=== PATIENT | female | born 1940 | race Caucasian/White ===

== ENCOUNTER 2016-09-21 08:16 | Inpatient (IN) | payer OTHER ==
[~2016-09-21] VITALS: Ht 170.2 cm; Wt 136.1 kg
[2016-09-21] VITALS (17 sets, daily range): BP systolic 88–136; BP diastolic 36–99
[2016-09-21] MEDS ORDERED: LORazepam Inj 2mg/ml 1ml ONE (08:21)
[2016-09-21] MEDS ORDERED: LORazepam Inj 2mg/ml 1ml IV ONE (08:30)
[2016-09-21 08:34] LABS: BASOPHILS % (AUTO) 0.4 % (0.0-2.0); EOSINOPHILS % (AUTO) 2.2 % (0.0-3.0); LYMPHOCYTES % (AUTO) 9.8 % (20.0-45.0); MEAN CORPUSCULAR HGB CONC 32.3 G/DL (32.0-36.0); MEAN CORPUSCULAR VOLUME 102 FL (80-99); MEAN PLATELET VOLUME 8.1 FL (6.5-10.1); MONOCYTES % (AUTO) 6.9 % (1.0-10.0); NEUTROPHILS % (AUTO) 80.6 % (45.0-75.0); PLATELET COUNT 316 K/UL (150-450); RED BLOOD COUNT 2.81 M/UL (4.20-5.40); WHITE BLOOD COUNT 8.6 K/UL (4.8-10.8)
[2016-09-21] MEDS ORDERED: Midazolam 2mg/2ml Inj ONE (08:37)
[2016-09-21] MEDS ORDERED: levETIRAcetam 500mg vial IV ONE (08:37)
[2016-09-21] MEDS ORDERED: Tubing IV Cassette IV ONE (08:48)
[2016-09-21] MEDS ORDERED: Tubing IV Secondary IV ONE (08:48)
[2016-09-21 08:53] LABS: INR 1.1 (0.9-1.1); PROTHROMBIN TIME 10.7 SEC (9.30-11.50)
[2016-09-21 08:55] LABS: APPEARANCE,URINE CLEAR; KETONES,URINE NEGATIVE (NEGATIVE); LEUKOCYTE ESTERASE ,URINE 1+ (NEGATIVE); NITRITE,URINE NEGATIVE (NEGATIVE); PH,URINE 7 (4.5-8.0); PROTEIN,URINE NEGATIVE (NEGATIVE); UROBILINOGEN,URINE NORMAL MG/DL (0.0-1.0)
[2016-09-21 08:58] LABS: ALANINE AMINOTRANSFERASE 22 U/L (3-33); ALBUMIN/GLOBULIN RATIO 0.7 (1.0-2.7); ANION GAP 8 (5-15); ASPARTATE AMINO TRANSFERASE 44 U/L (5-40); CALCIUM 9.8 mg/dL (8.6-10.2); CHLORIDE 91 mEQ/L (98-107); CREATININE 0.3 mg/dL (0.5-0.9); HEMOLYSIS 0; LIPASE 16 U/L (< 60); MAGNESIUM 1.7 mg/dL (1.7-2.5); PHOSPHORUS 3.3 mg/dL (2.5-4.8); POTASSIUM 2.8 mEQ/L (3.4-4.9); SODIUM 140 mEQ/L (135-145); TOTAL PROTEIN 7.2 g/dL (6.6-8.7); TROPONIN I < 0.30 ng/mL (<=0.30)
[2016-09-21 09:00] LABS: CARBON DIOXIDE 41 mEQ/L (20-30)
[2016-09-21] MEDS ORDERED: levETIRAcetam 1,000 MG in D5W 100 ML IVPB ONE (09:00)
[2016-09-21 09:01] LABS: BACTERIA,URINE OCCASIONAL /HPF; RBC,URINE 0-2 /HPF (0 - 2); SQUAMOUS EPITHELIAL CELL,UR OCCASIONAL /LPF (NONE/OCC)
[2016-09-21 09:09] LABS: CKMB < 1.5 ng/mL (< 3.8)
--- NOTE | 2016-09-21 09:55 | Diagnostic Imaging Report ---
Indication: Seizure Technique: Contiguous 5 mm thick transaxial imaging of the head obtained in a Siemens Sensation [address] scanner. Soft tissue and bone windows generated. Total Dose length Product (DLP): [address] Dose Index Volume (CTDIvol): 70.38 mGy Comparison: none Findings: There is mild prominence of the ventricles, basal cisterns, and cerebral sulci consistent with atrophy. Mild, nonspecific, white matter hypoattenuation is noted throughout the brain consistent with chronic small vessel disease. There is no midline shift, edema, acute hemorrhage, mass effect, or abnormal extra-axial fluid collections. There is unusual calvarial thinning along the parietal aspect of the cranial vault bilaterally. The diploic space is absent in these 2 areas, which show coverage of the brain by thin layer of cortical bone. The etiology of this finding is unknown but may be on the basis of previous remote surgery. Impression: No acute intracranial bleed, mass effect or edema. Mild atrophy of the brain. Nonspecific white matter hypoattenuation probably due to chronic small vessel disease. The CT scanner at [facility] is accredited by the [employer] and the scans are performed using protocols designed to limit radiation exposure to as low as reasonably achievable to attain images of sufficient resolution adequate for diagnostic evaluation.
--- NOTE | 2016-09-21 10:08 | Emergency Room Report ---
History of Present Illness General Chief Complaint: Seizure Source: Medical Record Present Illness HPI Patient was brought into the emergency room by paramedics from nursing facility patient was reported to have a seizure activity Reportedly the patient was given Ativan which did improve his symptoms However in route the patient was seizing paramedics were unable to obtain IV access And patient was brought in with active seizure No reports of vomiting or diarrhea Patient herself is not verbal Is on a ventilator Patient has a tracheostomy in place History of present illness is limited Unknown regarding fever or rash Allergies: Coded Allergies: No Known Allergies (Unverified , 09/21/16) Patient History Limited by: medical condition Past Medical History: see triage record Pertinent Family History: unable to obtain Reviewed Nursing Documentation: PMH: Agreed, PSxH: Agreed Nursing Documentation-PMH Past Medical History: No History, Except For Hx Cardiac Problems: Yes - STEMI anemia functional quadriplegia Hx COPD: Yes - trach Hx Cancer: Yes - breast cancer Hx Gastrointestinal Problems: Yes - G tube Hx Seizures: Yes - epilepsy Review of Systems All Other Systems: limited - Other than the ones mentioned in the history of present illness all others are reviewed however they do stay limited due to the patient's mental status Physical Exam Vital Signs Date Time Temp Pulse Resp B/P Pulse Ox O2 Delivery O2 Flow Rate FiO2 09/21/16 08:16 104 28 168/69 100 Mechanical Ventilator 09/21/16 08:16 40 09/21/16 08:30 99.0 Sp02 EP Interpretation: reviewed, normal General Appearance: severe distress - Patient has facial twitching and questionably active seizure, Head: normocephalic, atraumatic Eyes: bilateral eye PERRL - Sluggishly reactive ENT: normal pharynx, no angioedema Neck: supple, thyroid normal Respiratory: no retraction, no accessory muscle use, crackles - Diffusely in both lower lobes Cardiovascular #1: regular rate, rhythm, other - Dependent edema Gastrointestinal: soft, no mass, other - Patient has a drain tube on the right side, from a what appears to be likely cholecystectomy Musculoskeletal: other - Patient is unresponsive does not move extremities, there is no withdrawal from physical stimuli Neurologic: other - Significantly decreased GCS, patient does not follow commands, there is no obvious response to stimuli verbally or physically Skin: no rash, warm/dry Lymphatic: no adenopathy Procedures Critical Care Time Critical Care Time 40 minutes for multiple re\re evaluations vertical presentation Not including any procedural time Medical Decision Making Diagnostic Impression: Primary Impression: Status epilepticus Additional Impression: Hypokalemia ER Course Patient's presentation is concerning for status epilepticus patient is on a ventilator and therefore aggressive benzo intervention is made Patient also started on a keppra drip Patient's potassium level is significantly low Potentially causing some of the muscle skeletal pathology Patient has also observed to become controlled with medications However one sustained his blood pressure cuff or initiated with the patient stimulated again begins having the facial twitching CT head did not show any acute disease patient admitted for further inpatient care Labs Test 09/21/16 08:20 09/21/16 08:35 White Blood Count 8.6 K/UL (4.8-10.8) Red Blood Count 2.81 M/UL (4.20-5.40) Hemoglobin 9.3 G/DL (12.0-16.0) Hematocrit 28.7 % (37.0-47.0) Mean Corpuscular Volume 102 FL (80-99) Mean Corpuscular Hemoglobin 33.0 PG (27.0-31.0) Mean Corpuscular Hemoglobin Concent 32.3 G/DL (32.0-36.0) Red Cell Distribution Width 17.0 % (11.6-14.8) Platelet Count 316 K/UL (150-450) Mean Platelet Volume 8.1 FL (6.5-10.1) Neutrophils (%) (Auto) 80.6 % (45.0-75.0) Lymphocytes (%) (Auto) 9.8 % (20.0-45.0) Monocytes (%) (Auto) 6.9 % (1.0-10.0) Eosinophils (%) (Auto) 2.2 % (0.0-3.0) Basophils (%) (Auto) 0.4 % (0.0-2.0) Prothrombin Time 10.7 SEC (9.30-11.50) Prothromb Time International Ratio 1.1 (0.9-1.1) Activated Partial Thromboplast Time 30 SEC (23-33) Sodium Level 140 mEQ/L (135-145) Potassium Level 2.8 mEQ/L (3.4-4.9) Chloride Level 91 mEQ/L (98-107) Carbon Dioxide Level 41 mEQ/L (20-30) Anion Gap 8 (5-15) Blood Urea Nitrogen 9 mg/dL (7-23) Creatinine 0.3 mg/dL (0.5-0.9) Estimat Glomerular Filtration Rate mL/min (>60) Glucose Level 114 mg/dL (74-106) Lactic Acid Level 1.50 mmol/L (0.66-2.22) Calcium Level 9.8 mg/dL (8.6-10.2) Phosphorus Level 3.3 mg/dL (2.5-4.8) Magnesium Level 1.7 mg/dL (1.7-2.5) Total Bilirubin 0.3 mg/dL (0.0-1.2) Aspartate Amino Transf (AST/SGOT) 44 U/L (5-40) Alanine Aminotransferase (ALT/SGPT) 22 U/L (3-33) Alkaline Phosphatase 177 U/L (35-104) Total Creatine Kinase 89 U/L (26-140) Creatine Kinase MB < 1.5 ng/mL (< 3.8) Creatine Kinase MB Relative Index Troponin I < 0.30 ng/mL (<=0.30) Pro-B-Type Natriuretic Peptide 323 pg/mL (0-450) Total Protein 7.2 g/dL (6.6-8.7) Albumin 3.1 g/dL (3.5-5.2) Globulin 4.1 g/dL Albumin/Globulin Ratio 0.7 (1.0-2.7) Lipase 16 U/L (< 60) Urine Color Pale yellow Urine Appearance Clear Urine pH 7 (4.5-8.0) Urine Specific [place] 1.005 (1.005-1.035) Urine Protein Negative (NEGATIVE) Urine Glucose (UA) Negative (NEGATIVE) Urine Ketones Negative (NEGATIVE) Urine Occult Blood Negative (NEGATIVE) Urine Nitrite Negative (NEGATIVE) Urine Bilirubin Negative (NEGATIVE) Urine Urobilinogen Normal MG/DL (0.0-1.0) Urine Leukocyte Esterase 1+ (NEGATIVE) Urine RBC 0-2 /HPF (0 - 2) Urine WBC 2-4 /HPF (0 - 2) Urine Squamous Epithelial Cells Occasional /LPF Urine Bacteria Occasional /HPF (NONE) Rhythm Strip Diag. Results EP Interpretation: yes Rate: 77 Rhythm: NSR, no PVC's, no ectopy Chest X-Ray Diagnostic Results EP Interpretation: Yes Findings: no consolidation, no effusion, no pneumothorax, other - cardiomegaly Number of Views: 1 CT/MRI/US Diagnostic Results CT/MRI/US Diagnostic Results : Impression CT head no acute disease Last Vital Signs Date Time Temp Pulse Resp B/P Pulse Ox O2 Delivery O2 Flow Rate FiO2 09/21/16 09:50 107 45 Mechanical Ventilator 40 09/21/16 09:20 90/38 100 09/21/16 08:30 99.0 Status: improved Disposition: ADMITTED INPATIENT Condition: Critical Referrals: ANGELA DAVILA (PCP) LAURA GEORGES D.O. Sep 21, 2016 10:08
[2016-09-21] MEDS ORDERED: FEMARA2.5 MG ORAL (10:17)
[2016-09-21] MEDS ORDERED: NORCO 5-325 TA1 EAC1 GT (10:17)
[2016-09-21] MEDS ORDERED: NITROSTAT0.4 M2 SL (10:17)
[2016-09-21] MEDS ORDERED: VITAMIN D400 INTLU GT (10:17)
[2016-09-21] MEDS ORDERED: FUROSEMIDE20 M1 GT (10:17)
[2016-09-21] MEDS ORDERED: TYLENOL650 MG/20. GT (10:17)
[2016-09-21] MEDS ORDERED: LEVOTHYROXINE25 MCG GT (10:17)
[2016-09-21] MEDS ORDERED: BISACODYL10 M1 RC (10:17)
[2016-09-21] MEDS ORDERED: DUONEB 0.5-3(2.53 ML HHN (10:17)
[2016-09-21] MEDS ORDERED: LEVETIRACETAM500 MG GT (10:26)
[2016-09-21] MEDS ORDERED: DILANTIN50 MG GT (10:26)
[2016-09-21] MEDS ORDERED: IRON325 M2 GT (10:28)
[2016-09-21] MEDS ORDERED: Norco 5mg/325mg tab GT PRN (11:00)
[2016-09-21] MEDS ORDERED: Morphine Sulfate 2mg/ml Inj IVP PRN (11:00)
[2016-09-21] MEDS ORDERED: Miralax 17gm pkt ORAL PRN (11:00)
[2016-09-21] MEDS ORDERED: Zolpidem 5mg tab ORAL PRN (11:00)
[2016-09-21] MEDS ORDERED: Mylanta II UD 30ml ORAL PRN (11:00)
--- NOTE | 2016-09-21 11:37 | Neurology Progress Note ---
Objective Physical Exam Last Vital Signs Date Time Temp Pulse Resp B/P Pulse Ox O2 Delivery O2 Flow Rate FiO2 09/21/16 10:55 99.0 91 15 109/45 100 Mechanical Ventilator 40 Laboratory Tests Test 09/21/16 08:20 09/21/16 08:35 White Blood Count 8.6 K/UL (4.8-10.8) Red Blood Count 2.81 M/UL (4.20-5.40) L Hemoglobin 9.3 G/DL (12.0-16.0) L Hematocrit 28.7 % (37.0-47.0) L Mean Corpuscular Volume 102 FL (80-99) H Mean Corpuscular Hemoglobin 33.0 PG (27.0-31.0) H Mean Corpuscular Hemoglobin Concent 32.3 G/DL (32.0-36.0) Red Cell Distribution Width 17.0 % (11.6-14.8) H Platelet Count 316 K/UL (150-450) Mean Platelet Volume 8.1 FL (6.5-10.1) Neutrophils (%) (Auto) 80.6 % (45.0-75.0) H Lymphocytes (%) (Auto) 9.8 % (20.0-45.0) L Monocytes (%) (Auto) 6.9 % (1.0-10.0) Eosinophils (%) (Auto) 2.2 % (0.0-3.0) Basophils (%) (Auto) 0.4 % (0.0-2.0) Prothrombin Time 10.7 SEC (9.30-11.50) Prothromb Time International Ratio 1.1 (0.9-1.1) Activated Partial Thromboplast Time 30 SEC (23-33) Sodium Level 140 mEQ/L (135-145) Potassium Level 2.8 mEQ/L (3.4-4.9) L Chloride Level 91 mEQ/L (98-107) L Carbon Dioxide Level 41 mEQ/L (20-30) *H Anion Gap 8 (5-15) Blood Urea Nitrogen 9 mg/dL (7-23) Creatinine 0.3 mg/dL (0.5-0.9) L Estimat Glomerular Filtration Rate mL/min (>60) Glucose Level 114 mg/dL (74-106) H Lactic Acid Level 1.50 mmol/L (0.66-2.22) Calcium Level 9.8 mg/dL (8.6-10.2) Phosphorus Level 3.3 mg/dL (2.5-4.8) Magnesium Level 1.7 mg/dL (1.7-2.5) Total Bilirubin 0.3 mg/dL (0.0-1.2) Aspartate Amino Transf (AST/SGOT) 44 U/L (5-40) H Alanine Aminotransferase (ALT/SGPT) 22 U/L (3-33) Alkaline Phosphatase 177 U/L (35-104) H Total Creatine Kinase 89 U/L (26-140) Creatine Kinase MB < 1.5 ng/mL (< 3.8) Creatine Kinase MB Relative Index Troponin I < 0.30 ng/mL (<=0.30) Pro-B-Type Natriuretic Peptide 323 pg/mL (0-450) Total Protein 7.2 g/dL (6.6-8.7) Albumin 3.1 g/dL (3.5-5.2) L Globulin 4.1 g/dL Albumin/Globulin Ratio 0.7 (1.0-2.7) L Lipase 16 U/L (< 60) Phenytoin (Dilantin) Level Pending Urine Color Pale yellow Urine Appearance Clear Urine pH 7 (4.5-8.0) Urine Specific [place] 1.005 (1.005-1.035) Urine Protein Negative (NEGATIVE) Urine Glucose (UA) Negative (NEGATIVE) Urine Ketones Negative (NEGATIVE) Urine Occult Blood Negative (NEGATIVE) Urine Nitrite Negative (NEGATIVE) Urine Bilirubin Negative (NEGATIVE) Urine Urobilinogen Normal MG/DL (0.0-1.0) Urine Leukocyte Esterase 1+ (NEGATIVE) H Urine RBC 0-2 /HPF (0 - 2) Urine WBC 2-4 /HPF (0 - 2) Urine Squamous Epithelial Cells Occasional /LPF Urine Bacteria Occasional /HPF (NONE) Impression/Recommendations Problems: (1) Status epilepticus Recommendations #[id number] keppra 2000mg bid IV dilantin 32346pf slow drip now then 200mg bid maintanence ativan 2mg q1hr prn EEG MARIO CARMONA Sep 21, 2016 11:37
[2016-09-21] MEDS: LORazepam Inj 2mg/ml 1ml IV PRN ×3 (12:16→22:16)
[2016-09-21] MEDS ORDERED: levETIRAcetam 1,000 MG in D5W 110 ML IV ONE (13:00)
[2016-09-21] MEDS: KCl 10% 40mEq/30ml liquid GT SCH ×2 (13:00→17:29)
[2016-09-21] MEDS ORDERED: Lidocaine 1% Plain 30 ml INJ ONE (14:08)
[2016-09-21] MEDS ORDERED: Sodium Bicarbonate 8.4% 50ml Inj IV ONE (14:08)
[2016-09-21] MEDS ORDERED: Heparin 2000 units/Ns 1000ml INJ ONE (14:08)
--- NOTE | 2016-09-21 15:40 | History and Physical ---
History of Present Illness General Date patient seen: Sep 21, 2016 Reason for Hospitalization: Seizure Present Illness HPI 76 year olf female with vegetative state, chronic trach, seizures, retirement resident was brought into the emergency room by paramedics for reported seizure activity Reportedly the patient was given Ativan which did improve his symptoms However in route the patient was seizing paramedics were unable to obtain IV access And patient was brought in with active seizure to ER. Pt was diagnosed to have status epilepticus and admitted to ICU. the entire history is taken from the chart. Pt no able to give any history. Allergies: Coded Allergies: PEANUT (Verified Allergy, Unknown, 09/22/16) Medication History Scheduled Furosemide* (Lasix*), 20 MG GT DAILY, (Reported) Ipratropium/Albuterol Sulfate (DuoNeb 0.5-3(2.5)mg/3ml), 3 ML HHN EVERY 8 HOURS, (Reported) Letrozole (Femara), 2.5 MG ORAL DAILY, (Reported) Levetiracetam* (Levetiracetam*), 1,500 MG GT TWICE A DAY, (Reported) Levothyroxine Sodium* (Levothyroxine Sodium*), 25 MCG GT DAILY, (Reported) Phenytoin (Dilantin), 150 MG GT BID, (Reported) Vitamin D (Vitamin D3), 2,000 UNITS GT DAILY, (Reported) Scheduled PRN Acetaminophen (Acetaminophen), 650 MG GT Q6H PRN for Prn Headache/Temp > 101, ( Reported) Hydrocodone Bit/Acetaminophen 5-325* (Narka 5-325 Tablet*), 1 TAB GT Q4H PRN for For Pain, (Reported) Miscellaneous Medications Bisacodyl (Bisacodyl), 10 MG RC, (Reported) Ferrous Sulfate (Iron), 325 MG GT, (Reported) Nitroglycerin (Nitrostat), 0.4 MG SL, (Reported) Patient History Limited by: medical condition History Provided By: Medical Record Healthcare decision maker kassie aguilar Resuscitation status Full Code Advanced Directive on File No Past Medical/Surgical History Past Medical/Surgical History: (1) Vegetative state (2) Chronic respiratory failure (3) Feeding by G-tube (4) Cholecystostomy care Review of Systems All Other Systems: negative except mentioned in HPI Physical Exam General Appearance: WD/WN Lines, tubes and drains: peripheral HEENT: normocephalic, atraumatic Neck: non-tender, normal alignment Respiratory/Chest: chest wall non-tender, lungs clear Cardiovascular/Chest: normal peripheral pulses, normal rate Abdomen: normal bowel sounds, non tender Genitourinary/Rectal: normal genital exam, normal rectal exam Extremities: normal range of motion, normal inspection Neurologic: calciminer II-XII grossly normal Last 24 Hour Vital Signs Date Time Temp Pulse Resp B/P Pulse Ox O2 Delivery O2 Flow Rate FiO2 09/21/16 15:00 87 16 102/52 100 Mechanical Ventilator 40 09/21/16 14:00 81 15 92/44 100 Mechanical Ventilator 40 09/21/16 13:00 85 15 90/45 100 Mechanical Ventilator 40 09/21/16 12:59 40 09/21/16 12:56 40 09/21/16 12:49 95 09/21/16 12:00 98.8 88 15 88/44 100 Mechanical Ventilator 40 09/21/16 11:00 91 15 89/42 100 Mechanical Ventilator 40 09/21/16 10:55 99.0 91 15 109/45 100 Mechanical Ventilator 40 09/21/16 10:00 91 15 109/45 100 Mechanical Ventilator 40 09/21/16 09:50 107 45 Mechanical Ventilator 40 09/21/16 09:46 107 27 Mechanical Ventilator 40 09/21/16 09:20 82 27 40 09/21/16 09:20 81 16 90/38 100 Mechanical Ventilator 40 09/21/16 09:20 40 09/21/16 09:00 9 16 95/36 96 Mechanical Ventilator 40 09/21/16 08:30 99.0 99 16 91/38 95 Mechanical Ventilator 40 09/21/16 08:16 104 28 Mechanical Ventilator 40 09/21/16 08:16 40 09/21/16 08:16 104 28 168/69 100 Mechanical Ventilator 09/21/16 08:10 107 27 40 Laboratory Tests Test 09/21/16 08:20 09/21/16 08:35 White Blood Count 8.6 K/UL (4.8-10.8) Red Blood Count 2.81 M/UL (4.20-5.40) L Hemoglobin 9.3 G/DL (12.0-16.0) L Hematocrit 28.7 % (37.0-47.0) L Mean Corpuscular Volume 102 FL (80-99) H Mean Corpuscular Hemoglobin 33.0 PG (27.0-31.0) H Mean Corpuscular Hemoglobin Concent 32.3 G/DL (32.0-36.0) Red Cell Distribution Width 17.0 % (11.6-14.8) H Platelet Count 316 K/UL (150-450) Mean Platelet Volume 8.1 FL (6.5-10.1) Neutrophils (%) (Auto) 80.6 % (45.0-75.0) H Lymphocytes (%) (Auto) 9.8 % (20.0-45.0) L Monocytes (%) (Auto) 6.9 % (1.0-10.0) Eosinophils (%) (Auto) 2.2 % (0.0-3.0) Basophils (%) (Auto) 0.4 % (0.0-2.0) Prothrombin Time 10.7 SEC (9.30-11.50) Prothromb Time International Ratio 1.1 (0.9-1.1) Activated Partial Thromboplast Time 30 SEC (23-33) Sodium Level 140 mEQ/L (135-145) Potassium Level 2.8 mEQ/L (3.4-4.9) L Chloride Level 91 mEQ/L (98-107) L Carbon Dioxide Level 41 mEQ/L (20-30) *H Anion Gap 8 (5-15) Blood Urea Nitrogen 9 mg/dL (7-23) Creatinine 0.3 mg/dL (0.5-0.9) L Estimat Glomerular Filtration Rate mL/min (>60) Glucose Level 114 mg/dL (74-106) H Lactic Acid Level 1.50 mmol/L (0.66-2.22) Calcium Level 9.8 mg/dL (8.6-10.2) Phosphorus Level 3.3 mg/dL (2.5-4.8) Magnesium Level 1.7 mg/dL (1.7-2.5) Total Bilirubin 0.3 mg/dL (0.0-1.2) Aspartate Amino Transf (AST/SGOT) 44 U/L (5-40) H Alanine Aminotransferase (ALT/SGPT) 22 U/L (3-33) Alkaline Phosphatase 177 U/L (35-104) H Total Creatine Kinase 89 U/L (26-140) Creatine Kinase MB < 1.5 ng/mL (< 3.8) Creatine Kinase MB Relative Index Troponin I < 0.30 ng/mL (<=0.30) Pro-B-Type Natriuretic Peptide 323 pg/mL (0-450) Total Protein 7.2 g/dL (6.6-8.7) Albumin 3.1 g/dL (3.5-5.2) L Globulin 4.1 g/dL Albumin/Globulin Ratio 0.7 (1.0-2.7) L Lipase 16 U/L (< 60) Phenytoin (Dilantin) Level 4.7 ug/mL (10-20) L Urine Color Pale yellow Urine Appearance Clear Urine pH 7 (4.5-8.0) Urine Specific [place] 1.005 (1.005-1.035) Urine Protein Negative (NEGATIVE) Urine Glucose (UA) Negative (NEGATIVE) Urine Ketones Negative (NEGATIVE) Urine Occult Blood Negative (NEGATIVE) Urine Nitrite Negative (NEGATIVE) Urine Bilirubin Negative (NEGATIVE) Urine Urobilinogen Normal MG/DL (0.0-1.0) Urine Leukocyte Esterase 1+ (NEGATIVE) H Urine RBC 0-2 /HPF (0 - 2) Urine WBC 2-4 /HPF (0 - 2) Urine Squamous Epithelial Cells Occasional /LPF Urine Bacteria Occasional /HPF (NONE) Height (Feet): 5 Height (Inches): 7.00 Weight (Pounds): 300 Medications Current Medications Medications (Trade) Dose Ordered Sig/Boubacar Route PRN Reason Start Time Stop Time Status Last Admin Dose Admin Acetaminophen (Tylenol) 650 mg Q4H PRN ORAL fever 09/21/16 11:00 10/21/16 10:59 Acetaminophen/ Hydrocodone Bitart ([place]ark[place] 5/325) 1 tab Q4H PRN GT Moderate Pain (Pain Scale 4-6) 09/21/16 11:00 09/28/16 10:59 Al Hydroxide/Mg Hydroxide (Mylanta II) 30 ml Q6H PRN ORAL dyspepsia 09/21/16 11:00 10/21/16 10:59 Dextrose (Dextrose 50%) STAT PRN IV Hypoglycemia 09/21/16 11:00 10/21/16 10:59 Heparin Sodium (Porcine) (Heparin 5000 units/ml) 5,000 units EVERY 12 HOURS SUBQ 09/21/16 21:00 10/21/16 20:59 Levetiracetam (Keppra) 2,000 mg TWICE A DAY GT 09/21/16 18:00 10/24/16 17:59 Levothyroxine Sodium (Synthroid) 25 mcg DAILY GT 09/22/16 09:00 10/22/16 08:59 Lorazepam (Ativan 2mg/ml 1ml) 2 mg EVERY HOUR PRN IV seizures 09/21/16 11:00 09/28/16 10:59 09/21/16 12:16 Morphine Sulfate (Morphine Sulfate) 1 mg EVERY 4 HOURS PRN IVP Severe Pain (Pain Scale 7-10) 09/21/16 11:00 09/28/16 10:59 Ondansetron HCl (Zofran) 4 mg Q6H PRN IVP Nausea & Vomiting 09/21/16 11:00 10/21/16 10:59 Phenytoin (Dilantin) 150 mg BID GT 09/21/16 18:00 10/21/16 17:59 Polyethylene Glycol (Miralax) 17 gm HSPRN PRN ORAL Constipation 09/21/16 11:00 10/21/16 10:59 Potassium Chloride (KCl 10% 40mEq Oral solution) 40 meq Q4H GT 09/21/16 13:00 09/21/16 17:01 09/21/16 13:00 Zolpidem Tartrate (Ambien) 5 mg HSPRN PRN ORAL Insomnia 09/21/16 11:00 10/21/16 10:59 Assessment/Plan Problem List: (1) Status epilepticus ICD Codes: G40.901 - Epilepsy, unspecified, not intractable, with status epilepticus SNOMED: 407680419 (2) Aspiration pneumonia ICD Codes: J69.0 - Pneumonitis due to inhalation of food and vomit SNOMED: 816710371 (3) Chronic respiratory failure ICD Codes: J96.10 - Chronic respiratory failure, unspecified whether with hypoxia or hypercapnia SNOMED: 67915711 (4) Feeding by G-tube ICD Codes: Z93.1 - Gastrostomy status SNOMED: 794420974, 394571150 (5) Cholecystostomy care ICD Codes: Z43.4 - Encounter for attention to other artificial openings of digestive tract SNOMED: 877830816 (6) Vegetative state ICD Codes: R40.3 - Persistent vegetative state SNOMED: 64458074, 073012442 Respiratory: monitor respiratory rate, adjust FIO2 Cardiac: continue to monitor HR/BP Renal: check electrolytes Infectious Disease: check cultures Gastrointestinal: continue feedings/current rate Endocrine: monitor blood sugar, start insulin drip Neurologic: PRN Ativan, PRN Morphine, other - Dr Charlton to see the patient Prophylaxis: Protonix, Heparin Disposition: keep in ICU 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: occupational hygienist Discussed with: nurses, consultants, case mgr ANGELA DAVILA Sep 21, 2016 15:40
--- NOTE | 2016-09-21 16:12 | Diagnostic Imaging Report ---
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 The left upper extremity was prepped with alcohol. All elements of maximal sterile barrier technique were followed including usage of a cap, mask, sterile gown, sterile gloves, hand hygiene and a large sterile sheet. Sonographic evaluation of the upper extremity was performed demonstrating a patent and compressible basilic vein. Access was obtained under real-time ultrasound guidance and digital image was saved and archived. An .018 wire was introduced. Needle exchanged for a 5 [place] peel-away sheath. Measurements were obtained. A 5 [place] dual-lumen Power PICC line catheter was cut to 40 cm and introduced over the wire. Peel-away sheath and wire were removed.Catheter was secured to the skin using 2-0 Prolene suture. Both ports aspirate and flush easily. Post procedure chest x-ray demonstrates good position of the PICC line catheter within the SVC. Impression: Successful placement of an upper extremity PICC line catheter
[2016-09-21] MEDS: levETIRAcetam 500mg/5ml Liquid GT SCH (17:29)
[2016-09-21] MEDS: Phenytoin Susp 100mg/4ml GT SCH (17:30)
[2016-09-21] MEDS ORDERED: levETIRAcetam 500mg/5ml Liquid GT SCH (18:00)
--- NOTE | 2016-09-21 19:58 | Consultation ---
DATE OF CONSULTATION: 09/21/2016 REFERRING PHYSICIAN: Savi Rodriguez M.D. HISTORY OF PRESENT ILLNESS: This 76 years old female is seen in neurological consultation to evaluate the ongoing status epilepticus. The patient has seizure disorder and was found to have generalized seizure activities while at the nursing facility. Reportedly, she was given Ativan and felt temporary improvement, but with continuous seizures, she was brought to the emergency room. En route, she was still seizing due to inability to obtain IV access. At the emergency room, the patient was found to be in active seizures, representing status epilepticus. Her vital signs included blood pressure 158/69, heart rate of 104, but pulse oximetry was 100% and temperature 99.4. The patient was started on 1000 mg of Keppra drip. A stat CT of the brain was obtained, revealed mild diffuse atrophy. No acute pathology. Laboratory work included a CBC study with hemoglobin 9.3, hematocrit 28.7, elevated MCV and MCH. Coagulation panel was normal. Urinalysis was unremarkable. Chemistry panel with carbon dioxide of 41 and potassium 2.8. Lactic acid 1.50 and albumin 3.1. Normal troponins and CPK. According to available records, the patient was hospitalized at an outside facility in August of 2016, where she was treated after developing acute on chronic respiratory failure with hypoxia and hypercapnia. She had acute anoxic encephalopathy with "functional quadriplegia." She had a tracheostomy in place and PEG in place. The patient had signs of septic shock due to pneumonia and pyelonephritis. She was on replacement therapy for hypothyroidism. Her EEG revealed "epileptiform discharges, but no seizures." PAST MEDICAL HISTORY: History of cholecystectomy, hypothyroidism, morbid obesity with a BMI of 45-49, history of COPD, and history of seizure disorder. MEDICATIONS: Treatment prior to admission included furosemide, [place] as needed, albuterol, Femara, Keppra 1500 mg b.i.d., levothyroxine, phenytoin 150 mg b.i.d., and vitamin D. The patient has a history of a breast CA and maintained on Femara. REVIEW OF SYSTEMS: Unable to obtain due the patient's status. FAMILY HISTORY: Unavailable. SOCIAL HISTORY: She is a resident of nursing facility. PHYSICAL EXAMINATION: GENERAL: A well-developed, but morbidly obese lady with tracheostomy, on respirator. VITAL SIGNS: Blood pressure 138/80 and temperature 99.1. HEENT: Head is normocephalic. There is no evidence of trauma. Eyes, ears, and throat are clear. MUSCULOSKELETAL: There are no deformities noted. Peripheral pulses 1+ and symmetric. Mental status - the patient is unresponsive. She has continuous rhythmic jaw jerking. Motor examination - flaccid in all limbs. Deep tendon reflexes unobtainable. Plantar response is mute. Sensory exam - no response to pin stimulation. IMPRESSION: 1. Status epilepticus. 2. Chronic seizure disorder, exacerbation. 3. Post anoxic encephalopathy. 4. Chronic obstructive pulmonary disease, currently with respiratory failure. 5. History of breast cancer. 6. Hypothyroidism. 7. Morbid obesity. RECOMMENDATIONS: 1. Stat Ativan 2 mg push. 2. Extra Keppra 1000 mg IV. 3. Restart on Dilantin 1000 mg loading dose, recheck her baseline Dilantin level, recheck the level in a.m. 4. Continue with ICU monitoring and treatment. Thank you for allowing me to see this interesting patient in neurological consultation. Aryan Charlton M.D. DR: DELLA JOB#: [id number] CC:
[2016-09-21] MEDS: Heparin 5000 units/ml inj SUBQ SCH (20:31)
[2016-09-21] MEDS ORDERED: D5W IV ONE (23:00)
[2016-09-21] MEDS ORDERED: VALPROATE SODIUM IV ONE (23:00)
[2016-09-22] VITALS (17 sets, daily range): BP systolic 92–137; BP diastolic 40–80
[2016-09-22] MEDS: LORazepam Inj 2mg/ml 1ml IV PRN ×4 (00:06→07:51)
[2016-09-22 05:36] LABS: MEAN CORPUSCULAR HGB CONC 32.1 G/DL (32.0-36.0); MEAN CORPUSCULAR VOLUME 106 FL (80-99); MEAN PLATELET VOLUME 7.9 FL (6.5-10.1); PLATELET COUNT 272 K/UL (150-450); RED BLOOD COUNT 2.28 M/UL (4.20-5.40); RED CELL DISTRIBUTION WIDTH 17.5 % (11.6-14.8); WHITE BLOOD COUNT 15.4 K/UL (4.8-10.8)
[2016-09-22 06:11] LABS: ALANINE AMINOTRANSFERASE 21 U/L (3-33); ALBUMIN/GLOBULIN RATIO 0.6 (1.0-2.7); ANION GAP 11 (5-15); ASPARTATE AMINO TRANSFERASE 50 U/L (5-40); CALCIUM 8.8 mg/dL (8.6-10.2); CARBON DIOXIDE 35 mEQ/L (20-30); CHLORIDE 95 mEQ/L (98-107); CREATININE 0.3 mg/dL (0.5-0.9); HEMOLYSIS 0; MAGNESIUM 1.6 mg/dL (1.7-2.5); PHOSPHORUS 2.1 mg/dL (2.5-4.8); SODIUM 141 mEQ/L (135-145)
[2016-09-22] MEDS ORDERED: Levothyroxine 25mcg tab GT SCH ×2 (06:30→09:00)
[2016-09-22] MEDS: Phenytoin Susp 100mg/4ml GT SCH ×2 (08:30→20:21)
[2016-09-22] MEDS: Heparin 5000 units/ml inj SUBQ SCH ×2 (08:32→20:28)
[2016-09-22] MEDS ORDERED: VALPROATE SODIUM IV SCH (09:00)
[2016-09-22] MEDS ORDERED: D5W IV SCH (09:00)
[2016-09-22 09:31] LABS: MEAN CORPUSCULAR HEMOGLOBIN 33.3 PG (27.0-31.0); MEAN CORPUSCULAR HGB CONC 32.3 G/DL (32.0-36.0); MEAN CORPUSCULAR VOLUME 103 FL (80-99); MEAN PLATELET VOLUME 8.6 FL (6.5-10.1); PLATELET COUNT 284 K/UL (150-450); RED BLOOD COUNT 2.28 M/UL (4.20-5.40); RED CELL DISTRIBUTION WIDTH 17.5 % (11.6-14.8)
[2016-09-22 09:34] LABS: ABG PCO2 50.3 mmHg (35.0-45.0)
[2016-09-22 09:35] LABS: ABG ALLEN TEST POSITIVE; ABG BASE EXCESS 13.1
[2016-09-22 09:42] LABS: ANISOCYTOSIS 1+; BAND NEUTROPHILS % (MANUAL) 11 % (0-8); BASOPHILS % (MANUAL) 0 % (0-2); EOSINOPHILS % (MANUAL) 0 % (0-3); HYPOCHROMASIA 1+; LYMPHOCYTES % (MANUAL) 5 % (20-45); MACROCYTES 1+; NEUTROPHILS % (MANUAL) 78 % (45-75); PLATELET ESTIMATE ADEQUATE; PLATELET MORPHOLOGY NORMAL; TOTAL CELLS COUNTED 100
[2016-09-22 09:43] LABS: ANION GAP 9 (5-15); CALCIUM 8.9 mg/dL (8.6-10.2); CARBON DIOXIDE 37 mEQ/L (20-30); CHLORIDE 93 mEQ/L (98-107); CREATININE 0.3 mg/dL (0.5-0.9); HEMOLYSIS 0; POTASSIUM 2.9 mEQ/L (3.4-4.9); SODIUM 139 mEQ/L (135-145)
[2016-09-22 09:46] LABS: POLYCHROMASIA OCCASIONAL
[2016-09-22 10:17] LABS: ANISOCYTOSIS 1+; BAND NEUTROPHILS % (MANUAL) 12 % (0-8); BASOPHILS % (MANUAL) 0 % (0-2); EOSINOPHILS % (MANUAL) 1 % (0-3); HYPOCHROMASIA 1+; LYMPHOCYTES % (MANUAL) 8 % (20-45); MACROCYTES 1+; NEUTROPHILS % (MANUAL) 70 % (45-75); PLATELET ESTIMATE ADEQUATE; PLATELET MORPHOLOGY NORMAL; POLYCHROMASIA OCCASIONAL; TOTAL CELLS COUNTED 100
[2016-09-22] MEDS: levETIRAcetam 500mg/5ml Liquid GT SCH ×2 (10:19→20:32)
[2016-09-22] MEDS ORDERED: Amikacin Rx to dose MISC PRN ×2 (11:30→16:00)
--- NOTE | 2016-09-22 11:31 | Pulmonolgy Critical Care Note ---
Critical Care - Asmt/Plan Problems: (1) Aspiration pneumonia (2) Status epilepticus (3) Seizure (4) Hypophosphatemia (5) Chronic respiratory failure (6) Hypokalemia (7) Cholecystostomy care (8) Feeding by G-tube (9) Vegetative state Respiratory: monitor respiratory rate, adjust FIO2, CXR Cardiac: continue to monitor HR/BP Renal: F/U I&O, keep IV fluid, check electrolytes Infectious Disease: check cultures, continue antibiotics Gastrointestinal: continue feedings/current rate Endocrine: monitor blood sugar, check TSH Neurologic: PRN Ativan, PRN Morphine Affect: PRN ativan Prophylaxis: Protonix Disposition: transfer to [facility] 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 Discussed with: nurses, consultants, 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 - Objective Last 24 Hour Vital Signs Date Time Temp Pulse Resp B/P Pulse Ox O2 Delivery O2 Flow Rate FiO2 09/22/16 10:00 109 19 121/55 98 Mechanical Ventilator 40 09/22/16 09:29 110 18 40 09/22/16 09:00 100.8 112 21 97/45 98 Mechanical Ventilator 40 09/22/16 08:52 101.6 09/22/16 08:00 40 09/22/16 08:00 101.6 114 18 120/49 97 Mechanical Ventilator 40 09/22/16 08:00 112 09/22/16 07:25 111 21 40 09/22/16 07:00 113 20 92/40 100 Mechanical Ventilator 40 09/22/16 06:00 115 20 92/45 100 Mechanical Ventilator 40 09/22/16 05:01 118 19 40 09/22/16 05:00 115 20 106/52 100 Mechanical Ventilator 40 09/22/16 04:00 114 09/22/16 04:00 40 09/22/16 04:00 101.1 115 20 96/44 100 Mechanical Ventilator 40 09/22/16 03:05 117 24 40 09/22/16 03:00 117 20 115/46 100 Mechanical Ventilator 40 09/22/16 02:00 117 20 118/49 100 Mechanical Ventilator 40 09/22/16 01:00 123 20 102/41 100 Mechanical Ventilator 40 09/22/16 00:39 124 25 40 09/22/16 00:00 40 09/22/16 00:00 122 09/22/16 00:00 101.7 125 20 109/45 100 Mechanical Ventilator 40 09/21/16 23:03 124 20 123/58 100 Mechanical Ventilator 40 09/21/16 22:51 126 28 40 09/21/16 22:00 122 20 124/91 100 Mechanical Ventilator 40 09/21/16 21:06 111 24 40 09/21/16 21:00 110 19 129/57 100 Mechanical Ventilator 40 09/21/16 20:00 99.0 100 19 117/99 100 Mechanical Ventilator 40 09/21/16 20:00 96 09/21/16 19:06 97 20 40 09/21/16 19:00 92 20 100/48 100 Mechanical Ventilator 40 09/21/16 18:00 97 20 136/49 100 Mechanical Ventilator 40 09/21/16 17:05 94 22 40 09/21/16 17:00 90 20 108/39 100 Mechanical Ventilator 40 09/21/16 16:04 81 14 40 09/21/16 16:00 86 09/21/16 16:00 40 09/21/16 16:00 97.8 81 14 96/41 100 Mechanical Ventilator 40 09/21/16 15:00 87 16 102/52 100 Mechanical Ventilator 40 09/21/16 14:00 81 15 92/44 100 Mechanical Ventilator 40 09/21/16 13:00 85 15 90/45 100 Mechanical Ventilator 40 09/21/16 12:59 40 09/21/16 12:56 40 09/21/16 12:49 95 09/21/16 12:00 98.8 88 15 88/44 100 Mechanical Ventilator 40 Status: awake Condition: critical HEENT: normocephalic Neck: full ROM Lungs: clear, chest wall tender Heart: HR/BP stable, HR/BP unstable Abdomen: soft, non-tender Critical Care - Subjective ROS Limited/Unobtainable: No ICU Day: 2 Condition: critical FI02: 40 Vent Support Breath Rate: 12 Vent Support Mode: AC Vent Tidal Volume: 500 Sputum Amount: Scant PEEP: 5.0 PIP: 23 Fluids: vital 1f 1.2 I&O: Intake and Output 09/21/16 09/22/16 19:00 07:00 Intake Total 1530 ml 1070 ml Output Total 1220 ml 700 ml Balance 310 ml 370 ml Intake Oral 0 ml Free Water 60 ml 320 ml IV Total 1220 ml Other 250 ml 750 ml Output Urine Total 1210 ml 685 ml Gastric Drainage Total 15 ml Drainage Total 10 ml # Bowel Movements 2 CXR: RLL infitlrate Labs: Laboratory Tests Test 09/22/16 05:00 09/22/16 08:45 09/22/16 09:20 White Blood Count 15.4 K/UL (4.8-10.8) #H 15.0 K/UL (4.8-10.8) H Red Blood Count 2.28 M/UL (4.20-5.40) L 2.28 M/UL (4.20-5.40) L Hemoglobin 7.7 G/DL (12.0-16.0) L 7.6 G/DL (12.0-16.0) L Hematocrit 24.1 % (37.0-47.0) L 23.5 % (37.0-47.0) L Mean Corpuscular Volume 106 FL (80-99) H 103 FL (80-99) H Mean Corpuscular Hemoglobin 34.0 PG (27.0-31.0) H 33.3 PG (27.0-31.0) H Mean Corpuscular Hemoglobin Concent 32.1 G/DL (32.0-36.0) 32.3 G/DL (32.0-36.0) Red Cell Distribution Width 17.5 % (11.6-14.8) H 17.5 % (11.6-14.8) H Platelet Count 272 K/UL (150-450) 284 K/UL (150-450) Mean Platelet Volume 7.9 FL (6.5-10.1) 8.6 FL (6.5-10.1) Neutrophils (%) (Auto) % (45.0-75.0) % (45.0-75.0) Lymphocytes (%) (Auto) % (20.0-45.0) % (20.0-45.0) Monocytes (%) (Auto) % (1.0-10.0) % (1.0-10.0) Eosinophils (%) (Auto) % (0.0-3.0) % (0.0-3.0) Basophils (%) (Auto) % (0.0-2.0) % (0.0-2.0) Differential Total Cells Counted 100 100 Neutrophils % (Manual) 78 % (45-75) H 70 % (45-75) Lymphocytes % (Manual) 5 % (20-45) L 8 % (20-45) L Monocytes % (Manual) 6 % (1-10) 9 % (1-10) Eosinophils % (Manual) 0 % (0-3) 1 % (0-3) Basophils % (Manual) 0 % (0-2) 0 % (0-2) Band Neutrophils 11 % (0-8) H 12 % (0-8) H Platelet Estimate Adequate Adequate Platelet Morphology Normal Normal Polychromasia Occasional Occasional Hypochromasia 1+ 1+ Anisocytosis 1+ 1+ Macrocytosis 1+ 1+ Sodium Level 141 mEQ/L (135-145) 139 mEQ/L (135-145) Potassium Level 3.0 mEQ/L (3.4-4.9) L 2.9 mEQ/L (3.4-4.9) L Chloride Level 95 mEQ/L (98-107) L 93 mEQ/L (98-107) L Carbon Dioxide Level 35 mEQ/L (20-30) H 37 mEQ/L (20-30) H Anion Gap 11 (5-15) 9 (5-15) Blood Urea Nitrogen 9 mg/dL (7-23) 10 mg/dL (7-23) Creatinine 0.3 mg/dL (0.5-0.9) L 0.3 mg/dL (0.5-0.9) L Estimat Glomerular Filtration Rate mL/min (>60) mL/min (>60) Glucose Level 112 mg/dL (74-106) H 124 mg/dL (74-106) H Calcium Level 8.8 mg/dL (8.6-10.2) 8.9 mg/dL (8.6-10.2) Phosphorus Level 2.1 mg/dL (2.5-4.8) L Magnesium Level 1.6 mg/dL (1.7-2.5) L Total Bilirubin 0.3 mg/dL (0.0-1.2) Aspartate Amino Transf (AST/SGOT) 50 U/L (5-40) H Alanine Aminotransferase (ALT/SGPT) 21 U/L (3-33) Alkaline Phosphatase 165 U/L (35-104) H Total Protein 6.0 g/dL (6.6-8.7) L Albumin 2.4 g/dL (3.5-5.2) L Globulin 3.6 g/dL Albumin/Globulin Ratio 0.6 (1.0-2.7) L Phenytoin (Dilantin) Level 3.9 ug/mL (10-20) L Valproic Acid (Depakene) Level 34 ug/mL (50-100) L Arterial Blood pH 7.490 (7.350-7.450) Arterial Blood Partial Pressure CO2 50.3 mmHg (35.0-45.0) H Arterial Blood Partial Pressure O2 82.5 mmHg (75.0-100.0) Arterial Blood HCO3 37.8 mmol/L (22.0-26.0) H Arterial Blood Oxygen Saturation 95.6 % (92.0-98.0) Arterial Blood Base Excess 13.1 Best Test Positive ANGELA DAVILA Sep 22, 2016 11:31
--- NOTE | 2016-09-22 12:05 | Diagnostic Imaging Report ---
Indication: Dyspnea Comparison: 09/21/2016 A single view chest radiograph was obtained. Findings: Cardiomegaly is stable. Tracheostomy and PICC line are present. The PICC line tip is in the SVC. Mild congestion again noted. Impression: PICC line in good position. CHF
[2016-09-22] MEDS ORDERED: Vancomycin 1250mg/D5W 275ml IVPB SCH ×2 (13:00)
[2016-09-22] MEDS ORDERED: Piperacillin/Tazobactam 3.375 GM in NS 110 ML IVPB SCH (13:00)
[2016-09-22] MEDS ORDERED: Potassium Phosphate 30 MM in Sodium Chloride 550 ML IV ONE (14:00)
[2016-09-22] MEDS ORDERED: LORazepam Inj 2mg/ml 1ml IV PRN (16:00)
[2016-09-22] MEDS ORDERED: Zolpidem 5mg tab ORAL PRN (16:00)
[2016-09-22] MEDS ORDERED: Morphine Sulfate 2mg/ml Inj IVP PRN (16:00)
[2016-09-22] MEDS ORDERED: Norco 5mg/325mg tab GT PRN (16:00)
[2016-09-22] MEDS ORDERED: Mylanta II UD 30ml ORAL PRN (16:00)
[2016-09-22] MEDS ORDERED: Miralax 17gm pkt ORAL PRN (16:00)
--- NOTE | 2016-09-22 17:25 | Consultation ---
Consult Note Consult Note ID CONSULT: Milton# [id number] Assessment/Plan ASSESSMENT: 76 y/o female with: // Possible aspiration PNA / pneumonitis - SCx pending - CXR: Mild congestion // Leukocytosis - improved, afebrile ( seizure contributing ) // Fever - improved ( seizure contributing ) // Breakthrough seizure - CT Head: No acute intracranial bleed, mass effect or edema. Mild atrophy of the brain. Nonspecific white matter hypoattenuation probably due to chronic small vessel disease. // Chronic anoxic encephalopathy // Chronic VDRF SP trach, PEG // h/o breast CA // Morbid obesity // No ABX allergies // Full Code PLAN: - continue empiric IV vancomycin, zosyn, amikacin d# 2 / 7 - f/u cultures, adjust ABX accordingly - monitor CBC, temperatures - monitor BMP - monitor CXR - vent support, trach care, aspiration precautions - seizure precautions Thanks! Will follow TREE BARRIENTOS Sep 22, 2016 17:25
[2016-09-22] MEDS ORDERED: AMIKACIN IV SCH ×4 (18:00)
[2016-09-22] MEDS ORDERED: NS IV SCH ×4 (18:00)
[2016-09-22] MEDS ORDERED: Phenytoin Susp 100mg/4ml GT SCH (21:00)
[2016-09-22] MEDS ORDERED: Valproate Sodium INJ 1,000 MG in D5W 55 ML IV SCH (21:00)
[2016-09-22] MEDS: VALPROATE SODIUM IV SCH (21:16)
[2016-09-22] MEDS: NS IV SCH (21:16)
[2016-09-22] MEDS: Piperacillin/Tazobactam 3.375 GM in NS 110 ML IVPB SCH (22:00)
--- NOTE | 2016-09-22 22:18 | Consultation ---
DATE OF CONSULTATION: 09/22/2016 INFECTIOUS DISEASE CONSULTATION CONSULTING PHYSICIAN: Rachid Yee M.D. REQUESTING PHYSICIAN: Savi Rodriguez M.D. REASON FOR CONSULTATION: Aspiration pneumonia. HISTORY OF PRESENT ILLNESS: This is a 76-year-old female, residential resident, with a history of seizure disorder, admitted on 09/21/2016 with breakthrough seizure. She is maintained on three antiepileptics and Neurology is following. CT of the head shows no acute findings. She has evidence of fevers and leukocytosis. Urinalysis is benign. Cultures are pending. Chest x-ray shows mild congestion. She has been started on empiric vancomycin, Zosyn, and amikacin for possible pneumonia. ID now consulted to assist in management. PAST MEDICAL HISTORY: 1. Hypothyroidism. 2. Seizure disorder. 3. Morbid obesity. 4. Chronic obstructive pulmonary disease. 5. Breast cancer. 6. Chronic ventilator-dependent respiratory failure. 7. Chronic anoxic encephalopathy. PAST SURGICAL HISTORY: 1. Tracheostomy. 2. PEG tube placement. 3. Cholecystectomy. MEDICATIONS: 1. Vancomycin. 2. Zosyn. 3. Amikacin. 4. Synthroid. 5. Heparin. 6. Keppra. 7. Valproic acid. 8. Dilantin. ALLERGIES: Peanuts. SOCIAL HISTORY: The patient is a resident of a residential. Otherwise, unknown. FAMILY HISTORY: Noncontributory. REVIEW OF SYSTEMS: Unable to obtain. PHYSICAL EXAMINATION: VITAL SIGNS: Maximum temperature 101.7 degrees, blood pressure 137/67, heart rate in the 80s, respiratory rate 20, and saturating 99% on 40% FiO2. GENERAL: No apparent distress. Nontoxic appearing. Nonresponsive. HEENT: Tracheostomy tube in place. CARDIOVASCULAR: Regular rate and rhythm. No murmurs. PULMONARY: Coarse breath sounds bilaterally. ABDOMEN: Bowel sounds present. Soft, nondistended, nontender. PEG tube in place. EXTREMITIES: Edema. LABORATORY DATA: White blood cell count 15, decreased from 15.4, hemoglobin 7.6, and platelets 284,000. Sodium 139, potassium 2.9, chloride 93, bicarb 37, BUN 10, and creatinine 0.3. Lactic acid 1.5. AST 50, ALT 21, and alkaline phosphatase 165. Total bilirubin 0.3. Albumin 2.4. Troponin negative x1. MICROBIOLOGY: 1. On 09/21/2016, blood culture pending. 2. On 09/21/2016, urine culture pending. 3. On 09/21/2016, wound culture pending. IMAGIN. On 09/22/2016, chest x-ray with mild congestive heart failure. 2. On 09/21/2016, CT of the head, no acute findings. Mild atrophy. ASSESSMENT: 1. Possible aspiration pneumonia/pneumonitis. Sputum culture is pending. Chest x-ray shows mild congestion. 2. Leukocytosis, improved and afebrile. Seizures contributing. 3. Fever, improved. Seizure is contributing. 4. Breakthrough seizures. CT of the head shows no acute findings. 5. Chronic anoxic encephalopathy. 6. Chronic ventilator-dependent respiratory failure, status post tracheostomy and percutaneous endoscopic gastrostomy. 7. History of breast cancer. 8. Morbid obesity. 9. No antibiotic allergies. 10. Full Code. PLAN: 1. Continue empiric IV vancomycin and Zosyn and amikacin day #2 of 7. 2. Follow up cultures and adjust antibiotics accordingly. 3. Monitor CBC and temperatures. 4. Monitor BMP. 5. Monitor chest x-ray. 6. Ventilator support, tracheostomy care, and aspiration precautions. 7. Seizure precautions. Thank you. We will follow. Rachid Yee M.D. DR: KELL JOB#: [id number] CC: Bailey Gonzalez M.D. Arash Alborzi, M.D
--- NOTE | 2016-09-22 23:38 | Electroencephalogram ---
DATE OF PROCEDURE: 09/21/2016 ELECTROENCEPHALOGRAPHY REPORT REQUESTING PHYSICIAN: Savi Rodriguez M.D. HISTORY: This is a 76-year-old female, status post full arrest, presenting with status epilepticus with intermittent right facial twitching. The patient now started on Keppra, Dilantin, Depakote, Ativan, and [place]. During the recording, the patient described as semi-comatose, on ventilator and tracheostomy. TECHNIQUE: EEG was done using 18 electrodes placed scalp to scalp, scalp to ear montages according to 10/20 International System. Throughout the recording, background activity consists of a severely suppressed background frequencies of 3 to 4 cycles per second with intermittent once in 1 to 2 seconds sharp high-voltage, polyspike transients of higher amplitude in the left hemisphere with intermittent appearance of generalization. There was no upset. The patient continued to have right facial twitching. There were no further asymmetry from [id number]. No spike upset. But, continuous spike and sharp wave paroxysmal activities x1 per second runs. IMPRESSION: Markedly abnormal EEG in the presence of depressed cortical activity with a paroxysmal lateralizing or epileptiform discharges emanating from left hemisphere. COMMENT: Above abnormality indicate the ongoing epileptiform activity emanating from left hemisphere suggestive of underlying structural lesion, there is a cerebral global dysfunction with significant cortical suppression as well corresponding to history of anoxic encephalopathy. . Aryan Charlton M.D. DR: TESSIE JOB#: [id number] CC:
[2016-09-23] VITALS (7 sets, daily range): BP systolic 91–116; BP diastolic 43–54
[2016-09-23 05:40] LABS: MEAN CORPUSCULAR HEMOGLOBIN 32.6 PG (27.0-31.0); MEAN CORPUSCULAR HGB CONC 32.2 G/DL (32.0-36.0); MEAN CORPUSCULAR VOLUME 101 FL (80-99); MEAN PLATELET VOLUME 8.7 FL (6.5-10.1); PLATELET COUNT 259 K/UL (150-450); RED BLOOD COUNT 2.38 M/UL (4.20-5.40); RED CELL DISTRIBUTION WIDTH 17.7 % (11.6-14.8); WHITE BLOOD COUNT 10.1 K/UL (4.8-10.8)
[2016-09-23] MEDS: Piperacillin/Tazobactam 3.375 GM in NS 110 ML IVPB SCH ×3 (06:00→21:56)
[2016-09-23 06:06] LABS: ALANINE AMINOTRANSFERASE 27 U/L (3-33); ALBUMIN/GLOBULIN RATIO 0.6 (1.0-2.7); ANION GAP 9 (5-15); ASPARTATE AMINO TRANSFERASE 73 U/L (5-40); CALCIUM 8.4 mg/dL (8.6-10.2); CARBON DIOXIDE 34 mEQ/L (20-30); CHLORIDE 95 mEQ/L (98-107); CREATININE 0.2 mg/dL (0.5-0.9); HEMOLYSIS 0; MAGNESIUM 2.8 mg/dL (1.7-2.5); PHOSPHORUS 2.8 mg/dL (2.5-4.8); POTASSIUM 3.7 mEQ/L (3.4-4.9); SODIUM 138 mEQ/L (135-145); TOTAL PROTEIN 5.7 g/dL (6.6-8.7)
[2016-09-23] MEDS: Levothyroxine 25mcg tab GT SCH (06:34)
[2016-09-23 07:07] LABS: THYROID STIMULATING HORMONE 11.82 uIU/mL (0.300-4.500)
[2016-09-23 08:37] LABS: ABG PCO2 47.4 mmHg (35.0-45.0)
[2016-09-23 08:38] LABS: ABG ALLEN TEST POSITIVE; ABG BASE EXCESS 11.6
[2016-09-23] MEDS: VALPROATE SODIUM IV SCH ×2 (09:00→21:01)
[2016-09-23] MEDS: levETIRAcetam 500mg/5ml Liquid GT SCH ×2 (09:00→21:01)
[2016-09-23] MEDS: Phenytoin Susp 100mg/4ml GT SCH ×2 (09:00→21:00)
[2016-09-23] MEDS: NS IV SCH ×2 (09:00→21:01)
[2016-09-23] MEDS: Heparin 5000 units/ml inj SUBQ SCH ×2 (09:00→21:03)
[2016-09-23] MEDS: Neutraphos-K pkt ORAL SCH ×3 (09:00→17:49)
[2016-09-23 10:29] LABS: ANISOCYTOSIS 1+; BAND NEUTROPHILS % (MANUAL) 2 % (0-8); BASOPHILS % (MANUAL) 0 % (0-2); EOSINOPHILS % (MANUAL) 2 % (0-3); HYPOCHROMASIA 1+; LYMPHOCYTES % (MANUAL) 13 % (20-45); MACROCYTES 1+; NEUTROPHILS % (MANUAL) 81 % (45-75); PLATELET ESTIMATE ADEQUATE; PLATELET MORPHOLOGY NORMAL; POLYCHROMASIA OCCASIONAL; TOTAL CELLS COUNTED 100
[2016-09-23] MEDS ORDERED: VANCOMYCIN1 GM/2502 IVPB (11:36)
--- NOTE | 2016-09-23 11:47 | Pulmonology Progress Note ---
Assessment/Plan Problems: (1) Status epilepticus (2) Aspiration pneumonia (3) Chronic respiratory failure (4) Feeding by G-tube (5) Cholecystostomy care (6) Vegetative state Respiratory: monitor respiratory rate, adjust FIO2 Cardiac: continue to monitor HR/BP Renal: F/U I&O, keep IV fluid Infectious Disease: check cultures Gastrointestinal: continue feedings/current rate Endocrine: monitor blood sugar, check TSH, continue sliding scale insulin Hematologic: monitor H/H, transfuse if hgb<8.5 Neurologic: PRN Ativan, PRN Morphine, keep patient comfortable Affect: PRN ativan Prophylaxis: Protonix 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: cardio, 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 with: case worker Subjective ROS Limited/Unobtainable: Yes Allergies: Coded Allergies: PEANUT (Verified Allergy, Unknown, 09/22/16) Objective Last 24 Hour Vital Signs Date Time Temp Pulse Resp B/P Pulse Ox O2 Delivery O2 Flow Rate FiO2 09/23/16 11:06 92 15 28 09/23/16 09:29 96 13 28 09/23/16 08:00 98.2 94 18 105/51 85 Mechanical Ventilator 40 09/23/16 07:15 95 19 40 09/23/16 04:35 94 15 40 09/23/16 04:15 40 09/23/16 04:00 93 09/23/16 04:00 98.1 94 30 107/54 96 Mechanical Ventilator 40 09/23/16 03:06 97 20 40 09/23/16 01:01 114 18 40 09/23/16 00:00 98.4 116 30 116/54 96 Mechanical Ventilator 40 09/23/16 00:00 40 09/23/16 00:00 106 09/23/16 00:00 98.1 94 30 107/54 96 Mechanical Ventilator 40 09/22/16 22:41 112 25 40 09/22/16 21:08 113 23 40 09/22/16 20:32 99.1 120 30 114/80 98 Mechanical Ventilator 40 09/22/16 20:00 40 09/22/16 20:00 99 09/22/16 18:48 100 30 40 09/22/16 16:41 95 26 40 09/22/16 16:00 98.2 52 24 137/67 99 Mechanical Ventilator 35.0 09/22/16 16:00 110 09/22/16 16:00 40 09/22/16 15:22 84 22 40 09/22/16 14:11 100.7 09/22/16 14:00 89 17 97/45 97 Mechanical Ventilator 40 09/22/16 13:28 102 17 40 09/22/16 13:00 100.7 103 18 96/44 98 Mechanical Ventilator 40 09/22/16 12:00 109 09/22/16 12:00 40 09/22/16 12:00 100.8 103 18 106/50 98 Mechanical Ventilator 40 Intake and Output 09/22/16 09/23/16 19:00 07:00 Intake Total 2004.8 ml 1734.999 ml Output Total 450 ml 495 ml Balance 1554.8 ml 1239.999 ml Free Water 50 ml 60 ml IV Total 1024.8 ml 924.999 ml Tube Feeding 250 ml Blood Product 300 ml Other 380 ml 750 ml Output Urine Total 450 ml 490 ml Gastric Drainage Total 5 ml General Appearance: WD/WN HEENT: atraumatic, anicteric Respiratory/Chest: chest wall non-tender, normal breath sounds Cardiovascular: normal peripheral pulses, normal rate Abdomen: normal bowel sounds, no organomegaly Microbiology Date/Time Source Procedure Growth Status 09/21/16 08:20 Blood Blood Culture - Preliminary NO GROWTH AFTER 24 HOURS Resulted 09/21/16 08:10 Blood Blood Culture - Preliminary NO GROWTH AFTER 24 HOURS Resulted 09/21/16 11:40 Nasal Nares MRSA Culture - Final Staphylococcus Aureus - Mrsa Complete 09/22/16 10:00 Urine,Clean Catch Urine Culture - Preliminary Gram Negative Bacillus 1 Resulted 09/21/16 11:40 Rectum VRE Culture - Final Enterococcus Faecalis - Vre Complete Laboratory Tests 09/23/16 05:00: White Blood Count 10.1, Red Blood Count 2.38L, Hemoglobin 7.8L, Hematocrit 24.1L , Mean Corpuscular Volume 101H, Mean Corpuscular Hemoglobin 32.6H, Mean Corpuscular Hemoglobin Concent 32.2, Red Cell Distribution Width 17.7H, Platelet Count 259, Mean Platelet Volume 8.7, Neutrophils (%) (Auto) , Lymphocytes (%) (Auto) , Monocytes (%) (Auto) , Eosinophils (%) (Auto) , Basophils (%) (Auto) , Differential Total Cells Counted 100, Neutrophils % ( Manual) 81H, Lymphocytes % (Manual) 13L, Monocytes % (Manual) 2, Eosinophils % ( Manual) 2, Basophils % (Manual) 0, Band Neutrophils 2, Platelet Estimate Adequate, Platelet Morphology Normal, Polychromasia Occasional, Hypochromasia 1+ , Anisocytosis 1+, Macrocytosis 1+, Sodium Level 138, Potassium Level 3.7, Chloride Level 95L, Carbon Dioxide Level 34H, Anion Gap 9, Blood Urea Nitrogen 6L, Creatinine 0.2L, Estimat Glomerular Filtration Rate , Glucose Level 118H, Calcium Level 8.4L, Phosphorus Level 2.8, Magnesium Level 2.8H, Total Bilirubin 0.4, Aspartate Amino Transf (AST/SGOT) 73H, Alanine Aminotransferase (ALT/SGPT) 27, Alkaline Phosphatase 186H, Total Protein 5.7L, Albumin 2.2L, Globulin 3.5, Albumin/Globulin Ratio 0.6L, Thyroid Stimulating Hormone (TSH) 11.820H, Random Amikacin Level 9.5, Phenytoin (Dilantin) Level 2.8L 09/23/16 08:20: Arterial Blood pH 7.490H, Arterial Blood Partial Pressure CO2 47.4H, Arterial Blood Partial Pressure O2 136.2H, Arterial Blood HCO3 36.1H, Arterial Blood Oxygen Saturation 98.0, Arterial Blood Base Excess 11.6, Best Test Positive Current Medications Medications (Trade) Dose Ordered Sig/Boubacar Route PRN Reason Start Time Stop Time Status Last Admin Dose Admin Acetaminophen (Tylenol) 650 mg Q4H PRN ORAL fever 09/22/16 16:00 10/22/16 15:59 Acetaminophen/ Hydrocodone Bitart (Noxapater 5/325) 1 tab Q4H PRN GT Moderate Pain (Pain Scale 4-6) 09/22/16 16:00 09/29/16 15:59 Al Hydroxide/Mg Hydroxide (Mylanta II) 30 ml Q6H PRN ORAL dyspepsia 09/22/16 16:00 10/22/16 15:59 Amikacin Protocol (Amikacin pharmacy to dose) 1 ea DAILY PRN MISC Per rx protocol 09/22/16 16:00 10/22/16 15:59 Amikacin Sulfate 1400 mg/Sodium Chloride 115.6 ml @ 115.6 mls/ hr Q24H IV 09/22/16 18:00 09/29/16 17:59 09/22/16 18:40 Dextrose (Dextrose 50%) STAT PRN IV Hypoglycemia 09/22/16 16:00 10/22/16 15:59 Heparin Sodium (Porcine) (Heparin 5000 units/ml) 5,000 units EVERY 12 HOURS SUBQ 09/22/16 21:00 10/22/16 20:59 09/23/16 09:00 Levetiracetam (Keppra) 2,000 mg Q12HR GT 09/22/16 21:00 10/22/16 20:59 09/23/16 09:00 Levothyroxine Sodium 25 mcg 25 mcg ACBREAKFAST GT 09/23/16 06:30 10/23/16 06:29 09/23/16 06:34 Lorazepam (Ativan 2mg/ml 1ml) 2 mg Q1H PRN IV seizures 09/22/16 16:00 09/29/16 15:59 Morphine Sulfate (Morphine Sulfate) 1 mg Q4H PRN IVP Severe Pain (Pain Scale 7-10) 09/22/16 16:00 09/29/16 15:59 Ondansetron HCl (Zofran) 4 mg Q6H PRN IVP Nausea & Vomiting 09/22/16 16:00 10/22/16 15:59 09/23/16 09:56 Phenytoin (Dilantin) 200 mg Q12HR GT 09/22/16 21:00 10/22/16 20:59 09/23/16 09:00 Piperacillin Sod/ Tazobactam Sod 3.375 gm/Sodium Chloride 110 ml @ 27.5 mls/hr Q8HR IVPB 09/22/16 22:00 09/29/16 21:59 09/23/16 06:00 Polyethylene Glycol (Miralax) 17 gm HSPRN PRN ORAL Constipation 09/22/16 16:00 10/22/16 15:59 Potassium Phos/ Sodium Phos (Neutraphos-K Pkt) 1 pkt THREE TIMES A DAY ORAL 09/23/16 09:00 09/23/16 18:01 09/23/16 09:00 Valproate Sodium/ Sodium Chloride (Depacon Inj/ Sodium Chloride) 125 ml @ 58.035 mls/ hr Q12HR IV 09/22/16 21:00 10/22/16 20:59 09/23/16 09:00 Vancomycin HCl (Vanco rx to dose) 1 ea DAILY PRN MISC Per rx protocol 09/22/16 16:00 10/22/16 15:59 Vancomycin HCl/ Dextrose (Vancomycin/D5W) 275 ml @ 183.333 mls/hr Q12HR@0000,1200 IVPB 09/23/16 00:00 09/29/16 00:00 09/23/16 00:00 Zolpidem Tartrate (Ambien) 5 mg HSPRN PRN ORAL Insomnia 09/22/16 16:00 10/22/16 15:59 ANGELA DAVILA Sep 23, 2016 11:47
--- NOTE | 2016-09-23 11:55 | Diagnostic Imaging Report ---
Indications: DYSPNEA Technique: Portable AP chest Findings: Comparison: None Cardiomegaly, pulmonary vascular redistribution, bilateral interstitial infiltrates unchanged. Left costophrenic angle currently obscured by overlying soft tissues. Lines and tubes remain in place. IMPRESSION: No significant change from one day prior, with limitation as described
[2016-09-23] MEDS: Vancomycin 1.25 GM in D5W 275 ML IVPB SCH ×3 (12:00)
--- NOTE | 2016-09-23 12:07 | Neurology Progress Note ---
Interim History Interim History ROS Limited/Unobtainable: Yes Complaints: mute Events: no sz noted Objective Physical Exam Last Vital Signs Date Time Temp Pulse Resp B/P Pulse Ox O2 Delivery O2 Flow Rate FiO2 09/23/16 11:06 92 15 28 09/23/16 08:00 98.2 105/51 85 Mechanical Ventilator 09/22/16 16:00 35.0 Laboratory Tests Test 09/23/16 05:00 09/23/16 08:20 White Blood Count 10.1 K/UL (4.8-10.8) Red Blood Count 2.38 M/UL (4.20-5.40) L Hemoglobin 7.8 G/DL (12.0-16.0) L Hematocrit 24.1 % (37.0-47.0) L Mean Corpuscular Volume 101 FL (80-99) H Mean Corpuscular Hemoglobin 32.6 PG (27.0-31.0) H Mean Corpuscular Hemoglobin Concent 32.2 G/DL (32.0-36.0) Red Cell Distribution Width 17.7 % (11.6-14.8) H Platelet Count 259 K/UL (150-450) Mean Platelet Volume 8.7 FL (6.5-10.1) Neutrophils (%) (Auto) % (45.0-75.0) Lymphocytes (%) (Auto) % (20.0-45.0) Monocytes (%) (Auto) % (1.0-10.0) Eosinophils (%) (Auto) % (0.0-3.0) Basophils (%) (Auto) % (0.0-2.0) Differential Total Cells Counted 100 Neutrophils % (Manual) 81 % (45-75) H Lymphocytes % (Manual) 13 % (20-45) L Monocytes % (Manual) 2 % (1-10) Eosinophils % (Manual) 2 % (0-3) Basophils % (Manual) 0 % (0-2) Band Neutrophils 2 % (0-8) Platelet Estimate Adequate Platelet Morphology Normal Polychromasia Occasional Hypochromasia 1+ Anisocytosis 1+ Macrocytosis 1+ Sodium Level 138 mEQ/L (135-145) Potassium Level 3.7 mEQ/L (3.4-4.9) Chloride Level 95 mEQ/L (98-107) L Carbon Dioxide Level 34 mEQ/L (20-30) H Anion Gap 9 (5-15) Blood Urea Nitrogen 6 mg/dL (7-23) L Creatinine 0.2 mg/dL (0.5-0.9) L Estimat Glomerular Filtration Rate mL/min (>60) Glucose Level 118 mg/dL (74-106) H Calcium Level 8.4 mg/dL (8.6-10.2) L Phosphorus Level 2.8 mg/dL (2.5-4.8) Magnesium Level 2.8 mg/dL (1.7-2.5) H Total Bilirubin 0.4 mg/dL (0.0-1.2) Aspartate Amino Transf (AST/SGOT) 73 U/L (5-40) H Alanine Aminotransferase (ALT/SGPT) 27 U/L (3-33) Alkaline Phosphatase 186 U/L (35-104) H Total Protein 5.7 g/dL (6.6-8.7) L Albumin 2.2 g/dL (3.5-5.2) L Globulin 3.5 g/dL Albumin/Globulin Ratio 0.6 (1.0-2.7) L Thyroid Stimulating Hormone (TSH) 11.820 uIU/mL (0.300-4.500) Random Amikacin Level 9.5 ug/mL Phenytoin (Dilantin) Level 2.8 ug/mL (10-20) L Arterial Blood pH 7.490 (7.350-7.450) Arterial Blood Partial Pressure CO2 47.4 mmHg (35.0-45.0) H Arterial Blood Partial Pressure O2 136.2 mmHg (75.0-100.0) H Arterial Blood HCO3 36.1 mmol/L (22.0-26.0) H Arterial Blood Oxygen Saturation 98.0 % (92.0-98.0) Arterial Blood Base Excess 11.6 Best Test Positive General: well developed, other - obese Head: normocophalic, atraumatic Neck: other - rigid Neurologic Exam Mental Status: other - coma jacinto Speech: other Language: other Cranial Nerve II: no papilledema Cranial Nerves III, IV, : pupils, other - 3mm rla Cranial Nerve VII: normal facial expressions Cranial Nerve VIII: no nystagmus Cranial Nerve IX: gag response Cranial Nerve XI: trapezii function normal Cranial Nerve XII: tongue midline, no tongue atrophy/fasciculations Motor System: other - flaccid Sensory: other Coordination: other Deep Tendon Reflexes: 0 ankle (L), 0 ankle (R), 0 bicep (L), 0 bicep (R), 0 brachioradialis (L), 0 brachioradialis (R), 0 knee (L), 0 knee (R), 0 tricep (L) , 0 tricep (R) Reflexes: mute plantar (L), mute plantar (R) Impression/Recommendations Problems: (1) Status epilepticus (2) Anoxic brain damage syndrome Status: stable Recommendations #[id number] keppra 2000mg bid IV dilantin [id number] slow drip now then 200mg bid maintanence ativan 2mg q1hr prn EEGdone con tpresent rx MARIO CARMONA Sep 23, 2016 12:07
[2016-09-23 12:11] LABS: OTHERS PARTHOLOGIST COMMENT
[2016-09-23] MEDS: Pantoprazole Inj IVP SCH (13:13)
--- NOTE | 2016-09-23 14:58 | Infectious Diseases Prog Note ---
Assessment/Plan Assessment/Plan ASSESSMENT: 76 y/o female with: // Possible aspiration PNA / pneumonitis - SCx pending - CXR 09/23: Mild congestion, unchanged // GNR UTI vs colonization - C&S pending // Leukocytosis - resolved, afebrile ( seizure contributing ) // Fever - improved ( seizure contributing ) // Breakthrough seizure - CT Head: No acute intracranial bleed, mass effect or edema. Mild atrophy of the brain. Nonspecific white matter hypoattenuation probably due to chronic small vessel disease. // Chronic anoxic encephalopathy // Chronic VDRF SP trach, PEG // h/o breast CA // Morbid obesity // No ABX allergies // Full Code PLAN: - continue empiric IV vancomycin, zosyn d# 3 / 7. DC amikacin d# 3 - f/u cultures, adjust ABX accordingly - monitor CBC, temperatures - monitor BMP - monitor CXR - vent support, trach care, aspiration precautions - seizure precautions Subjective Allergies: Coded Allergies: PEANUT (Verified Allergy, Unknown, 09/22/16) Subjective fevers improved. no distress Objective Vital Signs Last 24 Hour Vital Signs Date Time Temp Pulse Resp B/P Pulse Ox O2 Delivery O2 Flow Rate FiO2 09/23/16 13:57 92 15 91/45 91 Mechanical Ventilator 28 09/23/16 13:08 91 22 28 09/23/16 12:00 90 09/23/16 12:00 40 09/23/16 12:00 97.9 84 15 94/49 71 Mechanical Ventilator 28 09/23/16 11:06 92 15 28 09/23/16 09:29 96 13 28 09/23/16 08:00 98.2 94 18 105/51 85 Mechanical Ventilator 40 09/23/16 07:15 95 19 40 09/23/16 04:35 94 15 40 09/23/16 04:15 40 09/23/16 04:00 93 09/23/16 04:00 98.1 94 30 107/54 96 Mechanical Ventilator 40 09/23/16 03:06 97 20 40 09/23/16 01:01 114 18 40 09/23/16 00:00 98.4 116 30 116/54 96 Mechanical Ventilator 40 09/23/16 00:00 40 09/23/16 00:00 106 09/23/16 00:00 98.1 94 30 107/54 96 Mechanical Ventilator 40 09/22/16 22:41 112 25 40 09/22/16 21:08 113 23 40 09/22/16 20:32 99.1 120 30 114/80 98 Mechanical Ventilator 40 09/22/16 20:00 40 09/22/16 20:00 99 09/22/16 18:48 100 30 40 09/22/16 16:41 95 26 40 09/22/16 16:00 98.2 52 24 137/67 99 Mechanical Ventilator 35.0 09/22/16 16:00 110 09/22/16 16:00 40 09/22/16 15:22 84 22 40 Height (Feet): 5 Height (Inches): 7.00 Weight (Pounds): 300 General Appearance: no acute distress Respiratory/Chest: no respiratory distress Cardiovascular: normal rate, regular rhythm Abdomen: normal bowel sounds, soft, non tender, non distended Microbiology Date/Time Source Procedure Growth Status 09/21/16 08:20 Blood Blood Culture - Preliminary NO GROWTH AFTER 24 HOURS Resulted 09/21/16 08:10 Blood Blood Culture - Preliminary NO GROWTH AFTER 24 HOURS Resulted 09/21/16 11:40 Nasal Nares MRSA Culture - Final Staphylococcus Aureus - Mrsa Complete 09/22/16 10:00 Urine,Clean Catch Urine Culture - Preliminary Gram Negative Bacillus 1 Resulted 09/21/16 11:40 Rectum VRE Culture - Final Enterococcus Faecalis - Vre Complete Laboratory Tests Test 09/23/16 05:00 09/23/16 08:20 White Blood Count 10.1 K/UL (4.8-10.8) Red Blood Count 2.38 M/UL (4.20-5.40) L Hemoglobin 7.8 G/DL (12.0-16.0) L Hematocrit 24.1 % (37.0-47.0) L Mean Corpuscular Volume 101 FL (80-99) H Mean Corpuscular Hemoglobin 32.6 PG (27.0-31.0) H Mean Corpuscular Hemoglobin Concent 32.2 G/DL (32.0-36.0) Red Cell Distribution Width 17.7 % (11.6-14.8) H Platelet Count 259 K/UL (150-450) Mean Platelet Volume 8.7 FL (6.5-10.1) Neutrophils (%) (Auto) % (45.0-75.0) Lymphocytes (%) (Auto) % (20.0-45.0) Monocytes (%) (Auto) % (1.0-10.0) Eosinophils (%) (Auto) % (0.0-3.0) Basophils (%) (Auto) % (0.0-2.0) Differential Total Cells Counted 100 Neutrophils % (Manual) 81 % (45-75) H Lymphocytes % (Manual) 13 % (20-45) L Monocytes % (Manual) 2 % (1-10) Eosinophils % (Manual) 2 % (0-3) Basophils % (Manual) 0 % (0-2) Band Neutrophils 2 % (0-8) Platelet Estimate Adequate Platelet Morphology Normal Polychromasia Occasional Hypochromasia 1+ Anisocytosis 1+ Macrocytosis 1+ Sodium Level 138 mEQ/L (135-145) Potassium Level 3.7 mEQ/L (3.4-4.9) Chloride Level 95 mEQ/L (98-107) L Carbon Dioxide Level 34 mEQ/L (20-30) H Anion Gap 9 (5-15) Blood Urea Nitrogen 6 mg/dL (7-23) L Creatinine 0.2 mg/dL (0.5-0.9) L Estimat Glomerular Filtration Rate mL/min (>60) Glucose Level 118 mg/dL (74-106) H Calcium Level 8.4 mg/dL (8.6-10.2) L Phosphorus Level 2.8 mg/dL (2.5-4.8) Magnesium Level 2.8 mg/dL (1.7-2.5) H Total Bilirubin 0.4 mg/dL (0.0-1.2) Aspartate Amino Transf (AST/SGOT) 73 U/L (5-40) H Alanine Aminotransferase (ALT/SGPT) 27 U/L (3-33) Alkaline Phosphatase 186 U/L (35-104) H Total Protein 5.7 g/dL (6.6-8.7) L Albumin 2.2 g/dL (3.5-5.2) L Globulin 3.5 g/dL Albumin/Globulin Ratio 0.6 (1.0-2.7) L Thyroid Stimulating Hormone (TSH) 11.820 uIU/mL (0.300-4.500) Random Amikacin Level 9.5 ug/mL Phenytoin (Dilantin) Level 2.8 ug/mL (10-20) L Arterial Blood pH 7.490 (7.350-7.450) Arterial Blood Partial Pressure CO2 47.4 mmHg (35.0-45.0) H Arterial Blood Partial Pressure O2 136.2 mmHg (75.0-100.0) H Arterial Blood HCO3 36.1 mmol/L (22.0-26.0) H Arterial Blood Oxygen Saturation 98.0 % (92.0-98.0) Arterial Blood Base Excess 11.6 Best Test Positive Current Medications Medications (Trade) Dose Ordered Sig/Boubacar Route PRN Reason Start Time Stop Time Status Last Admin Dose Admin Acetaminophen (Tylenol) 650 mg Q4H PRN ORAL fever 09/22/16 16:00 10/22/16 15:59 Acetaminophen/ Hydrocodone Bitart ([place] 5/325) 1 tab Q4H PRN GT Moderate Pain (Pain Scale 4-6) 09/22/16 16:00 09/29/16 15:59 Al Hydroxide/Mg Hydroxide (Mylanta II) 30 ml Q6H PRN ORAL dyspepsia 09/22/16 16:00 10/22/16 15:59 Amikacin Protocol (Amikacin pharmacy to dose) 1 ea DAILY PRN MISC Per rx protocol 09/22/16 16:00 10/22/16 15:59 Amikacin Sulfate 1400 mg/Sodium Chloride 115.6 ml @ 115.6 mls/ hr Q24H IV 09/22/16 18:00 09/29/16 17:59 09/22/16 18:40 Dextrose (Dextrose 50%) STAT PRN IV Hypoglycemia 09/22/16 16:00 10/22/16 15:59 Heparin Sodium (Porcine) (Heparin 5000 units/ml) 5,000 units EVERY 12 HOURS SUBQ 09/22/16 21:00 10/22/16 20:59 09/23/16 09:00 Levetiracetam (Keppra) 2,000 mg Q12HR GT 09/22/16 21:00 10/22/16 20:59 09/23/16 09:00 Levothyroxine Sodium 25 mcg 25 mcg ACBREAKFAST GT 09/23/16 06:30 10/23/16 06:29 1/20/17 06:34 Lorazepam (Ativan 2mg/ml 1ml) 2 mg Q1H PRN IV seizures 09/22/16 16:00 09/29/16 15:59 Morphine Sulfate (Morphine Sulfate) 1 mg Q4H PRN IVP Severe Pain (Pain Scale 7-10) 09/22/16 16:00 09/29/16 15:59 Ondansetron HCl (Zofran) 4 mg Q6H PRN IVP Nausea & Vomiting 09/22/16 16:00 10/22/16 15:59 09/23/16 09:56 Pantoprazole (Protonix) 40 mg DAILY IVP 09/23/16 14:00 10/23/16 13:59 09/23/16 13:13 Phenytoin (Dilantin) 200 mg Q12HR GT 09/22/16 21:00 10/22/16 20:59 09/23/16 09:00 Piperacillin Sod/ Tazobactam Sod 3.375 gm/Sodium Chloride 110 ml @ 27.5 mls/hr Q8HR IVPB 09/22/16 22:00 09/29/16 21:59 09/23/16 13:13 Polyethylene Glycol (Miralax) 17 gm HSPRN PRN ORAL Constipation 09/22/16 16:00 10/22/16 15:59 Potassium Phos/ Sodium Phos (Neutraphos-K Pkt) 1 pkt THREE TIMES A DAY ORAL 09/23/16 09:00 09/23/16 18:01 09/23/16 12:30 Valproate Sodium/ Sodium Chloride (Depacon Inj/ Sodium Chloride) 125 ml @ 58.035 mls/ hr Q12HR IV 09/22/16 21:00 10/22/16 20:59 09/23/16 09:00 Vancomycin HCl (Vanco rx to dose) 1 ea DAILY PRN MISC Per rx protocol 09/22/16 16:00 10/22/16 15:59 Vancomycin HCl/ Dextrose (Vancomycin/D5W) 275 ml @ 183.333 mls/hr Q12HR@0000,1200 IVPB 09/23/16 00:00 09/29/16 00:00 09/23/16 12:00 Zolpidem Tartrate (Ambien) 5 mg HSPRN PRN ORAL Insomnia 09/22/16 16:00 10/22/16 15:59 TREE BARRIENTOS Sep 23, 2016 14:58
[2016-09-23] MEDS ORDERED: Potassium Phosphate 30 MM in Sodium Chloride 550 ML IV ONE (16:00)
--- NOTE | 2016-09-23 19:56 | Cardiology Progress Note ---
Assessment/Plan Assessment/Plan [id number] abn tele strip ? artifact chronic resp failure copd hs of breast cnacre seizure do watch on tele no med for rhytm at this time ekg Objective Last 24 Hour Vital Signs Date Time Temp Pulse Resp B/P Pulse Ox O2 Delivery O2 Flow Rate FiO2 09/23/16 17:19 103 18 28 09/23/16 16:00 97.7 99 19 99/43 100 Mechanical Ventilator 28 09/23/16 16:00 101 09/23/16 16:00 28 09/23/16 15:08 93 21 28 09/23/16 13:57 92 15 91/45 91 Mechanical Ventilator 28 09/23/16 13:08 91 22 28 09/23/16 12:00 90 09/23/16 12:00 40 09/23/16 12:00 97.9 84 15 94/49 71 Mechanical Ventilator 28 09/23/16 11:06 92 15 28 09/23/16 09:29 96 13 28 09/23/16 08:00 98.2 94 18 105/51 85 Mechanical Ventilator 40 09/23/16 07:15 95 19 40 09/23/16 04:35 94 15 40 09/23/16 04:15 40 09/23/16 04:00 93 09/23/16 04:00 98.1 94 30 107/54 96 Mechanical Ventilator 40 09/23/16 03:06 97 20 40 09/23/16 01:01 114 18 40 09/23/16 00:00 98.4 116 30 116/54 96 Mechanical Ventilator 40 09/23/16 00:00 40 09/23/16 00:00 106 09/23/16 00:00 98.1 94 30 107/54 96 Mechanical Ventilator 40 09/22/16 22:41 112 25 40 09/22/16 21:08 113 23 40 09/22/16 20:32 99.1 120 30 114/80 98 Mechanical Ventilator 40 09/22/16 20:00 40 09/22/16 20:00 99 Intake and Output 09/22/16 09/23/16 19:00 07:00 Intake Total 2004.8 ml 1734.999 ml Output Total 450 ml 495 ml Balance 1554.8 ml 1239.999 ml Free Water 50 ml 60 ml IV Total 1024.8 ml 924.999 ml Tube Feeding 250 ml Blood Product 300 ml Other 380 ml 750 ml Output Urine Total 450 ml 490 ml Gastric Drainage Total 5 ml Laboratory Tests Test 09/23/16 05:00 09/23/16 08:20 White Blood Count 10.1 K/UL (4.8-10.8) Red Blood Count 2.38 M/UL (4.20-5.40) L Hemoglobin 7.8 G/DL (12.0-16.0) L Hematocrit 24.1 % (37.0-47.0) L Mean Corpuscular Volume 101 FL (80-99) H Mean Corpuscular Hemoglobin 32.6 PG (27.0-31.0) H Mean Corpuscular Hemoglobin Concent 32.2 G/DL (32.0-36.0) Red Cell Distribution Width 17.7 % (11.6-14.8) H Platelet Count 259 K/UL (150-450) Mean Platelet Volume 8.7 FL (6.5-10.1) Neutrophils (%) (Auto) % (45.0-75.0) Lymphocytes (%) (Auto) % (20.0-45.0) Monocytes (%) (Auto) % (1.0-10.0) Eosinophils (%) (Auto) % (0.0-3.0) Basophils (%) (Auto) % (0.0-2.0) Differential Total Cells Counted 100 Neutrophils % (Manual) 81 % (45-75) H Lymphocytes % (Manual) 13 % (20-45) L Monocytes % (Manual) 2 % (1-10) Eosinophils % (Manual) 2 % (0-3) Basophils % (Manual) 0 % (0-2) Band Neutrophils 2 % (0-8) Platelet Estimate Adequate Platelet Morphology Normal Polychromasia Occasional Hypochromasia 1+ Anisocytosis 1+ Macrocytosis 1+ Sodium Level 138 mEQ/L (135-145) Potassium Level 3.7 mEQ/L (3.4-4.9) Chloride Level 95 mEQ/L (98-107) L Carbon Dioxide Level 34 mEQ/L (20-30) H Anion Gap 9 (5-15) Blood Urea Nitrogen 6 mg/dL (7-23) L Creatinine 0.2 mg/dL (0.5-0.9) L Estimat Glomerular Filtration Rate mL/min (>60) Glucose Level 118 mg/dL (74-106) H Calcium Level 8.4 mg/dL (8.6-10.2) L Phosphorus Level 2.8 mg/dL (2.5-4.8) Magnesium Level 2.8 mg/dL (1.7-2.5) H Total Bilirubin 0.4 mg/dL (0.0-1.2) Aspartate Amino Transf (AST/SGOT) 73 U/L (5-40) H Alanine Aminotransferase (ALT/SGPT) 27 U/L (3-33) Alkaline Phosphatase 186 U/L (35-104) H Total Protein 5.7 g/dL (6.6-8.7) L Albumin 2.2 g/dL (3.5-5.2) L Globulin 3.5 g/dL Albumin/Globulin Ratio 0.6 (1.0-2.7) L Thyroid Stimulating Hormone (TSH) 11.820 uIU/mL (0.300-4.500) Random Amikacin Level 9.5 ug/mL Phenytoin (Dilantin) Level 2.8 ug/mL (10-20) L Arterial Blood pH 7.490 (7.350-7.450) Arterial Blood Partial Pressure CO2 47.4 mmHg (35.0-45.0) H Arterial Blood Partial Pressure O2 136.2 mmHg (75.0-100.0) H Arterial Blood HCO3 36.1 mmol/L (22.0-26.0) H Arterial Blood Oxygen Saturation 98.0 % (92.0-98.0) Arterial Blood Base Excess 11.6 Best Test Positive Microbiology Date/Time Source Procedure Growth Status 09/21/16 08:20 Blood Blood Culture - Preliminary NO GROWTH AFTER 24 HOURS Resulted 09/21/16 08:10 Blood Blood Culture - Preliminary NO GROWTH AFTER 24 HOURS Resulted 09/21/16 11:40 Nasal Nares MRSA Culture - Final Staphylococcus Aureus - Mrsa Complete 09/22/16 10:00 Urine,Clean Catch Urine Culture - Preliminary Gram Negative Bacillus 1 Resulted 09/21/16 11:40 Rectum VRE Culture - Final Enterococcus Faecalis - Vre Complete MARCELL KING Sep 23, 2016 19:56
--- NOTE | 2016-09-23 20:47 | Consultation ---
Consult Note Consult Note Cardiac EP Full consult #[id number] DEJON MCKEON Sep 23, 2016 20:46
[2016-09-24 00:04] VITALS: BP 105/51
--- NOTE | 2016-09-24 02:37 | Consultation ---
DATE OF CONSULTATION: CARDIAC ELECTROPHYSIOLOGY CONSULTATION CONSULTING PHYSICIAN: Faith Mcfadden M.D. REASON FOR CONSULTATION: Atrial flutter. History Of Present Illness: History is obtained from the chart and treating providers as the patient is unable to give any history. The patient is a 76-year-old woman with a history of previous cerebrovascular accidents, chronic respiratory failure, status post tracheostomy, and history of encephalopathy/vegetative state. She was transferred from the convalescent home by paramedics with seizures. She received Ativan in the emergency room and has been admitted for further treatment. She was also started on Keppra. On telemetry today between about 3 p.m. and 5:30 p.m., she was noted to develop a rapid heart rate of about 100 to 110 beats per minute and regular with a sawtooth pattern consistent with atrial flutter. Her rhythm has subsequently reverted back to normal sinus rhythm. Cardiac electrophysiology evaluation was requested. Per the nurse, there was no seizure activity during this episode and no hemodynamic compromise. PAST MEDICAL HISTORY: As noted above. MEDICATIONS: Protonix 40 mg intravenously daily, Synthroid 25 mcg daily, vancomycin 1.25 g intravenous q.12 hours, Zosyn 3.375 g intravenous q.8 hours, subcutaneous heparin 5000 units q.12 hours, Keppra 2000 mg q.12 hours per G-tube, sodium valproate 1500 mg intravenous q.12 hours, Dilantin 200 mg q.12 hours per G-tube, Tylenol as needed, Mylanta as needed, Ativan as needed, and morphine as needed. ALLERGIES: No known drug allergies. REVIEW OF SYSTEMS: Not obtainable from the patient or chart. PHYSICAL EXAMINATION: VITAL SIGNS: Blood pressure is 95/45, pulse 97 and regular, respirations 19, afebrile. GENERAL: Obese, unresponsive female, on the ventilator. HEENT: Pupils equal, round, and reactive to light. Sclerae anicteric. Oral mucosa moist. NECK: Tracheostomy site clean. LUNGS: Clear to auscultation anteriorly. HEART: Regular S1 and S2 with no murmur or S3. ABDOMEN: There is a right upper quadrant biliary drain and left upper quadrant G-tube. Normoactive bowel sounds. EXTREMITIES: No cyanosis, clubbing, or edema. NEUROLOGIC: The patient is unresponsive to voice. She has no spontaneous movements of the upper or lower extremities. SKIN: No rashes or lesions. Laboratory and diagnostic Data: Hemoglobin 7.8, white blood count 10,100, and platelets 259,000. Potassium 3.7, BUN 6, and creatinine 0.2. TSH 11.8. INR 1.1. EKG from today at 2025 hours shows sinus rhythm at a rate of 96 beats per minute. Voltage criteria for left ventricular hypertrophy. Q-waves in leads III and aVF as well as tall R-waves in V1 consistent with the old inferoposterior infarct. No ST-segment changes. Telemetry from today at 0524 hours shows what appears to be atrial flutter with 3:1 conduction ventricular rate of 100 beats per minute. Chest x-ray from today shows pulmonary vascular congestion, bilateral interstitial infiltrates. ASSESSMENT AND RECOMMENDATIONS: The patient is an unfortunate 76-year-old woman with a history of previous cerebrovascular accidents, persistent vegetative state, respiratory failure, on chronic ventilator, who was admitted with seizures. In this setting, she was noted to have an episode of atrial flutter with 3:1 conduction, which appears to have lasted about two to three hours. The tracing is consistent in both monitored leads and I believe this is a true arrhythmia rather than artifacts. Given her persistent vegetative state, however, I would not favor aggressive treatment. There would be no advantage to anticoagulation at this time. I would continue telemetry monitoring and would treat with beta-blockers or calcium channel blockers for ventricular rate control should hemodynamically significant atrial flutter recur. Faith Mcfadden M.D. DR: MORENO JOB#: [id number] CC: Savi Rodriguez M.D.; Fax#: [phone]
[2016-09-24 04:00] VITALS: BP 115/51
--- NOTE | 2016-09-24 04:27 | Consultation ---
DATE OF CONSULTATION: 09/23/2016 CARDIAC CONSULTATION REFERRING PHYSICIAN: Savi Rodriguez M.D. REASON FOR REFERRAL: Atrial flutter. HISTORY OF PRESENT ILLNESS: This is an elderly female, who is a mechanical ventilator dependent, who presents to the hospital because of seizure disorder. The patient was noted to have converted to atrial flutter. consultation request . The patient again is unable to provide any meaningful history whatsoever. PAST MEDICAL HISTORY: The patient's past medical history is positive for history of chronic respiratory failure on chronic vent with hypoxic hypercapnia, COPD, morbid obesity, hypothyroidism, functional quadriplegia, history of anoxic encephalopathy seizures, cholecystostomy, tracheostomy, seizure disorder, septic shock. The patient reportedly did not have any allergies to medications. Past medical history includes a history of anemia, hyperlipidemia, nicotine dependency, history of ST-segment elevation myocardial infarction, history of diverticulosis without perforation, history of malignant neoplasm of the breast. MEDICATIONS: Her medications include sulfate, Florastor, Synthroid 50 mcg, Dilantin, aspirin 81 mg, Lovenox, Pepcid, Lasix, multivitamins, and Colace. SOCIAL HISTORY: She lives in a convalescent facility. REVIEW OF SYSTEMS: Unable to obtain. PHYSICAL EXAMINATION: GENERAL: Shows to be morbidly obese female who is on a mechanical ventilator, not communicative, not responsive, not follow any commands. NECK: Supple. There is a tracheostomy in place. LUNGS: No rhonchi noted bilaterally. CARDIAC: Regular rate and rhythm. No heaves, thrills, gallops, or rubs. ABDOMEN: Soft and obese. Positive bowel sounds. Nontender. EXTREMITIES: There is no clubbing, cyanosis, or edema. NEUROLOGICAL: Nonresponsive and noncommunicative. LABORATORY DATA: Her laboratory values, basically telemetry data shows sinus rhythm. There is one strip that shows possibility of atrial flutter, although that is not completely clear, as this may be related to just purely artifact from motion. The weight is not much different than the baseline and the RR intervals appeared to be regular, maybe some P-wave activity that can be discerned on some of this telemetry strip. Other laboratories are white count 10.1, hemoglobin 7.8, and platelet count of 259,000. PH of 7.49, pCO2 47, pO2 136, and bicarbonate of 36. Sodium is 138, potassium 3.7, chloride 95, bicarbonate 34, BUN of 6, creatinine 0.2, glucose of 116, calcium is 8.4, calcium phosphate of 186, and albumin of 2.2. TSH of 11.8. Coags INR 1.1 and a PTT of 30. Urinalysis is fairly unremarkable. A chest x-ray was performed today shows no significant change from prior, cardiomegaly, pulmonary vascular distribution, bilateral interstitial infiltrates unchanged. There are no other laboratories. Her vital signs, the blood pressure is 91/45 to 99/43, temperature of 97.7 degrees, and pulse rate of 84 to 100. ASSESSMENT: 1. Altered mentation. 2. Seizures. 3. Chronic respiratory failure. 4. Abnormal EKG, likely artifact. 5. Chronic respiratory failure. 6. History of breast cancer. 7. History of cholecystitis, status post cholecystostomy tube placement previously. 8. Morbid obesity. 9. Hypothyroidism. PLAN: Dr. Rodriguez's patient was seen in cardiac consultation. I am not convinced that this actually was atrial flutter. I suspect there has been a artifact. We will follow the patient along with on tele. I will not specifically treat this at this time. An echocardiogram may be ordered if needed in the future. The patient has been followed by Neurology as well as Infectious Disease, and is being treated with intravenous antibiotics and need to be followed. Mathew Minor M.D. DR: RICHA JOB#: [id number] CC:
[2016-09-24] MEDS: Piperacillin/Tazobactam 3.375 GM in NS 110 ML IVPB SCH ×3 (05:28→22:04)
[2016-09-24] MEDS: Levothyroxine 25mcg tab GT SCH (05:28)
[2016-09-24 08:00] VITALS: BP 114/43
[2016-09-24] MEDS: Phenytoin Susp 100mg/4ml GT SCH ×2 (08:40→21:27)
[2016-09-24] MEDS: NS IV SCH ×2 (08:42→21:26)
[2016-09-24] MEDS: Pantoprazole Inj IVP SCH (08:42)
[2016-09-24] MEDS: VALPROATE SODIUM IV SCH ×2 (08:42→21:26)
[2016-09-24] MEDS: levETIRAcetam 500mg/5ml Liquid GT SCH ×2 (08:43→21:30)
[2016-09-24] MEDS: Heparin 5000 units/ml inj SUBQ SCH ×2 (08:49→21:33)
[2016-09-24] MEDS: Vancomycin 1.25 GM in D5W 275 ML IVPB SCH ×3 (11:19)
[2016-09-24 12:00] VITALS: BP 118/55
[2016-09-24] MEDS ORDERED: NS 275ml ONE ×2 (14:40→16:00)
[2016-09-24] MEDS ORDERED: Tubing Blood Filter IV ONE (14:40)
[2016-09-24] MEDS ORDERED: Tubing IV Secondary IV ONE ×2 (14:40→16:00)
--- NOTE | 2016-09-24 15:32 | Cardiac Electrophysiology PN ---
Assessment/Plan Status: stable, unchanged Status Narrative No further AFL noted on telemetry. She has SR w/ short sinus pauses (< 2 sec) Elevated TSH noted - ? hypothyroid vs euthyroid sick Assessment/Plan Check free T4 - r/o hypothyroidism May need additional synthroid Continue telemetry monitoring. hold antiarrhythmic agents unless hemodyn significant atrial tachyarrhythmias. Management of seizures per Dr. Charlton. Subjective ROS Limited/Unobtainable: Yes Subjective intubated/ unresponsive Objective Last 24 Hour Vital Signs Date Time Temp Pulse Resp B/P Pulse Ox O2 Delivery O2 Flow Rate FiO2 09/24/16 15:13 77 24 35 09/24/16 13:12 77 09/24/16 12:59 75 20 35 09/24/16 12:05 35 09/24/16 12:00 97.7 85 24 118/55 97 Mechanical Ventilator 35 09/24/16 11:08 82 16 35 09/24/16 09:22 83 20 35 09/24/16 08:00 35 09/24/16 08:00 81 09/24/16 08:00 97.9 85 20 114/43 98 Mechanical Ventilator 35 09/24/16 07:20 79 17 35 09/24/16 05:10 84 25 35 09/24/16 04:00 84 09/24/16 04:00 99.5 99 19 115/51 94 Mechanical Ventilator 35 09/24/16 04:00 35 09/24/16 03:07 92 27 35 09/24/16 01:03 90 29 28 09/24/16 00:04 98.6 94 19 105/51 94 Mechanical Ventilator 28 09/24/16 00:00 28 09/23/16 23:34 93 09/23/16 23:30 92 18 28 09/23/16 20:43 91 18 28 09/23/16 20:00 97 09/23/16 20:00 28 09/23/16 20:00 97.7 97 19 99/45 91 Mechanical Ventilator 28 09/23/16 19:15 94 18 28 09/23/16 17:19 103 18 28 09/23/16 16:00 97.7 99 19 99/43 100 Mechanical Ventilator 28 09/23/16 16:00 101 09/23/16 16:00 28 General Appearance: obese, on vent Neck: non-tender, other - trach site clean Rhythm: NSR Cardiovascular: normal rate, regular rhythm, no gallop/murmur Respiratory/Chest: other - scattered rhonchi bilat Abdomen: non tender, soft, other - g tube, biliary drains Extremities: trace edema Intake and Output 09/23/16 09/24/16 19:00 07:00 Intake Total 1201.330 ml 968.535 ml Output Total 190 ml 750 ml Balance 1011.330 ml 218.535 ml Free Water 100 ml 50 ml IV Total 601.330 ml 418.535 ml Tube Feeding 0 ml 0 ml Other 500 ml 500 ml Output Urine Total 190 ml 750 ml Gastric Drainage Total 0 ml # Bowel Movements 1 1 Laboratory Tests Test 09/23/16 23:00 09/24/16 04:00 Vancomycin Level Trough 15.1 ug/mL (5.0-12.0) H Phosphorus Level 2.8 mg/dL (2.5-4.8) Pro-B-Type Natriuretic Peptide 883 pg/mL (0-450) H Microbiology Date/Time Source Procedure Growth Status 09/22/16 08:45 Blood Blood Culture - Preliminary NO GROWTH AFTER 48 HOURS Resulted 09/22/16 07:55 Blood Blood Culture - Preliminary Gram Positive Cocci Resulted 09/23/16 10:00 Indwelling Cath Urine Culture - Preliminary NO GROWTH Resulted 09/22/16 10:00 Urine,Clean Catch Urine Culture - Final Escherichia Coli Complete DEJON MCKEON Sep 24, 2016 15:31
--- NOTE | 2016-09-24 15:51 | Infectious Diseases Prog Note ---
Assessment/Plan Assessment/Plan ASSESSMENT: 76 y/o female with: // Possible aspiration PNA / pneumonitis - SCx pending - CXR 09/23: Mild congestion, unchanged // GNR UTI vs colonization -UCX :GNR // Leukocytosis - resolved, afebrile ( seizure contributing ) // Fever - improved ( seizure contributing ) // Bcx :GPC + // Alk Ph ro Biliary Dis // Breakthrough seizure - CT Head: No acute intracranial bleed, mass effect or edema. Mild atrophy of the brain. Nonspecific white matter hypoattenuation probably due to chronic small vessel disease. // Chronic anoxic encephalopathy // Chronic VDRF SP trach, PEG // h/o breast CA // Morbid obesity // No ABX allergies // Full Code PLAN: - continue empiric IV vancomycin, zosyn d# 4 / 7. ( 09/23 SP amikacin d# 3 ) - f/u cultures, - monitor CBC, temperatures - monitor BMP - monitor CXR - vent support, trach care, aspiration precautions - seizure precautions - US of liver Subjective Constitutional: Denies: anorexia, chills, drenching sweats, fatigue, fever, no symptoms, other Allergies: Coded Allergies: PEANUT (Verified Allergy, Unknown, 09/22/16) Objective Vital Signs Last 24 Hour Vital Signs Date Time Temp Pulse Resp B/P Pulse Ox O2 Delivery O2 Flow Rate FiO2 09/24/16 15:13 77 24 35 09/24/16 13:12 77 09/24/16 12:59 75 20 35 09/24/16 12:05 35 09/24/16 12:00 97.7 85 24 118/55 97 Mechanical Ventilator 35 09/24/16 11:08 82 16 35 09/24/16 09:22 83 20 35 09/24/16 08:00 35 09/24/16 08:00 81 09/24/16 08:00 97.9 85 20 114/43 98 Mechanical Ventilator 35 09/24/16 07:20 79 17 35 09/24/16 05:10 84 25 35 09/24/16 04:00 84 09/24/16 04:00 99.5 99 19 115/51 94 Mechanical Ventilator 35 09/24/16 04:00 35 09/24/16 03:07 92 27 35 09/24/16 01:03 90 29 28 09/24/16 00:04 98.6 94 19 105/51 94 Mechanical Ventilator 28 09/24/16 00:00 28 09/23/16 23:34 93 09/23/16 23:30 92 18 28 09/23/16 20:43 91 18 28 09/23/16 20:00 97 09/23/16 20:00 28 09/23/16 20:00 97.7 97 19 99/45 91 Mechanical Ventilator 28 09/23/16 19:15 94 18 28 09/23/16 17:19 103 18 28 09/23/16 16:00 97.7 99 19 99/43 100 Mechanical Ventilator 28 09/23/16 16:00 101 09/23/16 16:00 28 Height (Feet): 5 Height (Inches): 7.00 Weight (Pounds): 300 HEENT: atraumatic Respiratory/Chest: lungs clear Cardiovascular: normal rate, regularly irregular Abdomen: no organomegaly Microbiology Date/Time Source Procedure Growth Status 09/22/16 08:45 Blood Blood Culture - Preliminary NO GROWTH AFTER 48 HOURS Resulted 09/22/16 07:55 Blood Blood Culture - Preliminary Gram Positive Cocci Resulted 09/23/16 10:00 Indwelling Cath Urine Culture - Preliminary NO GROWTH Resulted 09/22/16 10:00 Urine,Clean Catch Urine Culture - Final Escherichia Coli Complete Laboratory Tests Test 09/23/16 23:00 09/24/16 04:00 Vancomycin Level Trough 15.1 ug/mL (5.0-12.0) H Phosphorus Level 2.8 mg/dL (2.5-4.8) Pro-B-Type Natriuretic Peptide 883 pg/mL (0-450) H Current Medications Medications (Trade) Dose Ordered Sig/Boubacar Route PRN Reason Start Time Stop Time Status Last Admin Dose Admin Acetaminophen (Tylenol) 650 mg Q4H PRN ORAL fever 09/22/16 16:00 10/22/16 15:59 Acetaminophen/ Hydrocodone Bitart ([place] 5/325) 1 tab Q4H PRN GT Moderate Pain (Pain Scale 4-6) 09/22/16 16:00 09/29/16 15:59 Al Hydroxide/Mg Hydroxide (Mylanta II) 30 ml Q6H PRN ORAL dyspepsia 09/22/16 16:00 10/22/16 15:59 Dextrose (Dextrose 50%) STAT PRN IV Hypoglycemia 09/22/16 16:00 10/22/16 15:59 Heparin Sodium (Porcine) (Heparin 5000 units/ml) 5,000 units EVERY 12 HOURS SUBQ 09/22/16 21:00 10/22/16 20:59 09/24/16 08:49 Levetiracetam (Keppra) 2,000 mg Q12HR GT 09/22/16 21:00 10/22/16 20:59 09/24/16 08:43 Levothyroxine Sodium 25 mcg 25 mcg ACBREAKFAST GT 09/23/16 06:30 10/23/16 06:29 09/24/16 05:28 Lorazepam (Ativan 2mg/ml 1ml) 2 mg Q1H PRN IV seizures 09/22/16 16:00 09/29/16 15:59 Morphine Sulfate (Morphine Sulfate) 1 mg Q4H PRN IVP Severe Pain (Pain Scale 7-10) 09/22/16 16:00 09/29/16 15:59 Ondansetron HCl (Zofran) 4 mg Q6H PRN IVP Nausea & Vomiting 09/22/16 16:00 10/22/16 15:59 09/23/16 09:56 Pantoprazole (Protonix) 40 mg DAILY IVP 09/23/16 14:00 10/23/16 13:59 09/24/16 08:42 Phenytoin (Dilantin) 200 mg Q12HR GT 09/22/16 21:00 10/22/16 20:59 09/24/16 08:40 Piperacillin Sod/ Tazobactam Sod 3.375 gm/Sodium Chloride 110 ml @ 27.5 mls/hr Q8HR IVPB 09/22/16 22:00 09/29/16 21:59 09/24/16 14:08 Polyethylene Glycol (Miralax) 17 gm HSPRN PRN ORAL Constipation 09/22/16 16:00 10/22/16 15:59 Valproate Sodium/ Sodium Chloride (Depacon Inj/ Sodium Chloride) 125 ml @ 58.035 mls/ hr Q12HR IV 09/22/16 21:00 10/22/16 20:59 09/24/16 08:42 Vancomycin HCl (Vanco rx to dose) 1 ea DAILY PRN MISC Per rx protocol 09/22/16 16:00 10/22/16 15:59 Vancomycin HCl/ Dextrose (Vancomycin/D5W) 275 ml @ 183.333 mls/hr Q12HR@0000,1200 IVPB 09/23/16 00:00 09/29/16 00:00 09/24/16 11:19 Zolpidem Tartrate (Ambien) 5 mg HSPRN PRN ORAL Insomnia 09/22/16 16:00 10/22/16 15:59 HUNG GARCIA M.D. Sep 24, 2016 15:51
[2016-09-24 16:00] VITALS: BP 127/51
--- NOTE | 2016-09-24 16:24 | Pulmonology Progress Note ---
Assessment/Plan Assessment/Plan ASSESSMENT status epilepticus chronic seizure disease exacerbation chronic anoxic encephalopathy possible aspiration PNA VDRF/trach COPD Hx of breast Ca hypothyroidism morbid obesity anemia e/lyte imbalances ( Low P, low Mg) PLAN OF CARE DIANA vent trach care pulmonary toilet ABG stable on current settings, keep as is and titrate as needed last CXR with Cardiomegaly, pulmonary vascular redistribution, bilateral interstitial infiltrates unchanged. fup with CXR on Monday abx, ID follows urine + E coli, blood cx 09/07 GPC strict aspiration precaution, GT feeding, monitor tolerance neuro follows CT head negative for acute pathology management of seizure as per neuro: Dilantin and Keppra fup with EEG results cardio follows ECHO with preserved EF 55-60% and RVSP fo 14, mild LVH no recurrence of Afib, no need for antiarrhythmic meds for now as per cardio DVT prophylaxis bowel regimen case discussed and evaluated by supervising physician Subjective Allergies: Coded Allergies: PEANUT (Verified Allergy, Unknown, 09/22/16) Subjective leukocytosis resolved no signs of respiratory distress on current settings no seizure today converted to SR, no further A fib Objective Last 24 Hour Vital Signs Date Time Temp Pulse Resp B/P Pulse Ox O2 Delivery O2 Flow Rate FiO2 09/24/16 15:13 77 24 35 09/24/16 13:12 77 09/24/16 12:59 75 20 35 09/24/16 12:05 35 09/24/16 12:00 97.7 85 24 118/55 97 Mechanical Ventilator 35 09/24/16 11:08 82 16 35 09/24/16 09:22 83 20 35 09/24/16 08:00 35 09/24/16 08:00 81 09/24/16 08:00 97.9 85 20 114/43 98 Mechanical Ventilator 35 09/24/16 07:20 79 17 35 09/24/16 05:10 84 25 35 09/24/16 04:00 84 09/24/16 04:00 99.5 99 19 115/51 94 Mechanical Ventilator 35 09/24/16 04:00 35 09/24/16 03:07 92 27 35 09/24/16 01:03 90 29 28 09/24/16 00:04 98.6 94 19 105/51 94 Mechanical Ventilator 28 09/24/16 00:00 28 09/23/16 23:34 93 09/23/16 23:30 92 18 28 09/23/16 20:43 91 18 28 09/23/16 20:00 97 09/23/16 20:00 28 09/23/16 20:00 97.7 97 19 99/45 91 Mechanical Ventilator 28 09/23/16 19:15 94 18 28 09/23/16 17:19 103 18 28 Intake and Output 09/23/16 09/24/16 19:00 07:00 Intake Total 1201.330 ml 968.535 ml Output Total 190 ml 750 ml Balance 1011.330 ml 218.535 ml Free Water 100 ml 50 ml IV Total 601.330 ml 418.535 ml Tube Feeding 0 ml 0 ml Other 500 ml 500 ml Output Urine Total 190 ml 750 ml Gastric Drainage Total 0 ml # Bowel Movements 1 1 General Appearance: no acute distress, other - morbidly obese, bedridden, vent dependent AA female Vent AC 500-12-35% HEENT: normocephalic, atraumatic, status post trach - Shiley#8, secretions moderate, yellow, thick Respiratory/Chest: lungs clear - distant , no respiratory distress Cardiovascular: normal rate - SR , regular rhythm Abdomen: normal bowel sounds, soft, non tender - obese Extremities: other - trace edema BLE Neurologic/Psychiatric: abnormal gait - bedridden , other - awake, not responsive to verbal commands, spastic Musculoskeletal: atrophy - BLE Microbiology Date/Time Source Procedure Growth Status 09/22/16 08:45 Blood Blood Culture - Preliminary NO GROWTH AFTER 48 HOURS Resulted 09/22/16 07:55 Blood Blood Culture - Preliminary Gram Positive Cocci Resulted 09/23/16 10:00 Indwelling Cath Urine Culture - Preliminary NO GROWTH Resulted 09/22/16 10:00 Urine,Clean Catch Urine Culture - Final Escherichia Coli Complete Laboratory Tests 09/23/16 23:00: Vancomycin Level Trough 15.1H 09/24/16 04:00: Phosphorus Level 2.8, Pro-B-Type Natriuretic Peptide 883H Current Medications Medications (Trade) Dose Ordered Sig/Boubacar Route PRN Reason Start Time Stop Time Status Last Admin Dose Admin Acetaminophen (Tylenol) 650 mg Q4H PRN ORAL fever 09/22/16 16:00 10/22/16 15:59 Acetaminophen/ Hydrocodone Bitart ([place] 5/325) 1 tab Q4H PRN GT Moderate Pain (Pain Scale 4-6) 09/22/16 16:00 09/29/16 15:59 Al Hydroxide/Mg Hydroxide (Mylanta II) 30 ml Q6H PRN ORAL dyspepsia 09/22/16 16:00 10/22/16 15:59 Dextrose (Dextrose 50%) STAT PRN IV Hypoglycemia 09/22/16 16:00 10/22/16 15:59 Heparin Sodium (Porcine) (Heparin 5000 units/ml) 5,000 units EVERY 12 HOURS SUBQ 09/22/16 21:00 10/22/16 20:59 09/24/16 08:49 Levetiracetam (Keppra) 2,000 mg Q12HR GT 09/22/16 21:00 10/22/16 20:59 09/24/16 08:43 Levothyroxine Sodium 25 mcg 25 mcg ACBREAKFAST GT 09/23/16 06:30 10/23/16 06:29 09/24/16 05:28 Lorazepam (Ativan 2mg/ml 1ml) 2 mg Q1H PRN IV seizures 09/22/16 16:00 09/29/16 15:59 Morphine Sulfate (Morphine Sulfate) 1 mg Q4H PRN IVP Severe Pain (Pain Scale 7-10) 09/22/16 16:00 09/29/16 15:59 Ondansetron HCl (Zofran) 4 mg Q6H PRN IVP Nausea & Vomiting 09/22/16 16:00 10/22/16 15:59 09/23/16 09:56 Pantoprazole (Protonix) 40 mg DAILY IVP 09/23/16 14:00 10/23/16 13:59 09/24/16 08:42 Phenytoin (Dilantin) 200 mg Q12HR GT 09/22/16 21:00 10/22/16 20:59 09/24/16 08:40 Piperacillin Sod/ Tazobactam Sod 3.375 gm/Sodium Chloride 110 ml @ 27.5 mls/hr Q8HR IVPB 09/22/16 22:00 09/29/16 21:59 09/24/16 14:08 Polyethylene Glycol (Miralax) 17 gm HSPRN PRN ORAL Constipation 09/22/16 16:00 10/22/16 15:59 Valproate Sodium/ Sodium Chloride (Depacon Inj/ Sodium Chloride) 125 ml @ 58.035 mls/ hr Q12HR IV 09/22/16 21:00 10/22/16 20:59 09/24/16 08:42 Vancomycin HCl (Vanco rx to dose) 1 ea DAILY PRN MISC Per rx protocol 09/22/16 16:00 10/22/16 15:59 Vancomycin HCl/ Dextrose (Vancomycin/D5W) 275 ml @ 183.333 mls/hr Q12HR@0000,1200 IVPB 09/23/16 00:00 09/29/16 00:00 09/24/16 11:19 Zolpidem Tartrate (Ambien) 5 mg HSPRN PRN ORAL Insomnia 09/22/16 16:00 10/22/16 15:59 Dennis (Eli)Libby NP Sep 24, 2016 16:24
--- NOTE | 2016-09-24 16:55 | Cardiology Progress Note ---
Assessment/Plan Assessment/Plan patient had episdoe of atrial flutter eysterday and converted to sinus rhythm her potassium yesterday was better, will follow K level Subjective Subjective follow for a trial flutter Objective Last 24 Hour Vital Signs Date Time Temp Pulse Resp B/P Pulse Ox O2 Delivery O2 Flow Rate FiO2 09/24/16 15:13 77 24 35 09/24/16 13:12 77 09/24/16 12:59 75 20 35 09/24/16 12:05 35 09/24/16 12:00 97.7 85 24 118/55 97 Mechanical Ventilator 35 09/24/16 11:08 82 16 35 09/24/16 09:22 83 20 35 09/24/16 08:00 35 09/24/16 08:00 81 09/24/16 08:00 97.9 85 20 114/43 98 Mechanical Ventilator 35 09/24/16 07:20 79 17 35 09/24/16 05:10 84 25 35 09/24/16 04:00 84 09/24/16 04:00 99.5 99 19 115/51 94 Mechanical Ventilator 35 09/24/16 04:00 35 09/24/16 03:07 92 27 35 09/24/16 01:03 90 29 28 09/24/16 00:04 98.6 94 19 105/51 94 Mechanical Ventilator 28 09/24/16 00:00 28 09/23/16 23:34 93 09/23/16 23:30 92 18 28 09/23/16 20:43 91 18 28 09/23/16 20:00 97 09/23/16 20:00 28 09/23/16 20:00 97.7 97 19 99/45 91 Mechanical Ventilator 28 09/23/16 19:15 94 18 28 09/23/16 17:19 103 18 28 General Appearance: on vent, other - comatose EENT: other Neck: other - no JVD Rhythm: NSR Cardiovascular: normal rate Respiratory/Chest: rhonchi - bilaterally Abdomen: distended Intake and Output 09/23/16 09/24/16 19:00 07:00 Intake Total 1201.330 ml 968.535 ml Output Total 190 ml 750 ml Balance 1011.330 ml 218.535 ml Free Water 100 ml 50 ml IV Total 601.330 ml 418.535 ml Tube Feeding 0 ml 0 ml Other 500 ml 500 ml Output Urine Total 190 ml 750 ml Gastric Drainage Total 0 ml # Bowel Movements 1 1 Laboratory Tests Test 09/23/16 23:00 09/24/16 04:00 Vancomycin Level Trough 15.1 ug/mL (5.0-12.0) H Phosphorus Level 2.8 mg/dL (2.5-4.8) Pro-B-Type Natriuretic Peptide 883 pg/mL (0-450) H Microbiology Date/Time Source Procedure Growth Status 09/22/16 08:45 Blood Blood Culture - Preliminary NO GROWTH AFTER 48 HOURS Resulted 09/22/16 07:55 Blood Blood Culture - Preliminary Gram Positive Cocci Resulted 09/23/16 10:00 Indwelling Cath Urine Culture - Preliminary NO GROWTH Resulted 09/22/16 10:00 Urine,Clean Catch Urine Culture - Final Escherichia Coli Complete DONTE BUTCHER Sep 24, 2016 16:55
[2016-09-24 17:29] LABS: ANION GAP 14 (5-15); CALCIUM 8.6 mg/dL (8.6-10.2); CARBON DIOXIDE 31 mEQ/L (20-30); CHLORIDE 92 mEQ/L (98-107); CREATININE 0.4 mg/dL (0.5-0.9); HEMOLYSIS 0; SODIUM 137 mEQ/L (135-145)
[2016-09-24 20:00] VITALS: BP 99/48
[2016-09-25] VITALS: BP 120/55
[2016-09-25] MEDS: Vancomycin 1.25 GM in D5W 275 ML IVPB SCH ×2 (00:03→12:08)
[2016-09-25 04:00] VITALS: BP 118/55
[2016-09-25] MEDS: Levothyroxine 25mcg tab GT SCH (06:00)
[2016-09-25] MEDS: Piperacillin/Tazobactam 3.375 GM in NS 110 ML IVPB SCH ×3 (06:00→22:02)
[2016-09-25 06:29] LABS: BASOPHILS % (AUTO) 0.7 % (0.0-2.0); EOSINOPHILS % (AUTO) 4.3 % (0.0-3.0); LYMPHOCYTES % (AUTO) 12.2 % (20.0-45.0); MEAN CORPUSCULAR HEMOGLOBIN 32.2 PG (27.0-31.0); MEAN CORPUSCULAR HGB CONC 30.9 G/DL (32.0-36.0); MEAN CORPUSCULAR VOLUME 104 FL (80-99); MEAN PLATELET VOLUME 7.9 FL (6.5-10.1); NEUTROPHILS % (AUTO) 74.8 % (45.0-75.0); PLATELET COUNT 280 K/UL (150-450); RED BLOOD COUNT 2.49 M/UL (4.20-5.40); RED CELL DISTRIBUTION WIDTH 17.4 % (11.6-14.8); WHITE BLOOD COUNT 7.1 K/UL (4.8-10.8)
[2016-09-25 06:47] LABS: CALCIUM 8.7 mg/dL (8.6-10.2); CARBON DIOXIDE 34 mEQ/L (20-30); CHLORIDE 94 mEQ/L (98-107); CREATININE 0.3 mg/dL (0.5-0.9); HEMOLYSIS 0; SODIUM 140 mEQ/L (135-145)
[2016-09-25 06:53] LABS: ANION GAP 12 (5-15)
[2016-09-25 07:16] LABS: POTASSIUM 2.6 mEQ/L (3.4-4.9)
[2016-09-25 08:00] VITALS: BP 160/73
[2016-09-25] MEDS: Phenytoin Susp 100mg/4ml GT SCH ×2 (08:50→22:02)
[2016-09-25] MEDS: Pantoprazole Inj IVP SCH (08:51)
[2016-09-25] MEDS: levETIRAcetam 500mg/5ml Liquid GT SCH ×2 (08:51→22:04)
[2016-09-25] MEDS ORDERED: KCl 10% 40mEq/30ml liquid NG SCH (09:00)
[2016-09-25] MEDS: VALPROATE SODIUM IV SCH ×2 (09:01→22:02)
[2016-09-25] MEDS: NS IV SCH ×2 (09:01→22:02)
[2016-09-25] MEDS: Heparin 5000 units/ml inj SUBQ SCH ×2 (09:07→22:06)
[2016-09-25] MEDS ORDERED: DuoNeb 0.5-3(2.5)mg/3ml neb HHN PRN (10:00)
--- NOTE | 2016-09-25 10:01 | Pulmonology Progress Note ---
Assessment/Plan Assessment/Plan ASSESSMENT status epilepticus chronic seizure disease exacerbation chronic anoxic encephalopathy possible aspiration PNA VDRF/trach COPD Hx of breast Ca hypothyroidism morbid obesity anemia e/lyte imbalances ( Low P, low Mg, low K ) PLAN OF CARE DIANA vent trach care pulmonary toilet ABG stable on current settings, keep as is and titrate as needed last CXR with Cardiomegaly, pulmonary vascular redistribution, bilateral interstitial infiltrates unchanged. fup with CXR on Monday on exam sounded wet with bilateral diffused crackles, will give lasix 60 mg x1 with potassium ( total KCL-80 carmenza) abx, ID follows urine + E coli, blood cx 1/2 SCON, repeated urine cx negative strict aspiration precaution, GT feeding, monitor tolerance neuro follows CT head negative for acute pathology management of seizure as per neuro: Malina fup with EEG results cardio follows ECHO with preserved EF 55-60% and RVSP fo 14, mild LVH no recurrence of Afib, no need for antiarrhythmic meds for now as per cardio DVT prophylaxis bowel regimen case discussed and evaluated by supervising physician Subjective Allergies: Coded Allergies: PEANUT (Verified Allergy, Unknown, 09/22/16) Subjective leukocytosis resolved no signs of respiratory distress on current settings no visible seizure activity converted to SR, no further A fib K-2.6 today HH remains at baseline, slightly up -8.0/26 Objective Last 24 Hour Vital Signs Date Time Temp Pulse Resp B/P Pulse Ox O2 Delivery O2 Flow Rate FiO2 09/25/16 09:04 78 12 35 09/25/16 06:57 85 16 35 09/25/16 05:10 88 16 35 09/25/16 04:00 35 09/25/16 04:00 98.4 89 17 118/55 100 Mechanical Ventilator 35 09/25/16 03:52 79 09/25/16 03:18 85 16 35 09/25/16 01:13 89 19 35 09/25/16 00:00 98.2 89 19 120/55 100 Mechanical Ventilator 35 09/25/16 00:00 35 09/24/16 23:43 86 09/24/16 22:50 91 20 35 09/24/16 20:45 80 18 35 09/24/16 20:00 98.2 88 20 99/48 99 Mechanical Ventilator 35 09/24/16 20:00 35 09/24/16 20:00 88 09/24/16 19:22 75 12 35 09/24/16 17:09 80 25 35 09/24/16 16:00 35 09/24/16 16:00 83 09/24/16 16:00 97.7 83 16 127/51 94 Mechanical Ventilator 35 09/24/16 15:13 77 24 35 09/24/16 13:12 77 09/24/16 12:59 75 20 35 09/24/16 12:05 35 09/24/16 12:00 97.7 85 24 118/55 97 Mechanical Ventilator 35 09/24/16 11:08 82 16 35 Intake and Output 09/24/16 09/25/16 19:00 07:00 Intake Total 1567.5 ml 1487.500 ml Output Total 960 ml 1265 ml Balance 607.5 ml 222.500 ml Free Water 250 ml 200 ml IV Total 537.5 ml 537.500 ml Other 780 ml 750 ml Output Urine Total 960 ml 1260 ml Drainage Total 5 ml # Bowel Movements 2 2 Objective General Appearance: no acute distress, other - morbidly obese, bedridden, vent dependent AA female Vent AC 500-12-35% HEENT: normocephalic, atraumatic, status post trach - Shiley#8, secretions moderate, yellow, thick Respiratory/Chest: lungs with scattered crackles bilaterally, Cardiovascular: normal rate - SR , regular rhythm Abdomen: normal bowel sounds, soft, non tender - obese Extremities: trace edema BLE Neurologic/Psychiatric: bedridden , eyes open, but not responsive to verbal commands, spastic Musculoskeletal: atrophy - BLE Microbiology Date/Time Source Procedure Growth Status 09/23/16 10:00 Indwelling Cath Urine Culture - Preliminary NO GROWTH Resulted 09/22/16 10:00 Urine,Clean Catch Urine Culture - Final Escherichia Coli Complete Laboratory Tests 09/25/16 04:30: White Blood Count 7.1, Red Blood Count 2.49L, Hemoglobin 8.0L, Hematocrit 26.0L , Mean Corpuscular Volume 104H, Mean Corpuscular Hemoglobin 32.2H, Mean Corpuscular Hemoglobin Concent 30.9L, Red Cell Distribution Width 17.4H, Platelet Count 280, Mean Platelet Volume 7.9, Neutrophils (%) (Auto) 74.8, Lymphocytes (%) (Auto) 12.2L, Monocytes (%) (Auto) 8.0, Eosinophils (%) (Auto) 4.3H, Basophils (%) (Auto) 0.7, Sodium Level 140, Potassium Level 2.6*L, Chloride Level 94L, Carbon Dioxide Level 34H, Anion Gap 12, Blood Urea Nitrogen 4L, Creatinine 0.3L, Estimat Glomerular Filtration Rate , Glucose Level 87, Calcium Level 8.7, Free Thyroxine 0.63L Current Medications Medications (Trade) Dose Ordered Sig/Boubacar Route PRN Reason Start Time Stop Time Status Last Admin Dose Admin Acetaminophen (Tylenol) 650 mg Q4H PRN ORAL fever 09/22/16 16:00 10/22/16 15:59 Acetaminophen/ Hydrocodone Bitart ([place] 5/325) 1 tab Q4H PRN GT Moderate Pain (Pain Scale 4-6) 09/22/16 16:00 09/29/16 15:59 Al Hydroxide/Mg Hydroxide (Mylanta II) 30 ml Q6H PRN ORAL dyspepsia 09/22/16 16:00 10/22/16 15:59 Dextrose (Dextrose 50%) STAT PRN IV Hypoglycemia 09/22/16 16:00 10/22/16 15:59 Heparin Sodium (Porcine) (Heparin 5000 units/ml) 5,000 units EVERY 12 HOURS SUBQ 09/22/16 21:00 10/22/16 20:59 09/25/16 09:07 Levetiracetam (Keppra) 2,000 mg Q12HR GT 09/22/16 21:00 10/22/16 20:59 09/25/16 08:51 Levothyroxine Sodium 25 mcg 25 mcg ACBREAKFAST GT 09/23/16 06:30 10/23/16 06:29 09/25/16 06:00 Lorazepam (Ativan 2mg/ml 1ml) 2 mg Q1H PRN IV seizures 09/22/16 16:00 09/29/16 15:59 09/25/16 08:50 Morphine Sulfate (Morphine Sulfate) 1 mg Q4H PRN IVP Severe Pain (Pain Scale 7-10) 09/22/16 16:00 09/29/16 15:59 Ondansetron HCl (Zofran) 4 mg Q6H PRN IVP Nausea & Vomiting 09/22/16 16:00 10/22/16 15:59 09/25/16 08:52 Pantoprazole (Protonix) 40 mg DAILY IVP 09/23/16 14:00 10/23/16 13:59 09/25/16 08:51 Phenytoin (Dilantin) 200 mg Q12HR GT 09/22/16 21:00 10/22/16 20:59 09/25/16 08:50 Piperacillin Sod/ Tazobactam Sod 3.375 gm/Sodium Chloride 110 ml @ 27.5 mls/hr Q8HR IVPB 09/22/16 22:00 09/29/16 21:59 09/25/16 06:00 Polyethylene Glycol (Miralax) 17 gm HSPRN PRN ORAL Constipation 09/22/16 16:00 10/22/16 15:59 Potassium Chloride (KCl 10% 40mEq Oral solution) 40 meq DAILY NG 09/25/16 09:00 10/25/16 08:59 09/25/16 09:01 Valproate Sodium/ Sodium Chloride (Depacon Inj/ Sodium Chloride) 125 ml @ 58.035 mls/ hr Q12HR IV 09/22/16 21:00 10/22/16 20:59 09/25/16 09:01 Vancomycin HCl (Vanco rx to dose) 1 ea DAILY PRN MISC Per rx protocol 09/22/16 16:00 10/22/16 15:59 Vancomycin HCl/ Dextrose (Vancomycin/D5W) 275 ml @ 183.333 mls/hr Q12HR@0000,1200 IVPB 09/23/16 00:00 09/29/16 00:00 09/25/16 00:03 Zolpidem Tartrate (Ambien) 5 mg HSPRN PRN ORAL Insomnia 09/22/16 16:00 10/22/16 15:59 Dennis (Eli)Libby NP Sep 25, 2016 10:01
[2016-09-25] MEDS ORDERED: KCl 10% 40mEq/30ml liquid NG ONE (10:45)
[2016-09-25 12:00] VITALS: BP 115/51
[2016-09-25] MEDS ORDERED: NS 275ml ONE (12:42)
[2016-09-25] MEDS ORDERED: Tubing IV Secondary IV ONE (12:42)
[2016-09-25 16:00] VITALS: BP 81/34
[2016-09-25 16:25] LABS: ANION GAP 7 (5-15); CALCIUM 8.5 mg/dL (8.6-10.2); CARBON DIOXIDE 38 mEQ/L (20-30); CHLORIDE 96 mEQ/L (98-107); CREATININE 0.4 mg/dL (0.5-0.9); HEMOLYSIS 13; POTASSIUM 3.1 mEQ/L (3.4-4.9); SODIUM 141 mEQ/L (135-145)
--- NOTE | 2016-09-25 16:28 | Cardiology Progress Note ---
Assessment/Plan Status: stable, unchanged Status Narrative No further AFL noted on telemetry. Maintaining sinus rhythm. Elevated TSH and low free t4 noted, c/w hypothyroidism Assessment/Plan Continue telemetry monitoring. hold antiarrhythmic agents unless hemodyn significant atrial tachyarrhythmias. consider increasing synthroid, in view of TFT results. Subjective ROS Limited/Unobtainable: No Subjective intubated/ unresponsive Objective Last 24 Hour Vital Signs Date Time Temp Pulse Resp B/P Pulse Ox O2 Delivery O2 Flow Rate FiO2 09/25/16 15:11 85 12 35 09/25/16 13:02 87 12 35 09/25/16 12:00 97.0 85 15 115/51 100 Mechanical Ventilator 35 09/25/16 12:00 35 09/25/16 12:00 80 09/25/16 10:54 74 12 35 09/25/16 09:04 78 12 35 09/25/16 08:00 76 09/25/16 08:00 35 09/25/16 08:00 98.1 91 27 160/73 99 Mechanical Ventilator 35 09/25/16 06:57 85 16 35 09/25/16 05:10 88 16 35 09/25/16 04:00 35 09/25/16 04:00 98.4 89 17 118/55 100 Mechanical Ventilator 35 09/25/16 03:52 79 09/25/16 03:18 85 16 35 09/25/16 01:13 89 19 35 09/25/16 00:00 98.2 89 19 120/55 100 Mechanical Ventilator 35 09/25/16 00:00 35 09/24/16 23:43 86 09/24/16 22:50 91 20 35 09/24/16 20:45 80 18 35 09/24/16 20:00 98.2 88 20 99/48 99 Mechanical Ventilator 35 09/24/16 20:00 35 09/24/16 20:00 88 09/24/16 19:22 75 12 35 09/24/16 17:09 80 25 35 General Appearance: obese, on vent Neck: supple, other - trach Rhythm: NSR Cardiovascular: normal rate, regular rhythm, no gallop/murmur Respiratory/Chest: other - occ rhonchi Abdomen: soft, other - g tube, biliary drain Extremities: trace edema - trace periph ue, le edema bilat Intake and Output 09/24/16 09/25/16 19:00 07:00 Intake Total 1567.5 ml 1487.500 ml Output Total 960 ml 1265 ml Balance 607.5 ml 222.500 ml Free Water 250 ml 200 ml IV Total 537.5 ml 537.500 ml Other 780 ml 750 ml Output Urine Total 960 ml 1260 ml Drainage Total 5 ml # Bowel Movements 2 2 Laboratory Tests Test 09/25/16 04:30 09/25/16 15:45 White Blood Count 7.1 K/UL (4.8-10.8) Red Blood Count 2.49 M/UL (4.20-5.40) L Hemoglobin 8.0 G/DL (12.0-16.0) L Hematocrit 26.0 % (37.0-47.0) L Mean Corpuscular Volume 104 FL (80-99) H Mean Corpuscular Hemoglobin 32.2 PG (27.0-31.0) H Mean Corpuscular Hemoglobin Concent 30.9 G/DL (32.0-36.0) L Red Cell Distribution Width 17.4 % (11.6-14.8) H Platelet Count 280 K/UL (150-450) Mean Platelet Volume 7.9 FL (6.5-10.1) Neutrophils (%) (Auto) 74.8 % (45.0-75.0) Lymphocytes (%) (Auto) 12.2 % (20.0-45.0) L Monocytes (%) (Auto) 8.0 % (1.0-10.0) Eosinophils (%) (Auto) 4.3 % (0.0-3.0) H Basophils (%) (Auto) 0.7 % (0.0-2.0) Sodium Level 140 mEQ/L (135-145) Pending Potassium Level 2.6 mEQ/L (3.4-4.9) *L Pending Chloride Level 94 mEQ/L (98-107) L Pending Carbon Dioxide Level 34 mEQ/L (20-30) H Pending Anion Gap 12 (5-15) Blood Urea Nitrogen 4 mg/dL (7-23) L Pending Creatinine 0.3 mg/dL (0.5-0.9) L Pending Estimat Glomerular Filtration Rate mL/min (>60) Pending Glucose Level 87 mg/dL (74-106) Pending Calcium Level 8.7 mg/dL (8.6-10.2) Pending Free Thyroxine 0.63 ng/dL (0.86-1.85) L Microbiology Date/Time Source Procedure Growth Status 09/23/16 10:00 Indwelling Cath Urine Culture - Preliminary Mixed Gram Positive Organism Resulted DEJON MCEKON Sep 25, 2016 16:28
[2016-09-25 20:00] VITALS: BP 101/46
[2016-09-26] VITALS: BP 117/56
[2016-09-26] MEDS: Vancomycin 1.25 GM in D5W 275 ML IVPB SCH (02:15)
[2016-09-26 04:00] VITALS: BP 122/54
[2016-09-26] MEDS: Levothyroxine 25mcg tab GT SCH (05:30)
[2016-09-26] MEDS: Piperacillin/Tazobactam 3.375 GM in NS 110 ML IVPB SCH ×2 (05:30→14:00)
[2016-09-26 06:15] LABS: BASOPHILS % (AUTO) 0.8 % (0.0-2.0); EOSINOPHILS % (AUTO) 7.1 % (0.0-3.0); LYMPHOCYTES % (AUTO) 15.3 % (20.0-45.0); MEAN CORPUSCULAR HEMOGLOBIN 32.7 PG (27.0-31.0); MEAN CORPUSCULAR HGB CONC 31.5 G/DL (32.0-36.0); MEAN CORPUSCULAR VOLUME 104 FL (80-99); MEAN PLATELET VOLUME 7.6 FL (6.5-10.1); MONOCYTES % (AUTO) 10.1 % (1.0-10.0); NEUTROPHILS % (AUTO) 66.7 % (45.0-75.0); PLATELET COUNT 281 K/UL (150-450); RED BLOOD COUNT 2.46 M/UL (4.20-5.40); WHITE BLOOD COUNT 5.4 K/UL (4.8-10.8)
[2016-09-26 06:43] LABS: ANION GAP 12 (5-15); CARBON DIOXIDE 33 mEQ/L (20-30); CHLORIDE 97 mEQ/L (98-107); CREATININE 0.3 mg/dL (0.5-0.9); HEMOLYSIS 0; POTASSIUM 3.6 mEQ/L (3.4-4.9); SODIUM 142 mEQ/L (135-145)
[2016-09-26 08:00] VITALS: BP 125/57
[2016-09-26] MEDS: levETIRAcetam 500mg/5ml Liquid GT SCH ×2 (09:24→20:35)
[2016-09-26] MEDS: VALPROATE SODIUM IV SCH ×2 (09:24→20:34)
[2016-09-26] MEDS: Heparin 5000 units/ml inj SUBQ SCH ×2 (09:24→20:37)
[2016-09-26] MEDS: NS IV SCH ×2 (09:24→20:34)
[2016-09-26] MEDS: Pantoprazole Inj IVP SCH (09:24)
[2016-09-26] MEDS: Phenytoin Susp 100mg/4ml GT SCH ×2 (09:25→20:35)
--- NOTE | 2016-09-26 10:29 | Infectious Diseases Prog Note ---
Assessment/Plan Assessment/Plan ASSESSMENT: 76 y/o female with: // Possible aspiration PNA / pneumonitis - SCx pending - CXR 09/23: Mild congestion, unchanged // GNR UTI vs colonization -UCX :Ecoli // Leukocytosis - SP // Fever -SP // Bcx : CoNS contaminant // Alk Ph ro Biliary Dis // Breakthrough seizure - CT Head: No acute intracranial bleed, mass effect or edema. Mild atrophy of the brain. Nonspecific white matter hypoattenuation probably due to chronic small vessel disease. // Chronic anoxic encephalopathy // Chronic VDRF SP trach, PEG // h/o breast CA // Morbid obesity // No ABX allergies // Full Code PLAN: - continue IV zosyn d# 6 / 7. , DC IV Vanco d # 6 ( 09/23 SP amikacin d# 3 ) - f/u cultures, - monitor CBC, temperatures - monitor BMP - monitor CXR - vent support, trach care, aspiration precautions - seizure precautions - US of liver Subjective Constitutional: Denies: anorexia, chills, drenching sweats, fatigue, fever, no symptoms, other Allergies: Coded Allergies: PEANUT (Verified Allergy, Unknown, 09/22/16) Objective Vital Signs Last 24 Hour Vital Signs Date Time Temp Pulse Resp B/P Pulse Ox O2 Delivery O2 Flow Rate FiO2 09/26/16 09:20 80 23 Mechanical Ventilator 35 09/26/16 09:20 80 18 35 09/26/16 08:00 80 09/26/16 08:00 97.9 80 16 125/57 100 Mechanical Ventilator 35 09/26/16 08:00 35 09/26/16 07:23 82 14 35 09/26/16 05:19 86 19 35 09/26/16 04:00 98.1 83 17 122/54 100 Mechanical Ventilator 35 09/26/16 04:00 35 09/26/16 03:58 84 09/26/16 03:07 88 16 35 09/26/16 01:05 87 17 35 09/26/16 00:00 97.9 87 17 117/56 93 Mechanical Ventilator 35 09/26/16 00:00 35 09/25/16 23:59 89 09/25/16 23:28 86 20 35 09/25/16 21:25 79 18 35 09/25/16 20:00 85 09/25/16 20:00 35 09/25/16 20:00 97.7 85 17 101/46 93 Mechanical Ventilator 35 09/25/16 19:03 85 19 35 09/25/16 17:03 81 15 35 09/25/16 16:00 35 09/25/16 16:00 92 09/25/16 16:00 96.4 85 18 81/34 99 Mechanical Ventilator 35 09/25/16 15:11 85 12 35 09/25/16 13:02 87 12 35 09/25/16 12:00 97.0 85 15 115/51 100 Mechanical Ventilator 35 09/25/16 12:00 35 09/25/16 12:00 80 09/25/16 10:54 74 12 35 Height (Feet): 5 Height (Inches): 7.00 Weight (Pounds): 300 HEENT: atraumatic Respiratory/Chest: lungs clear Cardiovascular: normal rate Abdomen: soft, non tender, no organomegaly Microbiology Date/Time Source Procedure Growth Status 09/25/16 04:40 Sputum Gram Stain Pending Resulted 09/25/16 04:40 Sputum Sputum Culture - Preliminary NO GROWTH Resulted Laboratory Tests Test 09/25/16 15:45 09/26/16 05:20 Sodium Level 141 mEQ/L (135-145) 142 mEQ/L (135-145) Potassium Level 3.1 mEQ/L (3.4-4.9) L 3.6 mEQ/L (3.4-4.9) Chloride Level 96 mEQ/L (98-107) L 97 mEQ/L (98-107) L Carbon Dioxide Level 38 mEQ/L (20-30) H 33 mEQ/L (20-30) H Anion Gap 7 (5-15) 12 (5-15) Blood Urea Nitrogen 4 mg/dL (7-23) L 4 mg/dL (7-23) L Creatinine 0.4 mg/dL (0.5-0.9) L 0.3 mg/dL (0.5-0.9) L Estimat Glomerular Filtration Rate mL/min (>60) mL/min (>60) Glucose Level 115 mg/dL (74-106) H 84 mg/dL (74-106) Calcium Level 8.5 mg/dL (8.6-10.2) L 9.0 mg/dL (8.6-10.2) White Blood Count 5.4 K/UL (4.8-10.8) Red Blood Count 2.46 M/UL (4.20-5.40) L Hemoglobin 8.1 G/DL (12.0-16.0) L Hematocrit 25.5 % (37.0-47.0) L Mean Corpuscular Volume 104 FL (80-99) H Mean Corpuscular Hemoglobin 32.7 PG (27.0-31.0) H Mean Corpuscular Hemoglobin Concent 31.5 G/DL (32.0-36.0) L Red Cell Distribution Width 17.0 % (11.6-14.8) H Platelet Count 281 K/UL (150-450) Mean Platelet Volume 7.6 FL (6.5-10.1) Neutrophils (%) (Auto) 66.7 % (45.0-75.0) Lymphocytes (%) (Auto) 15.3 % (20.0-45.0) L Monocytes (%) (Auto) 10.1 % (1.0-10.0) H Eosinophils (%) (Auto) 7.1 % (0.0-3.0) H Basophils (%) (Auto) 0.8 % (0.0-2.0) Vitamin B12 Level 534 pg/mL (211-946) Current Medications Medications (Trade) Dose Ordered Sig/Boubacar Route PRN Reason Start Time Stop Time Status Last Admin Dose Admin Acetaminophen (Tylenol) 650 mg Q4H PRN ORAL fever 09/22/16 16:00 10/22/16 15:59 Acetaminophen/ Hydrocodone Bitart ([place] 5/325) 1 tab Q4H PRN GT Moderate Pain (Pain Scale 4-6) 09/22/16 16:00 09/29/16 15:59 Al Hydroxide/Mg Hydroxide (Mylanta II) 30 ml Q6H PRN ORAL dyspepsia 09/22/16 16:00 10/22/16 15:59 Albuterol/ Ipratropium (DuoNeb 0.5-3(2.5)mg/3ml) 3 ml Q4H PRN HHN Shortness of Breath 09/25/16 10:00 09/30/16 09:59 Dextrose (Dextrose 50%) STAT PRN IV Hypoglycemia 09/22/16 16:00 10/22/16 15:59 Heparin Sodium (Porcine) (Heparin 5000 units/ml) 5,000 units EVERY 12 HOURS SUBQ 09/22/16 21:00 10/22/16 20:59 09/26/16 09:24 Levetiracetam (Keppra) 2,000 mg Q12HR GT 09/22/16 21:00 10/22/16 20:59 09/26/16 09:24 Levothyroxine Sodium 25 mcg 25 mcg ACBREAKFAST GT 09/23/16 06:30 10/23/16 06:29 09/26/16 05:30 Lorazepam (Ativan 2mg/ml 1ml) 2 mg Q1H PRN IV seizures 09/22/16 16:00 09/29/16 15:59 09/25/16 08:50 Morphine Sulfate (Morphine Sulfate) 1 mg Q4H PRN IVP Severe Pain (Pain Scale 7-10) 09/22/16 16:00 09/29/16 15:59 Ondansetron HCl (Zofran) 4 mg Q6H PRN IVP Nausea & Vomiting 09/22/16 16:00 10/22/16 15:59 09/25/16 08:52 Pantoprazole (Protonix) 40 mg DAILY IVP 09/23/16 14:00 10/23/16 13:59 09/26/16 09:24 Phenytoin (Dilantin) 200 mg Q12HR GT 09/22/16 21:00 10/22/16 20:59 09/26/16 09:25 Piperacillin Sod/ Tazobactam Sod 3.375 gm/Sodium Chloride 110 ml @ 27.5 mls/hr Q8HR IVPB 09/22/16 22:00 09/29/16 21:59 09/26/16 05:30 Polyethylene Glycol (Miralax) 17 gm HSPRN PRN ORAL Constipation 09/22/16 16:00 10/22/16 15:59 Valproate Sodium/ Sodium Chloride (Depacon Inj/ Sodium Chloride) 125 ml @ 58.035 mls/ hr Q12HR IV 09/22/16 21:00 10/22/16 20:59 09/26/16 09:24 Vancomycin HCl (Vanco rx to dose) 1 ea DAILY PRN MISC Per rx protocol 09/22/16 16:00 10/22/16 15:59 Vancomycin HCl/ Dextrose (Vancomycin/D5W) 275 ml @ 183.333 mls/hr Q12HR@0000,1200 IVPB 09/23/16 00:00 09/29/16 00:00 09/26/16 02:15 Zolpidem Tartrate (Ambien) 5 mg HSPRN PRN ORAL Insomnia 09/22/16 16:00 10/22/16 15:59 HUNG GARCIA M.D. Sep 26, 2016 10:29
--- NOTE | 2016-09-26 11:04 | Diagnostic Imaging Report ---
Indication: Dyspnea Comparison: 09/23/16 A single view chest radiograph was obtained. Findings: Heart is enlarged. There is a tracheostomy present. Vascularity is somewhat prominent. Bones are osteopenic. PICC line is present in good position. Impression: No significant change. Mild CHF may be present
[2016-09-26 12:00] VITALS: BP 128/58
--- NOTE | 2016-09-26 12:54 | Pulmonology Progress Note ---
Assessment/Plan Problems: (1) Status epilepticus (2) Aspiration pneumonia (3) Chronic respiratory failure (4) Feeding by G-tube (5) Cholecystostomy care (6) Vegetative state Assessment/Plan afebrile improving no seizures tolerating feeding dc to halfway consider comfort care Subjective ROS Limited/Unobtainable: Yes Allergies: Coded Allergies: PEANUT (Verified Allergy, Unknown, 09/22/16) Objective Last 24 Hour Vital Signs Date Time Temp Pulse Resp B/P Pulse Ox O2 Delivery O2 Flow Rate FiO2 09/26/16 11:24 77 15 35 09/26/16 09:20 80 23 Mechanical Ventilator 35 09/26/16 09:20 80 18 35 09/26/16 08:00 80 09/26/16 08:00 97.9 80 16 125/57 100 Mechanical Ventilator 35 09/26/16 08:00 35 09/26/16 07:23 82 14 35 09/26/16 05:19 86 19 35 09/26/16 04:00 98.1 83 17 122/54 100 Mechanical Ventilator 35 09/26/16 04:00 35 09/26/16 03:58 84 09/26/16 03:07 88 16 35 09/26/16 01:05 87 17 35 09/26/16 00:00 97.9 87 17 117/56 93 Mechanical Ventilator 35 09/26/16 00:00 35 09/25/16 23:59 89 09/25/16 23:28 86 20 35 09/25/16 21:25 79 18 35 09/25/16 20:00 85 09/25/16 20:00 35 09/25/16 20:00 97.7 85 17 101/46 93 Mechanical Ventilator 35 09/25/16 19:03 85 19 35 09/25/16 17:03 81 15 35 09/25/16 16:00 35 09/25/16 16:00 92 09/25/16 16:00 96.4 85 18 81/34 99 Mechanical Ventilator 35 09/25/16 15:11 85 12 35 09/25/16 13:02 87 12 35 Intake and Output 09/25/16 09/26/16 19:00 07:00 Intake Total 1582.500 ml 1637.500 ml Output Total 2970 ml 605 ml Balance -1387.500 ml 1032.500 ml Free Water 240 ml 200 ml IV Total 592.500 ml 687.500 ml Other 750 ml 750 ml Output Urine Total 2970 ml 605 ml # Bowel Movements 2 1 General Appearance: WD/WN HEENT: normocephalic, atraumatic Respiratory/Chest: chest wall non-tender, normal breath sounds Cardiovascular: normal peripheral pulses, normal rate Abdomen: soft, non tender, no organomegaly Genitourinary: normal external genitalia Extremities: no cyanosis Skin: no rash Lymphatic: no neck adenopathy Microbiology Date/Time Source Procedure Growth Status 09/25/16 04:40 Sputum Gram Stain - Final Resulted 09/25/16 04:40 Sputum Sputum Culture - Preliminary NO GROWTH Resulted Laboratory Tests 09/25/16 15:45: Sodium Level 141, Potassium Level 3.1L, Chloride Level 96L, Carbon Dioxide Level 38H, Anion Gap 7, Blood Urea Nitrogen 4L, Creatinine 0.4L, Estimat Glomerular Filtration Rate , Glucose Level 115H, Calcium Level 8.5L 09/26/16 05:20: Sodium Level 142, Potassium Level 3.6, Chloride Level 97L, Carbon Dioxide Level 33H, Anion Gap 12, Blood Urea Nitrogen 4L, Creatinine 0.3L, Estimat Glomerular Filtration Rate , Glucose Level 84, Calcium Level 9.0, White Blood Count 5.4, Red Blood Count 2.46L, Hemoglobin 8.1L, Hematocrit 25.5L, Mean Corpuscular Volume 104H, Mean Corpuscular Hemoglobin 32.7H, Mean Corpuscular Hemoglobin Concent 31.5L, Red Cell Distribution Width 17.0H, Platelet Count 281, Mean Platelet Volume 7.6, Neutrophils (%) (Auto) 66.7, Lymphocytes (%) (Auto) 15.3L, Monocytes (%) (Auto) 10.1H, Eosinophils (%) (Auto) 7.1H, Basophils (%) (Auto) 0.8, Vitamin B12 Level 534 Current Medications Medications (Trade) Dose Ordered Sig/Boubacar Route PRN Reason Start Time Stop Time Status Last Admin Dose Admin Acetaminophen (Tylenol) 650 mg Q4H PRN ORAL fever 09/22/16 16:00 10/22/16 15:59 Acetaminophen/ Hydrocodone Bitart ([place] 5/325) 1 tab Q4H PRN GT Moderate Pain (Pain Scale 4-6) 09/22/16 16:00 09/29/16 15:59 Al Hydroxide/Mg Hydroxide (Mylanta II) 30 ml Q6H PRN ORAL dyspepsia 09/22/16 16:00 10/22/16 15:59 Albuterol/ Ipratropium (DuoNeb 0.5-3(2.5)mg/3ml) 3 ml Q4H PRN HHN Shortness of Breath 09/25/16 10:00 09/30/16 09:59 Dextrose (Dextrose 50%) STAT PRN IV Hypoglycemia 09/22/16 16:00 10/22/16 15:59 Heparin Sodium (Porcine) (Heparin 5000 units/ml) 5,000 units EVERY 12 HOURS SUBQ 09/22/16 21:00 10/22/16 20:59 09/26/16 09:24 Levetiracetam (Keppra) 2,000 mg Q12HR GT 09/22/16 21:00 10/22/16 20:59 09/26/16 09:24 Levothyroxine Sodium 25 mcg 25 mcg ACBREAKFAST GT 09/23/16 06:30 10/23/16 06:29 09/26/16 05:30 Lorazepam (Ativan 2mg/ml 1ml) 2 mg Q1H PRN IV seizures 09/22/16 16:00 09/29/16 15:59 09/25/16 08:50 Morphine Sulfate (Morphine Sulfate) 1 mg Q4H PRN IVP Severe Pain (Pain Scale 7-10) 09/22/16 16:00 09/29/16 15:59 Ondansetron HCl (Zofran) 4 mg Q6H PRN IVP Nausea & Vomiting 09/22/16 16:00 10/22/16 15:59 09/25/16 08:52 Pantoprazole (Protonix) 40 mg DAILY IVP 09/23/16 14:00 10/23/16 13:59 09/26/16 09:24 Phenytoin (Dilantin) 200 mg Q12HR GT 09/22/16 21:00 10/22/16 20:59 09/26/16 09:25 Piperacillin Sod/ Tazobactam Sod/ Sodium Chloride (Zosyn/Sodium Chloride) 110 ml @ 27.5 mls/hr Q8HR IVPB 09/22/16 22:00 09/29/16 21:59 09/26/16 05:30 Polyethylene Glycol (Miralax) 17 gm HSPRN PRN ORAL Constipation 09/22/16 16:00 10/22/16 15:59 Valproate Sodium/ Sodium Chloride (Depacon Inj/ Sodium Chloride) 125 ml @ 58.035 mls/ hr Q12HR IV 09/22/16 21:00 10/22/16 20:59 09/26/16 09:24 Zolpidem Tartrate (Ambien) 5 mg HSPRN PRN ORAL Insomnia 09/22/16 16:00 10/22/16 15:59 ANGELA DAVILA Sep 26, 2016 12:54
[2016-09-26 16:00] VITALS: BP 122/56
--- NOTE | 2016-09-26 19:08 | Cardiology Report ---
APPROVED REPORT EKG Measurement Heart [id number] Normal sinus rhythm Minimal voltage criteria for LVH, may be normal variant Possible Lateral infarct, age undetermined Inferior infarct, age undetermined Prolonged QT Abnormal ECG
--- NOTE | 2016-09-26 19:17 | Cardiology Progress Note ---
Assessment/Plan Assessment/Plan afib chronic resp failure copd hs of breast cnacre seizure do hjypokalemai anemia tele reviwed afib noted a few day ago no recurrence sicne will observer while on tele k is better but still low abn tsh may represent sick euthyroid hgb is stablel cxr noted is on abx Subjective ROS Limited/Unobtainable: Yes Objective Last 24 Hour Vital Signs Date Time Temp Pulse Resp B/P Pulse Ox O2 Delivery O2 Flow Rate FiO2 09/26/16 17:12 79 17 35 09/26/16 16:00 84 09/26/16 16:00 97.3 80 16 122/56 97 Mechanical Ventilator 35 09/26/16 16:00 35 09/26/16 15:00 78 17 35 09/26/16 13:17 83 16 35 09/26/16 12:00 35 09/26/16 12:00 97.9 76 17 128/58 100 Mechanical Ventilator 35 09/26/16 12:00 86 09/26/16 11:24 77 15 35 09/26/16 09:20 80 23 Mechanical Ventilator 35 09/26/16 09:20 80 18 35 09/26/16 08:00 80 09/26/16 08:00 97.9 80 16 125/57 100 Mechanical Ventilator 35 09/26/16 08:00 35 09/26/16 07:23 82 14 35 09/26/16 05:19 86 19 35 09/26/16 04:00 98.1 83 17 122/54 100 Mechanical Ventilator 35 09/26/16 04:00 35 09/26/16 03:58 84 09/26/16 03:07 88 16 35 09/26/16 01:05 87 17 35 09/26/16 00:00 97.9 87 17 117/56 93 Mechanical Ventilator 35 09/26/16 00:00 35 09/25/16 23:59 89 09/25/16 23:28 86 20 35 09/25/16 21:25 79 18 35 09/25/16 20:00 85 09/25/16 20:00 35 09/25/16 20:00 97.7 85 17 101/46 93 Mechanical Ventilator 35 General Appearance: on vent, patient on isolation, isolation precautions Cardiovascular: normal rate, regular rhythm Respiratory/Chest: lungs clear, normal breath sounds Abdomen: normal bowel sounds, non tender, soft Extremities: no swelling Intake and Output 09/25/16 09/26/16 19:00 07:00 Intake Total 1582.500 ml 1637.500 ml Output Total 2970 ml 605 ml Balance -1387.500 ml 1032.500 ml Free Water 240 ml 200 ml IV Total 592.500 ml 687.500 ml Other 750 ml 750 ml Output Urine Total 2970 ml 605 ml # Bowel Movements 2 1 Laboratory Tests Test 09/26/16 05:20 White Blood Count 5.4 K/UL (4.8-10.8) Red Blood Count 2.46 M/UL (4.20-5.40) L Hemoglobin 8.1 G/DL (12.0-16.0) L Hematocrit 25.5 % (37.0-47.0) L Mean Corpuscular Volume 104 FL (80-99) H Mean Corpuscular Hemoglobin 32.7 PG (27.0-31.0) H Mean Corpuscular Hemoglobin Concent 31.5 G/DL (32.0-36.0) L Red Cell Distribution Width 17.0 % (11.6-14.8) H Platelet Count 281 K/UL (150-450) Mean Platelet Volume 7.6 FL (6.5-10.1) Neutrophils (%) (Auto) 66.7 % (45.0-75.0) Lymphocytes (%) (Auto) 15.3 % (20.0-45.0) L Monocytes (%) (Auto) 10.1 % (1.0-10.0) H Eosinophils (%) (Auto) 7.1 % (0.0-3.0) H Basophils (%) (Auto) 0.8 % (0.0-2.0) Sodium Level 142 mEQ/L (135-145) Potassium Level 3.6 mEQ/L (3.4-4.9) Chloride Level 97 mEQ/L (98-107) L Carbon Dioxide Level 33 mEQ/L (20-30) H Anion Gap 12 (5-15) Blood Urea Nitrogen 4 mg/dL (7-23) L Creatinine 0.3 mg/dL (0.5-0.9) L Estimat Glomerular Filtration Rate mL/min (>60) Glucose Level 84 mg/dL (74-106) Calcium Level 9.0 mg/dL (8.6-10.2) Vitamin B12 Level 534 pg/mL (211-946) Microbiology Date/Time Source Procedure Growth Status 09/25/16 04:40 Sputum Gram Stain - Final Resulted 09/25/16 04:40 Sputum Sputum Culture - Preliminary NO GROWTH Resulted MARCELL KING Sep 26, 2016 19:17
[2016-09-26 20:00] VITALS: BP 124/46
[2016-09-26] MEDS ORDERED: Tubing IV Secondary IV ONE (21:09)
[2016-09-26] MEDS ORDERED: NS 275ml ONE (21:09)
[2016-09-28] MEDS ORDERED: ZOSYN 3.373.375 GM/1 IVPB (09:07)
--- NOTE | 2016-09-28 09:14 | Discharge Summary ---
Discharge Summary Hospital Course Date of Admission Sep 21, 2016 at 09:41 Date of Discharge Sep 26, 2016 at 21:10 Admitting Diagnosis recurrant seicures HPI Kate Donovan is a 76 year old female who was admitted on Sep 21, 2016 at 09: 41 for Re-Current Seizures Hospital Course dc summary #[id number] Discharge Medications New Medications: Ybawyvqjokdj-Ottp-Obbuwlls,Iso (Zosyn 3.375 Gm Pre Mix-Bag) 3.375 Gm/50 Ml Froz.piggy 3.375 GM IVPB EVERY 8 HOURS, #3 BAG Continued Medications: Acetaminophen (Acetaminophen) 650 Mg/20.3 Ml Solution 650 MG GT Q6H PRN for Prn Headache/Temp > 101, ML 0 Refills Ferrous Sulfate (Iron) 325 Mg Capsule.er 325 MG GT, CAP Hydrocodone Bit/Acetaminophen 5-325* ([place] 5-325 Tablet*) 1 Each Tablet 1 TAB GT Q4H PRN for For Pain, TAB Ipratropium/Albuterol Sulfate (DuoNeb 0.5-3(2.5)mg/3ml) 3 Ml Ampul.neb 3 ML HHN EVERY 8 HOURS, EA Letrozole (Femara) 2.5 Mg Tablet 2.5 MG ORAL DAILY, #10 TAB 0 Refills Levetiracetam* (Levetiracetam*) 500 Mg Tablet 1500 MG GT TWICE A DAY, #60 TAB 0 Refills Levothyroxine Sodium* (Levothyroxine Sodium*) 25 Mcg Tablet 25 MCG GT DAILY, TAB Take in the morning on an empty stomach, at least 30 minutes before food. Nitroglycerin (Nitrostat) 0.4 Mg Tab.subl 0.4 MG SL, TAB Phenytoin (Dilantin) 50 Mg Tab.chew 150 MG GT BID, #90 TAB 0 Refills Vitamin D (Vitamin D3) 400 Unit Tablet 2000 UNITS GT DAILY, TAB Discharge Condition Upon Discharge: stable Discharge Disposition Patient was discharged to SNF/Subacute Facility(03) Discharge Diagnoses: Dennis (Eli)Libby NP Sep 28, 2016 09:14
--- NOTE | 2016-09-29 02:07 | Discharge Summary 2 SIG ---
DATE OF ADMISSION: 09/21/2016 DATE OF DISCHARGE: 09/26/2016 REASON FOR ADMISSION: 76 years old female, chronically ventilator-dependent with chronic seizure disorder, [facility] with reported seizure activity. The patient was given Ativan at the [facility] facility, which improved her symptoms; however, en route, the patient had another seizure activity. Paramedics were unable to obtain intravenous access during the transfer. The patient was brought with active seizure. The patient was afebrile ,with and ventilator dependent respiratory failure and tracheostomy and unable to provide any information. In the emergency department, the patient started on Keppra drip. Potassium level was low and repleted. CT head done urgently in the emergency room, but did not reveal any acute intracranial pathology. disease. The patient was admitted for further inpatient care. ADMITTING DIAGNOSES: 1. Status epileptic. 2. Chronic respiratory failure. Tracheostomy status 3. Hypokalemia. HOSPITAL STAY: The patient admitted to [facility]. Neurology consult, ID, and Cardiology were requested. As mentioned above, CT of the head was negative. EEG was grossly abnormal, markedly abnormal EEG in the presence of depressed cortical activity with paroxysmal lateralizing or epileptiform discharges emanating from the left hemisphere. Acute abnormality indicated the ongoing epileptiform activity emanating from the left hemisphere. There was a cerebral global dysfunction with significant cortical suppression as well , corresponding to history of anoxic encephalopathy. The patient's anticonvulsant regimen updated by neurologist. No further seizure activity. Initial chest x-ray revealed cardiomegaly and mild congestion. The patient on the next day after admission presented with leukocytosis of 15.4. The patient started on empiric antibiotics for possible aspiration pneumonia. Sputum culture with Pseudomonas and Gram-negative bacilli. Infectious Disease followed. Urine culture revealed E coli. Blood culture, Staph coag-negative 09/07 likely contaminant as per Infectious Disease. The patient status post amikacin, status post vancomycin treatment, one additional day of Zosyn while in the [facility] facility. Infectious Disease closely followed and cleared for discharge. Follow up chest x-ray revealed mild congestive heart failure. Lasix x1 given with improvement in cardiopulmonary status. Ventilator and tracheostomy care provided. ABG was stable on current settings, keep settings as is and titrate as needed. Potassium was replaced and was stable. The patient with episode of atrial fibrillation on telemetry and then spontaneously converted , no further recurrence and no need for antiarrhythmic medication as per Cardiology - since converted to normal sinus rhythm without recumbency. DVT prophylaxis provided. Bowel regimen instituted. Strict aspiration precautions were maintained. The patient was able to tolerate G-tube feeding. The patient noted to be anemic and received one unit of packed red blood cells. Hemoglobin and hematocrit upon discharge stable, at the baseline. Prior to discharge, the patient also noted to have elevated TSH with low free T3. The patient started on low-dose levothyroxine. Recommend to check thyroid panel in one month. The patient was stable for transfer to the [facility] facility. DISCHARGE DIAGNOSES: 1. Status epilepticus. 2. Chronic seizure disorder with exacerbation. 3. Chronic respiratory failure with ventilator-dependent respiratory failure and tracheostomy status. 4. Aspiration pneumonia. 5. Urinary tract infection. 6. Chronic obstructive pulmonary disease. 7. Paroxysmal atrial fibrillation. 8. Hypokalemia. 9. Anemia, status post one unit packed red blood cells. 10. Chronic anoxic encephalopathy. 11. Morbid obesity. 12. Vegetative state. 13. History of breast cancer. 14, Hypothyroidism, newly diagnosed. DISCHARGE MEDICATIONS : see medications reconciliation list DISCHARGE INSTRUCTIONS: The patient was discharged to the [facility] facility with one additional day of IV antibiotics. Closely monitor. Consider comfort care due to the multiple underlying medical issues and persistent vegetative state with chronic anoxic encephalopathy. Savi Rodriguez M.D. Libby FabianBeth David HospitalMaile N.PCarlo DR: [place] JOB#: [id number] CC: ROMINA
--- NOTE | 2016-10-26 14:21 | Diagnostic Imaging Report ---
Indication: Chest Pain Comparison: None A single view chest radiograph was obtained. Findings: Interstitial vascular prominence noted with the cardiomegaly. Bones are osteopenic. Tracheostomy noted. Impression: Congestive heart failure
== END 2016-09-26 21:10 | DRG 100 ==
LOC: EDBD 08:16 → EDBEDREQ 08:41 → EMR 08:59 → EDBEDREQ 09:38 → ICU 09:41 → EDBEDREQ 10:38 → 2W 09-22 14:44
PROC: 02HV33Z Insertion of Infusion Device into Superior Vena Cava, Percutaneous Approach (ICD-10-PCS; principal; 2016-09-21)
PROC: 5A1955Z Respiratory Ventilation, Greater than 96 Consecutive Hours (ICD-10-PCS; principal; 2016-09-21)
PROC: 30233N1 Transfusion of Nonautologous Red Blood Cells into Peripheral Vein, Percutaneous Approach (ICD-10-PCS; 2016-09-22)
DX: G40.901 Epilepsy, unspecified, not intractable, with status epilepticus (principal); J69.0 Pneumonitis due to inhalation of food and vomit; R40.3 Persistent vegetative state; G93.1 Anoxic brain damage, not elsewhere classified; Z99.11 Dependence on respirator [ventilator] status; J44.1 Chronic obstructive pulmonary disease with (acute) exacerbation; J96.10 Chronic respiratory failure, unspecified whether with hypoxia or hypercapnia; Z43.1 Encounter for attention to gastrostomy; N39.0 Urinary tract infection, site not specified; Z68.42 Body mass index [BMI] 45.0-49.9, adult; E87.6 Hypokalemia; D64.9 Anemia, unspecified; E66.01 Morbid (severe) obesity due to excess calories; Z85.3 Personal history of malignant neoplasm of breast; E03.9 Hypothyroidism, unspecified; E83.39 Other disorders of phosphorus metabolism; Z43.4 Encounter for attention to other artificial openings of digestive tract; I48.0 Paroxysmal atrial fibrillation
CPT/HCPCS: 36415; 36569; 36600; 70450; 71010; 76937; 80048; 80053; 80150; 80164; 80185; 80202; 81003; 82550; 82553; 82607; 82803; 83605; 83690; 83735; 83880; 84100; 84439; 84443; 84484; 85007; 85025; 85610; 85730; 86850; 86900; 86901; 86920; 87040; 87070; 87081; 87086; 87181; 87205; 93005; 94002; 94003; 94664; 95819; J2250; J2405

== ENCOUNTER 2016-10-09 15:15 | Inpatient (IN) | payer OTHER ==
[2016-10-09] VITALS (15 sets, daily range): BP systolic 99–127; BP diastolic 44–58
[~2016-10-09] VITALS: Ht 162.6 cm; Wt 117.9 kg
[~2016-10-09 15:15] MED LIST: BISACODYL10 M1 RC; DILANTIN50 MG GT; DUONEB 0.5-3(2.53 ML HHN; FEMARA2.5 MG ORAL; FUROSEMIDE20 M1 GT; IRON325 M2 GT; LEVETIRACETAM500 MG GT; LEVOTHYROXINE25 MCG GT; NITROSTAT0.4 M2 SL; NORCO 5-325 TA1 EAC1 GT; TYLENOL650 MG/20. GT; VANCOMYCIN1 GM/2502 IVPB; VITAMIN D400 INTLU GT; ZOSYN 3.373.375 GM/1 IVPB
[2016-10-09 16:03] LABS: MEAN CORPUSCULAR HEMOGLOBIN 31.1 PG (27.0-31.0); MEAN CORPUSCULAR HGB CONC 31.9 G/DL (32.0-36.0); MEAN CORPUSCULAR VOLUME 97 FL (80-99); PLATELET COUNT 319 K/UL (150-450); RED BLOOD COUNT 3.12 M/UL (4.20-5.40); RED CELL DISTRIBUTION WIDTH 15.8 % (11.6-14.8)
[2016-10-09 16:07] LABS: APPEARANCE,URINE CLOUDY; KETONES,URINE NEGATIVE (NEGATIVE); LEUKOCYTE ESTERASE ,URINE 4+ (NEGATIVE); NITRITE,URINE NEGATIVE (NEGATIVE); PROTEIN,URINE 2+ (NEGATIVE); UROBILINOGEN,URINE NORMAL MG/DL (0.0-1.0)
[2016-10-09 16:11] LABS: BACTERIA,URINE MODERATE /HPF; SQUAMOUS EPITHELIAL CELL,UR MANY /LPF (NONE/OCC); WBC,URINE TNTC /HPF (0 - 2)
[2016-10-09 16:12] LABS: ABG PCO2 38.9 mmHg (35.0-45.0)
[2016-10-09 16:13] LABS: ABG ALLEN TEST POSITIVE; ABG BASE EXCESS 6.4
[2016-10-09 16:24] LABS: TROPONIN I < 0.30 ng/mL (<=0.30)
[2016-10-09 16:30] LABS: ALANINE AMINOTRANSFERASE 52 U/L (3-33); ALBUMIN/GLOBULIN RATIO 0.7 (1.0-2.7); ANION GAP 14 (5-15); ASPARTATE AMINO TRANSFERASE 82 U/L (5-40); CALCIUM 9.4 mg/dL (8.6-10.2); CARBON DIOXIDE 31 mEQ/L (20-30); CHLORIDE 88 mEQ/L (98-107); CREATININE 0.4 mg/dL (0.5-0.9); HEMOLYSIS 0; POTASSIUM 3.3 mEQ/L (3.4-4.9); SODIUM 133 mEQ/L (135-145); TOTAL PROTEIN 6.9 g/dL (6.6-8.7)
[2016-10-09] MEDS ORDERED: Ampicillin/Sulbactam Sod 3 GM in NS 110 ML IVPB SCH (16:30)
--- NOTE | 2016-10-09 16:38 | Emergency Room Report ---
History of Present Illness General Chief Complaint: General Complaint Source: Patient, Medical Record, EMS Present Illness HPI The patient is a 76-year-old female sent in by ambulance after increased have tachycardia from her snf. Patient is a ventilator dependent. The patient had prior history of CVA and had been noticed to be increasing tachycardic by nursing staff. Patient had recently been on IV antibiotics. Patient was noted to have a G-tube dependence as well as tracheostomy. She was noted to have a left PICC line Allergies: Coded Allergies: PEANUT (Verified Allergy, Unknown, 09/22/16) Patient History Past Medical History: see triage record Now: No Reviewed Nursing Documentation: PMH: Agreed, PSxH: Agreed Nursing Documentation-PMH Past Medical History: No History, Except For Hx Cardiac Problems: Yes - Chronic resp. failure, Vent dependant, hypothyroidism Hx COPD: Yes Hx Cancer: Yes - breast cancer Hx Gastrointestinal Problems: Yes - G tube Hx Neurological Problems: Yes Hx Cerebrovascular Accident: Yes Hx Seizures: Yes Hx Peripheral Neuropathy: Yes Hx Concentration Difficulty: Yes Hx Speech Problem: Yes Hx Dysphasia: Yes Review of Systems All Other Systems: negative except mentioned in HPI Physical Exam Vital Signs Date Time Temp Pulse Resp B/P Pulse Ox O2 Delivery O2 Flow Rate FiO2 10/09/16 15:11 100.0 140 16 170/100 100 Mechanical Ventilator 10/09/16 15:36 100 Sp02 EP Interpretation: reviewed, normal General Appearance: severe distress, obese, Chronically Ill Head: atraumatic Neck: normal inspection, supple, no bony tend, tracheotomy Respiratory: normal inspection, no retraction, no wheezing Cardiovascular #1: tachycardia, edema Gastrointestinal: normal inspection, normal bowel sounds, soft, no guarding, no hernia, other - gtube Genitourinary: normal inspection Musculoskeletal: normal inspection, back normal, normal range of motion Neurologic: motor weakness, other - poor alertness, Psychiatric: normal inspection, judgement/insight normal, mood/affect normal Skin: other - rash to lower abdomen under pannus Procedures Critical Care Time Critical Care Time Patient had a critical medical condition which untreated could potentially result in life or limb threatening injury. Total critical care time excluding procedures approximately 45 minutes. Medical Decision Making Diagnostic Impression: Primary Impression: Chronic respiratory failure Additional Impressions: Urinary tract infection Severe sepsis Seizure disorder Decubitus skin ulcer QT prolongation ER Course Patient presented for tachycardia. The differential diagnosis included was not limited to arrhythmia, thyroid storm, sepsis, anemia, myocardial infarction, alcohol withdrawal, stimulant abuse, caffeine overdose among others. Because of complexity of patient's case laboratory testing and imaging studies were ordered. The patient noted have the history consistent with possible sepsis. Patient was given IV fluids as well as IV antibiotics. Patient was noted to have elevated white blood count. The patient was empirically started on antibiotics. Urinalysis showed evidence of urinary infection.Patient was noted to have increased lactic acid level. The consistent with severe sepsis.Patient was started on mechanical ventilation. Arterial blood gas showed adequate CO2 and oxygenation. Dr. Rodriguez was contacted for inpatient management due to complexity of medical condition. Labs Test 10/09/16 15:40 10/09/16 16:09 White Blood Count 16.0 K/UL (4.8-10.8) Red Blood Count 3.12 M/UL (4.20-5.40) Hemoglobin 9.7 G/DL (12.0-16.0) Hematocrit 30.4 % (37.0-47.0) Mean Corpuscular Volume 97 FL (80-99) Mean Corpuscular Hemoglobin 31.1 PG (27.0-31.0) Mean Corpuscular Hemoglobin Concent 31.9 G/DL (32.0-36.0) Red Cell Distribution Width 15.8 % (11.6-14.8) Platelet Count 319 K/UL (150-450) Mean Platelet Volume 8.0 FL (6.5-10.1) Neutrophils (%) (Auto) % (45.0-75.0) Lymphocytes (%) (Auto) % (20.0-45.0) Monocytes (%) (Auto) % (1.0-10.0) Eosinophils (%) (Auto) % (0.0-3.0) Basophils (%) (Auto) % (0.0-2.0) Urine Color Yellow Urine Appearance Cloudy Urine pH 7.0 (4.5-8.0) Urine Specific [place] 1.010 (1.005-1.035) Urine Protein 2+ (NEGATIVE) Urine Glucose (UA) Negative (NEGATIVE) Urine Ketones Negative (NEGATIVE) Urine Occult Blood 3+ (NEGATIVE) Urine Nitrite Negative (NEGATIVE) Urine Bilirubin Negative (NEGATIVE) Urine Urobilinogen Normal MG/DL (0.0-1.0) Urine Leukocyte Esterase 4+ (NEGATIVE) Urine RBC 10-15 /HPF (0 - 2) Urine WBC Tntc /HPF (0 - 2) Urine Squamous Epithelial Cells Many /LPF (NONE/OCC) Urine Bacteria Moderate /HPF (NONE) Arterial Blood pH 7.500 (7.350-7.450) Arterial Blood Partial Pressure CO2 38.9 mmHg (35.0-45.0) Arterial Blood Partial Pressure O2 174.3 mmHg (75.0-100.0) Arterial Blood HCO3 29.9 mmol/L (22.0-26.0) Arterial Blood Oxygen Saturation 99.2 % (92.0-98.0) Arterial Blood Base Excess 6.4 Best Test Positive EKG Diagnostic Results Rate: tachycardiac - 132 Rhythm: NSR ST Segments: no acute changes Chest X-Ray Diagnostic Results EP Interpretation: Yes Findings: no consolidation, no effusion, no pneumothorax, no acute cardiopulmonary disease Number of Views: 1 Last Vital Signs Date Time Temp Pulse Resp B/P Pulse Ox O2 Delivery O2 Flow Rate FiO2 10/09/16 16:04 99.9 126 35 106/58 97 Mechanical Ventilator 100 Status: unchanged Disposition: ADMITTED INPATIENT Condition: Critical Kenton Toribio Oct 09, 2016 16:38
[2016-10-09 16:41] LABS: CKMB < 1.5 ng/mL (< 3.8); REFLEX LACTIC ACID YES OR NO YES
[2016-10-09] MEDS ORDERED: Unasyn 3gm Inj ONE (16:58)
[2016-10-09 17:19] LABS: LYMPHOCYTES % (MANUAL) 2 % (20-45); NEUTROPHILS % (MANUAL) 98 % (45-75); TOTAL CELLS COUNTED 100
[2016-10-09 17:20] LABS: BAND NEUTROPHILS % (MANUAL) 0 % (0-8); BASOPHILS % (MANUAL) 0 % (0-2); EOSINOPHILS % (MANUAL) 0 % (0-3); PLATELET MORPHOLOGY NORMAL
[2016-10-09 17:21] LABS: ANISOCYTOSIS 1+; MICROCYTES 1+; PLATELET ESTIMATE ADEQUATE
[2016-10-09] MEDS ORDERED: COLACE100 MG GT (17:49)
[2016-10-09] MEDS ORDERED: metroNIDAZOLE 500mg 100 ML IVPB ONE (18:15)
[2016-10-09] MEDS ORDERED: Levophed 4mg/4mL Inj IV ONE (18:17)
[2016-10-09] MEDS ORDERED: Morphine Sulfate 4mg/ml Inj IVP PRN (19:00)
[2016-10-09] MEDS ORDERED: DuoNeb 0.5-3(2.5)mg/3ml neb HHN PRN (19:00)
[2016-10-09] MEDS ORDERED: Miralax 17gm pkt ORAL PRN (19:00)
[2016-10-09] MEDS ORDERED: LORazepam Inj 2mg/ml 1ml IV PRN (19:00)
[2016-10-09] MEDS ORDERED: [UNRECOGNIZED DRUG - OTHER] IVPB ONE (19:30)
[2016-10-09] MEDS ORDERED: VANCOMYCIN 1500 MG IVPB ONE (19:30)
[2016-10-09] MEDS: Norepinephrine 4mg in D5W 250ml IV SCH (21:44)
[2016-10-09] MEDS: Heparin 5000 units/ml inj SUBQ SCH (21:54)
[2016-10-09] MEDS: Vancomycin 1250mg/D5W 275ml IVPB SCH ×2 (21:55)
[2016-10-09] MEDS: Piperacillin/Tazobactam 3.375 GM in NS 110 ML IVPB SCH (21:55)
[2016-10-09] MEDS ORDERED: KCl 10% 40mEq/30ml liquid GT ONE (23:30)
[2016-10-10] VITALS (22 sets, daily range): BP systolic 88–140; BP diastolic 43–70
[2016-10-10] MEDS: Piperacillin/Tazobactam 3.375 GM in NS 110 ML IVPB SCH ×3 (06:19→21:06)
[2016-10-10 06:58] LABS: ANION GAP 12 (5-15); CARBON DIOXIDE 31 mEQ/L (20-30); CHLORIDE 94 mEQ/L (98-107); CREATININE 0.3 mg/dL (0.5-0.9); HEMOLYSIS 10; PHOSPHORUS 3.2 mg/dL (2.5-4.8); POTASSIUM 3.6 mEQ/L (3.4-4.9); SODIUM 137 mEQ/L (135-145)
[2016-10-10 07:05] LABS: MEAN CORPUSCULAR HEMOGLOBIN 31.8 PG (27.0-31.0); MEAN CORPUSCULAR HGB CONC 32.7 G/DL (32.0-36.0); MEAN CORPUSCULAR VOLUME 97 FL (80-99); MEAN PLATELET VOLUME 8.4 FL (6.5-10.1); PLATELET COUNT 250 K/UL (150-450); RED BLOOD COUNT 2.67 M/UL (4.20-5.40); RED CELL DISTRIBUTION WIDTH 16.1 % (11.6-14.8); WHITE BLOOD COUNT 12.4 K/UL (4.8-10.8)
[2016-10-10 08:25] LABS: BAND NEUTROPHILS % (MANUAL) 2 % (0-8); BASOPHILS % (MANUAL) 0 % (0-2); EOSINOPHILS % (MANUAL) 1 % (0-3); LYMPHOCYTES % (MANUAL) 5 % (20-45); NEUTROPHILS % (MANUAL) 87 % (45-75); PLATELET ESTIMATE ADEQUATE; PLATELET MORPHOLOGY NORMAL; TOTAL CELLS COUNTED 100
[2016-10-10 08:26] LABS: ANISOCYTOSIS 1+; MACROCYTES 1+
[2016-10-10] MEDS: Levothyroxine 25mcg tab GT SCH (08:59)
[2016-10-10] MEDS: Phenytoin Susp 100mg/4ml GT SCH ×2 (08:59→17:58)
[2016-10-10] MEDS: Vancomycin 1250mg/D5W 275ml IVPB SCH ×4 (08:59→21:04)
[2016-10-10] MEDS: levETIRAcetam 500mg/5ml Liquid GT SCH ×2 (09:00→21:04)
[2016-10-10] MEDS ORDERED: Acetaminophen 650mg/20.3ml GT PRN (09:00)
[2016-10-10] MEDS: Heparin 5000 units/ml inj SUBQ SCH ×2 (09:11→21:05)
--- NOTE | 2016-10-10 10:31 | History and Physical ---
History of Present Illness General Date patient seen: Oct 10, 2016 Reason for Hospitalization: General Complaint Present Illness HPI 76-year-old female with hx of Chronic Vent/trach/Peg fdc resident sent in by ambulance with CC of tachycardia from her fdc. She was tachycardic and borderline hypotensive in ER and admitte to ICU for furhter care.She can't give any history and all information is obtained from the patients chart. Allergies: Coded Allergies: PEANUT (Verified Allergy, Unknown, 09/22/16) Medication History Scheduled Docusate Sodium* (Colace*), 100 MG GT TWICE A DAY, (Reported) Furosemide* (Lasix*), 20 MG GT DAILY, (Reported) Ipratropium/Albuterol Sulfate (DuoNeb 0.5-3(2.5)mg/3ml), 3 ML HHN EVERY 8 HOURS, (Reported) Letrozole (Femara), 2.5 MG ORAL DAILY, (Reported) Levetiracetam* (Levetiracetam*), 1,500 MG GT TWICE A DAY, (Reported) Levothyroxine Sodium* (Levothyroxine Sodium*), 25 MCG GT DAILY, (Reported) Phenytoin (Dilantin), 150 MG GT BID, (Reported) Dkamsoopuhhc-Bjcr-Qpjptxzh,Iso (Zosyn 3.375 Gm Pre Mix-Bag), 3.375 GM IVPB EVERY 8 HOURS Vitamin D (Vitamin D3), 2,000 UNITS GT DAILY, (Reported) Scheduled PRN Acetaminophen (Acetaminophen), 650 MG GT Q6H PRN for Prn Headache/Temp > 101, ( Reported) Hydrocodone Bit/Acetaminophen 5-325* ([place] 5-325 Tablet*), 1 TAB GT Q4H PRN for For Pain, (Reported) Miscellaneous Medications Bisacodyl (Bisacodyl), 10 MG RC, (Reported) Ferrous Sulfate (Iron), 325 MG GT, (Reported) Nitroglycerin (Nitrostat), 0.4 MG SL, (Reported) Patient History Healthcare decision maker N Resuscitation status Advanced Directive on File Past Medical/Surgical History Past Medical/Surgical History: (1) Vegetative state (2) Feeding by G-tube (3) Seizure (4) anoxic Review of Systems All Other Systems: negative except mentioned in HPI Physical Exam General Appearance: WD/WN Lines, tubes and drains: peripheral HEENT: normocephalic, atraumatic Respiratory/Chest: chest wall non-tender, lungs clear Cardiovascular/Chest: normal peripheral pulses, normal rate Abdomen: normal bowel sounds, non tender Genitourinary/Rectal: normal genital exam, normal rectal exam Extremities: normal range of motion 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 grossly normal, no motor/sensory deficits Last 24 Hour Vital Signs Date Time Temp Pulse Resp B/P Pulse Ox O2 Delivery O2 Flow Rate FiO2 10/10/16 09:29 94 14 40 10/10/16 09:23 40 10/10/16 08:00 97 10/10/16 07:26 99 22 40 10/10/16 07:00 95 21 97/49 100 Mechanical Ventilator 30 99 10/10/16 06:00 96 21 88/45 100 Mechanical Ventilator 30 99 10/10/16 05:18 97 18 50 10/10/16 05:00 98 21 102/47 100 Mechanical Ventilator 30 99 10/10/16 04:00 99 10/10/16 04:00 40 10/10/16 04:00 98.0 99 21 109/45 100 Mechanical Ventilator 30 99 10/10/16 03:18 99 26 50 10/10/16 03:00 101 21 109/45 100 Mechanical Ventilator 30 99 10/10/16 02:00 100 21 109/52 100 Mechanical Ventilator 30 99 10/10/16 01:26 102 25 50 10/10/16 01:00 99 21 109/52 100 Mechanical Ventilator 50 99 10/10/16 00:00 40 10/10/16 00:00 99 10/10/16 00:00 98.6 99 21 107/61 100 Mechanical Ventilator 50 99 10/09/16 23:23 98 27 50 10/09/16 23:00 121/55 10/09/16 23:00 98 24 121/55 100 Mechanical Ventilator 50 99 10/09/16 22:45 99 25 111/49 100 Mechanical Ventilator 50 99 10/09/16 22:30 102 24 105/50 100 Mechanical Ventilator 50 99 10/09/16 22:15 102 23 106/53 98 Mechanical Ventilator 50 10/09/16 22:00 102 25 99/44 98 Mechanical Ventilator 50 10/09/16 21:55 110/48 10/09/16 21:45 103 25 110/48 98 Mechanical Ventilator 50 10/09/16 21:44 125/57 10/09/16 21:30 98 23 104/50 98 Mechanical Ventilator 50 99 10/09/16 21:15 99 24 125/57 100 Mechanical Ventilator 50 99 10/09/16 21:00 101 25 115/54 98 Mechanical Ventilator 50 102 10/09/16 20:45 98 25 127/56 98 Mechanical Ventilator 50 98 10/09/16 20:33 97 27 50 10/09/16 20:30 98 25 122/56 98 Mechanical Ventilator 50 102 10/09/16 20:15 101 30 119/53 98 Mechanical Ventilator 50 102 10/09/16 20:02 99.8 102 28 108/49 97 Mechanical Ventilator 50 10/09/16 20:00 98.6 102 29 119/53 98 Mechanical Ventilator 50 102 10/09/16 20:00 50 10/09/16 20:00 98.4 10/09/16 20:00 100 10/09/16 19:36 93 28 50 10/09/16 19:33 152/45 10/09/16 19:02 99.8 102 30 108/49 97 Mechanical Ventilator 50 10/09/16 18:32 106/35 10/09/16 17:34 110 29 50 10/09/16 16:04 99.9 126 35 106/58 97 Mechanical Ventilator 100 10/09/16 15:36 138 38 100 10/09/16 15:36 138 38 Mechanical Ventilator 100 10/09/16 15:35 100 10/09/16 15:11 100.0 140 16 170/100 100 Mechanical Ventilator Intake and Output 10/09/16 10/10/16 19:00 07:00 Intake Total 1210 ml 485.833 ml Output Total 60 ml 1226 ml Balance 1150 ml -740.167 ml Intake Free Water 50 ml IV Total 1210 ml 225.833 ml Tube Feeding 210 ml Output Urine Total 60 ml 1205 ml Stool Total 1 ml Other 20 ml # Voids 1 # Bowel Movements 7 Laboratory Tests Test 10/09/16 15:40 10/09/16 16:09 10/09/16 17:30 10/09/16 17:40 White Blood Count 16.0 K/UL (4.8-10.8) H Red Blood Count 3.12 M/UL (4.20-5.40) L Hemoglobin 9.7 G/DL (12.0-16.0) L Hematocrit 30.4 % (37.0-47.0) L Mean Corpuscular Volume 97 FL (80-99) Mean Corpuscular Hemoglobin 31.1 PG (27.0-31.0) H Mean Corpuscular Hemoglobin Concent 31.9 G/DL (32.0-36.0) L Red Cell Distribution Width 15.8 % (11.6-14.8) H Platelet Count 319 K/UL (150-450) Mean Platelet Volume 8.0 FL (6.5-10.1) Neutrophils (%) (Auto) % (45.0-75.0) Lymphocytes (%) (Auto) % (20.0-45.0) Monocytes (%) (Auto) % (1.0-10.0) Eosinophils (%) (Auto) % (0.0-3.0) Basophils (%) (Auto) % (0.0-2.0) Differential Total Cells Counted 100 Neutrophils % (Manual) 98 % (45-75) H Lymphocytes % (Manual) 2 % (20-45) L Monocytes % (Manual) 0 % (1-10) L Eosinophils % (Manual) 0 % (0-3) Basophils % (Manual) 0 % (0-2) Band Neutrophils 0 % (0-8) Platelet Estimate Adequate Platelet Morphology Normal Anisocytosis 1+ Microcytosis 1+ Urine Color Yellow Urine Appearance Cloudy Urine pH 7.0 (4.5-8.0) Urine Specific [place] 1.010 (1.005-1.035) Urine Protein 2+ (NEGATIVE) H Urine Glucose (UA) Negative (NEGATIVE) Urine Ketones Negative (NEGATIVE) Urine Occult Blood 3+ (NEGATIVE) H Urine Nitrite Negative (NEGATIVE) Urine Bilirubin Negative (NEGATIVE) Urine Urobilinogen Normal MG/DL (0.0-1.0) Urine Leukocyte Esterase 4+ (NEGATIVE) H Urine RBC 10-15 /HPF (0 - 2) H Urine WBC Tntc /HPF (0 - 2) H Urine Squamous Epithelial Cells Many /LPF (NONE/OCC) H Urine Bacteria Moderate /HPF (NONE) H Sodium Level 133 mEQ/L (135-145) L Potassium Level 3.3 mEQ/L (3.4-4.9) L Chloride Level 88 mEQ/L (98-107) L Carbon Dioxide Level 31 mEQ/L (20-30) H Anion Gap 14 (5-15) Blood Urea Nitrogen 9 mg/dL (7-23) Creatinine 0.4 mg/dL (0.5-0.9) L Estimat Glomerular Filtration Rate mL/min (>60) Glucose Level 120 mg/dL (74-106) H Lactic Acid Level 2.40 mmol/L (0.66-2.22) H 2.30 mmol/L (0.66-2.22) H Calcium Level 9.4 mg/dL (8.6-10.2) Total Bilirubin 0.5 mg/dL (0.0-1.2) Aspartate Amino Transf (AST/SGOT) 82 U/L (5-40) H Alanine Aminotransferase (ALT/SGPT) 52 U/L (3-33) H Alkaline Phosphatase 405 U/L (35-104) H Total Creatine Kinase 13 U/L (26-140) L Creatine Kinase MB < 1.5 ng/mL (< 3.8) Creatine Kinase MB Relative Index Troponin I < 0.30 ng/mL (<=0.30) Pro-B-Type Natriuretic Peptide 472 pg/mL (0-450) H Total Protein 6.9 g/dL (6.6-8.7) Albumin 3.0 g/dL (3.5-5.2) L Globulin 3.9 g/dL Albumin/Globulin Ratio 0.7 (1.0-2.7) L Arterial Blood pH 7.500 (7.350-7.450) Arterial Blood Partial Pressure CO2 38.9 mmHg (35.0-45.0) Arterial Blood Partial Pressure O2 174.3 mmHg (75.0-100.0) H Arterial Blood HCO3 29.9 mmol/L (22.0-26.0) H Arterial Blood Oxygen Saturation 99.2 % (92.0-98.0) H Arterial Blood Base Excess 6.4 Best Test Positive Phenytoin (Dilantin) Level 3.9 ug/mL (10-20) L Test 10/09/16 22:30 10/10/16 05:20 Lactic Acid Level 1.10 mmol/L (0.66-2.22) White Blood Count 12.4 K/UL (4.8-10.8) H Red Blood Count 2.67 M/UL (4.20-5.40) L Hemoglobin 8.5 G/DL (12.0-16.0) L Hematocrit 26.0 % (37.0-47.0) L Mean Corpuscular Volume 97 FL (80-99) Mean Corpuscular Hemoglobin 31.8 PG (27.0-31.0) H Mean Corpuscular Hemoglobin Concent 32.7 G/DL (32.0-36.0) Red Cell Distribution Width 16.1 % (11.6-14.8) H Platelet Count 250 K/UL (150-450) Mean Platelet Volume 8.4 FL (6.5-10.1) Neutrophils (%) (Auto) % (45.0-75.0) Lymphocytes (%) (Auto) % (20.0-45.0) Monocytes (%) (Auto) % (1.0-10.0) Eosinophils (%) (Auto) % (0.0-3.0) Basophils (%) (Auto) % (0.0-2.0) Differential Total Cells Counted 100 Neutrophils % (Manual) 87 % (45-75) H Lymphocytes % (Manual) 5 % (20-45) L Monocytes % (Manual) 5 % (1-10) Eosinophils % (Manual) 1 % (0-3) Basophils % (Manual) 0 % (0-2) Band Neutrophils 2 % (0-8) Platelet Estimate Adequate Platelet Morphology Normal Anisocytosis 1+ Macrocytosis 1+ Sodium Level 137 mEQ/L (135-145) Potassium Level 3.6 mEQ/L (3.4-4.9) Chloride Level 94 mEQ/L (98-107) L Carbon Dioxide Level 31 mEQ/L (20-30) H Anion Gap 12 (5-15) Blood Urea Nitrogen 6 mg/dL (7-23) L Creatinine 0.3 mg/dL (0.5-0.9) L Estimat Glomerular Filtration Rate mL/min (>60) Glucose Level 105 mg/dL (74-106) Calcium Level 9.0 mg/dL (8.6-10.2) Phosphorus Level 3.2 mg/dL (2.5-4.8) Albumin 2.6 g/dL (3.5-5.2) L Microbiology Date/Time Source Procedure Growth Status 10/09/16 15:40 Blood Blood Culture - Preliminary Resulted 10/09/16 15:25 Blood Blood Culture - Preliminary Resulted 10/10/16 00:40 Sputum Gram Stain - Final Resulted 10/10/16 00:40 Sputum Sputum Culture Pending Resulted 10/10/16 00:00 Stool Clostridium difficile Toxin Assay - Final Complete 10/09/16 15:40 Urine,Clean Catch Urine Culture - Preliminary Resulted Height (Feet): 5 Height (Inches): 4.00 Weight (Pounds): 260 Medications Current Medications Medications (Trade) Dose Ordered Sig/Boubacar Route PRN Reason Start Time Stop Time Status Last Admin Dose Admin Acetaminophen (Tylenol) 650 mg Q4H PRN GT T>100.5 10/10/16 09:00 11/09/16 08:59 Albuterol/ Ipratropium (DuoNeb 0.5-3(2.5)mg/3ml) 3 ml Q4H PRN HHN Shortness of Breath 10/09/16 19:00 10/14/16 18:59 Dextrose STAT PRN IV Hypoglycemia 10/09/16 19:00 11/08/16 18:59 Heparin Sodium (Porcine) (Heparin 5000 units/ml) 5,000 units EVERY 12 HOURS SUBQ 10/09/16 21:00 11/08/16 20:59 10/10/16 09:11 Levetiracetam (Keppra) 1,500 mg Q12HR GT 10/10/16 09:00 11/09/16 08:59 10/10/16 09:00 Levothyroxine Sodium (Synthroid) 25 mcg DAILY GT 10/10/16 09:00 11/09/16 08:59 10/10/16 08:59 Lorazepam (Ativan 2mg/ml 1ml) 2 mg Q2H PRN IV For Anxiety 10/09/16 19:00 10/16/16 18:59 Morphine Sulfate (Morphine Sulfate) 4 mg Q4H PRN IVP Severe Pain (Pain Scale 7-10) 10/09/16 19:00 10/16/16 18:59 Norepinephrine Bitartrate/ Dextrose (Levophed/D5W) 250 ml @ 0 mls/hr Q24H IV 10/09/16 21:00 11/08/16 20:59 10/09/16 21:44 Ondansetron HCl (Zofran) 4 mg Q6H PRN IVP Nausea & Vomiting 10/09/16 19:00 11/08/16 18:59 Phenytoin (Dilantin) 150 mg BID GT 10/10/16 09:00 11/09/16 08:59 10/10/16 08:59 Piperacillin Sod/ Tazobactam Sod/ Sodium Chloride (Zosyn/Sodium Chloride) 110 ml @ 27.5 mls/hr Q8HR IVPB 10/09/16 22:00 10/16/16 21:59 10/10/16 06:19 Polyethylene Glycol (Miralax) 17 gm DAILYPRN PRN ORAL Constipation 10/09/16 19:00 11/08/16 18:59 Vancomycin HCl 1.25 gm/Dextrose 275 ml @ 183.333 mls/hr Q12HR IVPB 10/09/16 21:00 10/14/16 20:59 10/10/16 08:59 Vancomycin HCl 1 ea 1 ea DAILY PRN MISC . 10/09/16 19:15 11/08/16 19:14 Assessment/Plan Problem List: (1) Septic shock ICD Codes: A41.9 - Sepsis, unspecified organism; R65.21 - Severe sepsis with septic shock SNOMED: 24742679 (2) Bacteremia ICD Codes: R78.81 - Bacteremia SNOMED: 4450069 (3) Aspiration pneumonia ICD Codes: J69.0 - Pneumonitis due to inhalation of food and vomit SNOMED: 792880777 (4) Chronic respiratory failure ICD Codes: J96.10 - Chronic respiratory failure, unspecified whether with hypoxia or hypercapnia SNOMED: 07799805 (5) Feeding by G-tube ICD Codes: Z93.1 - Gastrostomy status SNOMED: 187073467, 444679441 (6) Vegetative state ICD Codes: R40.3 - Persistent vegetative state SNOMED: 51624129, 528971693 Respiratory: monitor respiratory rate, adjust FIO2, CXR Cardiac: continue to monitor HR/BP, stress echo Renal: F/U I&O, keep IV fluid Infectious Disease: check cultures, continue antibiotics Gastrointestinal: continue feedings/current rate Endocrine: monitor blood sugar, continue sliding scale insulin Hematologic: monitor H/H, transfuse if hgb<8.5 Neurologic: PRN Ativan, PRN Morphine, keep patient comfortable Affect: PRN ativan 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: cardio Discussed with: nurses, porter sample case ANGELA DAVILA Oct 10, 2016 10:31
[2016-10-10] MEDS: Pantoprazole Inj IVP SCH (12:16)
[2016-10-10] MEDS ORDERED: Heparin 2000 units/Ns 1000ml INJ ONE (13:30)
[2016-10-10] MEDS ORDERED: Sodium Bicarbonate 8.4% 50ml Inj IV ONE (13:30)
[2016-10-10] MEDS ORDERED: Lidocaine 1% Plain 30 ml INJ ONE (13:30)
--- NOTE | 2016-10-10 14:34 | Consultation ---
Consult Note Consult Note ID CONSULT: Milton# [id number] Assessment/Plan ASSESSMENT: 76 y/o female with: // GNR bacteremia 12/06 ?urinary vs biliary source - C&S pending // Probable UTI - UCx pending, recent qR-E.coli // Elevated LFTs r/o hepatobiliary disease // Recent possible aspiration PNA / pneumonitis - SCx A.lwoffi, PSA SP Rx r/o recurrence/persistence - CXR 10/09: pending // Negative C.difficile // Sepsis // Leukocytosis - improved // Fever - improved // SP PICC 10/10 ( placed while bacteremic ) // Chronic anoxic encephalopathy // Chronic VDRF SP trach, PEG // Seizure disorder // h/o breast CA // Morbid obesity // MRSA, VRE colonized // No ABX allergies // Full Code PLAN: - continue empiric IV vancomycin, zosyn d# ( 09/27 SP IV zosyn d# 6 / 7 ) ( 09/26 SP IV Vanco d # 6 ) ( 09/23 SP amikacin d# 3 ) - check abdo US, hepatitis panel - repeat BCx in AM to document clearance - f/u cultures, adjust ABX accordingly - monitor CBC, temperatures - monitor BMP - monitor CXR - vent support, trach care, aspiration precautions - seizure precautions Thanks! Will follow TREE BARRIENTOS Oct 10, 2016 14:34
--- NOTE | 2016-10-10 17:16 | Diagnostic Imaging Report ---
Indications: Needs long-term IV access Technique: Procedure performed at bedside. Ultrasound confirms patent compressible right cephalic vein. Total sterile technique, including sterile probe cover and sterile gel, sterile gloves, hand hygiene, hat, mask,, sterile gown, large sterile drape, and preparation with 2% chlorhexidine utilized. Local anesthesia with 1% lidocaine. Under real-time ultrasound guidance, puncture cephalic vein using 21-gauge needle, passage 0.018 guidewire, exchange for 5 Serbian peel-away sheath. 5 Serbian Bard dual-lumen power PICC cut to 40 cm. It was inserted through the peel-away sheath. Peel-away sheath and guidewire removed. Inspection of the right internal jugular vein on sonography indicated that the catheter had probably into the internal jugular vein. Multiple attempts were made at manipulating guidewire and catheter in the of sending it down the superior vena cava. However, these were unsuccessful, so the catheter was cut short, 25 cm, reinserted through the peel-away sheath. Catheter fixed to the skin. Both catheter ports aspirated and flushed. Patient tolerated procedure well, without immediate complication. Followup chest x-ray obtained, documents catheter tip position at the level of the subclavian axillary vein junction Also noted on the post procedure chest radiographs are surgical clips in the right axilla, indicating prior right axillary node dissection, history of which was apparently not the available prior to PICC placement. Contraindication to PICC placement on this side of the node dissection was discussed with Dr. Rodriguez, and it was decided that the line placement is significantly urgent that it should remain in place.. Impression: Bedside placement of right PICC under sonographic guidance, as described above. Due to short length, suitable only for use as a midline
--- NOTE | 2016-10-10 17:48 | Consultation ---
DATE OF CONSULTATION: 10/10/2016 INFECTIOUS DISEASES CONSULTATION REQUESTING PHYSICIAN: Savi Rodriguez M.D. REASON FOR CONSULTATION: Sepsis. HISTORY OF PRESENT ILLNESS: This is a 76-year-old female, detention resident with chronic encephalopathy and chronic ventilator-dependent respiratory failure admitted on 10/09/2016 with tachycardia. She met sepsis criteria. Blood cultures are growing gram-negative rods. Urinalysis suggests probable urinary tract infection, also evidence of elevated liver function tests. C. difficile toxin is negative. Imaging studies are pending. She has been started on empiric vancomycin and Zosyn. An ID now consulted to assist in management. PAST MEDICAL HISTORY: 1. Seizure disorder. 2. Hypothyroidism. 3. History of recurrent UTIs. 4. Chronic anoxic encephalopathy. 5. Chronic ventilator-dependent respiratory failure. 6. History of breast cancer. 7. Morbid obesity. PAST SURGICAL HISTORY: 1. Tracheostomy. 2. PEG tube placement. MEDICATIONS: 1. Vancomycin day #1. 2. Zosyn day #1. 3. Subcutaneous heparin. 4. Dilantin. 5. Keppra. 6. Synthroid. 7. Protonix. ALLERGIES: Peanuts. FAMILY HISTORY: Unknown. SOCIAL HISTORY: The patient is a resident of detention. No active tobacco, alcohol, or illicit drug abuse. REVIEW OF SYSTEMS: Unable to obtain. PHYSICAL EXAMINATION: VITAL SIGNS: Maximum temperature of 100 degrees, blood pressure 110/49, heart rate 90s, respiratory rate 20, saturating 100% on 40% FiO2. GENERAL: The patient is nonverbal on the ventilator. HEENT: Tracheostomy tube in place. CARDIOVASCULAR: Regular rate and rhythm. No murmurs. PULMONARY: Coarse breath sounds bilaterally. ABDOMEN: Bowel sounds present. Soft, nondistended, nontender. PEG tube in place. EXTREMITIES: Edema. LABORATORY DATA: White blood cell count 12.4 decreased from 16 with left shift, hemoglobin 8.5, platelets 250,000. Sodium 137, potassium 3.6, chloride 94, bicarbonate 31, BUN 6, creatinine 0.3. Troponin negative x1. AST 82, ALT 52, alkaline phosphatase 405. Total bilirubin 0.5. Albumin 3. MICROBIOLOGY: 1. 10/10/2016, C. difficile toxin negative. 2. 10/09/2016, urine culture pending. 3. 10/09/2016, blood culture gram-negative rods in 4/4 sets. IMAGIN. 10/09/2016, chest x-ray pending. 2. 10/09/2016, Doppler ultrasound pending. ASSESSMENT: 1. Gram-negative marla bacteremia in of 4/4 sets, question urinary versus biliary source. Culture and sensitivity is pending. 2. Probable urinary tract infection. Urine culture is pending. Recent history of growth of quinolone resistant E. coli. 3. Elevated liver function tests, rule out hepatobiliary disease. 4. Recent possible aspiration pneumonia and pneumonitis with sputum culture growing Acinetobacter lwoffii and Pseudomonas aeruginosa status post treatment, rule out recurrence. Chest x-ray is pending. 5. Sepsis. 6. Leukocytosis, improved. 7. Fever, improved. 8. Chronic anoxic encephalopathy. 9. Chronic ventilator-dependent respiratory failure, status post tracheostomy and percutaneous endoscopic gastrostomy. 10. Seizure disorder. 11. History of breast cancer. 12. Morbid obesity. 13. Methicillin-resistant Staphylococcus aureus and vancomycin-resistant Enterococcus colonized. 14. No antibiotic allergies. 15. Full Code. PLAN: 1. Continue empiric IV vancomycin and Zosyn day #1. 2. Check abdominal ultrasound and hepatitis panel. 3. Repeat blood cultures in the morning to document clearance. 4. Follow up cultures and adjust antibiotics accordingly. 5. Monitor CBC and temperatures. 6. Monitor BMP. 7. Monitor chest x-ray. 8. Ventilator support. 9. Tracheostomy care and aspiration precautions. 10. Seizure precautions. Thank you. We will follow. Rachid Yee M.D. DR: Hailee JOB#: [id number] CC: Savi Rodriguez M.D.; Fax#: [phone] Smith, M.D. Delmer Madera M.D; Fax#: [phone]
[2016-10-10] MEDS: Norepinephrine 4mg in D5W 250ml IV SCH (21:00)
[2016-10-10] MEDS ORDERED: Vancomycin 1 GM in D5W 275 ML IV SCH (23:00)
[2016-10-11] VITALS (18 sets, daily range): BP systolic 93–133; BP diastolic 48–71
[2016-10-11] MEDS: Piperacillin/Tazobactam 3.375 GM in NS 110 ML IVPB SCH ×3 (05:58→22:11)
[2016-10-11 05:59] LABS: BASOPHILS % (AUTO) 0.7 % (0.0-2.0); EOSINOPHILS % (AUTO) 3.2 % (0.0-3.0); LYMPHOCYTES % (AUTO) 9.4 % (20.0-45.0); MEAN CORPUSCULAR HEMOGLOBIN 31.3 PG (27.0-31.0); MEAN CORPUSCULAR HGB CONC 31.9 G/DL (32.0-36.0); MEAN CORPUSCULAR VOLUME 98 FL (80-99); MEAN PLATELET VOLUME 8.6 FL (6.5-10.1); MONOCYTES % (AUTO) 7.8 % (1.0-10.0); NEUTROPHILS % (AUTO) 78.9 % (45.0-75.0); PLATELET COUNT 272 K/UL (150-450); RED BLOOD COUNT 2.72 M/UL (4.20-5.40); RED CELL DISTRIBUTION WIDTH 16.1 % (11.6-14.8); WHITE BLOOD COUNT 7.8 K/UL (4.8-10.8)
[2016-10-11 06:25] LABS: ALANINE AMINOTRANSFERASE 40 U/L (3-33); ALBUMIN/GLOBULIN RATIO 0.6 (1.0-2.7); ANION GAP 12 (5-15); ASPARTATE AMINO TRANSFERASE 51 U/L (5-40); CALCIUM 9.3 mg/dL (8.6-10.2); CARBON DIOXIDE 31 mEQ/L (20-30); CHLORIDE 93 mEQ/L (98-107); CREATININE 0.3 mg/dL (0.5-0.9); HEMOLYSIS 0; MAGNESIUM 1.8 mg/dL (1.7-2.5); PHOSPHORUS 3.3 mg/dL (2.5-4.8); SODIUM 136 mEQ/L (135-145); TOTAL PROTEIN 6.3 g/dL (6.6-8.7)
[2016-10-11 06:27] LABS: POTASSIUM 2.7 mEQ/L (3.4-4.9)
--- NOTE | 2016-10-11 09:10 | Diagnostic Imaging Report ---
Indication: SOB Technique: One view of the chest Comparison: 09/26/2016 Findings: There is a tracheostomy. There is a left arm PICC. Mild prominence to the pulmonary vascularity appears similar to the prior study. There may be a small left pleural effusion, not definitely evident previously. Impression: Questionable mild interstitial congestion. Suspect small left pleural effusion
[2016-10-11] MEDS: Vancomycin 1250mg/D5W 275ml IVPB SCH ×2 (09:26)
[2016-10-11] MEDS: levETIRAcetam 500mg/5ml Liquid GT SCH ×2 (09:27→20:53)
[2016-10-11] MEDS: Pantoprazole Inj IVP SCH (09:27)
[2016-10-11] MEDS: Levothyroxine 25mcg tab GT SCH (09:28)
[2016-10-11] MEDS: Phenytoin Susp 100mg/4ml GT SCH ×2 (09:28→20:53)
[2016-10-11] MEDS: Heparin 5000 units/ml inj SUBQ SCH ×2 (09:29→20:56)
--- NOTE | 2016-10-11 09:30 | Pulmonolgy Critical Care Note ---
Critical Care - Asmt/Plan Problems: (1) Septic shock (2) Bacteremia due to Gram-negative bacteria (3) Anoxic brain damage syndrome (4) Vegetative state (5) Feeding by G-tube Respiratory: monitor respiratory rate, adjust FIO2 Cardiac: continue pressors Renal: F/U I&O, keep IV fluid, check electrolytes Gastrointestinal: continue feedings/current rate Endocrine: monitor blood sugar, check TSH Hematologic: monitor H/H Neurologic: PRN Ativan, keep patient comfortable Prophylaxis: Protonix, Heparin Disposition: keep in ICU 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: credit collection specialist, cardio, 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, consultants, case coordinatorassistant program manager - Objective Last 24 Hour Vital Signs Date Time Temp Pulse Resp B/P Pulse Ox O2 Delivery O2 Flow Rate FiO2 10/11/16 09:00 91 19 40 10/11/16 07:04 91 13 40 10/11/16 07:00 93 16 123/55 96 Mechanical Ventilator 40 10/11/16 06:00 96 17 114/55 96 Mechanical Ventilator 40 10/11/16 05:11 99 20 40 10/11/16 05:00 97 22 119/59 96 Mechanical Ventilator 40 10/11/16 04:00 40 10/11/16 04:00 98.0 97 19 124/53 96 Mechanical Ventilator 40 10/11/16 04:00 97 10/11/16 03:13 95 19 40 10/11/16 03:00 96 20 117/51 96 Mechanical Ventilator 40 10/11/16 02:00 96 20 110/55 96 Mechanical Ventilator 40 10/11/16 01:09 92 16 40 10/11/16 01:00 95 20 117/48 96 Mechanical Ventilator 40 10/11/16 00:00 92 10/11/16 00:00 98.1 92 17 112/53 95 Mechanical Ventilator 40 10/11/16 00:00 40 10/10/16 23:11 91 19 40 10/10/16 23:00 93 18 140/70 96 Mechanical Ventilator 40 10/10/16 22:00 93 18 140/70 96 Mechanical Ventilator 40 10/10/16 21:21 91 22 40 10/10/16 21:00 92 18 123/54 96 Mechanical Ventilator 40 10/10/16 21:00 123/54 10/10/16 20:06 96 10/10/16 20:06 40 10/10/16 20:03 98.0 91 18 119/50 96 Mechanical Ventilator 40 10/10/16 19:11 93 16 40 10/10/16 19:00 97 18 121/50 96 Mechanical Ventilator 40 10/10/16 18:14 94 18 117/66 96 Mechanical Ventilator 40.0 10/10/16 17:10 94 20 40 10/10/16 17:00 95 18 112/52 96 Mechanical Ventilator 40.0 10/10/16 16:18 92 10/10/16 16:00 40 10/10/16 16:00 97.7 94 18 117/46 96 Mechanical Ventilator 40.0 10/10/16 15:07 97 14 40 10/10/16 13:09 91 20 110/49 97 Mechanical Ventilator 40 10/10/16 12:43 89 23 40 10/10/16 12:40 92 10/10/16 12:16 40 10/10/16 12:03 97.7 92 22 113/43 99 Mechanical Ventilator 40 10/10/16 11:09 94 24 40 10/10/16 11:03 93 17 112/51 97 Mechanical Ventilator 40 10/10/16 10:00 97 18 108/51 95 Mechanical Ventilator 40 10/10/16 09:29 94 14 40 Status: obtunded Condition: critical HEENT: atraumatic Neck: full ROM Lungs: clear Heart: HR/BP stable Abdomen: soft, non-tender Extremities: no C/C/E, edema Decubiti: location Micro: Microbiology Date/Time Source Procedure Growth Status 10/09/16 15:40 Blood Blood Culture - Preliminary Gram Negative Bacillus 1 Resulted 10/09/16 15:25 Blood Blood Culture - Preliminary Gram Negative Bacillus 1 Resulted 10/10/16 00:40 Sputum Gram Stain - Final Resulted 10/10/16 00:40 Sputum Sputum Culture Pending Resulted 10/10/16 00:00 Stool Clostridium difficile Toxin Assay - Final Complete 10/09/16 15:40 Urine,Clean Catch Urine Culture - Preliminary Gram Negative Bacillus 1 Resulted Critical Care - Subjective ROS Limited/Unobtainable: No ICU Day: 3 Intubation Day: 3 Condition: critical FI02: 40 Vent Support Breath Rate: 12 Vent Support Mode: AC Vent Tidal Volume: 500 Sputum Amount: Moderate PEEP: 5.0 PIP: 23 I&O: Intake and Output 10/10/16 10/11/16 19:00 07:00 Intake Total 610.0 ml 420.83 ml Output Total 945 ml 590 ml Balance -335.0 ml -169.17 ml Intake Free Water 100 ml IV Total 330.0 ml 320.83 ml Tube Feeding 150 ml 100 ml Other 30 ml Output Urine Total 925 ml 590 ml Other 20 ml 0 ml # Bowel Movements 4 CXR: no changes Labs: Laboratory Tests Test 10/11/16 05:00 White Blood Count 7.8 K/UL (4.8-10.8) Red Blood Count 2.72 M/UL (4.20-5.40) L Hemoglobin 8.5 G/DL (12.0-16.0) L Hematocrit 26.7 % (37.0-47.0) L Mean Corpuscular Volume 98 FL (80-99) Mean Corpuscular Hemoglobin 31.3 PG (27.0-31.0) H Mean Corpuscular Hemoglobin Concent 31.9 G/DL (32.0-36.0) L Red Cell Distribution Width 16.1 % (11.6-14.8) H Platelet Count 272 K/UL (150-450) Mean Platelet Volume 8.6 FL (6.5-10.1) Neutrophils (%) (Auto) 78.9 % (45.0-75.0) H Lymphocytes (%) (Auto) 9.4 % (20.0-45.0) L Monocytes (%) (Auto) 7.8 % (1.0-10.0) Eosinophils (%) (Auto) 3.2 % (0.0-3.0) H Basophils (%) (Auto) 0.7 % (0.0-2.0) Sodium Level 136 mEQ/L (135-145) Potassium Level 2.7 mEQ/L (3.4-4.9) *L Chloride Level 93 mEQ/L (98-107) L Carbon Dioxide Level 31 mEQ/L (20-30) H Anion Gap 12 (5-15) Blood Urea Nitrogen 5 mg/dL (7-23) L Creatinine 0.3 mg/dL (0.5-0.9) L Estimat Glomerular Filtration Rate mL/min (>60) Glucose Level 98 mg/dL (74-106) Calcium Level 9.3 mg/dL (8.6-10.2) Phosphorus Level 3.3 mg/dL (2.5-4.8) Magnesium Level 1.8 mg/dL (1.7-2.5) Total Bilirubin 0.3 mg/dL (0.0-1.2) Aspartate Amino Transf (AST/SGOT) 51 U/L (5-40) H Alanine Aminotransferase (ALT/SGPT) 40 U/L (3-33) H Alkaline Phosphatase 358 U/L (35-104) H Total Protein 6.3 g/dL (6.6-8.7) L Albumin 2.4 g/dL (3.5-5.2) L Globulin 3.9 g/dL Albumin/Globulin Ratio 0.6 (1.0-2.7) L Hepatitis A IgM Antibody Pending Hepatitis B Surface Antigen Pending Hepatitis B Core IgM Antibody Pending Hepatitis C Antibody Pending ANGELA DAVILA Oct 11, 2016 09:30
--- NOTE | 2016-10-11 12:32 | Diagnostic Imaging Report ---
Indication: DYSPNEA Technique: One view of the chest Comparison: 10/09/2016 Findings: Body habitus limits evaluation. The heart is borderline enlarged. Tracheostomy, bilateral PICCs again demonstrated. Lungs and pleural spaces are clear Impression: Findings as noted. No definite acute process
[2016-10-11] MEDS ORDERED: NS 275ml ONE (14:55)
[2016-10-11] MEDS ORDERED: Tubing IV Secondary IV ONE (14:55)
--- NOTE | 2016-10-11 15:32 | Infectious Diseases Prog Note ---
Assessment/Plan Assessment/Plan ASSESSMENT: 76 y/o female with: // GNR bacteremia 12/06 ?urinary vs biliary source - C&S, repeat BCx pending // GNR UTI - C&S pending, recent qR-E.coli // Elevated LFTs r/o hepatobiliary disease - hepatitis panel, US pending // Recent possible aspiration PNA / pneumonitis - SCx A.lwoffi, PSA SP Rx, no evidence of recurrence - CXR 10/10: Lungs and pleural spaces are clear // Negative C.difficile // Sepsis SP // Leukocytosis - resolved // Fever - resolved // SP PICC 10/10 ( placed while bacteremic ) // Chronic anoxic encephalopathy // Chronic VDRF SP trach, PEG // Seizure disorder // h/o breast CA // Morbid obesity // MRSA, VRE colonized // No ABX allergies // Full Code PLAN: - continue empiric IV vancomycin, zosyn d# 2 / , may limit vanco soon if no GPR identified ( 09/27 SP IV zosyn d# 6 / 7 ) ( 09/26 SP IV Vanco d # 6 ) ( 09/23 SP amikacin d# 3 ) - f/u abdo US, hepatitis panel - f/u cultures, adjust ABX accordingly - monitor CBC, temperatures - monitor BMP - monitor CXR - vent support, trach care, aspiration precautions - seizure precautions Subjective Allergies: Coded Allergies: PEANUT (Verified Allergy, Unknown, 09/22/16) Subjective fevers, leukocytosis resolved Objective Vital Signs Last 24 Hour Vital Signs Date Time Temp Pulse Resp B/P Pulse Ox O2 Delivery O2 Flow Rate FiO2 10/11/16 15:01 89 20 103/62 97 Mechanical Ventilator 40 10/11/16 14:00 89 20 115/49 93 Mechanical Ventilator 40 10/11/16 13:00 85 22 116/51 96 Mechanical Ventilator 40 10/11/16 12:56 88 14 40 10/11/16 12:00 81 10/11/16 12:00 97.7 88 21 133/71 95 Mechanical Ventilator 40 10/11/16 12:00 40 10/11/16 11:14 93 18 40 10/11/16 11:00 87 25 93/49 96 Mechanical Ventilator 40 10/11/16 10:00 91 25 112/48 96 Mechanical Ventilator 40 10/11/16 09:00 91 22 123/55 96 Mechanical Ventilator 40 10/11/16 09:00 91 19 40 10/11/16 08:00 40 10/11/16 08:00 92 10/11/16 08:00 98.7 92 16 128/55 98 Mechanical Ventilator 40 10/11/16 07:04 91 13 40 10/11/16 07:00 93 16 123/55 96 Mechanical Ventilator 40 10/11/16 06:00 96 17 114/55 96 Mechanical Ventilator 40 10/11/16 05:11 99 20 40 10/11/16 05:00 97 22 119/59 96 Mechanical Ventilator 40 10/11/16 04:00 40 10/11/16 04:00 98.0 97 19 124/53 96 Mechanical Ventilator 40 10/11/16 04:00 97 10/11/16 03:13 95 19 40 10/11/16 03:00 96 20 117/51 96 Mechanical Ventilator 40 10/11/16 02:00 96 20 110/55 96 Mechanical Ventilator 40 10/11/16 01:09 92 16 40 10/11/16 01:00 95 20 117/48 96 Mechanical Ventilator 40 10/11/16 00:00 92 10/11/16 00:00 98.1 92 17 112/53 95 Mechanical Ventilator 40 10/11/16 00:00 40 10/10/16 23:11 91 19 40 10/10/16 23:00 93 18 140/70 96 Mechanical Ventilator 40 10/10/16 22:00 93 18 140/70 96 Mechanical Ventilator 40 10/10/16 21:21 91 22 40 10/10/16 21:00 92 18 123/54 96 Mechanical Ventilator 40 10/10/16 21:00 123/54 10/10/16 20:06 96 10/10/16 20:06 40 10/10/16 20:03 98.0 91 18 119/50 96 Mechanical Ventilator 40 10/10/16 19:11 93 16 40 10/10/16 19:00 97 18 121/50 96 Mechanical Ventilator 40 10/10/16 18:14 94 18 117/66 96 Mechanical Ventilator 40.0 10/10/16 17:10 94 20 40 10/10/16 17:00 95 18 112/52 96 Mechanical Ventilator 40.0 10/10/16 16:18 92 10/10/16 16:00 40 10/10/16 16:00 97.7 94 18 117/46 96 Mechanical Ventilator 40.0 Height (Feet): 5 Height (Inches): 4.00 Weight (Pounds): 260 General Appearance: no acute distress HEENT: status post trach Respiratory/Chest: decreased breath sounds Cardiovascular: normal rate, regular rhythm Abdomen: normal bowel sounds, soft, non tender, non distended Microbiology Date/Time Source Procedure Growth Status 10/09/16 15:40 Blood Blood Culture - Preliminary Gram Negative Bacillus 1 Resulted 10/09/16 15:25 Blood Blood Culture - Preliminary Gram Negative Bacillus 1 Resulted 10/10/16 00:40 Sputum Gram Stain - Final Resulted 10/10/16 00:40 Sputum Sputum Culture Pending Resulted 10/10/16 00:00 Stool Clostridium difficile Toxin Assay - Final Complete 10/09/16 15:40 Urine,Clean Catch Urine Culture - Preliminary Gram Negative Bacillus 1 Resulted Laboratory Tests Test 10/11/16 05:00 10/11/16 09:00 White Blood Count 7.8 K/UL (4.8-10.8) Red Blood Count 2.72 M/UL (4.20-5.40) L Hemoglobin 8.5 G/DL (12.0-16.0) L Hematocrit 26.7 % (37.0-47.0) L Mean Corpuscular Volume 98 FL (80-99) Mean Corpuscular Hemoglobin 31.3 PG (27.0-31.0) H Mean Corpuscular Hemoglobin Concent 31.9 G/DL (32.0-36.0) L Red Cell Distribution Width 16.1 % (11.6-14.8) H Platelet Count 272 K/UL (150-450) Mean Platelet Volume 8.6 FL (6.5-10.1) Neutrophils (%) (Auto) 78.9 % (45.0-75.0) H Lymphocytes (%) (Auto) 9.4 % (20.0-45.0) L Monocytes (%) (Auto) 7.8 % (1.0-10.0) Eosinophils (%) (Auto) 3.2 % (0.0-3.0) H Basophils (%) (Auto) 0.7 % (0.0-2.0) Sodium Level 136 mEQ/L (135-145) Potassium Level 2.7 mEQ/L (3.4-4.9) *L Chloride Level 93 mEQ/L (98-107) L Carbon Dioxide Level 31 mEQ/L (20-30) H Anion Gap 12 (5-15) Blood Urea Nitrogen 5 mg/dL (7-23) L Creatinine 0.3 mg/dL (0.5-0.9) L Estimat Glomerular Filtration Rate mL/min (>60) Glucose Level 98 mg/dL (74-106) Calcium Level 9.3 mg/dL (8.6-10.2) Phosphorus Level 3.3 mg/dL (2.5-4.8) Magnesium Level 1.8 mg/dL (1.7-2.5) Total Bilirubin 0.3 mg/dL (0.0-1.2) Aspartate Amino Transf (AST/SGOT) 51 U/L (5-40) H Alanine Aminotransferase (ALT/SGPT) 40 U/L (3-33) H Alkaline Phosphatase 358 U/L (35-104) H Total Protein 6.3 g/dL (6.6-8.7) L Albumin 2.4 g/dL (3.5-5.2) L Globulin 3.9 g/dL Albumin/Globulin Ratio 0.6 (1.0-2.7) L Hepatitis A IgM Antibody Pending Hepatitis B Surface Antigen Pending Hepatitis B Core IgM Antibody Pending Hepatitis C Antibody Pending Vancomycin Level Trough 16.7 ug/mL (5.0-12.0) H Current Medications Medications (Trade) Dose Ordered Sig/Boubacar Route PRN Reason Start Time Stop Time Status Last Admin Dose Admin Acetaminophen (Tylenol) 650 mg Q4H PRN GT T>100.5 10/10/16 09:00 11/09/16 08:59 Albuterol/ Ipratropium (DuoNeb 0.5-3(2.5)mg/3ml) 3 ml Q4H PRN HHN Shortness of Breath 10/09/16 19:00 10/14/16 18:59 Dextrose STAT PRN IV Hypoglycemia 10/09/16 19:00 11/08/16 18:59 Heparin Sodium (Porcine) (Heparin 5000 units/ml) 5,000 units EVERY 12 HOURS SUBQ 10/09/16 21:00 11/08/16 20:59 10/11/16 09:29 Levetiracetam (Keppra) 1,500 mg Q12HR GT 10/10/16 09:00 11/09/16 08:59 10/11/16 09:27 Levothyroxine Sodium (Synthroid) 25 mcg DAILY GT 10/10/16 09:00 11/09/16 08:59 10/11/16 09:28 Lorazepam (Ativan 2mg/ml 1ml) 2 mg Q2H PRN IV For Anxiety 10/09/16 19:00 10/16/16 18:59 Morphine Sulfate (Morphine Sulfate) 4 mg Q4H PRN IVP Severe Pain (Pain Scale 7-10) 10/09/16 19:00 10/16/16 18:59 Norepinephrine Bitartrate/ Dextrose (Levophed/D5W) 250 ml @ 0 mls/hr Q24H IV 10/09/16 21:00 11/08/16 20:59 10/09/16 21:44 Ondansetron HCl (Zofran) 4 mg Q6H PRN IVP Nausea & Vomiting 10/09/16 19:00 11/08/16 18:59 Pantoprazole 40 mg 40 mg DAILY IVP 10/10/16 12:00 11/09/16 11:59 10/11/16 09:27 Phenytoin (Dilantin) 150 mg BID GT 10/10/16 09:00 11/09/16 08:59 10/11/16 09:28 Piperacillin Sod/ Tazobactam Sod/ Sodium Chloride (Zosyn/Sodium Chloride) 110 ml @ 27.5 mls/hr Q8HR IVPB 10/09/16 22:00 10/16/16 21:59 10/11/16 13:03 Polyethylene Glycol (Miralax) 17 gm DAILYPRN PRN ORAL Constipation 10/09/16 19:00 11/08/16 18:59 Potassium Chloride (KCl 20mEq/100ml Premix) 100 ml @ 50 mls/hr Q2H IVPB 10/11/16 08:00 10/11/16 23:59 10/11/16 13:03 Vancomycin HCl 1.25 gm/Dextrose 275 ml @ 183.333 mls/hr Q12HR IVPB 10/09/16 21:00 10/14/16 20:59 10/11/16 09:26 Vancomycin HCl 1 ea 1 ea DAILY PRN MISC . 10/09/16 19:15 11/08/16 19:14 TREE BARRIENTOS Oct 11, 2016 15:32
[2016-10-11] MEDS ORDERED: LORazepam Inj 2mg/ml 1ml IV PRN (17:00)
[2016-10-11] MEDS ORDERED: Morphine Sulfate 4mg/ml Inj IVP PRN (17:00)
[2016-10-11] MEDS ORDERED: Acetaminophen 650mg/20.3ml GT PRN (17:00)
[2016-10-11] MEDS ORDERED: DuoNeb 0.5-3(2.5)mg/3ml neb HHN PRN (17:00)
[2016-10-11] MEDS ORDERED: Miralax 17gm pkt ORAL PRN (19:00)
--- NOTE | 2016-10-11 20:23 | Cardiology Report ---
APPROVED REPORT EKG Measurement Heart [id number] Sinus tachycardia Possible Inferior infarct, age undetermined Cannot rule out Anterior infarct, age undetermined Abnormal ECG
[2016-10-11] MEDS: Vancomycin 1.25 GM in D5W 275 ML IVPB SCH (20:52)
[2016-10-12] VITALS: BP 120/65
[2016-10-12 04:00] VITALS: BP 108/60
[2016-10-12] MEDS: Piperacillin/Tazobactam 3.375 GM in NS 110 ML IVPB SCH (05:37)
[2016-10-12 05:42] LABS: BASOPHILS % (AUTO) 0.9 % (0.0-2.0); EOSINOPHILS % (AUTO) 3.7 % (0.0-3.0); LYMPHOCYTES % (AUTO) 11.5 % (20.0-45.0); MEAN CORPUSCULAR HEMOGLOBIN 30.8 PG (27.0-31.0); MEAN CORPUSCULAR HGB CONC 30.8 G/DL (32.0-36.0); MEAN CORPUSCULAR VOLUME 100 FL (80-99); MEAN PLATELET VOLUME 7.7 FL (6.5-10.1); MONOCYTES % (AUTO) 7.1 % (1.0-10.0); NEUTROPHILS % (AUTO) 76.8 % (45.0-75.0); PLATELET COUNT 252 K/UL (150-450); RED BLOOD COUNT 2.81 M/UL (4.20-5.40); RED CELL DISTRIBUTION WIDTH 15.8 % (11.6-14.8); WHITE BLOOD COUNT 6.4 K/UL (4.8-10.8)
[2016-10-12 06:17] LABS: ALANINE AMINOTRANSFERASE 33 U/L (3-33); ALBUMIN/GLOBULIN RATIO 0.5 (1.0-2.7); ANION GAP 13 (5-15); ASPARTATE AMINO TRANSFERASE 38 U/L (5-40); CALCIUM 9.7 mg/dL (8.6-10.2); CARBON DIOXIDE 29 mEQ/L (20-30); CHLORIDE 99 mEQ/L (98-107); CREATININE 0.4 mg/dL (0.5-0.9); HEMOLYSIS 0; MAGNESIUM 1.8 mg/dL (1.7-2.5); PHOSPHORUS 3.3 mg/dL (2.5-4.8); POTASSIUM 3.2 mEQ/L (3.4-4.9); SODIUM 141 mEQ/L (135-145); TOTAL PROTEIN 6.7 g/dL (6.6-8.7)
[2016-10-12] MEDS: Levothyroxine 25mcg tab GT SCH (06:48)
[2016-10-12 08:00] VITALS: BP 116/69
[2016-10-12] MEDS: Heparin 5000 units/ml inj SUBQ SCH ×2 (08:48→20:35)
[2016-10-12] MEDS: Vancomycin 1.25 GM in D5W 275 ML IVPB SCH (08:49)
[2016-10-12] MEDS: Pantoprazole Inj IVP SCH (08:49)
[2016-10-12] MEDS: Phenytoin Susp 100mg/4ml GT SCH ×2 (08:50→20:34)
[2016-10-12] MEDS: levETIRAcetam 500mg/5ml Liquid GT SCH ×2 (08:51→20:35)
[2016-10-12 09:05] LABS: ABG PCO2 45.1 mmHg (35.0-45.0)
[2016-10-12 09:06] LABS: ABG ALLEN TEST POSITIVE; ABG BASE EXCESS 3.4
--- NOTE | 2016-10-12 11:40 | Diagnostic Imaging Report ---
Indications: DYSPNEA Technique: Portable AP chest Findings: Comparison: 10/11/2016 Heart size, pulmonary vasculature remain within normal limits. Visualized portions of lungs and pleura remain grossly clear. Left PICC has been removed. Right short PICC remains in place.. Tracheostomy tube remains in place. IMPRESSION: Removal of left PICC No other change from 2 days prior
--- NOTE | 2016-10-12 11:54 | Pulmonology Progress Note ---
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, 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, 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, consultants, case 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 machine adjuster Subjective ROS Limited/Unobtainable: No Constitutional: Reports: no symptoms HEENT: Repors: no symptoms Respiratory: Reports: no symptoms Allergies: Coded Allergies: PEANUT (Verified Allergy, Unknown, 09/22/16) Objective Last 24 Hour Vital Signs Date Time Temp Pulse Resp B/P Pulse Ox O2 Delivery O2 Flow Rate FiO2 10/12/16 11:24 82 10/12/16 11:24 40 10/12/16 10:32 88 18 40 10/12/16 08:51 89 18 40 10/12/16 08:00 97.0 88 24 116/69 98 Mechanical Ventilator 40 10/12/16 08:00 40 10/12/16 08:00 88 10/12/16 06:41 87 18 40 10/12/16 05:00 88 20 40 10/12/16 04:00 91 10/12/16 04:00 40 10/12/16 04:00 97.7 87 20 108/60 96 Mechanical Ventilator 40 10/12/16 03:00 86 19 40 10/12/16 01:26 89 21 40 10/12/16 00:00 98.1 81 16 120/65 96 Mechanical Ventilator 40 10/12/16 00:00 83 10/12/16 00:00 40 10/11/16 23:18 89 18 40 10/11/16 21:28 92 20 40 10/11/16 20:00 40 10/11/16 20:00 82 10/11/16 20:00 97.5 83 22 128/54 99 Mechanical Ventilator 40 10/11/16 19:00 92 19 40 10/11/16 17:15 87 18 40 10/11/16 16:00 40 10/11/16 16:00 87 10/11/16 16:00 98.8 91 18 112/61 97 Mechanical Ventilator 40 10/11/16 15:32 92 23 40 10/11/16 15:01 89 20 103/62 97 Mechanical Ventilator 40 10/11/16 14:00 89 20 115/49 93 Mechanical Ventilator 40 10/11/16 13:00 85 22 116/51 96 Mechanical Ventilator 40 10/11/16 12:56 88 14 40 10/11/16 12:00 81 10/11/16 12:00 97.7 88 21 133/71 95 Mechanical Ventilator 40 10/11/16 12:00 40 Intake and Output 10/11/16 10/12/16 19:00 07:00 Intake Total 425.000 ml 596.666 ml Output Total 505 ml 860 ml Balance -80.000 ml -263.334 ml IV Total 425.000 ml 476.666 ml Tube Feeding 120 ml Output Urine Total 505 ml 850 ml Other 0 ml 10 ml # Bowel Movements 1 General Appearance: WD/WN HEENT: normocephalic, atraumatic Respiratory/Chest: chest wall non-tender, lungs clear Cardiovascular: normal peripheral pulses, normal rate Abdomen: normal bowel sounds, soft, non tender Extremities: no cyanosis, no clubbing Neurologic/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: 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 II-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9 10/12/16 03:55: Potassium Level 3.2L, White Blood Count 6.4, Red Blood Count 2.81L, Hemoglobin 8.7L, Hematocrit 28.1L, Mean Corpuscular Volume 100H, Mean Corpuscular Hemoglobin 30.8, Mean Corpuscular Hemoglobin Concent 30.8L, Red Cell Distribution Width 15.8H, Platelet Count 252, Mean Platelet Volume 7.7, Neutrophils (%) (Auto) 76.8H, Lymphocytes (%) (Auto) 11.5L, Monocytes (%) (Auto ) 7.1, Eosinophils (%) (Auto) 3.7H, Basophils (%) (Auto) 0.9, Sodium Level 141, Chloride Level 99, Carbon Dioxide Level 29, Anion Gap 13, Blood Urea Nitrogen 5L , Creatinine 0.4L, Estimat Glomerular Filtration Rate , Glucose Level 101, Calcium Level 9.7, Phosphorus Level 3.3, Magnesium Level 1.8, Total Bilirubin 0.3, Aspartate Amino Transf (AST/SGOT) 38, Alanine Aminotransferase (ALT/SGPT) 33, Alkaline Phosphatase 326H, Total Protein 6.7, Albumin 2.5L, Globulin 4.2, Albumin/Globulin Ratio 0.5L 10/12/16 08:51: Arterial Blood pH 7.417, Arterial Blood Partial Pressure CO2 45.1H, Arterial Blood Partial Pressure O2 94.3, Arterial Blood HCO3 28.4H, Arterial Blood Oxygen Saturation 96.5, Arterial Blood Base Excess 3.4, Best Test Positive Current Medications Medications (Trade) Dose Ordered Sig/Boubacar Route PRN Reason Start Time Stop Time Status Last Admin Dose Admin Acetaminophen (Tylenol) 650 mg Q4H PRN GT T>100.5 10/11/16 17:00 11/10/16 16:59 Albuterol/ Ipratropium (DuoNeb 0.5-3(2.5)mg/3ml) 3 ml Q4H PRN HHN Shortness of Breath 10/11/16 17:00 10/16/16 16:59 Dextrose (Dextrose 50%) STAT PRN IV Hypoglycemia 10/11/16 17:00 11/10/16 16:59 Heparin Sodium (Porcine) (Heparin 5000 units/ml) 5,000 units EVERY 12 HOURS SUBQ 10/11/16 21:00 11/10/16 20:59 10/12/16 08:48 Levetiracetam (Keppra) 1,500 mg Q12HR GT 10/11/16 21:00 11/10/16 20:59 10/12/16 08:51 Levothyroxine Sodium (Synthroid) 25 mcg ACBREAKFAST GT 10/12/16 06:30 11/11/16 06:29 10/12/16 06:48 Lorazepam (Ativan 2mg/ml 1ml) 2 mg Q2H PRN IV For Anxiety 10/11/16 17:00 10/18/16 16:59 Morphine Sulfate (Morphine Sulfate) 4 mg Q4H PRN IVP Severe Pain (Pain Scale 7-10) 10/11/16 17:00 10/18/16 16:59 Ondansetron HCl (Zofran) 4 mg Q6H PRN IVP Nausea & Vomiting 10/11/16 17:00 11/10/16 16:59 Pantoprazole (Protonix) 40 mg DAILY IVP 10/12/16 09:00 11/11/16 08:59 10/12/16 08:49 Phenytoin (Dilantin) 150 mg Q12HR GT 10/11/16 21:00 11/10/16 20:59 10/12/16 08:50 Piperacillin Sod/ Tazobactam Sod 3.375 gm/Sodium Chloride 110 ml @ 27.5 mls/hr Q8HR IVPB 10/11/16 22:00 10/16/16 21:59 10/12/16 05:37 Polyethylene Glycol (Miralax) 17 gm DAILYPRN PRN ORAL Constipation 10/11/16 19:00 11/10/16 18:59 Vancomycin HCl (Vanco rx to dose) 1 ea DAILY PRN MISC . 10/11/16 17:00 11/10/16 16:59 Vancomycin HCl/ Dextrose (Vancomycin/D5W) 275 ml @ 183.333 mls/hr Q12HR IVPB 10/11/16 21:00 10/16/16 20:59 10/12/16 08:49 ANGELA DAVILA Oct 12, 2016 11:54
[2016-10-12 12:00] VITALS: BP 119/58
--- NOTE | 2016-10-12 15:11 | Wound Care Consultation ---
Wound Assessment Wound Assessment : Wound Present on Admission: Yes New Wound: No Status Change of Wound: No Wound Location Body Site Modif: mid Wound Location Body Site: sacral Wound Type: pressure ulcer Jose Raul Test: Does not Jose Raul Pressure Ulcer Stage: III Wound Thickness: Full Thickness Wound Length: 2.0 Wound Width: 1.0 Wound Depth: 0.3 Percent of Wound Hazel/Red: 100 Wound Drainage Description: Serosanguineous Wound Drainage Amount: Scant Wound Drainage Odor: None/Absent Tissue Surrounding Wound: extensive full thickneass scar tissue Wound General Appearance: Reddened Wound Comment #1 Sacral stage III with extensive full thickness scar tissue Recommendation -Local wound care with Triad cream and dry drg -Keep clean and dry -Turn and reposition -Optimize nutrition -Offload both heels -Low air loss overlay mattress -Assess and f/u accordingly for any changes ELPIDIO LIMA RN Oct 12, 2016 15:11
[2016-10-12] MEDS: Colistin 150mg vial IVP SCH (15:52)
[2016-10-12 16:00] VITALS: BP 117/58
--- NOTE | 2016-10-12 16:14 | Diagnostic Imaging Report ---
APPROVED REPORT CPT Code: 60139 Present Symptoms Shortness of breath Comments: Technically difficult study due to obesity BILATERAL: Imaging reveals a patent deep venous system bilaterally. There is no evidence of thrombus within the femoral, popliteal or tibial segments. The greater saphenous veins are also within normal limits. Doppler indicates normal spontaneous flow within these segments.
[2016-10-12] MEDS: Ertapenem 1gm ivpb (q24h) IV SCH ×2 (17:00)
--- NOTE | 2016-10-12 17:55 | Infectious Diseases Prog Note ---
Assessment/Plan Assessment/Plan ASSESSMENT: 76 y/o female with: // MDR-K.pneumoniae bacteremia 12/06 ?urinary vs biliary source vs CLABSI - final sensi, repeat BCx pending - old left PICC removed, tip not sent for culture // qR-PSA UTI, recent qR-E.coli // Elevated LFTs r/o hepatobiliary disease - hepatitis panel negative, US pending // Recent possible aspiration PNA / pneumonitis - SCx A.lwoffi, PSA SP Rx, no evidence of recurrence. SCx 1+ GNR=colonizer - CXR 10/12: Lungs and pleural spaces are clear // Negative C.difficile // Sepsis SP // Leukocytosis - resolved // Fever - resolved // New right PICC 10/10 ( placed while bacteremic ) // Chronic anoxic encephalopathy // Chronic VDRF SP trach, PEG // Seizure disorder // h/o breast CA // Morbid obesity // MRSA, VRE colonized // No ABX allergies // Full Code PLAN: - change empiric IV zosyn d# 3 to invanz + colistin d# 1 pending cultures. DC IV vanco d# 3 ( 09/27 SP IV zosyn d# 6 / 7 ) ( 09/26 SP IV Vanco d # 6 ) ( 09/23 SP amikacin d# 3 ) - f/u cultures - f/u abdo US - monitor CBC, temperatures - monitor BMP - monitor CXR - vent support, trach care, aspiration precautions - seizure precautions Subjective Allergies: Coded Allergies: PEANUT (Verified Allergy, Unknown, 09/22/16) Subjective fevers, leukocytosis resolved cultures noted Objective Vital Signs Last 24 Hour Vital Signs Date Time Temp Pulse Resp B/P Pulse Ox O2 Delivery O2 Flow Rate FiO2 10/12/16 16:35 105 21 40 10/12/16 16:00 96.9 94 20 117/58 96 Mechanical Ventilator 40 10/12/16 16:00 40 10/12/16 15:09 95 10/12/16 14:30 91 21 40 10/12/16 12:43 89 18 40 10/12/16 12:00 97.9 88 20 119/58 98 Mechanical Ventilator 40 10/12/16 11:24 82 10/12/16 11:24 40 10/12/16 10:32 88 18 40 10/12/16 08:51 89 18 40 10/12/16 08:00 97.0 88 24 116/69 98 Mechanical Ventilator 40 10/12/16 08:00 40 10/12/16 08:00 88 10/12/16 06:41 87 18 40 10/12/16 05:00 88 20 40 10/12/16 04:00 91 10/12/16 04:00 40 10/12/16 04:00 97.7 87 20 108/60 96 Mechanical Ventilator 40 10/12/16 03:00 86 19 40 10/12/16 01:26 89 21 40 10/12/16 00:00 98.1 81 16 120/65 96 Mechanical Ventilator 40 10/12/16 00:00 83 10/12/16 00:00 40 10/11/16 23:18 89 18 40 10/11/16 21:28 92 20 40 10/11/16 20:00 40 10/11/16 20:00 82 10/11/16 20:00 97.5 83 22 128/54 99 Mechanical Ventilator 40 10/11/16 19:00 92 19 40 Height (Feet): 5 Height (Inches): 4.00 Weight (Pounds): 260 Microbiology Date/Time Source Procedure Growth Status 10/10/16 00:40 Sputum Gram Stain - Final Resulted 10/10/16 00:40 Sputum Culture - Preliminary Gram Negative Bacillus 1 Resulted 10/10/16 00:00 Stool Clostridium difficile Toxin Assay - Final Complete Laboratory Tests Test 10/11/16 18:00 10/12/16 03:55 10/12/16 08:51 Potassium Level 3.9 mEQ/L (3.4-4.9) 3.2 mEQ/L (3.4-4.9) L White Blood Count 6.4 K/UL (4.8-10.8) Red Blood Count 2.81 M/UL (4.20-5.40) L Hemoglobin 8.7 G/DL (12.0-16.0) L Hematocrit 28.1 % (37.0-47.0) L Mean Corpuscular Volume 100 FL (80-99) H Mean Corpuscular Hemoglobin 30.8 PG (27.0-31.0) Mean Corpuscular Hemoglobin Concent 30.8 G/DL (32.0-36.0) L Red Cell Distribution Width 15.8 % (11.6-14.8) H Platelet Count 252 K/UL (150-450) Mean Platelet Volume 7.7 FL (6.5-10.1) Neutrophils (%) (Auto) 76.8 % (45.0-75.0) H Lymphocytes (%) (Auto) 11.5 % (20.0-45.0) L Monocytes (%) (Auto) 7.1 % (1.0-10.0) Eosinophils (%) (Auto) 3.7 % (0.0-3.0) H Basophils (%) (Auto) 0.9 % (0.0-2.0) Sodium Level 141 mEQ/L (135-145) Chloride Level 99 mEQ/L (98-107) Carbon Dioxide Level 29 mEQ/L (20-30) Anion Gap 13 (5-15) Blood Urea Nitrogen 5 mg/dL (7-23) L Creatinine 0.4 mg/dL (0.5-0.9) L Estimat Glomerular Filtration Rate mL/min (>60) Glucose Level 101 mg/dL (74-106) Calcium Level 9.7 mg/dL (8.6-10.2) Phosphorus Level 3.3 mg/dL (2.5-4.8) Magnesium Level 1.8 mg/dL (1.7-2.5) Total Bilirubin 0.3 mg/dL (0.0-1.2) Aspartate Amino Transf (AST/SGOT) 38 U/L (5-40) Alanine Aminotransferase (ALT/SGPT) 33 U/L (3-33) Alkaline Phosphatase 326 U/L (35-104) H Total Protein 6.7 g/dL (6.6-8.7) Albumin 2.5 g/dL (3.5-5.2) L Globulin 4.2 g/dL Albumin/Globulin Ratio 0.5 (1.0-2.7) L Arterial Blood pH 7.417 (7.350-7.450) Arterial Blood Partial Pressure CO2 45.1 mmHg (35.0-45.0) H Arterial Blood Partial Pressure O2 94.3 mmHg (75.0-100.0) Arterial Blood HCO3 28.4 mmol/L (22.0-26.0) H Arterial Blood Oxygen Saturation 96.5 % (92.0-98.0) Arterial Blood Base Excess 3.4 Best Test Positive Current Medications Medications (Trade) Dose Ordered Sig/Boubacar Route PRN Reason Start Time Stop Time Status Last Admin Dose Admin Acetaminophen (Tylenol) 650 mg Q4H PRN GT T>100.5 10/11/16 17:00 11/10/16 16:59 Albuterol/ Ipratropium (DuoNeb 0.5-3(2.5)mg/3ml) 3 ml Q4H PRN HHN Shortness of Breath 10/11/16 17:00 10/16/16 16:59 Colistimethate Sodium (Colistin) 150 mg EVERY 12 HOURS IVP 10/12/16 15:00 10/19/16 14:59 10/12/16 15:52 Dextrose (Dextrose 50%) STAT PRN IV Hypoglycemia 10/11/16 17:00 11/10/16 16:59 Ertapenem/Sodium Chloride (INVanz/Sodium Chloride) 55 ml @ 110 mls/hr Q24H IV 10/12/16 16:00 10/17/16 15:59 10/12/16 17:00 Heparin Sodium (Porcine) (Heparin 5000 units/ml) 5,000 units EVERY 12 HOURS SUBQ 10/11/16 21:00 11/10/16 20:59 10/12/16 08:48 Levetiracetam (Keppra) 1,500 mg Q12HR GT 10/11/16 21:00 11/10/16 20:59 10/12/16 08:51 Levothyroxine Sodium (Synthroid) 25 mcg ACBREAKFAST GT 10/12/16 06:30 11/11/16 06:29 10/12/16 06:48 Lorazepam (Ativan 2mg/ml 1ml) 2 mg Q2H PRN IV For Anxiety 10/11/16 17:00 10/18/16 16:59 Morphine Sulfate (Morphine Sulfate) 4 mg Q4H PRN IVP Severe Pain (Pain Scale 7-10) 10/11/16 17:00 10/18/16 16:59 Ondansetron HCl (Zofran) 4 mg Q6H PRN IVP Nausea & Vomiting 10/11/16 17:00 11/10/16 16:59 Pantoprazole (Protonix) 40 mg DAILY IVP 10/12/16 09:00 11/11/16 08:59 10/12/16 08:49 Phenytoin (Dilantin) 150 mg Q12HR GT 10/11/16 21:00 11/10/16 20:59 10/12/16 08:50 Polyethylene Glycol (Miralax) 17 gm DAILYPRN PRN ORAL Constipation 10/11/16 19:00 11/10/16 18:59 Vancomycin HCl 1 ea 1 ea DAILY PRN MISC . 10/11/16 17:00 11/10/16 16:59 Vancomycin HCl/ Dextrose (Vancomycin/D5W) 275 ml @ 183.333 mls/hr Q12HR IVPB 10/11/16 21:00 10/16/16 20:59 10/12/16 08:49 TREE BARRIENTOS Oct 12, 2016 17:55
[2016-10-12] MEDS ORDERED: KCl 10% 40mEq/30ml liquid GT ONE (18:15)
[2016-10-12 20:32] VITALS: BP 125/67
[2016-10-13 00:43] VITALS: BP 118/54
[2016-10-13 04:00] VITALS: BP 128/56
[2016-10-13 04:46] LABS: ANION GAP 12 (5-15); CALCIUM 9.4 mg/dL (8.6-10.2); CARBON DIOXIDE 30 mEQ/L (20-30); CHLORIDE 99 mEQ/L (98-107); CREATININE 0.4 mg/dL (0.5-0.9); HEMOLYSIS 0; POTASSIUM 3.1 mEQ/L (3.4-4.9); SODIUM 141 mEQ/L (135-145)
[2016-10-13] MEDS: Levothyroxine 25mcg tab GT SCH (06:15)
[2016-10-13 08:00] VITALS: BP 108/54
[2016-10-13] MEDS ORDERED: KCl 10% 40mEq/30ml liquid GT ONE (08:00)
[2016-10-13] MEDS: Colistin 150mg vial IVP SCH (08:56)
[2016-10-13] MEDS: Pantoprazole Inj IVP SCH (08:56)
[2016-10-13] MEDS: Phenytoin Susp 100mg/4ml GT SCH ×2 (08:56→21:39)
[2016-10-13] MEDS: levETIRAcetam 500mg/5ml Liquid GT SCH ×2 (08:57→21:39)
[2016-10-13] MEDS: Heparin 5000 units/ml inj SUBQ SCH ×2 (08:59→21:41)
[2016-10-13 12:00] VITALS: BP 117/47
--- NOTE | 2016-10-13 13:28 | Pulmonology Progress Note ---
Assessment/Plan Problems: (1) Septic shock (2) Bacteremia (3) Aspiration pneumonia (4) Chronic respiratory failure (5) Feeding by G-tube (6) Vegetative state Respiratory: monitor respiratory rate, adjust FIO2, CXR Cardiac: continue pressors, stop pressors, continue to monitor HR/BP Renal: F/U I&O, keep IV fluid Infectious Disease: check cultures, continue antibiotics Gastrointestinal: hold feedings Endocrine: check TSH, continue sliding scale insulin Hematologic: monitor H/H, transfuse if hgb<8.5 Neurologic: PRN Ativan, PRN Morphine, keep patient comfortable Affect: PRN ativan Prophylaxis: Protonix, Heparin Time Spent (Minutes): 40 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, 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, consultants, case advocate Subjective ROS Limited/Unobtainable: Yes Allergies: Coded Allergies: PEANUT (Verified Allergy, Unknown, 09/22/16) Objective Last 24 Hour Vital Signs Date Time Temp Pulse Resp B/P Pulse Ox O2 Delivery O2 Flow Rate FiO2 10/13/16 12:00 85 10/13/16 10:50 92 22 40 10/13/16 09:45 89 22 40 10/13/16 08:00 91 10/13/16 08:00 40 10/13/16 08:00 98.2 91 20 108/54 97 Mechanical Ventilator 40 10/13/16 06:45 89 24 40 10/13/16 05:18 83 18 40 10/13/16 04:00 97.9 91 19 128/56 100 Mechanical Ventilator 40 10/13/16 04:00 40 10/13/16 03:47 93 10/13/16 03:20 92 21 40 10/13/16 01:14 89 18 40 10/13/16 00:43 98.1 92 20 118/54 99 Mechanical Ventilator 10/13/16 00:00 40 10/12/16 23:53 93 10/12/16 23:15 85 18 40 10/12/16 21:00 98 21 40 10/12/16 20:32 97.8 92 20 125/67 97 Mechanical Ventilator 40 10/12/16 20:00 40 10/12/16 19:11 93 10/12/16 19:00 93 23 40 10/12/16 16:35 105 21 40 10/12/16 16:00 96.9 94 20 117/58 96 Mechanical Ventilator 40 10/12/16 16:00 40 10/12/16 15:09 95 10/12/16 14:30 91 21 40 Intake and Output 10/12/16 10/13/16 19:00 07:00 Intake Total 780 ml 610 ml Output Total 400 ml 510 ml Balance 380 ml 100 ml Intake Free Water 100 ml 100 ml IV Total 330 ml Tube Feeding 350 ml 480 ml Other 30 ml Output Urine Total 350 ml 500 ml Other 50 ml 10 ml General Appearance: WD/WN HEENT: normocephalic, atraumatic Respiratory/Chest: chest wall non-tender, lungs clear Cardiovascular: normal peripheral pulses, normal rate Abdomen: normal bowel sounds, no organomegaly Extremities: no cyanosis, no clubbing Skin: no lesions Microbiology Date/Time Source Procedure Growth Status 10/11/16 04:10 Blood Blood Culture - Preliminary NO GROWTH AFTER 48 HOURS Resulted 10/11/16 04:00 Blood Blood Culture - Preliminary NO GROWTH AFTER 48 HOURS Resulted Laboratory Tests 10/13/16 04:00: Sodium Level 141, Potassium Level 3.1L, Chloride Level 99, Carbon Dioxide Level 30, Anion Gap 12, Blood Urea Nitrogen 6L, Creatinine 0.4L, Estimat Glomerular Filtration Rate , Glucose Level 119H, Calcium Level 9.4 Current Medications Medications (Trade) Dose Ordered Sig/Boubacar Route PRN Reason Start Time Stop Time Status Last Admin Dose Admin Acetaminophen (Tylenol) 650 mg Q4H PRN GT T>100.5 10/11/16 17:00 11/10/16 16:59 Albuterol/ Ipratropium (DuoNeb 0.5-3(2.5)mg/3ml) 3 ml Q4H PRN HHN Shortness of Breath 10/11/16 17:00 10/16/16 16:59 Colistimethate Sodium (Colistin) 150 mg EVERY 12 HOURS IVP 10/12/16 15:00 10/19/16 14:59 10/13/16 08:56 Dextrose (Dextrose 50%) STAT PRN IV Hypoglycemia 10/11/16 17:00 11/10/16 16:59 Ertapenem/Sodium Chloride (INVanz/Sodium Chloride) 55 ml @ 110 mls/hr Q24H IV 10/12/16 16:00 10/17/16 15:59 10/12/16 17:00 Heparin Sodium (Porcine) (Heparin 5000 units/ml) 5,000 units EVERY 12 HOURS SUBQ 10/11/16 21:00 11/10/16 20:59 10/13/16 08:59 Levetiracetam (Keppra) 1,500 mg Q12HR GT 10/11/16 21:00 11/10/16 20:59 10/13/16 08:57 Levothyroxine Sodium (Synthroid) 25 mcg ACBREAKFAST GT 10/12/16 06:30 11/11/16 06:29 10/13/16 06:15 Lorazepam (Ativan 2mg/ml 1ml) 2 mg Q2H PRN IV For Anxiety 10/11/16 17:00 10/18/16 16:59 Morphine Sulfate (Morphine Sulfate) 4 mg Q4H PRN IVP Severe Pain (Pain Scale 7-10) 10/11/16 17:00 10/18/16 16:59 Ondansetron HCl (Zofran) 4 mg Q6H PRN IVP Nausea & Vomiting 10/11/16 17:00 11/10/16 16:59 Pantoprazole (Protonix) 40 mg DAILY IVP 10/12/16 09:00 11/11/16 08:59 10/13/16 08:56 Phenytoin (Dilantin) 150 mg Q12HR GT 10/11/16 21:00 11/10/16 20:59 10/13/16 08:56 Polyethylene Glycol 17 gm 17 gm DAILYPRN PRN ORAL Constipation 10/11/16 19:00 11/10/16 18:59 ANGELA DAVILA Oct 13, 2016 13:28
[2016-10-13] MEDS ORDERED: NS 275ml ONE (15:30)
[2016-10-13] MEDS ORDERED: Tubing IV Secondary IV ONE (15:30)
[2016-10-13 16:00] VITALS: BP 103/57
--- NOTE | 2016-10-13 16:09 | Infectious Diseases Prog Note ---
Assessment/Plan Assessment/Plan ASSESSMENT: 76 y/o female with: // KPC-K.pneumoniae bacteremia 12/06 ?urinary vs biliary source vs CLABSI - repeat BCx NGTD - old left PICC removed, tip not sent for culture // qR-PSA UTI, recent qR-E.coli // Elevated LFTs r/o hepatobiliary disease - hepatitis panel negative, US pending // Recent possible aspiration PNA / pneumonitis - SCx A.lwoffi, PSA SP Rx, no evidence of recurrence. SCx 1+ P.mirabilis, GNR - CXR 10/12: Lungs and pleural spaces are clear // Negative C.difficile // Sepsis SP // Leukocytosis - resolved // Fever - resolved // New right PICC 10/10 ( placed while bacteremic ) // Chronic anoxic encephalopathy // Chronic VDRF SP trach, PEG // Seizure disorder // h/o breast CA // Morbid obesity // MRSA, VRE colonized // No ABX allergies // Full Code PLAN: - continue invanz ( suicide substrate ), add meropenem, tygacil d# 1 d# . DC colistin (R) ( 10/12 SP IV vanco, zosyn d# 3 ) ( 09/27 SP IV zosyn d# 6 / 7 ) ( 09/26 SP IV Vanco d # 6 ) ( 09/23 SP amikacin d# 3 ) - f/u cultures - f/u abdo US - monitor CBC, temperatures - monitor BMP - monitor CXR - vent support, trach care, aspiration precautions - seizure precautions Subjective Allergies: Coded Allergies: PEANUT (Verified Allergy, Unknown, 09/22/16) Subjective fevers, leukocytosis resolved cultures noted Objective Vital Signs Last 24 Hour Vital Signs Date Time Temp Pulse Resp B/P Pulse Ox O2 Delivery O2 Flow Rate FiO2 10/13/16 14:40 85 20 40 10/13/16 13:10 93 20 40 10/13/16 12:00 40 10/13/16 12:00 85 10/13/16 12:00 98.2 92 21 117/47 100 Mechanical Ventilator 40 10/13/16 10:50 92 22 40 10/13/16 09:45 89 22 40 10/13/16 08:00 91 10/13/16 08:00 40 10/13/16 08:00 98.2 91 20 108/54 97 Mechanical Ventilator 40 10/13/16 06:45 89 24 40 10/13/16 05:18 83 18 40 10/13/16 04:00 97.9 91 19 128/56 100 Mechanical Ventilator 40 10/13/16 04:00 40 10/13/16 03:47 93 10/13/16 03:20 92 21 40 10/13/16 01:14 89 18 40 10/13/16 00:43 98.1 92 20 118/54 99 Mechanical Ventilator 10/13/16 00:00 40 10/12/16 23:53 93 10/12/16 23:15 85 18 40 10/12/16 21:00 98 21 40 10/12/16 20:32 97.8 92 20 125/67 97 Mechanical Ventilator 40 10/12/16 20:00 40 10/12/16 19:11 93 10/12/16 19:00 93 23 40 10/12/16 16:35 105 21 40 10/12/16 16:00 96.9 94 20 117/58 96 Mechanical Ventilator 40 10/12/16 16:00 40 Height (Feet): 5 Height (Inches): 4.00 Weight (Pounds): 260 General Appearance: no acute distress Respiratory/Chest: no respiratory distress Cardiovascular: normal rate, regular rhythm Abdomen: normal bowel sounds, soft, non tender, non distended Microbiology Date/Time Source Procedure Growth Status 10/11/16 04:10 Blood Blood Culture - Preliminary NO GROWTH AFTER 48 HOURS Resulted 10/11/16 04:00 Blood Blood Culture - Preliminary NO GROWTH AFTER 48 HOURS Resulted Laboratory Tests Test 10/13/16 04:00 Sodium Level 141 mEQ/L (135-145) Potassium Level 3.1 mEQ/L (3.4-4.9) L Chloride Level 99 mEQ/L (98-107) Carbon Dioxide Level 30 mEQ/L (20-30) Anion Gap 12 (5-15) Blood Urea Nitrogen 6 mg/dL (7-23) L Creatinine 0.4 mg/dL (0.5-0.9) L Estimat Glomerular Filtration Rate mL/min (>60) Glucose Level 119 mg/dL (74-106) H Calcium Level 9.4 mg/dL (8.6-10.2) Current Medications Medications (Trade) Dose Ordered Sig/Boubacar Route PRN Reason Start Time Stop Time Status Last Admin Dose Admin Acetaminophen (Tylenol) 650 mg Q4H PRN GT T>100.5 10/11/16 17:00 11/10/16 16:59 Albuterol/ Ipratropium (DuoNeb 0.5-3(2.5)mg/3ml) 3 ml Q4H PRN HHN Shortness of Breath 10/11/16 17:00 10/16/16 16:59 Colistimethate Sodium (Colistin) 150 mg EVERY 12 HOURS IVP 10/12/16 15:00 10/19/16 14:59 10/13/16 08:56 Dextrose (Dextrose 50%) STAT PRN IV Hypoglycemia 10/11/16 17:00 11/10/16 16:59 Ertapenem/Sodium Chloride (INVanz/Sodium Chloride) 55 ml @ 110 mls/hr Q24H IV 10/12/16 16:00 10/17/16 15:59 10/12/16 17:00 Heparin Sodium (Porcine) (Heparin 5000 units/ml) 5,000 units EVERY 12 HOURS SUBQ 10/11/16 21:00 11/10/16 20:59 10/13/16 08:59 Levetiracetam (Keppra) 1,500 mg Q12HR GT 10/11/16 21:00 11/10/16 20:59 10/13/16 08:57 Levothyroxine Sodium (Synthroid) 25 mcg ACBREAKFAST GT 10/12/16 06:30 11/11/16 06:29 10/13/16 06:15 Lorazepam (Ativan 2mg/ml 1ml) 2 mg Q2H PRN IV For Anxiety 10/11/16 17:00 10/18/16 16:59 Morphine Sulfate (Morphine Sulfate) 4 mg Q4H PRN IVP Severe Pain (Pain Scale 7-10) 10/11/16 17:00 10/18/16 16:59 Ondansetron HCl (Zofran) 4 mg Q6H PRN IVP Nausea & Vomiting 10/11/16 17:00 11/10/16 16:59 Pantoprazole (Protonix) 40 mg DAILY IVP 10/12/16 09:00 11/11/16 08:59 10/13/16 08:56 Phenytoin (Dilantin) 150 mg Q12HR GT 10/11/16 21:00 11/10/16 20:59 10/13/16 08:56 Polyethylene Glycol 17 gm 17 gm DAILYPRN PRN ORAL Constipation 10/11/16 19:00 11/10/16 18:59 TREE BARRIENTOS Oct 13, 2016 16:09
[2016-10-13] MEDS: Ertapenem 1gm ivpb (q24h) IV SCH ×2 (16:55)
[2016-10-13] MEDS ORDERED: Tigecycline 100 MG in D5W 110 ML IVPB ONE (18:00)
[2016-10-13 20:00] VITALS: BP 109/50
[2016-10-13] MEDS: Meropenem 1gm/NS 110ml IVPB SCH ×2 (21:40)
[2016-10-13] MEDS ORDERED: Meropenem 500 MG in NS 55 ML IVPB SCH (22:00)
[2016-10-14] VITALS: BP 109/53
[2016-10-14 04:00] VITALS: BP 123/66
[2016-10-14] MEDS ORDERED: Tigecycline 50 MG in D5W 110 ML IVPB SCH (06:00)
[2016-10-14] MEDS: Levothyroxine 25mcg tab GT SCH (06:19)
[2016-10-14 06:48] LABS: ANION GAP 20 (5-15); CALCIUM 9.6 mg/dL (8.6-10.2); CARBON DIOXIDE 25 mEQ/L (20-30); CHLORIDE 98 mEQ/L (98-107); CREATININE 0.4 mg/dL (0.5-0.9); HEMOLYSIS 3; POTASSIUM 3.3 mEQ/L (3.4-4.9); SODIUM 143 mEQ/L (135-145)
[2016-10-14 08:00] VITALS: BP 103/62
[2016-10-14] MEDS ORDERED: KCl 10% 40mEq/30ml liquid GT ONE (08:00)
[2016-10-14] MEDS: Meropenem 1gm/NS 110ml IVPB SCH ×2 (09:47)
[2016-10-14] MEDS: Phenytoin Susp 100mg/4ml GT SCH (09:48)
[2016-10-14] MEDS: levETIRAcetam 500mg/5ml Liquid GT SCH (09:48)
[2016-10-14] MEDS: Pantoprazole Inj IVP SCH (09:49)
[2016-10-14] MEDS: Heparin 5000 units/ml inj SUBQ SCH (09:50)
[2016-10-14 12:00] VITALS: BP 100/54
[2016-10-14] MEDS ORDERED: INVANZ1 G1 IM (12:50)
[2016-10-14] MEDS ORDERED: TYGACIL50 MG IVPB (12:50)
--- NOTE | 2016-10-14 12:58 | Pulmonology Progress Note ---
Assessment/Plan Problems: (1) Septic shock (2) Bacteremia (3) Aspiration pneumonia (4) Chronic respiratory failure (5) Feeding by G-tube (6) Vegetative state Assessment/Plan abx as per ID multi resistant organism, very difficult to treat. tolerating feeding. ok to go to Subacute with IV antibiotics. Subjective ROS Limited/Unobtainable: No Constitutional: Reports: no symptoms HEENT: Repors: no symptoms Cardiovascular: Reports: no symptoms Allergies: Coded Allergies: PEANUT (Verified Allergy, Unknown, 09/22/16) Objective Last 24 Hour Vital Signs Date Time Temp Pulse Resp B/P Pulse Ox O2 Delivery O2 Flow Rate FiO2 10/14/16 12:00 105 10/14/16 11:53 40 10/14/16 08:56 101 18 40 10/14/16 08:00 100 10/14/16 08:00 97.9 100 19 103/62 96 Mechanical Ventilator 40 10/14/16 08:00 40 10/14/16 06:56 96 18 40 10/14/16 05:23 98 18 40 10/14/16 04:00 98.1 95 23 123/66 100 Mechanical Ventilator 40 10/14/16 04:00 40 10/14/16 04:00 96 10/14/16 03:21 95 23 40 10/14/16 01:31 90 18 40 10/14/16 00:00 98.4 89 18 109/53 100 Mechanical Ventilator 40 10/14/16 00:00 40 10/13/16 23:32 89 10/13/16 23:19 89 18 40 10/13/16 21:17 86 18 40 10/13/16 20:00 40 10/13/16 20:00 99.0 97 15 109/50 100 Mechanical Ventilator 40 10/13/16 19:26 95 10/13/16 19:22 102 18 40 10/13/16 16:40 101 20 40 10/13/16 16:20 100 10/13/16 16:00 98.1 103 20 103/57 100 Mechanical Ventilator 40 10/13/16 16:00 40 10/13/16 14:40 85 20 40 10/13/16 13:10 93 20 40 Intake and Output 10/13/16 10/14/16 19:00 07:00 Intake Total 575 ml 1020 ml Output Total 450 ml 1250 ml Balance 125 ml -230 ml Intake Free Water 100 ml 100 ml IV Total 55 ml 440 ml Tube Feeding 420 ml 420 ml Other 60 ml Output Urine Total 450 ml 1250 ml # Bowel Movements 1 General Appearance: WD/WN HEENT: normocephalic, anicteric Respiratory/Chest: chest wall non-tender, lungs clear Cardiovascular: normal peripheral pulses, normal rate Abdomen: normal bowel sounds, soft, non tender Genitourinary: normal external genitalia Extremities: no cyanosis Skin: no rash 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, abnormal gait Lymphatic: no neck adenopathy, no groin adenopathy Laboratory Tests 10/14/16 05:15: Sodium Level 143, Potassium Level 3.3L, Chloride Level 98, Carbon Dioxide Level 25, Anion Gap 20H, Blood Urea Nitrogen 7, Creatinine 0.4L, Estimat Glomerular Filtration Rate , Glucose Level 81, Calcium Level 9.6 Current Medications Medications (Trade) Dose Ordered Sig/Boubacar Route PRN Reason Start Time Stop Time Status Last Admin Dose Admin Acetaminophen (Tylenol) 650 mg Q4H PRN GT T>100.5 10/11/16 17:00 11/10/16 16:59 Albuterol/ Ipratropium (DuoNeb 0.5-3(2.5)mg/3ml) 3 ml Q4H PRN HHN Shortness of Breath 10/11/16 17:00 10/16/16 16:59 Dextrose (Dextrose 50%) STAT PRN IV Hypoglycemia 10/11/16 17:00 11/10/16 16:59 Ertapenem 1 gm/ Sodium Chloride 55 ml @ 110 mls/hr Q24H IV 10/12/16 16:00 10/14/16 18:00 10/13/16 16:55 Ertapenem/Sodium Chloride (INVanz/Sodium Chloride) 110 ml @ 220 mls/hr Q24H IV 10/15/16 16:00 10/20/16 15:59 Heparin Sodium (Porcine) (Heparin 5000 units/ml) 5,000 units EVERY 12 HOURS SUBQ 10/11/16 21:00 11/10/16 20:59 10/14/16 09:50 Levetiracetam (Keppra) 1,500 mg Q12HR GT 10/11/16 21:00 11/10/16 20:59 10/14/16 09:48 Levothyroxine Sodium (Synthroid) 25 mcg ACBREAKFAST GT 10/12/16 06:30 11/11/16 06:29 10/14/16 06:19 Lorazepam (Ativan 2mg/ml 1ml) 2 mg Q2H PRN IV For Anxiety 10/11/16 17:00 10/18/16 16:59 Meropenem 1 gm/ Sodium Chloride 110 ml @ 220 mls/hr Q12HR IVPB 10/13/16 21:00 10/18/16 20:59 10/14/16 09:47 Morphine Sulfate (Morphine Sulfate) 4 mg Q4H PRN IVP Severe Pain (Pain Scale 7-10) 10/11/16 17:00 10/18/16 16:59 Ondansetron HCl (Zofran) 4 mg Q6H PRN IVP Nausea & Vomiting 10/11/16 17:00 11/10/16 16:59 Pantoprazole (Protonix) 40 mg DAILY IVP 10/12/16 09:00 11/11/16 08:59 10/14/16 09:49 Phenytoin (Dilantin) 150 mg Q12HR GT 10/11/16 21:00 11/10/16 20:59 10/14/16 09:48 Polyethylene Glycol 17 gm 17 gm DAILYPRN PRN ORAL Constipation 10/11/16 19:00 11/10/16 18:59 Tigecycline 50 mg/ Dextrose 110 ml @ 220 mls/hr Q12HR@0600,1800 IVPB 10/14/16 06:00 10/21/16 05:59 10/14/16 05:39 ANGELA DAVILA Oct 14, 2016 12:58
[2016-10-14] MEDS ORDERED: MEROPENEM1 GM IV (13:02)
[2016-10-14] MEDS ORDERED: Tubing IV Secondary IV ONE (13:19)
[2016-10-14] MEDS ORDERED: NS 275ml ONE (13:19)
--- NOTE | 2016-10-14 14:13 | Infectious Diseases Prog Note ---
Assessment/Plan Assessment/Plan ASSESSMENT: 76 y/o female with: // KPC-K.pneumoniae bacteremia 12/06 ?urinary vs biliary source vs CLABSI - repeat BCx NGTD - old left PICC removed, tip not sent for culture // qR-PSA UTI, recent qR-E.coli // Elevated LFTs r/o hepatobiliary disease - hepatitis panel negative, US pending // Recent possible aspiration PNA / pneumonitis - SCx A.lwoffi, PSA SP Rx, no evidence of recurrence. SCx 1+ P.mirabilis, PSA=colonizers - CXR 10/12: Lungs and pleural spaces are clear // Negative C.difficile // Sepsis SP // Leukocytosis - resolved // Fever - resolved // New right PICC 10/10 ( placed while bacteremic ) // Chronic anoxic encephalopathy // Chronic VDRF SP trach, PEG // Seizure disorder // h/o breast CA // Morbid obesity // MRSA, VRE colonized // No ABX allergies // Full Code PLAN: - continue invanz ( suicide substrate ), meropenem, tygacil d# 2 / . ( 10/13 SP colistin d# 2 ) ( 10/12 SP IV vanco, zosyn d# 3 ) ( 09/27 SP IV zosyn d# 6 / 7 ) ( 09/26 SP IV Vanco d # 6 ) ( 09/23 SP amikacin d# 3 ) - f/u cultures - f/u abdo US - monitor CBC, temperatures - monitor BMP - monitor CXR - vent support, trach care, aspiration precautions - seizure precautions d/w Dr. Rodriguez Subjective Allergies: Coded Allergies: PEANUT (Verified Allergy, Unknown, 09/22/16) Subjective nonverbal fevers, leukocytosis resolved repeat BCx NGTD possible DC Objective Vital Signs Last 24 Hour Vital Signs Date Time Temp Pulse Resp B/P Pulse Ox O2 Delivery O2 Flow Rate FiO2 10/14/16 12:00 99.5 105 19 100/54 96 Mechanical Ventilator 40 10/14/16 12:00 105 10/14/16 11:53 40 10/14/16 10:32 101 16 40 10/14/16 08:56 101 18 40 10/14/16 08:00 100 10/14/16 08:00 97.9 100 19 103/62 96 Mechanical Ventilator 40 10/14/16 08:00 40 10/14/16 06:56 96 18 40 10/14/16 05:23 98 18 40 10/14/16 04:00 98.1 95 23 123/66 100 Mechanical Ventilator 40 10/14/16 04:00 40 10/14/16 04:00 96 10/14/16 03:21 95 23 40 10/14/16 01:31 90 18 40 10/14/16 00:00 98.4 89 18 109/53 100 Mechanical Ventilator 40 10/14/16 00:00 40 10/13/16 23:32 89 10/13/16 23:19 89 18 40 10/13/16 21:17 86 18 40 10/13/16 20:00 40 10/13/16 20:00 99.0 97 15 109/50 100 Mechanical Ventilator 40 10/13/16 19:26 95 10/13/16 19:22 102 18 40 10/13/16 16:40 101 20 40 10/13/16 16:20 100 10/13/16 16:00 98.1 103 20 103/57 100 Mechanical Ventilator 40 10/13/16 16:00 40 10/13/16 14:40 85 20 40 Height (Feet): 5 Height (Inches): 4.00 Weight (Pounds): 260 General Appearance: no acute distress Respiratory/Chest: decreased breath sounds Cardiovascular: normal rate, regular rhythm Abdomen: normal bowel sounds, soft, non tender, non distended Laboratory Tests Test 10/14/16 05:15 Sodium Level 143 mEQ/L (135-145) Potassium Level 3.3 mEQ/L (3.4-4.9) L Chloride Level 98 mEQ/L (98-107) Carbon Dioxide Level 25 mEQ/L (20-30) Anion Gap 20 (5-15) H Blood Urea Nitrogen 7 mg/dL (7-23) Creatinine 0.4 mg/dL (0.5-0.9) L Estimat Glomerular Filtration Rate mL/min (>60) Glucose Level 81 mg/dL (74-106) Calcium Level 9.6 mg/dL (8.6-10.2) Current Medications Medications (Trade) Dose Ordered Sig/Boubacar Route PRN Reason Start Time Stop Time Status Last Admin Dose Admin Acetaminophen (Tylenol) 650 mg Q4H PRN GT T>100.5 10/11/16 17:00 11/10/16 16:59 Albuterol/ Ipratropium (DuoNeb 0.5-3(2.5)mg/3ml) 3 ml Q4H PRN HHN Shortness of Breath 10/11/16 17:00 10/16/16 16:59 Dextrose (Dextrose 50%) STAT PRN IV Hypoglycemia 10/11/16 17:00 11/10/16 16:59 Ertapenem 1 gm/ Sodium Chloride 55 ml @ 110 mls/hr Q24H IV 10/12/16 16:00 10/14/16 18:00 10/13/16 16:55 Ertapenem/Sodium Chloride (INVanz/Sodium Chloride) 110 ml @ 220 mls/hr Q24H IV 10/15/16 16:00 10/20/16 15:59 Heparin Sodium (Porcine) (Heparin 5000 units/ml) 5,000 units EVERY 12 HOURS SUBQ 10/11/16 21:00 11/10/16 20:59 10/14/16 09:50 Levetiracetam (Keppra) 1,500 mg Q12HR GT 10/11/16 21:00 11/10/16 20:59 10/14/16 09:48 Levothyroxine Sodium (Synthroid) 25 mcg ACBREAKFAST GT 10/12/16 06:30 11/11/16 06:29 10/14/16 06:19 Lorazepam (Ativan 2mg/ml 1ml) 2 mg Q2H PRN IV For Anxiety 10/11/16 17:00 10/18/16 16:59 Meropenem 1 gm/ Sodium Chloride 110 ml @ 220 mls/hr Q12HR IVPB 10/13/16 21:00 10/18/16 20:59 10/14/16 09:47 Morphine Sulfate (Morphine Sulfate) 4 mg Q4H PRN IVP Severe Pain (Pain Scale 7-10) 10/11/16 17:00 10/18/16 16:59 Ondansetron HCl (Zofran) 4 mg Q6H PRN IVP Nausea & Vomiting 10/11/16 17:00 11/10/16 16:59 Pantoprazole (Protonix) 40 mg DAILY IVP 10/12/16 09:00 11/11/16 08:59 10/14/16 09:49 Phenytoin (Dilantin) 150 mg Q12HR GT 10/11/16 21:00 11/10/16 20:59 10/14/16 09:48 Polyethylene Glycol 17 gm 17 gm DAILYPRN PRN ORAL Constipation 10/11/16 19:00 11/10/16 18:59 Tigecycline 50 mg/ Dextrose 110 ml @ 220 mls/hr Q12HR@0600,1800 IVPB 10/14/16 06:00 10/21/16 05:59 10/14/16 05:39 TREE BARRIENTOS Oct 14, 2016 14:13
[2016-10-15] MEDS ORDERED: Ertapenem 1 GM in NS 110 ML IV SCH (16:00)
--- NOTE | 2016-10-17 09:55 | Discharge Summary ---
Discharge Summary Hospital Course Date of Admission Oct 09, 2016 at 19:18 Date of Discharge Oct 14, 2016 at 13:20 Admitting Diagnosis severe sepsis, vent dependent HPI Kate Donovan is a 76 year old female who was admitted on Oct 09, 2016 at 19: 18 for Severe Sepsis Hospital Course dc summary dictated # [id number] Discharge Medications New Medications: Ertapenem (Invanz) 1 Gm Vial 1 GM IM DAILY for 14 Days, VIAL Meropenem (Meropenem) 1 Gm Vial 1 GM IV EVERY 2 HOURS for 14 Days, VIAL Tigecycline (Tygacil) 50 Mg Vial 50 MG IVPB EVERY 12 HOURS for 14 Days, VIAL Continued Medications: Acetaminophen (Acetaminophen) 650 Mg/20.3 Ml Solution 650 MG GT Q6H PRN for Prn Headache/Temp > 101, ML 0 Refills Docusate Sodium* (Colace*) 100 Mg Capsule 100 MG GT TWICE A DAY, CAP Ferrous Sulfate (Iron) 325 Mg Capsule.er 325 MG GT, CAP Hydrocodone Bit/Acetaminophen 5-325* ([place] 5-325 Tablet*) 1 Each Tablet 1 TAB GT Q4H PRN for For Pain, TAB Letrozole (Femara) 2.5 Mg Tablet 2.5 MG ORAL DAILY, #10 TAB 0 Refills Levetiracetam* (Levetiracetam*) 500 Mg Tablet 1500 MG GT TWICE A DAY, #60 TAB 0 Refills Levothyroxine Sodium* (Levothyroxine Sodium*) 25 Mcg Tablet 25 MCG GT DAILY, TAB Take in the morning on an empty stomach, at least 30 minutes before food. Nitroglycerin (Nitrostat) 0.4 Mg Tab.subl 0.4 MG SL, TAB Phenytoin (Dilantin) 50 Mg Tab.chew 150 MG GT BID, #90 TAB 0 Refills Vitamin D (Vitamin D3) 400 Unit Tablet 2000 UNITS GT DAILY, TAB Discharge Condition Upon Discharge: improving Discharge Disposition Patient was discharged to SNF/Subacute Facility(03) Discharge Diagnoses: Discharge Instructions Discharge Instructions Special Instructions I have been assigned to complete a D/C Summary on this account. I was not involved in the patient management Libby Collins NP ([place]) Oct 17, 2016 09:55
--- NOTE | 2016-10-18 03:39 | Discharge Summary 2 SIG ---
DATE OF ADMISSION: 10/09/2016 DATE OF DISCHARGE: 10/14/2016 REASON FOR ADMISSION: 76-year-old female with a history of ventilator-dependent respiratory failure, tracheostomy; dysphagia, G-tube; and seizure disorder was sent by ambulance from residential facility with a chief [facility]. In emergency department, she was tachycardic and hypotensive , laboratory work revealed leukocytosis and elevated lactic acid. EKG revealed sinus tachycardia with heart rate of 132. No ischemic changes. Chest x-ray revealed no acute cardiopulmonary disease. WBC is 16 and hemoglobin and hematocrit at baseline 9.7 and 30.4. Urinalysis with evidence of possible urinary tract infection. ABG was stable on current settings. Septic workup initiated, Fluid resuscitation started . The patient admitted to ICU for further management. ADMITTING DIAGNOSES: 1. Sepsis. 2. Hypertension. 3. Ventilator-dependent respiratory failure, tracheostomy. 4. Dysphagia, G-tube. 5. Urinary tract infection. 6. Decubitus ulcer. 7. Seizure disorder. HOSPITAL COURSE: The patient initially admitted to ICU. The patient initially required pressors. The patient was on Levophed, which she gradually tapered off and discontinued. Septic workup initiated. The patient started on empiric antibiotics. ID consulted. Blood culture revealed Klebsiella pneumoniae, carbapenem-resistant. Urine culture grew Pseudomonas aeruginosa. Sputum culture grew Proteus and Pseudomonas aeruginosa. Stool for C. difficile was negative. Repeated blood culture were negative. Per ID, the bacteremia of unknown source: urinary versus biliary versus CLABSI; however, repeated blood culture on 10/11/2016 were negative. Leukocytosis resolved. Afebrile. Wound care nurse seen the patient for the sacral decubitus stage III, present on admission. Recommended local wound care. Wound care continued as per wound care nurse recommendation. Potassium replaced few times while in the hospital and stable prior to discharge. Magnesium level within normal limits prior to discharge. Seizure precautions maintained. No seizure activity while in the hospital. Dilantin continued. Strict aspiration precautions maintained. The patient was able to tolerate G-tube feeding. Ventilator and tracheostomy care provided. ABG stable on current settings, keep settings as is and titrate as needed. Noted elevated LFT, which resolved likely secondary to shocked liver. Hepatitis panel was negative. Venous duplex of bilateral lower extremities was negative. Hemoglobin and hematocrit stable, at baseline, no trend down. Anemia workup done on previous admission, anemia likely due to chronic disease. No need for transfusion. The patient was stable for discharge to residential facility on IV antibiotic as recommended by ID. DISCHARGE DIAGNOSES: 1. Septic shock, resolved. 2. Sepsis with bacteremia (Klebsiella pneumoniae, carbapenem-resistant). 3. Urinary tract infection (Pseudomonas aeruginosa). 4. Aspiration pneumonia. 5. Ventilator-dependent respiratory failure/tracheostomy. 6. Dysphagia, G-tube. 7. Hypokalemia. 8. Seizure disorder. 9. Chronic anoxic encephalopathy. 10.Elevated LFT, resolved. 11. Chronic sacral decubitus stage III, present on admission. 12. History of breast cancer. 13. Morbid obesity. 14. Anemia of chronic disease. DISCHARGE MEDICATIONS: See medication reconciliation list. DISCHARGE INSTRUCTIONS: The patient discharged to residential facility. IV antibiotic as outlined in medication reconciliation list. Follow up with the primary medical doctor and counter tender at the facility. Savi Rodriguez M.D. I have been assigned to dictate discharge summary on this account and I was not involved in the patient's management. Libby Marreropatty N.PCarlo DR: ENOC JOB#: [id number] CC: ROMINA
--- NOTE | 2016-10-30 10:11 | Diagnostic Imaging Report ---
Indication:Abdominal pain Technique: Grayscale and duplex Doppler imaging of the abdomen performed. Comparison: None Findings: Liver is enlarged measuring 23 cm. The spleen is borderline enlarged measuring close to 13 cm. There is a left renal cyst measuring 3 cm. There is no hydronephrosis. Pancreas is unremarkable. Main portal vein is patent by Doppler examination. There is no ascites. Gallstones are present. The gallbladder appears contracted. Aorta is normal in caliber. Wall calcification noted within the aorta. Impression: Hepatomegaly. Borderline splenomegaly. Atherosclerotic vascular disease Gallstones
== END 2016-10-14 13:20 | DRG 870 ==
LOC: EDBD 15:15 → EMR 15:41 → EDBEDREQ 18:47 → ICU 19:18 → 2W 10-11 16:06
PROC: 5A1955Z Respiratory Ventilation, Greater than 96 Consecutive Hours (ICD-10-PCS; principal; 2016-10-09)
PROC: 05HM33Z Insertion of Infusion Device into Right Internal Jugular Vein, Percutaneous Approach (ICD-10-PCS; 2016-10-10)
DX: A41.59 Other Gram-negative sepsis (principal); J69.0 Pneumonitis due to inhalation of food and vomit; K72.00 Acute and subacute hepatic failure without coma; R65.21 Severe sepsis with septic shock; R40.3 Persistent vegetative state; G93.1 Anoxic brain damage, not elsewhere classified; J96.10 Chronic respiratory failure, unspecified whether with hypoxia or hypercapnia; L89.153 Pressure ulcer of sacral region, stage 3; Z99.11 Dependence on respirator [ventilator] status; Z43.1 Encounter for attention to gastrostomy; N39.0 Urinary tract infection, site not specified; Z68.41 Body mass index [BMI] 40.0-44.9, adult; G40.909 Epilepsy, unspecified, not intractable, without status epilepticus; Z85.3 Personal history of malignant neoplasm of breast; E66.01 Morbid (severe) obesity due to excess calories; Z43.0 Encounter for attention to tracheostomy; I10 Essential (primary) hypertension; Z16.39 Resistance to other specified antimicrobial drug; B96.5 Pseudomonas (aeruginosa) (mallei) (pseudomallei) as the cause of diseases classified elsewhere; E87.6 Hypokalemia; D63.8 Anemia in other chronic diseases classified elsewhere
CPT/HCPCS: 36415; 36569; 36600; 71010; 76700; 76937; 80048; 80053; 80069; 80185; 80202; 81003; 82550; 82553; 82803; 83605; 83735; 83880; 84100; 84132; 84484; 85007; 85025; 86705; 86709; 86803; 87040; 87070; 87086; 87181; 87205; 87340; 87493; 93005; 93970; 94002; 94003; 94664

== ENCOUNTER 2016-12-04 16:10 | Inpatient (IN) | payer OTHER ==
[~2016-12-04] VITALS: Ht 162.6 cm; Wt 112.0 kg
[~2016-12-04 16:10] MED LIST changes: +COLACE100 MG GT; +INVANZ1 G1 IM; +MEROPENEM1 GM IV; +TYGACIL50 MG IVPB
[2016-12-04] MEDS ORDERED: Ampicillin/Sulbactam Sod 3 GM in NS 110 ML IV SCH (16:15)
[2016-12-04] MEDS ORDERED: metroNIDAZOLE 500mg 100 ML IV SCH (16:15)
[2016-12-04 16:20] VITALS: BP 134/60
[2016-12-04] MEDS ORDERED: Unasyn 3gm Inj ONE ×2 (17:01→23:00)
[2016-12-04 17:19] LABS: MEAN CORPUSCULAR HEMOGLOBIN 29.7 PG (27.0-31.0); MEAN CORPUSCULAR VOLUME 93 FL (80-99); MEAN PLATELET VOLUME 9.5 FL (6.5-10.1); PLATELET COUNT 237 K/UL (150-450); RED BLOOD COUNT 3.65 M/UL (4.20-5.40); RED CELL DISTRIBUTION WIDTH 17.9 % (11.6-14.8)
[2016-12-04 17:25] LABS: ALANINE AMINOTRANSFERASE 72 U/L (3-33); ALBUMIN/GLOBULIN RATIO 0.7 (1.0-2.7); ANION GAP 15 (5-15); ASPARTATE AMINO TRANSFERASE 106 U/L (5-40); CALCIUM 10.1 mg/dL (8.6-10.2); CARBON DIOXIDE 29 mEQ/L (20-30); CHLORIDE 91 mEQ/L (98-107); CREATININE 0.5 mg/dL (0.5-0.9); HEMOLYSIS 0; POTASSIUM 4.5 mEQ/L (3.4-4.9); SODIUM 135 mEQ/L (135-145); TOTAL PROTEIN 8.2 g/dL (6.6-8.7)
[2016-12-04 17:26] LABS: TROPONIN I < 0.30 ng/mL (<=0.30)
[2016-12-04 17:30] LABS: WHITE BLOOD COUNT 25.5 K/UL (4.8-10.8)
[2016-12-04 18:04] LABS: CKMB < 1.5 ng/mL (< 3.8)
[2016-12-04 18:11] VITALS: BP 124/61
[2016-12-04 18:17] LABS: APPEARANCE,URINE SLIGHTLY CLOUDY; KETONES,URINE NEGATIVE (NEGATIVE); LEUKOCYTE ESTERASE ,URINE 2+ (NEGATIVE); NITRITE,URINE NEGATIVE (NEGATIVE); PH,URINE 7 (4.5-8.0); PROTEIN,URINE 2+ (NEGATIVE); UROBILINOGEN,URINE NORMAL MG/DL (0.0-1.0)
[2016-12-04 18:32] LABS: BACTERIA,URINE MODERATE /HPF; ICTOTEST NEG; RBC,URINE 0 /HPF (0 - 2); SQUAMOUS EPITHELIAL CELL,UR MANY /LPF (NONE/OCC)
[2016-12-04 18:37] LABS: ANISOCYTOSIS 2+; BAND NEUTROPHILS % (MANUAL) 2 % (0-8); LYMPHOCYTES % (MANUAL) 7 % (20-45); NEUTROPHILS % (MANUAL) 89 % (45-75); TOTAL CELLS COUNTED 100
[2016-12-04 18:38] LABS: BASOPHILS % (MANUAL) 0 % (0-2); EOSINOPHILS % (MANUAL) 0 % (0-3); PLATELET ESTIMATE ADEQUATE; PLATELET MORPHOLOGY NORMAL
[2016-12-04 19:42] VITALS: BP 123/56
[2016-12-04] MEDS ORDERED: DIPROLENE OI1 APPLIC TOPIC (20:22)
[2016-12-04] MEDS ORDERED: CALCIPOTRIENE60 G1 TP (20:22)
[2016-12-04] MEDS ORDERED: MAG-OXIDE400 M1 GT (20:28)
[2016-12-04] MEDS ORDERED: ATIVAN1 MG GT (20:28)
[2016-12-04] MEDS ORDERED: MOM30 ML ORAL (20:28)
[2016-12-04] MEDS ORDERED: Acetaminophen 650 MG SUPP RECTAL ONE (20:45)
[2016-12-04] MEDS ORDERED: DuoNeb 0.5-3(2.5)mg/3ml neb HHN PRN (21:00)
[2016-12-04] MEDS ORDERED: Morphine Sulfate 4mg/ml Inj IVP PRN (21:00)
[2016-12-04] MEDS ORDERED: Miralax 17gm pkt ORAL PRN (21:00)
[2016-12-04] MEDS ORDERED: LORazepam Inj 2mg/ml 1ml IV PRN (21:00)
[2016-12-04] MEDS ORDERED: Cefepime 2gm ONE (21:09)
[2016-12-04] MEDS: Heparin 5000 units/ml inj SUBQ SCH (21:17)
[2016-12-04] MEDS: Cefepime HCl 2 GM in D5W 110 ML IV SCH (21:18)
[2016-12-04 21:45] VITALS: BP 103/58
--- NOTE | 2016-12-04 22:47 | Emergency Room Report ---
History of Present Illness General Chief Complaint: Fever Source: Patient, Medical Record, EMS Present Illness HPI Patient is a 76-year-old female brought in by ambulance after increased fever and had difficulty breathing. Patient had gradual onset of symptoms. Patient was noted to be taken vent dependent. Patient noted have fever up to 102. Patient had been noted to have prior history of epilepsy she is noted to have no change in level consciousness. The patient had some prior history of a diverticulosis. She also had a history of acute cholecystitis.History is limited by patient's mental status history is primarily from old record. Allergies: Coded Allergies: PEANUT (Verified Allergy, Unknown, 09/22/16) Patient History Now: No Reviewed Nursing Documentation: PMH: Agreed, PSxH: Agreed Nursing Documentation-PMH Past Medical History: No History, Except For Hx Cardiac Problems: Yes - chronic resp. failure, hypothroidism, anemia, cerebral infarction Hx Hypertension: Yes Hx COPD: Yes Hx Cancer: Yes - breast cancer Hx Gastrointestinal Problems: Yes - g tube Hx Neurological Problems: Yes Hx Cerebrovascular Accident: Yes Hx Seizures: Yes Hx Peripheral Neuropathy: Yes Hx Concentration Difficulty: Yes Hx Speech Problem: Yes Hx Dysphasia: Yes Review of Systems All Other Systems: limited - by mental status Physical Exam Vital Signs Date Time Temp Pulse Resp B/P Pulse Ox O2 Delivery O2 Flow Rate FiO2 12/04/16 16:00 69 24 Mechanical Ventilator 100 12/04/16 16:10 101.5 134/60 94 General Appearance: moderate distress, obese Eyes: bilateral eye PERRL ENT: dry mucus membranes, other Neck: limited range of motion, other, tracheotomy Respiratory: rales, rhonchi Cardiovascular #1: normal peripheral pulses, regular rate, rhythm, edema Gastrointestinal: soft, other - right flank drain Genitourinary: normal inspection Musculoskeletal: back normal, swelling, other - contractures Neurologic: motor strength/tone normal, other - poor alertness Skin: normal inspection Procedures Critical Care Time Critical Care Time Patient had a critical medical condition which untreated could potentially result in life or limb threatening injury. Total critical care time excluding procedures approximately 45 minutes. Medical Decision Making Diagnostic Impression: Primary Impression: Anoxic brain damage syndrome Additional Impressions: Seizure disorder Severe sepsis UTI (urinary tract infection) ER Course Patient presented for fever. A biliary sepsis, urosepsis, pneumonia, chart fever, pulmonary embolism, septic shock among others.Because of complexity of patient's case laboratory testing and imaging studies were ordered. Have patient started on mechanical ventilator. Patient was given IV fluids as well as IV antibiotics. Patient did have some evidence of urinary tract infection. The patient was given Tylenol for fever. Dr. pickens was contacted for inpatient management. Labs Test 12/04/16 16:45 12/04/16 18:05 White Blood Count 25.5 K/UL (4.8-10.8) Red Blood Count 3.65 M/UL (4.20-5.40) Hemoglobin 10.8 G/DL (12.0-16.0) Hematocrit 33.9 % (37.0-47.0) Mean Corpuscular Volume 93 FL (80-99) Mean Corpuscular Hemoglobin 29.7 PG (27.0-31.0) Mean Corpuscular Hemoglobin Concent 32.0 G/DL (32.0-36.0) Red Cell Distribution Width 17.9 % (11.6-14.8) Platelet Count 237 K/UL (150-450) Mean Platelet Volume 9.5 FL (6.5-10.1) Neutrophils (%) (Auto) % (45.0-75.0) Lymphocytes (%) (Auto) % (20.0-45.0) Monocytes (%) (Auto) % (1.0-10.0) Eosinophils (%) (Auto) % (0.0-3.0) Basophils (%) (Auto) % (0.0-2.0) Differential Total Cells Counted 100 Neutrophils % (Manual) 89 % (45-75) Lymphocytes % (Manual) 7 % (20-45) Monocytes % (Manual) 2 % (1-10) Eosinophils % (Manual) 0 % (0-3) Basophils % (Manual) 0 % (0-2) Band Neutrophils 2 % (0-8) Platelet Estimate Adequate Platelet Morphology Normal Anisocytosis 2+ Sodium Level 135 mEQ/L (135-145) Potassium Level 4.5 mEQ/L (3.4-4.9) Chloride Level 91 mEQ/L (98-107) Carbon Dioxide Level 29 mEQ/L (20-30) Anion Gap 15 (5-15) Blood Urea Nitrogen 11 mg/dL (7-23) Creatinine 0.5 mg/dL (0.5-0.9) Estimat Glomerular Filtration Rate mL/min (>60) Glucose Level 130 mg/dL (74-106) Lactic Acid Level 1.80 mmol/L (0.66-2.22) Calcium Level 10.1 mg/dL (8.6-10.2) Total Bilirubin 0.9 mg/dL (0.0-1.2) Aspartate Amino Transf (AST/SGOT) 106 U/L (5-40) Alanine Aminotransferase (ALT/SGPT) 72 U/L (3-33) Alkaline Phosphatase 331 U/L (35-104) Total Creatine Kinase 27 U/L (26-140) Creatine Kinase MB < 1.5 ng/mL (< 3.8) Creatine Kinase MB Relative Index Troponin I < 0.30 ng/mL (<=0.30) Total Protein 8.2 g/dL (6.6-8.7) Albumin 3.6 g/dL (3.5-5.2) Globulin 4.6 g/dL Albumin/Globulin Ratio 0.7 (1.0-2.7) Urine Color [place] Urine Appearance Slightly cloudy Urine pH 7 (4.5-8.0) Urine Specific [place] 1.010 (1.005-1.035) Urine Protein 2+ (NEGATIVE) Urine Glucose (UA) Negative (NEGATIVE) Urine Ketones Negative (NEGATIVE) Urine Occult Blood Negative (NEGATIVE) Urine Nitrite Negative (NEGATIVE) Urine Bilirubin Negative (NEGATIVE) Urine Ictotest Neg Urine Urobilinogen Normal MG/DL (0.0-1.0) Urine Leukocyte Esterase 2+ (NEGATIVE) Urine RBC 0 /HPF (0 - 2) Urine WBC 10-15 /HPF (0 - 2) Urine Squamous Epithelial Cells Many /LPF (NONE/OCC) Urine Bacteria Moderate /HPF (NONE) EKG Diagnostic Results Rate: tachycardiac Rhythm: NSR ST Segments: other - right bundle branch block Rhythm Strip Diag. Results EP Interpretation: yes Rhythm: NSR, no PVC's, no ectopy Last Vital Signs Date Time Temp Pulse Resp B/P Pulse Ox O2 Delivery O2 Flow Rate FiO2 12/04/16 21:45 100.0 102 20 103/58 100 Mechanical Ventilator 70 Kenton Toribio Dec 04, 2016 22:47
[2016-12-04] MEDS ORDERED: Vancomycin 1.5 GM/D5W 325 ML IVPB ONE ×2 (23:00)
[2016-12-04] MEDS ORDERED: Vancomycin 1 GM in D5W 275 ML IV SCH (23:00)
[2016-12-04] MEDS ORDERED: Vancomycin 1gm inj IVPB ONE (23:34)
[2016-12-05] VITALS (24 sets, daily range): BP systolic 85–118; BP diastolic 36–83
[2016-12-05 03:49] LABS: MEAN CORPUSCULAR HEMOGLOBIN 29.2 PG (27.0-31.0); MEAN CORPUSCULAR HGB CONC 31.1 G/DL (32.0-36.0); MEAN CORPUSCULAR VOLUME 94 FL (80-99); MEAN PLATELET VOLUME 12.1 FL (6.5-10.1); PLATELET COUNT 120 K/UL (150-450); RED CELL DISTRIBUTION WIDTH 17.8 % (11.6-14.8); WHITE BLOOD COUNT 18.3 K/UL (4.8-10.8)
[2016-12-05 04:18] LABS: ANION GAP 13 (5-15); CALCIUM 9.7 mg/dL (8.6-10.2); CARBON DIOXIDE 28 mEQ/L (20-30); CHLORIDE 94 mEQ/L (98-107); CREATININE 0.4 mg/dL (0.5-0.9); HEMOLYSIS 42; POTASSIUM 4.1 mEQ/L (3.4-4.9); SODIUM 135 mEQ/L (135-145)
[2016-12-05] MEDS: Levothyroxine 25mcg tab GT SCH (08:41)
[2016-12-05] MEDS: Phenytoin 50mg tab GT SCH ×2 (08:41→17:43)
[2016-12-05] MEDS: Cefepime HCl 2 GM in D5W 110 ML IV SCH ×2 (08:42→21:21)
[2016-12-05] MEDS: Heparin 5000 units/ml inj SUBQ SCH ×2 (08:54→21:37)
--- NOTE | 2016-12-05 10:03 | History and Physical ---
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 Patient had gradual onset of symptoms. The patient had some prior history of a diverticulosis. She was diagnosed to have severe sepsis and admitted for further work up. Allergies: Coded Allergies: PEANUT (Verified Allergy, Unknown, 09/22/16) Medication History Scheduled Docusate Sodium* (Colace*), 100 MG GT TWICE A DAY, (Reported) Ertapenem (Invanz), 1 GM IM DAILY Furosemide* (Lasix*), 20 MG GT DAILY, (Reported) Ipratropium/Albuterol Sulfate (DuoNeb 0.5-3(2.5)mg/3ml), 3 ML HHN EVERY 8 HOURS, (Reported) Letrozole (Femara), 2.5 MG ORAL DAILY, (Reported) Levetiracetam* (Levetiracetam*), 1,500 MG GT TWICE A DAY, (Reported) Levothyroxine Sodium* (Levothyroxine Sodium*), 25 MCG GT DAILY, (Reported) Lorazepam* (Ativan*), 2 MG GT EVERY 4 HOURS, (Reported) Magnesium Hydroxide (Milk of Magnesia), 30 ML ORAL DAILY, (Reported) Meropenem (Meropenem), 1 GM IV EVERY 2 HOURS Phenytoin (Dilantin), 150 MG GT BID, (Reported) Dnedprcjvjvh-Eguq-Ikvgemid,Iso (Zosyn 3.375 Gm Pre Mix-Bag), 3.375 GM IVPB EVERY 8 HOURS Tigecycline (Tygacil), 50 MG IVPB EVERY 12 HOURS Vitamin D (Vitamin D3), 2,000 UNITS GT DAILY, (Reported) Scheduled PRN Acetaminophen (Acetaminophen), 650 MG GT Q6H PRN for Prn Headache/Temp > 101, ( Reported) Hydrocodone Bit/Acetaminophen 5-325* ([place] 5-325 Tablet*), 1 TAB GT Q4H PRN for For Pain, (Reported) Miscellaneous Medications Bisacodyl (Bisacodyl), 10 MG RC, (Reported) Ferrous Sulfate (Iron), 325 MG GT, (Reported) Magnesium Oxide (Mag-Oxide), 300 MG GT, (Reported) Nitroglycerin (Nitrostat), 0.4 MG SL, (Reported) Patient History Healthcare decision maker Resuscitation status Full Code Advanced Directive on File No Past Medical/Surgical History Past Medical/Surgical History: (1) Feeding by G-tube (2) Septic shock (3) Seizure (4) Chronic respiratory failure (5) Anoxic brain damage syndrome Review of Systems All Other Systems: negative except mentioned in HPI Physical Exam General Appearance: moderate distress Lines, tubes and drains: gtube HEENT: normocephalic, atraumatic Neck: non-tender, normal alignment Respiratory/Chest: chest wall non-tender, lungs clear Cardiovascular/Chest: normal peripheral pulses, normal rate Abdomen: normal bowel sounds, non tender Genitourinary/Rectal: normal genital exam, normal rectal exam Extremities: normal range of motion, non-tender, normal inspection Skin Exam: normal pigmentation Neurologic: no motor/sensory deficits Lymphatic: anterior cervical Last 24 Hour Vital Signs Date Time Temp Pulse Resp B/P Pulse Ox O2 Delivery O2 Flow Rate FiO2 12/05/16 09:00 96 23 87/41 100 Mechanical Ventilator 50 12/05/16 08:50 95 25 50 12/05/16 08:00 98.0 98 26 100/41 100 Mechanical Ventilator 50 12/05/16 08:00 50 12/05/16 07:29 97 22 50 12/05/16 07:00 95 20 86/38 100 Mechanical Ventilator 50 12/05/16 06:00 96 21 85/42 97 Mechanical Ventilator 50 12/05/16 05:00 96 20 99/48 97 Mechanical Ventilator 50 12/05/16 04:49 95 20 50 12/05/16 04:00 96 12/05/16 04:00 98.7 93 20 106/49 97 Mechanical Ventilator 50 12/05/16 03:00 94 20 97/49 97 Mechanical Ventilator 70 12/05/16 02:42 91 19 50 12/05/16 02:00 91 20 94/47 97 Mechanical Ventilator 70 12/05/16 01:04 93 20 96/48 97 Mechanical Ventilator 70 12/05/16 00:56 94 21 50 12/05/16 00:30 50 12/05/16 00:30 98.0 90 16 106/54 97 Mechanical Ventilator 70 12/05/16 00:30 90 12/04/16 23:36 100.0 102 22 103/58 100 Mechanical Ventilator 70 12/04/16 23:20 102 22 70 12/04/16 23:19 102 22 Mechanical Ventilator 100 12/04/16 21:45 100.0 102 20 103/58 100 Mechanical Ventilator 70 12/04/16 21:21 100.0 12/04/16 20:32 105 20 70 12/04/16 20:32 105 21 Mechanical Ventilator 100 12/04/16 19:42 101.5 108 20 123/56 100 Mechanical Ventilator 100 12/04/16 18:55 109 20 Mechanical Ventilator 100 12/04/16 18:52 110 21 70 12/04/16 18:23 69 24 100 12/04/16 18:11 102.0 114 19 124/61 100 Mechanical Ventilator 12/04/16 16:20 102.0 113 16 134/60 94 Mechanical Ventilator 12/04/16 16:15 100 12/04/16 16:10 101.5 114 16 134/60 94 Mechanical Ventilator 12/04/16 16:00 69 24 Mechanical Ventilator 100 Intake and Output 12/04/16 12/05/16 19:00 07:00 Intake Total 210 ml 635 ml Output Total 120 ml 620 ml Balance 90 ml 15 ml Intake Oral 0 ml IV Total 210 ml 635 ml Output Urine Total 120 ml 620 ml Other 0 ml Laboratory Tests Test 12/04/16 16:45 12/04/16 18:05 12/05/16 03:20 White Blood Count 25.5 K/UL (4.8-10.8) *H 18.3 K/UL (4.8-10.8) H Red Blood Count 3.65 M/UL (4.20-5.40) L 3.30 M/UL (4.20-5.40) L Hemoglobin 10.8 G/DL (12.0-16.0) L 9.6 G/DL (12.0-16.0) L Hematocrit 33.9 % (37.0-47.0) L 31.0 % (37.0-47.0) L Mean Corpuscular Volume 93 FL (80-99) 94 FL (80-99) Mean Corpuscular Hemoglobin 29.7 PG (27.0-31.0) 29.2 PG (27.0-31.0) Mean Corpuscular Hemoglobin Concent 32.0 G/DL (32.0-36.0) 31.1 G/DL (32.0-36.0) L Red Cell Distribution Width 17.9 % (11.6-14.8) H 17.8 % (11.6-14.8) H Platelet Count 237 K/UL (150-450) 120 K/UL (150-450) L Mean Platelet Volume 9.5 FL (6.5-10.1) 12.1 FL (6.5-10.1) H Neutrophils (%) (Auto) % (45.0-75.0) % (45.0-75.0) Lymphocytes (%) (Auto) % (20.0-45.0) % (20.0-45.0) Monocytes (%) (Auto) % (1.0-10.0) % (1.0-10.0) Eosinophils (%) (Auto) % (0.0-3.0) % (0.0-3.0) Basophils (%) (Auto) % (0.0-2.0) % (0.0-2.0) Differential Total Cells Counted 100 Neutrophils % (Manual) 89 % (45-75) H Lymphocytes % (Manual) 7 % (20-45) L Monocytes % (Manual) 2 % (1-10) Eosinophils % (Manual) 0 % (0-3) Basophils % (Manual) 0 % (0-2) Band Neutrophils 2 % (0-8) Platelet Estimate Adequate Platelet Morphology Normal Anisocytosis 2+ Sodium Level 135 mEQ/L (135-145) 135 mEQ/L (135-145) Potassium Level 4.5 mEQ/L (3.4-4.9) 4.1 mEQ/L (3.4-4.9) Chloride Level 91 mEQ/L (98-107) L 94 mEQ/L (98-107) L Carbon Dioxide Level 29 mEQ/L (20-30) 28 mEQ/L (20-30) Anion Gap 15 (5-15) 13 (5-15) Blood Urea Nitrogen 11 mg/dL (7-23) 9 mg/dL (7-23) Creatinine 0.5 mg/dL (0.5-0.9) 0.4 mg/dL (0.5-0.9) L Estimat Glomerular Filtration Rate mL/min (>60) mL/min (>60) Glucose Level 130 mg/dL (74-106) H 105 mg/dL (74-106) Lactic Acid Level 1.80 mmol/L (0.66-2.22) Calcium Level 10.1 mg/dL (8.6-10.2) 9.7 mg/dL (8.6-10.2) Total Bilirubin 0.9 mg/dL (0.0-1.2) Aspartate Amino Transf (AST/SGOT) 106 U/L (5-40) H Alanine Aminotransferase (ALT/SGPT) 72 U/L (3-33) H Alkaline Phosphatase 331 U/L (35-104) H Total Creatine Kinase 27 U/L (26-140) Creatine Kinase MB < 1.5 ng/mL (< 3.8) Creatine Kinase MB Relative Index Troponin I < 0.30 ng/mL (<=0.30) Total Protein 8.2 g/dL (6.6-8.7) Albumin 3.6 g/dL (3.5-5.2) 2.6 g/dL (3.5-5.2) L Globulin 4.6 g/dL Albumin/Globulin Ratio 0.7 (1.0-2.7) L Urine Color [place] Urine Appearance Slightly cloudy Urine pH 7 (4.5-8.0) Urine Specific [place] 1.010 (1.005-1.035) Urine Protein 2+ (NEGATIVE) H Urine Glucose (UA) Negative (NEGATIVE) Urine Ketones Negative (NEGATIVE) Urine Occult Blood Negative (NEGATIVE) Urine Nitrite Negative (NEGATIVE) Urine Bilirubin Negative (NEGATIVE) Urine Ictotest Neg Urine Urobilinogen Normal MG/DL (0.0-1.0) Urine Leukocyte Esterase 2+ (NEGATIVE) H Urine RBC 0 /HPF (0 - 2) Urine WBC 10-15 /HPF (0 - 2) H Urine Squamous Epithelial Cells Many /LPF (NONE/OCC) H Urine Bacteria Moderate /HPF (NONE) H Phosphorus Level 3.0 mg/dL (2.5-4.8) Microbiology Date/Time Source Procedure Growth Status 12/04/16 16:45 Nasal Nares Influenza Types A,B Antigen (KIM) - Final Complete 12/04/16 18:05 Urine,Clean Catch Urine Culture - Preliminary Resulted Height (Feet): 5 Height (Inches): 4.00 Weight (Pounds): 247 Medications Current Medications Medications (Trade) Dose Ordered Sig/Boubacar Route PRN Reason Start Time Stop Time Status Last Admin Dose Admin Acetaminophen (Tylenol) 650 mg Q4H PRN ORAL FEVER 12/04/16 21:00 01/03/17 20:59 Albuterol/ Ipratropium 3 ml 3 ml EVERY 4 HOURS PRN HHN Shortness of Breath 12/04/16 21:00 12/09/16 20:59 Cefepime HCl/ Dextrose (Maxipime/D5W) 110 ml @ 220 mls/hr EVERY 12 HOURS IV 12/04/16 21:00 12/11/16 20:59 12/05/16 08:42 Dextrose (Dextrose 50%) STAT PRN IV Hypoglycemia 12/04/16 21:00 01/03/17 20:59 Heparin Sodium (Porcine) (Heparin 5000 units/ml) 5,000 units EVERY 12 HOURS SUBQ 12/04/16 21:00 01/03/17 20:59 12/05/16 08:54 Levetiracetam (Keppra) 1,500 mg TWICE A DAY GT 12/05/16 09:00 01/04/17 08:59 12/05/16 08:42 Levothyroxine Sodium (Synthroid) 25 mcg DAILY GT 12/05/16 09:00 01/04/17 08:59 12/05/16 08:41 Lorazepam (Ativan 2mg/ml 1ml) 2 mg EVERY 2 HOURS PRN IV For Anxiety 12/04/16 21:00 12/11/16 20:59 Morphine Sulfate (Morphine Sulfate) 4 mg EVERY 4 HOURS PRN IVP Severe Pain (Pain Scale 7-10) 12/04/16 21:00 12/11/16 20:59 Ondansetron HCl (Zofran) 4 mg Q6H PRN IVP Nausea & Vomiting 12/04/16 21:00 01/03/17 20:59 Phenytoin 150 mg 150 mg BID GT 12/05/16 09:00 01/04/17 08:59 12/05/16 08:41 Polyethylene Glycol (Miralax) 17 gm DAILYPRN PRN ORAL Constipation 12/04/16 21:00 01/03/17 20:59 Sodium Chloride (0.45% NS 1000ml) 1,000 ml @ 75 mls/hr [id number] IV 12/04/16 22:50 01/03/17 22:49 12/04/16 23:55 Vancomycin HCl 1 ea 1 ea DAILY PRN MISC Per rx protocol 12/04/16 23:00 01/03/17 22:59 Vancomycin HCl/ Dextrose (Vancomycin/D5W) 275 ml @ 183.708 mls/hr Q24H IVPB 12/05/16 23:00 12/10/16 22:59 Assessment/Plan Problem List: (1) Septic shock ICD Codes: A41.9 - Sepsis, unspecified organism; R65.21 - Severe sepsis with septic shock SNOMED: 73506062 (2) Chronic respiratory failure ICD Codes: J96.10 - Chronic respiratory failure, unspecified whether with hypoxia or hypercapnia SNOMED: 15933141 (3) Anoxic brain damage syndrome ICD Codes: G93.1 - Anoxic brain damage, not elsewhere classified SNOMED: 068948793 (4) Feeding by G-tube ICD Codes: Z93.1 - Gastrostomy status SNOMED: 200165836, 768606703 (5) Seizure ICD Codes: R56.9 - Unspecified convulsions SNOMED: 01476691 Assessment/Plan patel culture broad spectrum antibiotics titrate vent setting check sputum resume feeding dvt prophylaxis ANGELA DAVILA Dec 05, 2016 10:03
--- NOTE | 2016-12-05 12:22 | Diagnostic Imaging Report ---
Indication: SOB Technique: One view of the chest Comparison: 10/12/2016 Findings: Body habitus limits evaluation. There is a tracheostomy. There is interim development of a right basilar infiltrate. Right axillary surgical clips are again demonstrated. Right arm PICC is no longer evident Impression: Right basilar infiltrate, likely pneumonia Other findings as noted
--- NOTE | 2016-12-05 12:32 | Consultation ---
Consult Note Assessment/Plan [id number] A: 76 y/o female with: // Sepsis // Fever // Hx of KPC-K.pneumoniae bacteremia // Hx of qR-PSA UTI, recent qR-E.coli // Elevated LFTs r/o hepatobiliary disease - hepatitis panel negative Oct 2016, US pending // RRo PNA / pneumonitis Cxray :P // Chronic anoxic encephalopathy // Chronic VDRF SP trach, PEG // Seizure disorder // h/o breast CA // Morbid obesity PLAN: - continue i IV Vanco and Cefepime d# 1 ( 10/13 SP colistin d# 2 ) ( 10/12 SP IV vanco, zosyn d# 3 ) ( 09/27 SP IV zosyn d# 6 / 7 ) ( 09/26 SP IV Vanco d # 6 ) ( 09/23 SP amikacin d# 3 ) - f/u cultures ( Bl,Ur , Sp) - f/u Abdo US - monitor CBC, temperatures - monitor BMP - monitor CXR - vent support, trach care, aspiration precautions - seizure precautions Thank you HUNG GARCIA M.D. Dec 05, 2016 12:32
--- NOTE | 2016-12-05 14:39 | Wound Care Consultation ---
Wound Assessment Wound Assessment #1: Wound Number: #1 Wound Present on Admission: Yes New Wound: No Status Change of Wound: No Wound Location Body Site Modif: left, upper Wound Location Body Site: abdomen Wound Type: scab - SCATTERED Wound Thickness: Partial Thickness Percent of Wound Black/Brown: 100 - DRY SCABS Wound Drainage Amount: None Wound Drainage Odor: None/Absent Tissue Surrounding Wound: Intact Wound General Appearance: Reddened, Open to air, Clean/Dry Wound Assessment #2: Wound Number: #2 Wound Present on Admission: Yes New Wound: No Status Change of Wound: No Wound Location Body Site Modif: left, lower, anterior Wound Location Body Site: leg Wound Type: scab Jose Raul Test: Does not Jose Raul Wound Thickness: Partial Thickness Wound Length: 2.0 Wound Width: 1.0 Wound Depth: UTD Percent of Wound [place]/Red: 100 - SCAB Wound Drainage Amount: None Wound Drainage Odor: None/Absent Tissue Surrounding Wound: Erythemic Wound General Appearance: Reddened, Open to air, Clean/Dry Wound Assessment #3: Wound Number: #3 Wound Present on Admission: Yes New Wound: No Status Change of Wound: No Wound Location Body Site Modif: left, upper, medial Wound Location Body Site: thigh Wound Type: other - OPEN WOUND ETIOLOGY UNKNOWN Jose Raul Test: Does not Jose Raul Wound Thickness: Full Thickness Wound Length: 5.0 Wound Width: 1.0 Wound Depth: UTD Percent of Wound [place]/Red: 20 Percent of Wound Bed Yellow/Wh: 80 Wound Drainage Description: Serosanguineous Wound Drainage Amount: Scant Wound Drainage Odor: None/Absent Tissue Surrounding Wound: Erythemic Wound General Appearance: Reddened, Necrotic Wound Assessment #4: Wound Number: #4 Wound Present on Admission: Yes New Wound: No Status Change of Wound: No Wound Location Body Site Modif: right Wound Location Body Site: sacral Wound Type: pressure ulcer Jose Raul Test: Does not Jose Raul Pressure Ulcer Stage: IV/unstageable Wound Thickness: Full Thickness Wound Length: 6.0 Wound Width: 3.0 Wound Depth: UTD Percent of Wound [place]/Red: 70 Percent of Wound Bed Yellow/Wh: 30 - SCATTERED YELLOW/WHITE Wound Drainage Description: Serosanguineous Wound Drainage Amount: Moderate Wound Drainage Odor: None/Absent Tissue Surrounding Wound: Macerated Wound General Appearance: Reddened, Necrotic Wound Assessment #5: Wound Number: #5 Wound Present on Admission: Yes New Wound: No Status Change of Wound: No Wound Location Body Site Modif: right, mid Wound Location Body Site: buttocks Wound Type: scar - FULL THICKNESS SCAR TISSUE Jose Raul Test: Does not Jose Raul Wound Thickness: Full Thickness Wound Length: 2.0 Wound Width: 2.0 Wound Depth: UTD Percent of Wound [place]/Red: 100 Wound Drainage Amount: None Wound Drainage Odor: None/Absent Tissue Surrounding Wound: Intact Wound General Appearance: Reddened Wound Assessment #6: Wound Number: #6 Wound Present on Admission: Yes New Wound: No Status Change of Wound: No Wound Location Body Site Modif: right, mid Wound Location Body Site: ear Wound Type: other - HYPERPIGMENTATION Jose Raul Test: Does not Jose Raul Wound Length: 1.0 Wound Width: 1.0 Percent of Wound Black/Brown: 100 - DARK BROWN COLOR Wound Drainage Amount: None Wound Drainage Odor: None/Absent Tissue Surrounding Wound: Intact Wound General Appearance: Open to air, Clean/Dry Wound Assessment #7: Wound Number: #7 Wound Present on Admission: Yes New Wound: No Status Change of Wound: No Wound Location Body Site Modif: left Wound Location Body Site: ear Wound Type: pressure ulcer Jose Raul Test: Does not Jose Raul Pressure Ulcer Stage: deep tissue injury - SUSPECTED Percent of Wound [place]/Red: 100 - SCATTERED Wound Drainage Amount: None Wound Drainage Odor: None/Absent Tissue Surrounding Wound: Intact Wound General Appearance: Reddened, Open to air, Clean/Dry Wound Assessment #8: Wound Number: #8 Wound Present on Admission: Yes New Wound: No Status Change of Wound: No Wound Location Body Site Modif: right Wound Location Body Site: breast Wound Type: rash - INTERTRIGO Jose Raul Test: Does not Jose Raul Percent of Wound [place]/Red: 100 Wound Drainage Amount: None Wound Drainage Odor: None/Absent Tissue Surrounding Wound: Erythemic Wound General Appearance: Reddened, Open to air Wound Assessment #9: Wound Number: #9 Wound Present on Admission: Yes New Wound: No Status Change of Wound: No Wound Location Body Site Modif: mid Wound Location Body Site: sacral Wound Type: scar Jose Raul Test: Does not Jose Raul Wound Thickness: Full Thickness - SCAR TISSUE Wound Length: 2.0 Wound Width: 1.0 Wound Depth: UTD Percent of Wound [place]/Red: 100 Wound Drainage Amount: None Wound Drainage Odor: None/Absent Tissue Surrounding Wound: Intact Wound General Appearance: Open to air, Clean/Dry Wound Assessment #10: Wound Number: #10 Wound Present on Admission: Yes New Wound: No Status Change of Wound: No Wound Location Body Site Modif: left, right, upper, posterior Wound Location Body Site: leg Wound Type: scar - SCATTERED FULL THICKNESS SCAR TISSUE Jose Raul Test: Does not Jose Raul Wound Thickness: Full Thickness Percent of Wound [place]/Red: 100 Wound Drainage Amount: None Wound Drainage Odor: None/Absent Wound General Appearance: Asymptomatic, Open to air Wound Comment #1 left upper abdomen scabs. #2 left upper medial thigh open wound etiology unknown. #3 right sacral pressure ulcer unstageable. #4 left anterior muñoz dry scabs. #5 right mid ear hyperpigmentation. #6 right breast intertrigo rash. #7 right mid buttock full thickness scar tissue. #8 mid sacral full thickness scar tissue. #9 left ear pressure ulcer I redness. #10 right and left posterior upper legs scattered full thickness scar tissue. Recommendation -Local wound care as ordered. -Apply SPR mattress low air loss overlay for wound and skin management. -Turn and reposition. -Offload affected sites. -Avoid shear and friction. -Optimize nutrition. -Heel protectors, offload heels. -Assess and notify MD for any changes of condition. RUEL LEE Dec 05, 2016 14:39
[2016-12-05] MEDS ORDERED: Tubing IV Secondary IV ONE (16:16)
[2016-12-05] MEDS ORDERED: 1/2 NS 1000ml IV ONE (16:16)
[2016-12-05] MEDS: Nystatin Powder 100,000 units/gm 15gm TOPIC SCH (17:46)
[2016-12-05] MEDS: Vitamin A&D Oint 2oz Tube TOPIC SCH (21:21)
--- NOTE | 2016-12-05 21:48 | Consultation ---
DATE OF CONSULTATION: INFECTIOUS DISEASE CONSULTATION: REFERRING PHYSICIAN: Savi Rodriguez M.D. REASON FOR CONSULTATION: Evaluation of patient for sepsis, fever, and antibiotic management. HISTORY OF PRESENT ILLNESS: The patient is a 76-year-old female with multiple medical problems as listed below who came to the hospital due to fever. Currently, the patient is in the ICU. The patient has been on started on IV antibiotics. Fever, overall has improved. Infectious Disease consultation has been requested for further evaluation of the patient's antibiotic management. PAST MEDICAL HISTORY: Significant for, 1. KPC, pneumonia, and bacteremia in the past. 2. Abnormal liver function tests. 3. History of aspiration pneumonia to recent sepsis. 4. Anoxic encephalopathy. 5. Ventilator-dependent respiratory failure. 6. PEG and trach placement. 7. Seizure. 8. History of breast cancer. 9. Morbid obesity. MEDICATIONS: Vancomycin and cefepime. ALLERGIES: Peanuts. FAMILY HISTORY: Noncontributory. REVIEW OF SYSTEMS: Unobtainable. PHYSICAL EXAMINATION: VITAL SIGNS: Temperature 98 degrees, blood pressure 100/41, pulse 86, respiratory rate 18, and T-max 102. LABORATORY AND DIAGNOSTIC DATA: White blood cells 18, hemoglobin 9.6, and platelet 120,000. UA, 10 to 15 white blood cells. BUN 9 and creatinine 0.4. AST 106, ALT 72, and alkaline phosphatase 333. Serology is negative as of October. Chest x-ray pending. Ultrasound of the abdomen, back, and pelvis shows cardiomegaly and gallstones. ASSESSMENT: The patient is a 76-year-old female with multiple medical problems who has multiple episodes of infection recently including Klebsiella pneumoniae carbapenem, bacteremia, as well as pseudomonas urinary tract infection. At this time, the patient would benefit from broad-spectrum antibiotics. We will get further information from the cultures. Also, the patient has abnormal liver function test in view of history of gallstones rule out biliary disease. PLAN: 1. We will continue the patient on cefepime and vancomycin. 2. Monitor CBC and monitor BMP. 3. Monitor liver function tests. 4. Ultrasound of the liver . 5. Monitor cultures (blood, urine and sputum). 6. Monitor chest x-ray. 7. Based on the patient's clinical course and labs, we will do further recommendation. Thank you, Dr. Rodriguez, for allowing me to participate in the care of this patient. I will follow the patient with you during this hospitalization Delmer Madera M.D. DR: Ambreen JOB#: [id number] CC:
[2016-12-05] MEDS: Vancomycin 1250mg in D5W 275ml IVPB SCH (22:50)
[2016-12-06] VITALS (26 sets, daily range): BP systolic 93–140; BP diastolic 40–85
--- NOTE | 2016-12-06 | Cardiology Report ---
APPROVED REPORT EKG Measurement Heart [id number] Sinus tachycardia Right bundle branch block Abnormal ECG
[2016-12-06] MEDS: Heparin 5000 units/ml inj SUBQ SCH ×2 (09:30→21:19)
[2016-12-06] MEDS: Phenytoin 50mg tab GT SCH ×2 (09:40→18:24)
[2016-12-06] MEDS: Pantoprazole Inj IVP SCH (09:40)
[2016-12-06] MEDS: Levothyroxine 25mcg tab GT SCH (09:40)
[2016-12-06] MEDS: Nystatin Powder 100,000 units/gm 15gm TOPIC SCH ×3 (09:41→18:25)
[2016-12-06] MEDS: Vitamin A&D Oint 2oz Tube TOPIC SCH ×2 (09:41→21:18)
[2016-12-06] MEDS: Cefepime HCl 2 GM in D5W 110 ML IV SCH ×2 (10:02→21:18)
--- NOTE | 2016-12-06 10:31 | Pulmonolgy Critical Care Note ---
Critical Care - Asmt/Plan Problems: (1) Anoxic brain damage syndrome (2) Severe sepsis (3) Chronic respiratory failure (4) Feeding by G-tube (5) Cholecystostomy care Respiratory: monitor respiratory rate, adjust FIO2, CXR Cardiac: continue pressors, continue to monitor HR/BP Renal: F/U I&O, keep IV fluid Infectious Disease: check cultures, continue antibiotics Gastrointestinal: hold feedings Endocrine: check TSH, check HgA1C, continue sliding scale insulin Hematologic: monitor H/H, transfuse if hgb<8.5 Neurologic: PRN Ativan, keep patient comfortable Affect: PRN ativan Time Spent (Minutes): 40 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: senior private client advisor, cardio Discussed with: nurses, consultants, counter caserelectrical project manager - Objective Last 24 Hour Vital Signs Date Time Temp Pulse Resp B/P Pulse Ox O2 Delivery O2 Flow Rate FiO2 12/06/16 09:11 85 26 50 12/06/16 07:47 90 26 50 12/06/16 07:00 86 20 95/56 99 Mechanical Ventilator 50 12/06/16 06:00 86 20 112/49 99 Mechanical Ventilator 50 12/06/16 05:01 88 16 50 12/06/16 05:00 89 20 112/49 99 Mechanical Ventilator 50 12/06/16 04:00 50 12/06/16 04:00 84 12/06/16 04:00 98.5 89 20 112/49 99 Mechanical Ventilator 50 12/06/16 03:00 110 20 102/40 94 Mechanical Ventilator 50 12/06/16 02:52 87 18 50 12/06/16 02:30 110 20 93/56 94 Mechanical Ventilator 50 12/06/16 02:00 88 20 97/47 94 Mechanical Ventilator 50 12/06/16 01:30 88 20 100/50 94 Mechanical Ventilator 50 12/06/16 01:05 89 22 50 12/06/16 01:00 98.6 88 20 97/47 94 Mechanical Ventilator 50 12/06/16 00:00 84 12/06/16 00:00 84 20 122/46 94 Mechanical Ventilator 50 12/06/16 00:00 50 12/05/16 23:04 86 19 50 12/05/16 23:00 87 20 114/51 99 Mechanical Ventilator 50 12/05/16 22:00 92 20 98/83 99 Mechanical Ventilator 50 12/05/16 21:00 90 19 106/53 100 Mechanical Ventilator 50 12/05/16 20:39 87 21 50 12/05/16 20:00 98.7 89 21 114/48 99 Mechanical Ventilator 50 12/05/16 20:00 87 12/05/16 20:00 50 12/05/16 19:00 91 19 95/45 100 Mechanical Ventilator 50 12/05/16 18:09 94 17 50 12/05/16 18:00 89 17 105/50 100 Mechanical Ventilator 50 12/05/16 18:00 87 20 105/56 100 Mechanical Ventilator 50 12/05/16 17:00 85 20 118/77 100 Mechanical Ventilator 50 12/05/16 17:00 87 24 50 12/05/16 16:00 98.2 89 21 111/59 99 Mechanical Ventilator 50 12/05/16 16:00 50 12/05/16 16:00 89 12/05/16 15:10 93 26 50 12/05/16 15:00 90 20 96/52 98 Mechanical Ventilator 50 12/05/16 14:00 89 22 98/51 100 Mechanical Ventilator 50 12/05/16 13:19 90 20 50 12/05/16 13:00 90 22 85/57 97 Mechanical Ventilator 50 12/05/16 12:00 50 12/05/16 12:00 95 12/05/16 12:00 98.0 92 23 95/41 99 Mechanical Ventilator 50 12/05/16 11:00 87 20 102/45 100 Mechanical Ventilator 50 12/05/16 11:00 89 25 50 Status: awake Condition: critical, grave HEENT: atraumatic Neck: full ROM Lungs: chest wall tender Heart: HR/BP stable Abdomen: soft, non-tender, active bowel sounds Extremities: no C/C/E Decubiti: location Micro: Microbiology Date/Time Source Procedure Growth Status 12/04/16 16:30 Blood Blood Culture - Preliminary NO GROWTH AFTER 24 HOURS Resulted 12/04/16 16:30 Blood Blood Culture - Preliminary NO GROWTH AFTER 24 HOURS Resulted 12/04/16 16:45 Nasal Nares Influenza Types A,B Antigen (KIM) - Final Complete 12/04/16 18:05 Urine,Clean Catch Urine Culture - Preliminary Streptococcus Species Resulted 12/05/16 03:00 Sacral Right Gram Stain Pending Resulted 12/05/16 03:00 Sacral Right Wound Culture - Preliminary Resulted Critical Care - Subjective ROS Limited/Unobtainable: No ICU Day: 3 Condition: critical FI02: 50 Vent Support Breath Rate: 12 Vent Support Mode: AC Vent Tidal Volume: 500 Sputum Amount: Moderate PEEP: 5.0 PIP: 29 Tube Feeding Amount: 40 I&O: Intake and Output 12/05/16 12/06/16 19:00 07:00 Intake Total 1110 ml 1380 ml Output Total 815 ml 980 ml Balance 295 ml 400 ml Free Water 100 ml 100 ml IV Total 900 ml 1000 ml Tube Feeding 280 ml Other 110 ml Output Urine Total 815 ml 980 ml # Bowel Movements 3 4 ANGELA DAVILA Dec 06, 2016 10:31
--- NOTE | 2016-12-06 11:34 | Infectious Diseases Prog Note ---
Assessment/Plan Assessment/Plan A: 76 y/o female with: // Sepsis // Fever , SP // Pna C-xray : Right basilar infiltrate, likely pneumonia // Probable UTI Ucx: Strep // Hx of KPC-K.pneumoniae bacteremia // Hx of qR-PSA UTI, recent qR-E.coli // Elevated LFTs r/o hepatobiliary disease - hepatitis panel negative Oct 2016, US pending // Chronic anoxic encephalopathy // Chronic VDRF SP trach, PEG // Seizure disorder // h/o breast CA // Morbid obesity PLAN: - continue i IV Vanco and Cefepime d# 2 ( 10/13 SP colistin d# 2 ) ( 10/12 SP IV vanco, zosyn d# 3 ) ( 09/27 SP IV zosyn d# 6 / 7 ) ( 09/26 SP IV Vanco d # 6 ) ( 09/23 SP amikacin d# 3 ) - f/u cultures ( Bl,Ur , Sp) - f/u Abdo US - monitor CBC, temperatures - monitor BMP - monitor CXR - vent support, trach care, aspiration precautions - seizure precautions Subjective Allergies: Coded Allergies: PEANUT (Verified Allergy, Unknown, 09/22/16) Subjective on vent Objective Vital Signs Last 24 Hour Vital Signs Date Time Temp Pulse Resp B/P Pulse Ox O2 Delivery O2 Flow Rate FiO2 12/06/16 11:00 85 22 101/73 99 Mechanical Ventilator 50 12/06/16 10:38 85 55 50 12/06/16 10:00 85 22 112/55 100 Mechanical Ventilator 50 12/06/16 09:11 85 26 50 12/06/16 09:00 86 20 113/45 99 Mechanical Ventilator 50 12/06/16 08:00 83 12/06/16 08:00 50 12/06/16 08:00 97.9 89 24 115/59 99 Mechanical Ventilator 50 12/06/16 07:47 90 26 50 12/06/16 07:00 86 20 95/56 99 Mechanical Ventilator 50 12/06/16 06:00 86 20 112/49 99 Mechanical Ventilator 50 12/06/16 05:01 88 16 50 12/06/16 05:00 89 20 112/49 99 Mechanical Ventilator 50 12/06/16 04:00 50 12/06/16 04:00 84 12/06/16 04:00 98.5 89 20 112/49 99 Mechanical Ventilator 50 12/06/16 03:00 110 20 102/40 94 Mechanical Ventilator 50 12/06/16 02:52 87 18 50 12/06/16 02:30 110 20 93/56 94 Mechanical Ventilator 50 12/06/16 02:00 88 20 97/47 94 Mechanical Ventilator 50 12/06/16 01:30 88 20 100/50 94 Mechanical Ventilator 50 12/06/16 01:05 89 22 50 12/06/16 01:00 98.6 88 20 97/47 94 Mechanical Ventilator 50 12/06/16 00:00 84 12/06/16 00:00 84 20 122/46 94 Mechanical Ventilator 50 12/06/16 00:00 50 12/05/16 23:04 86 19 50 12/05/16 23:00 87 20 114/51 99 Mechanical Ventilator 50 12/05/16 22:00 92 20 98/83 99 Mechanical Ventilator 50 12/05/ 21:00 90 19 106/53 100 Mechanical Ventilator 50 12/05/16 20:39 87 21 50 12/05/16 20:00 98.7 89 21 114/48 99 Mechanical Ventilator 50 12/05/16 20:00 87 12/05/ 20:00 50 12/05/ 19:00 91 19 95/45 100 Mechanical Ventilator 50 12/05/16 18:09 94 17 50 12/05/17 18:00 89 17 105/50 100 Mechanical Ventilator 50 12/05/17 18:00 87 20 105/56 100 Mechanical Ventilator 50 12/05/17 17:00 85 20 118/77 100 Mechanical Ventilator 50 17 17:00 87 24 50 12/05/16 16:00 98.2 89 21 111/59 99 Mechanical Ventilator 50 17 16:00 50 3/17 16:00 89 12/05/17 15:10 93 26 50 3/17 15:00 90 20 96/52 98 Mechanical Ventilator 50 17 14:00 89 22 98/51 100 Mechanical Ventilator 50 3/17 13:19 90 20 50 4/3/17 13:00 90 22 85/57 97 Mechanical Ventilator 50 4/17 12:00 50 12/05/17 12:00 95 12/05/17 12:00 98.0 92 23 95/41 99 Mechanical Ventilator 50 Height (Feet): 5 Height (Inches): 4.00 Weight (Pounds): 247 HEENT: mucous membranes moist Respiratory/Chest: normal breath sounds Cardiovascular: regular rhythm Abdomen: soft, non tender Microbiology Date/Time Source Procedure Growth Status 12/04/16 16:30 Blood Blood Culture - Preliminary NO GROWTH AFTER 24 HOURS Resulted 12/04/16 16:30 Blood Blood Culture - Preliminary NO GROWTH AFTER 24 HOURS Resulted 12/04/16 18:40 Nasal Nares MRSA Culture - Final Staphylococcus Aureus - Mrsa Complete 12/04/16 16:45 Nasal Nares Influenza Types A,B Antigen (KIM) - Final Complete 12/04/16 18:05 Urine,Clean Catch Urine Culture - Preliminary Streptococcus Species Resulted 12/05/16 03:00 Sacral Right Gram Stain Pending Resulted 12/05/16 03:00 Sacral Right Wound Culture - Preliminary Resulted Current Medications Medications (Trade) Dose Ordered Sig/Boubacar Route PRN Reason Start Time Stop Time Status Last Admin Dose Admin Acetaminophen (Tylenol) 650 mg Q4H PRN ORAL FEVER 12/04/16 21:00 01/03/17 20:59 Albuterol/ Ipratropium 3 ml 3 ml EVERY 4 HOURS PRN HHN Shortness of Breath 12/04/16 21:00 12/09/16 20:59 Cefepime HCl/ Dextrose (Maxipime/D5W) 110 ml @ 220 mls/hr EVERY 12 HOURS IV 12/04/16 21:00 12/11/16 20:59 12/06/16 10:02 Dextrose (Dextrose 50%) STAT PRN IV Hypoglycemia 12/04/16 21:00 01/03/17 20:59 Heparin Sodium (Porcine) (Heparin 5000 units/ml) 5,000 units EVERY 12 HOURS SUBQ 12/04/16 21:00 01/03/17 20:59 12/05/16 21:37 Levetiracetam (Keppra) 1,500 mg TWICE A DAY GT 12/05/16 09:00 01/04/17 08:59 12/06/16 09:40 Levothyroxine Sodium (Synthroid) 25 mcg DAILY GT 12/05/16 09:00 01/04/17 08:59 12/06/16 09:40 Lorazepam (Ativan 2mg/ml 1ml) 2 mg EVERY 2 HOURS PRN IV For Anxiety 12/04/16 21:00 12/11/16 20:59 Morphine Sulfate (Morphine Sulfate) 4 mg EVERY 4 HOURS PRN IVP Severe Pain (Pain Scale 7-10) 12/04/16 21:00 12/11/16 20:59 Nystatin (Nystop Powder) 1 applic THREE TIMES A DAY TOPIC 12/05/16 18:00 01/04/17 17:59 12/06/16 09:41 Ondansetron HCl (Zofran) 4 mg Q6H PRN IVP Nausea & Vomiting 12/04/16 21:00 01/03/17 20:59 Pantoprazole (Protonix) 40 mg DAILY IVP 12/06/16 09:00 01/05/17 08:59 12/06/16 09:40 Phenytoin 150 mg 150 mg BID GT 12/05/16 09:00 01/04/17 08:59 12/06/16 09:40 Polyethylene Glycol (Miralax) 17 gm DAILYPRN PRN ORAL Constipation 12/04/16 21:00 01/03/17 20:59 Sodium Chloride (0.45% NS 1000ml) 1,000 ml @ 75 mls/hr [id number] IV 12/04/16 22:50 01/03/17 22:49 12/06/16 01:49 Vancomycin HCl 1 ea 1 ea DAILY PRN MISC Per rx protocol 12/04/16 23:00 01/03/17 22:59 Vancomycin HCl/ Dextrose (Vancomycin/D5W) 275 ml @ 183.708 mls/hr Q24H IVPB 12/05/16 23:00 12/10/16 22:59 12/05/16 22:50 Vitamin A/Vitamin D (A & D Oint) 1 applic EVERY 12 HOURS TOPIC 12/05/16 21:00 01/04/17 20:59 12/06/16 09:41 HUNG GARCIA M.D. Dec 06, 2016 11:34
--- NOTE | 2016-12-06 11:36 | Diagnostic Imaging Report ---
Indication: Abdominal pain, abnormal liver function tests Technique: Goss-scale and duplex images of the upper abdomen were obtained Comparison: None Findings: . Gallbladder demonstrates gallstones. No wall thickening or pericholecystic fluid. It is nondistended. Sonographic Sky's sign is negative. Common bile duct measures 4 mm in diameter. No intrahepatic biliary ductal dilatation. Liver demonstrates normal echogenicity, no focal abnormality. It is enlarged. Calcifications are seen within the right hepatic lobe. Portal vein and hepatic veins are patent.. Pancreas is unremarkable. Spleen is unremarkable. Left kidney measures 12.9 cm in length. Right kidney measures 14.2 cm length. Both kidneys demonstrate normal echogenicity. There is no hydronephrosis. Left kidney demonstrates a 2.8 cm lower pole cyst. . Abdominal aorta is partially obscured by bowel gas, visualized portions are non-aneurysmal. Impression: Cholelithiasis. Negative for dilated ducts Mild hepatomegaly Incidental finding of right lobe liver presumed granulomatous calcifications Incidental finding left lower pole renal cyst Note inability to visualized portions of the abdominal aorta
[2016-12-06] MEDS: Vancomycin 1250mg in D5W 275ml IVPB SCH (22:49)
[2016-12-07] VITALS (24 sets, daily range): BP systolic 103–134; BP diastolic 43–102
[2016-12-07 06:43] LABS: ALANINE AMINOTRANSFERASE 40 U/L (3-33); ALBUMIN/GLOBULIN RATIO 0.5 (1.0-2.7); ANION GAP 16 (5-15); ASPARTATE AMINO TRANSFERASE 43 U/L (5-40); CALCIUM 9.9 mg/dL (8.6-10.2); CARBON DIOXIDE 25 mEQ/L (20-30); CHLORIDE 96 mEQ/L (98-107); CREATININE 0.3 mg/dL (0.5-0.9); HEMOLYSIS 11; MAGNESIUM 1.8 mg/dL (1.7-2.5); PHOSPHORUS 2.8 mg/dL (2.5-4.8); POTASSIUM 3.7 mEQ/L (3.4-4.9); SODIUM 137 mEQ/L (135-145); TOTAL PROTEIN 7.5 g/dL (6.6-8.7)
[2016-12-07 08:29] LABS: BASOPHILS % (AUTO) 0.9 % (0.0-2.0); EOSINOPHILS % (AUTO) 8.2 % (0.0-3.0); LYMPHOCYTES % (AUTO) 8.7 % (20.0-45.0); MEAN CORPUSCULAR HEMOGLOBIN 28.5 PG (27.0-31.0); MEAN CORPUSCULAR HGB CONC 30.3 G/DL (32.0-36.0); MEAN CORPUSCULAR VOLUME 94 FL (80-99); MEAN PLATELET VOLUME 10.2 FL (6.5-10.1); MONOCYTES % (AUTO) 8.9 % (1.0-10.0); NEUTROPHILS % (AUTO) 73.3 % (45.0-75.0); PLATELET COUNT 219 K/UL (150-450); RED BLOOD COUNT 3.42 M/UL (4.20-5.40); RED CELL DISTRIBUTION WIDTH 17.2 % (11.6-14.8); WHITE BLOOD COUNT 6.8 K/UL (4.8-10.8)
[2016-12-07] MEDS: Nystatin Powder 100,000 units/gm 15gm TOPIC SCH ×3 (08:37→17:38)
[2016-12-07] MEDS: Vitamin A&D Oint 2oz Tube TOPIC SCH ×2 (08:37→20:30)
[2016-12-07] MEDS: Levothyroxine 25mcg tab GT SCH (08:38)
[2016-12-07] MEDS: Cefepime HCl 2 GM in D5W 110 ML IV SCH ×2 (08:38→20:30)
[2016-12-07] MEDS: Pantoprazole Inj IVP SCH (08:38)
[2016-12-07] MEDS: Phenytoin 50mg tab GT SCH ×2 (08:38→17:38)
[2016-12-07] MEDS: Heparin 5000 units/ml inj SUBQ SCH ×2 (08:51→20:31)
--- NOTE | 2016-12-07 09:58 | Pulmonology Progress Note ---
Assessment/Plan Problems: (1) Septic shock (2) Chronic respiratory failure (3) Anoxic brain damage syndrome (4) Feeding by G-tube (5) Seizure Respiratory: monitor respiratory rate, adjust FIO2 Cardiac: continue to monitor HR/BP Renal: F/U I&O, keep IV fluid Infectious Disease: check cultures, continue antibiotics Gastrointestinal: continue feedings/current rate, hold feedings Endocrine: monitor blood sugar, check TSH, continue sliding scale insulin Hematologic: monitor H/H, transfuse if hgb<8.5 Neurologic: PRN Ativan, PRN Morphine, keep patient comfortable Prophylaxis: Protonix 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: 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, consultants, registered nurse hh case manager Subjective ROS Limited/Unobtainable: No Constitutional: Reports: no symptoms HEENT: Repors: no symptoms Allergies: Coded Allergies: PEANUT (Verified Allergy, Unknown, 09/22/16) Objective Last 24 Hour Vital Signs Date Time Temp Pulse Resp B/P Pulse Ox O2 Delivery O2 Flow Rate FiO2 12/07/16 09:20 88 23 40 12/07/16 09:00 88 27 117/54 100 Mechanical Ventilator 50 12/07/16 08:00 88 12/07/16 08:00 98.8 89 23 116/55 100 Mechanical Ventilator 50 12/07/16 08:00 50 12/07/16 07:15 88 30 50 12/07/16 07:00 89 24 129/102 100 Mechanical Ventilator 50 12/07/16 06:00 84 25 118/56 100 Mechanical Ventilator 50 12/07/16 05:10 81 36 50 12/07/16 05:00 87 24 113/87 100 Mechanical Ventilator 50 12/07/16 04:11 90 12/07/16 04:10 50 12/07/16 04:00 98.0 91 25 110/47 100 Mechanical Ventilator 50 12/07/16 03:20 94 28 50 12/07/16 03:00 92 23 103/50 100 Mechanical Ventilator 50 12/07/16 02:00 90 26 127/56 100 Mechanical Ventilator 50 12/07/16 01:09 90 31 50 12/07/16 01:05 88 25 112/53 100 Mechanical Ventilator 50 12/07/16 00:00 50 12/07/16 00:00 85 12/07/16 00:00 97.3 85 20 110/43 100 Mechanical Ventilator 50 12/06/16 23:28 90 31 50 4/4/17 23:00 88 24 126/58 100 Mechanical Ventilator 50 12/06/16 22:00 85 25 140/82 100 Mechanical Ventilator 50 12/06/16 21:00 84 25 130/55 100 Mechanical Ventilator 50 12/06/16 20:31 85 30 50 12/06/16 20:00 50 12/06/16 20:00 99.0 83 24 112/57 100 Mechanical Ventilator 50 12/06/16 20:00 83 12/06/16 19:07 86 31 50 12/06/16 19:00 84 21 120/85 100 Mechanical Ventilator 50 12/06/16 18:00 84 25 103/69 100 Mechanical Ventilator 50 12/06/16 17:00 87 25 112/55 100 Mechanical Ventilator 50 12/06/16 16:40 85 24 50 12/06/16 16:00 87 12/06/16 16:00 50 12/06/16 16:00 99.2 88 21 113/52 100 Mechanical Ventilator 50 12/06/16 15:00 83 21 104/51 100 Mechanical Ventilator 50 12/06/16 14:40 86 23 50 12/06/16 14:00 88 23 106/65 100 Mechanical Ventilator 50 12/06/16 13:00 87 24 124/61 100 Mechanical Ventilator 50 12/06/16 12:31 85 19 50 12/06/16 12:00 50 12/06/16 12:00 97.4 86 23 114/63 100 Mechanical Ventilator 50 12/06/16 12:00 85 12/06/16 11:00 85 22 101/73 99 Mechanical Ventilator 50 12/06/16 10:38 85 25 50 12/06/16 10:00 85 22 112/55 100 Mechanical Ventilator 50 Intake and Output 12/06/16 12/07/16 19:00 07:00 Intake Total 1265 ml 2020 ml Output Total 670 ml 736 ml Balance 595 ml 1284 ml Free Water 100 ml 190 ml IV Total 895 ml 1100 ml Tube Feeding 220 ml 730 ml Other 50 ml Output Urine Total 670 ml 735 ml Stool Total 1 ml # Bowel Movements 1 General Appearance: WD/WN HEENT: normocephalic, status post trach Respiratory/Chest: chest wall non-tender Breasts: no masses Cardiovascular: normal peripheral pulses Abdomen: normal bowel sounds, soft, non tender, no scars Extremities: no cyanosis Skin: no lesions Microbiology Date/Time Source Procedure Growth Status 12/04/16 16:30 Blood Blood Culture - Preliminary NO GROWTH AFTER 48 HOURS Resulted 12/04/16 16:30 Blood Blood Culture - Preliminary NO GROWTH AFTER 48 HOURS Resulted 12/04/16 18:40 Nasal Nares MRSA Culture - Final Staphylococcus Aureus - Mrsa Complete 12/04/16 16:45 Nasal Nares Influenza Types A,B Antigen (KIM) - Final Complete 12/04/16 18:05 Urine,Clean Catch Urine Culture - Preliminary Enterococcus Faecalis - Vre Gram Negative Bacillus 1 Resulted 12/05/16 03:00 Sacral Right Gram Stain Pending Resulted 12/05/16 03:00 Sacral Right Wound Culture - Preliminary Resulted 12/04/16 18:40 Rectum VRE Culture - Final Enterococcus Faecalis - Vre Complete Laboratory Tests 12/07/16 05:35: Sodium Level 137, Potassium Level 3.7, Chloride Level 96L, Carbon Dioxide Level 25, Anion Gap 16H, Blood Urea Nitrogen 9, Creatinine 0.3L, Estimat Glomerular Filtration Rate , Glucose Level 102, Calcium Level 9.9, Phosphorus Level 2.8, Magnesium Level 1.8, Total Bilirubin 0.3, Aspartate Amino Transf (AST/SGOT) 43H , Alanine Aminotransferase (ALT/SGPT) 40H, Alkaline Phosphatase 272H, Total Protein 7.5, Albumin 2.7L, Globulin 4.8, Albumin/Globulin Ratio 0.5L 12/07/16 07:50: White Blood Count 6.8, Red Blood Count 3.42L, Hemoglobin 9.7L, Hematocrit 32.1L , Mean Corpuscular Volume 94, Mean Corpuscular Hemoglobin 28.5, Mean Corpuscular Hemoglobin Concent 30.3L, Red Cell Distribution Width 17.2H, Platelet Count 219, Mean Platelet Volume 10.2H, Neutrophils (%) (Auto) 73.3, Lymphocytes (%) (Auto) 8.7L, Monocytes (%) (Auto) 8.9, Eosinophils (%) (Auto) 8.2H, Basophils (%) (Auto) 0.9 Current Medications Medications (Trade) Dose Ordered Sig/Boubacar Route PRN Reason Start Time Stop Time Status Last Admin Dose Admin Acetaminophen (Tylenol) 650 mg Q4H PRN ORAL FEVER 12/04/16 21:00 01/03/17 20:59 Albuterol/ Ipratropium 3 ml 3 ml EVERY 4 HOURS PRN HHN Shortness of Breath 12/04/16 21:00 12/09/16 20:59 Cefepime HCl/ Dextrose (Maxipime/D5W) 110 ml @ 220 mls/hr EVERY 12 HOURS IV 12/04/16 21:00 12/11/16 20:59 12/07/16 08:38 Dextrose (Dextrose 50%) STAT PRN IV Hypoglycemia 12/04/16 21:00 01/03/17 20:59 Heparin Sodium (Porcine) (Heparin 5000 units/ml) 5,000 units EVERY 12 HOURS SUBQ 12/04/16 21:00 01/03/17 20:59 12/07/16 08:51 Levetiracetam (Keppra) 1,500 mg TWICE A DAY GT 12/05/16 09:00 01/04/17 08:59 12/07/16 08:38 Levothyroxine Sodium (Synthroid) 25 mcg DAILY GT 12/05/16 09:00 01/04/17 08:59 12/07/16 08:38 Lorazepam (Ativan 2mg/ml 1ml) 2 mg EVERY 2 HOURS PRN IV For Anxiety 12/04/16 21:00 12/11/16 20:59 Morphine Sulfate (Morphine Sulfate) 4 mg EVERY 4 HOURS PRN IVP Severe Pain (Pain Scale 7-10) 12/04/16 21:00 12/11/16 20:59 Nystatin (Nystop Powder) 1 applic THREE TIMES A DAY TOPIC 12/05/16 18:00 01/04/17 17:59 12/07/16 08:37 Ondansetron HCl (Zofran) 4 mg Q6H PRN IVP Nausea & Vomiting 12/04/16 21:00 01/03/17 20:59 Pantoprazole (Protonix) 40 mg DAILY IVP 12/06/16 09:00 01/05/17 08:59 12/07/16 08:38 Phenytoin 150 mg 150 mg BID GT 12/05/16 09:00 01/04/17 08:59 12/07/16 08:38 Polyethylene Glycol (Miralax) 17 gm DAILYPRN PRN ORAL Constipation 12/04/16 21:00 01/03/17 20:59 Sodium Chloride (0.45% NS 1000ml) 1,000 ml @ 75 mls/hr [id number] IV 12/04/16 22:50 01/03/17 22:49 12/07/16 06:11 Vancomycin HCl 1 ea 1 ea DAILY PRN MISC Per rx protocol 12/04/16 23:00 01/03/17 22:59 Vancomycin HCl/ Dextrose (Vancomycin/D5W) 275 ml @ 183.708 mls/hr Q24H IVPB 12/05/16 23:00 12/10/16 22:59 12/06/16 22:49 Vitamin A/Vitamin D (A & D Oint) 1 applic EVERY 12 HOURS TOPIC 12/05/16 21:00 01/04/17 20:59 12/07/16 08:37 ANGELA DAVILA Dec 07, 2016 09:58
--- NOTE | 2016-12-07 10:25 | Diagnostic Imaging Report ---
APPROVED REPORT CPT Code: 18041 Present Symptoms Shortness of breath BILATERAL: Imaging reveals a patent deep venous system bilaterally. There is no evidence of thrombus within the femoral, popliteal or tibial segments. The greater saphenous veins are also within normal limits. Doppler indicates normal spontaneous flow within these segments.
--- NOTE | 2016-12-07 12:02 | Diagnostic Imaging Report ---
Indication: DYSPNEA Technique: One view of the chest Comparison: 12/04/2016 Findings: Body habitus limits evaluation. There is decreased, largely resolved, consolidation of the right lung base. Equivocal mild interstitial prominence appears similar to the prior study. Impression: Improved right basilar infiltrate, over 3 days
[2016-12-07 12:18] LABS: ABG BASE EXCESS 4.6; ABG PCO2 46.4 mmHg (35.0-45.0)
[2016-12-07 12:19] LABS: ABG ALLEN TEST POSITIVE
[2016-12-07] MEDS ORDERED: NS 275ml ONE (17:54)
[2016-12-07] MEDS ORDERED: Tubing IV Secondary IV ONE (17:54)
[2016-12-07] MEDS ORDERED: 1/2 NS 1000ml IV ONE (17:54)
--- NOTE | 2016-12-07 20:06 | Infectious Diseases Prog Note ---
Assessment/Plan Assessment/Plan A: 76 y/o female with: // Sepsis // Fever , SP // Pna C-xray : Right basilar infiltrate, likely pneumonia // Probable UTI Ucx: Strep // Hx of KPC-K.pneumoniae bacteremia // UTI, VRE and GNR // Elevated LFTs r/o hepatobiliary disease - hepatitis panel negative Oct 2016, - f/u [facility]do US : Cholelithiasis. Negative for dilated ducts // Chronic anoxic encephalopathy // Chronic VDRF SP trach, PEG // Seizure disorder // h/o breast CA // Morbid obesity PLAN: - continue Cefepime d# 3 and change i IV Vanco to Zyvox d# 1 ( 10/13 SP colistin d# 2 ) ( 10/12 SP IV vanco, zosyn d# 3 ) ( 09/27 SP IV zosyn d# 6 / 7 ) ( 09/26 SP IV Vanco d # 6 ) ( 09/23 SP amikacin d# 3 ) - f/u cultures ( Bl,Ur , Sp) - monitor CBC, temperatures - monitor BMP - monitor CXR - vent support, trach care, aspiration precautions - seizure precautions Subjective Constitutional: Denies: anorexia, chills, drenching sweats, fatigue, fever, no symptoms, other Allergies: Coded Allergies: PEANUT (Verified Allergy, Unknown, 09/22/16) Subjective on vent Objective Vital Signs Last 24 Hour Vital Signs Date Time Temp Pulse Resp B/P Pulse Ox O2 Delivery O2 Flow Rate FiO2 12/07/16 19:14 84 30 40 12/07/16 19:00 93 27 123/57 100 Mechanical Ventilator 40 12/07/16 18:00 85 23 113/59 99 Mechanical Ventilator 40 12/07/16 17:00 89 23 112/62 99 Mechanical Ventilator 40 12/07/16 16:43 91 32 30 12/07/16 16:00 90 12/07/16 16:00 40 12/07/16 16:00 98.7 92 23 126/61 100 Mechanical Ventilator 40 12/07/16 15:06 90 26 30 12/07/16 15:00 93 23 123/61 99 Mechanical Ventilator 40 12/07/16 14:00 94 24 134/66 99 Mechanical Ventilator 40 12/07/16 13:12 87 25 30 12/07/16 13:00 91 25 131/63 98 Mechanical Ventilator 40 12/07/16 12:00 30 12/07/16 12:00 94 12/07/16 12:00 98.6 92 23 108/55 100 Mechanical Ventilator 30 12/07/16 11:21 94 25 30 12/07/16 11:00 91 24 132/66 100 Mechanical Ventilator 40 12/07/16 10:00 87 23 124/57 100 Mechanical Ventilator 40 12/07/16 09:20 88 23 40 12/07/16 09:00 88 27 117/54 100 Mechanical Ventilator 50 12/07/16 08:00 88 12/07/16 08:00 98.8 89 23 116/55 100 Mechanical Ventilator 50 12/07/16 08:00 50 12/07/16 07:15 88 30 50 12/07/16 07:00 89 24 129/102 100 Mechanical Ventilator 50 12/07/16 06:00 84 25 118/56 100 Mechanical Ventilator 50 12/07/16 05:10 81 36 50 12/07/16 05:00 87 24 113/87 100 Mechanical Ventilator 50 12/07/16 04:11 90 12/07/16 04:10 50 12/07/16 04:00 98.0 91 25 110/47 100 Mechanical Ventilator 50 12/07/16 03:20 94 28 50 12/07/16 03:00 92 23 103/50 100 Mechanical Ventilator 50 12/07/16 02:00 90 26 127/56 100 Mechanical Ventilator 50 12/07/16 01:09 90 31 50 12/07/16 01:05 88 25 112/53 100 Mechanical Ventilator 50 12/07/16 00:00 50 12/07/16 00:00 85 12/07/16 00:00 97.3 85 20 110/43 100 Mechanical Ventilator 50 12/06/16 23:28 90 31 50 12/06/16 23:00 88 24 126/58 100 Mechanical Ventilator 50 12/06/16 22:00 85 25 140/82 100 Mechanical Ventilator 50 12/06/16 21:00 84 25 130/55 100 Mechanical Ventilator 50 12/06/16 20:31 85 30 50 Height (Feet): 5 Height (Inches): 4.00 Weight (Pounds): 247 HEENT: anicteric Respiratory/Chest: no respiratory distress Cardiovascular: regularly irregular Abdomen: no mass Microbiology Date/Time Source Procedure Growth Status 12/05/16 03:00 Sacral Right Gram Stain - Preliminary Resulted 12/05/16 03:00 Wound Culture - Preliminary Gram Negative Bacillus 1 Gram Negative Bacillus 2 Staphylococcus Aureus Resulted Laboratory Tests Test 12/07/16 05:35 12/07/16 07:50 12/07/16 12:10 Sodium Level 137 mEQ/L (135-145) Potassium Level 3.7 mEQ/L (3.4-4.9) Chloride Level 96 mEQ/L (98-107) L Carbon Dioxide Level 25 mEQ/L (20-30) Anion Gap 16 (5-15) H Blood Urea Nitrogen 9 mg/dL (7-23) Creatinine 0.3 mg/dL (0.5-0.9) L Estimat Glomerular Filtration Rate mL/min (>60) Glucose Level 102 mg/dL (74-106) Calcium Level 9.9 mg/dL (8.6-10.2) Phosphorus Level 2.8 mg/dL (2.5-4.8) Magnesium Level 1.8 mg/dL (1.7-2.5) Total Bilirubin 0.3 mg/dL (0.0-1.2) Aspartate Amino Transf (AST/SGOT) 43 U/L (5-40) H Alanine Aminotransferase (ALT/SGPT) 40 U/L (3-33) H Alkaline Phosphatase 272 U/L (35-104) H Total Protein 7.5 g/dL (6.6-8.7) Albumin 2.7 g/dL (3.5-5.2) L Globulin 4.8 g/dL Albumin/Globulin Ratio 0.5 (1.0-2.7) L White Blood Count 6.8 K/UL (4.8-10.8) Red Blood Count 3.42 M/UL (4.20-5.40) L Hemoglobin 9.7 G/DL (12.0-16.0) L Hematocrit 32.1 % (37.0-47.0) L Mean Corpuscular Volume 94 FL (80-99) Mean Corpuscular Hemoglobin 28.5 PG (27.0-31.0) Mean Corpuscular Hemoglobin Concent 30.3 G/DL (32.0-36.0) L Red Cell Distribution Width 17.2 % (11.6-14.8) H Platelet Count 219 K/UL (150-450) Mean Platelet Volume 10.2 FL (6.5-10.1) H Neutrophils (%) (Auto) 73.3 % (45.0-75.0) Lymphocytes (%) (Auto) 8.7 % (20.0-45.0) L Monocytes (%) (Auto) 8.9 % (1.0-10.0) Eosinophils (%) (Auto) 8.2 % (0.0-3.0) H Basophils (%) (Auto) 0.9 % (0.0-2.0) Arterial Blood pH 7.423 (7.350-7.450) Arterial Blood Partial Pressure CO2 46.4 mmHg (35.0-45.0) H Arterial Blood Partial Pressure O2 55.3 mmHg (75.0-100.0) L Arterial Blood HCO3 29.6 mmol/L (22.0-26.0) H Arterial Blood Oxygen Saturation 86.3 % (92.0-98.0) L Arterial Blood Base Excess 4.6 Best Test Positive Current Medications Medications (Trade) Dose Ordered Sig/Boubacar Route PRN Reason Start Time Stop Time Status Last Admin Dose Admin Acetaminophen (Tylenol) 650 mg Q4H PRN ORAL FEVER 12/04/16 21:00 01/03/17 20:59 Albuterol/ Ipratropium 3 ml 3 ml EVERY 4 HOURS PRN HHN Shortness of Breath 12/04/16 21:00 12/09/16 20:59 Cefepime HCl/ Dextrose (Maxipime/D5W) 110 ml @ 220 mls/hr EVERY 12 HOURS IV 12/04/16 21:00 12/11/16 20:59 12/07/16 08:38 Dextrose (Dextrose 50%) STAT PRN IV Hypoglycemia 12/04/16 21:00 01/03/17 20:59 Heparin Sodium (Porcine) (Heparin 5000 units/ml) 5,000 units EVERY 12 HOURS SUBQ 12/04/16 21:00 01/03/17 20:59 12/07/16 08:51 Levetiracetam (Keppra) 1,500 mg TWICE A DAY GT 12/05/16 09:00 01/04/17 08:59 12/07/16 17:38 Levothyroxine Sodium (Synthroid) 25 mcg DAILY GT 12/05/16 09:00 01/04/17 08:59 12/07/16 08:38 Lorazepam (Ativan 2mg/ml 1ml) 2 mg EVERY 2 HOURS PRN IV For Anxiety 12/04/16 21:00 12/11/16 20:59 Morphine Sulfate (Morphine Sulfate) 4 mg EVERY 4 HOURS PRN IVP Severe Pain (Pain Scale 7-10) 12/04/16 21:00 12/11/16 20:59 Nystatin (Nystop Powder) 1 applic THREE TIMES A DAY TOPIC 12/05/16 18:00 01/04/17 17:59 12/07/16 17:38 Ondansetron HCl (Zofran) 4 mg Q6H PRN IVP Nausea & Vomiting 12/04/16 21:00 01/03/17 20:59 Pantoprazole (Protonix) 40 mg DAILY IVP 12/06/16 09:00 01/05/17 08:59 12/07/16 08:38 Phenytoin 150 mg 150 mg BID GT 12/05/16 09:00 01/04/17 08:59 12/07/16 17:38 Polyethylene Glycol (Miralax) 17 gm DAILYPRN PRN ORAL Constipation 12/04/16 21:00 01/03/17 20:59 Sodium Chloride (0.45% NS 1000ml) 1,000 ml @ 75 mls/hr [id number] IV 12/04/16 22:50 01/03/17 22:49 12/07/16 17:38 Vancomycin HCl 1 ea 1 ea DAILY PRN MISC Per rx protocol 12/04/16 23:00 01/03/17 22:59 Vancomycin HCl/ Dextrose (Vancomycin/D5W) 275 ml @ 183.708 mls/hr Q24H IVPB 12/05/16 23:00 12/10/16 22:59 12/06/16 22:49 Vitamin A/Vitamin D (A & D Oint) 1 applic EVERY 12 HOURS TOPIC 12/05/16 21:00 01/04/17 20:59 12/07/16 08:37 HUNG GARCIA M.D. Dec 07, 2016 20:06
[2016-12-08] VITALS (15 sets, daily range): BP systolic 106–154; BP diastolic 49–80
[2016-12-08 05:12] LABS: BASOPHILS % (AUTO) 0.9 % (0.0-2.0); EOSINOPHILS % (AUTO) 11.3 % (0.0-3.0); LYMPHOCYTES % (AUTO) 12.7 % (20.0-45.0); MEAN CORPUSCULAR HEMOGLOBIN 28.7 PG (27.0-31.0); MEAN CORPUSCULAR HGB CONC 30.6 G/DL (32.0-36.0); MEAN CORPUSCULAR VOLUME 94 FL (80-99); MEAN PLATELET VOLUME 9.5 FL (6.5-10.1); MONOCYTES % (AUTO) 11.1 % (1.0-10.0); NEUTROPHILS % (AUTO) 64.1 % (45.0-75.0); PLATELET COUNT 212 K/UL (150-450); RED BLOOD COUNT 3.13 M/UL (4.20-5.40); RED CELL DISTRIBUTION WIDTH 17.4 % (11.6-14.8); WHITE BLOOD COUNT 5.2 K/UL (4.8-10.8)
[2016-12-08 05:25] LABS: ALANINE AMINOTRANSFERASE 34 U/L (3-33); ALBUMIN/GLOBULIN RATIO 0.7 (1.0-2.7); ANION GAP 11 (5-15); ASPARTATE AMINO TRANSFERASE 36 U/L (5-40); CALCIUM 9.9 mg/dL (8.6-10.2); CARBON DIOXIDE 31 mEQ/L (20-30); CHLORIDE 100 mEQ/L (98-107); CREATININE 0.4 mg/dL (0.5-0.9); HEMOLYSIS 0; MAGNESIUM 1.6 mg/dL (1.7-2.5); PHOSPHORUS 2.8 mg/dL (2.5-4.8); POTASSIUM 3.6 mEQ/L (3.4-4.9); SODIUM 142 mEQ/L (135-145); TOTAL PROTEIN 7.2 g/dL (6.6-8.7)
[2016-12-08] MEDS: Pantoprazole Inj IVP SCH (08:50)
[2016-12-08] MEDS: Cefepime HCl 2 GM in D5W 110 ML IV SCH (08:50)
[2016-12-08] MEDS: Vitamin A&D Oint 2oz Tube TOPIC SCH ×2 (08:51→21:22)
[2016-12-08] MEDS: Levothyroxine 25mcg tab GT SCH (08:51)
[2016-12-08] MEDS: Phenytoin 50mg tab GT SCH ×2 (08:51→18:11)
[2016-12-08] MEDS: Heparin 5000 units/ml inj SUBQ SCH ×2 (08:59→21:22)
[2016-12-08] MEDS: Nystatin Powder 100,000 units/gm 15gm TOPIC SCH ×4 (09:00→18:12)
--- NOTE | 2016-12-08 10:42 | Pulmonolgy Critical Care Note ---
Critical Care - Asmt/Plan Problems: (1) Anoxic brain damage syndrome (2) Severe sepsis (3) Chronic respiratory failure (4) Feeding by G-tube (5) Cholecystostomy care Respiratory: monitor respiratory rate, adjust FIO2, CXR Cardiac: continue to monitor HR/BP Renal: F/U I&O, keep IV fluid Infectious Disease: check cultures Gastrointestinal: continue feedings/current rate, hold feedings Endocrine: monitor blood sugar, check TSH, continue sliding scale insulin Hematologic: transfuse if hgb<8.5 Neurologic: keep patient comfortable Affect: PRN ativan 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: telephone maintainer, cardio, 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, consultants, case coordinatorcorporate quality manager - Objective Last 24 Hour Vital Signs Date Time Temp Pulse Resp B/P Pulse Ox O2 Delivery O2 Flow Rate FiO2 12/08/16 10:00 91 20 115/54 100 Mechanical Ventilator 40 12/08/16 09:27 90 27 40 12/08/16 09:00 91 20 124/54 100 Mechanical Ventilator 40 12/08/16 08:00 40 12/08/16 08:00 98.9 92 24 126/63 100 Mechanical Ventilator 40 12/08/16 07:30 93 29 40 12/08/16 07:00 89 20 126/63 100 Mechanical Ventilator 40 12/08/16 06:00 87 25 154/67 100 Mechanical Ventilator 40 12/08/16 05:23 88 23 40 12/08/16 05:00 98.9 85 23 122/59 100 Mechanical Ventilator 40 12/08/16 04:00 86 21 130/52 100 Mechanical Ventilator 40 12/08/16 04:00 40 12/08/16 04:00 86 12/08/16 03:02 89 24 40 12/08/16 03:00 90 25 124/61 99 Mechanical Ventilator 40 12/08/16 02:00 89 24 120/49 99 Mechanical Ventilator 40 12/08/16 01:00 83 28 106/50 99 Mechanical Ventilator 40 12/08/16 00:49 86 27 40 12/08/16 00:00 84 12/08/16 00:00 40 12/08/16 00:00 99.0 84 24 119/57 100 Mechanical Ventilator 40 12/07/16 23:00 86 27 113/53 100 Mechanical Ventilator 40 12/07/16 22:47 87 36 40 12/07/16 22:00 92 27 120/68 100 Mechanical Ventilator 40 12/07/16 21:13 95 25 40 12/07/16 21:00 93 27 119/52 100 Mechanical Ventilator 40 12/07/16 20:00 98.0 89 23 124/52 100 Mechanical Ventilator 40 12/07/16 20:00 40 12/07/16 20:00 87 12/07/16 19:14 84 30 40 12/07/16 19:00 93 27 123/57 100 Mechanical Ventilator 40 12/07/16 18:00 85 23 113/59 99 Mechanical Ventilator 40 12/07/16 17:00 89 23 112/62 99 Mechanical Ventilator 40 12/07/16 16:43 91 32 30 12/07/16 16:00 90 12/07/16 16:00 40 12/07/16 16:00 98.7 92 23 126/61 100 Mechanical Ventilator 40 12/07/16 15:06 90 26 30 12/07/16 15:00 93 23 123/61 99 Mechanical Ventilator 40 12/07/16 14:00 94 24 134/66 99 Mechanical Ventilator 40 12/07/16 13:12 87 25 30 12/07/16 13:00 91 25 131/63 98 Mechanical Ventilator 40 12/07/16 12:00 30 12/07/16 12:00 94 12/07/16 12:00 98.6 92 23 108/55 100 Mechanical Ventilator 30 12/07/16 11:21 94 25 30 12/07/16 11:00 91 24 132/66 100 Mechanical Ventilator 40 HEENT: atraumatic Neck: full ROM Heart: HR/BP stable, HR/BP unstable Abdomen: soft, non-tender, feeding tube Decubiti: location Critical Care - Subjective ROS Limited/Unobtainable: Yes ICU Day: 4 Condition: critical EKG Rhythm: Sinus Rhythm FI02: 40 Vent Support Breath Rate: 12 Vent Support Mode: AC Vent Tidal Volume: 500 Sputum Amount: Moderate PEEP: 5.0 PIP: 35 Tube Feeding Amount: 70 I&O: Intake and Output 12/07/16 12/08/16 18:59 06:59 Intake Total 1575 ml 1965 ml Output Total 925 ml 880 ml Balance 650 ml 1085 ml Free Water 100 ml 100 ml IV Total 935 ml 1235 ml Tube Feeding 420 ml 630 ml Other 120 ml Output Urine Total 925 ml 880 ml CXR: no change Labs: Laboratory Tests Test 12/07/16 12:10 12/08/16 05:00 Arterial Blood pH 7.423 (7.350-7.450) Arterial Blood Partial Pressure CO2 46.4 mmHg (35.0-45.0) H Arterial Blood Partial Pressure O2 55.3 mmHg (75.0-100.0) L Arterial Blood HCO3 29.6 mmol/L (22.0-26.0) H Arterial Blood Oxygen Saturation 86.3 % (92.0-98.0) L Arterial Blood Base Excess 4.6 Best Test Positive White Blood Count 5.2 K/UL (4.8-10.8) Red Blood Count 3.13 M/UL (4.20-5.40) L Hemoglobin 9.0 G/DL (12.0-16.0) L Hematocrit 29.3 % (37.0-47.0) L Mean Corpuscular Volume 94 FL (80-99) Mean Corpuscular Hemoglobin 28.7 PG (27.0-31.0) Mean Corpuscular Hemoglobin Concent 30.6 G/DL (32.0-36.0) L Red Cell Distribution Width 17.4 % (11.6-14.8) H Platelet Count 212 K/UL (150-450) Mean Platelet Volume 9.5 FL (6.5-10.1) Neutrophils (%) (Auto) 64.1 % (45.0-75.0) Lymphocytes (%) (Auto) 12.7 % (20.0-45.0) L Monocytes (%) (Auto) 11.1 % (1.0-10.0) H Eosinophils (%) (Auto) 11.3 % (0.0-3.0) H Basophils (%) (Auto) 0.9 % (0.0-2.0) Sodium Level 142 mEQ/L (135-145) Potassium Level 3.6 mEQ/L (3.4-4.9) Chloride Level 100 mEQ/L (98-107) Carbon Dioxide Level 31 mEQ/L (20-30) H Anion Gap 11 (5-15) Blood Urea Nitrogen 9 mg/dL (7-23) Creatinine 0.4 mg/dL (0.5-0.9) L Estimat Glomerular Filtration Rate mL/min (>60) Glucose Level 121 mg/dL (74-106) H Calcium Level 9.9 mg/dL (8.6-10.2) Phosphorus Level 2.8 mg/dL (2.5-4.8) Magnesium Level 1.6 mg/dL (1.7-2.5) L Total Bilirubin 0.2 mg/dL (0.0-1.2) Aspartate Amino Transf (AST/SGOT) 36 U/L (5-40) Alanine Aminotransferase (ALT/SGPT) 34 U/L (3-33) H Alkaline Phosphatase 257 U/L (35-104) H Total Protein 7.2 g/dL (6.6-8.7) Albumin 3.0 g/dL (3.5-5.2) L Globulin 4.2 g/dL Albumin/Globulin Ratio 0.7 (1.0-2.7) L ANGELA DAVILA Dec 08, 2016 10:42
[2016-12-08] MEDS ORDERED: INVANZ1 G1 IM (10:50)
[2016-12-08] MEDS ORDERED: AMOXICILLI125 MG/5 M ORAL (10:50)
--- NOTE | 2016-12-08 10:56 | Infectious Diseases Prog Note ---
Assessment/Plan Assessment/Plan A: 76 y/o female with: // Sepsis , SP // Fever , SP // Pna C-xray : Right basilar infiltrate, likely pneumonia // Probable UTI Ucx: VRE and Citrobacter // Hx of KPC-K.pneumoniae bacteremia // Elevated LFTs r/o hepatobiliary disease - hepatitis panel negative Oct 2016, - f/u [facility]do US : Cholelithiasis. Negative for dilated ducts // Chronic anoxic encephalopathy // Chronic VDRF SP trach, PEG // Seizure disorder // h/o breast CA // Morbid obesity PLAN: - continue Cefepime d# 4 , and change i IV Vanco to Zyvox d# 2 , upon DC will change AB Rx to Invanz and Amoxi x 1 wk ( DW PCP ) ( 10/13 SP colistin d# 2 ) ( 10/12 SP IV vanco, zosyn d# 3 ) ( 09/27 SP IV zosyn d# 6 / 7 ) ( 09/26 SP IV Vanco d # 6 ) ( 09/23 SP amikacin d# 3 ) - f/u cultures ( Bl,) - monitor CBC, temperatures - monitor BMP - monitor CXR - vent support, trach care, aspiration precautions - seizure precautions Subjective Constitutional: Denies: anorexia, chills, drenching sweats, fatigue, fever, no symptoms, other Allergies: Coded Allergies: PEANUT (Verified Allergy, Unknown, 09/22/16) Subjective on vent Objective Vital Signs Last 24 Hour Vital Signs Date Time Temp Pulse Resp B/P Pulse Ox O2 Delivery O2 Flow Rate FiO2 12/08/16 10:00 91 20 115/54 100 Mechanical Ventilator 40 12/08/16 09:27 90 27 40 12/08/16 09:00 91 20 124/54 100 Mechanical Ventilator 40 12/08/16 08:00 40 12/08/16 08:00 98.9 92 24 126/63 100 Mechanical Ventilator 40 12/08/16 08:00 93 12/08/16 07:30 93 29 40 12/08/16 07:00 89 20 126/63 100 Mechanical Ventilator 40 12/08/16 06:00 87 25 154/67 100 Mechanical Ventilator 40 12/08/16 05:23 88 23 40 12/08/16 05:00 98.9 85 23 122/59 100 Mechanical Ventilator 40 12/08/16 04:00 86 21 130/52 100 Mechanical Ventilator 40 12/08/16 04:00 40 12/08/16 04:00 86 12/08/16 03:02 89 24 40 12/08/16 03:00 90 25 124/61 99 Mechanical Ventilator 40 12/08/16 02:00 89 24 120/49 99 Mechanical Ventilator 40 12/08/16 01:00 83 28 106/50 99 Mechanical Ventilator 40 12/08/16 00:49 86 27 40 12/08/16 00:00 84 12/08/16 00:00 40 12/08/16 00:00 99.0 84 24 119/57 100 Mechanical Ventilator 40 12/07/16 23:00 86 27 113/53 100 Mechanical Ventilator 40 12/07/16 22:47 87 36 40 12/07/16 22:00 92 27 120/68 100 Mechanical Ventilator 40 12/07/16 21:13 95 25 40 12/07/16 21:00 93 27 119/52 100 Mechanical Ventilator 40 12/07/16 20:00 98.0 89 23 124/52 100 Mechanical Ventilator 40 12/07/16 20:00 40 12/07/16 20:00 87 12/07/16 19:14 84 30 40 12/07/16 19:00 93 27 123/57 100 Mechanical Ventilator 40 12/07/16 18:00 85 23 113/59 99 Mechanical Ventilator 40 12/07/16 17:00 89 23 112/62 99 Mechanical Ventilator 40 17 16:43 91 32 30 17 16:00 90 12/07/16 16:00 40 12/07/16 16:00 98.7 92 23 126/61 100 Mechanical Ventilator 40 12/07/17 15:06 90 26 30 12/07/17 15:00 93 23 123/61 99 Mechanical Ventilator 40 12/07/17 14:00 94 24 134/66 99 Mechanical Ventilator 40 12/07/17 13:12 87 25 30 12/07/17 13:00 91 25 131/63 98 Mechanical Ventilator 40 12/07/17 12:00 30 12/07/17 12:00 94 12/07/16 12:00 98.6 92 23 108/55 100 Mechanical Ventilator 30 12/07/ 11:21 94 25 30 12/07/17 11:00 91 24 132/66 100 Mechanical Ventilator 40 Height (Feet): 5 Height (Inches): 4.00 Weight (Pounds): 247 HEENT: atraumatic Respiratory/Chest: normal breath sounds Cardiovascular: regularly irregular Abdomen: no organomegaly Skin: no rash Laboratory Tests Test 12/07/16 12:10 12/08/16 05:00 Arterial Blood pH 7.423 (7.350-7.450) Arterial Blood Partial Pressure CO2 46.4 mmHg (35.0-45.0) H Arterial Blood Partial Pressure O2 55.3 mmHg (75.0-100.0) L Arterial Blood HCO3 29.6 mmol/L (22.0-26.0) H Arterial Blood Oxygen Saturation 86.3 % (92.0-98.0) L Arterial Blood Base Excess 4.6 Best Test Positive White Blood Count 5.2 K/UL (4.8-10.8) Red Blood Count 3.13 M/UL (4.20-5.40) L Hemoglobin 9.0 G/DL (12.0-16.0) L Hematocrit 29.3 % (37.0-47.0) L Mean Corpuscular Volume 94 FL (80-99) Mean Corpuscular Hemoglobin 28.7 PG (27.0-31.0) Mean Corpuscular Hemoglobin Concent 30.6 G/DL (32.0-36.0) L Red Cell Distribution Width 17.4 % (11.6-14.8) H Platelet Count 212 K/UL (150-450) Mean Platelet Volume 9.5 FL (6.5-10.1) Neutrophils (%) (Auto) 64.1 % (45.0-75.0) Lymphocytes (%) (Auto) 12.7 % (20.0-45.0) L Monocytes (%) (Auto) 11.1 % (1.0-10.0) H Eosinophils (%) (Auto) 11.3 % (0.0-3.0) H Basophils (%) (Auto) 0.9 % (0.0-2.0) Sodium Level 142 mEQ/L (135-145) Potassium Level 3.6 mEQ/L (3.4-4.9) Chloride Level 100 mEQ/L (98-107) Carbon Dioxide Level 31 mEQ/L (20-30) H Anion Gap 11 (5-15) Blood Urea Nitrogen 9 mg/dL (7-23) Creatinine 0.4 mg/dL (0.5-0.9) L Estimat Glomerular Filtration Rate mL/min (>60) Glucose Level 121 mg/dL (74-106) H Calcium Level 9.9 mg/dL (8.6-10.2) Phosphorus Level 2.8 mg/dL (2.5-4.8) Magnesium Level 1.6 mg/dL (1.7-2.5) L Total Bilirubin 0.2 mg/dL (0.0-1.2) Aspartate Amino Transf (AST/SGOT) 36 U/L (5-40) Alanine Aminotransferase (ALT/SGPT) 34 U/L (3-33) H Alkaline Phosphatase 257 U/L (35-104) H Total Protein 7.2 g/dL (6.6-8.7) Albumin 3.0 g/dL (3.5-5.2) L Globulin 4.2 g/dL Albumin/Globulin Ratio 0.7 (1.0-2.7) L Current Medications Medications (Trade) Dose Ordered Sig/Boubacar Route PRN Reason Start Time Stop Time Status Last Admin Dose Admin Acetaminophen (Tylenol) 650 mg Q4H PRN ORAL FEVER 12/04/16 21:00 01/03/17 20:59 Albuterol/ Ipratropium (DuoNeb 0.5-3(2.5)mg/3ml) 3 ml EVERY 4 HOURS PRN HHN Shortness of Breath 12/04/16 21:00 12/09/16 20:59 Cefepime HCl/ Sodium Chloride (Maxipime/Sodium Chloride) 110 ml @ 220 mls/hr EVERY 12 HOURS IVPB 12/08/16 21:00 12/11/16 20:59 Dextrose (Dextrose 50%) STAT PRN IV Hypoglycemia 12/04/16 21:00 01/03/17 20:59 Heparin Sodium (Porcine) (Heparin 5000 units/ml) 5,000 units EVERY 12 HOURS SUBQ 12/04/16 21:00 01/03/17 20:59 12/08/16 08:59 Levetiracetam 1500 mg 1,500 mg TWICE A DAY GT 12/08/16 18:00 01/07/17 17:59 Levothyroxine Sodium (Synthroid) 25 mcg DAILY GT 12/05/16 09:00 01/04/17 08:59 12/08/16 08:51 Linezolid (Zyvox) 300 ml @ 300 mls/hr Q12HR IVPB 12/07/16 21:00 12/14/16 20:59 12/08/16 08:50 Lorazepam (Ativan 2mg/ml 1ml) 2 mg EVERY 2 HOURS PRN IV For Anxiety 12/04/16 21:00 12/11/16 20:59 Morphine Sulfate (Morphine Sulfate) 4 mg EVERY 4 HOURS PRN IVP Severe Pain (Pain Scale 7-10) 12/04/16 21:00 12/11/16 20:59 Nystatin 1 applic 1 applic THREE TIMES A DAY TOPIC 12/05/16 18:00 01/04/17 17:59 12/08/16 09:00 Ondansetron HCl (Zofran) 4 mg Q6H PRN IVP Nausea & Vomiting 12/04/16 21:00 01/03/17 20:59 Pantoprazole (Protonix) 40 mg DAILY IVP 12/06/16 09:00 01/05/17 08:59 12/08/16 08:50 Phenytoin 150 mg 150 mg BID GT 12/05/16 09:00 01/04/17 08:59 12/08/16 08:51 Polyethylene Glycol (Miralax) 17 gm DAILYPRN PRN ORAL Constipation 12/04/16 21:00 01/03/17 20:59 Sodium Chloride (0.45% NS 1000ml) 1,000 ml @ 75 mls/hr [id number] IV 12/04/16 22:50 01/03/17 22:49 12/08/16 06:39 Vitamin A/Vitamin D (A & D Oint) 1 applic EVERY 12 HOURS TOPIC 12/05/16 21:00 01/04/17 20:59 12/08/16 08:51 HUNG GARCIA M.D. Dec 08, 2016 10:56
[2016-12-08] MEDS ORDERED: DuoNeb 0.5-3(2.5)mg/3ml neb HHN PRN (13:00)
[2016-12-08] MEDS ORDERED: Morphine Sulfate 4mg/ml Inj IVP PRN (13:00)
[2016-12-08] MEDS ORDERED: LORazepam Inj 2mg/ml 1ml IV PRN (14:00)
[2016-12-08] MEDS ORDERED: Tubing IV Secondary IV ONE (16:39)
[2016-12-08] MEDS ORDERED: Sterile Water Irrig 1000ml IRRIG ONE (16:39)
[2016-12-08] MEDS ORDERED: 1/2 NS 1000ml IV ONE (16:39)
[2016-12-08] MEDS ORDERED: levETIRAcetam 500mg/5ml Liquid GT SCH (18:00)
[2016-12-08] MEDS: levETIRAcetam 500mg/5ml Liquid GT SCH (18:12)
[2016-12-08] MEDS ORDERED: Miralax 17gm pkt ORAL PRN (21:00)
[2016-12-08] MEDS ORDERED: Cefepime HCl 1 GM in NS 110 ML IVPB SCH (21:00)
[2016-12-08] MEDS: Cefepime HCl 1 GM in NS 110 ML IVPB SCH (21:21)
[2016-12-09 00:36] VITALS: BP 109/53
[2016-12-09 04:43] VITALS: BP 108/57
[2016-12-09 07:52] VITALS: BP 121/59
[2016-12-09] MEDS ORDERED: Pantoprazole Inj IVP SCH (09:00)
[2016-12-09] MEDS ORDERED: Levothyroxine 25mcg tab GT SCH (09:00)
[2016-12-09] MEDS: Heparin 5000 units/ml inj SUBQ SCH (09:57)
[2016-12-09] MEDS: levETIRAcetam 500mg/5ml Liquid GT SCH (10:03)
[2016-12-09] MEDS: Cefepime HCl 1 GM in NS 110 ML IVPB SCH (10:05)
[2016-12-09] MEDS: Phenytoin 50mg tab GT SCH (10:05)
[2016-12-09] MEDS: Nystatin Powder 100,000 units/gm 15gm TOPIC SCH (10:06)
[2016-12-09] MEDS: Vitamin A&D Oint 2oz Tube TOPIC SCH (10:07)
--- NOTE | 2016-12-09 11:45 | Pulmonology Progress Note ---
Assessment/Plan Problems: (1) Septic shock (2) Chronic respiratory failure (3) Anoxic brain damage syndrome (4) Feeding by G-tube (5) Seizure Respiratory: monitor respiratory rate, adjust FIO2 Cardiac: continue to monitor HR/BP Renal: F/U I&O, keep IV fluid, check electrolytes Infectious Disease: continue antibiotics Gastrointestinal: continue feedings/current rate Endocrine: monitor blood sugar, check HgA1C Neurologic: PRN Ativan Prophylaxis: Protonix 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: cardio, ID Discussed with: nurses, consultants, rifle case repairer Subjective ROS Limited/Unobtainable: Yes Allergies: Coded Allergies: PEANUT (Verified Allergy, Unknown, 09/22/16) Objective Last 24 Hour Vital Signs Date Time Temp Pulse Resp B/P Pulse Ox O2 Delivery O2 Flow Rate FiO2 12/09/16 09:21 91 19 40 12/09/16 08:00 88 12/09/16 07:55 40 12/09/16 07:52 97.3 88 23 121/59 98 Mechanical Ventilator 40 12/09/16 07:42 87 22 40 12/09/16 05:26 88 19 40 12/09/16 04:43 98.2 88 24 108/57 100 Mechanical Ventilator 40 12/09/16 04:02 89 12/09/16 04:00 40 12/09/16 03:28 86 21 40 12/09/16 01:02 89 21 40 12/09/16 00:36 98.1 94 24 109/53 98 Mechanical Ventilator 40 12/09/16 00:00 40 12/08/16 23:46 93 12/08/16 23:20 82 27 40 12/08/16 21:10 88 30 40 12/08/16 20:00 88 12/08/16 20:00 98.3 88 18 106/59 98 Mechanical Ventilator 40 12/08/16 20:00 40 12/08/16 19:29 89 29 40 12/08/16 17:08 93 15 40 12/08/16 16:00 40 12/08/16 16:00 98.2 90 24 136/65 98 Mechanical Ventilator 40 12/08/16 16:00 87 12/08/16 15:12 89 25 40 12/08/16 13:26 90 30 40 12/08/16 12:00 90 12/08/16 12:00 40 12/08/16 12:00 98.9 98 20 129/64 100 Mechanical Ventilator 40 12/08/16 12:00 98 Intake and Output 12/08/16 12/09/16 19:00 07:00 Intake Total 2055 ml 1420 ml Output Total 370 ml 1200 ml Balance 1685 ml 220 ml Free Water 200 ml 50 ml IV Total 1085 ml 1160 ml Tube Feeding 770 ml 210 ml Output Urine Total 370 ml 1200 ml Stool Total 0 ml Other 0 ml # Bowel Movements 1 General Appearance: WD/WN HEENT: normocephalic, atraumatic Respiratory/Chest: chest wall non-tender, lungs clear Cardiovascular: normal peripheral pulses, normal rate Abdomen: normal bowel sounds, soft, non tender Extremities: no cyanosis, no clubbing Current Medications Medications (Trade) Dose Ordered Sig/Boubacar Route PRN Reason Start Time Stop Time Status Last Admin Dose Admin Acetaminophen (Tylenol) 650 mg Q4H PRN ORAL FEVER 12/08/16 13:00 01/07/17 12:59 Albuterol/ Ipratropium (DuoNeb 0.5-3(2.5)mg/3ml) 3 ml EVERY 4 HOURS PRN HHN Shortness of Breath 12/08/16 13:00 12/13/16 12:59 Cefepime HCl 1 gm/ Sodium Chloride 110 ml @ 220 mls/hr EVERY 12 HOURS IVPB 12/08/16 21:00 12/15/16 20:59 12/09/16 10:05 Dextrose (Dextrose 50%) STAT PRN IV Hypoglycemia 12/08/16 21:00 01/07/17 20:59 Heparin Sodium (Porcine) (Heparin 5000 units/ml) 5,000 units EVERY 12 HOURS SUBQ 12/08/16 21:00 01/07/17 20:59 12/09/16 09:57 Levetiracetam (Keppra) 1,500 mg TWICE A DAY GT 12/08/16 18:00 01/07/17 17:59 12/09/16 10:03 Levothyroxine Sodium (Synthroid) 25 mcg DAILY GT 12/09/16 09:00 01/08/17 08:59 12/09/16 10:06 Linezolid (Zyvox) 300 ml @ 300 mls/hr Q12HR IVPB 12/08/16 21:00 12/15/16 20:59 12/09/16 10:04 Lorazepam (Ativan 2mg/ml 1ml) 2 mg EVERY 2 HOURS PRN IV For Anxiety 12/08/16 14:00 12/15/16 13:59 Morphine Sulfate (Morphine Sulfate) 4 mg EVERY 4 HOURS PRN IVP Severe Pain (Pain Scale 7-10) 12/08/16 13:00 12/15/16 12:59 Nystatin (Nystop Powder) 1 applic THREE TIMES A DAY TOPIC 12/08/16 13:00 01/07/17 12:59 12/09/16 10:06 Ondansetron HCl (Zofran) 4 mg Q6H PRN IVP Nausea & Vomiting 12/08/16 15:00 01/07/17 14:59 Pantoprazole (Protonix) 40 mg DAILY IVP 12/09/16 09:00 01/08/17 08:59 12/09/16 09:55 Phenytoin (Dilantin) 150 mg BID GT 12/08/16 18:00 01/07/17 17:59 12/09/16 10:05 Polyethylene Glycol (Miralax) 17 gm DAILYPRN PRN ORAL Constipation 12/08/16 21:00 01/07/17 20:59 Sodium Chloride 1,000 ml @ 75 mls/hr [id number] IV 12/08/16 12:30 01/07/17 12:29 12/08/16 21:23 Vitamin A/Vitamin D (A & D Oint) 1 applic EVERY 12 HOURS TOPIC 12/08/16 21:00 01/07/17 20:59 12/09/16 10:07 ANGELA DAVILA Dec 09, 2016 11:45
[2016-12-09 11:57] VITALS: BP 134/68
[2016-12-09] MEDS ORDERED: Tubing IV Secondary IV ONE (12:39)
[2016-12-09] MEDS ORDERED: 1/2 NS 1000ml IV ONE (12:39)
--- NOTE | 2016-12-12 13:20 | Discharge Summary ---
Discharge Summary Hospital Course Date of Admission Dec 04, 2016 at 18:13 Date of Discharge Dec 09, 2016 at 12:40 Admitting Diagnosis severe sepsis, right LL pneumonia HPI Kate Donovan is a 76 year old female who was admitted on Dec 04, 2016 at 18: 13 for Severe Sepsis,Right Ll Pneumonia Hospital Course dc summary # [id number] Discharge Medications New Medications: Amoxicillin (Amoxicillin) 125 Mg/5 Ml Susp.recon 125 MG ORAL EVERY 8 HOURS for 7 Days, ML Ertapenem (Invanz) 1 Gm Vial 1 GM IM DAILY for 7 Days, VIAL Continued Medications: Docusate Sodium* (Colace*) 100 Mg Capsule 100 MG GT TWICE A DAY, CAP Hydrocodone Bit/Acetaminophen 5-325* ([place] 5-325 Tablet*) 1 Each Tablet 1 TAB GT Q4H PRN for For Pain, TAB Ipratropium/Albuterol Sulfate (DuoNeb 0.5-3(2.5)mg/3ml) 3 Ml Ampul.neb 3 ML HHN EVERY 8 HOURS, EA Levetiracetam* (Levetiracetam*) 500 Mg Tablet 1500 MG GT TWICE A DAY, #60 TAB 0 Refills Levothyroxine Sodium* (Levothyroxine Sodium*) 25 Mcg Tablet 25 MCG GT DAILY, TAB Take in the morning on an empty stomach, at least 30 minutes before food. Phenytoin (Dilantin) 50 Mg Tab.chew 150 MG GT BID, #90 TAB 0 Refills Discharge Condition Upon Discharge: stable Discharge Disposition Patient was discharged to subacute assisted facility Discharge Diagnoses: Discharge Instructions Discharge Instructions Special Instructions I have been assigned to complete a D/C Summary on this account. I was not involved in the patient management Libby Collins NP ([facility]te[facility]) Dec 12, 2016 13:20
--- NOTE | 2016-12-13 01:58 | Discharge Summary 2 SIG ---
DATE OF ADMISSION: 12/04/2016 DATE OF DISCHARGE: 12/09/2016 REASON FOR ADMISSION : 76-year-old female with multiple chronic comorbidities including ventilator-dependent respiratory failure, tracheostomy, dysphagia, anoxic encephalopathy, and seizure disorder, presented to the emergency room by the paramedics with fever and difficulty breathing. The patient had a fever of 102.0 degrees. The patient was tachypneic and tachycardiac with respiratory rate of 24 and heart rate of 114. Laboratory workup revealed leukocytosis with white blood cell count of 25.5. The patient was with mild anemia: hemoglobin -10.9 and hematocrit -33.9. Chest x-ray revealed right base infiltrate, likely pneumonia. Urinalysis was positive for UTI. The patient was admitted for further management. ADMITTING DIAGNOSES: 1. Sepsis. 2. Urinary tract infection. 3. Pneumonia. 4. Ventilator-dependent respiratory failure. 5. Tracheostomy. 6. Chronic anoxic encephalopathy. HOSPITAL STAY: The patient was admitted to [facility]. The patient was started on IV fluids as well as empiric antibiotic. ID followed. ABG revealed evidence of hypoxemia on current settings. FiO2 was increased to 40%. Pulmonary toilet, ventilator care, and tracheostomy care provided as needed. Blood culture were negative. Urine culture revealed VRE and Citrobacter. Influenza screen was negative. Sputum culture was not collected. Per Infectious Disease doctor, continue IV antibiotic, while in the hospital, and change for one more week, Invanz and amoxicillin, when discharged. Chest x-ray on 12/07/2016 revealed improvement in right basal infiltrate over three days. Wound culture revealed E. coli, ESBL, MRSA, Providencia, and Acinetobacter , likely colonization. No gross evidence of infection. Wound care nurse had seen the patient. Local wound care was provided as per wound care nurse recommendations. Strict aspiration precautions were maintained. The patient was able to tolerate tube feeding. Seizure precaution were maintained. No seizure activity while in the hospital. Noted elevated LFT. Subsequently, abdominal ultrasound was done, which revealed cholelithiasis, but no dilated ducts ,positive for mild hepatomegaly. Venous Duplex of bilateral lower extremities was negative. Continue Keppra and Dilantin. Bowel regimen instituted. DVT and GI prophylaxis provided. On the next day, after admission, the patient was noted to have a low blood pressure at 85/42. The patient was on the IV fluids, rate was increased. No need for pressors. Blood pressure improved with the volume repletion. Hypotension was likely secondary to dehydration and volume depletion. Blood pressure improved with volume repletion. Leukocytosis resolved. Hemoglobin and hematocrit with small trend down. No evidence of overt bleeding. The patient was stable for discharge. DISCHARGE DIAGNOSES: 1. Sepsis. 2. Septic shock. 3. Urinary tract infection/Vancomycin-resistant enterococcus, Citrobacter. 4. Pneumonia/Healthcare-associated versus aspiration. 5. Acute hypoxemic on chronic respiratory failure. 6. Ventilator-dependent respiratory failure with tracheostomy status. 7. Chronic anoxic encephalopathy. 8. Dysphagia/gastrostomy tube. 9. Sacral decubitus, un-stageable, present on admission. 10. Elevated liver function tests. 11. Cholelithiasis. 12. Seizure disorder. DISCHARGE MEDICATIONS: See medication reconciliation list. Continue antibiotics for one week as recommended by ID. DISCHARGE INSTRUCTIONS: [facility] Follow up with medical doctor and bog cutter at the facility. Savi Rodriguez M.D. I have been assigned to dictate discharge summary on this account and I was not involved in the patient's management. Libby Collins (Vanchtein) N.P. DR: Promise JOB#: [id number] CC: ROMINA
== END 2016-12-09 12:40 | DRG 870 ==
LOC: EDBD 16:10 → EMR 18:10 → ICU 18:13 → EDBEDREQSVC 21:17 → EDBEDREQ 22:32 → 2W 12-08 12:20
PROC: 5A1955Z Respiratory Ventilation, Greater than 96 Consecutive Hours (ICD-10-PCS; principal; 2016-12-04)
DX: A41.9 Sepsis, unspecified organism (principal); J18.9 Pneumonia, unspecified organism; R65.21 Severe sepsis with septic shock; Z99.11 Dependence on respirator [ventilator] status; G93.1 Anoxic brain damage, not elsewhere classified; G93.40 Encephalopathy, unspecified; J96.10 Chronic respiratory failure, unspecified whether with hypoxia or hypercapnia; G40.909 Epilepsy, unspecified, not intractable, without status epilepticus; N39.0 Urinary tract infection, site not specified; Z68.41 Body mass index [BMI] 40.0-44.9, adult; Z93.0 Tracheostomy status; Z93.1 Gastrostomy status; E66.01 Morbid (severe) obesity due to excess calories; B96.5 Pseudomonas (aeruginosa) (mallei) (pseudomallei) as the cause of diseases classified elsewhere; Z85.3 Personal history of malignant neoplasm of breast
CPT/HCPCS: 36415; 36600; 71010; 76700; 80053; 80069; 80299; 81003; 82550; 82553; 82803; 83605; 83735; 84100; 84484; 85007; 85025; 86710; 87040; 87070; 87081; 87086; 87181; 87205; 93005; 93970; 94002; 94003; 94664

== ENCOUNTER 2017-02-02 09:04 | Inpatient (IN) | payer OTHER, MEDICAID ==
[~2017-02-02] VITALS: Ht 165.1 cm; Wt 117.9 kg
[~2017-02-02 09:04] MED LIST changes: +AMOXICILLI125 MG/5 M ORAL; +ATIVAN1 MG GT; +CALCIPOTRIENE60 G1 TP; +DIPROLENE OI1 APPLIC TOPIC; +MAG-OXIDE400 M1 GT; +MOM30 ML ORAL
[2017-02-02] MEDS ORDERED: DILANTIN100 MG GT (09:20)
[2017-02-02] MEDS ORDERED: FERROUS SULFAT325 MG GT (09:24)
[2017-02-02] MEDS ORDERED: BISACODYL5 MG RECTAL (09:24)
[2017-02-02] MEDS ORDERED: LETROZOLE2.5 MG GT (09:24)
[2017-02-02] MEDS ORDERED: FLEET ENEMA133 ML RECTAL (09:24)
[2017-02-02] MEDS ORDERED: LEVETIRACE500 MG/51 GT (09:27)
[2017-02-02] MEDS ORDERED: MILK OF MA400 MG/51 GT (09:27)
[2017-02-02 09:32] LABS: MEAN CORPUSCULAR HEMOGLOBIN 29.3 PG (27.0-31.0); MEAN CORPUSCULAR HGB CONC 31.3 G/DL (32.0-36.0); MEAN CORPUSCULAR VOLUME 94 FL (80-99); MEAN PLATELET VOLUME 9.7 FL (6.5-10.1); PLATELET COUNT 255 K/UL (150-450); RED CELL DISTRIBUTION WIDTH 18.2 % (11.6-14.8)
[2017-02-02 09:42] VITALS: BP 100/49
[2017-02-02] MEDS ORDERED: NORCO 5-325 TA1 EACH GT ×3 (09:43→09:44)
[2017-02-02] MEDS ORDERED: PROMOD946 ML GT (09:44)
[2017-02-02] MEDS ORDERED: Piperacillin/Tazobactam 3.375 GM in NS 110 ML IVPB ONE (09:45)
[2017-02-02] MEDS ORDERED: UTI-STAT L3875 MG/31 GT (09:46)
[2017-02-02] MEDS ORDERED: ZINC SULFATE220 M1 GT (09:46)
[2017-02-02] MEDS ORDERED: VITAMIN C500 MG/11 GT (09:46)
[2017-02-02] MEDS ORDERED: VITAMIN D400 INTLU GT (09:46)
[2017-02-02 09:49] LABS: APPEARANCE,URINE CLEAR; KETONES,URINE NEGATIVE (NEGATIVE); LEUKOCYTE ESTERASE ,URINE 3+ (NEGATIVE); NITRITE,URINE NEGATIVE (NEGATIVE); PH,URINE 5 (4.5-8.0); PROTEIN,URINE 2+ (NEGATIVE); UROBILINOGEN,URINE NORMAL MG/DL (0.0-1.0)
[2017-02-02] MEDS ORDERED: Zosyn 3.375gm inj ONE (09:54)
--- NOTE | 2017-02-02 09:58 | Diagnostic Imaging Report ---
Indication: SOB Technique: One view of the chest Comparison: December 07, 2016 Findings: Tracheostomy remains. There is mild interstitial congestion and again demonstrated, similar in extent to the prior exam. The heart size is borderline enlarged. The pleural spaces are clear. Impression: Borderline cardiomegaly Mild interstitial congestion, similar in extent to prior study of December 2016
[2017-02-02 09:59] LABS: BACTERIA,URINE FEW /HPF; SQUAMOUS EPITHELIAL CELL,UR FEW /LPF (NONE/OCC); WBC,URINE 20-30 /HPF (0 - 2)
[2017-02-02 10:00] LABS: ALANINE AMINOTRANSFERASE 45 U/L (3-33); ALBUMIN/GLOBULIN RATIO 0.7 (1.0-2.7); ANION GAP 16 (5-15); ASPARTATE AMINO TRANSFERASE 85 U/L (5-40); CARBON DIOXIDE 29 mEQ/L (20-30); CHLORIDE 88 mEQ/L (98-107); CREATININE 0.6 mg/dL (0.5-0.9); HEMOLYSIS 51; LIPASE 10 U/L (< 60); POTASSIUM 4.7 mEQ/L (3.4-4.9); SODIUM 133 mEQ/L (135-145); TOTAL PROTEIN 8.5 g/dL (6.6-8.7)
[2017-02-02 10:08] LABS: TROPONIN I < 0.30 ng/mL (<=0.30)
[2017-02-02 10:18] LABS: CKMB < 1.5 ng/mL (< 3.8)
[2017-02-02 10:19] LABS: ANISOCYTOSIS 1+; BAND NEUTROPHILS % (MANUAL) 4 % (0-8); BASOPHILS % (MANUAL) 0 % (0-2); EOSINOPHILS % (MANUAL) 1 % (0-3); HYPOCHROMASIA 1+; LYMPHOCYTES % (MANUAL) 6 % (20-45); NEUTROPHILS % (MANUAL) 85 % (45-75); PLATELET ESTIMATE ADEQUATE; PLATELET MORPHOLOGY NORMAL; TOTAL CELLS COUNTED 100
--- NOTE | 2017-02-02 10:24 | Emergency Room Report ---
History of Present Illness General Chief Complaint: Dyspnea/Respdistress Source: Patient, Medical Record, EMS Present Illness HPI Patient presents by paramedics for complaints of shortness of breath Paramedics report the patient was found to be short of breath at the nursing facility Patient was given Ativan at that facility as well and brought to the emergency room Upon arrival the patient appears to be in acute distress Short of breath Patient is on tracheostomy with vent dependence Patient herself is nonverbal Unknown regarding fever Patient is chronically debilitated with feeding tube difficult neurological exam Allergies: Coded Allergies: PEANUT (Verified Allergy, Unknown, 09/22/16) Patient History Limited by: medical condition Past Medical History: see triage record Pertinent Family History: unable to obtain Reviewed Nursing Documentation: PMH: Agreed, PSxH: Agreed Nursing Documentation-PMH Past Medical History: No History, Except For Hx Cardiac Problems: Yes Hx Hypertension: Yes Hx COPD: Yes Hx Cancer: Yes Hx Gastrointestinal Problems: Yes - with peg Hx Neurological Problems: Yes Hx Cerebrovascular Accident: Yes Hx Seizures: Yes Hx Paralysis: Yes Hx Peripheral Neuropathy: Yes Hx Memory Loss: Yes Hx Concentration Difficulty: Yes Hx Speech Problem: Yes Hx Aphasia: Yes Hx Dysphasia: Yes Hx Weakness: Yes Review of Systems All Other Systems: limited - Other than the ones mentioned in the history of present illness all others are reviewed however they do stay limited due to the patient's mental status Physical Exam Vital Signs Date Time Temp Pulse Resp B/P Pulse Ox O2 Delivery O2 Flow Rate FiO2 02/02/17 09:00 134 30 160/102 Mechanical Ventilator 02/02/17 09:16 80 02/02/17 09:42 101.2 99 Sp02 EP Interpretation: reviewed, normal General Appearance: moderate distress - Upon arrival patient coughing appears to be having respiratory pathology Head: normocephalic, atraumatic Eyes: bilateral eye PERRL ENT: normal pharynx, no angioedema Neck: supple, thyroid normal, other - Tracheostomy in place no crepitus Respiratory: crackles - Diffusely in both upper and lower lobes, mild retractions initially Cardiovascular #1: tachycardia Gastrointestinal: soft, no mass Musculoskeletal: other - Patient chronically debilitated difficult exam at this time, patient does not appear to be moving towards physical stimuli Neurologic: other - Decreased GCS, patient is not moving towards physical stimuli not verbal Skin: no rash Lymphatic: no adenopathy Procedures Critical Care Time Critical Care Time 40 minutes for initial critical presentation Concern for respiratory failure Multiple re\re evaluations Not including any procedural time Medical Decision Making Diagnostic Impression: Primary Impression: CHF (congestive heart failure) Additional Impression: Acute and chronic respiratory failure ER Course Patient is a fairly complex patient with multiple differential to consideration including but not limited to cardiac cardiopulmonary and vascular emergencies Patient's imaging reveals evidence of congestion Urine sample is also positive for infection Patient was given antibiotics for the infection Patient does not meet severe sepsis criteria Lactic acid is normal Patient was also provided diuretic for the clinical finding and CHF And requires admission for further care Labs Test 02/02/17 09:15 02/02/17 09:30 White Blood Count 16.0 K/UL (4.8-10.8) Red Blood Count 4.00 M/UL (4.20-5.40) Hemoglobin 11.7 G/DL (12.0-16.0) Hematocrit 37.5 % (37.0-47.0) Mean Corpuscular Volume 94 FL (80-99) Mean Corpuscular Hemoglobin 29.3 PG (27.0-31.0) Mean Corpuscular Hemoglobin Concent 31.3 G/DL (32.0-36.0) Red Cell Distribution Width 18.2 % (11.6-14.8) Platelet Count 255 K/UL (150-450) Mean Platelet Volume 9.7 FL (6.5-10.1) Neutrophils (%) (Auto) % (45.0-75.0) Lymphocytes (%) (Auto) % (20.0-45.0) Monocytes (%) (Auto) % (1.0-10.0) Eosinophils (%) (Auto) % (0.0-3.0) Basophils (%) (Auto) % (0.0-2.0) Differential Total Cells Counted 100 Neutrophils % (Manual) 85 % (45-75) Lymphocytes % (Manual) 6 % (20-45) Monocytes % (Manual) 4 % (1-10) Eosinophils % (Manual) 1 % (0-3) Basophils % (Manual) 0 % (0-2) Band Neutrophils 4 % (0-8) Platelet Estimate Adequate Platelet Morphology Normal Hypochromasia 1+ Anisocytosis 1+ Prothrombin Time 10.0 SEC (9.30-11.50) Prothromb Time International Ratio 1.0 (0.9-1.1) Activated Partial Thromboplast Time 28 SEC (23-33) Sodium Level 133 mEQ/L (135-145) Potassium Level 4.7 mEQ/L (3.4-4.9) Chloride Level 88 mEQ/L (98-107) Carbon Dioxide Level 29 mEQ/L (20-30) Anion Gap 16 (5-15) Blood Urea Nitrogen 19 mg/dL (7-23) Creatinine 0.6 mg/dL (0.5-0.9) Estimat Glomerular Filtration Rate mL/min (>60) Glucose Level 142 mg/dL (74-106) Lactic Acid Level 1.80 mmol/L (0.66-2.22) Calcium Level 10.0 mg/dL (8.6-10.2) Total Bilirubin 0.4 mg/dL (0.0-1.2) Aspartate Amino Transf (AST/SGOT) 85 U/L (5-40) Alanine Aminotransferase (ALT/SGPT) 45 U/L (3-33) Alkaline Phosphatase 390 U/L (35-104) Total Creatine Kinase 32 U/L (26-140) Creatine Kinase MB < 1.5 ng/mL (< 3.8) Creatine Kinase MB Relative Index 4.6 Troponin I < 0.30 ng/mL (<=0.30) Pro-B-Type Natriuretic Peptide 273 pg/mL (0-450) Total Protein 8.5 g/dL (6.6-8.7) Albumin 3.5 g/dL (3.5-5.2) Globulin 5.0 g/dL Albumin/Globulin Ratio 0.7 (1.0-2.7) Lipase 10 U/L (< 60) Urine Color Yellow Urine Appearance Clear Urine pH 5 (4.5-8.0) Urine Specific [place] 1.020 (1.005-1.035) Urine Protein 2+ (NEGATIVE) Urine Glucose (UA) Negative (NEGATIVE) Urine Ketones Negative (NEGATIVE) Urine Occult Blood 2+ (NEGATIVE) Urine Nitrite Negative (NEGATIVE) Urine Bilirubin Negative (NEGATIVE) Urine Urobilinogen Normal MG/DL (0.0-1.0) Urine Leukocyte Esterase 3+ (NEGATIVE) Urine RBC 5-10 /HPF (0 - 2) Urine WBC 20-30 /HPF (0 - 2) Urine Squamous Epithelial Cells Few /LPF (NONE/OCC) Urine Bacteria Few /HPF (NONE) EKG Diagnostic Results Rate: tachycardiac Rhythm: other ST Segments: other - Nonspecific ST and T-wave changes Rhythm Strip Diag. Results EP Interpretation: yes Rate: 125 Rhythm: no PVC's, no ectopy, other - sinus tach Chest X-Ray Diagnostic Results EP Interpretation: Yes Findings: no pneumothorax, other - Borderline cardiomegaly, pulmonary congestion Number of Views: 1 Last Vital Signs Date Time Temp Pulse Resp B/P Pulse Ox O2 Delivery O2 Flow Rate FiO2 02/02/17 09:42 101.2 124 36 100/49 99 Mechanical Ventilator 80 Status: improved Disposition: ADMITTED INPATIENT Condition: Serious Referrals: ANGELA DAVILA (PCP) LAURA GEORGES D.O. Feb 02, 2017 10:24
[2017-02-02 10:37] VITALS: BP 97/56
[2017-02-02] MEDS ORDERED: Acetaminophen 650mg/20.3ml NG ONE (10:45)
--- NOTE | 2017-02-02 10:50 | Consultation ---
Consult Note Assessment/Plan ID Dic # [id number] A: 76 y/o female with: // Leukocytosis // Sepsis // Fever // Pna : prbale C-xray : RBl basilar infiltrate, likely pneumonia // Probable UTI Hx of Ucx: VRE and Citrobacter // Hx of KPC-K.pneumoniae bacteremia // Elevated LFTs r/o hepatobiliary disease - hepatitis panel negative Oct 2016, - f/u [facility] US : Cholelithiasis. Negative for dilated ducts // Chronic anoxic encephalopathy // Chronic VDRF SP trach, PEG // Seizure disorder // h/o breast CA // Morbid obesity PLAN: - continue Cefepime and Zyvox d# 1 ( 10/13 SP colistin d# 2 ) ( 10/12 SP IV vanco, zosyn d# 3 ) ( 09/27 SP IV zosyn d# 6 / 7 ) ( 09/26 SP IV Vanco d # 6 ) ( 09/23 SP amikacin d# 3 ) - f/u cultures ( Bl,Sp, Ur ) - monitor CBC, temperatures - monitor BMP - monitor CXR - vent support, trach care, aspiration precautions - seizure precautions HUNG GARCIA M.D. Feb 02, 2017 10:50
--- NOTE | 2017-02-02 11:25 | History and Physical ---
History of Present Illness General Date patient seen: Feb 02, 2017 Reason for Hospitalization: Dyspnea/Respdistress Present Illness HPI 76 year old female with hx of chronic trach/peg/vent/ bed bound intermediate resident presented by paramedics for complaints of shortness of breath Paramedics report the patient was found to be short of breath at the nursing facility Upon arrival to ER the patient appears to be in acute distress. she had a fever of 101 and admitted to [facility] for further evaluation. Allergies: Coded Allergies: PEANUT (Verified Allergy, Unknown, 09/22/16) Medication History Scheduled Amoxicillin (Amoxicillin), 125 MG ORAL EVERY 8 HOURS Bisacodyl* (Dulcolax*), 10 MG RECTAL PRN, (Reported) Cran/Vitc/Mannose/Inulin/Brom (Uti-Stat Liquid), 30 ML GT TWICE A DAY, (Reported ) Docusate Sodium* (Colace*), 100 MG GT TWICE A DAY, (Reported) Ertapenem (Invanz), 1 GM IM DAILY Ferrous Sulfate* (Ferrous Sulfate*), 7.5 ML GT DAILY, (Reported) Furosemide* (Lasix*), 20 MG GT DAILY, (Reported) Hydrocodone Bit/Acetaminophen 5-325* ([place] 5-325*), 1 TAB GT DAILY, (Reported) Ipratropium/Albuterol Sulfate (DuoNeb 0.5-3(2.5)mg/3ml), 3 ML HHN EVERY 8 HOURS, (Reported) Letrozole (Femara), 2.5 MG ORAL DAILY, (Reported) Letrozole (Letrozole), 2.5 MG GT DAILY, (Reported) Levetiracetam (Levetiracetam), 15 ML GT BID, (Reported) Levetiracetam* (Levetiracetam*), 1,500 MG GT TWICE A DAY, (Reported) Levothyroxine Sodium* (Levothyroxine Sodium*), 25 MCG GT DAILY, (Reported) Lorazepam* (Ativan*), 2 MG GT EVERY 4 HOURS, (Reported) Magnesium Hydroxide (Milk of Magnesia), 30 ML ORAL DAILY, (Reported) Magnesium Hydroxide* (Milk Of Magnesia*), 30 ML GT PRN, (Reported) Meropenem (Meropenem), 1 GM IV EVERY 2 HOURS Na Phos,M-B/Na Phos,Di-Ba* (Fleet Enema*), 133 ML RECTAL DAILY, (Reported) Phenytoin (Dilantin), 150 MG GT BID, (Reported) Phenytoin Sodium Extended* (Dilantin*), 300 MG GT BID, (Reported) Mvbynwvbxykl-Vmsp-Eknlpcke,Iso (Zosyn 3.375 Gm Pre Mix-Bag), 3.375 GM IVPB EVERY 8 HOURS Protein Supplement (Promod), 30 ML GT THREE TIMES A DAY, (Reported) Tigecycline (Tygacil), 50 MG IVPB EVERY 12 HOURS Vit C/Ascorbate Ca/Ascorb Sod (Vitamin C 500 Mg/15 Ml Liquid), 5 ML GT DAILY, ( Reported) Vitamin D (Vitamin D3), 2,000 UNITS GT DAILY, (Reported) Vitamin D (Vitamin D3), 2,000 UNITS GT DAILY, (Reported) Zinc Sulfate (Zinc Sulfate*), 220 MG GT DAILY, (Reported) Scheduled PRN Acetaminophen (Acetaminophen), 650 MG GT Q6H PRN for Prn Headache/Temp > 101, ( Reported) Hydrocodone Bit/Acetaminophen 5-325* ([place] 5-325 Tablet*), 1 TAB GT Q4H PRN for For Pain, (Reported) Hydrocodone Bit/Acetaminophen 5-325* ([place] 5-325*), 1 TAB GT BEDTIME PRN for For Pain, (Reported) Hydrocodone Bit/Acetaminophen 5-325* ([place] 5-325*), 1 TAB GT Q4H PRN for For Pain, (Reported) Miscellaneous Medications Bisacodyl (Bisacodyl), 10 MG RC, (Reported) Ferrous Sulfate (Iron), 325 MG GT, (Reported) Magnesium Oxide (Mag-Oxide), 300 MG GT, (Reported) Nitroglycerin (Nitrostat), 0.4 MG SL, (Reported) Patient History Healthcare decision maker Resuscitation status Advanced Directive on File Past Medical/Surgical History Past Medical/Surgical History: (1) Feeding by G-tube (2) Chronic respiratory failure (3) Vegetative state Review of Systems All Other Systems: negative except mentioned in HPI Physical Exam General Appearance: WD/WN, no apparent distress Lines, tubes and drains: peripheral HEENT: normocephalic, atraumatic Neck: non-tender, normal alignment Respiratory/Chest: chest wall non-tender, lungs clear Breasts: no masses Cardiovascular/Chest: normal peripheral pulses, normal rate Abdomen: normal bowel sounds Genitourinary/Rectal: normal genital exam, normal rectal exam Extremities: normal range of motion, non-tender Skin Exam: normal pigmentation 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 grossly normal Last 24 Hour Vital Signs Date Time Temp Pulse Resp B/P Pulse Ox O2 Delivery O2 Flow Rate FiO2 02/02/17 11:03 101.3 114 26 97/56 99 Mechanical Ventilator 80 02/02/17 10:51 115 26 80 02/02/17 10:37 101.3 114 28 97/56 99 Mechanical Ventilator 80 02/02/17 09:42 101.2 124 36 100/49 99 Mechanical Ventilator 80 02/02/17 09:42 124 33 Mechanical Ventilator 99 02/02/17 09:16 132 36 80 02/02/17 09:00 134 30 160/102 Mechanical Ventilator Laboratory Tests Test 02/02/17 09:15 02/02/17 09:30 White Blood Count 16.0 K/UL (4.8-10.8) H Red Blood Count 4.00 M/UL (4.20-5.40) L Hemoglobin 11.7 G/DL (12.0-16.0) L Hematocrit 37.5 % (37.0-47.0) Mean Corpuscular Volume 94 FL (80-99) Mean Corpuscular Hemoglobin 29.3 PG (27.0-31.0) Mean Corpuscular Hemoglobin Concent 31.3 G/DL (32.0-36.0) L Red Cell Distribution Width 18.2 % (11.6-14.8) H Platelet Count 255 K/UL (150-450) Mean Platelet Volume 9.7 FL (6.5-10.1) Neutrophils (%) (Auto) % (45.0-75.0) Lymphocytes (%) (Auto) % (20.0-45.0) Monocytes (%) (Auto) % (1.0-10.0) Eosinophils (%) (Auto) % (0.0-3.0) Basophils (%) (Auto) % (0.0-2.0) Differential Total Cells Counted 100 Neutrophils % (Manual) 85 % (45-75) H Lymphocytes % (Manual) 6 % (20-45) L Monocytes % (Manual) 4 % (1-10) Eosinophils % (Manual) 1 % (0-3) Basophils % (Manual) 0 % (0-2) Band Neutrophils 4 % (0-8) Platelet Estimate Adequate Platelet Morphology Normal Hypochromasia 1+ Anisocytosis 1+ Prothrombin Time 10.0 SEC (9.30-11.50) Prothromb Time International Ratio 1.0 (0.9-1.1) Activated Partial Thromboplast Time 28 SEC (23-33) Sodium Level 133 mEQ/L (135-145) L Potassium Level 4.7 mEQ/L (3.4-4.9) Chloride Level 88 mEQ/L (98-107) L Carbon Dioxide Level 29 mEQ/L (20-30) Anion Gap 16 (5-15) H Blood Urea Nitrogen 19 mg/dL (7-23) Creatinine 0.6 mg/dL (0.5-0.9) Estimat Glomerular Filtration Rate mL/min (>60) Glucose Level 142 mg/dL (74-106) H Lactic Acid Level 1.80 mmol/L (0.66-2.22) Calcium Level 10.0 mg/dL (8.6-10.2) Total Bilirubin 0.4 mg/dL (0.0-1.2) Aspartate Amino Transf (AST/SGOT) 85 U/L (5-40) H Alanine Aminotransferase (ALT/SGPT) 45 U/L (3-33) H Alkaline Phosphatase 390 U/L (35-104) H Total Creatine Kinase 32 U/L (26-140) Creatine Kinase MB < 1.5 ng/mL (< 3.8) Creatine Kinase MB Relative Index 4.6 Troponin I < 0.30 ng/mL (<=0.30) Pro-B-Type Natriuretic Peptide 273 pg/mL (0-450) Total Protein 8.5 g/dL (6.6-8.7) Albumin 3.5 g/dL (3.5-5.2) Globulin 5.0 g/dL Albumin/Globulin Ratio 0.7 (1.0-2.7) L Lipase 10 U/L (< 60) Urine Color Yellow Urine Appearance Clear Urine pH 5 (4.5-8.0) Urine Specific [place] 1.020 (1.005-1.035) Urine Protein 2+ (NEGATIVE) H Urine Glucose (UA) Negative (NEGATIVE) Urine Ketones Negative (NEGATIVE) Urine Occult Blood 2+ (NEGATIVE) H Urine Nitrite Negative (NEGATIVE) Urine Bilirubin Negative (NEGATIVE) Urine Urobilinogen Normal MG/DL (0.0-1.0) Urine Leukocyte Esterase 3+ (NEGATIVE) H Urine RBC 5-10 /HPF (0 - 2) H Urine WBC 20-30 /HPF (0 - 2) H Urine Squamous Epithelial Cells Few /LPF (NONE/OCC) Urine Bacteria Few /HPF (NONE) Height (Feet): 5 Height (Inches): 5.00 Weight (Pounds): 260 Medications Current Medications Medications (Trade) Dose Ordered Sig/Boubacar Route PRN Reason Start Time Stop Time Status Last Admin Dose Admin Acetaminophen (Tylenol) 650 mg Q4H PRN ORAL FEVER>100.5 02/02/17 11:30 03/04/17 11:29 Albuterol/ Ipratropium (DuoNeb 0.5-3(2.5)mg/3ml) 3 ml Q4H PRN HHN Shortness of Breath 02/02/17 11:30 02/07/17 11:29 Cefepime HCl/ Dextrose (Maxipime/D5W) 110 ml @ 220 mls/hr EVERY 12 HOURS IVPB 02/02/17 14:00 02/09/17 13:59 Dextrose STAT PRN IV Hypoglycemia 02/02/17 11:30 03/04/17 11:29 Heparin Sodium (Porcine) (Heparin 5000 units/ml) 5,000 units EVERY 12 HOURS SUBQ 02/02/17 21:00 03/04/17 20:59 Linezolid 300 ml @ 300 mls/hr Q12HR IVPB 02/02/17 13:00 02/09/17 12:59 Lorazepam (Ativan 2mg/ml 1ml) 2 mg Q2H PRN IV For Anxiety 02/02/17 11:30 02/09/17 11:29 Morphine Sulfate (Morphine Sulfate) 4 mg Q4H PRN IVP Severe Pain (Pain Scale 7-10) 02/02/17 11:30 02/09/17 11:29 Ondansetron HCl (Zofran) 4 mg Q6H PRN IVP Nausea & Vomiting 02/02/17 11:30 03/04/17 11:29 Pantoprazole 40 mg 40 mg DAILY IV 02/03/17 09:00 03/05/17 08:59 Piperacillin Sod/ Tazobactam Sod/ Sodium Chloride (Zosyn/Sodium Chloride) 110 ml @ 27.5 mls/hr Q8HR IVPB 02/02/17 14:00 02/09/17 13:59 Polyethylene Glycol (Miralax) 17 gm DAILYPRN PRN ORAL Constipation 02/02/17 11:30 03/04/17 11:29 Assessment/Plan Problem List: (1) Acute and chronic respiratory failure ICD Codes: J96.20 - Acute and chronic respiratory failure, unspecified whether with hypoxia or hypercapnia SNOMED: 97534771, 00571609 (2) Septic shock ICD Codes: A41.9 - Sepsis, unspecified organism; R65.21 - Severe sepsis with septic shock SNOMED: 84355646 (3) Anoxic brain damage syndrome ICD Codes: G93.1 - Anoxic brain damage, not elsewhere classified SNOMED: 891177107 (4) Feeding by G-tube ICD Codes: Z93.1 - Gastrostomy status SNOMED: 034580938, 323619955 (5) Vegetative state ICD Codes: R40.3 - Persistent vegetative state SNOMED: 94357438, 908932728 Assessment/Plan IV abx respiratory treatment check sputum and blood cultures dvt prophylaxis symptomatic treatment ANGELA DAVILA Feb 02, 2017 11:25
[2017-02-02] MEDS ORDERED: DuoNeb 0.5-3(2.5)mg/3ml neb HHN PRN (11:30)
[2017-02-02] MEDS ORDERED: LORazepam Inj 2mg/ml 1ml IV PRN (11:30)
[2017-02-02] MEDS ORDERED: Morphine Sulfate 4mg/ml Inj IVP PRN (11:30)
[2017-02-02] MEDS ORDERED: Miralax 17gm pkt ORAL PRN (11:30)
[2017-02-02 12:00] VITALS: BP 93/50
[2017-02-02] MEDS ORDERED: Cefepime HCl 2 GM in D5W 110 ML IVPB SCH (13:00)
[2017-02-02] MEDS ORDERED: Piperacillin/Tazobactam 3.375 GM in NS 110 ML IVPB SCH (14:00)
[2017-02-02 16:16] VITALS: BP 110/63
--- NOTE | 2017-02-02 17:15 | Consultation ---
DATE OF CONSULTATION: 02/02/2017 INFECTIOUS DISEASES CONSULTATION CONSULTING PHYSICIAN: Delmer Madera M.D. REFERRING PHYSICIAN: Savi Rodriguez M.D. REASON FOR CONSULTATION: Evaluation of the patient for sepsis and antibiotics management. HISTORY OF PRESENT ILLNESS: The patient is a 76-year-old female who is well known to our service from prior admission was brought to the hospital by paramedics due to the shortness of breath. The patient was found to have leukocytosis, possible sepsis and the patient will be admitted to [facility]. Infectious Disease consultation has been requested for further evaluation of the patient antibiotic management. PAST MEDICAL HISTORY: 1. History of recent pneumonia. 2. History of UTI due to VRE and Citrobacter. 3. History of anoxic encephalopathy. 4. Status post trach and PEG placement. 5. Ventilator-dependent respiratory failure. 6. Seizure disorder. 7. History of breast cancer. 8. History of obesity. ALLERGIES: No known drug allergies. SOCIAL HISTORY: The patient lives in a half-way. FAMILY HISTORY: Not available. REVIEW OF SYSTEMS: Unobtainable. PHYSICAL EXAMINATION: VITAL SIGNS: Temperature 101.3 degrees, pulse 100, respiratory rate 28, and blood pressure 97/56. HEENT: Mild pale conjunctivae. No icterus. NECK: No lymphadenopathy. CHEST: Coarse breathing sounds. HEART: S1 and S2. ABDOMEN: Soft and obese. PEG tube in place. EXTREMITIES: No cyanosis. NEUROLOGIC: Nonverbal. LABORATORY AND DIAGNOSTIC DATA: WBC 16, hemoglobin 11, and platelets 255,000. UA show white blood cells 20, BUN 19, and creatinine 0.6. ASSESSMENT: The patient is a 76-year-old female with multiple medical problems who has been admitted to the medical center with sepsis, leukocytosis, pyuria, possible underlying pneumonia with consolidation. Chest x-ray showed bilateral infiltrates. The patient would benefit from broad-spectrum antibiotics in view of having with multiple drug-resistant organisms, information from cultures done. PLAN: 1. We will start the patient on cefepime and Zyvox. 2. Monitor CBC and BMP. 3. Monitor cultures (blood, sputum and urine). 4. Monitor chest x-ray. 5. Continue the patient on vent support as per Pulmonary. 6. Based on the patient's labs, we will do further recommendation. Thank you, Dr. Rodriguez, for allowing me to participate in the care of this patient. I will follow the patient with you during this hospitalization. Delmer Madera M.D. DR: Anabel JOB#: [id number] CC:
[2017-02-02] MEDS ORDERED: Heparin 5000 units/ml inj SUBQ SCH (21:00)
[2017-02-03] MEDS ORDERED: Pantoprazole Inj IV SCH (09:00)
--- NOTE | 2017-02-03 11:33 | Discharge Summary ---
Discharge Summary Hospital Course Date of Admission Feb 02, 2017 at 10:05 Date of Discharge Feb 02, 2017 at 16:45 Admitting Diagnosis RESPIRATORY DISTRESS HPI Kate Donovan is a 76 year old female who was admitted on Feb 02, 2017 at 10: 05 for Respiratory distress Hospital Course [id number] Discharge Discharge Disposition Patient was discharged to Acute Care Facility(02) Discharge Diagnoses: Jeana Larios NP Feb 03, 2017 11:33
[2017-02-03] MEDS ORDERED: Vancomycin 1 GM in D5W 275 ML IV SCH (23:00)
--- NOTE | 2017-02-04 00:30 | Discharge Summary 2 SIG ---
DATE OF ADMISSION: 02/02/2017 DATE OF DISCHARGE: 02/02/2017 MEDICAL ADMINISTRATOR: Delmer Madera M.D BRIEF HOSPITAL COURSE: The patient is a 76-year-old female with chronic trach and vent, bed-bound, [facility] resident, presented to ED, brought in by paramedics for complaints of shortness of breath. On evaluation at ED, the patient was noted to have fever of 101.2. Chest x-ray showed pulmonary congestion. Laboratories showed leukocytosis. The urine was also positive for infection. She was admitted for further care and was seen by Infectious Disease specialist. The patient was given cefepime and Zyvox. She came in with pressure ulcers and wound care was rendered. She was eventually transferred to contracted facility. FINAL DIAGNOSES: 1. Severe sepsis with septic shock. 2. Acute on chronic respiratory failure. 3. Anoxic brain damage syndrome. 4. Feeding by gastrostomy tube. 5. Vegetative state/functional quadriplegia. 6. Pressure ulcers, present on admission. Savi Rodriguez M.D. I have been assigned to dictate discharge summary on this account and I was not involved in the patient's management. Jeana Larios N.P. DR: LAILA JOB#: [id number] CC:
--- NOTE | 2017-02-05 01:11 | Cardiology Report ---
APPROVED REPORT EKG Measurement Heart [id number] Sinus tachycardia Right bundle branch block Possible Inferior infarct, age undetermined Abnormal ECG
== END 2017-02-02 16:45 | disposition short-term general hospital (02) | DRG 871 ==
LOC: EDBD 09:04 → EMR 09:25 → EDBEDREQ 09:39 → 2W 10:05 → EDBEDREQSVC 10:18 → EDBEDREQ 10:27
PROC: 5A1935Z Respiratory Ventilation, Less than 24 Consecutive Hours (ICD-10-PCS; principal; 2017-02-02)
DX: A41.9 Sepsis, unspecified organism (principal); J96.20 Acute and chronic respiratory failure, unspecified whether with hypoxia or hypercapnia; R65.21 Severe sepsis with septic shock; Z99.11 Dependence on respirator [ventilator] status; Z93.0 Tracheostomy status; G93.1 Anoxic brain damage, not elsewhere classified; J18.9 Pneumonia, unspecified organism; N39.0 Urinary tract infection, site not specified; Z68.41 Body mass index [BMI] 40.0-44.9, adult; Z93.1 Gastrostomy status; Z74.01 Bed confinement status; D72.829 Elevated white blood cell count, unspecified; L89.90 Pressure ulcer of unspecified site, unspecified stage; Z85.3 Personal history of malignant neoplasm of breast; E66.01 Morbid (severe) obesity due to excess calories; G40.909 Epilepsy, unspecified, not intractable, without status epilepticus
CPT/HCPCS: 36415; 71010; 80053; 81003; 82550; 82553; 82962; 83605; 83690; 83880; 84484; 85007; 85025; 85610; 85730; 87040; 87086; 87181; 93005; 94002

== ENCOUNTER 2017-04-02 15:20 | Inpatient (IN) | payer OTHER, MEDICAID ==
[~2017-04-02] VITALS: Ht 167.6 cm; Wt 113.4 kg
[~2017-04-02 15:20] MED LIST changes: +BISACODYL5 MG RECTAL; +DILANTIN100 MG GT; +FERROUS SULFAT325 MG GT; +FLEET ENEMA133 ML RECTAL; +LETROZOLE2.5 MG GT; +LEVETIRACE500 MG/51 GT; +MILK OF MA400 MG/51 GT; +NORCO 5-325 TA1 EACH GT; +PROMOD946 ML GT; +UTI-STAT L3875 MG/31 GT; +VITAMIN C500 MG/11 GT; +ZINC SULFATE220 M1 GT
[2017-04-02] MEDS ORDERED: NS 1000ml 3,400 ML IVLG ONE (15:30)
[2017-04-02 15:44] VITALS: BP 90/36
[2017-04-02 15:48] LABS: MEAN CORPUSCULAR HEMOGLOBIN 34.6 PG (27.0-31.0); MEAN CORPUSCULAR HGB CONC 34.4 G/DL (32.0-36.0); MEAN CORPUSCULAR VOLUME 100 FL (80-99); MEAN PLATELET VOLUME 7.9 FL (6.5-10.1); PLATELET COUNT 249 K/UL (150-450); RED BLOOD COUNT 3.14 M/UL (4.20-5.40); RED CELL DISTRIBUTION WIDTH 18.7 % (11.6-14.8)
[2017-04-02 16:00] LABS: BASOPHILS % (AUTO) 0.7 % (0.0-2.0); LYMPHOCYTES % (AUTO) 5.3 % (20.0-45.0); MONOCYTES % (AUTO) 6.5 % (1.0-10.0); NEUTROPHILS % (AUTO) 87.5 % (45.0-75.0)
[2017-04-02 16:08] LABS: APPEARANCE,URINE VERY CLOUDY; KETONES,URINE NEGATIVE (NEGATIVE); LEUKOCYTE ESTERASE ,URINE 3+ (NEGATIVE); NITRITE,URINE NEGATIVE (NEGATIVE); PH,URINE 5 (4.5-8.0); PROTEIN,URINE 2+ (NEGATIVE); UROBILINOGEN,URINE 1 MG/DL (0.0-1.0)
[2017-04-02 16:09] LABS: TROPONIN I < 0.30 ng/mL (<=0.30)
[2017-04-02 16:14] LABS: REFLEX LACTIC ACID YES OR NO YES
[2017-04-02 16:24] LABS: ALANINE AMINOTRANSFERASE 22 U/L (3-33); ALBUMIN/GLOBULIN RATIO 0.6 (1.0-2.7); ANION GAP 18 (5-15); ASPARTATE AMINO TRANSFERASE 48 U/L (5-40); CALCIUM 9.5 mg/dL (8.6-10.2); CARBON DIOXIDE 23 mEQ/L (20-30); CHLORIDE 92 mEQ/L (98-107); CREATININE 1.3 mg/dL (0.5-0.9); HEMOLYSIS 8; POTASSIUM 3.2 mEQ/L (3.4-4.9); SODIUM 133 mEQ/L (135-145); TOTAL PROTEIN 7.6 g/dL (6.6-8.7)
[2017-04-02 16:25] LABS: ICTOTEST POSITIVE
[2017-04-02 16:27] LABS: BACTERIA,URINE MANY /HPF; SQUAMOUS EPITHELIAL CELL,UR MANY /LPF (NONE/OCC); WBC,URINE TNTC /HPF (0 - 2)
[2017-04-02 16:29] VITALS: BP 100/41
[2017-04-02] MEDS ORDERED: LORazepam Inj 2mg/ml 1ml IV PRN (16:30)
[2017-04-02] MEDS ORDERED: DuoNeb 0.5-3(2.5)mg/3ml neb HHN PRN (16:30)
[2017-04-02] MEDS ORDERED: Morphine Sulfate 4mg/ml Inj IVP PRN (16:30)
[2017-04-02] MEDS ORDERED: Miralax 17gm pkt ORAL PRN (16:30)
[2017-04-02 16:35] LABS: CKMB < 1.5 ng/mL (< 3.8)
[2017-04-02] MEDS ORDERED: Cefepime 2gm ONE (16:38)
[2017-04-02] MEDS ORDERED: Azithromycin 500mg Inj IV ONE (16:38)
[2017-04-02] MEDS ORDERED: Cefepime HCl 2 GM in D5W 110 ML IVPB ONE (16:45)
[2017-04-02] MEDS ORDERED: Azithromycin 500 MG in NS 275 ML IV ONE (16:45)
[2017-04-02] MEDS ORDERED: LORazepam 1mg tab GT PRN (17:00)
[2017-04-02 17:30] VITALS: BP 100/37
[2017-04-02] MEDS ORDERED: ATIVAN1 MG GT (17:30)
[2017-04-02] MEDS ORDERED: LOVENOX10 M4 SUBQ (17:30)
[2017-04-02] MEDS ORDERED: FLEET ENEMA133 ML RECTAL (17:30)
[2017-04-02] MEDS ORDERED: DUONEB 0.5-3(2.53 ML HHN (17:30)
[2017-04-02] MEDS ORDERED: PROMOD946 ML GT (17:30)
[2017-04-02] MEDS ORDERED: DILANTIN100 MG GT (17:30)
[2017-04-02] MEDS ORDERED: MULTIVITAMINS1 EAC8 GT (17:30)
[2017-04-02] MEDS ORDERED: FAMOTIDINE20 MG GT (17:30)
[2017-04-02] MEDS ORDERED: ASPIR 8181 MG GT (17:30)
[2017-04-02] MEDS ORDERED: SYNTHROID25 MCG GT (17:30)
[2017-04-02] MEDS ORDERED: Phenytoin 50mg tab GT SCH (18:00)
--- NOTE | 2017-04-02 19:45 | Emergency Room Report ---
History of Present Illness General Chief Complaint: General Complaint Source: Medical Record Present Illness HPI 76-year-old female presents to ED for evaluation. Per EMS patient noted to be hypotensive at intermediate today. Patient is on trach/ventilator, has G-tube. She is nonverbal at baseline. Patient showing no signs of distress. No reported fevers or chills. No difficulty breathing on ventilator. No other aggravating or relieving factors. Other associated symptom Allergies: Coded Allergies: PEANUT (Verified Allergy, Unknown, 09/22/16) Uncoded Allergies: PEANUTS (Allergy, Unknown, 04/02/17) Patient History Past Medical History: HTN, CVA/TIA Past Surgical History: other - gtube, trach Pertinent Family History: none Social History: Denies: alcohol use, drug use, smoking Now: No Immunizations: UTD Reviewed Nursing Documentation: PMH: Agreed, PSxH: Agreed Nursing Documentation-PMH Hx Hypertension: Yes Hx COPD: Yes Hx Diabetes: Yes - Hypothyroid Hx Cancer: Yes - Breast (unspecified) Hx Gastrointestinal Problems: Yes - G-tube Hx Neurological Problems: Yes Hx Cerebrovascular Accident: Yes Hx Seizures: Yes Hx Paralysis: Yes Hx Peripheral Neuropathy: Yes Hx Memory Loss: Yes Hx Concentration Difficulty: Yes Hx Speech Problem: Yes Hx Aphasia: Yes Hx Dysphasia: Yes Hx Weakness: Yes Review of Systems All Other Systems: negative except mentioned in HPI Physical Exam Vital Signs Date Time Temp Pulse Resp B/P Pulse Ox O2 Delivery O2 Flow Rate FiO2 04/02/17 15:00 80 29 50 04/02/17 15:07 79/23 99 Ambu-Bag 15.0 04/02/17 15:44 99.0 Sp02 EP Interpretation: reviewed, normal General Appearance: lethargic, obese Head: normocephalic Eyes: bilateral eye PERRL, bilateral eye normal inspection ENT: normal ENT inspection Neck: normal inspection Respiratory: chest non-tender, crackles, speaking full sentences Cardiovascular #1: regular rate, rhythm, no edema Gastrointestinal: normal bowel sounds, non tender, soft, non-distended, no guarding, no rebound Rectal: deferred Genitourinary: no CVA tenderness Musculoskeletal: normal inspection Neurologic: other - nonverbal Psychiatric: other - nonverbal Skin: normal inspection Lymphatic: normal inspection Procedures Critical Care Time Critical Care Time i. I feel this is a highly complex case requiring extensive working including EKG/Rhythm strip, Xray/CT/US, Blood/urine lab work, repeat exams while in ED, and administration of strong opiates/narcotics for pain control, admission to hospital or close patient follow up. Total time: 30 min bedside evaluation and treatment excludes procedures (EKG). Reason for critical care: Hypotensive Possible complications: hypotension, hypertension, KS, shock, arrhythmias, metabolic acidosis, end organ damage, respiratory failure. Interventions: Labs, IV fluids, EKG, chest x-ray. Antibiotics. Course: Patient brought in for hypotension. Labs show significant leukocytosis , lactic greater than 4, UA grossly positive for UTI. Chest x-ray shows significant effusion/consolidation bilaterally. Given IV fluids and antibiotics. Blood pressure improving with IV fluids Consultations: nursing staff, EMS, family Performed by: Dr Mckenzie Tolerated well condition = critical j. because of unstable vital signs this patient had a condition that could potentially threaten life or limb. I feel this is a critical patient who required my full attention while patient was considered critical. Total Critical Care Time excluding procedures was greater than 35 minutes Medical Decision Making Diagnostic Impression: Primary Impression: Severe sepsis Additional Impressions: Pneumonia Qualified Codes: J18.9 - Pneumonia, unspecified organism UTI (urinary tract infection) Qualified Codes: N39.0 - Urinary tract infection, site not specified Hypotension Qualified Codes: I95.9 - Hypotension, unspecified ER Course Hospital Course 76-year-old female presents to ED for hypotension at intermediate Differential diagnoses include: Pneumonia, UTI, sepsis, dehydration, KS/ unstable angina Clinical course Patient placed on stretcher. On cardiac cath lab manager with stable vitals are ED course. After initial history and physical, I ordered labs, IV fluids, EKG, chest x-ray, blood cultures, UA. Labs - electrolytes ok, noted leukocytosis, troponins negative, lactic acid > 4 , UA grossly positive for UTI EKG - RBBB, no ischemic changes interpreted by me CXR -significant effusion/consolidation bilateral lungs, cardiomegaly Abx given. Given 30 mL per KG fluid bolus with improvement in blood pressure Case discussed with Dr Rodriguez and they agreed to admit patient to their service for further care and support I feel this is a highly complex case requiring extensive working including EKG/ Rhythm strip, Xray/CT/US, Blood/urine lab work, repeat exams while in ED, and administration of strong opiates/narcotics for pain control, admission to hospital or close patient follow up. Diagnosis - severe sepsis, pneumonia, UTI, hypotension Patient admitted to [facility] in critical condition Labs Test 04/02/17 15:30 04/02/17 16:30 White Blood Count 21.0 K/UL (4.8-10.8) Red Blood Count 3.14 M/UL (4.20-5.40) Hemoglobin 10.9 G/DL (12.0-16.0) Hematocrit 31.6 % (37.0-47.0) Mean Corpuscular Volume 100 FL (80-99) Mean Corpuscular Hemoglobin 34.6 PG (27.0-31.0) Mean Corpuscular Hemoglobin Concent 34.4 G/DL (32.0-36.0) Red Cell Distribution Width 18.7 % (11.6-14.8) Platelet Count 249 K/UL (150-450) Mean Platelet Volume 7.9 FL (6.5-10.1) Neutrophils (%) (Auto) 87.5 % (45.0-75.0) Lymphocytes (%) (Auto) 5.3 % (20.0-45.0) Monocytes (%) (Auto) 6.5 % (1.0-10.0) Eosinophils (%) (Auto) 0.0 % (0.0-3.0) Basophils (%) (Auto) 0.7 % (0.0-2.0) Urine Color Yellow Urine Appearance Very cloudy Urine pH 5 (4.5-8.0) Urine Specific [place] 1.015 (1.005-1.035) Urine Protein 2+ (NEGATIVE) Urine Glucose (UA) Negative (NEGATIVE) Urine Ketones Negative (NEGATIVE) Urine Occult Blood 2+ (NEGATIVE) Urine Nitrite Negative (NEGATIVE) Urine Bilirubin 1+ (NEGATIVE) Urine Ictotest Positive Urine Urobilinogen 1 MG/DL (0.0-1.0) Urine Leukocyte Esterase 3+ (NEGATIVE) Urine RBC 2-4 /HPF (0 - 2) Urine WBC Tntc /HPF (0 - 2) Urine Squamous Epithelial Cells Many /LPF (NONE/OCC) Urine Bacteria Many /HPF (NONE) Sodium Level 133 mEQ/L (135-145) Potassium Level 3.2 mEQ/L (3.4-4.9) Chloride Level 92 mEQ/L (98-107) Carbon Dioxide Level 23 mEQ/L (20-30) Anion Gap 18 (5-15) Blood Urea Nitrogen 20 mg/dL (7-23) Creatinine 1.3 mg/dL (0.5-0.9) Estimat Glomerular Filtration Rate mL/min (>60) Glucose Level 185 mg/dL (74-106) Lactic Acid Level 4.30 mmol/L (0.66-2.22) 3.30 mmol/L (0.66-2.22) Calcium Level 9.5 mg/dL (8.6-10.2) Total Bilirubin 0.8 mg/dL (0.0-1.2) Aspartate Amino Transf (AST/SGOT) 48 U/L (5-40) Alanine Aminotransferase (ALT/SGPT) 22 U/L (3-33) Alkaline Phosphatase 326 U/L (35-104) Total Creatine Kinase 19 U/L (26-140) Creatine Kinase MB < 1.5 ng/mL (< 3.8) Creatine Kinase MB Relative Index 7.8 Troponin I < 0.30 ng/mL (<=0.30) Pro-B-Type Natriuretic Peptide 1942 pg/mL (0-450) Total Protein 7.6 g/dL (6.6-8.7) Albumin 3.0 g/dL (3.5-5.2) Globulin 4.6 g/dL Albumin/Globulin Ratio 0.6 (1.0-2.7) EKG Diagnostic Results Rate: normal Rhythm: NSR ST Segments: other - RBBB ASA given to the pt in ED: No Rhythm Strip Diag. Results EP Interpretation: yes Rhythm: NSR, no PVC's, no ectopy Chest X-Ray Diagnostic Results Chest X-Ray Diagnostic Results : Chest X-Ray Ordered: Yes # of Views/Limited/Complete: 1 View Indication: Shortness of Breath EP Interpretation: Yes Interpretation: no pneumothorax, no acute cardiopulmonary disease, other - signficiant cardiomegaly. bilatral effusion/infiltrate Impression: Other - pneumonia Interpreting ER Provider: Electronically signed by Mina Mckenzie MD Last Vital Signs Date Time Temp Pulse Resp B/P Pulse Ox O2 Delivery O2 Flow Rate FiO2 04/02/17 18:50 65 15 50 04/02/17 18:09 99.0 100/37 97 Mechanical Ventilator 15.0 Status: improved Disposition: ADMITTED INPATIENT Condition: Critical Referrals: ANGELA RODRIGUEZ (PCP) MINA MCKENZIE M.D. Apr 02, 2017 19:45
[2017-04-02 20:00] VITALS: BP 91/35
[2017-04-02] MEDS: Vancomycin 1.5 GM/D5W 250ML IVPB SCH (20:12)
[2017-04-02] MEDS: Heparin 5000 units/ml inj SUBQ SCH (20:13)
--- NOTE | 2017-04-02 21:06 | History and Physical ---
History of Present Illness General Date patient seen: Apr 02, 2017 Reason for Hospitalization: General Complaint Present Illness HPI 76-year-old female with anoxic encephalopathy, trach/peg/ vent/ presents to ED for evaluation of hypotension at [facility] today. She is nonverbal at baseline. Patient showing no signs of distress. No reported fevers or chills. No difficulty breathing on ventilator. No other aggravating or relieving factors. Other associated symptom. Pt was found to have severe leukocytosis and pulmonary edema and possibly pneumonia. Allergies: Coded Allergies: PEANUT (Verified Allergy, Unknown, 09/22/16) Uncoded Allergies: PEANUTS (Allergy, Unknown, 04/02/17) Medication History Scheduled Aspirin* (Aspir 81*), 325 MG GT DAILY, (Reported) Bisacodyl* (Dulcolax*), 10 MG RECTAL PRN, (Reported) Cran/Vitc/Mannose/Inulin/Brom (Uti-Stat Liquid), 30 ML GT TWICE A DAY, (Reported ) Enoxaparin* (Lovenox*), 40 MG SUBQ DAILY, (Reported) Famotidine (Famotidine), 20 MG GT TWICE A DAY, (Reported) Ferrous Sulfate* (Ferrous Sulfate*), 7.5 ML GT DAILY, (Reported) Levetiracetam* (Levetiracetam*), 1,500 MG GT TWICE A DAY, (Reported) Levothyroxine Sodium* (Levothyroxine Sodium*), 25 MCG GT DAILY, (Reported) Levothyroxine Sodium* (Synthroid*), 25 MCG GT DAILY, (Reported) Lorazepam* (Ativan*), 2 MG GT EVERY 4 HOURS, (Reported) Magnesium Hydroxide (Milk of Magnesia), 30 ML ORAL DAILY, (Reported) Magnesium Hydroxide* (Milk Of Magnesia*), 30 ML GT PRN, (Reported) Multivitamin With Minerals (Multivitamins With Minerals*), 15 ML GT DAILY, ( Reported) Phenytoin Sodium Extended* (Dilantin*), 300 MG GT TID, (Reported) Protein Supplement (Promod), 30 ML GT DAILY, (Reported) Vit C/Ascorbate Ca/Ascorb Sod (Vitamin C 500 Mg/15 Ml Liquid), 5 ML GT DAILY, ( Reported) Zinc Sulfate (Zinc Sulfate*), 220 MG GT DAILY, (Reported) Scheduled PRN Acetaminophen (Acetaminophen), 650 MG GT Q6H PRN for Prn Headache/Temp > 101, ( Reported) Ipratropium/Albuterol Sulfate (DuoNeb 0.5-3(2.5)mg/3ml), 3 ML HHN Q6HR PRN for Shortness of Breath, (Reported) Lorazepam* (Ativan*), 1 MG GT Q8HR PRN for Agitation, (Reported) Na Phos,M-B/Na Phos,Di-Ba* (Fleet Enema*), 133 ML RECTAL DAILY PRN for Constipation, (Reported) Miscellaneous Medications Bisacodyl (Bisacodyl), 10 MG RC, (Reported) Discontinued Medications Amoxicillin (Amoxicillin), 125 MG ORAL EVERY 8 HOURS Discontinued Reason: Therapy completed Ertapenem (Invanz), 1 GM IM DAILY Discontinued Reason: Therapy completed Hydrocodone Bit/Acetaminophen 5-325* ([place] 5-325 Tablet*), 1 TAB GT Q4H PRN for For Pain, (Reported) Discontinued Reason: Therapy completed Hydrocodone Bit/Acetaminophen 5-325* ([place] 5-325*), 1 TAB GT BEDTIME PRN for For Pain, (Reported) Discontinued Reason: MD discontinued med Hydrocodone Bit/Acetaminophen 5-325* ([place] 5-325*), 1 TAB GT Q4H PRN for For Pain, (Reported) Discontinued Reason: MD discontinued med Hydrocodone Bit/Acetaminophen 5-325* ([place] 5-325*), 1 TAB GT DAILY, (Reported) Discontinued Reason: Therapy completed Ipratropium/Albuterol Sulfate (DuoNeb 0.5-3(2.5)mg/3ml), 3 ML HHN EVERY 8 HOURS, (Reported) Discontinued Reason: MD discontinued med Letrozole (Femara), 2.5 MG ORAL DAILY, (Reported) Discontinued Reason: MD discontinued med Letrozole (Letrozole), 2.5 MG GT DAILY, (Reported) Discontinued Reason: MD discontinued med Magnesium Oxide (Mag-Oxide), 300 MG GT, (Reported) Discontinued Reason: Therapy completed Meropenem (Meropenem), 1 GM IV EVERY 2 HOURS Discontinued Reason: Therapy completed Na Phos,M-B/Na Phos,Di-Ba* (Fleet Enema*), 133 ML RECTAL DAILY, (Reported) Discontinued Reason: Therapy completed Nitroglycerin (Nitrostat), 0.4 MG SL, (Reported) Discontinued Reason: Therapy completed Vitamin D (Vitamin D3), 2,000 UNITS GT DAILY, (Reported) Discontinued Reason: Medication dose changed Vitamin D (Vitamin D3), 2,000 UNITS GT DAILY, (Reported) Discontinued Reason: Medication dose changed Patient History Healthcare decision maker Resuscitation status Full Code Advanced Directive on File No Past Medical/Surgical History Past Medical/Surgical History: (1) Seizure (2) Chronic respiratory failure (3) Vegetative state (4) Feeding by G-tube (5) Anoxic brain damage syndrome Review of Systems All Other Systems: negative except mentioned in HPI Physical Exam General Appearance: WD/WN Lines, tubes and drains: peripheral, trach, gtube HEENT: normocephalic, anicteric Neck: non-tender, normal alignment Respiratory/Chest: chest wall non-tender, lungs clear Breasts: no masses Cardiovascular/Chest: normal rate, no gallop/murmur Abdomen: normal bowel sounds Genitourinary/Rectal: normal genital exam Extremities: non-tender Last 24 Hour Vital Signs Date Time Temp Pulse Resp B/P Pulse Ox O2 Delivery O2 Flow Rate FiO2 04/02/17 18:50 65 15 50 04/02/17 18:09 99.0 74 23 100/37 97 Mechanical Ventilator 15.0 50 04/02/17 17:30 74 23 100/37 97 Mechanical Ventilator 50 04/02/17 17:10 50 04/02/17 16:58 68 24 50 04/02/17 16:58 50 04/02/17 16:29 70 20 100/41 96 Mechanical Ventilator 50 04/02/17 15:49 50 04/02/17 15:44 99.0 73 24 90/36 95 Mechanical Ventilator 50 04/02/17 15:07 80 16 79/23 99 Ambu-Bag 15.0 04/02/17 15:00 80 29 50 Laboratory Tests Test 04/02/17 15:30 04/02/17 16:30 White Blood Count 21.0 K/UL (4.8-10.8) H Red Blood Count 3.14 M/UL (4.20-5.40) L Hemoglobin 10.9 G/DL (12.0-16.0) L Hematocrit 31.6 % (37.0-47.0) L Mean Corpuscular Volume 100 FL (80-99) H Mean Corpuscular Hemoglobin 34.6 PG (27.0-31.0) H Mean Corpuscular Hemoglobin Concent 34.4 G/DL (32.0-36.0) Red Cell Distribution Width 18.7 % (11.6-14.8) H Platelet Count 249 K/UL (150-450) Mean Platelet Volume 7.9 FL (6.5-10.1) Neutrophils (%) (Auto) 87.5 % (45.0-75.0) H Lymphocytes (%) (Auto) 5.3 % (20.0-45.0) L Monocytes (%) (Auto) 6.5 % (1.0-10.0) Eosinophils (%) (Auto) 0.0 % (0.0-3.0) Basophils (%) (Auto) 0.7 % (0.0-2.0) Urine Color Yellow Urine Appearance Very cloudy Urine pH 5 (4.5-8.0) Urine Specific [place] 1.015 (1.005-1.035) Urine Protein 2+ (NEGATIVE) H Urine Glucose (UA) Negative (NEGATIVE) Urine Ketones Negative (NEGATIVE) Urine Occult Blood 2+ (NEGATIVE) H Urine Nitrite Negative (NEGATIVE) Urine Bilirubin 1+ (NEGATIVE) H Urine Ictotest Positive Urine Urobilinogen 1 MG/DL (0.0-1.0) H Urine Leukocyte Esterase 3+ (NEGATIVE) H Urine RBC 2-4 /HPF (0 - 2) H Urine WBC Tntc /HPF (0 - 2) H Urine Squamous Epithelial Cells Many /LPF (NONE/OCC) H Urine Bacteria Many /HPF (NONE) H Sodium Level 133 mEQ/L (135-145) L Potassium Level 3.2 mEQ/L (3.4-4.9) L Chloride Level 92 mEQ/L (98-107) L Carbon Dioxide Level 23 mEQ/L (20-30) Anion Gap 18 (5-15) H Blood Urea Nitrogen 20 mg/dL (7-23) Creatinine 1.3 mg/dL (0.5-0.9) H Estimat Glomerular Filtration Rate mL/min (>60) Glucose Level 185 mg/dL (74-106) H Lactic Acid Level 4.30 mmol/L (0.66-2.22) H 3.30 mmol/L (0.66-2.22) H Calcium Level 9.5 mg/dL (8.6-10.2) Total Bilirubin 0.8 mg/dL (0.0-1.2) Aspartate Amino Transf (AST/SGOT) 48 U/L (5-40) H Alanine Aminotransferase (ALT/SGPT) 22 U/L (3-33) Alkaline Phosphatase 326 U/L (35-104) H Total Creatine Kinase 19 U/L (26-140) L Creatine Kinase MB < 1.5 ng/mL (< 3.8) Creatine Kinase MB Relative Index 7.8 Troponin I < 0.30 ng/mL (<=0.30) Pro-B-Type Natriuretic Peptide 1942 pg/mL (0-450) H Total Protein 7.6 g/dL (6.6-8.7) Albumin 3.0 g/dL (3.5-5.2) L Globulin 4.6 g/dL Albumin/Globulin Ratio 0.6 (1.0-2.7) L Height (Feet): 5 Height (Inches): 6.00 Weight (Pounds): 250 Medications Current Medications Medications (Trade) Dose Ordered Sig/Boubacar Route PRN Reason Start Time Stop Time Status Last Admin Dose Admin Acetaminophen (Tylenol) 650 mg Q4H PRN ORAL FEVER 04/02/17 16:30 05/02/17 16:29 Albuterol/ Ipratropium (DuoNeb 0.5-3(2.5)mg/3ml) 3 ml Q4H PRN HHN Shortness of Breath 04/02/17 16:30 04/07/17 16:29 Dextrose STAT PRN IV Hypoglycemia 04/02/17 16:30 05/02/17 16:29 Heparin Sodium (Porcine) (Heparin 5000 units/ml) 5,000 units EVERY 12 HOURS SUBQ 04/02/17 21:00 05/02/17 20:59 04/02/17 20:13 Levetiracetam (Keppra) 1,500 mg TWICE A DAY GT 04/02/17 18:00 05/02/17 17:59 04/02/17 18:57 Levothyroxine Sodium (Synthroid) 25 mcg DAILY GT 04/03/17 09:00 05/03/17 08:59 Lorazepam (Ativan 2mg/ml 1ml) 2 mg Q2H PRN IV For Anxiety 04/02/17 16:30 04/09/17 16:29 Lorazepam (Ativan) 2 mg Q4H PRN GT AGITATION 04/02/17 17:00 04/09/17 16:59 Morphine Sulfate (Morphine Sulfate) 4 mg Q4H PRN IVP Severe Pain (Pain Scale 7-10) 04/02/17 16:30 04/09/17 16:29 Ondansetron HCl (Zofran) 4 mg Q6H PRN IVP Nausea & Vomiting 04/02/17 16:30 05/02/17 16:29 Pantoprazole 40 mg 40 mg DAILY IV 04/03/17 09:00 05/03/17 08:59 Phenytoin (Dilantin) 150 mg BID GT 04/02/17 21:00 05/02/17 20:59 Piperacillin Sod/ Tazobactam Sod/ Sodium Chloride (Zosyn/Sodium Chloride) 110 ml @ 27.5 mls/hr Q8HR IVPB 04/02/17 22:00 04/09/17 21:59 Polyethylene Glycol (Miralax) 17 gm DAILYPRN PRN ORAL Constipation 04/02/17 16:30 05/02/17 16:29 Vancomycin HCl/ Dextrose (Vancomycin 1.5gm/D5W 250ml) 250 ml @ 125 mls/hr Q24H IVPB 04/02/17 20:00 04/07/17 19:59 04/02/17 20:12 Assessment/Plan Problem List: (1) Acute and chronic respiratory failure ICD Codes: J96.20 - Acute and chronic respiratory failure, unspecified whether with hypoxia or hypercapnia SNOMED: 56167234, 37985564 (2) Vegetative state ICD Codes: R40.3 - Persistent vegetative state SNOMED: 40200008, [id number] (3) Severe sepsis ICD Codes: A41.9 - Sepsis, unspecified organism; R65.20 - Severe sepsis without septic shock SNOMED: 69086483 (4) Anoxic brain damage syndrome ICD Codes: G93.1 - Anoxic brain damage, not elsewhere classified SNOMED: 083718300 Respiratory: monitor respiratory rate, adjust FIO2 Cardiac: continue to monitor HR/BP Renal: F/U I&O, keep IV fluid Infectious Disease: check cultures, continue antibiotics Gastrointestinal: continue feedings/current rate, hold feedings Endocrine: check TSH, check HgA1C Hematologic: monitor H/H Neurologic: PRN Ativan, PRN Morphine Affect: PRN ativan Prophylaxis: Protonix 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
[2017-04-02 22:00] VITALS: BP 95/42
[2017-04-02] MEDS: Piperacillin/Tazobactam 3.375 GM in NS 110 ML IVPB SCH (22:23)
[2017-04-03] VITALS: BP 113/49
[2017-04-03 04:00] VITALS: BP 114/44
[2017-04-03 04:45] LABS: MEAN CORPUSCULAR HEMOGLOBIN 33.5 PG (27.0-31.0); MEAN CORPUSCULAR HGB CONC 32.7 G/DL (32.0-36.0); MEAN CORPUSCULAR VOLUME 103 FL (80-99); PLATELET COUNT 258 K/UL (150-450); RED BLOOD COUNT 2.73 M/UL (4.20-5.40); RED CELL DISTRIBUTION WIDTH 18.7 % (11.6-14.8); WHITE BLOOD COUNT 19.8 K/UL (4.8-10.8)
[2017-04-03 05:18] LABS: ANION GAP 12 (5-15); CALCIUM 8.5 mg/dL (8.6-10.2); CARBON DIOXIDE 23 mEQ/L (20-30); CHLORIDE 102 mEQ/L (98-107); CREATININE 0.8 mg/dL (0.5-0.9); HEMOLYSIS 0; PHOSPHORUS 3.1 mg/dL (2.5-4.8); POTASSIUM 3.7 mEQ/L (3.4-4.9); SODIUM 137 mEQ/L (135-145)
[2017-04-03] MEDS: Piperacillin/Tazobactam 3.375 GM in NS 110 ML IVPB SCH ×3 (05:35→21:57)
[2017-04-03 05:57] LABS: BAND NEUTROPHILS % (MANUAL) 43 % (0-8); LYMPHOCYTES % (MANUAL) 6 % (20-45); NEUTROPHILS % (MANUAL) 47 % (45-75); TOTAL CELLS COUNTED 100
[2017-04-03 05:58] LABS: BASOPHILS % (MANUAL) 0 % (0-2); EOSINOPHILS % (MANUAL) 0 % (0-3); PLATELET ESTIMATE ADEQUATE; PLATELET MORPHOLOGY NORMAL
[2017-04-03 05:59] LABS: ANISOCYTOSIS 1+; HYPOCHROMASIA 1+; MACROCYTES 1+; POLYCHROMASIA 1+
[2017-04-03 08:00] VITALS: BP 106/50
--- NOTE | 2017-04-03 09:18 | Consultation ---
Consult Note Consult Note ID CONSULT: Milton# [id number] Assessment/Plan ASSESSMENT: 76 y/o female with: // Recurrent GNR UTI - UCx pending - h/o qR-PSA, E.coli // h/o KPC-K.pneumoniae bacteremia 12/06 ?urinary vs biliary source vs CLABSI - repeat BCx cleared 10/11 SP Rx r/o recurrence. Surveillance BCx pending - old left PICC removed, tip not sent for culture // h/o possible aspiration PNA / pneumonitis r/o recurrence - CXR 04/02: pending - h/o A.lwoffi, PSA, P.mirabilis // Severe sepsis - improved lactic acidosis // Leukocytosis - improved, afebrile // Hypotension - improved // Chronic anoxic encephalopathy // Acute on chronic VDRF SP trach, PEG - inc FiO2 // Seizure disorder // h/o breast CA // Morbid obesity // MRSA, VRE colonized // No ABX allergies // Full Code PLAN: - continue empiric IV vancomycin, zosyn d# 2. May DC IV vancomycin soon if no GP orgs identified - f/u cultures - monitor CBC, temperatures - monitor BMP - monitor CXR - vent support, trach care, aspiration precautions - seizure precautions Thanks! Will follow TREE BARRIENTOS Apr 03, 2017 09:18
[2017-04-03] MEDS: Pantoprazole Inj IV SCH (10:00)
[2017-04-03] MEDS: Levothyroxine 25mcg tab GT SCH (10:00)
[2017-04-03] MEDS: Heparin 5000 units/ml inj SUBQ SCH ×2 (10:02→21:41)
[2017-04-03] MEDS: Phenytoin Susp 100mg/4ml GT SCH ×2 (10:12→19:41)
--- NOTE | 2017-04-03 10:15 | Consultation ---
DATE OF CONSULTATION: 04/03/2017 INFECTIOUS DISEASE CONSULTATION REQUESTING PHYSICIAN: Savi Rodriguez M.D. REASON FOR CONSULTATION: Severe sepsis and UTI. HISTORY OF PRESENT ILLNESS: This is a 76-year-old female, correction resident with history of chronic encephalopathy and chronic ventilator-dependent respiratory failure. Admitted on 04/02/2017 with hypotension. She meets severe sepsis criteria. Lactic acidosis and leukocytosis are improving. Urinalysis suggests probable urinary tract infection. Urine culture is already growing greater than 100,000 colony-forming units of gram-negative rods. Imaging studies are pending. She has been started on empiric IV vancomycin and Zosyn and ID now consulted to assist in management. PAST MEDICAL HISTORY: 1. Hypothyroidism. 2. Seizure disorder. 3. Chronic ventilator-dependent respiratory failure. 4. Chronic anoxic encephalopathy. 5. History of recurrent urinary tract infection. 6. History of breast cancer. 7. Morbid obesity. PAST SURGICAL HISTORY: 1. Tracheostomy. 2. PEG tube placement. MEDICATIONS: 1. Vancomycin. 2. Zosyn. 3. Keppra. 4. . 5. Subcutaneous heparin. 6. Protonix. 7. Synthroid. ALLERGIES: Peanuts. FAMILY HISTORY: Unknown. SOCIAL HISTORY: The patient is a resident of a correction. No active tobacco, alcohol, or illicit drug abuse. REVIEW OF SYSTEMS: Unable to obtain. PHYSICAL EXAMINATION: GENERAL: In no acute distress on the ventilator. VITAL SIGNS: Maximum temperature 99 degrees, blood pressure 114/44, heart rate in the 60s, respiratory rate 27, and saturating 96% on 50% FiO2. HEENT: Tracheostomy tube in place. CARDIOVASCULAR: Regular rate and rhythm. No murmurs. PULMONARY: Coarse breath sounds bilaterally. ABDOMEN: Bowel sounds present. Soft, nondistended, and nontender. PEG tube in place. EXTREMITIES: No edema. SKIN: No rash. LABORATORY DATA: White blood cell count 19.9 decreased from 21 with left shift, hemoglobin 9.2, decreased from 10.9 hemoglobin, and platelets 258,000. Sodium 137, potassium 3.7, chloride 102, bicarbonate 23, BUN 23, and creatinine 0.8. Lactic acid is 4.3, decreased to 3.3. Troponin negative x1. BNP is 1942. Urinalysis is positive MICROBIOLOGY: 1. On 04/02/2017, urine culture greater than 100,000 units of gram-negative rods. 2. On 04/02/2017, blood culture is pending. 3. On 04/02/2017, sputum culture is pending. IMAGIN. On 04/02/2017, bilateral lower extremity Doppler ultrasound is pending. 2. On 04/02/2017, chest x-ray is pending. ASSESSMENT: 1. Recurrent gram-negative marla urinary tract infection. Urine culture is pending. She has a history of growth of quinolone resistant Pseudomonas aeruginosa and E. coli. 2. 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 Blood cultures cleared on 10/11/2016, the patient is status post treatment rule out recurrence. Surveillance blood culture is pending. 3. History of possible aspiration pneumonia and pneumonitis, rule out recurrence. Chest x-ray is pending. She has a history of growth of Acinetobacter lwoffii and Pseudomonas aeruginosa and Proteus mirabilis. 4. Severe sepsis with improving lactic acidosis. 5. Leukocytosis, improved, afebrile. 6. Hypotension, improved. 7. Chronic anoxic encephalopathy. 8. Acute on chronic ventilator-dependent respiratory failure, status post tracheostomy and percutaneous endoscopic gastrostomy. We will increase FiO2 requirements. 9. Seizure disorder. 10. History of breast cancer. 11. Morbid obesity. 12. Methicillin-resistant Staphylococcus aureus and vancomycin-resistant Enterococcus colonized. 13. No antibiotic allergies. 14. Full Code. PLAN: 1. Continue empiric IV vancomycin and Zosyn day #2. May discontinue intravenous vancomycin soon if no gram-positive organisms are identified. 2. Follow up cultures. 3. Monitor CBC and temperatures. 4. Monitor BMP. 5. Monitor chest x-ray. 6. Ventilator support, tracheostomy care, and aspiration precautions. 7. Seizure precautions. Thank you. We will follow. Rachid Yee M.D. DR: MARY ANN JOB#: [id number] CC: Savi Rodriguez M.D.; Fax#: [phone] Smith, M.D. Delmer Madera M.D; Fax#: [phone]
--- NOTE | 2017-04-03 10:34 | Diagnostic Imaging Report ---
Indication: Shortness of breath Technique: One view of the chest Comparison: 02/02/2017 Findings: There is increased interstitial edema as well as bilateral lower lung airspace consolidation. There may be small bilateral pleural effusions. The heart is borderline enlarged. Tracheostomy is again demonstrated. Impression: Bilateral pulmonary edema, worse than on 02/02/2017 Possible small bilateral pleural effusions
--- NOTE | 2017-04-03 11:05 | Pulmonology Progress Note ---
Assessment/Plan Problems: (1) Acute and chronic respiratory failure (2) Vegetative state (3) Severe sepsis (4) Anoxic brain damage syndrome Respiratory: monitor respiratory rate, adjust FIO2, CXR Cardiac: continue to monitor HR/BP Renal: F/U I&O, keep IV fluid, check electrolytes Infectious Disease: check cultures Gastrointestinal: continue feedings/current rate Endocrine: monitor blood sugar, check TSH Hematologic: monitor H/H Neurologic: PRN Ativan Affect: PRN ativan Prophylaxis: Protonix 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: cardio Discussed with: nurses, consultants, assistant case manager Subjective ROS Limited/Unobtainable: No Constitutional: Reports: no symptoms HEENT: Repors: no symptoms Respiratory: Reports: no symptoms Allergies: Coded Allergies: PEANUT (Verified Allergy, Unknown, 09/22/16) Uncoded Allergies: PEANUTS (Allergy, Unknown, 04/02/17) Objective Last 24 Hour Vital Signs Date Time Temp Pulse Resp B/P Pulse Ox O2 Delivery O2 Flow Rate FiO2 04/03/17 08:43 64 27 50 04/03/17 08:00 97.7 67 21 106/50 67 Mechanical Ventilator 35 04/03/17 08:00 66 04/03/17 08:00 35 04/03/17 06:43 67 27 50 04/03/17 05:14 65 25 50 04/03/17 04:00 97.0 75 23 114/44 96 Mechanical Ventilator 35 04/03/17 04:00 35 04/03/17 04:00 68 04/03/17 03:25 68 25 50 04/03/17 00:57 70 25 50 04/03/17 00:00 97.0 73 22 113/49 96 Mechanical Ventilator 35 04/03/17 00:00 72 04/02/17 22:44 68 27 50 04/02/17 22:00 35 04/02/17 22:00 67 21 95/42 95 Mechanical Ventilator 35 04/02/17 21:05 66 16 50 04/02/17 20:00 97.0 64 21 91/35 95 Mechanical Ventilator 50 04/02/17 20:00 50 04/02/17 20:00 64 04/02/17 18:50 65 15 50 04/02/17 18:09 99.0 74 23 100/37 97 Mechanical Ventilator 15.0 50 04/02/17 17:30 74 23 100/37 97 Mechanical Ventilator 50 04/02/17 17:10 50 04/02/17 16:58 68 24 50 04/02/17 16:58 50 04/02/17 16:29 70 20 100/41 96 Mechanical Ventilator 50 04/02/17 15:49 50 04/02/17 15:44 99.0 73 24 90/36 95 Mechanical Ventilator 50 04/02/17 15:07 80 16 79/23 99 Ambu-Bag 15.0 04/02/17 15:00 80 29 50 Intake and Output 04/02/17 04/03/17 19:00 07:00 Intake Total 3815 ml 1747.5 ml Output Total 50 ml 250 ml Balance 3765 ml 1497.5 ml Intake IV Total 3785 ml 1387.5 ml Tube Feeding 30 ml 360 ml Output Urine Total 50 ml 250 ml # Bowel Movements 1 General Appearance: WD/WN HEENT: atraumatic Respiratory/Chest: chest wall non-tender, normal breath sounds Cardiovascular: normal peripheral pulses, normal rate Abdomen: normal bowel sounds, soft, non tender Genitourinary: normal external genitalia Extremities: no clubbing Skin: no rash Neurologic/Psychiatric: transportation analyst II-XII grossly normal, no motor/sensory deficits Lymphatic: no neck adenopathy Microbiology Date/Time Source Procedure Growth Status 04/03/17 04:00 Sputum Gram Stain - Final Resulted 04/03/17 04:00 Sputum Sputum Culture Pending Resulted 04/02/17 15:30 Urine,Clean Catch Urine Culture - Preliminary Gram Negative Bacillus 1 Resulted Laboratory Tests 04/02/17 15:30: White Blood Count 21.0H, Red Blood Count 3.14L, Hemoglobin 10.9L, Hematocrit 31.6L, Mean Corpuscular Volume 100H, Mean Corpuscular Hemoglobin 34.6H, Mean Corpuscular Hemoglobin Concent 34.4, Red Cell Distribution Width 18.7H, Platelet Count 249, Mean Platelet Volume 7.9, Neutrophils (%) (Auto) 87.5H, Lymphocytes (%) (Auto) 5.3L, Monocytes (%) (Auto) 6.5, Eosinophils (%) (Auto) 0.0, Basophils (%) (Auto) 0.7, Urine Color Yellow, Urine Appearance Very cloudy , Urine pH 5, Urine Specific Castella 1.015, Urine Protein 2+H, Urine Glucose (UA ) Negative, Urine Ketones Negative, Urine Occult Blood 2+H, Urine Nitrite Negative, Urine Bilirubin 1+H, Urine Ictotest Positive, Urine Urobilinogen 1H, Urine Leukocyte Esterase 3+H, Urine RBC 2-4H, Urine WBC TntcH, Urine Squamous Epithelial Cells ManyH, Urine Bacteria ManyH, Sodium Level 133L, Potassium Level 3.2L, Chloride Level 92L, Carbon Dioxide Level 23, Anion Gap 18H, Blood Urea Nitrogen 20, Creatinine 1.3H, Estimat Glomerular Filtration Rate , Glucose Level 185H, Lactic Acid Level 4.30H, Calcium Level 9.5, Total Bilirubin 0.8, Aspartate Amino Transf (AST/SGOT) 48H, Alanine Aminotransferase (ALT/SGPT) 22, Alkaline Phosphatase 326H, Total Creatine Kinase 19L, Creatine Kinase MB < 1.5, Creatine Kinase MB Relative Index 7.8, Troponin I < 0.30, Pro-B-Type Natriuretic Peptide 1942H, Total Protein 7.6, Albumin 3.0L, Globulin 4.6, Albumin/Globulin Ratio 0.6L 04/02/17 16:30: Lactic Acid Level 3.30H 04/03/17 03:30: White Blood Count 19.8H, Red Blood Count 2.73L, Hemoglobin 9.2L, Hematocrit 28.0L, Mean Corpuscular Volume 103H, Mean Corpuscular Hemoglobin 33.5H, Mean Corpuscular Hemoglobin Concent 32.7, Red Cell Distribution Width 18.7H, Platelet Count 258, Mean Platelet Volume 8.0, Neutrophils (%) (Auto) , Lymphocytes (%) (Auto) , Monocytes (%) (Auto) , Eosinophils (%) (Auto) , Basophils (%) (Auto) , Sodium Level 137, Potassium Level 3.7, Chloride Level 102 , Carbon Dioxide Level 23, Anion Gap 12, Blood Urea Nitrogen 23, Creatinine 0.8 , Estimat Glomerular Filtration Rate , Glucose Level 131H, Calcium Level 8.5L, Albumin 2.9L, Differential Total Cells Counted 100, Neutrophils % (Manual) 47, Lymphocytes % (Manual) 6L, Monocytes % (Manual) 4, Eosinophils % (Manual) 0, Basophils % (Manual) 0, Band Neutrophils 43H, Platelet Estimate Adequate, Platelet Morphology Normal, Polychromasia 1+, Hypochromasia 1+, Anisocytosis 1+ , Macrocytosis 1+, Phosphorus Level 3.1 Current Medications Medications (Trade) Dose Ordered Sig/Boubacar Route PRN Reason Start Time Stop Time Status Last Admin Dose Admin Acetaminophen (Tylenol) 650 mg Q4H PRN ORAL FEVER 04/02/17 16:30 05/02/17 16:29 Albuterol/ Ipratropium (DuoNeb 0.5-3(2.5)mg/3ml) 3 ml Q4H PRN HHN Shortness of Breath 04/02/17 16:30 04/07/17 16:29 Dextrose STAT PRN IV Hypoglycemia 04/02/17 16:30 05/02/17 16:29 Heparin Sodium (Porcine) (Heparin 5000 units/ml) 5,000 units EVERY 12 HOURS SUBQ 04/02/17 21:00 05/02/17 20:59 04/03/17 10:02 Levetiracetam (Keppra) 1,500 mg TWICE A DAY GT 04/02/17 18:00 05/02/17 17:59 04/03/17 10:00 Levothyroxine Sodium (Synthroid) 25 mcg DAILY GT 04/03/17 09:00 05/03/17 08:59 04/03/17 10:00 Lorazepam (Ativan 2mg/ml 1ml) 2 mg Q2H PRN IV For Anxiety 04/02/17 16:30 04/09/17 16:29 Lorazepam (Ativan) 2 mg Q4H PRN GT AGITATION 04/02/17 17:00 04/09/17 16:59 Morphine Sulfate (Morphine Sulfate) 4 mg Q4H PRN IVP Severe Pain (Pain Scale 7-10) 04/02/17 16:30 04/09/17 16:29 Ondansetron HCl (Zofran) 4 mg Q6H PRN IVP Nausea & Vomiting 04/02/17 16:30 05/02/17 16:29 Pantoprazole 40 mg 40 mg DAILY IV 04/03/17 09:00 05/03/17 08:59 04/03/17 10:00 Phenytoin (Dilantin) 150 mg BID GT 04/02/17 21:00 05/02/17 20:59 04/03/17 10:12 Piperacillin Sod/ Tazobactam Sod/ Sodium Chloride (Zosyn/Sodium Chloride) 110 ml @ 27.5 mls/hr Q8HR IVPB 04/02/17 22:00 04/09/17 21:59 04/03/17 05:35 Polyethylene Glycol (Miralax) 17 gm DAILYPRN PRN ORAL Constipation 04/02/17 16:30 05/02/17 16:29 Vancomycin HCl/ Dextrose (Vancomycin 1.5gm/D5W 250ml) 250 ml @ 125 mls/hr Q24H IVPB 04/02/17 20:00 04/07/17 19:59 04/02/17 20:12 ANGELA DAVILA Apr 03, 2017 11:05
[2017-04-03] MEDS ORDERED: Tubing IV Secondary IV ONE (14:15)
[2017-04-03 16:00] VITALS: BP 113/52
--- NOTE | 2017-04-03 18:11 | Cardiology Report ---
APPROVED REPORT EKG Measurement Heart [id number] Normal sinus rhythm Right bundle branch block Abnormal ECG
[2017-04-03 20:40] VITALS: BP 106/67
[2017-04-03] MEDS: Vancomycin 1.5 GM/D5W 250ML IVPB SCH (21:18)
[2017-04-03] MEDS ORDERED: Vancomycin 1 GM in D5W 275 ML IV SCH (23:00)
[2017-04-04] VITALS: BP 133/59
[2017-04-04 04:00] VITALS: BP 124/58
[2017-04-04] MEDS: Piperacillin/Tazobactam 3.375 GM in NS 110 ML IVPB SCH ×2 (05:54→15:16)
[2017-04-04 08:00] VITALS: BP 107/49
[2017-04-04] MEDS: Pantoprazole Inj IV SCH (10:29)
[2017-04-04] MEDS: Levothyroxine 25mcg tab GT SCH (10:30)
[2017-04-04] MEDS: Phenytoin Susp 100mg/4ml GT SCH ×2 (10:30→17:38)
[2017-04-04] MEDS: Heparin 5000 units/ml inj SUBQ SCH ×2 (10:32→21:12)
--- NOTE | 2017-04-04 11:19 | Pulmonology Progress Note ---
Assessment/Plan Problems: (1) Acute and chronic respiratory failure (2) Vegetative state (3) Severe sepsis (4) Anoxic brain damage syndrome Respiratory: monitor respiratory rate, adjust FIO2 Cardiac: continue to monitor HR/BP Renal: F/U I&O, keep IV fluid Infectious Disease: check cultures Gastrointestinal: continue feedings/current rate, hold feedings Endocrine: monitor blood sugar, check TSH, continue sliding scale insulin Hematologic: monitor H/H, transfuse if hgb<8.5 Neurologic: PRN Ativan, keep patient comfortable Affect: PRN ativan Prophylaxis: Protonix Disposition: keep in ICU 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: field sales executive Subjective ROS Limited/Unobtainable: No Constitutional: Reports: no symptoms HEENT: Repors: no symptoms Respiratory: Reports: no symptoms Allergies: Coded Allergies: PEANUT (Verified Allergy, Unknown, 09/22/16) Uncoded Allergies: PEANUTS (Allergy, Unknown, 04/02/17) Objective Last 24 Hour Vital Signs Date Time Temp Pulse Resp B/P Pulse Ox O2 Delivery O2 Flow Rate FiO2 04/04/17 10:30 80 24 50 04/04/17 09:23 76 25 50 04/04/17 08:00 50 04/04/17 08:00 98.7 70 20 107/49 99 Mechanical Ventilator 50 04/04/17 08:00 72 04/04/17 06:42 70 24 50 04/04/17 05:40 62 26 50 04/04/17 04:00 50 04/04/17 04:00 66 04/04/17 04:00 97.7 97 25 124/58 99 Mechanical Ventilator 50 04/04/17 03:36 60 25 50 04/04/17 01:51 70 29 50 04/04/17 00:00 62 04/04/17 00:00 98.3 97 28 133/59 95 Mechanical Ventilator 50 04/04/17 00:00 50 04/03/17 22:37 71 22 50 04/03/17 20:41 74 35 50 04/03/17 20:40 97.5 69 24 106/67 96 Mechanical Ventilator 50 04/03/17 20:00 50 04/03/17 20:00 72 04/03/17 19:49 75 26 50 04/03/17 17:12 70 24 50 04/03/17 16:00 72 04/03/17 16:00 35 04/03/17 16:00 97.7 97 22 113/52 97 Mechanical Ventilator 35 04/03/17 15:27 71 27 50 04/03/17 12:32 68 29 50 04/03/17 12:00 35 04/03/17 12:00 68 Intake and Output 04/03/17 04/04/17 19:00 07:00 Intake Total 650.0 ml 800.0 ml Output Total 550 ml 750 ml Balance 100.0 ml 50.0 ml Intake Free Water 150 ml 50 ml IV Total 110.0 ml 390.0 ml Tube Feeding 390 ml 360 ml Output Urine Total 550 ml 750 ml # Bowel Movements 1 3 General Appearance: WD/WN HEENT: normocephalic, atraumatic Respiratory/Chest: chest wall non-tender, lungs clear Breasts: no masses Abdomen: normal bowel sounds, no organomegaly Skin: no rash Neurologic/Psychiatric: global analytics head II-XII grossly normal, no motor/sensory deficits Lymphatic: no neck adenopathy Microbiology Date/Time Source Procedure Growth Status 04/02/17 15:30 Blood Blood Culture - Preliminary NO GROWTH AFTER 24 HOURS Resulted 04/02/17 15:30 Blood Blood Culture - Preliminary NO GROWTH AFTER 24 HOURS Resulted 04/03/17 04:00 Sputum Gram Stain - Final Resulted 04/03/17 04:00 Sputum Sputum Culture Pending Resulted 04/02/17 15:30 Urine,Clean Catch Urine Culture - Final Escherichia Coli - Esbl Complete Current Medications Medications (Trade) Dose Ordered Sig/Boubacar Route PRN Reason Start Time Stop Time Status Last Admin Dose Admin Acetaminophen (Tylenol) 650 mg Q4H PRN ORAL FEVER 04/02/17 16:30 05/02/17 16:29 Albuterol/ Ipratropium (DuoNeb 0.5-3(2.5)mg/3ml) 3 ml Q4H PRN HHN Shortness of Breath 04/02/17 16:30 04/07/17 16:29 Dextrose STAT PRN IV Hypoglycemia 04/02/17 16:30 05/02/17 16:29 Heparin Sodium (Porcine) (Heparin 5000 units/ml) 5,000 units EVERY 12 HOURS SUBQ 04/02/17 21:00 05/02/17 20:59 04/04/17 10:32 Levetiracetam (Keppra) 1,500 mg TWICE A DAY GT 04/02/17 18:00 05/02/17 17:59 04/04/17 10:30 Levothyroxine Sodium (Synthroid) 25 mcg DAILY GT 04/03/17 09:00 05/03/17 08:59 04/04/17 10:30 Lorazepam (Ativan 2mg/ml 1ml) 2 mg Q2H PRN IV For Anxiety 04/02/17 16:30 04/09/17 16:29 Lorazepam (Ativan) 2 mg Q4H PRN GT AGITATION 04/02/17 17:00 04/09/17 16:59 Morphine Sulfate (Morphine Sulfate) 4 mg Q4H PRN IVP Severe Pain (Pain Scale 7-10) 04/02/17 16:30 04/09/17 16:29 Ondansetron HCl (Zofran) 4 mg Q6H PRN IVP Nausea & Vomiting 04/02/17 16:30 05/02/17 16:29 Pantoprazole 40 mg 40 mg DAILY IV 04/03/17 09:00 05/03/17 08:59 04/04/17 10:29 Phenytoin (Dilantin) 150 mg BID GT 04/02/17 21:00 05/02/17 20:59 04/04/17 10:30 Piperacillin Sod/ Tazobactam Sod/ Sodium Chloride (Zosyn/Sodium Chloride) 110 ml @ 27.5 mls/hr Q8HR IVPB 04/02/17 22:00 04/09/17 21:59 04/04/17 05:54 Polyethylene Glycol (Miralax) 17 gm DAILYPRN PRN ORAL Constipation 04/02/17 16:30 05/02/17 16:29 Vancomycin HCl (Vanco rx to dose) 1 ea DAILY PRN MISC PER RX PROTOCOL 04/03/17 14:00 05/03/17 13:59 Vancomycin HCl/ Dextrose (Vancomycin 1.5gm/D5W 250ml) 250 ml @ 125 mls/hr Q24H IVPB 04/02/17 20:00 04/07/17 19:59 04/03/17 21:18 ANGELA DAVILA Apr 04, 2017 11:19
[2017-04-04 12:00] VITALS: BP 112/61
[2017-04-04] MEDS ORDERED: NS 275ml ONE (15:47)
[2017-04-04] MEDS ORDERED: Tubing IV Secondary IV ONE (15:47)
[2017-04-04 16:38] VITALS: BP 114/53
--- NOTE | 2017-04-04 17:10 | Infectious Diseases Prog Note ---
Assessment/Plan Assessment/Plan ASSESSMENT: 76 y/o female with: // Recurrent ESBL(+) E.coli UTI - h/o qR-PSA, E.coli // h/o KPC-K.pneumoniae bacteremia 12/06 ?urinary vs biliary source vs CLABSI - repeat BCx cleared 10/11 SP Rx r/o recurrence. Surveillance BCx NGTD - old left PICC removed, tip not sent for culture // h/o possible aspiration PNA / pneumonitis - no evidence of recurrence - CXR 04/02: Bilateral pulmonary edema, possible small bilateral pleural effusions - h/o A.lwoffi, PSA, P.mirabilis // Severe sepsis - improved lactic acidosis // Leukocytosis - improved, afebrile. No repeat CBC // Hypotension - improved // Chronic anoxic encephalopathy // Acute on chronic VDRF SP trach, PEG - inc FiO2 // Seizure disorder // h/o breast CA // Morbid obesity // MRSA, VRE colonized // No ABX allergies // Full Code PLAN: - change empiric IV vancomycin, zosyn d# 3 to meropenem d# / -10 based on cultures ( less seizurogenic ) - f/u cultures - monitor CBC, temperatures - monitor BMP - monitor CXR - vent support, trach care, aspiration precautions - seizure precautions Subjective Allergies: Coded Allergies: PEANUT (Verified Allergy, Unknown, 09/22/16) Uncoded Allergies: PEANUTS (Allergy, Unknown, 04/02/17) Subjective remains afebrile UCx ESBL Objective Vital Signs Last 24 Hour Vital Signs Date Time Temp Pulse Resp B/P Pulse Ox O2 Delivery O2 Flow Rate FiO2 04/04/17 16:38 97.0 84 20 114/53 98 Venturi Mask 04/04/17 16:00 50 04/04/17 16:00 83 04/04/17 15:35 73 24 50 04/04/17 13:30 75 22 50 04/04/17 12:00 50 04/04/17 12:00 70 04/04/17 12:00 97.9 70 21 112/61 99 Mechanical Ventilator 50 04/04/17 10:30 80 24 50 04/04/17 09:23 76 25 50 04/04/17 08:00 50 04/04/17 08:00 98.7 70 20 107/49 99 Mechanical Ventilator 50 04/04/17 08:00 72 04/04/17 06:42 70 24 50 04/04/17 05:40 62 26 50 04/04/17 04:00 50 04/04/17 04:00 66 04/04/17 04:00 97.7 97 25 124/58 99 Mechanical Ventilator 50 04/04/17 03:36 60 25 50 04/04/17 01:51 70 29 50 04/04/17 00:00 62 04/04/17 00:00 98.3 97 28 133/59 95 Mechanical Ventilator 50 04/04/17 00:00 50 04/03/17 22:37 71 22 50 04/03/17 20:41 74 35 50 04/03/17 20:40 97.5 69 24 106/67 96 Mechanical Ventilator 50 04/03/17 20:00 50 04/03/17 20:00 72 04/03/17 19:49 75 26 50 04/03/17 17:12 70 24 50 Height (Feet): 5 Height (Inches): 6.00 Weight (Pounds): 250 General Appearance: no acute distress HEENT: status post trach Respiratory/Chest: decreased breath sounds Cardiovascular: normal rate, regular rhythm Abdomen: normal bowel sounds, soft, non tender, non distended Microbiology Date/Time Source Procedure Growth Status 04/02/17 15:30 Blood Blood Culture - Preliminary NO GROWTH AFTER 24 HOURS Resulted 04/02/17 15:30 Blood Blood Culture - Preliminary NO GROWTH AFTER 24 HOURS Resulted 04/03/17 04:00 Sputum Gram Stain - Final Resulted 04/03/17 04:00 Sputum Sputum Culture Pending Resulted 04/02/17 15:30 Urine,Clean Catch Urine Culture - Final Escherichia Coli - Esbl Complete Current Medications Medications (Trade) Dose Ordered Sig/Boubacar Route PRN Reason Start Time Stop Time Status Last Admin Dose Admin Acetaminophen (Tylenol) 650 mg Q4H PRN ORAL FEVER 04/02/17 16:30 05/02/17 16:29 Albuterol/ Ipratropium (DuoNeb 0.5-3(2.5)mg/3ml) 3 ml Q4H PRN HHN Shortness of Breath 04/02/17 16:30 04/07/17 16:29 Dextrose STAT PRN IV Hypoglycemia 04/02/17 16:30 05/02/17 16:29 Heparin Sodium (Porcine) (Heparin 5000 units/ml) 5,000 units EVERY 12 HOURS SUBQ 04/02/17 21:00 05/02/17 20:59 04/04/17 10:32 Levetiracetam (Keppra) 1,500 mg TWICE A DAY GT 04/02/17 18:00 05/02/17 17:59 04/04/17 10:30 Levothyroxine Sodium (Synthroid) 25 mcg DAILY GT 04/03/17 09:00 05/03/17 08:59 04/04/17 10:30 Lorazepam (Ativan 2mg/ml 1ml) 2 mg Q2H PRN IV For Anxiety 04/02/17 16:30 04/09/17 16:29 Lorazepam (Ativan) 2 mg Q4H PRN GT AGITATION 04/02/17 17:00 04/09/17 16:59 Morphine Sulfate (Morphine Sulfate) 4 mg Q4H PRN IVP Severe Pain (Pain Scale 7-10) 04/02/17 16:30 04/09/17 16:29 Ondansetron HCl (Zofran) 4 mg Q6H PRN IVP Nausea & Vomiting 04/02/17 16:30 05/02/17 16:29 Pantoprazole 40 mg 40 mg DAILY IV 04/03/17 09:00 05/03/17 08:59 04/04/17 10:29 Phenytoin (Dilantin) 150 mg BID GT 04/02/17 21:00 05/02/17 20:59 04/04/17 10:30 Piperacillin Sod/ Tazobactam Sod/ Sodium Chloride (Zosyn/Sodium Chloride) 110 ml @ 27.5 mls/hr Q8HR IVPB 04/02/17 22:00 04/09/17 21:59 04/04/17 15:16 Polyethylene Glycol (Miralax) 17 gm DAILYPRN PRN ORAL Constipation 04/02/17 16:30 05/02/17 16:29 Vancomycin HCl (Vanco rx to dose) 1 ea DAILY PRN MISC PER RX PROTOCOL 04/03/17 14:00 05/03/17 13:59 Vancomycin HCl/ Dextrose (Vancomycin 1.5gm/D5W 250ml) 250 ml @ 125 mls/hr Q24H IVPB 04/02/17 20:00 8/4/17 19:59 04/03/17 21:18 TREE BARRIENTOS Apr 04, 2017 17:10
[2017-04-04] MEDS: Meropenem 1 GM in NS 110 ML IVPB SCH (18:46)
[2017-04-04 20:22] VITALS: BP 129/72
[2017-04-05] VITALS: BP 129/63
[2017-04-05] MEDS: Meropenem 1 GM in NS 110 ML IVPB SCH ×3 (02:16→17:37)
[2017-04-05 04:00] VITALS: BP 115/70
[2017-04-05 05:32] LABS: BASOPHILS % (AUTO) 0.5 % (0.0-2.0); EOSINOPHILS % (AUTO) 5.7 % (0.0-3.0); LYMPHOCYTES % (AUTO) 9.3 % (20.0-45.0); MEAN CORPUSCULAR HEMOGLOBIN 30.4 PG (27.0-31.0); MEAN CORPUSCULAR HGB CONC 29.7 G/DL (32.0-36.0); MEAN CORPUSCULAR VOLUME 103 FL (80-99); MEAN PLATELET VOLUME 8.3 FL (6.5-10.1); MONOCYTES % (AUTO) 7.2 % (1.0-10.0); NEUTROPHILS % (AUTO) 77.3 % (45.0-75.0); PLATELET COUNT 241 K/UL (150-450); RED BLOOD COUNT 2.85 M/UL (4.20-5.40); RED CELL DISTRIBUTION WIDTH 17.8 % (11.6-14.8); WHITE BLOOD COUNT 8.4 K/UL (4.8-10.8)
[2017-04-05 06:24] LABS: ALANINE AMINOTRANSFERASE 12 U/L (3-33); ALBUMIN/GLOBULIN RATIO 0.6 (1.0-2.7); ANION GAP 12 (5-15); ASPARTATE AMINO TRANSFERASE 18 U/L (5-40); CALCIUM 9.2 mg/dL (8.6-10.2); CARBON DIOXIDE 27 mEQ/L (20-30); CHLORIDE 105 mEQ/L (98-107); CREATININE 0.3 mg/dL (0.5-0.9); HEMOLYSIS 0; MAGNESIUM 1.6 mg/dL (1.7-2.5); PHOSPHORUS 2.3 mg/dL (2.5-4.8); POTASSIUM 3.2 mEQ/L (3.4-4.9); SODIUM 144 mEQ/L (135-145); TOTAL PROTEIN 6.9 g/dL (6.6-8.7)
[2017-04-05 08:00] VITALS: BP 129/58
[2017-04-05] MEDS: Phenytoin Susp 100mg/4ml GT SCH ×2 (10:01→17:38)
[2017-04-05] MEDS: Levothyroxine 25mcg tab GT SCH (10:01)
[2017-04-05] MEDS: Pantoprazole Inj IV SCH (10:02)
[2017-04-05] MEDS: Heparin 5000 units/ml inj SUBQ SCH ×2 (10:02→21:01)
--- NOTE | 2017-04-05 11:38 | Infectious Diseases Prog Note ---
Assessment/Plan Assessment/Plan ASSESSMENT: 76 y/o female with: // Recurrent ESBL(+) E.coli UTI - h/o qR-PSA, E.coli // h/o KPC-K.pneumoniae bacteremia 12/06 ?urinary vs biliary source vs CLABSI - repeat BCx cleared 10/11 SP Rx r/o recurrence. Surveillance BCx NGTD - old left PICC removed, tip not sent for culture // h/o possible aspiration PNA / pneumonitis - no evidence of recurrence, SCx GNR=colonizer - CXR 04/02: Bilateral pulmonary edema, possible small bilateral pleural effusions - h/o A.lwoffi, PSA, P.mirabilis // Severe sepsis SP - improved lactic acidosis // Leukocytosis - resolved // Hypotension SP // Chronic anoxic encephalopathy // Acute on chronic VDRF SP trach, PEG - inc FiO2 // Seizure disorder // h/o breast CA // Morbid obesity // MRSA, VRE colonized // No ABX allergies // Full Code PLAN: - continue meropenem d# ( 04/04 SP IV vancomycin, zosyn d# 3 ) - f/u cultures - monitor CBC, temperatures - monitor BMP - monitor CXR - vent support, trach care, aspiration precautions - seizure precautions Subjective Allergies: Coded Allergies: PEANUT (Verified Allergy, Unknown, 09/22/16) Uncoded Allergies: PEANUTS (Allergy, Unknown, 04/02/17) Subjective nonverbal remains afebrile, resolved leukocytosis Objective Vital Signs Last 24 Hour Vital Signs Date Time Temp Pulse Resp B/P Pulse Ox O2 Delivery O2 Flow Rate FiO2 04/05/17 11:27 89 28 50 04/05/17 08:57 83 23 50 04/05/17 08:00 99.1 81 26 129/58 96 Mechanical Ventilator 50 04/05/17 08:00 83 04/05/17 08:00 50 04/05/17 07:30 78 24 50 04/05/17 05:27 84 25 50 04/05/17 04:00 50 04/05/17 04:00 82 04/05/17 04:00 97.5 81 18 115/70 96 Mechanical Ventilator 04/05/17 03:07 82 24 50 04/05/17 01:28 74 24 50 04/05/17 00:00 98.1 84 27 129/63 98 Mechanical Ventilator 50 04/05/17 00:00 50 04/05/17 00:00 82 04/04/17 23:11 81 26 50 04/04/17 21:29 83 25 50 04/04/17 20:22 98.1 73 18 129/72 97 Mechanical Ventilator 50 04/04/17 20:00 83 04/04/17 20:00 50 04/04/17 19:21 81 26 50 04/04/17 16:58 81 24 50 04/04/17 16:38 97.0 84 20 114/53 98 Venturi Mask 04/04/17 16:00 50 04/04/17 16:00 83 04/04/17 15:35 73 24 50 04/04/17 13:30 75 22 50 04/04/17 12:00 50 04/04/17 12:00 70 04/04/17 12:00 97.9 70 21 112/61 99 Mechanical Ventilator 50 Height (Feet): 5 Height (Inches): 6.00 Weight (Pounds): 250 Microbiology Date/Time Source Procedure Growth Status 04/02/17 15:30 Blood Blood Culture - Preliminary NO GROWTH AFTER 48 HOURS Resulted 04/02/17 15:30 Blood Blood Culture - Preliminary NO GROWTH AFTER 48 HOURS Resulted 04/03/17 04:00 Sputum Gram Stain - Final Resulted 04/03/17 04:00 Sputum Culture - Preliminary Gram Negative Bacillus 1 Resulted 04/02/17 15:30 Urine,Clean Catch Urine Culture - Final Escherichia Coli - Esbl Complete Laboratory Tests Test 04/05/17 03:15 White Blood Count 8.4 K/UL (4.8-10.8) Red Blood Count 2.85 M/UL (4.20-5.40) L Hemoglobin 8.7 G/DL (12.0-16.0) L Hematocrit 29.2 % (37.0-47.0) L Mean Corpuscular Volume 103 FL (80-99) H Mean Corpuscular Hemoglobin 30.4 PG (27.0-31.0) Mean Corpuscular Hemoglobin Concent 29.7 G/DL (32.0-36.0) L Red Cell Distribution Width 17.8 % (11.6-14.8) H Platelet Count 241 K/UL (150-450) Mean Platelet Volume 8.3 FL (6.5-10.1) Neutrophils (%) (Auto) 77.3 % (45.0-75.0) H Lymphocytes (%) (Auto) 9.3 % (20.0-45.0) L Monocytes (%) (Auto) 7.2 % (1.0-10.0) Eosinophils (%) (Auto) 5.7 % (0.0-3.0) H Basophils (%) (Auto) 0.5 % (0.0-2.0) Sodium Level 144 mEQ/L (135-145) Potassium Level 3.2 mEQ/L (3.4-4.9) L Chloride Level 105 mEQ/L (98-107) Carbon Dioxide Level 27 mEQ/L (20-30) Anion Gap 12 (5-15) Blood Urea Nitrogen 7 mg/dL (7-23) Creatinine 0.3 mg/dL (0.5-0.9) L Estimat Glomerular Filtration Rate mL/min (>60) Glucose Level 94 mg/dL (74-106) Calcium Level 9.2 mg/dL (8.6-10.2) Phosphorus Level 2.3 mg/dL (2.5-4.8) L Magnesium Level 1.6 mg/dL (1.7-2.5) L Total Bilirubin 0.4 mg/dL (0.0-1.2) Aspartate Amino Transf (AST/SGOT) 18 U/L (5-40) Alanine Aminotransferase (ALT/SGPT) 12 U/L (3-33) Alkaline Phosphatase 353 U/L (35-104) H Total Protein 6.9 g/dL (6.6-8.7) Albumin 2.6 g/dL (3.5-5.2) L Globulin 4.3 g/dL Albumin/Globulin Ratio 0.6 (1.0-2.7) L Current Medications Medications (Trade) Dose Ordered Sig/Boubacar Route PRN Reason Start Time Stop Time Status Last Admin Dose Admin Acetaminophen (Tylenol) 650 mg Q4H PRN ORAL FEVER 04/02/17 16:30 05/02/17 16:29 Albuterol/ Ipratropium (DuoNeb 0.5-3(2.5)mg/3ml) 3 ml Q4H PRN HHN Shortness of Breath 04/02/17 16:30 04/07/17 16:29 Dextrose (Dextrose 50%) STAT PRN IV Hypoglycemia 04/02/17 16:30 05/02/17 16:29 Heparin Sodium (Porcine) (Heparin 5000 units/ml) 5,000 units EVERY 12 HOURS SUBQ 04/02/17 21:00 05/02/17 20:59 04/05/17 10:02 Levetiracetam (Keppra) 1,500 mg TWICE A DAY GT 04/02/17 18:00 05/02/17 17:59 04/05/17 10:01 Levothyroxine Sodium (Synthroid) 25 mcg DAILY GT 04/03/17 09:00 05/03/17 08:59 04/05/17 10:01 Lorazepam (Ativan 2mg/ml 1ml) 2 mg Q2H PRN IV For Anxiety 04/02/17 16:30 04/09/17 16:29 Lorazepam (Ativan) 2 mg Q4H PRN GT AGITATION 04/02/17 17:00 04/09/17 16:59 Meropenem/Sodium Chloride (Merrem/Sodium Chloride) 110 ml @ 220 mls/hr Q8H IVPB 04/04/17 18:00 04/09/17 17:59 04/05/17 10:09 Morphine Sulfate (Morphine Sulfate) 4 mg Q4H PRN IVP Severe Pain (Pain Scale 7-10) 04/02/17 16:30 04/09/17 16:29 Ondansetron HCl (Zofran) 4 mg Q6H PRN IVP Nausea & Vomiting 04/02/17 16:30 05/02/17 16:29 Pantoprazole (Protonix) 40 mg DAILY IV 04/03/17 09:00 05/03/17 08:59 04/05/17 10:02 Phenytoin 150 mg 150 mg BID GT 04/02/17 21:00 05/02/17 20:59 04/05/17 10:01 Polyethylene Glycol (Miralax) 17 gm DAILYPRN PRN ORAL Constipation 04/02/17 16:30 05/02/17 16:29 TREE BARRIENTOS Apr 05, 2017 11:38
[2017-04-05 12:00] VITALS: BP 123/57
[2017-04-05 12:51] LABS: OTHERS PATHOLOGIST COMMENT
[2017-04-05] MEDS ORDERED: KCl 10% 40mEq/30ml liquid GT ONE (13:30)
[2017-04-05] MEDS ORDERED: Miralax 17gm pkt GT PRN (15:48)
[2017-04-05 16:00] VITALS: BP 119/61
--- NOTE | 2017-04-05 19:26 | Diagnostic Imaging Report ---
APPROVED REPORT CPT Code: 39890 Present Symptoms Lower Extremity Pain: Bilateral BILATERAL: Imaging reveals a patent deep venous system bilaterally. There is no evidence of thrombus within the femoral, popliteal or tibial segments. The greater saphenous veins are also within normal limits. Doppler indicates normal spontaneous flow within these segments.
--- NOTE | 2017-04-05 19:53 | Pulmonology Progress Note ---
Assessment/Plan Problems: (1) Acute and chronic respiratory failure (2) Vegetative state (3) Severe sepsis (4) Anoxic brain damage syndrome Respiratory: monitor respiratory rate, adjust FIO2 Cardiac: continue to monitor HR/BP Renal: F/U I&O, keep IV fluid, check electrolytes Infectious Disease: check cultures, continue antibiotics Gastrointestinal: continue feedings/current rate Endocrine: monitor blood sugar, check HgA1C, continue sliding scale insulin Hematologic: monitor H/H, transfuse if hgb<8.5 Neurologic: PRN Ativan, PRN Morphine, keep patient comfortable Prophylaxis: Protonix, Heparin 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: rn examiner, cardio, 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, consultants, case picker Subjective ROS Limited/Unobtainable: Yes Constitutional: Reports: no symptoms HEENT: Repors: no symptoms Respiratory: Reports: no symptoms Allergies: Coded Allergies: PEANUT (Verified Allergy, Unknown, 09/22/16) Uncoded Allergies: PEANUTS (Allergy, Unknown, 04/02/17) Objective Last 24 Hour Vital Signs Date Time Temp Pulse Resp B/P Pulse Ox O2 Delivery O2 Flow Rate FiO2 04/05/17 19:15 78 26 50 04/05/17 17:15 80 26 50 04/05/17 16:00 98.1 77 25 119/61 97 Mechanical Ventilator 50 04/05/17 16:00 50 04/05/17 16:00 76 04/05/17 15:11 73 26 50 04/05/17 13:21 83 32 50 04/05/17 12:00 99.2 81 28 123/57 98 Mechanical Ventilator 50 04/05/17 12:00 50 04/05/17 11:43 81 04/05/17 11:27 89 28 50 04/05/17 08:57 83 23 50 04/05/17 08:00 99.1 81 26 129/58 96 Mechanical Ventilator 50 04/05/17 08:00 83 04/05/17 08:00 50 04/05/17 07:30 78 24 50 04/05/17 05:27 84 25 50 04/05/17 04:00 50 04/05/17 04:00 82 04/05/17 04:00 97.5 81 18 115/70 96 Mechanical Ventilator 04/05/17 03:07 82 24 50 04/05/17 01:28 74 24 50 04/05/17 00:00 98.1 84 27 129/63 98 Mechanical Ventilator 50 04/05/17 00:00 50 04/05/17 00:00 82 04/04/17 23:11 81 26 50 04/04/17 21:29 83 25 50 04/04/17 20:22 98.1 73 18 129/72 97 Mechanical Ventilator 50 04/04/17 20:00 83 04/04/17 20:00 50 Intake and Output 04/04/17 04/05/17 19:00 07:00 Intake Total 300 ml 470 ml Output Total 1000 ml 700 ml Balance -700 ml -230 ml IV Total 110 ml Tube Feeding 300 ml 360 ml Output Urine Total 1000 ml 700 ml # Bowel Movements 1 1 HEENT: mucous membranes moist Respiratory/Chest: chest wall non-tender, lungs clear, normal breath sounds Breasts: no masses Cardiovascular: normal peripheral pulses Abdomen: normal bowel sounds, non distended, no scars Extremities: no cyanosis Microbiology Date/Time Source Procedure Growth Status 04/03/17 04:00 Sputum Gram Stain - Final Resulted 04/03/17 04:00 Sputum Culture - Preliminary Gram Negative Bacillus 1 Resulted Laboratory Tests 04/05/17 03:15: White Blood Count 8.4, Red Blood Count 2.85L, Hemoglobin 8.7L, Hematocrit 29.2L , Mean Corpuscular Volume 103H, Mean Corpuscular Hemoglobin 30.4, Mean Corpuscular Hemoglobin Concent 29.7L, Red Cell Distribution Width 17.8H, Platelet Count 241, Mean Platelet Volume 8.3, Neutrophils (%) (Auto) 77.3H, Lymphocytes (%) (Auto) 9.3L, Monocytes (%) (Auto) 7.2, Eosinophils (%) (Auto) 5.7H, Basophils (%) (Auto) 0.5, Sodium Level 144, Potassium Level 3.2L, Chloride Level 105, Carbon Dioxide Level 27, Anion Gap 12, Blood Urea Nitrogen 7 , Creatinine 0.3L, Estimat Glomerular Filtration Rate , Glucose Level 94, Calcium Level 9.2, Phosphorus Level 2.3L, Magnesium Level 1.6L, Total Bilirubin 0.4, Aspartate Amino Transf (AST/SGOT) 18, Alanine Aminotransferase (ALT/SGPT) 12, Alkaline Phosphatase 353H, Total Protein 6.9, Albumin 2.6L, Globulin 4.3, Albumin/Globulin Ratio 0.6L Current Medications Medications (Trade) Dose Ordered Sig/Boubacar Route PRN Reason Start Time Stop Time Status Last Admin Dose Admin Acetaminophen (Tylenol) 650 mg Q4H PRN ORAL FEVER 04/02/17 16:30 05/02/17 16:29 Albuterol/ Ipratropium (DuoNeb 0.5-3(2.5)mg/3ml) 3 ml Q4H PRN HHN Shortness of Breath 04/02/17 16:30 04/07/17 16:29 Dextrose (Dextrose 50%) STAT PRN IV Hypoglycemia 04/02/17 16:30 05/02/17 16:29 Heparin Sodium (Porcine) (Heparin 5000 units/ml) 5,000 units EVERY 12 HOURS SUBQ 04/02/17 21:00 05/02/17 20:59 04/05/17 10:02 Levetiracetam (Keppra) 1,500 mg Q12HR GT 04/05/17 21:00 05/05/17 20:59 Levothyroxine Sodium (Synthroid) 25 mcg DAILY GT 04/03/17 09:00 05/03/17 08:59 04/05/17 10:01 Lorazepam (Ativan 2mg/ml 1ml) 2 mg Q2H PRN IV For Anxiety 04/02/17 16:30 04/09/17 16:29 Lorazepam (Ativan) 2 mg Q4H PRN GT AGITATION 04/02/17 17:00 04/09/17 16:59 Meropenem/Sodium Chloride (Merrem/Sodium Chloride) 110 ml @ 220 mls/hr Q8H IVPB 04/04/17 18:00 04/09/17 17:59 04/05/17 17:37 Morphine Sulfate (Morphine Sulfate) 4 mg Q4H PRN IVP Severe Pain (Pain Scale 7-10) 04/02/17 16:30 04/09/17 16:29 Ondansetron HCl (Zofran) 4 mg Q6H PRN IVP Nausea & Vomiting 04/02/17 16:30 05/02/17 16:29 Pantoprazole (Protonix) 40 mg DAILY IV 04/03/17 09:00 05/03/17 08:59 04/05/17 10:02 Phenytoin 150 mg 150 mg BID GT 04/02/17 21:00 05/02/17 20:59 04/05/17 17:38 Polyethylene Glycol (Miralax) 17 gm DAILYPRN PRN GT Constipation 04/05/17 15:48 05/02/17 16:29 ANGELA DAVILA Apr 05, 2017 19:53
[2017-04-05 20:00] VITALS: BP 127/62
[2017-04-05] MEDS: levETIRAcetam 500mg/5ml Liquid GT SCH (21:00)
[2017-04-06] VITALS: BP 118/63
[2017-04-06] MEDS: Meropenem 1 GM in NS 110 ML IVPB SCH ×3 (02:07→17:19)
[2017-04-06 04:28] VITALS: BP 116/55
[2017-04-06] MEDS: Phenytoin Susp 100mg/4ml GT SCH ×2 (08:11→17:19)
[2017-04-06] MEDS: levETIRAcetam 500mg/5ml Liquid GT SCH ×2 (08:11→22:13)
[2017-04-06] MEDS: Levothyroxine 25mcg tab GT SCH (08:11)
[2017-04-06] MEDS: Pantoprazole Inj IV SCH (08:12)
[2017-04-06] MEDS: Heparin 5000 units/ml inj SUBQ SCH ×2 (08:13→22:15)
[2017-04-06 08:19] VITALS: BP 130/54
--- NOTE | 2017-04-06 11:57 | Pulmonology Progress Note ---
Assessment/Plan Problems: (1) Acute and chronic respiratory failure (2) Vegetative state (3) Severe sepsis (4) Anoxic brain damage syndrome Respiratory: monitor respiratory rate, adjust FIO2 Cardiac: continue to monitor HR/BP Renal: F/U I&O, keep IV fluid Infectious Disease: check cultures, continue antibiotics Gastrointestinal: hold feedings Endocrine: monitor blood sugar Neurologic: PRN Ativan Affect: PRN ativan Discussed with: nurses, consultants, case monitor Subjective ROS Limited/Unobtainable: No Constitutional: Reports: no symptoms HEENT: Repors: no symptoms Respiratory: Reports: no symptoms Allergies: Coded Allergies: PEANUT (Verified Allergy, Unknown, 09/22/16) Uncoded Allergies: PEANUTS (Allergy, Unknown, 04/02/17) Objective Last 24 Hour Vital Signs Date Time Temp Pulse Resp B/P Pulse Ox O2 Delivery O2 Flow Rate FiO2 04/06/17 11:12 80 25 50 04/06/17 09:23 81 25 50 04/06/17 09:08 50 04/06/17 08:19 97.3 83 26 130/54 97 Mechanical Ventilator 50 04/06/17 08:00 79 04/06/17 07:15 82 28 50 04/06/17 05:13 78 28 50 04/06/17 04:28 97.7 86 25 116/55 97 Mechanical Ventilator 50 04/06/17 04:00 50 04/06/17 04:00 80 04/06/17 03:08 80 24 50 04/06/17 00:58 77 27 50 04/06/17 00:00 97.5 74 25 118/63 98 Mechanical Ventilator 50 04/06/17 00:00 50 04/05/17 23:52 76 04/05/17 22:40 79 24 50 04/05/17 21:10 77 24 50 04/05/17 20:00 97.2 72 23 127/62 97 Mechanical Ventilator 50 04/05/17 20:00 50 04/05/17 19:37 76 04/05/17 19:15 78 26 50 04/05/17 17:15 80 26 50 04/05/17 16:00 98.1 77 25 119/61 97 Mechanical Ventilator 50 04/05/17 16:00 50 04/05/17 16:00 76 04/05/17 15:11 73 26 50 04/05/17 13:21 83 32 50 8/2/17 12:00 99.2 81 28 123/57 98 Mechanical Ventilator 50 04/05/17 12:00 50 Intake and Output 04/05/17 04/06/17 19:00 07:00 Intake Total 410 ml 590 ml Output Total 700 ml 400 ml Balance -290 ml 190 ml Intake Free Water 150 ml IV Total 110 ml 110 ml Tube Feeding 120 ml 330 ml Other 180 ml Output Urine Total 700 ml 400 ml # Bowel Movements 1 General Appearance: WD/WN HEENT: normocephalic, atraumatic Respiratory/Chest: chest wall non-tender, normal breath sounds Cardiovascular: normal rate Abdomen: normal bowel sounds, soft, non tender Genitourinary: normal external genitalia Extremities: no cyanosis, no clubbing Skin: no rash, no lesions Current Medications Medications (Trade) Dose Ordered Sig/Boubacar Route PRN Reason Start Time Stop Time Status Last Admin Dose Admin Acetaminophen (Tylenol) 650 mg Q4H PRN ORAL FEVER 04/02/17 16:30 05/02/17 16:29 Albuterol/ Ipratropium (DuoNeb 0.5-3(2.5)mg/3ml) 3 ml Q4H PRN HHN Shortness of Breath 04/02/17 16:30 04/07/17 16:29 Dextrose (Dextrose 50%) STAT PRN IV Hypoglycemia 04/02/17 16:30 05/02/17 16:29 Heparin Sodium (Porcine) (Heparin 5000 units/ml) 5,000 units EVERY 12 HOURS SUBQ 04/02/17 21:00 05/02/17 20:59 04/06/17 08:13 Levetiracetam (Keppra) 1,500 mg Q12HR GT 04/05/17 21:00 05/05/17 20:59 04/06/17 08:11 Levothyroxine Sodium (Synthroid) 25 mcg DAILY GT 04/03/17 09:00 05/03/17 08:59 04/06/17 08:11 Lorazepam (Ativan 2mg/ml 1ml) 2 mg Q2H PRN IV For Anxiety 04/02/17 16:30 04/09/17 16:29 Lorazepam (Ativan) 2 mg Q4H PRN GT AGITATION 04/02/17 17:00 04/09/17 16:59 Meropenem/Sodium Chloride (Merrem/Sodium Chloride) 110 ml @ 220 mls/hr Q8H IVPB 04/04/17 18:00 04/09/17 17:59 04/06/17 10:16 Morphine Sulfate (Morphine Sulfate) 4 mg Q4H PRN IVP Severe Pain (Pain Scale 7-10) 04/02/17 16:30 04/09/17 16:29 Ondansetron HCl (Zofran) 4 mg Q6H PRN IVP Nausea & Vomiting 04/02/17 16:30 05/02/17 16:29 Pantoprazole (Protonix) 40 mg DAILY IV 04/03/17 09:00 05/03/17 08:59 04/06/17 08:12 Phenytoin 150 mg 150 mg BID GT 04/02/17 21:00 05/02/17 20:59 04/06/17 08:11 Polyethylene Glycol (Miralax) 17 gm DAILYPRN PRN GT Constipation 04/05/17 15:48 05/02/17 16:29 ANGELA DAVILA Apr 06, 2017 11:57
[2017-04-06 12:33] VITALS: BP 122/57
[2017-04-06 16:00] VITALS: BP 124/63
[2017-04-06 20:00] VITALS: BP 111/59
--- NOTE | 2017-04-06 20:59 | Infectious Diseases Prog Note ---
Assessment/Plan Assessment/Plan ASSESSMENT: 76 y/o female with: // Recurrent ESBL(+) E.coli UTI - h/o qR-PSA, E.coli // h/o KPC-K.pneumoniae bacteremia 12/06 ?urinary vs biliary source vs CLABSI - repeat BCx cleared 10/11 SP Rx r/o recurrence. Surveillance BCx NGTD - old left PICC removed, tip not sent for culture // h/o possible aspiration PNA / pneumonitis - no evidence of recurrence, SCx Psa=colonizer - CXR 04/02: Bilateral pulmonary edema, possible small bilateral pleural effusions - h/o A.lwoffi, PSA, P.mirabilis // Severe sepsis SP - improved lactic acidosis // Leukocytosis - resolved // Hypotension SP // Chronic anoxic encephalopathy // Acute on chronic VDRF SP trach, PEG - inc FiO2 // Seizure disorder // h/o breast CA // Morbid obesity // MRSA, VRE colonized // No ABX allergies // Full Code PLAN: - continue meropenem d# 3 / ( 04/04 SP IV vancomycin, zosyn d# 3 ) - f/u cultures - monitor CBC, temperatures - monitor BMP - monitor CXR - vent support, trach care, aspiration precautions - seizure precautions Subjective Constitutional: Reports: no symptoms Allergies: Coded Allergies: PEANUT (Verified Allergy, Unknown, 09/22/16) Uncoded Allergies: PEANUTS (Allergy, Unknown, 04/02/17) Objective Vital Signs Last 24 Hour Vital Signs Date Time Temp Pulse Resp B/P Pulse Ox O2 Delivery O2 Flow Rate FiO2 04/06/17 20:00 77 04/06/17 20:00 98.8 76 24 111/59 95 Mechanical Ventilator 50 04/06/17 20:00 50 04/06/17 19:25 77 16 50 04/06/17 17:13 88 20 50 04/06/17 16:00 50 04/06/17 16:00 98.1 83 24 124/63 95 Mechanical Ventilator 50 04/06/17 16:00 89 04/06/17 15:19 85 26 50 04/06/17 13:00 86 27 50 04/06/17 12:33 97.0 82 25 122/57 95 Mechanical Ventilator 50 04/06/17 12:00 81 04/06/17 12:00 50 04/06/17 11:12 80 25 50 04/06/17 09:23 81 25 50 04/06/17 09:08 50 04/06/17 08:19 97.3 83 26 130/54 97 Mechanical Ventilator 50 04/06/17 08:00 79 04/06/17 07:15 82 28 50 04/06/17 05:13 78 28 50 04/06/17 04:28 97.7 86 25 116/55 97 Mechanical Ventilator 50 04/06/17 04:00 50 04/06/17 04:00 80 04/06/17 03:08 80 24 50 04/06/17 00:58 77 27 50 04/06/17 00:00 97.5 74 25 118/63 98 Mechanical Ventilator 50 04/06/17 00:00 50 04/05/17 23:52 76 04/05/17 22:40 79 24 50 04/05/17 21:10 77 24 50 Height (Feet): 5 Height (Inches): 6.00 Weight (Pounds): 250 Objective General Appearance: WD/WN HEENT: normocephalic, atraumatic Respiratory/Chest: chest wall non-tender, normal breath sounds Cardiovascular: normal rate Abdomen: normal bowel sounds, soft, non tender Genitourinary: normal external genitalia Extremities: no cyanosis, no clubbing Skin: no rash, no lesions Current Medications Medications (Trade) Dose Ordered Sig/Boubacar Route PRN Reason Start Time Stop Time Status Last Admin Dose Admin Acetaminophen (Tylenol) 650 mg Q4H PRN ORAL FEVER 04/02/17 16:30 05/02/17 16:29 Albuterol/ Ipratropium (DuoNeb 0.5-3(2.5)mg/3ml) 3 ml Q4H PRN HHN Shortness of Breath 04/02/17 16:30 04/07/17 16:29 Dextrose (Dextrose 50%) STAT PRN IV Hypoglycemia 04/02/17 16:30 05/02/17 16:29 Heparin Sodium (Porcine) (Heparin 5000 units/ml) 5,000 units EVERY 12 HOURS SUBQ 04/02/17 21:00 05/02/17 20:59 04/06/17 08:13 Levetiracetam (Keppra) 1,500 mg Q12HR GT 04/05/17 21:00 05/05/17 20:59 04/06/17 08:11 Levothyroxine Sodium (Synthroid) 25 mcg ACBREAKFAST GT 04/07/17 06:30 05/07/17 06:29 Lorazepam (Ativan 2mg/ml 1ml) 2 mg Q2H PRN IV For Anxiety 04/02/17 16:30 04/09/17 16:29 Lorazepam (Ativan) 2 mg Q4H PRN GT AGITATION 04/02/17 17:00 04/09/17 16:59 Meropenem/Sodium Chloride (Merrem/Sodium Chloride) 110 ml @ 220 mls/hr Q8H IVPB 04/04/17 18:00 04/09/17 17:59 04/06/17 17:19 Morphine Sulfate (Morphine Sulfate) 4 mg Q4H PRN IVP Severe Pain (Pain Scale 7-10) 04/02/17 16:30 04/09/17 16:29 Ondansetron HCl (Zofran) 4 mg Q6H PRN IVP Nausea & Vomiting 04/02/17 16:30 05/02/17 16:29 Pantoprazole (Protonix) 40 mg DAILY IV 04/03/17 09:00 05/03/17 08:59 04/06/17 08:12 Phenytoin 150 mg 150 mg BID GT 04/02/17 21:00 05/02/17 20:59 04/06/17 17:19 Polyethylene Glycol (Miralax) 17 gm DAILYPRN PRN GT Constipation 04/05/17 15:48 05/02/17 16:29 Kimani Vázquez M.D. Apr 06, 2017 20:58
[2017-04-07] VITALS: BP 132/79
[2017-04-07] MEDS: Meropenem 1 GM in NS 110 ML IVPB SCH ×3 (01:55→17:12)
[2017-04-07 04:00] VITALS: BP 128/72
[2017-04-07 05:26] LABS: BASOPHILS % (AUTO) 0.8 % (0.0-2.0); EOSINOPHILS % (AUTO) 7.6 % (0.0-3.0); LYMPHOCYTES % (AUTO) 18.7 % (20.0-45.0); MEAN CORPUSCULAR HEMOGLOBIN 31.1 PG (27.0-31.0); MEAN CORPUSCULAR HGB CONC 30.6 G/DL (32.0-36.0); MEAN CORPUSCULAR VOLUME 101 FL (80-99); MEAN PLATELET VOLUME 7.9 FL (6.5-10.1); MONOCYTES % (AUTO) 10.8 % (1.0-10.0); NEUTROPHILS % (AUTO) 62.2 % (45.0-75.0); PLATELET COUNT 241 K/UL (150-450); RED BLOOD COUNT 2.84 M/UL (4.20-5.40); RED CELL DISTRIBUTION WIDTH 17.3 % (11.6-14.8); WHITE BLOOD COUNT 5.5 K/UL (4.8-10.8)
[2017-04-07 06:03] LABS: ALANINE AMINOTRANSFERASE 12 U/L (3-33); ALBUMIN/GLOBULIN RATIO 0.6 (1.0-2.7); ANION GAP 8 (5-15); ASPARTATE AMINO TRANSFERASE 19 U/L (5-40); CALCIUM 9.2 mg/dL (8.6-10.2); CARBON DIOXIDE 32 mEQ/L (20-30); CHLORIDE 105 mEQ/L (98-107); CREATININE 0.3 mg/dL (0.5-0.9); HEMOLYSIS 2; POTASSIUM 3.2 mEQ/L (3.4-4.9); SODIUM 145 mEQ/L (135-145); TOTAL PROTEIN 6.6 g/dL (6.6-8.7)
[2017-04-07] MEDS: Levothyroxine 25mcg tab GT SCH (06:19)
[2017-04-07] MEDS: Pantoprazole Inj IV SCH (08:49)
[2017-04-07] MEDS: Heparin 5000 units/ml inj SUBQ SCH ×2 (08:49→22:10)
[2017-04-07] MEDS: Phenytoin Susp 100mg/4ml GT SCH ×2 (08:50→17:11)
[2017-04-07] MEDS: levETIRAcetam 500mg/5ml Liquid GT SCH ×2 (08:50→22:11)
[2017-04-07 08:51] VITALS: BP 125/68
[2017-04-07] MEDS ORDERED: KCl 10% 40mEq/30ml liquid NG ONE (09:00)
--- NOTE | 2017-04-07 11:23 | Diagnostic Imaging Report ---
Indication: DYSPNEA Technique: One view of the chest Comparison: 04/02/2017 Findings: Bilateral interstitial and alveolar congestion persists, but appears somewhat improved. Previously reported bilateral pleural effusions appear improved. The heart remains borderline enlarged. Tracheostomy remains Impression: Improved but persistent bilateral interstitial and alveolar edema, over 5 days
[2017-04-07 12:03] VITALS: BP 113/56
--- NOTE | 2017-04-07 12:46 | Pulmonology Progress Note ---
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, consultants, counseling case manager Subjective ROS Limited/Unobtainable: No Constitutional: Reports: no symptoms HEENT: Repors: no symptoms Respiratory: Reports: no symptoms Cardiovascular: Reports: no symptoms Allergies: Coded Allergies: PEANUT (Verified Allergy, Unknown, 09/22/16) Uncoded Allergies: PEANUTS (Allergy, Unknown, 04/02/17) Objective Last 24 Hour Vital Signs Date Time Temp Pulse Resp B/P Pulse Ox O2 Delivery O2 Flow Rate FiO2 04/07/17 12:03 98.8 82 19 113/56 96 Mechanical Ventilator 50 04/07/17 12:00 50 04/07/17 11:03 77 24 50 04/07/17 09:28 80 20 50 04/07/17 08:51 98.1 76 19 125/68 97 Mechanical Ventilator 50 04/07/17 08:00 50 04/07/17 08:00 78 04/07/17 07:30 79 21 50 04/07/17 05:16 77 19 50 04/07/17 04:00 50 04/07/17 04:00 98.4 80 24 128/72 97 Mechanical Ventilator 50 04/07/17 04:00 81 04/07/17 02:35 81 20 50 04/07/17 01:10 82 18 50 04/07/17 00:00 50 04/07/17 00:00 77 04/07/17 00:00 97.9 80 24 132/79 99 Mechanical Ventilator 50 04/06/17 23:19 73 18 50 04/06/17 21:06 77 14 50 04/06/17 20:00 77 04/06/17 20:00 98.8 76 24 111/59 95 Mechanical Ventilator 50 04/06/17 20:00 50 04/06/17 19:25 77 16 50 04/06/17 17:13 88 20 50 04/06/17 16:00 50 04/06/17 16:00 98.1 83 24 124/63 95 Mechanical Ventilator 50 04/06/17 16:00 89 04/06/17 15:19 85 26 50 04/06/17 13:00 86 27 50 Intake and Output 04/06/17 04/07/17 19:00 07:00 Intake Total 640 ml 550 ml Output Total 450 ml 300 ml Balance 190 ml 250 ml IV Total 220 ml 220 ml Tube Feeding 360 ml 330 ml Other 60 ml Output Urine Total 450 ml 300 ml # Voids 2 # Bowel Movements 1 4 General Appearance: WD/WN HEENT: normocephalic Respiratory/Chest: chest wall non-tender, lungs clear Cardiovascular: normal peripheral pulses, normal rate Abdomen: normal bowel sounds, soft, non tender Skin: no rash, no ulcers Neurologic/Psychiatric: abnormal gait, responsive Lymphatic: no groin adenopathy Laboratory Tests 04/07/17 03:40: White Blood Count 5.5, Red Blood Count 2.84L, Hemoglobin 8.8L, Hematocrit 28.8L , Mean Corpuscular Volume 101H, Mean Corpuscular Hemoglobin 31.1H, Mean Corpuscular Hemoglobin Concent 30.6L, Red Cell Distribution Width 17.3H, Platelet Count 241, Mean Platelet Volume 7.9, Neutrophils (%) (Auto) 62.2, Lymphocytes (%) (Auto) 18.7L, Monocytes (%) (Auto) 10.8H, Eosinophils (%) (Auto ) 7.6H, Basophils (%) (Auto) 0.8, Sodium Level 145, Potassium Level 3.2L, Chloride Level 105, Carbon Dioxide Level 32H, Anion Gap 8, Blood Urea Nitrogen 6L, Creatinine 0.3L, Estimat Glomerular Filtration Rate , Glucose Level 86, Calcium Level 9.2, Total Bilirubin 0.3, Aspartate Amino Transf (AST/SGOT) 19, Alanine Aminotransferase (ALT/SGPT) 12, Alkaline Phosphatase 286H, Pro-B-Type Natriuretic Peptide 482H, Total Protein 6.6, Albumin 2.5L, Globulin 4.1, Albumin /Globulin Ratio 0.6L Current Medications Medications (Trade) Dose Ordered Sig/Boubacar Route PRN Reason Start Time Stop Time Status Last Admin Dose Admin Acetaminophen (Tylenol) 650 mg Q4H PRN ORAL FEVER 04/02/17 16:30 05/02/17 16:29 Albuterol/ Ipratropium (DuoNeb 0.5-3(2.5)mg/3ml) 3 ml Q4H PRN HHN Shortness of Breath 04/02/17 16:30 04/07/17 16:29 Dextrose (Dextrose 50%) STAT PRN IV Hypoglycemia 04/02/17 16:30 05/02/17 16:29 Heparin Sodium (Porcine) (Heparin 5000 units/ml) 5,000 units EVERY 12 HOURS SUBQ 04/02/17 21:00 05/02/17 20:59 04/07/17 08:49 Levetiracetam (Keppra) 1,500 mg Q12HR GT 04/05/17 21:00 05/05/17 20:59 04/07/17 08:50 Levothyroxine Sodium (Synthroid) 25 mcg ACBREAKFAST GT 04/07/17 06:30 05/07/17 06:29 04/07/17 06:19 Lorazepam (Ativan 2mg/ml 1ml) 2 mg Q2H PRN IV For Anxiety 04/02/17 16:30 04/09/17 16:29 Lorazepam (Ativan) 2 mg Q4H PRN GT AGITATION 04/02/17 17:00 04/09/17 16:59 Meropenem/Sodium Chloride (Merrem/Sodium Chloride) 110 ml @ 220 mls/hr Q8H IVPB 04/04/17 18:00 04/09/17 17:59 04/07/17 10:26 Morphine Sulfate (Morphine Sulfate) 4 mg Q4H PRN IVP Severe Pain (Pain Scale 7-10) 04/02/17 16:30 04/09/17 16:29 Ondansetron HCl (Zofran) 4 mg Q6H PRN IVP Nausea & Vomiting 04/02/17 16:30 05/02/17 16:29 Pantoprazole (Protonix) 40 mg DAILY IV 04/03/17 09:00 05/03/17 08:59 04/07/17 08:49 Phenytoin 150 mg 150 mg BID GT 04/02/17 21:00 8/29/17 20:59 04/07/17 08:50 Polyethylene Glycol (Miralax) 17 gm DAILYPRN PRN GT Constipation 04/05/17 15:48 05/02/17 16:29 ANGELA DAVILA Apr 07, 2017 12:46
--- NOTE | 2017-04-07 14:45 | Infectious Diseases Prog Note ---
Assessment/Plan Assessment/Plan ASSESSMENT: 76 y/o female with: // Recurrent ESBL(+) E.coli UTI - h/o qR-PSA, E.coli // h/o KPC-K.pneumoniae bacteremia 12/06 ?urinary vs biliary source vs CLABSI - repeat BCx cleared 10/11 SP Rx w/o recurrence. blood cx from 04/03 are negative. - old left PICC removed, tip not sent for culture // h/o possible aspiration PNA / pneumonitis - no evidence of recurrence, improving pulm status w/ decreased interstitial edema on repeat CXR 04/07/17, SCx Psa=colonizer - CXR 04/02: Bilateral pulmonary edema, possible small bilateral pleural effusions - h/o A.lwoffi, PSA, P.mirabilis // Severe sepsis SP - improved lactic acidosis // Leukocytosis - resolved // Hypotension SP // Chronic anoxic encephalopathy // Acute on chronic VDRF SP trach, PEG - inc FiO2 // Seizure disorder // h/o breast CA // Morbid obesity // MRSA, VRE colonized // No ABX allergies // Full Code PLAN: - continue meropenem d# for ESBL UTI ( 04/04 SP IV vancomycin, zosyn d# 3 ) - f/u cultures - monitor CBC, temperatures - monitor BMP - monitor CXR - vent support, trach care, aspiration precautions - seizure precautions Subjective ROS Limited/Unobtainable: Yes Allergies: Coded Allergies: PEANUT (Verified Allergy, Unknown, 09/22/16) Uncoded Allergies: PEANUTS (Allergy, Unknown, 04/02/17) Subjective afebrile o/n. Objective Vital Signs Last 24 Hour Vital Signs Date Time Temp Pulse Resp B/P Pulse Ox O2 Delivery O2 Flow Rate FiO2 04/07/17 12:03 98.8 82 19 113/56 96 Mechanical Ventilator 50 04/07/17 12:00 50 04/07/17 11:03 77 24 50 04/07/17 09:28 80 20 50 04/07/17 08:51 98.1 76 19 125/68 97 Mechanical Ventilator 50 04/07/17 08:00 50 04/07/17 08:00 78 04/07/17 07:30 79 21 50 04/07/17 05:16 77 19 50 04/07/17 04:00 50 04/07/17 04:00 98.4 80 24 128/72 97 Mechanical Ventilator 50 04/07/17 04:00 81 04/07/17 02:35 81 20 50 04/07/17 01:10 82 18 50 04/07/17 00:00 50 04/07/17 00:00 77 04/07/17 00:00 97.9 80 24 132/79 99 Mechanical Ventilator 50 04/06/17 23:19 73 18 50 04/06/17 21:06 77 14 50 04/06/17 20:00 77 04/06/17 20:00 98.8 76 24 111/59 95 Mechanical Ventilator 50 04/06/17 20:00 50 04/06/17 19:25 77 16 50 04/06/17 17:13 88 20 50 04/06/17 16:00 50 04/06/17 16:00 98.1 83 24 124/63 95 Mechanical Ventilator 50 04/06/17 16:00 89 04/06/17 15:19 85 26 50 Height (Feet): 5 Height (Inches): 6.00 Weight (Pounds): 250 Objective General Appearance: WD/WN HEENT: normocephalic, atraumatic, trach in place, no purulence in aspiration or around trach, on vent support Respiratory/Chest: chest wall non-tender, coarse breath sounds Cardiovascular: normal rate Abdomen: normal bowel sounds, soft, non tender, peg in place Genitourinary: normal external genitalia, no gould Extremities: no cyanosis, no clubbing, trace ble edema, PIV c/d/i Skin: no rash, no lesions Rads Patient : BEVSTEFAN Referring Physician: ANEGLA DAVILA ID Number: [id number] Service Date: 04/07/17 : 1940 Report Date: 04/07/17 Gender: F Accession No.: [id number] Location: 2W Procedure: XRAY Chest 1v Indication: DYSPNEA Technique: One view of the chest Comparison: 04/02/2017 Findings: Bilateral interstitial and alveolar congestion persists, but appears somewhat improved. Previously reported bilateral pleural effusions appear improved. The heart remains borderline enlarged. Tracheostomy remains Impression: Improved but persistent bilateral interstitial and alveolar edema, over 5 days Dictated By: JULIA ARDON M.D. Electronically Signed By: JULIA ARDON M.D. Signed Date/Time 04/07/17 1687 CC: KAYASAMANMARIOLAURA no new cx results Laboratory Tests Test 04/07/17 03:40 White Blood Count 5.5 K/UL (4.8-10.8) Red Blood Count 2.84 M/UL (4.20-5.40) L Hemoglobin 8.8 G/DL (12.0-16.0) L Hematocrit 28.8 % (37.0-47.0) L Mean Corpuscular Volume 101 FL (80-99) H Mean Corpuscular Hemoglobin 31.1 PG (27.0-31.0) H Mean Corpuscular Hemoglobin Concent 30.6 G/DL (32.0-36.0) L Red Cell Distribution Width 17.3 % (11.6-14.8) H Platelet Count 241 K/UL (150-450) Mean Platelet Volume 7.9 FL (6.5-10.1) Neutrophils (%) (Auto) 62.2 % (45.0-75.0) Lymphocytes (%) (Auto) 18.7 % (20.0-45.0) L Monocytes (%) (Auto) 10.8 % (1.0-10.0) H Eosinophils (%) (Auto) 7.6 % (0.0-3.0) H Basophils (%) (Auto) 0.8 % (0.0-2.0) Sodium Level 145 mEQ/L (135-145) Potassium Level 3.2 mEQ/L (3.4-4.9) L Chloride Level 105 mEQ/L (98-107) Carbon Dioxide Level 32 mEQ/L (20-30) H Anion Gap 8 (5-15) Blood Urea Nitrogen 6 mg/dL (7-23) L Creatinine 0.3 mg/dL (0.5-0.9) L Estimat Glomerular Filtration Rate mL/min (>60) Glucose Level 86 mg/dL (74-106) Calcium Level 9.2 mg/dL (8.6-10.2) Total Bilirubin 0.3 mg/dL (0.0-1.2) Aspartate Amino Transf (AST/SGOT) 19 U/L (5-40) Alanine Aminotransferase (ALT/SGPT) 12 U/L (3-33) Alkaline Phosphatase 286 U/L (35-104) H Pro-B-Type Natriuretic Peptide 482 pg/mL (0-450) H Total Protein 6.6 g/dL (6.6-8.7) Albumin 2.5 g/dL (3.5-5.2) L Globulin 4.1 g/dL Albumin/Globulin Ratio 0.6 (1.0-2.7) L Current Medications Medications (Trade) Dose Ordered Sig/Boubacar Route PRN Reason Start Time Stop Time Status Last Admin Dose Admin Acetaminophen (Tylenol) 650 mg Q4H PRN ORAL FEVER 04/02/17 16:30 05/02/17 16:29 Albuterol/ Ipratropium (DuoNeb 0.5-3(2.5)mg/3ml) 3 ml Q4H PRN HHN Shortness of Breath 04/02/17 16:30 04/07/17 16:29 Dextrose (Dextrose 50%) STAT PRN IV Hypoglycemia 04/02/17 16:30 05/02/17 16:29 Heparin Sodium (Porcine) (Heparin 5000 units/ml) 5,000 units EVERY 12 HOURS SUBQ 04/02/17 21:00 05/02/17 20:59 04/07/17 08:49 Levetiracetam (Keppra) 1,500 mg Q12HR GT 04/05/17 21:00 05/05/17 20:59 04/07/17 08:50 Levothyroxine Sodium (Synthroid) 25 mcg ACBREAKFAST GT 04/07/17 06:30 05/07/17 06:29 04/07/17 06:19 Lorazepam (Ativan 2mg/ml 1ml) 2 mg Q2H PRN IV For Anxiety 04/02/17 16:30 04/09/17 16:29 Lorazepam (Ativan) 2 mg Q4H PRN GT AGITATION 04/02/17 17:00 04/09/17 16:59 Meropenem/Sodium Chloride (Merrem/Sodium Chloride) 110 ml @ 220 mls/hr Q8H IVPB 04/04/17 18:00 04/09/17 17:59 04/07/17 10:26 Morphine Sulfate (Morphine Sulfate) 4 mg Q4H PRN IVP Severe Pain (Pain Scale 7-10) 04/02/17 16:30 04/09/17 16:29 Ondansetron HCl (Zofran) 4 mg Q6H PRN IVP Nausea & Vomiting 04/02/17 16:30 05/02/17 16:29 Pantoprazole (Protonix) 40 mg DAILY IV 04/03/17 09:00 05/03/17 08:59 04/07/17 08:49 Phenytoin 150 mg 150 mg BID GT 04/02/17 21:00 05/02/17 20:59 04/07/17 08:50 Polyethylene Glycol (Miralax) 17 gm DAILYPRN PRN GT Constipation 04/05/17 15:48 05/02/17 16:29 Kimani Vázquez M.D. Apr 07, 2017 14:45
[2017-04-07 15:22] VITALS: BP 125/56
[2017-04-07 19:12] VITALS: BP 114/51
[2017-04-08 00:55] VITALS: BP 139/69
[2017-04-08] MEDS: Meropenem 1 GM in NS 110 ML IVPB SCH ×3 (02:01→17:56)
[2017-04-08 04:00] VITALS: BP 118/54
[2017-04-08] MEDS: Levothyroxine 25mcg tab GT SCH (06:11)
[2017-04-08 07:43] VITALS: BP 112/43
[2017-04-08] MEDS: levETIRAcetam 500mg/5ml Liquid GT SCH ×2 (08:26→20:33)
[2017-04-08] MEDS: Pantoprazole Inj IV SCH (08:27)
[2017-04-08] MEDS: Phenytoin Susp 100mg/4ml GT SCH ×2 (08:27→17:55)
[2017-04-08] MEDS: Heparin 5000 units/ml inj SUBQ SCH ×2 (08:36→20:35)
--- NOTE | 2017-04-08 09:51 | Pulmonology Progress Note ---
Assessment/Plan Assessment/Plan ASSESSMENT sepsis acute on chronic respiratory failure VDRF/trach chronic anoxic encephalopathy recurrent ESBL E coli UTI hypotension -resolved seizure disorder morbid obesity dysphagia, G tube anemia hypokalemia PLAN OF CARE DIANA vent support pulmonary toilet baseline ABG and titarte settings as needed fup with CXR abx ID follows urine c + E coli ESBL, sputum cx colonized ( as per ID0 , blood cx preliminary negative strict aspiration precautions, GT feeding, monitor tolerance seizure precautions, continue Keppra and Dilantin monitor HH transfuse prn with goal to keep Hgb above 7 monitor lytes, replace as needed DVT GI prophylaxis bowel regimen case discussed and evaluated by supervising physician Subjective Allergies: Coded Allergies: PEANUT (Verified Allergy, Unknown, 09/22/16) Uncoded Allergies: PEANUTS (Allergy, Unknown, 04/02/17) Subjective leucocytosis resolved, afebrile no sigsn of respiratory distress on current settings Objective Last 24 Hour Vital Signs Date Time Temp Pulse Resp B/P Pulse Ox O2 Delivery O2 Flow Rate FiO2 04/08/17 09:00 89 17 50 04/08/17 08:04 50 04/08/17 08:00 83 04/08/17 07:43 97.9 80 14 112/43 95 Mechanical Ventilator 50 04/08/17 07:00 80 14 50 04/08/17 04:57 79 14 50 04/08/17 04:00 50 04/08/17 04:00 98.7 73 18 118/54 95 Mechanical Ventilator 50 04/08/17 04:00 82 04/08/17 03:18 78 14 50 04/08/17 01:12 83 14 50 04/08/17 00:55 98.4 82 18 139/69 97 Mechanical Ventilator 50 04/08/17 00:00 50 04/08/17 00:00 84 04/07/17 22:57 80 22 50 04/07/17 20:36 77 22 50 04/07/17 20:00 83 04/07/17 19:13 50 04/07/17 19:12 98.2 82 18 114/51 97 Mechanical Ventilator 50 04/07/17 18:32 83 22 50 04/07/17 17:09 77 22 50 04/07/17 16:08 50 04/07/17 16:00 50 04/07/17 16:00 82 04/07/17 15:22 98.5 81 17 125/56 97 Mechanical Ventilator 50 04/07/17 14:58 78 19 50 04/07/17 12:43 80 21 50 04/07/17 12:03 98.8 82 19 113/56 96 Mechanical Ventilator 50 04/07/17 12:00 50 04/07/17 11:51 79 04/07/17 11:03 77 24 50 Intake and Output 04/07/17 04/08/17 19:00 07:00 Intake Total 495 ml 365 ml Balance 495 ml 365 ml Intake Free Water 50 ml 100 ml IV Total 110 ml 220 ml Tube Feeding 285 ml 45 ml Other 50 ml # Voids 1 1 # Bowel Movements 4 4 General Appearance: no acute distress, other - morbidly obese, bedridden, AA female vent dependent vent AC 600-12-50 HEENT: normocephalic, atraumatic, status post trach - Shiley #8, secretions small, white, thick , other Respiratory/Chest: lungs clear - with moderate air entry , no respiratory distress Cardiovascular: normal peripheral pulses, normal rate - SR on tele Abdomen: normal bowel sounds, soft, non tender - obese , other - G tube Genitourinary: other - Newman Extremities: other - spastic LE Neurologic/Psychiatric: abnormal gait - bedridden , other - bedridden, Musculoskeletal: atrophy - BLE Current Medications Medications (Trade) Dose Ordered Sig/Boubacar Route PRN Reason Start Time Stop Time Status Last Admin Dose Admin Acetaminophen (Tylenol) 650 mg Q4H PRN ORAL FEVER 04/02/17 16:30 05/02/17 16:29 Dextrose (Dextrose 50%) STAT PRN IV Hypoglycemia 04/02/17 16:30 05/02/17 16:29 Heparin Sodium (Porcine) (Heparin 5000 units/ml) 5,000 units EVERY 12 HOURS SUBQ 04/02/17 21:00 05/02/17 20:59 04/08/17 08:36 Levetiracetam (Keppra) 1,500 mg Q12HR GT 04/05/17 21:00 05/05/17 20:59 04/08/17 08:26 Levothyroxine Sodium (Synthroid) 25 mcg ACBREAKFAST GT 04/07/17 06:30 05/07/17 06:29 04/08/17 06:11 Lorazepam (Ativan 2mg/ml 1ml) 2 mg Q2H PRN IV For Anxiety 04/02/17 16:30 04/09/17 16:29 Lorazepam (Ativan) 2 mg Q4H PRN GT AGITATION 04/02/17 17:00 04/09/17 16:59 Meropenem/Sodium Chloride (Merrem/Sodium Chloride) 110 ml @ 220 mls/hr Q8H IVPB 04/04/17 18:00 04/10/17 23:59 04/08/17 08:52 Morphine Sulfate (Morphine Sulfate) 4 mg Q4H PRN IVP Severe Pain (Pain Scale 7-10) 04/02/17 16:30 04/09/17 16:29 Ondansetron HCl (Zofran) 4 mg Q6H PRN IVP Nausea & Vomiting 04/02/17 16:30 05/02/17 16:29 Pantoprazole (Protonix) 40 mg DAILY IV 04/03/17 09:00 05/03/17 08:59 04/08/17 08:27 Phenytoin 150 mg 150 mg BID GT 04/02/17 21:00 05/02/17 20:59 04/08/17 08:27 Polyethylene Glycol (Miralax) 17 gm DAILYPRN PRN GT Constipation 04/05/17 15:48 05/02/17 16:29 Dennis MarreroLibby brambila NP Apr 08, 2017 09:51
[2017-04-08 11:59] VITALS: BP 115/46
--- NOTE | 2017-04-08 14:20 | Infectious Diseases Prog Note ---
Assessment/Plan Assessment/Plan ASSESSMENT: 76 y/o female with: // Recurrent ESBL(+) E.coli UTI - h/o qR-PSA, E.coli // h/o KPC-K.pneumoniae bacteremia 12/06 ?urinary vs biliary source vs CLABSI - repeat BCx cleared 10/11 SP Rx w/o recurrence. blood cx from 04/03 are negative. 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, PEG - inc FiO2 // Seizure disorder // h/o breast CA // Morbid obesity // MRSA, VRE colonized // No ABX allergies // Full Code PLAN: - continue meropenem d# 5 / 7 for ESBL UTI ( 04/04 SP IV vancomycin, zosyn d# 3 ) - f/u cultures - monitor CBC, temperatures - monitor BMP - monitor CXR - vent support, trach care, aspiration precautions - seizure precautions Subjective Constitutional: Reports: no symptoms HEENT: Reports: no symptoms Respiratory: Reports: no symptoms Cardiovascular: Reports: no symptoms Allergies: Coded Allergies: PEANUT (Verified Allergy, Unknown, 09/22/16) Uncoded Allergies: PEANUTS (Allergy, Unknown, 04/02/17) Subjective afebrile o/n. Objective Vital Signs Last 24 Hour Vital Signs Date Time Temp Pulse Resp B/P Pulse Ox O2 Delivery O2 Flow Rate FiO2 04/08/17 13:00 84 14 40 04/08/17 12:01 50 04/08/17 12:00 85 04/08/17 11:59 97.9 80 14 115/46 98 Mechanical Ventilator 50 04/08/17 11:00 82 17 50 04/08/17 09:00 89 17 50 04/08/17 08:04 50 04/08/17 08:00 83 04/08/17 07:43 97.9 80 14 112/43 95 Mechanical Ventilator 50 04/08/17 07:00 80 14 50 04/08/17 04:57 79 14 50 04/08/17 04:00 50 04/08/17 04:00 98.7 73 18 118/54 95 Mechanical Ventilator 50 04/08/17 04:00 82 04/08/17 03:18 78 14 50 04/08/17 01:12 83 14 50 04/08/17 00:55 98.4 82 18 139/69 97 Mechanical Ventilator 50 04/08/17 00:00 50 04/08/17 00:00 84 04/07/17 22:57 80 22 50 04/07/17 20:36 77 22 50 04/07/17 20:00 83 04/07/17 19:13 50 04/07/17 19:12 98.2 82 18 114/51 97 Mechanical Ventilator 50 04/07/17 18:32 83 22 50 04/07/17 17:09 77 22 50 04/07/17 16:08 50 04/07/17 16:00 50 04/07/17 16:00 82 04/07/17 15:22 98.5 81 17 125/56 97 Mechanical Ventilator 50 04/07/17 14:58 78 19 50 Height (Feet): 5 Height (Inches): 6.00 Weight (Pounds): 250 Objective General Appearance: WD/WN HEENT: normocephalic, atraumatic, trach in place, no purulence in aspiration or around trach, on vent support Respiratory/Chest: chest wall non-tender, coarse breath sounds Cardiovascular: normal rate Abdomen: normal bowel sounds, soft, non tender, peg in place Genitourinary: normal external genitalia, no gould Extremities: no cyanosis, no clubbing, trace ble edema, PIV c/d/i Skin: no rash, no lesions Rads Patient : STEFAN PABLO Referring Physician: ANGELA DAVILA ID Number: [id number] Service Date: 04/07/17 : 1940 Report Date: 04/07/17 Gender: F Accession No.: [id number] Location: 2W Procedure: XRAY Chest 1v Indication: DYSPNEA Technique: One view of the chest Comparison: 04/02/2017 Findings: Bilateral interstitial and alveolar congestion persists, but appears somewhat improved. Previously reported bilateral pleural effusions appear improved. The heart remains borderline enlarged. Tracheostomy remains Impression: Improved but persistent bilateral interstitial and alveolar edema, over 5 days Dictated By: JULIA ARDON M.D. Electronically Signed By: JULIA ARDON M.D. Signed Date/Time 04/07/17 1060 CC: ANGELA DAVILA Current Medications Medications (Trade) Dose Ordered Sig/Boubacar Route PRN Reason Start Time Stop Time Status Last Admin Dose Admin Acetaminophen (Tylenol) 650 mg Q4H PRN ORAL FEVER 04/02/17 16:30 05/02/17 16:29 Dextrose (Dextrose 50%) STAT PRN IV Hypoglycemia 04/02/17 16:30 05/02/17 16:29 Heparin Sodium (Porcine) (Heparin 5000 units/ml) 5,000 units EVERY 12 HOURS SUBQ 04/02/17 21:00 05/02/17 20:59 04/08/17 08:36 Levetiracetam (Keppra) 1,500 mg Q12HR GT 04/05/17 21:00 05/05/17 20:59 04/08/17 08:26 Levothyroxine Sodium (Synthroid) 25 mcg ACBREAKFAST GT 04/07/17 06:30 05/07/17 06:29 04/08/17 06:11 Lorazepam (Ativan 2mg/ml 1ml) 2 mg Q2H PRN IV For Anxiety 04/02/17 16:30 04/09/17 16:29 Lorazepam (Ativan) 2 mg Q4H PRN GT AGITATION 04/02/17 17:00 04/09/17 16:59 Meropenem/Sodium Chloride (Merrem/Sodium Chloride) 110 ml @ 220 mls/hr Q8H IVPB 04/04/17 18:00 04/10/17 23:59 04/08/17 08:52 Morphine Sulfate (Morphine Sulfate) 4 mg Q4H PRN IVP Severe Pain (Pain Scale 7-10) 04/02/17 16:30 04/09/17 16:29 Ondansetron HCl (Zofran) 4 mg Q6H PRN IVP Nausea & Vomiting 04/02/17 16:30 05/02/17 16:29 Pantoprazole (Protonix) 40 mg DAILY IV 04/03/17 09:00 05/03/17 08:59 04/08/17 08:27 Phenytoin 150 mg 150 mg BID GT 04/02/17 21:00 05/02/17 20:59 04/08/17 08:27 Polyethylene Glycol (Miralax) 17 gm DAILYPRN PRN GT Constipation 04/05/17 15:48 05/02/17 16:29 Kimani Vázquez M.D. Apr 08, 2017 14:20
[2017-04-08] MEDS ORDERED: DuoNeb 0.5-3(2.5)mg/3ml neb HHN PRN (15:15)
[2017-04-08] MEDS ORDERED: LORazepam Inj 2mg/ml 1ml IV PRN (16:30)
[2017-04-08] MEDS ORDERED: Morphine Sulfate 4mg/ml Inj IVP PRN (16:30)
[2017-04-08 16:34] VITALS: BP 101/43
[2017-04-08] MEDS ORDERED: LORazepam 1mg tab GT PRN (17:00)
[2017-04-08 20:00] VITALS: BP 101/48
[2017-04-08] MEDS ORDERED: Tubing IV Secondary IV ONE ×2 (21:03→21:08)
[2017-04-08] MEDS ORDERED: NS 275ml ONE ×2 (21:03→21:08)
[2017-04-09] VITALS: BP 106/51
[2017-04-09] MEDS: Meropenem 1 GM in NS 110 ML IVPB SCH ×2 (02:11→10:22)
[2017-04-09 04:00] VITALS: BP 112/58
[2017-04-09] MEDS: Levothyroxine 25mcg tab GT SCH (05:43)
[2017-04-09 05:47] LABS: BASOPHILS % (AUTO) 0.8 % (0.0-2.0); LYMPHOCYTES % (AUTO) 20.4 % (20.0-45.0); MEAN CORPUSCULAR HEMOGLOBIN 31.1 PG (27.0-31.0); MEAN CORPUSCULAR HGB CONC 30.9 G/DL (32.0-36.0); MEAN CORPUSCULAR VOLUME 101 FL (80-99); MEAN PLATELET VOLUME 9.3 FL (6.5-10.1); MONOCYTES % (AUTO) 6.5 % (1.0-10.0); NEUTROPHILS % (AUTO) 64.3 % (45.0-75.0); PLATELET COUNT 174 K/UL (150-450); RED BLOOD COUNT 3.13 M/UL (4.20-5.40); WHITE BLOOD COUNT 5.8 K/UL (4.8-10.8)
[2017-04-09 06:17] LABS: ANION GAP 12 (5-15); CALCIUM 9.5 mg/dL (8.6-10.2); CARBON DIOXIDE 30 mEQ/L (20-30); CHLORIDE 102 mEQ/L (98-107); CREATININE 0.3 mg/dL (0.5-0.9); HEMOLYSIS 47; MAGNESIUM 1.5 mg/dL (1.7-2.5); POTASSIUM 4.7 mEQ/L (3.4-4.9); SODIUM 144 mEQ/L (135-145)
[2017-04-09] MEDS ORDERED: MEROPENEM-1 GM/50 ML IV (07:58)
[2017-04-09] MEDS ORDERED: Phenytoin Susp 100mg/4ml GT SCH (08:00)
--- NOTE | 2017-04-09 08:01 | Pulmonology Progress Note ---
Assessment/Plan Assessment/Plan ASSESSMENT sepsis acute on chronic respiratory failure VDRF/trach chronic anoxic encephalopathy recurrent ESBL E coli UTI hypotension -resolved seizure disorder morbid obesity dysphagia, G tube anemia e/lyte imbalance: hypokalemia , hypo Mg PLAN OF CARE [facility] vent support pulmonary toilet baseline ABG and titarte settings as needed fup with CXR abx ID follows urine c + E coli ESBL, sputum cx colonized ( as per ID0 , blood cx preliminary negative strict aspiration precautions, GT feeding, monitor tolerance seizure precautions, continue Keppra and Dilantin monitor HH transfuse prn with goal to keep Hgb above 7 monitor lytes, replace as needed DVT GI prophylaxis bowel regimen replace Mg today dc today on 2 more days of meropenem as per ID recommendations discussed with window caser over the phone , will authorize abx at [facility] case discussed and evaluated by supervising physician Subjective Allergies: Coded Allergies: PEANUT (Verified Allergy, Unknown, 09/22/16) Uncoded Allergies: PEANUTS (Allergy, Unknown, 04/02/17) Subjective leucocytosis resolved, afebrile no signs of respiratory distress on current settings Mg-1.5 Objective Last 24 Hour Vital Signs Date Time Temp Pulse Resp B/P Pulse Ox O2 Delivery O2 Flow Rate FiO2 04/09/17 06:46 84 12 40 04/09/17 05:25 81 12 40 04/09/17 04:00 40 04/09/17 04:00 97.9 81 15 112/58 94 Mechanical Ventilator 40 04/09/17 03:47 80 04/09/17 02:39 76 12 40 04/09/17 01:23 81 13 40 04/09/17 00:00 40 04/09/17 00:00 98.0 82 15 106/51 98 Mechanical Ventilator 40 04/08/17 23:37 80 04/08/17 23:27 84 13 40 04/08/17 21:18 79 13 40 04/08/17 20:55 83 04/08/17 20:00 40 04/08/17 20:00 97.7 88 14 101/48 96 Mechanical Ventilator 40 04/08/17 19:34 87 13 40 04/08/17 17:33 87 13 40 04/08/17 16:37 40 04/08/17 16:34 98.2 81 14 101/43 96 Mechanical Ventilator 40 04/08/17 16:00 81 04/08/17 15:00 85 15 40 04/08/17 13:00 84 14 40 04/08/17 12:01 50 04/08/17 12:00 85 04/08/17 11:59 97.9 80 14 115/46 98 Mechanical Ventilator 50 04/08/17 11:00 82 17 50 04/08/17 09:00 89 17 50 04/08/17 08:04 50 04/08/17 08:00 83 Intake and Output 04/08/17 04/09/17 19:00 07:00 Intake Total 800 ml 815 ml Output Total 500 ml Balance 800 ml 315 ml Intake Free Water 100 ml IV Total 210 ml 220 ml Tube Feeding 490 ml 595 ml Output Urine Total 500 ml # Voids 3 2 # Bowel Movements 5 1 Objective General Appearance: no acute distress, other - morbidly obese, bedridden, AA female vent dependent vent AC 600-12-50 HEENT: normocephalic, atraumatic, status post trach - Shiley #8, secretions small, white, thick , other Respiratory/Chest: lungs clear - with moderate air entry , no respiratory distress Cardiovascular: normal peripheral pulses, normal rate - SR on tele Abdomen: normal bowel sounds, soft, non tender - obese , - G tube Genitourinary: other - Newman Extremities: other - spastic LE Neurologic/Psychiatric: abnormal gait - bedridden , other - bedridden, Musculoskeletal: atrophy - BLE Laboratory Tests 04/09/17 04:11: White Blood Count 5.8, Red Blood Count 3.13L, Hemoglobin 9.8L, Hematocrit 31.6L , Mean Corpuscular Volume 101H, Mean Corpuscular Hemoglobin 31.1H, Mean Corpuscular Hemoglobin Concent 30.9L, Red Cell Distribution Width 18.0H, Platelet Count 174, Mean Platelet Volume 9.3, Neutrophils (%) (Auto) 64.3, Lymphocytes (%) (Auto) 20.4, Monocytes (%) (Auto) 6.5, Eosinophils (%) (Auto) 8.0H, Basophils (%) (Auto) 0.8, Sodium Level 144, Potassium Level 4.7, Chloride Level 102, Carbon Dioxide Level 30, Anion Gap 12, Blood Urea Nitrogen 10, Creatinine 0.3L, Estimat Glomerular Filtration Rate , Glucose Level 96, Calcium Level 9.5, Magnesium Level 1.5L Current Medications Medications (Trade) Dose Ordered Sig/Boubacar Route PRN Reason Start Time Stop Time Status Last Admin Dose Admin Acetaminophen (Tylenol) 650 mg Q4H PRN ORAL FEVER 04/02/17 16:30 05/02/17 16:29 Albuterol/ Ipratropium (DuoNeb 0.5-3(2.5)mg/3ml) 3 ml Q4H PRN HHN Shortness of Breath 04/08/17 15:15 04/13/17 15:14 Dextrose (Dextrose 50%) STAT PRN IV Hypoglycemia 04/02/17 16:30 05/02/17 16:29 Heparin Sodium (Porcine) (Heparin 5000 units/ml) 5,000 units EVERY 12 HOURS SUBQ 04/02/17 21:00 05/02/17 20:59 04/08/17 20:35 Levetiracetam (Keppra) 1,500 mg Q12HR GT 04/05/17 21:00 05/05/17 20:59 04/08/17 20:33 Levothyroxine Sodium (Synthroid) 25 mcg ACBREAKFAST GT 04/07/17 06:30 05/07/17 06:29 04/09/17 05:43 Lorazepam (Ativan 2mg/ml 1ml) 2 mg Q2H PRN IV For Anxiety 04/08/17 16:30 04/15/17 16:29 Lorazepam (Ativan) 2 mg Q4H PRN GT AGITATION 04/08/17 17:00 04/15/17 16:59 Meropenem/Sodium Chloride (Merrem/Sodium Chloride) 110 ml @ 220 mls/hr Q8H IVPB 04/04/17 18:00 04/10/17 23:59 04/09/17 02:11 Morphine Sulfate (Morphine Sulfate) 4 mg Q4H PRN IVP Severe Pain (Pain Scale 7-10) 04/08/17 16:30 04/15/17 16:29 Ondansetron HCl (Zofran) 4 mg Q6H PRN IVP Nausea & Vomiting 04/02/17 16:30 05/02/17 16:29 Pantoprazole 40 mg 40 mg DAILY IV 04/03/17 09:00 05/03/17 08:59 04/08/17 08:27 Phenytoin (Dilantin) 150 mg Q12HR@0600,1800 GT 04/09/17 08:00 05/09/17 07:59 Polyethylene Glycol (Miralax) 17 gm DAILYPRN PRN GT Constipation 04/05/17 15:48 05/02/17 16:29 Dennis ([facility])Libby NP Apr 09, 2017 08:00
[2017-04-09 08:03] LABS: ABG BASE EXCESS 11.9; ABG PCO2 55.8 mmHg (35.0-45.0)
[2017-04-09 08:04] LABS: ABG ALLEN TEST POSITIVE
[2017-04-09 08:19] VITALS: BP 101/48
[2017-04-09] MEDS: Pantoprazole Inj IV SCH (08:52)
[2017-04-09] MEDS: levETIRAcetam 500mg/5ml Liquid GT SCH (08:52)
[2017-04-09] MEDS: Heparin 5000 units/ml inj SUBQ SCH (08:54)
[2017-04-09 12:00] VITALS: BP 103/46
--- NOTE | 2017-04-09 14:34 | Infectious Diseases Prog Note ---
Assessment/Plan Assessment/Plan ASSESSMENT: 76 y/o female with: // Recurrent ESBL(+) E.coli UTI - h/o qR-PSA, E.coli // h/o KPC-K.pneumoniae bacteremia 12/06 ?urinary vs biliary source vs CLABSI - repeat BCx cleared 10/11 SP Rx w/o recurrence. blood cx from 04/03 are negative. 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, PEG - inc FiO2 // Seizure disorder // h/o breast CA // Morbid obesity // MRSA, VRE colonized // No ABX allergies // Full Code PLAN: - continue meropenem d# 6 / 7 for ESBL UTI ( 04/04 SP IV vancomycin, zosyn d# 3 ) - monitor CBC, temperatures - monitor BMP - monitor CXR - vent support, trach care, aspiration precautions - seizure precautions Subjective ROS Limited/Unobtainable: Yes Allergies: Coded Allergies: PEANUT (Verified Allergy, Unknown, 09/22/16) Uncoded Allergies: PEANUTS (Allergy, Unknown, 04/02/17) Subjective afebrile o/n. Objective Vital Signs Last 24 Hour Vital Signs Date Time Temp Pulse Resp B/P Pulse Ox O2 Delivery O2 Flow Rate FiO2 04/09/17 12:53 80 16 40 04/09/17 12:00 97.7 75 20 103/46 93 Mechanical Ventilator 40 04/09/17 12:00 76 04/09/17 12:00 50.0 40 04/09/17 10:30 84 19 40 04/09/17 09:39 40 04/09/17 08:32 84 12 50 04/09/17 08:19 98.1 83 22 101/48 92 Mechanical Ventilator 50 04/09/17 08:07 50 04/09/17 08:00 50.0 40 04/09/17 08:00 85 04/09/17 06:46 84 12 40 04/09/17 05:25 81 12 40 04/09/17 04:00 40 04/09/17 04:00 97.9 81 15 112/58 94 Mechanical Ventilator 40 04/09/17 03:47 80 04/09/17 02:39 76 12 40 04/09/17 01:23 81 13 40 04/09/17 00:00 40 04/09/17 00:00 98.0 82 15 106/51 98 Mechanical Ventilator 40 04/08/17 23:37 80 04/08/17 23:27 84 13 40 04/08/17 21:18 79 13 40 04/08/17 20:55 83 04/08/17 20:00 40 04/08/17 20:00 97.7 88 14 101/48 96 Mechanical Ventilator 40 04/08/17 19:34 87 13 40 04/08/17 17:33 87 13 40 04/08/17 16:37 40 04/08/17 16:34 98.2 81 14 101/43 96 Mechanical Ventilator 40 04/08/17 16:00 81 04/08/17 15:00 85 15 40 Height (Feet): 5 Height (Inches): 6.00 Weight (Pounds): 250 Objective General Appearance: WD/WN HEENT: normocephalic, atraumatic, trach in place, no purulence in aspiration or around trach, on vent support Respiratory/Chest: chest wall non-tender, coarse breath sounds Cardiovascular: normal rate Abdomen: normal bowel sounds, soft, non tender, peg in place Genitourinary: normal external genitalia, no gould Extremities: no cyanosis, no clubbing, trace ble edema, PIV c/d/i Skin: no rash, no lesions Rads Patient : STEFAN PABLO Priscila Referring Physician: ANGELA DAVILA ID Number: [id number] Service Date: 04/07/17 : 1940 Report Date: 04/07/17 Gender: F Accession No.: [id number] Location: 2W Procedure: XRAY Chest 1v Indication: DYSPNEA Technique: One view of the chest Comparison: 04/02/2017 Findings: Bilateral interstitial and alveolar congestion persists, but appears somewhat improved. Previously reported bilateral pleural effusions appear improved. The heart remains borderline enlarged. Tracheostomy remains Impression: Improved but persistent bilateral interstitial and alveolar edema, over 5 days Dictated By: JULIA ARDON M.D. Electronically Signed By: JULIA ARDON M.D. Signed Date/Time 04/07/17 [id number] CC: ANGELA DAVILA Laboratory Tests Test 04/09/17 04:11 04/09/17 07:55 White Blood Count 5.8 K/UL (4.8-10.8) Red Blood Count 3.13 M/UL (4.20-5.40) L Hemoglobin 9.8 G/DL (12.0-16.0) L Hematocrit 31.6 % (37.0-47.0) L Mean Corpuscular Volume 101 FL (80-99) H Mean Corpuscular Hemoglobin 31.1 PG (27.0-31.0) H Mean Corpuscular Hemoglobin Concent 30.9 G/DL (32.0-36.0) L Red Cell Distribution Width 18.0 % (11.6-14.8) H Platelet Count 174 K/UL (150-450) Mean Platelet Volume 9.3 FL (6.5-10.1) Neutrophils (%) (Auto) 64.3 % (45.0-75.0) Lymphocytes (%) (Auto) 20.4 % (20.0-45.0) Monocytes (%) (Auto) 6.5 % (1.0-10.0) Eosinophils (%) (Auto) 8.0 % (0.0-3.0) H Basophils (%) (Auto) 0.8 % (0.0-2.0) Sodium Level 144 mEQ/L (135-145) Potassium Level 4.7 mEQ/L (3.4-4.9) Chloride Level 102 mEQ/L (98-107) Carbon Dioxide Level 30 mEQ/L (20-30) Anion Gap 12 (5-15) Blood Urea Nitrogen 10 mg/dL (7-23) Creatinine 0.3 mg/dL (0.5-0.9) L Estimat Glomerular Filtration Rate mL/min (>60) Glucose Level 96 mg/dL (74-106) Calcium Level 9.5 mg/dL (8.6-10.2) Magnesium Level 1.5 mg/dL (1.7-2.5) L Arterial Blood pH 7.447 (7.350-7.450) Arterial Blood Partial Pressure CO2 55.8 mmHg (35.0-45.0) *H Arterial Blood Partial Pressure O2 68.0 mmHg (75.0-100.0) L Arterial Blood HCO3 37.7 mmol/L (22.0-26.0) H Arterial Blood Oxygen Saturation 92.9 % (92.0-98.0) Arterial Blood Base Excess 11.9 Best Test Positive Current Medications Medications (Trade) Dose Ordered Sig/Boubacar Route PRN Reason Start Time Stop Time Status Last Admin Dose Admin Acetaminophen (Tylenol) 650 mg Q4H PRN ORAL FEVER 04/02/17 16:30 05/02/17 16:29 Albuterol/ Ipratropium (DuoNeb 0.5-3(2.5)mg/3ml) 3 ml Q4H PRN HHN Shortness of Breath 04/08/17 15:15 04/13/17 15:14 Dextrose (Dextrose 50%) STAT PRN IV Hypoglycemia 04/02/17 16:30 05/02/17 16:29 Heparin Sodium (Porcine) (Heparin 5000 units/ml) 5,000 units EVERY 12 HOURS SUBQ 04/02/17 21:00 05/02/17 20:59 04/09/17 08:54 Levetiracetam (Keppra) 1,500 mg Q12HR GT 04/05/17 21:00 05/05/17 20:59 04/09/17 08:52 Levothyroxine Sodium (Synthroid) 25 mcg ACBREAKFAST GT 04/07/17 06:30 05/07/17 06:29 04/09/17 05:43 Lorazepam (Ativan 2mg/ml 1ml) 2 mg Q2H PRN IV For Anxiety 04/08/17 16:30 04/15/17 16:29 Lorazepam (Ativan) 2 mg Q4H PRN GT AGITATION 04/08/17 17:00 04/15/17 16:59 Meropenem/Sodium Chloride (Merrem/Sodium Chloride) 110 ml @ 220 mls/hr Q8H IVPB 04/04/17 18:00 04/10/17 23:59 04/09/17 10:22 Morphine Sulfate (Morphine Sulfate) 4 mg Q4H PRN IVP Severe Pain (Pain Scale 7-10) 04/08/17 16:30 04/15/17 16:29 Ondansetron HCl (Zofran) 4 mg Q6H PRN IVP Nausea & Vomiting 04/02/17 16:30 05/02/17 16:29 Pantoprazole 40 mg 40 mg DAILY IV 04/03/17 09:00 05/03/17 08:59 04/09/17 08:52 Phenytoin (Dilantin) 150 mg Q12HR@0600,1800 GT 04/09/17 08:00 05/09/17 07:59 04/09/17 08:50 Polyethylene Glycol (Miralax) 17 gm DAILYPRN PRN GT Constipation 04/05/17 15:48 05/02/17 16:29 Kimani Vázquez M.D. Apr 09, 2017 14:34
[2017-04-09 16:00] VITALS: BP 103/48
[2017-04-09] MEDS ORDERED: NS 275ml ONE (16:14)
[2017-04-09] MEDS ORDERED: Tubing IV Secondary IV ONE (16:14)
--- NOTE | 2017-04-10 08:37 | Discharge Summary ---
Discharge Summary Hospital Course Date of Admission Apr 02, 2017 at 17:52 Date of Discharge Apr 09, 2017 at 16:15 Admitting Diagnosis hypotension HPI Kate Donovan is a 76 year old female who was admitted on Apr 02, 2017 at 17 :52 for Hypotension Hospital Course dc summary #[id number] Discharge Medications New Medications: Meropenem-0.9% Sodium Chloride (Meropenem-0.9% NaCl 1 Gram/50) 1 Gm/50 Ml Piggyback 1 GM IV Q8HR, #5 BAG 5 more doses Continued Medications: Acetaminophen (Acetaminophen) 650 Mg/20.3 Ml Solution 650 MG GT Q6H PRN for Prn Headache/Temp > 101, ML 0 Refills Aspirin* (Aspir 81*) 81 Mg Tablet.dr 325 MG GT DAILY, TAB Bisacodyl* (Dulcolax*) 5 Mg Tablet.dr 10 MG RECTAL PRN, #10 TAB 0 Refills Cran/Vitc/Mannose/Inulin/Brom (Uti-Stat Liquid) 3,875 Mg/30 Ml Liquid 30 ML GT TWICE A DAY, ML Enoxaparin* (Lovenox*) 40 Mg/0.4 Ml Inj 40 MG SUBQ DAILY Famotidine (Famotidine) 20 Mg Tablet 20 MG GT TWICE A DAY, #60 TAB 0 Refills Ferrous Sulfate* (Ferrous Sulfate*) 325 Mg Tablet 7.5 ML GT DAILY, #30 TAB 0 Refills Ipratropium/Albuterol Sulfate (DuoNeb 0.5-3(2.5)mg/3ml) 3 Ml Ampul.neb 3 ML HHN Q6HR PRN for Shortness of Breath, EA Levetiracetam* (Levetiracetam*) 500 Mg Tablet 1500 MG GT TWICE A DAY, #60 TAB 0 Refills Levothyroxine Sodium* (Synthroid*) 25 Mcg Tablet 25 MCG GT DAILY, TAB Take in the morning on an empty stomach, at least 30 minutes before food. Lorazepam* (Ativan*) 1 Mg Tablet 1 MG GT EVERY 6 HOURS PRN for Agitation, TAB Magnesium Hydroxide (Milk of Magnesia) 400 Mg/5 Ml Oral.susp 30 ML ORAL DAILY, ML Multivitamin With Minerals (Multivitamins With Minerals*) 1 Each Tablet 15 ML GT DAILY, TAB Na Phos,M-B/Na Phos,Di-Ba* (Fleet Enema*) 133 Ml Enema 133 ML RECTAL DAILY PRN for Constipation, ML 0 Refills Protein Supplement (Promod) 946 Ml Liquid 30 ML GT DAILY, ML Vit C/Ascorbate Ca/Ascorb Sod (Vitamin C 500 Mg/15 Ml Liquid) 500 Mg/15 Ml Liquid 5 ML GT DAILY, ML Zinc Sulfate (Zinc Sulfate*) 220 Mg Capsule 220 MG GT DAILY, CAP 0 Refills Discharge Condition Upon Discharge: stable Discharge Disposition Patient was discharged to SNF/Subacute Facility(03) Discharge Diagnoses: Dennis ([facility])Libby NP Apr 10, 2017 08:37
--- NOTE | 2017-04-11 01:00 | Discharge Summary 2 SIG ---
DATE OF ADMISSION: 04/02/2017 DATE OF DISCHARGE: 04/09/2017 REASON FOR ADMISSION: 76-year-old chronically ill female, resident of a subacute senior care facility, was sent for evaluation due to the hypotension. The patient with a past medical history significant for ventilator-dependent respiratory failure, tracheostomy, chronic anoxic encephalopathy, vegetative state, seizure disorder, anemia, dysphagia, and G-tube. She was found in the emergency room to have urinary tract infection with severe leukocytosis, elevated lactic acid, and low blood pressure. The patient was admitted for further management. ADMITTING DIAGNOSES: 1. Severe sepsis. 2. Acute on chronic respiratory failure. 3. Recurrent urinary tract infection. 4. Chronic anoxic encephalopathy. HOSPITAL COURSE: The patient was admitted to [facility]. Ventilator support provided. Pulmonary toilet provided. Baseline ABG obtained and settings titrated as needed. The patient was started on empiric antibiotic. Infectious Disease specialist followed. Urine culture grew E. coli ESBL. Sputum culture was colonized as per Infectious Disease specialist. Blood culture were negative. The patient was on strict aspiration precaution. G-tube feeding started, tolerated feeding. Seizure precautions were maintained. No seizure activity while in the hospital. Keppra and Dilantin were continued. Hemoglobin and hematocrit were monitored closely with goal to transfuse if hemoglobin above 7. No need for transfusion. Electrolytes such as potassium and magnesium were replaced. DVT and GI prophylaxis provided. Bowel regimen instituted. The patient was on intravenous meropenem. Per Infectious Disease specialist, the patient needs two more days of meropenem in the senior care facility to complete the course. The patient was stable for discharge. Leukocytosis resolved. Hemoglobin and hematocrit stable, at baseline. DISCHARGE DIAGNOSES: 1. Acute on chronic respiratory failure. 2. Severe sepsis. 3. Ventilator-dependent respiratory failure. 4. Tracheostomy status. 5. Chronic anoxic encephalopathy. 6. Recurrent extended-spectrum beta-lactamases Escherichia coli urinary tract infection. 7. Hypotension, resolved. 8. Seizure disorder. 9. Morbid obesity. 10. Dysphagia, gastrostomy tube. 11. Anemia. 12. Electrolyte imbalance: hypokalemia and hypomagnesemia. DISCHARGE MEDICATIONS: See medication reconciliation list. The patient was discharged on two more days of IV meropenem. DISCHARGE INSTRUCTIONS: The patient to follow up with medical doctor and paper handler at the senior care facility. Savi Rodriguez M.D. Libby Collins N.P. ([facility]) DR: Zulema JOB#: [id number] CC: ROMINA
== END 2017-04-09 16:15 | DRG 870 ==
LOC: EDBD 15:20 → EMR 16:51 → EDBEDREQ 17:37 → 2W 17:52
PROC: 5A1955Z Respiratory Ventilation, Greater than 96 Consecutive Hours (ICD-10-PCS; principal; 2017-04-02)
DX: A41.9 Sepsis, unspecified organism (principal); J96.20 Acute and chronic respiratory failure, unspecified whether with hypoxia or hypercapnia; G93.1 Anoxic brain damage, not elsewhere classified; Z99.11 Dependence on respirator [ventilator] status; R40.3 Persistent vegetative state; Z43.0 Encounter for attention to tracheostomy; N39.0 Urinary tract infection, site not specified; Z43.1 Encounter for attention to gastrostomy; Z68.41 Body mass index [BMI] 40.0-44.9, adult; R65.20 Severe sepsis without septic shock; B96.20 Unspecified Escherichia coli [E. coli] as the cause of diseases classified elsewhere; Z16.12 Extended spectrum beta lactamase (ESBL) resistance; E87.6 Hypokalemia; E83.42 Hypomagnesemia; Z85.3 Personal history of malignant neoplasm of breast; G40.909 Epilepsy, unspecified, not intractable, without status epilepticus; E66.01 Morbid (severe) obesity due to excess calories; R13.10 Dysphagia, unspecified; D64.9 Anemia, unspecified
CPT/HCPCS: 36415; 36600; 71010; 80048; 80053; 80069; 80299; 81003; 82550; 82553; 82803; 82962; 83605; 83735; 83880; 84100; 84484; 85007; 85025; 87040; 87070; 87086; 87181; 87205; 93005; 93970; 94002; 94003

== ENCOUNTER 2017-04-21 13:56 | Inpatient (IN) | payer OTHER, MEDICAID ==
[~2017-04-21] VITALS: Ht 167.6 cm; Wt 108.9 kg
[~2017-04-21 13:56] MED LIST changes: +ASPIR 8181 MG GT; +FAMOTIDINE20 MG GT; +LOVENOX10 M4 SUBQ; +MEROPENEM-1 GM/50 ML IV; +MULTIVITAMINS1 EAC8 GT; +SYNTHROID25 MCG GT
[2017-04-21] MEDS ORDERED: Cefepime HCl 1 GM in NS 55 ML IV SCH (14:00)
[2017-04-21] MEDS ORDERED: metroNIDAZOLE 500mg 100 ML IV SCH (14:00)
[2017-04-21] MEDS ORDERED: Ampicillin/Sulbactam Sod 3 GM in NS 110 ML IV SCH (14:00)
--- NOTE | 2017-04-21 14:09 | Emergency Room Report ---
History of Present Illness General Chief Complaint: Fever Source: EMS, PMD Present Illness HPI Patient is a 76-year-old female sent in from [facility] for increased fever. Patient had been noted to have a prior history of anoxic brain injury. The patient is vent dependent. The patient had several episodes of nonbilious vomiting while at facility. Patient had temperature of 103. The patient had been nonverbal. She prior history of decubitus ulcers as well as multiple drug- resistant infections Allergies: Coded Allergies: PEANUT (Verified Allergy, Unknown, 09/22/16) Patient History Past Medical History: see triage record Reviewed Nursing Documentation: PMH: Agreed, PSxH: Agreed Nursing Documentation-PMH Hx Hypertension: Yes Hx COPD: Yes Hx Diabetes: Yes - Hypothyroid Hx Cancer: Yes - Breast (unspecified) Hx Gastrointestinal Problems: Yes - G-tube Hx Neurological Problems: Yes Hx Cerebrovascular Accident: Yes Hx Seizures: Yes Hx Paralysis: Yes Hx Peripheral Neuropathy: Yes Hx Memory Loss: Yes Hx Concentration Difficulty: Yes Hx Speech Problem: Yes Hx Aphasia: Yes Hx Dysphasia: Yes Hx Weakness: Yes Review of Systems All Other Systems: limited - by mental status Physical Exam Vital Signs Date Time Temp Pulse Resp B/P Pulse Ox O2 Delivery O2 Flow Rate FiO2 04/21/17 13:52 99.3 101 20 126/51 93 Mechanical Ventilator Sp02 EP Interpretation: reviewed, normal General Appearance: moderate distress, obese, Chronically Ill Head: atraumatic ENT: normal voice, dry mucus membranes Neck: supple, no bony tend, limited range of motion Respiratory: normal inspection, no respiratory distress, no retraction, other - coarse breath sounds Cardiovascular #1: regular rate, rhythm, no edema Gastrointestinal: no guarding, no hernia Genitourinary: no CVA tenderness Musculoskeletal: back normal, decreased range of motion, other - decubitus ulcer Neurologic: responsive, motor weakness, other - eyes open intermittently Psychiatric: normal inspection, judgement/insight normal, mood/affect normal Skin: other - decubitis Medical Decision Making Diagnostic Impression: Primary Impression: Fever Additional Impressions: Chronic respiratory failure Anoxic brain damage syndrome ER Course Patient presented for fever. Differential diagnosis included wasn't limited to pneumonia, urinary tract infection, drug fever, allergic reaction, sepsis, cholecystitis, among others.Because of complexity of patient's case laboratory testing and imaging studies were ordered.patient was noted to have a seizure disorder. Dilantin level was ordered.The patient was noted to have elevated white blood count. She is also noted to have Dilantin level of 8. Patient started on IV antibiotics. A chest x-ray one view interpreted by radiology showed no acute changes from prior chest x-ray with bilateral interstitial lung disease Dr. Rodriguez was contacted for inpatient management due to complexity of medical condition. Labs Test 04/21/17 13:59 Arterial Blood pH 7.448 (7.350-7.450) Arterial Blood Partial Pressure CO2 39.9 mmHg (35.0-45.0) Arterial Blood Partial Pressure O2 75.2 mmHg (75.0-100.0) Arterial Blood HCO3 27.0 mmol/L (22.0-26.0) Arterial Blood Oxygen Saturation 94.2 % (92.0-98.0) Arterial Blood Base Excess 2.8 Best Test Positive EKG Diagnostic Results Rate: tachycardiac Rhythm: NSR, other - right bundle branch block ST Segments: no acute changes ASA given to the pt in ED: No Rhythm Strip Diag. Results EP Interpretation: yes Rhythm: NSR - 101, no PVC's, no ectopy Chest X-Ray Diagnostic Results Chest X-Ray Diagnostic Results : Chest X-Ray Ordered: Yes # of Views/Limited/Complete: 1 View Indication: Other - fever EP Interpretation: No Interpretation: no effusion, no pneumothorax, other - diffuse interstitial disease, normal cardiac size Last Vital Signs Date Time Temp Pulse Resp B/P Pulse Ox O2 Delivery O2 Flow Rate FiO2 04/21/17 13:52 99.3 101 20 126/51 93 Mechanical Ventilator Status: unchanged Disposition: ADMITTED INPATIENT Condition: Serious CatarinoKenton Apr 21, 2017 14:09
[2017-04-21 14:15] VITALS: BP 126/51
--- NOTE | 2017-04-21 14:48 | Diagnostic Imaging Report ---
Indication: SOB Technique: One view of the chest Comparison: A4 2017 Findings: There is a tracheostomy in place. Again demonstrated is diffuse bilateral interstitial disease and central bronchial wall thickening, appearing unchanged. Pleural spaces are grossly clear. No significant interim change Impression: Bilateral diffuse interstitial disease. Similarity to previous exam suggests this may at least in part be chronic. Correlate with clinical findings
[2017-04-21] MEDS ORDERED: Unasyn 3gm Inj ONE (14:55)
[2017-04-21] MEDS ORDERED: Cefepime 1gm vial ONE (14:56)
[2017-04-21] MEDS ORDERED: DuoNeb 0.5-3(2.5)mg/3ml neb HHN PRN (15:00)
[2017-04-21] MEDS ORDERED: Miralax 17gm pkt ORAL PRN (15:00)
[2017-04-21] MEDS ORDERED: LORazepam Inj 2mg/ml 1ml IV PRN (15:00)
[2017-04-21] MEDS ORDERED: Morphine Sulfate 4mg/ml Inj IVP PRN (15:00)
[2017-04-21] MEDS ORDERED: HEPARIN SO5000 UNIT2 SUBQ (15:06)
[2017-04-21] MEDS ORDERED: DILANTIN100 MG GT (15:06)
[2017-04-21 15:10] LABS: ABG ALLEN TEST POSITIVE; ABG BASE EXCESS 2.8; ABG PCO2 39.9 mmHg (35.0-45.0)
[2017-04-21 15:27] LABS: TROPONIN I < 0.30 ng/mL (<=0.30)
[2017-04-21 15:29] LABS: MEAN CORPUSCULAR HEMOGLOBIN 30.2 PG (27.0-31.0); MEAN CORPUSCULAR HGB CONC 30.5 G/DL (32.0-36.0); MEAN CORPUSCULAR VOLUME 99 FL (80-99); MEAN PLATELET VOLUME 9.1 FL (6.5-10.1); PLATELET COUNT 333 K/UL (150-450); RED BLOOD COUNT 3.48 M/UL (4.20-5.40); RED CELL DISTRIBUTION WIDTH 17.7 % (11.6-14.8); WHITE BLOOD COUNT 16.1 K/UL (4.8-10.8)
[2017-04-21 15:31] LABS: ALANINE AMINOTRANSFERASE 20 U/L (3-33); ALBUMIN/GLOBULIN RATIO 0.9 (1.0-2.7); ANION GAP 13 (5-15); ASPARTATE AMINO TRANSFERASE 38 U/L (5-40); CALCIUM 9.7 mg/dL (8.6-10.2); CARBON DIOXIDE 27 mEQ/L (20-30); CHLORIDE 92 mEQ/L (98-107); CREATININE 0.6 mg/dL (0.5-0.9); HEMOLYSIS 2; POTASSIUM 3.2 mEQ/L (3.4-4.9); SODIUM 132 mEQ/L (135-145); TOTAL PROTEIN 7.5 g/dL (6.6-8.7)
[2017-04-21 15:32] LABS: REFLEX LACTIC ACID YES OR NO YES
[2017-04-21 15:42] LABS: CKMB < 1.5 ng/mL (< 3.8)
[2017-04-21 16:41] LABS: BAND NEUTROPHILS % (MANUAL) 27 % (0-8); LYMPHOCYTES % (MANUAL) 3 % (20-45); NEUTROPHILS % (MANUAL) 63 % (45-75); TOTAL CELLS COUNTED 100
[2017-04-21 16:42] LABS: ANISOCYTOSIS 1+
[2017-04-21 16:43] LABS: BASOPHILS % (MANUAL) 0 % (0-2); EOSINOPHILS % (MANUAL) 0 % (0-3); HYPOCHROMASIA 1+; MACROCYTES 1+; PLATELET ESTIMATE ADEQUATE; POLYCHROMASIA 1+
[2017-04-21 16:44] LABS: PLATELET MORPHOLOGY NORMAL
[2017-04-21 17:51] VITALS: BP 117/51
[2017-04-21 17:59] LABS: APPEARANCE,URINE SLIGHTLY CLOUDY; KETONES,URINE 1+ (NEGATIVE); LEUKOCYTE ESTERASE ,URINE 2+ (NEGATIVE); NITRITE,URINE POSITIVE (NEGATIVE); PH,URINE 5 (4.5-8.0); PROTEIN,URINE 1+ (NEGATIVE); UROBILINOGEN,URINE 1 MG/DL (0.0-1.0)
[2017-04-21 18:18] LABS: BACTERIA,URINE MANY /HPF; SQUAMOUS EPITHELIAL CELL,UR OCCASIONAL /LPF (NONE/OCC)
[2017-04-21 18:24] LABS: ICTOTEST POSITIVE
--- NOTE | 2017-04-21 18:33 | History and Physical ---
History of Present Illness General Date patient seen: Apr 21, 2017 Reason for Hospitalization: Fever Present Illness HPI 76-year-old female sent in from halfway for increased fever. Patient had been noted to have a prior history of anoxic brain injury. The patient is vent dependent. The patient had several episodes of nonbilious vomiting while at facility. Patient had temperature of 103. The patient had been nonverbal. She prior history of decubitus ulcers as well as multiple drug-resistant infections Allergies: Coded Allergies: PEANUT (Verified Allergy, Unknown, 09/22/16) Medication History Scheduled Aspirin* (Aspir 81*), 325 MG GT DAILY, (Reported) Bisacodyl* (Dulcolax*), 10 MG RECTAL PRN, (Reported) Cran/Vitc/Mannose/Inulin/Brom (Uti-Stat Liquid), 30 ML GT TWICE A DAY, (Reported ) Enoxaparin* (Lovenox*), 40 MG SUBQ DAILY, (Reported) Famotidine (Famotidine), 20 MG GT TWICE A DAY, (Reported) Ferrous Sulfate* (Ferrous Sulfate*), 7.5 ML GT DAILY, (Reported) Heparin Sod (Porcine) (Heparin Sodium*), 5,000 UNITS SUBQ EVERY 12 HOURS, ( Reported) Levetiracetam* (Levetiracetam*), 1,500 MG GT TWICE A DAY, (Reported) Levothyroxine Sodium* (Synthroid*), 25 MCG GT DAILY, (Reported) Magnesium Hydroxide (Milk of Magnesia), 30 ML ORAL DAILY, (Reported) Magnesium Hydroxide* (Milk Of Magnesia*), 30 ML GT PRN, (Reported) Meropenem-0.9% Sodium Chloride (Meropenem-0.9% NaCl 1 Gram/50), 1 GM IV Q8HR Multivitamin With Minerals (Multivitamins With Minerals*), 15 ML GT DAILY, ( Reported) Phenytoin Sodium Extended* (Dilantin*), 300 MG GT TID, (Reported) Phenytoin Sodium Extended* (Dilantin*), 300 MG GT BID, (Reported) Protein Supplement (Promod), 30 ML GT DAILY, (Reported) Vit C/Ascorbate Ca/Ascorb Sod (Vitamin C 500 Mg/15 Ml Liquid), 5 ML GT DAILY, ( Reported) Zinc Sulfate (Zinc Sulfate*), 220 MG GT DAILY, (Reported) Scheduled PRN Acetaminophen (Acetaminophen), 650 MG GT Q6H PRN for Prn Headache/Temp > 101, ( Reported) Ipratropium/Albuterol Sulfate (DuoNeb 0.5-3(2.5)mg/3ml), 3 ML HHN Q6HR PRN for Shortness of Breath, (Reported) Lorazepam* (Ativan*), 1 MG GT EVERY 6 HOURS PRN for Agitation, (Reported) Na Phos,M-B/Na Phos,Di-Ba* (Fleet Enema*), 133 ML RECTAL DAILY PRN for Constipation, (Reported) Patient History Healthcare decision maker Resuscitation status Advanced Directive on File Past Medical/Surgical History Past Medical/Surgical History: (1) Anoxic brain damage syndrome (2) Feeding by G-tube (3) Vegetative state Review of Systems All Other Systems: negative except mentioned in HPI Physical Exam General Appearance: WD/WN, no apparent distress Lines, tubes and drains: peripheral HEENT: normocephalic, atraumatic Neck: non-tender, normal alignment Respiratory/Chest: chest wall non-tender, lungs clear Cardiovascular/Chest: normal peripheral pulses Abdomen: normal bowel sounds, non tender Genitourinary/Rectal: normal genital exam, normal rectal exam Extremities: normal range of motion Last 24 Hour Vital Signs Date Time Temp Pulse Resp B/P Pulse Ox O2 Delivery O2 Flow Rate FiO2 04/21/17 17:53 99.3 88 13 117/51 99 Mechanical Ventilator 40 04/21/17 17:51 100.7 88 13 117/51 99 Mechanical Ventilator 04/21/17 17:03 93 15 40 04/21/17 15:28 95 15 40 04/21/17 14:15 99.3 20 126/51 93 Mechanical Ventilator 04/21/17 13:52 99.3 101 20 126/51 93 Mechanical Ventilator 04/21/17 13:51 101 18 40 04/21/17 13:51 101 18 Mechanical Ventilator 40 Laboratory Tests Test 04/21/17 13:59 04/21/17 14:50 04/21/17 17:11 04/21/17 17:18 Arterial Blood pH 7.448 (7.350-7.450) Arterial Blood Partial Pressure CO2 39.9 mmHg (35.0-45.0) Arterial Blood Partial Pressure O2 75.2 mmHg (75.0-100.0) Arterial Blood HCO3 27.0 mmol/L (22.0-26.0) H Arterial Blood Oxygen Saturation 94.2 % (92.0-98.0) Arterial Blood Base Excess 2.8 Best Test Positive White Blood Count 16.1 K/UL (4.8-10.8) H Red Blood Count 3.48 M/UL (4.20-5.40) L Hemoglobin 10.5 G/DL (12.0-16.0) L Hematocrit 34.3 % (37.0-47.0) L Mean Corpuscular Volume 99 FL (80-99) Mean Corpuscular Hemoglobin 30.2 PG (27.0-31.0) Mean Corpuscular Hemoglobin Concent 30.5 G/DL (32.0-36.0) L Red Cell Distribution Width 17.7 % (11.6-14.8) H Platelet Count 333 K/UL (150-450) Mean Platelet Volume 9.1 FL (6.5-10.1) Neutrophils (%) (Auto) % (45.0-75.0) Lymphocytes (%) (Auto) % (20.0-45.0) Monocytes (%) (Auto) % (1.0-10.0) Eosinophils (%) (Auto) % (0.0-3.0) Basophils (%) (Auto) % (0.0-2.0) Differential Total Cells Counted 100 Neutrophils % (Manual) 63 % (45-75) Lymphocytes % (Manual) 3 % (20-45) L Monocytes % (Manual) 7 % (1-10) Eosinophils % (Manual) 0 % (0-3) Basophils % (Manual) 0 % (0-2) Band Neutrophils 27 % (0-8) H Platelet Estimate Adequate Platelet Morphology Normal Polychromasia 1+ Hypochromasia 1+ Anisocytosis 1+ Macrocytosis 1+ Sodium Level 132 mEQ/L (135-145) L Potassium Level 3.2 mEQ/L (3.4-4.9) L Chloride Level 92 mEQ/L (98-107) L Carbon Dioxide Level 27 mEQ/L (20-30) Anion Gap 13 (5-15) Blood Urea Nitrogen 14 mg/dL (7-23) Creatinine 0.6 mg/dL (0.5-0.9) Estimat Glomerular Filtration Rate mL/min (>60) Glucose Level 134 mg/dL (74-106) H Lactic Acid Level 2.20 mmol/L (0.66-2.22) 1.30 mmol/L (0.66-2.22) Calcium Level 9.7 mg/dL (8.6-10.2) Total Bilirubin 0.9 mg/dL (0.0-1.2) Aspartate Amino Transf (AST/SGOT) 38 U/L (5-40) Alanine Aminotransferase (ALT/SGPT) 20 U/L (3-33) Alkaline Phosphatase 446 U/L (35-104) H Total Creatine Kinase 24 U/L (26-140) L Creatine Kinase MB < 1.5 ng/mL (< 3.8) Creatine Kinase MB Relative Index Troponin I < 0.30 ng/mL (<=0.30) Pro-B-Type Natriuretic Peptide 521 pg/mL (0-450) H Total Protein 7.5 g/dL (6.6-8.7) Albumin 3.7 g/dL (3.5-5.2) Globulin 3.8 g/dL Albumin/Globulin Ratio 0.9 (1.0-2.7) L Phenytoin (Dilantin) Level 8.5 ug/mL (10-20) L Urine Color Yellow Urine Appearance Slightly cloudy Urine pH 5 (4.5-8.0) Urine Specific [place] 1.015 (1.005-1.035) Urine Protein 1+ (NEGATIVE) H Urine Glucose (UA) Negative (NEGATIVE) Urine Ketones 1+ (NEGATIVE) H Urine Occult Blood 1+ (NEGATIVE) H Urine Nitrite Positive (NEGATIVE) H Urine Bilirubin 1+ (NEGATIVE) H Urine Ictotest Positive Urine Urobilinogen 1 MG/DL (0.0-1.0) H Urine Leukocyte Esterase 2+ (NEGATIVE) H Urine RBC 2-4 /HPF (0 - 2) H Urine WBC 5-10 /HPF (0 - 2) H Urine Squamous Epithelial Cells Occasional /LPF Urine Bacteria Many /HPF (NONE) H Height (Feet): 5 Height (Inches): 6.00 Weight (Pounds): 215 Medications Current Medications Medications (Trade) Dose Ordered Sig/Boubacar Route PRN Reason Start Time Stop Time Status Last Admin Dose Admin Acetaminophen (Tylenol) 650 mg Q4H PRN ORAL FEVER 04/21/17 15:00 05/21/17 14:59 Albuterol/ Ipratropium 3 ml 3 ml Q4H PRN HHN Shortness of Breath 04/21/17 15:00 04/26/17 14:59 Aspirin (ASA) 325 mg DAILY GT 04/22/17 09:00 05/22/17 08:59 Dextrose STAT PRN IV Hypoglycemia 04/21/17 15:00 05/21/17 14:59 Enoxaparin Sodium (Lovenox) 40 mg DAILY SUBQ 04/22/17 09:00 05/22/17 08:59 Heparin Sodium (Porcine) (Heparin 5000 units/ml) 5,000 units EVERY 12 HOURS SUBQ 04/21/17 21:00 05/21/17 20:59 UNV Levetiracetam (Keppra) 1,500 mg Q12HR GT 04/21/17 21:00 05/21/17 20:59 Lorazepam (Ativan 2mg/ml 1ml) 2 mg Q2H PRN IV For Anxiety 04/21/17 15:00 04/28/17 14:59 Morphine Sulfate (Morphine Sulfate) 4 mg Q4H PRN IVP Severe Pain (Pain Scale 7-10) 04/21/17 15:00 04/28/17 14:59 Ondansetron HCl (Zofran) 4 mg Q6H PRN IVP Nausea & Vomiting 04/21/17 15:00 05/21/17 14:59 Phenytoin (Dilantin) 300 mg TID GT 04/21/17 18:00 05/21/17 17:59 Piperacillin Sod/ Tazobactam Sod/ Sodium Chloride (Zosyn/Sodium Chloride) 110 ml @ 27.5 mls/hr EVERY 6 HOURS IVPB 04/21/17 18:00 04/28/17 17:59 UNV Polyethylene Glycol (Miralax) 17 gm DAILYPRN PRN ORAL Constipation 04/21/17 15:00 05/21/17 14:59 Vancomycin HCl/ Dextrose (Vancomycin/D5W) 275 ml @ 183.3 mls/ hr Q24H IV 04/22/17 23:00 04/27/17 22:59 UNV Assessment/Plan Problem List: (1) Feeding by G-tube ICD Codes: Z93.1 - Gastrostomy status SNOMED: 055108592, 377979578 (2) Vegetative state ICD Codes: R40.3 - Persistent vegetative state SNOMED: 32144884, 454987991 (3) Anoxic brain damage syndrome ICD Codes: G93.1 - Anoxic brain damage, not elsewhere classified SNOMED: 772458910 (4) Fever ICD Codes: R50.9 - Fever, unspecified SNOMED: 491169374 (5) Acute and chronic respiratory failure ICD Codes: J96.20 - Acute and chronic respiratory failure, unspecified whether with hypoxia or hypercapnia SNOMED: 39478571, 71671612 Respiratory: monitor respiratory rate, adjust FIO2, CXR Cardiac: continue to monitor HR/BP Renal: F/U I&O, keep IV fluid Infectious Disease: check cultures Gastrointestinal: continue feedings/current rate Endocrine: monitor blood sugar, check HgA1C 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
[2017-04-21 20:00] VITALS: BP 133/57
[2017-04-21] MEDS: Phenytoin Susp 100mg/4ml GT SCH (20:26)
[2017-04-21] MEDS: Vancomycin 1500mg IVPB SCH (20:52)
[2017-04-21] MEDS ORDERED: Heparin 5000 units/ml inj SUBQ SCH (21:00)
[2017-04-21] MEDS: Piperacillin/Tazobactam 3.375 GM in NS 110 ML IVPB SCH (22:40)
[2017-04-21] MEDS: levETIRAcetam 500mg/5ml Liquid GT SCH (22:41)
[2017-04-22] VITALS: BP 94/44
[2017-04-22 04:00] VITALS: BP 114/60
[2017-04-22] MEDS: Piperacillin/Tazobactam 3.375 GM in NS 110 ML IVPB SCH ×3 (06:27→21:42)
[2017-04-22 07:04] LABS: ANION GAP 8 (5-15); CALCIUM 9.2 mg/dL (8.6-10.2); CARBON DIOXIDE 28 mEQ/L (20-30); CHLORIDE 102 mEQ/L (98-107); CREATININE 0.4 mg/dL (0.5-0.9); HEMOLYSIS 0; POTASSIUM 2.8 mEQ/L (3.4-4.9); SODIUM 138 mEQ/L (135-145)
[2017-04-22 08:00] VITALS: BP 96/49
--- NOTE | 2017-04-22 08:26 | Pulmonology Progress Note ---
Assessment/Plan Assessment/Plan ASSESSMENT sepsis ( tachy, fever, leukocytosis) UTI hx of recurrent ESBL UTI ( last one recent) acute and chronic respiratory failure VDRF/trach anoxic encephalopathy anemia e/lyte imbalance : hypo Na, hypo K, dysphagia, G tube vomiting seizure disorder morbid obesity PLAN OF CARE DIANA vent/trach care, titrate Fio2, TV, AC prn pulmonary toilet ABG stable on current settings keep as is and titrate as needed abx fup with cx ID consult seizure precautions, continue Keppra and Dilantin ( Dilantin level slightyl low but considering low albumin, ok) strict aspiration precautions, GT feeding, monitor tolerance a/emetic prn vomiting noted in SNF, no vomiting while in the hospital, tolerates GT feeding Venous Duplex BLE, SCD if negative s/p 1 L NS, Na ok, replace K, check in am wound nurse eval monitor HH, transfuse prn to keep Hgb above 7 GI prophylaxis case discussed and evaluated by supervising physician Subjective Allergies: Coded Allergies: PEANUT (Verified Allergy, Unknown, 09/22/16) Subjective leukocytosis resolved, afebrile no signs of respiratory distress on current settings Objective Last 24 Hour Vital Signs Date Time Temp Pulse Resp B/P Pulse Ox O2 Delivery O2 Flow Rate FiO2 04/22/17 08:00 40 04/22/17 08:00 97.3 75 15 96/49 96 Mechanical Ventilator 40 04/22/17 06:58 65 13 40 04/22/17 05:10 74 18 40 04/22/17 04:00 97.2 78 15 114/60 98 Mechanical Ventilator 35 04/22/17 04:00 40 04/22/17 03:57 58 04/22/17 03:46 68 04/22/17 03:01 75 13 40 04/22/17 00:37 81 27 35 04/22/17 00:00 40 04/22/17 00:00 86 04/22/17 00:00 97.9 90 24 94/44 98 Mechanical Ventilator 35 04/21/17 23:05 87 18 40 04/21/17 21:08 83 17 40 04/21/17 20:00 40 04/21/17 20:00 97.3 88 18 133/57 98 Mechanical Ventilator 40 04/21/17 19:20 87 04/21/17 18:50 94 16 40 04/21/17 17:53 99.3 88 13 117/51 99 Mechanical Ventilator 40 04/21/17 17:51 100.7 88 13 117/51 99 Mechanical Ventilator 04/21/17 17:03 93 15 40 04/21/17 15:28 95 15 40 04/21/17 14:15 99.3 20 126/51 93 Mechanical Ventilator 04/21/17 13:52 99.3 101 20 126/51 93 Mechanical Ventilator 04/21/17 13:51 101 18 40 04/21/17 13:51 101 18 Mechanical Ventilator 40 Intake and Output 04/21/17 04/22/17 19:00 07:00 Intake Total 2250 ml 715.0 ml Balance 2250 ml 715.0 ml Intake Free Water 100 ml IV Total 360.0 ml Tube Feeding 255 ml Other 2250 ml # Bowel Movements 1 General Appearance: no acute distress, other - obese bedridden lethargic AA female in NAD ; vent dependent Vent AC 600-12-40% HEENT: status post trach - Portex#8, secretions small, white, thin Respiratory/Chest: lungs clear Cardiovascular: normal rate - SB in 50th Abdomen: normal bowel sounds, soft, non tender - obese, other - G tube Extremities: other - +1 edema BLE Neurologic/Psychiatric: abnormal gait - bedridden , other - lethargic, w/draws to tactile stimuli, spastic LE Musculoskeletal: atrophy - BLE# Laboratory Tests 04/21/17 13:59: Arterial Blood pH 7.448, Arterial Blood Partial Pressure CO2 39.9, Arterial Blood Partial Pressure O2 75.2, Arterial Blood HCO3 27.0H, Arterial Blood Oxygen Saturation 94.2, Arterial Blood Base Excess 2.8, Best Test Positive 04/21/17 14:50: White Blood Count 16.1H, Red Blood Count 3.48L, Hemoglobin 10.5L, Hematocrit 34.3L, Mean Corpuscular Volume 99, Mean Corpuscular Hemoglobin 30.2, Mean Corpuscular Hemoglobin Concent 30.5L, Red Cell Distribution Width 17.7H, Platelet Count 333, Mean Platelet Volume 9.1, Neutrophils (%) (Auto) , Lymphocytes (%) (Auto) , Monocytes (%) (Auto) , Eosinophils (%) (Auto) , Basophils (%) (Auto) , Differential Total Cells Counted 100, Neutrophils % ( Manual) 63, Lymphocytes % (Manual) 3L, Monocytes % (Manual) 7, Eosinophils % ( Manual) 0, Basophils % (Manual) 0, Band Neutrophils 27H, Platelet Estimate Adequate, Platelet Morphology Normal, Polychromasia 1+, Hypochromasia 1+, Anisocytosis 1+, Macrocytosis 1+, Sodium Level 132L, Potassium Level 3.2L, Chloride Level 92L, Carbon Dioxide Level 27, Anion Gap 13, Blood Urea Nitrogen 14, Creatinine 0.6, Estimat Glomerular Filtration Rate , Glucose Level 134H, Lactic Acid Level 2.20, Calcium Level 9.7, Total Bilirubin 0.9, Aspartate Amino Transf (AST/SGOT) 38, Alanine Aminotransferase (ALT/SGPT) 20, Alkaline Phosphatase 446H, Total Creatine Kinase 24L, Creatine Kinase MB < 1.5, Creatine Kinase MB Relative Index , Troponin I < 0.30, Pro-B-Type Natriuretic Peptide 521H, Total Protein 7.5, Albumin 3.7, Globulin 3.8, Albumin/Globulin Ratio 0.9L , Phenytoin (Dilantin) Level 8.5L 04/21/17 17:11: Urine Color Yellow, Urine Appearance Slightly cloudy, Urine pH 5, Urine Specific [place] 1.015, Urine Protein 1+H, Urine Glucose (UA) Negative, Urine Ketones 1+H, Urine Occult Blood 1+H, Urine Nitrite PositiveH, Urine Bilirubin 1+ H, Urine Ictotest Positive, Urine Urobilinogen 1H, Urine Leukocyte Esterase 2+H , Urine RBC 2-4H, Urine WBC 5-10H, Urine Squamous Epithelial Cells Occasional, Urine Bacteria ManyH 04/21/17 17:18: Lactic Acid Level 1.30 04/22/17 05:57: White Blood Count [Pending], Red Blood Count [Pending], Hemoglobin [Pending], Hematocrit [Pending], Mean Corpuscular Volume [Pending], Mean Corpuscular Hemoglobin [Pending], Mean Corpuscular Hemoglobin Concent [Pending], Red Cell Distribution Width [Pending], Platelet Count [Pending], Mean Platelet Volume [ Pending], Neutrophils (%) (Auto) [Pending], Lymphocytes (%) (Auto) [Pending], Monocytes (%) (Auto) [Pending], Eosinophils (%) (Auto) [Pending], Basophils (%) (Auto) [Pending], Sodium Level 138, Potassium Level 2.8L, Chloride Level 102, Carbon Dioxide Level 28, Anion Gap 8, Blood Urea Nitrogen 10, Creatinine 0.4L, Estimat Glomerular Filtration Rate , Glucose Level 113H, Calcium Level 9.2, Phosphorus Level 3.0, Magnesium Level 1.9, Albumin 3.1L Current Medications Medications (Trade) Dose Ordered Sig/Boubacar Route PRN Reason Start Time Stop Time Status Last Admin Dose Admin Acetaminophen (Tylenol) 650 mg Q4H PRN ORAL FEVER 04/21/17 15:00 05/21/17 14:59 Albuterol/ Ipratropium (DuoNeb 0.5-3(2.5)mg/3ml) 3 ml Q4H PRN HHN Shortness of Breath 04/21/17 15:00 04/26/17 14:59 Aspirin (ASA) 325 mg DAILY GT 04/22/17 09:00 05/22/17 08:59 Dextrose STAT PRN IV Hypoglycemia 04/21/17 15:00 05/21/17 14:59 Enoxaparin Sodium (Lovenox) 40 mg DAILY SUBQ 04/22/17 09:00 05/22/17 08:59 Levetiracetam (Keppra) 1,500 mg Q12HR GT 04/21/17 21:00 05/21/17 20:59 04/21/17 22:41 Lorazepam (Ativan 2mg/ml 1ml) 2 mg Q2H PRN IV For Anxiety 04/21/17 15:00 04/28/17 14:59 Morphine Sulfate (Morphine Sulfate) 4 mg Q4H PRN IVP Severe Pain (Pain Scale 7-10) 04/21/17 15:00 04/28/17 14:59 Ondansetron HCl (Zofran) 4 mg Q6H PRN IVP Nausea & Vomiting 04/21/17 15:00 05/21/17 14:59 Phenytoin (Dilantin) 300 mg TID GT 04/21/17 18:00 05/21/17 17:59 04/21/17 20:26 Piperacillin Sod/ Tazobactam Sod 3.375 gm/Sodium Chloride 110 ml @ 27.5 mls/hr Q8HR IVPB 04/21/17 22:00 04/28/17 21:59 04/22/17 06:27 Polyethylene Glycol (Miralax) 17 gm DAILYPRN PRN ORAL Constipation 04/21/17 15:00 05/21/17 14:59 Vancomycin HCl (Vanco rx to dose) 1 ea DAILY PRN MISC PRN RX PROTOCOL 04/21/17 19:30 05/21/17 19:29 Vancomycin HCl/ Dextrose (Vancomycin 1.5gm/D5W 250ml) 250 ml @ 125 mls/hr Q24H IVPB 04/21/17 20:00 04/26/17 19:59 04/21/17 20:52 Dennis (Eli)Libby NP Apr 22, 2017 08:26
[2017-04-22 08:46] LABS: BASOPHILS % (AUTO) 0.4 % (0.0-2.0); EOSINOPHILS % (AUTO) 2.8 % (0.0-3.0); LYMPHOCYTES % (AUTO) 9.3 % (20.0-45.0); MEAN CORPUSCULAR HEMOGLOBIN 31.9 PG (27.0-31.0); MEAN CORPUSCULAR VOLUME 100 FL (80-99); MEAN PLATELET VOLUME 9.1 FL (6.5-10.1); NEUTROPHILS % (AUTO) 79.5 % (45.0-75.0); PLATELET COUNT 258 K/UL (150-450); RED BLOOD COUNT 2.84 M/UL (4.20-5.40); RED CELL DISTRIBUTION WIDTH 18.1 % (11.6-14.8); WHITE BLOOD COUNT 10.4 K/UL (4.8-10.8)
[2017-04-22] MEDS: Phenytoin Susp 100mg/4ml GT SCH ×3 (08:59→17:05)
[2017-04-22] MEDS: levETIRAcetam 500mg/5ml Liquid GT SCH ×2 (08:59→21:10)
[2017-04-22] MEDS: Enoxaparin 40mg Inj SUBQ SCH (09:00)
[2017-04-22] MEDS ORDERED: KCl 10% 40mEq/30ml liquid NG ONE (09:15)
[2017-04-22 12:44] VITALS: BP 133/71
--- NOTE | 2017-04-22 14:39 | Infectious Diseases Prog Note ---
Infectious Disease Consult Infectious Disease Consult Infectious Disease Consult INFECTIOUS DISEASE CONSULTATION DATE OF CONSULTATION: 22Apr2017 CONSULTING PHYSICIAN: Kimani Vázquez M.D., MTM&H, CTropMed Covering for Dr. Madera REFERRING PHYSICIAN: Savi Rodriguez M.D. REASON FOR CONSULTATION: Severe sepsis and UTI, r/o ventilator associated pneumonia HISTORY OF PRESENT ILLNESS: 76-year-old AAF, jail resident with history of chronic encephalopathy secondary to anoxic brain injury and chronic ventilator-dependent respiratory failure sent in from jail for fever to 103F and several episodes of non bilious emesis. In the ER, had Tmax of 100.7F, leukocytosis of 16, contraction alkalosis on labs with hypokalemia secondary to emesis, intermittent hypotension meeting sepsis criteria, urinalysis suggests probable urinary tract infection, and urine culture is already growing greater than 100,000 colony-forming units of gram-negative rods. PCXR does not suggest pneumonia. patient is non berbal. h /o multi-drug resistant infections. prior h/o decubitus ulcers. She was started on empiric IV vancomycin and zosyn after cultures were obtained. PAST MEDICAL HISTORY: 1. Hypothyroidism. 2. Seizure disorder. 3. Chronic ventilator-dependent respiratory failure. 4. Chronic anoxic encephalopathy. 5. History of recurrent urinary tract infection. 6. History of breast cancer. 7. Morbid obesity. 8. ESBL E coli UTI s/p 7D meropenem completed on [id number] 9. Cholelithiasis PAST SURGICAL HISTORY: 1. Tracheostomy. 2. PEG tube placement. MEDICATIONS: IV vancomycin (04/21/17-- IV zosyn 3.375gm IV q8hr extended infusion (04/21/17-- Scheduled Aspirin* (Aspir 81*), 325 MG GT DAILY, (Reported) Bisacodyl* (Dulcolax*), 10 MG RECTAL PRN, (Reported) Cran/Vitc/Mannose/Inulin/Brom (Uti-Stat Liquid), 30 ML GT TWICE A DAY, (Reported ) Enoxaparin* (Lovenox*), 40 MG SUBQ DAILY, (Reported) Famotidine (Famotidine), 20 MG GT TWICE A DAY, (Reported) Ferrous Sulfate* (Ferrous Sulfate*), 7.5 ML GT DAILY, (Reported) Heparin Sod (Porcine) (Heparin Sodium*), 5,000 UNITS SUBQ EVERY 12 HOURS, ( Reported) Levetiracetam* (Levetiracetam*), 1,500 MG GT TWICE A DAY, (Reported) Levothyroxine Sodium* (Synthroid*), 25 MCG GT DAILY, (Reported) Magnesium Hydroxide (Milk of Magnesia), 30 ML ORAL DAILY, (Reported) Magnesium Hydroxide* (Milk Of Magnesia*), 30 ML GT PRN, (Reported) Meropenem-0.9% Sodium Chloride (Meropenem-0.9% NaCl 1 Gram/50), 1 GM IV Q8HR Multivitamin With Minerals (Multivitamins With Minerals*), 15 ML GT DAILY, ( Reported) Phenytoin Sodium Extended* (Dilantin*), 300 MG GT TID, (Reported) Phenytoin Sodium Extended* (Dilantin*), 300 MG GT BID, (Reported) Protein Supplement (Promod), 30 ML GT DAILY, (Reported) Vit C/Ascorbate Ca/Ascorb Sod (Vitamin C 500 Mg/15 Ml Liquid), 5 ML GT DAILY, ( Reported) Zinc Sulfate (Zinc Sulfate*), 220 MG GT DAILY, (Reported) Scheduled PRN Acetaminophen (Acetaminophen), 650 MG GT Q6H PRN for Prn Headache/Temp > 101, ( Reported) Ipratropium/Albuterol Sulfate (DuoNeb 0.5-3(2.5)mg/3ml), 3 ML HHN Q6HR PRN for Shortness of Breath, (Reported) Lorazepam* (Ativan*), 1 MG GT EVERY 6 HOURS PRN for Agitation, (Reported) Na Phos,M-B/Na Phos,Di-Ba* (Fleet Enema*), 133 ML RECTAL DAILY PRN for Constipation, (Reported) ALLERGIES: Peanuts. FAMILY HISTORY: Unknown. SOCIAL HISTORY: The patient is a resident of a jail. No active tobacco, alcohol, or illicit drug abuse. REVIEW OF SYSTEMS: Unable to obtain. PHYSICAL EXAMINATION: GENERAL: In no acute distress on the ventilator. VITAL SIGNS: Maximum temperature 100.7F degrees, blood pressure 133/71, heart rate in the 70s to 102, respiratory rate 21, and saturating 96% on 40% FiO2. HEENT: Tracheostomy tube in place. thick but clear secretions around the trach CARDIOVASCULAR: Regular rate and rhythm. No murmurs. PULMONARY: Coarse breath sounds bilaterally. ABDOMEN: Bowel sounds present. obese, Soft, nondistended, and nontender, no hepatosplenomegaly. PEG tube in place, without surrounding erythema EXTREMITIES: trace BLE edema. PIV in place x2 c/d/i. no central lines SKIN: No rash, no petechiae. : no gould in place rectal: copious liquid stool in the bed back: (reviewed wound care images): Stage I sacral decubitus ulcer. no discharge, no drainage, no cellulitis. LABORATORY DATA: White blood cell count 10.4 decreased from 16.1 with left shift, hemoglobin 9.0 decreased from 10.5, and platelets 258,000. Sodium 138 increased from 132, potassium 2.7, chloride 102, bicarbonate 28, BUN 10, glucose 113, and creatinine 0.4, Mg 1.9, alb 3.1. Lactic acid is 1.3 decreased from 2.2. Troponin negative x1. BNP is 521 is less than at prior admission of 1941. T bili 0.9, ast 38, alt 20, alk phos 446, CK 24. Urinalysis is positive MICROBIOLOGY: 04/21/17 Urine culture, pending, growing >100 cfu GNR Blood culture, pending sputum culture, pending IMAGING: Patient : STEFAN PABLO Referring Physician: Kenton Toribio ID Number: [id number] Service Date: 04/21/17 : 1940 Report Date: 04/21/17 Gender: F Accession No.: [id number] Location: [facility] Procedure: XRAY Chest 1v Indication: SOB Technique: One view of the chest Comparison: A4 2017 Findings: There is a tracheostomy in place. Again demonstrated is diffuse bilateral interstitial disease and central bronchial wall thickening, appearing unchanged. Pleural spaces are grossly clear. No significant interim change Impression: Bilateral diffuse interstitial disease. Similarity to previous exam suggests this may at least in part be chronic. Correlate with clinical findings ASSESSMENT: 76 y/o trach/peg/VDRF admitted 04/21/17 for fevers, appears to have gram negative UTI (non catheter associated), r/o cholecystitis, r/o C diff s/p recent antibiotic course: --Recurrent gram-negative marla urinary tract infection. h/o Recurrent ESBL(+) E.coli UTI - h/o qR-PSA, E.coli - (s/p 04/10/17 IV meropenem D#7) Urine culture is pending. She has a history of growth of quinolone resistant Pseudomonas aeruginosa and E. coli. --h/o KPC-K.pneumoniae bacteremia 12/06 ?urinary vs biliary source vs PICC CLABSI - repeat BCx cleared 10/11 SP Rx w/o recurrence. blood cx from 04/03/17 are negative. 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 Blood cultures cleared on 10/11/2016, the patient is status post treatment rule out recurrence. Surveillance blood culture is pending drawn 04/21/17. --History of possible aspiration pneumonia and pneumonitis, rule out recurrence , PCXR shows some chronic interstitial pattern but no new infiltrate or effusion. She has a history of growth of Acinetobacter lwoffii and Pseudomonas aeruginosa and Proteus mirabilis. --Sepsis without lactic acidosis. --Leukocytosis, improved, afebrile. --Emesis, elevated alkaline phosphatase, and h/o cholelithiasis (seen on Spring 2016 RUQ u/s). r/o acute biliary source of fevers, although labs do not suggest ascending cholangitis must r/o cholecystitis. --Hypotension, resolved. --Chronic anoxic encephalopathy. --Acute on chronic ventilator-dependent respiratory failure, status post tracheostomy and percutaneous endoscopic gastrostomy. We will increase FiO2 requirements. --Seizure disorder. --History of breast cancer. --Morbid obesity. 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 --hypokalemia s/p emesis --No antibiotic allergies. --Full Code. PLAN: - Continue empiric IV vancomycin and Zosyn day #1. May discontinue intravenous vancomycin soon if no gram-positive organisms are identified. - Follow up cultures. - stool C diff now, although I understand she's been on miralax, she has copious loose stools with recent broad spectrum antibiotics. - RUQ u/s to r/o cholecystitis. - Monitor CBC and temperatures. - Monitor BMP. - Monitor chest x-ray. - Ventilator support, tracheostomy care, and aspiration precautions. - Seizure precautions. Thank you for this consultation. Will continue to follow. Covering for Dr. Madera, please call me with questions, Kimani Vázquez M.D. Apr 22, 2017 14:39
[2017-04-22 16:00] VITALS: BP 113/54
[2017-04-22] MEDS: Vancomycin 1500mg IVPB SCH (19:30)
[2017-04-22 19:34] VITALS: BP 126/59
[2017-04-22] MEDS ORDERED: Vancomycin 1 GM in D5W 275 ML IV SCH (23:00)
[2017-04-23] VITALS: BP 94/50
[2017-04-23 04:00] VITALS: BP 108/54
[2017-04-23 06:07] LABS: BASOPHILS % (AUTO) 0.8 % (0.0-2.0); EOSINOPHILS % (AUTO) 6.5 % (0.0-3.0); LYMPHOCYTES % (AUTO) 11.8 % (20.0-45.0); MEAN CORPUSCULAR HEMOGLOBIN 30.7 PG (27.0-31.0); MEAN CORPUSCULAR HGB CONC 30.7 G/DL (32.0-36.0); MEAN CORPUSCULAR VOLUME 100 FL (80-99); MEAN PLATELET VOLUME 9.2 FL (6.5-10.1); MONOCYTES % (AUTO) 11.8 % (1.0-10.0); NEUTROPHILS % (AUTO) 69.1 % (45.0-75.0); PLATELET COUNT 264 K/UL (150-450); RED BLOOD COUNT 3.14 M/UL (4.20-5.40); RED CELL DISTRIBUTION WIDTH 17.7 % (11.6-14.8)
[2017-04-23 06:17] LABS: ANION GAP 12 (5-15); CALCIUM 9.7 mg/dL (8.6-10.2); CARBON DIOXIDE 25 mEQ/L (20-30); CHLORIDE 101 mEQ/L (98-107); CREATININE 0.4 mg/dL (0.5-0.9); HEMOLYSIS 32; POTASSIUM 3.7 mEQ/L (3.4-4.9); SODIUM 138 mEQ/L (135-145)
[2017-04-23 06:21] LABS: WHITE BLOOD COUNT 6.2 K/UL (4.8-10.8)
[2017-04-23] MEDS: Piperacillin/Tazobactam 3.375 GM in NS 110 ML IVPB SCH ×2 (06:31→14:16)
[2017-04-23 08:00] VITALS: BP 103/55
[2017-04-23] MEDS: Phenytoin Susp 100mg/4ml GT SCH ×3 (08:17→17:33)
[2017-04-23] MEDS: levETIRAcetam 500mg/5ml Liquid GT SCH ×2 (08:17→21:39)
[2017-04-23] MEDS: Enoxaparin 40mg Inj SUBQ SCH (08:18)
--- NOTE | 2017-04-23 10:40 | Pulmonology Progress Note ---
Assessment/Plan Assessment/Plan ASSESSMENT sepsis ( tachy, fever, leukocytosis) UTI hx of recurrent ESBL UTI ( last one recent) acute and chronic respiratory failure VDRF/trach anoxic encephalopathy anemia e/lyte imbalance : hypo Na, hypo K, dysphagia, G tube vomiting seizure disorder morbid obesity PLAN OF CARE DIANA vent/trach care, titrate Fio2, TV, AC prn pulmonary toilet ABG stable on current settings keep as is and titrate as needed abx urine cx + GNB, blood cx preliminary negative fup with final cx ID follows seizure precautions, continue Keppra and Dilantin ( Dilantin level slightyl low but considering low albumin, ok) strict aspiration precautions, GT feeding, monitor tolerance a/emetic prn vomiting noted in SNF, no vomiting while in the hospital, tolerates GT feeding Venous Duplex BLE, SCD if negative s/p 1 L NS in ED lytes stable after replacement wound nurse eval monitor HH, transfuse prn to keep Hgb above 7 GI prophylaxis case discussed and evaluated by supervising physician Subjective Allergies: Coded Allergies: PEANUT (Verified Allergy, Unknown, 09/22/16) Subjective leukocytosis resolved, afebrile no signs of respiratory distress on current settings Objective Last 24 Hour Vital Signs Date Time Temp Pulse Resp B/P Pulse Ox O2 Delivery O2 Flow Rate FiO2 04/23/17 08:37 67 15 40 04/23/17 08:00 97.7 72 17 103/55 97 Mechanical Ventilator 40 04/23/17 08:00 57 04/23/17 08:00 40 04/23/17 06:50 76 20 40 04/23/17 05:03 74 17 40 04/23/17 04:00 40 04/23/17 04:00 97.3 72 16 108/54 96 Mechanical Ventilator 40 04/23/17 03:34 72 04/23/17 03:21 79 16 40 04/23/17 01:22 70 15 40 04/23/17 00:00 40 04/23/17 00:00 97.2 72 15 94/50 97 Mechanical Ventilator 40 04/22/17 23:44 69 04/22/17 23:25 71 15 40 04/22/17 21:16 72 19 40 04/22/17 20:00 40 04/22/17 19:59 83 04/22/17 19:34 97.2 71 16 126/59 97 Mechanical Ventilator 40 04/22/17 19:06 69 16 40 04/22/17 16:59 66 04/22/17 16:43 71 17 40 04/22/17 16:00 40 04/22/17 16:00 96.8 72 18 113/54 97 Mechanical Ventilator 40 04/22/17 15:03 72 15 40 04/22/17 12:48 75 16 40 04/22/17 12:44 97.7 102 18 133/71 96 Mechanical Ventilator 40 04/22/17 12:30 64 04/22/17 12:00 40 04/22/17 10:59 77 17 40 Intake and Output 04/22/17 04/23/17 19:00 07:00 Intake Total 720.0 ml 800.0 ml Balance 720.0 ml 800.0 ml IV Total 510.0 ml 110.0 ml Tube Feeding 120 ml 440 ml Other 90 ml 250 ml # Voids 2 1 # Bowel Movements 2 2 Objective General Appearance: no acute distress, obese bedridden lethargic AA female in NAD ; vent dependent Vent AC 600-12-40% HEENT: status post trach - Portex#8, secretions small, white, thin Respiratory/Chest: lungs clear Cardiovascular: normal rate - SB in 50th Abdomen: normal bowel sounds, soft, non tender - obese, other - G tube Extremities: +1 edema BLE Neurologic/Psychiatric: abnormal gait - bedridden , other - lethargic, w/draws to tactile stimuli, spastic LE Musculoskeletal: atrophy - BLE Microbiology Date/Time Source Procedure Growth Status 04/21/17 14:50 Blood Blood Culture - Preliminary NO GROWTH AFTER 24 HOURS Resulted 04/21/17 14:14 Blood Blood Culture - Preliminary NO GROWTH AFTER 24 HOURS Resulted 04/21/17 17:11 Urine,Clean Catch Urine Culture - Preliminary Gram Negative Waldo Resulted Laboratory Tests 04/23/17 04:15: White Blood Count 6.2, Red Blood Count 3.14L, Hemoglobin 9.6L, Hematocrit 31.4L , Mean Corpuscular Volume 100H, Mean Corpuscular Hemoglobin 30.7, Mean Corpuscular Hemoglobin Concent 30.7L, Red Cell Distribution Width 17.7H, Platelet Count 264, Mean Platelet Volume 9.2, Neutrophils (%) (Auto) 69.1, Lymphocytes (%) (Auto) 11.8L, Monocytes (%) (Auto) 11.8H, Eosinophils (%) (Auto ) 6.5H, Basophils (%) (Auto) 0.8, Sodium Level 138, Potassium Level 3.7, Chloride Level 101, Carbon Dioxide Level 25, Anion Gap 12, Blood Urea Nitrogen 9 , Creatinine 0.4L, Estimat Glomerular Filtration Rate , Glucose Level 105, Calcium Level 9.7 Current Medications Medications (Trade) Dose Ordered Sig/Boubacar Route PRN Reason Start Time Stop Time Status Last Admin Dose Admin Acetaminophen (Tylenol) 650 mg Q4H PRN ORAL FEVER 04/21/17 15:00 05/21/17 14:59 Albuterol/ Ipratropium (DuoNeb 0.5-3(2.5)mg/3ml) 3 ml Q4H PRN HHN Shortness of Breath 04/21/17 15:00 04/26/17 14:59 Aspirin (ASA) 325 mg DAILY GT 04/22/17 09:00 05/22/17 08:59 04/23/17 08:17 Dextrose STAT PRN IV Hypoglycemia 04/21/17 15:00 05/21/17 14:59 Enoxaparin Sodium (Lovenox) 40 mg DAILY SUBQ 04/22/17 09:00 05/22/17 08:59 04/23/17 08:18 Levetiracetam (Keppra) 1,500 mg Q12HR GT 04/21/17 21:00 05/21/17 20:59 04/23/17 08:17 Lorazepam (Ativan 2mg/ml 1ml) 2 mg Q2H PRN IV For Anxiety 04/21/17 15:00 04/28/17 14:59 Morphine Sulfate (Morphine Sulfate) 4 mg Q4H PRN IVP Severe Pain (Pain Scale 7-10) 04/21/17 15:00 04/28/17 14:59 Ondansetron HCl (Zofran) 4 mg Q6H PRN IVP Nausea & Vomiting 04/21/17 15:00 05/21/17 14:59 Phenytoin (Dilantin) 300 mg TID GT 04/21/17 18:00 05/21/17 17:59 04/23/17 08:17 Piperacillin Sod/ Tazobactam Sod 3.375 gm/Sodium Chloride 110 ml @ 27.5 mls/hr Q8HR IVPB 04/21/17 22:00 04/28/17 21:59 04/23/17 06:31 Polyethylene Glycol (Miralax) 17 gm DAILYPRN PRN ORAL Constipation 04/21/17 15:00 05/21/17 14:59 Ranitidine HCl (Zantac) 150 mg BEDTIME ORAL 04/22/17 21:00 05/22/17 20:59 04/22/17 21:10 Vancomycin HCl (Vanco rx to dose) 1 ea DAILY PRN MISC PRN RX PROTOCOL 04/21/17 19:30 05/21/17 19:29 Vancomycin HCl/ Dextrose (Vancomycin 1.5gm/D5W 250ml) 250 ml @ 125 mls/hr Q24H IVPB 04/21/17 20:00 04/26/17 19:59 04/22/17 19:30 Dennis (Eli)Libby NP Apr 23, 2017 10:40
[2017-04-23 12:01] VITALS: BP 95/57
--- NOTE | 2017-04-23 14:47 | Infectious Diseases Prog Note ---
Assessment/Plan Assessment/Plan ASSESSMENT: 76 y/o trach/peg/VDRF admitted 04/21/17 for fevers, ruled out for C diff, and although perhaps her transient fever and leukocytosis were secondary to t a resp mucus plug that cleared, we'll also r/o cholecystitis and treat this MDR Klebsiella UTI (non catheter associated) : --MDR Klebsiella UTI, complicated. sensitive to tigecycline. D#2 IV vanc/zosyn h/o Recurrent ESBL(+) E.coli UTI - h/o qR-PSA, E.coli - (s/p 04/10/17 IV meropenem D#7) She has a history of growth of quinolone resistant Pseudomonas aeruginosa and E. coli. --h/o KPC-K.pneumoniae bacteremia 12/06 ?urinary vs biliary source vs PICC CLABSI - repeat BCx cleared 10/11 SP Rx w/o recurrence. blood cx from 04/03/17 are negative. 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 Blood cultures cleared on 10/11/2016, the patient is status post treatment rule out recurrence. Surveillance blood culture is pending drawn 04/21/17. --History of possible aspiration pneumonia and pneumonitis, rule out recurrence , PCXR shows some chronic interstitial pattern but no new infiltrate or effusion. She has a history of growth of Acinetobacter lwoffii and Pseudomonas aeruginosa and Proteus mirabilis. --Sepsis without lactic acidosis. --Leukocytosis, improved, afebrile. --Emesis, elevated alkaline phosphatase, and h/o cholelithiasis (seen on Spring 2016 RUQ u/s). r/o acute biliary source of fevers, although labs do not suggest ascending cholangitis must r/o cholecystitis. --Hypotension, resolved. --Chronic anoxic encephalopathy. --Acute on chronic ventilator-dependent respiratory failure, status post tracheostomy and percutaneous endoscopic gastrostomy. We will increase FiO2 requirements. --Seizure disorder. --History of breast cancer. --Morbid obesity. 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 --hypokalemia s/p emesis --No antibiotic allergies. --Full Code. PLAN: - No gram positives identified, with blood cx from 04/21 ngtd. D/c vanomcyin now. - Only infection identified in complicated UTI, and although her leukocytosis has resolved on zosyn, her urine now is confirmed growing a MDR Klebsiella that is sensitive only to colistin and tigecycline. -->D/C zosyn. Start tigecycline 50mg IV q12hr D#0 of 10. forego the loading dose given her clinical stability and resolution of leukocytosis. - Follow up blood cx. - f/u RUQ u/s to r/o cholecystitis as less likely cause of leukocytosis. - Monitor CBC and temperatures. - Monitor BMP. - Monitor chest x-ray. - Ventilator support, tracheostomy care, and aspiration precautions. - Seizure precautions. Subjective ROS Limited/Unobtainable: Yes Allergies: Coded Allergies: PEANUT (Verified Allergy, Unknown, 09/22/16) Objective Vital Signs Last 24 Hour Vital Signs Date Time Temp Pulse Resp B/P Pulse Ox O2 Delivery O2 Flow Rate FiO2 04/23/17 12:57 71 20 40 04/23/17 12:01 97.8 65 17 95/57 97 Mechanical Ventilator 40 04/23/17 12:00 40 04/23/17 12:00 46 04/23/17 10:55 69 18 40 04/23/17 08:37 67 15 40 04/23/17 08:00 97.7 72 17 103/55 97 Mechanical Ventilator 40 04/23/17 08:00 57 04/23/17 08:00 40 04/23/17 06:50 76 20 40 04/23/17 05:03 74 17 40 04/23/17 04:00 40 04/23/17 04:00 97.3 72 16 108/54 96 Mechanical Ventilator 40 04/23/17 03:34 72 04/23/17 03:21 79 16 40 04/23/17 01:22 70 15 40 04/23/17 00:00 40 04/23/17 00:00 97.2 72 15 94/50 97 Mechanical Ventilator 40 04/22/17 23:44 69 04/22/17 23:25 71 15 40 04/22/17 21:16 72 19 40 04/22/17 20:00 40 04/22/17 19:59 83 04/22/17 19:34 97.2 71 16 126/59 97 Mechanical Ventilator 40 04/22/17 19:06 69 16 40 04/22/17 16:59 66 04/22/17 16:43 71 17 40 04/22/17 16:00 40 04/22/17 16:00 96.8 72 18 113/54 97 Mechanical Ventilator 40 04/22/17 15:03 72 15 40 Height (Feet): 5 Height (Inches): 6.00 Weight (Pounds): 239 Objective HEENT: Tracheostomy tube in place. thick but clear secretions around the trach CARDIOVASCULAR: Regular rate and rhythm. No murmurs. PULMONARY: Coarse breath sounds bilaterally. ABDOMEN: Bowel sounds present. obese, Soft, nondistended, and nontender, no hepatosplenomegaly. PEG tube in place, without surrounding erythema EXTREMITIES: trace BLE edema. PIV in place x2 c/d/i. no central lines SKIN: No rash, no petechiae. : no gould in place rectal: copious liquid stool in the bed back: (reviewed wound care images): Stage I sacral decubitus ulcer. no discharge, no drainage, no cellulitis. Microbiology Date/Time Source Procedure Growth Status 04/21/17 14:50 Blood Blood Culture - Preliminary NO GROWTH AFTER 24 HOURS Resulted 04/21/17 14:14 Blood Blood Culture - Preliminary NO GROWTH AFTER 24 HOURS Resulted 04/23/17 03:30 Stool Clostridium difficile Toxin Assay - Final Complete 04/21/17 17:11 Urine,Clean Catch Urine Culture - Preliminary Klebsiella Pneumoniae - Mdr Resulted Laboratory Tests Test 04/23/17 04:15 White Blood Count 6.2 K/UL (4.8-10.8) Red Blood Count 3.14 M/UL (4.20-5.40) L Hemoglobin 9.6 G/DL (12.0-16.0) L Hematocrit 31.4 % (37.0-47.0) L Mean Corpuscular Volume 100 FL (80-99) H Mean Corpuscular Hemoglobin 30.7 PG (27.0-31.0) Mean Corpuscular Hemoglobin Concent 30.7 G/DL (32.0-36.0) L Red Cell Distribution Width 17.7 % (11.6-14.8) H Platelet Count 264 K/UL (150-450) Mean Platelet Volume 9.2 FL (6.5-10.1) Neutrophils (%) (Auto) 69.1 % (45.0-75.0) Lymphocytes (%) (Auto) 11.8 % (20.0-45.0) L Monocytes (%) (Auto) 11.8 % (1.0-10.0) H Eosinophils (%) (Auto) 6.5 % (0.0-3.0) H Basophils (%) (Auto) 0.8 % (0.0-2.0) Sodium Level 138 mEQ/L (135-145) Potassium Level 3.7 mEQ/L (3.4-4.9) Chloride Level 101 mEQ/L (98-107) Carbon Dioxide Level 25 mEQ/L (20-30) Anion Gap 12 (5-15) Blood Urea Nitrogen 9 mg/dL (7-23) Creatinine 0.4 mg/dL (0.5-0.9) L Estimat Glomerular Filtration Rate mL/min (>60) Glucose Level 105 mg/dL (74-106) Calcium Level 9.7 mg/dL (8.6-10.2) Current Medications Medications (Trade) Dose Ordered Sig/Boubacar Route PRN Reason Start Time Stop Time Status Last Admin Dose Admin Acetaminophen (Tylenol) 650 mg Q4H PRN ORAL FEVER 04/21/17 15:00 05/21/17 14:59 Albuterol/ Ipratropium (DuoNeb 0.5-3(2.5)mg/3ml) 3 ml Q4H PRN HHN Shortness of Breath 04/21/17 15:00 04/26/17 14:59 Aspirin (ASA) 325 mg DAILY GT 04/22/17 09:00 05/22/17 08:59 04/23/17 08:17 Dextrose STAT PRN IV Hypoglycemia 04/21/17 15:00 05/21/17 14:59 Enoxaparin Sodium (Lovenox) 40 mg DAILY SUBQ 04/22/17 09:00 05/22/17 08:59 04/23/17 08:18 Levetiracetam (Keppra) 1,500 mg Q12HR GT 04/21/17 21:00 05/21/17 20:59 04/23/17 08:17 Lorazepam (Ativan 2mg/ml 1ml) 2 mg Q2H PRN IV For Anxiety 04/21/17 15:00 04/28/17 14:59 Morphine Sulfate (Morphine Sulfate) 4 mg Q4H PRN IVP Severe Pain (Pain Scale 7-10) 04/21/17 15:00 04/28/17 14:59 Ondansetron HCl (Zofran) 4 mg Q6H PRN IVP Nausea & Vomiting 04/21/17 15:00 05/21/17 14:59 Phenytoin (Dilantin) 300 mg TID GT 04/21/17 18:00 05/21/17 17:59 04/23/17 14:16 Piperacillin Sod/ Tazobactam Sod 3.375 gm/Sodium Chloride 110 ml @ 27.5 mls/hr Q8HR IVPB 04/21/17 22:00 04/28/17 21:59 04/23/17 14:16 Polyethylene Glycol (Miralax) 17 gm DAILYPRN PRN ORAL Constipation 04/21/17 15:00 05/21/17 14:59 Ranitidine HCl (Zantac) 150 mg BEDTIME ORAL 04/22/17 21:00 05/22/17 20:59 04/22/17 21:10 Vancomycin HCl (Vanco rx to dose) 1 ea DAILY PRN MISC PRN RX PROTOCOL 04/21/17 19:30 05/21/17 19:29 Vancomycin HCl/ Dextrose (Vancomycin 1.5gm/D5W 250ml) 250 ml @ 125 mls/hr Q24H IVPB 04/21/17 20:00 04/26/17 19:59 04/22/17 19:30 Kimani Vázquez M.D. Apr 23, 2017 14:47
[2017-04-23] MEDS ORDERED: NS 550ML IV ONE (15:11)
[2017-04-23] MEDS ORDERED: Tubing IV Secondary IV ONE ×2 (15:11→15:45)
[2017-04-23] MEDS: Tigecycline 50 MG in D5W 110 ML IVPB SCH (15:39)
[2017-04-23 16:00] VITALS: BP 119/59
--- NOTE | 2017-04-23 17:12 | Cardiology Report ---
APPROVED REPORT EKG Measurement Heart [id number] Sinus tachycardia Right bundle branch block Abnormal ECG
--- NOTE | 2017-04-23 17:48 | Diagnostic Imaging Report ---
APPROVED REPORT CPT Code: 16833 Present Symptoms Lower Extremity Edema: Bilateral Shortness of breath Comments: Hx CHF. Prior venous duplex 04/02/2017. Technically difficult study due to vessel depth (bilateral proximal to distal thigh). BILATERAL: Imaging reveals a patent deep venous system bilaterally. There is no evidence of thrombus within the femoral, popliteal or tibial segments. The greater saphenous veins are also within normal limits. Doppler indicates normal spontaneous flow within these segments.
[2017-04-23 20:00] VITALS: BP 123/59
[2017-04-24] VITALS: BP 112/60
[2017-04-24 04:00] VITALS: BP 105/56
[2017-04-24] MEDS: Tigecycline 50 MG in D5W 110 ML IVPB SCH ×2 (04:20→16:12)
[2017-04-24 05:38] LABS: EOSINOPHILS % (AUTO) 5.5 % (0.0-3.0); LYMPHOCYTES % (AUTO) 15.4 % (20.0-45.0); MEAN CORPUSCULAR HEMOGLOBIN 32.4 PG (27.0-31.0); MEAN CORPUSCULAR HGB CONC 32.2 G/DL (32.0-36.0); MEAN CORPUSCULAR VOLUME 101 FL (80-99); MEAN PLATELET VOLUME 8.5 FL (6.5-10.1); MONOCYTES % (AUTO) 9.5 % (1.0-10.0); NEUTROPHILS % (AUTO) 68.6 % (45.0-75.0); PLATELET COUNT 227 K/UL (150-450); RED BLOOD COUNT 2.83 M/UL (4.20-5.40); RED CELL DISTRIBUTION WIDTH 17.6 % (11.6-14.8)
[2017-04-24 06:11] LABS: ANION GAP 13 (5-15); CALCIUM 9.7 mg/dL (8.6-10.2); CARBON DIOXIDE 23 mEQ/L (20-30); CHLORIDE 103 mEQ/L (98-107); CREATININE 0.4 mg/dL (0.5-0.9); HEMOLYSIS 22; POTASSIUM 3.5 mEQ/L (3.4-4.9); SODIUM 139 mEQ/L (135-145)
[2017-04-24 08:02] VITALS: BP 121/65
[2017-04-24] MEDS: Phenytoin Susp 100mg/4ml GT SCH ×3 (08:36→18:21)
[2017-04-24] MEDS: levETIRAcetam 500mg/5ml Liquid GT SCH (08:36)
[2017-04-24] MEDS: Enoxaparin 40mg Inj SUBQ SCH (08:42)
--- NOTE | 2017-04-24 08:58 | Infectious Diseases Prog Note ---
Assessment/Plan Assessment/Plan A: Sepsis Complicated UTI VDRF MRSA & VRE colonization Morbid obesity Encephalopathy P: Continue Tygacil day # 2 Subjective ROS Limited/Unobtainable: Yes Allergies: Coded Allergies: PEANUT (Verified Allergy, Unknown, 09/22/16) Objective Vital Signs Last 24 Hour Vital Signs Date Time Temp Pulse Resp B/P Pulse Ox O2 Delivery O2 Flow Rate FiO2 04/24/17 08:46 72 15 40 04/24/17 08:02 97.8 71 17 121/65 99 Mechanical Ventilator 40 04/24/17 07:03 70 15 40 04/24/17 05:10 67 14 40 04/24/17 04:00 98.5 75 21 105/56 96 Mechanical Ventilator 40 04/24/17 04:00 66 04/24/17 04:00 40 04/24/17 02:52 81 15 40 04/24/17 01:22 72 20 40 04/24/17 00:00 40 04/24/17 00:00 97.8 79 21 112/60 98 Mechanical Ventilator 40 04/23/17 22:41 69 12 40 04/23/17 21:08 71 15 40 04/23/17 20:58 60 04/23/17 20:00 40 04/23/17 20:00 97.3 72 22 123/59 98 Mechanical Ventilator 40 04/23/17 19:55 77 04/23/17 18:44 67 16 40 04/23/17 16:46 53 17 40 04/23/17 16:00 54 04/23/17 16:00 40 04/23/17 16:00 97.3 72 20 119/59 98 Mechanical Ventilator 40 04/23/17 15:12 50 16 40 04/23/17 12:57 71 20 40 04/23/17 12:01 97.8 65 17 95/57 97 Mechanical Ventilator 40 04/23/17 12:00 40 04/23/17 12:00 46 04/23/17 10:55 69 18 40 Height (Feet): 5 Height (Inches): 6.00 Weight (Pounds): 240 General Appearance: no acute distress HEENT: status post trach Respiratory/Chest: lungs clear, other - on ventilator Cardiovascular: normal rate Abdomen: soft, non tender, other - GT feeding Extremities: no edema Neurologic/Psychiatric: unresponsiveness Microbiology Date/Time Source Procedure Growth Status 04/21/17 14:50 Blood Blood Culture - Preliminary NO GROWTH AFTER 48 HOURS Resulted 04/21/17 14:14 Blood Blood Culture - Preliminary NO GROWTH AFTER 48 HOURS Resulted 04/23/17 03:30 Stool Clostridium difficile Toxin Assay - Final Complete 04/21/17 17:11 Urine,Clean Catch Urine Culture - Preliminary K.pneumoniae Carbapenem Resist Resulted Laboratory Tests Test 04/24/17 03:35 White Blood Count 6.0 K/UL (4.8-10.8) Red Blood Count 2.83 M/UL (4.20-5.40) L Hemoglobin 9.2 G/DL (12.0-16.0) L Hematocrit 28.5 % (37.0-47.0) L Mean Corpuscular Volume 101 FL (80-99) H Mean Corpuscular Hemoglobin 32.4 PG (27.0-31.0) H Mean Corpuscular Hemoglobin Concent 32.2 G/DL (32.0-36.0) Red Cell Distribution Width 17.6 % (11.6-14.8) H Platelet Count 227 K/UL (150-450) Mean Platelet Volume 8.5 FL (6.5-10.1) Neutrophils (%) (Auto) 68.6 % (45.0-75.0) Lymphocytes (%) (Auto) 15.4 % (20.0-45.0) L Monocytes (%) (Auto) 9.5 % (1.0-10.0) Eosinophils (%) (Auto) 5.5 % (0.0-3.0) H Basophils (%) (Auto) 1.0 % (0.0-2.0) Sodium Level 139 mEQ/L (135-145) Potassium Level 3.5 mEQ/L (3.4-4.9) Chloride Level 103 mEQ/L (98-107) Carbon Dioxide Level 23 mEQ/L (20-30) Anion Gap 13 (5-15) Blood Urea Nitrogen 13 mg/dL (7-23) Creatinine 0.4 mg/dL (0.5-0.9) L Estimat Glomerular Filtration Rate mL/min (>60) Glucose Level 107 mg/dL (74-106) H Calcium Level 9.7 mg/dL (8.6-10.2) Current Medications Medications (Trade) Dose Ordered Sig/Boubacar Route PRN Reason Start Time Stop Time Status Last Admin Dose Admin Acetaminophen (Tylenol) 650 mg Q4H PRN ORAL FEVER 04/21/17 15:00 05/21/17 14:59 Albuterol/ Ipratropium (DuoNeb 0.5-3(2.5)mg/3ml) 3 ml Q4H PRN HHN Shortness of Breath 04/21/17 15:00 04/26/17 14:59 Aspirin (ASA) 325 mg DAILY GT 04/22/17 09:00 05/22/17 08:59 04/24/17 08:35 Dextrose (Dextrose 50%) STAT PRN IV Hypoglycemia 04/21/17 15:00 05/21/17 14:59 Enoxaparin Sodium (Lovenox) 40 mg DAILY SUBQ 04/22/17 09:00 05/22/17 08:59 04/24/17 08:42 Levetiracetam (Keppra) 1,500 mg Q12HR GT 04/21/17 21:00 05/21/17 20:59 04/24/17 08:36 Lorazepam (Ativan 2mg/ml 1ml) 2 mg Q2H PRN IV For Anxiety 04/21/17 15:00 04/28/17 14:59 Morphine Sulfate (Morphine Sulfate) 4 mg Q4H PRN IVP Severe Pain (Pain Scale 7-10) 04/21/17 15:00 04/28/17 14:59 Ondansetron HCl (Zofran) 4 mg Q6H PRN IVP Nausea & Vomiting 04/21/17 15:00 05/21/17 14:59 Phenytoin (Dilantin) 300 mg TID GT 04/21/17 18:00 05/21/17 17:59 04/24/17 08:36 Polyethylene Glycol (Miralax) 17 gm DAILYPRN PRN ORAL Constipation 04/21/17 15:00 05/21/17 14:59 Ranitidine HCl 150 mg 150 mg BEDTIME ORAL 04/22/17 21:00 05/22/17 20:59 04/23/17 21:39 Tigecycline/ Dextrose (Tygacil/D5W) 110 ml @ 220 mls/hr Q12H IVPB 04/23/17 16:00 8/27/17 15:59 04/24/17 04:20 MICH THOMPSON Apr 24, 2017 08:58
[2017-04-24] MEDS ORDERED: Tubing IV Secondary IV ONE (10:16)
[2017-04-24] MEDS ORDERED: NS 275ml ONE (10:16)
--- NOTE | 2017-04-24 10:59 | Diagnostic Imaging Report ---
Indication:Abdominal pain Technique: Grayscale and duplex Doppler imaging of the abdomen performed. Comparison: None Findings: The liver is enlarged measuring 23 cm. The demonstrated part of the pancreas, gallbladder, aorta and IVC, both kidneys, spleen appear unremarkable. CBD is 5 mm. There is no biliary ductal dilatation identified. Doppler evaluation of the main portal vein shows patency. There is no ascites. No hydronephrosis seen. Impression: Hepatomegaly
[2017-04-24 11:57] VITALS: BP 108/54
--- NOTE | 2017-04-24 12:20 | Diagnostic Imaging Report ---
Indication: Dyspnea Comparison: 04/21/17 A single view chest radiograph was obtained. Findings: Interstitial opacities demonstrated bilaterally. Heart is enlarged. Tracheostomy lucency which may be a balloon projected over the upper chest. Bones are osteopenic. Impression: No significant change compared to last study. Suspected interstitial edema/CHF
[2017-04-24] MEDS ORDERED: TIGECYCLINE50 MG IV (13:01)
--- NOTE | 2017-04-24 13:03 | Pulmonology Progress Note ---
Assessment/Plan Problems: (1) Feeding by G-tube (2) Vegetative state (3) Anoxic brain damage syndrome (4) Fever (5) Acute and chronic respiratory failure Respiratory: monitor respiratory rate, adjust FIO2 Cardiac: continue to monitor HR/BP Renal: F/U I&O, keep IV fluid Infectious Disease: check cultures Gastrointestinal: continue feedings/current rate Endocrine: monitor blood sugar, continue sliding scale insulin Hematologic: transfuse if hgb<8.5 Neurologic: PRN Ativan, keep patient comfortable Affect: PRN ativan Disposition: keep in ICU 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: cardio Discussed with: nurses, consultants, case management assistant Subjective ROS Limited/Unobtainable: No Constitutional: Reports: no symptoms HEENT: Repors: no symptoms Cardiovascular: Reports: no symptoms Gastrointestinal/Abdominal: Reports: no symptoms Allergies: Coded Allergies: PEANUT (Verified Allergy, Unknown, 09/22/16) Objective Last 24 Hour Vital Signs Date Time Temp Pulse Resp B/P Pulse Ox O2 Delivery O2 Flow Rate FiO2 04/24/17 12:37 69 15 40 04/24/17 11:57 96.8 68 20 108/54 99 Mechanical Ventilator 40 04/24/17 10:48 72 20 40 04/24/17 08:46 72 15 40 04/24/17 08:02 97.8 71 17 121/65 99 Mechanical Ventilator 40 04/24/17 08:00 40 04/24/17 08:00 54 04/24/17 07:03 70 15 40 04/24/17 05:10 67 14 40 04/24/17 04:00 98.5 75 21 105/56 96 Mechanical Ventilator 40 04/24/17 04:00 66 04/24/17 04:00 40 04/24/17 02:52 81 15 40 04/24/17 01:22 72 20 40 04/24/17 00:00 40 04/24/17 00:00 97.8 79 21 112/60 98 Mechanical Ventilator 40 04/23/17 22:41 69 12 40 04/23/17 21:08 71 15 40 04/23/17 20:58 60 04/23/17 20:00 40 04/23/17 20:00 97.3 72 22 123/59 98 Mechanical Ventilator 40 04/23/17 19:55 77 04/23/17 18:44 67 16 40 8/20/17 16:46 53 17 40 04/23/17 16:00 54 04/23/17 16:00 40 04/23/17 16:00 97.3 72 20 119/59 98 Mechanical Ventilator 40 04/23/17 15:12 50 16 40 Intake and Output 04/23/17 04/24/17 19:00 07:00 Intake Total 325.0 ml 970 ml Balance 325.0 ml 970 ml Intake Free Water 200 ml IV Total 235.0 ml 110 ml Tube Feeding 660 ml Other 90 ml # Voids 3 2 # Bowel Movements 1 General Appearance: WD/WN HEENT: normocephalic, atraumatic Respiratory/Chest: chest wall non-tender, normal breath sounds Breasts: no masses Cardiovascular: normal rate, no JVD Abdomen: soft, non tender Genitourinary: normal external genitalia Extremities: no clubbing Skin: no lesions Microbiology Date/Time Source Procedure Growth Status 04/21/17 14:50 Blood Blood Culture - Preliminary NO GROWTH AFTER 48 HOURS Resulted 04/21/17 14:14 Blood Blood Culture - Preliminary NO GROWTH AFTER 48 HOURS Resulted 04/23/17 03:30 Stool Clostridium difficile Toxin Assay - Final Complete 04/21/17 17:11 Urine,Clean Catch Urine Culture - Preliminary K.pneumoniae Carbapenem Resist Resulted Laboratory Tests 04/24/17 03:35: White Blood Count 6.0, Red Blood Count 2.83L, Hemoglobin 9.2L, Hematocrit 28.5L , Mean Corpuscular Volume 101H, Mean Corpuscular Hemoglobin 32.4H, Mean Corpuscular Hemoglobin Concent 32.2, Red Cell Distribution Width 17.6H, Platelet Count 227, Mean Platelet Volume 8.5, Neutrophils (%) (Auto) 68.6, Lymphocytes (%) (Auto) 15.4L, Monocytes (%) (Auto) 9.5, Eosinophils (%) (Auto) 5.5H, Basophils (%) (Auto) 1.0, Sodium Level 139, Potassium Level 3.5, Chloride Level 103, Carbon Dioxide Level 23, Anion Gap 13, Blood Urea Nitrogen 13, Creatinine 0.4L, Estimat Glomerular Filtration Rate , Glucose Level 107H, Calcium Level 9.7 Current Medications Medications (Trade) Dose Ordered Sig/Boubacar Route PRN Reason Start Time Stop Time Status Last Admin Dose Admin Acetaminophen (Tylenol) 650 mg Q4H PRN ORAL FEVER 04/21/17 15:00 05/21/17 14:59 Albuterol/ Ipratropium (DuoNeb 0.5-3(2.5)mg/3ml) 3 ml Q4H PRN HHN Shortness of Breath 04/21/17 15:00 04/26/17 14:59 Aspirin (ASA) 325 mg DAILY GT 04/22/17 09:00 05/22/17 08:59 04/24/17 08:35 Dextrose (Dextrose 50%) STAT PRN IV Hypoglycemia 04/21/17 15:00 05/21/17 14:59 Enoxaparin Sodium (Lovenox) 40 mg DAILY SUBQ 04/22/17 09:00 05/22/17 08:59 04/24/17 08:42 Levetiracetam (Keppra) 1,500 mg Q12HR GT 04/21/17 21:00 05/21/17 20:59 04/24/17 08:36 Lorazepam (Ativan 2mg/ml 1ml) 2 mg Q2H PRN IV For Anxiety 04/21/17 15:00 04/28/17 14:59 Morphine Sulfate (Morphine Sulfate) 4 mg Q4H PRN IVP Severe Pain (Pain Scale 7-10) 04/21/17 15:00 04/28/17 14:59 Ondansetron HCl (Zofran) 4 mg Q6H PRN IVP Nausea & Vomiting 04/21/17 15:00 05/21/17 14:59 Phenytoin (Dilantin) 300 mg TID GT 04/21/17 18:00 05/21/17 17:59 04/24/17 08:36 Polyethylene Glycol (Miralax) 17 gm DAILYPRN PRN ORAL Constipation 04/21/17 15:00 05/21/17 14:59 Ranitidine HCl 150 mg 150 mg BEDTIME ORAL 04/22/17 21:00 05/22/17 20:59 04/23/17 21:39 Tigecycline/ Dextrose (Tygacil/D5W) 110 ml @ 220 mls/hr Q12H IVPB 04/23/17 16:00 04/30/17 15:59 04/24/17 04:20 ANGELA DAVILA Apr 24, 2017 13:03
[2017-04-24 13:17] LABS: OTHERS PATHOLOGIST COMMENT
[2017-04-24 16:00] VITALS: BP 145/84
--- NOTE | 2017-04-26 08:19 | Discharge Summary ---
Discharge Summary Hospital Course Date of Admission Apr 21, 2017 at 16:00 Date of Discharge Apr 24, 2017 at 19:29 Admitting Diagnosis fever, sepsis HPI Kate Donovan is a 76 year old female who was admitted on Apr 21, 2017 at 16 :00 for Fever, Sepsis Hospital Course dc summary #[id number] Discharge Medications New Medications: Tigecycline (Tigecycline) 50 Mg Vial 50 MG IV EVERY 12 HOURS for 8 Days, VIAL Continued Medications: Aspirin* (Aspir 81*) 81 Mg Tablet.dr 325 MG GT DAILY, TAB Enoxaparin* (Lovenox*) 40 Mg/0.4 Ml Inj 40 MG SUBQ DAILY Ipratropium/Albuterol Sulfate (DuoNeb 0.5-3(2.5)mg/3ml) 3 Ml Ampul.neb 3 ML HHN Q6HR PRN for Shortness of Breath, EA Levetiracetam* (Levetiracetam*) 500 Mg Tablet 1500 MG GT TWICE A DAY, #60 TAB 0 Refills Levothyroxine Sodium* (Synthroid*) 25 Mcg Tablet 25 MCG GT DAILY, TAB Take in the morning on an empty stomach, at least 30 minutes before food. Lorazepam* (Ativan*) 1 Mg Tablet 1 MG GT EVERY 6 HOURS PRN for Agitation, TAB Phenytoin Sodium Extended* (Dilantin*) 100 Mg Capsule 300 MG GT TID, #90 CAP Discharge Condition Upon Discharge: stable Discharge Disposition Patient was discharged to SNF/Subacute Facility(03) Discharge Diagnoses: Dennis (Vanchtein),Libby FENG Apr 26, 2017 08:19
--- NOTE | 2017-04-26 09:01 | Discharge Summary 2 SIG ---
DATE OF ADMISSION: 04/21/2017 DATE OF DISCHARGE: 04/24/2017 REASON FOR ADMISSION: This is a 76-year-old female with past medical history of ventilator-dependent respiratory failure, dysphagia, G-tube, recurrent urinary tract infection, pneumonia, sepsis, anoxic encephalopathy, and seizure disorder, was sent to emergency room from [facility], where she resolved for evaluation of fever. The patient had several episodes of vomiting while in the facility. Fever was 103 degrees. In the emergency department, workup revealed WBC 16.1 and potassium was 3.2. ABGs on current ventilator setting were stable. Chest x-ray revealed bilateral diffuse interstitial disease, partially chronic compared to the previous x-ray. Hemoglobin 10.5 and hematocrit 34.3. The patient admitted for further management. ADMITTING DIAGNOSES: 1. Possible sepsis. 2. Urinary tract infection. 3. 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 4. Recently acute on chronic respiratory failure with ventilator- dependent respiratory failure and tracheostomy. 5. Anoxic encephalopathy. 6. Anemia. 7. Electrolyte imbalance; hypokalemia. 8. Dysphagia, gastrostomy tube. 9. Vomiting. 10. Seizure disorder. 11. Morbid obesity. Of note, in the emergency department, the patient was tachycardic. Leukocytosis 16.1 and fever 100.7 degrees. Lactic acid was 2.2. HOSPITAL STAY: The patient admitted to [facility]. Ventilator support and tracheostomy care provided. ABG was stable on current setting. Settings were kept as is and titrated as needed. The patient started on empiric antibiotics. ID consulted. Urine culture grew Klebsiella pneumoniae, carbapenem resistant. Blood cultures were negative. Stool for C. difficile was negative. Sputum culture revealed gram-negative bacilli. Antibiotics optimized based on culture. MDR Klebsiella was sensitive to tigecycline, on which the patient was discharged for additional eight days. Seizure precaution maintained. No seizure activity, while in the hospital. Keppra and Dilantin continued. Dilantin level was slightly low, but considering low, albumin was stable. Strict aspiration precaution maintained. Started slowly G-tube feeding and increased to goal. Able to tolerate. No emesis. Venous Duplex bilateral lower extremity was negative. SCD provided. The patient received one liter of normal saline in the emergency department. Electrolytes were stable after replacement. Hemoglobin and hematocrit was closely monitored. No need for transfusion. Goal to keep hemoglobin above 7. GI prophylaxis provided. Leukocytosis resolved. Electrolytes stable. ID cleared for discharge on eight days of tigecycline. DISCHARGE DIAGNOSES: 1. Possible sepsis. 2. Complicated multidrug-resistant Klebsiella urinary tract infection. 3. 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 4. Acute on chronic respiratory failure. 5. Ventilator-dependent respiratory failure/tracheostomy. 6. Anoxic encephalopathy. 7. Anemia. 8. Electrolyte imbalance (hyponatremia and hypokalemia). 9. Dysphagia, gastrostomy tube. 10. Seizure disorder. 11. Morbid obesity. DISCHARGE MEDICATIONS: See medication reconciliation list. DISCHARGE INSTRUCTIONS: The patient discharged to alf facility. FOLLOWUP: Follow up with medical doctor and aircraft pneudraulic systems mechanic at the facility. Savi Rodriguez M.D. I have been assigned to dictate discharge summary on this account and I was not involved in the patient's management. Libby jimenezpatty N.PCarlo BASS: Promise JOB#: [id number] CC:
== END 2017-04-24 19:29 | DRG 871 ==
LOC: EDBD 13:56 → EMR 15:10 → EDBEDREQ 15:30 → 2W 16:00 → EDBEDREQ 18:25 → 2W 19:00
PROC: 5A1945Z Respiratory Ventilation, 24-96 Consecutive Hours (ICD-10-PCS; principal; 2017-04-21)
DX: A41.9 Sepsis, unspecified organism (principal); J96.20 Acute and chronic respiratory failure, unspecified whether with hypoxia or hypercapnia; G93.1 Anoxic brain damage, not elsewhere classified; R40.3 Persistent vegetative state; Z43.0 Encounter for attention to tracheostomy; N39.0 Urinary tract infection, site not specified; Z43.1 Encounter for attention to gastrostomy; E87.1 Hypo-osmolality and hyponatremia; Z68.41 Body mass index [BMI] 40.0-44.9, adult; B96.1 Klebsiella pneumoniae [K. pneumoniae] as the cause of diseases classified elsewhere; Z16.24 Resistance to multiple antibiotics; D64.9 Anemia, unspecified; G40.909 Epilepsy, unspecified, not intractable, without status epilepticus; E66.01 Morbid (severe) obesity due to excess calories; E87.6 Hypokalemia; R13.10 Dysphagia, unspecified; Z85.3 Personal history of malignant neoplasm of breast; R11.10 Vomiting, unspecified
CPT/HCPCS: 36415; 36600; 71010; 76700; 80048; 80053; 80069; 80185; 80202; 81003; 82550; 82553; 82803; 83605; 83735; 83880; 84484; 85007; 85025; 86850; 86900; 86901; 87040; 87070; 87086; 87181; 87205; 87324; 93005; 93970; 94002; 94003; 94664

== ENCOUNTER 2017-10-21 12:33 | Inpatient (IN) | payer OTHER, MEDICAID ==
[~2017-10-21] VITALS: Ht 160 cm; Wt 81.6 kg
[~2017-10-21 12:33] MED LIST changes: +HEPARIN SO5000 UNIT2 SUBQ; +TIGECYCLINE50 MG IV
[2017-10-21 13:00] VITALS: BP 113/61
[2017-10-21 13:42] LABS: APPEARANCE,URINE SLIGHTLY CLOUDY; BILIRUBIN, URINE NEGATIVE (NEGATIVE); GLUCOSE, URINE (UA) NEGATIVE (NEGATIVE); KETONES,URINE 1+ (NEGATIVE); LEUKOCYTE ESTERASE ,URINE 3+ (NEGATIVE); NITRITE,URINE POSITIVE (NEGATIVE); PH,URINE 7 (4.5-8.0); PROTEIN,URINE 2+ (NEGATIVE); UROBILINOGEN,URINE NORMAL MG/DL (0.0-1.0)
[2017-10-21 13:53] LABS: COLOR,URINE YELLOW
[2017-10-21 14:00] VITALS: BP 138/73
[2017-10-21] MEDS ORDERED: ALBUTEROL SULF8.5 GM INH (14:36)
[2017-10-21] MEDS ORDERED: DILANTIN50 MG ORAL (14:36)
[2017-10-21] MEDS ORDERED: FLEET ENEMA133 ML RECTAL (14:38)
[2017-10-21] MEDS ORDERED: UTI-STAT L3875 MG/31 GT (14:39)
[2017-10-21] MEDS ORDERED: cefTRIAXone 1 GM in NS 55 ML IVPB ONE (14:45)
[2017-10-21 14:46] LABS: BASOPHILS % (AUTO) 0.7 % (0.0-2.0); EOSINOPHILS % (AUTO) 2.3 % (0.0-3.0); HEMATOCRIT 37.6 % (37.0-47.0); HEMOGLOBIN 12.6 G/DL (12.0-16.0); LYMPHOCYTES % (AUTO) 11.1 % (20.0-45.0); MEAN CORPUSCULAR VOLUME 96 FL (80-99); MONOCYTES % (AUTO) 6.3 % (1.0-10.0); NEUTROPHILS % (AUTO) 79.6 % (45.0-75.0); PLATELET COUNT 196 K/UL (150-450); RED BLOOD COUNT 3.93 M/UL (4.20-5.40); RED CELL DISTRIBUTION WIDTH 16.1 % (11.6-14.8); WHITE BLOOD COUNT 11.6 K/UL (4.8-10.8)
[2017-10-21 15:00] VITALS: BP 95/45
[2017-10-21 15:11] LABS: ANION GAP 10 mmol/L (5-15); BLOOD UREA NITROGEN 13 mg/dL (7-18); CALCIUM 9.3 MG/DL (8.5-10.1); CARBON DIOXIDE 28 MMOL/L (21-32); CHLORIDE 99 MMOL/L (98-107); CREATININE 0.4 MG/DL (0.55-1.30); POTASSIUM 3.2 MMOL/L (3.5-5.1); SODIUM 137 MMOL/L (136-145)
[2017-10-21 15:24] LABS: ALANINE AMINOTRANSFERASE 31 U/L (12-78); ALBUMIN 2.8 G/DL (3.4-5.0); ALBUMIN/GLOBULIN RATIO 0.6 (1.0-2.7); ALKALINE PHOSPHATASE 369 U/L (46-116); ASPARTATE AMINO TRANSFERASE 33 U/L (15-37); BILIRUBIN,TOTAL 0.5 MG/DL (0.2-1.0); CKMB < 0.5 NG/ML (0.0-3.6); CREATINE KINASE 34 U/L (26-308)
--- NOTE | 2017-10-21 15:24 | Emergency Room Report ---
History of Present Illness General Chief Complaint: Fever Source: Medical Record Present Illness HPI 77-year-old female presents ED for evaluation. Patient noted to have fever a group home last night. Afebrile here. Patient is on ventilator with trach. Has G-tube. Upon arrival patient showing no signs of distress. No fevers or chills. No cough. No chest pain. No other aggravating relieving factors. No other associated symptoms Allergies: Coded Allergies: PEANUT (Verified Allergy, Unknown, 09/22/16) Patient History Past Medical History: COPD, CVA/TIA, other - Gtube Past Surgical History: other - trach/gtube Pertinent Family History: none Social History: Denies: smoking, alcohol use, drug use Now: No Immunizations: UTD Reviewed Nursing Documentation: PMH: Agreed, PSxH: Agreed Nursing Documentation-PMH Past Medical History: No History, Except For Hx Hypertension: Yes Hx COPD: Yes Hx Diabetes: Yes - Hypothyroid Hx Cancer: Yes - Breast (unspecified) Hx Gastrointestinal Problems: Yes - G-tube Hx Neurological Problems: Yes Hx Cerebrovascular Accident: Yes Hx Seizures: Yes Hx Paralysis: Yes Hx Peripheral Neuropathy: Yes Hx Memory Loss: Yes Hx Concentration Difficulty: Yes Hx Speech Problem: Yes Hx Aphasia: Yes Hx Dysphasia: Yes Hx Weakness: Yes Review of Systems All Other Systems: negative except mentioned in HPI Physical Exam Vital Signs Date Time Temp Pulse Resp B/P (MAP) Pulse Ox O2 Delivery O2 Flow Rate FiO2 10/21/17 12:28 97.5 70 16 110/50 95 Mechanical Ventilator 40 97.5 Sp02 EP Interpretation: reviewed, normal General Appearance: no apparent distress, alert, GCS 15, non-toxic, obese Head: normocephalic Eyes: bilateral eye normal inspection, bilateral eye PERRL ENT: normal ENT inspection Neck: normal inspection Respiratory: crackles Cardiovascular #1: regular rate, rhythm, no edema Gastrointestinal: normal bowel sounds, non tender, soft, non-distended, no guarding, no rebound Rectal: deferred Genitourinary: no CVA tenderness Musculoskeletal: normal inspection Neurologic: alert, oriented x3, responsive, speech normal Psychiatric: normal inspection Skin: normal inspection Lymphatic: normal inspection Medical Decision Making Diagnostic Impression: Primary Impression: Chronic respiratory failure Qualified Codes: J96.10 - Chronic respiratory failure, unspecified whether with hypoxia or hypercapnia Additional Impressions: CHF (congestive heart failure) Qualified Codes: I50.9 - Heart failure, unspecified UTI (urinary tract infection) Qualified Codes: N39.0 - Urinary tract infection, site not specified Fever Qualified Codes: R50.9 - Fever, unspecified ER Course Hospital Course 77-year-old female presents ED with fever x1 day. Trach/vent patient Differential diagnoses include: Pneumonia, UTI, sepsis, dehydration, [place]/ unstable angina Clinical course Patient placed on stretcher. On alumni relations officer with stable vitals are ED course. After initial history and physical, I ordered labs, IV fluids, EKG, chest x-ray, blood cultures, UA. Labs - electrolytes ok, no leukocytosis, troponins negative, UA grossly positive for UTI, lactate ok EKG - NSR, no acute ischemic changes inteprreted by me CXR - interstitial congestion, cardiomegaly, CHF Abx given. Case discussed with Dr Brewer (covering for Dr Rodriguez) and they agreed to admit patient to their service for further care and support I feel this is a highly complex case requiring extensive working including EKG/ Rhythm strip, Xray/CT/US, Blood/urine lab work, repeat exams while in ED, and administration of strong opiates/narcotics for pain control, admission to hospital or close patient follow up. Diagnosis - chronic respiratory failure, CHF, UTI, fever Patient admitted to [facility] in serious condition Labs Test 10/21/17 13:10 2 14:33 Urine Color Yellow Urine Appearance Slightly cloudy Urine pH 7 (4.5-8.0) Urine Specific [place] 1.010 (1.005-1.035) Urine Protein 2+ (NEGATIVE) Urine Glucose (UA) Negative (NEGATIVE) Urine Ketones 1+ (NEGATIVE) Urine Occult Blood 2+ (NEGATIVE) Urine Nitrite Positive (NEGATIVE) Urine Bilirubin Negative (NEGATIVE) Urine Urobilinogen Normal MG/DL (0.0-1.0) Urine Leukocyte Esterase 3+ (NEGATIVE) Urine RBC 2-4 /HPF (0 - 2) Urine WBC 40-60 /HPF (0 - 2) Urine Squamous Epithelial Cells Few /LPF (NONE/OCC) Urine Bacteria Moderate /HPF (NONE) White Blood Count 11.6 K/UL (4.8-10.8) Red Blood Count 3.93 M/UL (4.20-5.40) Hemoglobin 12.6 G/DL (12.0-16.0) Hematocrit 37.6 % (37.0-47.0) Mean Corpuscular Volume 96 FL (80-99) Mean Corpuscular Hemoglobin 32.0 PG (27.0-31.0) Mean Corpuscular Hemoglobin Concent 33.4 G/DL (32.0-36.0) Red Cell Distribution Width 16.1 % (11.6-14.8) Platelet Count 196 K/UL (150-450) Mean Platelet Volume 10.2 FL (6.5-10.1) Neutrophils (%) (Auto) 79.6 % (45.0-75.0) Lymphocytes (%) (Auto) 11.1 % (20.0-45.0) Monocytes (%) (Auto) 6.3 % (1.0-10.0) Eosinophils (%) (Auto) 2.3 % (0.0-3.0) Basophils (%) (Auto) 0.7 % (0.0-2.0) Sodium Level 137 MMOL/L (136-145) Potassium Level 3.2 MMOL/L (3.5-5.1) Chloride Level 99 MMOL/L (98-107) Carbon Dioxide Level 28 MMOL/L (21-32) Anion Gap 10 mmol/L (5-15) Blood Urea Nitrogen 13 mg/dL (7-18) Creatinine 0.4 MG/DL (0.55-1.30) Estimat Glomerular Filtration Rate mL/min (>60) Glucose Level 110 MG/DL (74-106) Lactic Acid Level 0.80 mmol/L (0.66-2.22) Calcium Level 9.3 MG/DL (8.5-10.1) Total Bilirubin 0.5 MG/DL (0.2-1.0) Aspartate Amino Transf (AST/SGOT) 33 U/L (15-37) Alanine Aminotransferase (ALT/SGPT) 31 U/L (12-78) Alkaline Phosphatase 369 U/L (46-116) Total Creatine Kinase 34 U/L (26-308) Creatine Kinase MB < 0.5 NG/ML (0.0-3.6) Creatine Kinase MB Relative Index 1.4 Troponin I 0.000 ng/mL (0.000-0.056) Pro-B-Type Natriuretic Peptide 158 pg/mL (0-125) Total Protein 7.8 G/DL (6.4-8.2) Albumin 2.8 G/DL (3.4-5.0) Globulin 5.0 g/dL Albumin/Globulin Ratio 0.6 (1.0-2.7) EKG Diagnostic Results Rate: normal Rhythm: NSR ST Segments: no acute changes ASA given to the pt in ED: No Rhythm Strip Diag. Results EP Interpretation: yes Rhythm: NSR, no PVC's, no ectopy Chest X-Ray Diagnostic Results Chest X-Ray Diagnostic Results : Chest X-Ray Ordered: Yes # of Views/Limited/Complete: 1 View Indication: Shortness of Breath EP Interpretation: Yes Interpretation: no pneumothorax, other - patchy bilateral congestion Impression: Other - CHF Last Vital Signs Date Time Temp Pulse Resp B/P (MAP) Pulse Ox O2 Delivery O2 Flow Rate FiO2 10/21/17 13:00 97.9 84 20 113/61 100 Mechanical Ventilator 40 97.9 Status: improved Disposition: ADMITTED INPATIENT Condition: Serious Referrals: ANGELA RODRIGUEZ (PCP) NEFTALI ENG M.D. Oct 21, 2017 15:24
[2017-10-21 16:00] VITALS: BP 100/56
[2017-10-21] MEDS ORDERED: Albuterol/Ipratropium 3ml neb HHN PRN (16:00)
[2017-10-21] MEDS ORDERED: Acetaminophen 650mg/20.3ml GT PRN ×2 (16:00)
--- NOTE | 2017-10-21 16:04 | History and Physical ---
History of Present Illness General Date patient seen: Oct 21, 2017 Time patient seen: 16:20 Reason for Hospitalization: Sepsis Present Illness HPI 77y/o female with pmh of chronic respiratory failure s/p tracheostomy w/ ventilator dependence, dysphagia s/p PEG, CVA, HTN, hypothyroidism, anoxic encephalopathy, seizure d/o who presents with fever. Pt found to have fever to 101.5 at SNF. No reports of n/v/d/c, chest pain, SOB, abd pain. Pt is incontinent of urine and stool. Pt is able to respond by voicing some words and shaking head yes/no. In ER, pt with leukocytosis to 11.5K. U/A w/ concern for UTI. She was given IVFs , ceftriaxone and levaquin. Allergies: Coded Allergies: PEANUT (Verified Allergy, Unknown, 09/22/16) Medication History Scheduled Aspirin* (Aspir 81*), 325 MG GT DAILY, (Reported) Bisacodyl* (Dulcolax*), 10 MG RECTAL PRN, (Reported) Cran/Vitc/Mannose/Inulin/Brom (Uti-Stat Liquid), 30 ML GT TWICE A DAY, (Reported ) Cran/Vitc/Mannose/Inulin/Brom (Uti-Stat Liquid), 3,875 MG GT DAILY, (Reported) Enoxaparin* (Lovenox*), 40 MG SUBQ DAILY, (Reported) Famotidine (Famotidine), 20 MG GT TWICE A DAY, (Reported) Ferrous Sulfate* (Ferrous Sulfate*), 7.5 ML GT DAILY, (Reported) Heparin Sod (Porcine) (Heparin Sodium*), 5,000 UNITS SUBQ EVERY 12 HOURS, ( Reported) Levetiracetam* (Levetiracetam*), 1,500 MG GT DAILY, (Reported) Levothyroxine Sodium* (Synthroid*), 25 MCG GT DAILY, (Reported) Meropenem-0.9% Sodium Chloride (Meropenem-0.9% NaCl 1 Gram/50), 1 GM IV Q8HR Multivitamin With Minerals (Multivitamins With Minerals*), 15 ML GT DAILY, ( Reported) Phenytoin (Dilantin), 200 MG ORAL THREE TIMES A DAY, (Reported) Tigecycline (Tigecycline), 50 MG IV EVERY 12 HOURS Scheduled PRN Acetaminophen (Acetaminophen), 650 MG GT Q6H PRN for Prn Headache/Temp > 101, ( Reported) Albuterol Sulfate* (Albuterol Sulfate Mdi*), 2 PUFF INH Q2HR PRN for Shortness of Breath, (Reported) Ipratropium/Albuterol Sulfate (DuoNeb 0.5-3(2.5)mg/3ml), 3 ML HHN Q6HR PRN for Shortness of Breath, (Reported) Lorazepam* (Ativan*), 1 MG GT EVERY 6 HOURS PRN for Agitation, (Reported) Magnesium Hydroxide (Milk of Magnesia), 30 ML ORAL DAILY PRN for Constipation, ( Reported) Na Phos,M-B/Na Phos,Di-Ba* (Fleet Enema*), 133 ML RECTAL DAILY PRN for Constipation, (Reported) Patient History History Provided By: Patient, Family Member, Medical Record, EMS Healthcare decision maker Resuscitation status Advanced Directive on File Past Medical/Surgical History Past Medical/Surgical History: (1) Chronic respiratory failure (2) Status post tracheostomy (3) Ventilator dependence (4) H/O: CVA (cerebrovascular accident) (5) Dysphagia s/p PEG (6) Anoxic encephalopathy (7) Hypothyroidism (8) Seizure disorder (9) HTN (hypertension) Social History Social History: (1) lives in [facility] Review of Systems Constitutional: Reports: fever, malaise, weakness Eye: Reports: no symptoms ENT: Reports: no symptoms Respiratory: Reports: no symptoms Cardiovascular: Reports: no symptoms Gastrointestinal: Reports: no symptoms Genitourinary: Reports: no symptoms Musculoskeletal: Reports: no symptoms Skin: Reports: no symptoms Psychiatric: Reports: no symptoms Neurological: Reports: no symptoms Endocrine: Reports: no symptoms Hematologic/Lymphatic: Reports: no symptoms Physical Exam Physical Exam Narrative General: alert, cooperative, no distress, appears stated age Head: normocephalic, without obvious abnormality, atraumatic Eyes: conjunctivae/corneas clear. PERRL, EOM's intact Throat: lips, mucosa, and tongue normal. MMM Neck: supple, symmetrical, trachea midline, and no JVD, +trach c/d/i Lungs: clear to auscultation bilaterally Heart: regular rate and rhythm, S1, S2 normal, no murmur, click, rub or gallop Abdomen: soft, non-tender, non-distended, bowel sounds normal; +PEG c/d/i Extremities: extremities normal, atraumatic, no cyanosis or edema Pulses: 2+ and symmetric Skin: skin color, texture, turgor normal Last 24 Hour Vital Signs Date Time Temp Pulse Resp B/P (MAP) Pulse Ox O2 Delivery O2 Flow Rate FiO2 10/21/17 15:21 81 20 40 10/21/17 15:00 86 17 95/45 100 Mechanical Ventilator 40 10/21/17 14:00 110 17 138/73 98 Mechanical Ventilator 40 10/21/17 13:00 97.9 84 20 113/61 100 Mechanical Ventilator 40 97.9 10/21/17 12:35 40 10/21/17 12:30 82 17 40 10/21/17 12:28 97.5 70 16 110/50 95 Mechanical Ventilator 40 97.5 Laboratory Tests Test 10/21/17 13:10 10/21/17 14:33 Urine Color Yellow Urine Appearance Slightly cloudy Urine pH 7 (4.5-8.0) Urine Specific [place] 1.010 (1.005-1.035) Urine Protein 2+ (NEGATIVE) H Urine Glucose (UA) Negative (NEGATIVE) Urine Ketones 1+ (NEGATIVE) H Urine Occult Blood 2+ (NEGATIVE) H Urine Nitrite Positive (NEGATIVE) H Urine Bilirubin Negative (NEGATIVE) Urine Urobilinogen Normal MG/DL (0.0-1.0) Urine Leukocyte Esterase 3+ (NEGATIVE) H Urine RBC 2-4 /HPF (0 - 2) H Urine WBC 40-60 /HPF (0 - 2) H Urine Squamous Epithelial Cells Few /LPF (NONE/OCC) Urine Bacteria Moderate /HPF (NONE) H White Blood Count 11.6 K/UL (4.8-10.8) H Red Blood Count 3.93 M/UL (4.20-5.40) L Hemoglobin 12.6 G/DL (12.0-16.0) Hematocrit 37.6 % (37.0-47.0) Mean Corpuscular Volume 96 FL (80-99) Mean Corpuscular Hemoglobin 32.0 PG (27.0-31.0) H Mean Corpuscular Hemoglobin Concent 33.4 G/DL (32.0-36.0) Red Cell Distribution Width 16.1 % (11.6-14.8) H Platelet Count 196 K/UL (150-450) Mean Platelet Volume 10.2 FL (6.5-10.1) H Neutrophils (%) (Auto) 79.6 % (45.0-75.0) H Lymphocytes (%) (Auto) 11.1 % (20.0-45.0) L Monocytes (%) (Auto) 6.3 % (1.0-10.0) Eosinophils (%) (Auto) 2.3 % (0.0-3.0) Basophils (%) (Auto) 0.7 % (0.0-2.0) Sodium Level 137 MMOL/L (136-145) Potassium Level 3.2 MMOL/L (3.5-5.1) L Chloride Level 99 MMOL/L (98-107) Carbon Dioxide Level 28 MMOL/L (21-32) Anion Gap 10 mmol/L (5-15) Blood Urea Nitrogen 13 mg/dL (7-18) Creatinine 0.4 MG/DL (0.55-1.30) L Estimat Glomerular Filtration Rate mL/min (>60) Glucose Level 110 MG/DL (74-106) H Lactic Acid Level 0.80 mmol/L (0.66-2.22) Calcium Level 9.3 MG/DL (8.5-10.1) Total Bilirubin 0.5 MG/DL (0.2-1.0) Aspartate Amino Transf (AST/SGOT) 33 U/L (15-37) Alanine Aminotransferase (ALT/SGPT) 31 U/L (12-78) Alkaline Phosphatase 369 U/L (46-116) H Total Creatine Kinase 34 U/L (26-308) Creatine Kinase MB < 0.5 NG/ML (0.0-3.6) Creatine Kinase MB Relative Index 1.4 Troponin I 0.000 ng/mL (0.000-0.056) Pro-B-Type Natriuretic Peptide 158 pg/mL (0-125) H Total Protein 7.8 G/DL (6.4-8.2) Albumin 2.8 G/DL (3.4-5.0) L Globulin 5.0 g/dL Albumin/Globulin Ratio 0.6 (1.0-2.7) L Height (Feet): 5 Height (Inches): 3.00 Weight (Pounds): 180 Medications Current Medications Medications (Trade) Dose Ordered Sig/Boubacar Route PRN Reason Start Time Stop Time Status Last Admin Dose Admin Acetaminophen (Tylenol) 650 mg Q4H PRN GT pain, fever 10/21/17 16:00 11/20/17 15:59 UNV Acetaminophen (Tylenol) 650 mg Q6H PRN GT Prn Headache/Temp > 101 10/21/17 16:00 11/20/17 15:59 UNV Albuterol/ Ipratropium (Albuterol/ Ipratropium) 3 ml Q4H PRN HHN Shortness of Breath 10/21/17 16:00 10/26/17 15:59 Aspirin (Ecotrin) 325 mg DAILY ORAL 10/22/17 09:00 11/21/17 08:59 UNV Dextrose (Dextrose 50%) STAT PRN IV Hypoglycemia 10/21/17 16:00 11/20/17 15:59 Docusate Sodium (Colace) 100 mg EVERY 12 HOURS ORAL 10/21/17 21:00 11/20/17 20:59 Famotidine (Pepcid) 20 mg TWICE A DAY GT 10/21/17 18:00 11/20/17 17:59 UNV Heparin Sodium (Porcine) (Heparin 5000 units/ml) 5,000 units EVERY 12 HOURS SUBQ 10/21/17 21:00 11/20/17 20:59 Levetiracetam (Keppra) 1,500 mg DAILY GT 10/22/17 09:00 11/21/17 08:59 UNV Levofloxacin 150 ml @ 100 mls/hr NOW ONCE IVPB 10/21/17 15:30 10/21/17 16:59 10/21/17 15:58 Levothyroxine Sodium (Synthroid) 25 mcg DAILY GT 10/22/17 09:00 11/21/17 08:59 UNV Ondansetron HCl (Zofran) 4 mg Q6H PRN IVP Nausea & Vomiting 10/21/17 16:00 11/20/17 15:59 Phenytoin (Dilantin) 200 mg THREE TIMES A DAY GT 10/21/17 18:00 11/20/17 17:59 UNV Assessment/Plan Problem List: (1) Sepsis ICD Codes: A41.9 - Sepsis, unspecified organism SNOMED: 44470577 (2) UTI (urinary tract infection) ICD Codes: N39.0 - Urinary tract infection, site not specified SNOMED: 25036461 Qualifiers: Qualified Codes: N39.0 - Urinary tract infection, site not specified (3) Chronic respiratory failure ICD Codes: J96.10 - Chronic respiratory failure, unspecified whether with hypoxia or hypercapnia SNOMED: 03604050 Qualifiers: Qualified Codes: J96.10 - Chronic respiratory failure, unspecified whether with hypoxia or hypercapnia (4) Functional paraplegia (5) Status post tracheostomy ICD Codes: Z93.0 - Tracheostomy status SNOMED: 07749327, 553238811 (6) Ventilator dependence ICD Codes: Z99.11 - Dependence on respirator [ventilator] status SNOMED: 309093481 (7) H/O: CVA (cerebrovascular accident) ICD Codes: Z86.73 - Personal history of transient ischemic attack (TIA), and cerebral infarction without residual deficits SNOMED: 594135191 (8) Dysphagia s/p PEG (9) Anoxic encephalopathy ICD Codes: G93.1 - Anoxic brain damage, not elsewhere classified SNOMED: 629467237 (10) Hypothyroidism ICD Codes: E03.9 - Hypothyroidism, unspecified SNOMED: 46583838 (11) Seizure disorder ICD Codes: G40.909 - Epilepsy, unspecified, not intractable, without status epilepticus SNOMED: 814089334 (12) HTN (hypertension) ICD Codes: I10 - Essential (primary) hypertension SNOMED: 24774423 Status: stable Assessment/Plan Admit to [facility] as pt is vent dependent ID consulted Empiric cefepime for now (10/21-) F/u cultures Trend CBC Newman placed in ED on 10/21/17, cont for now to drain urine given UTI Pulm consulted Cont on vent and wean as tolerated Cont SNF meds Pain control, bowel regimen Supportive care DVT ppx w/ SCDs, HSQ PPI FULL CODE D/w pt/family, RN, SW/CM, pulm and ID regarding mgmt and dispo Lee Roy M.D. Oct 21, 2017 16:04
[2017-10-21 20:00] VITALS: BP 155/83
[2017-10-21] MEDS: Docusate 100mg/10ml Liq GT SCH (20:30)
[2017-10-21] MEDS: Heparin 5000 units/ml inj SUBQ SCH (20:32)
[2017-10-21] MEDS ORDERED: Docusate 100mg cap ORAL SCH (21:00)
[2017-10-21] MEDS: NS w/KCl 20mEq 1,000 ML IV SCH (21:19)
[2017-10-21] MEDS: Phenytoin 50mg tab GT SCH (21:33)
[2017-10-22] VITALS: BP 121/60
[2017-10-22 04:00] VITALS: BP 150/83
[2017-10-22 05:02] LABS: BASOPHILS % (AUTO) 0.9 % (0.0-2.0); EOSINOPHILS % (AUTO) 2.3 % (0.0-3.0); HEMOGLOBIN 11.5 G/DL (12.0-16.0); LYMPHOCYTES % (AUTO) 14.2 % (20.0-45.0); MEAN CORPUSCULAR VOLUME 97 FL (80-99); MONOCYTES % (AUTO) 7.1 % (1.0-10.0); NEUTROPHILS % (AUTO) 75.4 % (45.0-75.0); PLATELET COUNT 188 K/UL (150-450); RED CELL DISTRIBUTION WIDTH 16.6 % (11.6-14.8); WHITE BLOOD COUNT 7.5 K/UL (4.8-10.8)
[2017-10-22 05:24] LABS: ANION GAP 5 mmol/L (5-15); BLOOD UREA NITROGEN 11 mg/dL (7-18); CALCIUM 9.3 MG/DL (8.5-10.1); CARBON DIOXIDE 30 MMOL/L (21-32); CHLORIDE 101 MMOL/L (98-107); CHOLESTEROL 179 MG/DL (< 200); CREATININE 0.5 MG/DL (0.55-1.30); HDL CHOLESTEROL 67 MG/DL (40-60); POTASSIUM 3.9 MMOL/L (3.5-5.1); SODIUM 136 MMOL/L (136-145); TRIGLYCERIDES 97 MG/DL (30-150)
[2017-10-22] MEDS: Phenytoin 50mg tab GT SCH ×3 (07:03→22:41)
[2017-10-22 08:00] VITALS: BP 123/56
[2017-10-22] MEDS ORDERED: Aspirin EC 325mg tab ORAL SCH (09:00)
[2017-10-22] MEDS ORDERED: Levothyroxine 25mcg tab GT SCH (09:00)
[2017-10-22] MEDS ORDERED: Cefepime HCl 1 GM in D5W 55 ML IVPB SCH (09:00)
[2017-10-22] MEDS: Docusate 100mg/10ml Liq GT SCH ×2 (09:27→17:43)
[2017-10-22] MEDS: levETIRAcetam 500mg/5ml Liquid GT SCH ×2 (09:28→17:44)
[2017-10-22] MEDS: Heparin 5000 units/ml inj SUBQ SCH ×2 (09:29→20:33)
[2017-10-22] MEDS: Cefepime HCl 1 GM in NS 55 ML IVPB SCH ×2 (09:30→20:31)
[2017-10-22] MEDS: NS w/KCl 20mEq 1,000 ML IV SCH ×2 (09:54→11:52)
--- NOTE | 2017-10-22 10:34 | Consultation ---
History of Present Illness General Date patient seen: Oct 22, 2017 Time patient seen: 09:00 Chief Complaint: Fever Referring physician: dr Brewer Reason for Consultation: vent and resp status managemet Present Illness HPI 77y/old female with PMH of VDRF/tarch, CVA, COPD, HTN, dysphagia, G tube, anoxic encephalopathy, seizure disorder, hypothyroidism presented to ED for evaluation for fever from the group home facility . Upon arrival afebrile + leucocytosis, lactic acid WNL UA with gross evidence of UTI CXR with evidence of interstitial congestion pro BNP stable ECG with SR, troponin negative K-3.2, otehrwise stable lytes stable renal parameters, HH patient was admitted for further management Allergies: Coded Allergies: PEANUT (Verified Allergy, Unknown, 09/22/16) Medication History Scheduled Aspirin* (Aspir 81*), 325 MG GT DAILY, (Reported) Bisacodyl* (Dulcolax*), 10 MG RECTAL PRN, (Reported) Cran/Vitc/Mannose/Inulin/Brom (Uti-Stat Liquid), 30 ML GT TWICE A DAY, (Reported ) Cran/Vitc/Mannose/Inulin/Brom (Uti-Stat Liquid), 3,875 MG GT DAILY, (Reported) Enoxaparin* (Lovenox*), 40 MG SUBQ DAILY, (Reported) Famotidine (Famotidine), 20 MG GT TWICE A DAY, (Reported) Ferrous Sulfate* (Ferrous Sulfate*), 7.5 ML GT DAILY, (Reported) Heparin Sod (Porcine) (Heparin Sodium*), 5,000 UNITS SUBQ EVERY 12 HOURS, ( Reported) Levetiracetam* (Levetiracetam*), 1,500 MG GT DAILY, (Reported) Levothyroxine Sodium* (Synthroid*), 25 MCG GT DAILY, (Reported) Meropenem-0.9% Sodium Chloride (Meropenem-0.9% NaCl 1 Gram/50), 1 GM IV Q8HR Multivitamin With Minerals (Multivitamins With Minerals*), 15 ML GT DAILY, ( Reported) Phenytoin (Dilantin), 200 MG ORAL THREE TIMES A DAY, (Reported) Tigecycline (Tigecycline), 50 MG IV EVERY 12 HOURS Scheduled PRN Acetaminophen (Acetaminophen), 650 MG GT Q6H PRN for Prn Headache/Temp > 101, ( Reported) Albuterol Sulfate* (Albuterol Sulfate Mdi*), 2 PUFF INH Q2HR PRN for Shortness of Breath, (Reported) Ipratropium/Albuterol Sulfate (DuoNeb 0.5-3(2.5)mg/3ml), 3 ML HHN Q6HR PRN for Shortness of Breath, (Reported) Lorazepam* (Ativan*), 1 MG GT EVERY 6 HOURS PRN for Agitation, (Reported) Magnesium Hydroxide (Milk of Magnesia), 30 ML ORAL DAILY PRN for Constipation, ( Reported) Na Phos,M-B/Na Phos,Di-Ba* (Fleet Enema*), 133 ML RECTAL DAILY PRN for Constipation, (Reported) Patient History Healthcare decision maker Dash Sanchez Resuscitation status Full Code Advanced Directive on File Past Medical/Surgical History Past Medical/Surgical History: (1) Feeding by G-tube (2) Vegetative state (3) Seizure (4) Anoxic brain damage syndrome (5) CHF (congestive heart failure) (6) Chronic respiratory failure (7) Acute and chronic respiratory failure Review of Systems ROS Narrative unable to obtain due to ALOC Physical Exam General Appearance: no apparent distress, other - obese, bedridden, lethargic AA female on vent AC 600-12-40% peep5 Lines, tubes and drains: peripheral HEENT: normocephalic, anicteric Neck: trach - Portex#8, secretions small yellow, thin Respiratory/Chest: lungs clear, no respiratory distress Cardiovascular/Chest: normal rate, regular rhythm - SR on tele Abdomen: normal bowel sounds, non tender, soft - obese, feeding tube - G tube Skin Exam: warm/dry Neurologic: abnormal gait - bedridden , other - not responsive, spastic LE Musculoskeletal: atrophy - BLE Last 24 Hour Vital Signs Date Time Temp Pulse Resp B/P (MAP) Pulse Ox O2 Delivery O2 Flow Rate FiO2 10/22/17 08:49 76 15 40 10/22/17 07:47 95 10/22/17 06:43 81 23 40 10/22/17 04:56 82 20 40 10/22/17 04:00 98.4 99 20 150/83 100 Mechanical Ventilator 40 10/22/17 04:00 82 10/22/17 04:00 40 10/22/17 03:07 84 20 40 10/22/17 02:08 84 20 40 10/22/17 00:18 84 20 40 10/22/17 00:00 85 10/22/17 00:00 97.9 85 20 121/60 100 Mechanical Ventilator 40 10/22/17 00:00 40 10/21/17 21:31 84 20 40 10/21/17 20:38 84 20 40 10/21/17 20:00 98.4 99 20 155/83 99 Mechanical Ventilator 40 10/21/17 20:00 40 10/21/17 20:00 89 10/21/17 17:26 84 20 40 10/21/17 16:10 86 18 100/56 98 Mechanical Ventilator 40 10/21/17 16:00 86 18 100/56 100 Mechanical Ventilator 40 10/21/17 15:21 81 20 40 10/21/17 15:00 86 17 95/45 100 Mechanical Ventilator 40 10/21/17 14:00 110 17 138/73 98 Mechanical Ventilator 40 10/21/17 13:00 97.9 84 20 113/61 100 Mechanical Ventilator 40 97.9 10/21/17 12:35 40 10/21/17 12:30 82 17 40 10/21/17 12:28 97.5 70 16 110/50 95 Mechanical Ventilator 40 97.5 Intake and Output 10/21/17 10/22/17 19:00 07:00 Intake Total 1055 ml 886.25 ml Output Total 100 ml 500 ml Balance 955 ml 386.25 ml Intake IV Total 1055 ml 726.25 ml Tube Feeding 160 ml Output Urine Total 100 ml 500 ml Laboratory Tests Test 10/21/17 13:10 10/21/17 14:33 10/22/17 04:00 10/22/17 04:15 Urine Color Yellow Urine Appearance Slightly cloudy Urine pH 7 (4.5-8.0) Urine Specific [place] 1.010 (1.005-1.035) Urine Protein 2+ (NEGATIVE) H Urine Glucose (UA) Negative (NEGATIVE) Urine Ketones 1+ (NEGATIVE) H Urine Occult Blood 2+ (NEGATIVE) H Urine Nitrite Positive (NEGATIVE) H Urine Bilirubin Negative (NEGATIVE) Urine Urobilinogen Normal MG/DL (0.0-1.0) Urine Leukocyte Esterase 3+ (NEGATIVE) H Urine RBC 2-4 /HPF (0 - 2) H Urine WBC 40-60 /HPF (0 - 2) H Urine Squamous Epithelial Cells Few /LPF (NONE/OCC) Urine Bacteria Moderate /HPF (NONE) H White Blood Count 11.6 K/UL (4.8-10.8) H 7.5 K/UL (4.8-10.8) Red Blood Count 3.93 M/UL (4.20-5.40) L 3.50 M/UL (4.20-5.40) L Hemoglobin 12.6 G/DL (12.0-16.0) 11.5 G/DL (12.0-16.0) L Hematocrit 37.6 % (37.0-47.0) 34.0 % (37.0-47.0) L Mean Corpuscular Volume 96 FL (80-99) 97 FL (80-99) Mean Corpuscular Hemoglobin 32.0 PG (27.0-31.0) H 32.8 PG (27.0-31.0) H Mean Corpuscular Hemoglobin Concent 33.4 G/DL (32.0-36.0) 33.7 G/DL (32.0-36.0) Red Cell Distribution Width 16.1 % (11.6-14.8) H 16.6 % (11.6-14.8) H Platelet Count 196 K/UL (150-450) 188 K/UL (150-450) Mean Platelet Volume 10.2 FL (6.5-10.1) H 9.7 FL (6.5-10.1) Neutrophils (%) (Auto) 79.6 % (45.0-75.0) H 75.4 % (45.0-75.0) H Lymphocytes (%) (Auto) 11.1 % (20.0-45.0) L 14.2 % (20.0-45.0) L Monocytes (%) (Auto) 6.3 % (1.0-10.0) 7.1 % (1.0-10.0) Eosinophils (%) (Auto) 2.3 % (0.0-3.0) 2.3 % (0.0-3.0) Basophils (%) (Auto) 0.7 % (0.0-2.0) 0.9 % (0.0-2.0) Sodium Level 137 MMOL/L (136-145) 136 MMOL/L (136-145) Potassium Level 3.2 MMOL/L (3.5-5.1) L 3.9 MMOL/L (3.5-5.1) Chloride Level 99 MMOL/L (98-107) 101 MMOL/L (98-107) Carbon Dioxide Level 28 MMOL/L (21-32) 30 MMOL/L (21-32) Anion Gap 10 mmol/L (5-15) 5 mmol/L (5-15) Blood Urea Nitrogen 13 mg/dL (7-18) 11 mg/dL (7-18) Creatinine 0.4 MG/DL (0.55-1.30) L 0.5 MG/DL (0.55-1.30) L Estimat Glomerular Filtration Rate mL/min (>60) mL/min (>60) Glucose Level 110 MG/DL (74-106) H 100 MG/DL (74-106) Lactic Acid Level 0.80 mmol/L (0.66-2.22) Calcium Level 9.3 MG/DL (8.5-10.1) 9.3 MG/DL (8.5-10.1) Total Bilirubin 0.5 MG/DL (0.2-1.0) Aspartate Amino Transf (AST/SGOT) 33 U/L (15-37) Alanine Aminotransferase (ALT/SGPT) 31 U/L (12-78) Alkaline Phosphatase 369 U/L (46-116) H Total Creatine Kinase 34 U/L (26-308) Creatine Kinase MB < 0.5 NG/ML (0.0-3.6) Creatine Kinase MB Relative Index 1.4 Troponin I 0.000 ng/mL (0.000-0.056) Pro-B-Type Natriuretic Peptide 158 pg/mL (0-125) H Total Protein 7.8 G/DL (6.4-8.2) Albumin 2.8 G/DL (3.4-5.0) L Globulin 5.0 g/dL Albumin/Globulin Ratio 0.6 (1.0-2.7) L Arterial Blood pH 7.480 (7.350-7.450) Arterial Blood Partial Pressure CO2 35.9 mmHg (35.0-45.0) Arterial Blood Partial Pressure O2 116.5 mmHg (75.0-100.0) H Arterial Blood HCO3 26.7 mmol/L (22.0-26.0) H Arterial Blood Oxygen Saturation 98.2 % (92.0-98.0) H Arterial Blood Base Excess 3.4 Best Test Positive Magnesium Level 1.8 MG/DL (1.8-2.4) Triglycerides Level 97 MG/DL (30-150) Cholesterol Level 179 MG/DL (< 200) LDL Cholesterol 98 mg/dL (<100) HDL Cholesterol 67 MG/DL (40-60) H Cholesterol/HDL Ratio 2.7 (3.3-4.4) L Thyroid Stimulating Hormone (TSH) 7.416 uiU/mL (0.358-3.740) Microbiology Date/Time Source Procedure Growth Status 10/21/17 15:30 Stool Stool Culture - Preliminary NORMAL FECAL J CARLOS. Resulted 10/21/17 15:30 Stool Clostridium difficile Toxin Assay - Final Resulted Height (Feet): 5 Height (Inches): 3.00 Weight (Pounds): 180 Medications Current Medications Medications (Trade) Dose Ordered Sig/Boubacar Route PRN Reason Start Time Stop Time Status Last Admin Dose Admin Acetaminophen (Tylenol) 650 mg Q4H PRN GT pain, fever 10/21/17 16:00 11/20/17 15:59 Acetaminophen (Tylenol) 650 mg Q6H PRN GT Prn Headache/Temp > 101 10/21/17 16:00 11/20/17 15:59 Albuterol/ Ipratropium (Albuterol/ Ipratropium) 3 ml Q4H PRN HHN Shortness of Breath 10/21/17 16:00 10/26/17 15:59 Aspirin (ASA) 325 mg DAILY GT 10/22/17 09:00 11/21/17 08:59 10/22/17 09:28 Cefepime HCl 1 gm/ Sodium Chloride 55 ml @ 110 mls/hr EVERY 12 HOURS IVPB 10/22/17 09:00 10/29/17 23:59 10/22/17 09:30 Dextrose (Dextrose 50%) STAT PRN IV Hypoglycemia 10/21/17 16:00 11/20/17 15:59 Docusate Sodium (Colace) 100 mg TWICE A DAY GT 10/21/17 21:00 11/20/17 20:59 10/22/17 09:27 Famotidine (Pepcid) 20 mg TWICE A DAY GT 10/21/17 18:00 11/20/17 17:59 10/22/17 09:28 Heparin Sodium (Porcine) (Heparin 5000 units/ml) 5,000 units EVERY 12 HOURS SUBQ 10/21/17 21:00 11/20/17 20:59 10/22/17 09:29 Levetiracetam (Keppra) 1,500 mg BID GT 10/22/17 09:00 11/21/17 08:59 10/22/17 09:28 Levothyroxine Sodium (Synthroid) 25 mcg DAILY GT 10/22/17 09:00 11/21/17 08:59 10/22/17 09:28 Ondansetron HCl (Zofran) 4 mg Q6H PRN IVP Nausea & Vomiting 10/21/17 16:00 11/20/17 15:59 Phenytoin (Dilantin) 200 mg Q8HR GT 10/21/17 22:00 11/20/17 21:59 10/22/17 07:03 Sodium Chloride 1,000 ml @ 75 mls/hr [id number] IV 10/21/17 20:30 11/20/17 20:29 10/22/17 09:54 Assessment/Plan Assessment/Plan ASSESSMENT UTI VDRF/trach status COPD dysphagia, G tube Hx of CVA seizure disorder anoxic encephalopathy HTN Hypokalemia functional quadriplegia hx of breast ca obesity hypothyroidism obesity PLAN OF CARE [facility] vent/trach care, baseline ABG ordered and done, stable on current settings, keep as is and titrate Fio2, TV, AC prn pulmonary toilet Fup with CXR today aspiration precautions, GT feeding, monitor tolerance, site care decrease IVF rate; initial CXR with evidence of interstitial congestion abx, fup with urine cx, stool C dif and stool cx negative, DVT GI prophylaxis K replaced, stable afterwards, stable mg monitor lytes, correct as needed, avoid nephrotoxic seizure precautions, continue Keppra and Dilantin , monitor Dilantin level- per PMD Pain management Bowel regimen skin care check TSH- elevated, increase dose of levothyroxine, check TSH in 4 wks on ASA,check lipid panel stable BP management, Clonidine prn case discussed and evaluated by supervising physician Dennis (Eli),Libby FENG Oct 22, 2017 10:34
--- NOTE | 2017-10-22 11:38 | Diagnostic Imaging Report ---
Indication: Dyspnea Comparison: 04/24/2017 A single view chest radiograph was obtained. Findings: Pulmonary vascularity is slightly improved. There is some interstitial opacification present. Heart is mildly enlarged. Tracheostomy again noted. IMPRESSION: Improved interstitial edema. There may be a background of the chronic interstitial disease.
[2017-10-22 12:00] VITALS: BP 110/55
[2017-10-22 16:00] VITALS: BP 115/63
[2017-10-22 20:00] VITALS: BP 128/61
--- NOTE | 2017-10-22 20:37 | General Progress Note ---
Assessment/Plan Problem List: (1) Sepsis ICD Codes: A41.9 - Sepsis, unspecified organism SNOMED: 28016404 (2) UTI (urinary tract infection) ICD Codes: N39.0 - Urinary tract infection, site not specified SNOMED: 12982587 Qualifiers: Qualified Codes: N39.0 - Urinary tract infection, site not specified (3) Chronic respiratory failure ICD Codes: J96.10 - Chronic respiratory failure, unspecified whether with hypoxia or hypercapnia SNOMED: 70664246 Qualifiers: Qualified Codes: J96.10 - Chronic respiratory failure, unspecified whether with hypoxia or hypercapnia (4) Functional paraplegia (5) Status post tracheostomy ICD Codes: Z93.0 - Tracheostomy status SNOMED: 93186284, 072811195 (6) Ventilator dependence ICD Codes: Z99.11 - Dependence on respirator [ventilator] status SNOMED: 973947089 (7) H/O: CVA (cerebrovascular accident) ICD Codes: Z86.73 - Personal history of transient ischemic attack (TIA), and cerebral infarction without residual deficits SNOMED: 321962078 (8) Dysphagia s/p PEG (9) Anoxic encephalopathy ICD Codes: G93.1 - Anoxic brain damage, not elsewhere classified SNOMED: 274429888 (10) Hypothyroidism ICD Codes: E03.9 - Hypothyroidism, unspecified SNOMED: 98117358 (11) Seizure disorder ICD Codes: G40.909 - Epilepsy, unspecified, not intractable, without status epilepticus SNOMED: 999065039 (12) HTN (hypertension) ICD Codes: I10 - Essential (primary) hypertension SNOMED: 45703765 Status: stable Assessment/Plan ID consulted Empiric cefepime for now (10/21-) F/u cultures Trend CBC Newman placed in ED on 10/21/17, cont for now to drain urine given UTI Pulm consulted Cont on vent and wean as tolerated Cont SNF meds Pain control, bowel regimen Supportive care DVT ppx w/ SCDs, HSQ PPI Per CM, insurance requesting to transfer to contracted facility Dispo likely transfer to contracted facility vs d/c back to SNF in 1-2 days pending cultures results FULL CODE D/w pt/family, RN, SW/CM, pulm and ID regarding mgmt and dispo Subjective Date patient seen: Oct 22, 2017 Time patient seen: 12:00 ROS Limited/Unobtainable: Yes Constitutional: Reports: fever, malaise, weakness Cardiovascular: Reports: no symptoms Respiratory: Reports: no symptoms Gastrointestinal/Abdominal: Reports: no symptoms Genitourinary: Reports: no symptoms Neurologic/Psychiatric: Reports: no symptoms Endocrine: Reports: no symptoms Hematologic/Lymphatic: Reports: no symptoms Allergies: Coded Allergies: PEANUT (Verified Allergy, Unknown, 09/22/16) All Systems: reviewed and negative except above Subjective No acute o/n events Afebrile, VSS Urine cx showing >100K GNR so far Cont on cefepime Pt awake, alert. Denies pain, n/v, SOB Objective Last 24 Hour Vital Signs Date Time Temp Pulse Resp B/P (MAP) Pulse Ox O2 Delivery O2 Flow Rate FiO2 10/22/17 20:00 40 10/22/17 20:00 97.3 90 16 128/61 99 Mechanical Ventilator 40 10/22/17 19:45 82 19 40 10/22/17 17:03 86 14 40 10/22/17 16:00 98.7 90 16 115/63 96 Mechanical Ventilator 40 10/22/17 16:00 89 10/22/17 16:00 40 10/22/17 14:35 82 19 40 10/22/17 12:39 75 15 40 10/22/17 12:00 40 10/22/17 12:00 99.3 82 17 110/55 98 Mechanical Ventilator 40 10/22/17 11:54 81 10/22/17 10:37 75 18 40 10/22/17 08:49 76 15 40 10/22/17 08:00 40 10/22/17 08:00 98.7 86 14 123/56 98 Mechanical Ventilator 40 10/22/17 07:47 95 10/22/17 06:43 81 23 40 10/22/17 04:56 82 20 40 10/22/17 04:00 98.4 99 20 150/83 100 Mechanical Ventilator 40 10/22/17 04:00 82 10/22/17 04:00 40 10/22/17 03:07 84 20 40 10/22/17 02:08 84 20 40 10/22/17 00:18 84 20 40 10/22/17 00:00 85 10/22/17 00:00 97.9 85 20 121/60 100 Mechanical Ventilator 40 10/22/17 00:00 40 10/21/17 21:31 84 20 40 10/21/17 20:38 84 20 40 Intake and Output 10/21/17 10/22/17 19:00 07:00 Intake Total 1055 ml 886.25 ml Output Total 100 ml 500 ml Balance 955 ml 386.25 ml IV Total 1055 ml 726.25 ml Tube Feeding 160 ml Output Urine Total 100 ml 500 ml Laboratory Tests 10/22/17 04:00: Arterial Blood pH 7.480H, Arterial Blood Partial Pressure CO2 35.9, Arterial Blood Partial Pressure O2 116.5H, Arterial Blood HCO3 26.7H, Arterial Blood Oxygen Saturation 98.2H, Arterial Blood Base Excess 3.4, Best Test Positive 10/22/17 04:15: White Blood Count 7.5, Red Blood Count 3.50L, Hemoglobin 11.5L, Hematocrit 34.0L , Mean Corpuscular Volume 97, Mean Corpuscular Hemoglobin 32.8H, Mean Corpuscular Hemoglobin Concent 33.7, Red Cell Distribution Width 16.6H, Platelet Count 188, Mean Platelet Volume 9.7, Neutrophils (%) (Auto) 75.4H, Lymphocytes (%) (Auto) 14.2L, Monocytes (%) (Auto) 7.1, Eosinophils (%) (Auto) 2.3, Basophils (%) (Auto) 0.9, Sodium Level 136, Potassium Level 3.9, Chloride Level 101, Carbon Dioxide Level 30, Anion Gap 5, Blood Urea Nitrogen 11, Creatinine 0.5L, Estimat Glomerular Filtration Rate , Glucose Level 100, Calcium Level 9.3, Magnesium Level 1.8, Triglycerides Level 97, Cholesterol Level 179, LDL Cholesterol 98, HDL Cholesterol 67H, Cholesterol/HDL Ratio 2.7L, Thyroid Stimulating Hormone (TSH) 7.416H Height (Feet): 5 Height (Inches): 3.00 Weight (Pounds): 180 Objective General: alert, cooperative, no distress, appears stated age Head: normocephalic, without obvious abnormality, atraumatic Eyes: conjunctivae/corneas clear. PERRL, EOM's intact Throat: lips, mucosa, and tongue normal. MMM Neck: supple, symmetrical, trachea midline, and no JVD, +trach c/d/i Lungs: clear to auscultation bilaterally Heart: regular rate and rhythm, S1, S2 normal, no murmur, click, rub or gallop Abdomen: soft, non-tender, non-distended, bowel sounds normal; +PEG c/d/i Extremities: extremities normal, atraumatic, no cyanosis or edema Pulses: 2+ and symmetric Skin: skin color, texture, turgor normal Lee Roy M.D. Oct 22, 2017 20:37
[2017-10-23] VITALS: BP 109/60
[2017-10-23 04:00] VITALS: BP 101/55
[2017-10-23] MEDS: Phenytoin 50mg tab GT SCH (06:06)
[2017-10-23] MEDS: NS w/KCl 20mEq 1,000 ML IV SCH (06:55)
[2017-10-23 08:00] VITALS: BP 106/49
[2017-10-23] MEDS: Docusate 100mg/10ml Liq GT SCH ×2 (09:00→17:37)
[2017-10-23] MEDS: levETIRAcetam 500mg/5ml Liquid GT SCH ×2 (09:28→17:37)
[2017-10-23] MEDS: Cefepime HCl 1 GM in NS 55 ML IVPB SCH ×2 (09:29→20:53)
[2017-10-23] MEDS: Heparin 5000 units/ml inj SUBQ SCH ×2 (09:39→20:57)
--- NOTE | 2017-10-23 10:39 | Pulmonology Progress Note ---
Assessment/Plan Assessment/Plan ASSESSMENT UTI with Proteus VDRF/trach status COPD dysphagia, G tube Hx of CVA seizure disorder anoxic encephalopathy HTN Hypokalemia functional quadriplegia hx of breast ca obesity hypothyroidism obesity PLAN OF CARE DIANA vent/trach care, baseline ABG stable on current settings, keep as is and titrate Fio2, TV, AC prn pulmonary toilet Fup with CXR aspiration precautions, GT feeding, monitor tolerance, site care decrease IVF rate; initial CXR with evidence of interstitial congestion abx, urine cx + Proteus, stool C dif and stool cx negative, DVT GI prophylaxis K replaced, stable afterwards, stable Mg monitor lytes, correct as needed, avoid nephrotoxic seizure precautions, continue Keppra and Dilantin , monitor Dilantin level- per PMD Pain management Bowel regimen skin care elevated TSH- ; dose of levothyroxine increased, check TSH in 4 wks on ASA, lipid panel stable BP management, Clonidine prn case discussed and evaluated by supervising physician Subjective Allergies: Coded Allergies: PEANUT (Verified Allergy, Unknown, 09/22/16) Subjective leukocytosis resolved, afebrile no signs of resp distress on current vent settings Objective Last 24 Hour Vital Signs Date Time Temp Pulse Resp B/P (MAP) Pulse Ox O2 Delivery O2 Flow Rate FiO2 10/23/17 09:14 79 22 40 10/23/17 08:00 74 10/23/17 08:00 40 10/23/17 08:00 98.4 71 16 106/49 99 Mechanical Ventilator 40 10/23/17 07:24 68 21 40 10/23/17 05:04 73 17 40 10/23/17 04:00 40 10/23/17 04:00 97.0 74 16 101/55 98 Mechanical Ventilator 40 10/23/17 04:00 83 10/23/17 03:27 79 20 40 10/23/17 00:50 79 17 40 10/23/17 00:00 40 10/23/17 00:00 82 10/23/17 00:00 97.0 85 16 109/60 99 Mechanical Ventilator 40 10/22/17 23:39 78 17 40 10/22/17 21:30 83 20 40 10/22/17 20:00 40 10/22/17 20:00 78 10/22/17 20:00 97.3 90 16 128/61 99 Mechanical Ventilator 40 10/22/17 19:45 82 19 40 10/22/17 17:03 86 14 40 10/22/17 16:00 98.7 90 16 115/63 96 Mechanical Ventilator 40 10/22/17 16:00 89 10/22/17 16:00 40 18 14:35 82 19 40 10/22/17 12:39 75 15 40 10/22/17 12:00 40 10/22/17 12:00 99.3 82 17 110/55 98 Mechanical Ventilator 40 10/22/17 11:54 81 10/22/17 10:37 75 18 40 Intake and Output 10/22/17 10/23/17 19:00 07:00 Intake Total 1145 ml 845 ml Output Total 501 ml 600 ml Balance 644 ml 245 ml Intake Free Water 300 ml IV Total 275 ml 605 ml Tube Feeding 330 ml 240 ml Other 240 ml Output Urine Total 500 ml 600 ml Stool Total 1 ml # Bowel Movements 1 Objective General Appearance: no apparent distress, obese, bedridden, awake, not responsive to verbal stimuli AA female on vent AC 600-12-40% peep 5 Lines, tubes and drains: peripheral HEENT: normocephalic, anicteric Neck: trach - Portex#8, secretions small yellow, thin Respiratory/Chest: lungs clear, no respiratory distress Cardiovascular/Chest: normal rate, regular rhythm - SR on tele Abdomen: normal bowel sounds, non tender, soft - obese, feeding tube - G tube Skin Exam: warm/dry Neurologic: abnormal gait - bedridden , other - not responsive, spastic LE Musculoskeletal: atrophy - BLE Microbiology Date/Time Source Procedure Growth Status 10/21/17 14:30 Blood Blood Culture - Preliminary NO GROWTH AFTER 24 HOURS Resulted 10/21/17 14:15 Blood Blood Culture - Preliminary NO GROWTH AFTER 24 HOURS Resulted 10/21/17 15:30 Stool Stool Culture - Preliminary NORMAL FECAL J CARLOS. Resulted 10/21/17 15:30 Stool Clostridium difficile Toxin Assay - Final Resulted 10/21/17 13:10 Urine,Clean Catch Urine Culture - Final Proteus Mirabilis Complete Current Medications Medications (Trade) Dose Ordered Sig/Boubacar Route PRN Reason Start Time Stop Time Status Last Admin Dose Admin Acetaminophen (Tylenol) 650 mg Q4H PRN GT pain, fever 10/21/17 16:00 11/20/17 15:59 Acetaminophen (Tylenol) 650 mg Q6H PRN GT Prn Headache/Temp > 101 10/21/17 16:00 11/20/17 15:59 Albuterol/ Ipratropium (Albuterol/ Ipratropium) 3 ml Q4H PRN HHN Shortness of Breath 10/21/17 16:00 10/26/17 15:59 Aspirin (ASA) 325 mg DAILY GT 10/22/17 09:00 11/21/17 08:59 10/23/17 09:28 Cefepime HCl 1 gm/ Sodium Chloride 55 ml @ 110 mls/hr EVERY 12 HOURS IVPB 10/22/17 09:00 10/29/17 23:59 10/23/17 09:29 Clonidine HCl (Catapres Tab) 0.1 mg EVERY 6 HOURS PRN ORAL sbp above 160 10/22/17 10:30 11/21/17 10:29 Dextrose (Dextrose 50%) STAT PRN IV Hypoglycemia 10/21/17 16:00 11/20/17 15:59 Docusate Sodium (Colace) 100 mg TWICE A DAY GT 10/21/17 21:00 11/20/17 20:59 10/22/17 17:43 Famotidine (Pepcid) 20 mg TWICE A DAY GT 10/21/17 18:00 11/20/17 17:59 10/23/17 09:27 Heparin Sodium (Porcine) (Heparin 5000 units/ml) 5,000 units EVERY 12 HOURS SUBQ 10/21/17 21:00 11/20/17 20:59 10/23/17 09:39 Levetiracetam (Keppra) 1,500 mg BID GT 10/22/17 09:00 11/21/17 08:59 10/23/17 09:28 Levothyroxine Sodium (Synthroid) 50 mcg DAILY@0630 GT 10/23/17 06:30 11/22/17 06:29 10/23/17 06:09 Ondansetron HCl (Zofran) 4 mg Q6H PRN IVP Nausea & Vomiting 10/21/17 16:00 11/20/17 15:59 Phenytoin (Dilantin) 200 mg Q8HR GT 10/21/17 22:00 11/20/17 21:59 10/23/17 06:06 Sodium Chloride 1,000 ml @ 50 mls/hr Q20H IV 10/22/17 10:35 11/21/17 10:34 10/23/17 06:55 [facility] Oct 23, 2017 10:38
[2017-10-23 12:00] VITALS: BP 100/49
--- NOTE | 2017-10-23 12:40 | Consultation ---
Consult Note Consult Note ID DIC # [id number] Assessment/Plan ASSESSMENT: 76 y/o trach/peg/VDRF admitted 04/21/17 for fevers, ruled out for C diff, and although perhaps her transient fever and leukocytosis were secondary to t a resp mucus plug that cleared, we'll also r/o cholecystitis and treat this MDR Klebsiella UTI (non catheter associated) : --MDR Klebsiella UTI, complicated. sensitive to tigecycline. D#2 IV vanc/zosyn h/o Recurrent ESBL(+) E.coli UTI - h/o qR-PSA, E.coli - (s/p 04/10/17 IV meropenem D#7) She has a history of growth of quinolone resistant Pseudomonas aeruginosa and E. coli. --h/o KPC-K.pneumoniae bacteremia 12/06 ?urinary vs biliary source vs PICC CLABSI - repeat BCx cleared 10/11 SP Rx w/o recurrence. blood cx from 04/03/17 are negative. 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 Blood cultures cleared on 10/11/2016, the patient is status post treatment rule out recurrence. Surveillance blood culture is pending drawn 04/21/17. --History of possible aspiration pneumonia and pneumonitis, rule out recurrence , PCXR shows some chronic interstitial pattern but no new infiltrate or effusion. She has a history of growth of Acinetobacter lwoffii and Pseudomonas aeruginosa and Proteus mirabilis. --Sepsis without lactic acidosis. --Leukocytosis, improved, afebrile. --Emesis, elevated alkaline phosphatase, and h/o cholelithiasis (seen on Spring 2016 RUQ u/s). r/o acute biliary source of fevers, although labs do not suggest ascending cholangitis must r/o cholecystitis. --Hypotension, resolved. --Chronic anoxic encephalopathy. --Acute on chronic ventilator-dependent respiratory failure, status post tracheostomy and percutaneous endoscopic gastrostomy. We will increase FiO2 requirements. --Seizure disorder. --History of breast cancer. --Morbid obesity. 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 --hypokalemia s/p emesis --No antibiotic allergies. --Full Code. PLAN: - No gram positives identified, with blood cx from 04/21 ngtd. D/c vanomcyin now. - Only infection identified in complicated UTI, and although her leukocytosis has resolved on zosyn, her urine now is confirmed growing a MDR Klebsiella that is sensitive only to colistin and tigecycline. -->D/C zosyn. Start tigecycline 50mg IV q12hr D#0 of 10. forego the loading dose given her clinical stability and resolution of leukocytosis. - Follow up blood cx. - f/u RUQ u/s to r/o cholecystitis as less likely cause of leukocytosis. - Monitor CBC and temperatures. - Monitor BMP. - Monitor chest x-ray. - Ventilator support, tracheostomy care, and aspiration precautions. - Seizure precautions. HUNG GARCIA M.D. Oct 23, 2017 12:40
[2017-10-23] MEDS: Phenytoin Susp 100mg/4ml GT SCH ×2 (14:55→20:54)
[2017-10-23 16:00] VITALS: BP 114/57
--- NOTE | 2017-10-23 16:45 | Consultation ---
DATE OF CONSULTATION: 10/23/2017 INFECTIOUS DISEASE CONSULTATION CONSULTING PHYSICIAN: Delmer Madera M.D. REFERRING PHYSICIAN: Savi Rodriguez M.D. REASON FOR CONSULTATION: Evaluation of the patient for sepsis and fever and antibiotic management. HISTORY OF PRESENT ILLNESS: The patient is a 77-year-old female with multiple medical problems, who was sent from alf to this medical center for fever. The patient was admitted with the impression of sepsis, UTI, and possible pneumonia. An Infectious Disease consultation has been requested for further evaluation of the patient and antibiotic management. PAST MEDICAL HISTORY: 1. History of multiple drug-resistant Klebsiella UTI. 2. History of anoxic encephalopathy. 3. Status post vent and PEG placement. 4. Respiratory failure. 5. Seizure disorder. 6. Breast cancer. 7. Morbid obesity. 8. CHF. 9. Hypertension. 10. Renal stone. 11. Diabetes. 12. Anemia. MEDICATIONS: IV cefepime. ALLERGIES: Peanuts. FAMILY HISTORY: Unavailable. REVIEW OF SYSTEMS: Unobtainable. The patient lives in a alf. PHYSICAL EXAMINATION: VITAL SIGNS: Temperature 98.3, pulse 56, respiratory rate 18, and blood pressure 100/49. HEENT: No pale conjunctivae. No icterus. NECK: No lymphadenopathy. Trach in place. CHEST: Coarse breathing sounds. HEART: S1, S2. ABDOMEN: Obese. PEG tube in place. EXTREMITIES: No cellulitis. NEUROLOGIC: Nonverbal. LABORATORY DATA: White blood cells 7, hemoglobin 11, and platelets 188,000. UA shows 40 to 60 white blood cells and 2 to 4 red blood cells. BUN 11 and creatinine 0.5. AST 33, ALT 31, and alkaline phosphatase 69. Stool culture pending. Negative for C. diff. Chest x-ray, interstitial edema improving. ASSESSMENT: The patient is a 77-year-old female with, 1. Status post leukocytosis. 2. Fever prior to admission. 3. Pyuria/urinary tract infection. Urine culture is growing Proteus mirabilis. 4. ? diarrhea, Clostridium difficile negative, stool culture pending. 5. Doubt pneumonia. PLAN: 1. We will continue the patient on cefepime day #2. 2. Monitor CBC. 3. Monitor BMP. 4. Monitor cultures (stool, blood, urine). 5. Monitor chest x-ray. 6. Continue vent support. 7. Based on the patient's clinical course and labs, we will do further recommendations. Thank you, Dr. Rodriguez, for allowing me to participate in the care of this patient. I will follow the patient with you during this hospitalization. Delmer Madera M.D. DR: DANIEL JOB#: [id number] CC:
[2017-10-23 20:00] VITALS: BP 105/42
--- NOTE | 2017-10-23 20:03 | Cardiology Progress Note ---
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 avoid neg chrontoropic agent full note to follow no need for pacing [id number] Objective Last 24 Hour Vital Signs Date Time Temp Pulse Resp B/P (MAP) Pulse Ox O2 Delivery O2 Flow Rate FiO2 10/23/17 18:39 65 14 40 10/23/17 18:37 65 14 40 10/23/17 17:29 65 14 40 10/23/17 16:00 97.8 68 17 114/57 99 Mechanical Ventilator 40 10/23/17 15:38 58 10/23/17 15:38 40 10/23/17 15:23 72 22 40 10/23/17 13:23 70 22 40 10/23/17 12:00 98.3 71 17 100/49 99 Mechanical Ventilator 40 10/23/17 12:00 68 10/23/17 12:00 40 10/23/17 11:17 71 24 40 10/23/17 09:14 79 22 40 10/23/17 08:00 74 10/23/17 08:00 40 10/23/17 08:00 98.4 71 16 106/49 99 Mechanical Ventilator 40 10/23/17 07:24 68 21 40 10/23/17 05:04 73 17 40 10/23/17 04:00 40 10/23/17 04:00 97.0 74 16 101/55 98 Mechanical Ventilator 40 10/23/17 04:00 83 10/23/17 03:27 79 20 40 10/23/17 00:50 79 17 40 10/23/17 00:00 40 10/23/17 00:00 82 10/23/17 00:00 97.0 85 16 109/60 99 Mechanical Ventilator 40 10/22/17 23:39 78 17 40 10/22/17 21:30 83 20 40 Intake and Output 10/22/17 10/23/17 19:00 07:00 Intake Total 1145 ml 845 ml Output Total 501 ml 600 ml Balance 644 ml 245 ml Intake Free Water 300 ml IV Total 275 ml 605 ml Tube Feeding 330 ml 240 ml Other 240 ml Output Urine Total 500 ml 600 ml Stool Total 1 ml # Bowel Movements 1 Microbiology Date/Time Source Procedure Growth Status 10/21/17 14:30 Blood Blood Culture - Preliminary NO GROWTH AFTER 24 HOURS Resulted 10/21/17 14:15 Blood Blood Culture - Preliminary NO GROWTH AFTER 24 HOURS Resulted 10/21/17 15:30 Stool Stool Culture - Preliminary Gram Negative Bacillus 1 Resulted 10/21/17 15:30 Stool Clostridium difficile Toxin Assay - Final Resulted 10/21/17 13:10 Urine,Clean Catch Urine Culture - Final Proteus Mirabilis Complete MARCELL KING Oct 23, 2017 20:03
[2017-10-23] MEDS ORDERED: Phenytoin Susp 100mg/4ml GT SCH (22:00)
--- NOTE | 2017-10-23 22:49 | General Progress Note ---
Assessment/Plan Problem List: (1) Sepsis ICD Codes: A41.9 - Sepsis, unspecified organism SNOMED: 39665767 (2) UTI (urinary tract infection) ICD Codes: N39.0 - Urinary tract infection, site not specified SNOMED: 71127299 Qualifiers: Qualified Codes: N39.0 - Urinary tract infection, site not specified (3) Chronic respiratory failure ICD Codes: J96.10 - Chronic respiratory failure, unspecified whether with hypoxia or hypercapnia SNOMED: 87034812 Qualifiers: Qualified Codes: J96.10 - Chronic respiratory failure, unspecified whether with hypoxia or hypercapnia (4) Functional paraplegia (5) Status post tracheostomy ICD Codes: Z93.0 - Tracheostomy status SNOMED: 04689793, 027119580 (6) Ventilator dependence ICD Codes: Z99.11 - Dependence on respirator [ventilator] status SNOMED: 418676329 (7) H/O: CVA (cerebrovascular accident) ICD Codes: Z86.73 - Personal history of transient ischemic attack (TIA), and cerebral infarction without residual deficits SNOMED: 021724634 (8) Dysphagia s/p PEG (9) Anoxic encephalopathy ICD Codes: G93.1 - Anoxic brain damage, not elsewhere classified SNOMED: 068194963 (10) Hypothyroidism ICD Codes: E03.9 - Hypothyroidism, unspecified SNOMED: 53357716 (11) Seizure disorder ICD Codes: G40.909 - Epilepsy, unspecified, not intractable, without status epilepticus SNOMED: 351470684 (12) HTN (hypertension) ICD Codes: I10 - Essential (primary) hypertension SNOMED: 00324068 (13) Paroxysmal supraventricular tachycardia ICD Codes: I47.1 - Supraventricular tachycardia SNOMED: 22881481 (14) Bradycardia ICD Codes: R00.1 - Bradycardia, unspecified SNOMED: 61795718 (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, 2nd degree ICD Codes: I44.1 - Atrioventricular block, second degree SNOMED: 179570573 Status: stable Assessment/Plan ID consulted Empiric cefepime for now (10/21-) F/u cultures--urine cx shows >100K Proteus mirabilis, blood cultures NGTD Trend CBC Newman placed in ED on 10/21/17, cont for now to drain urine given UTI Pulm consulted Cont on vent and wean as tolerated Cardiology consulted given bradycardia and 2nd degree AV block type 1 Cont SNF meds Pain control, bowel regimen Supportive care DVT ppx w/ SCDs, HSQ PPI Per CM, insurance requesting to transfer to contracted facility DC pending ID rec's on abx Dispo likely transfer to contracted facility vs d/c back to SNF in 1-2 days pending cultures results FULL CODE D/w pt/family, RN, SW/CM, pulm and ID regarding mgmt and dispo Subjective Date patient seen: Oct 23, 2017 Time patient seen: 12:00 ROS Limited/Unobtainable: Yes Allergies: Coded Allergies: PEANUT (Verified Allergy, Unknown, 09/22/16) Subjective No acute o/n events Afebrile, VSS Urine cx showing >100K Proteus mirabilis Cont on cefepime per ID Tele shows episodes of intermittent bradycardia and 2nd degree AV block type 1 Pt awake, alert. Denies pain, n/v, SOB Objective Last 24 Hour Vital Signs Date Time Temp Pulse Resp B/P (MAP) Pulse Ox O2 Delivery O2 Flow Rate FiO2 10/23/17 21:11 65 14 40 10/23/17 18:39 65 14 40 10/23/17 18:37 65 14 40 10/23/17 17:29 65 14 40 10/23/17 16:00 97.8 68 17 114/57 99 Mechanical Ventilator 40 10/23/17 15:38 58 10/23/17 15:38 40 10/23/17 15:23 72 22 40 10/23/17 13:23 70 22 40 10/23/17 12:00 98.3 71 17 100/49 99 Mechanical Ventilator 40 10/23/17 12:00 68 10/23/17 12:00 40 10/23/17 11:17 71 24 40 10/23/17 09:14 79 22 40 10/23/17 08:00 74 10/23/17 08:00 40 10/23/17 08:00 98.4 71 16 106/49 99 Mechanical Ventilator 40 10/23/17 07:24 68 21 40 10/23/17 05:04 73 17 40 10/23/17 04:00 40 10/23/17 04:00 97.0 74 16 101/55 98 Mechanical Ventilator 40 10/23/17 04:00 83 10/23/17 03:27 79 20 40 10/23/17 00:50 79 17 40 10/23/17 00:00 40 10/23/17 00:00 82 10/23/17 00:00 97.0 85 16 109/60 99 Mechanical Ventilator 40 10/22/17 23:39 78 17 40 Intake and Output 10/22/17 10/23/17 19:00 07:00 Intake Total 1145 ml 845 ml Output Total 501 ml 600 ml Balance 644 ml 245 ml Intake Free Water 300 ml IV Total 275 ml 605 ml Tube Feeding 330 ml 240 ml Other 240 ml Output Urine Total 500 ml 600 ml Stool Total 1 ml # Bowel Movements 1 Height (Feet): 5 Height (Inches): 3.00 Weight (Pounds): 180 Objective General: alert, cooperative, no distress, appears stated age Head: normocephalic, without obvious abnormality, atraumatic Eyes: conjunctivae/corneas clear. PERRL, EOM's intact Throat: lips, mucosa, and tongue normal. MMM Neck: supple, symmetrical, trachea midline, and no JVD, +trach c/d/i Lungs: clear to auscultation bilaterally Heart: regular rate and rhythm, S1, S2 normal, no murmur, click, rub or gallop Abdomen: soft, non-tender, non-distended, bowel sounds normal; +PEG c/d/i Extremities: extremities normal, atraumatic, no cyanosis or edema Pulses: 2+ and symmetric Skin: skin color, texture, turgor normal Lee Roy M.D. Oct 23, 2017 22:49
[2017-10-24] VITALS: BP 119/55
[2017-10-24] MEDS: NS w/KCl 20mEq 1,000 ML IV SCH (03:07)
[2017-10-24 04:00] VITALS: BP 108/58
[2017-10-24] MEDS: Phenytoin Susp 100mg/4ml GT SCH ×2 (05:45→14:00)
[2017-10-24 08:00] VITALS: BP 112/54
[2017-10-24] MEDS: Heparin 5000 units/ml inj SUBQ SCH (08:03)
[2017-10-24] MEDS: Docusate 100mg/10ml Liq GT SCH ×2 (08:04→18:00)
[2017-10-24] MEDS: levETIRAcetam 500mg/5ml Liquid GT SCH ×2 (08:04→18:00)
[2017-10-24] MEDS: Cefepime HCl 1 GM in NS 55 ML IVPB SCH (08:06)
--- NOTE | 2017-10-24 09:44 | Diagnostic Imaging Report ---
Indication: Shortness of breath Technique: One view of the chest Comparison: 10/21/2017 Findings: Tracheostomy is again demonstrated. Bilateral predominantly basilar interstitial disease persists. There is associated central bronchial wall thickening. No new infiltrates. Heart size is upper limits of normal. Findings are unchanged Impression: Unchanged, over 3 days, findings as above. Stable bilateral primarily basilar interstitial disease may reflect acute edema, chronic interstitial fibrotic change, or combination of both
--- NOTE | 2017-10-24 10:30 | Infectious Diseases Prog Note ---
Assessment/Plan Assessment/Plan ASSESSMENT: The patient is a 77-year-old female with, leukocytosis., SP Fever . OFFICE RECEPTIONIST UTI UCx : Proteus Mirabilis. Pyuria ? diarrhea Clostridium difficile negative, stool culture pending. Doubt pneumonia Xray : Stable bilateral primarily basilar interstitial disease may reflect acute edema, chronic interstitial fibrotic History of multiple drug-resistant Klebsiella UTI Diarrhea Stool culture pending. C. diff. Neg History of anoxic encephalopathy. Status post vent and PEG placement. Respiratory failure. Seizure disorder. Breast cancer. Morbid obesity. CHF. Hypertension. Renal stone. Diabetes. Anemia. PLAN: continue the patient on cefepime day #3/ 7 Monitor CBC. Monitor BMP. Monitor cultures (stool, blood, urine). Monitor chest x-ray. Continue vent support. Subjective Allergies: Coded Allergies: PEANUT (Verified Allergy, Unknown, 09/22/16) Objective Vital Signs Last 24 Hour Vital Signs Date Time Temp Pulse Resp B/P (MAP) Pulse Ox O2 Delivery O2 Flow Rate FiO2 10/24/17 09:12 60 14 40 10/24/17 07:44 51 10/24/17 07:29 74 20 40 10/24/17 05:31 50 19 40 10/24/17 04:00 50 19 108/58 100 Mechanical Ventilator 40 10/24/17 04:00 40 10/24/17 04:00 48 10/24/17 03:42 72 14 40 10/24/17 02:17 65 14 40 10/24/17 00:00 40 10/24/17 00:00 47 19 119/55 Mechanical Ventilator 40 10/24/17 00:00 51 10/23/17 23:34 65 14 40 10/23/17 21:11 65 14 40 10/23/17 20:00 97.9 44 19 105/42 100 Mechanical Ventilator 40 10/23/17 20:00 40 10/23/17 20:00 46 10/23/17 18:39 65 14 40 10/23/17 18:37 65 14 40 10/23/17 17:29 65 14 40 10/23/17 16:00 97.8 68 17 114/57 99 Mechanical Ventilator 40 10/23/17 15:38 58 10/23/17 15:38 40 10/23/17 15:23 72 22 40 10/23/17 13:23 70 22 40 10/23/17 12:00 98.3 71 17 100/49 99 Mechanical Ventilator 40 10/23/17 12:00 68 10/23/17 12:00 40 10/23/17 11:17 71 24 40 Height (Feet): 5 Height (Inches): 3.00 Weight (Pounds): 180 Microbiology Date/Time Source Procedure Growth Status 10/21/17 14:30 Blood Blood Culture - Preliminary NO GROWTH AFTER 48 HOURS Resulted 10/21/17 14:15 Blood Blood Culture - Preliminary NO GROWTH AFTER 48 HOURS Resulted 10/21/17 22:00 Nasal Nares Left MRSA Culture - Final NO METHICILLIN RESISTANT STAPH AUREUS... Complete 10/21/17 15:30 Stool Stool Culture - Preliminary NO SALMONELLA,SHIGELLA,OR CAMPYLOBACT... Resulted 10/21/17 15:30 Stool Clostridium difficile Toxin Assay - Final Resulted 10/21/17 13:10 Urine,Clean Catch Urine Culture - Final Proteus Mirabilis Complete 10/21/17 22:00 Rectum VRE Culture - Final Enterococcus Faecalis - Vre Complete Current Medications Medications (Trade) Dose Ordered Sig/Boubacar Route PRN Reason Start Time Stop Time Status Last Admin Dose Admin Acetaminophen (Tylenol) 650 mg Q4H PRN GT pain, fever 10/21/17 16:00 11/20/17 15:59 Acetaminophen (Tylenol) 650 mg Q6H PRN GT Prn Headache/Temp > 101 10/21/17 16:00 11/20/17 15:59 Albuterol/ Ipratropium (Albuterol/ Ipratropium) 3 ml Q4H PRN HHN Shortness of Breath 10/21/17 16:00 10/26/17 15:59 Aspirin (ASA) 325 mg DAILY GT 10/22/17 09:00 11/21/17 08:59 10/24/17 08:04 Cefepime HCl 1 gm/ Sodium Chloride 55 ml @ 110 mls/hr EVERY 12 HOURS IVPB 10/22/17 09:00 10/29/17 23:59 10/24/17 08:06 Clonidine HCl (Catapres Tab) 0.1 mg EVERY 6 HOURS PRN ORAL sbp above 160 10/22/17 10:30 11/21/17 10:29 Dextrose (Dextrose 50%) STAT PRN IV Hypoglycemia 10/21/17 16:00 11/20/17 15:59 Docusate Sodium (Colace) 100 mg TWICE A DAY GT 10/21/17 21:00 11/20/17 20:59 10/24/17 08:04 Famotidine (Pepcid) 20 mg TWICE A DAY GT 10/21/17 18:00 11/20/17 17:59 10/24/17 08:04 Heparin Sodium (Porcine) (Heparin 5000 units/ml) 5,000 units EVERY 12 HOURS SUBQ 10/21/17 21:00 11/20/17 20:59 10/24/17 08:03 Levetiracetam (Keppra) 1,500 mg BID GT 10/22/17 09:00 11/21/17 08:59 10/24/17 08:04 Levothyroxine Sodium (Synthroid) 50 mcg DAILY@0630 GT 10/23/17 06:30 11/22/17 06:29 10/24/17 05:49 Ondansetron HCl (Zofran) 4 mg Q6H PRN IVP Nausea & Vomiting 10/21/17 16:00 11/20/17 15:59 Phenytoin (Dilantin) 200 mg Q8HR GT 10/23/17 15:00 11/22/17 14:59 10/24/17 05:45 Sodium Chloride 1,000 ml @ 50 mls/hr Q20H IV 10/22/17 10:35 11/21/17 10:34 10/24/17 03:07 HUNG GARCIA M.D. Oct 24, 2017 10:30
[2017-10-24 12:00] VITALS: BP 115/59
--- NOTE | 2017-10-24 12:19 | Cardiology Progress Note ---
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 asymptomatic without prolong puses htn obesity persistent veg state anoxic brain injury no sig pauses avoid neg chronotropic agent: no bb , dig no cardizem , verpamil or clonidine no need or candidate for advanced cardiac therapy at this time ok to dc back to snf form cardiac view o point Subjective ROS Limited/Unobtainable: Yes Objective Last 24 Hour Vital Signs Date Time Temp Pulse Resp B/P (MAP) Pulse Ox O2 Delivery O2 Flow Rate FiO2 10/24/17 10:52 54 16 40 10/24/17 09:12 60 14 40 10/24/17 08:00 40 10/24/17 08:00 98.1 62 16 112/54 100 Mechanical Ventilator 40 10/24/17 07:44 51 10/24/17 07:29 74 20 40 10/24/17 05:31 50 19 40 10/24/17 04:00 50 19 108/58 100 Mechanical Ventilator 40 10/24/17 04:00 40 10/24/17 04:00 48 10/24/17 03:42 72 14 40 10/24/17 02:17 65 14 40 10/24/17 00:00 40 10/24/17 00:00 47 19 119/55 Mechanical Ventilator 40 10/24/17 00:00 51 10/23/17 23:34 65 14 40 10/23/17 21:11 65 14 40 10/23/17 20:00 97.9 44 19 105/42 100 Mechanical Ventilator 40 10/23/17 20:00 40 10/23/17 20:00 46 10/23/17 18:39 65 14 40 10/23/17 18:37 65 14 40 10/23/17 17:29 65 14 40 10/23/17 16:00 97.8 68 17 114/57 99 Mechanical Ventilator 40 10/23/17 15:38 58 10/23/17 15:38 40 10/23/17 15:23 72 22 40 10/23/17 13:23 70 22 40 General Appearance: obese, on vent, patient on isolation, other - not [id number] or responsive Cardiovascular: normal rate Respiratory/Chest: rhonchi - bilaterally Abdomen: normal bowel sounds, non tender, soft Extremities: no swelling Intake and Output 10/23/17 10/24/17 18:59 06:59 Intake Total 975 ml 280 ml Output Total 450 ml 800 ml Balance 525 ml -520 ml Intake Free Water 100 ml 100 ml IV Total 755 ml Tube Feeding 120 ml 180 ml Output Urine Total 450 ml 800 ml # Bowel Movements 4 Microbiology Date/Time Source Procedure Growth Status 10/21/17 14:30 Blood Blood Culture - Preliminary NO GROWTH AFTER 48 HOURS Resulted 10/21/17 14:15 Blood Blood Culture - Preliminary NO GROWTH AFTER 48 HOURS Resulted 10/21/17 22:00 Nasal Nares Left MRSA Culture - Final NO METHICILLIN RESISTANT STAPH AUREUS... Complete 10/21/17 15:30 Stool Stool Culture - Preliminary NO SALMONELLA,SHIGELLA,OR CAMPYLOBACT... Resulted 10/21/17 15:30 Stool Clostridium difficile Toxin Assay - Final Resulted 10/21/17 13:10 Urine,Clean Catch Urine Culture - Final Proteus Mirabilis Complete 10/21/17 22:00 Rectum VRE Culture - Final Enterococcus Faecalis - Vre Complete MARCELL KING Oct 24, 2017 12:18
[2017-10-24] MEDS ORDERED: CEFTRIAXON1 GM/50 ML IV (13:14)
--- NOTE | 2017-10-24 13:47 | Pulmonology Progress Note ---
Assessment/Plan Assessment/Plan ASSESSMENT UTI with Proteus VDRF/trach status COPD dysphagia, G tube Hx of CVA seizure disorder anoxic encephalopathy HTN Hypokalemia functional quadriplegia hx of breast ca obesity hypothyroidism with elevated TSH obesity PLAN OF CARE DIANA vent/trach care, baseline ABG stable on current settings, keep as is and titrate Fio2, TV, AC prn pulmonary toilet CXR 10/24- reflects stable bilateral primarily basilar interstitial disease may reflect acute edema, chronic interstitial fibrotic change, or combination of both-likely chronic , stable resp status, pro BNP stable aspiration precautions, GT feeding, monitor tolerance, site care decrease IVF rate; initial CXR with evidence of interstitial congestion abx, urine cx + Proteus, stool C dif and stool cx negative, DVT GI prophylaxis K replaced, stable afterwards, stable Mg monitor lytes, correct as needed, avoid nephrotoxic seizure precautions, continue Keppra and Dilantin , monitor Dilantin level- per PMD Pain management Bowel regimen skin care elevated TSH- ; dose of levothyroxine increased, check TSH in 4 wks on ASA, lipid panel stable BP management, Clonidine prn case discussed and evaluated by supervising physician Subjective Allergies: Coded Allergies: PEANUT (Verified Allergy, Unknown, 09/22/16) Subjective leukocytosis resolved, afebrile no signs of resp distress on current vent settings Objective Last 24 Hour Vital Signs Date Time Temp Pulse Resp B/P (MAP) Pulse Ox O2 Delivery O2 Flow Rate FiO2 10/24/17 13:28 52 16 40 10/24/17 11:36 45 10/24/17 10:52 54 16 40 10/24/17 09:12 60 14 40 10/24/17 08:00 40 10/24/17 08:00 98.1 62 16 112/54 100 Mechanical Ventilator 40 10/24/17 07:44 51 10/24/17 07:29 74 20 40 10/24/17 05:31 50 19 40 10/24/17 04:00 50 19 108/58 100 Mechanical Ventilator 40 10/24/17 04:00 40 10/24/17 04:00 48 10/24/17 03:42 72 14 40 10/24/17 02:17 65 14 40 10/24/17 00:00 40 10/24/17 00:00 47 19 119/55 Mechanical Ventilator 40 10/24/17 00:00 51 10/23/17 23:34 65 14 40 10/23/17 21:11 65 14 40 10/23/17 20:00 97.9 44 19 105/42 100 Mechanical Ventilator 40 10/23/17 20:00 40 10/23/17 20:00 46 10/23/17 18:39 65 14 40 10/23/17 18:37 65 14 40 10/23/17 17:29 65 14 40 10/23/17 16:00 97.8 68 17 114/57 99 Mechanical Ventilator 40 10/23/17 15:38 58 10/23/17 15:38 40 10/23/17 15:23 72 22 40 Intake and Output 10/23/17 10/24/17 19:00 07:00 Intake Total 975 ml 280 ml Output Total 450 ml 800 ml Balance 525 ml -520 ml Intake Free Water 100 ml 100 ml IV Total 755 ml Tube Feeding 120 ml 180 ml Output Urine Total 450 ml 800 ml # Bowel Movements 4 Objective General Appearance: no apparent distress, obese, bedridden, awake, not responsive to verbal stimuli AA female on vent AC 600-12-40% peep 5 Lines, tubes and drains: peripheral HEENT: normocephalic, anicteric Neck: trach - Portex#8, secretions small yellow, thin Respiratory/Chest: lungs clear, no respiratory distress Cardiovascular/Chest: normal rate, regular rhythm - SR on tele Abdomen: normal bowel sounds, non tender, soft - obese, feeding tube - G tube Skin Exam: warm/dry Neurologic: abnormal gait - bedridden , other - not responsive, spastic LE Musculoskeletal: atrophy - BLE Microbiology Date/Time Source Procedure Growth Status 10/21/17 14:30 Blood Blood Culture - Preliminary NO GROWTH AFTER 48 HOURS Resulted 10/21/17 14:15 Blood Blood Culture - Preliminary NO GROWTH AFTER 48 HOURS Resulted 10/21/17 22:00 Nasal Nares Left MRSA Culture - Final NO METHICILLIN RESISTANT STAPH AUREUS... Complete 10/21/17 15:30 Stool Stool Culture - Preliminary NO SALMONELLA,SHIGELLA,OR CAMPYLOBACT... Resulted 10/21/17 15:30 Stool Clostridium difficile Toxin Assay - Final Resulted 10/21/17 22:00 Rectum VRE Culture - Final Enterococcus Faecalis - Vre Complete Current Medications Medications (Trade) Dose Ordered Sig/Boubacar Route PRN Reason Start Time Stop Time Status Last Admin Dose Admin Acetaminophen (Tylenol) 650 mg Q4H PRN GT pain, fever 10/21/17 16:00 11/20/17 15:59 Acetaminophen (Tylenol) 650 mg Q6H PRN GT Prn Headache/Temp > 101 10/21/17 16:00 11/20/17 15:59 Albuterol/ Ipratropium (Albuterol/ Ipratropium) 3 ml Q4H PRN HHN Shortness of Breath 10/21/17 16:00 10/26/17 15:59 Aspirin (ASA) 325 mg DAILY GT 10/22/17 09:00 11/21/17 08:59 10/24/17 08:04 Cefepime HCl 1 gm/ Sodium Chloride 55 ml @ 110 mls/hr EVERY 12 HOURS IVPB 10/22/17 09:00 10/29/17 23:59 10/24/17 08:06 Dextrose (Dextrose 50%) STAT PRN IV Hypoglycemia 10/21/17 16:00 11/20/17 15:59 Docusate Sodium (Colace) 100 mg TWICE A DAY GT 10/21/17 21:00 11/20/17 20:59 10/24/17 08:04 Famotidine (Pepcid) 20 mg TWICE A DAY GT 10/21/17 18:00 11/20/17 17:59 10/24/17 08:04 Heparin Sodium (Porcine) (Heparin 5000 units/ml) 5,000 units EVERY 12 HOURS SUBQ 10/21/17 21:00 11/20/17 20:59 10/24/17 08:03 Levetiracetam (Keppra) 1,500 mg BID GT 10/22/17 09:00 11/21/17 08:59 10/24/17 08:04 Levothyroxine Sodium (Synthroid) 50 mcg DAILY@0630 GT 10/23/17 06:30 11/22/17 06:29 10/24/17 05:49 Ondansetron HCl (Zofran) 4 mg Q6H PRN IVP Nausea & Vomiting 10/21/17 16:00 11/20/17 15:59 Phenytoin (Dilantin) 200 mg Q8HR GT 10/23/17 15:00 11/22/17 14:59 10/24/17 05:45 Sodium Chloride 1,000 ml @ 50 mls/hr Q20H IV 10/22/17 10:35 11/21/17 10:34 10/24/17 03:07 Dennis ([facility])Libby NP Oct 24, 2017 13:47
--- NOTE | 2017-10-24 15:28 | Cardiology Report ---
APPROVED REPORT EKG Measurement Heart [id number] Sinus rhythm with 1st degree AV block Right bundle branch block Abnormal ECG
[2017-10-24 16:00] VITALS: BP 121/66
[2017-10-24] MEDS ORDERED: Tubing IV Secondary IV ONE (16:03)
--- NOTE | 2017-10-24 20:00 | Consultation ---
DATE OF CONSULTATION: 10/23/2017 CARDIOLOGY CONSULTATION REFERRING PHYSICIAN: Lee Roy M.D. REASON FOR EVALUATION: Bradycardia. HISTORY OF PRESENT ILLNESS: This is an unfortunate elderly female, who is not really able to provide any meaningful history whatsoever. The patient has been admitted to the hospital because of various reasons and was noted to have some bradycardia that is why this consultation requested. The patient is nonverbal, noncommunicative, not really responsive, but she is awake in a persistent vegetative state on a ventilator and therefore is not able to provide history. Information from the old chart indicates the patient has anoxic brain damage with persistent vegetative state, ventilator, and NG tube dependence, history of sepsis, urinary tract infection and chronic ventilator therapy, anemia, electrolyte imbalance, seizure disorder, morbid obesity, systemic hypertension, decubitus ulcers, history of breast cancer reportedly remotely, quadriplegia, anemia, hyperlipidemia, previous nicotine dependence, history of myocardial infarction, and previously diverticulosis without perforation. Also, hypothyroidism on prior occasion. ALLERGIES: She is not allergic to any medications. She is allergic to peanuts. SOCIAL HISTORY: She is a resident of convalescent facility. Does not smoke or drink. She is fed through a G-tube. REVIEW OF SYSTEMS: Unable to obtain. PHYSICAL EXAMINATION: GENERAL: Shows to be morbidly obese elderly female on a ventilator, not communicative or responsive. Eyes are open, but does not track, and does not respond to any stimulation. VITAL SIGNS: Blood pressure 114/57, heart rate 68, temperature 97.8 degrees and saturation 99%. LUNGS: Anteriorly some rhonchi. CARDIAC: Regular rhythm. No heaves or thrills. ABDOMEN: Abdomen is obese. Positive bowel sounds. G-tube present. EXTREMITIES: There is no edema. NEUROLOGICAL: She is awake, alert. LABORATORY AND DIAGNOSTIC DATA: White count 7.5, hemoglobin 11.5, and a platelet count of 188. The pH is 7.45, pCO2 35, pO2 of 160, and bicarbonate at 28. Sodium 136, potassium 3.9, chloride 101, bicarbonate 30, BUN of 11, creatinine 0.5 and glucose of 100. Magnesium of 1.8. Total cholesterol 179, HDL of 67, and LDL of 98. TSH of 7.416. Her urinalysis showed 4 to 6 wbc's and 2 to 4 rbc's. A chest x-ray performed on 10/21/2017 shows improved interstitial edema. Background of interstitial disease. The telemetry data shows episodes of Mobitz I second-degree AV block. The patient does have at baseline right bundle-branch conduction defect with first-degree AV block and sinus rhythm with no significant pauses noted on this EKG despite episodes of AV block, Mobitz I. ASSESSMENT AND PLAN: 1. Mobitz I second-degree atrioventricular block, intermittent in nature without prolonged pauses. 2. Chronic respiratory failure, on ventilator. 3. Persistent vegetative state. 4. Morbid obesity. 5. Hypertension. 6. Urinary tract infection. 7. Probable sepsis. 8. Anoxic brain injury history. This patient was seen in cardiac consultation. The patient is really unfortunate significant disease, significant morbidity with anoxic injury and had persistent vegetative state. The patient's bradycardia is not symptomatic nor is there any significant pauses. The patient is a very poor candidate for any advanced cardiac therapy at this time and does not require any further therapy at this time. The plan would be to avoid negative chronotropic agents in the future such as beta-blockers or clonidine and calcium channel blockers. She has Cardizem in the future, not so as not to contribute to any further blocks. The patient's medications were reviewed, although the patient has had on a p.r.n. basis orders, but clonidine she has not received any. I will discontinue that off of her medications at this time. Mathew Minor M.D. DR: RYANNE JOB#: [id number] CC:
--- NOTE | 2017-10-25 16:23 | Discharge Summary ---
Discharge Summary Hospital Course Date of Admission Oct 21, 2017 at 14:26 Date of Discharge Oct 24, 2017 at 20:20 Admitting Diagnosis sepsis, UTI Reason for Hospitalization: sepsis, UTI HPI 77y/o female with pmh of chronic respiratory failure s/p tracheostomy w/ ventilator dependence, dysphagia s/p PEG, CVA, HTN, hypothyroidism, anoxic encephalopathy, seizure d/o who presents with fever. Pt found to have fever to 101.5 at SNF. No reports of n/v/d/c, chest pain, SOB, abd pain. Pt is incontinent of urine and stool. Pt is able to respond by voicing some words and shaking head yes/no. In ER, pt with leukocytosis to 11.5K. U/A w/ concern for UTI. She was given IVFs , ceftriaxone and levaquin. Consultations Cardiology, Pulmonology, Infectious disease Hospital Course Pt was admitted and placed on cefepime for sepsis 2/2 UTI. Urine culture showed Proteus which was sensitive for ceftraixone. Pt was transitioned to course of ceftriaxone for 4 more days on d/c per ID. Pt also notedd to have bradycardia and Mobitz I second-degree atrioventricular block, intermittent in nature without prolonged pauses. Pt was seen by cardiology recommending avoiding AV renetta blockers but pt is not a candidate for advanced therapy at this time. Discharge physical exam: GENERAL: Shows to be morbidly obese elderly female on a ventilator, not communicative or responsive. Eyes are open, but does not track, and does not respond to any stimulation. VITAL SIGNS: Blood pressure 114/57, heart rate 68, temperature 97.8 degrees and saturation 99%. LUNGS: Anteriorly some rhonchi. CARDIAC: Regular rhythm. No heaves or thrills. ABDOMEN: Abdomen is obese. Positive bowel sounds. G-tube present. EXTREMITIES: There is no edema. NEUROLOGICAL: She is awake, alert. Discharge diagnoses: (1) Sepsis ICD Codes: A41.9 - Sepsis, unspecified organism SNOMED: 75018575 (2) UTI (urinary tract infection) ICD Codes: N39.0 - Urinary tract infection, site not specified SNOMED: 29525320 Qualifiers: Qualified Codes: N39.0 - Urinary tract infection, site not specified (3) Chronic respiratory failure ICD Codes: J96.10 - Chronic respiratory failure, unspecified whether with hypoxia or hypercapnia SNOMED: 82310983 Qualifiers: Qualified Codes: J96.10 - Chronic respiratory failure, unspecified whether with hypoxia or hypercapnia (4) Functional paraplegia (5) Status post tracheostomy ICD Codes: Z93.0 - Tracheostomy status SNOMED: 21245916, 047269593 (6) Ventilator dependence ICD Codes: Z99.11 - Dependence on respirator [ventilator] status SNOMED: 253031893 (7) H/O: CVA (cerebrovascular accident) ICD Codes: Z86.73 - Personal history of transient ischemic attack (TIA), and cerebral infarction without residual deficits SNOMED: 882314226 (8) Dysphagia s/p PEG (9) Anoxic encephalopathy ICD Codes: G93.1 - Anoxic brain damage, not elsewhere classified SNOMED: 214540805 (10) Hypothyroidism ICD Codes: E03.9 - Hypothyroidism, unspecified SNOMED: 08253676 (11) Seizure disorder ICD Codes: G40.909 - Epilepsy, unspecified, not intractable, without status epilepticus SNOMED: 183559038 (12) HTN (hypertension) ICD Codes: I10 - Essential (primary) hypertension SNOMED: 51380552 (13) Paroxysmal supraventricular tachycardia ICD Codes: I47.1 - Supraventricular tachycardia SNOMED: 90658540 (14) Bradycardia ICD Codes: R00.1 - Bradycardia, unspecified SNOMED: 21789306 (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, 2nd degree, Mobitz I ICD Codes: I44.1 - Atrioventricular block, second degree Discharge Medications New Medications: Ceftriaxone Na/Dextrose,Iso (Ceftriaxone 1 Gm Piggyback) 1 Gm/50 Ml Froz.piggy 1 GM IV Q24H for 4 Days, BAG Continued Medications: Acetaminophen (Acetaminophen) 650 Mg/20.3 Ml Solution 650 MG GT Q6H PRN for Prn Headache/Temp > 101, ML 0 Refills Albuterol Sulfate* (Albuterol Sulfate Mdi*) 8.5 Gm Hfa.aer.ad 2 PUFF INH Q2HR PRN for Shortness of Breath, #1 INH 0 Refills Aspirin* (Aspir 81*) 81 Mg Tablet. 325 MG GT DAILY, TAB Bisacodyl* (Dulcolax*) 5 Mg Tablet. 10 MG RECTAL PRN, #10 TAB 0 Refills Cran/Vitc/Mannose/Inulin/Brom (Uti-Stat Liquid) 3,875 Mg/30 Ml Liquid 30 ML GT TWICE A DAY, ML Cran/Vitc/Mannose/Inulin/Brom (Uti-Stat Liquid) 3,875 Mg/30 Ml Liquid 3875 MG GT DAILY, ML Enoxaparin* (Lovenox*) 40 Mg/0.4 Ml Inj 40 MG SUBQ DAILY Famotidine (Famotidine) 20 Mg Tablet 20 MG GT TWICE A DAY, #60 TAB 0 Refills Ferrous Sulfate* (Ferrous Sulfate*) 325 Mg Tablet 7.5 ML GT DAILY, #30 TAB 0 Refills Heparin Sod (Porcine) (Heparin Sodium*) 5 000/1 Ml Vial 5000 UNITS SUBQ EVERY 12 HOURS, VIAL Ipratropium/Albuterol Sulfate (DuoNeb 0.5-3(2.5)mg/3ml) 3 Ml Ampul.neb 3 ML HHN Q6HR PRN for Shortness of Breath, EA Levetiracetam* (Levetiracetam*) 500 Mg Tablet 1500 MG GT DAILY, #60 TAB 0 Refills Levothyroxine Sodium* (Synthroid*) 25 Mcg Tablet 25 MCG GT DAILY, TAB Take in the morning on an empty stomach, at least 30 minutes before food. Lorazepam* (Ativan*) 1 Mg Tablet 1 MG GT EVERY 6 HOURS PRN for Agitation, TAB Magnesium Hydroxide (Milk of Magnesia) 400 Mg/5 Ml Oral.susp 30 ML ORAL DAILY PRN for Constipation, ML Meropenem-0.9% Sodium Chloride (Meropenem-0.9% NaCl 1 Gram/50) 1 Gm/50 Ml Piggyback 1 GM IV Q8HR, #5 BAG 5 more doses Multivitamin With Minerals (Multivitamins With Minerals*) 1 Each Tablet 15 ML GT DAILY, TAB Na Phos,M-B/Na Phos,Di-Ba* (Fleet Enema*) 133 Ml Enema 133 ML RECTAL DAILY PRN for Constipation, ML 0 Refills Phenytoin (Dilantin) 50 Mg Tab.chew 200 MG ORAL THREE TIMES A DAY, #90 TAB 0 Refills Discontinued Medications: Tigecycline (Tigecycline) 50 Mg Vial 50 MG IV EVERY 12 HOURS for 8 Days, VIAL Discharge Condition Upon Discharge: stable Discharge Disposition Patient was discharged to SNF/Subacute Facility(03) Discharge Diagnoses: Wijegunaratne,Kanishka M.D. Oct 25, 2017 16:22
== END 2017-10-24 20:20 | DRG 871 ==
LOC: EDBD 12:33 → EMR 13:38 → 2W 14:26 → EDBEDREQ 15:05
PROC: 5A1945Z Respiratory Ventilation, 24-96 Consecutive Hours (ICD-10-PCS; principal; 2017-10-21)
DX: A41.9 Sepsis, unspecified organism (principal); J96.20 Acute and chronic respiratory failure, unspecified whether with hypoxia or hypercapnia; G93.1 Anoxic brain damage, not elsewhere classified; Z99.11 Dependence on respirator [ventilator] status; R40.3 Persistent vegetative state; R53.2 Functional quadriplegia; Z43.0 Encounter for attention to tracheostomy; N39.0 Urinary tract infection, site not specified; Z43.1 Encounter for attention to gastrostomy; Z68.41 Body mass index [BMI] 40.0-44.9, adult; J44.9 Chronic obstructive pulmonary disease, unspecified; E87.6 Hypokalemia; G40.909 Epilepsy, unspecified, not intractable, without status epilepticus; R11.10 Vomiting, unspecified; Z85.3 Personal history of malignant neoplasm of breast; E03.9 Hypothyroidism, unspecified; B96.4 Proteus (mirabilis) (morganii) as the cause of diseases classified elsewhere; I44.1 Atrioventricular block, second degree; R13.10 Dysphagia, unspecified; Z86.73 Personal history of transient ischemic attack (TIA), and cerebral infarction without residual deficits; B96.1 Klebsiella pneumoniae [K. pneumoniae] as the cause of diseases classified elsewhere; Z16.24 Resistance to multiple antibiotics; I10 Essential (primary) hypertension; I25.2 Old myocardial infarction; E66.01 Morbid (severe) obesity due to excess calories
CPT/HCPCS: 36415; 36600; 71045; 80048; 80053; 80061; 81003; 82550; 82553; 82803; 82962; 83605; 83735; 83880; 84443; 84484; 85025; 87040; 87045; 87081; 87086; 87181; 87324; 93005; 94002; 94003; 99285; J8499

== ENCOUNTER 2017-11-08 12:41 | Inpatient (IN) | payer OTHER, MEDICAID ==
[~2017-11-08] VITALS: Ht 162.6 cm; Wt 120.3 kg
[~2017-11-08 12:41] MED LIST changes: +ALBUTEROL SULF8.5 GM INH; +CEFTRIAXON1 GM/50 ML IV; +DILANTIN50 MG ORAL
[2017-11-08 13:20] LABS: HEMATOCRIT 34.1 % (37.0-47.0); HEMOGLOBIN 11.6 G/DL (12.0-16.0); MEAN CORPUSCULAR VOLUME 96 FL (80-99); PLATELET COUNT 216 K/UL (150-450); RED BLOOD COUNT 3.56 M/UL (4.20-5.40); RED CELL DISTRIBUTION WIDTH 15.8 % (11.6-14.8); WHITE BLOOD COUNT 18.8 K/UL (4.8-10.8)
[2017-11-08 13:50] LABS: ALANINE AMINOTRANSFERASE 33 U/L (12-78); ALBUMIN 2.6 G/DL (3.4-5.0); ALBUMIN/GLOBULIN RATIO 0.4 (1.0-2.7); ALKALINE PHOSPHATASE 424 U/L (46-116); ANION GAP 5 mmol/L (5-15); ASPARTATE AMINO TRANSFERASE 46 U/L (15-37); BILIRUBIN,TOTAL 0.6 MG/DL (0.2-1.0); BLOOD UREA NITROGEN 10 mg/dL (7-18); CALCIUM 9.9 MG/DL (8.5-10.1); CARBON DIOXIDE 34 MMOL/L (21-32); CHLORIDE 97 MMOL/L (98-107); CKMB < 0.5 NG/ML (0.0-3.6); CREATINE KINASE 31 U/L (26-308); CREATININE 0.7 MG/DL (0.55-1.30); SODIUM 136 MMOL/L (136-145)
[2017-11-08 13:55] LABS: POTASSIUM 2.7 MMOL/L (3.5-5.1)
--- NOTE | 2017-11-08 14:09 | Diagnostic Imaging Report ---
Indication: Dyspnea Comparison: 10/24/2017 A single view chest radiograph was obtained. Findings: Interstitial opacities with pulmonary vascularity noted. Heart is enlarged. Tracheostomy is present. Bones are osteopenic. Surgical clips demonstrated in the right axilla. IMPRESSION: CHF
[2017-11-08] MEDS ORDERED: NS w/KCl 20mEq 1,000 ML IV SCH (14:15)
[2017-11-08 14:30] VITALS: BP 124/67
[2017-11-08] MEDS ORDERED: FLEET ENEMA133 ML RECTAL (14:52)
[2017-11-08] MEDS ORDERED: DOCUSATE SODIU100 MG GT (14:52)
[2017-11-08] MEDS ORDERED: ZOFRAN8 MG GT (14:52)
[2017-11-08] MEDS ORDERED: DULCOLAX10 MG RC (14:52)
[2017-11-08] MEDS ORDERED: LEVOTHYROXINE50 MCG GT (14:52)
[2017-11-08] MEDS ORDERED: MILK OF MA400 MG/51 GT (14:52)
[2017-11-08] MEDS ORDERED: DILANTIN100 MG GT (14:52)
[2017-11-08] MEDS ORDERED: Morphine Sulfate 4mg/ml Inj IVP PRN (15:30)
[2017-11-08] MEDS ORDERED: Miralax 17gm pkt ORAL PRN (15:30)
[2017-11-08] MEDS ORDERED: Albuterol/Ipratropium 3ml neb HHN PRN (15:30)
[2017-11-08] MEDS ORDERED: LORazepam Inj 2mg/ml 1ml IV PRN (15:30)
[2017-11-08] MEDS ORDERED: LEVETIRACE100 MG/1 M GT ×2 (15:36→15:40)
[2017-11-08] MEDS ORDERED: [UNRECOGNIZED DRUG - OTHER] IVPB ONE (15:45)
[2017-11-08] MEDS ORDERED: VANCOMYCIN 1500 MG IVPB ONE (15:45)
--- NOTE | 2017-11-08 16:35 | Emergency Room Report ---
History of Present Illness General Chief Complaint: Fever Source: Patient, Medical Record Present Illness HPI 77-year-old female presents ED for evaluation. Patient brought from [facility] facility with fever from [facility]. Patient is on ventilator with trach. Upon arrival patient showing no signs of distress. Unable to provide any additional history at this time. No other aggravating or relieving factors. No other associated symptoms Allergies: Coded Allergies: PEANUT (Verified Allergy, Unknown, 09/22/16) Patient History Past Medical History: none, HTN, COPD, CVA/TIA, seizures Past Surgical History: none Pertinent Family History: none Social History: Denies: smoking, alcohol use, drug use Now: No Reviewed Nursing Documentation: PMH: Agreed, PSxH: Agreed Nursing Documentation-PMH Past Medical History: No History, Except For Hx Cardiac Problems: Yes Hx Hypertension: Yes Hx COPD: Yes Hx Diabetes: Yes - Hypothyroid Hx Cancer: No Hx Gastrointestinal Problems: Yes Hx Neurological Problems: Yes Hx Cerebrovascular Accident: Yes Hx Seizures: Yes Hx Paralysis: Yes Hx Peripheral Neuropathy: Yes Hx Memory Loss: Yes Hx Concentration Difficulty: Yes Hx Speech Problem: Yes Hx Aphasia: Yes Hx Dysphasia: Yes Hx Weakness: Yes Review of Systems All Other Systems: limited Physical Exam Vital Signs Date Time Temp Pulse Resp B/P (MAP) Pulse Ox O2 Delivery O2 Flow Rate FiO2 11/08/17 12:45 99.9 104 18 90/61 98 Mechanical Ventilator 15.0 99.9 11/08/17 13:07 40 Sp02 EP Interpretation: reviewed, normal General Appearance: no apparent distress, alert, GCS 15, non-toxic Head: normocephalic, atraumatic Eyes: bilateral eye normal inspection, bilateral eye PERRL ENT: hearing grossly normal, normal pharynx, no angioedema, normal voice Neck: full range of motion, supple/symm/no masses, tracheotomy Respiratory: chest non-tender, lungs clear, normal breath sounds, speaking full sentences Cardiovascular #1: regular rate, rhythm, no edema Cardiovascular #2: 2+ carotid (R), 2+ carotid (L), 2+ radial (R), 2+ radial (L) , 2+ dorsalis pedis (R), 2+ dorsalis pedis (L) Gastrointestinal: normal bowel sounds, non tender, soft, non-distended, no guarding, no rebound Rectal: deferred Genitourinary: normal inspection, no CVA tenderness Musculoskeletal: back normal, gait/station normal, normal range of motion, non- tender Neurologic: alert, oriented x3, responsive, motor strength/tone normal, sensory intact, speech normal Psychiatric: judgement/insight normal, memory normal, mood/affect normal, no suicidal/homicidal ideation Reflexes: 3+ bicep (R), 3+ bicep (L), 3+ tricep (R), 3+ tricep (L), 3+ knee (R) , 3+ knee (L) Skin: normal color, no rash, warm/dry, well hydrated Lymphatic: no adenopathy Medical Decision Making Diagnostic Impression: Primary Impression: Pneumonia Qualified Codes: J18.1 - Lobar pneumonia, unspecified organism Additional Impressions: Chronic respiratory failure Qualified Codes: J96.10 - Chronic respiratory failure, unspecified whether with hypoxia or hypercapnia Ventilator dependence Hypokalemia ER Course Hospital Course 77-year-old female presents ED with fever from [facility]. Trach/ventilator patient Differential diagnoses include: Pneumonia, CHF exacerbation, pneumothorax, fluid overload Clinical course Patient placed on stretcher. On provider education specialist with hypoxia on room air and tachycardia. After initial history and physical, I ordered labs, IV fluids, EKG , chest x-ray, blood cultures, UA. Labs -leukocytosis noted, hemoglobin/hematocrit stable, K 2.7, lactate okay troponins negative CXR - R lower lobe infiltrate Antibiotics given. K repleted Case discussed with Dr. Rodriguez and he agreed to the patient to his service for further care and support I feel this is a highly complex case requiring extensive working including EKG/ Rhythm strip, Xray/CT/US, Blood/urine lab work, repeat exams while in ED, and administration of strong opiates/narcotics for pain control, admission to hospital or close patient follow up. Diagnosis - pneumonia, chronic respiratory failure, ventilator dependence, hypokalemia Patient admitted to [facility] in serious condition Labs Test 11/08/17 13:05 White Blood Count 18.8 K/UL (4.8-10.8) Red Blood Count 3.56 M/UL (4.20-5.40) Hemoglobin 11.6 G/DL (12.0-16.0) Hematocrit 34.1 % (37.0-47.0) Mean Corpuscular Volume 96 FL (80-99) Mean Corpuscular Hemoglobin 32.5 PG (27.0-31.0) Mean Corpuscular Hemoglobin Concent 34.0 G/DL (32.0-36.0) Red Cell Distribution Width 15.8 % (11.6-14.8) Platelet Count 216 K/UL (150-450) Mean Platelet Volume 10.5 FL (6.5-10.1) Neutrophils (%) (Auto) % (45.0-75.0) Lymphocytes (%) (Auto) % (20.0-45.0) Monocytes (%) (Auto) % (1.0-10.0) Eosinophils (%) (Auto) % (0.0-3.0) Basophils (%) (Auto) % (0.0-2.0) Differential Total Cells Counted 100 Neutrophils % (Manual) 86 % (45-75) Lymphocytes % (Manual) 8 % (20-45) Monocytes % (Manual) 3 % (1-10) Eosinophils % (Manual) 0 % (0-3) Basophils % (Manual) 0 % (0-2) Band Neutrophils 3 % (0-8) Platelet Estimate Adequate Platelet Morphology Normal Red Blood Cell Morphology Normal Sodium Level 136 MMOL/L (136-145) Potassium Level 2.7 MMOL/L (3.5-5.1) Chloride Level 97 MMOL/L (98-107) Carbon Dioxide Level 34 MMOL/L (21-32) Anion Gap 5 mmol/L (5-15) Blood Urea Nitrogen 10 mg/dL (7-18) Creatinine 0.7 MG/DL (0.55-1.30) Estimat Glomerular Filtration Rate mL/min (>60) Glucose Level 131 MG/DL (74-106) Lactic Acid Level 1.40 mmol/L (0.66-2.22) Calcium Level 9.9 MG/DL (8.5-10.1) Total Bilirubin 0.6 MG/DL (0.2-1.0) Aspartate Amino Transf (AST/SGOT) 46 U/L (15-37) Alanine Aminotransferase (ALT/SGPT) 33 U/L (12-78) Alkaline Phosphatase 424 U/L (46-116) Total Creatine Kinase 31 U/L (26-308) Creatine Kinase MB < 0.5 NG/ML (0.0-3.6) Creatine Kinase MB Relative Index 1.6 Troponin I 0.017 ng/mL (0.000-0.056) Pro-B-Type Natriuretic Peptide 453 pg/mL (0-125) Total Protein 8.5 G/DL (6.4-8.2) Albumin 2.6 G/DL (3.4-5.0) Globulin 5.9 g/dL Albumin/Globulin Ratio 0.4 (1.0-2.7) EKG Diagnostic Results Rate: normal Rhythm: NSR ST Segments: no acute changes ASA given to the pt in ED: No Rhythm Strip Diag. Results EP Interpretation: yes Rhythm: NSR, no PVC's, no ectopy Chest X-Ray Diagnostic Results Chest X-Ray Diagnostic Results : Chest X-Ray Ordered: Yes # of Views/Limited/Complete: 1 View Indication: Shortness of Breath EP Interpretation: Yes Interpretation: no pneumothorax, other - RLL infiltrate Impression: Other - pneumonia Electronically Signed by: Electronically signed by Mina Mckenzie MD Last Vital Signs Date Time Temp Pulse Resp B/P (MAP) Pulse Ox O2 Delivery O2 Flow Rate FiO2 11/08/17 14:53 101 18 40 11/08/17 14:30 99.9 124/67 94 Mechanical Ventilator 15.0 99.9 Status: improved Disposition: ADMITTED INPATIENT Condition: Serious Referrals: ANGELA RODRIGUEZ (PCP) MINA MCKENZIE M.D. Nov 08, 2017 16:35
[2017-11-08 16:44] LABS: APPEARANCE,URINE CLEAR; BILIRUBIN, URINE NEGATIVE (NEGATIVE); GLUCOSE, URINE (UA) NEGATIVE (NEGATIVE); KETONES,URINE NEGATIVE (NEGATIVE); LEUKOCYTE ESTERASE ,URINE 1+ (NEGATIVE); NITRITE,URINE NEGATIVE (NEGATIVE); PH,URINE 5 (4.5-8.0); PROTEIN,URINE 2+ (NEGATIVE); UROBILINOGEN,URINE 1 MG/DL (0.0-1.0)
[2017-11-08 16:46] VITALS: BP 110/59
[2017-11-08 16:48] LABS: COLOR,URINE YELLOW
[2017-11-08 18:54] VITALS: BP 110/61
[2017-11-08 20:59] VITALS: BP 108/52
[2017-11-08] MEDS: Heparin 5000 units/ml inj SUBQ SCH (21:51)
[2017-11-08 22:30] VITALS: BP 120/59
[2017-11-08] MEDS: levETIRAcetam 500mg/5ml Liquid GT SCH (23:02)
[2017-11-09] VITALS: BP 114/65
[2017-11-09] MEDS: Phenytoin Susp 100mg/4ml GT SCH ×4 (01:02→21:32)
[2017-11-09] MEDS: NS w/KCl 20mEq 1,000 ML IV SCH ×3 (01:53→22:00)
[2017-11-09 04:00] VITALS: BP 122/72
[2017-11-09] MEDS ORDERED: Vancomycin 750mg/NS 250ml IVPB SCH (06:00)
[2017-11-09 06:18] LABS: BASOPHILS % (AUTO) 0.8 % (0.0-2.0); EOSINOPHILS % (AUTO) 2.6 % (0.0-3.0); HEMATOCRIT 28.1 % (37.0-47.0); HEMOGLOBIN 9.7 G/DL (12.0-16.0); LYMPHOCYTES % (AUTO) 14.5 % (20.0-45.0); MEAN CORPUSCULAR VOLUME 97 FL (80-99); MONOCYTES % (AUTO) 5.8 % (1.0-10.0); NEUTROPHILS % (AUTO) 76.3 % (45.0-75.0); PLATELET COUNT 165 K/UL (150-450); RED CELL DISTRIBUTION WIDTH 15.9 % (11.6-14.8); WHITE BLOOD COUNT 8.8 K/UL (4.8-10.8)
[2017-11-09 06:52] LABS: ALBUMIN 2.2 G/DL (3.4-5.0); ANION GAP 4 mmol/L (5-15); BLOOD UREA NITROGEN 7 mg/dL (7-18); CALCIUM 9.2 MG/DL (8.5-10.1); CARBON DIOXIDE 31 MMOL/L (21-32); CHLORIDE 102 MMOL/L (98-107); CREATININE 0.5 MG/DL (0.55-1.30); PHOSPHORUS 2.4 MG/DL (2.5-4.9); POTASSIUM 3.4 MMOL/L (3.5-5.1); SODIUM 137 MMOL/L (136-145)
[2017-11-09 08:00] VITALS: BP 102/63
[2017-11-09] MEDS: Pantoprazole Inj IV SCH (08:47)
[2017-11-09] MEDS: levETIRAcetam 500mg/5ml Liquid GT SCH ×2 (08:48→21:32)
[2017-11-09] MEDS: Heparin 5000 units/ml inj SUBQ SCH ×2 (08:49→21:35)
--- NOTE | 2017-11-09 11:48 | History and Physical ---
History of Present Illness General Date patient seen: Nov 09, 2017 Reason for Hospitalization: Fever Present Illness HPI 77-year-old female with pmhx of chronic respiratory failure, s/p trach/peg, half-way resident presented to ED for evaluation of fever Patient is on ventilator. Upon arrival patient showing no signs of distress. Unable to provide any additional history at this time. No other aggravating or relieving factors. Pts cxr showed RML and RLL infiltrate and she is admitted to [facility] for nosocomial pneumonia. Allergies: Coded Allergies: PEANUT (Verified Allergy, Unknown, 09/22/16) Medication History Scheduled Aspirin* (Aspir 81*), 325 MG GT DAILY, (Reported) Bisacodyl (Dulcolax), 10 MG RC PRN, (Reported) Bisacodyl* (Dulcolax*), 10 MG RECTAL PRN, (Reported) Ceftriaxone Na/Dextrose,Iso (Ceftriaxone 1 Gm Piggyback), 1 GM IV Q24H Cran/Vitc/Mannose/Inulin/Brom (Uti-Stat Liquid), 30 ML GT TWICE A DAY, (Reported ) Cran/Vitc/Mannose/Inulin/Brom (Uti-Stat Liquid), 3,875 MG GT DAILY, (Reported) Docusate Sodium* (Docusate Sodium*), 100 MG GT DAILY, (Reported) Enoxaparin* (Lovenox*), 40 MG SUBQ DAILY, (Reported) Famotidine (Famotidine), 20 MG GT TWICE A DAY, (Reported) Ferrous Sulfate* (Ferrous Sulfate*), 7.5 ML GT DAILY, (Reported) Heparin Sod (Porcine) (Heparin Sodium*), 5,000 UNITS SUBQ EVERY 12 HOURS, ( Reported) Levothyroxine Sodium* (Synthroid*), 25 MCG GT DAILY, (Reported) Levothyroxine Sodium* (Levothyroxine Sodium*), 50 MCG GT DAILY, (Reported) Magnesium Hydroxide* (Milk Of Magnesia*), 30 ML GT DAILY, (Reported) Meropenem-0.9% Sodium Chloride (Meropenem-0.9% NaCl 1 Gram/50), 1 GM IV Q8HR Multivitamin With Minerals (Multivitamins With Minerals*), 15 ML GT DAILY, ( Reported) Na Phos,M-B/Na Phos,Di-Ba* (Fleet Enema*), 133 ML RECTAL PRN, (Reported) Phenytoin (Dilantin), 200 MG ORAL THREE TIMES A DAY, (Reported) Phenytoin Sodium Extended* (Dilantin*), 200 MG GT EVERY 8 HOURS, (Reported) Scheduled PRN Acetaminophen (Acetaminophen), 650 MG GT Q6H PRN for Prn Headache/Temp > 101, ( Reported) Albuterol Sulfate* (Albuterol Sulfate Mdi*), 2 PUFF INH Q2HR PRN for Shortness of Breath, (Reported) Ipratropium/Albuterol Sulfate (DuoNeb 0.5-3(2.5)mg/3ml), 3 ML HHN Q6HR PRN for Shortness of Breath, (Reported) Lorazepam* (Ativan*), 1 MG GT EVERY 6 HOURS PRN for Agitation, (Reported) Magnesium Hydroxide (Milk of Magnesia), 30 ML ORAL DAILY PRN for Constipation, ( Reported) Na Phos,M-B/Na Phos,Di-Ba* (Fleet Enema*), 133 ML RECTAL DAILY PRN for Constipation, (Reported) Ondansetron Hcl* (Zofran*), 4 MG GT Q6H PRN for Nausea & Vomiting, (Reported) Miscellaneous Medications Levetiracetam* (Levetiracetam*), 1,500 MG GT, (Reported) Discontinued Medications Levetiracetam* (Levetiracetam*), 1,500 MG GT DAILY, (Reported) Discontinued Reason: Prescription changed Levetiracetam* (Levetiracetam*), 500 MG GT Q12HR, (Reported) Discontinued Reason: Medication dose changed Patient History Healthcare decision maker Resuscitation status Full Code Advanced Directive on File No Past Medical/Surgical History Past Medical/Surgical History: (1) Functional paraplegia (2) H/O: CVA (cerebrovascular accident) (3) Ventilator dependence (4) Anoxic encephalopathy Family History Family History: Patient reports no known family medical history. Review of Systems All Other Systems: negative except mentioned in HPI Physical Exam General Appearance: WD/WN, no apparent distress Lines, tubes and drains: peripheral, central line HEENT: normocephalic, atraumatic Neck: non-tender, normal alignment Respiratory/Chest: chest wall non-tender, rhonchi - left, rhonchi - right Breasts: no masses Cardiovascular/Chest: normal peripheral pulses, normal rate, regular rhythm Abdomen: normal bowel sounds, non tender Genitourinary/Rectal: normal genital exam, normal rectal exam Last 24 Hour Vital Signs Date Time Temp Pulse Resp B/P (MAP) Pulse Ox O2 Delivery O2 Flow Rate FiO2 11/09/17 10:34 85 16 40 11/09/17 09:08 87 13 40 11/09/17 08:00 99.3 89 15 102/63 97 Mechanical Ventilator 40 99.3 11/09/17 08:00 89 11/09/17 08:00 40 11/09/17 06:54 86 13 40 11/09/17 05:06 86 14 40 11/09/17 04:00 98.0 84 18 122/72 96 Mechanical Ventilator 40 98.0 11/09/17 03:54 83 11/09/17 03:12 88 13 40 11/09/17 01:16 40 11/09/17 01:13 89 16 40 11/09/17 00:00 98.0 94 20 114/65 98 Mechanical Ventilator 40 98.0 11/08/17 23:20 99.4 91 16 120/59 92 Mechanical Ventilator 15.0 40 99.4 11/08/17 22:46 96 16 40 11/08/17 22:30 91 17 120/59 92 Mechanical Ventilator 40 11/08/17 21:10 91 18 40 11/08/17 20:59 99.4 91 19 108/52 92 Mechanical Ventilator 40 99.4 11/08/17 20:00 87 16 40 11/08/17 18:54 98.8 96 25 110/61 93 Mechanical Ventilator 98.8 11/08/17 17:51 101 18 40 11/08/17 16:46 102 19 110/59 94 Mechanical Ventilator 40 11/08/17 14:53 101 18 40 11/08/17 14:30 99.9 104 17 124/67 94 Mechanical Ventilator 15.0 40 99.9 11/08/17 13:07 105 15 40 11/08/17 12:45 99.9 104 18 90/61 98 Mechanical Ventilator 15.0 99.9 Intake and Output 11/08/17 11/09/17 19:00 07:00 Intake Total 2150 ml 936.144 ml Output Total 800 ml Balance 1350 ml 936.144 ml Intake Free Water 80 ml IV Total 2150 ml 706.144 ml Tube Feeding 150 ml Output Urine Total 800 ml # Voids 2 # Bowel Movements 1 Laboratory Tests Test 11/08/17 13:05 11/08/17 16:14 11/09/17 05:10 White Blood Count 18.8 K/UL (4.8-10.8) H 8.8 K/UL (4.8-10.8) # Red Blood Count 3.56 M/UL (4.20-5.40) L 2.90 M/UL (4.20-5.40) L Hemoglobin 11.6 G/DL (12.0-16.0) L 9.7 G/DL (12.0-16.0) L Hematocrit 34.1 % (37.0-47.0) L 28.1 % (37.0-47.0) L Mean Corpuscular Volume 96 FL (80-99) 97 FL (80-99) Mean Corpuscular Hemoglobin 32.5 PG (27.0-31.0) H 33.6 PG (27.0-31.0) H Mean Corpuscular Hemoglobin Concent 34.0 G/DL (32.0-36.0) 34.6 G/DL (32.0-36.0) Red Cell Distribution Width 15.8 % (11.6-14.8) H 15.9 % (11.6-14.8) H Platelet Count 216 K/UL (150-450) 165 K/UL (150-450) Mean Platelet Volume 10.5 FL (6.5-10.1) H 11.6 FL (6.5-10.1) H Neutrophils (%) (Auto) % (45.0-75.0) 76.3 % (45.0-75.0) H Lymphocytes (%) (Auto) % (20.0-45.0) 14.5 % (20.0-45.0) L Monocytes (%) (Auto) % (1.0-10.0) 5.8 % (1.0-10.0) Eosinophils (%) (Auto) % (0.0-3.0) 2.6 % (0.0-3.0) Basophils (%) (Auto) % (0.0-2.0) 0.8 % (0.0-2.0) Differential Total Cells Counted 100 Neutrophils % (Manual) 86 % (45-75) H Lymphocytes % (Manual) 8 % (20-45) L Monocytes % (Manual) 3 % (1-10) Eosinophils % (Manual) 0 % (0-3) Basophils % (Manual) 0 % (0-2) Band Neutrophils 3 % (0-8) Platelet Estimate Adequate Platelet Morphology Normal Red Blood Cell Morphology Normal Sodium Level 136 MMOL/L (136-145) 137 MMOL/L (136-145) Potassium Level 2.7 MMOL/L (3.5-5.1) *L 3.4 MMOL/L (3.5-5.1) L Chloride Level 97 MMOL/L (98-107) L 102 MMOL/L (98-107) Carbon Dioxide Level 34 MMOL/L (21-32) H 31 MMOL/L (21-32) Anion Gap 5 mmol/L (5-15) 4 mmol/L (5-15) L Blood Urea Nitrogen 10 mg/dL (7-18) 7 mg/dL (7-18) Creatinine 0.7 MG/DL (0.55-1.30) 0.5 MG/DL (0.55-1.30) L Estimat Glomerular Filtration Rate mL/min (>60) mL/min (>60) Glucose Level 131 MG/DL (74-106) H 90 MG/DL (74-106) Lactic Acid Level 1.40 mmol/L (0.66-2.22) Calcium Level 9.9 MG/DL (8.5-10.1) 9.2 MG/DL (8.5-10.1) Total Bilirubin 0.6 MG/DL (0.2-1.0) Aspartate Amino Transf (AST/SGOT) 46 U/L (15-37) H Alanine Aminotransferase (ALT/SGPT) 33 U/L (12-78) Alkaline Phosphatase 424 U/L (46-116) H Total Creatine Kinase 31 U/L (26-308) Creatine Kinase MB < 0.5 NG/ML (0.0-3.6) Creatine Kinase MB Relative Index 1.6 Troponin I 0.017 ng/mL (0.000-0.056) Pro-B-Type Natriuretic Peptide 453 pg/mL (0-125) H Total Protein 8.5 G/DL (6.4-8.2) H Albumin 2.6 G/DL (3.4-5.0) L 2.2 G/DL (3.4-5.0) L Globulin 5.9 g/dL Albumin/Globulin Ratio 0.4 (1.0-2.7) L Urine Color Yellow Urine Appearance Clear Urine pH 5 (4.5-8.0) Urine Specific [place] 1.010 (1.005-1.035) Urine Protein 2+ (NEGATIVE) H Urine Glucose (UA) Negative (NEGATIVE) Urine Ketones Negative (NEGATIVE) Urine Occult Blood Negative (NEGATIVE) Urine Nitrite Negative (NEGATIVE) Urine Bilirubin Negative (NEGATIVE) Urine Urobilinogen 1 MG/DL (0.0-1.0) H Urine Leukocyte Esterase 1+ (NEGATIVE) H Urine RBC 2-4 /HPF (0 - 2) H Urine WBC 5-10 /HPF (0 - 2) H Urine Squamous Epithelial Cells Few /LPF (NONE/OCC) Urine Bacteria Moderate /HPF (NONE) H Phosphorus Level 2.4 MG/DL (2.5-4.9) L Microbiology Date/Time Source Procedure Growth Status 11/08/17 16:14 Urine,Clean Catch Urine Culture - Preliminary Resulted Height (Feet): 5 Height (Inches): 4.00 Weight (Pounds): 236 Medications Current Medications Medications (Trade) Dose Ordered Sig/Boubacar Route PRN Reason Start Time Stop Time Status Last Admin Dose Admin Acetaminophen (Tylenol) 650 mg Q4H PRN ORAL T>100.5 11/08/17 15:30 12/08/17 15:29 Albuterol/ Ipratropium (Albuterol/ Ipratropium) 3 ml Q4H PRN HHN Shortness of Breath 11/08/17 15:30 11/13/17 15:29 Dextrose (Dextrose 50%) STAT PRN IV Hypoglycemia 11/08/17 15:30 12/08/17 15:29 Heparin Sodium (Porcine) (Heparin 5000 units/ml) 5,000 units EVERY 12 HOURS SUBQ 11/08/17 21:00 12/08/17 20:59 11/09/17 08:49 Levetiracetam (Keppra) 1,500 mg Q12HR GT 11/08/17 21:00 12/08/17 20:59 11/09/17 08:48 Levothyroxine Sodium (Synthroid) 50 mcg DAILY@0600 GT 11/10/17 06:00 12/10/17 05:59 Lorazepam (Ativan 2mg/ml 1ml) 2 mg Q2H PRN IV For Anxiety 11/08/17 15:30 11/15/17 15:29 Morphine Sulfate (Morphine Sulfate) 4 mg Q4H PRN IVP Severe Pain (Pain Scale 7-10) 11/08/17 15:30 11/15/17 15:29 Ondansetron HCl (Zofran) 4 mg Q6H PRN IVP Nausea & Vomiting 11/08/17 15:30 12/08/17 15:29 Pantoprazole (Protonix) 40 mg DAILY IV 11/09/17 09:00 12/09/17 08:59 11/09/17 08:47 Phenytoin (Dilantin) 200 mg Q8HR GT 11/08/17 22:00 12/08/17 21:59 11/09/17 05:49 Polyethylene Glycol (Miralax) 17 gm DAILYPRN PRN ORAL Constipation 11/08/17 15:30 12/08/17 15:29 Potassium Phosphate 20 mm/ Sodium Chloride 281.6667 ml @ 46.944 m... Q6H IV 11/09/17 12:00 11/09/17 23:59 Sodium Chloride 1,000 ml @ 100 mls/hr Q10H IV 11/09/17 02:00 12/09/17 01:59 11/09/17 01:53 Vancomycin HCl (Vanco rx to dose) 1 ea DAILY PRN MISC . 11/08/17 15:45 12/08/17 15:44 Vancomycin/Sodium Chloride 250 ml @ 166.667 mls/hr Q12H IVPB 11/09/17 06:00 11/14/17 05:59 11/09/17 05:50 Assessment/Plan Problem List: (1) Acute and chronic respiratory failure ICD Codes: J96.20 - Acute and chronic respiratory failure, unspecified whether with hypoxia or hypercapnia SNOMED: 33994770, 03332178 (2) Sepsis ICD Codes: A41.9 - Sepsis, unspecified organism SNOMED: 30077481 (3) Seizure disorder ICD Codes: G40.909 - Epilepsy, unspecified, not intractable, without status epilepticus SNOMED: 468278185 (4) Vegetative state ICD Codes: R40.3 - Persistent vegetative state SNOMED: 40646078, 147845202 (5) Functional paraplegia (6) H/O: CVA (cerebrovascular accident) ICD Codes: Z86.73 - Personal history of transient ischemic attack (TIA), and cerebral infarction without residual deficits SNOMED: 824664133 (7) HTN (hypertension) ICD Codes: I10 - Essential (primary) hypertension SNOMED: 46271596 Respiratory: monitor respiratory rate, adjust FIO2 Cardiac: continue to monitor HR/BP Renal: F/U I&O, keep IV fluid, check electrolytes Infectious Disease: check cultures, continue antibiotics Gastrointestinal: continue feedings/current rate Endocrine: monitor blood sugar Hematologic: transfuse if hgb<8.5 Neurologic: PRN Ativan, PRN Morphine, keep patient comfortable Prophylaxis: Protonix, Heparin 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
[2017-11-09] MEDS: Potassium Phosphate 20 MM in NS 275 ML IV SCH ×2 (11:49→17:57)
[2017-11-09 12:00] VITALS: BP 123/68
[2017-11-09 16:00] VITALS: BP 91/52
[2017-11-09] MEDS: Zoysn 3.37gm in NS 100ML IVPB SCH (17:57)
[2017-11-09 20:00] VITALS: BP 117/56
[2017-11-09] MEDS ORDERED: Vancomycin 1gm/D5W 275ml IVPB SCH ×2 (20:00)
--- NOTE | 2017-11-09 20:16 | Consultation ---
Consult Note Assessment/Plan [id number] HUNG GARCIA M.D. Nov 09, 2017 20:16
[2017-11-09] MEDS: Vancomycin 1gm/D5W 275ml IVPB SCH ×2 (21:34)
[2017-11-09] MEDS ORDERED: Vancomycin 1 GM in D5W 275 ML IV SCH (23:00)
[2017-11-10] VITALS: BP 111/63
[2017-11-10] MEDS: Zoysn 3.37gm in NS 100ML IVPB SCH ×3 (00:57→17:30)
[2017-11-10 04:00] VITALS: BP 116/60
[2017-11-10] MEDS: NS w/KCl 20mEq 1,000 ML IV SCH ×2 (05:00→17:30)
[2017-11-10] MEDS: Phenytoin Susp 100mg/4ml GT SCH ×3 (05:11→21:53)
[2017-11-10 05:54] LABS: BASOPHILS % (AUTO) 0.9 % (0.0-2.0); EOSINOPHILS % (AUTO) 5.7 % (0.0-3.0); HEMATOCRIT 26.1 % (37.0-47.0); HEMOGLOBIN 8.7 G/DL (12.0-16.0); LYMPHOCYTES % (AUTO) 15.3 % (20.0-45.0); MEAN CORPUSCULAR VOLUME 98 FL (80-99); MONOCYTES % (AUTO) 8.8 % (1.0-10.0); NEUTROPHILS % (AUTO) 69.3 % (45.0-75.0); PLATELET COUNT 191 K/UL (150-450); RED BLOOD COUNT 2.65 M/UL (4.20-5.40); RED CELL DISTRIBUTION WIDTH 15.8 % (11.6-14.8)
[2017-11-10 06:11] LABS: ALANINE AMINOTRANSFERASE 24 U/L (12-78); ALBUMIN 2.1 G/DL (3.4-5.0); ALBUMIN/GLOBULIN RATIO 0.4 (1.0-2.7); ALKALINE PHOSPHATASE 260 U/L (46-116); ANION GAP 6 mmol/L (5-15); ASPARTATE AMINO TRANSFERASE 28 U/L (15-37); BILIRUBIN,TOTAL 0.3 MG/DL (0.2-1.0); BLOOD UREA NITROGEN 6 mg/dL (7-18); CALCIUM 8.9 MG/DL (8.5-10.1); CARBON DIOXIDE 29 MMOL/L (21-32); CHLORIDE 105 MMOL/L (98-107); CREATININE 0.4 MG/DL (0.55-1.30); POTASSIUM 3.5 MMOL/L (3.5-5.1); SODIUM 140 MMOL/L (136-145)
--- NOTE | 2017-11-10 06:15 | Consultation ---
DATE OF CONSULTATION: INFECTIOUS DISEASES CONSULTATION CONSULTING PHYSICIAN: Delmer Madera M.D. REQUESTING PHYSICIAN: Savi Rodriguez M.D. REASON FOR CONSULTATION: Evaluation of the patient for fever, sepsis, and antibiotic management. HISTORY OF PRESENT ILLNESS: The patient is a 77-year-old female with multiple medical problems, who was well known to our service from prior admission, came to the hospital due to fever and general weakness. The patient was admitted with impression of sepsis. An Infectious Disease consultation was requested for further evaluation of the patient and antibiotic management. The patient is not able to provide information. PAST MEDICAL HISTORY: 1. Significant for recent urinary tract infection. 2. History of multiple drug-resistant Klebsiella urinary tract infection. 3. History of anoxic encephalopathy. 4. Status post vent and PEG placement. 5. Seizure disorder. 6. Breast cancer. 7. Morbid obesity. 8. CHF. 9. Hypertension. 10. . 11. Diabetes. 12. Anemia. MEDICATIONS: Vancomycin and Zosyn. ALLERGIES: Peanuts. FAMILY HISTORY: Noncontributory. REVIEW OF SYSTEMS: Unobtainable. SOCIAL HISTORY: The patient lives in a prison. PHYSICAL EXAMINATION: VITAL SIGNS: Temperature 98, blood pressure 170/56, pulse 91, respiratory rate 18, and T-max 99.9. HEENT: Mild pale conjunctivae. No icterus. CHEST: Coarse breathing sounds. HEART: S1 and S2. ABDOMEN: Soft. Obese. PEG tube in place. EXTREMITIES: No cyanosis. NEUROLOGIC: Awake and nonverbal. LABORATORY AND DIAGNOSTIC DATA: White blood cells today is 8.8, hemoglobin 9.7, and platelets 165. UA, 5 to 10 white blood cells. BUN 7 and creatinine 0.5. AST 26 and alkaline phosphatase 424. ASSESSMENT: The patient is a 77-year-old female with, 1. Fever. 2. Leukocytosis, has improved. 3. Rule out urinary tract infection. 4. Transaminitis and elevated alkaline phosphatase, rule out biliary disease. 5. Chest x-ray showed CHF. 6. Rule out bacteremia. PLAN: 1. We will continue the patient on IV vancomycin and Zosyn. 2. Monitor CBC and BMP. 3. Monitor cultures (blood, urine, and sputum). 4. Stool for C. diff. 5. Monitor chest x-ray. 6. Ultrasound of the abdomen, evaluation of biliary tract. 7. Based on the patient's clinical course and laboratories, we will do further recommendations. 8. The patient's hepatitis panel back in 2017 was unremarkable. Thank you, Dr. Rodriguez, for allowing me to participate in the care of this patient. I will follow the patient with you during this admission. Delmer Madera M.D. DR: DAYO JOB#: [id number] CC:
[2017-11-10 08:00] VITALS: BP 117/65
[2017-11-10] MEDS: Pantoprazole Inj IV SCH (08:57)
[2017-11-10] MEDS: levETIRAcetam 500mg/5ml Liquid GT SCH ×2 (08:57→21:08)
[2017-11-10] MEDS: Heparin 5000 units/ml inj SUBQ SCH ×2 (09:00→21:10)
--- NOTE | 2017-11-10 10:27 | Diagnostic Imaging Report ---
APPROVED REPORT CPT Code: 14132 Present Symptoms Comments: R/O DVT BILATERAL: Imaging reveals a patent deep venous system bilaterally. There is no evidence of thrombus within the femoral, popliteal or tibial segments. The greater saphenous veins are also within normal limits. Doppler indicates normal spontaneous flow within these segments.
--- NOTE | 2017-11-10 11:07 | Diagnostic Imaging Report ---
Indication: Reason For Exam: DYSPNEA Technique: One view of the chest Comparison: 11/08/2017 Findings: Better inspiration currently. Right basilar infiltrate persists, probably unchanged allowing for differences in degree of inspiration. There is some atelectasis at the left lung base and in the left perihilar region, decreased from the previous exam. Pleural spaces are clear. Interstitial congestion appears slightly improved Tracheostomy is again demonstrated. The heart remains borderline enlarged Impression: Persistent right basilar infiltrate, over 2 days Better aeration, with decreased left basilar atelectasis Slightly improved interstitial congestion
--- NOTE | 2017-11-10 11:12 | Pulmonology Progress Note ---
Assessment/Plan Problems: (1) Acute and chronic respiratory failure (2) Sepsis (3) Seizure disorder (4) Vegetative state (5) Functional paraplegia (6) H/O: CVA (cerebrovascular accident) (7) HTN (hypertension) Respiratory: monitor respiratory rate, adjust FIO2, CXR Cardiac: continue to monitor HR/BP Renal: F/U I&O, keep IV fluid Infectious Disease: check cultures Gastrointestinal: continue feedings/current rate, hold feedings Endocrine: monitor blood sugar, check TSH, continue sliding scale insulin Hematologic: transfuse if hgb<8.5 Neurologic: PRN Ativan, PRN Morphine, keep patient comfortable Affect: PRN ativan Prophylaxis: Protonix Time Spent (Minutes): 30 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, 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 Discussed with: nurses, consultants, case finisher Subjective ROS Limited/Unobtainable: No Constitutional: Reports: no symptoms Respiratory: Reports: no symptoms Allergies: Coded Allergies: PEANUT (Verified Allergy, Unknown, 09/22/16) Objective Last 24 Hour Vital Signs Date Time Temp Pulse Resp B/P (MAP) Pulse Ox O2 Delivery O2 Flow Rate FiO2 11/10/17 10:32 86 14 40 11/10/17 08:38 92 21 40 11/10/17 07:00 84 25 40 11/10/17 05:13 88 21 40 11/10/17 04:00 82 11/10/17 04:00 40 11/10/17 04:00 98.5 89 18 116/60 100 Mechanical Ventilator 40 98.5 11/10/17 02:55 84 18 40 11/10/17 01:15 92 18 40 11/10/17 00:00 98.6 88 17 111/63 98 Mechanical Ventilator 40 98.6 11/10/17 00:00 40 11/10/17 00:00 83 11/09/17 22:46 88 15 40 11/09/17 20:52 90 18 40 11/09/17 20:00 40 11/09/17 20:00 98.9 91 18 117/56 98 Mechanical Ventilator 40 98.9 11/09/17 20:00 88 11/09/17 19:22 86 20 40 11/09/17 16:41 90 14 40 11/09/17 16:00 97.9 87 20 91/52 100 Mechanical Ventilator 40 97.9 11/09/17 16:00 90 11/09/17 16:00 40 11/09/17 15:01 83 12 40 11/09/17 12:46 85 16 40 11/09/17 12:00 98.1 83 19 123/68 92 Mechanical Ventilator 40 98.1 11/09/17 12:00 89 11/09/17 12:00 40 Intake and Output 11/09/17 11/10/17 19:00 07:00 Intake Total 1727.041 ml 1589.8807 ml Output Total 400 ml 250 ml Balance 1327.041 ml 1339.8807 ml Intake Free Water 30 ml 30 ml IV Total 1277.041 ml 1299.8807 ml Tube Feeding 360 ml 210 ml Other 60 ml 50 ml Output Urine Total 400 ml 250 ml # Voids 1 # Bowel Movements 5 2 General Appearance: WD/WN HEENT: normocephalic, atraumatic Respiratory/Chest: chest wall non-tender, lungs clear Breasts: no masses Cardiovascular: normal peripheral pulses Abdomen: normal bowel sounds, soft, non tender, no scars Extremities: no cyanosis Skin: no rash, no lesions Microbiology Date/Time Source Procedure Growth Status 11/08/17 13:05 Blood Blood Culture - Preliminary Staphylococcus Species Resulted 11/08/17 13:05 Blood Blood Culture - Preliminary Resulted 11/08/17 17:50 Nasal Nares MRSA Culture - Final NO METHICILLIN RESISTANT STAPH AUREUS... Complete 11/09/17 21:45 Stool Clostridium difficile Toxin Assay - Final Complete 11/08/17 16:14 Urine,Clean Catch Urine Culture - Preliminary Streptococcus Species Resulted 11/08/17 17:55 Rectum VRE Culture - Final Enterococcus Faecium - Vre Complete Laboratory Tests 11/09/17 17:45: Vancomycin Level Trough 5.8 11/10/17 04:05: White Blood Count 6.0, Red Blood Count 2.65L, Hemoglobin 8.7L, Hematocrit 26.1L , Mean Corpuscular Volume 98, Mean Corpuscular Hemoglobin 32.7H, Mean Corpuscular Hemoglobin Concent 33.3, Red Cell Distribution Width 15.8H, Platelet Count 191, Mean Platelet Volume 9.9, Neutrophils (%) (Auto) 69.3, Lymphocytes (%) (Auto) 15.3L, Monocytes (%) (Auto) 8.8, Eosinophils (%) (Auto) 5.7H, Basophils (%) (Auto) 0.9, Sodium Level 140, Potassium Level 3.5, Chloride Level 105, Carbon Dioxide Level 29, Anion Gap 6, Blood Urea Nitrogen 6L, Creatinine 0.4L, Estimat Glomerular Filtration Rate , Glucose Level 94, Calcium Level 8.9, Total Bilirubin 0.3, Aspartate Amino Transf (AST/SGOT) 28, Alanine Aminotransferase (ALT/SGPT) 24, Alkaline Phosphatase 260H, Pro-B-Type Natriuretic Peptide 233H, Total Protein 7.0, Albumin 2.1L, Globulin 4.9, Albumin /Globulin Ratio 0.4L Current Medications Medications (Trade) Dose Ordered Sig/Boubacar Route PRN Reason Start Time Stop Time Status Last Admin Dose Admin Acetaminophen (Tylenol) 650 mg Q4H PRN ORAL T>100.5 11/08/17 15:30 12/08/17 15:29 Albuterol/ Ipratropium (Albuterol/ Ipratropium) 3 ml Q4H PRN HHN Shortness of Breath 11/08/17 15:30 11/13/17 15:29 Dextrose (Dextrose 50%) STAT PRN IV Hypoglycemia 11/08/17 15:30 12/08/17 15:29 Heparin Sodium (Porcine) (Heparin 5000 units/ml) 5,000 units EVERY 12 HOURS SUBQ 11/08/17 21:00 12/08/17 20:59 11/10/17 09:00 Levetiracetam (Keppra) 1,500 mg Q12HR GT 11/08/17 21:00 12/08/17 20:59 11/10/17 08:57 Levothyroxine Sodium (Synthroid) 50 mcg DAILY@0600 GT 11/10/17 06:00 12/10/17 05:59 11/10/17 05:07 Lorazepam (Ativan 2mg/ml 1ml) 2 mg Q2H PRN IV For Anxiety 11/08/17 15:30 11/15/17 15:29 Morphine Sulfate (Morphine Sulfate) 4 mg Q4H PRN IVP Severe Pain (Pain Scale 7-10) 11/08/17 15:30 11/15/17 15:29 Ondansetron HCl (Zofran) 4 mg Q6H PRN IVP Nausea & Vomiting 11/08/17 15:30 12/08/17 15:29 Pantoprazole (Protonix) 40 mg DAILY IV 11/09/17 09:00 12/09/17 08:59 11/10/17 08:57 Phenytoin (Dilantin) 200 mg Q8HR GT 11/08/17 22:00 12/08/17 21:59 11/10/17 05:11 Piperacillin Sod/ Tazobactam Sod 3.375 gm/Sodium Chloride 110 ml @ 27.5 mls/hr Q8HR@0000,1000,1800 IVPB 11/09/17 18:00 11/16/17 17:59 11/10/17 09:03 Polyethylene Glycol (Miralax) 17 gm DAILYPRN PRN ORAL Constipation 11/08/17 15:30 12/08/17 15:29 Sodium Chloride 1,000 ml @ 100 mls/hr Q10H IV 11/09/17 02:00 12/09/17 01:59 11/10/17 05:00 Vancomycin HCl (Vanco rx to dose) 1 ea DAILY PRN MISC . 11/08/17 15:45 12/08/17 15:44 Vancomycin HCl 1 gm/Dextrose 275 ml @ 183.708 mls/hr Q12H IVPB 11/09/17 21:30 11/14/17 23:59 11/09/17 21:34 ANGELA DAVILA Nov 10, 2017 11:12
[2017-11-10] MEDS: Vancomycin 1gm/D5W 275ml IVPB SCH ×4 (11:46→21:11)
[2017-11-10 12:00] VITALS: BP 108/58
[2017-11-10 16:00] VITALS: BP 106/50
--- NOTE | 2017-11-10 17:59 | Infectious Diseases Prog Note ---
Assessment/Plan Assessment/Plan ASSESSMENT: The patient is a 77-year-old female with, bacteremia : GPC Ucx : GPC Fever. Leukocytosis, has improved. Rule out urinary tract infection. Transaminitis and elevated alkaline phosphatase, hepatitis panel : neg (2017 ) Ro biliary disease. ? Pneum CXray : Persistent right basilar infiltrate, over 2 days Rule out bacteremia. History of multiple drug-resistant Klebsiella UTI History of anoxic encephalopathy. sp trach vent and PEG placement Seizure disorder Breast cancer Morbid obesity CHF HTN Diabetes Anemia PLAN: continue the patient on IV vancomycin and Zosyn d# 2 Monitor CBC and BMP Monitor cultures (blood, urine, and sputum). Stool for C. diff. Monitor chest x-ray. Ultrasound of the abdomen, evaluation of biliary tract Subjective Constitutional: Denies: no symptoms, fever, chills, fatigue, anorexia, drenching sweats, other Allergies: Coded Allergies: PEANUT (Verified Allergy, Unknown, 09/22/16) Objective Vital Signs Last 24 Hour Vital Signs Date Time Temp Pulse Resp B/P (MAP) Pulse Ox O2 Delivery O2 Flow Rate FiO2 11/10/17 16:33 86 16 40 11/10/17 16:00 40 11/10/17 16:00 98.4 82 18 106/50 98 Mechanical Ventilator 40 98.4 11/10/17 14:48 87 17 40 11/10/17 12:57 89 15 40 11/10/17 12:00 98.1 87 14 108/58 98 Mechanical Ventilator 40 98.1 11/10/17 12:00 85 11/10/17 12:00 40 11/10/17 10:32 86 14 40 11/10/17 08:38 92 21 40 11/10/17 08:00 98.1 85 18 117/65 100 Mechanical Ventilator 40 98.1 11/10/17 08:00 40 11/10/17 08:00 84 11/10/17 07:00 84 25 40 11/10/17 05:13 88 21 40 11/10/17 04:00 82 11/10/17 04:00 40 11/10/17 04:00 98.5 89 18 116/60 100 Mechanical Ventilator 40 98.5 11/10/17 02:55 84 18 40 11/10/17 01:15 92 18 40 11/10/17 00:00 98.6 88 17 111/63 98 Mechanical Ventilator 40 98.6 3/9/18 00:00 40 11/10/17 00:00 83 11/09/17 22:46 88 15 40 11/09/17 20:52 90 18 40 11/09/17 20:00 40 11/09/17 20:00 98.9 91 18 117/56 98 Mechanical Ventilator 40 98.9 11/09/17 20:00 88 11/09/17 19:22 86 20 40 Height (Feet): 5 Height (Inches): 4.00 Weight (Pounds): 236 HEENT: anicteric Respiratory/Chest: no respiratory distress Cardiovascular: regular rhythm Abdomen: soft, non tender Microbiology Date/Time Source Procedure Growth Status 11/08/17 13:05 Blood Blood Culture - Preliminary Staphylococcus Species Resulted 11/08/17 13:05 Blood Blood Culture - Preliminary Resulted 11/09/17 04:30 Sputum Gram Stain - Final Resulted 11/09/17 04:30 Sputum Sputum Culture Pending Resulted 11/08/17 17:50 Nasal Nares MRSA Culture - Final NO METHICILLIN RESISTANT STAPH AUREUS... Complete 11/09/17 21:45 Stool Clostridium difficile Toxin Assay - Final Complete 11/08/17 16:14 Urine,Clean Catch Urine Culture - Preliminary Streptococcus Species Resulted 11/08/17 17:55 Rectum VRE Culture - Final Enterococcus Faecium - Vre Complete Laboratory Tests Test 11/10/17 04:05 White Blood Count 6.0 K/UL (4.8-10.8) Red Blood Count 2.65 M/UL (4.20-5.40) L Hemoglobin 8.7 G/DL (12.0-16.0) L Hematocrit 26.1 % (37.0-47.0) L Mean Corpuscular Volume 98 FL (80-99) Mean Corpuscular Hemoglobin 32.7 PG (27.0-31.0) H Mean Corpuscular Hemoglobin Concent 33.3 G/DL (32.0-36.0) Red Cell Distribution Width 15.8 % (11.6-14.8) H Platelet Count 191 K/UL (150-450) Mean Platelet Volume 9.9 FL (6.5-10.1) Neutrophils (%) (Auto) 69.3 % (45.0-75.0) Lymphocytes (%) (Auto) 15.3 % (20.0-45.0) L Monocytes (%) (Auto) 8.8 % (1.0-10.0) Eosinophils (%) (Auto) 5.7 % (0.0-3.0) H Basophils (%) (Auto) 0.9 % (0.0-2.0) Sodium Level 140 MMOL/L (136-145) Potassium Level 3.5 MMOL/L (3.5-5.1) Chloride Level 105 MMOL/L (98-107) Carbon Dioxide Level 29 MMOL/L (21-32) Anion Gap 6 mmol/L (5-15) Blood Urea Nitrogen 6 mg/dL (7-18) L Creatinine 0.4 MG/DL (0.55-1.30) L Estimat Glomerular Filtration Rate mL/min (>60) Glucose Level 94 MG/DL (74-106) Calcium Level 8.9 MG/DL (8.5-10.1) Total Bilirubin 0.3 MG/DL (0.2-1.0) Aspartate Amino Transf (AST/SGOT) 28 U/L (15-37) Alanine Aminotransferase (ALT/SGPT) 24 U/L (12-78) Alkaline Phosphatase 260 U/L (46-116) H Pro-B-Type Natriuretic Peptide 233 pg/mL (0-125) H Total Protein 7.0 G/DL (6.4-8.2) Albumin 2.1 G/DL (3.4-5.0) L Globulin 4.9 g/dL Albumin/Globulin Ratio 0.4 (1.0-2.7) L Current Medications Medications (Trade) Dose Ordered Sig/Boubacar Route PRN Reason Start Time Stop Time Status Last Admin Dose Admin Acetaminophen (Tylenol) 650 mg Q4H PRN ORAL T>100.5 11/08/17 15:30 12/08/17 15:29 Albuterol/ Ipratropium (Albuterol/ Ipratropium) 3 ml Q4H PRN HHN Shortness of Breath 11/08/17 15:30 11/13/17 15:29 Dextrose (Dextrose 50%) STAT PRN IV Hypoglycemia 11/08/17 15:30 12/08/17 15:29 Heparin Sodium (Porcine) (Heparin 5000 units/ml) 5,000 units EVERY 12 HOURS SUBQ 11/08/17 21:00 4/6/18 20:59 11/10/17 09:00 Levetiracetam (Keppra) 1,500 mg Q12HR GT 11/08/17 21:00 12/08/17 20:59 11/10/17 08:57 Levothyroxine Sodium (Synthroid) 50 mcg DAILY@0600 GT 11/10/17 06:00 12/10/17 05:59 11/10/17 05:07 Lorazepam (Ativan 2mg/ml 1ml) 2 mg Q2H PRN IV For Anxiety 11/08/17 15:30 11/15/17 15:29 Morphine Sulfate (Morphine Sulfate) 4 mg Q4H PRN IVP Severe Pain (Pain Scale 7-10) 11/08/17 15:30 11/15/17 15:29 Ondansetron HCl (Zofran) 4 mg Q6H PRN IVP Nausea & Vomiting 11/08/17 15:30 12/08/17 15:29 Pantoprazole (Protonix) 40 mg DAILY IV 11/09/17 09:00 12/09/17 08:59 11/10/17 08:57 Phenytoin (Dilantin) 200 mg Q8HR GT 11/08/17 22:00 12/08/17 21:59 11/10/17 14:04 Piperacillin Sod/ Tazobactam Sod 3.375 gm/Sodium Chloride 110 ml @ 27.5 mls/hr Q8HR@0000,1000,1800 IVPB 11/09/17 18:00 11/16/17 17:59 11/10/17 17:30 Polyethylene Glycol (Miralax) 17 gm DAILYPRN PRN ORAL Constipation 11/08/17 15:30 12/08/17 15:29 Sodium Chloride 1,000 ml @ 100 mls/hr Q10H IV 11/09/17 02:00 12/09/17 01:59 11/10/17 05:00 Vancomycin HCl (Vanco rx to dose) 1 ea DAILY PRN MISC . 11/08/17 15:45 12/08/17 15:44 Vancomycin HCl 1 gm/Dextrose 275 ml @ 183.708 mls/hr Q12H IVPB 11/09/17 21:30 11/14/17 23:59 11/10/17 11:46 HUNG GARCIA M.D. Nov 10, 2017 17:59
[2017-11-10 20:00] VITALS: BP 123/60
[2017-11-11] VITALS: BP 120/60
[2017-11-11] MEDS: Zoysn 3.37gm in NS 100ML IVPB SCH ×4 (00:13→23:48)
[2017-11-11] MEDS: NS w/KCl 20mEq 1,000 ML IV SCH ×3 (03:18→23:49)
[2017-11-11 04:00] VITALS: BP 110/55
[2017-11-11 05:11] LABS: EOSINOPHILS % (AUTO) 7.6 % (0.0-3.0); HEMATOCRIT 27.4 % (37.0-47.0); HEMOGLOBIN 9.1 G/DL (12.0-16.0); LYMPHOCYTES % (AUTO) 22.8 % (20.0-45.0); MEAN CORPUSCULAR VOLUME 98 FL (80-99); MONOCYTES % (AUTO) 10.9 % (1.0-10.0); NEUTROPHILS % (AUTO) 57.7 % (45.0-75.0); PLATELET COUNT 190 K/UL (150-450); RED BLOOD COUNT 2.81 M/UL (4.20-5.40); RED CELL DISTRIBUTION WIDTH 15.6 % (11.6-14.8); WHITE BLOOD COUNT 5.2 K/UL (4.8-10.8)
[2017-11-11 05:56] LABS: ALANINE AMINOTRANSFERASE 27 U/L (12-78); ALBUMIN/GLOBULIN RATIO 0.4 (1.0-2.7); ALKALINE PHOSPHATASE 247 U/L (46-116); ANION GAP 4 mmol/L (5-15); ASPARTATE AMINO TRANSFERASE 33 U/L (15-37); BILIRUBIN,TOTAL 0.2 MG/DL (0.2-1.0); BLOOD UREA NITROGEN 4 mg/dL (7-18); CARBON DIOXIDE 30 MMOL/L (21-32); CHLORIDE 106 MMOL/L (98-107); CREATININE 0.5 MG/DL (0.55-1.30); POTASSIUM 2.9 MMOL/L (3.5-5.1); SODIUM 140 MMOL/L (136-145)
[2017-11-11] MEDS: Phenytoin Susp 100mg/4ml GT SCH ×3 (05:57→21:33)
[2017-11-11 08:00] VITALS: BP 108/55
[2017-11-11] MEDS: levETIRAcetam 500mg/5ml Liquid GT SCH ×2 (08:23→21:26)
[2017-11-11] MEDS: Pantoprazole Inj IV SCH (08:23)
--- NOTE | 2017-11-11 08:25 | Pulmonolgy Critical Care Note ---
Critical Care - Asmt/Plan Problems: (1) Acute and chronic respiratory failure (2) Sepsis (3) Vegetative state (4) Functional paraplegia (5) Status post tracheostomy (6) H/O: CVA (cerebrovascular accident) (7) Anoxic brain damage syndrome Respiratory: monitor respiratory rate, adjust FIO2, CXR Cardiac: continue to monitor HR/BP Renal: F/U I&O, keep IV fluid Infectious Disease: check cultures Gastrointestinal: continue feedings/current rate Endocrine: monitor blood sugar, continue sliding scale insulin Hematologic: monitor H/H, transfuse if hgb<8.5 Neurologic: keep patient comfortable Time Spent (Minutes): 40 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: cardio Discussed with: nurses, consultants, 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 - Objective Last 24 Hour Vital Signs Date Time Temp Pulse Resp B/P (MAP) Pulse Ox O2 Delivery O2 Flow Rate FiO2 11/11/17 07:02 78 15 40 11/11/17 04:58 73 15 40 11/11/17 04:00 97.9 78 20 110/55 99 Mechanical Ventilator 40 97.9 11/11/17 04:00 79 11/11/17 04:00 40 11/11/17 03:13 75 13 40 11/11/17 01:30 86 23 40 11/11/17 00:00 69 11/11/17 00:00 40 11/11/17 00:00 98.2 82 20 120/60 100 Mechanical Ventilator 40 98.2 11/10/17 22:44 81 18 40 11/10/17 20:37 80 15 40 11/10/17 20:00 84 11/10/17 20:00 40 11/10/17 20:00 98.2 88 20 123/60 98 Mechanical Ventilator 40 98.2 11/10/17 19:13 83 20 40 11/10/17 16:33 86 16 40 11/10/17 16:00 40 11/10/17 16:00 85 11/10/17 16:00 98.4 82 18 106/50 98 Mechanical Ventilator 40 98.4 11/10/17 14:48 87 17 40 11/10/17 12:57 89 15 40 11/10/17 12:00 98.1 87 14 108/58 98 Mechanical Ventilator 40 98.1 11/10/17 12:00 85 11/10/17 12:00 40 11/10/17 10:32 86 14 40 11/10/17 08:38 92 21 40 Status: sedated Condition: critical HEENT: atraumatic Lungs: clear Heart: HR/BP unstable, regular Abdomen: feeding tube Extremities: edema Decubiti: location Micro: Microbiology Date/Time Source Procedure Growth Status 11/08/17 13:05 Blood Blood Culture - Final Staphylococcus Haemolyticus Complete 11/08/17 13:05 Blood Blood Culture - Final Staphylococcus Sp Coag Neg Complete 11/09/17 04:30 Sputum Gram Stain - Final Resulted 11/09/17 04:30 Sputum Culture - Preliminary Gram Negative Bacillus 1 Resulted 11/08/17 17:50 Nasal Nares MRSA Culture - Final NO METHICILLIN RESISTANT STAPH AUREUS... Complete 11/09/17 21:45 Stool Clostridium difficile Toxin Assay - Final Complete 11/08/17 16:14 Urine,Clean Catch Urine Culture - Final Enterococcus Faecium - Vre Complete 11/08/17 17:55 Rectum VRE Culture - Final Enterococcus Faecium - Vre Complete Critical Care - Subjective ROS Limited/Unobtainable: Yes FI02: 40 Vent Support Breath Rate: 12 Vent Support Mode: AC Vent Tidal Volume: 600 Sputum Amount: Moderate PEEP: 5.0 PIP: 27 I&O: Intake and Output 11/10/17 11/11/17 19:00 07:00 Intake Total 520 ml 1905.0 ml Output Total 500 ml Balance 520 ml 1405.0 ml IV Total 100 ml 1665.0 ml Tube Feeding 240 ml 240 ml Other 180 ml Output Urine Total 500 ml # Bowel Movements 1 2 CXR: bibasilar infiltrate Labs: Laboratory Tests Test 11/11/17 03:45 White Blood Count 5.2 K/UL (4.8-10.8) Red Blood Count 2.81 M/UL (4.20-5.40) L Hemoglobin 9.1 G/DL (12.0-16.0) L Hematocrit 27.4 % (37.0-47.0) L Mean Corpuscular Volume 98 FL (80-99) Mean Corpuscular Hemoglobin 32.4 PG (27.0-31.0) H Mean Corpuscular Hemoglobin Concent 33.3 G/DL (32.0-36.0) Red Cell Distribution Width 15.6 % (11.6-14.8) H Platelet Count 190 K/UL (150-450) Mean Platelet Volume 9.5 FL (6.5-10.1) Neutrophils (%) (Auto) 57.7 % (45.0-75.0) Lymphocytes (%) (Auto) 22.8 % (20.0-45.0) Monocytes (%) (Auto) 10.9 % (1.0-10.0) H Eosinophils (%) (Auto) 7.6 % (0.0-3.0) H Basophils (%) (Auto) 1.0 % (0.0-2.0) Sodium Level 140 MMOL/L (136-145) Potassium Level 2.9 MMOL/L (3.5-5.1) L Chloride Level 106 MMOL/L (98-107) Carbon Dioxide Level 30 MMOL/L (21-32) Anion Gap 4 mmol/L (5-15) L Blood Urea Nitrogen 4 mg/dL (7-18) L Creatinine 0.5 MG/DL (0.55-1.30) L Estimat Glomerular Filtration Rate mL/min (>60) Glucose Level 96 MG/DL (74-106) Calcium Level 9.0 MG/DL (8.5-10.1) Total Bilirubin 0.2 MG/DL (0.2-1.0) Aspartate Amino Transf (AST/SGOT) 33 U/L (15-37) Alanine Aminotransferase (ALT/SGPT) 27 U/L (12-78) Alkaline Phosphatase 247 U/L (46-116) H Pro-B-Type Natriuretic Peptide 324 pg/mL (0-125) H Total Protein 6.7 G/DL (6.4-8.2) Albumin 2.0 G/DL (3.4-5.0) L Globulin 4.7 g/dL Albumin/Globulin Ratio 0.4 (1.0-2.7) L ANGELA DAVILA Nov 11, 2017 08:25
[2017-11-11] MEDS: Heparin 5000 units/ml inj SUBQ SCH ×2 (08:36→21:28)
[2017-11-11] MEDS: Vancomycin 1gm/D5W 275ml IVPB SCH ×2 (10:27)
--- NOTE | 2017-11-11 10:29 | Diagnostic Imaging Report ---
Indication: Shortness of breath Technique: XRAY Chest 1v Comparison: 11/10/2017 Findings: Tracheostomy is again present. Cardiomediastinal silhouette is stable. Bilateral interstitial opacities are again noted. Osseous structures are stable. Impression: No significant change from 11/10/2017.
[2017-11-11 12:00] VITALS: BP 118/59
[2017-11-11 16:00] VITALS: BP 114/60
[2017-11-11] MEDS ORDERED: Tubing IV Secondary IV ONE (16:23)
[2017-11-11] MEDS ORDERED: NS 275ml ONE (16:23)
--- NOTE | 2017-11-11 16:42 | Infectious Diseases Prog Note ---
Assessment/Plan Assessment/Plan ASSESSMENT: The patient is a 77-year-old female with, bacteremia : Cons ? contaminant Ucx : VRE 100K Fever, SP Leukocytosis,SP Rule out urinary tract infection. Transaminitis and elevated alkaline phosphatase, hepatitis panel : neg (2017 ) Ro biliary disease. Pneum Scx : GNR CXray : Persistent right basilar infiltrate, over 2 days History of multiple drug-resistant Klebsiella UTI History of anoxic encephalopathy. sp trach vent and PEG placement Seizure disorder Breast cancer Morbid obesity CHF HTN Diabetes Anemia PLAN: continue the patient on IV Zosyn d# 3/ 7 , add Zyvox d# 1 / 5 and DC vancomycin d# 3 Monitor CBC and BMP Monitor cultures (blood, sputum). repeat BlCx Stool for C. diff. Monitor chest x-ray. Ultrasound of the abdomen, Subjective Allergies: Coded Allergies: PEANUT (Verified Allergy, Unknown, 09/22/16) Subjective afebrile Objective Vital Signs Last 24 Hour Vital Signs Date Time Temp Pulse Resp B/P (MAP) Pulse Ox O2 Delivery O2 Flow Rate FiO2 11/11/17 16:00 40 11/11/17 16:00 78 11/11/17 15:17 96 22 40 11/11/17 13:09 81 21 40 11/11/17 12:00 97.9 76 16 118/59 96 Mechanical Ventilator 40 97.9 11/11/17 12:00 76 11/11/17 12:00 40 11/11/17 11:30 85 23 40 11/11/17 09:05 86 25 40 11/11/17 08:00 40 11/11/17 08:00 64 11/11/17 08:00 98.0 76 20 108/55 99 Mechanical Ventilator 40 98.0 11/11/17 07:02 78 15 40 11/11/17 04:58 73 15 40 11/11/17 04:00 97.9 78 20 110/55 99 Mechanical Ventilator 40 97.9 11/11/17 04:00 79 11/11/17 04:00 40 11/11/17 03:13 75 13 40 11/11/17 01:30 86 23 40 11/11/17 00:00 69 11/11/17 00:00 40 11/11/17 00:00 98.2 82 20 120/60 100 Mechanical Ventilator 40 98.2 11/10/17 22:44 81 18 40 11/10/17 20:37 80 15 40 11/10/17 20:00 84 11/10/17 20:00 40 11/10/17 20:00 98.2 88 20 123/60 98 Mechanical Ventilator 40 98.2 11/10/17 19:13 83 20 40 Height (Feet): 5 Height (Inches): 4.00 Weight (Pounds): 253 HEENT: anicteric Respiratory/Chest: normal breath sounds Cardiovascular: regular rhythm Abdomen: soft, non tender Microbiology Date/Time Source Procedure Growth Status 11/09/17 04:30 Sputum Gram Stain - Final Resulted 11/09/17 04:30 Sputum Culture - Preliminary Gram Negative Bacillus 1 Resulted 11/08/17 17:50 Nasal Nares MRSA Culture - Final NO METHICILLIN RESISTANT STAPH AUREUS... Complete 11/09/17 21:45 Stool Clostridium difficile Toxin Assay - Final Complete 11/08/17 17:55 Rectum VRE Culture - Final Enterococcus Faecium - Vre Complete Laboratory Tests Test 11/11/17 03:45 11/11/17 08:45 White Blood Count 5.2 K/UL (4.8-10.8) Red Blood Count 2.81 M/UL (4.20-5.40) L Hemoglobin 9.1 G/DL (12.0-16.0) L Hematocrit 27.4 % (37.0-47.0) L Mean Corpuscular Volume 98 FL (80-99) Mean Corpuscular Hemoglobin 32.4 PG (27.0-31.0) H Mean Corpuscular Hemoglobin Concent 33.3 G/DL (32.0-36.0) Red Cell Distribution Width 15.6 % (11.6-14.8) H Platelet Count 190 K/UL (150-450) Mean Platelet Volume 9.5 FL (6.5-10.1) Neutrophils (%) (Auto) 57.7 % (45.0-75.0) Lymphocytes (%) (Auto) 22.8 % (20.0-45.0) Monocytes (%) (Auto) 10.9 % (1.0-10.0) H Eosinophils (%) (Auto) 7.6 % (0.0-3.0) H Basophils (%) (Auto) 1.0 % (0.0-2.0) Sodium Level 140 MMOL/L (136-145) Potassium Level 2.9 MMOL/L (3.5-5.1) L Chloride Level 106 MMOL/L (98-107) Carbon Dioxide Level 30 MMOL/L (21-32) Anion Gap 4 mmol/L (5-15) L Blood Urea Nitrogen 4 mg/dL (7-18) L Creatinine 0.5 MG/DL (0.55-1.30) L Estimat Glomerular Filtration Rate mL/min (>60) Glucose Level 96 MG/DL (74-106) Calcium Level 9.0 MG/DL (8.5-10.1) Magnesium Level 2.0 MG/DL (1.8-2.4) Total Bilirubin 0.2 MG/DL (0.2-1.0) Aspartate Amino Transf (AST/SGOT) 33 U/L (15-37) Alanine Aminotransferase (ALT/SGPT) 27 U/L (12-78) Alkaline Phosphatase 247 U/L (46-116) H Pro-B-Type Natriuretic Peptide 324 pg/mL (0-125) H Total Protein 6.7 G/DL (6.4-8.2) Albumin 2.0 G/DL (3.4-5.0) L Globulin 4.7 g/dL Albumin/Globulin Ratio 0.4 (1.0-2.7) L Vancomycin Level Trough 13.4 ug/mL (5.0-12.0) H Current Medications Medications (Trade) Dose Ordered Sig/Boubacar Route PRN Reason Start Time Stop Time Status Last Admin Dose Admin Acetaminophen (Tylenol) 650 mg Q4H PRN ORAL T>100.5 11/08/17 15:30 12/08/17 15:29 Albuterol/ Ipratropium (Albuterol/ Ipratropium) 3 ml Q4H PRN HHN Shortness of Breath 11/08/17 15:30 11/13/17 15:29 Dextrose (Dextrose 50%) STAT PRN IV Hypoglycemia 11/08/17 15:30 12/08/17 15:29 Heparin Sodium (Porcine) (Heparin 5000 units/ml) 5,000 units EVERY 12 HOURS SUBQ 11/08/17 21:00 12/08/17 20:59 11/11/17 08:36 Levetiracetam (Keppra) 1,500 mg Q12HR GT 11/08/17 21:00 12/08/17 20:59 11/11/17 08:23 Levothyroxine Sodium (Synthroid) 50 mcg DAILY@0600 GT 11/10/17 06:00 12/10/17 05:59 11/11/17 05:57 Lorazepam (Ativan 2mg/ml 1ml) 2 mg Q2H PRN IV For Anxiety 11/08/17 15:30 11/15/17 15:29 Morphine Sulfate (Morphine Sulfate) 4 mg Q4H PRN IVP Severe Pain (Pain Scale 7-10) 11/08/17 15:30 11/15/17 15:29 Ondansetron HCl (Zofran) 4 mg Q6H PRN IVP Nausea & Vomiting 11/08/17 15:30 12/08/17 15:29 Pantoprazole (Protonix) 40 mg DAILY IV 11/09/17 09:00 12/09/17 08:59 11/11/17 08:23 Phenytoin (Dilantin) 200 mg Q8HR GT 11/08/17 22:00 12/08/17 21:59 11/11/17 14:51 Piperacillin Sod/ Tazobactam Sod 3.375 gm/Sodium Chloride 110 ml @ 27.5 mls/hr Q8HR@0000,1000,1800 IVPB 11/09/17 18:00 11/16/17 17:59 11/11/17 10:43 Polyethylene Glycol (Miralax) 17 gm DAILYPRN PRN ORAL Constipation 11/08/17 15:30 12/08/17 15:29 Sodium Chloride 1,000 ml @ 100 mls/hr Q10H IV 11/09/17 02:00 12/09/17 01:59 11/11/17 14:52 Vancomycin HCl (Vanco rx to dose) 1 ea DAILY PRN MISC . 11/08/17 15:45 12/08/17 15:44 Vancomycin HCl 1 gm/Dextrose 275 ml @ 183.708 mls/hr Q12H IVPB 11/09/17 21:30 11/14/17 23:59 11/11/17 10:27 HUNG GARCIA M.D. Nov 11, 2017 16:42
--- NOTE | 2017-11-11 19:49 | Wound Care Consultation ---
Wound Assessment Wound Assessment : Wound Number: 1 Wound Present on Admission: Yes New Wound: No Status Change of Wound: No Wound Location Body Site Modif: left Wound Location Body Site: arm Wound Type: blister Jose Raul Test: Does not Jose Raul Wound Length: 1.0 Wound Width: 1.0 Wound Drainage Amount: None Wound Drainage Odor: None/Absent Tissue Surrounding Wound: Intact Wound Comment #1 Intact blisters on left arm #2 Sacral full thickness scar tissue #3 Scar tissue on Left and right ischial tuberosity extending to left and right posterior thigh Recommendation -Local wound care per protocol -Keep clean and dry -Offload both heels -Turn and reposition -Optimize nutrition -Low air loss mattress -Heel protector on both heels -Assess and f/u accordingly for any changes ELPIDIO LIMA RN Nov 11, 2017 19:49
[2017-11-11 20:00] VITALS: BP 117/56
[2017-11-12] VITALS: BP 111/61
[2017-11-12 04:00] VITALS: BP 103/73
[2017-11-12 05:20] LABS: EOSINOPHILS % (AUTO) 7.9 % (0.0-3.0); HEMATOCRIT 27.5 % (37.0-47.0); HEMOGLOBIN 9.1 G/DL (12.0-16.0); MEAN CORPUSCULAR VOLUME 99 FL (80-99); MONOCYTES % (AUTO) 9.9 % (1.0-10.0); NEUTROPHILS % (AUTO) 60.2 % (45.0-75.0); PLATELET COUNT 193 K/UL (150-450); RED BLOOD COUNT 2.78 M/UL (4.20-5.40); RED CELL DISTRIBUTION WIDTH 15.9 % (11.6-14.8); WHITE BLOOD COUNT 4.7 K/UL (4.8-10.8)
[2017-11-12] MEDS: Phenytoin Susp 100mg/4ml GT SCH ×3 (05:39→21:54)
[2017-11-12 06:15] LABS: ALANINE AMINOTRANSFERASE 31 U/L (12-78); ALBUMIN 2.1 G/DL (3.4-5.0); ALBUMIN/GLOBULIN RATIO 0.5 (1.0-2.7); ALKALINE PHOSPHATASE 254 U/L (46-116); ANION GAP 6 mmol/L (5-15); ASPARTATE AMINO TRANSFERASE 39 U/L (15-37); BILIRUBIN,TOTAL 0.3 MG/DL (0.2-1.0); BLOOD UREA NITROGEN 4 mg/dL (7-18); CARBON DIOXIDE 28 MMOL/L (21-32); CHLORIDE 108 MMOL/L (98-107); CREATININE 0.6 MG/DL (0.55-1.30); PHOSPHORUS 3.2 MG/DL (2.5-4.9); POTASSIUM 3.4 MMOL/L (3.5-5.1); SODIUM 142 MMOL/L (136-145)
[2017-11-12 08:00] VITALS: BP 118/84
[2017-11-12] MEDS: levETIRAcetam 500mg/5ml Liquid GT SCH ×2 (09:24→21:54)
[2017-11-12] MEDS: Pantoprazole Inj IV SCH (09:24)
[2017-11-12] MEDS: Heparin 5000 units/ml inj SUBQ SCH ×2 (09:26→21:57)
[2017-11-12] MEDS: NS w/KCl 20mEq 1,000 ML IV SCH ×2 (09:33→21:54)
--- NOTE | 2017-11-12 10:32 | Pulmonology Progress Note ---
Assessment/Plan Problems: (1) Acute and chronic respiratory failure (2) Sepsis (3) Seizure disorder (4) Vegetative state (5) Functional paraplegia (6) H/O: CVA (cerebrovascular accident) (7) HTN (hypertension) Respiratory: adjust FIO2 Cardiac: continue pressors Renal: keep IV fluid, check electrolytes Infectious Disease: check cultures, continue antibiotics Gastrointestinal: hold feedings Endocrine: monitor blood sugar, check TSH, continue sliding scale insulin Hematologic: transfuse if hgb<8.5 Neurologic: PRN Ativan, PRN Morphine, keep patient comfortable Affect: PRN ativan Subjective ROS Limited/Unobtainable: No Constitutional: Reports: no symptoms HEENT: Repors: no symptoms Allergies: Coded Allergies: PEANUT (Verified Allergy, Unknown, 09/22/16) Objective Last 24 Hour Vital Signs Date Time Temp Pulse Resp B/P (MAP) Pulse Ox O2 Delivery O2 Flow Rate FiO2 11/12/17 08:43 63 14 40 11/12/17 08:00 97.7 68 14 118/84 99 Mechanical Ventilator 40 97.7 11/12/17 08:00 40 11/12/17 06:42 66 15 40 11/12/17 05:13 70 23 40 11/12/17 04:00 98.1 71 20 103/73 97 Mechanical Ventilator 40 98.1 11/12/17 04:00 77 11/12/17 04:00 40 11/12/17 03:35 72 14 40 11/12/17 00:02 72 14 40 11/12/17 00:00 83 11/12/17 00:00 40 11/12/17 00:00 98.1 73 20 111/61 95 Mechanical Ventilator 40 98.1 11/11/17 21:10 74 14 40 11/11/17 20:00 40 11/11/17 20:00 97.9 78 20 117/56 97 Mechanical Ventilator 40 97.9 11/11/17 19:44 77 11/11/17 18:57 74 14 40 11/11/17 17:24 76 16 40 11/11/17 16:00 98.4 78 16 114/60 96 Mechanical Ventilator 40 98.4 11/11/17 16:00 40 11/11/17 16:00 78 11/11/17 15:17 96 22 40 11/11/17 13:09 81 21 40 11/11/17 12:00 97.9 76 16 118/59 96 Mechanical Ventilator 40 97.9 11/11/17 12:00 76 11/11/17 12:00 40 11/11/17 11:30 85 23 40 Intake and Output 11/11/17 11/12/17 19:00 07:00 Intake Total 1901.0 ml 2025.0 ml Output Total 400 ml 280 ml Balance 1501.0 ml 1745.0 ml IV Total 1631.0 ml 1565.0 ml Tube Feeding 270 ml 300 ml Other 160 ml Output Urine Total 400 ml 280 ml # Bowel Movements 2 General Appearance: WD/WN HEENT: normocephalic, anicteric, status post trach Respiratory/Chest: chest wall non-tender, normal breath sounds Breasts: no masses Cardiovascular: regular rhythm Abdomen: normal bowel sounds, no organomegaly, no scars Genitourinary: normal external genitalia Skin: no lesions Microbiology Date/Time Source Procedure Growth Status 11/09/17 21:45 Stool Clostridium difficile Toxin Assay - Final Complete Laboratory Tests 11/12/17 03:35: White Blood Count 4.7L, Red Blood Count 2.78L, Hemoglobin 9.1L, Hematocrit 27.5L , Mean Corpuscular Volume 99, Mean Corpuscular Hemoglobin 32.9H, Mean Corpuscular Hemoglobin Concent 33.3, Red Cell Distribution Width 15.9H, Platelet Count 193, Mean Platelet Volume 9.1, Neutrophils (%) (Auto) 60.2, Lymphocytes (%) (Auto) 21.0, Monocytes (%) (Auto) 9.9, Eosinophils (%) (Auto) 7.9H, Basophils (%) (Auto) 1.0, Sodium Level 142, Potassium Level 3.4L, Chloride Level 108H, Carbon Dioxide Level 28, Anion Gap 6, Blood Urea Nitrogen 4L, Creatinine 0.6, Estimat Glomerular Filtration Rate , Glucose Level 91, Calcium Level 9.0, Phosphorus Level 3.2, Magnesium Level 1.9, Total Bilirubin 0.3, Aspartate Amino Transf (AST/SGOT) 39H, Alanine Aminotransferase (ALT/SGPT) 31, Alkaline Phosphatase 254H, Total Protein 6.7, Albumin 2.1L, Globulin 4.6, Albumin/Globulin Ratio 0.5L Current Medications Medications (Trade) Dose Ordered Sig/Boubacar Route PRN Reason Start Time Stop Time Status Last Admin Dose Admin Acetaminophen (Tylenol) 650 mg Q4H PRN ORAL T>100.5 11/08/17 15:30 12/08/17 15:29 Albuterol/ Ipratropium (Albuterol/ Ipratropium) 3 ml Q4H PRN HHN Shortness of Breath 11/08/17 15:30 11/13/17 15:29 Dextrose (Dextrose 50%) STAT PRN IV Hypoglycemia 11/08/17 15:30 12/08/17 15:29 Heparin Sodium (Porcine) (Heparin 5000 units/ml) 5,000 units EVERY 12 HOURS SUBQ 11/08/17 21:00 12/08/17 20:59 11/12/17 09:26 Levetiracetam (Keppra) 1,500 mg Q12HR GT 11/08/17 21:00 12/08/17 20:59 11/12/17 09:24 Levothyroxine Sodium (Synthroid) 50 mcg DAILY@0600 GT 11/10/17 06:00 12/10/17 05:59 11/12/17 05:38 Linezolid 300 ml @ 300 mls/hr Q12HR@0600,1800 IVPB 11/11/17 18:00 11/18/17 17:59 11/12/17 05:38 Lorazepam (Ativan 2mg/ml 1ml) 2 mg Q2H PRN IV For Anxiety 11/08/17 15:30 11/15/17 15:29 Morphine Sulfate (Morphine Sulfate) 4 mg Q4H PRN IVP Severe Pain (Pain Scale 7-10) 11/08/17 15:30 11/15/17 15:29 Ondansetron HCl (Zofran) 4 mg Q6H PRN IVP Nausea & Vomiting 11/08/17 15:30 12/08/17 15:29 Pantoprazole (Protonix) 40 mg DAILY IV 11/09/17 09:00 12/09/17 08:59 11/12/17 09:24 Phenytoin (Dilantin) 200 mg Q8HR GT 11/08/17 22:00 12/08/17 21:59 11/12/17 05:39 Piperacillin Sod/ Tazobactam Sod 3.375 gm/Sodium Chloride 110 ml @ 27.5 mls/hr Q8HR@0000,1000,1800 IVPB 11/09/17 18:00 11/16/17 17:59 11/11/17 23:48 Polyethylene Glycol (Miralax) 17 gm DAILYPRN PRN ORAL Constipation 11/08/17 15:30 12/08/17 15:29 Sodium Chloride 1,000 ml @ 100 mls/hr Q10H IV 11/09/17 02:00 12/09/17 01:59 11/12/17 09:33 ANGELA DAVILA Nov 12, 2017 10:32
[2017-11-12] MEDS: Zoysn 3.37gm in NS 100ML IVPB SCH ×2 (10:54→17:39)
[2017-11-12 12:00] VITALS: BP 105/54
--- NOTE | 2017-11-12 15:39 | Consultation ---
Consult Note Consult Note Cardiology for Dr. Minor Full consult dictated #[id number] DEJON MCKEON Nov 12, 2017 15:39
[2017-11-12 16:00] VITALS: BP 102/57
--- NOTE | 2017-11-12 16:23 | Cardiology Report ---
APPROVED REPORT EKG Measurement Heart [id number] Sinus tachycardia Right bundle branch block Abnormal ECG
[2017-11-12 20:00] VITALS: BP 125/73
--- NOTE | 2017-11-12 23:00 | Consultation ---
DATE OF CONSULTATION: 11/12/2017 CARDIOLOGY CONSULTATION This is a cardiology consult for Dr. Minor's coverage. CONSULTING PHYSICIAN: Faith Vargas M.D. REASON FOR CONSULTATION: Bradycardia. HISTORY OF PRESENT ILLNESS: History was obtained from the chart and treating providers as the patient is on a ventilator, unable to give any history. 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 She was transferred from the nursing facility with fever. In the emergency room, temperature was 100, pulse 104, sinus tachycardia, and blood pressure 90/61. Chest x-ray showed right lower lobe infiltrate. White blood count was 18,800. She was diagnosed with pneumonia and admitted for further treatment. On telemetry, over the past day, she has been noted to have episodes of bradycardia and second-degree AV block. Cardiology evaluation was requested. PAST MEDICAL HISTORY: As noted above, history of respiratory failure, chronic ventilator dependence, COPD, hypertension, gastrostomy tube placement, and previous CVAs. MEDICATIONS: Include Linezolid 600 mg IV q.12 h., Zosyn 3.375 g IV q.8 h., vancomycin 1 g q.12 h. (discontinued on 11/11/2017), subcutaneous heparin 5000 units q.12 h., Keppra 1500 mg q.12 h., Synthroid 50 mcg per G-tube, Ativan 2 mg IV q.2 h. p.r.n., morphine 4 mg IV q.4 h. p.r.n., Zofran 4 mg IV q.6 h. p.r.n., Protonix 40 mg IV daily, Dilantin 200 mg per G-tube q.8 hours, MiraLAX 17 g daily p.r.n., and potassium 40 mEq per G-tube given x1 today. ALLERGIES: No known drug allergies. SOCIAL HISTORY: Not obtainable from the patient or chart. REVIEW OF SYSTEMS: Not obtainable from the patient or chart. PHYSICAL EXAMINATION: VITAL SIGNS: Blood pressure is 105/54, pulse 61 and regular, respirations 16, and afebrile. GENERAL: An alert and morbidly obese woman on the ventilator, in no respiratory distress. HEENT: Pupils equal, round, and reactive to light. Bilateral arcus senilis. Oral mucosa moist. Tracheostomy site clean. LUNGS: Bilateral coarse rhonchi diffusely. HEART: Regular S1, S2 (difficult to hear heart sounds over rhonchi). ABDOMEN: Obese, soft, and nondistended. Normoactive bowel sounds. G-tube in place. EXTREMITIES: No peripheral edema. NEUROLOGIC: Unable to test due to patient's condition. SKIN: No rashes or lesions. LABORATORY AND DIAGNOSTIC DATA: Hemoglobin 9.1, white blood count 4700, and platelets 193,000. Sodium 142, potassium 3.4, chloride 108, bicarbonate 28, BUN 4, and creatinine 0.6. Urinalysis from 11/08/2017, 1+ leukocyte esterase, 5 to 10 white blood cells, and moderate bacteria. Cultures, sputum positive Pseudomonas aeruginosa, urine positive Enterococcus faecium, VRE. Blood culture, Staphylococcus haemolyticus and coagulase-negative Staphylococcus (one culture each). EKG on admission showed sinus tachycardia, rate of 100 beats per minute, axis degrees, right bundle branch block. Telemetry strips now show sinus rhythm with one-to-one conduction rates in the 60s to 80s, but also episodes of Mobitz 1 second-degree AV block with 3:2 conduction or at times 2:1 conduction and short pauses less than two seconds. Chest x-ray shows tracheostomy and bilateral interstitial opacities. ASSESSMENT AND RECOMMENDATIONS: The patient is a 77-year-old woman with multiple chronic medical problems as outlined above, who was admitted with pneumonia and urinary tract infection. The blood cultures are felt possibly to be contaminant. In this setting, she has developed episodes of second-degree Mobitz 1 atrioventricular block, which appears to be asymptomatic, not associated with any change in blood pressure or other hemodynamic compromise. I would recommend evaluation for myocardial ischemia and assessment of left ventricular function. We will check troponin levels, serial EKGs, and obtain an echocardiogram. She does not appear to be on any medications, which would cause bradycardia. I would recommend avoiding all negative chronotropic and dromotropic agents as she likely has intrinsic atrioventricular renetta and possibly infranodal conduction disease. She does not have an indication for a permanent or temporary pacing at this time. Faith Mcfadden M.D. DR: Manjinder JOB#: [id number] CC:
[2017-11-12] MEDS ORDERED: Zosyn 3.375gm inj ONE (23:56)
[2017-11-13] VITALS: BP 119/56
[2017-11-13] MEDS: Zoysn 3.37gm in NS 100ML IVPB SCH ×4 (00:05→23:32)
[2017-11-13 04:00] VITALS: BP 118/53
[2017-11-13] MEDS: Phenytoin Susp 100mg/4ml GT SCH ×3 (05:58→21:03)
[2017-11-13] MEDS: NS w/KCl 20mEq 1,000 ML IV SCH ×2 (05:59→16:00)
[2017-11-13 06:09] LABS: BASOPHILS % (AUTO) 1.1 % (0.0-2.0); EOSINOPHILS % (AUTO) 8.1 % (0.0-3.0); HEMATOCRIT 29.3 % (37.0-47.0); HEMOGLOBIN 9.7 G/DL (12.0-16.0); LYMPHOCYTES % (AUTO) 20.2 % (20.0-45.0); MEAN CORPUSCULAR VOLUME 98 FL (80-99); MONOCYTES % (AUTO) 9.6 % (1.0-10.0); NEUTROPHILS % (AUTO) 61.1 % (45.0-75.0); PLATELET COUNT 215 K/UL (150-450); RED BLOOD COUNT 2.98 M/UL (4.20-5.40); RED CELL DISTRIBUTION WIDTH 15.6 % (11.6-14.8); WHITE BLOOD COUNT 5.6 K/UL (4.8-10.8)
[2017-11-13 06:53] LABS: ALANINE AMINOTRANSFERASE 34 U/L (12-78); ALBUMIN 2.2 G/DL (3.4-5.0); ALBUMIN/GLOBULIN RATIO 0.4 (1.0-2.7); ALKALINE PHOSPHATASE 264 U/L (46-116); ANION GAP 6 mmol/L (5-15); ASPARTATE AMINO TRANSFERASE 36 U/L (15-37); BILIRUBIN,TOTAL 0.2 MG/DL (0.2-1.0); BLOOD UREA NITROGEN 3 mg/dL (7-18); CALCIUM 9.2 MG/DL (8.5-10.1); CARBON DIOXIDE 26 MMOL/L (21-32); CHLORIDE 108 MMOL/L (98-107); CREATININE 0.6 MG/DL (0.55-1.30); POTASSIUM 3.9 MMOL/L (3.5-5.1); SODIUM 140 MMOL/L (136-145)
[2017-11-13 08:00] VITALS: BP 103/51
[2017-11-13] MEDS: levETIRAcetam 500mg/5ml Liquid GT SCH ×2 (08:12→21:00)
[2017-11-13] MEDS: Pantoprazole Inj IV SCH (08:13)
[2017-11-13] MEDS: Heparin 5000 units/ml inj SUBQ SCH ×2 (08:16→21:02)
--- NOTE | 2017-11-13 11:52 | Diagnostic Imaging Report ---
Indication: Reason For Exam: DYSPNEA Technique: One view of the chest Comparison: 11/11/2017 Findings: Tracheostomy again demonstrated. The heart is borderline enlarged. Generalized interstitial prominence persists, unchanged. Impression: Unchanged, over one day, findings as above.
[2017-11-13 12:00] VITALS: BP 141/61
--- NOTE | 2017-11-13 12:09 | Infectious Diseases Prog Note ---
Assessment/Plan Assessment/Plan ASSESSMENT: The patient is a 77-year-old female with, bacteremia : Cons ? contaminant -3 Bcx 2/ CoNS repeat bcx 11/12 p Ucx : VRE 100K Fever, SP Leukocytosis,SP -cdiff neg Transaminitis and elevated alkaline phosphatase, hepatitis panel : neg (2017 ) Ro biliary disease. Abd US p Pneum Scx : PsA (S zosyn), GNR #2 CXray : Persistent right basilar infiltrate, over 2 days History of multiple drug-resistant Klebsiella UTI History of anoxic encephalopathy. sp trach vent and PEG placement Seizure disorder Breast cancer Morbid obesity CHF HTN Diabetes Anemia PLAN: continue the patient on IV Zosyn d# / , and Zyvox d# 3 / 5 -11/11 SP IV Vancomcyin #3 Monitor CBC and BMP Monitor cultures (blood, sputum). repeat BlCx Monitor chest x-ray. f/u Ultrasound of the abdomen, Subjective Allergies: Coded Allergies: PEANUT (Verified Allergy, Unknown, 09/22/16) Subjective afebrile no leukocytosis awaiting repeat Bcx Objective Vital Signs Last 24 Hour Vital Signs Date Time Temp Pulse Resp B/P (MAP) Pulse Ox O2 Delivery O2 Flow Rate FiO2 11/13/17 10:38 65 19 40 11/13/17 08:34 66 15 40 11/13/17 08:00 99.3 70 16 103/51 100 Mechanical Ventilator 40 99.3 11/13/17 08:00 40 11/13/17 07:57 60 11/13/17 07:22 67 17 40 11/13/17 05:23 69 21 40 11/13/17 04:08 68 11/13/17 04:00 98.5 72 24 118/53 100 Mechanical Ventilator 40 98.5 11/13/17 04:00 40 11/13/17 01:27 71 21 40 11/13/17 00:07 71 11/13/17 00:00 40 11/13/17 00:00 99.0 68 21 119/56 100 Mechanical Ventilator 40 99.0 11/12/17 23:40 64 14 40 11/12/17 20:40 64 14 40 11/12/17 20:00 97.9 73 20 125/73 100 Mechanical Ventilator 40 97.9 11/12/17 20:00 40 11/12/17 19:43 68 11/12/17 19:10 66 14 40 11/12/17 19:07 64 14 40 11/12/17 16:41 64 14 40 11/12/17 16:00 40 11/12/17 16:00 98.1 62 18 102/57 100 Mechanical Ventilator 40 98.1 11/12/17 15:36 66 11/12/17 14:32 61 12 40 11/12/17 12:46 71 21 40 Height (Feet): 5 Height (Inches): 4.00 Weight (Pounds): 256 Objective General Appearance: WD/WN HEENT: normocephalic, anicteric, status post trach Respiratory/Chest: chest wall non-tender, normal breath sounds Breasts: no masses Cardiovascular: regular rhythm Abdomen: normal bowel sounds, no organomegaly, no scars Genitourinary: normal external genitalia Skin: no lesions Laboratory Tests Test 11/12/17 17:27 11/13/17 04:20 Troponin I 0.011 ng/mL (0.000-0.056) White Blood Count 5.6 K/UL (4.8-10.8) Red Blood Count 2.98 M/UL (4.20-5.40) L Hemoglobin 9.7 G/DL (12.0-16.0) L Hematocrit 29.3 % (37.0-47.0) L Mean Corpuscular Volume 98 FL (80-99) Mean Corpuscular Hemoglobin 32.5 PG (27.0-31.0) H Mean Corpuscular Hemoglobin Concent 33.0 G/DL (32.0-36.0) Red Cell Distribution Width 15.6 % (11.6-14.8) H Platelet Count 215 K/UL (150-450) Mean Platelet Volume 9.0 FL (6.5-10.1) Neutrophils (%) (Auto) 61.1 % (45.0-75.0) Lymphocytes (%) (Auto) 20.2 % (20.0-45.0) Monocytes (%) (Auto) 9.6 % (1.0-10.0) Eosinophils (%) (Auto) 8.1 % (0.0-3.0) H Basophils (%) (Auto) 1.1 % (0.0-2.0) Sodium Level 140 MMOL/L (136-145) Potassium Level 3.9 MMOL/L (3.5-5.1) Chloride Level 108 MMOL/L (98-107) H Carbon Dioxide Level 26 MMOL/L (21-32) Anion Gap 6 mmol/L (5-15) Blood Urea Nitrogen 3 mg/dL (7-18) L Creatinine 0.6 MG/DL (0.55-1.30) Estimat Glomerular Filtration Rate mL/min (>60) Glucose Level 89 MG/DL (74-106) Calcium Level 9.2 MG/DL (8.5-10.1) Total Bilirubin 0.2 MG/DL (0.2-1.0) Aspartate Amino Transf (AST/SGOT) 36 U/L (15-37) Alanine Aminotransferase (ALT/SGPT) 34 U/L (12-78) Alkaline Phosphatase 264 U/L (46-116) H Pro-B-Type Natriuretic Peptide 583 pg/mL (0-125) H Total Protein 7.1 G/DL (6.4-8.2) Albumin 2.2 G/DL (3.4-5.0) L Globulin 4.9 g/dL Albumin/Globulin Ratio 0.4 (1.0-2.7) L Current Medications Medications (Trade) Dose Ordered Sig/Boubacar Route PRN Reason Start Time Stop Time Status Last Admin Dose Admin Acetaminophen (Tylenol) 650 mg Q4H PRN ORAL T>100.5 11/08/17 15:30 12/08/17 15:29 Albuterol/ Ipratropium (Albuterol/ Ipratropium) 3 ml Q4H PRN HHN Shortness of Breath 11/08/17 15:30 11/13/17 15:29 Dextrose (Dextrose 50%) STAT PRN IV Hypoglycemia 11/08/17 15:30 12/08/17 15:29 Heparin Sodium (Porcine) (Heparin 5000 units/ml) 5,000 units EVERY 12 HOURS SUBQ 11/08/17 21:00 12/08/17 20:59 11/13/17 08:16 Levetiracetam (Keppra) 1,500 mg Q12HR GT 11/08/17 21:00 12/08/17 20:59 11/13/17 08:12 Levothyroxine Sodium (Synthroid) 50 mcg DAILY@0600 GT 11/10/17 06:00 12/10/17 05:59 11/13/17 05:58 Linezolid 300 ml @ 300 mls/hr Q12HR@0600,1800 IVPB 11/11/17 18:00 11/18/17 17:59 11/13/17 05:59 Lorazepam (Ativan 2mg/ml 1ml) 2 mg Q2H PRN IV For Anxiety 11/08/17 15:30 11/15/17 15:29 Morphine Sulfate (Morphine Sulfate) 4 mg Q4H PRN IVP Severe Pain (Pain Scale 7-10) 11/08/17 15:30 11/15/17 15:29 Ondansetron HCl (Zofran) 4 mg Q6H PRN IVP Nausea & Vomiting 11/08/17 15:30 12/08/17 15:29 Pantoprazole (Protonix) 40 mg DAILY IV 11/09/17 09:00 12/09/17 08:59 11/13/17 08:13 Phenytoin (Dilantin) 200 mg Q8HR GT 11/08/17 22:00 12/08/17 21:59 11/13/17 05:58 Piperacillin Sod/ Tazobactam Sod 3.375 gm/Sodium Chloride 110 ml @ 27.5 mls/hr Q8HR@0000,1000,1800 IVPB 11/09/17 18:00 11/16/17 17:59 11/13/17 09:07 Polyethylene Glycol (Miralax) 17 gm DAILYPRN PRN ORAL Constipation 11/08/17 15:30 12/08/17 15:29 Sodium Chloride 1,000 ml @ 100 mls/hr Q10H IV 11/09/17 02:00 12/09/17 01:59 11/13/17 05:59 Sadia Medeiros M.D. Nov 13, 2017 12:09
--- NOTE | 2017-11-13 12:17 | Pulmonology Progress Note ---
Assessment/Plan Problems: (1) Acute and chronic respiratory failure (2) Sepsis (3) Seizure disorder (4) Vegetative state (5) Functional paraplegia (6) H/O: CVA (cerebrovascular accident) (7) HTN (hypertension) Respiratory: monitor respiratory rate, adjust FIO2, CXR Cardiac: continue to monitor HR/BP Renal: F/U I&O, check electrolytes Infectious Disease: check cultures Gastrointestinal: continue feedings/current rate Endocrine: monitor blood sugar, continue sliding scale insulin Hematologic: monitor H/H, transfuse if hgb<8.5 Neurologic: PRN Ativan, keep patient comfortable Prophylaxis: Protonix Disposition: keep in ICU 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 Discussed with: nurses, caser Subjective ROS Limited/Unobtainable: No Allergies: Coded Allergies: PEANUT (Verified Allergy, Unknown, 09/22/16) Objective Last 24 Hour Vital Signs Date Time Temp Pulse Resp B/P (MAP) Pulse Ox O2 Delivery O2 Flow Rate FiO2 11/13/17 10:38 65 19 40 11/13/17 08:34 66 15 40 11/13/17 08:00 99.3 70 16 103/51 100 Mechanical Ventilator 40 99.3 11/13/17 08:00 40 11/13/17 07:57 60 11/13/17 07:22 67 17 40 11/13/17 05:23 69 21 40 11/13/17 04:08 68 11/13/17 04:00 98.5 72 24 118/53 100 Mechanical Ventilator 40 98.5 11/13/17 04:00 40 11/13/17 01:27 71 21 40 11/13/17 00:07 71 11/13/17 00:00 40 11/13/17 00:00 99.0 68 21 119/56 100 Mechanical Ventilator 40 99.0 11/12/17 23:40 64 14 40 11/12/17 20:40 64 14 40 11/12/17 20:00 97.9 73 20 125/73 100 Mechanical Ventilator 40 97.9 11/12/17 20:00 40 11/12/17 19:43 68 11/12/17 19:10 66 14 40 11/12/17 19:07 64 14 40 11/12/17 16:41 64 14 40 11/12/17 16:00 40 11/12/17 16:00 98.1 62 18 102/57 100 Mechanical Ventilator 40 98.1 11/12/17 15:36 66 11/12/17 14:32 61 12 40 11/12/17 12:46 71 21 40 Intake and Output 11/12/17 11/13/17 19:00 07:00 Intake Total 1732.5 ml 1157.5 ml Output Total 500 ml 500 ml Balance 1232.5 ml 657.5 ml Intake Free Water 50 ml IV Total 1582.5 ml 837.5 ml Tube Feeding 150 ml 270 ml Output Urine Total 500 ml 500 ml # Bowel Movements 1 Objective General Appearance: WD/WN HEENT: normocephalic, atraumatic, anicteric Respiratory/Chest: chest wall non-tender, lungs clear Cardiovascular: normal peripheral pulses, normal rate, regular rhythm Abdomen: normal bowel sounds, soft, non tender Genitourinary: normal external genitalia Extremities: no cyanosis Skin: no rash Laboratory Tests 11/12/17 17:27: Troponin I 0.011 11/13/17 04:20: White Blood Count 5.6, Red Blood Count 2.98L, Hemoglobin 9.7L, Hematocrit 29.3L , Mean Corpuscular Volume 98, Mean Corpuscular Hemoglobin 32.5H, Mean Corpuscular Hemoglobin Concent 33.0, Red Cell Distribution Width 15.6H, Platelet Count 215, Mean Platelet Volume 9.0, Neutrophils (%) (Auto) 61.1, Lymphocytes (%) (Auto) 20.2, Monocytes (%) (Auto) 9.6, Eosinophils (%) (Auto) 8.1H, Basophils (%) (Auto) 1.1, Sodium Level 140, Potassium Level 3.9, Chloride Level 108H, Carbon Dioxide Level 26, Anion Gap 6, Blood Urea Nitrogen 3L, Creatinine 0.6, Estimat Glomerular Filtration Rate , Glucose Level 89, Calcium Level 9.2, Total Bilirubin 0.2, Aspartate Amino Transf (AST/SGOT) 36, Alanine Aminotransferase (ALT/SGPT) 34, Alkaline Phosphatase 264H, Pro-B-Type Natriuretic Peptide 583H, Total Protein 7.1, Albumin 2.2L, Globulin 4.9, Albumin /Globulin Ratio 0.4L Current Medications Medications (Trade) Dose Ordered Sig/Boubacar Route PRN Reason Start Time Stop Time Status Last Admin Dose Admin Acetaminophen (Tylenol) 650 mg Q4H PRN ORAL T>100.5 11/08/17 15:30 12/08/17 15:29 Albuterol/ Ipratropium (Albuterol/ Ipratropium) 3 ml Q4H PRN HHN Shortness of Breath 11/08/17 15:30 11/13/17 15:29 Dextrose (Dextrose 50%) STAT PRN IV Hypoglycemia 11/08/17 15:30 12/08/17 15:29 Heparin Sodium (Porcine) (Heparin 5000 units/ml) 5,000 units EVERY 12 HOURS SUBQ 11/08/17 21:00 12/08/17 20:59 11/13/17 08:16 Levetiracetam (Keppra) 1,500 mg Q12HR GT 11/08/17 21:00 12/08/17 20:59 11/13/17 08:12 Levothyroxine Sodium (Synthroid) 50 mcg DAILY@0600 GT 11/10/17 06:00 12/10/17 05:59 11/13/17 05:58 Linezolid 300 ml @ 300 mls/hr Q12HR@0600,1800 IVPB 11/11/17 18:00 11/18/17 17:59 11/13/17 05:59 Lorazepam (Ativan 2mg/ml 1ml) 2 mg Q2H PRN IV For Anxiety 11/08/17 15:30 11/15/17 15:29 Morphine Sulfate (Morphine Sulfate) 4 mg Q4H PRN IVP Severe Pain (Pain Scale 7-10) 11/08/17 15:30 11/15/17 15:29 Ondansetron HCl (Zofran) 4 mg Q6H PRN IVP Nausea & Vomiting 11/08/17 15:30 12/08/17 15:29 Pantoprazole (Protonix) 40 mg DAILY IV 11/09/17 09:00 12/09/17 08:59 11/13/17 08:13 Phenytoin (Dilantin) 200 mg Q8HR GT 11/08/17 22:00 12/08/17 21:59 11/13/17 05:58 Piperacillin Sod/ Tazobactam Sod 3.375 gm/Sodium Chloride 110 ml @ 27.5 mls/hr Q8HR@0000,1000,1800 IVPB 11/09/17 18:00 11/16/17 17:59 11/13/17 09:07 Polyethylene Glycol (Miralax) 17 gm DAILYPRN PRN ORAL Constipation 11/08/17 15:30 12/08/17 15:29 Sodium Chloride 1,000 ml @ 100 mls/hr Q10H IV 11/09/17 02:00 12/09/17 01:59 11/13/17 05:59 ANGELA DAVILA Nov 13, 2017 12:17
--- NOTE | 2017-11-13 15:30 | Diagnostic Imaging Report ---
Indication: Abnormal liver function tests Technique: Grayscale and duplex images of the right upper quadrant Comparison: 04/23/2017 Findings: Per technologist, exam was somewhat technically difficult due to patient body habitus. Nonaneurysmal abdominal aorta. Unremarkable pancreas. Liver demonstrates normal echogenicity, no focal abnormality. Patent portal and hepatic veins. Common bile duct measures 3 mm in diameter. The gallbladder is nondistended, no gross gallstones or wall thickening or pericholecystic fluid. Right kidney measures 11.2 cm in length. No right hydronephrosis or focal abnormality. Impression: Negative limited right upper quadrant ultrasound. No evidence of gallstones or dilated ducts
[2017-11-13 15:55] VITALS: BP 115/52
--- NOTE | 2017-11-13 17:24 | Cardiology Progress Note ---
Assessment/Plan Assessment/Plan 1. Mobitz I second-degree atrioventricular block, intermittent in nature without prolonged pauses. 2. Chronic respiratory failure, on ventilator. 3. Persistent vegetative state. 4. Morbid obesity. 5. Hypertension. 6. Urinary tract infection. 7. bacteremia possible contamination ? 8. Anoxic brain injury history. c diff neg labs noted bp i fine afebrile cxr noted tele noted avoid neg chronotropic agents (med list reviewed none found) Subjective ROS Limited/Unobtainable: Yes Subjective not verbal on the vent Objective Last 24 Hour Vital Signs Date Time Temp Pulse Resp B/P (MAP) Pulse Ox O2 Delivery O2 Flow Rate FiO2 11/13/17 16:38 60 19 40 11/13/17 15:56 40 11/13/17 15:55 98.1 61 20 115/52 100 Mechanical Ventilator 40 98.1 11/13/17 15:17 63 11/13/17 14:45 65 16 40 11/13/17 12:39 60 15 40 11/13/17 12:09 64 11/13/17 12:00 98.2 74 20 141/61 100 Mechanical Ventilator 40 98.2 11/13/17 12:00 40 11/13/17 10:38 65 19 40 11/13/17 08:34 66 15 40 11/13/17 08:00 99.3 70 16 103/51 100 Mechanical Ventilator 40 99.3 11/13/17 08:00 40 11/13/17 07:57 60 11/13/17 07:22 67 17 40 11/13/17 05:23 69 21 40 11/13/17 04:08 68 11/13/17 04:00 98.5 72 24 118/53 100 Mechanical Ventilator 40 98.5 11/13/17 04:00 40 11/13/17 01:27 71 21 40 11/13/17 00:07 71 11/13/17 00:00 40 11/13/17 00:00 99.0 68 21 119/56 100 Mechanical Ventilator 40 99.0 11/12/17 23:40 64 14 40 11/12/17 20:40 64 14 40 11/12/17 20:00 97.9 73 20 125/73 100 Mechanical Ventilator 40 97.9 11/12/17 20:00 40 11/12/17 19:43 68 11/12/17 19:10 66 14 40 11/12/17 19:07 64 14 40 General Appearance: on vent, patient on isolation Cardiovascular: normal rate Respiratory/Chest: rhonchi - bilaterally Abdomen: normal bowel sounds, non tender, soft Extremities: no swelling Intake and Output 11/12/17 11/13/17 19:00 07:00 Intake Total 1732.5 ml 1157.5 ml Output Total 500 ml 500 ml Balance 1232.5 ml 657.5 ml Intake Free Water 50 ml IV Total 1582.5 ml 837.5 ml Tube Feeding 150 ml 270 ml Output Urine Total 500 ml 500 ml # Bowel Movements 1 Laboratory Tests Test 11/12/17 17:27 11/13/17 04:20 Troponin I 0.011 ng/mL (0.000-0.056) White Blood Count 5.6 K/UL (4.8-10.8) Red Blood Count 2.98 M/UL (4.20-5.40) L Hemoglobin 9.7 G/DL (12.0-16.0) L Hematocrit 29.3 % (37.0-47.0) L Mean Corpuscular Volume 98 FL (80-99) Mean Corpuscular Hemoglobin 32.5 PG (27.0-31.0) H Mean Corpuscular Hemoglobin Concent 33.0 G/DL (32.0-36.0) Red Cell Distribution Width 15.6 % (11.6-14.8) H Platelet Count 215 K/UL (150-450) Mean Platelet Volume 9.0 FL (6.5-10.1) Neutrophils (%) (Auto) 61.1 % (45.0-75.0) Lymphocytes (%) (Auto) 20.2 % (20.0-45.0) Monocytes (%) (Auto) 9.6 % (1.0-10.0) Eosinophils (%) (Auto) 8.1 % (0.0-3.0) H Basophils (%) (Auto) 1.1 % (0.0-2.0) Sodium Level 140 MMOL/L (136-145) Potassium Level 3.9 MMOL/L (3.5-5.1) Chloride Level 108 MMOL/L (98-107) H Carbon Dioxide Level 26 MMOL/L (21-32) Anion Gap 6 mmol/L (5-15) Blood Urea Nitrogen 3 mg/dL (7-18) L Creatinine 0.6 MG/DL (0.55-1.30) Estimat Glomerular Filtration Rate mL/min (>60) Glucose Level 89 MG/DL (74-106) Calcium Level 9.2 MG/DL (8.5-10.1) Total Bilirubin 0.2 MG/DL (0.2-1.0) Aspartate Amino Transf (AST/SGOT) 36 U/L (15-37) Alanine Aminotransferase (ALT/SGPT) 34 U/L (12-78) Alkaline Phosphatase 264 U/L (46-116) H Pro-B-Type Natriuretic Peptide 583 pg/mL (0-125) H Total Protein 7.1 G/DL (6.4-8.2) Albumin 2.2 G/DL (3.4-5.0) L Globulin 4.9 g/dL Albumin/Globulin Ratio 0.4 (1.0-2.7) L MARCELL KING Nov 13, 2017 17:24
[2017-11-13 20:00] VITALS: BP 134/57
[2017-11-14] VITALS: BP 123/59
[2017-11-14] MEDS: NS w/KCl 20mEq 1,000 ML IV SCH ×3 (02:29→22:04)
[2017-11-14 04:00] VITALS: BP 107/66
[2017-11-14 04:39] LABS: EOSINOPHILS % (AUTO) 9.5 % (0.0-3.0); HEMATOCRIT 28.1 % (37.0-47.0); HEMOGLOBIN 9.2 G/DL (12.0-16.0); LYMPHOCYTES % (AUTO) 20.8 % (20.0-45.0); MEAN CORPUSCULAR VOLUME 98 FL (80-99); NEUTROPHILS % (AUTO) 58.7 % (45.0-75.0); PLATELET COUNT 212 K/UL (150-450); RED BLOOD COUNT 2.85 M/UL (4.20-5.40); RED CELL DISTRIBUTION WIDTH 15.7 % (11.6-14.8); WHITE BLOOD COUNT 5.1 K/UL (4.8-10.8)
[2017-11-14 05:00] LABS: ALANINE AMINOTRANSFERASE 26 U/L (12-78); ALBUMIN/GLOBULIN RATIO 0.5 (1.0-2.7); ALKALINE PHOSPHATASE 233 U/L (46-116); ANION GAP 5 mmol/L (5-15); ASPARTATE AMINO TRANSFERASE 28 U/L (15-37); BILIRUBIN,TOTAL 0.2 MG/DL (0.2-1.0); BLOOD UREA NITROGEN 2 mg/dL (7-18); CALCIUM 8.6 MG/DL (8.5-10.1); CARBON DIOXIDE 28 MMOL/L (21-32); CHLORIDE 109 MMOL/L (98-107); CREATININE 0.5 MG/DL (0.55-1.30); PHOSPHORUS 3.1 MG/DL (2.5-4.9); POTASSIUM 3.2 MMOL/L (3.5-5.1); SODIUM 142 MMOL/L (136-145)
[2017-11-14] MEDS: Phenytoin Susp 100mg/4ml GT SCH ×3 (05:56→22:04)
[2017-11-14 08:00] VITALS: BP 99/55
[2017-11-14] MEDS: levETIRAcetam 500mg/5ml Liquid GT SCH ×2 (09:01→20:50)
[2017-11-14] MEDS: Heparin 5000 units/ml inj SUBQ SCH ×2 (09:03→20:52)
[2017-11-14] MEDS: Zoysn 3.37gm in NS 100ML IVPB SCH ×2 (09:34→18:34)
--- NOTE | 2017-11-14 10:50 | Pulmonology Progress Note ---
Assessment/Plan Problems: (1) Acute and chronic respiratory failure (2) Sepsis (3) Seizure disorder (4) Vegetative state (5) Functional paraplegia (6) H/O: CVA (cerebrovascular accident) (7) HTN (hypertension) Respiratory: monitor respiratory rate, adjust FIO2 Cardiac: continue pressors, continue to monitor HR/BP Renal: F/U I&O Infectious Disease: check cultures, continue antibiotics Gastrointestinal: continue feedings/current rate, abdominal imaging Endocrine: monitor blood sugar, check TSH Hematologic: monitor H/H, transfuse if hgb<8.5 Neurologic: keep patient comfortable Affect: PRN ativan Prophylaxis: Protonix 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, 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, 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, 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 Subjective ROS Limited/Unobtainable: No Constitutional: Reports: no symptoms HEENT: Repors: no symptoms Allergies: Coded Allergies: PEANUT (Verified Allergy, Unknown, 09/22/16) Objective Last 24 Hour Vital Signs Date Time Temp Pulse Resp B/P (MAP) Pulse Ox O2 Delivery O2 Flow Rate FiO2 11/14/17 08:58 68 20 40 11/14/17 08:00 51 11/14/17 08:00 40 11/14/17 08:00 98.4 63 17 99/55 100 Mechanical Ventilator 40 98.4 11/14/17 07:50 51 11/14/17 07:01 63 14 40 11/14/17 05:13 60 15 40 11/14/17 04:00 60 11/14/17 04:00 98.3 58 20 107/66 100 Mechanical Ventilator 40 98.3 11/14/17 04:00 40 11/14/17 02:41 60 14 40 11/14/17 01:17 67 20 40 11/14/17 00:00 53 11/14/17 00:00 97.5 65 20 123/59 100 Mechanical Ventilator 40 97.5 11/14/17 00:00 40 11/13/17 23:28 60 14 40 11/13/17 20:40 63 13 40 11/13/17 20:00 40 11/13/17 20:00 97.9 66 14 134/57 100 Mechanical Ventilator 40 97.9 11/13/17 20:00 44 11/13/17 18:58 64 14 40 11/13/17 16:38 60 19 40 11/13/17 15:56 40 11/13/17 15:55 98.1 61 20 115/52 100 Mechanical Ventilator 40 98.1 11/13/17 15:17 63 11/13/17 14:45 65 16 40 11/13/17 12:39 60 15 40 11/13/17 12:09 64 11/13/17 12:00 98.2 74 20 141/61 100 Mechanical Ventilator 40 98.2 11/13/17 12:00 40 Intake and Output 11/13/17 11/14/17 19:00 07:00 Intake Total 1780.00 ml 1710.0 ml Output Total 1400 ml 600 ml Balance 380.00 ml 1110.0 ml IV Total 1510.00 ml 1470.0 ml Tube Feeding 210 ml 240 ml Other 60 ml Output Urine Total 1400 ml 600 ml # Bowel Movements 2 2 Objective General Appearance: WD/WN HEENT: normocephalic, atraumatic, anicteric Respiratory/Chest: chest wall non-tender, lungs clear Cardiovascular: normal peripheral pulses, normal rate, regular rhythm Abdomen: normal bowel sounds, soft, non tender Genitourinary: normal external genitalia Extremities: no cyanosis Skin: no rash Microbiology Date/Time Source Procedure Growth Status 11/12/17 03:35 Blood Blood Culture - Preliminary NO GROWTH AFTER 48 HOURS Resulted 11/12/17 03:30 Blood Blood Culture - Preliminary NO GROWTH AFTER 48 HOURS Resulted Laboratory Tests 11/14/17 03:45: White Blood Count 5.1, Red Blood Count 2.85L, Hemoglobin 9.2L, Hematocrit 28.1L , Mean Corpuscular Volume 98, Mean Corpuscular Hemoglobin 32.4H, Mean Corpuscular Hemoglobin Concent 32.9, Red Cell Distribution Width 15.7H, Platelet Count 212, Mean Platelet Volume 8.7, Neutrophils (%) (Auto) 58.7, Lymphocytes (%) (Auto) 20.8, Monocytes (%) (Auto) 10.0, Eosinophils (%) (Auto) 9.5H, Basophils (%) (Auto) 1.0, Sodium Level 142, Potassium Level 3.2L, Chloride Level 109H, Carbon Dioxide Level 28, Anion Gap 5, Blood Urea Nitrogen 2L, Creatinine 0.5L, Estimat Glomerular Filtration Rate , Glucose Level 94, Calcium Level 8.6, Phosphorus Level 3.1, Magnesium Level 1.6L, Total Bilirubin 0.2, Aspartate Amino Transf (AST/SGOT) 28, Alanine Aminotransferase (ALT/SGPT) 26, Alkaline Phosphatase 233H, Total Protein 6.4, Albumin 2.0L, Globulin 4.4, Albumin/Globulin Ratio 0.5L Current Medications Medications (Trade) Dose Ordered Sig/Boubacar Route PRN Reason Start Time Stop Time Status Last Admin Dose Admin Acetaminophen (Tylenol) 650 mg Q4H PRN ORAL T>100.5 11/08/17 15:30 12/08/17 15:29 Dextrose (Dextrose 50%) STAT PRN IV Hypoglycemia 11/08/17 15:30 12/08/17 15:29 Heparin Sodium (Porcine) (Heparin 5000 units/ml) 5,000 units EVERY 12 HOURS SUBQ 11/08/17 21:00 12/08/17 20:59 11/14/17 09:03 Levetiracetam (Keppra) 1,500 mg Q12HR GT 11/08/17 21:00 12/08/17 20:59 11/14/17 09:01 Levothyroxine Sodium (Synthroid) 50 mcg DAILY@0600 GT 11/10/17 06:00 12/10/17 05:59 11/14/17 05:56 Linezolid 300 ml @ 300 mls/hr Q12HR@0600,1800 IVPB 11/11/17 18:00 11/18/17 17:59 11/14/17 05:55 Lorazepam (Ativan 2mg/ml 1ml) 2 mg Q2H PRN IV For Anxiety 11/08/17 15:30 11/15/17 15:29 Morphine Sulfate (Morphine Sulfate) 4 mg Q4H PRN IVP Severe Pain (Pain Scale 7-10) 11/08/17 15:30 11/15/17 15:29 Ondansetron HCl (Zofran) 4 mg Q6H PRN IVP Nausea & Vomiting 11/08/17 15:30 12/08/17 15:29 Phenytoin (Dilantin) 200 mg Q8HR GT 11/08/17 22:00 12/08/17 21:59 11/14/17 05:56 Piperacillin Sod/ Tazobactam Sod 3.375 gm/Sodium Chloride 110 ml @ 27.5 mls/hr Q8HR@0000,1000,1800 IVPB 11/09/17 18:00 11/16/17 17:59 11/14/17 09:34 Polyethylene Glycol (Miralax) 17 gm DAILYPRN PRN ORAL Constipation 11/08/17 15:30 12/08/17 15:29 Sodium Chloride 1,000 ml @ 100 mls/hr Q10H IV 11/09/17 02:00 12/09/17 01:59 11/14/17 02:29 Savi Rodriguez MD Nov 14, 2017 10:50
--- NOTE | 2017-11-14 11:48 | Cardiology Progress Note ---
Assessment/Plan Assessment/Plan 1. Mobitz I second-degree atrioventricular block, intermittent in nature without prolonged pauses. 2. Chronic respiratory failure, on ventilator. 3. Persistent vegetative state. 4. Morbid obesity. 5. Hypertension. 6. Urinary tract infection. 7. bacteremia possible contamination ? 8. Anoxic brain injury history. c diff neg labs noted bp i fine afebrile cxr noted tele noted still no sig pauses avoid neg chronotropic agents (med list reviewed none found) mg adn k supplement Subjective ROS Limited/Unobtainable: Yes Subjective not verbal on the vent Objective Last 24 Hour Vital Signs Date Time Temp Pulse Resp B/P (MAP) Pulse Ox O2 Delivery O2 Flow Rate FiO2 11/14/17 11:16 63 14 40 11/14/17 08:58 68 20 40 11/14/17 08:00 51 11/14/17 08:00 40 11/14/17 08:00 98.4 63 17 99/55 100 Mechanical Ventilator 40 98.4 11/14/17 07:50 51 11/14/17 07:01 63 14 40 11/14/17 05:13 60 15 40 11/14/17 04:00 60 11/14/17 04:00 98.3 58 20 107/66 100 Mechanical Ventilator 40 98.3 11/14/17 04:00 40 11/14/17 02:41 60 14 40 11/14/17 01:17 67 20 40 11/14/17 00:00 53 11/14/17 00:00 97.5 65 20 123/59 100 Mechanical Ventilator 40 97.5 11/14/17 00:00 40 11/13/17 23:28 60 14 40 11/13/17 20:40 63 13 40 11/13/17 20:00 40 11/13/17 20:00 97.9 66 14 134/57 100 Mechanical Ventilator 40 97.9 11/13/17 20:00 44 11/13/17 18:58 64 14 40 11/13/17 16:38 60 19 40 11/13/17 15:56 40 11/13/17 15:55 98.1 61 20 115/52 100 Mechanical Ventilator 40 98.1 11/13/17 15:17 63 11/13/17 14:45 65 16 40 11/13/17 12:39 60 15 40 11/13/17 12:09 64 11/13/17 12:00 98.2 74 20 141/61 100 Mechanical Ventilator 40 98.2 11/13/17 12:00 40 General Appearance: other - awake Cardiovascular: normal rate Respiratory/Chest: rhonchi - bilaterally Abdomen: non tender, soft Extremities: no swelling Intake and Output 11/13/17 11/14/17 19:00 07:00 Intake Total 1780.00 ml 1710.0 ml Output Total 1400 ml 600 ml Balance 380.00 ml 1110.0 ml IV Total 1510.00 ml 1470.0 ml Tube Feeding 210 ml 240 ml Other 60 ml Output Urine Total 1400 ml 600 ml # Bowel Movements 2 2 Laboratory Tests Test 11/14/17 03:45 White Blood Count 5.1 K/UL (4.8-10.8) Red Blood Count 2.85 M/UL (4.20-5.40) L Hemoglobin 9.2 G/DL (12.0-16.0) L Hematocrit 28.1 % (37.0-47.0) L Mean Corpuscular Volume 98 FL (80-99) Mean Corpuscular Hemoglobin 32.4 PG (27.0-31.0) H Mean Corpuscular Hemoglobin Concent 32.9 G/DL (32.0-36.0) Red Cell Distribution Width 15.7 % (11.6-14.8) H Platelet Count 212 K/UL (150-450) Mean Platelet Volume 8.7 FL (6.5-10.1) Neutrophils (%) (Auto) 58.7 % (45.0-75.0) Lymphocytes (%) (Auto) 20.8 % (20.0-45.0) Monocytes (%) (Auto) 10.0 % (1.0-10.0) Eosinophils (%) (Auto) 9.5 % (0.0-3.0) H Basophils (%) (Auto) 1.0 % (0.0-2.0) Sodium Level 142 MMOL/L (136-145) Potassium Level 3.2 MMOL/L (3.5-5.1) L Chloride Level 109 MMOL/L (98-107) H Carbon Dioxide Level 28 MMOL/L (21-32) Anion Gap 5 mmol/L (5-15) Blood Urea Nitrogen 2 mg/dL (7-18) L Creatinine 0.5 MG/DL (0.55-1.30) L Estimat Glomerular Filtration Rate mL/min (>60) Glucose Level 94 MG/DL (74-106) Calcium Level 8.6 MG/DL (8.5-10.1) Phosphorus Level 3.1 MG/DL (2.5-4.9) Magnesium Level 1.6 MG/DL (1.8-2.4) L Total Bilirubin 0.2 MG/DL (0.2-1.0) Aspartate Amino Transf (AST/SGOT) 28 U/L (15-37) Alanine Aminotransferase (ALT/SGPT) 26 U/L (12-78) Alkaline Phosphatase 233 U/L (46-116) H Total Protein 6.4 G/DL (6.4-8.2) Albumin 2.0 G/DL (3.4-5.0) L Globulin 4.4 g/dL Albumin/Globulin Ratio 0.5 (1.0-2.7) L Microbiology Date/Time Source Procedure Growth Status 11/12/17 03:35 Blood Blood Culture - Preliminary NO GROWTH AFTER 48 HOURS Resulted 11/12/17 03:30 Blood Blood Culture - Preliminary NO GROWTH AFTER 48 HOURS Resulted MARCELL KING Nov 14, 2017 11:48
[2017-11-14 12:00] VITALS: BP 116/55
[2017-11-14 16:00] VITALS: BP 115/64
[2017-11-14 20:00] VITALS: BP 107/52
[2017-11-15] VITALS: BP 125/56
[2017-11-15] MEDS: Zoysn 3.37gm in NS 100ML IVPB SCH ×3 (00:16→17:21)
[2017-11-15 04:00] VITALS: BP 124/57
[2017-11-15 04:20] LABS: BASOPHILS % (AUTO) 1.1 % (0.0-2.0); HEMATOCRIT 31.4 % (37.0-47.0); HEMOGLOBIN 10.3 G/DL (12.0-16.0); LYMPHOCYTES % (AUTO) 25.4 % (20.0-45.0); MEAN CORPUSCULAR VOLUME 99 FL (80-99); MONOCYTES % (AUTO) 8.3 % (1.0-10.0); NEUTROPHILS % (AUTO) 57.2 % (45.0-75.0); PLATELET COUNT 218 K/UL (150-450); RED BLOOD COUNT 3.16 M/UL (4.20-5.40); RED CELL DISTRIBUTION WIDTH 15.4 % (11.6-14.8)
[2017-11-15 04:35] LABS: ALANINE AMINOTRANSFERASE 25 U/L (12-78); ALBUMIN 2.1 G/DL (3.4-5.0); ALBUMIN/GLOBULIN RATIO 0.4 (1.0-2.7); ALKALINE PHOSPHATASE 250 U/L (46-116); ANION GAP 6 mmol/L (5-15); ASPARTATE AMINO TRANSFERASE 25 U/L (15-37); BILIRUBIN,TOTAL 0.2 MG/DL (0.2-1.0); BLOOD UREA NITROGEN 2 mg/dL (7-18); CALCIUM 8.9 MG/DL (8.5-10.1); CARBON DIOXIDE 27 MMOL/L (21-32); CHLORIDE 108 MMOL/L (98-107); CREATININE 0.5 MG/DL (0.55-1.30); PHOSPHORUS 3.1 MG/DL (2.5-4.9); POTASSIUM 3.9 MMOL/L (3.5-5.1); SODIUM 141 MMOL/L (136-145)
[2017-11-15] MEDS: Phenytoin Susp 100mg/4ml GT SCH ×2 (05:24→14:39)
[2017-11-15 08:00] VITALS: BP 102/56
[2017-11-15] MEDS: NS w/KCl 20mEq 1,000 ML IV SCH ×2 (08:42→17:22)
[2017-11-15] MEDS: levETIRAcetam 500mg/5ml Liquid GT SCH (08:42)
[2017-11-15] MEDS: Heparin 5000 units/ml inj SUBQ SCH (08:45)
--- NOTE | 2017-11-15 11:03 | Pulmonology Progress Note ---
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 Subjective ROS Limited/Unobtainable: No Constitutional: Reports: no symptoms HEENT: Repors: no symptoms Respiratory: Reports: no symptoms Allergies: Coded Allergies: PEANUT (Verified Allergy, Unknown, 09/22/16) Objective Last 24 Hour Vital Signs Date Time Temp Pulse Resp B/P (MAP) Pulse Ox O2 Delivery O2 Flow Rate FiO2 11/15/17 10:45 70 18 30 11/15/17 08:48 61 18 35 11/15/17 08:00 65 11/15/17 08:00 40 11/15/17 08:00 98.3 67 14 102/56 100 Mechanical Ventilator 40 98.3 11/15/17 07:26 72 18 40 11/15/17 04:58 71 15 40 11/15/17 04:00 40 11/15/17 04:00 59 11/15/17 04:00 96.6 68 15 124/57 100 Mechanical Ventilator 40 96.6 11/15/17 02:53 69 17 40 11/15/17 00:41 62 14 40 11/15/17 00:00 73 11/15/17 00:00 97.7 71 15 125/56 98 Mechanical Ventilator 40 97.7 11/14/17 22:38 75 15 40 11/14/17 20:34 64 14 40 11/14/17 20:00 40 11/14/17 20:00 97.7 71 16 107/52 100 Mechanical Ventilator 40 97.7 11/14/17 20:00 48 11/14/17 19:12 50 14 40 11/14/17 16:52 66 11/14/17 16:42 75 13 40 11/14/17 16:00 98.1 70 17 115/64 100 Mechanical Ventilator 40 98.1 11/14/17 16:00 40 11/14/17 14:52 60 14 40 11/14/17 13:21 70 23 40 11/14/17 12:00 98.2 66 16 116/55 100 Mechanical Ventilator 40 98.2 11/14/17 12:00 40 11/14/17 11:50 53 11/14/17 11:16 63 14 40 Intake and Output 11/14/17 11/15/17 19:00 07:00 Intake Total 1880.0 ml 1713.3 ml Output Total 700 ml 1200 ml Balance 1180.0 ml 513.3 ml Intake Free Water 60 ml 60 ml IV Total 1610.0 ml 1503.3 ml Tube Feeding 210 ml 150 ml Output Urine Total 700 ml 1200 ml # Bowel Movements 4 1 Objective General Appearance: WD/WN HEENT: normocephalic, atraumatic, anicteric Respiratory/Chest: chest wall non-tender, lungs clear Cardiovascular: normal peripheral pulses, normal rate, regular rhythm Abdomen: normal bowel sounds, soft, non tender Genitourinary: normal external genitalia Extremities: no cyanosis Skin: no rash Laboratory Tests 11/15/17 03:50: White Blood Count 6.0, Red Blood Count 3.16L, Hemoglobin 10.3L, Hematocrit 31.4L , Mean Corpuscular Volume 99, Mean Corpuscular Hemoglobin 32.7H, Mean Corpuscular Hemoglobin Concent 32.9, Red Cell Distribution Width 15.4H, Platelet Count 218, Mean Platelet Volume 8.7, Neutrophils (%) (Auto) 57.2, Lymphocytes (%) (Auto) 25.4, Monocytes (%) (Auto) 8.3, Eosinophils (%) (Auto) 8.0H, Basophils (%) (Auto) 1.1, Sodium Level 141, Potassium Level 3.9, Chloride Level 108H, Carbon Dioxide Level 27, Anion Gap 6, Blood Urea Nitrogen 2L, Creatinine 0.5L, Estimat Glomerular Filtration Rate , Glucose Level 94, Calcium Level 8.9, Phosphorus Level 3.1, Magnesium Level 1.8, Total Bilirubin 0.2, Aspartate Amino Transf (AST/SGOT) 25, Alanine Aminotransferase (ALT/SGPT) 25, Alkaline Phosphatase 250H, Total Protein 6.9, Albumin 2.1L, Globulin 4.8, Albumin/Globulin Ratio 0.4L Current Medications Medications (Trade) Dose Ordered Sig/Bouabcar Route PRN Reason Start Time Stop Time Status Last Admin Dose Admin Acetaminophen (Tylenol) 650 mg Q4H PRN ORAL T>100.5 11/08/17 15:30 12/08/17 15:29 Dextrose (Dextrose 50%) STAT PRN IV Hypoglycemia 11/08/17 15:30 12/08/17 15:29 Heparin Sodium (Porcine) (Heparin 5000 units/ml) 5,000 units EVERY 12 HOURS SUBQ 11/08/17 21:00 12/08/17 20:59 11/15/17 08:45 Levetiracetam (Keppra) 1,500 mg Q12HR GT 11/08/17 21:00 12/08/17 20:59 11/15/17 08:42 Levothyroxine Sodium (Synthroid) 50 mcg DAILY@0600 GT 11/10/17 06:00 12/10/17 05:59 11/15/17 05:24 Linezolid 300 ml @ 300 mls/hr Q12HR@0600,1800 IVPB 11/11/17 18:00 11/18/17 17:59 11/15/17 05:25 Lorazepam (Ativan 2mg/ml 1ml) 2 mg Q2H PRN IV For Anxiety 11/08/17 15:30 11/15/17 15:29 Morphine Sulfate (Morphine Sulfate) 4 mg Q4H PRN IVP Severe Pain (Pain Scale 7-10) 11/08/17 15:30 11/15/17 15:29 Ondansetron HCl (Zofran) 4 mg Q6H PRN IVP Nausea & Vomiting 11/08/17 15:30 12/08/17 15:29 Phenytoin (Dilantin) 200 mg Q8HR GT 11/08/17 22:00 12/08/17 21:59 11/15/17 05:24 Piperacillin Sod/ Tazobactam Sod 3.375 gm/Sodium Chloride 110 ml @ 27.5 mls/hr Q8HR@0000,1000,1800 IVPB 11/09/17 18:00 11/16/17 17:59 11/15/17 10:29 Polyethylene Glycol (Miralax) 17 gm DAILYPRN PRN ORAL Constipation 11/08/17 15:30 12/08/17 15:29 Sodium Chloride 1,000 ml @ 100 mls/hr Q10H IV 11/09/17 02:00 12/09/17 01:59 11/15/17 08:42 Savi Rodriguez MD Nov 15, 2017 11:03
[2017-11-15 12:00] VITALS: BP 104/53
--- NOTE | 2017-11-15 12:06 | Infectious Diseases Prog Note ---
Assessment/Plan Assessment/Plan ASSESSMENT: The patient is a 77-year-old female with, Pneum Scx : PsA (S zosyn; R cipro), P. mirabilis (S. Zosyn, Ceftriaxone; R cipro ), Group G strep CXray : Persistent right basilar infiltrate, over 2 days Ucx : VRE 100K Fever, SP Leukocytosis,SP -cdiff neg bacteremia : Cons -likely contaminant -11/08 Bcx 10/08 CoNS repeat bcx 11/12 NTD Transaminitis and elevated alkaline phosphatase, hepatitis panel : neg (2016 ) Abd uS: Negative limited right upper quadrant ultrasound. No evidence of gallstones or dilated ducts History of multiple drug-resistant Klebsiella UTI History of anoxic encephalopathy. sp trach vent and PEG placement Seizure disorder Breast cancer Morbid obesity CHF HTN Diabetes Anemia PLAN: continue the patient on IV Zosyn d# 7/ 7 for PNA , and Zyvox d# 5 / 5 for VRE UTI -11/11 SP IV Vancomcyin #3 Monitor CBC and BMP f/u repeat BlCx Monitor chest x-ray. Subjective Allergies: Coded Allergies: PEANUT (Verified Allergy, Unknown, 09/22/16) Subjective afebrile no leukocytosis awaiting repeat Bcx Objective Vital Signs Last 24 Hour Vital Signs Date Time Temp Pulse Resp B/P (MAP) Pulse Ox O2 Delivery O2 Flow Rate FiO2 11/15/17 10:45 70 18 30 11/15/17 08:48 61 18 35 11/15/17 08:00 65 11/15/17 08:00 40 11/15/17 08:00 98.3 67 14 102/56 100 Mechanical Ventilator 40 98.3 11/15/17 07:26 72 18 40 11/15/17 04:58 71 15 40 11/15/17 04:00 40 11/15/17 04:00 59 11/15/17 04:00 96.6 68 15 124/57 100 Mechanical Ventilator 40 96.6 11/15/17 02:53 69 17 40 11/15/17 00:41 62 14 40 11/15/17 00:00 73 11/15/17 00:00 97.7 71 15 125/56 98 Mechanical Ventilator 40 97.7 11/14/17 22:38 75 15 40 11/14/17 20:34 64 14 40 3/13/18 20:00 40 11/14/17 20:00 97.7 71 16 107/52 100 Mechanical Ventilator 40 97.7 11/14/17 20:00 48 11/14/17 19:12 50 14 40 11/14/17 16:52 66 11/14/17 16:42 75 13 40 11/14/17 16:00 98.1 70 17 115/64 100 Mechanical Ventilator 40 98.1 11/14/17 16:00 40 11/14/17 14:52 60 14 40 11/14/17 13:21 70 23 40 Height (Feet): 5 Height (Inches): 4.00 Weight (Pounds): 265 Objective General Appearance: WD/WN HEENT: normocephalic, anicteric, status post trach Respiratory/Chest: chest wall non-tender, normal breath sounds Breasts: no masses Cardiovascular: regular rhythm Abdomen: normal bowel sounds, no organomegaly, no scars Genitourinary: normal external genitalia Skin: no lesions Laboratory Tests Test 11/15/17 03:50 White Blood Count 6.0 K/UL (4.8-10.8) Red Blood Count 3.16 M/UL (4.20-5.40) L Hemoglobin 10.3 G/DL (12.0-16.0) L Hematocrit 31.4 % (37.0-47.0) L Mean Corpuscular Volume 99 FL (80-99) Mean Corpuscular Hemoglobin 32.7 PG (27.0-31.0) H Mean Corpuscular Hemoglobin Concent 32.9 G/DL (32.0-36.0) Red Cell Distribution Width 15.4 % (11.6-14.8) H Platelet Count 218 K/UL (150-450) Mean Platelet Volume 8.7 FL (6.5-10.1) Neutrophils (%) (Auto) 57.2 % (45.0-75.0) Lymphocytes (%) (Auto) 25.4 % (20.0-45.0) Monocytes (%) (Auto) 8.3 % (1.0-10.0) Eosinophils (%) (Auto) 8.0 % (0.0-3.0) H Basophils (%) (Auto) 1.1 % (0.0-2.0) Sodium Level 141 MMOL/L (136-145) Potassium Level 3.9 MMOL/L (3.5-5.1) Chloride Level 108 MMOL/L (98-107) H Carbon Dioxide Level 27 MMOL/L (21-32) Anion Gap 6 mmol/L (5-15) Blood Urea Nitrogen 2 mg/dL (7-18) L Creatinine 0.5 MG/DL (0.55-1.30) L Estimat Glomerular Filtration Rate mL/min (>60) Glucose Level 94 MG/DL (74-106) Calcium Level 8.9 MG/DL (8.5-10.1) Phosphorus Level 3.1 MG/DL (2.5-4.9) Magnesium Level 1.8 MG/DL (1.8-2.4) Total Bilirubin 0.2 MG/DL (0.2-1.0) Aspartate Amino Transf (AST/SGOT) 25 U/L (15-37) Alanine Aminotransferase (ALT/SGPT) 25 U/L (12-78) Alkaline Phosphatase 250 U/L (46-116) H Total Protein 6.9 G/DL (6.4-8.2) Albumin 2.1 G/DL (3.4-5.0) L Globulin 4.8 g/dL Albumin/Globulin Ratio 0.4 (1.0-2.7) L Current Medications Medications (Trade) Dose Ordered Sig/Boubacar Route PRN Reason Start Time Stop Time Status Last Admin Dose Admin Acetaminophen (Tylenol) 650 mg Q4H PRN ORAL T>100.5 11/08/17 15:30 12/08/17 15:29 Dextrose (Dextrose 50%) STAT PRN IV Hypoglycemia 11/08/17 15:30 12/08/17 15:29 Heparin Sodium (Porcine) (Heparin 5000 units/ml) 5,000 units EVERY 12 HOURS SUBQ 11/08/17 21:00 12/08/17 20:59 11/15/17 08:45 Levetiracetam (Keppra) 1,500 mg Q12HR GT 11/08/17 21:00 12/08/17 20:59 11/15/17 08:42 Levothyroxine Sodium (Synthroid) 50 mcg DAILY@0600 GT 11/10/17 06:00 12/10/17 05:59 11/15/17 05:24 Linezolid 300 ml @ 300 mls/hr Q12HR@0600,1800 IVPB 11/11/17 18:00 11/18/17 17:59 11/15/17 05:25 Lorazepam (Ativan 2mg/ml 1ml) 2 mg Q2H PRN IV For Anxiety 11/08/17 15:30 11/15/17 15:29 Morphine Sulfate (Morphine Sulfate) 4 mg Q4H PRN IVP Severe Pain (Pain Scale 7-10) 11/08/17 15:30 11/15/17 15:29 Ondansetron HCl (Zofran) 4 mg Q6H PRN IVP Nausea & Vomiting 11/08/17 15:30 12/08/17 15:29 Phenytoin (Dilantin) 200 mg Q8HR GT 11/08/17 22:00 12/08/17 21:59 11/15/17 05:24 Piperacillin Sod/ Tazobactam Sod 3.375 gm/Sodium Chloride 110 ml @ 27.5 mls/hr Q8HR@0000,1000,1800 IVPB 11/09/17 18:00 11/16/17 17:59 11/15/17 10:29 Polyethylene Glycol (Miralax) 17 gm DAILYPRN PRN ORAL Constipation 11/08/17 15:30 12/08/17 15:29 Sodium Chloride 1,000 ml @ 100 mls/hr Q10H IV 11/09/17 02:00 12/09/17 01:59 11/15/17 08:42 Sadia Medeiros M.D. Nov 15, 2017 12:06
--- NOTE | 2017-11-15 15:08 | Cardiology Report ---
APPROVED REPORT EKG Measurement Heart [id number] Sinus rhythm with Mobitz I second degree AV block. Right bundle branch block Cannot rule out Inferior infarct, age undetermined Abnormal ECG
[2017-11-15 16:00] VITALS: BP 103/52
[2017-11-15 20:00] VITALS: BP 136/67
--- NOTE | 2017-11-15 20:09 | Cardiology Progress Note ---
Assessment/Plan Assessment/Plan 1. Mobitz I second-degree atrioventricular block, intermittent in nature without prolonged pauses. 2. Chronic respiratory failure, on ventilator. 3. Persistent vegetative state. 4. Morbid obesity. 5. Hypertension. 6. Urinary tract infection. 7. bacteremia possible contamination ? 8. Anoxic brain injury history. tele noted still no sig pauses avoid neg chronotropic agents (med list reviewed none found) to snf no indication for any pacing Subjective ROS Limited/Unobtainable: Yes Subjective not verbal on the vent Objective Last 24 Hour Vital Signs Date Time Temp Pulse Resp B/P (MAP) Pulse Ox O2 Delivery O2 Flow Rate FiO2 11/15/17 19:03 71 12 30 11/15/17 17:30 65 14 30 11/15/17 16:00 40 11/15/17 16:00 98.0 67 18 103/52 98 Mechanical Ventilator 40 98.0 11/15/17 16:00 96 11/15/17 15:20 73 21 30 11/15/17 13:29 74 18 30 11/15/17 12:00 40 11/15/17 12:00 98.3 79 24 104/53 99 Mechanical Ventilator 40 98.3 11/15/17 12:00 86 11/15/17 10:45 70 18 30 11/15/17 08:48 61 18 35 11/15/17 08:00 65 11/15/17 08:00 40 11/15/17 08:00 98.3 67 14 102/56 100 Mechanical Ventilator 40 98.3 11/15/17 07:26 72 18 40 11/15/17 04:58 71 15 40 11/15/17 04:00 40 11/15/17 04:00 59 11/15/17 04:00 96.6 68 15 124/57 100 Mechanical Ventilator 40 96.6 11/15/17 02:53 69 17 40 11/15/17 00:41 62 14 40 11/15/17 00:00 73 11/15/17 00:00 97.7 71 15 125/56 98 Mechanical Ventilator 40 97.7 11/14/17 22:38 75 15 40 11/14/17 20:34 64 14 40 General Appearance: no apparent distress, on vent, patient on isolation Intake and Output 11/14/17 11/15/17 19:00 07:00 Intake Total 1880.0 ml 1713.3 ml Output Total 700 ml 1200 ml Balance 1180.0 ml 513.3 ml Intake Free Water 60 ml 60 ml IV Total 1610.0 ml 1503.3 ml Tube Feeding 210 ml 150 ml Output Urine Total 700 ml 1200 ml # Bowel Movements 4 1 Laboratory Tests Test 11/15/17 03:50 White Blood Count 6.0 K/UL (4.8-10.8) Red Blood Count 3.16 M/UL (4.20-5.40) L Hemoglobin 10.3 G/DL (12.0-16.0) L Hematocrit 31.4 % (37.0-47.0) L Mean Corpuscular Volume 99 FL (80-99) Mean Corpuscular Hemoglobin 32.7 PG (27.0-31.0) H Mean Corpuscular Hemoglobin Concent 32.9 G/DL (32.0-36.0) Red Cell Distribution Width 15.4 % (11.6-14.8) H Platelet Count 218 K/UL (150-450) Mean Platelet Volume 8.7 FL (6.5-10.1) Neutrophils (%) (Auto) 57.2 % (45.0-75.0) Lymphocytes (%) (Auto) 25.4 % (20.0-45.0) Monocytes (%) (Auto) 8.3 % (1.0-10.0) Eosinophils (%) (Auto) 8.0 % (0.0-3.0) H Basophils (%) (Auto) 1.1 % (0.0-2.0) Sodium Level 141 MMOL/L (136-145) Potassium Level 3.9 MMOL/L (3.5-5.1) Chloride Level 108 MMOL/L (98-107) H Carbon Dioxide Level 27 MMOL/L (21-32) Anion Gap 6 mmol/L (5-15) Blood Urea Nitrogen 2 mg/dL (7-18) L Creatinine 0.5 MG/DL (0.55-1.30) L Estimat Glomerular Filtration Rate mL/min (>60) Glucose Level 94 MG/DL (74-106) Calcium Level 8.9 MG/DL (8.5-10.1) Phosphorus Level 3.1 MG/DL (2.5-4.9) Magnesium Level 1.8 MG/DL (1.8-2.4) Total Bilirubin 0.2 MG/DL (0.2-1.0) Aspartate Amino Transf (AST/SGOT) 25 U/L (15-37) Alanine Aminotransferase (ALT/SGPT) 25 U/L (12-78) Alkaline Phosphatase 250 U/L (46-116) H Total Protein 6.9 G/DL (6.4-8.2) Albumin 2.1 G/DL (3.4-5.0) L Globulin 4.8 g/dL Albumin/Globulin Ratio 0.4 (1.0-2.7) L MARCELL KING Nov 15, 2017 20:09
[2017-11-15] MEDS ORDERED: Sterile Water Irrig 1000ml IRRIG ONE (20:14)
[2017-11-15] MEDS ORDERED: NS 275ml ONE (20:14)
--- NOTE | 2017-11-16 21:28 | Cardiology Report ---
APPROVED REPORT EXAM: Two-dimensional and M-mode echocardiogram with Doppler and color Doppler. INDICATION 2nd degree heart block M-Mode DIMENSIONS IVSd1.3 (0.7-1.1cm)Left Atrium (MM)3.6 (1.6-4.0cm) LVDd4.7 (3.5-5.6cm)Aortic Root2.9 (2.0-3.7cm) PWd1.2 (0.7-1.1cm)Aortic Cusp Exc.1.7 (1.5-2.0cm) IVSs1.7 cm LVDs3.3 (2.5-4.0cm) PWs1.4 cm Technically difficult study due to poor acoustinal windows and pts breathing . Normal left ventricular chamber size, systolic function and wall motion to extent visualized. Left ventricular ejection fraction estimated to be 55 %. Mild left ventricular hypertrophy by 2-D. No evidence of pericardial effusion. Evidence of Pleural effusion . All other cardiac chamber sizes are within normal limits. Focal aortic valve sclerosis with adequate cusp excursion. Heavy Thickened mitral valve leaflets with normal excursion. Heavy Mitral annulus and aortic root calcification. Pulmonic valve not well visualized. Normal tricuspid valve structure. Subcostal views not obtained due to GI-tube . A color flow and spectral Doppler study was performed and revealed: No aortic regurgitation. Mild mitral regurgitation. Normal left ventricular diastolic function . Mild tricuspid regurgitation. Tricuspid systolic velocities suggests peak right ventricular systolic pressure of 23 mmHg No Pulmonic regurgitation present.
--- NOTE | 2017-11-17 12:43 | Discharge Summary ---
Discharge Summary Hospital Course Date of Admission Nov 08, 2017 at 14:28 Date of Discharge Nov 15, 2017 at 20:15 Admitting Diagnosis fever,sepsis HPI Kate Donovan is a 77 year old female who was admitted on Nov 08, 2017 at 14: 28 for Fever, Sepsis Hospital Course [id number] Discharge Discharge Disposition Patient was discharged to SNF/Subacute Facility(03) Discharge Diagnoses: Jeana Larios NP Nov 17, 2017 12:43
--- NOTE | 2017-11-18 01:00 | Discharge Summary 2 SIG ---
DATE OF ADMISSION: 11/08/2017 DATE OF DISCHARGE: 11/15/2017 CONSULTANTS: 1. Delmer Madera M.D. 2. Mathew Minor M.D. BRIEF HOSPITAL COURSE: The patient is a 77-year-old female with history of chronic respiratory failure status post trach and PEG, [facility] resident presented to ED for evaluation of fever. She has past medical history significant for hypertension, COPD, CVA/TIA, seizure, history of hypothyroidism, hypertension. On evaluation at ED, blood work showed leukocytosis, WBC was 18.8. Potassium was 2.7. Lactic acid was 1.4 and troponin was normal. She was given potassium supplement. Chest x-ray done showed right lower lobe infiltrate. She was then admitted to [facility] for evaluation of pneumonia and hypokalemia. She was followed by Infectious Disease specialist. The patient was initially started on IV vancomycin and Zosyn pending culture results. She came in with blisters on the left arm with sacral full-thickness scar and scar tissue on the left and right ischial tuberosity. She was given local wound care with frequent offloading and repositioning. Initial blood culture showed growth of gram-positive cocci. Urine culture with enterococcus. A repeat blood culture was not done. Sputum culture with Streptococcus Proteus and Pseudomonas. Stool C. difficile was negative. Vancomycin was then discontinued and was placed on Zyvox together with Zosyn. Repeat blood culture did not isolate any growth. She also had an episode of bradycardia. On telemetry, was noted to have episodes of bradycardia with second-degree AV block. Cardiology was then consulted. The patient had episodes of second-degree Mobitz 1 AV block, which appeared to be asymptomatic and not associated with any change in blood pressure or any hemodynamic compromise. She was not on any medications that would cause bradycardia. There was no indication for permanent pacemaker. She had an echocardiogram done that showed ejection fraction of 55% with normal left ventricular size, function, and wall motion. No pericardial effusion. PA pressure of 23. She had an elevated alkaline phosphatase and AST. Abdominal ultrasound done was negative with no evidence of gallstones or dilated ducts. There was no further significant pauses noted on telemetry. The patient was eventually cleared for discharge back to SNF. FINAL DIAGNOSES: 1. Acute on chronic respiratory failure. 2. Pneumonia. 3. Bacteremia. 4. Sepsis. 5. Seizure disorder. 6. Vegetative state. 7. Functional quadriplegia. 8. Old cerebrovascular accident. 9. Hypertension. 10. Elevated liver transaminases. 11. Anoxic encephalopathy. 12. Status post tracheostomy, ventilator, and gastrostomy. 13. Seizure disorder. 14. Morbid obesity. 15. Breast carcinoma. 16. Anemia. 17. Chronic diastolic congestive heart failure. 18. Mobitz 1 second-degree atrioventricular block. 19. Blister on left arm, present on admission. DISPOSITION: The patient was discharged to [facility]. DISCHARGE MEDICATIONS: Refer to medication list. Savi Rodriguez M.D. I have been assigned to dictate discharge summary on this account and I was not involved in the patient's management. Jeana Larios N.P. DR: Joey JOB#: [id number] CC: ROMINA
== END 2017-11-15 20:15 | DRG 870 ==
LOC: EDBD 12:41 → EDBEDREQ 12:59 → EMR 13:10 → EDBEDREQ 13:26 → 2W 14:28 → EDBEDREQ 14:43 → 2W 23:09
PROC: 5A1955Z Respiratory Ventilation, Greater than 96 Consecutive Hours (ICD-10-PCS; principal; 2017-11-08)
DX: A41.9 Sepsis, unspecified organism (principal); J96.21 Acute and chronic respiratory failure with hypoxia; J18.9 Pneumonia, unspecified organism; G93.1 Anoxic brain damage, not elsewhere classified; R40.3 Persistent vegetative state; Z99.11 Dependence on respirator [ventilator] status; J44.0 Chronic obstructive pulmonary disease with (acute) lower respiratory infection; I11.0 Hypertensive heart disease with heart failure; I50.32 Chronic diastolic (congestive) heart failure; R53.2 Functional quadriplegia; Z68.42 Body mass index [BMI] 45.0-49.9, adult; N39.0 Urinary tract infection, site not specified; Z93.0 Tracheostomy status; G40.909 Epilepsy, unspecified, not intractable, without status epilepticus; E66.01 Morbid (severe) obesity due to excess calories; E11.9 Type 2 diabetes mellitus without complications; D64.9 Anemia, unspecified; I44.1 Atrioventricular block, second degree; E87.6 Hypokalemia; Z93.1 Gastrostomy status; Z79.82 Long term (current) use of aspirin; Z79.01 Long term (current) use of anticoagulants
CPT/HCPCS: 36415; 71045; 76705; 80053; 80069; 80202; 81003; 82550; 82553; 83605; 83735; 83880; 84100; 84484; 85007; 85025; 87040; 87070; 87081; 87086; 87181; 87205; 87324; 93005; 93306; 93970; 94002; 94003; 99285; J8499

== ENCOUNTER 2018-03-02 20:25 | Emergency (ER) | payer OTHER, MEDICAID ==
[~2018-03-02] VITALS: Ht 157.5 cm; Wt 136.1 kg
[~2018-03-02 20:25] MED LIST changes: +DOCUSATE SODIU100 MG GT; +DULCOLAX10 MG RC; +LEVETIRACE100 MG/1 M GT; +LEVOTHYROXINE50 MCG GT; +ZOFRAN8 MG GT
[2018-03-02] MEDS ORDERED: Gastrograffin 30ml ORAL ONE (20:45)
--- NOTE | 2018-03-02 20:48 | Emergency Room Report ---
History of Present Illness General Chief Complaint: Malfunctioning Gastric Tube Source: Medical Record Present Illness HPI 77-year-old female nonverbal, trach PEG tube dependent, sent from [facility] For swelling just above G-tube insertion site, and concern for pain with use of G-tube. No further history was given and patient is nonverbal. Allergies: Coded Allergies: PEANUT (Verified Allergy, Unknown, 09/22/16) Patient History Limited by: medical condition Past Medical History: see triage record Now: No Reviewed Nursing Documentation: PMH: Agreed; PSxH: Agreed Nursing Documentation-PMH Hx Cardiac Problems: Yes Hx Hypertension: Yes Hx Pacemaker: No Hx Asthma: No Hx COPD: Yes Hx Diabetes: Yes - Hypothyroid Hx Cancer: No Hx Gastrointestinal Problems: No Hx Neurological Problems: Yes Hx Cerebrovascular Accident: Yes Hx Transient Ischemic Attacks: No Hx Dementia: Yes Hx Alzheimer's Disease: No Hx Parkinson's Disease: No Hx Meningitis: No Hx Seizures: Yes Hx Epilepsy: No Hx Multiple Sclerosis: No Hx Cerebral Palsy: No Hx Amyotrophic Lat Sclerosis: No Hx Guillian-Dairy Syndrome: No Hx Paralysis: Yes - CVA Hx Peripheral Neuropathy: No Hx Spinal Cord Injury: No Hx Head Trauma: No Hx Traumatic Brain Injury: No Hx Memory Loss: Yes Hx Concentration Difficulty: Yes Hx Speech Problem: Yes Hx Tremors: No Hx Vertigo: No Hx Dizziness: No Hx Syncope: No Hx Headaches: No Hx Aphasia: No Hx Dysphasia: No Hx Weakness: Yes Hx Fatigue: No Hx Neurologic Surgery: No Hx Brain Shunt: No Review of Systems All Other Systems: limited Physical Exam Vital Signs Date Time Temp Pulse Resp B/P (MAP) Pulse Ox O2 Delivery O2 Flow Rate FiO2 03/02/18 20:31 98.2 99 27 125/71 91 Trach Collar 98.2 Sp02 EP Interpretation: reviewed, normal General Appearance: no apparent distress, alert, non-toxic Head: normocephalic Eyes: bilateral eye normal inspection, bilateral eye PERRL ENT: normal ENT inspection, normal pharynx, no angioedema, moist mucus membranes Neck: normal inspection, supple, supple/symm/no masses, tracheotomy Respiratory: chest non-tender, lungs clear, normal breath sounds, chest symmetrical, palpation of chest normal Cardiovascular #1: normal peripheral pulses, regular rate, rhythm Cardiovascular #2: 2+ radial (R), 2+ radial (L) Gastrointestinal: normal inspection, non tender, soft, no mass, no guarding, no rebound, distended, other - LUQ PEG site c/d/i, no erythema, no breakdown, but 2cm area of protrusion at superior margin of PEG entrance site, possible subcutaneous air Rectal: deferred Genitourinary: normal inspection, no CVA tenderness Musculoskeletal: back normal, gait/station normal, normal range of motion, non- tender, no calf tenderness Neurologic: alert Skin: normal color, no rash, warm/dry, normal turgor Lymphatic: no adenopathy Medical Decision Making Diagnostic Impression: Primary Impression: Abdominal pain ER Course Patient has a difficult evaluation given she is nonverbal, secondary to anoxic encephalopathy, she was trach, PEG dependent. Labs do reveal elevated alkaline phosphatase, x-ray of abdomen reveals no issues with G-tube being dislodged. Patient is pending results of CT scan, may need ultrasound if CT is equivocal. Patient will be signed out to oncoming physician pending CT results and further evaluation. She remains stable at this time. EKG Diagnostic Results EKG Time: 21:04 EP Interpretation: no st-t changes, no TWI's Rate: normal Rhythm: NSR ST Segments: no acute changes Rhythm Strip Diag. Results Rhythm Strip Time: 20:47 EP Interpretation: yes Rate: 120 Rhythm: NSR, no PVC's, no ectopy Other X-Ray Diagnostic Results Other X-Ray Diagnostic Results : X-Ray ordered: KUB # of Views/Limited Vs Complete: 1 View Indication: Other EP Interpretation: Yes Interpretation: nonspecific bowel gas - distended large bowel loops , no sbo , other - normal gastrograffin seen in stomach Impression: No acute disease Electronically Signed by: Noa Kee MD CT/MRI/US Diagnostic Results CT/MRI/US Diagnostic Results : Imaging Test Ordered: ct abd/pelvis without contrast Last Vital Signs Date Time Temp Pulse Resp B/P (MAP) Pulse Ox O2 Delivery O2 Flow Rate FiO2 03/02/18 20:31 98.2 99 27 125/71 91 Trach Collar 98.2 NOA KEE M.D Mar 02, 2018 20:48
[2018-03-02 21:20] LABS: BASOPHILS % (AUTO) 1.1 % (0.0-2.0); EOSINOPHILS % (AUTO) 4.2 % (0.0-3.0); HEMOGLOBIN 12.9 G/DL (12.0-16.0); LYMPHOCYTES % (AUTO) 16.2 % (20.0-45.0); MEAN CORPUSCULAR VOLUME 93 FL (80-99); NEUTROPHILS % (AUTO) 71.6 % (45.0-75.0); PLATELET COUNT 288 K/UL (150-450); RED CELL DISTRIBUTION WIDTH 15.4 % (11.6-14.8); WHITE BLOOD COUNT 9.1 K/UL (4.8-10.8)
[2018-03-02 21:33] LABS: ANION GAP 5 mmol/L (5-15); BLOOD UREA NITROGEN 11 mg/dL (7-18); CALCIUM 9.8 MG/DL (8.5-10.1); CARBON DIOXIDE 28 MMOL/L (21-32); CHLORIDE 99 MMOL/L (98-107); CREATININE 0.6 MG/DL (0.55-1.30); POTASSIUM 3.9 MMOL/L (3.5-5.1); SODIUM 132 MMOL/L (136-145)
[2018-03-02 21:38] LABS: ALANINE AMINOTRANSFERASE 52 U/L (12-78); ALBUMIN 2.7 G/DL (3.4-5.0); ALBUMIN/GLOBULIN RATIO 0.4 (1.0-2.7); ALKALINE PHOSPHATASE 353 U/L (46-116); ASPARTATE AMINO TRANSFERASE 67 U/L (15-37); BILIRUBIN,TOTAL 0.4 MG/DL (0.2-1.0)
--- NOTE | 2018-03-02 22:01 | Diagnostic Imaging Report ---
EXAM: CT Abdomen and Pelvis Without Intravenous Contrast CLINICAL HISTORY: PAIN TECHNIQUE: Axial computed tomography images of the abdomen and pelvis without intravenous contrast. CTDI is 19.9 mGy and DLP is 1000 mGy-cm. One or more of the following dose reduction techniques were used: automated exposure control, adjustment of the mA and/or kV according to patient size, use of iterative reconstruction technique. COMPARISON: No relevant prior studies available. FINDINGS: Lung bases: Scattered bibasilar pulmonary nodular foci and dependent atelectasis. ABDOMEN: Liver: Unremarkable. Gallbladder and bile ducts: Extremely contracted gallbladder. This can be a normal finding. No calcified stones. No ductal dilation. Pancreas: Unremarkable. No ductal dilation. Spleen: Unremarkable. No splenomegaly. Adrenals: Unremarkable. No mass. Kidneys and ureters: Benign bilateral renal cysts measuring up to 3.5 cm. A was unremarkable kidneys. No obstructing stones. No hydronephrosis. Stomach and bowel: Unremarkable. No obstruction. No mucosal thickening. PELVIS: Appendix: Colonic enlargement of the sigmoid colon with central positioning of the cecum. Prominent stool burden and portions of the colon. Prominent liquid stool contents in the rectum. Appendix not definitively seen, no secondary signs of acute appendicitis. Bladder: Unremarkable. No stones. Reproductive: Unremarkable as visualized. ABDOMEN and PELVIS: Intraperitoneal space: Unremarkable. No free air. No significant fluid collection. Bones/joints: Osteopenia with multilevel age-related degenerative findings. No acute fracture. No dislocation. Soft tissues: Unremarkable. Vasculature: Unremarkable. No abdominal aortic aneurysm. Lymph nodes: Unremarkable. No enlarged lymph nodes. Tubes, lines and devices: Percutaneous gastrostomy tube, this tube is retracted likely by at least 3.3 cm and is malpositioned. IMPRESSION: 1. Lung base findings which could represent bilateral pneumonia in the proper clinical setting. Recommend follow-up CT chest in 2-3 months to document resolution. 2. Percutaneous gastrostomy tube, this tube is retracted likely by at least 3.3 cm and is malpositioned. 3. Colonic findings which may represent infectious or inflammatory colitis. 4. Otherwise unremarkable study without acute abnormality.
--- NOTE | 2018-03-02 22:22 | Diagnostic Imaging Report ---
EXAM: XR Abdomen, 2 Views CLINICAL HISTORY: TUBE PLCMT TECHNIQUE: Frontal view of the abdomen/pelvis with upright view of the abdomen. COMPARISON: No relevant prior studies available. FINDINGS: Intraperitoneal space: No free air. Gastrointestinal tract: Dilated loops of gas-filled bowel seen throughout the upper abdomen. Bones/joints: Unremarkable. Tubes, lines and devices: Percutaneous G-tube with demonstration of enteric contrast which partially fills the stomach. No evidence of leak. IMPRESSION: 1. Percutaneous G-tube with demonstration of enteric contrast which partially fills the stomach. No evidence of leak. 2. Dilated loops of gas-filled bowel seen throughout the upper abdomen. Obstruction is not excluded.
[2018-03-02 22:28] LABS: APPEARANCE,URINE CLEAR; BILIRUBIN, URINE NEGATIVE (NEGATIVE); GLUCOSE, URINE (UA) NEGATIVE (NEGATIVE); KETONES,URINE NEGATIVE (NEGATIVE); LEUKOCYTE ESTERASE ,URINE 1+ (NEGATIVE); NITRITE,URINE POSITIVE (NEGATIVE); PH,URINE 6.5 (4.5-8.0); PROTEIN,URINE NEGATIVE (NEGATIVE); UROBILINOGEN,URINE NORMAL MG/DL (0.0-1.0)
[2018-03-02 22:29] LABS: COLOR,URINE YELLOW
[2018-03-02 22:36] VITALS: BP 119/65
[2018-03-02] MEDS ORDERED: cefTRIAXone 1 GM in NS 55 ML IVPB ONE (22:45)
[2018-03-02] MEDS ORDERED: ZINC SULFATE220 M1 GT (23:05)
--- NOTE | 2018-03-02 23:33 | Diagnostic Imaging Report ---
EXAM: XR Abdomen, 2 Views CLINICAL HISTORY: TUBE PLCMT TECHNIQUE: Frontal view of the abdomen/pelvis with upright view of the abdomen. COMPARISON: ABX dated 03/02/18 at 2146 FINDINGS: Intraperitoneal space: No free air. Gastrointestinal tract: Chronic gas-filled loops of bowel seen within the upper abdomen. No dilation. Bones/joints: Unremarkable. Tubes, lines and devices: Percutaneous G-tube with administration of enteric contrast within the stomach. No evidence of leak. IMPRESSION: Percutaneous G-tube with administration of enteric contrast within the stomach. No evidence of leak.
[2018-03-02] MEDS ORDERED: NITROFURANTOIN100 M2 GT (23:46)
[2018-03-03 00:06] VITALS: BP 122/55
[2018-03-03 00:22] VITALS: BP 122/55
== END 2018-03-03 00:22 ==
LOC: EDBD 20:25 → EMR 21:02
DX: R10.9 Unspecified abdominal pain (principal); Z93.1 Gastrostomy status; G93.1 Anoxic brain damage, not elsewhere classified; Z93.0 Tracheostomy status; R79.89 Other specified abnormal findings of blood chemistry; I10 Essential (primary) hypertension; J44.9 Chronic obstructive pulmonary disease, unspecified; E03.9 Hypothyroidism, unspecified; I69.369 Other paralytic syndrome following cerebral infarction affecting unspecified side
CPT/HCPCS: 36415; 74018; 74176; 80053; 81003; 83690; 85025; 87086; 87181; 94002; 94664; 96365; 99284; J0696; Q9963

== ENCOUNTER 2018-03-13 17:21 | Inpatient (IN) | payer MEDICARE, MEDICAID ==
[~2018-03-13] VITALS: Ht 167.6 cm; Wt 99.8 kg
[~2018-03-13 17:21] MED LIST changes: +NITROFURANTOIN100 M2 GT
--- NOTE | 2018-03-13 17:36 | Emergency Room Report ---
History of Present Illness General Chief Complaint: Fever Source: Patient, Medical Record Present Illness HPI 77-year-old female history of anoxic brain injury chronic respiratory failure trach, PEG, burning for the detention saying the patient had low blood pressure. Patient is nonverbal unable to give any kind of history. EMS states when he arrived patient had a blood pressure of systolic 122/70. No other history is able to be obtained Allergies: Coded Allergies: PEANUT (Verified Allergy, Unknown, 09/22/16) Patient History Past Medical History: see triage record Past Surgical History: unable to obtain Pertinent Family History: unable to obtain Reviewed Nursing Documentation: PMH: Agreed; PSxH: Agreed Nursing Documentation-PMH Past Medical History: No History, Except For Hx Cardiac Problems: Yes - Heart Failure, Hypothyroidism, Anemia, Hpotension, Hyperlipidemia Hx Hypertension: Yes - STEMI Hx Pacemaker: No Hx Asthma: No Hx COPD: Yes - Chronic Resp. Failure, Trach. Dependent, PNA, Sepsis Hx Diabetes: Yes - Type 1 Hx Cancer: Yes - Breast Hx Gastrointestinal Problems: Yes - Dysphagia, G-tube, UTI, Acute Cholecystitis , Diverticulosis Hx Neurological Problems: Yes - Paraplegia Hx Cerebrovascular Accident: Yes - Encephalpathy Hx Transient Ischemic Attacks: No Hx Dementia: Yes Hx Alzheimer's Disease: No Hx Parkinson's Disease: No Hx Meningitis: No Hx Seizures: Yes Hx Epilepsy: No Hx Multiple Sclerosis: No Hx Cerebral Palsy: No Hx Amyotrophic Lat Sclerosis: No Hx Guillian-Paris Syndrome: No Hx Paralysis: Yes - CVA Hx Peripheral Neuropathy: No Hx Spinal Cord Injury: No Hx Head Trauma: No Hx Traumatic Brain Injury: No Hx Memory Loss: Yes Hx Concentration Difficulty: Yes Hx Speech Problem: Yes Hx Tremors: No Hx Vertigo: No Hx Dizziness: No Hx Syncope: No Hx Headaches: No Hx Aphasia: No Hx Dysphasia: No Hx Weakness: Yes Hx Fatigue: No Hx Neurologic Surgery: No Hx Brain Shunt: No Review of Systems All Other Systems: limited - nonverbal Physical Exam Vital Signs Date Time Temp Pulse Resp B/P (MAP) Pulse Ox O2 Delivery O2 Flow Rate FiO2 03/13/18 17:20 98.6 106 20 122/62 97 Mechanical Ventilator 98.6 Sp02 EP Interpretation: abnormal General Appearance: other - nonverbal, Chronically Ill Head: normocephalic, atraumatic Eyes: bilateral eye normal inspection, bilateral eye PERRL, bilateral eye EOMI ENT: other - +trach Neck: normal inspection, supple Respiratory: other - trached, mech b/s b/l Cardiovascular #1: normal inspection, regular rate, rhythm, normal capillary refill Cardiovascular #2: 2+ radial (R), 2+ radial (L) Gastrointestinal: other - peg tube in place. no griamce to deep palpation, ND, mandeep bs Musculoskeletal: normal inspection, back normal, normal range of motion, non- tender Neurologic: other - nonverbal, not responsive Psychiatric: other Skin: normal inspection, normal color, no rash, warm/dry, well hydrated, normal turgor Procedures Critical Care Time Critical Care Time 40-45 minutes of CC time 77-year-old female PEG tube trach, coming with hypertension, found to be septic PLAN: IV access, labs, lactate, troponin, Blood/Urine Cx, Abx, IVF Anticipate admission to ICU CC time also includes review of labs, review of EMR, discussion with family and paperwork from SNF, d/w hospitalist CC could include dosing of pressors, additional Abx CC time does not include procedures Central Line Central Line : Consent: Emergent Central Line Lumen: triple Maximal Sterile Barrier Tech: yes cap, yes mask, yes sterile gown, yes sterile gloves, yes large sterile sheet, yes hand hygiene, yes chlorhexidine prep Central Line Postion: femoral (L) Anesthesia: Lidocaine cc's of anesthesia: 6 Complications: none Central Line Post Position: sutured, good blood return Attempts: One Patient Tolerated: Well Complications: None Medical Decision Making Diagnostic Impression: Primary Impression: Septic shock Additional Impressions: UTI (urinary tract infection) Tracheostomy dependent ER Course 77-year-old female, bedbound nonverbal, trach, PEG, sent in for low BP from the detention. Reportedly by EMS her BP was normal DDX: Hypotension rule out dehydration hypovolemia sepsis Plan: Obtain labs, ua, EKG, CXR ER course: Patient is a hypotensive despite liter fluids, center line place a left femoral region without any current medications, started on norepinephrine Broad-spectrum antibiotics given Source likely 2/2 UTI Sepsis Re-examination Time: 733pm VS: Temp 100 HR 94 BP 100/78 RR 15 CVS: RRR Respiratory: mech b/s Peripheral pulses: 2+ radial Capillary refill: <2 seconds Skin exam: warm, dry, no rash, not mottled Disposition: Patient is to be admitted to ICU D/W hospitalist Dr Rodriguez Please note that this Emergency Department Report was dictated using [employer] application architect technology software, occasionally this can lead to erroneous entry secondary to interpretation by the dictation equipment. EKG Diagnostic Results EP Interpretation: Yes Rate: normal Rhythm: NSR ST Segments: T-wave inversionsV2, right bundle branch block ASA given to patient: No Rhythm Strip EP Interpretation: Yes Rate: 108 Rhythm: NSR, no PVCs, no ectopy Chest X-ray CXR: Ordered: Yes 1 view Indication: Altered mental status EP interpretation: Yes Interpretation: Cardiomegaly and bilateral pulmonary vascular congestion versus infiltrate Impression: Cardiomegaly and bilateral pulmonary vascular congestion versus infiltrate Electronically signed by Lm Hsieh MD Laboratory Tests Test 03/13/18 17:50 03/13/18 17:55 03/13/18 19:23 White Blood Count 24.3 K/UL (4.8-10.8) *H Red Blood Count 3.95 M/UL (4.20-5.40) L Hemoglobin 12.4 G/DL (12.0-16.0) Hematocrit 37.4 % (37.0-47.0) Mean Corpuscular Volume 95 FL (80-99) Mean Corpuscular Hemoglobin 31.4 PG (27.0-31.0) H Mean Corpuscular Hemoglobin Concent 33.2 G/DL (32.0-36.0) Red Cell Distribution Width 15.7 % (11.6-14.8) H Platelet Count 184 K/UL (150-450) Mean Platelet Volume 9.7 FL (6.5-10.1) Neutrophils (%) (Auto) % (45.0-75.0) Lymphocytes (%) (Auto) % (20.0-45.0) Monocytes (%) (Auto) % (1.0-10.0) Eosinophils (%) (Auto) % (0.0-3.0) Basophils (%) (Auto) % (0.0-2.0) Neutrophils % (Manual) Pending Lymphocytes % (Manual) Pending Platelet Estimate Pending Platelet Morphology Pending Prothrombin Time 11.1 SEC (9.30-11.50) Prothrombin Time INR 1.1 (0.9-1.1) PTT 27 SEC (23-33) Sodium Level 132 MMOL/L (136-145) L Potassium Level 3.3 MMOL/L (3.5-5.1) L Chloride Level 95 MMOL/L (98-107) L Carbon Dioxide Level 29 MMOL/L (21-32) Anion Gap 8 mmol/L (5-15) Blood Urea Nitrogen 18 mg/dL (7-18) Creatinine 1.0 MG/DL (0.55-1.30) Estimate Glomerular Filtration Rate mL/min (>60) Glucose Level 169 MG/DL (74-106) H Lactic Acid Level 2.40 mmol/L (0.4-2.0) H Calcium Level 9.5 MG/DL (8.5-10.1) Total Bilirubin 1.9 MG/DL (0.2-1.0) H Direct Bilirubin 1.6 MG/DL (0.0-0.3) H Aspartate Amino Transferase (AST) 67 U/L (15-37) H Alanine Aminotransferase (ALT) 48 U/L (12-78) Alkaline Phosphatase 241 U/L (46-116) H Total Creatine Kinase 28 U/L (26-308) Troponin I 0.000 ng/mL (0.000-0.056) Pro-B-Type Natriuretic Peptide 994 pg/mL (0-125) H Total Protein 8.6 G/DL (6.4-8.2) H Albumin 2.6 G/DL (3.4-5.0) L Globulin 6.0 g/dL Albumin/Globulin Ratio 0.4 (1.0-2.7) L Arterial Blood pH 7.443 (7.350-7.450) Arterial Blood Partial Pressure CO2 44.7 mmHg (35.0-45.0) Arterial Blood Partial Pressure O2 64.7 mmHg (75.0-100.0) L Arterial Blood HCO3 29.9 mmol/L (22.0-26.0) H Arterial Blood Oxygen Saturation 92.7 % (92.0-98.0) Arterial Blood Base Excess 5.1 Best Test Positive Urine Color Brown Urine Appearance Clear Urine pH 5 (4.5-8.0) Urine Specific [place] 1.015 (1.005-1.035) Urine Protein 2+ (NEGATIVE) H Urine Glucose (UA) Negative (NEGATIVE) Urine Ketones Negative (NEGATIVE) Urine Occult Blood 1+ (NEGATIVE) H Urine Nitrite Negative (NEGATIVE) Urine Bilirubin 1+ (NEGATIVE) H Urine Ictotest Positive Urine Urobilinogen 4 MG/DL (0.0-1.0) H Urine Leukocyte Esterase 1+ (NEGATIVE) H Urine RBC 2-4 /HPF (0 - 2) H Urine WBC 5-10 /HPF (0 - 2) H Urine Squamous Epithelial Cells Moderate /LPF (NONE/OCC) H Urine Amorphous Sediment Few /LPF (NONE) H Urine Bacteria Moderate /HPF (NONE) H Last Vital Signs Date Time Temp Pulse Resp B/P (MAP) Pulse Ox O2 Delivery O2 Flow Rate FiO2 03/13/18 17:20 98.6 106 20 122/62 97 Mechanical Ventilator 98.6 Disposition: ADMITTED INPATIENT Condition: Critical Lm Hsieh M.D. Mar 13, 2018 17:36
[2018-03-13] MEDS ORDERED: ATIVAN1 MG ORAL (17:54)
[2018-03-13] MEDS ORDERED: COLACE100 MG ORAL (17:54)
[2018-03-13] MEDS ORDERED: DILANTIN100 MG ORAL (17:54)
[2018-03-13] MEDS ORDERED: FLEET ENEMA133 ML RECTAL (17:58)
--- NOTE | 2018-03-13 18:09 | Diagnostic Imaging Report ---
. Indication: Altered mental status Technique: XRAY Chest 1v Comparison: 11/13/2017 Findings: Heart size and mediastinal contours are stable. Tracheostomy tube again noted. There is interstitial prominence with development of patchy bilateral airspace opacities, right greater than left. There is no pneumothorax. Osseous structures are stable. Impression: Interstitial opacification/edema and patchy bilateral airspace opacities, right greater than left. Although findings may be related to fluid overload/CHF with a probable baseline of chronic interstitial disease, superimposed pneumonia is not excluded. Clinical correlation/follow-up recommended.
[2018-03-13] MEDS ORDERED: Lidocaine 1% MPF 10mg/ml 5ml ONE (18:12)
[2018-03-13] MEDS ORDERED: Lidocaine 1% MPF 10mg/ml 5ml INJ ONE (18:15)
[2018-03-13 18:24] LABS: HEMATOCRIT 37.4 % (37.0-47.0); HEMOGLOBIN 12.4 G/DL (12.0-16.0); MEAN CORPUSCULAR VOLUME 95 FL (80-99); PLATELET COUNT 184 K/UL (150-450); RED BLOOD COUNT 3.95 M/UL (4.20-5.40); RED CELL DISTRIBUTION WIDTH 15.7 % (11.6-14.8)
[2018-03-13 18:42] LABS: ANION GAP 8 mmol/L (5-15); BLOOD UREA NITROGEN 18 mg/dL (7-18); CALCIUM 9.5 MG/DL (8.5-10.1); CARBON DIOXIDE 29 MMOL/L (21-32); CHLORIDE 95 MMOL/L (98-107); POTASSIUM 3.3 MMOL/L (3.5-5.1); SODIUM 132 MMOL/L (136-145)
[2018-03-13 18:44] LABS: WHITE BLOOD COUNT 24.3 K/UL (4.8-10.8)
[2018-03-13 18:45] LABS: INR 1.1 (0.9-1.1)
[2018-03-13] MEDS ORDERED: Piperacillin/Tazobactam 3.375 GM in NS 110 ML IVPB ONE (18:45)
[2018-03-13] MEDS ORDERED: Vancomycin 1.5gm/D5W 250ml 250 ML IVPB ONE (18:45)
[2018-03-13 18:57] LABS: ALANINE AMINOTRANSFERASE 48 U/L (12-78); ALBUMIN 2.6 G/DL (3.4-5.0); ALBUMIN/GLOBULIN RATIO 0.4 (1.0-2.7); ALKALINE PHOSPHATASE 241 U/L (46-116); ASPARTATE AMINO TRANSFERASE 67 U/L (15-37); BILIRUBIN,TOTAL 1.9 MG/DL (0.2-1.0); CREATINE KINASE 28 U/L (26-308)
[2018-03-13 19:03] LABS: BILIRUBIN,DIRECT 1.6 MG/DL (0.0-0.3)
[2018-03-13 19:26] VITALS: BP 86/37
[2018-03-13 19:30] VITALS: BP 87/39
[2018-03-13 20:00] LABS: APPEARANCE,URINE CLEAR; BILIRUBIN, URINE 1+ (NEGATIVE); COLOR,URINE BROWN; GLUCOSE, URINE (UA) NEGATIVE (NEGATIVE); KETONES,URINE NEGATIVE (NEGATIVE); LEUKOCYTE ESTERASE ,URINE 1+ (NEGATIVE); NITRITE,URINE NEGATIVE (NEGATIVE); PH,URINE 5 (4.5-8.0); PROTEIN,URINE 2+ (NEGATIVE); UROBILINOGEN,URINE 4 MG/DL (0.0-1.0)
[2018-03-13 20:30] VITALS: BP 90/49
[2018-03-13] MEDS ORDERED: Miralax 17gm pkt ORAL PRN (21:00)
[2018-03-13] MEDS ORDERED: Morphine Sulfate 4mg/ml Inj (IV USE ONLY) IVP PRN (21:00)
[2018-03-13] MEDS ORDERED: Albuterol/Ipratropium 3ml neb HHN PRN (21:00)
[2018-03-13] MEDS: Heparin 5000 units/ml inj SUBQ SCH (21:00)
[2018-03-13] MEDS ORDERED: LORazepam Inj 2mg/ml 1ml IV PRN (21:00)
[2018-03-13 21:30] VITALS: BP_SYST 87; BP_SYST 98; BP_DIAS 39; BP_DIAS 47
[2018-03-13 22:00] VITALS: BP 96/34
[2018-03-13 23:00] VITALS: BP 81/31
[2018-03-14] VITALS (27 sets, daily range): BP systolic 86–125; BP diastolic 33–61
[2018-03-14 06:57] LABS: HEMATOCRIT 36.1 % (37.0-47.0); HEMOGLOBIN 11.6 G/DL (12.0-16.0); MEAN CORPUSCULAR VOLUME 96 FL (80-99); PLATELET COUNT 234 K/UL (150-450); RED BLOOD COUNT 3.76 M/UL (4.20-5.40); RED CELL DISTRIBUTION WIDTH 16.2 % (11.6-14.8)
[2018-03-14 07:01] LABS: WHITE BLOOD COUNT 29.9 K/UL (4.8-10.8)
[2018-03-14 07:35] LABS: ALBUMIN 2.2 G/DL (3.4-5.0); ANION GAP 9 mmol/L (5-15); BLOOD UREA NITROGEN 12 mg/dL (7-18); CALCIUM 8.6 MG/DL (8.5-10.1); CARBON DIOXIDE 26 MMOL/L (21-32); CHLORIDE 100 MMOL/L (98-107); CREATININE 0.7 MG/DL (0.55-1.30); PHOSPHORUS 2.3 MG/DL (2.5-4.9); SODIUM 135 MMOL/L (136-145)
[2018-03-14 07:37] LABS: POTASSIUM 2.7 MMOL/L (3.5-5.1)
[2018-03-14] MEDS: Vancomycin 1gm/D5W 275ml IVPB SCH ×4 (08:48→21:00)
[2018-03-14] MEDS: Phenytoin 50mg tab ORAL SCH ×3 (08:48→18:00)
[2018-03-14] MEDS: Pantoprazole Inj IV SCH (08:52)
[2018-03-14] MEDS: levETIRAcetam 500mg/5ml Liquid GT SCH (08:52)
[2018-03-14] MEDS: Heparin 5000 units/ml inj SUBQ SCH ×2 (08:52→21:00)
--- NOTE | 2018-03-14 10:59 | Diagnostic Imaging Report ---
APPROVED REPORT CPT Code: 11848 Present Symptoms Lower Extremity Pain: Bilateral BILATERAL: Imaging reveals a patent deep venous system bilaterally. There is no evidence of thrombus within the femoral, popliteal or tibial segments. The greater saphenous veins are also within normal limits. Doppler indicates normal spontaneous flow within these segments.
[2018-03-14] MEDS ORDERED: Zosyn 3.375gm q8h **Extended infusion IVPB SCH ×2 (11:00)
--- NOTE | 2018-03-14 11:11 | History and Physical ---
History of Present Illness General Date patient seen: Mar 14, 2018 Reason for Hospitalization: Fever Present Illness HPI 77-year-old female history of anoxic brain injury chronic respiratory failure trach, PEG, brought in by the assisted for low blood pressure. Patient is nonverbal, unable to give any kind of history. EMS states when he arrived patient had a blood pressure of systolic 122/70. No other history is able to be obtained. Pt was febrile in ER and had severe leukocytosis. She is admitted to [facility] for further management. Allergies: Coded Allergies: PEANUT (Verified Allergy, Unknown, 09/22/16) Medication History Scheduled Bisacodyl (Dulcolax), 10 MG RC PRN, (Reported) Cran/Vitc/Mannose/Inulin/Brom (Uti-Stat Liquid), 30 ML GT TWICE A DAY, (Reported ) Docusate Sodium* (Docusate Sodium*), 100 MG GT DAILY, (Reported) Levothyroxine Sodium* (Levothyroxine Sodium*), 50 MCG GT DAILY, (Reported) Lorazepam* (Ativan*), 1 MG ORAL EVERY 4 HOURS, (Reported) Multivitamin With Minerals (Multivitamins With Minerals*), 15 ML GT DAILY, ( Reported) Na Phos,M-B/Na Phos,Di-Ba* (Fleet Enema*), 133 ML RECTAL PRN, (Reported) Nitrofurantoin Monohyd/M-Cryst* (Macrobid 100 Mg*), 100 MG GT EVERY 12 HOURS Phenytoin (Dilantin), 200 MG ORAL THREE TIMES A DAY, (Reported) Zinc Sulfate (Zinc Sulfate*), 220 MG GT DAILY, (Reported) Scheduled PRN Acetaminophen (Acetaminophen), 650 MG GT Q6H PRN for Prn Headache/Temp > 101, ( Reported) Magnesium Hydroxide (Milk of Magnesia), 30 ML ORAL DAILY PRN for Constipation, ( Reported) Ondansetron Hcl* (Zofran*), 4 MG GT Q6H PRN for Nausea & Vomiting, (Reported) Miscellaneous Medications Levetiracetam* (Levetiracetam*), 1,500 MG GT, (Reported) Patient History Healthcare decision maker kelsey aguilar Resuscitation status Full Code Advanced Directive on File No Past Medical/Surgical History Past Medical/Surgical History: (1) Feeding tube dysfunction (2) Tracheostomy dependent (3) Chronic respiratory failure (4) Ventilator dependence (5) HTN (hypertension) (6) Seizure disorder (7) Anoxic encephalopathy Family History Family History: Patient reports no known family medical history. Review of Systems All Other Systems: negative except mentioned in HPI Physical Exam General Appearance: WD/WN, no apparent distress Lines, tubes and drains: peripheral HEENT: normocephalic, atraumatic Neck: non-tender, normal alignment Respiratory/Chest: chest wall non-tender, lungs clear Breasts: no masses Cardiovascular/Chest: normal peripheral pulses Abdomen: normal bowel sounds, non tender Genitourinary/Rectal: normal genital exam Extremities: normal range of motion, non-tender Last 24 Hour Vital Signs Date Time Temp Pulse Resp B/P (MAP) Pulse Ox O2 Delivery O2 Flow Rate FiO2 03/14/18 10:51 82 28 50 03/14/18 10:00 79 18 97/43 (61) 97 03/14/18 09:30 77 18 103/46 (65) 97 03/14/18 09:17 58 23 50 03/14/18 09:00 75 22 115/50 (71) 97 03/14/18 08:30 70 20 112/35 (60) 97 03/14/18 08:00 50 03/14/18 08:00 75 03/14/18 08:00 Mechanical Ventilator 03/14/18 08:00 98.3 62 25 124/47 (72) 98 98.3 03/14/18 07:43 99 03/14/18 07:29 87 29 50 03/14/18 07:00 60 22 118/35 (62) 97 03/14/18 07:00 118/35 03/14/18 06:00 98.3 59 25 124/47 (72) 98 98.3 03/14/18 06:00 124/47 03/14/18 05:30 81 30 50 03/14/18 05:00 55 19 124/43 (70) 97 03/14/18 05:00 124/43 03/14/18 04:44 116/42 03/14/18 04:00 50 03/14/18 04:00 Mechanical Ventilator 03/14/18 04:00 98.8 51 16 116/42 (66) 97 98.8 03/14/18 03:30 50 17 50 03/14/18 03:00 58 17 125/42 (69) 97 03/14/18 02:46 99.4 03/14/18 02:00 53 14 117/43 (67) 97 03/14/18 02:00 117/43 03/14/18 01:44 99.6 03/14/18 01:30 53 18 50 03/14/18 01:30 99.6 62 18 100/33 (55) 100 99.6 03/14/18 01:00 53 15 90/37 (54) 98 03/14/18 01:00 90/36 03/14/18 00:26 62 03/14/18 00:00 Mechanical Ventilator 03/14/18 00:00 89/33 03/14/18 00:00 99.1 61 22 86/41 (56) 98 99.1 03/14/18 00:00 64 03/13/18 23:23 61 03/13/18 23:04 82 16 50 03/13/18 23:00 80 18 81/31 (48) 98 03/13/18 23:00 95/39 03/13/18 22:59 35 03/13/18 22:19 Mechanical Ventilator 03/13/18 22:00 86 17 96/34 (54) 98 03/13/18 22:00 81/31 03/13/18 21:30 89 03/13/18 21:30 98.8 89 18 98/47 99 Endotracheal Tube 50 03/13/18 21:30 98.7 90 21 87/39 (55) 99 98.7 03/13/18 21:30 95/34 03/13/18 21:30 90 20 50 03/13/18 21:30 98.8 89 18 98/47 99 Endotracheal Tube 50 98.8 03/13/18 20:30 85 17 90/49 95 Endotracheal Tube 15.0 50 03/13/18 20:25 85/44 03/13/18 20:00 91/43 03/13/18 19:55 79/38 03/13/18 19:50 82/39 03/13/18 19:30 94 16 87/39 95 Endotracheal Tube 03/13/18 19:30 85 18 50 03/13/18 19:26 100.0 97 26 86/37 99 100.0 03/13/18 17:20 99 25 Mechanical Ventilator 15.0 50 03/13/18 17:20 99 25 50 03/13/18 17:20 98.6 106 20 122/62 97 Mechanical Ventilator 98.6 Intake and Output 03/13/18 03/14/18 19:00 07:00 Intake Total 4047.1 ml Output Total 500 ml Balance 3547.1 ml Intake Free Water 100 ml IV Total 3767.1 ml Tube Feeding 180 ml Output Urine Total 500 ml # Voids 301 # Bowel Movements 1 Laboratory Tests Test 03/13/18 17:50 03/13/18 17:55 03/13/18 19:23 03/13/18 20:10 White Blood Count 24.3 K/UL (4.8-10.8) *H Red Blood Count 3.95 M/UL (4.20-5.40) L Hemoglobin 12.4 G/DL (12.0-16.0) Hematocrit 37.4 % (37.0-47.0) Mean Corpuscular Volume 95 FL (80-99) Mean Corpuscular Hemoglobin 31.4 PG (27.0-31.0) H Mean Corpuscular Hemoglobin Concent 33.2 G/DL (32.0-36.0) Red Cell Distribution Width 15.7 % (11.6-14.8) H Platelet Count 184 K/UL (150-450) Mean Platelet Volume 9.7 FL (6.5-10.1) Neutrophils (%) (Auto) % (45.0-75.0) Lymphocytes (%) (Auto) % (20.0-45.0) Monocytes (%) (Auto) % (1.0-10.0) Eosinophils (%) (Auto) % (0.0-3.0) Basophils (%) (Auto) % (0.0-2.0) Differential Total Cells Counted 100 Neutrophils % (Manual) 71 % (45-75) Lymphocytes % (Manual) 4 % (20-45) L Monocytes % (Manual) 6 % (1-10) Eosinophils % (Manual) 0 % (0-3) Basophils % (Manual) 0 % (0-2) Band Neutrophils 19 % (0-8) H Platelet Estimate Adequate Platelet Morphology Normal Red Blood Cell Morphology Normal Prothrombin Time 11.1 SEC (9.30-11.50) Prothromb Time International Ratio 1.1 (0.9-1.1) Activated Partial Thromboplast Time 27 SEC (23-33) Sodium Level 132 MMOL/L (136-145) L Potassium Level 3.3 MMOL/L (3.5-5.1) L Chloride Level 95 MMOL/L (98-107) L Carbon Dioxide Level 29 MMOL/L (21-32) Anion Gap 8 mmol/L (5-15) Blood Urea Nitrogen 18 mg/dL (7-18) Creatinine 1.0 MG/DL (0.55-1.30) Estimat Glomerular Filtration Rate mL/min (>60) Glucose Level 169 MG/DL (74-106) H Lactic Acid Level 2.40 mmol/L (0.4-2.0) H 1.80 mmol/L (0.66-2.22) Calcium Level 9.5 MG/DL (8.5-10.1) Total Bilirubin 1.9 MG/DL (0.2-1.0) H Direct Bilirubin 1.6 MG/DL (0.0-0.3) H Aspartate Amino Transf (AST/SGOT) 67 U/L (15-37) H Alanine Aminotransferase (ALT/SGPT) 48 U/L (12-78) Alkaline Phosphatase 241 U/L (46-116) H Total Creatine Kinase 28 U/L (26-308) Troponin I 0.000 ng/mL (0.000-0.056) Pro-B-Type Natriuretic Peptide 994 pg/mL (0-125) H Total Protein 8.6 G/DL (6.4-8.2) H Albumin 2.6 G/DL (3.4-5.0) L Globulin 6.0 g/dL Albumin/Globulin Ratio 0.4 (1.0-2.7) L Arterial Blood pH 7.443 (7.350-7.450) Arterial Blood Partial Pressure CO2 44.7 mmHg (35.0-45.0) Arterial Blood Partial Pressure O2 64.7 mmHg (75.0-100.0) L Arterial Blood HCO3 29.9 mmol/L (22.0-26.0) H Arterial Blood Oxygen Saturation 92.7 % (92.0-98.0) Arterial Blood Base Excess 5.1 Best Test Positive Urine Color Brown Urine Appearance Clear Urine pH 5 (4.5-8.0) Urine Specific [place] 1.015 (1.005-1.035) Urine Protein 2+ (NEGATIVE) H Urine Glucose (UA) Negative (NEGATIVE) Urine Ketones Negative (NEGATIVE) Urine Occult Blood 1+ (NEGATIVE) H Urine Nitrite Negative (NEGATIVE) Urine Bilirubin 1+ (NEGATIVE) H Urine Ictotest Positive Urine Urobilinogen 4 MG/DL (0.0-1.0) H Urine Leukocyte Esterase 1+ (NEGATIVE) H Urine RBC 2-4 /HPF (0 - 2) H Urine WBC 5-10 /HPF (0 - 2) H Urine Squamous Epithelial Cells Moderate /LPF (NONE/OCC) H Urine Amorphous Sediment Few /LPF (NONE) H Urine Bacteria Moderate /HPF (NONE) H Test 03/14/18 05:10 White Blood Count 29.9 K/UL (4.8-10.8) *H Red Blood Count 3.76 M/UL (4.20-5.40) L Hemoglobin 11.6 G/DL (12.0-16.0) L Hematocrit 36.1 % (37.0-47.0) L Mean Corpuscular Volume 96 FL (80-99) Mean Corpuscular Hemoglobin 30.9 PG (27.0-31.0) Mean Corpuscular Hemoglobin Concent 32.1 G/DL (32.0-36.0) Red Cell Distribution Width 16.2 % (11.6-14.8) H Platelet Count 234 K/UL (150-450) Mean Platelet Volume 9.4 FL (6.5-10.1) Neutrophils (%) (Auto) % (45.0-75.0) Lymphocytes (%) (Auto) % (20.0-45.0) Monocytes (%) (Auto) % (1.0-10.0) Eosinophils (%) (Auto) % (0.0-3.0) Basophils (%) (Auto) % (0.0-2.0) Differential Total Cells Counted 100 Neutrophils % (Manual) 73 % (45-75) Lymphocytes % (Manual) 7 % (20-45) L Monocytes % (Manual) 5 % (1-10) Eosinophils % (Manual) 0 % (0-3) Basophils % (Manual) 1 % (0-2) Band Neutrophils 14 % (0-8) H Platelet Estimate Adequate Platelet Morphology Normal Anisocytosis 1+ Sodium Level 135 MMOL/L (136-145) L Potassium Level 2.7 MMOL/L (3.5-5.1) *L Chloride Level 100 MMOL/L (98-107) Carbon Dioxide Level 26 MMOL/L (21-32) Anion Gap 9 mmol/L (5-15) Blood Urea Nitrogen 12 mg/dL (7-18) Creatinine 0.7 MG/DL (0.55-1.30) Estimat Glomerular Filtration Rate mL/min (>60) Glucose Level 155 MG/DL (74-106) H Calcium Level 8.6 MG/DL (8.5-10.1) Phosphorus Level 2.3 MG/DL (2.5-4.9) L Albumin 2.2 G/DL (3.4-5.0) L Height (Feet): 5 Height (Inches): 6.00 Weight (Pounds): 229 Medications Current Medications Medications (Trade) Dose Ordered Sig/Boubacar Route PRN Reason Start Time Stop Time Status Last Admin Dose Admin Acetaminophen (Tylenol) 650 mg Q4H PRN ORAL FEVER 03/13/18 21:00 04/12/18 20:59 03/14/18 01:44 Albuterol/ Ipratropium (Albuterol/ Ipratropium) 3 ml Q4H PRN HHN Shortness of Breath 03/13/18 21:00 03/18/18 20:59 Dextrose (Dextrose 50%) 25 ml STAT PRN IV Hypoglycemia 03/13/18 21:00 04/12/18 20:59 Dextrose (Dextrose 50%) 50 ml STAT PRN IV Hypoglycemia 03/13/18 21:00 04/12/18 20:59 Heparin Sodium (Porcine) (Heparin 5000 units/ml) 5,000 units EVERY 12 HOURS SUBQ 03/13/18 21:00 04/12/18 20:59 03/14/18 08:52 Levetiracetam (Keppra) 1,500 mg DAILY GT 03/14/18 09:00 04/13/18 08:59 03/14/18 08:52 Levothyroxine Sodium (Synthroid) 50 mcg DAILY@0630 GT 03/14/18 06:30 04/13/18 06:29 03/14/18 05:59 Lorazepam (Ativan 2mg/ml 1ml) 2 mg Q2H PRN IV For Anxiety 03/13/18 21:00 03/20/18 20:59 Morphine Sulfate (Morphine Sulfate) 4 mg Q4H PRN IVP Severe Pain (Pain Scale 7-10) 03/13/18 21:00 03/20/18 20:59 Norepinephrine Bitartrate 4 mg/ Dextrose 250 ml @ 7.5 mls/hr Q24H IV 03/13/18 22:30 04/12/18 22:29 03/14/18 04:44 Ondansetron HCl (Zofran) 4 mg Q6H PRN IVP Nausea & Vomiting 03/13/18 21:00 04/12/18 20:59 Pantoprazole (Protonix) 40 mg DAILY IV 03/14/18 09:00 04/13/18 08:59 03/14/18 08:52 Phenytoin (Dilantin) 200 mg THREE TIMES A DAY ORAL 03/14/18 09:00 04/13/18 08:59 03/14/18 08:48 Piperacillin Sod/ Tazobactam Sod 3.375 gm/Sodium Chloride 110 ml @ 27.5 mls/hr EVERY 8 HOURS IVPB 03/14/18 11:00 03/19/18 10:59 Polyethylene Glycol (Miralax) 17 gm DAILYPRN PRN ORAL Constipation 03/13/18 21:00 04/12/18 20:59 Vancomycin HCl (Vanco rx to dose) 1 ea DAILY PRN MISC per rx protocol 03/13/18 21:15 04/12/18 21:14 Vancomycin HCl 1 gm/Dextrose 275 ml @ 183.708 mls/hr Q12H IVPB 03/14/18 09:00 03/19/18 08:59 03/14/18 08:48 Assessment/Plan Problem List: (1) Septic shock ICD Codes: A41.9 - Sepsis, unspecified organism; R65.21 - Severe sepsis with septic shock SNOMED: 40694952 (2) Ventilator dependence ICD Codes: Z99.11 - Dependence on respirator [ventilator] status SNOMED: 746151994 (3) Anoxic encephalopathy ICD Codes: G93.1 - Anoxic brain damage, not elsewhere classified SNOMED: 301254280 (4) Seizure disorder ICD Codes: G40.909 - Epilepsy, unspecified, not intractable, without status epilepticus SNOMED: 663262727 (5) Functional paraplegia (6) Status post tracheostomy ICD Codes: Z93.0 - Tracheostomy status SNOMED: 51407566, [id number] Respiratory: monitor respiratory rate, adjust FIO2, CXR Cardiac: continue to monitor HR/BP Renal: F/U I&O Infectious Disease: check cultures Gastrointestinal: continue feedings/current rate Endocrine: monitor blood sugar Hematologic: monitor H/H, transfuse if hgb<8.5 Neurologic: PRN Ativan, keep patient comfortable Affect: PRN ativan Prophylaxis: Protonix 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: 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, consultants, case management associate Savi Rodriguez MD Mar 14, 2018 11:11
[2018-03-14] MEDS ORDERED: NS 275ml ONE (11:37)
--- NOTE | 2018-03-14 13:18 | Consultation ---
History of Present Illness General Date patient seen: Mar 14, 2018 Chief Complaint: Fever Present Illness HPI 77 y/o F with hx of anoxic brain injury, CAD/NSTEMI, CHF,UTI (MDR K.pna), HTN, DM2, hyothyroidism, morbid obesity, anemia, HLD, breast CA, chronic respiratory failure trach, PEG presents to ED on 03/13 with hypotension. When EMS arrived BP was 122/70. Shortly after admission patient again hypotensive and started on pressors and transferred to ICU. Low grade fever , Tm 100 Leukocytosis in the 20s and worsenign. ON IV Vanco and Zosyn Of note patient admitted here on early November 2017 with fever and weakness; found to be septic 2ry to PsA and Proteus PNA Also Admitted on 10/2017 with P. mirabilis UTI; treated with 7 days of Cefepime Allergies: Coded Allergies: PEANUT (Verified Allergy, Unknown, 09/22/16) Medication History Scheduled Bisacodyl (Dulcolax), 10 MG RC PRN, (Reported) Cran/Vitc/Mannose/Inulin/Brom (Uti-Stat Liquid), 30 ML GT TWICE A DAY, (Reported ) Docusate Sodium* (Docusate Sodium*), 100 MG GT DAILY, (Reported) Levothyroxine Sodium* (Levothyroxine Sodium*), 50 MCG GT DAILY, (Reported) Lorazepam* (Ativan*), 1 MG ORAL EVERY 4 HOURS, (Reported) Multivitamin With Minerals (Multivitamins With Minerals*), 15 ML GT DAILY, ( Reported) Na Phos,M-B/Na Phos,Di-Ba* (Fleet Enema*), 133 ML RECTAL PRN, (Reported) Nitrofurantoin Monohyd/M-Cryst* (Macrobid 100 Mg*), 100 MG GT EVERY 12 HOURS Phenytoin (Dilantin), 200 MG ORAL THREE TIMES A DAY, (Reported) Zinc Sulfate (Zinc Sulfate*), 220 MG GT DAILY, (Reported) Scheduled PRN Acetaminophen (Acetaminophen), 650 MG GT Q6H PRN for Prn Headache/Temp > 101, ( Reported) Magnesium Hydroxide (Milk of Magnesia), 30 ML ORAL DAILY PRN for Constipation, ( Reported) Ondansetron Hcl* (Zofran*), 4 MG GT Q6H PRN for Nausea & Vomiting, (Reported) Miscellaneous Medications Levetiracetam* (Levetiracetam*), 1,500 MG GT, (Reported) Patient History Healthcare decision maker kelsey fernando aguilar Resuscitation status Full Code Advanced Directive on File No Patient History Narrative Pmhx: as above Shx: reviewed Fhx: non contributory Review of Systems All Other Systems: negative except mentioned in HPI Physical Exam Physical Exam Narrative General Appearance: WD/WN, no apparent distress Lines, tubes and drains: peripheral HEENT: normocephalic, atraumatic Neck: non-tender, normal alignment Respiratory/Chest: chest wall non-tender, lungs clear Breasts: no masses Cardiovascular/Chest: normal peripheral pulses Abdomen: normal bowel sounds, non tender Extremities: normal range of motion, non-tender Last 24 Hour Vital Signs Date Time Temp Pulse Resp B/P (MAP) Pulse Ox O2 Delivery O2 Flow Rate FiO2 03/14/18 10:51 82 28 50 03/14/18 10:00 79 18 97/43 (61) 97 03/14/18 09:30 77 18 103/46 (65) 97 03/14/18 09:17 58 23 50 03/14/18 09:00 75 22 115/50 (71) 97 03/14/18 08:30 70 20 112/35 (60) 97 03/14/18 08:00 50 03/14/18 08:00 75 03/14/18 08:00 Mechanical Ventilator 03/14/18 08:00 98.3 62 25 124/47 (72) 98 98.3 03/14/18 07:43 99 03/14/18 07:29 87 29 50 03/14/18 07:00 60 22 118/35 (62) 97 03/14/18 07:00 118/35 03/14/18 06:00 98.3 59 25 124/47 (72) 98 98.3 03/14/18 06:00 124/47 03/14/18 05:30 81 30 50 03/14/18 05:00 55 19 124/43 (70) 97 03/14/18 05:00 124/43 03/14/18 04:44 116/42 03/14/18 04:00 50 03/14/18 04:00 Mechanical Ventilator 03/14/18 04:00 98.8 51 16 116/42 (66) 97 98.8 03/14/18 03:30 50 17 50 03/14/18 03:00 58 17 125/42 (69) 97 03/14/18 02:46 99.4 03/14/18 02:00 53 14 117/43 (67) 97 03/14/18 02:00 117/43 03/14/18 01:44 99.6 03/14/18 01:30 53 18 50 03/14/18 01:30 99.6 62 18 100/33 (55) 100 99.6 03/14/18 01:00 53 15 90/37 (54) 98 03/14/18 01:00 90/36 03/14/18 00:26 62 03/14/18 00:00 Mechanical Ventilator 03/14/18 00:00 89/33 03/14/18 00:00 99.1 61 22 86/41 (56) 98 99.1 03/14/18 00:00 64 03/13/18 23:23 61 03/13/18 23:04 82 16 50 03/13/18 23:00 80 18 81/31 (48) 98 03/13/18 23:00 95/39 03/13/18 22:59 35 03/13/18 22:19 Mechanical Ventilator 03/13/18 22:00 86 17 96/34 (54) 98 03/13/18 22:00 81/31 03/13/18 21:30 89 03/13/18 21:30 98.8 89 18 98/47 99 Endotracheal Tube 50 03/13/18 21:30 98.7 90 21 87/39 (55) 99 98.7 03/13/18 21:30 95/34 03/13/18 21:30 90 20 50 03/13/18 21:30 98.8 89 18 98/47 99 Endotracheal Tube 50 98.8 03/13/18 20:30 85 17 90/49 95 Endotracheal Tube 15.0 50 03/13/18 20:25 85/44 03/13/18 20:00 91/43 03/13/18 19:55 79/38 03/13/18 19:50 82/39 03/13/18 19:30 94 16 87/39 95 Endotracheal Tube 03/13/18 19:30 85 18 50 03/13/18 19:26 100.0 97 26 86/37 99 100.0 03/13/18 17:20 99 25 Mechanical Ventilator 15.0 50 03/13/18 17:20 99 25 50 03/13/18 17:20 98.6 106 20 122/62 97 Mechanical Ventilator 98.6 Intake and Output 03/13/18 03/14/18 19:00 07:00 Intake Total 4047.1 ml Output Total 500 ml Balance 3547.1 ml Intake Free Water 100 ml IV Total 3767.1 ml Tube Feeding 180 ml Output Urine Total 500 ml # Voids 301 # Bowel Movements 1 Laboratory Tests Test 03/13/18 17:50 03/13/18 17:55 03/13/18 19:23 03/13/18 20:10 White Blood Count 24.3 K/UL (4.8-10.8) *H Red Blood Count 3.95 M/UL (4.20-5.40) L Hemoglobin 12.4 G/DL (12.0-16.0) Hematocrit 37.4 % (37.0-47.0) Mean Corpuscular Volume 95 FL (80-99) Mean Corpuscular Hemoglobin 31.4 PG (27.0-31.0) H Mean Corpuscular Hemoglobin Concent 33.2 G/DL (32.0-36.0) Red Cell Distribution Width 15.7 % (11.6-14.8) H Platelet Count 184 K/UL (150-450) Mean Platelet Volume 9.7 FL (6.5-10.1) Neutrophils (%) (Auto) % (45.0-75.0) Lymphocytes (%) (Auto) % (20.0-45.0) Monocytes (%) (Auto) % (1.0-10.0) Eosinophils (%) (Auto) % (0.0-3.0) Basophils (%) (Auto) % (0.0-2.0) Differential Total Cells Counted 100 Neutrophils % (Manual) 71 % (45-75) Lymphocytes % (Manual) 4 % (20-45) L Monocytes % (Manual) 6 % (1-10) Eosinophils % (Manual) 0 % (0-3) Basophils % (Manual) 0 % (0-2) Band Neutrophils 19 % (0-8) H Platelet Estimate Adequate Platelet Morphology Normal Red Blood Cell Morphology Normal Prothrombin Time 11.1 SEC (9.30-11.50) Prothromb Time International Ratio 1.1 (0.9-1.1) Activated Partial Thromboplast Time 27 SEC (23-33) Sodium Level 132 MMOL/L (136-145) L Potassium Level 3.3 MMOL/L (3.5-5.1) L Chloride Level 95 MMOL/L (98-107) L Carbon Dioxide Level 29 MMOL/L (21-32) Anion Gap 8 mmol/L (5-15) Blood Urea Nitrogen 18 mg/dL (7-18) Creatinine 1.0 MG/DL (0.55-1.30) Estimat Glomerular Filtration Rate mL/min (>60) Glucose Level 169 MG/DL (74-106) H Lactic Acid Level 2.40 mmol/L (0.4-2.0) H 1.80 mmol/L (0.66-2.22) Calcium Level 9.5 MG/DL (8.5-10.1) Total Bilirubin 1.9 MG/DL (0.2-1.0) H Direct Bilirubin 1.6 MG/DL (0.0-0.3) H Aspartate Amino Transf (AST/SGOT) 67 U/L (15-37) H Alanine Aminotransferase (ALT/SGPT) 48 U/L (12-78) Alkaline Phosphatase 241 U/L (46-116) H Total Creatine Kinase 28 U/L (26-308) Troponin I 0.000 ng/mL (0.000-0.056) Pro-B-Type Natriuretic Peptide 994 pg/mL (0-125) H Total Protein 8.6 G/DL (6.4-8.2) H Albumin 2.6 G/DL (3.4-5.0) L Globulin 6.0 g/dL Albumin/Globulin Ratio 0.4 (1.0-2.7) L Arterial Blood pH 7.443 (7.350-7.450) Arterial Blood Partial Pressure CO2 44.7 mmHg (35.0-45.0) Arterial Blood Partial Pressure O2 64.7 mmHg (75.0-100.0) L Arterial Blood HCO3 29.9 mmol/L (22.0-26.0) H Arterial Blood Oxygen Saturation 92.7 % (92.0-98.0) Arterial Blood Base Excess 5.1 Best Test Positive Urine Color Brown Urine Appearance Clear Urine pH 5 (4.5-8.0) Urine Specific [place] 1.015 (1.005-1.035) Urine Protein 2+ (NEGATIVE) H Urine Glucose (UA) Negative (NEGATIVE) Urine Ketones Negative (NEGATIVE) Urine Occult Blood 1+ (NEGATIVE) H Urine Nitrite Negative (NEGATIVE) Urine Bilirubin 1+ (NEGATIVE) H Urine Ictotest Positive Urine Urobilinogen 4 MG/DL (0.0-1.0) H Urine Leukocyte Esterase 1+ (NEGATIVE) H Urine RBC 2-4 /HPF (0 - 2) H Urine WBC 5-10 /HPF (0 - 2) H Urine Squamous Epithelial Cells Moderate /LPF (NONE/OCC) H Urine Amorphous Sediment Few /LPF (NONE) H Urine Bacteria Moderate /HPF (NONE) H Test 03/14/18 05:10 White Blood Count 29.9 K/UL (4.8-10.8) *H Red Blood Count 3.76 M/UL (4.20-5.40) L Hemoglobin 11.6 G/DL (12.0-16.0) L Hematocrit 36.1 % (37.0-47.0) L Mean Corpuscular Volume 96 FL (80-99) Mean Corpuscular Hemoglobin 30.9 PG (27.0-31.0) Mean Corpuscular Hemoglobin Concent 32.1 G/DL (32.0-36.0) Red Cell Distribution Width 16.2 % (11.6-14.8) H Platelet Count 234 K/UL (150-450) Mean Platelet Volume 9.4 FL (6.5-10.1) Neutrophils (%) (Auto) % (45.0-75.0) Lymphocytes (%) (Auto) % (20.0-45.0) Monocytes (%) (Auto) % (1.0-10.0) Eosinophils (%) (Auto) % (0.0-3.0) Basophils (%) (Auto) % (0.0-2.0) Differential Total Cells Counted 100 Neutrophils % (Manual) 73 % (45-75) Lymphocytes % (Manual) 7 % (20-45) L Monocytes % (Manual) 5 % (1-10) Eosinophils % (Manual) 0 % (0-3) Basophils % (Manual) 1 % (0-2) Band Neutrophils 14 % (0-8) H Platelet Estimate Adequate Platelet Morphology Normal Anisocytosis 1+ Sodium Level 135 MMOL/L (136-145) L Potassium Level 2.7 MMOL/L (3.5-5.1) *L Chloride Level 100 MMOL/L (98-107) Carbon Dioxide Level 26 MMOL/L (21-32) Anion Gap 9 mmol/L (5-15) Blood Urea Nitrogen 12 mg/dL (7-18) Creatinine 0.7 MG/DL (0.55-1.30) Estimat Glomerular Filtration Rate mL/min (>60) Glucose Level 155 MG/DL (74-106) H Calcium Level 8.6 MG/DL (8.5-10.1) Phosphorus Level 2.3 MG/DL (2.5-4.9) L Albumin 2.2 G/DL (3.4-5.0) L Height (Feet): 5 Height (Inches): 6.00 Weight (Pounds): 229 Medications Current Medications Medications (Trade) Dose Ordered Sig/Boubacar Route PRN Reason Start Time Stop Time Status Last Admin Dose Admin Acetaminophen (Tylenol) 650 mg Q4H PRN ORAL FEVER 03/13/18 21:00 04/12/18 20:59 03/14/18 01:44 Albuterol/ Ipratropium (Albuterol/ Ipratropium) 3 ml Q4H PRN HHN Shortness of Breath 03/13/18 21:00 03/18/18 20:59 Dextrose (Dextrose 50%) 25 ml STAT PRN IV Hypoglycemia 03/13/18 21:00 04/12/18 20:59 Dextrose (Dextrose 50%) 50 ml STAT PRN IV Hypoglycemia 03/13/18 21:00 04/12/18 20:59 Heparin Sodium (Porcine) (Heparin 5000 units/ml) 5,000 units EVERY 12 HOURS SUBQ 03/13/18 21:00 04/12/18 20:59 03/14/18 08:52 Levetiracetam (Keppra) 1,500 mg DAILY GT 03/14/18 09:00 04/13/18 08:59 03/14/18 08:52 Levothyroxine Sodium (Synthroid) 50 mcg DAILY@0630 GT 03/14/18 06:30 04/13/18 06:29 03/14/18 05:59 Lorazepam (Ativan 2mg/ml 1ml) 2 mg Q2H PRN IV For Anxiety 03/13/18 21:00 03/20/18 20:59 Morphine Sulfate (Morphine Sulfate) 4 mg Q4H PRN IVP Severe Pain (Pain Scale 7-10) 03/13/18 21:00 03/20/18 20:59 Norepinephrine Bitartrate 4 mg/ Dextrose 250 ml @ 7.5 mls/hr Q24H IV 03/13/18 22:30 04/12/18 22:29 03/14/18 04:44 Ondansetron HCl (Zofran) 4 mg Q6H PRN IVP Nausea & Vomiting 03/13/18 21:00 04/12/18 20:59 Pantoprazole (Protonix) 40 mg DAILY IV 03/14/18 09:00 04/13/18 08:59 03/14/18 08:52 Phenytoin (Dilantin) 200 mg THREE TIMES A DAY ORAL 03/14/18 09:00 04/13/18 08:59 03/14/18 12:21 Piperacillin Sod/ Tazobactam Sod 3.375 gm/Sodium Chloride 110 ml @ 27.5 mls/hr EVERY 8 HOURS IVPB 03/14/18 11:00 03/19/18 10:59 03/14/18 12:21 Polyethylene Glycol (Miralax) 17 gm DAILYPRN PRN ORAL Constipation 03/13/18 21:00 04/12/18 20:59 Potassium Chloride (K-Dur) 40 meq ONCE ORAL 03/14/18 18:00 03/14/18 19:00 Vancomycin HCl (Vanco rx to dose) 1 ea DAILY PRN MISC per rx protocol 03/13/18 21:15 04/12/18 21:14 Vancomycin HCl 1 gm/Dextrose 275 ml @ 183.708 mls/hr Q12H IVPB 03/14/18 09:00 03/19/18 08:59 03/14/18 08:48 Assessment/Plan Assessment/Plan Abx: IV Vanco 03/13- Zosyn 03/13- Assessment: Septic Shock - ?2ry to PNA vs UTI- r/o bacteremia -CXR: Interstitial opacification/edema and patchy bilateral airspace opacities, right greater than left. Although findings may be related to fluid overload/CHF with a probable baseline of chronic interstitial disease, superimposed pneumonia is not excluded -u/a wbc 5-10, nit neg, leuk +1; ucx p -/ Bcx p FEver/leukocytosis Recent HCAP: PsA, P.mirabilis 11/2017, s/p RX -sp cx PsA (S zosyn; R cipro), P. mirabilis (S. Zosyn, Ceftriaxone; R cipro), Group G strep Hx of VRE UTI/bacteriuria Hx of CONS bacteremia (contaminant) History of multiple drug-resistant Klebsiella UTI History of anoxic encephalopathy. sp trach vent and PEG placement Seizure disorder Breast cancer Morbid obesity CHF HTN Diabetes Anemia Plan: -Continue empiric IV Vanco #2 and switch Zosyn #2 to Meropenem pending cultures -11/15 SP IV Zosyn #7, Zyvox #5 -11/11 SP IV Vancomcyin #3 -10/2017 SP Cefepime #7 -f/u cx -Monitor CBC/CMP, temperatures -Cdiff if diarrhea Thank you for this consultation. Will continue to follow along with you. Discussed with Sadia Sheppard M.D. Mar 14, 2018 13:18
[2018-03-14] MEDS: Meropenem 1 GM in NS 55 ML IVPB SCH ×2 (14:12→22:12)
--- NOTE | 2018-03-14 16:16 | Cardiology Report ---
APPROVED REPORT EKG Measurement Heart [id number] [place] P90 [id number] Jocelin Diane Nonspecific intraventricular block Lateral infarct, age undetermined Inferior infarct, age undetermined Abnormal ECG
--- NOTE | 2018-03-14 16:20 | Cardiology Report ---
APPROVED REPORT EKG Measurement Heart [id number] [place] [id number] Sinus tachycardia Right bundle branch block Possible Inferior infarct, age undetermined Abnormal ECG
[2018-03-14] MEDS: Dyna-Hex 2% Top Sol 2oz TOPIC SCH (20:00)
[2018-03-14] MEDS ORDERED: Vancomycin 1 GM in D5W 275 ML IV SCH (23:00)
[2018-03-15] VITALS (24 sets, daily range): BP systolic 84–123; BP diastolic 37–64
[2018-03-15 06:11] LABS: BASOPHILS % (AUTO) 0.7 % (0.0-2.0); EOSINOPHILS % (AUTO) 4.5 % (0.0-3.0); HEMATOCRIT 32.6 % (37.0-47.0); HEMOGLOBIN 10.5 G/DL (12.0-16.0); LYMPHOCYTES % (AUTO) 11.1 % (20.0-45.0); MEAN CORPUSCULAR VOLUME 96 FL (80-99); MONOCYTES % (AUTO) 7.1 % (1.0-10.0); NEUTROPHILS % (AUTO) 76.6 % (45.0-75.0); PLATELET COUNT 181 K/UL (150-450); RED BLOOD COUNT 3.38 M/UL (4.20-5.40); RED CELL DISTRIBUTION WIDTH 15.8 % (11.6-14.8); WHITE BLOOD COUNT 13.4 K/UL (4.8-10.8)
[2018-03-15] MEDS: Meropenem 1 GM in NS 55 ML IVPB SCH ×3 (06:26→21:34)
[2018-03-15 06:33] LABS: ALANINE AMINOTRANSFERASE 35 U/L (12-78); ALBUMIN 2.2 G/DL (3.4-5.0); ALBUMIN/GLOBULIN RATIO 0.4 (1.0-2.7); ALKALINE PHOSPHATASE 189 U/L (46-116); ANION GAP 6 mmol/L (5-15); ASPARTATE AMINO TRANSFERASE 51 U/L (15-37); BILIRUBIN,TOTAL 0.7 MG/DL (0.2-1.0); BLOOD UREA NITROGEN 6 mg/dL (7-18); CALCIUM 8.9 MG/DL (8.5-10.1); CARBON DIOXIDE 30 MMOL/L (21-32); CHLORIDE 101 MMOL/L (98-107); CREATININE 0.5 MG/DL (0.55-1.30); POTASSIUM 3.4 MMOL/L (3.5-5.1); SODIUM 137 MMOL/L (136-145)
[2018-03-15] MEDS: levETIRAcetam 500mg/5ml Liquid GT SCH (09:08)
[2018-03-15] MEDS: Pantoprazole Inj IV SCH (09:08)
[2018-03-15] MEDS: Phenytoin 50mg tab ORAL SCH ×2 (09:08→13:35)
[2018-03-15] MEDS: Heparin 5000 units/ml inj SUBQ SCH ×2 (09:09→20:37)
--- NOTE | 2018-03-15 09:57 | Pulmonolgy Critical Care Note ---
Critical Care - Asmt/Plan Problems: (1) Acute and chronic respiratory failure (2) Sepsis (3) Aspiration pneumonia (4) Anoxic encephalopathy (5) Seizure disorder (6) Functional paraplegia (7) Dysphagia s/p PEG Respiratory: monitor respiratory rate, adjust FIO2, CXR Cardiac: continue to monitor HR/BP Renal: F/U I&O, keep IV fluid, check electrolytes Infectious Disease: continue antibiotics Gastrointestinal: continue feedings/current rate Endocrine: monitor blood sugar, check TSH, check HgA1C Hematologic: monitor H/H Neurologic: PRN Morphine Prophylaxis: Protonix 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: cardio, 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, consultants, 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 - Objective Last 24 Hour Vital Signs Date Time Temp Pulse Resp B/P (MAP) Pulse Ox O2 Delivery O2 Flow Rate FiO2 03/15/18 09:11 86 27 40 03/15/18 09:00 83 27 97/43 (61) 97 03/15/18 08:00 40 03/15/18 08:00 82 03/15/18 08:00 98.7 90 24 104/45 (64) 95 98.7 03/15/18 08:00 Mechanical Ventilator 03/15/18 07:28 82 25 40 03/15/18 07:00 85 23 93/64 (74) 99 03/15/18 06:00 80 25 93/38 (56) 93 03/15/18 05:18 79 26 40 03/15/18 05:00 81 25 87/39 (55) 93 03/15/18 04:00 40 03/15/18 04:00 84 03/15/18 04:00 Mechanical Ventilator 03/15/18 04:00 98.4 85 25 119/49 (72) 96 98.4 03/15/18 03:00 85 27 97/38 (57) 98 03/15/18 02:41 86 20 40 03/15/18 02:00 84 27 102/43 (62) 99 03/15/18 01:10 73 22 40 03/15/18 01:00 81 25 123/51 (75) 97 03/15/18 00:00 Mechanical Ventilator 03/15/18 00:00 97.5 76 23 93/38 (56) 97 97.5 03/15/18 00:00 40 03/15/18 00:00 87 7/11/18 23:03 79 26 40 03/14/18 23:00 76 25 110/60 (77) 98 03/14/18 22:00 78 25 107/51 (69) 97 03/14/18 21:00 81 26 106/51 (69) 99 03/14/18 20:59 78 26 40 03/14/18 20:00 50 03/14/18 20:00 77 03/14/18 20:00 98.0 80 26 96/61 (73) 97 98.0 03/14/18 20:00 Mechanical Ventilator 03/14/18 19:00 71 22 90/35 (53) 97 03/14/18 18:59 80 27 50 03/14/18 18:00 75 19 102/43 (62) 98 03/14/18 17:00 79 18 115/40 (65) 97 03/14/18 16:38 79 28 50 03/14/18 16:00 Mechanical Ventilator 03/14/18 16:00 82 03/14/18 16:00 98.2 88 17 100/50 (67) 97 98.2 03/14/18 16:00 50 03/14/18 15:00 45 18 98/43 (61) 98 03/14/18 14:50 80 27 50 03/14/18 14:00 79 17 99/40 (59) 97 03/14/18 13:12 80 27 50 03/14/18 13:00 82 18 101/43 (62) 97 03/14/18 12:00 80 03/14/18 12:00 Mechanical Ventilator 03/14/18 12:00 50 03/14/18 12:00 98.6 79 18 97/43 (61) 98 98.6 03/14/18 11:00 80 16 93/40 (57) 97 03/14/18 10:51 82 28 50 03/14/18 10:00 79 18 97/43 (61) 97 Status: obtunded Condition: critical HEENT: atraumatic Lungs: chest wall tender Heart: HR/BP unstable Abdomen: non-tender, feeding tube Extremities: edema Decubiti: location Micro: Microbiology Date/Time Source Procedure Growth Status 03/13/18 17:50 Blood Blood Culture - Preliminary NO GROWTH AFTER 24 HOURS Resulted 03/13/18 17:35 Blood Blood Culture - Preliminary NO GROWTH AFTER 24 HOURS Resulted 03/14/18 06:00 Sputum Gram Stain Pending Resulted 03/14/18 06:00 Sputum Culture - Preliminary Gram Negative Bacillus 1 Resulted Critical Care - Subjective ROS Limited/Unobtainable: No Condition: critical EKG Rhythm: Sinus Rhythm FI02: 40 Vent Support Breath Rate: 8 Vent Support Mode: IMV/SIMV Vent Tidal Volume: 600 Sputum Amount: Moderate PEEP: 5.0 PIP: 26 Tube Feeding Amount: 30 I&O: Intake and Output 03/14/18 03/15/18 19:00 07:00 Intake Total 842.416 ml 465 ml Output Total 1015 ml 780 ml Balance -172.584 ml -315 ml Intake Free Water 50 ml IV Total 482.416 ml 55 ml Tube Feeding 360 ml 360 ml Output Urine Total 1015 ml 780 ml # Bowel Movements 1 2 CXR: RLL infiltrate Labs: Laboratory Tests Test 03/15/18 05:00 03/15/18 08:40 White Blood Count 13.4 K/UL (4.8-10.8) #H Red Blood Count 3.38 M/UL (4.20-5.40) L Hemoglobin 10.5 G/DL (12.0-16.0) L Hematocrit 32.6 % (37.0-47.0) L Mean Corpuscular Volume 96 FL (80-99) Mean Corpuscular Hemoglobin 31.2 PG (27.0-31.0) H Mean Corpuscular Hemoglobin Concent 32.3 G/DL (32.0-36.0) Red Cell Distribution Width 15.8 % (11.6-14.8) H Platelet Count 181 K/UL (150-450) Mean Platelet Volume 9.0 FL (6.5-10.1) Neutrophils (%) (Auto) 76.6 % (45.0-75.0) H Lymphocytes (%) (Auto) 11.1 % (20.0-45.0) L Monocytes (%) (Auto) 7.1 % (1.0-10.0) Eosinophils (%) (Auto) 4.5 % (0.0-3.0) H Basophils (%) (Auto) 0.7 % (0.0-2.0) Sodium Level 137 MMOL/L (136-145) Potassium Level 3.4 MMOL/L (3.5-5.1) L Chloride Level 101 MMOL/L (98-107) Carbon Dioxide Level 30 MMOL/L (21-32) Anion Gap 6 mmol/L (5-15) Blood Urea Nitrogen 6 mg/dL (7-18) L Creatinine 0.5 MG/DL (0.55-1.30) L Estimat Glomerular Filtration Rate mL/min (>60) Glucose Level 86 MG/DL (74-106) Calcium Level 8.9 MG/DL (8.5-10.1) Total Bilirubin 0.7 MG/DL (0.2-1.0) Aspartate Amino Transf (AST/SGOT) 51 U/L (15-37) H Alanine Aminotransferase (ALT/SGPT) 35 U/L (12-78) Alkaline Phosphatase 189 U/L (46-116) H Pro-B-Type Natriuretic Peptide 661 pg/mL (0-125) H Total Protein 7.6 G/DL (6.4-8.2) Albumin 2.2 G/DL (3.4-5.0) L Globulin 5.4 g/dL Albumin/Globulin Ratio 0.4 (1.0-2.7) L Vancomycin Level Trough 12.0 ug/mL (5.0-12.0) Savi Rodriguez MD Mar 15, 2018 09:57
[2018-03-15] MEDS: Vancomycin 1gm/D5W 275ml IVPB SCH ×4 (10:33→20:36)
--- NOTE | 2018-03-15 12:10 | Diagnostic Imaging Report ---
Indication: Dyspnea Comparison: 03/13/2018 A single view chest radiograph was obtained. Findings: There is enlargement of the cardiac silhouette with pulmonary vascular redistribution and prominence, hazy vessel margins and the suggestion of interstitial edema consistent with CHF. Superimpose the chronic disease of the interstitium not excluded such as fibrosis. No change seen. Tracheostomy noted. IMPRESSION: No significant change from 2 days earlier
--- NOTE | 2018-03-15 16:17 | Infectious Diseases Prog Note ---
Assessment/Plan Assessment/Plan Assessment: Septic Shock - ?2ry to PNA vs UTI- now Gram positive bacteremia (real vs contaminant; r/o MRSA) -CXR: Interstitial opacification/edema and patchy bilateral airspace opacities, right greater than left. Although findings may be related to fluid overload/CHF with a probable baseline of chronic interstitial disease, superimposed pneumonia is not excluded -u/a wbc 5-10, nit neg, leuk +1; ucx NTD -03/13 Bcx 3/ GPC clusters -sp cx GNR FEver/leukocytosis; improving Recent HCAP: PsA, P.mirabilis 11/2017, s/p RX -sp cx PsA (S zosyn; R cipro), P. mirabilis (S. Zosyn, Ceftriaxone; R cipro), Group G strep Hx of VRE UTI/bacteriuria Hx of CONS bacteremia (contaminant) History of multiple drug-resistant Klebsiella UTI History of anoxic encephalopathy. sp trach vent and PEG placement Seizure disorder Breast cancer Morbid obesity CHF HTN Diabetes Anemia Plan: -Continue empiric IV Vanco #3 pending ID and sensi GPC bcx -repeat 2 sets of Bcx -Continue empiric Meropenem #2 (abx d#3) pending sputum and urine cultures -03/14 SP Zosyn #2 -11/15 SP IV Zosyn #7, Zyvox #5 -11/11 SP IV Vancomcyin #3 -10/2017 SP Cefepime #7 -f/u cx -Monitor CBC/CMP, temperatures -Cdiff if diarrhea -2d Echo Thank you for this consultation. Will continue to follow along with you. Discussed with RN. Subjective Allergies: Coded Allergies: PEANUT (Verified Allergy, Unknown, 09/22/16) Subjective afebrile in >36hrs leukocytosis improving bacteremic with GPC clusters levo going down Objective Vital Signs Last 24 Hour Vital Signs Date Time Temp Pulse Resp B/P (MAP) Pulse Ox O2 Delivery O2 Flow Rate FiO2 03/15/18 15:00 76 27 85/37 (53) 95 03/15/18 14:00 78 24 103/40 (61) 95 03/15/18 13:00 81 28 92/42 (59) 94 03/15/18 12:42 79 26 40 03/15/18 12:00 84 03/15/18 12:00 40 03/15/18 12:00 Mechanical Ventilator 03/15/18 12:00 98.9 80 27 91/42 (58) 95 98.9 03/15/18 11:14 81 25 40 03/15/18 11:00 82 29 84/51 (62) 93 03/15/18 10:00 82 27 102/44 (63) 96 03/15/18 09:11 86 27 40 03/15/18 09:00 83 27 97/43 (61) 97 03/15/18 08:00 40 03/15/18 08:00 82 03/15/18 08:00 98.7 90 24 104/45 (64) 95 98.7 03/15/18 08:00 Mechanical Ventilator 03/15/18 07:28 82 25 40 03/15/18 07:00 85 23 93/64 (74) 99 03/15/18 06:00 80 25 93/38 (56) 93 03/15/18 05:18 79 26 40 03/15/18 05:00 81 25 87/39 (55) 93 03/15/18 04:00 40 03/15/18 04:00 84 03/15/18 04:00 Mechanical Ventilator 03/15/18 04:00 98.4 85 25 119/49 (72) 96 98.4 03/15/18 03:00 85 27 97/38 (57) 98 03/15/18 02:41 86 20 40 03/15/18 02:00 84 27 102/43 (62) 99 03/15/18 01:10 73 22 40 03/15/18 01:00 81 25 123/51 (75) 97 03/15/18 00:00 Mechanical Ventilator 03/15/18 00:00 97.5 76 23 93/38 (56) 97 97.5 03/15/18 00:00 40 03/15/18 00:00 87 03/14/18 23:03 79 26 40 03/14/18 23:00 76 25 110/60 (77) 98 03/14/18 22:00 78 25 107/51 (69) 97 03/14/18 21:00 81 26 106/51 (69) 99 03/14/18 20:59 78 26 40 03/14/18 20:00 50 03/14/18 20:00 77 03/14/18 20:00 98.0 80 26 96/61 (73) 97 98.0 03/14/18 20:00 Mechanical Ventilator 03/14/18 19:00 71 22 90/35 (53) 97 03/14/18 18:59 80 27 50 03/14/18 18:00 75 19 102/43 (62) 98 03/14/18 17:00 79 18 115/40 (65) 97 03/14/18 16:38 79 28 50 Height (Feet): 5 Height (Inches): 6.00 Weight (Pounds): 231 Objective General Appearance: WD/WN, no apparent distress Lines, tubes and drains: peripheral HEENT: normocephalic, atraumatic Neck: non-tender, normal alignment Respiratory/Chest: chest wall non-tender, lungs clear Breasts: no masses Cardiovascular/Chest: normal peripheral pulses Abdomen: normal bowel sounds, non tender Extremities: normal range of motion, non-tender Microbiology Date/Time Source Procedure Growth Status 03/13/18 17:50 Blood Blood Culture - Preliminary Resulted 03/13/18 17:35 Blood Blood Culture - Preliminary Resulted 03/14/18 06:00 Sputum Gram Stain - Final Resulted 03/14/18 06:00 Sputum Culture - Preliminary Gram Negative Bacillus 1 Resulted 03/13/18 19:23 Urine,Clean Catch Urine Culture - Preliminary NO GROWTH Resulted Laboratory Tests Test 03/15/18 05:00 03/15/18 08:40 White Blood Count 13.4 K/UL (4.8-10.8) #H Red Blood Count 3.38 M/UL (4.20-5.40) L Hemoglobin 10.5 G/DL (12.0-16.0) L Hematocrit 32.6 % (37.0-47.0) L Mean Corpuscular Volume 96 FL (80-99) Mean Corpuscular Hemoglobin 31.2 PG (27.0-31.0) H Mean Corpuscular Hemoglobin Concent 32.3 G/DL (32.0-36.0) Red Cell Distribution Width 15.8 % (11.6-14.8) H Platelet Count 181 K/UL (150-450) Mean Platelet Volume 9.0 FL (6.5-10.1) Neutrophils (%) (Auto) 76.6 % (45.0-75.0) H Lymphocytes (%) (Auto) 11.1 % (20.0-45.0) L Monocytes (%) (Auto) 7.1 % (1.0-10.0) Eosinophils (%) (Auto) 4.5 % (0.0-3.0) H Basophils (%) (Auto) 0.7 % (0.0-2.0) Sodium Level 137 MMOL/L (136-145) Potassium Level 3.4 MMOL/L (3.5-5.1) L Chloride Level 101 MMOL/L (98-107) Carbon Dioxide Level 30 MMOL/L (21-32) Anion Gap 6 mmol/L (5-15) Blood Urea Nitrogen 6 mg/dL (7-18) L Creatinine 0.5 MG/DL (0.55-1.30) L Estimat Glomerular Filtration Rate mL/min (>60) Glucose Level 86 MG/DL (74-106) Calcium Level 8.9 MG/DL (8.5-10.1) Total Bilirubin 0.7 MG/DL (0.2-1.0) Aspartate Amino Transf (AST/SGOT) 51 U/L (15-37) H Alanine Aminotransferase (ALT/SGPT) 35 U/L (12-78) Alkaline Phosphatase 189 U/L (46-116) H Pro-B-Type Natriuretic Peptide 661 pg/mL (0-125) H Total Protein 7.6 G/DL (6.4-8.2) Albumin 2.2 G/DL (3.4-5.0) L Globulin 5.4 g/dL Albumin/Globulin Ratio 0.4 (1.0-2.7) L Vancomycin Level Trough 12.0 ug/mL (5.0-12.0) Current Medications Medications (Trade) Dose Ordered Sig/Boubacar Route PRN Reason Start Time Stop Time Status Last Admin Dose Admin Acetaminophen (Tylenol) 650 mg Q4H PRN ORAL FEVER 03/13/18 21:00 04/12/18 20:59 03/14/18 01:44 Albuterol/ Ipratropium (Albuterol/ Ipratropium) 3 ml Q4H PRN HHN Shortness of Breath 03/13/18 21:00 03/18/18 20:59 Chlorhexidine Gluconate ([place]-Hex 2%) 1 applic DAILY@1999 TOPIC 03/14/18 20:00 04/13/18 19:59 03/14/18 20:00 Dextrose (Dextrose 50%) 25 ml STAT PRN IV Hypoglycemia 03/13/18 21:00 04/12/18 20:59 Dextrose (Dextrose 50%) 50 ml STAT PRN IV Hypoglycemia 03/13/18 21:00 04/12/18 20:59 Heparin Sodium (Porcine) (Heparin 5000 units/ml) 5,000 units EVERY 12 HOURS SUBQ 03/13/18 21:00 04/12/18 20:59 03/15/18 09:09 Levetiracetam (Keppra) 1,500 mg DAILY GT 03/14/18 09:00 04/13/18 08:59 03/15/18 09:08 Levothyroxine Sodium (Synthroid) 50 mcg DAILY@30 GT 03/14/18 06:30 04/13/18 06:29 03/15/18 06:26 Lorazepam (Ativan 2mg/ml 1ml) 2 mg Q2H PRN IV For Anxiety 03/13/18 21:00 03/20/18 20:59 Meropenem 1 gm/ Sodium Chloride 55 ml @ 110 mls/hr Q8HR IVPB 03/14/18 14:00 03/19/18 13:59 03/15/18 13:36 Morphine Sulfate (Morphine Sulfate) 4 mg Q4H PRN IVP Severe Pain (Pain Scale 7-10) 03/13/18 21:00 03/20/18 20:59 Norepinephrine Bitartrate 4 mg/ Dextrose 250 ml @ 7.5 mls/hr Q24H IV 03/13/18 22:30 04/12/18 22:29 03/14/18 04:44 Ondansetron HCl (Zofran) 4 mg Q6H PRN IVP Nausea & Vomiting 03/13/18 21:00 04/12/18 20:59 Pantoprazole (Protonix) 40 mg DAILY IV 03/14/18 09:00 04/13/18 08:59 03/15/18 09:08 Phenytoin (Dilantin) 200 mg Q8HR ORAL 03/15/18 22:00 04/14/18 21:59 Polyethylene Glycol (Miralax) 17 gm DAILYPRN PRN ORAL Constipation 03/13/18 21:00 04/12/18 20:59 Vancomycin HCl (Vanco rx to dose) 1 ea DAILY PRN MISC per rx protocol 03/13/18 21:15 04/12/18 21:14 Vancomycin HCl 1 gm/Dextrose 275 ml @ 183.708 mls/hr Q12H IVPB 03/14/18 09:00 03/19/18 08:59 03/15/18 10:33 Sadia Medeiros M.D. Mar 15, 2018 16:17
[2018-03-15] MEDS: Dyna-Hex 2% Top Sol 2oz TOPIC SCH (20:00)
[2018-03-15] MEDS: Phenytoin 100mg cap ORAL SCH (21:35)
[2018-03-16] VITALS (11 sets, daily range): BP systolic 81–108; BP diastolic 36–56
[2018-03-16] MEDS: Meropenem 1 GM in NS 55 ML IVPB SCH ×4 (05:56→22:41)
[2018-03-16] MEDS: Phenytoin 100mg cap ORAL SCH ×4 (05:57→22:40)
[2018-03-16 07:02] LABS: BASOPHILS % (AUTO) 0.9 % (0.0-2.0); EOSINOPHILS % (AUTO) 7.8 % (0.0-3.0); HEMATOCRIT 33.3 % (37.0-47.0); HEMOGLOBIN 10.7 G/DL (12.0-16.0); LYMPHOCYTES % (AUTO) 17.8 % (20.0-45.0); MEAN CORPUSCULAR VOLUME 96 FL (80-99); MONOCYTES % (AUTO) 9.8 % (1.0-10.0); NEUTROPHILS % (AUTO) 63.8 % (45.0-75.0); PLATELET COUNT 180 K/UL (150-450); RED BLOOD COUNT 3.47 M/UL (4.20-5.40); RED CELL DISTRIBUTION WIDTH 16.1 % (11.6-14.8); WHITE BLOOD COUNT 5.5 K/UL (4.8-10.8)
[2018-03-16] MEDS ORDERED: Meropenem 1 GM in NS 55 ML IVPB SCH (07:15)
[2018-03-16] MEDS ORDERED: Phenytoin 100mg cap ORAL SCH (07:15)
[2018-03-16 07:20] LABS: ALANINE AMINOTRANSFERASE 30 U/L (12-78); ALBUMIN/GLOBULIN RATIO 0.4 (1.0-2.7); ALKALINE PHOSPHATASE 183 U/L (46-116); ANION GAP 5 mmol/L (5-15); ASPARTATE AMINO TRANSFERASE 37 U/L (15-37); BILIRUBIN,TOTAL 0.5 MG/DL (0.2-1.0); BLOOD UREA NITROGEN 6 mg/dL (7-18); CARBON DIOXIDE 29 MMOL/L (21-32); CHLORIDE 104 MMOL/L (98-107); CREATININE 0.4 MG/DL (0.55-1.30); POTASSIUM 3.8 MMOL/L (3.5-5.1); SODIUM 138 MMOL/L (136-145)
--- NOTE | 2018-03-16 08:01 | Consultation ---
DATE OF CONSULTATION: 03/15/2018 HEMATOLOGY/ONCOLOGY CONSULTATION CONSULTING PHYSICIAN: Luke Hanna M.D. REQUESTING PHYSICIAN: Savi Rodriguez M.D. REASON FOR CONSULTATION: Evaluation of leukocytosis and anemia. IDENTIFYING DATA: Dear Dr. Rodriguez, Thank you for the courtesy of this consultation. The patient is a pleasant 77-year-old female with history of brain injury, CAD at this time and CHF, UTI, diabetes mellitus, hypothyroidism, morbid obesity, anemia, hyperlipidemia, history of breast cancer, chronic respiratory failure, on a vent and trach, PEG tube, who presents with a decreased blood pressure, presents to the EMS hypotensive, started on pressors, transferred to the ICU. Leukocytosis was noted. The patient was noted to have a leukocytosis up to 29,000, was here before, has had pneumonia in the past. In the past, also had Proteus mirabilis UTI and he was noted to have anemia. Hematology Service was consulted for further evaluation and treatment. PAST MEDICAL HISTORY: As noted above. PAST SURGICAL HISTORY: None. ALLERGIES: allergies besides drug allergies. MEDICATIONS: Reviewed. SOCIAL HISTORY: No alcohol, tobacco, or illicit drug use. REVIEW OF SYSTEMS: Difficult to obtain, the patient is status post trach. PHYSICAL EXAMINATION: VITAL SIGNS: Reviewed. GENERAL: No acute distress. LUNGS: Decreased breath sounds, status post trach. CARDIOVASCULAR: Regular rate. No S3 or S4. ABDOMEN: Soft, nontender, and nondistended. EXTREMITIES: A 1+ edema. LABORATORY AND DIAGNOSTIC DATA: WBC of 13,000, hemoglobin 10.5, hematocrit 33, and platelet count of 181,000. Imaging, chest x-ray reviewed, no changes from two days ago. A duplex lower extremity reviewed, negative. ASSESSMENT AND RECOMMENDATIONS: 1. Anemia due to underlying chronic disease. Continue to closely monitor. Consider anemia workup . 2. Leukocytosis, potentially secondary to aspiration pneumonia in the lower lobe quadrant. 3. Congestive heart failure. 4. Urinary tract infection secondary to pneumonia, on antibiotics. 5. Coronary artery disease. 6. Anoxic brain injury. 7. Respiratory failure, status post tracheostomy. I appreciate the consultation. Luke Hanna M.D. DR: DAVID JOB#: [id number] CC:
[2018-03-16] MEDS: levETIRAcetam 500mg/5ml Liquid GT SCH (08:04)
[2018-03-16] MEDS: Vancomycin 1 GM in D5W 275 ML IVPB SCH ×2 (08:34→20:58)
[2018-03-16] MEDS: Pantoprazole Inj IV SCH (08:34)
[2018-03-16] MEDS: Heparin 5000 units/ml inj SUBQ SCH ×2 (09:00→20:59)
[2018-03-16] MEDS ORDERED: LORazepam Inj 2mg/ml 1ml IV PRN (09:00)
[2018-03-16] MEDS ORDERED: Morphine Sulfate 4mg/ml Inj (IV USE ONLY) IVP PRN (09:00)
[2018-03-16] MEDS ORDERED: Albuterol/Ipratropium 3ml neb HHN PRN (09:00)
--- NOTE | 2018-03-16 09:57 | Pulmonolgy Critical Care Note ---
Critical Care - Asmt/Plan Problems: (1) Acute and chronic respiratory failure (2) Sepsis (3) Aspiration pneumonia (4) Anoxic encephalopathy (5) Seizure disorder (6) Functional paraplegia (7) Dysphagia s/p PEG Respiratory: monitor respiratory rate, adjust FIO2, CXR Cardiac: continue pressors, continue to monitor HR/BP Renal: F/U I&O Infectious Disease: check cultures Gastrointestinal: hold feedings Endocrine: monitor blood sugar Neurologic: PRN Morphine 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: cardio Discussed with: nurses, clinical case managertelemarketing manager - Objective Last 24 Hour Vital Signs Date Time Temp Pulse Resp B/P (MAP) Pulse Ox O2 Delivery O2 Flow Rate FiO2 03/16/18 08:00 40 03/16/18 08:00 98.1 75 14 94/49 (64) 95 98.1 03/16/18 08:00 Mechanical Ventilator 03/16/18 07:29 77 14 40 03/16/18 06:00 73 14 105/51 (69) 95 03/16/18 05:15 71 13 40 03/16/18 05:00 70 14 99/46 (63) 93 03/16/18 04:00 98.5 72 18 93/42 (59) 93 98.5 03/16/18 04:00 40 03/16/18 04:00 Mechanical Ventilator 03/16/18 04:00 72 03/16/18 03:20 71 12 40 03/16/18 03:00 75 24 88/40 (56) 93 03/16/18 02:09 77 13 40 03/16/18 02:00 78 26 81/36 (51) 94 03/16/18 01:00 80 29 108/41 (63) 94 03/16/18 00:54 103 28 40 03/16/18 00:00 Mechanical Ventilator 03/16/18 00:00 77 03/16/18 00:00 40 03/16/18 00:00 98.5 76 28 86/41 (56) 95 98.5 03/15/18 23:11 79 29 40 03/15/18 23:00 75 30 100/40 (60) 95 03/15/18 22:30 92/45 03/15/18 22:00 79 29 92/45 (61) 98 03/15/18 21:35 79 29 40 03/15/18 21:00 78 29 117/45 (69) 98 7/12/18 21:00 40 03/15/18 20:08 79 03/15/18 20:00 98.8 77 29 91/41 (58) 96 98.8 03/15/18 20:00 Mechanical Ventilator 03/15/18 19:09 80 30 40 03/15/18 19:00 77 29 91/47 (62) 95 03/15/18 18:00 88 22 90/56 (67) 98 03/15/18 17:10 78 29 40 03/15/18 17:00 77 28 89/41 (57) 95 03/15/18 16:00 Mechanical Ventilator 03/15/18 16:00 98.9 76 27 84/40 (55) 94 98.9 03/15/18 16:00 77 03/15/18 16:00 40 03/15/18 15:29 77 27 40 03/15/18 15:00 76 27 85/37 (53) 95 03/15/18 14:00 78 24 103/40 (61) 95 03/15/18 13:00 81 28 92/42 (59) 94 03/15/18 12:42 79 26 40 03/15/18 12:00 84 03/15/18 12:00 40 03/15/18 12:00 Mechanical Ventilator 03/15/18 12:00 98.9 80 27 91/42 (58) 95 98.9 03/15/18 11:14 81 25 40 03/15/18 11:00 82 29 84/51 (62) 93 03/15/18 10:00 82 27 102/44 (63) 96 Status: awake Condition: critical Neck: full ROM Lungs: chest wall tender Heart: HR/BP unstable Abdomen: soft, active bowel sounds, feeding tube Extremities: edema Decubiti: stage Micro: Microbiology Date/Time Source Procedure Growth Status 03/13/18 17:50 Blood Blood Culture - Preliminary Staphylococcus Species Resulted 03/13/18 17:35 Blood Blood Culture - Preliminary Staphylococcus Species Resulted 03/14/18 06:00 Sputum Gram Stain - Final Resulted 03/14/18 06:00 Sputum Culture - Preliminary Gram Negative Bacillus 1 Resulted 03/13/18 19:23 Urine,Clean Catch Urine Culture - Preliminary NO GROWTH AFTER 24 HOURS Resulted 03/13/18 19:27 Rectum - Final NO CARBAPENEM-RESISTANT ENTEROBACTERI... Complete Critical Care - Subjective ROS Limited/Unobtainable: No Condition: critical EKG Rhythm: Sinus Rhythm FI02: 40 Vent Support Breath Rate: 12 Vent Support Mode: AC Vent Tidal Volume: 600 Sputum Amount: Moderate PEEP: 5.0 PIP: 32 Tube Feeding Amount: 30 I&O: Intake and Output 03/15/18 03/16/18 19:00 07:00 Intake Total 971 ml 810 ml Output Total 645 ml 605 ml Balance 326 ml 205 ml Intake Free Water 150 ml IV Total 441 ml 330 ml Tube Feeding 360 ml 360 ml Other 20 ml 120 ml Output Urine Total 645 ml 605 ml # Bowel Movements 2 Labs: Laboratory Tests Test 03/16/18 06:02 White Blood Count 5.5 K/UL (4.8-10.8) # Red Blood Count 3.47 M/UL (4.20-5.40) L Hemoglobin 10.7 G/DL (12.0-16.0) L Hematocrit 33.3 % (37.0-47.0) L Mean Corpuscular Volume 96 FL (80-99) Mean Corpuscular Hemoglobin 30.8 PG (27.0-31.0) Mean Corpuscular Hemoglobin Concent 32.1 G/DL (32.0-36.0) Red Cell Distribution Width 16.1 % (11.6-14.8) H Platelet Count 180 K/UL (150-450) Mean Platelet Volume 9.6 FL (6.5-10.1) Neutrophils (%) (Auto) 63.8 % (45.0-75.0) Lymphocytes (%) (Auto) 17.8 % (20.0-45.0) L Monocytes (%) (Auto) 9.8 % (1.0-10.0) Eosinophils (%) (Auto) 7.8 % (0.0-3.0) H Basophils (%) (Auto) 0.9 % (0.0-2.0) Sodium Level 138 MMOL/L (136-145) Potassium Level 3.8 MMOL/L (3.5-5.1) Chloride Level 104 MMOL/L (98-107) Carbon Dioxide Level 29 MMOL/L (21-32) Anion Gap 5 mmol/L (5-15) Blood Urea Nitrogen 6 mg/dL (7-18) L Creatinine 0.4 MG/DL (0.55-1.30) L Estimat Glomerular Filtration Rate mL/min (>60) Glucose Level 97 MG/DL (74-106) Calcium Level 9.0 MG/DL (8.5-10.1) Total Bilirubin 0.5 MG/DL (0.2-1.0) Aspartate Amino Transf (AST/SGOT) 37 U/L (15-37) Alanine Aminotransferase (ALT/SGPT) 30 U/L (12-78) Alkaline Phosphatase 183 U/L (46-116) H Pro-B-Type Natriuretic Peptide 352 pg/mL (0-125) H Total Protein 7.0 G/DL (6.4-8.2) Albumin 2.0 G/DL (3.4-5.0) L Globulin 5.0 g/dL Albumin/Globulin Ratio 0.4 (1.0-2.7) L Savi Rodriguez MD Mar 16, 2018 09:57
--- NOTE | 2018-03-16 12:57 | General Progress Note ---
Assessment/Plan Status: stable Assessment/Plan 1. Anemia due to underlying chronic disease. --> Continue to closely monitor. --> Hgb at 10.7, consider anemia workup if there is an acute drop. 2. Leukocytosis, potentially secondary to aspiration pneumonia in the lower lobe quadrant. --> WBC improved. --> Pt is on abx 3. Congestive heart failure. 4. Urinary tract infection, secondary to pneumonia, on antibiotics. --> UA ++ 5. Coronary artery disease. 6. Anoxic brain injury. 7. Respiratory failure, status post tracheostomy. Subjective Date patient seen: Mar 16, 2018 ROS Limited/Unobtainable: Yes Allergies: Coded Allergies: PEANUT (Verified Allergy, Unknown, 09/22/16) All Systems: reviewed and negative except above Subjective Pt transferred from ICU to [facility]. No acute evetns. CXR shows no significant change. Objective Last 24 Hour Vital Signs Date Time Temp Pulse Resp B/P (MAP) Pulse Ox O2 Delivery O2 Flow Rate FiO2 03/16/18 11:02 71 13 40 03/16/18 08:54 74 15 40 03/16/18 08:00 40 03/16/18 08:00 98.1 75 14 94/49 (64) 95 98.1 03/16/18 08:00 Mechanical Ventilator 03/16/18 07:54 73 03/16/18 07:29 77 14 40 03/16/18 06:00 73 14 105/51 (69) 95 03/16/18 05:15 71 13 40 03/16/18 05:00 70 14 99/46 (63) 93 03/16/18 04:00 98.5 72 18 93/42 (59) 93 98.5 03/16/18 04:00 40 03/16/18 04:00 Mechanical Ventilator 03/16/18 04:00 72 03/16/18 03:20 71 12 40 03/16/18 03:00 75 24 88/40 (56) 93 03/16/18 02:09 77 13 40 03/16/18 02:00 78 26 81/36 (51) 94 03/16/18 01:00 80 29 108/41 (63) 94 03/16/18 00:54 103 28 40 03/16/18 00:00 Mechanical Ventilator 03/16/18 00:00 77 03/16/18 00:00 40 03/16/18 00:00 98.5 76 28 86/41 (56) 95 98.5 03/15/18 23:11 79 29 40 03/15/18 23:00 75 30 100/40 (60) 95 03/15/18 22:30 92/45 03/15/18 22:00 79 29 92/45 (61) 98 03/15/18 21:35 79 29 40 03/15/18 21:00 78 29 117/45 (69) 98 03/15/18 21:00 40 03/15/18 20:08 79 03/15/18 20:00 98.8 77 29 91/41 (58) 96 98.8 03/15/18 20:00 Mechanical Ventilator 03/15/18 19:09 80 30 40 03/15/18 19:00 77 29 91/47 (62) 95 03/15/18 18:00 88 22 90/56 (67) 98 03/15/18 17:10 78 29 40 03/15/18 17:00 77 28 89/41 (57) 95 03/15/18 16:00 Mechanical Ventilator 03/15/18 16:00 98.9 76 27 84/40 (55) 94 98.9 03/15/18 16:00 77 03/15/18 16:00 40 03/15/18 15:29 77 27 40 03/15/18 15:00 76 27 85/37 (53) 95 03/15/18 14:00 78 24 103/40 (61) 95 03/15/18 13:00 81 28 92/42 (59) 94 Intake and Output 03/15/18 03/16/18 19:00 07:00 Intake Total 971 ml 810 ml Output Total 645 ml 605 ml Balance 326 ml 205 ml Intake Free Water 150 ml IV Total 441 ml 330 ml Tube Feeding 360 ml 360 ml Other 20 ml 120 ml Output Urine Total 645 ml 605 ml # Bowel Movements 2 Laboratory Tests 03/16/18 06:02: White Blood Count 5.5#, Red Blood Count 3.47L, Hemoglobin 10.7L, Hematocrit 33.3L, Mean Corpuscular Volume 96, Mean Corpuscular Hemoglobin 30.8, Mean Corpuscular Hemoglobin Concent 32.1, Red Cell Distribution Width 16.1H, Platelet Count 180, Mean Platelet Volume 9.6, Neutrophils (%) (Auto) 63.8, Lymphocytes (%) (Auto) 17.8L, Monocytes (%) (Auto) 9.8, Eosinophils (%) (Auto) 7.8H, Basophils (%) (Auto) 0.9, Sodium Level 138, Potassium Level 3.8, Chloride Level 104, Carbon Dioxide Level 29, Anion Gap 5, Blood Urea Nitrogen 6L, Creatinine 0.4L, Estimat Glomerular Filtration Rate , Glucose Level 97, Calcium Level 9.0, Total Bilirubin 0.5, Aspartate Amino Transf (AST/SGOT) 37, Alanine Aminotransferase (ALT/SGPT) 30, Alkaline Phosphatase 183H, Pro-B-Type Natriuretic Peptide 352H, Total Protein 7.0, Albumin 2.0L, Globulin 5.0, Albumin /Globulin Ratio 0.4L Height (Feet): 5 Height (Inches): 6.00 Weight (Pounds): 266 General Appearance: no apparent distress EENT: PERRL/EOMI Neck: normal alignment Cardiovascular: normal peripheral pulses Respiratory/Chest: no respiratory distress Abdomen: normal bowel sounds Luke Hanna MD Mar 16, 2018 12:57
[2018-03-16] MEDS ORDERED: Lidocaine 1% Plain 30 ml INJ ONE (13:00)
[2018-03-16] MEDS ORDERED: Heparin 2000 units/Ns 1000ml INJ ONE (13:00)
[2018-03-16] MEDS ORDERED: Tubing IV Secondary IV ONE (14:27)
[2018-03-16] MEDS ORDERED: NS 275ml ONE (14:27)
--- NOTE | 2018-03-16 14:56 | Pre-Procedure Note/Attestation ---
Pre-Procedure Note/Attestation Complete Prior to Procedure Planned Procedure: right Procedure Narrative: PICC line placement Indications for Procedure Pre-Operative Diagnosis: need IV access Attestation Consent for procedure obtained by the medical staff. This was confirmed prior to the procedure. I attest that I re-evaluated the patient just prior to the surgery and that there has been no change in the patient's H&P, except as documented below: Roby Cunningham M.D. Mar 16, 2018 14:56
--- NOTE | 2018-03-16 15:36 | Diagnostic Imaging Report ---
Indications: Needs long-term IV access Technique: Procedure performed at bedside. Informed consent obtained by the primary team, confirmed prior to the procedure. Procedural timeout performed. Ultrasound confirms patent compressible right basilic vein. Total sterile technique, including sterile probe cover and sterile gel, sterile gloves, hand hygiene, hat, mask,, sterile gown, large sterile drape, and preparation with 2% chlorhexidine utilized. Local anesthesia with 1% lidocaine. Under real-time ultrasound guidance, puncture right basilic vein using 21-gauge needle, passage 0.018 guidewire, exchange for 5 Afghan peel-away sheath. 5 Afghan dual-lumen power PICC cut to 35 cm. It was inserted through the peel-away sheath. Peel-away sheath and guidewire removed. Catheter fixed to the skin. Both catheter ports aspirated and flushed. Patient tolerated procedure well, without immediate complication. Followup chest x-ray obtained, documents catheter tip position at the lower SVC/cavoatrial junction Additional incidental findings: Heart size and mediastinal contours are stable. No significant interval change in bilateral interstitial opacities compared to one day prior. No pneumothorax. Tracheostomy tube again noted. Surgical clips noted in the right axilla. Impression: Successful bedside placement of 5 Afghan, double-lumen PICC under sonographic guidance, as described above. PICC line cleared for immediate use.
--- NOTE | 2018-03-16 15:40 | Diagnostic Imaging Report ---
Indication: Dyspnea Technique: XRAY Chest 1v Comparison: 03/15/2018 Findings: Stable cardiomegaly. Bilateral interstitial opacities unchanged. Tracheostomy tube is stable. No acute osseous abnormality. IMPRESSION: No significant interval change in cardiomegaly, pulmonary vascular congestion/mild CHF compared to one day prior. Possible component of chronic interstitial disease can be considered.
--- NOTE | 2018-03-16 17:54 | Infectious Diseases Prog Note ---
Assessment/Plan Assessment/Plan Assessment: Septic Shock,SP - ?2ry to PNA vs UTI- now Gram positive bacteremia (real vs contaminant; r/o MRSA) -CXR: Interstitial opacification/edema and patchy bilateral airspace opacities, right greater than left. Although findings may be related to fluid overload/CHF with a probable baseline of chronic interstitial disease, superimposed pneumonia is not excluded -u/a wbc 5-10, nit neg, leuk +1; ucx NTD -03/13 Bcx 11/05 Staph sp; 03/05 Bcx p -sp cx GNR -2d echo: no vegetations FEver/leukocytosis; improving Recent HCAP: PsA, P.mirabilis 11/2017, s/p RX -sp cx PsA (S zosyn; R cipro), P. mirabilis (S. Zosyn, Ceftriaxone; R cipro), Group G strep Hx of VRE UTI/bacteriuria Hx of CONS bacteremia (contaminant) History of multiple drug-resistant Klebsiella UTI History of anoxic encephalopathy. sp trach vent and PEG placement Seizure disorder Breast cancer Morbid obesity CHF HTN Diabetes Anemia Plan: -Continue empiric IV Vanco #4 pending ID and sensi GPC bcx and repeat Bcx -repeat 2 sets of Bcx -Continue empiric Meropenem #3 (abx d#4) pending sputum and urine cultures -03/14 SP Zosyn #2 -11/15 SP IV Zosyn #7, Zyvox #5 -11/11 SP IV Vancomcyin #3 -10/2017 SP Cefepime #7 -f/u cx -Monitor CBC/CMP, temperatures -Cdiff if diarrhea Thank you for this consultation. Will continue to follow along with you. Discussed with RN. Subjective Allergies: Coded Allergies: PEANUT (Verified Allergy, Unknown, 09/22/16) Subjective afebrile in ~72 hrs leukocytosis resolved repeat Bcx p transferred out of ICU to [facility] Objective Vital Signs Last 24 Hour Vital Signs Date Time Temp Pulse Resp B/P (MAP) Pulse Ox O2 Delivery O2 Flow Rate FiO2 03/16/18 16:53 73 14 40 03/16/18 14:59 69 16 40 03/16/18 13:06 73 16 40 03/16/18 12:00 74 03/16/18 12:00 Mechanical Ventilator 03/16/18 12:00 40 03/16/18 11:02 71 13 40 03/16/18 08:54 74 15 40 03/16/18 08:00 40 03/16/18 08:00 98.1 75 14 94/49 (64) 95 98.1 03/16/18 08:00 Mechanical Ventilator 03/16/18 07:54 73 03/16/18 07:29 77 14 40 03/16/18 06:00 73 14 105/51 (69) 95 03/16/18 05:15 71 13 40 03/16/18 05:00 70 14 99/46 (63) 93 03/16/18 04:00 98.5 72 18 93/42 (59) 93 98.5 03/16/18 04:00 40 03/16/18 04:00 Mechanical Ventilator 03/16/18 04:00 72 03/16/18 03:20 71 12 40 03/16/18 03:00 75 24 88/40 (56) 93 03/16/18 02:09 77 13 40 03/16/18 02:00 78 26 81/36 (51) 94 03/16/18 01:00 80 29 108/41 (63) 94 03/16/18 00:54 103 28 40 03/16/18 00:00 Mechanical Ventilator 03/16/18 00:00 77 03/16/18 00:00 40 03/16/18 00:00 98.5 76 28 86/41 (56) 95 98.5 03/15/18 23:11 79 29 40 03/15/18 23:00 75 30 100/40 (60) 95 03/15/18 22:30 92/45 03/15/18 22:00 79 29 92/45 (61) 98 03/15/18 21:35 79 29 40 03/15/18 21:00 78 29 117/45 (69) 98 03/15/18 21:00 40 03/15/18 20:08 79 03/15/18 20:00 98.8 77 29 91/41 (58) 96 98.8 03/15/18 20:00 Mechanical Ventilator 03/15/18 19:09 80 30 40 03/15/18 19:00 77 29 91/47 (62) 95 03/15/18 18:00 88 22 90/56 (67) 98 Height (Feet): 5 Height (Inches): 6.00 Weight (Pounds): 266 Objective General Appearance: WD/WN, no apparent distress Lines, tubes and drains: peripheral HEENT: normocephalic, atraumatic Neck: non-tender, normal alignment Respiratory/Chest: chest wall non-tender, lungs clear Breasts: no masses Cardiovascular/Chest: normal peripheral pulses Abdomen: normal bowel sounds, non tender Extremities: normal range of motion, non-tender Microbiology Date/Time Source Procedure Growth Status 03/13/18 17:50 Blood Blood Culture - Preliminary Staphylococcus Species Resulted 03/14/18 06:00 Sputum Gram Stain - Final Resulted 03/14/18 06:00 Sputum Culture - Preliminary Gram Negative Bacillus 1 Resulted 03/13/18 17:50 Nasal Nares MRSA Culture - Final NO METHICILLIN RESISTANT STAPH AUREUS... Complete 03/13/18 19:23 Urine,Clean Catch Urine Culture - Preliminary NO GROWTH AFTER 24 HOURS Resulted 03/13/18 19:27 Rectum - Final NO CARBAPENEM-RESISTANT ENTEROBACTERI... Complete Laboratory Tests Test 03/16/18 06:02 White Blood Count 5.5 K/UL (4.8-10.8) # Red Blood Count 3.47 M/UL (4.20-5.40) L Hemoglobin 10.7 G/DL (12.0-16.0) L Hematocrit 33.3 % (37.0-47.0) L Mean Corpuscular Volume 96 FL (80-99) Mean Corpuscular Hemoglobin 30.8 PG (27.0-31.0) Mean Corpuscular Hemoglobin Concent 32.1 G/DL (32.0-36.0) Red Cell Distribution Width 16.1 % (11.6-14.8) H Platelet Count 180 K/UL (150-450) Mean Platelet Volume 9.6 FL (6.5-10.1) Neutrophils (%) (Auto) 63.8 % (45.0-75.0) Lymphocytes (%) (Auto) 17.8 % (20.0-45.0) L Monocytes (%) (Auto) 9.8 % (1.0-10.0) Eosinophils (%) (Auto) 7.8 % (0.0-3.0) H Basophils (%) (Auto) 0.9 % (0.0-2.0) Sodium Level 138 MMOL/L (136-145) Potassium Level 3.8 MMOL/L (3.5-5.1) Chloride Level 104 MMOL/L (98-107) Carbon Dioxide Level 29 MMOL/L (21-32) Anion Gap 5 mmol/L (5-15) Blood Urea Nitrogen 6 mg/dL (7-18) L Creatinine 0.4 MG/DL (0.55-1.30) L Estimat Glomerular Filtration Rate mL/min (>60) Glucose Level 97 MG/DL (74-106) Calcium Level 9.0 MG/DL (8.5-10.1) Total Bilirubin 0.5 MG/DL (0.2-1.0) Aspartate Amino Transf (AST/SGOT) 37 U/L (15-37) Alanine Aminotransferase (ALT/SGPT) 30 U/L (12-78) Alkaline Phosphatase 183 U/L (46-116) H Pro-B-Type Natriuretic Peptide 352 pg/mL (0-125) H Total Protein 7.0 G/DL (6.4-8.2) Albumin 2.0 G/DL (3.4-5.0) L Globulin 5.0 g/dL Albumin/Globulin Ratio 0.4 (1.0-2.7) L Current Medications Medications (Trade) Dose Ordered Sig/Boubacar Route PRN Reason Start Time Stop Time Status Last Admin Dose Admin Acetaminophen (Tylenol) 650 mg Q4H PRN ORAL FEVER 03/16/18 09:00 04/12/18 20:59 Albuterol/ Ipratropium (Albuterol/ Ipratropium) 3 ml Q4H PRN HHN Shortness of Breath 03/16/18 09:00 03/18/18 20:59 Chlorhexidine Gluconate ([place]-Hex 2%) 1 applic DAILY@1999 TOPIC 03/16/18 20:00 04/13/18 19:59 Chlorhexidine Gluconate ([place]-Hex 2%) 1 applic DAILY@1999 TOPIC 03/16/18 20:00 04/15/18 19:59 Dextrose (Dextrose 50%) 25 ml STAT PRN IV Hypoglycemia 03/16/18 21:00 04/12/18 20:59 Dextrose (Dextrose 50%) 50 ml STAT PRN IV Hypoglycemia 03/16/18 21:00 04/12/18 20:59 Heparin Sodium (Porcine) (Heparin 5000 units/ml) 5,000 units EVERY 12 HOURS SUBQ 03/16/18 09:00 04/12/18 20:59 03/16/18 09:00 Levetiracetam (Keppra) 1,500 mg DAILY GT 03/16/18 09:00 04/13/18 08:59 03/16/18 08:04 Levothyroxine Sodium (Synthroid) 50 mcg DAILY@0630 GT 03/17/18 06:30 04/13/18 06:29 Lorazepam (Ativan 2mg/ml 1ml) 2 mg Q2H PRN IV For Anxiety 03/16/18 09:00 03/20/18 20:59 Meropenem 1 gm/ Sodium Chloride 55 ml @ 110 mls/hr Q8HR IVPB 03/16/18 08:00 03/21/18 07:59 03/16/18 14:00 Midodrine (Pro-Amatine) 5 mg THREE TIMES A DAY ORAL 03/16/18 09:00 04/14/18 17:59 03/16/18 15:19 Morphine Sulfate (Morphine Sulfate) 4 mg Q4H PRN IVP Severe Pain (Pain Scale 7-10) 03/16/18 09:00 03/20/18 20:59 Ondansetron HCl (Zofran) 4 mg Q6H PRN IVP Nausea & Vomiting 03/16/18 09:00 04/12/18 20:59 Pantoprazole (Protonix) 40 mg DAILY IV 03/16/18 09:00 04/13/18 08:59 03/16/18 08:34 Phenytoin (Dilantin) 200 mg Q8HR ORAL 03/16/18 08:00 04/15/18 07:59 03/16/18 15:18 Polyethylene Glycol (Miralax) 17 gm DAILYPRN PRN ORAL Constipation 03/16/18 21:00 04/12/18 20:59 Vancomycin HCl (Vanco rx to dose) 1 ea DAILY PRN MISC per rx protocol 03/16/18 09:00 04/12/18 21:14 Vancomycin HCl 1 gm/Dextrose 275 ml @ 183.708 mls/hr Q12H IVPB 03/16/18 09:00 03/19/18 08:59 03/16/18 08:34 Sadia Medeiros M.D. Mar 16, 2018 17:54
[2018-03-16] MEDS: Dyna-Hex 2% Top Sol 2oz TOPIC SCH (20:00)
[2018-03-16] MEDS ORDERED: Dyna-Hex 2% Top Sol 2oz TOPIC SCH (20:00)
[2018-03-16] MEDS ORDERED: Miralax 17gm pkt ORAL PRN (21:00)
--- NOTE | 2018-03-16 21:46 | Consultation ---
DATE OF CONSULTATION: 03/16/2018 MEDICAL CONSULTATION CONSULTING PHYSICIAN: Juaquin Ramos D.O. CHIEF COMPLAINT: Fever and hypotension. BRIEF HISTORY: This is a 77-year-old female from [facility], who is chronically trach vent patient with respiratory failure, transferred to [place] for fever and hypotension. The patient was diagnosed with the above and admitted to [facility] for further care. Currently trach, vent, altered, and lethargic, in bed, nonverbal. PAST MEDICAL HISTORY: Respiratory failure, CVA, anoxic encephalopathy, seizure, congestive heart failure, and hypothyroid. PAST SURGICAL HISTORY: Trach. MEDICATIONS: Levothyroxine, norepinephrine, vancomycin, Tylenol, albuterol, heparin, , lorazepam, midodrine, Zofran, vancomycin, and meropenem. ALLERGIES: Peanuts. SOCIAL HISTORY: Unable to obtain secondary to the patient's condition. REVIEW OF SYSTEMS: Unavailable. PHYSICAL EXAMINATION: VITAL SIGNS: Temperature is 98, pulse 74, respirations 14, and blood pressure now 94/49. CARDIOVASCULAR: No murmurs. LUNGS: Poor air exchange. ABDOMEN: Bowel sounds distant. EXTREMITIES: No cyanosis, clubbing, or edema. NEUROLOGIC: The patient is flaccid in bed, not following directions. LABORATORY DATA: Labs at this time show initially white count was 24, now down to 5.5; H and H 10/33; and platelets 180,000. BMP shows BUN and creatinine are 6/0.4, otherwise, BMP is normal. INR is 1.1. Urine tox, vancomycin was 12. Urinalysis is leukocyte esterase 1+ and nitrite negative. ASSESSMENT: 1. Urinary tract infection. 2. Fever. 3. Sepsis. 4. Shock. 5. Respiratory failure. 6. Cerebrovascular accident. 7. Anoxic encephalopathy. 8. Seizure. 9. Congestive heart failure. 10. Hypothyroid. PLAN: 1. Vent per Pulmonary. 2. Antibiotics per Infectious Disease. 3. Resume home medications. 4. Seizure and blood pressure control. 5. Dietary followup. 6. CBC and BMP in the morning. Juaquin Ramos D.O. DR: JERE JOB#: [id number] CC:
[2018-03-17] VITALS: BP 106/52
[2018-03-17 04:00] VITALS: BP 105/62
[2018-03-17 05:11] LABS: BASOPHILS % (AUTO) 0.9 % (0.0-2.0); EOSINOPHILS % (AUTO) 7.7 % (0.0-3.0); HEMATOCRIT 32.5 % (37.0-47.0); HEMOGLOBIN 10.4 G/DL (12.0-16.0); LYMPHOCYTES % (AUTO) 24.3 % (20.0-45.0); MEAN CORPUSCULAR VOLUME 95 FL (80-99); MONOCYTES % (AUTO) 11.7 % (1.0-10.0); NEUTROPHILS % (AUTO) 55.4 % (45.0-75.0); PLATELET COUNT 191 K/UL (150-450); RED BLOOD COUNT 3.43 M/UL (4.20-5.40); RED CELL DISTRIBUTION WIDTH 15.7 % (11.6-14.8); WHITE BLOOD COUNT 5.6 K/UL (4.8-10.8)
[2018-03-17] MEDS: Meropenem 1 GM in NS 55 ML IVPB SCH ×3 (06:02→23:34)
[2018-03-17] MEDS: Phenytoin 100mg cap ORAL SCH ×3 (06:03→23:35)
[2018-03-17 06:39] LABS: ANION GAP 3 mmol/L (5-15); BLOOD UREA NITROGEN 5 mg/dL (7-18); CALCIUM 8.8 MG/DL (8.5-10.1); CARBON DIOXIDE 29 MMOL/L (21-32); CHLORIDE 104 MMOL/L (98-107); CREATININE 0.5 MG/DL (0.55-1.30); POTASSIUM 3.5 MMOL/L (3.5-5.1); SODIUM 136 MMOL/L (136-145)
[2018-03-17 08:00] VITALS: BP 105/51
[2018-03-17] MEDS: Vancomycin 1 GM in D5W 275 ML IVPB SCH ×2 (08:39→21:26)
[2018-03-17] MEDS: levETIRAcetam 500mg/5ml Liquid GT SCH (08:40)
[2018-03-17] MEDS: Pantoprazole Inj IV SCH (08:41)
[2018-03-17] MEDS: Heparin 5000 units/ml inj SUBQ SCH ×2 (08:44→21:32)
--- NOTE | 2018-03-17 09:04 | General Progress Note ---
Assessment/Plan Problem List: (1) UTI (urinary tract infection) ICD Codes: N39.0 - Urinary tract infection, site not specified SNOMED: 39440124 (2) Hypotension ICD Codes: I95.9 - Hypotension, unspecified SNOMED: 25900555 (3) Chronic respiratory failure ICD Codes: J96.10 - Chronic respiratory failure, unspecified whether with hypoxia or hypercapnia SNOMED: 42120309 (4) CHF (congestive heart failure) ICD Codes: I50.9 - Heart failure, unspecified SNOMED: 23502821 (5) Seizure ICD Codes: R56.9 - Unspecified convulsions SNOMED: 47355216 (6) Hypothyroidism ICD Codes: E03.9 - Hypothyroidism, unspecified SNOMED: 52952573 Status: unchanged Assessment/Plan vent abx cbc bmp am Subjective Constitutional: Reports: weakness Allergies: Coded Allergies: PEANUT (Verified Allergy, Unknown, 09/22/16) All Systems: reviewed and negative except above Subjective trach vent altered calm Objective Last 24 Hour Vital Signs Date Time Temp Pulse Resp B/P (MAP) Pulse Ox O2 Delivery O2 Flow Rate FiO2 03/17/18 07:11 75 13 40 03/17/18 05:01 69 15 40 03/17/18 04:00 73 03/17/18 04:00 96.8 73 19 105/62 (76) 99 96.8 03/17/18 04:00 40 03/17/18 04:00 Mechanical Ventilator 03/17/18 02:36 79 18 40 03/17/18 01:30 71 17 40 03/17/18 00:23 77 16 40 03/17/18 00:00 Mechanical Ventilator 03/17/18 00:00 75 03/17/18 00:00 40 03/17/18 00:00 98.1 73 19 106/52 (70) 99 98.1 03/16/18 22:34 68 17 40 03/16/18 21:09 64 19 40 03/16/18 20:00 63 03/16/18 20:00 Mechanical Ventilator 03/16/18 20:00 96.2 69 15 105/50 (68) 98 96.2 03/16/18 20:00 40 03/16/18 19:17 63 13 40 03/16/18 16:53 73 14 40 03/16/18 16:00 40 03/16/18 16:00 Mechanical Ventilator 03/16/18 16:00 97.9 70 14 96/45 (62) 95 97.9 03/16/18 16:00 70 03/16/18 14:59 69 16 40 03/16/18 13:06 73 16 40 03/16/18 12:00 98.5 70 14 98/56 (70) 95 98.5 03/16/18 12:00 74 03/16/18 12:00 Mechanical Ventilator 03/16/18 12:00 40 03/16/18 11:02 71 13 40 Intake and Output 03/16/18 03/17/18 19:00 07:00 Intake Total 825 ml 795.000 ml Output Total 50 ml 900 ml Balance 775 ml -105.000 ml Intake Free Water 100 ml IV Total 385 ml 495.000 ml Tube Feeding 330 ml 150 ml Other 110 ml 50 ml Output Urine Total 50 ml 900 ml # Voids 2 # Bowel Movements 2 Laboratory Tests 03/17/18 04:00: White Blood Count 5.6, Red Blood Count 3.43L, Hemoglobin 10.4L, Hematocrit 32.5L , Mean Corpuscular Volume 95, Mean Corpuscular Hemoglobin 30.4, Mean Corpuscular Hemoglobin Concent 32.0, Red Cell Distribution Width 15.7H, Platelet Count 191, Mean Platelet Volume 10.3H, Neutrophils (%) (Auto) 55.4, Lymphocytes (%) (Auto) 24.3, Monocytes (%) (Auto) 11.7H, Eosinophils (%) (Auto) 7.7H, Basophils (%) (Auto) 0.9, Sodium Level 136, Potassium Level 3.5, Chloride Level 104, Carbon Dioxide Level 29, Anion Gap 3L, Blood Urea Nitrogen 5L, Creatinine 0.5L, Estimat Glomerular Filtration Rate , Glucose Level 93, Calcium Level 8.8 Height (Feet): 5 Height (Inches): 6.00 Weight (Pounds): 237 General Appearance: lethargic EENT: normal ENT inspection Neck: normal alignment Cardiovascular: normal peripheral pulses, normal rate, regular rhythm Respiratory/Chest: chest wall non-tender, lungs clear, normal breath sounds Abdomen: normal bowel sounds, non tender, soft Extremities: normal inspection Edema: no edema noted Arm (L), no edema noted Arm (R), no edema noted Leg (L), no edema noted Leg (R), no edema noted Pedal (L), no edema noted Pedal (R), no edema noted Generalized Neurologic: motor weakness Skin: normal pigmentation, warm/dry Juaquin Ramos DO Mar 17, 2018 09:04
--- NOTE | 2018-03-17 10:27 | General Progress Note ---
Assessment/Plan Status: unchanged Assessment/Plan 1. Anemia due to underlying chronic disease. --> Continue to closely monitor. --> Hgb at 10.7, consider anemia workup if there is an acute drop. 2. Leukocytosis, potentially secondary to aspiration pneumonia in the lower lobe quadrant. --> WBC improved. --> Pt is on abx 3. Congestive heart failure. 4. Urinary tract infection, secondary to pneumonia, on antibiotics. --> UA ++ 5. Coronary artery disease. 6. Anoxic brain injury. 7. Respiratory failure, status post tracheostomy. Subjective Date patient seen: Mar 17, 2018 Hematologic/Lymphatic: Reports: anemia Allergies: Coded Allergies: PEANUT (Verified Allergy, Unknown, 09/22/16) All Systems: reviewed and negative except above Subjective No acute events. Pt remains on vent. Vitals are stable. Objective Last 24 Hour Vital Signs Date Time Temp Pulse Resp B/P (MAP) Pulse Ox O2 Delivery O2 Flow Rate FiO2 03/17/18 09:27 75 15 40 03/17/18 08:00 Mechanical Ventilator 03/17/18 07:11 75 13 40 03/17/18 05:01 69 15 40 03/17/18 04:00 73 03/17/18 04:00 96.8 73 19 105/62 (76) 99 96.8 03/17/18 04:00 40 03/17/18 04:00 Mechanical Ventilator 03/17/18 02:36 79 18 40 03/17/18 01:30 71 17 40 03/17/18 00:23 77 16 40 03/17/18 00:00 Mechanical Ventilator 03/17/18 00:00 75 03/17/18 00:00 40 03/17/18 00:00 98.1 73 19 106/52 (70) 99 98.1 03/16/18 22:34 68 17 40 03/16/18 21:09 64 19 40 03/16/18 20:00 63 03/16/18 20:00 Mechanical Ventilator 03/16/18 20:00 96.2 69 15 105/50 (68) 98 96.2 03/16/18 20:00 40 03/16/18 19:17 63 13 40 03/16/18 16:53 73 14 40 03/16/18 16:00 40 03/16/18 16:00 Mechanical Ventilator 03/16/18 16:00 97.9 70 14 96/45 (62) 95 97.9 03/16/18 16:00 70 03/16/18 14:59 69 16 40 03/16/18 13:06 73 16 40 03/16/18 12:00 98.5 70 14 98/56 (70) 95 98.5 03/16/18 12:00 74 03/16/18 12:00 Mechanical Ventilator 03/16/18 12:00 40 03/16/18 11:02 71 13 40 Intake and Output 03/16/18 03/17/18 19:00 07:00 Intake Total 825 ml 795.000 ml Output Total 50 ml 900 ml Balance 775 ml -105.000 ml Intake Free Water 100 ml IV Total 385 ml 495.000 ml Tube Feeding 330 ml 150 ml Other 110 ml 50 ml Output Urine Total 50 ml 900 ml # Voids 2 # Bowel Movements 2 Laboratory Tests 03/17/18 04:00: White Blood Count 5.6, Red Blood Count 3.43L, Hemoglobin 10.4L, Hematocrit 32.5L , Mean Corpuscular Volume 95, Mean Corpuscular Hemoglobin 30.4, Mean Corpuscular Hemoglobin Concent 32.0, Red Cell Distribution Width 15.7H, Platelet Count 191, Mean Platelet Volume 10.3H, Neutrophils (%) (Auto) 55.4, Lymphocytes (%) (Auto) 24.3, Monocytes (%) (Auto) 11.7H, Eosinophils (%) (Auto) 7.7H, Basophils (%) (Auto) 0.9, Sodium Level 136, Potassium Level 3.5, Chloride Level 104, Carbon Dioxide Level 29, Anion Gap 3L, Blood Urea Nitrogen 5L, Creatinine 0.5L, Estimat Glomerular Filtration Rate , Glucose Level 93, Calcium Level 8.8 Height (Feet): 5 Height (Inches): 6.00 Weight (Pounds): 237 General Appearance: no apparent distress EENT: PERRL/EOMI Neck: normal alignment Cardiovascular: normal peripheral pulses Respiratory/Chest: no respiratory distress Abdomen: non tender Luke Hanna MD Mar 17, 2018 10:27
[2018-03-17 12:00] VITALS: BP 101/50
--- NOTE | 2018-03-17 12:22 | Infectious Diseases Prog Note ---
Assessment/Plan Assessment/Plan Assessment: Blood cx CoNS (real vs contaminant) Septic Shock,SP - ?2ry to PNA vs UTI- -CXR: Interstitial opacification/edema and patchy bilateral airspace opacities, right greater than left. Although findings may be related to fluid overload/CHF with a probable baseline of chronic interstitial disease, superimposed pneumonia is not excluded -u/a wbc 5-10, nit neg, leuk +1; ucx NTD -03/13 Bcx 11/05 Staph sp; 03/05 Bcx p -sp cx GNR -2d echo: no vegetations Fever, S leukocytosis; improving Recent HCAP: PsA, P.mirabilis 11/2017, s/p RX -sp cx PsA (S zosyn; R cipro), P. mirabilis (S. Zosyn, Ceftriaxone; R cipro), Group G strep Hx of VRE UTI/bacteriuria Hx of CONS bacteremia (contaminant) History of multiple drug-resistant Klebsiella UTI History of anoxic encephalopathy. sp trach vent and PEG placement Seizure disorder Breast cancer Morbid obesity CHF HTN Diabetes Anemia Plan: -Continue empiric IV Vanco #5 / 7 pending repeat Bcx -Continue empiric Meropenem # 4 (abx d#5 ) pending sputum and urine cultures -03/14 SP Zosyn #2 -11/15 SP IV Zosyn #7, Zyvox #5 -11/11 SP IV Vancomcyin #3 -10/2017 SP Cefepime #7 -f/u cx -Monitor CBC/CMP, temperatures -Cdiff if diarrhea Subjective Allergies: Coded Allergies: PEANUT (Verified Allergy, Unknown, 09/22/16) Subjective afebrile Objective Vital Signs Last 24 Hour Vital Signs Date Time Temp Pulse Resp B/P (MAP) Pulse Ox O2 Delivery O2 Flow Rate FiO2 03/17/18 12:16 99.0 03/17/18 11:33 75 14 40 03/17/18 09:27 75 15 40 03/17/18 08:00 98.2 79 16 105/51 (69) 93 98.2 03/17/18 08:00 40 03/17/18 08:00 77 03/17/18 08:00 Mechanical Ventilator 03/17/18 07:11 75 13 40 03/17/18 05:01 69 15 40 03/17/18 04:00 73 03/17/18 04:00 96.8 73 19 105/62 (76) 99 96.8 03/17/18 04:00 40 03/17/18 04:00 Mechanical Ventilator 03/17/18 02:36 79 18 40 03/17/18 01:30 71 17 40 03/17/18 00:23 77 16 40 03/17/18 00:00 Mechanical Ventilator 03/17/18 00:00 75 03/17/18 00:00 40 03/17/18 00:00 98.1 73 19 106/52 (70) 99 98.1 03/16/18 22:34 68 17 40 03/16/18 21:09 64 19 40 03/16/18 20:00 63 03/16/18 20:00 Mechanical Ventilator 03/16/18 20:00 96.2 69 15 105/50 (68) 98 96.2 03/16/18 20:00 40 03/16/18 19:17 63 13 40 03/16/18 16:53 73 14 40 03/16/18 16:00 40 03/16/18 16:00 Mechanical Ventilator 03/16/18 16:00 97.9 70 14 96/45 (62) 95 97.9 03/16/18 16:00 70 03/16/18 14:59 69 16 40 03/16/18 13:06 73 16 40 Height (Feet): 5 Height (Inches): 6.00 Weight (Pounds): 237 HEENT: anicteric Respiratory/Chest: respiratory distress Cardiovascular: regularly irregular Microbiology Date/Time Source Procedure Growth Status 03/15/18 12:55 Blood Blood Culture - Preliminary NO GROWTH AFTER 24 HOURS Resulted 03/15/18 12:40 Blood Blood Culture - Preliminary NO GROWTH AFTER 24 HOURS Resulted Laboratory Tests Test 03/17/18 04:00 White Blood Count 5.6 K/UL (4.8-10.8) Red Blood Count 3.43 M/UL (4.20-5.40) L Hemoglobin 10.4 G/DL (12.0-16.0) L Hematocrit 32.5 % (37.0-47.0) L Mean Corpuscular Volume 95 FL (80-99) Mean Corpuscular Hemoglobin 30.4 PG (27.0-31.0) Mean Corpuscular Hemoglobin Concent 32.0 G/DL (32.0-36.0) Red Cell Distribution Width 15.7 % (11.6-14.8) H Platelet Count 191 K/UL (150-450) Mean Platelet Volume 10.3 FL (6.5-10.1) H Neutrophils (%) (Auto) 55.4 % (45.0-75.0) Lymphocytes (%) (Auto) 24.3 % (20.0-45.0) Monocytes (%) (Auto) 11.7 % (1.0-10.0) H Eosinophils (%) (Auto) 7.7 % (0.0-3.0) H Basophils (%) (Auto) 0.9 % (0.0-2.0) Sodium Level 136 MMOL/L (136-145) Potassium Level 3.5 MMOL/L (3.5-5.1) Chloride Level 104 MMOL/L (98-107) Carbon Dioxide Level 29 MMOL/L (21-32) Anion Gap 3 mmol/L (5-15) L Blood Urea Nitrogen 5 mg/dL (7-18) L Creatinine 0.5 MG/DL (0.55-1.30) L Estimat Glomerular Filtration Rate mL/min (>60) Glucose Level 93 MG/DL (74-106) Calcium Level 8.8 MG/DL (8.5-10.1) Current Medications Medications (Trade) Dose Ordered Sig/Boubacar Route PRN Reason Start Time Stop Time Status Last Admin Dose Admin Acetaminophen (Tylenol) 650 mg Q4H PRN ORAL FEVER 03/16/18 09:00 04/12/18 20:59 03/17/18 12:16 Albuterol/ Ipratropium (Albuterol/ Ipratropium) 3 ml Q4H PRN HHN Shortness of Breath 03/16/18 09:00 03/18/18 20:59 Chlorhexidine Gluconate ([place]-Hex 2%) 1 applic DAILY@1999 TOPIC 03/16/18 20:00 04/15/18 19:59 Dextrose (Dextrose 50%) 25 ml STAT PRN IV Hypoglycemia 03/16/18 21:00 04/12/18 20:59 Dextrose (Dextrose 50%) 50 ml STAT PRN IV Hypoglycemia 03/16/18 21:00 04/12/18 20:59 Heparin Sodium (Porcine) (Heparin 5000 units/ml) 5,000 units EVERY 12 HOURS SUBQ 03/16/18 09:00 04/12/18 20:59 03/17/18 08:44 Levetiracetam (Keppra) 1,500 mg DAILY GT 03/16/18 09:00 04/13/18 08:59 03/17/18 08:40 Levothyroxine Sodium (Synthroid) 50 mcg DAILY@0630 GT 03/17/18 06:30 04/13/18 06:29 03/17/18 06:03 Lorazepam (Ativan 2mg/ml 1ml) 2 mg Q2H PRN IV For Anxiety 03/16/18 09:00 03/20/18 20:59 Meropenem 1 gm/ Sodium Chloride 55 ml @ 110 mls/hr Q8HR IVPB 03/16/18 08:00 03/21/18 07:59 03/17/18 12:07 Midodrine (Pro-Amatine) 5 mg THREE TIMES A DAY ORAL 03/16/18 09:00 04/14/18 17:59 03/17/18 12:07 Morphine Sulfate (Morphine Sulfate) 4 mg Q4H PRN IVP Severe Pain (Pain Scale 7-10) 03/16/18 09:00 03/20/18 20:59 Ondansetron HCl (Zofran) 4 mg Q6H PRN IVP Nausea & Vomiting 03/16/18 09:00 04/12/18 20:59 Pantoprazole (Protonix) 40 mg DAILY IV 03/16/18 09:00 04/13/18 08:59 03/17/18 08:41 Phenytoin (Dilantin) 200 mg Q8HR ORAL 03/16/18 08:00 04/15/18 07:59 03/17/18 12:08 Polyethylene Glycol (Miralax) 17 gm DAILYPRN PRN ORAL Constipation 03/16/18 21:00 04/12/18 20:59 Vancomycin HCl (Vanco rx to dose) 1 ea DAILY PRN MISC per rx protocol 03/16/18 09:00 04/12/18 21:14 Vancomycin HCl 1 gm/Dextrose 275 ml @ 183.708 mls/hr Q12H IVPB 03/16/18 09:00 03/19/18 08:59 03/17/18 08:39 Delmer Madera MD Mar 17, 2018 12:22
[2018-03-17] MEDS ORDERED: Tubing IV Secondary IV ONE (15:13)
[2018-03-17] MEDS ORDERED: Sterile Water Irrig 1000ml IRRIG ONE (15:13)
[2018-03-17] MEDS ORDERED: NS 275ml ONE ×2 (15:13→15:51)
[2018-03-17 16:00] VITALS: BP 96/47
[2018-03-17 20:00] VITALS: BP 132/60
[2018-03-17] MEDS: Dyna-Hex 2% Top Sol 2oz TOPIC SCH (21:19)
[2018-03-18] VITALS: BP 120/60
[2018-03-18 04:00] VITALS: BP 112/68
[2018-03-18 06:00] LABS: BASOPHILS % (AUTO) 1.3 % (0.0-2.0); EOSINOPHILS % (AUTO) 9.1 % (0.0-3.0); HEMATOCRIT 32.8 % (37.0-47.0); HEMOGLOBIN 10.6 G/DL (12.0-16.0); LYMPHOCYTES % (AUTO) 23.4 % (20.0-45.0); MEAN CORPUSCULAR VOLUME 96 FL (80-99); MONOCYTES % (AUTO) 12.3 % (1.0-10.0); NEUTROPHILS % (AUTO) 53.9 % (45.0-75.0); PLATELET COUNT 185 K/UL (150-450); RED BLOOD COUNT 3.43 M/UL (4.20-5.40); RED CELL DISTRIBUTION WIDTH 15.3 % (11.6-14.8); WHITE BLOOD COUNT 5.3 K/UL (4.8-10.8)
[2018-03-18] MEDS: Meropenem 1 GM in NS 55 ML IVPB SCH ×3 (06:04→21:49)
[2018-03-18] MEDS: Phenytoin 100mg cap ORAL SCH ×3 (06:04→21:49)
[2018-03-18 06:45] LABS: ANION GAP 5 mmol/L (5-15); BLOOD UREA NITROGEN 5 mg/dL (7-18); CALCIUM 8.8 MG/DL (8.5-10.1); CARBON DIOXIDE 29 MMOL/L (21-32); CHLORIDE 102 MMOL/L (98-107); CREATININE 0.5 MG/DL (0.55-1.30); POTASSIUM 3.5 MMOL/L (3.5-5.1); SODIUM 136 MMOL/L (136-145)
[2018-03-18 08:00] VITALS: BP 120/70
--- NOTE | 2018-03-18 08:00 | General Progress Note ---
Assessment/Plan Problem List: (1) UTI (urinary tract infection) ICD Codes: N39.0 - Urinary tract infection, site not specified SNOMED: 24786309 (2) Hypotension ICD Codes: I95.9 - Hypotension, unspecified SNOMED: 42730621 (3) Chronic respiratory failure ICD Codes: J96.10 - Chronic respiratory failure, unspecified whether with hypoxia or hypercapnia SNOMED: 71458086 (4) CHF (congestive heart failure) ICD Codes: I50.9 - Heart failure, unspecified SNOMED: 84468930 (5) Seizure ICD Codes: R56.9 - Unspecified convulsions SNOMED: 57109304 (6) Hypothyroidism ICD Codes: E03.9 - Hypothyroidism, unspecified SNOMED: 86813974 Status: stable, progressing Assessment/Plan vent abx cbc bmp am Subjective Constitutional: Reports: weakness Allergies: Coded Allergies: PEANUT (Verified Allergy, Unknown, 09/22/16) All Systems: reviewed and negative except above Subjective trach vent altered calm Objective Last 24 Hour Vital Signs Date Time Temp Pulse Resp B/P (MAP) Pulse Ox O2 Delivery O2 Flow Rate FiO2 03/18/18 06:57 67 12 40 03/18/18 05:10 76 12 40 03/18/18 04:00 40 03/18/18 04:00 70 03/18/18 04:00 Mechanical Ventilator 03/18/18 04:00 97.4 75 16 112/68 (83) 98 97.4 03/18/18 03:15 71 13 40 03/18/18 01:18 94 18 40 03/18/18 00:00 98.1 82 22 120/60 (80) 96 98.1 03/18/18 00:00 40 03/18/18 00:00 Mechanical Ventilator 03/18/18 00:00 71 03/17/18 23:20 76 12 40 03/17/18 21:30 73 13 40 03/17/18 20:00 40 03/17/18 20:00 Mechanical Ventilator 03/17/18 20:00 97.9 76 24 132/60 (84) 100 97.9 03/17/18 20:00 67 03/17/18 19:20 66 13 40 03/17/18 16:50 68 12 40 03/17/18 16:00 Mechanical Ventilator 03/17/18 16:00 71 03/17/18 16:00 97.9 67 12 96/47 (63) 95 97.9 03/17/18 16:00 40 03/17/18 15:34 71 14 40 03/17/18 13:15 98.0 03/17/18 13:05 69 14 40 03/17/18 12:16 99.0 03/17/18 12:00 77 03/17/18 12:00 40 03/17/18 12:00 Mechanical Ventilator 03/17/18 12:00 99.0 78 20 101/50 (67) 92 99.0 78 03/17/18 11:33 75 14 40 03/17/18 09:27 75 15 40 03/17/18 08:00 98.2 79 16 105/51 (69) 93 98.2 03/17/18 08:00 40 03/17/18 08:00 77 03/17/18 08:00 Mechanical Ventilator Intake and Output 03/17/18 03/18/18 19:00 07:00 Intake Total 747.416 ml 595.000 ml Output Total 1050 ml Balance 747.416 ml -455.000 ml Intake Free Water 60 ml IV Total 477.416 ml 385.000 ml Tube Feeding 210 ml 210 ml Output Urine Total 1050 ml Laboratory Tests 03/18/18 03:00: White Blood Count 5.3, Red Blood Count 3.43L, Hemoglobin 10.6L, Hematocrit 32.8L , Mean Corpuscular Volume 96, Mean Corpuscular Hemoglobin 30.8, Mean Corpuscular Hemoglobin Concent 32.3, Red Cell Distribution Width 15.3H, Platelet Count 185, Mean Platelet Volume 9.0, Neutrophils (%) (Auto) 53.9, Lymphocytes (%) (Auto) 23.4, Monocytes (%) (Auto) 12.3H, Eosinophils (%) (Auto) 9.1H, Basophils (%) (Auto) 1.3, Sodium Level 136, Potassium Level 3.5, Chloride Level 102, Carbon Dioxide Level 29, Anion Gap 5, Blood Urea Nitrogen 5L, Creatinine 0.5L, Estimat Glomerular Filtration Rate , Glucose Level 84, Calcium Level 8.8 Height (Feet): 5 Height (Inches): 6.00 Weight (Pounds): 235 General Appearance: lethargic EENT: normal ENT inspection Neck: normal alignment Cardiovascular: normal peripheral pulses, normal rate, regular rhythm Respiratory/Chest: chest wall non-tender, lungs clear, normal breath sounds Abdomen: normal bowel sounds, non tender, soft Extremities: normal inspection Edema: no edema noted Arm (L), no edema noted Arm (R), no edema noted Leg (L), no edema noted Leg (R), no edema noted Pedal (L), no edema noted Pedal (R), no edema noted Generalized Neurologic: motor weakness Skin: normal pigmentation, warm/dry Juaquin Ramos DO Mar 18, 2018 08:00
[2018-03-18] MEDS: levETIRAcetam 500mg/5ml Liquid GT SCH (08:41)
[2018-03-18] MEDS: Pantoprazole Inj IV SCH (08:41)
[2018-03-18] MEDS: Heparin 5000 units/ml inj SUBQ SCH ×2 (08:43→20:52)
[2018-03-18] MEDS: Vancomycin 1250mg/D5W 250ml IVPB SCH ×2 (10:44→22:42)
[2018-03-18 12:00] VITALS: BP 108/53
--- NOTE | 2018-03-18 13:17 | Cardiology Report ---
APPROVED REPORT EXAM: Two-dimensional and M-mode echocardiogram with Doppler and color Doppler. INDICATION Vegetation M-Mode DIMENSIONS IVSd1.3 (0.7-1.1cm)Left Atrium (MM)3.3 (1.6-4.0cm) LVDd4.7 (3.5-5.6cm)Aortic Root2.4 (2.0-3.7cm) PWd0.9 (0.7-1.1cm)Aortic Cusp Exc.1.8 (1.5-2.0cm) LVDs3.1 (2.5-4.0cm) PWs1.4 cm Technically difficult study due to patient on ventilator. Study quality precludes accurate assessment of regional wall motion. Normal left ventricular chamber size, systolic function and wall motion. Left ventricular ejection fraction estimated to be 60 %. Mild left ventricular hypertrophy. Anterior Echo-free space, may be due to pericardial fat or effusion. All other cardiac chamber sizes are within normal limits. Focal aortic valve sclerosis with adequate cusp excursion. Mildly thickened mitral valve leaflets with normal excursion. Mild mitral annulus and aortic root calcification. Normal pulmonic valve structure. Normal tricuspid valve structure. Subcostal views not obtainable due to G-tube. A color flow and spectral Doppler study was performed and revealed: No aortic insufficiency. Trace mitral regurgitation. reduced left ventricular relaxation c/w impaired relaxation diastolic dysfunction. Mild tricuspid regurgitation. Tricuspid systolic velocities suggests peak right ventricular systolic pressure of 29 mmHg. Trace pulmonic regurgitation present.
[2018-03-18 16:00] VITALS: BP 110/58
[2018-03-18 20:00] VITALS: BP 116/56
[2018-03-18] MEDS: Dyna-Hex 2% Top Sol 2oz TOPIC SCH (20:13)
[2018-03-18] MEDS ORDERED: Colistin for inhalation INH SCH (22:00)
[2018-03-19] VITALS: BP 126/60
[2018-03-19 04:00] VITALS: BP 117/58
[2018-03-19 04:58] LABS: BASOPHILS % (AUTO) 1.3 % (0.0-2.0); EOSINOPHILS % (AUTO) 2.1 % (0.0-3.0); HEMATOCRIT 32.4 % (37.0-47.0); MEAN CORPUSCULAR VOLUME 94 FL (80-99); NEUTROPHILS % (AUTO) 64.5 % (45.0-75.0); PLATELET COUNT 205 K/UL (150-450); RED BLOOD COUNT 3.45 M/UL (4.20-5.40); RED CELL DISTRIBUTION WIDTH 15.3 % (11.6-14.8); WHITE BLOOD COUNT 7.5 K/UL (4.8-10.8)
[2018-03-19 05:10] LABS: ANION GAP 4 mmol/L (5-15); BLOOD UREA NITROGEN 5 mg/dL (7-18); CALCIUM 8.8 MG/DL (8.5-10.1); CARBON DIOXIDE 32 MMOL/L (21-32); CHLORIDE 102 MMOL/L (98-107); CREATININE 0.5 MG/DL (0.55-1.30); POTASSIUM 3.1 MMOL/L (3.5-5.1); SODIUM 137 MMOL/L (136-145)
[2018-03-19] MEDS: Meropenem 1 GM in NS 55 ML IVPB SCH (05:32)
[2018-03-19] MEDS: Phenytoin 100mg cap ORAL SCH ×2 (05:34→14:00)
[2018-03-19 08:00] VITALS: BP 123/55
[2018-03-19] MEDS: levETIRAcetam 500mg/5ml Liquid GT SCH (09:14)
[2018-03-19] MEDS: Pantoprazole Inj IV SCH (09:14)
[2018-03-19] MEDS: Heparin 5000 units/ml inj SUBQ SCH (09:16)
--- NOTE | 2018-03-19 10:28 | Pulmonolgy Critical Care Note ---
Critical Care - Asmt/Plan Problems: (1) Acute and chronic respiratory failure (2) Sepsis (3) Aspiration pneumonia (4) Anoxic encephalopathy (5) Seizure disorder (6) Functional paraplegia (7) Dysphagia s/p PEG Assessment/Plan: dc to halfway, once the ID decides about what abx and for how long. 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 Discussed with: nurses, consultants, case therapisttechnical account manager - Objective Last 24 Hour Vital Signs Date Time Temp Pulse Resp B/P (MAP) Pulse Ox O2 Delivery O2 Flow Rate FiO2 03/19/18 07:56 80 13 40 03/19/18 04:52 87 22 40 03/19/18 04:00 40 03/19/18 04:00 98.1 86 17 117/58 (77) 96 98.1 03/19/18 04:00 Mechanical Ventilator 03/19/18 03:59 86 03/19/18 03:10 90 20 40 03/19/18 01:30 104 20 40 03/19/18 00:00 40 03/19/18 00:00 98.6 88 15 126/60 (82) 96 98.6 03/19/18 00:00 Mechanical Ventilator 03/18/18 23:36 85 03/18/18 23:30 87 14 40 03/18/18 20:48 95 16 40 03/18/18 20:41 85 03/18/18 20:00 98.1 78 14 116/56 (76) 96 98.1 03/18/18 20:00 40 03/18/18 20:00 Mechanical Ventilator 03/18/18 19:30 105 26 40 03/18/18 17:54 79 16 Mechanical Ventilator 40 03/18/18 17:02 78 21 40 03/18/18 16:00 40 03/18/18 16:00 98.4 73 14 110/58 (75) 95 98.4 03/18/18 16:00 Mechanical Ventilator 03/18/18 15:52 70 13 40 03/18/18 15:49 71 03/18/18 12:40 67 12 40 03/18/18 12:00 40 03/18/18 12:00 98.2 72 17 108/53 (71) 97 98.2 03/18/18 12:00 Mechanical Ventilator 03/18/18 12:00 62 03/18/18 10:49 71 14 40 Status: obtunded Condition: critical HEENT: atraumatic Neck: full ROM Lungs: clear Heart: HR/BP stable Abdomen: soft, active bowel sounds Extremities: no C/C/E, edema Decubiti: location Critical Care - Subjective Condition: critical EKG Rhythm: Sinus Rhythm FI02: 40 Vent Support Breath Rate: 12 Vent Support Mode: AC Vent Tidal Volume: 600 Sputum Amount: Small PEEP: 5.0 PIP: 31 Tube Feeding Amount: 0 I&O: Intake and Output 03/18/18 03/19/18 19:00 07:00 Intake Total 500.000 ml 740 ml Output Total 800 ml 380 ml Balance -300.000 ml 360 ml IV Total 250.000 ml 360 ml Tube Feeding 210 ml 270 ml Other 40 ml 110 ml Output Urine Total 800 ml 380 ml # Bowel Movements 2 CXR: improving Labs: Laboratory Tests Test 03/19/18 04:00 White Blood Count 7.5 K/UL (4.8-10.8) Red Blood Count 3.45 M/UL (4.20-5.40) L Hemoglobin 11.0 G/DL (12.0-16.0) L Hematocrit 32.4 % (37.0-47.0) L Mean Corpuscular Volume 94 FL (80-99) Mean Corpuscular Hemoglobin 31.8 PG (27.0-31.0) H Mean Corpuscular Hemoglobin Concent 33.8 G/DL (32.0-36.0) Red Cell Distribution Width 15.3 % (11.6-14.8) H Platelet Count 205 K/UL (150-450) Mean Platelet Volume 8.9 FL (6.5-10.1) Neutrophils (%) (Auto) 64.5 % (45.0-75.0) Lymphocytes (%) (Auto) 19.0 % (20.0-45.0) L Monocytes (%) (Auto) 13.0 % (1.0-10.0) H Eosinophils (%) (Auto) 2.1 % (0.0-3.0) Basophils (%) (Auto) 1.3 % (0.0-2.0) Sodium Level 137 MMOL/L (136-145) Potassium Level 3.1 MMOL/L (3.5-5.1) L Chloride Level 102 MMOL/L (98-107) Carbon Dioxide Level 32 MMOL/L (21-32) Anion Gap 4 mmol/L (5-15) L Blood Urea Nitrogen 5 mg/dL (7-18) L Creatinine 0.5 MG/DL (0.55-1.30) L Estimat Glomerular Filtration Rate mL/min (>60) Glucose Level 125 MG/DL (74-106) H Calcium Level 8.8 MG/DL (8.5-10.1) Savi Rodriguez MD Mar 19, 2018 10:28
[2018-03-19] MEDS: Vancomycin 1250mg/D5W 250ml IVPB SCH (10:59)
--- NOTE | 2018-03-19 11:21 | General Progress Note ---
Assessment/Plan Problem List: (1) UTI (urinary tract infection) ICD Codes: N39.0 - Urinary tract infection, site not specified SNOMED: 68693480 (2) Hypotension ICD Codes: I95.9 - Hypotension, unspecified SNOMED: 54360053 (3) Chronic respiratory failure ICD Codes: J96.10 - Chronic respiratory failure, unspecified whether with hypoxia or hypercapnia SNOMED: 12765675 (4) CHF (congestive heart failure) ICD Codes: I50.9 - Heart failure, unspecified SNOMED: 29353253 (5) Seizure ICD Codes: R56.9 - Unspecified convulsions SNOMED: 39907032 (6) Hypothyroidism ICD Codes: E03.9 - Hypothyroidism, unspecified SNOMED: 24002872 Status: unchanged Assessment/Plan vent abx cbc bmp am Subjective Constitutional: Reports: weakness Allergies: Coded Allergies: PEANUT (Verified Allergy, Unknown, 09/22/16) All Systems: reviewed and negative except above Subjective trach vent altered calm Objective Last 24 Hour Vital Signs Date Time Temp Pulse Resp B/P (MAP) Pulse Ox O2 Delivery O2 Flow Rate FiO2 03/19/18 11:05 75 14 40 03/19/18 09:29 75 16 40 03/19/18 08:15 Mechanical Ventilator 03/19/18 07:56 80 13 40 03/19/18 04:52 87 22 40 03/19/18 04:00 40 03/19/18 04:00 98.1 86 17 117/58 (77) 96 98.1 03/19/18 04:00 Mechanical Ventilator 03/19/18 03:59 86 03/19/18 03:10 90 20 40 03/19/18 01:30 104 20 40 03/19/18 00:00 40 03/19/18 00:00 98.6 88 15 126/60 (82) 96 98.6 03/19/18 00:00 Mechanical Ventilator 03/18/18 23:36 85 03/18/18 23:30 87 14 40 03/18/18 20:48 95 16 40 03/18/18 20:41 85 03/18/18 20:00 98.1 78 14 116/56 (76) 96 98.1 03/18/18 20:00 40 03/18/18 20:00 Mechanical Ventilator 03/18/18 19:30 105 26 40 03/18/18 17:54 79 16 Mechanical Ventilator 40 03/18/18 17:02 78 21 40 03/18/18 16:00 40 03/18/18 16:00 98.4 73 14 110/58 (75) 95 98.4 03/18/18 16:00 Mechanical Ventilator 03/18/18 15:52 70 13 40 03/18/18 15:49 71 03/18/18 12:40 67 12 40 03/18/18 12:00 40 03/18/18 12:00 98.2 72 17 108/53 (71) 97 98.2 03/18/18 12:00 Mechanical Ventilator 03/18/18 12:00 62 Intake and Output 03/18/18 03/19/18 19:00 07:00 Intake Total 500.000 ml 740 ml Output Total 800 ml 380 ml Balance -300.000 ml 360 ml IV Total 250.000 ml 360 ml Tube Feeding 210 ml 270 ml Other 40 ml 110 ml Output Urine Total 800 ml 380 ml # Bowel Movements 2 Laboratory Tests 03/19/18 04:00: White Blood Count 7.5, Red Blood Count 3.45L, Hemoglobin 11.0L, Hematocrit 32.4L , Mean Corpuscular Volume 94, Mean Corpuscular Hemoglobin 31.8H, Mean Corpuscular Hemoglobin Concent 33.8, Red Cell Distribution Width 15.3H, Platelet Count 205, Mean Platelet Volume 8.9, Neutrophils (%) (Auto) 64.5, Lymphocytes (%) (Auto) 19.0L, Monocytes (%) (Auto) 13.0H, Eosinophils (%) (Auto ) 2.1, Basophils (%) (Auto) 1.3, Sodium Level 137, Potassium Level 3.1L, Chloride Level 102, Carbon Dioxide Level 32, Anion Gap 4L, Blood Urea Nitrogen 5L, Creatinine 0.5L, Estimat Glomerular Filtration Rate , Glucose Level 125H, Calcium Level 8.8 Height (Feet): 5 Height (Inches): 6.00 Weight (Pounds): 220 General Appearance: lethargic EENT: normal ENT inspection Neck: normal alignment Cardiovascular: normal peripheral pulses, normal rate, regular rhythm Respiratory/Chest: chest wall non-tender, lungs clear, normal breath sounds Abdomen: normal bowel sounds, non tender, soft Extremities: normal inspection Edema: no edema noted Arm (L), no edema noted Arm (R), no edema noted Leg (L), no edema noted Leg (R), no edema noted Pedal (L), no edema noted Pedal (R), no edema noted Generalized Neurologic: motor weakness Skin: normal pigmentation, warm/dry Juaquin Ramos DO Mar 19, 2018 11:21
--- NOTE | 2018-03-19 11:28 | General Progress Note ---
Assessment/Plan Status: stable Assessment/Plan 1. Anemia due to underlying chronic disease. --> Continue to closely monitor. --> Hgb at 10.7, consider anemia workup if there is an acute drop. 2. Leukocytosis, potentially secondary to aspiration pneumonia in the lower lobe quadrant. --> WBC improved. --> Pt is on abx 3. Congestive heart failure. 4. Urinary tract infection, secondary to pneumonia, on antibiotics. --> UA ++ 5. Coronary artery disease. 6. Anoxic brain injury. 7. Respiratory failure, status post tracheostomy. Subjective Date patient seen: Mar 18, 2018 ROS Limited/Unobtainable: Yes Hematologic/Lymphatic: Reports: anemia Allergies: Coded Allergies: PEANUT (Verified Allergy, Unknown, 09/22/16) All Systems: reviewed and negative except above Subjective No acute events. Pt remains on vent. Vitals are stable. No resp distress. Objective Last 24 Hour Vital Signs Date Time Temp Pulse Resp B/P (MAP) Pulse Ox O2 Delivery O2 Flow Rate FiO2 03/19/18 11:05 75 14 40 03/19/18 09:29 75 16 40 03/19/18 08:15 Mechanical Ventilator 03/19/18 08:00 40 03/19/18 08:00 98.8 77 18 123/55 (77) 99 98.8 03/19/18 07:56 80 13 40 03/19/18 07:47 79 03/19/18 04:52 87 22 40 03/19/18 04:00 40 03/19/18 04:00 98.1 86 17 117/58 (77) 96 98.1 03/19/18 04:00 Mechanical Ventilator 03/19/18 03:59 86 03/19/18 03:10 90 20 40 03/19/18 01:30 104 20 40 03/19/18 00:00 40 03/19/18 00:00 98.6 88 15 126/60 (82) 96 98.6 03/19/18 00:00 Mechanical Ventilator 03/18/18 23:36 85 03/18/18 23:30 87 14 40 03/18/18 20:48 95 16 40 03/18/18 20:41 85 03/18/18 20:00 98.1 78 14 116/56 (76) 96 98.1 03/18/18 20:00 40 03/18/18 20:00 Mechanical Ventilator 03/18/18 19:30 105 26 40 03/18/18 17:54 79 16 Mechanical Ventilator 40 03/18/18 17:02 78 21 40 03/18/18 16:00 40 03/18/18 16:00 98.4 73 14 110/58 (75) 95 98.4 03/18/18 16:00 Mechanical Ventilator 03/18/18 15:52 70 13 40 03/18/18 15:49 71 03/18/18 12:40 67 12 40 03/18/18 12:00 40 03/18/18 12:00 98.2 72 17 108/53 (71) 97 98.2 03/18/18 12:00 Mechanical Ventilator 03/18/18 12:00 62 Intake and Output 03/18/18 03/19/18 19:00 07:00 Intake Total 500.000 ml 740 ml Output Total 800 ml 380 ml Balance -300.000 ml 360 ml IV Total 250.000 ml 360 ml Tube Feeding 210 ml 270 ml Other 40 ml 110 ml Output Urine Total 800 ml 380 ml # Bowel Movements 2 Laboratory Tests 03/19/18 04:00: White Blood Count 7.5, Red Blood Count 3.45L, Hemoglobin 11.0L, Hematocrit 32.4L , Mean Corpuscular Volume 94, Mean Corpuscular Hemoglobin 31.8H, Mean Corpuscular Hemoglobin Concent 33.8, Red Cell Distribution Width 15.3H, Platelet Count 205, Mean Platelet Volume 8.9, Neutrophils (%) (Auto) 64.5, Lymphocytes (%) (Auto) 19.0L, Monocytes (%) (Auto) 13.0H, Eosinophils (%) (Auto ) 2.1, Basophils (%) (Auto) 1.3, Sodium Level 137, Potassium Level 3.1L, Chloride Level 102, Carbon Dioxide Level 32, Anion Gap 4L, Blood Urea Nitrogen 5L, Creatinine 0.5L, Estimat Glomerular Filtration Rate , Glucose Level 125H, Calcium Level 8.8 Height (Feet): 5 Height (Inches): 6.00 Weight (Pounds): 220 General Appearance: no apparent distress EENT: PERRL/EOMI Neck: normal alignment Cardiovascular: normal peripheral pulses Respiratory/Chest: no respiratory distress Abdomen: no organomegaly Luke Hanna MD Mar 19, 2018 11:28
--- NOTE | 2018-03-19 11:31 | General Progress Note ---
Assessment/Plan Status: stable Assessment/Plan 1. Anemia due to underlying chronic disease. --> Continue to closely monitor. --> Hgb at 10.7, consider anemia workup if there is an acute drop. 2. Leukocytosis, potentially secondary to aspiration pneumonia in the lower lobe quadrant. --> WBC improved. --> Pt is on abx 3. Congestive heart failure. 4. Urinary tract infection, secondary to pneumonia, on antibiotics. --> UA ++ 5. Coronary artery disease. 6. Anoxic brain injury. 7. Respiratory failure, status post tracheostomy. --> Remains on vent. Subjective Date patient seen: Mar 19, 2018 ROS Limited/Unobtainable: Yes Hematologic/Lymphatic: Reports: anemia Allergies: Coded Allergies: PEANUT (Verified Allergy, Unknown, 09/22/16) All Systems: reviewed and negative except above Subjective No acute events. Vitals are stable. No resp distress. Objective Last 24 Hour Vital Signs Date Time Temp Pulse Resp B/P (MAP) Pulse Ox O2 Delivery O2 Flow Rate FiO2 03/19/18 11:05 75 14 40 03/19/18 09:29 75 16 40 03/19/18 08:15 Mechanical Ventilator 03/19/18 08:00 40 03/19/18 08:00 98.8 77 18 123/55 (77) 99 98.8 03/19/18 07:56 80 13 40 03/19/18 07:47 79 03/19/18 04:52 87 22 40 03/19/18 04:00 40 03/19/18 04:00 98.1 86 17 117/58 (77) 96 98.1 03/19/18 04:00 Mechanical Ventilator 03/19/18 03:59 86 03/19/18 03:10 90 20 40 03/19/18 01:30 104 20 40 03/19/18 00:00 40 03/19/18 00:00 98.6 88 15 126/60 (82) 96 98.6 03/19/18 00:00 Mechanical Ventilator 03/18/18 23:36 85 03/18/18 23:30 87 14 40 03/18/18 20:48 95 16 40 03/18/18 20:41 85 03/18/18 20:00 98.1 78 14 116/56 (76) 96 98.1 03/18/18 20:00 40 03/18/18 20:00 Mechanical Ventilator 03/18/18 19:30 105 26 40 03/18/18 17:54 79 16 Mechanical Ventilator 40 03/18/18 17:02 78 21 40 03/18/18 16:00 40 03/18/18 16:00 98.4 73 14 110/58 (75) 95 98.4 03/18/18 16:00 Mechanical Ventilator 03/18/18 15:52 70 13 40 03/18/18 15:49 71 03/18/18 12:40 67 12 40 03/18/18 12:00 40 03/18/18 12:00 98.2 72 17 108/53 (71) 97 98.2 03/18/18 12:00 Mechanical Ventilator 03/18/18 12:00 62 Intake and Output 03/18/18 03/19/18 19:00 07:00 Intake Total 500.000 ml 740 ml Output Total 800 ml 380 ml Balance -300.000 ml 360 ml IV Total 250.000 ml 360 ml Tube Feeding 210 ml 270 ml Other 40 ml 110 ml Output Urine Total 800 ml 380 ml # Bowel Movements 2 Laboratory Tests 03/19/18 04:00: White Blood Count 7.5, Red Blood Count 3.45L, Hemoglobin 11.0L, Hematocrit 32.4L , Mean Corpuscular Volume 94, Mean Corpuscular Hemoglobin 31.8H, Mean Corpuscular Hemoglobin Concent 33.8, Red Cell Distribution Width 15.3H, Platelet Count 205, Mean Platelet Volume 8.9, Neutrophils (%) (Auto) 64.5, Lymphocytes (%) (Auto) 19.0L, Monocytes (%) (Auto) 13.0H, Eosinophils (%) (Auto ) 2.1, Basophils (%) (Auto) 1.3, Sodium Level 137, Potassium Level 3.1L, Chloride Level 102, Carbon Dioxide Level 32, Anion Gap 4L, Blood Urea Nitrogen 5L, Creatinine 0.5L, Estimat Glomerular Filtration Rate , Glucose Level 125H, Calcium Level 8.8 Height (Feet): 5 Height (Inches): 6.00 Weight (Pounds): 220 General Appearance: no apparent distress EENT: PERRL/EOMI Neck: normal alignment Cardiovascular: normal peripheral pulses Respiratory/Chest: no respiratory distress Abdomen: no organomegaly Luke Hanna MD Mar 19, 2018 11:31
--- NOTE | 2018-03-19 11:39 | Infectious Diseases Prog Note ---
Assessment/Plan Assessment/Plan Assessment: Septic Shock,SP - likely 2ry to PNA- improved with Meropenem -CXR: Interstitial opacification/edema and patchy bilateral airspace opacities, right greater than left. Although findings may be related to fluid overload/CHF with a probable baseline of chronic interstitial disease, superimposed pneumonia is not excluded -u/a wbc 5-10, nit neg, leuk +1; ucx Neg -03/13 Bcx 11/05 Staph epi; 03/15 Bcx NTD -sp cx MDR ABC (S Tigeycline, colistin and Polymixin B), PsA (R cipro/levo, otherise S) -2d echo: no vegetations Blood cx CoNS (likely contaminant) Fever, SP leukocytosis; SP Recent HCAP: PsA, P.mirabilis 11/2017, s/p RX -sp cx PsA (S zosyn; R cipro), P. mirabilis (S. Zosyn, Ceftriaxone; R cipro), Group G strep Hx of VRE UTI/bacteriuria Hx of CONS bacteremia (contaminant) History of multiple drug-resistant Klebsiella UTI History of anoxic encephalopathy. sp trach vent and PEG placement Seizure disorder Breast cancer Morbid obesity CHF HTN Diabetes Anemia Plan: -Continue empiric IV Vanco #7 / -Switch Meropenem # 6 (abx d#03/10 ) to Cefepime and continue INH Colistin #2 -if worsenign WBC, fever, CXR and/or O2 requiremetns will add TIgecycline to cover MDR ABC in sputum -03/14 SP Zosyn #2 -11/15 SP IV Zosyn #7, Zyvox #5 -11/11 SP IV Vancomcyin #3 -10/2017 SP Cefepime #7 -f/u cx -Monitor CBC/CMP, temperatures -Cdiff if diarrhea Subjective Allergies: Coded Allergies: PEANUT (Verified Allergy, Unknown, 09/22/16) Subjective afebrile in ~72 hrs leukocytosis resolved repeat Bcx p transferred out of ICU to [facility] Objective Vital Signs Last 24 Hour Vital Signs Date Time Temp Pulse Resp B/P (MAP) Pulse Ox O2 Delivery O2 Flow Rate FiO2 03/19/18 11:05 75 14 40 03/19/18 09:29 75 16 40 03/19/18 08:15 Mechanical Ventilator 7/16/18 08:00 40 03/19/18 08:00 98.8 77 18 123/55 (77) 99 98.8 03/19/18 07:56 80 13 40 03/19/18 07:47 79 03/19/18 04:52 87 22 40 03/19/18 04:00 40 03/19/18 04:00 98.1 86 17 117/58 (77) 96 98.1 03/19/18 04:00 Mechanical Ventilator 03/19/18 03:59 86 03/19/18 03:10 90 20 40 03/19/18 01:30 104 20 40 03/19/18 00:00 40 03/19/18 00:00 98.6 88 15 126/60 (82) 96 98.6 03/19/18 00:00 Mechanical Ventilator 03/18/18 23:36 85 03/18/18 23:30 87 14 40 03/18/18 20:48 95 16 40 03/18/18 20:41 85 03/18/18 20:00 98.1 78 14 116/56 (76) 96 98.1 03/18/18 20:00 40 03/18/18 20:00 Mechanical Ventilator 03/18/18 19:30 105 26 40 03/18/18 17:54 79 16 Mechanical Ventilator 40 03/18/18 17:02 78 21 40 03/18/18 16:00 40 03/18/18 16:00 98.4 73 14 110/58 (75) 95 98.4 03/18/18 16:00 Mechanical Ventilator 03/18/18 15:52 70 13 40 03/18/18 15:49 71 03/18/18 12:40 67 12 40 03/18/18 12:00 40 03/18/18 12:00 98.2 72 17 108/53 (71) 97 98.2 03/18/18 12:00 Mechanical Ventilator 03/18/18 12:00 62 Height (Feet): 5 Height (Inches): 6.00 Weight (Pounds): 220 Objective General Appearance: WD/WN, no apparent distress Lines, tubes and drains: peripheral HEENT: normocephalic, atraumatic Neck: non-tender, normal alignment Respiratory/Chest: chest wall non-tender, lungs clear Breasts: no masses Cardiovascular/Chest: normal peripheral pulses Abdomen: normal bowel sounds, non tender Extremities: normal range of motion, non-tender Laboratory Tests Test 03/19/18 04:00 White Blood Count 7.5 K/UL (4.8-10.8) Red Blood Count 3.45 M/UL (4.20-5.40) L Hemoglobin 11.0 G/DL (12.0-16.0) L Hematocrit 32.4 % (37.0-47.0) L Mean Corpuscular Volume 94 FL (80-99) Mean Corpuscular Hemoglobin 31.8 PG (27.0-31.0) H Mean Corpuscular Hemoglobin Concent 33.8 G/DL (32.0-36.0) Red Cell Distribution Width 15.3 % (11.6-14.8) H Platelet Count 205 K/UL (150-450) Mean Platelet Volume 8.9 FL (6.5-10.1) Neutrophils (%) (Auto) 64.5 % (45.0-75.0) Lymphocytes (%) (Auto) 19.0 % (20.0-45.0) L Monocytes (%) (Auto) 13.0 % (1.0-10.0) H Eosinophils (%) (Auto) 2.1 % (0.0-3.0) Basophils (%) (Auto) 1.3 % (0.0-2.0) Sodium Level 137 MMOL/L (136-145) Potassium Level 3.1 MMOL/L (3.5-5.1) L Chloride Level 102 MMOL/L (98-107) Carbon Dioxide Level 32 MMOL/L (21-32) Anion Gap 4 mmol/L (5-15) L Blood Urea Nitrogen 5 mg/dL (7-18) L Creatinine 0.5 MG/DL (0.55-1.30) L Estimat Glomerular Filtration Rate mL/min (>60) Glucose Level 125 MG/DL (74-106) H Calcium Level 8.8 MG/DL (8.5-10.1) Current Medications Medications (Trade) Dose Ordered Sig/Boubacar Route PRN Reason Start Time Stop Time Status Last Admin Dose Admin Acetaminophen (Tylenol) 650 mg Q4H PRN ORAL FEVER 03/16/18 09:00 04/12/18 20:59 03/17/18 12:16 Chlorhexidine Gluconate ([place]-Hex 2%) 1 applic DAILY@2000 TOPIC 03/16/18 20:00 04/15/18 19:59 03/18/18 20:13 Colistimethate Sodium (Colistin *inhalation use only*) 150 mg Q12HR@10,22 INH 03/18/18 22:00 03/25/18 21:59 Dextrose (Dextrose 50%) 25 ml STAT PRN IV Hypoglycemia 03/16/18 21:00 04/12/18 20:59 Dextrose (Dextrose 50%) 50 ml STAT PRN IV Hypoglycemia 03/16/18 21:00 04/12/18 20:59 Heparin Sodium (Porcine) (Heparin 5000 units/ml) 5,000 units EVERY 12 HOURS SUBQ 03/16/18 09:00 04/12/18 20:59 03/19/18 09:16 Levetiracetam (Keppra) 1,500 mg DAILY GT 03/16/18 09:00 04/13/18 08:59 03/19/18 09:14 Levothyroxine Sodium (Synthroid) 50 mcg DAILY@0630 GT 03/17/18 06:30 04/13/18 06:29 03/19/18 05:34 Lorazepam (Ativan 2mg/ml 1ml) 2 mg Q2H PRN IV For Anxiety 03/16/18 09:00 03/20/18 20:59 Meropenem 1 gm/ Sodium Chloride 55 ml @ 110 mls/hr Q8HR IVPB 03/16/18 08:00 03/21/18 07:59 03/19/18 05:32 Midodrine (Pro-Amatine) 5 mg THREE TIMES A DAY ORAL 03/16/18 09:00 04/14/18 17:59 03/19/18 09:14 Morphine Sulfate (Morphine Sulfate) 4 mg Q4H PRN IVP Severe Pain (Pain Scale 7-10) 03/16/18 09:00 03/20/18 20:59 Ondansetron HCl (Zofran) 4 mg Q6H PRN IVP Nausea & Vomiting 03/16/18 09:00 04/12/18 20:59 Pantoprazole (Protonix) 40 mg DAILY IV 03/16/18 09:00 04/13/18 08:59 03/19/18 09:14 Phenytoin (Dilantin) 200 mg Q8HR ORAL 03/16/18 08:00 04/15/18 07:59 03/19/18 05:34 Polyethylene Glycol (Miralax) 17 gm DAILYPRN PRN ORAL Constipation 03/16/18 21:00 04/12/18 20:59 Vancomycin HCl (Vanco rx to dose) 1 ea DAILY PRN MISC per rx protocol 03/16/18 09:00 04/12/18 21:14 Vancomycin HCl/ Dextrose 250 ml @ 166.667 mls/hr Q12H IVPB 03/18/18 11:00 03/23/18 10:59 03/19/18 10:59 Sadia Medeiros M.D. Mar 19, 2018 11:39
[2018-03-19 12:00] VITALS: BP 111/52
[2018-03-19 16:00] VITALS: BP 118/49
--- NOTE | 2018-03-19 16:16 | General Progress Note ---
Assessment/Plan Status: stable, progressing Assessment/Plan encephalopathy dementia -seroquel prn -provided ro/st Subjective Date patient seen: Mar 19, 2018 Neurologic/Psychiatric: Reports: anxiety, depressed Allergies: Coded Allergies: PEANUT (Verified Allergy, Unknown, 09/22/16) Objective Last 24 Hour Vital Signs Date Time Temp Pulse Resp B/P (MAP) Pulse Ox O2 Delivery O2 Flow Rate FiO2 03/19/18 15:08 71 14 40 03/19/18 13:04 75 19 40 03/19/18 12:15 Mechanical Ventilator 03/19/18 12:00 98.5 71 16 111/52 (71) 98 98.5 03/19/18 12:00 40 03/19/18 11:48 72 03/19/18 11:05 75 14 40 03/19/18 09:29 75 16 40 03/19/18 08:15 Mechanical Ventilator 03/19/18 08:00 40 03/19/18 08:00 98.8 77 18 123/55 (77) 99 98.8 03/19/18 07:56 80 13 40 03/19/18 07:47 79 03/19/18 04:52 87 22 40 03/19/18 04:00 40 03/19/18 04:00 98.1 86 17 117/58 (77) 96 98.1 03/19/18 04:00 Mechanical Ventilator 03/19/18 03:59 86 03/19/18 03:10 90 20 40 03/19/18 01:30 104 20 40 03/19/18 00:00 40 03/19/18 00:00 98.6 88 15 126/60 (82) 96 98.6 03/19/18 00:00 Mechanical Ventilator 03/18/18 23:36 85 03/18/18 23:30 87 14 40 03/18/18 20:48 95 16 40 03/18/18 20:41 85 03/18/18 20:00 98.1 78 14 116/56 (76) 96 98.1 03/18/18 20:00 40 03/18/18 20:00 Mechanical Ventilator 03/18/18 19:30 105 26 40 03/18/18 17:54 79 16 Mechanical Ventilator 40 03/18/18 17:02 78 21 40 Intake and Output 03/18/18 03/19/18 19:00 07:00 Intake Total 500.000 ml 740 ml Output Total 800 ml 380 ml Balance -300.000 ml 360 ml IV Total 250.000 ml 360 ml Tube Feeding 210 ml 270 ml Other 40 ml 110 ml Output Urine Total 800 ml 380 ml # Bowel Movements 2 Laboratory Tests 03/19/18 04:00: White Blood Count 7.5, Red Blood Count 3.45L, Hemoglobin 11.0L, Hematocrit 32.4L , Mean Corpuscular Volume 94, Mean Corpuscular Hemoglobin 31.8H, Mean Corpuscular Hemoglobin Concent 33.8, Red Cell Distribution Width 15.3H, Platelet Count 205, Mean Platelet Volume 8.9, Neutrophils (%) (Auto) 64.5, Lymphocytes (%) (Auto) 19.0L, Monocytes (%) (Auto) 13.0H, Eosinophils (%) (Auto ) 2.1, Basophils (%) (Auto) 1.3, Sodium Level 137, Potassium Level 3.1L, Chloride Level 102, Carbon Dioxide Level 32, Anion Gap 4L, Blood Urea Nitrogen 5L, Creatinine 0.5L, Estimat Glomerular Filtration Rate , Glucose Level 125H, Calcium Level 8.8 Height (Feet): 5 Height (Inches): 6.00 Weight (Pounds): 220 General Appearance: no apparent distress, alert, confused Viktoria Murphy MD Mar 19, 2018 16:16
--- NOTE | 2018-03-19 16:16 | Consultation ---
History of Present Illness General Date patient seen: Mar 18, 2018 Chief Complaint: Fever Present Illness HPI 77-year-old female history of anoxic brain injury chronic respiratory failure trach, PEG, brought in by the longterm for low blood pressure. the pt is non verbal waxing waning the pt is not verbal Allergies: Coded Allergies: PEANUT (Verified Allergy, Unknown, 09/22/16) Medication History Scheduled Bisacodyl (Dulcolax), 10 MG RC PRN, (Reported) Cran/Vitc/Mannose/Inulin/Brom (Uti-Stat Liquid), 30 ML GT TWICE A DAY, (Reported ) Docusate Sodium* (Docusate Sodium*), 100 MG GT DAILY, (Reported) Levothyroxine Sodium* (Levothyroxine Sodium*), 50 MCG GT DAILY, (Reported) Lorazepam* (Ativan*), 1 MG ORAL EVERY 4 HOURS, (Reported) Multivitamin With Minerals (Multivitamins With Minerals*), 15 ML GT DAILY, ( Reported) Na Phos,M-B/Na Phos,Di-Ba* (Fleet Enema*), 133 ML RECTAL PRN, (Reported) Nitrofurantoin Monohyd/M-Cryst* (Macrobid 100 Mg*), 100 MG GT EVERY 12 HOURS Phenytoin (Dilantin), 200 MG ORAL THREE TIMES A DAY, (Reported) Zinc Sulfate (Zinc Sulfate*), 220 MG GT DAILY, (Reported) Scheduled PRN Acetaminophen (Acetaminophen), 650 MG GT Q6H PRN for Prn Headache/Temp > 101, ( Reported) Magnesium Hydroxide (Milk of Magnesia), 30 ML ORAL DAILY PRN for Constipation, ( Reported) Ondansetron Hcl* (Zofran*), 4 MG GT Q6H PRN for Nausea & Vomiting, (Reported) Miscellaneous Medications Levetiracetam* (Levetiracetam*), 1,500 MG GT, (Reported) Patient History Limited by: medical condition History Provided By: Medical Record, PMD Healthcare decision maker kelsey aguilar Resuscitation status Full Code Advanced Directive on File No Past Medical/Surgical History Past Medical/Surgical History: (1) Paroxysmal supraventricular tachycardia (2) Bradycardia (3) AV block, 2nd degree (4) Hypotension (5) Tracheostomy dependent (6) UTI (urinary tract infection) (7) Feeding tube dysfunction (8) Hypophosphatemia (9) anoxic (10) Bacteremia (11) Aspiration pneumonia (12) Bacteremia due to Gram-negative bacteria (13) Cholecystostomy care (14) Septic shock (15) Chronic respiratory failure (16) CHF (congestive heart failure) (17) Respiratory distress (18) Seizure (19) Hypokalemia (20) Vegetative state (21) Acute and chronic respiratory failure (22) Anoxic brain damage syndrome (23) Feeding by G-tube (24) lives in SNF (25) Anoxic encephalopathy (26) Hypothyroidism (27) Seizure disorder (28) HTN (hypertension) (29) Ventilator dependence (30) H/O: CVA (cerebrovascular accident) (31) Dysphagia s/p PEG (32) Sepsis (33) Functional paraplegia Review of Systems Psychiatric: Reports: prior hx, anxiety, depressed feelings Physical Exam General Appearance: no apparent distress, alert, confused Last 24 Hour Vital Signs Date Time Temp Pulse Resp B/P (MAP) Pulse Ox O2 Delivery O2 Flow Rate FiO2 03/19/18 15:08 71 14 40 03/19/18 13:04 75 19 40 03/19/18 12:15 Mechanical Ventilator 03/19/18 12:00 98.5 71 16 111/52 (71) 98 98.5 03/19/18 12:00 40 03/19/18 11:48 72 03/19/18 11:05 75 14 40 03/19/18 09:29 75 16 40 03/19/18 08:15 Mechanical Ventilator 03/19/18 08:00 40 03/19/18 08:00 98.8 77 18 123/55 (77) 99 98.8 03/19/18 07:56 80 13 40 03/19/18 07:47 79 03/19/18 04:52 87 22 40 03/19/18 04:00 40 03/19/18 04:00 98.1 86 17 117/58 (77) 96 98.1 03/19/18 04:00 Mechanical Ventilator 03/19/18 03:59 86 03/19/18 03:10 90 20 40 03/19/18 01:30 104 20 40 03/19/18 00:00 40 03/19/18 00:00 98.6 88 15 126/60 (82) 96 98.6 03/19/18 00:00 Mechanical Ventilator 03/18/18 23:36 85 03/18/18 23:30 87 14 40 03/18/18 20:48 95 16 40 03/18/18 20:41 85 03/18/18 20:00 98.1 78 14 116/56 (76) 96 98.1 03/18/18 20:00 40 03/18/18 20:00 Mechanical Ventilator 03/18/18 19:30 105 26 40 03/18/18 17:54 79 16 Mechanical Ventilator 40 03/18/18 17:02 78 21 40 Intake and Output 03/18/18 03/19/18 19:00 07:00 Intake Total 500.000 ml 740 ml Output Total 800 ml 380 ml Balance -300.000 ml 360 ml IV Total 250.000 ml 360 ml Tube Feeding 210 ml 270 ml Other 40 ml 110 ml Output Urine Total 800 ml 380 ml # Bowel Movements 2 Laboratory Tests Test 03/19/18 04:00 White Blood Count 7.5 K/UL (4.8-10.8) Red Blood Count 3.45 M/UL (4.20-5.40) L Hemoglobin 11.0 G/DL (12.0-16.0) L Hematocrit 32.4 % (37.0-47.0) L Mean Corpuscular Volume 94 FL (80-99) Mean Corpuscular Hemoglobin 31.8 PG (27.0-31.0) H Mean Corpuscular Hemoglobin Concent 33.8 G/DL (32.0-36.0) Red Cell Distribution Width 15.3 % (11.6-14.8) H Platelet Count 205 K/UL (150-450) Mean Platelet Volume 8.9 FL (6.5-10.1) Neutrophils (%) (Auto) 64.5 % (45.0-75.0) Lymphocytes (%) (Auto) 19.0 % (20.0-45.0) L Monocytes (%) (Auto) 13.0 % (1.0-10.0) H Eosinophils (%) (Auto) 2.1 % (0.0-3.0) Basophils (%) (Auto) 1.3 % (0.0-2.0) Sodium Level 137 MMOL/L (136-145) Potassium Level 3.1 MMOL/L (3.5-5.1) L Chloride Level 102 MMOL/L (98-107) Carbon Dioxide Level 32 MMOL/L (21-32) Anion Gap 4 mmol/L (5-15) L Blood Urea Nitrogen 5 mg/dL (7-18) L Creatinine 0.5 MG/DL (0.55-1.30) L Estimat Glomerular Filtration Rate mL/min (>60) Glucose Level 125 MG/DL (74-106) H Calcium Level 8.8 MG/DL (8.5-10.1) Height (Feet): 5 Height (Inches): 6.00 Weight (Pounds): 220 Medications Current Medications Medications (Trade) Dose Ordered Sig/Boubacar Route PRN Reason Start Time Stop Time Status Last Admin Dose Admin Acetaminophen (Tylenol) 650 mg Q4H PRN ORAL FEVER 03/16/18 09:00 04/12/18 20:59 03/17/18 12:16 Cefepime HCl 1 gm/ Dextrose 55 ml @ 110 mls/hr ONCE IVPB 03/19/18 21:00 03/19/18 22:00 Cefepime HCl 1 gm/ Dextrose 55 ml @ 110 mls/hr Q24H IVPB 03/20/18 09:00 03/27/18 08:59 Chlorhexidine Gluconate ([place]-Hex 2%) 1 applic DAILY@1999 TOPIC 03/16/18 20:00 04/15/18 19:59 03/18/18 20:13 Colistimethate Sodium (Colistin *inhalation use only*) 150 mg Q12HR@ INH 03/18/18 22:00 03/25/18 21:59 03/19/18 15:40 Dextrose (Dextrose 50%) 25 ml STAT PRN IV Hypoglycemia 03/16/18 21:00 04/12/18 20:59 Dextrose (Dextrose 50%) 50 ml STAT PRN IV Hypoglycemia 03/16/18 21:00 04/12/18 20:59 Heparin Sodium (Porcine) (Heparin 5000 units/ml) 5,000 units EVERY 12 HOURS SUBQ 03/16/18 09:00 04/12/18 20:59 03/19/18 09:16 Levetiracetam (Keppra) 1,500 mg DAILY GT 03/16/18 09:00 04/13/18 08:59 03/19/18 09:14 Levothyroxine Sodium (Synthroid) 50 mcg DAILY@0630 GT 03/17/18 06:30 04/13/18 06:29 03/19/18 05:34 Lorazepam (Ativan 2mg/ml 1ml) 2 mg Q2H PRN IV For Anxiety 03/16/18 09:00 03/20/18 20:59 Midodrine (Pro-Amatine) 5 mg THREE TIMES A DAY ORAL 03/16/18 09:00 04/14/18 17:59 03/19/18 14:00 Morphine Sulfate (Morphine Sulfate) 4 mg Q4H PRN IVP Severe Pain (Pain Scale 7-10) 03/16/18 09:00 03/20/18 20:59 Ondansetron HCl (Zofran) 4 mg Q6H PRN IVP Nausea & Vomiting 03/16/18 09:00 04/12/18 20:59 Pantoprazole (Protonix) 40 mg DAILY IV 03/16/18 09:00 04/13/18 08:59 03/19/18 09:14 Phenytoin (Dilantin) 200 mg EVERY 12 HOURS GT 03/19/18 21:00 04/18/18 20:59 Polyethylene Glycol (Miralax) 17 gm DAILYPRN PRN ORAL Constipation 03/16/18 21:00 04/12/18 20:59 Vancomycin HCl (Vanco rx to dose) 1 ea DAILY PRN MISC per rx protocol 03/16/18 09:00 03/19/18 23:59 Vancomycin HCl/ Dextrose 250 ml @ 166.667 mls/hr Q12H IVPB 03/19/18 23:00 03/20/18 01:30 Assessment/Plan Assessment/Plan encephalopathy dementia -seroquel prn -provided khanh/Viktoria Jiang MD Mar 19, 2018 16:16
[2018-03-19 20:00] VITALS: BP 110/50
[2018-03-19] MEDS ORDERED: NS 275ml ONE (20:21)
[2018-03-19] MEDS ORDERED: Cefepime HCl 1 GM in D5W 55 ML IVPB SCH (21:00)
[2018-03-19] MEDS ORDERED: Phenytoin Susp 100mg/4ml NG SCH (21:00)
[2018-03-19] MEDS ORDERED: Phenytoin Susp 100mg/4ml GT SCH (21:00)
[2018-03-19] MEDS ORDERED: Phenytoin 100mg cap ORAL SCH (22:00)
[2018-03-19] MEDS ORDERED: Vancomycin 1250mg/D5W 250ml 250 ML IVPB SCH (23:00)
[2018-03-20] MEDS ORDERED: Cefepime HCl 1 GM in D5W 55 ML IVPB SCH (09:00)
--- NOTE | 2018-03-21 12:42 | Discharge Summary ---
Discharge Summary Discharge Summary _ DATE OF ADMISSION: 03/13/2018 DATE OF DISCHARGE: 03/19/2018 REASON FOR ADMISSION: 77 years old female with past medical history significant for chronic respiratory failure, ventilator dependent; dysphagia, G-tube, anoxic encephalopathy due to anoxic brain injury, hypertensin, seizure disorder, breast cancer., diabetes, bedbound , nonverbal was sent from the residential facility for evaluation of low blood pressure. Despite intravenous fluids, blood pressure did not respond. Central line was placed in emergency department in anticipation for pressors. Laboratory workup revealed WBC 24.3. Lactic acid elevated 2.4. Sodium 132 , potassium 3.3. Troponin negative , pro BNP 994. Urinalysis consistent with UTI. Chest x-ray revealed vascular congestion versus infiltrates . Patient diagnosed with sepsis, septic shock, UTI, pneumonia, acute and chronic respiratory failure with tracheostomy. CONSULTANTS: pulmonary Dr. Rodriguez ID specialist Dr. Madera fur dresser/oncologist Dr. Hanna psychiatrist [facility] COURSE: Patient initially admitted to ICU. Patient started on pressors i.e. Levophed to keep mean arterial blood pressure above 65. Patient started on broad-spectrum antibiotics. ID specialist closely followed. Ventilator support and pulmonary toilet provided. Tracheostomy care provided. Baseline ABG was stable on current settings. Patient was followed up with chest x-ray. B Blood culture revealed Staph epidermidis. Urine culture was negative. Sputum culture revealed Acinetobacter MDR and Pseudomonas. Repeated blood culture were negative. Antibiotic regimen optimized as per ID doctor recommendations. Patient was able to be weaned from pressors and started on midodrine. Blood pressure was closely monitored. Blood pressure remained stable with midodrine. Echocardiogram revealed preserved ejection fraction of 60% and right ventricular systolic pressure of 29. No evidence of CHF decompensation. Strict aspiration precautions were maintained. G-tube feeding continued. G-tube site care provided. Patient was able to tolerate tube feeding. DVT and GI prophylaxis provided. Venous duplex bilateral lower extremity was negative. Seizure precautions maintained. Keppra was continued. No evidence of seizure activity while in the hospital. Hemoglobin and hematocrit were closely monitored with goal to keep hemoglobin above 7. Hemoglobin and hematocrit remained at baseline Chief Legal Officer closely follow. Supportive care provided.. Bowel regimen instituted. Pain management was addressed. Patient clinically improved Leukocytosis resolved. Patient was stable for discharge to subacute residential facility. FINAL DIAGNOSES: Acute and chronic ventilator dependent respiratory failure Sepsis with Staph bacteremia Septic shock, resolved Aspiration pneumonia Dysphagia , G-tube Congestive heart failure Anoxic encephalopathy secondary to anoxic brain injury Seizure disorder Functional quadriplegia History of hypertension Anemia due to underlying chronic disease DISCHARGE MEDICATIONS: List of medication was sent to accepting facility. DISCHARGE INSTRUCTIONS: Patient was discharged to subacute residential facility. Follow up with medical doctor and flight operation coordinator at the facility. I have been assigned to dictate discharge summary for this account. I was not involved in the patient's management. Libby Collins NP Mar 21, 2018 12:42
== END 2018-03-19 20:22 | DRG 870 ==
LOC: EDBD 17:21 → EMR 17:45 → EDBEDREQSVC 18:46 → EDBEDREQ 18:46 → ICU 19:18 → EDBEDREQ 19:54 → ICU 20:53 → 2W 03-16 06:48
PROC: 5A1955Z Respiratory Ventilation, Greater than 96 Consecutive Hours (ICD-10-PCS; principal; 2018-03-13)
PROC: 02HV33Z Insertion of Infusion Device into Superior Vena Cava, Percutaneous Approach (ICD-10-PCS; 2018-03-16)
DX: A41.2 Sepsis due to unspecified staphylococcus (principal); R65.21 Severe sepsis with septic shock; J96.20 Acute and chronic respiratory failure, unspecified whether with hypoxia or hypercapnia; J69.0 Pneumonitis due to inhalation of food and vomit; R53.2 Functional quadriplegia; G93.1 Anoxic brain damage, not elsewhere classified; Z99.11 Dependence on respirator [ventilator] status; Z43.1 Encounter for attention to gastrostomy; N39.0 Urinary tract infection, site not specified; I11.0 Hypertensive heart disease with heart failure; I50.9 Heart failure, unspecified; G40.909 Epilepsy, unspecified, not intractable, without status epilepticus; Z85.3 Personal history of malignant neoplasm of breast; Z43.0 Encounter for attention to tracheostomy; I25.10 Atherosclerotic heart disease of native coronary artery without angina pectoris; I25.2 Old myocardial infarction; E11.9 Type 2 diabetes mellitus without complications; E03.9 Hypothyroidism, unspecified; R13.10 Dysphagia, unspecified
CPT/HCPCS: 36415; 36569; 36600; 71045; 76937; 80048; 80053; 80069; 80202; 81003; 82248; 82550; 82803; 83605; 83880; 84484; 85007; 85025; 85610; 85730; 87040; 87070; 87081; 87086; 87181; 87205; 93005; 93306; 93970; 94002; 94003; 94664; 99291; J8499

== ENCOUNTER 2018-07-28 13:02 | Emergency (ER) | payer MEDICARE, MEDICAID ==
[~2018-07-28] VITALS: Ht 167.6 cm; Wt 113.4 kg
[2018-07-28] VITALS (9 sets, daily range): BP systolic 98–137; BP diastolic 53–74
[~2018-07-28 13:02] MED LIST changes: +ATIVAN1 MG ORAL; +COLACE100 MG ORAL; +DILANTIN100 MG ORAL
[2018-07-28] MEDS ORDERED: Isovue-300 100ml vial INJ PRN (13:30)
[2018-07-28 13:42] LABS: BASOPHILS % (AUTO) 0.7 % (0.0-2.0); EOSINOPHILS % (AUTO) 2.9 % (0.0-3.0); HEMATOCRIT 40.1 % (37.0-47.0); HEMOGLOBIN 14.4 G/DL (12.0-16.0); LYMPHOCYTES % (AUTO) 14.9 % (20.0-45.0); MEAN CORPUSCULAR VOLUME 97 FL (80-99); MONOCYTES % (AUTO) 6.5 % (1.0-10.0); PLATELET COUNT 177 K/UL (150-450); RED BLOOD COUNT 4.12 M/UL (4.20-5.40); RED CELL DISTRIBUTION WIDTH 12.9 % (11.6-14.8); WHITE BLOOD COUNT 8.4 K/UL (4.8-10.8)
[2018-07-28 13:54] LABS: ANION GAP 6 mmol/L (5-15); BLOOD UREA NITROGEN 12 mg/dL (7-18); CALCIUM 9.7 MG/DL (8.5-10.1); CARBON DIOXIDE 32 MMOL/L (21-32); CHLORIDE 98 MMOL/L (98-107); CREATININE 0.5 MG/DL (0.55-1.30); POTASSIUM 3.3 MMOL/L (3.5-5.1); SODIUM 135 MMOL/L (136-145)
[2018-07-28 13:58] LABS: ALANINE AMINOTRANSFERASE 22 U/L (12-78); ALBUMIN 2.6 G/DL (3.4-5.0); ALBUMIN/GLOBULIN RATIO 0.4 (1.0-2.7); ALKALINE PHOSPHATASE 244 U/L (46-116); ASPARTATE AMINO TRANSFERASE 36 U/L (15-37); BILIRUBIN,TOTAL 0.4 MG/DL (0.2-1.0)
[2018-07-28 14:33] LABS: APPEARANCE,URINE CLEAR; BILIRUBIN, URINE NEGATIVE (NEGATIVE); COLOR,URINE PALE YELLOW; GLUCOSE, URINE (UA) NEGATIVE (NEGATIVE); KETONES,URINE NEGATIVE (NEGATIVE); LEUKOCYTE ESTERASE ,URINE NEGATIVE (NEGATIVE); NITRITE,URINE NEGATIVE (NEGATIVE); PH,URINE 6.5 (4.5-8.0); PROTEIN,URINE NEGATIVE (NEGATIVE); UROBILINOGEN,URINE NORMAL MG/DL (0.0-1.0)
--- NOTE | 2018-07-28 14:42 | Emergency Room Report ---
History of Present Illness General Chief Complaint: Abdominal Pain Source: Medical Record (Mina Mckenzie MD) Present Illness HPI 78-year-old female presents ED for evaluation. Coming from [facility] facility with abdominal distention 2 days. Noted by nursing staff. Patient is nonverbal at baseline. His trach and vent dependent. No signs of distress. No reported nausea or vomiting. No fevers or chills. No other aggravating relieving factors. No other associated symptoms (Mina Mckenzie MD) Allergies: Coded Allergies: PEANUT (Verified Allergy, Unknown, 09/22/16) Patient History Past Medical History: DM, HTN, COPD, seizures, other - encephalopathy Past Surgical History: none Pertinent Family History: none Social History: Denies: smoking, alcohol use, drug use Now: No Immunizations: UTD Reviewed Nursing Documentation: PMH: Agreed; PSxH: Agreed (Mina Mckenzie MD) Nursing Documentation-PMH Past Medical History: No History, Except For Hx Hypertension: Yes Hx Pacemaker: No Hx Asthma: No Hx COPD: Yes Hx Diabetes: Yes Hx Cancer: Yes - Breast Hx Neurological Problems: No Hx Cerebrovascular Accident: Yes - Encephalpathy Hx Transient Ischemic Attacks: No Hx Dementia: Yes Hx Alzheimer's Disease: No Hx Parkinson's Disease: No Hx Meningitis: No Hx Seizures: Yes Hx Epilepsy: No Hx Multiple Sclerosis: No Hx Cerebral Palsy: No Hx Amyotrophic Lat Sclerosis: No Hx Guillian-Armstrong Syndrome: No Hx Paralysis: Yes - CVA Hx Peripheral Neuropathy: No Hx Spinal Cord Injury: No Hx Head Trauma: No Hx Traumatic Brain Injury: No Hx Memory Loss: Yes Hx Concentration Difficulty: Yes Hx Speech Problem: Yes Hx Tremors: No Hx Vertigo: No Hx Dizziness: No Hx Syncope: No Hx Headaches: No Hx Aphasia: No Hx Dysphasia: No Hx Weakness: Yes Hx Fatigue: No Hx Neurologic Surgery: No Hx Brain Shunt: No (Mina Mckenzie MD) Review of Systems All Other Systems: limited (Mina Mckenzie MD) Physical Exam Vital Signs Date Time Temp Pulse Resp B/P (MAP) Pulse Ox O2 Delivery O2 Flow Rate FiO2 07/28/18 13:03 97.5 88 24 124/84 98 Mechanical Ventilator 07/28/18 13:18 60.0 40 Sp02 EP Interpretation: reviewed, normal General Appearance: other - nonverbal Head: normocephalic Eyes: bilateral eye normal inspection, bilateral eye PERRL ENT: normal ENT inspection Neck: tracheotomy Respiratory: chest non-tender, lungs clear, normal breath sounds, speaking full sentences Cardiovascular #1: regular rate, rhythm, no edema Gastrointestinal: non tender, distended Rectal: deferred Genitourinary: no CVA tenderness Musculoskeletal: normal inspection Neurologic: other - nonverbal Psychiatric: other - nonverbal Skin: normal inspection Lymphatic: normal inspection (Mina Mckenzie MD) Medical Decision Making Diagnostic Impression: Primary Impression: Acute and chronic respiratory failure Additional Impressions: Ventilator dependence Anoxic brain damage syndrome illeus eval volvulus Labs Test 07/28/18 13:25 07/28/18 13:55 White Blood Count 8.4 K/UL (4.8-10.8) Red Blood Count 4.12 M/UL (4.20-5.40) Hemoglobin 14.4 G/DL (12.0-16.0) Hematocrit 40.1 % (37.0-47.0) Mean Corpuscular Volume 97 FL (80-99) Mean Corpuscular Hemoglobin 34.9 PG (27.0-31.0) Mean Corpuscular Hemoglobin Concent 35.9 G/DL (32.0-36.0) Red Cell Distribution Width 12.9 % (11.6-14.8) Platelet Count 177 K/UL (150-450) Mean Platelet Volume 17.0 FL (6.5-10.1) Neutrophils (%) (Auto) 75.0 % (45.0-75.0) Lymphocytes (%) (Auto) 14.9 % (20.0-45.0) Monocytes (%) (Auto) 6.5 % (1.0-10.0) Eosinophils (%) (Auto) 2.9 % (0.0-3.0) Basophils (%) (Auto) 0.7 % (0.0-2.0) Sodium Level 135 MMOL/L (136-145) Potassium Level 3.3 MMOL/L (3.5-5.1) Chloride Level 98 MMOL/L (98-107) Carbon Dioxide Level 32 MMOL/L (21-32) Anion Gap 6 mmol/L (5-15) Blood Urea Nitrogen 12 mg/dL (7-18) Creatinine 0.5 MG/DL (0.55-1.30) Estimat Glomerular Filtration Rate mL/min (>60) Glucose Level 102 MG/DL (74-106) Calcium Level 9.7 MG/DL (8.5-10.1) Total Bilirubin 0.4 MG/DL (0.2-1.0) Aspartate Amino Transf (AST/SGOT) 36 U/L (15-37) Alanine Aminotransferase (ALT/SGPT) 22 U/L (12-78) Alkaline Phosphatase 244 U/L (46-116) Total Protein 9.2 G/DL (6.4-8.2) Albumin 2.6 G/DL (3.4-5.0) Globulin 6.6 g/dL Albumin/Globulin Ratio 0.4 (1.0-2.7) Lipase 56 U/L (73-393) Urine Color Pale yellow Urine Appearance Clear Urine pH 6.5 (4.5-8.0) Urine Specific [place] 1.010 (1.005-1.035) Urine Protein Negative (NEGATIVE) Urine Glucose (UA) Negative (NEGATIVE) Urine Ketones Negative (NEGATIVE) Urine Blood Negative (NEGATIVE) Urine Nitrite Negative (NEGATIVE) Urine Bilirubin Negative (NEGATIVE) Urine Urobilinogen Normal MG/DL (0.0-1.0) Urine Leukocyte Esterase Negative (NEGATIVE) (Mina Mckenzie MD) ER Course Please for to the initial note for the history exam and presentation patient does have a somewhat distended abdomen CT imaging was obtained which showed questionable ileus Also cannot rule out volvulus Given these findings patient will require further Gen. surgery consultation And therefore required further admission Secondary to insurance purposes patient is requested for transfer Labs Test 07/28/18 13:25 07/28/18 13:55 White Blood Count 8.4 K/UL (4.8-10.8) Red Blood Count 4.12 M/UL (4.20-5.40) Hemoglobin 14.4 G/DL (12.0-16.0) Hematocrit 40.1 % (37.0-47.0) Mean Corpuscular Volume 97 FL (80-99) Mean Corpuscular Hemoglobin 34.9 PG (27.0-31.0) Mean Corpuscular Hemoglobin Concent 35.9 G/DL (32.0-36.0) Red Cell Distribution Width 12.9 % (11.6-14.8) Platelet Count 177 K/UL (150-450) Mean Platelet Volume 17.0 FL (6.5-10.1) Neutrophils (%) (Auto) 75.0 % (45.0-75.0) Lymphocytes (%) (Auto) 14.9 % (20.0-45.0) Monocytes (%) (Auto) 6.5 % (1.0-10.0) Eosinophils (%) (Auto) 2.9 % (0.0-3.0) Basophils (%) (Auto) 0.7 % (0.0-2.0) Sodium Level 135 MMOL/L (136-145) Potassium Level 3.3 MMOL/L (3.5-5.1) Chloride Level 98 MMOL/L (98-107) Carbon Dioxide Level 32 MMOL/L (21-32) Anion Gap 6 mmol/L (5-15) Blood Urea Nitrogen 12 mg/dL (7-18) Creatinine 0.5 MG/DL (0.55-1.30) Estimat Glomerular Filtration Rate mL/min (>60) Glucose Level 102 MG/DL (74-106) Calcium Level 9.7 MG/DL (8.5-10.1) Total Bilirubin 0.4 MG/DL (0.2-1.0) Aspartate Amino Transf (AST/SGOT) 36 U/L (15-37) Alanine Aminotransferase (ALT/SGPT) 22 U/L (12-78) Alkaline Phosphatase 244 U/L (46-116) Total Protein 9.2 G/DL (6.4-8.2) Albumin 2.6 G/DL (3.4-5.0) Globulin 6.6 g/dL Albumin/Globulin Ratio 0.4 (1.0-2.7) Lipase 56 U/L (73-393) Urine Color Pale yellow Urine Appearance Clear Urine pH 6.5 (4.5-8.0) Urine Specific [place] 1.010 (1.005-1.035) Urine Protein Negative (NEGATIVE) Urine Glucose (UA) Negative (NEGATIVE) Urine Ketones Negative (NEGATIVE) Urine Blood Negative (NEGATIVE) Urine Nitrite Negative (NEGATIVE) Urine Bilirubin Negative (NEGATIVE) Urine Urobilinogen Normal MG/DL (0.0-1.0) Urine Leukocyte Esterase Negative (NEGATIVE) (Wanda Gracia DO) EKG Diagnostic Results Rate: normal Rhythm: NSR ST Segments: no acute changes ASA given to the pt in ED: No (Mina Mckenzie MD) Rhythm Strip Diag. Results EP Interpretation: yes Rhythm: NSR, no PVC's, no ectopy (Mina Mckenzie MD) EP Interpretation: yes Rate: 95 Rhythm: NSR, no PVC's, no ectopy (Wanda Gracia DO) CT/MRI/US Diagnostic Results CT/MRI/US Diagnostic Results : Impression CT abdomen pelvis: cannot rule out volvulus, chronic appearing constipation, patchy atelectasis (Wanda Gracia DO) Last Vital Signs Date Time Temp Pulse Resp B/P (MAP) Pulse Ox O2 Delivery O2 Flow Rate FiO2 07/28/18 13:50 40 07/28/18 13:38 98.1 90 16 119/74 100 Mechanical Ventilator 07/28/18 13:18 60.0 (Mina Mckenzie MD) Status: improved (Wanda Gracia DO) Disposition: [facility]FER [facility] Condition: Serious Referrals: Savi Rodriguez MD (PCP) Mina Mckenzie MD Jul 28, 2018 14:42 Wanda Gracia DO Jul 28, 2018 16:42
[2018-07-28] MEDS ORDERED: FERROUS SU300 MG/52 GT (15:04)
[2018-07-28] MEDS ORDERED: POLYETHYLENE GL17 GM ORAL (15:09)
[2018-07-28] MEDS ORDERED: PRO-AMATINE5 M1 GT (15:09)
[2018-07-28] MEDS ORDERED: OMEPRAZOLE20 M2 ORAL (15:09)
--- NOTE | 2018-07-28 16:16 | Diagnostic Imaging Report ---
EXAM: CT Abdomen and Pelvis With Intravenous Contrast CLINICAL HISTORY: ABD PAIN TECHNIQUE: Axial computed tomography images of the abdomen and pelvis with intravenous contrast. CTDI is 20.10 mGy and DLP is 994 mGy-cm. One or more of the following dose reduction techniques were used: automated exposure control, adjustment of the mA and/or kV according to patient size, use of iterative reconstruction technique. COMPARISON: CT abdomen pelvis dated 03/02/18 FINDINGS: Lung bases: Patchy opacities in bilateral dependent lung bases, which may represent pneumonia versus atelectasis. ABDOMEN: Liver: Unremarkable. No mass. Gallbladder and bile ducts: Unremarkable. No calcified stones. No ductal dilation. Pancreas: Unremarkable. No mass. No ductal dilation. Spleen: Unremarkable. No splenomegaly. Adrenals: Unremarkable. No mass. Kidneys and ureters: Scattered simple-appearing renal cortical cysts, largest measuring 3.6 cm in the left lower renal pole. Stomach and bowel: Chronic diffuse constipation and diffuse gaseous distention of the distal colonic loops, with maximum diameter of sigmoid colon of 12.3 cm. No mucosal thickening. PELVIS: Appendix: No findings to suggest acute appendicitis. Bladder: Unremarkable. No mass. Reproductive: Unremarkable as visualized. ABDOMEN and PELVIS: Intraperitoneal space: Unremarkable. No free air. No significant fluid collection. Bones/joints: No acute fracture. No dislocation. Soft tissues: Small fat-containing periumbilical hernia. Vasculature: Atherosclerotic calcifications throughout the abdominal aorta and its proximal branches.. No abdominal aortic aneurysm. Lymph nodes: Unremarkable. No enlarged lymph nodes. Tubes, lines and devices: Percutaneous gastrostomy tube in place, with expected positioning. IMPRESSION: 1. Patchy opacities in bilateral dependent lung bases, which may represent pneumonia versus atelectasis. 2. Chronic diffuse constipation and diffuse gaseous distention of the distal colonic loops, with maximum diameter of the sigmoid colon of 12.3 cm. This is not significantly changed compared to the prior CT from 03/02/18. Cannot exclude sigmoid volvulus, however distal rectum also appears diffusely distended with luminal air and fluid.
== END 2018-07-28 18:45 | disposition short-term general hospital (02) ==
LOC: EDBD 13:02 → EMR 13:46 → EDBEDREQ 14:40 → EMR 18:45
DX: J96.00 Acute respiratory failure, unspecified whether with hypoxia or hypercapnia (principal); J96.20 Acute and chronic respiratory failure, unspecified whether with hypoxia or hypercapnia; Z99.81 Dependence on supplemental oxygen; G93.1 Anoxic brain damage, not elsewhere classified; K56.7 Ileus, unspecified; E11.9 Type 2 diabetes mellitus without complications; I10 Essential (primary) hypertension; J44.9 Chronic obstructive pulmonary disease, unspecified; Z91.010 Allergy to peanuts; Z85.3 Personal history of malignant neoplasm of breast; F03.90 Unspecified dementia, unspecified severity, without behavioral disturbance, psychotic disturbance, mood disturbance, and anxiety; Z86.73 Personal history of transient ischemic attack (TIA), and cerebral infarction without residual deficits
CPT/HCPCS: 36415; 74177; 80053; 81003; 83690; 85025; 94002; 94003; 94664; 99285; Q9967

== ENCOUNTER 2018-08-25 10:56 | Inpatient (IN) | payer MEDICARE, MEDICAID ==
[~2018-08-25] VITALS: Ht 167.6 cm; Wt 99.8 kg
[~2018-08-25 10:56] MED LIST changes: +FERROUS SU300 MG/52 GT; +MOM30 ML GT; -MOM30 ML ORAL; +OMEPRAZOLE20 M2 GT; +POLYETHYLENE GL17 GM ORAL; +PRO-AMATINE5 M1 GT
--- NOTE | 2018-08-25 11:35 | Emergency Room Report ---
History of Present Illness General Chief Complaint: General Complaint Source: Medical Record, EMS Present Illness HPI Patient was brought in for evaluation of abnormal KUB x-ray Patient had x-ray done with Gastrografin yesterday which showed concerns of possible obstruction History of present illness is significantly limited patient herself is chronically debilitated not verbal has a tracheostomy and is vent dependent There was no reports of vomiting patient did have a bowel movement this morning Given the abnormal imaging was sent for further evaluation Allergies: Coded Allergies: PEANUT (Verified Allergy, Unknown, 09/22/16) Patient History Limited by: medical condition Past Medical History: see triage record Pertinent Family History: none Reviewed Nursing Documentation: PMH: Agreed; PSxH: Agreed Nursing Documentation-PMH Past Medical History: No History, Except For Hx Hypertension: Yes Hx Pacemaker: No Hx Asthma: No Hx COPD: Yes Hx Diabetes: Yes Hx Cancer: Yes - Breast Hx Neurological Problems: No Hx Cerebrovascular Accident: Yes - Encephalpathy Hx Transient Ischemic Attacks: No Hx Dementia: Yes Hx Alzheimer's Disease: No Hx Parkinson's Disease: No Hx Meningitis: No Hx Seizures: Yes Hx Epilepsy: No Hx Multiple Sclerosis: No Hx Cerebral Palsy: No Hx Amyotrophic Lat Sclerosis: No Hx Guillian-Moraga Syndrome: No Hx Paralysis: Yes - CVA Hx Peripheral Neuropathy: No Hx Spinal Cord Injury: No Hx Head Trauma: No Hx Traumatic Brain Injury: No Hx Memory Loss: Yes Hx Concentration Difficulty: Yes Hx Speech Problem: Yes Hx Tremors: No Hx Vertigo: No Hx Dizziness: No Hx Syncope: No Hx Headaches: No Hx Aphasia: No Hx Dysphasia: No Hx Weakness: Yes Hx Fatigue: No Hx Neurologic Surgery: No Hx Brain Shunt: No Review of Systems All Other Systems: limited - Other than the ones mentioned in the history of present illness all others are reviewed however they do stay limited due to the patient's mental status Physical Exam Vital Signs Date Time Temp Pulse Resp B/P (MAP) Pulse Ox O2 Delivery O2 Flow Rate FiO2 08/25/18 10:56 98.6 75 20 130/58 95 Mechanical Ventilator 08/25/18 11:15 40 Sp02 EP Interpretation: reviewed, normal General Appearance: no apparent distress Head: normocephalic, atraumatic Eyes: bilateral eye PERRL ENT: normal pharynx, no angioedema Neck: supple, other - Tracheostomy in place Respiratory: lungs clear, normal breath sounds Cardiovascular #1: regular rate, rhythm Gastrointestinal: non tender, no hernia, other - Feeding tube in place Musculoskeletal: other - Chronically debilitated Neurologic: responsive - To physical stimuli Skin: other - Chronic ulcers Lymphatic: no adenopathy Medical Decision Making Diagnostic Impression: Primary Impression: Status post tracheostomy Additional Impressions: Hypokalemia Feeding tube dysfunction Bowel obstruction ER Course Multiple differentials considered Given the report from the outside facility oral contrast was provided and CT imaging ordered There was a problem was CT imaging in the machine was not working appropriately And the imaging was not able to be obtained Therefore Gastrografin with KUB was obtained On 2 different x-rays the contrast appears to be remaining in the gastric area after approximately 30-40 minutes Reason the question of possible obstruction Patient's imaging that shows similar findings however to about one month ago There still remains concern of possible volvulus versus other and given the lack of CT imaging capacity patient will require inpatient care and further surgery consultation Labs Test 08/25/18 15:25 08/25/18 16:53 08/26/18 04:00 Sodium Level 140 MMOL/L (136-145) 141 MMOL/L (136-145) Potassium Level 2.8 MMOL/L (3.5-5.1) 2.7 MMOL/L (3.5-5.1) Chloride Level 100 MMOL/L (98-107) 103 MMOL/L (98-107) Carbon Dioxide Level 30 MMOL/L (21-32) 31 MMOL/L (21-32) Anion Gap 10 mmol/L (5-15) 7 mmol/L (5-15) Blood Urea Nitrogen 8 mg/dL (7-18) 6 mg/dL (7-18) Creatinine 0.4 MG/DL (0.55-1.30) 0.6 MG/DL (0.55-1.30) Estimat Glomerular Filtration Rate mL/min (>60) mL/min (>60) Glucose Level 104 MG/DL (74-106) 103 MG/DL (74-106) Calcium Level 9.5 MG/DL (8.5-10.1) 9.1 MG/DL (8.5-10.1) Total Bilirubin 0.5 MG/DL (0.2-1.0) Aspartate Amino Transf (AST/SGOT) 45 U/L (15-37) Alanine Aminotransferase (ALT/SGPT) 27 U/L (12-78) Alkaline Phosphatase 262 U/L (46-116) Total Creatine Kinase 53 U/L (26-308) Creatine Kinase MB < 0.5 NG/ML (0.0-3.6) Creatine Kinase MB Relative Index 0.9 Total Protein 7.8 G/DL (6.4-8.2) Albumin 2.9 G/DL (3.4-5.0) Globulin 4.9 g/dL Albumin/Globulin Ratio 0.6 (1.0-2.7) Lipase 46 U/L (73-393) White Blood Count 12.8 K/UL (4.8-10.8) 8.4 K/UL (4.8-10.8) Red Blood Count 3.95 M/UL (4.20-5.40) 3.46 M/UL (4.20-5.40) Hemoglobin 13.2 G/DL (12.0-16.0) 11.7 G/DL (12.0-16.0) Hematocrit 39.4 % (37.0-47.0) 34.8 % (37.0-47.0) Mean Corpuscular Volume 100 FL (80-99) 101 FL (80-99) Mean Corpuscular Hemoglobin 33.4 PG (27.0-31.0) 33.9 PG (27.0-31.0) Mean Corpuscular Hemoglobin Concent 33.4 G/DL (32.0-36.0) 33.7 G/DL (32.0-36.0) Red Cell Distribution Width 12.3 % (11.6-14.8) 12.1 % (11.6-14.8) Platelet Count 194 K/UL (150-450) 193 K/UL (150-450) Mean Platelet Volume 9.5 FL (6.5-10.1) 9.7 FL (6.5-10.1) Neutrophils (%) (Auto) % (45.0-75.0) 76.9 % (45.0-75.0) Lymphocytes (%) (Auto) % (20.0-45.0) 15.6 % (20.0-45.0) Monocytes (%) (Auto) % (1.0-10.0) 6.0 % (1.0-10.0) Eosinophils (%) (Auto) % (0.0-3.0) 1.1 % (0.0-3.0) Basophils (%) (Auto) % (0.0-2.0) 0.4 % (0.0-2.0) Differential Total Cells Counted 100 Neutrophils % (Manual) 90 % (45-75) Lymphocytes % (Manual) 3 % (20-45) Monocytes % (Manual) 4 % (1-10) Eosinophils % (Manual) 0 % (0-3) Basophils % (Manual) 0 % (0-2) Band Neutrophils 3 % (0-8) Platelet Estimate Adequate Platelet Morphology Normal Polychromasia 1+ Macrocytosis 1+ Rhythm Strip Diag. Results EP Interpretation: yes Rate: 80 Rhythm: no PVC's, no ectopy, other - Wide-complex Other X-Ray Diagnostic Results Other X-Ray Diagnostic Results : X-Ray ordered: KUB # of Views/Limited Vs Complete: 1 View Indication: Other - Tube placement EP Interpretation: Yes Interpretation: no dislocation, no soft tissue swelling, other - Large gaseous formation in the intestinal area, question volvulus oral contrast remains at the gastric area, Impression: Other - Consider obstruction Electronically Signed by: Wanda Gracia DO Last Vital Signs Date Time Temp Pulse Resp B/P (MAP) Pulse Ox O2 Delivery O2 Flow Rate FiO2 08/25/18 11:15 63 15 40 08/25/18 10:56 98.6 130/58 95 Mechanical Ventilator Status: improved Disposition: ADMITTED INPATIENT Condition: Serious Referrals: Juaquin Ramos DO (PCP) Wanda Gracia DO Aug 25, 2018 11:35
[2018-08-25 11:41] VITALS: BP 132/59
--- NOTE | 2018-08-25 14:04 | Diagnostic Imaging Report ---
EXAM: XR Abdomen, 2 Views CLINICAL HISTORY: TUBE PLCMT TECHNIQUE: Frontal view of the abdomen/pelvis with upright view of the abdomen. COMPARISON: No relevant prior studies available. FINDINGS: Intraperitoneal space: No evidence of intraperitoneal free air. Gastrointestinal tract: Diffuse gaseous distention of colonic loops, with maximum diameter of 17 cm in the right upper quadrant, raising concern for sigmoid volvulus. No evidence of pneumatosis intestinalis. Bones/joints: Unremarkable. Tubes, lines and devices: No nasogastric tube identified in the lower thorax or in the upper abdomen. IMPRESSION: 1. No nasogastric tube identified in the lower thorax or in the upper abdomen. 2. Diffuse gaseous distention of colonic loops, with maximum diameter of 17 cm in the right upper quadrant, raising concern for sigmoid volvulus. This is not significantly changed compared to the prior CT exam of 07/28/18. 3. No evidence of intraperitoneal free air.
[2018-08-25] MEDS ORDERED: VITAMIN D400 INTLU GT (14:12)
[2018-08-25] MEDS ORDERED: ASCORBIC ACID500 MG GT (14:12)
[2018-08-25] MEDS ORDERED: FAMOTIDINE20 MG GT (14:12)
--- NOTE | 2018-08-25 14:45 | Diagnostic Imaging Report ---
EXAM: XR Abdomen, 2 Views CLINICAL HISTORY: TUBE PLCMT TECHNIQUE: Frontal view of the abdomen/pelvis with upright view of the abdomen. COMPARISON: Abdominal x-ray performed earlier on 08/25/18. FINDINGS: Intraperitoneal space: No free air. Gastrointestinal tract: Unchanged diffuse distention of colonic loops. Bones/joints: Unremarkable. Tubes, lines and devices: NG tube tip is not definitively identified. Small volume of oral contrast material is seen in the distal esophagus and proximal stomach. IMPRESSION: 1. NG tube tip is not definitively identified. Small volume of oral contrast material is seen in the distal esophagus and proximal stomach. 2. Unchanged diffuse distention of colonic loops.
[2018-08-25 15:00] VITALS: BP 134/61
[2018-08-25 16:00] VITALS: BP 132/61
[2018-08-25 16:15] LABS: ALANINE AMINOTRANSFERASE 27 U/L (12-78); ALBUMIN 2.9 G/DL (3.4-5.0); ALBUMIN/GLOBULIN RATIO 0.6 (1.0-2.7); ALKALINE PHOSPHATASE 262 U/L (46-116); ANION GAP 10 mmol/L (5-15); ASPARTATE AMINO TRANSFERASE 45 U/L (15-37); BILIRUBIN,TOTAL 0.5 MG/DL (0.2-1.0); BLOOD UREA NITROGEN 8 mg/dL (7-18); CALCIUM 9.5 MG/DL (8.5-10.1); CARBON DIOXIDE 30 MMOL/L (21-32); CHLORIDE 100 MMOL/L (98-107); CKMB < 0.5 NG/ML (0.0-3.6); CREATINE KINASE 53 U/L (26-308); CREATININE 0.4 MG/DL (0.55-1.30); POTASSIUM 2.8 MMOL/L (3.5-5.1); SODIUM 140 MMOL/L (136-145)
[2018-08-25 17:02] VITALS: BP 115/56
[2018-08-25 17:11] LABS: HEMATOCRIT 39.4 % (37.0-47.0); HEMOGLOBIN 13.2 G/DL (12.0-16.0); MEAN CORPUSCULAR VOLUME 100 FL (80-99); PLATELET COUNT 194 K/UL (150-450); RED BLOOD COUNT 3.95 M/UL (4.20-5.40); RED CELL DISTRIBUTION WIDTH 12.3 % (11.6-14.8); WHITE BLOOD COUNT 12.8 K/UL (4.8-10.8)
[2018-08-25] MEDS ORDERED: NS w/KCl 40mEq 1,000 ML IV SCH (17:15)
[2018-08-25] MEDS ORDERED: LEVOTHYROXINE75 MCG GT (17:24)
[2018-08-25] MEDS ORDERED: LOVENOX10 M4 SUBQ (17:24)
[2018-08-25] MEDS ORDERED: PHENYTOIN SODI200 MG GT (17:28)
[2018-08-25] MEDS ORDERED: LETROZOLE2.5 MG GT (17:28)
[2018-08-25] MEDS ORDERED: MONOJECT H100 UNIT/1 SQ (17:51)
[2018-08-25 17:58] VITALS: BP 126/65
[2018-08-25] MEDS ORDERED: IPRATROPIU0.2 MG/1 M HHN (18:00)
[2018-08-25] MEDS ORDERED: ALBUTEROL2.5 MG/3 M INH (18:00)
[2018-08-25 20:00] VITALS: BP 117/54
[2018-08-25] MEDS ORDERED: Morphine Sulfate 2mg/ml Inj IVP PRN (20:00)
[2018-08-25] MEDS ORDERED: Acetaminophen 650 MG SUPP RECTAL PRN (20:00)
[2018-08-25] MEDS ORDERED: Phenytoin Susp 100mg/4ml GT SCH (21:00)
[2018-08-25] MEDS ORDERED: levETIRAcetam 500mg/5ml Liquid GT SCH (21:00)
[2018-08-25] MEDS: D5 1/2NS w/KCl 40meq 1000ml 1,000 ML IV SCH (21:24)
[2018-08-25] MEDS: Heparin 5000 units/ml inj SUBQ SCH (21:27)
[2018-08-25] MEDS: levETIRAcetam 500mg/NS100ml IVPB SCH (22:05)
[2018-08-25] MEDS ORDERED: NS IVPB SCH (22:30)
[2018-08-25] MEDS ORDERED: PHENYTOIN IVPB SCH (22:30)
[2018-08-25] MEDS: Albuterol ud Inhalation HHN SCH (23:42)
[2018-08-26] VITALS: BP 107/48
[2018-08-26 04:00] VITALS: BP 116/57
[2018-08-26 04:27] LABS: BASOPHILS % (AUTO) 0.4 % (0.0-2.0); EOSINOPHILS % (AUTO) 1.1 % (0.0-3.0); HEMATOCRIT 34.8 % (37.0-47.0); HEMOGLOBIN 11.7 G/DL (12.0-16.0); LYMPHOCYTES % (AUTO) 15.6 % (20.0-45.0); MEAN CORPUSCULAR VOLUME 101 FL (80-99); NEUTROPHILS % (AUTO) 76.9 % (45.0-75.0); PLATELET COUNT 193 K/UL (150-450); RED BLOOD COUNT 3.46 M/UL (4.20-5.40); RED CELL DISTRIBUTION WIDTH 12.1 % (11.6-14.8); WHITE BLOOD COUNT 8.4 K/UL (4.8-10.8)
[2018-08-26 04:43] LABS: ANION GAP 7 mmol/L (5-15); BLOOD UREA NITROGEN 6 mg/dL (7-18); CALCIUM 9.1 MG/DL (8.5-10.1); CARBON DIOXIDE 31 MMOL/L (21-32); CHLORIDE 103 MMOL/L (98-107); CREATININE 0.6 MG/DL (0.55-1.30); SODIUM 141 MMOL/L (136-145)
[2018-08-26 04:58] LABS: POTASSIUM 2.7 MMOL/L (3.5-5.1)
[2018-08-26] MEDS: D5 1/2NS w/KCl 40meq 1000ml 1,000 ML IV SCH ×2 (05:01→17:09)
[2018-08-26] MEDS: Albuterol ud Inhalation HHN SCH ×3 (07:37→19:21)
[2018-08-26 08:00] VITALS: BP 112/53
--- NOTE | 2018-08-26 09:18 | Pulmonology Progress Note ---
Assessment/Plan Assessment/Plan Pulmonary Consulttaion Note HPI Patient with Chronic Ventilator Dependency, was brought in for evaluation of abnormal KUB x-ray Patient had x-ray done with Gastrografin previously which showed concerns of possible obstruction History of present illness is significantly limited patient herself is chronically debilitated not verbal has a tracheostomy and is vent dependent Given the abnormal imaging was sent for further evaluation Allergies: PEANUT PMH: Chronic Respiratory failure, ventilator dependant, previous CVA, Encephalopathy, Diabetes, HTN, COPD, Previous breast cancer All Other Systems: limited - Other than the ones mentioned in the history of present illness all others are reviewed however they do stay limited due to the patient's mental status Physical Exam Vital Signs Noted General Appearance: no apparent distress Head: normocephalic, atraumatic Eyes: bilateral eye PERRL ENT: normal pharynx, no angioedema Neck: supple, other - Tracheostomy in place Respiratory: lungs clear, normal breath sounds Cardiovascular #1: regular rate, rhythm Gastrointestinal: non tender, no hernia, other - Feeding tube in place Musculoskeletal: other - Chronically debilitated Neurologic: responsive - To physical stimuli Skin: other - Chronic ulcers Lymphatic: no adenopathy Impression: Primary Impression: Status post tracheostomy Chronic respiratory failure - ventilator dependent Hypokalemia Feeding tube dysfunction Bowel obstruction Previous CVA - Encephalopathy Diabetes HTN COPD Previous breast cancer Plan - GI investigation per Surgery/GI - Continue current Ventilator Settings - CXR - ABG - PPX - Monitor labs - IVF Labs Test 08/25/18 15:25 08/25/18 16:53 08/26/18 04:00 Sodium Level 140 MMOL/L (136-145) 141 MMOL/L (136-145) Potassium Level 2.8 MMOL/L (3.5-5.1) 2.7 MMOL/L (3.5-5.1) Chloride Level 100 MMOL/L (98-107) 103 MMOL/L (98-107) Carbon Dioxide Level 30 MMOL/L (21-32) 31 MMOL/L (21-32) Anion Gap 10 mmol/L (5-15) 7 mmol/L (5-15) Blood Urea Nitrogen 8 mg/dL (7-18) 6 mg/dL (7-18) Creatinine 0.4 MG/DL (0.55-1.30) 0.6 MG/DL (0.55-1.30) Estimat Glomerular Filtration Rate mL/min (>60) mL/min (>60) Glucose Level 104 MG/DL (74-106) 103 MG/DL (74-106) Calcium Level 9.5 MG/DL (8.5-10.1) 9.1 MG/DL (8.5-10.1) Total Bilirubin 0.5 MG/DL (0.2-1.0) Aspartate Amino Transf (AST/SGOT) 45 U/L (15-37) Alanine Aminotransferase (ALT/SGPT) 27 U/L (12-78) Alkaline Phosphatase 262 U/L (46-116) Total Creatine Kinase 53 U/L (26-308) Creatine Kinase MB < 0.5 NG/ML (0.0-3.6) Creatine Kinase MB Relative Index 0.9 Total Protein 7.8 G/DL (6.4-8.2) Albumin 2.9 G/DL (3.4-5.0) Globulin 4.9 g/dL Albumin/Globulin Ratio 0.6 (1.0-2.7) Lipase 46 U/L (73-393) White Blood Count 12.8 K/UL (4.8-10.8) 8.4 K/UL (4.8-10.8) Red Blood Count 3.95 M/UL (4.20-5.40) 3.46 M/UL (4.20-5.40) Hemoglobin 13.2 G/DL (12.0-16.0) 11.7 G/DL (12.0-16.0) Hematocrit 39.4 % (37.0-47.0) 34.8 % (37.0-47.0) Mean Corpuscular Volume 100 FL (80-99) 101 FL (80-99) Mean Corpuscular Hemoglobin 33.4 PG (27.0-31.0) 33.9 PG (27.0-31.0) Mean Corpuscular Hemoglobin Concent 33.4 G/DL (32.0-36.0) 33.7 G/DL (32.0-36.0) Red Cell Distribution Width 12.3 % (11.6-14.8) 12.1 % (11.6-14.8) Platelet Count 194 K/UL (150-450) 193 K/UL (150-450) Mean Platelet Volume 9.5 FL (6.5-10.1) 9.7 FL (6.5-10.1) Neutrophils (%) (Auto) % (45.0-75.0) 76.9 % (45.0-75.0) Lymphocytes (%) (Auto) % (20.0-45.0) 15.6 % (20.0-45.0) Monocytes (%) (Auto) % (1.0-10.0) 6.0 % (1.0-10.0) Eosinophils (%) (Auto) % (0.0-3.0) 1.1 % (0.0-3.0) Basophils (%) (Auto) % (0.0-2.0) 0.4 % (0.0-2.0) Differential Total Cells Counted 100 Neutrophils % (Manual) 90 % (45-75) Lymphocytes % (Manual) 3 % (20-45) Monocytes % (Manual) 4 % (1-10) Eosinophils % (Manual) 0 % (0-3) Basophils % (Manual) 0 % (0-2) Band Neutrophils 3 % (0-8) Platelet Estimate Adequate Platelet Morphology Normal Polychromasia 1+ Macrocytosis 1+ Rhythm Strip Diag. Results EP Interpretation: yes Rate: 80 Rhythm: no PVC's, no ectopy, other - Wide-complex Other X-Ray Diagnostic Results Other X-Ray Diagnostic Results : X-Ray ordered: KUB # of Views/Limited Vs Complete: 1 View Indication: Other - Tube placement EP Interpretation: Yes Interpretation: no dislocation, no soft tissue swelling, other - Large gaseous formation in the intestinal area, question volvulus oral contrast remains at the gastric area, Impression: Other - Consider obstruction Subjective ROS Limited/Unobtainable: Yes Allergies: Coded Allergies: PEANUT (Verified Allergy, Unknown, 09/22/16) Objective Last 24 Hour Vital Signs Date Time Temp Pulse Resp B/P (MAP) Pulse Ox O2 Delivery O2 Flow Rate FiO2 08/26/18 08:00 98.2 68 14 112/53 (72) 96 08/26/18 07:47 88 18 96 Mechanical Ventilator 40 08/26/18 07:37 74 19 100 Mechanical Ventilator 40 08/26/18 07:28 74 19 40 08/26/18 05:21 77 19 40 08/26/18 04:00 59 08/26/18 04:00 Mechanical Ventilator 08/26/18 04:00 98.0 71 12 116/57 (76) 100 08/26/18 04:00 40 08/26/18 03:23 74 13 40 08/26/18 01:07 68 12 40 08/26/18 00:00 98.2 71 20 107/48 (67) 100 08/26/18 00:00 40 08/26/18 00:00 69 08/26/18 00:00 Mechanical Ventilator 08/25/18 23:43 Mechanical Ventilator 60.0 40 08/25/18 23:43 Mechanical Ventilator 60.0 40 08/25/18 23:42 72 16 40 08/25/18 22:42 72 12 40 08/25/18 20:46 69 12 40 08/25/18 20:00 55 08/25/18 20:00 97.9 72 11 117/54 (75) 100 08/25/18 20:00 Mechanical Ventilator 08/25/18 18:47 83 16 40 08/25/18 18:47 83 16 Mechanical Ventilator 60.0 40 08/25/18 18:46 97.8 98 24 118/98 100 Trach Collar 40 08/25/18 18:00 Mechanical Ventilator 08/25/18 18:00 40 08/25/18 17:58 100.2 90 18 126/65 (85) 98 08/25/18 17:10 65 12 40 08/25/18 17:02 97.8 92 18 115/56 100 Trach Collar 40 08/25/18 16:00 97.4 92 18 132/61 100 Trach Collar 40 08/25/18 15:00 97.8 90 18 134/61 100 Trach Collar 40 08/25/18 13:20 61 15 40 08/25/18 11:41 97.8 77 12 132/59 100 Trach Collar 08/25/18 11:41 77 12 Trach Collar 100 08/25/18 11:15 63 15 40 08/25/18 10:56 98.6 75 20 130/58 95 Mechanical Ventilator Intake and Output 08/25/18 08/26/18 18:59 06:59 Intake Total 917 ml Output Total 200 ml Balance 717 ml Intake IV Total 917 ml Output Urine Total 200 ml # Bowel Movements 3 1 Laboratory Tests 08/25/18 15:25: Sodium Level 140, Potassium Level 2.8L, Chloride Level 100, Carbon Dioxide Level 30, Anion Gap 10, Blood Urea Nitrogen 8, Creatinine 0.4L, Estimat Glomerular Filtration Rate , Glucose Level 104, Calcium Level 9.5, Total Bilirubin 0.5, Aspartate Amino Transf (AST/SGOT) 45H, Alanine Aminotransferase ( ALT/SGPT) 27, Alkaline Phosphatase 262H, Total Creatine Kinase 53, Creatine Kinase MB < 0.5, Creatine Kinase MB Relative Index 0.9, Total Protein 7.8, Albumin 2.9L, Globulin 4.9, Albumin/Globulin Ratio 0.6L, Lipase 46L 08/25/18 16:53: White Blood Count 12.8H, Red Blood Count 3.95L, Hemoglobin 13.2, Hematocrit 39.4 , Mean Corpuscular Volume 100H, Mean Corpuscular Hemoglobin 33.4H, Mean Corpuscular Hemoglobin Concent 33.4, Red Cell Distribution Width 12.3, Platelet Count 194, Mean Platelet Volume 9.5, Neutrophils (%) (Auto) , Lymphocytes (%) ( Auto) , Monocytes (%) (Auto) , Eosinophils (%) (Auto) , Basophils (%) (Auto) , Differential Total Cells Counted 100, Neutrophils % (Manual) 90H, Lymphocytes % (Manual) 3L, Monocytes % (Manual) 4, Eosinophils % (Manual) 0, Basophils % ( Manual) 0, Band Neutrophils 3, Platelet Estimate Adequate, Platelet Morphology Normal, Polychromasia 1+, Macrocytosis 1+ 08/26/18 04:00: Sodium Level 141, Potassium Level 2.7*L, Chloride Level 103, Carbon Dioxide Level 31, Anion Gap 7, Blood Urea Nitrogen 6L, Creatinine 0.6, Estimat Glomerular Filtration Rate , Glucose Level 103, Calcium Level 9.1, White Blood Count 8.4, Red Blood Count 3.46L, Hemoglobin 11.7L, Hematocrit 34.8L, Mean Corpuscular Volume 101H, Mean Corpuscular Hemoglobin 33.9H, Mean Corpuscular Hemoglobin Concent 33.7, Red Cell Distribution Width 12.1, Platelet Count 193, Mean Platelet Volume 9.7, Neutrophils (%) (Auto) 76.9H, Lymphocytes (%) (Auto) 15.6L, Monocytes (%) (Auto) 6.0, Eosinophils (%) (Auto) 1.1, Basophils (%) (Auto ) 0.4 Current Medications Medications (Trade) Dose Ordered Sig/Boubacar Route PRN Reason Start Time Stop Time Status Last Admin Dose Admin Acetaminophen (Tylenol) 650 mg Q4H PRN RECTAL Fever/Headache/Mild Pain 08/25/18 20:00 09/24/18 19:59 Albuterol Sulfate (Proventil) 2.5 mg Q6HRT HHN 08/26/18 01:00 08/31/18 00:59 08/26/18 07:37 Barium Sulfate (Readi-Cat 2) 450 ml NOW PRN ORAL Radiology Procedure 08/25/18 11:15 08/27/18 11:15 Bisacodyl (Dulcolax) 10 mg DAILYPRN PRN RECTAL Constipation 08/25/18 20:00 09/24/18 19:59 Dextrose/ Electrolytes 1,000 ml @ 100 mls/hr Q10H IV 08/25/18 20:00 09/24/18 19:59 08/26/18 05:01 Heparin Sodium (Porcine) (Heparin 5000 units/ml) 5,000 units EVERY 12 HOURS SUBQ 08/25/18 21:00 09/24/18 20:59 08/25/18 21:27 Levetiracetam 100 ml @ 400 mls/hr Q12HR IVPB 08/25/18 21:00 09/24/18 20:59 08/25/18 22:05 Morphine Sulfate (Morphine Sulfate) 2 mg Q4H PRN IVP For Pain 08/25/18 20:00 09/01/18 19:59 Ondansetron HCl (Zofran) 4 mg Q6H PRN IVP Nausea & Vomiting 08/25/18 20:00 09/24/18 19:59 Pantoprazole (Protonix) 40 mg DAILY IVP 08/26/18 09:00 09/25/18 08:59 Phenytoin 100 mg/ Sodium Chloride 57 ml @ 114 mls/hr Q12HR IVPB 08/26/18 09:00 09/25/18 08:59 Potassium Chloride 100 ml @ 100 mls/hr Q1H IVPB 08/26/18 09:00 08/26/18 14:59 Eder Thayer MD Aug 26, 2018 09:18
[2018-08-26] MEDS ORDERED: Isovue-300 100ml vial INJ PRN (09:30)
[2018-08-26] MEDS: Pantoprazole Inj IVP SCH (09:49)
[2018-08-26] MEDS: levETIRAcetam 500mg/NS100ml IVPB SCH ×2 (09:49→20:44)
[2018-08-26] MEDS: Heparin 5000 units/ml inj SUBQ SCH ×2 (09:50→20:45)
[2018-08-26] MEDS: Phenytoin 100 MG in NS 55 ML IVPB SCH ×2 (10:56→21:59)
[2018-08-26 12:00] VITALS: BP 128/76
--- NOTE | 2018-08-26 13:35 | Consultation ---
History of Present Illness General Date patient seen: Aug 26, 2018 Chief Complaint: General Complaint Present Illness HPI 78 year old female admitted for abdominal distention and pain. KUB performed and concerns for obstruction. At time of admission not CT available. patient admitted for care and evaluation. surgery called to evaluate for possible bowel obstruction. patient seen, chart reviewed, patient examined. c/o abd pain and nausea. cannot recall flatus or BM Allergies: Coded Allergies: PEANUT (Verified Allergy, Unknown, 09/22/16) Medication History Scheduled Albuterol Sulfate* (Albuterol Sulfate Hhn*), 3 ML INH Q6H, (Reported) Ascorbic Acid* (Ascorbic Acid*), 500 MG GT DAILY, (Reported) Bisacodyl (Dulcolax), 10 MG RC PRN, (Reported) Docusate Sodium* (Docusate Sodium*), 100 MG GT DAILY, (Reported) Famotidine (Famotidine), 20 MG GT BID, (Reported) Ferrous Sulfate (Ferrous Sulfate), 330 MG GT DAILY, (Reported) Heparin Sodium,Porcine/Pf (Heparin 1,000 Unit/10 (100/ml)), 5,000 UNIT SQ Q12HR, (Reported) Ipratropium Goode 0.5MG/2.5ML (Ipratropium Goode 0.5MG/2.5ML), 0.5 MG HHN Q6H, (Reported) Letrozole (Letrozole), 2.5 MG GT DAILY, (Reported) Levetiracetam* (Levetiracetam*), 1,500 MG GT BID, (Reported) Levothyroxine Sodium* (Levothyroxine Sodium*), 75 MCG GT DAILY, (Reported) Multivitamin With Minerals (Multivitamins With Minerals*), 15 ML GT DAILY, ( Reported) Na Phos,M-B/Na Phos,Di-Ba* (Fleet Enema*), 133 ML RECTAL PRN, (Reported) Omeprazole (Omeprazole), 20 MG GT DAILY, (Reported) Phenytoin Sodium Extended (Phenytoin Sodium Extended), 200 MG GT BID, (Reported) Vitamin D (Vitamin D3), 400 UNITS GT DAILY, (Reported) Scheduled PRN Acetaminophen (Acetaminophen), 650 MG GT Q6H PRN for Prn Headache/Temp > 101, ( Reported) Magnesium Hydroxide (Milk of Magnesia), 30 ML GT DAILY PRN for Constipation, ( Reported) Discontinued Medications Cran/Vitc/Mannose/Inulin/Brom (Uti-Stat Liquid), 30 ML GT TWICE A DAY, (Reported ) Discontinued Reason: Therapy completed Enoxaparin* (Lovenox*), 40 MG SUBQ DAILY, (Reported) Discontinued Reason: Prescription changed Levothyroxine Sodium* (Levothyroxine Sodium*), 50 MCG GT DAILY, (Reported) Discontinued Reason: Prescription changed Lorazepam* (Ativan*), 1 MG ORAL EVERY 4 HOURS, (Reported) Discontinued Reason: Therapy completed Midodrine (Midodrine HCl), 5 MG GT TID, (Reported) Discontinued Reason: MD discontinued med Nitrofurantoin Monohyd/M-Cryst* (Macrobid 100 Mg*), 100 MG GT EVERY 12 HOURS Discontinued Reason: Therapy completed Ondansetron Hcl* (Zofran*), 4 MG GT Q6H PRN for Nausea & Vomiting, (Reported) Discontinued Reason: Therapy completed Phenytoin (Dilantin), 200 MG ORAL THREE TIMES A DAY, (Reported) Discontinued Reason: Prescription changed Polyethylene Glycol 3350* (Polyethylene Glycol 3350*), 17 GM ORAL DAILY, ( Reported) Discontinued Reason: Therapy completed Zinc Sulfate (Zinc Sulfate*), 220 MG GT DAILY, (Reported) Discontinued Reason: Therapy completed Patient History Limited by: medical condition History Provided By: Patient, Medical Record, PMD Healthcare decision maker Laura Bowling/ Daughter Resuscitation status Full Code Advanced Directive on File Past Medical/Surgical History Past Medical/Surgical History: (1) UTI (urinary tract infection) (2) Paroxysmal supraventricular tachycardia (3) Bradycardia (4) AV block, 2nd degree (5) Bowel obstruction (6) Feeding tube dysfunction (7) Hypophosphatemia (8) anoxic (9) Bacteremia (10) Aspiration pneumonia (11) Bacteremia due to Gram-negative bacteria (12) Cholecystostomy care (13) Septic shock (14) Chronic respiratory failure (15) CHF (congestive heart failure) (16) Respiratory distress (17) Seizure (18) Vegetative state (19) Hypokalemia (20) Acute and chronic respiratory failure (21) Anoxic brain damage syndrome (22) Feeding by G-tube (23) lives in SNF (24) Anoxic encephalopathy (25) Hypothyroidism (26) Seizure disorder (27) HTN (hypertension) (28) Ventilator dependence (29) H/O: CVA (cerebrovascular accident) (30) Dysphagia s/p PEG (31) Sepsis (32) Functional paraplegia Review of Systems All Other Systems: negative except mentioned in HPI Physical Exam General Appearance: no apparent distress Lines, tubes and drains: peripheral HEENT: mucous membranes moist Neck: normal inspection Respiratory/Chest: normal breath sounds Cardiovascular/Chest: regular rhythm Abdomen: soft, distended, tender Extremities: normal inspection Skin Exam: warm/dry Neurologic: alert Last 24 Hour Vital Signs Date Time Temp Pulse Resp B/P (MAP) Pulse Ox O2 Delivery O2 Flow Rate FiO2 08/26/18 13:12 85 16 98 Mechanical Ventilator 40 08/26/18 13:02 80 14 40 08/26/18 13:02 80 14 99 Mechanical Ventilator 40 08/26/18 11:12 65 14 40 08/26/18 09:27 67 15 40 08/26/18 08:01 67 08/26/18 08:00 Mechanical Ventilator 08/26/18 08:00 40 08/26/18 08:00 98.2 68 14 112/53 (72) 96 08/26/18 07:47 88 18 96 Mechanical Ventilator 40 08/26/18 07:37 74 19 100 Mechanical Ventilator 40 08/26/18 07:28 74 19 40 08/26/18 05:21 77 19 40 08/26/18 04:00 59 08/26/18 04:00 Mechanical Ventilator 08/26/18 04:00 98.0 71 12 116/57 (76) 100 08/26/18 04:00 40 08/26/18 03:23 74 13 40 08/26/18 01:07 68 12 40 08/26/18 00:00 98.2 71 20 107/48 (67) 100 08/26/18 00:00 40 08/26/18 00:00 69 08/26/18 00:00 Mechanical Ventilator 08/25/18 23:43 Mechanical Ventilator 60.0 40 08/25/18 23:43 Mechanical Ventilator 60.0 40 08/25/18 23:42 72 16 40 08/25/18 22:42 72 12 40 08/25/18 20:46 69 12 40 08/25/18 20:00 55 08/25/18 20:00 97.9 72 11 117/54 (75) 100 08/25/18 20:00 Mechanical Ventilator 08/25/18 18:47 83 16 40 08/25/18 18:47 83 16 Mechanical Ventilator 60.0 40 08/25/18 18:46 97.8 98 24 118/98 100 Trach Collar 40 08/25/18 18:00 Mechanical Ventilator 08/25/18 18:00 40 08/25/18 17:58 100.2 90 18 126/65 (85) 98 08/25/18 17:10 65 12 40 08/25/18 17:02 97.8 92 18 115/56 100 Trach Collar 40 08/25/18 16:00 97.4 92 18 132/61 100 Trach Collar 40 08/25/18 15:00 97.8 90 18 134/61 100 Trach Collar 40 Intake and Output 08/25/18 08/26/18 19:00 07:00 Intake Total 917 ml Output Total 200 ml Balance 717 ml Intake IV Total 917 ml Output Urine Total 200 ml # Bowel Movements 3 1 Laboratory Tests Test 08/25/18 15:25 08/25/18 16:53 08/26/18 04:00 Sodium Level 140 MMOL/L (136-145) 141 MMOL/L (136-145) Potassium Level 2.8 MMOL/L (3.5-5.1) L 2.7 MMOL/L (3.5-5.1) *L Chloride Level 100 MMOL/L (98-107) 103 MMOL/L (98-107) Carbon Dioxide Level 30 MMOL/L (21-32) 31 MMOL/L (21-32) Anion Gap 10 mmol/L (5-15) 7 mmol/L (5-15) Blood Urea Nitrogen 8 mg/dL (7-18) 6 mg/dL (7-18) L Creatinine 0.4 MG/DL (0.55-1.30) L 0.6 MG/DL (0.55-1.30) Estimat Glomerular Filtration Rate mL/min (>60) mL/min (>60) Glucose Level 104 MG/DL (74-106) 103 MG/DL (74-106) Calcium Level 9.5 MG/DL (8.5-10.1) 9.1 MG/DL (8.5-10.1) Total Bilirubin 0.5 MG/DL (0.2-1.0) Aspartate Amino Transf (AST/SGOT) 45 U/L (15-37) H Alanine Aminotransferase (ALT/SGPT) 27 U/L (12-78) Alkaline Phosphatase 262 U/L (46-116) H Total Creatine Kinase 53 U/L (26-308) Creatine Kinase MB < 0.5 NG/ML (0.0-3.6) Creatine Kinase MB Relative Index 0.9 Total Protein 7.8 G/DL (6.4-8.2) Albumin 2.9 G/DL (3.4-5.0) L Globulin 4.9 g/dL Albumin/Globulin Ratio 0.6 (1.0-2.7) L Lipase 46 U/L (73-393) L White Blood Count 12.8 K/UL (4.8-10.8) H 8.4 K/UL (4.8-10.8) Red Blood Count 3.95 M/UL (4.20-5.40) L 3.46 M/UL (4.20-5.40) L Hemoglobin 13.2 G/DL (12.0-16.0) 11.7 G/DL (12.0-16.0) L Hematocrit 39.4 % (37.0-47.0) 34.8 % (37.0-47.0) L Mean Corpuscular Volume 100 FL (80-99) H 101 FL (80-99) H Mean Corpuscular Hemoglobin 33.4 PG (27.0-31.0) H 33.9 PG (27.0-31.0) H Mean Corpuscular Hemoglobin Concent 33.4 G/DL (32.0-36.0) 33.7 G/DL (32.0-36.0) Red Cell Distribution Width 12.3 % (11.6-14.8) 12.1 % (11.6-14.8) Platelet Count 194 K/UL (150-450) 193 K/UL (150-450) Mean Platelet Volume 9.5 FL (6.5-10.1) 9.7 FL (6.5-10.1) Neutrophils (%) (Auto) % (45.0-75.0) 76.9 % (45.0-75.0) H Lymphocytes (%) (Auto) % (20.0-45.0) 15.6 % (20.0-45.0) L Monocytes (%) (Auto) % (1.0-10.0) 6.0 % (1.0-10.0) Eosinophils (%) (Auto) % (0.0-3.0) 1.1 % (0.0-3.0) Basophils (%) (Auto) % (0.0-2.0) 0.4 % (0.0-2.0) Differential Total Cells Counted 100 Neutrophils % (Manual) 90 % (45-75) H Lymphocytes % (Manual) 3 % (20-45) L Monocytes % (Manual) 4 % (1-10) Eosinophils % (Manual) 0 % (0-3) Basophils % (Manual) 0 % (0-2) Band Neutrophils 3 % (0-8) Platelet Estimate Adequate Platelet Morphology Normal Polychromasia 1+ Macrocytosis 1+ Height (Feet): 5 Height (Inches): 6.00 Weight (Pounds): 220 Medications Current Medications Medications (Trade) Dose Ordered Sig/Boubacar Route PRN Reason Start Time Stop Time Status Last Admin Dose Admin Acetaminophen (Tylenol) 650 mg Q4H PRN RECTAL Fever/Headache/Mild Pain 08/25/18 20:00 09/24/18 19:59 Albuterol Sulfate (Proventil) 2.5 mg Q6HRT HHN 08/26/18 01:00 08/31/18 00:59 08/26/18 13:02 Barium Sulfate (Readi-Cat 2) 450 ml NOW PRN ORAL Radiology Procedure 08/25/18 11:15 08/27/18 11:15 Barium Sulfate (Readi-Cat 2) 450 ml NOW PRN ORAL Radiology Procedure 08/26/18 09:30 08/28/18 09:29 Bisacodyl (Dulcolax) 10 mg DAILYPRN PRN RECTAL Constipation 08/25/18 20:00 09/24/18 19:59 Dextrose/ Electrolytes 1,000 ml @ 100 mls/hr Q10H IV 08/25/18 20:00 09/24/18 19:59 08/26/18 05:01 Heparin Sodium (Porcine) (Heparin 5000 units/ml) 5,000 units EVERY 12 HOURS SUBQ 08/25/18 21:00 09/24/18 20:59 08/26/18 09:50 Iopamidol (Isovue-300 100ml) 100 ml NOW PRN INJ Radiology Procedure 08/26/18 09:30 Levetiracetam 100 ml @ 400 mls/hr Q12HR IVPB 08/25/18 21:00 09/24/18 20:59 08/26/18 09:49 Morphine Sulfate (Morphine Sulfate) 2 mg Q4H PRN IVP For Pain 08/25/18 20:00 09/01/18 19:59 Ondansetron HCl (Zofran) 4 mg Q6H PRN IVP Nausea & Vomiting 08/25/18 20:00 09/24/18 19:59 Pantoprazole (Protonix) 40 mg DAILY IVP 08/26/18 09:00 09/25/18 08:59 08/26/18 09:49 Phenytoin 100 mg/ Sodium Chloride 57 ml @ 114 mls/hr Q12HR IVPB 08/26/18 09:00 09/25/18 08:59 08/26/18 10:56 Potassium Chloride 100 ml @ 100 mls/hr Q1H IVPB 08/26/18 09:00 08/26/18 14:59 08/26/18 13:14 Assessment/Plan Problem List: (1) Bowel obstruction Assessment & Plan: KUB :IMPRESSION: 1. No nasogastric tube identified in the lower thorax or in the upper abdomen. 2. Diffuse gaseous distention of colonic loops, with maximum diameter of 17 cm in the right upper quadrant, raising concern for sigmoid volvulus. This is not significantly changed compared to the prior CT exam of 07/28/18. 3. No evidence of intraperitoneal free air. CT ordered. possible concerns for sigmoid volvulus NPO IV fluids IV Abx appreciate GI input will follow with recs thank you ICD Codes: K56.609 - Unspecified intestinal obstruction, unspecified as to partial versus complete obstruction SNOMED: [id number] Heath Martell Aug 26, 2018 13:35
--- NOTE | 2018-08-26 14:08 | Cardiology Report ---
APPROVED REPORT EKG Measurement Heart [id number] Atrial fibrillation Right bundle branch block Abnormal ECG
--- NOTE | 2018-08-26 14:10 | Cardiology Report ---
APPROVED REPORT EKG Measurement Heart [id number] afib , RBBB
--- NOTE | 2018-08-26 15:35 | Consultation ---
Consult Note Consult Note HPI Patient was brought in for evaluation of abnormal KUB x-ray Patient had x-ray done with Gastrografin yesterday which showed concerns of possible obstruction History of present illness is significantly limited patient herself is chronically debilitated not verbal has a tracheostomy and is vent dependent There was no reports of vomiting patient did have a bowel movement this morning Given the abnormal imaging was sent for further evaluation Allergies: PEANUT (Verified Allergy, Unknown, 09/22/16) Past Medical History: No History, Except For Hx Hypertension: Yes Hx COPD: Yes Hx Diabetes: Yes Hx Cancer: Yes - Breast Hx Cerebrovascular Accident: Yes - Encephalpathy Hx Dementia: Yes Hx Seizures: Yes Hx Paralysis: Yes - CVA Hx Memory Loss: Yes Hx Concentration Difficulty: Yes Hx Speech Problem: Yes Hx Weakness: Yes Assessment/Plan Status post tracheostomy Hypokalemia Feeding tube dysfunction Bowel obstruction plan; K supplement check ua per pulmonary, GI Guero Hernandez MD Aug 26, 2018 15:35
[2018-08-26 16:00] VITALS: BP 134/68
--- NOTE | 2018-08-26 16:40 | Diagnostic Imaging Report ---
EXAM: CT Abdomen and Pelvis Without And With Intravenous Contrast CLINICAL HISTORY: ABD DIST TECHNIQUE: Axial computed tomography images of the abdomen and pelvis without contrast material in one or both body regions followed by contrast material and further imaging in one or both body regions. CTDI is 19.51 mGy and DLP is 958 mGy-cm. One or more of the following dose reduction techniques were used: automated exposure control, adjustment of the mA and/or kV according to patient size, use of iterative reconstruction technique. COMPARISON: No relevant prior studies available. FINDINGS: Lung bases: Mild infiltrates in the lung bases. Heart: Cardiomegaly. ABDOMEN: Liver: Mild fatty liver. Gallbladder and bile ducts: No calcified stones. No ductal dilation. Pancreas: Unremarkable. Spleen: Unremarkable. Adrenals: Unremarkable. Kidneys and ureters: Left renal cyst. Stomach and bowel: Colon is very redundant and difficult to run. Marked gaseous distention in the sigmoid colon. No obvious obstructive process. PELVIS: Appendix: Appendix not identified. Bladder: Unremarkable. Reproductive: Hysterectomy. ABDOMEN and PELVIS: Intraperitoneal space: Unremarkable. Bones/joints: No acute fracture. Soft tissues: Fat-containing ventral hernia. Nodular opacities in the anterior abdominal wall, could be from injections. There is a broader differential. Vasculature: Unremarkable. No abdominal aortic aneurysm. Lymph nodes: No enlarged lymph nodes. Tubes, lines and devices: Percutaneous G-tube. IMPRESSION: 1. Colon is very redundant and difficult to run. Marked gaseous distention in the sigmoid colon. No obvious obstructive process. Recommend Contrast enema if there is persistent clinical concern for volvulus. 2. Appendix not identified.
--- NOTE | 2018-08-26 19:30 | History and Physical Report ---
DATE OF ADMISSION: 08/25/2018 APPROXIMATE TIME: 8 a.m. CONSULTANTS: 1. Wilmer Cardenas M.D. 2. Heath Martell M.D. 3. Savi Rodriguez M.D. 4. Guero Hernandez M.D. CHIEF COMPLAINT: Possible small bowel obstruction. BRIEF HISTORY: This is a 78-year-old female from [facility] presents with possible small bowel obstruction, diagnosed in the ER, admitted to [facility] for further care. Currently, trach, vent, altered, lethargic in bed, nonverbal. REVIEW OF SYSTEMS: Unavailable. PAST MEDICAL HISTORY: Includes chronic respiratory failure, CHF, seizure, hypertension, and history of CVA. PAST SURGICAL HISTORY: Trach and G-tube. ALLERGIES: None. MEDICATIONS: Include pantoprazole, phenytoin, albuterol, heparin, levetiracetam, morphine, Zofran, and bisacodyl. SOCIAL HISTORY: No smoking. No alcohol. No intravenous drug abuse. FAMILY HISTORY: Noncontributory. PHYSICAL EXAMINATION: GENERAL: Trach, vent, altered, lethargic in bed, nonverbal. VITAL SIGNS: Temperature is 98, pulse 74, respirations 19, and blood pressure 116/57. CARDIOVASCULAR: No murmur. LUNGS: Poor air exchange. ABDOMEN: Bowel sounds distant. Soft. No guarding. No rigidity. No rebound. No distention. EXTREMITIES: No cyanosis, clubbing, or edema. NEUROLOGIC: The patient is flaccid in bed, not following directions. LABORATORY AND DIAGNOSTIC DATA: Labs at this time show initial white count 12.8, now is 8.4, hemoglobin and hematocrit 11/34, and platelets 193. BMP shows sodium 141, potassium 2.7, otherwise BMP is normal. Lipase 46. Albumin 2.9. ASSESSMENT: 1. Chronic respiratory failure. 2. Small bowel obstruction. 3. Hypertension. 4. CHF. 5. Seizure. 6. Malnutrition. 7. CVA. PLAN: dietary evaluation, PT evaluation, CBC and BMP in the morning, NPO, IV fluids. Pain control. Zofran p.r.n. Continue to follow the patient. Resume home medications. Juaquin Ramos D.O. DR: MARCELINO JOB#: [id number] CC:
--- NOTE | 2018-08-26 19:45 | Consultation ---
DATE OF CONSULTATION: 08/26/2018 CONSULTING PHYSICIAN: Wilmer Cardenas M.D. CHIEF COMPLAINT: Abdominal distention. HISTORY OF PRESENT ILLNESS: Most of the history as per chart. A 78-year-old female with multiple medical problems. The patient is on a vent with G-tube, was admitted to the hospital with abdominal distention and possible malfunctioning G-tube. PAST MEDICAL HISTORY: 1. Brain injury. 2. Coronary artery disease. 3. CHF. 4. UTI. 5. Diabetes. 6. Hypothyroidism. 7. Obesity. 8. Anemia. 9. Hyperlipidemia. 10. History of breast cancer. 11. Respiratory failure with trach. 12. Dysphagia with G-tube. 13. Chronic colonic ileus and constipation. PAST SURGICAL HISTORY: Tracheostomy. ALLERGIES: Peanut. MEDICATIONS: Please see medication reconciliation list. SOCIAL HISTORY: Currently [facility] a [facility]. No recent history of tobacco, alcohol, or drug abuse. FAMILY HISTORY: Noncontributory. REVIEW OF SYSTEMS: Unable to obtain. PHYSICAL EXAMINATION: VITAL SIGNS: Temperature is 98.2, pulse 68, respirations 14, and blood pressure 112/53. HEENT: Normocephalic and atraumatic. Mild pale conjunctivae. NECK: Supple. No evidence of lymphadenopathy. CARDIOVASCULAR: Tachycardic, regular rate. Plus S1 and S2. LUNGS: Decreased breath sounds at bilateral bases on supine exam. ABDOMEN: Soft. G-tube in place in the left upper quadrant. Abdomen is mildly distended, mildly tympanic to percussion. No rebound. No guarding. No peritoneal sign. EXTREMITIES: Bilateral lower extremity edema. LABORATORY DATA: White count is 8.4, hemoglobin 11.7, MCV 101 and platelets 193,000. Sodium is 141 and potassium 2.7. ASSESSMENT AND PLAN: This is a 78-year-old patient with numerous medical problems. From GI standpoint, concern with the location of the G-tube, colonic ileus, chronic constipation, questionable obstruction. Plan, order CT of the abdomen and pelvis with contrast to the G-tube to first locating the tip of the tube in the stomach, second to rule out the small bowel obstruction, colonic ileus or even volvulus. Keep the patient NPO for now. Replace the potassium, follow labs. I want to thank Dr. Juaquin Ramos for this kind referral. Wilmer Cardenas M.D. DR: MICHELLE JOB#: [id number] CC:
[2018-08-26 20:00] VITALS: BP 135/69
[2018-08-27] VITALS: BP 142/63
[2018-08-27] MEDS: Albuterol ud Inhalation HHN SCH ×3 (01:05→13:40)
[2018-08-27] MEDS: D5 1/2NS w/KCl 40meq 1000ml 1,000 ML IV SCH (03:24)
[2018-08-27 04:00] VITALS: BP 120/57
[2018-08-27 06:21] LABS: BASOPHILS % (AUTO) 0.4 % (0.0-2.0); EOSINOPHILS % (AUTO) 1.8 % (0.0-3.0); HEMATOCRIT 37.4 % (37.0-47.0); HEMOGLOBIN 12.6 G/DL (12.0-16.0); LYMPHOCYTES % (AUTO) 10.2 % (20.0-45.0); MEAN CORPUSCULAR VOLUME 100 FL (80-99); NEUTROPHILS % (AUTO) 80.6 % (45.0-75.0); PLATELET COUNT 163 K/UL (150-450); RED BLOOD COUNT 3.74 M/UL (4.20-5.40); RED CELL DISTRIBUTION WIDTH 12.3 % (11.6-14.8); WHITE BLOOD COUNT 7.2 K/UL (4.8-10.8)
[2018-08-27 06:23] LABS: ALANINE AMINOTRANSFERASE 28 U/L (12-78); ALBUMIN 2.4 G/DL (3.4-5.0); ALKALINE PHOSPHATASE 204 U/L (46-116); ASPARTATE AMINO TRANSFERASE 53 U/L (15-37); BILIRUBIN,DIRECT 0.2 MG/DL (0.0-0.3); BILIRUBIN,TOTAL 0.4 MG/DL (0.2-1.0)
[2018-08-27 06:45] LABS: ANION GAP 7 mmol/L (5-15); BLOOD UREA NITROGEN 5 mg/dL (7-18); CALCIUM 9.2 MG/DL (8.5-10.1); CARBON DIOXIDE 27 MMOL/L (21-32); CHLORIDE 103 MMOL/L (98-107); CREATININE 0.5 MG/DL (0.55-1.30); POTASSIUM 3.4 MMOL/L (3.5-5.1); SODIUM 137 MMOL/L (136-145)
--- NOTE | 2018-08-27 07:05 | General Progress Note ---
Assessment/Plan Problem List: (1) Status post tracheostomy ICD Codes: Z93.0 - Tracheostomy status SNOMED: 25230478, 566754987 (2) Functional paraplegia (3) Dysphagia s/p PEG (4) H/O: CVA (cerebrovascular accident) ICD Codes: Z86.73 - Personal history of transient ischemic attack (TIA), and cerebral infarction without residual deficits SNOMED: 072200495 (5) Ventilator dependence ICD Codes: Z99.11 - Dependence on respirator [ventilator] status SNOMED: 389735672 (6) HTN (hypertension) ICD Codes: I10 - Essential (primary) hypertension SNOMED: 04420415 (7) Seizure disorder ICD Codes: G40.909 - Epilepsy, unspecified, not intractable, without status epilepticus SNOMED: 500762187 (8) Hypothyroidism ICD Codes: E03.9 - Hypothyroidism, unspecified SNOMED: 24226266 (9) Anoxic encephalopathy ICD Codes: G93.1 - Anoxic brain damage, not elsewhere classified SNOMED: 490872124 (10) Feeding by G-tube ICD Codes: Z93.1 - Gastrostomy status SNOMED: 590449347, 626562359 (11) Hypokalemia ICD Codes: E87.6 - Hypokalemia SNOMED: 33911049 Assessment/Plan start GTF start colace and miralax sigmoid distention>>> correct K and mag daily exam bowel regimen fu Subjective ROS Limited/Unobtainable: No Allergies: Coded Allergies: PEANUT (Verified Allergy, Unknown, 09/22/16) Objective Last 24 Hour Vital Signs Date Time Temp Pulse Resp B/P (MAP) Pulse Ox O2 Delivery O2 Flow Rate FiO2 08/27/18 05:12 72 12 40 08/27/18 04:00 98.6 75 22 120/57 (78) 99 08/27/18 04:00 40 08/27/18 04:00 Mechanical Ventilator 08/27/18 04:00 63 08/27/18 02:45 89 14 40 08/27/18 01:06 82 13 100 Mechanical Ventilator 40 08/27/18 00:58 82 12 99 Mechanical Ventilator 40 08/27/18 00:58 82 12 40 08/27/18 00:00 Mechanical Ventilator 08/27/18 00:00 78 08/27/18 00:00 40 08/27/18 00:00 99.0 68 22 142/63 (89) 99 08/26/18 23:08 80 17 40 08/26/18 21:20 70 14 40 08/26/18 20:00 40 08/26/18 20:00 98.7 68 22 135/69 (91) 99 08/26/18 20:00 Mechanical Ventilator 08/26/18 20:00 69 08/26/18 19:20 79 20 100 Mechanical Ventilator 40 08/26/18 19:10 69 12 40 08/26/18 19:10 69 12 100 Mechanical Ventilator 40 08/26/18 16:57 75 08/26/18 16:30 67 12 40 08/26/18 16:00 40 08/26/18 16:00 98.9 72 22 134/68 (90) 99 08/26/18 16:00 Mechanical Ventilator 08/26/18 15:24 111 21 40 08/26/18 13:12 85 16 98 Mechanical Ventilator 40 08/26/18 13:02 80 14 40 08/26/18 13:02 80 14 99 Mechanical Ventilator 40 08/26/18 12:00 Mechanical Ventilator 08/26/18 12:00 98.6 85 13 128/76 (93) 100 08/26/18 12:00 40 08/26/18 11:53 74 08/26/18 11:12 65 14 40 08/26/18 09:27 67 15 40 08/26/18 08:01 67 08/26/18 08:00 Mechanical Ventilator 08/26/18 08:00 40 08/26/18 08:00 98.2 68 14 112/53 (72) 96 08/26/18 07:47 88 18 96 Mechanical Ventilator 40 08/26/18 07:37 74 19 100 Mechanical Ventilator 40 08/26/18 07:28 74 19 40 Intake and Output 08/26/18 08/27/18 19:00 07:00 Intake Total 442.000 ml 1207 ml Output Total 150 ml 400 ml Balance 292.000 ml 807 ml Intake IV Total 442.000 ml 1207 ml Output Urine Total 150 ml 400 ml # Bowel Movements 2 2 Laboratory Tests 08/26/18 16:50: Arterial Blood pH 7.430, Arterial Blood Partial Pressure CO2 45.5H, Arterial Blood Partial Pressure O2 83.4, Arterial Blood HCO3 29.6H, Arterial Blood Oxygen Saturation 95.9, Arterial Blood Base Excess 4.6H, Best Test Positive 08/27/18 04:00: White Blood Count 7.2, Red Blood Count 3.74L, Hemoglobin 12.6, Hematocrit 37.4, Mean Corpuscular Volume 100H, Mean Corpuscular Hemoglobin 33.6H, Mean Corpuscular Hemoglobin Concent 33.7, Red Cell Distribution Width 12.3, Platelet Count 163, Mean Platelet Volume 8.4, Neutrophils (%) (Auto) 80.6H, Lymphocytes ( %) (Auto) 10.2L, Monocytes (%) (Auto) 7.0, Eosinophils (%) (Auto) 1.8, Basophils (%) (Auto) 0.4, Sodium Level 137, Potassium Level 3.4L, Chloride Level 103, Carbon Dioxide Level 27, Anion Gap 7, Blood Urea Nitrogen 5L, Creatinine 0.5L, Estimat Glomerular Filtration Rate , Glucose Level 102, Uric Acid 4.8, Calcium Level 9.2, Phosphorus Level [Pending], Magnesium Level 1.7L, Total Bilirubin 0.4, Direct Bilirubin 0.2, Aspartate Amino Transf (AST/SGOT) 53H , Alanine Aminotransferase (ALT/SGPT) 28, Alkaline Phosphatase 204H, Pro-B-Type Natriuretic Peptide [Pending], Total Protein 8.3H, Albumin 2.4L Height (Feet): 5 Height (Inches): 6.00 Weight (Pounds): 220 General Appearance: lethargic EENT: normal ENT inspection Neck: supple Cardiovascular: normal rate Respiratory/Chest: decreased breath sounds Abdomen: soft, decreased bowel sounds, distended Extremities: non-tender Wilmer Cardenas MD Aug 27, 2018 07:05
[2018-08-27 08:00] VITALS: BP 131/61
--- NOTE | 2018-08-27 08:41 | General Progress Note ---
Assessment/Plan Problem List: (1) Bowel obstruction ICD Codes: K56.609 - Unspecified intestinal obstruction, unspecified as to partial versus complete obstruction SNOMED: 86990314 (2) Chronic respiratory failure ICD Codes: J96.10 - Chronic respiratory failure, unspecified whether with hypoxia or hypercapnia SNOMED: 87434177 (3) CHF (congestive heart failure) ICD Codes: I50.9 - Heart failure, unspecified SNOMED: 46124199 (4) Seizure ICD Codes: R56.9 - Unspecified convulsions SNOMED: 78420623 (5) Hypokalemia ICD Codes: E87.6 - Hypokalemia SNOMED: 29250706 (6) HTN (hypertension) ICD Codes: I10 - Essential (primary) hypertension SNOMED: 69739544 (7) H/O: CVA (cerebrovascular accident) ICD Codes: Z86.73 - Personal history of transient ischemic attack (TIA), and cerebral infarction without residual deficits SNOMED: 353386999 Status: unchanged Assessment/Plan vent gi/sx f/u cbc bmp am dc if clear Subjective Constitutional: Reports: weakness Allergies: Coded Allergies: PEANUT (Verified Allergy, Unknown, 09/22/16) All Systems: reviewed and negative except above Subjective trach vent altered Objective Last 24 Hour Vital Signs Date Time Temp Pulse Resp B/P (MAP) Pulse Ox O2 Delivery O2 Flow Rate FiO2 08/27/18 07:40 78 16 100 Mechanical Ventilator 40 08/27/18 07:33 78 12 99 Mechanical Ventilator 40 08/27/18 07:33 77 16 40 08/27/18 05:12 72 12 40 08/27/18 04:00 98.6 75 22 120/57 (78) 99 08/27/18 04:00 40 08/27/18 04:00 Mechanical Ventilator 08/27/18 04:00 63 08/27/18 02:45 89 14 40 08/27/18 01:06 82 13 100 Mechanical Ventilator 40 08/27/18 00:58 82 12 99 Mechanical Ventilator 40 08/27/18 00:58 82 12 40 08/27/18 00:00 Mechanical Ventilator 08/27/18 00:00 78 08/27/18 00:00 40 08/27/18 00:00 99.0 68 22 142/63 (89) 99 08/26/18 23:08 80 17 40 08/26/18 21:20 70 14 40 08/26/18 20:00 40 08/26/18 20:00 98.7 68 22 135/69 (91) 99 08/26/18 20:00 Mechanical Ventilator 08/26/18 20:00 69 08/26/18 19:20 79 20 100 Mechanical Ventilator 40 08/26/18 19:10 69 12 40 08/26/18 19:10 69 12 100 Mechanical Ventilator 40 08/26/18 16:57 75 08/26/18 16:30 67 12 40 08/26/18 16:00 40 08/26/18 16:00 98.9 72 22 134/68 (90) 99 08/26/18 16:00 Mechanical Ventilator 08/26/18 15:24 111 21 40 08/26/18 13:12 85 16 98 Mechanical Ventilator 40 08/26/18 13:02 80 14 40 08/26/18 13:02 80 14 99 Mechanical Ventilator 40 08/26/18 12:00 Mechanical Ventilator 08/26/18 12:00 98.6 85 13 128/76 (93) 100 08/26/18 12:00 40 08/26/18 11:53 74 08/26/18 11:12 65 14 40 08/26/18 09:27 67 15 40 Intake and Output 08/26/18 08/27/18 19:00 07:00 Intake Total 442.000 ml 1307 ml Output Total 150 ml 400 ml Balance 292.000 ml 907 ml Intake IV Total 442.000 ml 1307 ml Output Urine Total 150 ml 400 ml # Bowel Movements 2 2 Laboratory Tests 08/26/18 16:50: Arterial Blood pH 7.430, Arterial Blood Partial Pressure CO2 45.5H, Arterial Blood Partial Pressure O2 83.4, Arterial Blood HCO3 29.6H, Arterial Blood Oxygen Saturation 95.9, Arterial Blood Base Excess 4.6H, Best Test Positive 08/27/18 04:00: White Blood Count 7.2, Red Blood Count 3.74L, Hemoglobin 12.6, Hematocrit 37.4, Mean Corpuscular Volume 100H, Mean Corpuscular Hemoglobin 33.6H, Mean Corpuscular Hemoglobin Concent 33.7, Red Cell Distribution Width 12.3, Platelet Count 163, Mean Platelet Volume 8.4, Neutrophils (%) (Auto) 80.6H, Lymphocytes ( %) (Auto) 10.2L, Monocytes (%) (Auto) 7.0, Eosinophils (%) (Auto) 1.8, Basophils (%) (Auto) 0.4, Sodium Level 137, Potassium Level 3.4L, Chloride Level 103, Carbon Dioxide Level 27, Anion Gap 7, Blood Urea Nitrogen 5L, Creatinine 0.5L, Estimat Glomerular Filtration Rate , Glucose Level 102, Uric Acid 4.8, Calcium Level 9.2, Phosphorus Level 2.3L, Magnesium Level 1.7L, Total Bilirubin 0.4, Direct Bilirubin 0.2, Aspartate Amino Transf (AST/SGOT) 53H, Alanine Aminotransferase (ALT/SGPT) 28, Alkaline Phosphatase 204H, Pro-B-Type Natriuretic Peptide 521H, Total Protein 8.3H, Albumin 2.4L Height (Feet): 5 Height (Inches): 6.00 Weight (Pounds): 220 General Appearance: lethargic EENT: normal ENT inspection Neck: normal alignment Cardiovascular: normal peripheral pulses, normal rate, regular rhythm Respiratory/Chest: chest wall non-tender, lungs clear, normal breath sounds Abdomen: normal bowel sounds, non tender, soft Extremities: normal inspection Edema: no edema noted Arm (L), no edema noted Arm (R), no edema noted Leg (L), no edema noted Leg (R), no edema noted Pedal (L), no edema noted Pedal (R), no edema noted Generalized Neurologic: motor weakness Skin: normal pigmentation, warm/dry Juaquin Ramosg Aug 27, 2018 08:41
[2018-08-27] MEDS: Pantoprazole Inj IVP SCH (08:58)
[2018-08-27] MEDS: levETIRAcetam 500mg/NS100ml IVPB SCH (08:59)
[2018-08-27] MEDS: Docusate 100mg cap ORAL SCH ×2 (09:00→18:00)
[2018-08-27] MEDS ORDERED: Potassium Phosphate 30 MM in NS 275 ML IV SCH (09:00)
[2018-08-27] MEDS: Heparin 5000 units/ml inj SUBQ SCH (09:02)
[2018-08-27] MEDS ORDERED: D5 1/2NS w/KCl 40meq 1000ml 1,000 ML IV SCH (09:30)
[2018-08-27] MEDS: Phenytoin 100 MG in NS 55 ML IVPB SCH (09:39)
--- NOTE | 2018-08-27 11:21 | General Surgery Progress Note ---
General Surgery-Progress Note Subjective Additional Comments CT noted. abdominal exam improved. labs okay Objective Last 24 Hour Vital Signs Date Time Temp Pulse Resp B/P (MAP) Pulse Ox O2 Delivery O2 Flow Rate FiO2 08/27/18 09:02 75 16 40 08/27/18 08:00 40 08/27/18 08:00 Mechanical Ventilator 08/27/18 08:00 77 08/27/18 08:00 98.1 75 15 131/61 (84) 100 08/27/18 07:40 78 16 100 Mechanical Ventilator 40 08/27/18 07:33 78 12 99 Mechanical Ventilator 40 08/27/18 07:33 77 16 40 08/27/18 05:12 72 12 40 08/27/18 04:00 98.6 75 22 120/57 (78) 99 08/27/18 04:00 40 08/27/18 04:00 Mechanical Ventilator 08/27/18 04:00 63 08/27/18 02:45 89 14 40 08/27/18 01:06 82 13 100 Mechanical Ventilator 40 08/27/18 00:58 82 12 99 Mechanical Ventilator 40 08/27/18 00:58 82 12 40 08/27/18 00:00 Mechanical Ventilator 08/27/18 00:00 78 08/27/18 00:00 40 08/27/18 00:00 99.0 68 22 142/63 (89) 99 08/26/18 23:08 80 17 40 08/26/18 21:20 70 14 40 08/26/18 20:00 40 08/26/18 20:00 98.7 68 22 135/69 (91) 99 08/26/18 20:00 Mechanical Ventilator 08/26/18 20:00 69 08/26/18 19:20 79 20 100 Mechanical Ventilator 40 08/26/18 19:10 69 12 40 08/26/18 19:10 69 12 100 Mechanical Ventilator 40 08/26/18 16:57 75 08/26/18 16:30 67 12 40 08/26/18 16:00 40 08/26/18 16:00 98.9 72 22 134/68 (90) 99 08/26/18 16:00 Mechanical Ventilator 08/26/18 15:24 111 21 40 08/26/18 13:12 85 16 98 Mechanical Ventilator 40 08/26/18 13:02 80 14 40 08/26/18 13:02 80 14 99 Mechanical Ventilator 40 08/26/18 12:00 Mechanical Ventilator 08/26/18 12:00 98.6 85 13 128/76 (93) 100 08/26/18 12:00 40 08/26/18 11:53 74 I&O Intake and Output 08/26/18 08/27/18 18:59 06:59 Intake Total 342.000 ml 1307 ml Output Total 150 ml 400 ml Balance 192.000 ml 907 ml Intake IV Total 342.000 ml 1307 ml Output Urine Total 150 ml 400 ml # Bowel Movements 2 2 Drains: other Cardiovascular: RSR Respiratory: clear Abdomen: soft, distended, present bowel sounds Extremities: no cyanosis Laboratory Tests Test 08/26/18 16:50 08/27/18 04:00 Arterial Blood pH 7.430 (7.350-7.450) Arterial Blood Partial Pressure CO2 45.5 mmHg (35.0-45.0) H Arterial Blood Partial Pressure O2 83.4 mmHg (75.0-100.0) Arterial Blood HCO3 29.6 mmol/L (22.0-26.0) H Arterial Blood Oxygen Saturation 95.9 % (95-100) Arterial Blood Base Excess 4.6 (-2-2) H Best Test Positive White Blood Count 7.2 K/UL (4.8-10.8) Red Blood Count 3.74 M/UL (4.20-5.40) L Hemoglobin 12.6 G/DL (12.0-16.0) Hematocrit 37.4 % (37.0-47.0) Mean Corpuscular Volume 100 FL (80-99) H Mean Corpuscular Hemoglobin 33.6 PG (27.0-31.0) H Mean Corpuscular Hemoglobin Concent 33.7 G/DL (32.0-36.0) Red Cell Distribution Width 12.3 % (11.6-14.8) Platelet Count 163 K/UL (150-450) Mean Platelet Volume 8.4 FL (6.5-10.1) Neutrophils (%) (Auto) 80.6 % (45.0-75.0) H Lymphocytes (%) (Auto) 10.2 % (20.0-45.0) L Monocytes (%) (Auto) 7.0 % (1.0-10.0) Eosinophils (%) (Auto) 1.8 % (0.0-3.0) Basophils (%) (Auto) 0.4 % (0.0-2.0) Sodium Level 137 MMOL/L (136-145) Potassium Level 3.4 MMOL/L (3.5-5.1) L Chloride Level 103 MMOL/L (98-107) Carbon Dioxide Level 27 MMOL/L (21-32) Anion Gap 7 mmol/L (5-15) Blood Urea Nitrogen 5 mg/dL (7-18) L Creatinine 0.5 MG/DL (0.55-1.30) L Estimat Glomerular Filtration Rate mL/min (>60) Glucose Level 102 MG/DL (74-106) Uric Acid 4.8 MG/DL (2.6-7.2) Calcium Level 9.2 MG/DL (8.5-10.1) Phosphorus Level 2.3 MG/DL (2.5-4.9) L Magnesium Level 1.7 MG/DL (1.8-2.4) L Total Bilirubin 0.4 MG/DL (0.2-1.0) Direct Bilirubin 0.2 MG/DL (0.0-0.3) Aspartate Amino Transf (AST/SGOT) 53 U/L (15-37) H Alanine Aminotransferase (ALT/SGPT) 28 U/L (12-78) Alkaline Phosphatase 204 U/L (46-116) H Pro-B-Type Natriuretic Peptide 521 pg/mL (0-125) H Total Protein 8.3 G/DL (6.4-8.2) H Albumin 2.4 G/DL (3.4-5.0) L Plan Problems: (1) Bowel obstruction Assessment & Plan: KUB :IMPRESSION: 1. No nasogastric tube identified in the lower thorax or in the upper abdomen. 2. Diffuse gaseous distention of colonic loops, with maximum diameter of 17 cm in the right upper quadrant, raising concern for sigmoid volvulus. This is not significantly changed compared to the prior CT exam of 07/28/18. 3. No evidence of intraperitoneal free air. CT IMPRESSION: 1. Colon is very redundant and difficult to run. Marked gaseous distention in the sigmoid colon. No obvious obstructive process. Recommend Contrast enema if there is persistent clinical concern for volvulus. start tube feeds IV fluids IV Abx appreciate GI input follow with clinical exams will follow with recs thank you Heath Martell Aug 27, 2018 11:21
[2018-08-27 12:00] VITALS: BP 154/84
--- NOTE | 2018-08-27 13:10 | Nephrology Progress Note ---
Assessment/Plan Problem List: (1) Hypokalemia (2) Acute and chronic respiratory failure Assessment Status post tracheostomy Hypokalemia Feeding tube dysfunction Bowel obstruction Plan plan; K supplement check ua per pulmonary, GI Subjective ROS Limited/Unobtainable: Yes Objective Objective Last 24 Hour Vital Signs Date Time Temp Pulse Resp B/P (MAP) Pulse Ox O2 Delivery O2 Flow Rate FiO2 08/27/18 12:00 99.1 85 22 154/84 (107) 100 08/27/18 11:46 73 08/27/18 11:17 73 14 40 08/27/18 09:02 75 16 40 08/27/18 08:00 40 08/27/18 08:00 Mechanical Ventilator 08/27/18 08:00 77 08/27/18 08:00 98.1 75 15 131/61 (84) 100 08/27/18 07:40 78 16 100 Mechanical Ventilator 40 08/27/18 07:33 78 12 99 Mechanical Ventilator 40 08/27/18 07:33 77 16 40 08/27/18 05:12 72 12 40 08/27/18 04:00 98.6 75 22 120/57 (78) 99 08/27/18 04:00 40 08/27/18 04:00 Mechanical Ventilator 08/27/18 04:00 63 08/27/18 02:45 89 14 40 08/27/18 01:06 82 13 100 Mechanical Ventilator 40 08/27/18 00:58 82 12 99 Mechanical Ventilator 40 08/27/18 00:58 82 12 40 08/27/18 00:00 Mechanical Ventilator 08/27/18 00:00 78 08/27/18 00:00 40 08/27/18 00:00 99.0 68 22 142/63 (89) 99 08/26/18 23:08 80 17 40 08/26/18 21:20 70 14 40 08/26/18 20:00 40 08/26/18 20:00 98.7 68 22 135/69 (91) 99 08/26/18 20:00 Mechanical Ventilator 08/26/18 20:00 69 08/26/18 19:20 79 20 100 Mechanical Ventilator 40 08/26/18 19:10 69 12 40 08/26/18 19:10 69 12 100 Mechanical Ventilator 40 08/26/18 16:57 75 12/23/18 16:30 67 12 40 08/26/18 16:00 40 08/26/18 16:00 98.9 72 22 134/68 (90) 99 08/26/18 16:00 Mechanical Ventilator 08/26/18 15:24 111 21 40 08/26/18 13:12 85 16 98 Mechanical Ventilator 40 Intake and Output 08/26/18 08/27/18 18:59 06:59 Intake Total 342.000 ml 1307 ml Output Total 150 ml 400 ml Balance 192.000 ml 907 ml Intake IV Total 342.000 ml 1307 ml Output Urine Total 150 ml 400 ml # Bowel Movements 2 2 Laboratory Tests 08/26/18 16:50: Arterial Blood pH 7.430, Arterial Blood Partial Pressure CO2 45.5H, Arterial Blood Partial Pressure O2 83.4, Arterial Blood HCO3 29.6H, Arterial Blood Oxygen Saturation 95.9, Arterial Blood Base Excess 4.6H, Best Test Positive 08/27/18 04:00: White Blood Count 7.2, Red Blood Count 3.74L, Hemoglobin 12.6, Hematocrit 37.4, Mean Corpuscular Volume 100H, Mean Corpuscular Hemoglobin 33.6H, Mean Corpuscular Hemoglobin Concent 33.7, Red Cell Distribution Width 12.3, Platelet Count 163, Mean Platelet Volume 8.4, Neutrophils (%) (Auto) 80.6H, Lymphocytes ( %) (Auto) 10.2L, Monocytes (%) (Auto) 7.0, Eosinophils (%) (Auto) 1.8, Basophils (%) (Auto) 0.4, Sodium Level 137, Potassium Level 3.4L, Chloride Level 103, Carbon Dioxide Level 27, Anion Gap 7, Blood Urea Nitrogen 5L, Creatinine 0.5L, Estimat Glomerular Filtration Rate , Glucose Level 102, Uric Acid 4.8, Calcium Level 9.2, Phosphorus Level 2.3L, Magnesium Level 1.7L, Total Bilirubin 0.4, Direct Bilirubin 0.2, Aspartate Amino Transf (AST/SGOT) 53H, Alanine Aminotransferase (ALT/SGPT) 28, Alkaline Phosphatase 204H, Pro-B-Type Natriuretic Peptide 521H, Total Protein 8.3H, Albumin 2.4L Height (Feet): 5 Height (Inches): 6.00 Weight (Pounds): 220 General Appearance: no apparent distress EENT: other - trach Cardiovascular: normal rate Respiratory/Chest: decreased breath sounds Abdomen: distended Guero Hernandez MD Aug 27, 2018 13:10
--- NOTE | 2018-08-27 15:20 | Pulmonology Progress Note ---
Assessment/Plan Assessment/Plan Pulmonary Consulttaion Note HPI Patient with Chronic Ventilator Dependency, was brought in for evaluation of abnormal KUB x-ray Patient had x-ray done with Gastrografin previously which showed concerns of possible obstruction History of present illness is significantly limited patient herself is chronically debilitated not verbal has a tracheostomy and is vent dependent Given the abnormal imaging was sent for further evaluation Allergies: PEANUT PMH: Chronic Respiratory failure, ventilator dependant, previous CVA, Encephalopathy, Diabetes, HTN, COPD, Previous breast cancer All Other Systems: limited - Other than the ones mentioned in the history of present illness all others are reviewed however they do stay limited due to the patient's mental status Physical Exam Vital Signs Noted General Appearance: no apparent distress Head: normocephalic, atraumatic Eyes: bilateral eye PERRL ENT: normal pharynx, no angioedema Neck: supple, other - Tracheostomy in place Respiratory: lungs clear, normal breath sounds Cardiovascular #1: regular rate, rhythm Gastrointestinal: non tender, no hernia, other - Feeding tube in place Musculoskeletal: other - Chronically debilitated Neurologic: responsive - To physical stimuli Skin: other - Chronic ulcers Lymphatic: no adenopathy Impression: Primary Impression: Status post tracheostomy Chronic respiratory failure - ventilator dependent Hypokalemia Feeding tube dysfunction Bowel obstruction Previous CVA - Encephalopathy Diabetes HTN COPD Previous breast cancer Plan - GI investigation per Surgery/GI - Continue current Ventilator Settings - CXR - ABG - PPX - Monitor labs - IVF Labs Test 08/25/18 15:25 08/25/18 16:53 08/26/18 04:00 Sodium Level 140 MMOL/L (136-145) 141 MMOL/L (136-145) Potassium Level 2.8 MMOL/L (3.5-5.1) 2.7 MMOL/L (3.5-5.1) Chloride Level 100 MMOL/L (98-107) 103 MMOL/L (98-107) Carbon Dioxide Level 30 MMOL/L (21-32) 31 MMOL/L (21-32) Anion Gap 10 mmol/L (5-15) 7 mmol/L (5-15) Blood Urea Nitrogen 8 mg/dL (7-18) 6 mg/dL (7-18) Creatinine 0.4 MG/DL (0.55-1.30) 0.6 MG/DL (0.55-1.30) Estimat Glomerular Filtration Rate mL/min (>60) mL/min (>60) Glucose Level 104 MG/DL (74-106) 103 MG/DL (74-106) Calcium Level 9.5 MG/DL (8.5-10.1) 9.1 MG/DL (8.5-10.1) Total Bilirubin 0.5 MG/DL (0.2-1.0) Aspartate Amino Transf (AST/SGOT) 45 U/L (15-37) Alanine Aminotransferase (ALT/SGPT) 27 U/L (12-78) Alkaline Phosphatase 262 U/L (46-116) Total Creatine Kinase 53 U/L (26-308) Creatine Kinase MB < 0.5 NG/ML (0.0-3.6) Creatine Kinase MB Relative Index 0.9 Total Protein 7.8 G/DL (6.4-8.2) Albumin 2.9 G/DL (3.4-5.0) Globulin 4.9 g/dL Albumin/Globulin Ratio 0.6 (1.0-2.7) Lipase 46 U/L (73-393) White Blood Count 12.8 K/UL (4.8-10.8) 8.4 K/UL (4.8-10.8) Red Blood Count 3.95 M/UL (4.20-5.40) 3.46 M/UL (4.20-5.40) Hemoglobin 13.2 G/DL (12.0-16.0) 11.7 G/DL (12.0-16.0) Hematocrit 39.4 % (37.0-47.0) 34.8 % (37.0-47.0) Mean Corpuscular Volume 100 FL (80-99) 101 FL (80-99) Mean Corpuscular Hemoglobin 33.4 PG (27.0-31.0) 33.9 PG (27.0-31.0) Mean Corpuscular Hemoglobin Concent 33.4 G/DL (32.0-36.0) 33.7 G/DL (32.0-36.0) Red Cell Distribution Width 12.3 % (11.6-14.8) 12.1 % (11.6-14.8) Platelet Count 194 K/UL (150-450) 193 K/UL (150-450) Mean Platelet Volume 9.5 FL (6.5-10.1) 9.7 FL (6.5-10.1) Neutrophils (%) (Auto) % (45.0-75.0) 76.9 % (45.0-75.0) Lymphocytes (%) (Auto) % (20.0-45.0) 15.6 % (20.0-45.0) Monocytes (%) (Auto) % (1.0-10.0) 6.0 % (1.0-10.0) Eosinophils (%) (Auto) % (0.0-3.0) 1.1 % (0.0-3.0) Basophils (%) (Auto) % (0.0-2.0) 0.4 % (0.0-2.0) Differential Total Cells Counted 100 Neutrophils % (Manual) 90 % (45-75) Lymphocytes % (Manual) 3 % (20-45) Monocytes % (Manual) 4 % (1-10) Eosinophils % (Manual) 0 % (0-3) Basophils % (Manual) 0 % (0-2) Band Neutrophils 3 % (0-8) Platelet Estimate Adequate Platelet Morphology Normal Polychromasia 1+ Macrocytosis 1+ Rhythm Strip Diag. Results EP Interpretation: yes Rate: 80 Rhythm: no PVC's, no ectopy, other - Wide-complex Other X-Ray Diagnostic Results Other X-Ray Diagnostic Results : X-Ray ordered: KUB # of Views/Limited Vs Complete: 1 View Indication: Other - Tube placement EP Interpretation: Yes Interpretation: no dislocation, no soft tissue swelling, other - Large gaseous formation in the intestinal area, question volvulus oral contrast remains at the gastric area, Impression: Other - Consider obstruction Subjective ROS Limited/Unobtainable: No Allergies: Coded Allergies: PEANUT (Verified Allergy, Unknown, 09/22/16) Objective Last 24 Hour Vital Signs Date Time Temp Pulse Resp B/P (MAP) Pulse Ox O2 Delivery O2 Flow Rate FiO2 08/27/18 15:07 74 14 40 08/27/18 13:40 79 16 100 Mechanical Ventilator 40 08/27/18 13:40 84 12 99 Mechanical Ventilator 40 08/27/18 13:40 76 14 40 08/27/18 12:00 99.1 85 22 154/84 (107) 100 08/27/18 11:46 73 08/27/18 11:17 73 14 40 08/27/18 09:02 75 16 40 08/27/18 08:00 40 08/27/18 08:00 Mechanical Ventilator 08/27/18 08:00 77 08/27/18 08:00 98.1 75 15 131/61 (84) 100 08/27/18 07:40 78 16 100 Mechanical Ventilator 40 08/27/18 07:33 78 12 99 Mechanical Ventilator 40 08/27/18 07:33 77 16 40 08/27/18 05:12 72 12 40 08/27/18 04:00 98.6 75 22 120/57 (78) 99 08/27/18 04:00 40 08/27/18 04:00 Mechanical Ventilator 08/27/18 04:00 63 08/27/18 02:45 89 14 40 08/27/18 01:06 82 13 100 Mechanical Ventilator 40 08/27/18 00:58 82 12 99 Mechanical Ventilator 40 08/27/18 00:58 82 12 40 08/27/18 00:00 Mechanical Ventilator 08/27/18 00:00 78 08/27/18 00:00 40 08/27/18 00:00 99.0 68 22 142/63 (89) 99 08/26/18 23:08 80 17 40 08/26/18 21:20 70 14 40 08/26/18 20:00 40 08/26/18 20:00 98.7 68 22 135/69 (91) 99 08/26/18 20:00 Mechanical Ventilator 08/26/18 20:00 69 08/26/18 19:20 79 20 100 Mechanical Ventilator 40 08/26/18 19:10 69 12 40 08/26/18 19:10 69 12 100 Mechanical Ventilator 40 08/26/18 16:57 75 08/26/18 16:30 67 12 40 08/26/18 16:00 40 08/26/18 16:00 98.9 72 22 134/68 (90) 99 08/26/18 16:00 Mechanical Ventilator 08/26/18 15:24 111 21 40 Intake and Output 08/26/18 08/27/18 18:59 06:59 Intake Total 342.000 ml 1307 ml Output Total 150 ml 400 ml Balance 192.000 ml 907 ml Intake IV Total 342.000 ml 1307 ml Output Urine Total 150 ml 400 ml # Bowel Movements 2 2 Microbiology Date/Time Source Procedure Growth Status 08/25/18 15:55 Nasal Nares MRSA Culture - Final NO METHICILLIN RESISTANT STAPH AUREUS... Complete 08/25/18 15:55 Rectum VRE Culture - Final Enterococcus Faecalis - Vre Complete 08/25/18 15:55 Rectum - Final NO CARBAPENEM-RESISTANT ENTEROBACTERI... Complete Laboratory Tests 08/26/18 16:50: Arterial Blood pH 7.430, Arterial Blood Partial Pressure CO2 45.5H, Arterial Blood Partial Pressure O2 83.4, Arterial Blood HCO3 29.6H, Arterial Blood Oxygen Saturation 95.9, Arterial Blood Base Excess 4.6H, Best Test Positive 08/27/18 04:00: White Blood Count 7.2, Red Blood Count 3.74L, Hemoglobin 12.6, Hematocrit 37.4, Mean Corpuscular Volume 100H, Mean Corpuscular Hemoglobin 33.6H, Mean Corpuscular Hemoglobin Concent 33.7, Red Cell Distribution Width 12.3, Platelet Count 163, Mean Platelet Volume 8.4, Neutrophils (%) (Auto) 80.6H, Lymphocytes ( %) (Auto) 10.2L, Monocytes (%) (Auto) 7.0, Eosinophils (%) (Auto) 1.8, Basophils (%) (Auto) 0.4, Sodium Level 137, Potassium Level 3.4L, Chloride Level 103, Carbon Dioxide Level 27, Anion Gap 7, Blood Urea Nitrogen 5L, Creatinine 0.5L, Estimat Glomerular Filtration Rate , Glucose Level 102, Uric Acid 4.8, Calcium Level 9.2, Phosphorus Level 2.3L, Magnesium Level 1.7L, Total Bilirubin 0.4, Direct Bilirubin 0.2, Aspartate Amino Transf (AST/SGOT) 53H, Alanine Aminotransferase (ALT/SGPT) 28, Alkaline Phosphatase 204H, Pro-B-Type Natriuretic Peptide 521H, Total Protein 8.3H, Albumin 2.4L Current Medications Medications (Trade) Dose Ordered Sig/Boubacar Route PRN Reason Start Time Stop Time Status Last Admin Dose Admin Acetaminophen (Tylenol) 650 mg Q4H PRN RECTAL Fever/Headache/Mild Pain 08/25/18 20:00 09/24/18 19:59 Albuterol Sulfate (Proventil) 2.5 mg Q6HRT HHN 08/26/18 01:00 08/31/18 00:59 08/27/18 13:40 Barium Sulfate (Readi-Cat 2) 450 ml NOW PRN ORAL Radiology Procedure 08/26/18 09:30 08/28/18 09:29 Bisacodyl (Dulcolax) 10 mg DAILYPRN PRN RECTAL Constipation 08/25/18 20:00 09/24/18 19:59 Docusate Sodium (Colace) 100 mg TWICE A DAY ORAL 08/27/18 09:00 09/26/18 08:59 08/27/18 09:00 Heparin Sodium (Porcine) (Heparin 5000 units/ml) 5,000 units EVERY 12 HOURS SUBQ 08/25/18 21:00 09/24/18 20:59 08/27/18 09:02 Iopamidol (Isovue-300 100ml) 100 ml NOW PRN INJ Radiology Procedure 08/26/18 09:30 Levetiracetam 100 ml @ 400 mls/hr Q12HR IVPB 08/25/18 21:00 09/24/18 20:59 08/27/18 08:59 Morphine Sulfate (Morphine Sulfate) 2 mg Q4H PRN IVP For Pain 08/25/18 20:00 09/01/18 19:59 Ondansetron HCl (Zofran) 4 mg Q6H PRN IVP Nausea & Vomiting 08/25/18 20:00 09/24/18 19:59 Pantoprazole (Protonix) 40 mg DAILY IVP 08/26/18 09:00 09/25/18 08:59 08/27/18 08:58 Phenytoin 100 mg/ Sodium Chloride 57 ml @ 114 mls/hr Q12HR IVPB 08/26/18 09:00 09/25/18 08:59 08/27/18 09:39 Polyethylene Glycol (Miralax) 17 gm BEDTIME ORAL 08/27/18 21:00 09/26/18 20:59 Eder Thayer MD Aug 27, 2018 15:20
--- NOTE | 2018-08-27 15:57 | Diagnostic Imaging Report ---
Indication: Shortness of breath Technique: One view of the chest Comparison: 03/16/2018 Findings: Tracheostomy is again demonstrated. The heart is borderline enlarged. There are questionable mild interstitial congestive changes. Impression: Cardiomegaly. Questionable mild interstitial edema Tracheostomy This agrees with the preliminary interpretation provided overnight by [facility] teleradiology service.
[2018-08-27 16:00] VITALS: BP 137/65
[2018-08-27 20:00] VITALS: BP 157/60
[2018-08-27] MEDS ORDERED: Miralax 17gm pkt ORAL SCH (21:00)
--- NOTE | 2018-08-28 12:13 | Discharge Summary ---
Discharge Summary Discharge Summary _ DATE OF ADMISSION: 08/25/2018 DATE OF DISCHARGE: 08/27/2018 DISCHARGED BY: Dr. Ramos REASON FOR ADMISSION: 78 years old female with past medical history of chronic respiratory failure, ventilator dependent, with tracheostomy, seizure disorder , dysphagia, G-tube, history of CVA, hypertension, congestive heart failure, lethargic , nonverbal, bedridden, presented to emergency department from the subacute facility for evaluation. Patient apparently had abnormal x-ray with a Gastrografin, done the day prior to presentation to ED, which which showed possible bowel obstruction. On evaluation in the ED vital signs were stable. Laboratory workup revealed potassium 2.8 Mild leukocytosis , WBC 12.8. Hemoglobin 13.2 hematocrit 29.4. Abdominal x-ray revealed diffuse gaseous distention of colonic loops with maximum diameter of 17 cm in the right upper quadrant, raising concern of sigmoid volvulus. No significant changes, compared to the prior CT exam of . No evidence of intraperitoneal free air. Pateitn admitetd with diagnoses of possible bowel obstruction, hypokalemia, chronic respiratory failure, possible feeding tube dysfunction. CONSULTANTS: pulmonary Dr. Thayer GI specialist Dr. Cardenas inorganic chemistry professor Dr. Hernandez surgery [facility] COURSE: Patient admitted to direct observational unit. Ventilator support and tracheostomy care provided. ABG was stable on current settings. No signs of respiratory distress. Chest x-ray revealed cardiomegaly, questionable mild interstitial edema and tracheostomy. GI specialist closely followed due to concern of the location of the G-tube, colonic ileus, chronic constipation and questionable bowel obstruction. CT of the abdomen and pelvis was ordered with contrast was ordered to locate the tip of the G-tube in the stomach and rule out small bowel obstruction, colonic ileus or volvulus . Patient initially kept n.p.o. Patient was on the IV hydration. Renal parameters and electrolytes were closely monitored. Electrolytes corrected as needed, and nephrotoxins were avoided. CT of the abdomen and pelvis revealed marked gaseous distention of the sigmoid colon. No obvious obstructive process. Surgeon closely followed and after reviewing CT scan, recommended to slowly start tube feeding as tolerated, monitor tolerance and continue with IV fluids for now . No surgical intervention was necessary at this time. GI specialist concurred with starting of tube feeding. Strict aspiration and reflux precautions were maintained. Bowel regimen instituted. GI prophylaxis provided. Antiemetics are on board as needed. Patient was able to tolerate tube feeding. Seizure precautions were maintained. Dilantin continued. No evidence of seizure activity while in the hospital. Blood pressure was closely monitored remained stable. No evidence of CHF exacerbation. Blood sugar was closely monitored , stable. Patient clinically stabilized , tolerated tube feeding , and was ready for transfer back to [facility] facility for continuation of care. FINAL DIAGNOSES: Possible bowel obstruction Hypokalemia Chronic respiratory failure ,ventilator dependent with tracheostomy status Dysphagia ,G-tube feeding Functional paraplegia Seizure disorder Anoxic encephalopathy COPD Diabetes mellitus Hypertension Congestive heart failure History of CVA DISCHARGE MEDICATIONS: List of medication was sent to accepting facility DISCHARGE INSTRUCTIONS: Patient was discharged to the [facility] facility. Follow up with medical doctor at the facility. I have been assigned to dictate discharge summary for this account. I was not involved in the patient's management. Libby Collins NP Aug 28, 2018 12:13
== END 2018-08-27 20:20 | DRG 388 ==
LOC: EDBD 10:56 → EMR 11:28 → EDBEDREQ 14:27 → 2W 15:20 → EDBEDREQ 16:02 → 2W 18:42
PROC: 5A1945Z Respiratory Ventilation, 24-96 Consecutive Hours (ICD-10-PCS; principal; 2018-08-25)
DX: K56.609 Unspecified intestinal obstruction, unspecified as to partial versus complete obstruction (principal); R53.2 Functional quadriplegia; J96.10 Chronic respiratory failure, unspecified whether with hypoxia or hypercapnia; Z99.11 Dependence on respirator [ventilator] status; Z43.1 Encounter for attention to gastrostomy; G93.1 Anoxic brain damage, not elsewhere classified; E87.6 Hypokalemia; R13.10 Dysphagia, unspecified; Z43.0 Encounter for attention to tracheostomy; F44.4 Conversion disorder with motor symptom or deficit; G40.909 Epilepsy, unspecified, not intractable, without status epilepticus; J44.9 Chronic obstructive pulmonary disease, unspecified; E11.9 Type 2 diabetes mellitus without complications; I11.0 Hypertensive heart disease with heart failure; I50.9 Heart failure, unspecified; Z86.73 Personal history of transient ischemic attack (TIA), and cerebral infarction without residual deficits; I25.10 Atherosclerotic heart disease of native coronary artery without angina pectoris; E03.9 Hypothyroidism, unspecified; Z85.3 Personal history of malignant neoplasm of breast; E78.5 Hyperlipidemia, unspecified
CPT/HCPCS: 36415; 36600; 71045; 74018; 74176; 80048; 80053; 80076; 82550; 82553; 82803; 82962; 83690; 83735; 83880; 84100; 84550; 85007; 85025; 86140; 87081; 93005; 94002; 94003; 94640; 94664; 97803; 99285; J1165

== ENCOUNTER 2018-10-07 13:57 | Inpatient (IN) | payer OTHER, MEDICAID ==
[~2018-10-07] VITALS: Ht 160 cm; Wt 104.6 kg
[~2018-10-07 13:57] MED LIST changes: +ALBUTEROL2.5 MG/3 M INH; +ASCORBIC ACID500 MG GT; +IPRATROPIU0.2 MG/1 M HHN; +LEVOTHYROXINE75 MCG GT; +MONOJECT H100 UNIT/1 SQ; +PHENYTOIN SODI200 MG GT
[2018-10-07 14:44] LABS: APPEARANCE,URINE SLIGHTLY CLOUDY; BILIRUBIN, URINE NEGATIVE (NEGATIVE); GLUCOSE, URINE (UA) NEGATIVE (NEGATIVE); KETONES,URINE NEGATIVE (NEGATIVE); LEUKOCYTE ESTERASE ,URINE 3+ (NEGATIVE); NITRITE,URINE POSITIVE (NEGATIVE); PH,URINE 5 (4.5-8.0); PROTEIN,URINE 2+ (NEGATIVE); UROBILINOGEN,URINE 4 MG/DL (0.0-1.0)
[2018-10-07 14:53] LABS: HEMATOCRIT 37.5 % (37.0-47.0); HEMOGLOBIN 12.6 G/DL (12.0-16.0); MEAN CORPUSCULAR VOLUME 100 FL (80-99); PLATELET COUNT 132 K/UL (150-450); RED BLOOD COUNT 3.74 M/UL (4.20-5.40); RED CELL DISTRIBUTION WIDTH 13.3 % (11.6-14.8); WHITE BLOOD COUNT 10.9 K/UL (4.8-10.8)
[2018-10-07 14:55] LABS: COLOR,URINE YELLOW
[2018-10-07 14:59] VITALS: BP 114/73
--- NOTE | 2018-10-07 15:00 | NUR ---
ED Nurse Note: Pt. AAOx4.Non-verbal.Pt. brought in b ambulance from [facility] due to fever of 103. Per EMS. pt had an episode of vomiting. Pt. received unk dose of tylenol via g-tube. Pt. is vent dependent.
--- NOTE | 2018-10-07 15:05 | NUR ---
ED Nurse Note: pt brought in by [facility] from sn[facility], per EMS report, pt had vomiting episode x1, fever and diarrhea started today. pt AA&ox0, nonverbal, +trach, resp even and unlabored on vent, no vomiting noted at this time, abd obese and distended, soft, active BS except LLQ hypoactive, incontinent urine and bm, on bedrest, noted gtube. noted pus around gtube, ERMD notified. will cont monitor. RT at the bedside. pt on compliance monitor.
[2018-10-07 15:09] LABS: ANION GAP 10 mmol/L (5-15); BLOOD UREA NITROGEN 14 mg/dL (7-18); CALCIUM 9.1 MG/DL (8.5-10.1); CARBON DIOXIDE 24 MMOL/L (21-32); CHLORIDE 102 MMOL/L (98-107); CREATININE 0.6 MG/DL (0.55-1.30); POTASSIUM 3.4 MMOL/L (3.5-5.1); SODIUM 136 MMOL/L (136-145)
[2018-10-07] MEDS ORDERED: Cefepime HCl 1 GM in D5W 55 ML IVPB ONE (15:15)
[2018-10-07 15:24] LABS: ALANINE AMINOTRANSFERASE 58 U/L (12-78); ALBUMIN 2.7 G/DL (3.4-5.0); ALBUMIN/GLOBULIN RATIO 0.5 (1.0-2.7); ALKALINE PHOSPHATASE 264 U/L (46-116); ASPARTATE AMINO TRANSFERASE 69 U/L (15-37); BILIRUBIN,TOTAL 0.8 MG/DL (0.2-1.0); CKMB < 0.5 NG/ML (0.0-3.6); CREATINE KINASE 62 U/L (26-308)
[2018-10-07 16:00] VITALS: BP 128/57
--- NOTE | 2018-10-07 16:20 | NUR ---
ED Nurse Note: pt g-tube area noted with pus and redness, wound culture obtained per ERMD order and sent, cleaned with ns and applied new dressing, flushed g-tube. no residual return noted.
[2018-10-07 17:00] VITALS: BP 138/87
--- NOTE | 2018-10-07 17:00 | NUR ---
ED Nurse Note: pt cleaned and changed had diarrhea episode x1, ERMD notified.
[2018-10-07] MEDS ORDERED: Albuterol/Ipratropium 3ml neb HHN PRN (17:15)
[2018-10-07] MEDS ORDERED: LORazepam Inj 2mg/ml 1ml IV PRN (17:15)
[2018-10-07] MEDS ORDERED: Morphine Sulfate 4mg/ml Inj (IV/IM USE ONLY) IVP PRN (17:15)
[2018-10-07] MEDS ORDERED: Miralax 17gm pkt GT PRN (17:15)
--- NOTE | 2018-10-07 17:23 | Emergency Room Report ---
History of Present Illness General Chief Complaint: Fever Source: Patient Present Illness HPI 78-year-old female presents ED for evaluation. [facility] Reported fever 1 day. Vomiting. Also noted have diarrhea. Is nonverbal. Has trach and G-tube. Unable to provide any additional history at this time. No signs of distress. No other aggravating relieving factors. Denies any other associated symptoms Allergies: Coded Allergies: PEANUT (Verified Allergy, Unknown, 09/22/16) Patient History Past Medical History: DM, HTN, COPD, seizures Past Surgical History: other - Gtube Pertinent Family History: none Social History: Denies: smoking, alcohol use, drug use Now: No Immunizations: UTD Reviewed Nursing Documentation: PMH: Agreed; PSxH: Agreed Nursing Documentation-PMH Past Medical History: No History, Except For Hx Cardiac Problems: Yes - STEMI Hx Hypertension: Yes Hx Pacemaker: No Hx Asthma: No Hx COPD: Yes Hx Diabetes: Yes Hx Cancer: Yes Hx Gastrointestinal Problems: Yes - dysphagia, g-tube Hx Neurological Problems: Yes Hx Cerebrovascular Accident: Yes - Encephalpathy Hx Transient Ischemic Attacks: No Hx Dementia: Yes Hx Alzheimer's Disease: No Hx Parkinson's Disease: No Hx Meningitis: No Hx Seizures: Yes Hx Epilepsy: No Hx Multiple Sclerosis: No Hx Cerebral Palsy: No Hx Amyotrophic Lat Sclerosis: No Hx Guillian-Milton Syndrome: No Hx Paralysis: Yes - CVA Hx Peripheral Neuropathy: No Hx Spinal Cord Injury: No Hx Head Trauma: No Hx Traumatic Brain Injury: No Hx Memory Loss: Yes Hx Concentration Difficulty: Yes Hx Speech Problem: Yes Hx Tremors: No Hx Vertigo: No Hx Dizziness: No Hx Syncope: No Hx Headaches: No Hx Aphasia: No Hx Dysphasia: No Hx Weakness: Yes Hx Fatigue: No Hx Neurologic Surgery: No Hx Brain Shunt: No Review of Systems All Other Systems: limited Physical Exam Vital Signs Date Time Temp Pulse Resp B/P (MAP) Pulse Ox O2 Delivery O2 Flow Rate FiO2 10/07/18 13:58 120 22 116/56 98 Mechanical Ventilator 10/07/18 14:59 5.0 Sp02 EP Interpretation: reviewed, normal General Appearance: no apparent distress, obese, other - nonverbal Head: normocephalic Eyes: bilateral eye normal inspection, bilateral eye PERRL ENT: normal ENT inspection Neck: tracheotomy Respiratory: crackles Cardiovascular #1: no edema, tachycardia Gastrointestinal: normal bowel sounds, non tender, soft, non-distended, no guarding, no rebound Rectal: deferred Genitourinary: no CVA tenderness Musculoskeletal: normal inspection Neurologic: other - nonverbal Psychiatric: normal inspection Skin: normal inspection Lymphatic: normal inspection Medical Decision Making Diagnostic Impression: Primary Impression: Fever Qualified Codes: R50.9 - Fever, unspecified Additional Impressions: UTI (urinary tract infection) Qualified Codes: N39.0 - Urinary tract infection, site not specified Diarrhea Qualified Codes: R19.7 - Diarrhea, unspecified Anoxic encephalopathy ER Course Hospital Course 78 yo F presents to ED with fever, vomiting, diarrhea. from SNF Differential diagnoses include: Pneumonia, UTI, sepsis, dehydration, AK/ unstable angina Clinical course Patient placed on stretcher. On hospital monitor with stable vitals are ED course. After initial history and physical, I ordered labs, IV fluids, EKG, chest x-ray, blood cultures, UA. Labs - electrolytes ok, no leukocytosis, lactic acid ok, UA grossly positive for UTI EKG - NSR, no acute ischemic changes interpreted by me CXR - cardiomegaly, interstitial congestion C. difficile, stool cultures collected. IV fluids. Given antibiotics Case discussed with Dr Ramos and they agreed to admit patient to their service for further care and support I feel this is a highly complex case requiring extensive working including EKG/ Rhythm strip, Xray/CT/US, Blood/urine lab work, repeat exams while in ED, and administration of strong opiates/narcotics for pain control, admission to hospital or close patient follow up. Diagnosis - fever, UTI, diarrhea, anoxic encephalopathy Patient admitted to SDU in serious condition Labs Test 10/07/18 14:15 White Blood Count 10.9 K/UL (4.8-10.8) Red Blood Count 3.74 M/UL (4.20-5.40) Hemoglobin 12.6 G/DL (12.0-16.0) Hematocrit 37.5 % (37.0-47.0) Mean Corpuscular Volume 100 FL (80-99) Mean Corpuscular Hemoglobin 33.7 PG (27.0-31.0) Mean Corpuscular Hemoglobin Concent 33.6 G/DL (32.0-36.0) Red Cell Distribution Width 13.3 % (11.6-14.8) Platelet Count 132 K/UL (150-450) Mean Platelet Volume 10.4 FL (6.5-10.1) Neutrophils (%) (Auto) % (45.0-75.0) Lymphocytes (%) (Auto) % (20.0-45.0) Monocytes (%) (Auto) % (1.0-10.0) Eosinophils (%) (Auto) % (0.0-3.0) Basophils (%) (Auto) % (0.0-2.0) Differential Total Cells Counted 100 Neutrophils % (Manual) 84 % (45-75) Lymphocytes % (Manual) 12 % (20-45) Monocytes % (Manual) 2 % (1-10) Eosinophils % (Manual) 1 % (0-3) Basophils % (Manual) 1 % (0-2) Band Neutrophils 0 % (0-8) Platelet Estimate Adequate Platelet Morphology Normal Red Blood Cell Morphology Normal Urine Color Yellow Urine Appearance Slightly cloudy Urine pH 5 (4.5-8.0) Urine Specific Jakin 1.015 (1.005-1.035) Urine Protein 2+ (NEGATIVE) Urine Glucose (UA) Negative (NEGATIVE) Urine Ketones Negative (NEGATIVE) Urine Blood 2+ (NEGATIVE) Urine Nitrite Positive (NEGATIVE) Urine Bilirubin Negative (NEGATIVE) Urine Urobilinogen 4 MG/DL (0.0-1.0) Urine Leukocyte Esterase 3+ (NEGATIVE) Urine RBC 2-4 /HPF (0 - 2) Urine WBC 30-40 /HPF (0 - 2) Urine Squamous Epithelial Cells Few /LPF (NONE/OCC) Urine Bacteria Moderate /HPF (NONE) Sodium Level 136 MMOL/L (136-145) Potassium Level 3.4 MMOL/L (3.5-5.1) Chloride Level 102 MMOL/L (98-107) Carbon Dioxide Level 24 MMOL/L (21-32) Anion Gap 10 mmol/L (5-15) Blood Urea Nitrogen 14 mg/dL (7-18) Creatinine 0.6 MG/DL (0.55-1.30) Estimat Glomerular Filtration Rate mL/min (>60) Glucose Level 117 MG/DL (74-106) Lactic Acid Level 0.90 mmol/L (0.4-2.0) Calcium Level 9.1 MG/DL (8.5-10.1) Total Bilirubin 0.8 MG/DL (0.2-1.0) Aspartate Amino Transf (AST/SGOT) 69 U/L (15-37) Alanine Aminotransferase (ALT/SGPT) 58 U/L (12-78) Alkaline Phosphatase 264 U/L (46-116) Total Creatine Kinase 62 U/L (26-308) Creatine Kinase MB < 0.5 NG/ML (0.0-3.6) Creatine Kinase MB Relative Index 0.8 Troponin I 0.019 ng/mL (0.000-0.056) Pro-B-Type Natriuretic Peptide 1086 pg/mL (0-125) Total Protein 8.3 G/DL (6.4-8.2) Albumin 2.7 G/DL (3.4-5.0) Globulin 5.6 g/dL Albumin/Globulin Ratio 0.5 (1.0-2.7) EKG Diagnostic Results Rate: normal Rhythm: NSR ST Segments: no acute changes ASA given to the pt in ED: No Rhythm Strip Diag. Results EP Interpretation: yes Rhythm: NSR, no PVC's, no ectopy Chest X-Ray Diagnostic Results Chest X-Ray Diagnostic Results : Chest X-Ray Ordered: Yes # of Views/Limited/Complete: 1 View Indication: Other - fever EP Interpretation: Yes Interpretation: no consolidation, no pneumothorax, other - trach, interstitial congestion Impression: Other - cardiomegaly Electronically Signed by: Electronically signed by Mina Mckenzie MD Last Vital Signs Date Time Temp Pulse Resp B/P (MAP) Pulse Ox O2 Delivery O2 Flow Rate FiO2 10/07/18 14:59 98 22 114/73 98 Mechanical Ventilator 5.0 Status: improved Disposition: ADMITTED INPATIENT Condition: Serious Referrals: Juaquin Ramos DO (PCP) Mina Mckenzie MD Oct 07, 2018 17:23
[2018-10-07 18:30] VITALS: BP 138/70
--- NOTE | 2018-10-07 18:30 | NUR ---
ED Nurse Note: pt diarrhea episode x 1 cleaned and changed and turned, cdiff stool specimen sent. pt fever 101.9 rectal temp, ermd notified received order for tylenol.
[2018-10-07] MEDS ORDERED: Acetaminophen 650 MG SUPP RECTAL ONE ×2 (18:37→18:45)
--- NOTE | 2018-10-07 19:38 | NUR ---
ED Nurse Note: report given to CESAR Jay to continue care.
--- NOTE | 2018-10-07 19:43 | NUR ---
ED Nurse Note: REPORT GIVEN TO [facility].
[2018-10-07] MEDS ORDERED: Vancomycin 1.5gm/D5W 275ml IVPB SCH (20:00)
[2018-10-07 20:05] VITALS: BP 138/87
--- NOTE | 2018-10-07 20:08 | NUR ---
ED Nurse Note: pt was admitted to the hospital Addendum: 10/07/18 at 2021 by ALICIA ED Nurse Note: pt was admitted to the hospital. pt transfered to room 238. report given to ritesh farrell. pt was accompanied by rt and rn, and skin tanner upon transport.
[2018-10-07 20:30] VITALS: BP 91/53
--- NOTE | 2018-10-07 20:30 | NUR ---
NURSE NOTES: Received Patient from ER via tad accompanied by Deborah GUERRERO and viscera washer. Patient came from [facility] under the care of Dr. Juaquin Ramos with admitting diagnosis of Fever, Nausea, and Sepsis. Patient obtunded. Trach to vent no s/s of acute distress. Temp 101.7 Tylenol Supp was given in ER, will continue cooling measure. BP 91/[address] on the monitor. Body assessment done. GT intact no residual, with drainage around the GT site, culture collected from ER. No s/s moaning no facial grimaces. Seizure precaution done, Padded side rail. Dr. Rodriguez placed an order noted and carried out. Bed alarm on. Bed locked and in low position. Contact isolation maintained and observed. Will continue plan of care.
--- NOTE | 2018-10-07 21:06 | NUR ---
NURSE NOTES: Called Laura Bowling patient daughter and made aware of patient conditions, daughter verbalizes appreciation of notification.
[2018-10-07] MEDS: levETIRAcetam 500mg/5ml Liquid GT SCH (21:52)
[2018-10-07] MEDS: Heparin 5000 units/ml inj SUBQ SCH (21:53)
[2018-10-08] VITALS: BP 93/39
--- NOTE | 2018-10-08 | NUR ---
NURSE NOTES: Patient in bed resting, no s/s of acute distress noted. Temp 99.5 axillary, will continue cooling measure.
[2018-10-08 03:53] VITALS: BP 139/73
[2018-10-08 06:08] LABS: BASOPHILS % (AUTO) 0.4 % (0.0-2.0); EOSINOPHILS % (AUTO) 0.2 % (0.0-3.0); HEMATOCRIT 35.2 % (37.0-47.0); HEMOGLOBIN 11.8 G/DL (12.0-16.0); MEAN CORPUSCULAR VOLUME 101 FL (80-99); MONOCYTES % (AUTO) 8.3 % (1.0-10.0); NEUTROPHILS % (AUTO) 83.2 % (45.0-75.0); PLATELET COUNT 138 K/UL (150-450); RED BLOOD COUNT 3.49 M/UL (4.20-5.40); RED CELL DISTRIBUTION WIDTH 13.1 % (11.6-14.8); WHITE BLOOD COUNT 15.1 K/UL (4.8-10.8)
[2018-10-08 06:15] LABS: ALBUMIN 2.3 G/DL (3.4-5.0); ANION GAP 10 mmol/L (5-15); BLOOD UREA NITROGEN 16 mg/dL (7-18); CALCIUM 8.6 MG/DL (8.5-10.1); CARBON DIOXIDE 25 MMOL/L (21-32); CHLORIDE 105 MMOL/L (98-107); CREATININE 0.8 MG/DL (0.55-1.30); PHOSPHORUS 2.7 MG/DL (2.5-4.9); POTASSIUM 2.8 MMOL/L (3.5-5.1); SODIUM 140 MMOL/L (136-145)
--- NOTE | 2018-10-08 07:30 | NUR ---
HAND-OFF: Report given to CESAR Crawley. Called Dr. Rodriguez regarding potassium level 2.8 with new order Potassium 40Meq x1 noted and carried out. Endorsed to CESAR Crawley. Patient in bed no fever Temp 97.9 Axillary.
--- NOTE | 2018-10-08 07:31 | NUR ---
NURSE NOTES: RECEIVE PATIENT FROM Pily DAVIES, RN. PATIENT IS LYING IN BED, ASLEEP. HOOKED TO [employer] [employer]. TRACH TO VENT. PORTEX 8 WITH VENT SETTINGS SIMV 8, TV 600M, FIO2 35%, PEEP 5, PS 8. NO SIGNS OF RESPI OR CARDIO DISTRESS OF THE MOMENT. GT IN PLACE WITH GTF RUNNING JEVITY 1.2 AT 30CC/HR. ON [employer]. IV ON L UA G18, TKO. CALL LIGHT WITHIN REACH, BED AT LOWEST POSITION, SIDE RAILS UP. WILL CONTINUE TO MONITOR.
--- NOTE | 2018-10-08 07:38 | NUR ---
RESPIRATORY NOTE: receive pt on vent settings of SIMV 8 600 35% +5 with PS 8. pt is trached with porte 8 tube with no redness visible around stoma or neck site. no resp distress noted at this time. vent is plugged into red outlet with alarms on and audible. will cont to monitor
[2018-10-08 08:00] VITALS: BP 115/5
[2018-10-08] MEDS: Heparin 5000 units/ml inj SUBQ SCH ×2 (09:14→21:50)
[2018-10-08] MEDS: Pantoprazole Inj IV SCH (09:17)
[2018-10-08] MEDS: levETIRAcetam 500mg/5ml Liquid GT SCH ×2 (09:27→21:48)
--- NOTE | 2018-10-08 11:00 | Consultation ---
History of Present Illness General Date patient seen: Oct 08, 2018 Chief Complaint: Fever Reason for Consultation: Sepsis Present Illness HPI Ms. rodriguez is a 78 who was sent to the ED from her shelter 10/07/18 with fever and Vomiting. She was also reported to have diarrhea. She is not verbal vent dependent with PEG and trach. In the ED she was febrile to 102 and had a mild leukocytosis. Her UA was positive and she was noted to be congested on the CXR. ID consulted for Sepsis PMHx/PSHx Chronic respiratory failure CHF Seizures HTN CVA SocHx No E/T/D FamHx Unable to obtain as patient not verbal Allergies: Coded Allergies: PEANUT (Verified Allergy, Unknown, 09/22/16) Medication History Scheduled Albuterol Sulfate* (Albuterol Sulfate Hhn*), 3 ML INH Q6H, (Reported) Ascorbic Acid* (Ascorbic Acid*), 500 MG GT DAILY, (Reported) Bisacodyl (Dulcolax), 10 MG RC PRN, (Reported) Docusate Sodium* (Docusate Sodium*), 100 MG GT DAILY, (Reported) Famotidine (Famotidine), 20 MG GT BID, (Reported) Ferrous Sulfate (Ferrous Sulfate), 330 MG GT DAILY, (Reported) Heparin Sodium,Porcine/Pf (Heparin 1,000 Unit/10 (100/ml)), 5,000 UNIT SQ Q12HR, (Reported) Ipratropium [place] 0.5MG/2.5ML (Ipratropium [place] 0.5MG/2.5ML), 0.5 MG HHN Q6H, (Reported) Letrozole (Letrozole), 2.5 MG GT DAILY, (Reported) Levetiracetam* (Levetiracetam*), 1,500 MG GT BID, (Reported) Levothyroxine Sodium* (Levothyroxine Sodium*), 75 MCG GT DAILY, (Reported) Multivitamin With Minerals (Multivitamins With Minerals*), 15 ML GT DAILY, ( Reported) Na Phos,M-B/Na Phos,Di-Ba* (Fleet Enema*), 133 ML RECTAL PRN, (Reported) Omeprazole (Omeprazole), 20 MG GT DAILY, (Reported) Phenytoin Sodium Extended (Phenytoin Sodium Extended), 200 MG GT BID, (Reported) Vitamin D (Vitamin D3), 400 UNITS GT DAILY, (Reported) Scheduled PRN Acetaminophen (Acetaminophen), 650 MG GT Q6H PRN for Prn Headache/Temp > 101, ( Reported) Magnesium Hydroxide (Milk of Magnesia), 30 ML GT DAILY PRN for Constipation, ( Reported) Patient History Healthcare decision maker Resuscitation status Advanced Directive on File No Review of Systems ROS Narrative Unable to obtain as patient not verbal Physical Exam Last 24 Hour Vital Signs Date Time Temp Pulse Resp B/P (MAP) Pulse Ox O2 Delivery O2 Flow Rate FiO2 10/08/18 08:55 100 10/08/18 08:46 95 23 35 10/08/18 08:00 99.5 95 115/5 (41) 10/08/18 08:00 96 10/08/18 07:33 82 29 35 10/08/18 06:31 35 10/08/18 05:42 84 9 35 10/08/18 04:00 Mechanical Ventilator 10/08/18 04:00 100 10/08/18 03:53 97.9 65 139/73 (95) 10/08/18 03:41 86 10/08/18 03:20 73 18 35 10/08/18 01:30 84 18 35 10/08/18 00:00 99.5 94 93/39 (57) 10/08/18 00:00 94 10/08/18 00:00 Mechanical Ventilator 10/08/18 00:00 100 10/07/18 22:54 86 25 35 10/07/18 21:36 102 10/07/18 21:04 103 10/07/18 20:46 86 21 Mechanical Ventilator 100 10/07/18 20:43 86 22 80 10/07/18 20:30 100.7 103 91/53 (66) 10/07/18 20:30 Mechanical Ventilator 10/07/18 20:08 99.8 99 30 138/87 97 Room Air 10/07/18 20:05 99.8 98 30 138/87 98 Mechanical Ventilator 100 10/07/18 19:40 100 10/07/18 19:15 99.8 10/07/18 18:30 101.9 102 20 138/70 98 Room Air 10/07/18 18:30 102 28 80 10/07/18 17:00 99.9 88 18 138/87 100 Mechanical Ventilator 10/07/18 17:00 101 20 80 10/07/18 16:00 99.7 127 22 128/57 98 Mechanical Ventilator 5.0 10/07/18 14:59 98 22 114/73 98 Mechanical Ventilator 5.0 10/07/18 14:59 120 22 Trach Collar 5.0 10/07/18 13:58 120 22 116/56 98 Mechanical Ventilator Intake and Output 10/07/18 10/08/18 19:00 07:00 Intake Total 467.5 ml Output Total 50 ml 250 ml Balance -50 ml 217.5 ml Intake Free Water 150 ml IV Total 137.5 ml Tube Feeding 120 ml Other 60 ml Output Urine Total 50 ml 250 ml # Voids 1 Laboratory Tests Test 10/07/18 14:15 10/08/18 03:35 White Blood Count 10.9 K/UL (4.8-10.8) H 15.1 K/UL (4.8-10.8) H Red Blood Count 3.74 M/UL (4.20-5.40) L 3.49 M/UL (4.20-5.40) L Hemoglobin 12.6 G/DL (12.0-16.0) 11.8 G/DL (12.0-16.0) L Hematocrit 37.5 % (37.0-47.0) 35.2 % (37.0-47.0) L Mean Corpuscular Volume 100 FL (80-99) H 101 FL (80-99) H Mean Corpuscular Hemoglobin 33.7 PG (27.0-31.0) H 33.9 PG (27.0-31.0) H Mean Corpuscular Hemoglobin Concent 33.6 G/DL (32.0-36.0) 33.6 G/DL (32.0-36.0) Red Cell Distribution Width 13.3 % (11.6-14.8) 13.1 % (11.6-14.8) Platelet Count 132 K/UL (150-450) L 138 K/UL (150-450) L Mean Platelet Volume 10.4 FL (6.5-10.1) H 10.5 FL (6.5-10.1) H Neutrophils (%) (Auto) % (45.0-75.0) 83.2 % (45.0-75.0) H Lymphocytes (%) (Auto) % (20.0-45.0) 8.0 % (20.0-45.0) L Monocytes (%) (Auto) % (1.0-10.0) 8.3 % (1.0-10.0) Eosinophils (%) (Auto) % (0.0-3.0) 0.2 % (0.0-3.0) Basophils (%) (Auto) % (0.0-2.0) 0.4 % (0.0-2.0) Differential Total Cells Counted 100 Neutrophils % (Manual) 84 % (45-75) H Lymphocytes % (Manual) 12 % (20-45) L Monocytes % (Manual) 2 % (1-10) Eosinophils % (Manual) 1 % (0-3) Basophils % (Manual) 1 % (0-2) Band Neutrophils 0 % (0-8) Platelet Estimate Adequate Platelet Morphology Normal Red Blood Cell Morphology Normal Urine Color Yellow Urine Appearance Slightly cloudy Urine pH 5 (4.5-8.0) Urine Specific [place] 1.015 (1.005-1.035) Urine Protein 2+ (NEGATIVE) H Urine Glucose (UA) Negative (NEGATIVE) Urine Ketones Negative (NEGATIVE) Urine Blood 2+ (NEGATIVE) H Urine Nitrite Positive (NEGATIVE) H Urine Bilirubin Negative (NEGATIVE) Urine Urobilinogen 4 MG/DL (0.0-1.0) H Urine Leukocyte Esterase 3+ (NEGATIVE) H Urine RBC 2-4 /HPF (0 - 2) H Urine WBC 30-40 /HPF (0 - 2) H Urine Squamous Epithelial Cells Few /LPF (NONE/OCC) Urine Bacteria Moderate /HPF (NONE) H Sodium Level 136 MMOL/L (136-145) 140 MMOL/L (136-145) Potassium Level 3.4 MMOL/L (3.5-5.1) L 2.8 MMOL/L (3.5-5.1) L Chloride Level 102 MMOL/L (98-107) 105 MMOL/L (98-107) Carbon Dioxide Level 24 MMOL/L (21-32) 25 MMOL/L (21-32) Anion Gap 10 mmol/L (5-15) 10 mmol/L (5-15) Blood Urea Nitrogen 14 mg/dL (7-18) 16 mg/dL (7-18) Creatinine 0.6 MG/DL (0.55-1.30) 0.8 MG/DL (0.55-1.30) Estimat Glomerular Filtration Rate mL/min (>60) mL/min (>60) Glucose Level 117 MG/DL (74-106) H 108 MG/DL (74-106) H Lactic Acid Level 0.90 mmol/L (0.4-2.0) Calcium Level 9.1 MG/DL (8.5-10.1) 8.6 MG/DL (8.5-10.1) Total Bilirubin 0.8 MG/DL (0.2-1.0) Aspartate Amino Transf (AST/SGOT) 69 U/L (15-37) H Alanine Aminotransferase (ALT/SGPT) 58 U/L (12-78) Alkaline Phosphatase 264 U/L (46-116) H Total Creatine Kinase 62 U/L (26-308) Creatine Kinase MB < 0.5 NG/ML (0.0-3.6) Creatine Kinase MB Relative Index 0.8 Troponin I 0.019 ng/mL (0.000-0.056) Pro-B-Type Natriuretic Peptide 1086 pg/mL (0-125) H Total Protein 8.3 G/DL (6.4-8.2) H Albumin 2.7 G/DL (3.4-5.0) L 2.3 G/DL (3.4-5.0) L Globulin 5.6 g/dL Albumin/Globulin Ratio 0.5 (1.0-2.7) L Phenytoin (Dilantin) Level 2.7 ug/mL (10-20) L Phosphorus Level 2.7 MG/DL (2.5-4.9) Microbiology Date/Time Source Procedure Growth Status 10/07/18 14:15 Urine,Clean Catch Urine Culture - Preliminary Resulted Height (Feet): 5 Height (Inches): 3.00 Weight (Pounds): 225 Medications Current Medications Medications (Trade) Dose Ordered Sig/Boubacar Route PRN Reason Start Time Stop Time Status Last Admin Dose Admin Acetaminophen (Tylenol) 650 mg Q4H PRN ORAL FEVER 10/07/18 17:15 11/06/18 17:14 Albuterol/ Ipratropium (Albuterol/ Ipratropium) 3 ml Q4H PRN HHN Shortness of Breath 10/07/18 17:15 10/12/18 17:14 Dextrose (Dextrose 50%) 25 ml Q30M PRN IV Hypoglycemia 10/07/18 17:15 11/06/18 17:14 Dextrose (Dextrose 50%) 50 ml Q30M PRN IV Hypoglycemia 10/07/18 18:45 11/06/18 18:44 Heparin Sodium (Porcine) (Heparin 5000 units/ml) 5,000 units EVERY 12 HOURS SUBQ 10/07/18 21:00 11/06/18 20:59 10/08/18 09:14 Levetiracetam (Keppra) 1,500 mg Q12HR GT 10/07/18 21:00 11/06/18 20:59 10/08/18 09:27 Levothyroxine Sodium (Synthroid) 75 mcg ACBREAKFAST GT 10/08/18 06:30 11/07/18 06:29 10/08/18 05:48 Lorazepam (Ativan 2mg/ml 1ml) 2 mg Q2H PRN IV For Anxiety 10/07/18 17:15 10/14/18 17:14 Morphine Sulfate (Morphine Sulfate) 4 mg Q4H PRN IVP Severe Pain (Pain Scale 7-10) 10/07/18 17:15 10/14/18 17:14 Ondansetron HCl (Zofran) 4 mg Q6H PRN IVP Nausea & Vomiting 10/07/18 17:15 11/06/18 17:14 Pantoprazole (Protonix) 40 mg DAILY IV 10/08/18 09:00 11/07/18 08:59 10/08/18 09:17 Polyethylene Glycol (Miralax) 17 gm DAILYPRN PRN GT Constipation 10/07/18 17:15 11/06/18 17:14 Vancomycin HCl (Vanco rx to dose) 1 ea DAILY PRN MISC rx protocol 10/07/18 18:45 11/06/18 18:44 Vancomycin HCl 1 gm/Dextrose 275 ml @ 183.3 mls/ hr Q24H IVPB 10/08/18 20:00 10/13/18 19:59 Objective Narrative Gen: NAD, On vent, opens and tracks with eyes HEENT: NCAT, MMM, PERRL, No Oral lesion, no scleral icterus, Trached NECK: full range of motion, supple, no meningismus, No LAD, No JVD LUNGS: CTAB, No W/C, No Accessory muscle use CARDS: RRR, S1, S2, No M/R/G, ABD: Soft, NT, ND, No R/G, + BS, No HSM, No Masses. PEG (No E/P) : Deferred Ext: C/C/E, Pulses 2+ B/L (DP, Rad): NEURO: A/O x 0 SKIN: Warm/dry, No rashes Assessment/Plan Assessment/Plan 78 who was sent to the ED from her shelter 10/07/18 with fever and Vomiting. She was also reported to have diarrhea. Sepsis Fever and leukcoytosis UTI vs diarrhea ( C. diff?) UTI UA - positive for bacteria Febrile to 102 now afebrile Leukocytosis Chronic respiratory failure CHF Seizures HTN CVA Plan - Continue Cefepime #1 and Vancomycin #1 - f/u Cultures - f/u C. 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 We will continue to follow the patient during this hospitalization. Eder Varma MD Oct 08, 2018 11:00
--- NOTE | 2018-10-08 11:50 | Diagnostic Imaging Report ---
Indication: Dyspnea Comparison: 08/26/2018 A single view chest radiograph was obtained. Findings: Tracheostomy noted. Lung volumes are slightly better. There is some prominence of the pulmonary vascularity and interstitium. Surgical clips in the right axilla again noted. IMPRESSION: Accounting for low lung volumes no significant change. Suspect mild interstitial edema
[2018-10-08 12:00] VITALS: BP 116/66
--- NOTE | 2018-10-08 12:56 | Consultation ---
History of Present Illness General Date patient seen: Oct 08, 2018 Chief Complaint: Fever Reason for Consultation: Sepsis Present Illness HPI 78-year-old female with chronic vent/trach, vegetative state, Gtube feeding at the brink of life, presented ti ED for evaluation of fever 1 day and Vomiting with diarrhea. Unable to provide any additional history at this time. No signs of distress. Pt was febrile in ER and admitted Allergies: Coded Allergies: PEANUT (Verified Allergy, Unknown, 09/22/16) Medication History Scheduled Albuterol Sulfate* (Albuterol Sulfate Hhn*), 3 ML INH Q6H, (Reported) Ascorbic Acid* (Ascorbic Acid*), 500 MG GT DAILY, (Reported) Bisacodyl (Dulcolax), 10 MG RC PRN, (Reported) Docusate Sodium* (Docusate Sodium*), 100 MG GT DAILY, (Reported) Famotidine (Famotidine), 20 MG GT BID, (Reported) Ferrous Sulfate (Ferrous Sulfate), 330 MG GT DAILY, (Reported) Heparin Sodium,Porcine/Pf (Heparin 1,000 Unit/10 (100/ml)), 5,000 UNIT SQ Q12HR, (Reported) Ipratropium [place] 0.5MG/2.5ML (Ipratropium [place] 0.5MG/2.5ML), 0.5 MG HHN Q6H, (Reported) Letrozole (Letrozole), 2.5 MG GT DAILY, (Reported) Levetiracetam* (Levetiracetam*), 1,500 MG GT BID, (Reported) Levothyroxine Sodium* (Levothyroxine Sodium*), 75 MCG GT DAILY, (Reported) Multivitamin With Minerals (Multivitamins With Minerals*), 15 ML GT DAILY, ( Reported) Na Phos,M-B/Na Phos,Di-Ba* (Fleet Enema*), 133 ML RECTAL PRN, (Reported) Omeprazole (Omeprazole), 20 MG GT DAILY, (Reported) Phenytoin Sodium Extended (Phenytoin Sodium Extended), 200 MG GT BID, (Reported) Vitamin D (Vitamin D3), 400 UNITS GT DAILY, (Reported) Scheduled PRN Acetaminophen (Acetaminophen), 650 MG GT Q6H PRN for Prn Headache/Temp > 101, ( Reported) Magnesium Hydroxide (Milk of Magnesia), 30 ML GT DAILY PRN for Constipation, ( Reported) Patient History Healthcare decision maker Resuscitation status Advanced Directive on File No Past Medical/Surgical History Past Medical/Surgical History: (1) Chronic respiratory failure (2) Vegetative state (3) Anoxic brain damage syndrome (4) Feeding by G-tube (5) Seizure disorder (6) Ventilator dependence Review of Systems All Other Systems: negative except mentioned in HPI Physical Exam General Appearance: WD/WN, no apparent distress Lines, tubes and drains: peripheral HEENT: normocephalic, atraumatic Neck: non-tender, normal alignment Respiratory/Chest: chest wall non-tender, lungs clear Breasts: no masses Cardiovascular/Chest: normal peripheral pulses Abdomen: normal bowel sounds Genitourinary/Rectal: normal genital exam Last 24 Hour Vital Signs Date Time Temp Pulse Resp B/P (MAP) Pulse Ox O2 Delivery O2 Flow Rate FiO2 10/08/18 11:00 92 30 35 10/08/18 08:55 100 10/08/18 08:46 95 23 35 10/08/18 08:00 99.5 95 115/5 (41) 10/08/18 08:00 35 10/08/18 08:00 Mechanical Ventilator 10/08/18 08:00 96 10/08/18 07:33 82 29 35 10/08/18 06:31 35 10/08/18 05:42 84 9 35 10/08/18 04:00 Mechanical Ventilator 10/08/18 04:00 100 10/08/18 03:53 97.9 65 139/73 (95) 10/08/18 03:41 86 10/08/18 03:20 73 18 35 10/08/18 01:30 84 18 35 10/08/18 00:00 99.5 94 93/39 (57) 10/08/18 00:00 94 10/08/18 00:00 Mechanical Ventilator 10/08/18 00:00 100 10/07/18 22:54 86 25 35 10/07/18 21:36 102 10/07/18 21:04 103 10/07/18 20:46 86 21 Mechanical Ventilator 100 10/07/18 20:43 86 22 80 10/07/18 20:30 100.7 103 91/53 (66) 10/07/18 20:30 Mechanical Ventilator 10/07/18 20:08 99.8 99 30 138/87 97 Room Air 10/07/18 20:05 99.8 98 30 138/87 98 Mechanical Ventilator 100 10/07/18 19:40 100 10/07/18 19:15 99.8 10/07/18 18:30 101.9 102 20 138/70 98 Room Air 10/07/18 18:30 102 28 80 10/07/18 17:00 99.9 88 18 138/87 100 Mechanical Ventilator 10/07/18 17:00 101 20 80 10/07/18 16:00 99.7 127 22 128/57 98 Mechanical Ventilator 5.0 10/07/18 14:59 98 22 114/73 98 Mechanical Ventilator 5.0 10/07/18 14:59 120 22 Trach Collar 5.0 10/07/18 13:58 120 22 116/56 98 Mechanical Ventilator Intake and Output 10/07/18 10/08/18 18:59 06:59 Intake Total 467.5 ml Output Total 50 ml 250 ml Balance -50 ml 217.5 ml Intake Free Water 150 ml IV Total 137.5 ml Tube Feeding 120 ml Other 60 ml Output Urine Total 50 ml 250 ml # Voids 1 Laboratory Tests Test 10/07/18 14:15 10/08/18 03:35 White Blood Count 10.9 K/UL (4.8-10.8) H 15.1 K/UL (4.8-10.8) H Red Blood Count 3.74 M/UL (4.20-5.40) L 3.49 M/UL (4.20-5.40) L Hemoglobin 12.6 G/DL (12.0-16.0) 11.8 G/DL (12.0-16.0) L Hematocrit 37.5 % (37.0-47.0) 35.2 % (37.0-47.0) L Mean Corpuscular Volume 100 FL (80-99) H 101 FL (80-99) H Mean Corpuscular Hemoglobin 33.7 PG (27.0-31.0) H 33.9 PG (27.0-31.0) H Mean Corpuscular Hemoglobin Concent 33.6 G/DL (32.0-36.0) 33.6 G/DL (32.0-36.0) Red Cell Distribution Width 13.3 % (11.6-14.8) 13.1 % (11.6-14.8) Platelet Count 132 K/UL (150-450) L 138 K/UL (150-450) L Mean Platelet Volume 10.4 FL (6.5-10.1) H 10.5 FL (6.5-10.1) H Neutrophils (%) (Auto) % (45.0-75.0) 83.2 % (45.0-75.0) H Lymphocytes (%) (Auto) % (20.0-45.0) 8.0 % (20.0-45.0) L Monocytes (%) (Auto) % (1.0-10.0) 8.3 % (1.0-10.0) Eosinophils (%) (Auto) % (0.0-3.0) 0.2 % (0.0-3.0) Basophils (%) (Auto) % (0.0-2.0) 0.4 % (0.0-2.0) Differential Total Cells Counted 100 Neutrophils % (Manual) 84 % (45-75) H Lymphocytes % (Manual) 12 % (20-45) L Monocytes % (Manual) 2 % (1-10) Eosinophils % (Manual) 1 % (0-3) Basophils % (Manual) 1 % (0-2) Band Neutrophils 0 % (0-8) Platelet Estimate Adequate Platelet Morphology Normal Red Blood Cell Morphology Normal Urine Color Yellow Urine Appearance Slightly cloudy Urine pH 5 (4.5-8.0) Urine Specific [place] 1.015 (1.005-1.035) Urine Protein 2+ (NEGATIVE) H Urine Glucose (UA) Negative (NEGATIVE) Urine Ketones Negative (NEGATIVE) Urine Blood 2+ (NEGATIVE) H Urine Nitrite Positive (NEGATIVE) H Urine Bilirubin Negative (NEGATIVE) Urine Urobilinogen 4 MG/DL (0.0-1.0) H Urine Leukocyte Esterase 3+ (NEGATIVE) H Urine RBC 2-4 /HPF (0 - 2) H Urine WBC 30-40 /HPF (0 - 2) H Urine Squamous Epithelial Cells Few /LPF (NONE/OCC) Urine Bacteria Moderate /HPF (NONE) H Sodium Level 136 MMOL/L (136-145) 140 MMOL/L (136-145) Potassium Level 3.4 MMOL/L (3.5-5.1) L 2.8 MMOL/L (3.5-5.1) L Chloride Level 102 MMOL/L (98-107) 105 MMOL/L (98-107) Carbon Dioxide Level 24 MMOL/L (21-32) 25 MMOL/L (21-32) Anion Gap 10 mmol/L (5-15) 10 mmol/L (5-15) Blood Urea Nitrogen 14 mg/dL (7-18) 16 mg/dL (7-18) Creatinine 0.6 MG/DL (0.55-1.30) 0.8 MG/DL (0.55-1.30) Estimat Glomerular Filtration Rate mL/min (>60) mL/min (>60) Glucose Level 117 MG/DL (74-106) H 108 MG/DL (74-106) H Lactic Acid Level 0.90 mmol/L (0.4-2.0) Calcium Level 9.1 MG/DL (8.5-10.1) 8.6 MG/DL (8.5-10.1) Total Bilirubin 0.8 MG/DL (0.2-1.0) Aspartate Amino Transf (AST/SGOT) 69 U/L (15-37) H Alanine Aminotransferase (ALT/SGPT) 58 U/L (12-78) Alkaline Phosphatase 264 U/L (46-116) H Total Creatine Kinase 62 U/L (26-308) Creatine Kinase MB < 0.5 NG/ML (0.0-3.6) Creatine Kinase MB Relative Index 0.8 Troponin I 0.019 ng/mL (0.000-0.056) Pro-B-Type Natriuretic Peptide 1086 pg/mL (0-125) H Total Protein 8.3 G/DL (6.4-8.2) H Albumin 2.7 G/DL (3.4-5.0) L 2.3 G/DL (3.4-5.0) L Globulin 5.6 g/dL Albumin/Globulin Ratio 0.5 (1.0-2.7) L Phenytoin (Dilantin) Level 2.7 ug/mL (10-20) L Phosphorus Level 2.7 MG/DL (2.5-4.9) Microbiology Date/Time Source Procedure Growth Status 10/07/18 14:00 Blood Blood Culture - Preliminary Resulted 10/07/18 14:15 Urine,Clean Catch Urine Culture - Preliminary Resulted Height (Feet): 5 Height (Inches): 3.00 Weight (Pounds): 225 Medications Current Medications Medications (Trade) Dose Ordered Sig/Boubacar Route PRN Reason Start Time Stop Time Status Last Admin Dose Admin Acetaminophen (Tylenol) 650 mg Q4H PRN ORAL FEVER 10/07/18 17:15 11/06/18 17:14 Albuterol/ Ipratropium (Albuterol/ Ipratropium) 3 ml Q4H PRN HHN Shortness of Breath 10/07/18 17:15 10/12/18 17:14 Dextrose (Dextrose 50%) 25 ml Q30M PRN IV Hypoglycemia 10/07/18 17:15 11/06/18 17:14 Dextrose (Dextrose 50%) 50 ml Q30M PRN IV Hypoglycemia 10/07/18 18:45 11/06/18 18:44 Heparin Sodium (Porcine) (Heparin 5000 units/ml) 5,000 units EVERY 12 HOURS SUBQ 10/07/18 21:00 11/06/18 20:59 10/08/18 09:14 Levetiracetam (Keppra) 1,500 mg Q12HR GT 10/07/18 21:00 11/06/18 20:59 10/08/18 09:27 Levothyroxine Sodium (Synthroid) 75 mcg ACBREAKFAST GT 10/08/18 06:30 11/07/18 06:29 10/08/18 05:48 Lorazepam (Ativan 2mg/ml 1ml) 2 mg Q2H PRN IV For Anxiety 10/07/18 17:15 10/14/18 17:14 Morphine Sulfate (Morphine Sulfate) 4 mg Q4H PRN IVP Severe Pain (Pain Scale 7-10) 10/07/18 17:15 10/14/18 17:14 Ondansetron HCl (Zofran) 4 mg Q6H PRN IVP Nausea & Vomiting 10/07/18 17:15 11/06/18 17:14 Pantoprazole (Protonix) 40 mg DAILY IV 10/08/18 09:00 11/07/18 08:59 10/08/18 09:17 Polyethylene Glycol (Miralax) 17 gm DAILYPRN PRN GT Constipation 10/07/18 17:15 11/06/18 17:14 Vancomycin HCl (Vanco rx to dose) 1 ea DAILY PRN MISC rx protocol 10/07/18 18:45 11/06/18 18:44 Vancomycin HCl 1 gm/Dextrose 275 ml @ 183.3 mls/ hr Q24H IVPB 10/08/18 20:00 10/13/18 19:59 Assessment/Plan Problem List: (1) Acute and chronic respiratory failure ICD Codes: J96.20 - Acute and chronic respiratory failure, unspecified whether with hypoxia or hypercapnia SNOMED: 51798268, [id number] (2) Sepsis ICD Codes: A41.9 - Sepsis, unspecified organism SNOMED: 10170685 (3) Anoxic brain damage syndrome ICD Codes: G93.1 - Anoxic brain damage, not elsewhere classified SNOMED: 905191424 (4) Vegetative state ICD Codes: R40.3 - Persistent vegetative state SNOMED: 27713038, 084253622 (5) Functional paraplegia (6) Seizure disorder ICD Codes: G40.909 - Epilepsy, unspecified, not intractable, without status epilepticus SNOMED: 741301908 (7) Feeding by G-tube ICD Codes: Z93.1 - Gastrostomy status SNOMED: 925756263, 123046990 Respiratory: monitor respiratory rate, adjust FIO2, CXR Cardiac: continue to monitor HR/BP Renal: F/U I&O, keep IV fluid Infectious Disease: check cultures Gastrointestinal: continue feedings/current rate Endocrine: monitor blood sugar Hematologic: monitor H/H Neurologic: PRN Morphine, keep patient comfortable Prophylaxis: Protonix Disposition: keep in ICU Time Spent (Minutes): 40 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: survey engineer, 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, consultants, manager rn case Savi Rodriguez MD Oct 08, 2018 12:56
--- NOTE | 2018-10-08 14:15 | NUR ---
RD ASSESSMENT & RECOMMENDATIONS SEE CARE ACTIVITY FOR COMPLETE ASSESSMENT DAILY ESTIMATED NEEDS: Needs based on Obese, critical care 66.5kg adj 20-25 kcals/kg 8183-1436 total kcals 1.2-2 g protein/kg 80-133 g total protein 20-25 ml/kcal mL/kg 0160-7607 total fluid mLs NUTRITION DIAGNOSIS: 1) Swallowing difficulty R/T respiratory status as evidenced by pt trach-vent dep, GT dep. 2) Altered nutrition related lab values R/T clinical condition as evidenced by low K (2.8), elev BNP (1086), febrile. CURRENT TF:Jevity 1.2 @30ml x22 hrs ENTERAL NUTRITION RECOMMENDATIONS: Glucerna 1.5 @50ml/hr x22 hrs to provide 1100ml, 1650kcal, 91g prot, 835ml free water * As medically able, start Glucerna1.5 @20ml for 6 hrs, advance 10ml q 4-6 hrs as tolerated to goal rate. * Water flush per MD/ HOB over 30 degrees * HOLD 1 hr before and after synthroid meds ADDITIONAL RECOMMENDATIONS: * RE-calibrated bed scale weights for accurate CBW * Monitor lytes, replete as needed (low K) * A1C for eval of glycemic control - h/o DM * Monitor BGs closely, need for carb controlled formula- h/o DM * CONSULT RD IF SEIZURE MEDS CHANGE TO DILANTIN -> TF RATE WILL NEED TO BE ADJUSTED TO MEET EST NEEDS .
--- NOTE | 2018-10-08 15:12 | NUR ---
Social Service Note PETEY spoke with insurance risk surveyor Emilia [phone] regarding her request to transfer patient to in-network provider. Emilia is working on an available bed. PETEY spoke with patient's dgt Laura Bowling [phone] and notified her of impending dc to contracted facility. Dgt is in agreement with plan. Nurse to notify dgt prior to transfer. Will monitor and follow up.
--- NOTE | 2018-10-08 15:26 | NUR ---
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 101.9 HR 120 RR 22 B/P 116/56 AC WBC 10.9 K 3.4 AST 69 ALK PHOS 26.5 BNP 1086 PLT 132 UA+NITRITE,BLOOD,PROTEIN,UROBILINOGEN,RBC,WBC,BACTERIA CXR= NO ACUTE PROCESS IS: IV BOLUS NS X 2 LITERS CEFEPIME IV ZOFRAN IV ADMITTED TO STEP DOWN @ 1999 STEP DOWN STATUS DCP RETURN TO [facility]
[2018-10-08 16:00] VITALS: BP 109/50
--- NOTE | 2018-10-08 16:30 | NUR ---
Social Service Note Patient will transfer to [facility] ICU 220. Nurse to call report prior to transfer [phone]. 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 Nurse also to call patient's dgt Laura Bowling [phone] to inform of dc time. SW discussed with primary nurse copy of chart to transport with patient.
--- NOTE | 2018-10-08 16:56 | NUR ---
NURSE NOTES: PATIENT KEPT CLEAN AND DRY. NO SIGNS OF DISTRESS. FOR TRANSFER ANYTIME TODAY. WILL CONTINUE TO MONITOR.
--- NOTE | 2018-10-08 19:15 | History and Physical Report ---
DATE OF ADMISSION: 10/07/2018 TIME SEEN: 1 p.m. CONSULTANTS: 1. aSvi Rodriguez M.D. 2. Delmer Madera M.D. CHIEF COMPLAINT: Respiratory failure, urinary tract infection, sepsis. BRIEF HISTORY: This is a 78-year-old female from [facility] presents to [place] [facility] last night, increased lethargy, and fever, diagnosed with UTI, sepsis, respiratory failure, admitted to [facility] for further care. Currently, trach, vent, lethargic in bed, nonverbal. REVIEW OF SYSTEMS: Unavailable. PAST MEDICAL HISTORY: Respiratory failure, CHF, anoxic brain, hypothyroid, seizure, hypertension, bowel obstruction. PAST SURGICAL HISTORY: Trach and G-tube. MEDICATIONS: Include vancomycin, pantoprazole, levothyroxine, levetiracetam, Tylenol, albuterol, morphine. ALLERGIES: None. SOCIAL HISTORY: Unable to obtain secondary to the patient's condition. PHYSICAL EXAMINATION: GENERAL: Trach, vent, altered, lethargic in bed, and nonverbal. VITAL SIGNS: Temperature 99, pulse 106, respiratory rate 28, blood pressure 115/50. CARDIOVASCULAR: No murmur. LUNGS: Distant and clear. ABDOMEN: Bowel sounds positive. Nontender. Nondistended. EXTREMITIES: No cyanosis or edema. NEUROLOGIC: The patient is flaccid in bed, not following directions. LABORATORY AND DIAGNOSTIC DATA: White count 15, hemoglobin and hematocrit 11/35, platelets 138. BMP shows potassium 2.8, glucose 108, otherwise BMP is normal. Troponin 0.019. Urinalysis show 3+ leukocyte esterase. Phenytoin is 2.7. ASSESSMENT: 1. Respiratory failure. 2. Urinary tract infection. 3. Sepsis. 4. Anemia. 5. CHF. 6. Anoxic encephalopathy. 7. Hypothyroid. 8. Seizure. 9. . 10. History of bowel obstruction. PLAN: 1. Vent per pulmonary 2. antibiotics per Infectious Diseases. 3. Blood pressure control. 4. Resume home medications. 5. Dietary followup. 6. Possible transfer per insurance. 7. CBC and BMP in the morning. Juaquin Ramos D.O. DR: David JOB#: [id number] CC:
--- NOTE | 2018-10-08 19:40 | NUR ---
HAND-OFF: Report given to David Alexander of [address], [facility]. and to Marysol of [employer]. All questioned answered.
[2018-10-08 20:00] VITALS: BP 118/71
--- NOTE | 2018-10-08 20:45 | NUR ---
NURSE NOTES: [facility] refused to clam picker patient to transfer to [facility] because HR 104 and RR 40 Called facility and spoke with CESAR Gallardo to notify patient's condition, notified,called family and spoke with daughter Laura . Doctor and family aware of the patient's condition.
--- NOTE | 2018-10-08 20:50 | NUR ---
NURSE NOTES: Received bedside report from CESAR Long.Patient obtunded,Portex 8 SIMV 8 TV 600 FiO2 35% PEEP 5 tolerated well,GT running with Jevity 1.2 @ 30 ml/hr,IV intact, skin intact,bed secured ,call light within a reach,will continue to monitor and follow POC.
[2018-10-08] MEDS: Vancomycin 1 GM in D5W 275 ML IVPB SCH (21:48)
[2018-10-09] VITALS: BP 128/68
[2018-10-09 04:00] VITALS: BP 114/59
[2018-10-09 05:35] LABS: BASOPHILS % (AUTO) 0.4 % (0.0-2.0); HEMATOCRIT 35.6 % (37.0-47.0); LYMPHOCYTES % (AUTO) 7.8 % (20.0-45.0); MEAN CORPUSCULAR VOLUME 100 FL (80-99); MONOCYTES % (AUTO) 12.9 % (1.0-10.0); NEUTROPHILS % (AUTO) 77.9 % (45.0-75.0); PLATELET COUNT 144 K/UL (150-450); RED BLOOD COUNT 3.55 M/UL (4.20-5.40); RED CELL DISTRIBUTION WIDTH 13.4 % (11.6-14.8); WHITE BLOOD COUNT 8.5 K/UL (4.8-10.8)
[2018-10-09 06:14] LABS: ALANINE AMINOTRANSFERASE 51 U/L (12-78); ALBUMIN 2.4 G/DL (3.4-5.0); ALBUMIN/GLOBULIN RATIO 0.4 (1.0-2.7); ALKALINE PHOSPHATASE 216 U/L (46-116); ANION GAP 8 mmol/L (5-15); ASPARTATE AMINO TRANSFERASE 55 U/L (15-37); BILIRUBIN,TOTAL 0.6 MG/DL (0.2-1.0); BLOOD UREA NITROGEN 15 mg/dL (7-18); CALCIUM 9.1 MG/DL (8.5-10.1); CARBON DIOXIDE 25 MMOL/L (21-32); CHLORIDE 106 MMOL/L (98-107); CREATININE 0.9 MG/DL (0.55-1.30); POTASSIUM 2.9 MMOL/L (3.5-5.1); SODIUM 139 MMOL/L (136-145)
--- NOTE | 2018-10-09 07:23 | NUR ---
HAND-OFF: Report given to CESAR Shultz.Patient stable.
--- NOTE | 2018-10-09 07:24 | NUR ---
NURSE NOTES: Patient received from CESAR Valdes. Patient in bed, obtunded, and able to open her eyes. Trach to vent dependent. Portex 8 SIMV 8 TV 600 Fi02 35% Peep 5. 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 GT in placed Jevity 1.2 at 30 cc/hour. Currently on hold for levothyroxine. On purewick. IV site is asymptomatic. Patient was supposed to be discharged tomorrow, but due to respiration is high. She will be picked up today. Per PM nurse, report was given to Paulina from [facility] yesterday. Bed in lowest position with side rails up. Will continue to follow plan of care.
--- NOTE | 2018-10-09 07:30 | NUR ---
NURSE NOTES: Left a message to Dr. Rodriguez about Potassium 2.9. Awaiting for call back.
[2018-10-09 08:00] VITALS: BP 136/72
--- NOTE | 2018-10-09 08:14 | NUR ---
NURSE NOTES: Received order Potassium [address] Rodriguez. Carried out.
[2018-10-09] MEDS: Pantoprazole Inj IV SCH (08:21)
--- NOTE | 2018-10-09 08:22 | NUR ---
Social Service Note PETEY spoke with Emilia [phone] regarding transfer. Emilia would like MD to evaluate patient to determine stability for transfer. PETEY left a message for Dr. Rodriguez. Will monitor and follow up.
[2018-10-09] MEDS: Heparin 5000 units/ml inj SUBQ SCH ×2 (08:23→20:53)
[2018-10-09] MEDS: levETIRAcetam 500mg/5ml Liquid GT SCH ×2 (09:12→20:50)
--- NOTE | 2018-10-09 09:34 | Infectious Diseases Prog Note ---
Assessment/Plan Assessment/Plan 78 who was sent to the ED from her skilled nursing 10/07/18 with fever and Vomiting. She was also reported to have diarrhea. Sepsis Fever and leukcoytosis UTI vs diarrhea ( C. diff? or viral UTI UA - positive for bacteria Bacteremia - Likely contaminant Will repeat Febrile to 102 now afebrile Leukocytosis Chronic respiratory failure CHF Seizures HTN CVA Plan - Continue Cefepime #2 and Vancomycin #2 - f/u Cultures - f/u C. 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 We will continue to follow the patient during this hospitalization. Subjective Allergies: Coded Allergies: PEANUT (Verified Allergy, Unknown, 09/22/16) Subjective Patient awake on vent Afebrile No leukcoytosis Objective Vital Signs Last 24 Hour Vital Signs Date Time Temp Pulse Resp B/P (MAP) Pulse Ox O2 Delivery O2 Flow Rate FiO2 10/09/18 09:10 100 10/09/18 09:08 98 26 35 10/09/18 08:00 98.5 99 22 136/72 (93) 100 10/09/18 08:00 100 10/09/18 08:00 35 10/09/18 06:55 96 28 35 10/09/18 04:57 91 23 35 10/09/18 04:00 97.8 94 28 114/59 (77) 98 10/09/18 04:00 35 10/09/18 04:00 Mechanical Ventilator 10/09/18 03:45 96 10/09/18 03:12 94 25 35 10/09/18 01:00 97 32 35 10/09/18 00:00 97.6 95 30 128/68 (88) 98 10/09/18 00:00 Mechanical Ventilator 10/08/18 23:59 97 10/08/18 23:03 101 31 35 10/08/18 21:25 101 30 35 10/08/18 20:00 99.5 40 118/71 (87) 95 10/08/18 20:00 35 10/08/18 20:00 Mechanical Ventilator 10/08/18 19:06 104 10/08/18 18:46 101 29 35 10/08/18 16:49 102 29 35 10/08/18 16:00 99.9 30 109/50 (69) 96 10/08/18 16:00 104 10/08/18 16:00 Mechanical Ventilator 10/08/18 16:00 35 10/08/18 14:36 97 27 35 10/08/18 13:06 106 28 35 10/08/18 12:00 98.6 26 116/66 (83) 95 10/08/18 12:00 Mechanical Ventilator 10/08/18 12:00 96 10/08/18 12:00 35 10/08/18 11:00 92 30 35 Height (Feet): 5 Height (Inches): 3.00 Weight (Pounds): 225 Objective Gen: NAD, On vent, opens and tracks with eyes HEENT: NCAT, MMM, EOMI LUNGS: CTAB, No W CARDS: RRR, S1, S2, No M/R/G, ABD: Soft, NT, ND, + BS PEG (No E/P) Microbiology Date/Time Source Procedure Growth Status 10/07/18 14:15 Blood Blood Culture - Preliminary Resulted 10/07/18 14:00 Blood Blood Culture - Preliminary Staphylococcus Sp Coag Neg Resulted 10/07/18 16:00 Nasal Nares MRSA Culture - Final NO METHICILLIN RESISTANT STAPH AUREUS... Complete 10/07/18 14:15 Urine,Clean Catch Urine Culture - Preliminary Gram Negative Bacillus 1 Resulted 10/07/18 16:00 Rectum VRE Culture - Final Enterococcus Faecalis - Vre Complete 10/07/18 16:00 Rectum - Final NO CARBAPENEM-RESISTANT ENTEROBACTERI... Complete Laboratory Tests Test 10/09/18 03:30 White Blood Count 8.5 K/UL (4.8-10.8) Red Blood Count 3.55 M/UL (4.20-5.40) L Hemoglobin 12.0 G/DL (12.0-16.0) Hematocrit 35.6 % (37.0-47.0) L Mean Corpuscular Volume 100 FL (80-99) H Mean Corpuscular Hemoglobin 33.8 PG (27.0-31.0) H Mean Corpuscular Hemoglobin Concent 33.7 G/DL (32.0-36.0) Red Cell Distribution Width 13.4 % (11.6-14.8) Platelet Count 144 K/UL (150-450) L Mean Platelet Volume 11.1 FL (6.5-10.1) H Neutrophils (%) (Auto) 77.9 % (45.0-75.0) H Lymphocytes (%) (Auto) 7.8 % (20.0-45.0) L Monocytes (%) (Auto) 12.9 % (1.0-10.0) H Eosinophils (%) (Auto) 1.0 % (0.0-3.0) Basophils (%) (Auto) 0.4 % (0.0-2.0) Sodium Level 139 MMOL/L (136-145) Potassium Level 2.9 MMOL/L (3.5-5.1) L Chloride Level 106 MMOL/L (98-107) Carbon Dioxide Level 25 MMOL/L (21-32) Anion Gap 8 mmol/L (5-15) Blood Urea Nitrogen 15 mg/dL (7-18) Creatinine 0.9 MG/DL (0.55-1.30) Estimat Glomerular Filtration Rate mL/min (>60) Glucose Level 122 MG/DL (74-106) H Calcium Level 9.1 MG/DL (8.5-10.1) Total Bilirubin 0.6 MG/DL (0.2-1.0) Aspartate Amino Transf (AST/SGOT) 55 U/L (15-37) H Alanine Aminotransferase (ALT/SGPT) 51 U/L (12-78) Alkaline Phosphatase 216 U/L (46-116) H Pro-B-Type Natriuretic Peptide 2992 pg/mL (0-125) H Total Protein 7.9 G/DL (6.4-8.2) Albumin 2.4 G/DL (3.4-5.0) L Globulin 5.5 g/dL Albumin/Globulin Ratio 0.4 (1.0-2.7) L Current Medications Medications (Trade) Dose Ordered Sig/Boubacar Route PRN Reason Start Time Stop Time Status Last Admin Dose Admin Acetaminophen (Tylenol) 650 mg Q4H PRN ORAL FEVER 10/07/18 17:15 11/06/18 17:14 Albuterol/ Ipratropium (Albuterol/ Ipratropium) 3 ml Q4H PRN HHN Shortness of Breath 10/07/18 17:15 10/12/18 17:14 Dextrose (Dextrose 50%) 25 ml Q30M PRN IV Hypoglycemia 10/07/18 17:15 11/06/18 17:14 Dextrose (Dextrose 50%) 50 ml Q30M PRN IV Hypoglycemia 10/07/18 18:45 11/06/18 18:44 Heparin Sodium (Porcine) (Heparin 5000 units/ml) 5,000 units EVERY 12 HOURS SUBQ 10/07/18 21:00 11/06/18 20:59 10/09/18 08:23 Levetiracetam (Keppra) 1,500 mg Q12HR GT 10/07/18 21:00 11/06/18 20:59 10/09/18 09:12 Levothyroxine Sodium (Synthroid) 75 mcg ACBREAKFAST GT 10/08/18 06:30 11/07/18 06:29 10/09/18 06:30 Lorazepam (Ativan 2mg/ml 1ml) 2 mg Q2H PRN IV For Anxiety 10/07/18 17:15 10/14/18 17:14 Morphine Sulfate (Morphine Sulfate) 4 mg Q4H PRN IVP Severe Pain (Pain Scale 7-10) 10/07/18 17:15 10/14/18 17:14 Ondansetron HCl (Zofran) 4 mg Q6H PRN IVP Nausea & Vomiting 10/07/18 17:15 11/06/18 17:14 Pantoprazole (Protonix) 40 mg DAILY IV 10/08/18 09:00 11/07/18 08:59 10/09/18 08:21 Polyethylene Glycol (Miralax) 17 gm DAILYPRN PRN GT Constipation 10/07/18 17:15 11/06/18 17:14 Potassium Chloride (K-Dur) 40 meq Q4H GT 10/09/18 08:15 10/09/18 12:16 10/09/18 08:24 Vancomycin HCl (Vanco rx to dose) 1 ea DAILY PRN MISC rx protocol 10/07/18 18:45 11/06/18 18:44 Vancomycin HCl 1 gm/Dextrose 275 ml @ 183.3 mls/ hr Q24H IVPB 10/08/18 20:00 10/13/18 19:59 10/08/18 21:48 Eder Varma MD Oct 09, 2018 09:34
--- NOTE | 2018-10-09 09:44 | NUR ---
RADIOLOGY DEPT CHEST X-RAY DONE.-P.DYE
--- NOTE | 2018-10-09 11:11 | Pulmonolgy Critical Care Note ---
Critical Care - Asmt/Plan Problems: (1) Acute and chronic respiratory failure (2) Aspiration pneumonia (3) Sepsis (4) Chronic respiratory failure (5) Vegetative state (6) Feeding by G-tube (7) Functional paraplegia Respiratory: monitor respiratory rate, adjust FIO2, CXR Cardiac: continue to monitor HR/BP Renal: F/U I&O Infectious Disease: check cultures, continue antibiotics Gastrointestinal: hold feedings Endocrine: monitor blood sugar, continue sliding scale insulin Hematologic: monitor H/H, transfuse if hgb<8.5 Neurologic: keep patient comfortable Affect: PRN ativan Prophylaxis: Heparin Time Spent (Minutes): 30 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: cardio Discussed with: nurses, consultants, rn case managerbusiness segment manager - Objective Last 24 Hour Vital Signs Date Time Temp Pulse Resp B/P (MAP) Pulse Ox O2 Delivery O2 Flow Rate FiO2 10/09/18 09:10 100 10/09/18 09:08 98 26 35 10/09/18 08:00 Mechanical Ventilator 10/09/18 08:00 98.5 99 22 136/72 (93) 100 10/09/18 08:00 100 10/09/18 08:00 35 10/09/18 06:55 96 28 35 10/09/18 04:57 91 23 35 10/09/18 04:00 97.8 94 28 114/59 (77) 98 10/09/18 04:00 35 10/09/18 04:00 Mechanical Ventilator 10/09/18 03:45 96 10/09/18 03:12 94 25 35 10/09/18 01:00 97 32 35 10/09/18 00:00 97.6 95 30 128/68 (88) 98 10/09/18 00:00 Mechanical Ventilator 10/08/18 23:59 97 10/08/18 23:03 101 31 35 10/08/18 21:25 101 30 35 10/08/18 20:00 99.5 40 118/71 (87) 95 10/08/18 20:00 35 10/08/18 20:00 Mechanical Ventilator 10/08/18 19:06 104 10/08/18 18:46 101 29 35 10/08/18 16:49 102 29 35 10/08/18 16:00 99.9 30 109/50 (69) 96 10/08/18 16:00 104 10/08/18 16:00 Mechanical Ventilator 10/08/18 16:00 35 10/08/18 14:36 97 27 35 10/08/18 13:06 106 28 35 10/08/18 12:00 98.6 26 116/66 (83) 95 10/08/18 12:00 Mechanical Ventilator 10/08/18 12:00 96 10/08/18 12:00 35 Status: obtunded Condition: critical HEENT: atraumatic Lungs: clear Heart: HR/BP unstable Abdomen: soft, active bowel sounds Extremities: no C/C/E Decubiti: location Micro: Microbiology Date/Time Source Procedure Growth Status 10/07/18 14:15 Blood Blood Culture - Preliminary Resulted 10/07/18 14:00 Blood Blood Culture - Preliminary Staphylococcus Sp Coag Neg Resulted 10/07/18 16:00 Nasal Nares MRSA Culture - Final NO METHICILLIN RESISTANT STAPH AUREUS... Complete 10/07/18 14:15 Urine,Clean Catch Urine Culture - Preliminary Gram Negative Bacillus 1 Resulted 10/07/18 16:00 Rectum VRE Culture - Final Enterococcus Faecalis - Vre Complete 10/07/18 16:00 Rectum - Final NO CARBAPENEM-RESISTANT ENTEROBACTERI... Complete Critical Care - Subjective ROS Limited/Unobtainable: Yes Condition: critical FI02: 35 Vent Support Breath Rate: 8 Vent Support Mode: IMV/SIMV Vent Tidal Volume: 600 Sputum Amount: Small PEEP: 5.0 PIP: 24 Tube Feeding Amount: 30 I&O: Intake and Output 10/08/18 10/09/18 19:00 07:00 Intake Total 370 ml 320 ml Output Total 200 ml Balance 170 ml 320 ml Intake Free Water 100 ml 50 ml Tube Feeding 270 ml 270 ml Output Urine Total 200 ml CXR: no change Labs: Laboratory Tests Test 10/09/18 03:30 White Blood Count 8.5 K/UL (4.8-10.8) Red Blood Count 3.55 M/UL (4.20-5.40) L Hemoglobin 12.0 G/DL (12.0-16.0) Hematocrit 35.6 % (37.0-47.0) L Mean Corpuscular Volume 100 FL (80-99) H Mean Corpuscular Hemoglobin 33.8 PG (27.0-31.0) H Mean Corpuscular Hemoglobin Concent 33.7 G/DL (32.0-36.0) Red Cell Distribution Width 13.4 % (11.6-14.8) Platelet Count 144 K/UL (150-450) L Mean Platelet Volume 11.1 FL (6.5-10.1) H Neutrophils (%) (Auto) 77.9 % (45.0-75.0) H Lymphocytes (%) (Auto) 7.8 % (20.0-45.0) L Monocytes (%) (Auto) 12.9 % (1.0-10.0) H Eosinophils (%) (Auto) 1.0 % (0.0-3.0) Basophils (%) (Auto) 0.4 % (0.0-2.0) Sodium Level 139 MMOL/L (136-145) Potassium Level 2.9 MMOL/L (3.5-5.1) L Chloride Level 106 MMOL/L (98-107) Carbon Dioxide Level 25 MMOL/L (21-32) Anion Gap 8 mmol/L (5-15) Blood Urea Nitrogen 15 mg/dL (7-18) Creatinine 0.9 MG/DL (0.55-1.30) Estimat Glomerular Filtration Rate mL/min (>60) Glucose Level 122 MG/DL (74-106) H Calcium Level 9.1 MG/DL (8.5-10.1) Total Bilirubin 0.6 MG/DL (0.2-1.0) Aspartate Amino Transf (AST/SGOT) 55 U/L (15-37) H Alanine Aminotransferase (ALT/SGPT) 51 U/L (12-78) Alkaline Phosphatase 216 U/L (46-116) H Pro-B-Type Natriuretic Peptide 2992 pg/mL (0-125) H Total Protein 7.9 G/DL (6.4-8.2) Albumin 2.4 G/DL (3.4-5.0) L Globulin 5.5 g/dL Albumin/Globulin Ratio 0.4 (1.0-2.7) L Savi Rodriguez MD Oct 09, 2018 11:11
[2018-10-09 12:00] VITALS: BP 105/60
--- NOTE | 2018-10-09 12:15 | Diagnostic Imaging Report ---
Indication: Dyspnea Comparison: 10/07/2018 A single view chest radiograph was obtained. Findings: Patchy interstitial opacities in vascularity demonstrated. Tracheostomy noted. Heart is enlarged. IMPRESSION: Suspected mild interstitial edema. Some component of chronic disease may be present
[2018-10-09] MEDS ORDERED: NS 275ml ONE (12:46)
[2018-10-09] MEDS ORDERED: NS 500ML ONE (12:46)
[2018-10-09] MEDS ORDERED: Tubing IV Secondary IV ONE (12:46)
--- NOTE | 2018-10-09 13:24 | NUR ---
Social Service Note PETEY spoke with Emilia [phone]. No available bed at contracted facility for today. Patient will continue to receive medical intervention at [facility]. Will follow up with Emilia tomorrow.
--- NOTE | 2018-10-09 13:48 | General Progress Note ---
Assessment/Plan Problem List: (1) UTI (urinary tract infection) ICD Codes: N39.0 - Urinary tract infection, site not specified SNOMED: 83446782 (2) Anemia ICD Codes: D64.9 - Anemia, unspecified SNOMED: 762577494 (3) Seizure ICD Codes: R56.9 - Unspecified convulsions SNOMED: 55630155 (4) CHF (congestive heart failure) ICD Codes: I50.9 - Heart failure, unspecified SNOMED: 68582876 (5) Acute and chronic respiratory failure ICD Codes: J96.20 - Acute and chronic respiratory failure, unspecified whether with hypoxia or hypercapnia SNOMED: 06438557, 56725864 (6) HTN (hypertension) ICD Codes: I10 - Essential (primary) hypertension SNOMED: 85635658 Status: unchanged Assessment/Plan vent abx cbc bmp am Subjective Constitutional: Reports: weakness Allergies: Coded Allergies: PEANUT (Verified Allergy, Unknown, 09/22/16) All Systems: reviewed and negative except above Subjective trach vent altered Objective Last 24 Hour Vital Signs Date Time Temp Pulse Resp B/P (MAP) Pulse Ox O2 Delivery O2 Flow Rate FiO2 10/09/18 13:17 84 18 40 10/09/18 12:00 Mechanical Ventilator 10/09/18 12:00 89 10/09/18 12:00 98.8 88 16 105/60 (75) 100 10/09/18 11:08 91 19 40 10/09/18 11:07 35 10/09/18 09:10 100 10/09/18 09:08 98 26 35 10/09/18 08:00 Mechanical Ventilator 10/09/18 08:00 98.5 99 22 136/72 (93) 100 10/09/18 08:00 100 10/09/18 08:00 35 10/09/18 06:55 96 28 35 10/09/18 04:57 91 23 35 10/09/18 04:00 97.8 94 28 114/59 (77) 98 10/09/18 04:00 35 10/09/18 04:00 Mechanical Ventilator 10/09/18 03:45 96 10/09/18 03:12 94 25 35 10/09/18 01:00 97 32 35 10/09/18 00:00 97.6 95 30 128/68 (88) 98 10/09/18 00:00 Mechanical Ventilator 10/08/18 23:59 97 10/08/18 23:03 101 31 35 10/08/18 21:25 101 30 35 10/08/18 20:00 99.5 40 118/71 (87) 95 10/08/18 20:00 35 10/08/18 20:00 Mechanical Ventilator 10/08/18 19:06 104 10/08/18 18:46 101 29 35 10/08/18 16:49 102 29 35 10/08/18 16:00 99.9 30 109/50 (69) 96 10/08/18 16:00 104 10/08/18 16:00 Mechanical Ventilator 10/08/18 16:00 35 10/08/18 14:36 97 27 35 Intake and Output 10/08/18 10/09/18 19:00 07:00 Intake Total 370 ml 320 ml Output Total 200 ml Balance 170 ml 320 ml Intake Free Water 100 ml 50 ml Tube Feeding 270 ml 270 ml Output Urine Total 200 ml Laboratory Tests 10/09/18 03:30: White Blood Count 8.5, Red Blood Count 3.55L, Hemoglobin 12.0, Hematocrit 35.6L , Mean Corpuscular Volume 100H, Mean Corpuscular Hemoglobin 33.8H, Mean Corpuscular Hemoglobin Concent 33.7, Red Cell Distribution Width 13.4, Platelet Count 144L, Mean Platelet Volume 11.1H, Neutrophils (%) (Auto) 77.9H, Lymphocytes (%) (Auto) 7.8L, Monocytes (%) (Auto) 12.9H, Eosinophils (%) (Auto) 1.0, Basophils (%) (Auto) 0.4, Sodium Level 139, Potassium Level 2.9L, Chloride Level 106, Carbon Dioxide Level 25, Anion Gap 8, Blood Urea Nitrogen 15, Creatinine 0.9, Estimat Glomerular Filtration Rate , Glucose Level 122H, Calcium Level 9.1, Total Bilirubin 0.6, Aspartate Amino Transf (AST/SGOT) 55H, Alanine Aminotransferase (ALT/SGPT) 51, Alkaline Phosphatase 216H, Pro-B-Type Natriuretic Peptide 2992H, Total Protein 7.9, Albumin 2.4L, Globulin 5.5, Albumin/Globulin Ratio 0.4L Height (Feet): 5 Height (Inches): 3.00 Weight (Pounds): 225 General Appearance: lethargic EENT: normal ENT inspection Neck: normal alignment Cardiovascular: normal peripheral pulses, normal rate, regular rhythm Respiratory/Chest: chest wall non-tender, lungs clear, normal breath sounds Abdomen: normal bowel sounds, non tender, soft Extremities: normal inspection Edema: no edema noted Arm (L), no edema noted Arm (R), no edema noted Leg (L), no edema noted Leg (R), no edema noted Pedal (L), no edema noted Pedal (R), no edema noted Generalized Neurologic: motor weakness Skin: normal pigmentation, warm/dry Juaquin Ramos DO Oct 09, 2018 13:48
--- NOTE | 2018-10-09 14:10 | NUR ---
*-* INSURANCE *-* ALL CLINICALS AND REVIEWS FAXED TO: YESSI: AFSHIN Alvarez#: [phone] F#: [phone] PLEASE FAX CLINICALS TO ABOVE #
--- NOTE | 2018-10-09 14:16 | Diagnostic Imaging Report ---
APPROVED REPORT CPT Code: 45378 Present Symptoms Lower Extremity Pain: BILATERAL: Imaging reveals a patent deep venous system bilaterally. There is no evidence of thrombus within the femoral, popliteal or tibial segments. The greater saphenous veins are also within normal limits. Doppler indicates normal spontaneous flow within these segments.
[2018-10-09 16:00] VITALS: BP 113/57
[2018-10-09] MEDS ORDERED: Cefepime 1gm in D5W 55ml IVPB SCH (16:00)
--- NOTE | 2018-10-09 19:03 | NUR ---
RESPIRATORY NOTE: Received pt on AC 14, 600VT, 40%, PEEP +5. Pt trach-dependent w/ a cuffed, Portex 8 tube. Pt is awake/disoriented. B/S torri. rhonchi, sxn moderate amounts of thick, pale-yellow secretions. Vent plugged into red outlet, ambubag & spare trach kit at bedside. Pt in no apparent distress at this time. Will continue plan of care.
--- NOTE | 2018-10-09 19:10 | NUR ---
NURSE NOTES: Received report from Jocelin Guerra RN. Patient is awake in bed, nonverbal. Sinus tach on surveillance monitor. Trach-vent settings: Portex 8, AC 14, Vt 600, FiO2 35%, PEEP 5 and saturating well. Receiving Jevity 1.2 @ 30 cc/hr via GT and tolerating well. Purewick catheter in place and draining well to suction. Left upper arm 18g IV TKO, intact and patent. Bed locked in lowest position with padded side rails up x3. Call light left within reach. Will continue to monitor.
--- NOTE | 2018-10-09 19:15 | NUR ---
HAND-OFF: Report given to CESAR Bose. Patient stable and in no distress.
[2018-10-09] MEDS: Vancomycin 1 GM in D5W 275 ML IVPB SCH (19:46)
[2018-10-09 20:00] VITALS: BP 126/61
[2018-10-10] VITALS: BP 128/61
[2018-10-10 04:00] VITALS: BP 121/74
[2018-10-10 05:40] LABS: BASOPHILS % (AUTO) 0.5 % (0.0-2.0); EOSINOPHILS % (AUTO) 2.9 % (0.0-3.0); HEMATOCRIT 33.9 % (37.0-47.0); HEMOGLOBIN 11.4 G/DL (12.0-16.0); LYMPHOCYTES % (AUTO) 15.6 % (20.0-45.0); MEAN CORPUSCULAR VOLUME 100 FL (80-99); MONOCYTES % (AUTO) 14.8 % (1.0-10.0); NEUTROPHILS % (AUTO) 66.2 % (45.0-75.0); PLATELET COUNT 136 K/UL (150-450); RED BLOOD COUNT 3.41 M/UL (4.20-5.40); RED CELL DISTRIBUTION WIDTH 12.7 % (11.6-14.8); WHITE BLOOD COUNT 5.7 K/UL (4.8-10.8)
[2018-10-10 06:37] LABS: ALANINE AMINOTRANSFERASE 43 U/L (12-78); ALBUMIN 2.3 G/DL (3.4-5.0); ALBUMIN/GLOBULIN RATIO 0.5 (1.0-2.7); ALKALINE PHOSPHATASE 196 U/L (46-116); ANION GAP 8 mmol/L (5-15); ASPARTATE AMINO TRANSFERASE 46 U/L (15-37); BILIRUBIN,TOTAL 0.7 MG/DL (0.2-1.0); BLOOD UREA NITROGEN 14 mg/dL (7-18); CALCIUM 9.4 MG/DL (8.5-10.1); CARBON DIOXIDE 25 MMOL/L (21-32); CHLORIDE 106 MMOL/L (98-107); CREATININE 0.8 MG/DL (0.55-1.30); POTASSIUM 3.5 MMOL/L (3.5-5.1); SODIUM 139 MMOL/L (136-145)
--- NOTE | 2018-10-10 07:05 | NUR ---
HAND-OFF: Report given to Kendra Mackey RN.
--- NOTE | 2018-10-10 07:06 | NUR ---
NURSE NOTES: RECEIVE PATIENT FROM Brandon OWEN RN. PATIENT IS LYING IN BED, ABLE TO OPEN EYES. HOOKED TO VIRTUAL RECRUITER. TRACH TO VENT. PORTEX 8 WITH VENT SETTINGS AC 148, TV 600M, FIO2 35%, PEEP 5. NO SIGNS OF RESPI OR CARDIO DISTRESS OF THE MOMENT. GT IN PLACE WITH GTF RUNNING JEVITY 1.2 AT 30CC/HR. [facility] IV ON L UA G18, TKO. CALL LIGHT WITHIN REACH, BED AT LOWEST POSITION, SIDE RAILS UP. WILL CONTINUE TO MONITOR.
[2018-10-10 08:00] VITALS: BP 117/54
--- NOTE | 2018-10-10 08:56 | NUR ---
RADIOLOGY DEPT CHEST X-RAY DONE.-PD
[2018-10-10] MEDS: Pantoprazole Inj IV SCH (09:02)
[2018-10-10] MEDS: levETIRAcetam 500mg/5ml Liquid GT SCH ×2 (09:05→21:05)
[2018-10-10] MEDS: Heparin 5000 units/ml inj SUBQ SCH ×2 (09:05→21:07)
--- NOTE | 2018-10-10 11:32 | Pulmonolgy Critical Care Note ---
Critical Care - Asmt/Plan Problems: (1) Acute and chronic respiratory failure (2) Aspiration pneumonia (3) Sepsis (4) Chronic respiratory failure (5) Vegetative state (6) Feeding by G-tube (7) Functional paraplegia Respiratory: monitor respiratory rate, adjust FIO2, CXR Cardiac: continue to monitor HR/BP Renal: F/U I&O, check electrolytes Endocrine: monitor blood sugar, check HgA1C Hematologic: monitor H/H, transfuse if hgb<8.5 Neurologic: PRN Ativan, keep patient comfortable Affect: PRN ativan Prophylaxis: Protonix, Heparin Critical Care - Objective Last 24 Hour Vital Signs Date Time Temp Pulse Resp B/P (MAP) Pulse Ox O2 Delivery O2 Flow Rate FiO2 10/10/18 08:33 71 16 40 10/10/18 08:00 98.0 67 14 117/54 (75) 99 10/10/18 08:00 Mechanical Ventilator 10/10/18 08:00 72 10/10/18 08:00 35 10/10/18 06:50 69 14 40 10/10/18 05:11 73 14 40 10/10/18 04:00 98.2 79 17 121/74 (90) 97 10/10/18 04:00 Mechanical Ventilator 10/10/18 04:00 35 10/10/18 03:21 77 10/10/18 03:14 78 16 40 10/10/18 01:08 72 18 40 10/10/18 00:00 81 10/10/18 00:00 99.1 81 18 128/61 (83) 98 10/10/18 00:00 Mechanical Ventilator 10/09/18 23:17 80 17 40 10/09/18 21:44 84 16 40 10/09/18 20:00 Mechanical Ventilator 10/09/18 20:00 98.5 80 17 126/61 (82) 97 10/09/18 20:00 35 10/09/18 19:35 80 10/09/18 19:01 85 23 40 10/09/18 18:00 Mechanical Ventilator 10/09/18 17:00 87 19 40 10/09/18 16:00 35 10/09/18 16:00 98.6 90 24 113/57 (75) 96 10/09/18 16:00 Mechanical Ventilator 10/09/18 15:34 88 10/09/18 15:05 85 17 40 10/09/18 13:17 84 18 40 10/09/18 12:00 Mechanical Ventilator 10/09/18 12:00 89 10/09/18 12:00 98.8 88 16 105/60 (75) 100 Status: awake HEENT: atraumatic Lungs: clear Heart: HR/BP stable, regular Abdomen: non-tender, active bowel sounds Extremities: edema Decubiti: location Micro: Microbiology Date/Time Source Procedure Growth Status 10/07/18 14:15 Blood Blood Culture - Final Staphylococcus Epidermidis Complete 10/07/18 14:00 Blood Blood Culture - Final Staphylococcus Epidermidis Complete 10/07/18 16:00 Other Gram Stain - Final Resulted 10/07/18 16:00 Wound Culture - Preliminary Escherichia Coli Proteus Mirabilis Streptococcus Group G Resulted 10/07/18 16:00 Nasal Nares MRSA Culture - Final NO METHICILLIN RESISTANT STAPH AUREUS... Complete 10/07/18 14:15 Urine,Clean Catch Urine Culture - Final Escherichia Coli - Esbl Complete 10/07/18 16:00 Rectum VRE Culture - Final Enterococcus Faecalis - Vre Complete 10/07/18 16:00 Rectum - Final NO CARBAPENEM-RESISTANT ENTEROBACTERI... Complete Critical Care - Subjective ROS Limited/Unobtainable: No Condition: critical EKG Rhythm: Sinus Bradycardia FI02: 40 Vent Support Breath Rate: 14 Vent Support Mode: AC Vent Tidal Volume: 600 Sputum Amount: Moderate PEEP: 5.0 PIP: 30 Tube Feeding Amount: 30 I&O: Intake and Output 10/09/18 10/10/18 19:00 07:00 Intake Total 430 ml 675.0 ml Output Total 200 ml 400 ml Balance 230 ml 275.0 ml Intake Free Water 100 ml 50 ml IV Total 275.0 ml Tube Feeding 330 ml 300 ml Other 50 ml Output Urine Total 200 ml 400 ml # Bowel Movements 2 Labs: Laboratory Tests Test 10/10/18 03:25 White Blood Count 5.7 K/UL (4.8-10.8) Red Blood Count 3.41 M/UL (4.20-5.40) L Hemoglobin 11.4 G/DL (12.0-16.0) L Hematocrit 33.9 % (37.0-47.0) L Mean Corpuscular Volume 100 FL (80-99) H Mean Corpuscular Hemoglobin 33.3 PG (27.0-31.0) H Mean Corpuscular Hemoglobin Concent 33.5 G/DL (32.0-36.0) Red Cell Distribution Width 12.7 % (11.6-14.8) Platelet Count 136 K/UL (150-450) L Mean Platelet Volume 9.6 FL (6.5-10.1) Neutrophils (%) (Auto) 66.2 % (45.0-75.0) Lymphocytes (%) (Auto) 15.6 % (20.0-45.0) L Monocytes (%) (Auto) 14.8 % (1.0-10.0) H Eosinophils (%) (Auto) 2.9 % (0.0-3.0) Basophils (%) (Auto) 0.5 % (0.0-2.0) Sodium Level 139 MMOL/L (136-145) Potassium Level 3.5 MMOL/L (3.5-5.1) Chloride Level 106 MMOL/L (98-107) Carbon Dioxide Level 25 MMOL/L (21-32) Anion Gap 8 mmol/L (5-15) Blood Urea Nitrogen 14 mg/dL (7-18) Creatinine 0.8 MG/DL (0.55-1.30) Estimat Glomerular Filtration Rate mL/min (>60) Glucose Level 94 MG/DL (74-106) Calcium Level 9.4 MG/DL (8.5-10.1) Total Bilirubin 0.7 MG/DL (0.2-1.0) Aspartate Amino Transf (AST/SGOT) 46 U/L (15-37) H Alanine Aminotransferase (ALT/SGPT) 43 U/L (12-78) Alkaline Phosphatase 196 U/L (46-116) H Pro-B-Type Natriuretic Peptide 1441 pg/mL (0-125) H Total Protein 7.4 G/DL (6.4-8.2) Albumin 2.3 G/DL (3.4-5.0) L Globulin 5.1 g/dL Albumin/Globulin Ratio 0.5 (1.0-2.7) L Savi Rodriguez MD Oct 10, 2018 11:32
[2018-10-10 12:00] VITALS: BP 118/52
--- NOTE | 2018-10-10 12:17 | Infectious Diseases Prog Note ---
Assessment/Plan Assessment/Plan 78 who was sent to the ED from her retirement 10/07/18 with fever and Vomiting. She was also reported to have diarrhea. 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 We will continue to follow the patient during this hospitalization. Subjective Allergies: Coded Allergies: PEANUT (Verified Allergy, Unknown, 09/22/16) Subjective Afebrile No leukcoytosis Objective Vital Signs Last 24 Hour Vital Signs Date Time Temp Pulse Resp B/P (MAP) Pulse Ox O2 Delivery O2 Flow Rate FiO2 10/10/18 10:40 73 16 40 10/10/18 08:33 71 16 40 10/10/18 08:00 98.0 67 14 117/54 (75) 99 10/10/18 08:00 Mechanical Ventilator 10/10/18 08:00 72 10/10/18 08:00 35 10/10/18 06:50 69 14 40 10/10/18 05:11 73 14 40 10/10/18 04:00 98.2 79 17 121/74 (90) 97 10/10/18 04:00 Mechanical Ventilator 10/10/18 04:00 35 10/10/18 03:21 77 10/10/18 03:14 78 16 40 10/10/18 01:08 72 18 40 10/10/18 00:00 81 10/10/18 00:00 99.1 81 18 128/61 (83) 98 10/10/18 00:00 Mechanical Ventilator 10/09/18 23:17 80 17 40 10/09/18 21:44 84 16 40 10/09/18 20:00 Mechanical Ventilator 10/09/18 20:00 98.5 80 17 126/61 (82) 97 10/09/18 20:00 35 10/09/18 19:35 80 10/09/18 19:01 85 23 40 10/09/18 18:00 Mechanical Ventilator 10/09/18 17:00 87 19 40 10/09/18 16:00 35 10/09/18 16:00 98.6 90 24 113/57 (75) 96 10/09/18 16:00 Mechanical Ventilator 10/09/18 15:34 88 10/09/18 15:05 85 17 40 10/09/18 13:17 84 18 40 Height (Feet): 5 Height (Inches): 3.00 Weight (Pounds): 230 Objective Gen: NAD, On vent, opens and tracks with eyes HEENT: NCAT, MMM, EOMI LUNGS: CTAB, No W CARDS: RRR, S1, S2, No M/R/G, ABD: Soft, NT, ND, + BS PEG erythema healing Microbiology Date/Time Source Procedure Growth Status 10/07/18 14:15 Blood Blood Culture - Final Staphylococcus Epidermidis Complete 10/07/18 14:00 Blood Blood Culture - Final Staphylococcus Epidermidis Complete 10/07/18 16:00 Other Gram Stain - Final Resulted 10/07/18 16:00 Wound Culture - Preliminary Escherichia Coli Proteus Mirabilis Streptococcus Group G Resulted 10/07/18 16:00 Nasal Nares MRSA Culture - Final NO METHICILLIN RESISTANT STAPH AUREUS... Complete 10/07/18 14:15 Urine,Clean Catch Urine Culture - Final Escherichia Coli - Esbl Complete 10/07/18 16:00 Rectum VRE Culture - Final Enterococcus Faecalis - Vre Complete 10/07/18 16:00 Rectum - Final NO CARBAPENEM-RESISTANT ENTEROBACTERI... Complete Laboratory Tests Test 10/10/18 03:25 White Blood Count 5.7 K/UL (4.8-10.8) Red Blood Count 3.41 M/UL (4.20-5.40) L Hemoglobin 11.4 G/DL (12.0-16.0) L Hematocrit 33.9 % (37.0-47.0) L Mean Corpuscular Volume 100 FL (80-99) H Mean Corpuscular Hemoglobin 33.3 PG (27.0-31.0) H Mean Corpuscular Hemoglobin Concent 33.5 G/DL (32.0-36.0) Red Cell Distribution Width 12.7 % (11.6-14.8) Platelet Count 136 K/UL (150-450) L Mean Platelet Volume 9.6 FL (6.5-10.1) Neutrophils (%) (Auto) 66.2 % (45.0-75.0) Lymphocytes (%) (Auto) 15.6 % (20.0-45.0) L Monocytes (%) (Auto) 14.8 % (1.0-10.0) H Eosinophils (%) (Auto) 2.9 % (0.0-3.0) Basophils (%) (Auto) 0.5 % (0.0-2.0) Sodium Level 139 MMOL/L (136-145) Potassium Level 3.5 MMOL/L (3.5-5.1) Chloride Level 106 MMOL/L (98-107) Carbon Dioxide Level 25 MMOL/L (21-32) Anion Gap 8 mmol/L (5-15) Blood Urea Nitrogen 14 mg/dL (7-18) Creatinine 0.8 MG/DL (0.55-1.30) Estimat Glomerular Filtration Rate mL/min (>60) Glucose Level 94 MG/DL (74-106) Calcium Level 9.4 MG/DL (8.5-10.1) Total Bilirubin 0.7 MG/DL (0.2-1.0) Aspartate Amino Transf (AST/SGOT) 46 U/L (15-37) H Alanine Aminotransferase (ALT/SGPT) 43 U/L (12-78) Alkaline Phosphatase 196 U/L (46-116) H Pro-B-Type Natriuretic Peptide 1441 pg/mL (0-125) H Total Protein 7.4 G/DL (6.4-8.2) Albumin 2.3 G/DL (3.4-5.0) L Globulin 5.1 g/dL Albumin/Globulin Ratio 0.5 (1.0-2.7) L Current Medications Medications (Trade) Dose Ordered Sig/Boubacar Route PRN Reason Start Time Stop Time Status Last Admin Dose Admin Acetaminophen (Tylenol) 650 mg Q4H PRN ORAL FEVER 10/07/18 17:15 11/06/18 17:14 Albuterol/ Ipratropium (Albuterol/ Ipratropium) 3 ml Q4H PRN HHN Shortness of Breath 10/07/18 17:15 10/12/18 17:14 Cefepime HCl 1 gm/ Dextrose 55 ml @ 110 mls/hr Q24H IVPB 10/09/18 16:00 10/16/18 15:59 10/09/18 16:18 Dextrose (Dextrose 50%) 25 ml Q30M PRN IV Hypoglycemia 10/07/18 17:15 11/06/18 17:14 Dextrose (Dextrose 50%) 50 ml Q30M PRN IV Hypoglycemia 10/07/18 18:45 11/06/18 18:44 Heparin Sodium (Porcine) (Heparin 5000 units/ml) 5,000 units EVERY 12 HOURS SUBQ 10/07/18 21:00 11/06/18 20:59 10/10/18 09:05 Levetiracetam (Keppra) 1,500 mg Q12HR GT 10/07/18 21:00 11/06/18 20:59 10/10/18 09:05 Levothyroxine Sodium (Synthroid) 75 mcg ACBREAKFAST GT 10/08/18 06:30 11/07/18 06:29 10/10/18 06:16 Lorazepam (Ativan 2mg/ml 1ml) 2 mg Q2H PRN IV For Anxiety 10/07/18 17:15 10/14/18 17:14 Morphine Sulfate (Morphine Sulfate) 4 mg Q4H PRN IVP Severe Pain (Pain Scale 7-10) 10/07/18 17:15 10/14/18 17:14 Ondansetron HCl (Zofran) 4 mg Q6H PRN IVP Nausea & Vomiting 10/07/18 17:15 11/06/18 17:14 Pantoprazole (Protonix) 40 mg DAILY IV 10/08/18 09:00 11/07/18 08:59 10/10/18 09:02 Polyethylene Glycol (Miralax) 17 gm DAILYPRN PRN GT Constipation 10/07/18 17:15 11/06/18 17:14 Vancomycin HCl (Vanco rx to dose) 1 ea DAILY PRN MISC rx protocol 10/07/18 18:45 11/06/18 18:44 Vancomycin HCl 1 gm/Dextrose 275 ml @ 183.3 mls/ hr Q24H IVPB 10/08/18 20:00 10/13/18 19:59 10/09/18 19:46 Eder Varma MD Oct 10, 2018 12:16
--- NOTE | 2018-10-10 12:51 | NUR ---
Social Service Note Emilia nurse caseworker is out of the office today. Emilia informed PETEY that if a bed because available at [facility] her covering CM will contact PETEY directly. No contact from insurance at this time. Will monitor.
--- NOTE | 2018-10-10 13:22 | Diagnostic Imaging Report ---
Indication: Dyspnea Comparison: 10/09/2018 A single view chest radiograph was obtained. Findings: Interstitial edema with prominent vascularity and heart size, findings compatible with CHF are demonstrated once again. Accounting for differences, there is no definite change. Tracheostomy noted. IMPRESSION: No change from the prior day
[2018-10-10] MEDS: Ertapenem 1 GM in NS 55 ML IVPB SCH (15:43)
[2018-10-10 16:00] VITALS: BP 135/65
--- NOTE | 2018-10-10 16:42 | General Progress Note ---
Assessment/Plan Problem List: (1) UTI (urinary tract infection) ICD Codes: N39.0 - Urinary tract infection, site not specified SNOMED: 89295475 (2) Anemia ICD Codes: D64.9 - Anemia, unspecified SNOMED: 103752971 (3) Seizure ICD Codes: R56.9 - Unspecified convulsions SNOMED: 60007451 (4) CHF (congestive heart failure) ICD Codes: I50.9 - Heart failure, unspecified SNOMED: 98997332 (5) Acute and chronic respiratory failure ICD Codes: J96.20 - Acute and chronic respiratory failure, unspecified whether with hypoxia or hypercapnia SNOMED: 44260717, 79498557 (6) HTN (hypertension) ICD Codes: I10 - Essential (primary) hypertension SNOMED: 77400690 Status: unchanged Assessment/Plan vent abx cbc bmp am Subjective Constitutional: Reports: weakness Allergies: Coded Allergies: PEANUT (Verified Allergy, Unknown, 09/22/16) All Systems: reviewed and negative except above Subjective trach vent altered Objective Last 24 Hour Vital Signs Date Time Temp Pulse Resp B/P (MAP) Pulse Ox O2 Delivery O2 Flow Rate FiO2 10/10/18 15:06 76 18 40 10/10/18 13:00 70 16 40 10/10/18 12:00 71 10/10/18 12:00 35 10/10/18 12:00 Mechanical Ventilator 10/10/18 12:00 98.6 74 17 118/52 (74) 98 10/10/18 10:40 73 16 40 10/10/18 08:33 71 16 40 10/10/18 08:00 98.0 67 14 117/54 (75) 99 10/10/18 08:00 Mechanical Ventilator 10/10/18 08:00 72 10/10/18 08:00 35 10/10/18 06:50 69 14 40 10/10/18 05:11 73 14 40 10/10/18 04:00 98.2 79 17 121/74 (90) 97 10/10/18 04:00 Mechanical Ventilator 10/10/18 04:00 35 10/10/18 03:21 77 10/10/18 03:14 78 16 40 10/10/18 01:08 72 18 40 10/10/18 00:00 81 10/10/18 00:00 99.1 81 18 128/61 (83) 98 10/10/18 00:00 Mechanical Ventilator 10/09/18 23:17 80 17 40 10/09/18 21:44 84 16 40 10/09/18 20:00 Mechanical Ventilator 10/09/18 20:00 98.5 80 17 126/61 (82) 97 10/09/18 20:00 35 10/09/18 19:35 80 10/09/18 19:01 85 23 40 10/09/18 18:00 Mechanical Ventilator 10/09/18 17:00 87 19 40 Intake and Output 10/09/18 10/10/18 18:59 06:59 Intake Total 400 ml 705.0 ml Output Total 200 ml 400 ml Balance 200 ml 305.0 ml Intake Free Water 100 ml 50 ml IV Total 275.0 ml Tube Feeding 300 ml 330 ml Other 50 ml Output Urine Total 200 ml 400 ml # Bowel Movements 2 Laboratory Tests 10/10/18 03:25: White Blood Count 5.7, Red Blood Count 3.41L, Hemoglobin 11.4L, Hematocrit 33.9L , Mean Corpuscular Volume 100H, Mean Corpuscular Hemoglobin 33.3H, Mean Corpuscular Hemoglobin Concent 33.5, Red Cell Distribution Width 12.7, Platelet Count 136L, Mean Platelet Volume 9.6, Neutrophils (%) (Auto) 66.2, Lymphocytes ( %) (Auto) 15.6L, Monocytes (%) (Auto) 14.8H, Eosinophils (%) (Auto) 2.9, Basophils (%) (Auto) 0.5, Sodium Level 139, Potassium Level 3.5, Chloride Level 106, Carbon Dioxide Level 25, Anion Gap 8, Blood Urea Nitrogen 14, Creatinine 0.8, Estimat Glomerular Filtration Rate , Glucose Level 94, Calcium Level 9.4, Total Bilirubin 0.7, Aspartate Amino Transf (AST/SGOT) 46H, Alanine Aminotransferase (ALT/SGPT) 43, Alkaline Phosphatase 196H, Pro-B-Type Natriuretic Peptide 1441H, Total Protein 7.4, Albumin 2.3L, Globulin 5.1, Albumin/Globulin Ratio 0.5L Height (Feet): 5 Height (Inches): 3.00 Weight (Pounds): 230 General Appearance: lethargic EENT: normal ENT inspection Neck: normal alignment Cardiovascular: normal peripheral pulses, normal rate, regular rhythm Respiratory/Chest: chest wall non-tender, lungs clear, normal breath sounds Abdomen: normal bowel sounds, non tender, soft Extremities: normal inspection Edema: no edema noted Arm (L), no edema noted Arm (R), no edema noted Leg (L), no edema noted Leg (R), no edema noted Pedal (L), no edema noted Pedal (R), no edema noted Generalized Neurologic: motor weakness Juaquin Ramos DO Oct 10, 2018 16:42
--- NOTE | 2018-10-10 17:09 | NUR ---
NURSE NOTES: PATIENT KEPT CLEAN AND DRY. NO SIGNS OF DISTRESS. WILL CONTINUE TO MONITOR.
--- NOTE | 2018-10-10 19:36 | NUR ---
HAND-OFF: Report given to Clemente Thompson RN.
--- NOTE | 2018-10-10 19:36 | NUR ---
NURSE NOTES: Report received from CESAR Crawley. Patient seen in bed in de la cruz position. patient is on vent with setting of portex 8, AC 14, TV 600, fio2 35%, PEEP 5. Spo2 is 99% at this time. Patient is on purewick and is intact. Currently on GTF of jevrity 1.2 @ 30cc/hr, tolerating well. IV site is right hand and is intact. Bed is in lowest position. Call light is within easy reach. will continue to monitor.
[2018-10-10 20:00] VITALS: BP 120/58
[2018-10-10] MEDS: Vancomycin 1 GM in D5W 275 ML IVPB SCH (21:04)
[2018-10-11] VITALS: BP 108/60
[2018-10-11 04:00] VITALS: BP 123/60
[2018-10-11 05:44] LABS: BASOPHILS % (AUTO) 0.9 % (0.0-2.0); EOSINOPHILS % (AUTO) 3.3 % (0.0-3.0); HEMATOCRIT 33.2 % (37.0-47.0); HEMOGLOBIN 11.3 G/DL (12.0-16.0); LYMPHOCYTES % (AUTO) 17.3 % (20.0-45.0); MEAN CORPUSCULAR VOLUME 100 FL (80-99); MONOCYTES % (AUTO) 13.9 % (1.0-10.0); NEUTROPHILS % (AUTO) 64.6 % (45.0-75.0); PLATELET COUNT 133 K/UL (150-450); RED BLOOD COUNT 3.33 M/UL (4.20-5.40); RED CELL DISTRIBUTION WIDTH 12.7 % (11.6-14.8); WHITE BLOOD COUNT 4.9 K/UL (4.8-10.8)
[2018-10-11 06:12] LABS: ANION GAP 8 mmol/L (5-15); BLOOD UREA NITROGEN 14 mg/dL (7-18); CARBON DIOXIDE 26 MMOL/L (21-32); CHLORIDE 106 MMOL/L (98-107); CREATININE 0.9 MG/DL (0.55-1.30); POTASSIUM 3.4 MMOL/L (3.5-5.1); SODIUM 140 MMOL/L (136-145)
--- NOTE | 2018-10-11 06:58 | NUR ---
HAND-OFF: Report given to CESAR Crawley .
--- NOTE | 2018-10-11 06:59 | NUR ---
NURSE NOTES: RECEIVE PATIENT FROM Clemente KNOX RN. PATIENT IS LYING IN BED, AWAKE BUT NONVERBAL. HOOKED TO PROCESS HELPER. TRACH TO VENT. PORTEX 8 WITH VENT SETTINGS AC 14, TV 600, FIO2 35%, PEEP 5. NO SIGNS OF RESPI OR CARDIO DISTRESS OF THE MOMENT. GT IN PLACE WITH GTF RUNNING [employer] 1.2 AT 30CC/HR. ON PUREWICK. IV ON R HAND G22, TKO. CALL LIGHT WITHIN REACH, BED AT LOWEST POSITION, SIDE RAILS UP. WILL CONTINUE TO MONITOR.
[2018-10-11 08:00] VITALS: BP 112/51
[2018-10-11] MEDS: Pantoprazole Inj IV SCH (08:21)
[2018-10-11] MEDS: levETIRAcetam 500mg/5ml Liquid GT SCH ×2 (08:22→20:14)
[2018-10-11] MEDS: Heparin 5000 units/ml inj SUBQ SCH ×2 (08:23→20:15)
--- NOTE | 2018-10-11 08:52 | Infectious Diseases Prog Note ---
Assessment/Plan Assessment/Plan 78 who was sent to the ED from her assisted 10/07/18 with fever and Vomiting. She was also reported to have diarrhea. 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 We will continue to follow the patient during this hospitalization. Subjective Allergies: Coded Allergies: PEANUT (Verified Allergy, Unknown, 09/22/16) Subjective Afebrile KRISTY No Leukocytosis Objective Vital Signs Last 24 Hour Vital Signs Date Time Temp Pulse Resp B/P (MAP) Pulse Ox O2 Delivery O2 Flow Rate FiO2 10/11/18 06:45 61 21 40 10/11/18 05:03 68 17 40 10/11/18 04:00 35 10/11/18 04:00 98.8 69 17 123/60 (81) 98 10/11/18 04:00 Mechanical Ventilator 10/11/18 03:36 70 10/11/18 03:17 67 20 40 10/11/18 01:27 66 17 40 10/11/18 00:00 98.7 74 15 108/60 (76) 100 10/11/18 00:00 Mechanical Ventilator 10/11/18 00:00 57 10/10/18 23:01 67 22 40 10/10/18 21:50 68 19 40 10/10/18 20:00 99.1 75 16 120/58 (78) 99 10/10/18 20:00 71 10/10/18 20:00 35 10/10/18 20:00 Mechanical Ventilator 10/10/18 19:33 84 16 40 10/10/18 16:58 72 21 40 10/10/18 16:00 Mechanical Ventilator 10/10/18 16:00 68 10/10/18 16:00 99.0 79 16 135/65 (88) 99 10/10/18 16:00 35 10/10/18 15:06 76 18 40 10/10/18 13:00 70 16 40 10/10/18 12:00 71 10/10/18 12:00 35 10/10/18 12:00 Mechanical Ventilator 10/10/18 12:00 98.6 74 17 118/52 (74) 98 10/10/18 10:40 73 16 40 Height (Feet): 5 Height (Inches): 3.00 Weight (Pounds): 230 Objective Gen: NAD, On vent, opens and tracks with eyes HEENT: NCAT, MMM, EOMI ABD: Soft, NT, ND, + BS PEG erythema some gastric contents leaking Microbiology Date/Time Source Procedure Growth Status 10/09/18 10:00 Blood Blood Culture - Preliminary NO GROWTH AFTER 24 HOURS Resulted 10/09/18 09:45 Blood Blood Culture - Preliminary NO GROWTH AFTER 24 HOURS Resulted Laboratory Tests Test 10/10/18 19:15 10/11/18 03:45 Vancomycin Level Trough 10.3 ug/mL (5.0-12.0) White Blood Count 4.9 K/UL (4.8-10.8) Red Blood Count 3.33 M/UL (4.20-5.40) L Hemoglobin 11.3 G/DL (12.0-16.0) L Hematocrit 33.2 % (37.0-47.0) L Mean Corpuscular Volume 100 FL (80-99) H Mean Corpuscular Hemoglobin 33.9 PG (27.0-31.0) H Mean Corpuscular Hemoglobin Concent 34.1 G/DL (32.0-36.0) Red Cell Distribution Width 12.7 % (11.6-14.8) Platelet Count 133 K/UL (150-450) L Mean Platelet Volume 9.7 FL (6.5-10.1) Neutrophils (%) (Auto) 64.6 % (45.0-75.0) Lymphocytes (%) (Auto) 17.3 % (20.0-45.0) L Monocytes (%) (Auto) 13.9 % (1.0-10.0) H Eosinophils (%) (Auto) 3.3 % (0.0-3.0) H Basophils (%) (Auto) 0.9 % (0.0-2.0) Sodium Level 140 MMOL/L (136-145) Potassium Level 3.4 MMOL/L (3.5-5.1) L Chloride Level 106 MMOL/L (98-107) Carbon Dioxide Level 26 MMOL/L (21-32) Anion Gap 8 mmol/L (5-15) Blood Urea Nitrogen 14 mg/dL (7-18) Creatinine 0.9 MG/DL (0.55-1.30) Estimat Glomerular Filtration Rate mL/min (>60) Glucose Level 98 MG/DL (74-106) Calcium Level 9.0 MG/DL (8.5-10.1) Current Medications Medications (Trade) Dose Ordered Sig/Boubacar Route PRN Reason Start Time Stop Time Status Last Admin Dose Admin Acetaminophen (Tylenol) 650 mg Q4H PRN ORAL FEVER 10/07/18 17:15 11/06/18 17:14 Albuterol/ Ipratropium (Albuterol/ Ipratropium) 3 ml Q4H PRN HHN Shortness of Breath 10/07/18 17:15 10/12/18 17:14 Dextrose (Dextrose 50%) 25 ml Q30M PRN IV Hypoglycemia 10/07/18 17:15 11/06/18 17:14 Dextrose (Dextrose 50%) 50 ml Q30M PRN IV Hypoglycemia 10/07/18 18:45 11/06/18 18:44 Ertapenem 1 gm/ Sodium Chloride 55 ml @ 110 mls/hr Q24H IVPB 10/10/18 15:00 10/15/18 14:59 10/10/18 15:43 Heparin Sodium (Porcine) (Heparin 5000 units/ml) 5,000 units EVERY 12 HOURS SUBQ 10/07/18 21:00 11/06/18 20:59 10/11/18 08:23 Levetiracetam (Keppra) 1,500 mg Q12HR GT 10/07/18 21:00 11/06/18 20:59 10/11/18 08:22 Levothyroxine Sodium (Synthroid) 75 mcg ACBREAKFAST GT 10/08/18 06:30 11/07/18 06:29 10/11/18 05:47 Lorazepam (Ativan 2mg/ml 1ml) 2 mg Q2H PRN IV For Anxiety 10/07/18 17:15 10/14/18 17:14 Morphine Sulfate (Morphine Sulfate) 4 mg Q4H PRN IVP Severe Pain (Pain Scale 7-10) 10/07/18 17:15 10/14/18 17:14 Ondansetron HCl (Zofran) 4 mg Q6H PRN IVP Nausea & Vomiting 10/07/18 17:15 11/06/18 17:14 Pantoprazole (Protonix) 40 mg DAILY IV 10/08/18 09:00 11/07/18 08:59 10/11/18 08:21 Polyethylene Glycol (Miralax) 17 gm DAILYPRN PRN GT Constipation 10/07/18 17:15 11/06/18 17:14 Vancomycin HCl (Vanco rx to dose) 1 ea DAILY PRN MISC rx protocol 10/07/18 18:45 11/06/18 18:44 Vancomycin HCl 1 gm/Dextrose 275 ml @ 183.3 mls/ hr Q24H IVPB 10/08/18 20:00 10/13/18 19:59 10/10/18 21:04 Eder Varma MD Oct 11, 2018 08:52
--- NOTE | 2018-10-11 10:16 | Pulmonolgy Critical Care Note ---
Critical Care - Asmt/Plan Problems: (1) Acute and chronic respiratory failure (2) Aspiration pneumonia (3) Sepsis (4) Chronic respiratory failure (5) Vegetative state (6) Feeding by G-tube (7) Functional paraplegia Respiratory: monitor respiratory rate, adjust FIO2, CXR Cardiac: continue pressors, continue to monitor HR/BP Renal: F/U I&O, check electrolytes Infectious Disease: check cultures, continue antibiotics Gastrointestinal: continue feedings/current rate Affect: PRN ativan Prophylaxis: Heparin Disposition: keep in ICU 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: 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, consultants, high risk case managermarketing systems manager - Objective Last 24 Hour Vital Signs Date Time Temp Pulse Resp B/P (MAP) Pulse Ox O2 Delivery O2 Flow Rate FiO2 10/11/18 08:00 98.0 62 17 112/51 (71) 100 10/11/18 08:00 Mechanical Ventilator 10/11/18 08:00 35 10/11/18 06:45 61 21 40 10/11/18 05:03 68 17 40 10/11/18 04:00 35 10/11/18 04:00 98.8 69 17 123/60 (81) 98 10/11/18 04:00 Mechanical Ventilator 10/11/18 03:36 70 10/11/18 03:17 67 20 40 10/11/18 01:27 66 17 40 10/11/18 00:00 98.7 74 15 108/60 (76) 100 10/11/18 00:00 Mechanical Ventilator 10/11/18 00:00 57 10/10/18 23:01 67 22 40 10/10/18 21:50 68 19 40 10/10/18 20:00 99.1 75 16 120/58 (78) 99 10/10/18 20:00 71 10/10/18 20:00 35 10/10/18 20:00 Mechanical Ventilator 10/10/18 19:33 84 16 40 10/10/18 16:58 72 21 40 10/10/18 16:00 Mechanical Ventilator 10/10/18 16:00 68 10/10/18 16:00 99.0 79 16 135/65 (88) 99 10/10/18 16:00 35 10/10/18 15:06 76 18 40 10/10/18 13:00 70 16 40 10/10/18 12:00 71 10/10/18 12:00 35 10/10/18 12:00 Mechanical Ventilator 10/10/18 12:00 98.6 74 17 118/52 (74) 98 10/10/18 10:40 73 16 40 Status: awake Condition: critical Neck: full ROM Heart: HR/BP stable Abdomen: soft Extremities: no C/C/E Decubiti: location Micro: Microbiology Date/Time Source Procedure Growth Status 10/09/18 10:00 Blood Blood Culture - Preliminary NO GROWTH AFTER 24 HOURS Resulted 10/09/18 09:45 Blood Blood Culture - Preliminary NO GROWTH AFTER 24 HOURS Resulted Critical Care - Subjective ROS Limited/Unobtainable: Yes Condition: critical EKG Rhythm: Sinus Rhythm FI02: 35 Vent Support Breath Rate: 14 Vent Support Mode: AC Vent Tidal Volume: 600 Sputum Amount: Moderate PEEP: 5.0 PIP: 26 Tube Feeding Amount: 30 I&O: Intake and Output 10/10/18 10/11/18 19:00 07:00 Intake Total 460 ml 796.6 ml Output Total 550 ml Balance 460 ml 246.6 ml Intake Free Water 50 ml 100 ml IV Total 110 ml 366.6 ml Tube Feeding 300 ml 330 ml Output Urine Total 550 ml # Bowel Movements 1 CXR: no changes Labs: Laboratory Tests Test 10/10/18 19:15 10/11/18 03:45 Vancomycin Level Trough 10.3 ug/mL (5.0-12.0) White Blood Count 4.9 K/UL (4.8-10.8) Red Blood Count 3.33 M/UL (4.20-5.40) L Hemoglobin 11.3 G/DL (12.0-16.0) L Hematocrit 33.2 % (37.0-47.0) L Mean Corpuscular Volume 100 FL (80-99) H Mean Corpuscular Hemoglobin 33.9 PG (27.0-31.0) H Mean Corpuscular Hemoglobin Concent 34.1 G/DL (32.0-36.0) Red Cell Distribution Width 12.7 % (11.6-14.8) Platelet Count 133 K/UL (150-450) L Mean Platelet Volume 9.7 FL (6.5-10.1) Neutrophils (%) (Auto) 64.6 % (45.0-75.0) Lymphocytes (%) (Auto) 17.3 % (20.0-45.0) L Monocytes (%) (Auto) 13.9 % (1.0-10.0) H Eosinophils (%) (Auto) 3.3 % (0.0-3.0) H Basophils (%) (Auto) 0.9 % (0.0-2.0) Sodium Level 140 MMOL/L (136-145) Potassium Level 3.4 MMOL/L (3.5-5.1) L Chloride Level 106 MMOL/L (98-107) Carbon Dioxide Level 26 MMOL/L (21-32) Anion Gap 8 mmol/L (5-15) Blood Urea Nitrogen 14 mg/dL (7-18) Creatinine 0.9 MG/DL (0.55-1.30) Estimat Glomerular Filtration Rate mL/min (>60) Glucose Level 98 MG/DL (74-106) Calcium Level 9.0 MG/DL (8.5-10.1) Savi Rodriguez MD Oct 11, 2018 10:16
[2018-10-11 12:00] VITALS: BP 111/53
--- NOTE | 2018-10-11 12:49 | General Progress Note ---
Assessment/Plan Problem List: (1) UTI (urinary tract infection) ICD Codes: N39.0 - Urinary tract infection, site not specified SNOMED: 53042845 (2) Anemia ICD Codes: D64.9 - Anemia, unspecified SNOMED: 667094523 (3) Seizure ICD Codes: R56.9 - Unspecified convulsions SNOMED: 66991672 (4) CHF (congestive heart failure) ICD Codes: I50.9 - Heart failure, unspecified SNOMED: 70728776 (5) Acute and chronic respiratory failure ICD Codes: J96.20 - Acute and chronic respiratory failure, unspecified whether with hypoxia or hypercapnia SNOMED: 81887187, 48476011 (6) HTN (hypertension) ICD Codes: I10 - Essential (primary) hypertension SNOMED: 89224774 Status: unchanged Assessment/Plan vent abx cbc bmp am dc plan if clear Subjective Constitutional: Reports: weakness Allergies: Coded Allergies: PEANUT (Verified Allergy, Unknown, 09/22/16) All Systems: reviewed and negative except above Subjective trach vent altered Objective Last 24 Hour Vital Signs Date Time Temp Pulse Resp B/P (MAP) Pulse Ox O2 Delivery O2 Flow Rate FiO2 10/11/18 11:50 58 10/11/18 11:26 65 18 40 10/11/18 08:45 67 20 40 10/11/18 08:00 98.0 62 17 112/51 (71) 100 10/11/18 08:00 Mechanical Ventilator 10/11/18 08:00 35 10/11/18 07:19 55 10/11/18 06:45 61 21 40 10/11/18 05:03 68 17 40 10/11/18 04:00 35 10/11/18 04:00 98.8 69 17 123/60 (81) 98 10/11/18 04:00 Mechanical Ventilator 10/11/18 03:36 70 10/11/18 03:17 67 20 40 10/11/18 01:27 66 17 40 10/11/18 00:00 98.7 74 15 108/60 (76) 100 10/11/18 00:00 Mechanical Ventilator 10/11/18 00:00 57 10/10/18 23:01 67 22 40 10/10/18 21:50 68 19 40 10/10/18 20:00 99.1 75 16 120/58 (78) 99 10/10/18 20:00 71 10/10/18 20:00 35 10/10/18 20:00 Mechanical Ventilator 10/10/18 19:33 84 16 40 10/10/18 16:58 72 21 40 10/10/18 16:00 Mechanical Ventilator 10/10/18 16:00 68 10/10/18 16:00 99.0 79 16 135/65 (88) 99 10/10/18 16:00 35 10/10/18 15:06 76 18 40 10/10/18 13:00 70 16 40 Intake and Output 10/10/18 10/11/18 19:00 07:00 Intake Total 460 ml 796.6 ml Output Total 550 ml Balance 460 ml 246.6 ml Intake Free Water 50 ml 100 ml IV Total 110 ml 366.6 ml Tube Feeding 300 ml 330 ml Output Urine Total 550 ml # Bowel Movements 1 Laboratory Tests 10/10/18 19:15: Vancomycin Level Trough 10.3 10/11/18 03:45: White Blood Count 4.9, Red Blood Count 3.33L, Hemoglobin 11.3L, Hematocrit 33.2L , Mean Corpuscular Volume 100H, Mean Corpuscular Hemoglobin 33.9H, Mean Corpuscular Hemoglobin Concent 34.1, Red Cell Distribution Width 12.7, Platelet Count 133L, Mean Platelet Volume 9.7, Neutrophils (%) (Auto) 64.6, Lymphocytes ( %) (Auto) 17.3L, Monocytes (%) (Auto) 13.9H, Eosinophils (%) (Auto) 3.3H, Basophils (%) (Auto) 0.9, Sodium Level 140, Potassium Level 3.4L, Chloride Level 106, Carbon Dioxide Level 26, Anion Gap 8, Blood Urea Nitrogen 14, Creatinine 0.9, Estimat Glomerular Filtration Rate , Glucose Level 98, Calcium Level 9.0 Height (Feet): 5 Height (Inches): 3.00 Weight (Pounds): 230 General Appearance: lethargic EENT: normal ENT inspection Neck: normal alignment Cardiovascular: normal peripheral pulses, normal rate, regular rhythm Respiratory/Chest: chest wall non-tender, lungs clear, normal breath sounds Abdomen: normal bowel sounds, non tender, soft Extremities: normal inspection Edema: no edema noted Arm (L), no edema noted Arm (R), no edema noted Leg (L), no edema noted Leg (R), no edema noted Pedal (L), no edema noted Pedal (R), no edema noted Generalized Neurologic: motor weakness Skin: normal pigmentation, warm/dry Juaquin Ramos DO Oct 11, 2018 12:49
--- NOTE | 2018-10-11 14:07 | NUR ---
RD ASSESSMENT & RECOMMENDATIONS SEE CARE ACTIVITY FOR COMPLETE ASSESSMENT DAILY ESTIMATED NEEDS: Needs based on Obese, critical care 66.5kg adj 20-25 kcals/kg 7817-7548 total kcals 1.2-2 g protein/kg 80-133 g total protein 20-25 ml/kcal mL/kg 6374-0338 total fluid mLs NUTRITION DIAGNOSIS: 1) Swallowing difficulty R/T respiratory status as evidenced by pt trach-vent dep, GT dep. 2) Altered nutrition related lab values R/T clinical condition as evidenced by low K (2.8-> 3.4), elev BNP (1086-> 1441), febrile. CURRENT TF:Jevity 1.2 @30ml x22 hrs ENTERAL NUTRITION RECOMMENDATIONS: Glucerna 1.5 @50ml/hr x22 hrs to provide 1100ml, 1650kcal, 91g prot, 835ml free water * As medically able, start Glucerna1.5 @20ml for 6 hrs, advance 10ml q 4-6 hrs as tolerated to goal rate. * Water flush per MD/ HOB over 30 degrees * HOLD 1 hr before and after synthroid meds ADDITIONAL RECOMMENDATIONS: * RE-calibrated bed scale weights for accurate CBW * Monitor lytes, replete as needed (low K) * A1C for eval of glycemic control - h/o DM * Monitor BGs closely, need for carb controlled formula- h/o DM * CONSULT RD IF SEIZURE MEDS CHANGE TO DILANTIN -> TF RATE WILL NEED TO BE ADJUSTED TO MEET EST NEEDS .
[2018-10-11] MEDS: Ertapenem 1 GM in NS 55 ML IVPB SCH (15:29)
[2018-10-11 16:00] VITALS: BP 139/66
--- NOTE | 2018-10-11 19:06 | NUR ---
HAND-OFF: Report given to Clemente Thompson RN.
--- NOTE | 2018-10-11 19:07 | NUR ---
NURSE NOTES: Report received from CESAR Cain. Patient seen in bed in semi-de la cruz position with vent ( portex 8, AC 16, TV 600, fi02 35%, PEEP 5). SPO2 is 99% at this time. no S/Sx of pain is noted via FLACC. Noted with GTF of glucerna 1.5 at 20cc/hr at this time. Noted with purewick and is intact. IV site remains to right hand 22G and is intact. Bed is in lowest position. Call light is within reach. Will continue to monitor.
[2018-10-11 20:00] VITALS: BP 112/60
[2018-10-11] MEDS: Vancomycin 1 GM in D5W 275 ML IVPB SCH (20:15)
[2018-10-12] VITALS: BP 103/58
--- NOTE | 2018-10-12 02:30 | NUR ---
NURSE NOTES: noted with 2nd degree AVB on rhythm strip. Paged and left message with Dr gutierrez. Currently awaiting for call back.
[2018-10-12 04:00] VITALS: BP 120/60
[2018-10-12 05:51] LABS: BASOPHILS % (AUTO) 0.8 % (0.0-2.0); EOSINOPHILS % (AUTO) 3.9 % (0.0-3.0); HEMATOCRIT 33.6 % (37.0-47.0); HEMOGLOBIN 11.2 G/DL (12.0-16.0); LYMPHOCYTES % (AUTO) 17.4 % (20.0-45.0); MEAN CORPUSCULAR VOLUME 100 FL (80-99); MONOCYTES % (AUTO) 12.3 % (1.0-10.0); NEUTROPHILS % (AUTO) 65.6 % (45.0-75.0); PLATELET COUNT 148 K/UL (150-450); RED BLOOD COUNT 3.36 M/UL (4.20-5.40); RED CELL DISTRIBUTION WIDTH 12.7 % (11.6-14.8); WHITE BLOOD COUNT 5.3 K/UL (4.8-10.8)
[2018-10-12 06:30] LABS: ALANINE AMINOTRANSFERASE 34 U/L (12-78); ALBUMIN 2.3 G/DL (3.4-5.0); ALBUMIN/GLOBULIN RATIO 0.5 (1.0-2.7); ALKALINE PHOSPHATASE 197 U/L (46-116); ANION GAP 7 mmol/L (5-15); ASPARTATE AMINO TRANSFERASE 42 U/L (15-37); BILIRUBIN,TOTAL 0.3 MG/DL (0.2-1.0); BLOOD UREA NITROGEN 15 mg/dL (7-18); CALCIUM 9.1 MG/DL (8.5-10.1); CARBON DIOXIDE 28 MMOL/L (21-32); CHLORIDE 107 MMOL/L (98-107); PHOSPHORUS 3.5 MG/DL (2.5-4.9); POTASSIUM 3.5 MMOL/L (3.5-5.1); SODIUM 142 MMOL/L (136-145)
--- NOTE | 2018-10-12 07:37 | NUR ---
HAND-OFF: Report given to CESAR Crawley .
--- NOTE | 2018-10-12 07:38 | NUR ---
NURSE NOTES: RECEIVED PATIENT FROM Clemente DONIS RN. PATIENT IS LYING IN BED, ASLEEP. HOOKED TO LAUNDRY ROOM ATTENDANT. TRACH TO VENT. PORTEX 8, WITH VENT SETTINGS AC 14, TV 600, FIO2 35%, PEEP 5. NO SIGNS OF CARDIO OR RESPI DISTRESS OF THE MOMENT. GT IN PLACE WITH GTF RUNNING GLUCERNA 1.5 AT 40CC/ML. ON PUREWICK. IV ON R HAND G22, TKO. CALL LIGHT WITHIN REACH. BED AT LOWEST POSITION. SIDE RAILS UP. WILL CONTINUE TO MONITOR.
--- NOTE | 2018-10-12 07:42 | NUR ---
RESPIRATORY NOTE: PT. RECEIVED STABLE ON CMV WITH CURRENT SETTINGS:14, 600, 40%, +5. ALARMS ON AND AUDIBLE. VENT PLUGGED INTO RED OUTLET. VENT CIRCUIT SECURE AND OUT OF THE WAY. NO S/S OF RESPIRATORY DISTRESS NOTED AT THIS TIME. WILL CONTINUE TO MONITOR.
[2018-10-12 08:00] VITALS: BP 109/51
[2018-10-12] MEDS: Heparin 5000 units/ml inj SUBQ SCH (09:27)
[2018-10-12] MEDS: Pantoprazole Inj IV SCH (09:27)
[2018-10-12] MEDS: levETIRAcetam 500mg/5ml Liquid GT SCH (09:28)
--- NOTE | 2018-10-12 09:32 | General Progress Note ---
Assessment/Plan Problem List: (1) UTI (urinary tract infection) ICD Codes: N39.0 - Urinary tract infection, site not specified SNOMED: 36861484 (2) Anemia ICD Codes: D64.9 - Anemia, unspecified SNOMED: 967331596 (3) Seizure ICD Codes: R56.9 - Unspecified convulsions SNOMED: 73511671 (4) CHF (congestive heart failure) ICD Codes: I50.9 - Heart failure, unspecified SNOMED: 40749050 (5) Acute and chronic respiratory failure ICD Codes: J96.20 - Acute and chronic respiratory failure, unspecified whether with hypoxia or hypercapnia SNOMED: 55085982, 02201305 (6) HTN (hypertension) ICD Codes: I10 - Essential (primary) hypertension SNOMED: 45374186 Status: stable, progressing Assessment/Plan vent abx dc if clear Subjective Constitutional: Reports: weakness Allergies: Coded Allergies: PEANUT (Verified Allergy, Unknown, 09/22/16) All Systems: reviewed and negative except above Subjective trach vent altered Objective Last 24 Hour Vital Signs Date Time Temp Pulse Resp B/P (MAP) Pulse Ox O2 Delivery O2 Flow Rate FiO2 10/12/18 09:07 64 17 40 10/12/18 07:42 69 16 40 10/12/18 05:43 Mechanical Ventilator 10/12/18 04:47 68 16 40 10/12/18 04:00 35 10/12/18 04:00 98.8 68 17 120/60 (80) 99 10/12/18 04:00 Mechanical Ventilator 10/12/18 03:47 69 10/12/18 02:47 63 14 40 10/12/18 00:52 78 17 40 10/12/18 00:00 Mechanical Ventilator 10/12/18 00:00 99.0 70 15 103/58 (73) 100 10/11/18 23:50 66 10/11/18 22:42 69 18 40 10/11/18 20:50 77 16 40 10/11/18 20:00 35 10/11/18 20:00 99.0 65 14 112/60 (77) 98 10/11/18 20:00 Mechanical Ventilator 10/11/18 19:29 70 10/11/18 19:28 71 14 40 10/11/18 16:45 62 16 40 2/7/19 16:00 98.8 65 14 139/66 (90) 100 10/11/18 16:00 78 10/11/18 16:00 35 10/11/18 16:00 Mechanical Ventilator 10/11/18 15:30 68 16 40 10/11/18 13:02 65 20 40 10/11/18 12:00 35 10/11/18 12:00 98.4 67 16 111/53 (72) 99 10/11/18 12:00 Mechanical Ventilator 10/11/18 11:50 58 10/11/18 11:26 65 18 40 Intake and Output 10/11/18 10/12/18 19:00 07:00 Intake Total 590 ml 906.6 ml Balance 590 ml 906.6 ml Intake Free Water 260 ml 210 ml IV Total 366.6 ml Tube Feeding 330 ml 330 ml # Voids 2 2 # Bowel Movements 1 Laboratory Tests 10/12/18 03:45: White Blood Count 5.3, Red Blood Count 3.36L, Hemoglobin 11.2L, Hematocrit 33.6L , Mean Corpuscular Volume 100H, Mean Corpuscular Hemoglobin 33.5H, Mean Corpuscular Hemoglobin Concent 33.5, Red Cell Distribution Width 12.7, Platelet Count 148L, Mean Platelet Volume 9.6, Neutrophils (%) (Auto) 65.6, Lymphocytes ( %) (Auto) 17.4L, Monocytes (%) (Auto) 12.3H, Eosinophils (%) (Auto) 3.9H, Basophils (%) (Auto) 0.8, Sodium Level 142, Potassium Level 3.5, Chloride Level 107, Carbon Dioxide Level 28, Anion Gap 7, Blood Urea Nitrogen 15, Creatinine 1.0, Estimat Glomerular Filtration Rate , Glucose Level 91, Calcium Level 9.1, Phosphorus Level 3.5, Magnesium Level 2.0, Total Bilirubin 0.3, Aspartate Amino Transf (AST/SGOT) 42H, Alanine Aminotransferase (ALT/SGPT) 34, Alkaline Phosphatase 197H, Total Protein 7.3, Albumin 2.3L, Globulin 5.0, Albumin/ Globulin Ratio 0.5L Height (Feet): 5 Height (Inches): 3.00 Weight (Pounds): 230 General Appearance: lethargic EENT: normal ENT inspection Neck: normal alignment Cardiovascular: normal peripheral pulses, normal rate, regular rhythm Respiratory/Chest: chest wall non-tender, lungs clear, normal breath sounds Abdomen: normal bowel sounds, non tender, soft Extremities: normal inspection Edema: no edema noted Arm (L), no edema noted Arm (R), no edema noted Leg (L), no edema noted Leg (R), no edema noted Pedal (L), no edema noted Pedal (R), no edema noted Generalized Neurologic: motor weakness Skin: normal pigmentation, warm/dry Juaquin Ramos DO Oct 12, 2018 09:32
--- NOTE | 2018-10-12 10:00 | Pulmonolgy Critical Care Note ---
Critical Care - Asmt/Plan Problems: (1) Acute and chronic respiratory failure (2) Aspiration pneumonia (3) Sepsis (4) Chronic respiratory failure (5) Vegetative state (6) Feeding by G-tube (7) Functional paraplegia Respiratory: monitor respiratory rate, adjust FIO2 Cardiac: stop pressors Renal: F/U I&O Infectious Disease: check cultures Gastrointestinal: continue feedings/current rate Endocrine: monitor blood sugar, check HgA1C Hematologic: monitor H/H Neurologic: PRN Morphine 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: cardio Discussed with: nurses, consultants, rn case manager hospiceevent marketing manager - Objective Last 24 Hour Vital Signs Date Time Temp Pulse Resp B/P (MAP) Pulse Ox O2 Delivery O2 Flow Rate FiO2 10/12/18 09:07 64 17 40 10/12/18 07:42 69 16 40 10/12/18 05:43 Mechanical Ventilator 10/12/18 04:47 68 16 40 10/12/18 04:00 35 10/12/18 04:00 98.8 68 17 120/60 (80) 99 10/12/18 04:00 Mechanical Ventilator 10/12/18 03:47 69 10/12/18 02:47 63 14 40 10/12/18 00:52 78 17 40 10/12/18 00:00 Mechanical Ventilator 10/12/18 00:00 99.0 70 15 103/58 (73) 100 10/11/18 23:50 66 10/11/18 22:42 69 18 40 10/11/18 20:50 77 16 40 10/11/18 20:00 35 10/11/18 20:00 99.0 65 14 112/60 (77) 98 10/11/18 20:00 Mechanical Ventilator 10/11/18 19:29 70 10/11/18 19:28 71 14 40 10/11/18 16:45 62 16 40 10/11/18 16:00 98.8 65 14 139/66 (90) 100 10/11/18 16:00 78 10/11/18 16:00 35 10/11/18 16:00 Mechanical Ventilator 10/11/18 15:30 68 16 40 10/11/18 13:02 65 20 40 10/11/18 12:00 35 10/11/18 12:00 98.4 67 16 111/53 (72) 99 10/11/18 12:00 Mechanical Ventilator 10/11/18 11:50 58 10/11/18 11:26 65 18 40 Status: sedated Condition: grave Abdomen: soft, non-tender Extremities: no C/C/E Micro: Microbiology Date/Time Source Procedure Growth Status 10/09/18 10:00 Blood Blood Culture - Preliminary NO GROWTH AFTER 48 HOURS Resulted Critical Care - Subjective ROS Limited/Unobtainable: Yes Condition: critical FI02: 40 Vent Support Breath Rate: 14 Vent Support Mode: AC Vent Tidal Volume: 600 Sputum Amount: Small PEEP: 5.0 PIP: 27 Tube Feeding Amount: 40 I&O: Intake and Output 10/11/18 10/12/18 19:00 07:00 Intake Total 590 ml 906.6 ml Balance 590 ml 906.6 ml Intake Free Water 260 ml 210 ml IV Total 366.6 ml Tube Feeding 330 ml 330 ml # Voids 2 2 # Bowel Movements 1 Labs: Laboratory Tests Test 10/12/18 03:45 White Blood Count 5.3 K/UL (4.8-10.8) Red Blood Count 3.36 M/UL (4.20-5.40) L Hemoglobin 11.2 G/DL (12.0-16.0) L Hematocrit 33.6 % (37.0-47.0) L Mean Corpuscular Volume 100 FL (80-99) H Mean Corpuscular Hemoglobin 33.5 PG (27.0-31.0) H Mean Corpuscular Hemoglobin Concent 33.5 G/DL (32.0-36.0) Red Cell Distribution Width 12.7 % (11.6-14.8) Platelet Count 148 K/UL (150-450) L Mean Platelet Volume 9.6 FL (6.5-10.1) Neutrophils (%) (Auto) 65.6 % (45.0-75.0) Lymphocytes (%) (Auto) 17.4 % (20.0-45.0) L Monocytes (%) (Auto) 12.3 % (1.0-10.0) H Eosinophils (%) (Auto) 3.9 % (0.0-3.0) H Basophils (%) (Auto) 0.8 % (0.0-2.0) Sodium Level 142 MMOL/L (136-145) Potassium Level 3.5 MMOL/L (3.5-5.1) Chloride Level 107 MMOL/L (98-107) Carbon Dioxide Level 28 MMOL/L (21-32) Anion Gap 7 mmol/L (5-15) Blood Urea Nitrogen 15 mg/dL (7-18) Creatinine 1.0 MG/DL (0.55-1.30) Estimat Glomerular Filtration Rate mL/min (>60) Glucose Level 91 MG/DL (74-106) Calcium Level 9.1 MG/DL (8.5-10.1) Phosphorus Level 3.5 MG/DL (2.5-4.9) Magnesium Level 2.0 MG/DL (1.8-2.4) Total Bilirubin 0.3 MG/DL (0.2-1.0) Aspartate Amino Transf (AST/SGOT) 42 U/L (15-37) H Alanine Aminotransferase (ALT/SGPT) 34 U/L (12-78) Alkaline Phosphatase 197 U/L (46-116) H Total Protein 7.3 G/DL (6.4-8.2) Albumin 2.3 G/DL (3.4-5.0) L Globulin 5.0 g/dL Albumin/Globulin Ratio 0.5 (1.0-2.7) L Savi Rodriguez MD Oct 12, 2018 10:00
--- NOTE | 2018-10-12 10:04 | Infectious Diseases Prog Note ---
Assessment/Plan Assessment/Plan 78 who was sent to the ED [facility] her [facility] 10[facility] with fever and Vomiting. She was also reported to have diarrhea. 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 We will continue to follow the patient during this hospitalization. Subjective Allergies: Coded Allergies: PEANUT (Verified Allergy, Unknown, 09/22/16) Subjective Doing well, Awake Afebrile No Leukocytosis Objective Vital Signs Last 24 Hour Vital Signs Date Time Temp Pulse Resp B/P (MAP) Pulse Ox O2 Delivery O2 Flow Rate FiO2 10/12/18 09:07 64 17 40 10/12/18 07:42 69 16 40 10/12/18 05:43 Mechanical Ventilator 10/12/18 04:47 68 16 40 10/12/18 04:00 35 10/12/18 04:00 98.8 68 17 120/60 (80) 99 10/12/18 04:00 Mechanical Ventilator 10/12/18 03:47 69 10/12/18 02:47 63 14 40 10/12/18 00:52 78 17 40 10/12/18 00:00 Mechanical Ventilator 10/12/18 00:00 99.0 70 15 103/58 (73) 100 10/11/18 23:50 66 10/11/18 22:42 69 18 40 10/11/18 20:50 77 16 40 10/11/18 20:00 35 10/11/18 20:00 99.0 65 14 112/60 (77) 98 10/11/18 20:00 Mechanical Ventilator 10/11/18 19:29 70 10/11/18 19:28 71 14 40 10/11/18 16:45 62 16 40 10/11/18 16:00 98.8 65 14 139/66 (90) 100 10/11/18 16:00 78 10/11/18 16:00 35 10/11/18 16:00 Mechanical Ventilator 10/11/18 15:30 68 16 40 10/11/18 13:02 65 20 40 10/11/18 12:00 35 10/11/18 12:00 98.4 67 16 111/53 (72) 99 10/11/18 12:00 Mechanical Ventilator 10/11/18 11:50 58 10/11/18 11:26 65 18 40 Height (Feet): 5 Height (Inches): 3.00 Weight (Pounds): 230 Objective Gen: NAD, On vent HEENT: NCAT, MMM, EOMI LUNGs: CTAB HEART: RRR ABD: Soft, NT, ND, + BS PEG erythema some gastric contents leaking Laboratory Tests Test 10/12/18 03:45 White Blood Count 5.3 K/UL (4.8-10.8) Red Blood Count 3.36 M/UL (4.20-5.40) L Hemoglobin 11.2 G/DL (12.0-16.0) L Hematocrit 33.6 % (37.0-47.0) L Mean Corpuscular Volume 100 FL (80-99) H Mean Corpuscular Hemoglobin 33.5 PG (27.0-31.0) H Mean Corpuscular Hemoglobin Concent 33.5 G/DL (32.0-36.0) Red Cell Distribution Width 12.7 % (11.6-14.8) Platelet Count 148 K/UL (150-450) L Mean Platelet Volume 9.6 FL (6.5-10.1) Neutrophils (%) (Auto) 65.6 % (45.0-75.0) Lymphocytes (%) (Auto) 17.4 % (20.0-45.0) L Monocytes (%) (Auto) 12.3 % (1.0-10.0) H Eosinophils (%) (Auto) 3.9 % (0.0-3.0) H Basophils (%) (Auto) 0.8 % (0.0-2.0) Sodium Level 142 MMOL/L (136-145) Potassium Level 3.5 MMOL/L (3.5-5.1) Chloride Level 107 MMOL/L (98-107) Carbon Dioxide Level 28 MMOL/L (21-32) Anion Gap 7 mmol/L (5-15) Blood Urea Nitrogen 15 mg/dL (7-18) Creatinine 1.0 MG/DL (0.55-1.30) Estimat Glomerular Filtration Rate mL/min (>60) Glucose Level 91 MG/DL (74-106) Calcium Level 9.1 MG/DL (8.5-10.1) Phosphorus Level 3.5 MG/DL (2.5-4.9) Magnesium Level 2.0 MG/DL (1.8-2.4) Total Bilirubin 0.3 MG/DL (0.2-1.0) Aspartate Amino Transf (AST/SGOT) 42 U/L (15-37) H Alanine Aminotransferase (ALT/SGPT) 34 U/L (12-78) Alkaline Phosphatase 197 U/L (46-116) H Total Protein 7.3 G/DL (6.4-8.2) Albumin 2.3 G/DL (3.4-5.0) L Globulin 5.0 g/dL Albumin/Globulin Ratio 0.5 (1.0-2.7) L Current Medications Medications (Trade) Dose Ordered Sig/Boubacar Route PRN Reason Start Time Stop Time Status Last Admin Dose Admin Acetaminophen (Tylenol) 650 mg Q4H PRN ORAL FEVER 10/07/18 17:15 11/06/18 17:14 Albuterol/ Ipratropium (Albuterol/ Ipratropium) 3 ml Q4H PRN HHN Shortness of Breath 10/07/18 17:15 10/12/18 17:14 Dextrose (Dextrose 50%) 25 ml Q30M PRN IV Hypoglycemia 10/07/18 17:15 11/06/18 17:14 Dextrose (Dextrose 50%) 50 ml Q30M PRN IV Hypoglycemia 10/07/18 18:45 11/06/18 18:44 Ertapenem 1 gm/ Sodium Chloride 55 ml @ 110 mls/hr Q24H IVPB 10/10/18 15:00 10/15/18 14:59 10/11/18 15:29 Heparin Sodium (Porcine) (Heparin 5000 units/ml) 5,000 units EVERY 12 HOURS SUBQ 10/07/18 21:00 11/06/18 20:59 10/12/18 09:27 Levetiracetam (Keppra) 1,500 mg Q12HR GT 10/07/18 21:00 11/06/18 20:59 10/12/18 09:28 Levothyroxine Sodium (Synthroid) 75 mcg ACBREAKFAST GT 10/08/18 06:30 11/07/18 06:29 10/12/18 05:48 Lorazepam (Ativan 2mg/ml 1ml) 2 mg Q2H PRN IV For Anxiety 10/07/18 17:15 10/14/18 17:14 Morphine Sulfate (Morphine Sulfate) 4 mg Q4H PRN IVP Severe Pain (Pain Scale 7-10) 10/07/18 17:15 10/14/18 17:14 Ondansetron HCl (Zofran) 4 mg Q6H PRN IVP Nausea & Vomiting 10/07/18 17:15 11/06/18 17:14 Pantoprazole (Protonix) 40 mg DAILY IV 10/08/18 09:00 11/07/18 08:59 10/12/18 09:27 Polyethylene Glycol (Miralax) 17 gm DAILYPRN PRN GT Constipation 10/07/18 17:15 11/06/18 17:14 Vancomycin HCl (Vanco rx to dose) 1 ea DAILY PRN MISC rx protocol 10/07/18 18:45 11/06/18 18:44 Vancomycin HCl 1 gm/Dextrose 275 ml @ 183.3 mls/ hr Q24H IVPB 10/08/18 20:00 10/13/18 19:59 10/11/18 20:15 Eder Varma MD Oct 12, 2018 10:04
--- NOTE | 2018-10-12 10:39 | NUR ---
Social Service Note Referral faxed to [facility] [phone] (p) [phone] (f). Patient accepted shelter care to room 213-A. Nurse to call report prior to transfer and will arrange ambulance transport via [facility]. PETEY left Emilia NCM [phone] message regarding dc for today.
[2018-10-12 12:00] VITALS: BP 112/53
[2018-10-12] MEDS ORDERED: Tubing IV Secondary IV ONE (14:02)
[2018-10-12] MEDS ORDERED: NS 275ml ONE (14:02)
--- NOTE | 2018-10-12 23:43 | Cardiology Report ---
APPROVED REPORT EKG Measurement Heart [id number] Sinus rhythm with 1st degree AV block Right bundle branch block Abnormal ECG
--- NOTE | 2018-10-14 10:50 | Discharge Summary ---
Discharge Summary Discharge Summary _ DATE OF ADMISSION: 10/07/2018 DATE OF DISCHARGE: 10/12/2018 DISCHARGED BY: Dr Ramos REASON FOR ADMISSION: 78 years old female with past medical history of ventilator dependent respiratory failure, tracheostomy status, dysphagia, G-tube, COPD, seizure disorder, hypertension, history of STEMI, diabetes mellitus, encephalopathy, history of CVA, was brought for evaluation from subacute fpc facility due to reported fever, vomiting and diarrhea. Patient was tachycardic, tachypneic, febrile. Urinalysis with evidence of UTI. Laboratory workup revealed mild leukocytosis , stable hemoglobin and hematocrit , platelet count 132. Potassium 3.4 , glucose 117 , Troponin negative , pro BNP 1086. ECG revealed sinus tachycardia, no acute ischemic changes. Albumin 2.7 . Urinalysis with evidence of UTI . Chest x-ray revealed mild interstitial edema. Patient was admitted for further management. CONSULTANTS: pulmonary Dr. Rodriguez ID specialist Dr. Madera [facility] COURSE: Patient admitted to direct observational unit. Ventilator support provided. Pulmonary toilet provided. Patient was followed-up with chest x-ray. Venous Doppler bilateral lower extremity revealed no evidence of acute DVT. Sustainable Products Marketing Manager and infectious disease doctors closely followed. Patient started on empiric antibiotic. Blood culture revealed Staphylococcus epidermidis, urine culture revealed E. coli ESBL. Repeated blood culture were negative. According to infectious disease specialist , bacteremia was likely contaminant patient repeated blood cultures were negative. Antibiotic regimen was optimized as per ID specialist recommendation. Infectious disease specialist recommended to complete antibiotics at the facility to finish the course, monitor CBC and temperature closely. Prior to discharge, leukocytosis resolved, patient afebrile, no further diarrhea since admission. Seizure precaution were maintained. Keppra was continued. No evidence of seizure activity while in the hospital. Blood pressure was closely monitored and remain stable. No need for antihypertensive medication. Volumes were closely monitored. Renal parameters and electrolytes were closely monitored. Potassium was replaced. Nephrotoxins were avoided. G-tube feedings was resumed with strict aspiration/ reflux precaution. Patient was able to tolerate tube feeding. Symptomatic treatment provided. Supportive care provided. Patient was clinically stabilized and ready for transfer back to [facility] for continuation of care. FINAL DIAGNOSES: Sepsis UTI with E. coli ESBL Acute and chronic respiratory failure Dysphagia, feeding by G-tube Functional paraplegia Anoxic encephalopathy Seizure disorder Hypertension CHF DISCHARGE MEDICATIONS: See Medication Reconciliation list. DISCHARGE INSTRUCTIONS: Patient was discharged to subacute fpc facility. Follow up with medical doctor and corporate banking officer at the facility. I have been assigned to dictate discharge summary for this account. I was not involved in the patient's management. Libby Collins NP Oct 14, 2018 10:50
== END 2018-10-12 15:27 | DRG 870 ==
LOC: EDBD 13:57 → EDBEDREQ 14:19 → EMR 14:20 → 2W 16:44 → EDBEDREQ 18:30
PROC: 5A1955Z Respiratory Ventilation, Greater than 96 Consecutive Hours (ICD-10-PCS; principal; 2018-10-07)
DX: A41.9 Sepsis, unspecified organism (principal); J96.20 Acute and chronic respiratory failure, unspecified whether with hypoxia or hypercapnia; R53.2 Functional quadriplegia; J69.0 Pneumonitis due to inhalation of food and vomit; N39.0 Urinary tract infection, site not specified; G93.1 Anoxic brain damage, not elsewhere classified; Z99.11 Dependence on respirator [ventilator] status; B96.20 Unspecified Escherichia coli [E. coli] as the cause of diseases classified elsewhere; R13.10 Dysphagia, unspecified; Z93.1 Gastrostomy status; D72.829 Elevated white blood cell count, unspecified; I25.2 Old myocardial infarction; R00.1 Bradycardia, unspecified; G40.909 Epilepsy, unspecified, not intractable, without status epilepticus; I11.0 Hypertensive heart disease with heart failure; I50.9 Heart failure, unspecified; Z93.0 Tracheostomy status; R00.0 Tachycardia, unspecified; E03.9 Hypothyroidism, unspecified
CPT/HCPCS: 36415; 71045; 80048; 80053; 80069; 80185; 80202; 81003; 82550; 82553; 82962; 83605; 83735; 83880; 84100; 84484; 85007; 85025; 87040; 87070; 87081; 87086; 87181; 87205; 93005; 93970; 94002; 94003; 94664; 96361; 96365; 96367; 96375; 99285; J2405; J7620; J8499

== ENCOUNTER 2019-01-17 13:32 | Inpatient (IN) | payer MEDICARE, MEDICAID ==
[~2019-01-17] VITALS: Ht 162.6 cm; Wt 101.6 kg
[2019-01-17 13:43] VITALS: BP 118/62
--- NOTE | 2019-01-17 13:44 | NUR ---
ED Nurse Note: Pt MEENA from [facility] due to G-tube malnufunction on L quadrant upper abdomen. Redness noted around the G-tube area, hot to touch, does not flush. Pt OAx0 baseline, vent-dependent with setting: A/C TV 600, Fi02 40%, PEEP 5 set rate 18. Vial signs stable at this time. Discoloration note on sacral area but no open wound. Will cont to monitor. Addendum: 01/17/19 at 1431 by [facility] ED Nurse Note: Pt MEENA from [facility] due to G-tube malnufunction on L quadrant upper abdomen. Redness noted around the G-tube area, hot to touch, does not flush. Pt OAx0, non verbal baseline, vent-dependent with setting: A/C TV 600, Fi02 40%, PEEP 5 set rate 18. Vial signs stable at this time. Discoloration note on sacral area but no open wound. Will cont to monitor.
[2019-01-17] MEDS ORDERED: CRANBERRY500 M4 GT (13:48)
[2019-01-17] MEDS ORDERED: Vancomycin 1.5 GM in NS 275 ML IVPB ONE (14:00)
--- NOTE | 2019-01-17 14:02 | NUR ---
ED Nurse Note: Pt has a bowel movement at this time, slimey green soft stool noted, moderate amount. Pt cleaned and changed.
--- NOTE | 2019-01-17 14:07 | Emergency Room Report ---
History of Present Illness General Chief Complaint: Malfunctioning Gastric Tube Source: Medical Record, PMD Present Illness HPI 78yo F nonverbal, with VDRF, trach, PEG sent by Dr. Rodriguez for erythema around G-tube site, concern for infection. History is very limited, but patient nods yes when I ask if it hurts when i touch her abdominal wall over the erythematous site. Allergies: Coded Allergies: PEANUT (Verified Allergy, Unknown, 09/22/16) Patient History Limited by: medical condition Past Medical History: see triage record Reviewed Nursing Documentation: PMH: Agreed; PSxH: Agreed Nursing Documentation-PMH Past Medical History: No History, Except For Hx Cardiac Problems: Yes - STEMI Hx Hypertension: Yes Hx Pacemaker: No Hx Asthma: No Hx COPD: Yes Hx Diabetes: Yes Hx Cancer: Yes Hx Gastrointestinal Problems: Yes - dysphagia, g-tube Hx Neurological Problems: Yes Hx Cerebrovascular Accident: Yes - Encephalpathy Hx Transient Ischemic Attacks: No Hx Dementia: Yes Hx Alzheimer's Disease: No Hx Parkinson's Disease: No Hx Meningitis: No Hx Seizures: Yes Hx Epilepsy: No Hx Multiple Sclerosis: No Hx Cerebral Palsy: No Hx Amyotrophic Lat Sclerosis: No Hx Guillian-[place] Syndrome: No Hx Paralysis: Yes - CVA Hx Peripheral Neuropathy: No Hx Spinal Cord Injury: No Hx Head Trauma: No Hx Traumatic Brain Injury: No Hx Memory Loss: Yes Hx Concentration Difficulty: Yes Hx Speech Problem: Yes Hx Tremors: No Hx Vertigo: No Hx Dizziness: No Hx Syncope: No Hx Headaches: No Hx Aphasia: No Hx Dysphasia: No Hx Weakness: Yes Hx Fatigue: No Hx Neurologic Surgery: No Hx Brain Shunt: No Review of Systems All Other Systems: limited - 2/2 medical condition Physical Exam Vital Signs Date Time Temp Pulse Resp B/P (MAP) Pulse Ox O2 Delivery O2 Flow Rate FiO2 01/17/19 13:33 80 18 100 Mechanical Ventilator 01/17/19 13:43 118/62 Sp02 EP Interpretation: reviewed, normal General Appearance: no apparent distress, alert, non-toxic Head: normocephalic Eyes: bilateral eye normal inspection, bilateral eye PERRL, bilateral eye EOMI ENT: normal ENT inspection, hearing grossly normal, normal pharynx, no angioedema, moist mucus membranes Neck: normal inspection, supple, supple/symm/no masses, tracheotomy - site c/d/ i no erythema/warmth/dc Respiratory: chest non-tender, lungs clear, normal breath sounds, chest symmetrical, palpation of chest normal Cardiovascular #1: normal peripheral pulses, regular rate, rhythm, no gallop, no murmur, no rub, edema - acral edema diffusely Cardiovascular #2: 2+ radial (R), 2+ radial (L) Gastrointestinal: normal inspection, soft, no mass, no guarding, no rebound, tenderness - +abdominal wall erythema ~5cm surrounding LUQ PEG tube site, no purulence, no fluctuance Rectal: deferred Genitourinary: normal inspection, no CVA tenderness Musculoskeletal: non-tender, no calf tenderness Neurologic: alert, responsive, sensory intact Psychiatric: mood/affect normal Skin: normal color, no rash, warm/dry, normal turgor, other - abdominal wall erythema as mentioned Lymphatic: no adenopathy Medical Decision Making Diagnostic Impression: Primary Impression: Abdominal wall cellulitis ER Course Patient with abdominal wall cellulitis around G-tube, will admit for IV abx, g- tube evaluation, sent by Dr. Michael YEPEZ and mckenzie, so will need SDU admission Other X-Ray Diagnostic Results Other X-Ray Diagnostic Results : X-Ray ordered: KUB tube study # of Views/Limited Vs Complete: 1 View Indication: Pain EP Interpretation: Yes Electronically Signed by: Noa Kee Md Last Vital Signs Date Time Temp Pulse Resp B/P (MAP) Pulse Ox O2 Delivery O2 Flow Rate FiO2 01/17/19 13:43 84 18 118/62 98 Mechanical Ventilator Disposition: ADMITTED INPATIENT Condition: Stable NOA KEE M.D January 17, 2019 14:07
--- NOTE | 2019-01-17 14:30 | NUR ---
ED Nurse Note: RN is able to flush G-tube at this time for KUB.
[2019-01-17 14:37] LABS: BASOPHILS % (AUTO) 0.6 % (0.0-2.0); EOSINOPHILS % (AUTO) 2.2 % (0.0-3.0); HEMATOCRIT 41.6 % (37.0-47.0); LYMPHOCYTES % (AUTO) 16.1 % (20.0-45.0); MEAN CORPUSCULAR VOLUME 100 FL (80-99); NEUTROPHILS % (AUTO) 73.1 % (45.0-75.0); PLATELET COUNT 153 K/UL (150-450); RED BLOOD COUNT 4.19 M/UL (4.20-5.40); RED CELL DISTRIBUTION WIDTH 14.2 % (11.6-14.8); WHITE BLOOD COUNT 8.4 K/UL (4.8-10.8)
[2019-01-17 14:44] LABS: ANION GAP 8 mmol/L (5-15); BLOOD UREA NITROGEN 15 mg/dL (7-18); CALCIUM 9.6 MG/DL (8.5-10.1); CARBON DIOXIDE 29 MMOL/L (21-32); CHLORIDE 102 MMOL/L (98-107); CREATININE 0.4 MG/DL (0.55-1.30); POTASSIUM 3.7 MMOL/L (3.5-5.1); SODIUM 139 MMOL/L (136-145)
[2019-01-17] MEDS ORDERED: Miralax 17gm pkt ORAL PRN (14:46)
[2019-01-17] MEDS ORDERED: Promethazine/Codeine 5ml UD ORAL PRN (14:47)
[2019-01-17] MEDS ORDERED: Nitroglycerin Subl 0.4mg tab SL PRN (14:47)
[2019-01-17] MEDS ORDERED: Albuterol/Ipratropium 3ml neb HHN PRN (14:48)
[2019-01-17 14:51] LABS: ALANINE AMINOTRANSFERASE 24 U/L (12-78); ALBUMIN 2.7 G/DL (3.4-5.0); ALBUMIN/GLOBULIN RATIO 0.5 (1.0-2.7); ALKALINE PHOSPHATASE 193 U/L (46-116); ASPARTATE AMINO TRANSFERASE 40 U/L (15-37); BILIRUBIN,TOTAL 0.3 MG/DL (0.2-1.0)
--- NOTE | 2019-01-17 15:07 | Diagnostic Imaging Report ---
Indication: Abdominal pain Comparison: None Single view of the abdomen obtained Findings: Gastrostomy noted. The tip is not well seen but there is contrast in the fundus of the stomach. The position of the gastrostomy is not adequately elucidated on this exam. Patient has a chronically and massively distended sigmoid colon. Previous CT showed no evidence of volvulus. There is nonvisualization of the lower part of the abdomen and pelvis which was not imaged. There is contrast within the left hemicolon and transverse colon. IMPRESSION: The gastrostomy tube is poorly seen and cannot be confirmed. No obvious leak.
[2019-01-17 15:25] VITALS: BP 123/72
--- NOTE | 2019-01-17 16:14 | NUR ---
ED Nurse Note: Report given to Oliver RN at ext [phone]. Pt to be transfered to room 243-3 on [facility] per protocol with portable oxygen, emergency box.
[2019-01-17 16:19] VITALS: BP 148/82
[2019-01-17 17:00] VITALS: BP 108/69
--- NOTE | 2019-01-17 17:30 | NUR ---
NURSE NOTES: Received report from CESAR Brown. Patient arrived to unit in stable condition. trach to vent. No s/sx of SOB, breathing is even and unlabored. Observed no presence of pain or discomfort at this time. Bed is in lowest position, brakes engaged. Call light kept within easy reach. Dr. Rodriguez entered admission orders. Will continue to monitor patient.
[2019-01-17] MEDS: levETIRAcetam 500mg/5ml Liquid GT SCH (17:43)
[2019-01-17] MEDS: Cefepime HCl 2 GM in D5W 55 ML IV SCH (17:43)
--- NOTE | 2019-01-17 19:21 | NUR ---
HAND-OFF: Report given to CESAR Dobbs.
--- NOTE | 2019-01-17 19:22 | NUR ---
NURSE NOTES: Report received from Oliver Valles RN. Patient seen in bed with vent setting of Portex 8, AC 18, TV 600, Fi02 40%, PEEp5 with sp02 99%. No S/Sx of pain is noted via FLACC scale. Patient is non verbal. IV site noted to right hand, 20g, and is intact. noted with purewick and is intact. bed is in lowest position. Call light is within easy reach while in bed. Will continue to monitor.
[2019-01-17 20:00] VITALS: BP 109/61
[2019-01-17] MEDS: Heparin 5000 units/ml inj SUBQ SCH (20:37)
[2019-01-18] VITALS: BP 117/63
[2019-01-18 04:00] VITALS: BP 115/66
[2019-01-18 04:42] LABS: BASOPHILS % (AUTO) 0.8 % (0.0-2.0); EOSINOPHILS % (AUTO) 2.8 % (0.0-3.0); HEMATOCRIT 37.5 % (37.0-47.0); HEMOGLOBIN 13.1 G/DL (12.0-16.0); MEAN CORPUSCULAR VOLUME 100 FL (80-99); MONOCYTES % (AUTO) 8.7 % (1.0-10.0); NEUTROPHILS % (AUTO) 69.7 % (45.0-75.0); PLATELET COUNT 150 K/UL (150-450); RED BLOOD COUNT 3.75 M/UL (4.20-5.40); RED CELL DISTRIBUTION WIDTH 14.1 % (11.6-14.8); WHITE BLOOD COUNT 6.7 K/UL (4.8-10.8)
[2019-01-18 05:07] LABS: ALBUMIN 2.5 G/DL (3.4-5.0); ANION GAP 6 mmol/L (5-15); BLOOD UREA NITROGEN 14 mg/dL (7-18); CALCIUM 9.6 MG/DL (8.5-10.1); CARBON DIOXIDE 30 MMOL/L (21-32); CHLORIDE 103 MMOL/L (98-107); CREATININE 0.6 MG/DL (0.55-1.30); PHOSPHORUS 3.1 MG/DL (2.5-4.9); SODIUM 139 MMOL/L (136-145)
--- NOTE | 2019-01-18 05:52 | NUR ---
NURSE NOTES: Paged Dr Ramos regarding abnormal lab result ( K 3.0 ). Currently awaiting for call back.
--- NOTE | 2019-01-18 07:00 | NUR ---
NURSE NOTES: Received report from CESAR Busch. Patient is resting in bed, in stable condition. No s/sx of SOB, breathing is even and unlabored. Observed no presence of pain or discomfort at this time. Bed is in lowest position, brakes engaged. Call light is kept within easy reach. Will continue to monitor patient.
--- NOTE | 2019-01-18 07:01 | NUR ---
HAND-OFF: Report given to Oliver Valles RN.
--- NOTE | 2019-01-18 07:25 | NUR ---
RESPIRATORY NOTE: received trach pt on current vent settings with no resp distress. pt is trach with portex 8, midline, patent and secured via trach tie/guard. no redness or skin tears visible around stoma or neck area. vent is plugged into the redoutlet with ambu bag and back up trach and bedside. alarms and set and audible. will cont to monitor. Addendum: 01/18/19 at 1558 by ASPEN VALERA RT tx gauze was placed around small skin rash on neck area. no visible tears. wound care nurse aware.
[2019-01-18 08:00] VITALS: BP 131/74
[2019-01-18] MEDS: Heparin 5000 units/ml inj SUBQ SCH ×2 (08:31→20:30)
[2019-01-18] MEDS: levETIRAcetam 500mg/5ml Liquid GT SCH ×2 (08:31→17:51)
--- NOTE | 2019-01-18 09:31 | NUR ---
*-* NO INSURANCE INFORMATION IN THE BAR UNABLE TO SEND CLINICALS OR REVIEWS *-*
--- NOTE | 2019-01-18 10:37 | NUR ---
NURSE NOTES: Dr. Martell and PING Grossman at bedside examined GT site. Per PING Grossman okay to start tube feeding and use GT for medications. Per Dr. Martell, "If G-tube comes out, leave it out." Noted. Orders entered, noted, and carried out. Made charge nurse aware. Will continue to monitor patient.
--- NOTE | 2019-01-18 10:55 | GI Initial Consult Note ---
History of Present Illness General Date patient seen: January 18, 2019 Time patient seen: 10:41 Reason for Hospitalization: Malfunctioning Gastric Tube Referring physician: DOMENICO OSORIO Reason for Consultation: G-tube malfunction Present Illness HPI 78yo F nonverbal, with VDRF, trach, PEG sent by Dr. Rodriguez for erythema around G-tube site, concern for infection. History is very limited, but patient nods yes when I ask if it hurts when i touch her abdominal wall over the erythematous site. GI consulted for malfunction. ROS limited, patient nonverbal is tracheostomy and G-tube dependent. G-tube site assessed; noted darkening of skin with eschar around the G-tube site. No noted drainage or erythema present. Inflated G-tube balloon near the surface of the skin can be seen. An abdominal x-ray was unable to visualize the tip of the G-tube, however contrast was noted in the gastric fundus. In addition, was noted that the patient had sigmoid colon distention. Labs reviewed; potassium 3.0, no anemia, no leukocytosis. Home Meds Reported Medications Cranberry Extract (Cranberry) 500 Mg Tablet, 425 MG GT BID, TAB 01/17/19 Ipratropium [place] 0.5MG/2.5ML (IPRATROPIUM BROMIDE 0.5MG/2.5ML) 0.2 Mg/1 Ml Solution, 0.5 MG HHN Q6H WITH ALBUTEROL 2.5 MG HHN; GIVE Q2H PRN FOR SOB/WHEEZING/RESP DISTRESS WITH ALBUTEROL 2.5 MG HHN 08/25/18 Albuterol Sulfate* (ALBUTEROL SULFATE HHN*) 2.5 Mg/3 Ml Vial.neb, 3 ML INH Q6H WITH ATROVENT 0.5 MG HHN; GIVE Q2H PRN FOR SOB/WHEEZING/RESP DISTRESS WITH ATROVENT 0.5 MG HHN 08/25/18 Heparin Sodium,Porcine/Pf (Heparin 1,000 Unit/10 (100/ml)) 1,000 Unit/10 Ml Syringe, 5000 UNIT SQ Q12HR, EA 08/25/18 Letrozole (LETROZOLE) 2.5 Mg Tablet, 2.5 MG GT DAILY, TAB 08/25/18 Phenytoin Sodium Extended (PHENYTOIN SODIUM EXTENDED) 200 Mg Capsule, 300 MG GT BID, CAP 08/25/18 Levothyroxine Sodium* (LEVOTHYROXINE SODIUM*) 75 Mcg Tablet, 75 MCG GT DAILY, TAB Take in the morning on an empty stomach, at least 30 minutes before food. 08/25/18 Vitamin D (Vitamin D3) 400 Unit Tablet, 400 UNITS GT DAILY, TAB 08/25/18 Famotidine (FAMOTIDINE) 20 Mg Tablet, 20 MG GT BID, TAB 08/25/18 Ascorbic Acid* (ASCORBIC ACID*) 500 Mg Tablet, 500 MG GT DAILY, TAB 08/25/18 Omeprazole (OMEPRAZOLE) 20 Mg Capsule.dr, 20 MG GT DAILY, CAP 07/28/18 Ferrous Sulfate (Ferrous Sulfate) 300 Mg/5 Ml Liquid, 330 MG GT DAILY, ML 07/28/18 Levetiracetam* (LEVETIRACETAM*) 100 Mg/1 Ml Solution, 1500 MG GT BID 11/08/17 Na Phos,M-B/Na Phos,Di-Ba* (FLEET ENEMA*) 133 Ml Enema, 133 ML RECTAL PRN, ML 0 Refills IF DULCOLAX RC IS INEFFECTIVE 11/08/17 Bisacodyl (DULCOLAX) 10 Mg Supp.rect, 10 MG RC PRN, SUPP IF MOM IS INEFFECTIVE 11/08/17 Docusate Sodium* (DOCUSATE SODIUM*) 100 Mg Capsule, 100 MG GT DAILY, CAP 11/08/17 Multivitamin With Minerals (MULTIVITAMINS WITH MINERALS*) 1 Each Tablet, 15 ML GT DAILY, TAB 04/02/17 Magnesium Hydroxide (Milk of Magnesia) 400 Mg/5 Ml Oral.susp, 30 ML GT DAILY PRN for Constipation, ML IF ORDERED STOOL SOFTENERS ARE INEFFECTIVE 12/04/16 Acetaminophen (Acetaminophen) 650 Mg/20.3 Ml Solution, 650 MG GT Q6H PRN for Prn Headache/Temp > 101, ML AND OR MILD PAIN (1-4) 09/21/16 Med list reviewed/reconciled: Yes Allergies: Coded Allergies: PEANUT (Verified Allergy, Unknown, 09/22/16) Patient History Limited by: medical condition History Provided By: Medical Record [facility] Narrative Past Medical History: No History, Except For Hx Cardiac Problems: Yes - STEMI Hx Hypertension: Yes Hx Pacemaker: No Hx Asthma: No Hx COPD: Yes Hx Diabetes: Yes Hx Cancer: Yes Hx Gastrointestinal Problems: Yes - dysphagia, g-tube Hx Neurological Problems: Yes Hx Cerebrovascular Accident: Yes - Encephalopathy Hx Transient Ischemic Attacks: No Hx Dementia: Yes Hx Alzheimer's Disease: No Hx Parkinson's Disease: No Hx Meningitis: No Hx Seizures: Yes Hx Epilepsy: No Hx Multiple Sclerosis: No Hx Cerebral Palsy: No Hx Amyotrophic Lat Sclerosis: No Hx Guillian-[place] Syndrome: No Hx Paralysis: Yes - CVA Hx Peripheral Neuropathy: No Hx Spinal Cord Injury: No Hx Head Trauma: No Hx Traumatic Brain Injury: No Hx Memory Loss: Yes Hx Concentration Difficulty: Yes Hx Speech Problem: Yes Hx Tremors: No Hx Vertigo: No Hx Dizziness: No Hx Syncope: No Hx Headaches: No Hx Aphasia: No Hx Dysphasia: No Hx Weakness: Yes Hx Fatigue: No Hx Neurologic Surgery: No Hx Brain Shunt: No Social History: Denies: smoking, alcohol use, drug use, other Review of Systems All Other Systems: negative except mentioned in HPI Physical Exam Vital Signs Date Time Temp Pulse Resp B/P (MAP) Pulse Ox O2 Delivery O2 Flow Rate FiO2 01/17/19 13:33 80 18 100 Mechanical Ventilator 01/17/19 13:36 40 01/17/19 13:43 118/62 01/17/19 15:25 99.7 Sp02 EP Interpretation: reviewed, normal Labs Laboratory Tests Test 01/17/19 14:05 01/18/19 03:15 White Blood Count 8.4 K/UL (4.8-10.8) 6.7 K/UL (4.8-10.8) Red Blood Count 4.19 M/UL (4.20-5.40) L 3.75 M/UL (4.20-5.40) L Hemoglobin 14.0 G/DL (12.0-16.0) 13.1 G/DL (12.0-16.0) Hematocrit 41.6 % (37.0-47.0) 37.5 % (37.0-47.0) Mean Corpuscular Volume 100 FL (80-99) H 100 FL (80-99) H Mean Corpuscular Hemoglobin 33.4 PG (27.0-31.0) H 34.9 PG (27.0-31.0) H Mean Corpuscular Hemoglobin Concent 33.5 G/DL (32.0-36.0) 34.9 G/DL (32.0-36.0) Red Cell Distribution Width 14.2 % (11.6-14.8) 14.1 % (11.6-14.8) Platelet Count 153 K/UL (150-450) 150 K/UL (150-450) Mean Platelet Volume 9.9 FL (6.5-10.1) 9.8 FL (6.5-10.1) Neutrophils (%) (Auto) 73.1 % (45.0-75.0) 69.7 % (45.0-75.0) Lymphocytes (%) (Auto) 16.1 % (20.0-45.0) L 18.0 % (20.0-45.0) L Monocytes (%) (Auto) 8.0 % (1.0-10.0) 8.7 % (1.0-10.0) Eosinophils (%) (Auto) 2.2 % (0.0-3.0) 2.8 % (0.0-3.0) Basophils (%) (Auto) 0.6 % (0.0-2.0) 0.8 % (0.0-2.0) Sodium Level 139 MMOL/L (136-145) 139 MMOL/L (136-145) Potassium Level 3.7 MMOL/L (3.5-5.1) 3.0 MMOL/L (3.5-5.1) L Chloride Level 102 MMOL/L (98-107) 103 MMOL/L (98-107) Carbon Dioxide Level 29 MMOL/L (21-32) 30 MMOL/L (21-32) Anion Gap 8 mmol/L (5-15) 6 mmol/L (5-15) Blood Urea Nitrogen 15 mg/dL (7-18) 14 mg/dL (7-18) Creatinine 0.4 MG/DL (0.55-1.30) L 0.6 MG/DL (0.55-1.30) Estimat Glomerular Filtration Rate mL/min (>60) mL/min (>60) Glucose Level 105 MG/DL (74-106) 100 MG/DL (74-106) Calcium Level 9.6 MG/DL (8.5-10.1) 9.6 MG/DL (8.5-10.1) Total Bilirubin 0.3 MG/DL (0.2-1.0) Aspartate Amino Transf (AST/SGOT) 40 U/L (15-37) H Alanine Aminotransferase (ALT/SGPT) 24 U/L (12-78) Alkaline Phosphatase 193 U/L (46-116) H Total Protein 8.6 G/DL (6.4-8.2) H Albumin 2.7 G/DL (3.4-5.0) L 2.5 G/DL (3.4-5.0) L Globulin 5.9 g/dL Albumin/Globulin Ratio 0.5 (1.0-2.7) L Lipase 71 U/L (73-393) L Phosphorus Level 3.1 MG/DL (2.5-4.9) General Appearance: well appearing, no apparent distress, alert Head: normocephalic EENT: PERRL/EOMI, normal ENT inspection Neck: supple, tracheotomy Respiratory: normal breath sounds, no respiratory distress Cardiovascular: normal rate Gastrointestinal: normal inspection, non tender, soft, normal bowel sounds, non -distended, gt - See HPI Rectal: deferred Genitourinary: no CVA tenderness Musculoskeletal: normal inspection, back normal Neurologic: alert, responsive Skin: normal inspection, normal color, no rash, warm/dry, palpation normal, well hydrated Lymphatic: normal inspection, no adenopathy Current Medications Current Medications Medications (Trade) Dose Ordered Sig/Boubacar Route PRN Reason Start Time Stop Time Status Last Admin Dose Admin Acetaminophen (Tylenol) 650 mg Q4H PRN ORAL fever 01/17/19 14:46 02/16/19 14:45 Albuterol/ Ipratropium (Albuterol/ Ipratropium) 3 ml Q4H PRN HHN Shortness of Breath 01/17/19 14:48 01/22/19 14:47 Cefepime HCl 2 gm/ Dextrose 55 ml @ 110 mls/hr Q24H IV 01/17/19 18:00 01/24/19 17:59 01/17/19 17:43 Heparin Sodium (Porcine) (Heparin 5000 units/ml) 5,000 units EVERY 12 HOURS SUBQ 01/17/19 21:00 02/16/19 20:59 01/18/19 08:31 Letrozole (Femara) 2.5 mg DAILY ORAL 01/18/19 09:00 01/23/19 08:59 01/18/19 08:30 Levetiracetam (Keppra) 1,500 mg BID GT 01/17/19 18:00 02/16/19 17:59 01/18/19 08:31 Levothyroxine Sodium (Synthroid) 75 mcg DAILY@0630 GT 01/18/19 06:30 02/17/19 06:29 01/18/19 06:53 Nitroglycerin (Ntg) 0.4 mg Q5M PRN SL Prn Chest Pain 01/17/19 14:47 02/16/19 14:46 Ondansetron HCl (Zofran) 4 mg Q6H PRN IVP Nausea & Vomiting 01/17/19 14:48 02/16/19 14:47 Polyethylene Glycol (Miralax) 17 gm DAILYPRN PRN ORAL Constipation 01/17/19 14:46 02/16/19 14:45 Promethazine HCl/ Codeine (Phenergan with Codeine) 5 ml Q4H PRN ORAL For Cough 01/17/19 14:47 02/16/19 14:46 Temazepam (Restoril) 15 mg HSPRN PRN ORAL Insomnia 01/17/19 21:00 01/24/19 20:59 Vancomycin HCl (Vanco rx to dose) 1 ea DAILY PRN MISC Per rx protocol 01/17/19 14:45 02/16/19 14:44 Vancomycin HCl/ Dextrose 275 ml @ 137.5 mls/ hr Q24H IVPB 01/18/19 14:00 01/23/19 13:59 GI: Plan Problems: (1) Colon distention (2) G-tube site cellulitis (3) Malfunction of gastrostomy tube (4) Electrolyte imbalance (5) Dysphasia (6) Anemia Plan KUB reviewed >> - chronically and massively distended sigmoid colon. - gastrostomy tube is poorly seen and cannot be confirmed. No obvious leak. The patient was seen with Surgery service at bedside. Possible PEG Monday, will observe the G-tube/site over the weekend and follow with additional recommendations Wound debridement today, fu wound care recs ok to start GTFs ppi rectal tube for colonic decompression serial imaging electrolyte correction follow labs Discussed with Dr. Cardenas. Thank you for this patient referral, we will follow. The patient was seen and examined at bedside and all new and available data was reviewed in the patients chart. I agree with the above findings, impression and plan. (Patient seen earlier today. Signature stamp does not reflect patient encounter time.). - MD Denisse ChampagneSage Memorial HospitalSwapnil FENG January 18, 2019 10:55
--- NOTE | 2019-01-18 11:16 | Consultation ---
History of Present Illness General Date patient seen: January 18, 2019 Chief Complaint: Malfunctioning Gastric Tube Referring physician: DOMENICO OSORIO Present Illness HPI This is a 78 year old female with multiple medical comorbidities who is a alf resident that presented with cellulitis around g tube and large wound around insertion site. On admission KUB noted poor visualization of g tube and contrast in colon with distention. Surgery called to evaluate and assist with care. Patient seen, chart reviewed, patient examined. Patient able to nod head to simple commands. labs noted. On prior records patient has had noted colonic distention without volvulus or obstruction. Allergies: Coded Allergies: PEANUT (Verified Allergy, Unknown, 09/22/16) Medication History Scheduled Albuterol Sulfate* (Albuterol Sulfate Hhn*), 3 ML INH Q6H, (Reported) Ascorbic Acid* (Ascorbic Acid*), 500 MG GT DAILY, (Reported) Bisacodyl (Dulcolax), 10 MG RC PRN, (Reported) Cranberry Extract (Cranberry), 425 MG GT BID, (Reported) Docusate Sodium* (Docusate Sodium*), 100 MG GT DAILY, (Reported) Famotidine (Famotidine), 20 MG GT BID, (Reported) Ferrous Sulfate (Ferrous Sulfate), 330 MG GT DAILY, (Reported) Heparin Sodium,Porcine/Pf (Heparin 1,000 Unit/10 (100/ml)), 5,000 UNIT SQ Q12HR, (Reported) Ipratropium [place] 0.5MG/2.5ML (Ipratropium [place] 0.5MG/2.5ML), 0.5 MG HHN Q6H, (Reported) Letrozole (Letrozole), 2.5 MG GT DAILY, (Reported) Levetiracetam* (Levetiracetam*), 1,500 MG GT BID, (Reported) Levothyroxine Sodium* (Levothyroxine Sodium*), 75 MCG GT DAILY, (Reported) Multivitamin With Minerals (Multivitamins With Minerals*), 15 ML GT DAILY, ( Reported) Na Phos,M-B/Na Phos,Di-Ba* (Fleet Enema*), 133 ML RECTAL PRN, (Reported) Omeprazole (Omeprazole), 20 MG GT DAILY, (Reported) Phenytoin Sodium Extended (Phenytoin Sodium Extended), 300 MG GT BID, (Reported) Vitamin D (Vitamin D3), 400 UNITS GT DAILY, (Reported) Scheduled PRN Acetaminophen (Acetaminophen), 650 MG GT Q6H PRN for Prn Headache/Temp > 101, ( Reported) Magnesium Hydroxide (Milk of Magnesia), 30 ML GT DAILY PRN for Constipation, ( Reported) Patient History Limited by: medical condition History Provided By: Medical Record, PMD Healthcare decision maker N Resuscitation status Full Code Advanced Directive on File Past Medical/Surgical History Past Medical/Surgical History: (1) Sepsis (2) Seizure (3) UTI (urinary tract infection) (4) Abdominal wall cellulitis (5) Skin infection at gastrostomy tube site (6) Dysphasia (7) Anemia (8) Electrolyte imbalance (9) Colon distention (10) Malfunction of gastrostomy tube (11) G-tube site cellulitis (12) Hypophosphatemia (13) Aspiration pneumonia (14) Bacteremia due to Gram-negative bacteria (15) Cholecystostomy care (16) Septic shock (17) Chronic respiratory failure (18) CHF (congestive heart failure) (19) Vegetative state (20) Acute and chronic respiratory failure (21) Anoxic brain damage syndrome (22) Feeding by G-tube (23) Hypothyroidism (24) Seizure disorder (25) HTN (hypertension) (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 (27) Functional paraplegia (28) Paroxysmal supraventricular tachycardia (29) AV block, 2nd degree (30) Bowel obstruction Review of Systems ROS Narrative cannot obtain given patients condition and medical status Physical Exam General Appearance: no apparent distress Lines, tubes and drains: peripheral HEENT: mucous membranes moist Neck: normal inspection Respiratory/Chest: no respiratory distress, no accessory muscle use, decreased breath sounds Cardiovascular/Chest: normal rate Abdomen: soft, no organomegaly, no mass, distended, feeding tube - dislodged with balloon in abdominal wall tissue Extremities: other Skin Exam: other Neurologic: alert Last 24 Hour Vital Signs Date Time Temp Pulse Resp B/P (MAP) Pulse Ox O2 Delivery O2 Flow Rate FiO2 01/18/19 10:37 80 18 40 01/18/19 08:37 81 19 40 01/18/19 08:00 97.9 83 17 131/74 (93) 97 01/18/19 08:00 Mechanical Ventilator 01/18/19 08:00 79 01/18/19 07:21 83 18 40 01/18/19 05:21 83 18 40 01/18/19 04:00 Mechanical Ventilator 01/18/19 04:00 97.7 76 17 115/66 (82) 99 01/18/19 03:52 78 01/18/19 03:30 79 19 40 01/18/19 01:14 69 18 40 01/18/19 00:00 Mechanical Ventilator 01/18/19 00:00 97.3 69 19 117/63 (81) 97 01/17/19 23:35 71 01/17/19 22:58 96 25 40 01/17/19 21:34 75 18 40 01/17/19 20:00 Mechanical Ventilator 01/17/19 20:00 40 01/17/19 20:00 98.4 67 19 109/61 (77) 99 01/17/19 19:54 71 18 40 01/17/19 19:28 Mechanical Ventilator 01/17/19 19:15 76 01/17/19 17:00 98.2 81 18 108/69 (82) 98 01/17/19 17:00 77 18 40 01/17/19 16:19 99.7 88 19 148/82 99 Mechanical Ventilator 40 01/17/19 16:19 99.7 88 19 148/82 99 Mechanical Ventilator 40 01/17/19 15:25 99.7 82 18 123/72 99 Mechanical Ventilator 01/17/19 15:15 79 18 40 01/17/19 13:57 40 01/17/19 13:43 84 18 118/62 98 Mechanical Ventilator 01/17/19 13:36 80 18 40 01/17/19 13:36 80 18 Mechanical Ventilator 40 01/17/19 13:33 80 18 100 Mechanical Ventilator Intake and Output 01/17/19 01/18/19 18:59 06:59 Intake Total 192.5 ml Output Total 300 ml Balance 192.5 ml -300 ml Intake IV Total 192.5 ml Output Urine Total 300 ml # Voids 1 # Bowel Movements 2 4 Laboratory Tests Test 01/17/19 14:05 01/18/19 03:15 White Blood Count 8.4 K/UL (4.8-10.8) 6.7 K/UL (4.8-10.8) Red Blood Count 4.19 M/UL (4.20-5.40) L 3.75 M/UL (4.20-5.40) L Hemoglobin 14.0 G/DL (12.0-16.0) 13.1 G/DL (12.0-16.0) Hematocrit 41.6 % (37.0-47.0) 37.5 % (37.0-47.0) Mean Corpuscular Volume 100 FL (80-99) H 100 FL (80-99) H Mean Corpuscular Hemoglobin 33.4 PG (27.0-31.0) H 34.9 PG (27.0-31.0) H Mean Corpuscular Hemoglobin Concent 33.5 G/DL (32.0-36.0) 34.9 G/DL (32.0-36.0) Red Cell Distribution Width 14.2 % (11.6-14.8) 14.1 % (11.6-14.8) Platelet Count 153 K/UL (150-450) 150 K/UL (150-450) Mean Platelet Volume 9.9 FL (6.5-10.1) 9.8 FL (6.5-10.1) Neutrophils (%) (Auto) 73.1 % (45.0-75.0) 69.7 % (45.0-75.0) Lymphocytes (%) (Auto) 16.1 % (20.0-45.0) L 18.0 % (20.0-45.0) L Monocytes (%) (Auto) 8.0 % (1.0-10.0) 8.7 % (1.0-10.0) Eosinophils (%) (Auto) 2.2 % (0.0-3.0) 2.8 % (0.0-3.0) Basophils (%) (Auto) 0.6 % (0.0-2.0) 0.8 % (0.0-2.0) Sodium Level 139 MMOL/L (136-145) 139 MMOL/L (136-145) Potassium Level 3.7 MMOL/L (3.5-5.1) 3.0 MMOL/L (3.5-5.1) L Chloride Level 102 MMOL/L (98-107) 103 MMOL/L (98-107) Carbon Dioxide Level 29 MMOL/L (21-32) 30 MMOL/L (21-32) Anion Gap 8 mmol/L (5-15) 6 mmol/L (5-15) Blood Urea Nitrogen 15 mg/dL (7-18) 14 mg/dL (7-18) Creatinine 0.4 MG/DL (0.55-1.30) L 0.6 MG/DL (0.55-1.30) Estimat Glomerular Filtration Rate mL/min (>60) mL/min (>60) Glucose Level 105 MG/DL (74-106) 100 MG/DL (74-106) Calcium Level 9.6 MG/DL (8.5-10.1) 9.6 MG/DL (8.5-10.1) Total Bilirubin 0.3 MG/DL (0.2-1.0) Aspartate Amino Transf (AST/SGOT) 40 U/L (15-37) H Alanine Aminotransferase (ALT/SGPT) 24 U/L (12-78) Alkaline Phosphatase 193 U/L (46-116) H Total Protein 8.6 G/DL (6.4-8.2) H Albumin 2.7 G/DL (3.4-5.0) L 2.5 G/DL (3.4-5.0) L Globulin 5.9 g/dL Albumin/Globulin Ratio 0.5 (1.0-2.7) L Lipase 71 U/L (73-393) L Hemoglobin A1c Pending Phosphorus Level 3.1 MG/DL (2.5-4.9) Height (Feet): 5 Height (Inches): 4.00 Weight (Pounds): 224 Medications Current Medications Medications (Trade) Dose Ordered Sig/Boubacar Route PRN Reason Start Time Stop Time Status Last Admin Dose Admin Acetaminophen (Tylenol) 650 mg Q4H PRN ORAL fever 01/17/19 14:46 02/16/19 14:45 Albuterol/ Ipratropium (Albuterol/ Ipratropium) 3 ml Q4H PRN HHN Shortness of Breath 01/17/19 14:48 01/22/19 14:47 Cefepime HCl 2 gm/ Dextrose 55 ml @ 110 mls/hr Q24H IV 01/17/19 18:00 01/24/19 17:59 01/17/19 17:43 Dextrose (Dextrose 50%) 25 ml Q30M PRN IV Hypoglycemia 01/18/19 11:00 02/17/19 10:59 Dextrose (Dextrose 50%) 50 ml Q30M PRN IV Hypoglycemia 01/18/19 11:00 02/17/19 10:59 Heparin Sodium (Porcine) (Heparin 5000 units/ml) 5,000 units EVERY 12 HOURS SUBQ 01/17/19 21:00 02/16/19 20:59 01/18/19 08:31 Insulin Aspart (NovoLOG) Q6HR SUBQ 01/18/19 12:00 02/17/19 11:59 Letrozole (Femara) 2.5 mg DAILY ORAL 01/18/19 09:00 01/23/19 08:59 01/18/19 08:30 Levetiracetam (Keppra) 1,500 mg BID GT 01/17/19 18:00 02/16/19 17:59 01/18/19 08:31 Levothyroxine Sodium (Synthroid) 75 mcg DAILY@0630 GT 01/18/19 06:30 02/17/19 06:29 01/18/19 06:53 Nitroglycerin (Ntg) 0.4 mg Q5M PRN SL Prn Chest Pain 01/17/19 14:47 02/16/19 14:46 Ondansetron HCl (Zofran) 4 mg Q6H PRN IVP Nausea & Vomiting 01/17/19 14:48 02/16/19 14:47 Polyethylene Glycol (Miralax) 17 gm DAILYPRN PRN ORAL Constipation 01/17/19 14:46 02/16/19 14:45 Promethazine HCl/ Codeine (Phenergan with Codeine) 5 ml Q4H PRN ORAL For Cough 01/17/19 14:47 02/16/19 14:46 Temazepam (Restoril) 15 mg HSPRN PRN ORAL Insomnia 01/17/19 21:00 01/24/19 20:59 Vancomycin HCl (Vanco rx to dose) 1 ea DAILY PRN MISC Per rx protocol 01/17/19 14:45 02/16/19 14:44 Vancomycin HCl/ Dextrose 275 ml @ 137.5 mls/ hr Q24H IVPB 01/18/19 14:00 01/23/19 13:59 Assessment/Plan Problem List: (1) Abdominal wall cellulitis Assessment & Plan: Patient has developed abdominal wall cellulitis around G tube site g tube evaluated and dislodged with balloon in abdominal wall soft tissue g tube removed at bedside. balloon deflated. tube has good track but wide given dislodged with balloon inflated keep balloon deflated and tube in place. tube taped in place okay to use tube for now appreciate GI input ICD Codes: L03.311 - Cellulitis of abdominal wall SNOMED: 12850450 (2) G-tube site cellulitis Assessment & Plan: as above ICD Codes: K94.22 - Gastrostomy infection; L03.319 - Cellulitis of trunk, unspecified SNOMED: 448312992, 178929241 (3) Colon distention Assessment & Plan: KUB: Gastrostomy noted. The tip is not well seen but there is contrast in the fundus of the stomach. The position of the gastrostomy is not adequately elucidated on this exam. Patient has a chronically and massively distended sigmoid colon. Previous CT showed no evidence of volvulus. There is nonvisualization of the lower part of the abdomen and pelvis which was not imaged. There is contrast within the left hemicolon and transverse colon. unsure what contrast in colon is from and how long it has been there recommend follow up CT ordered will follow with recs ICD Codes: K63.89 - Other specified diseases of intestine SNOMED: 258582855 (4) Malfunction of gastrostomy tube ICD Codes: K94.23 - Gastrostomy malfunction SNOMED: 423443595 Heath Martell January 18, 2019 11:16
--- NOTE | 2019-01-18 11:30 | Pulmonolgy Critical Care Note ---
Critical Care - Asmt/Plan Problems: (1) Abdominal wall cellulitis (2) Chronic respiratory failure (3) Malfunction of gastrostomy tube (4) Colon distention (5) HTN (hypertension) (6) Seizure disorder (7) Hypothyroidism (8) Status post tracheostomy (9) Anoxic brain damage syndrome (10) Vegetative state Respiratory: monitor respiratory rate, adjust FIO2, CXR Cardiac: continue pressors, continue to monitor HR/BP Renal: F/U I&O, keep IV fluid Infectious Disease: check cultures Gastrointestinal: continue feedings/current rate Endocrine: monitor blood sugar Hematologic: transfuse if hgb<8.5 Neurologic: PRN Ativan, PRN Morphine, keep patient comfortable Prophylaxis: Protonix Disposition: keep in ICU Time Spent (Minutes): 40 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, 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, consultants, 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 - Objective Last 24 Hour Vital Signs Date Time Temp Pulse Resp B/P (MAP) Pulse Ox O2 Delivery O2 Flow Rate FiO2 01/18/19 10:37 80 18 40 01/18/19 08:37 81 19 40 01/18/19 08:00 97.9 83 17 131/74 (93) 97 01/18/19 08:00 Mechanical Ventilator 01/18/19 08:00 79 01/18/19 07:21 83 18 40 01/18/19 05:21 83 18 40 01/18/19 04:00 Mechanical Ventilator 01/18/19 04:00 97.7 76 17 115/66 (82) 99 01/18/19 03:52 78 01/18/19 03:30 79 19 40 01/18/19 01:14 69 18 40 01/18/19 00:00 Mechanical Ventilator 01/18/19 00:00 97.3 69 19 117/63 (81) 97 01/17/19 23:35 71 01/17/19 22:58 96 25 40 01/17/19 21:34 75 18 40 01/17/19 20:00 Mechanical Ventilator 01/17/19 20:00 40 01/17/19 20:00 98.4 67 19 109/61 (77) 99 01/17/19 19:54 71 18 40 01/17/19 19:28 Mechanical Ventilator 01/17/19 19:15 76 01/17/19 17:00 98.2 81 18 108/69 (82) 98 01/17/19 17:00 77 18 40 01/17/19 16:19 99.7 88 19 148/82 99 Mechanical Ventilator 40 01/17/19 16:19 99.7 88 19 148/82 99 Mechanical Ventilator 40 01/17/19 15:25 99.7 82 18 123/72 99 Mechanical Ventilator 01/17/19 15:15 79 18 40 01/17/19 13:57 40 01/17/19 13:43 84 18 118/62 98 Mechanical Ventilator 01/17/19 13:36 80 18 40 01/17/19 13:36 80 18 Mechanical Ventilator 40 01/17/19 13:33 80 18 100 Mechanical Ventilator Status: awake Condition: critical HEENT: atraumatic Lungs: chest wall tender Heart: HR/BP unstable Abdomen: active bowel sounds Extremities: edema Decubiti: location Critical Care - Subjective ROS Limited/Unobtainable: Yes Interval Events: pt is admitted for gtube dysfunction and abdominal distention EKG Rhythm: Sinus Rhythm FI02: 40 Vent Support Breath Rate: 18 Vent Support Mode: AC Vent Tidal Volume: 600 Sputum Amount: Small PEEP: 5.0 PIP: 34 I&O: Intake and Output 01/17/19 01/18/19 18:59 06:59 Intake Total 192.5 ml Output Total 300 ml Balance 192.5 ml -300 ml Intake IV Total 192.5 ml Output Urine Total 300 ml # Voids 1 # Bowel Movements 2 4 Labs: Laboratory Tests Test 01/17/19 14:05 01/18/19 03:15 White Blood Count 8.4 K/UL (4.8-10.8) 6.7 K/UL (4.8-10.8) Red Blood Count 4.19 M/UL (4.20-5.40) L 3.75 M/UL (4.20-5.40) L Hemoglobin 14.0 G/DL (12.0-16.0) 13.1 G/DL (12.0-16.0) Hematocrit 41.6 % (37.0-47.0) 37.5 % (37.0-47.0) Mean Corpuscular Volume 100 FL (80-99) H 100 FL (80-99) H Mean Corpuscular Hemoglobin 33.4 PG (27.0-31.0) H 34.9 PG (27.0-31.0) H Mean Corpuscular Hemoglobin Concent 33.5 G/DL (32.0-36.0) 34.9 G/DL (32.0-36.0) Red Cell Distribution Width 14.2 % (11.6-14.8) 14.1 % (11.6-14.8) Platelet Count 153 K/UL (150-450) 150 K/UL (150-450) Mean Platelet Volume 9.9 FL (6.5-10.1) 9.8 FL (6.5-10.1) Neutrophils (%) (Auto) 73.1 % (45.0-75.0) 69.7 % (45.0-75.0) Lymphocytes (%) (Auto) 16.1 % (20.0-45.0) L 18.0 % (20.0-45.0) L Monocytes (%) (Auto) 8.0 % (1.0-10.0) 8.7 % (1.0-10.0) Eosinophils (%) (Auto) 2.2 % (0.0-3.0) 2.8 % (0.0-3.0) Basophils (%) (Auto) 0.6 % (0.0-2.0) 0.8 % (0.0-2.0) Sodium Level 139 MMOL/L (136-145) 139 MMOL/L (136-145) Potassium Level 3.7 MMOL/L (3.5-5.1) 3.0 MMOL/L (3.5-5.1) L Chloride Level 102 MMOL/L (98-107) 103 MMOL/L (98-107) Carbon Dioxide Level 29 MMOL/L (21-32) 30 MMOL/L (21-32) Anion Gap 8 mmol/L (5-15) 6 mmol/L (5-15) Blood Urea Nitrogen 15 mg/dL (7-18) 14 mg/dL (7-18) Creatinine 0.4 MG/DL (0.55-1.30) L 0.6 MG/DL (0.55-1.30) Estimat Glomerular Filtration Rate mL/min (>60) mL/min (>60) Glucose Level 105 MG/DL (74-106) 100 MG/DL (74-106) Calcium Level 9.6 MG/DL (8.5-10.1) 9.6 MG/DL (8.5-10.1) Total Bilirubin 0.3 MG/DL (0.2-1.0) Aspartate Amino Transf (AST/SGOT) 40 U/L (15-37) H Alanine Aminotransferase (ALT/SGPT) 24 U/L (12-78) Alkaline Phosphatase 193 U/L (46-116) H Total Protein 8.6 G/DL (6.4-8.2) H Albumin 2.7 G/DL (3.4-5.0) L 2.5 G/DL (3.4-5.0) L Globulin 5.9 g/dL Albumin/Globulin Ratio 0.5 (1.0-2.7) L Lipase 71 U/L (73-393) L Hemoglobin A1c 5.0 % (4.3-6.0) Phosphorus Level 3.1 MG/DL (2.5-4.9) Savi Rodriguez MD January 18, 2019 11:30
[2019-01-18] MEDS: NovoLOG Insulin Flexpen SUBQ SCH ×2 (11:40→17:04)
[2019-01-18 12:00] VITALS: BP 102/54
--- NOTE | 2019-01-18 13:08 | NUR ---
RD ASSESSMENT & RECOMMENDATIONS SEE CARE ACTIVITY FOR COMPLETE ASSESSMENT DAILY ESTIMATED NEEDS: Needs based on Obese, wound, critical care 66.4kg adj 20-25 kcals/kg 4973-9041 total kcals 1.25-2 g protein/kg 83-133 g total protein 20-25 ml/kcal mL/kg 9730-6711 total fluid mLs NUTRITION DIAGNOSIS: 1) Increased protein needs r/t wound healing as evidenced by pt w/ sacral/ buttock partial thickness wound. 2) Swallowing difficulty R/T respiratory status as evidenced by pt trach-vent dep, GT dep. CURRENT TF:Glucerna 1.2 @70ml x22 hrs ENTERAL NUTRITION RECOMMENDATIONS: Jevity 1.2 @62ml/hr x22 hrs + Prosource x1 daily to provide 1364ml, 1637kcal, 76g +11g prot, 1101ml free water * As medically able, start Glucerna1.5 @20ml for 6 hrs, advance 10ml q 4-6 hrs as tolerated to goal rate. * Water flush per MD/ HOB over 30 degrees * HOLD 1 hr before and after synthroid meds ------ ADDITIONAL RECOMMENDATIONS: * RE-calibrated bed scale weights for accurate CBW * Monitor lytes, replete as needed (low K) * A1C for eval of glycemic control - 5.0, Hgb wnl * Monitor BGs closely, need for carb controlled formula * CONSULT RD IF SEIZURE MEDS CHANGE TO DILANTIN -> TF RATE WILL NEED TO BE ADJUSTED TO MEET EST NEEDS * WOUND CARE: add PHOEBE BID + Vit C 250mg daily
--- NOTE | 2019-01-18 13:14 | NUR ---
*-* INSURANCE *-* CLINICALS HAVE BEEN FAXED TO: YESSI:MAXIMO P:[phone] F:[phone]
--- NOTE | 2019-01-18 13:32 | Diagnostic Imaging Report ---
Indication: Abdominal pain Technique: Continuous helical transaxial imaging of the abdomen and pelvis was obtained from the lung bases to the pubic symphysis. No intravenous contrast was administered. Coronal 2-D reformats were also obtained. Automatic Exposure Control was utilized. Total Dose length Product (DLP): 979.[address] Dose Index Volume (CTDIvol): 19.51 mGy Comparison: none Findings: There is mild posterior basal atelectasis. Cardiomegaly is present. Small cystic focus noted in the right medial lung base measuring 1 cm. There is artifact limiting evaluation. Gastrostomy tube is present. The tip extends to the area of the pylorus. Bowel gas pattern is nonobstructive. There is liquefied stool in the colon which is distended. Correlate for diarrhea. There is no evidence of appendicitis. Aortoiliac calcifications are moderate. There is a hypodense mass in the left kidney measuring 3.5 cm. This is probably cysts. There is no ascites. There is a small umbilical hernia containing fat. Tiny liver calcification noted. IMPRESSION: Moderate retention of feces within the colon with a liquefied stool, sign of diarrhea. Correlate clinically Gastrostomy tube with the tip projected over the region of the pylorus. Small umbilical hernia containing fat Atherosclerotic disease Hypodensity in the left kidney may be cystic but not adequately evaluated Calcification in the cystic liver nonspecific. Basilar atelectasis The CT scanner at [facility] is accredited by the [employer] and the scans are performed using dose optimization techniques as appropriate to a performed exam including Automatic Exposure control.
--- NOTE | 2019-01-18 13:50 | NUR ---
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 ABDOMINAL WALL CELLULITIS VS: BP 148/82, P 84, T 99.7, RR 18, SpO2 98 on VENT AC 18, TV 600, PEEP 5.0, FiO2 40 RBC 4.19, K 3.0, CR 0.4 IS:VANCOMYCIN 275ml IVPB CEFEPIME HCI 55ml IV SYNTHROID 75mcg ADMITTED TO SDU DCP: RETURN TO [facility]
[2019-01-18] MEDS ORDERED: Vancomycin 1.5gm Premix IVPB SCH (14:00)
--- NOTE | 2019-01-18 15:06 | Consultation ---
History of Present Illness General Date patient seen: January 18, 2019 Chief Complaint: Malfunctioning Gastric Tube Referring physician: DOMENICO OSORIO Present Illness HPI 78 y/o F with hx of Chronic resp failure trach/vent dependant, Dementia, non- verbal, COPD, CAD/STEMI, HTN, CVA, dysphagia s/p PEG, CHF, seizure disorder, [facility] resident presented to ED on 01/17 with large wound and surrounding erythema around GT and malfunction of GT Of note, patient admitted here on October 2018 with fever and vomiting. Was found to have UTI Allergies: Coded Allergies: PEANUT (Verified Allergy, Unknown, 09/22/16) Medication History Scheduled Albuterol Sulfate* (Albuterol Sulfate Hhn*), 3 ML INH Q6H, (Reported) Ascorbic Acid* (Ascorbic Acid*), 500 MG GT DAILY, (Reported) Bisacodyl (Dulcolax), 10 MG RC PRN, (Reported) Cranberry Extract (Cranberry), 425 MG GT BID, (Reported) Docusate Sodium* (Docusate Sodium*), 100 MG GT DAILY, (Reported) Famotidine (Famotidine), 20 MG GT BID, (Reported) Ferrous Sulfate (Ferrous Sulfate), 330 MG GT DAILY, (Reported) Heparin Sodium,Porcine/Pf (Heparin 1,000 Unit/10 (100/ml)), 5,000 UNIT SQ Q12HR, (Reported) Ipratropium [place] 0.5MG/2.5ML (Ipratropium [place] 0.5MG/2.5ML), 0.5 MG HHN Q6H, (Reported) Letrozole (Letrozole), 2.5 MG GT DAILY, (Reported) Levetiracetam* (Levetiracetam*), 1,500 MG GT BID, (Reported) Levothyroxine Sodium* (Levothyroxine Sodium*), 75 MCG GT DAILY, (Reported) Multivitamin With Minerals (Multivitamins With Minerals*), 15 ML GT DAILY, ( Reported) Na Phos,M-B/Na Phos,Di-Ba* (Fleet Enema*), 133 ML RECTAL PRN, (Reported) Omeprazole (Omeprazole), 20 MG GT DAILY, (Reported) Phenytoin Sodium Extended (Phenytoin Sodium Extended), 300 MG GT BID, (Reported) Vitamin D (Vitamin D3), 400 UNITS GT DAILY, (Reported) Scheduled PRN Acetaminophen (Acetaminophen), 650 MG GT Q6H PRN for Prn Headache/Temp > 101, ( Reported) Magnesium Hydroxide (Milk of Magnesia), 30 ML GT DAILY PRN for Constipation, ( Reported) Patient History Healthcare decision maker N Resuscitation status Full Code Advanced Directive on File Patient History Narrative Pmhx: as above Shx: No E/T/D Fhx: non contributory Review of Systems All Other Systems: negative except mentioned in HPI Physical Exam Physical Exam Narrative General Appearance: no apparent distress Lines, tubes and drains: peripheral HEENT: mucous membranes moist Neck: normal inspection Respiratory/Chest: no respiratory distress, no accessory muscle use, decreased breath sounds Cardiovascular/Chest: normal rate Abdomen: soft, no organomegaly, no mass, distended, feeding tube - dislodged with balloon in abdominal wall tissue Extremities: other Skin Exam: other Neurologic: alert Last 24 Hour Vital Signs Date Time Temp Pulse Resp B/P (MAP) Pulse Ox O2 Delivery O2 Flow Rate FiO2 01/18/19 12:34 78 18 40 01/18/19 12:00 Mechanical Ventilator 01/18/19 12:00 98.2 72 17 102/54 (70) 97 01/18/19 10:37 80 18 40 01/18/19 08:37 81 19 40 01/18/19 08:00 97.9 83 17 131/74 (93) 97 01/18/19 08:00 Mechanical Ventilator 01/18/19 08:00 79 01/18/19 07:21 83 18 40 01/18/19 05:21 83 18 40 01/18/19 04:00 Mechanical Ventilator 01/18/19 04:00 97.7 76 17 115/66 (82) 99 01/18/19 03:52 78 01/18/19 03:30 79 19 40 01/18/19 01:14 69 18 40 01/18/19 00:00 Mechanical Ventilator 01/18/19 00:00 97.3 69 19 117/63 (81) 97 01/17/19 23:35 71 01/17/19 22:58 96 25 40 01/17/19 21:34 75 18 40 01/17/19 20:00 Mechanical Ventilator 01/17/19 20:00 40 01/17/19 20:00 98.4 67 19 109/61 (77) 99 01/17/19 19:54 71 18 40 01/17/19 19:28 Mechanical Ventilator 01/17/19 19:15 76 01/17/19 17:00 98.2 81 18 108/69 (82) 98 01/17/19 17:00 77 18 40 01/17/19 16:19 99.7 88 19 148/82 99 Mechanical Ventilator 40 01/17/19 16:19 99.7 88 19 148/82 99 Mechanical Ventilator 40 01/17/19 15:25 99.7 82 18 123/72 99 Mechanical Ventilator 01/17/19 15:15 79 18 40 Intake and Output 01/17/19 01/18/19 18:59 06:59 Intake Total 192.5 ml Output Total 300 ml Balance 192.5 ml -300 ml Intake IV Total 192.5 ml Output Urine Total 300 ml # Voids 1 # Bowel Movements 2 4 Laboratory Tests Test 01/18/19 03:15 White Blood Count 6.7 K/UL (4.8-10.8) Red Blood Count 3.75 M/UL (4.20-5.40) L Hemoglobin 13.1 G/DL (12.0-16.0) Hematocrit 37.5 % (37.0-47.0) Mean Corpuscular Volume 100 FL (80-99) H Mean Corpuscular Hemoglobin 34.9 PG (27.0-31.0) H Mean Corpuscular Hemoglobin Concent 34.9 G/DL (32.0-36.0) Red Cell Distribution Width 14.1 % (11.6-14.8) Platelet Count 150 K/UL (150-450) Mean Platelet Volume 9.8 FL (6.5-10.1) Neutrophils (%) (Auto) 69.7 % (45.0-75.0) Lymphocytes (%) (Auto) 18.0 % (20.0-45.0) L Monocytes (%) (Auto) 8.7 % (1.0-10.0) Eosinophils (%) (Auto) 2.8 % (0.0-3.0) Basophils (%) (Auto) 0.8 % (0.0-2.0) Sodium Level 139 MMOL/L (136-145) Potassium Level 3.0 MMOL/L (3.5-5.1) L Chloride Level 103 MMOL/L (98-107) Carbon Dioxide Level 30 MMOL/L (21-32) Anion Gap 6 mmol/L (5-15) Blood Urea Nitrogen 14 mg/dL (7-18) Creatinine 0.6 MG/DL (0.55-1.30) Estimat Glomerular Filtration Rate mL/min (>60) Glucose Level 100 MG/DL (74-106) Hemoglobin A1c 5.0 % (4.3-6.0) Calcium Level 9.6 MG/DL (8.5-10.1) Phosphorus Level 3.1 MG/DL (2.5-4.9) Albumin 2.5 G/DL (3.4-5.0) L Height (Feet): 5 Height (Inches): 4.00 Weight (Pounds): 224 Medications Current Medications Medications (Trade) Dose Ordered Sig/Boubacar Route PRN Reason Start Time Stop Time Status Last Admin Dose Admin Acetaminophen (Tylenol) 650 mg Q4H PRN ORAL fever 01/17/19 14:46 02/16/19 14:45 Albuterol/ Ipratropium (Albuterol/ Ipratropium) 3 ml Q4H PRN HHN Shortness of Breath 01/17/19 14:48 01/22/19 14:47 Cefepime HCl 2 gm/ Dextrose 55 ml @ 110 mls/hr Q24H IV 01/17/19 18:00 01/24/19 17:59 01/17/19 17:43 Dextrose (Dextrose 50%) 25 ml Q30M PRN IV Hypoglycemia 01/18/19 11:00 02/17/19 10:59 Dextrose (Dextrose 50%) 50 ml Q30M PRN IV Hypoglycemia 01/18/19 11:00 02/17/19 10:59 Heparin Sodium (Porcine) (Heparin 5000 units/ml) 5,000 units EVERY 12 HOURS SUBQ 01/17/19 21:00 02/16/19 20:59 01/18/19 08:31 Insulin Aspart (NovoLOG) Q6HR SUBQ 01/18/19 12:00 02/17/19 11:59 Letrozole (Femara) 2.5 mg DAILY ORAL 01/18/19 09:00 01/23/19 08:59 01/18/19 08:30 Levetiracetam (Keppra) 1,500 mg BID GT 01/17/19 18:00 02/16/19 17:59 01/18/19 08:31 Levothyroxine Sodium (Synthroid) 75 mcg DAILY@0630 GT 01/18/19 06:30 02/17/19 06:29 01/18/19 06:53 Nitroglycerin (Ntg) 0.4 mg Q5M PRN SL Prn Chest Pain 01/17/19 14:47 02/16/19 14:46 Ondansetron HCl (Zofran) 4 mg Q6H PRN IVP Nausea & Vomiting 01/17/19 14:48 02/16/19 14:47 Polyethylene Glycol (Miralax) 17 gm DAILYPRN PRN ORAL Constipation 01/17/19 14:46 02/16/19 14:45 Promethazine HCl/ Codeine (Phenergan with Codeine) 5 ml Q4H PRN ORAL For Cough 01/17/19 14:47 02/16/19 14:46 Temazepam (Restoril) 15 mg HSPRN PRN ORAL Insomnia 01/17/19 21:00 01/24/19 20:59 Vancomycin HCl (Vanco rx to dose) 1 ea DAILY PRN MISC Per rx protocol 01/17/19 14:45 02/16/19 14:44 Vancomycin HCl/ Dextrose 275 ml @ 137.5 mls/ hr Q24H IVPB 01/18/19 14:00 01/23/19 13:59 01/18/19 13:28 Assessment/Plan Assessment/Plan: Abx: IV Vancomycin 01/17- Cefepime 01/17- Assessment: GT malfunction and surrounding mild cellulitis Afebrile No leukocytosis -CT abd/p: Moderate retention of feces within the colon with a liquefied stool , sign of diarrhea. Correlate clinically Gastrostomy tube with the tip projected over the region of the pylorus. Small umbilical hernia containing fat. Atherosclerotic disease. Hypodensity in the left kidney may be cystic but not adequately evaluated. Calcification in the cystic liver nonspecific. Basilar atelectasis hx of recent sepsis 2ry to UTI 10/2018 UCx - Ecoli Chronic resp failure trach/vent dependant Dementia non-verbal COPD CAD/STEMI CHF Seizure disorder HTN CVA dysphagia s/p PEG NH resident Plan: -Switch Cefepime and IV Vancomcycin #2/5 for PO Keflex -/ SP Cefepime #7 - 10/10/18 SP Vancomycin #2 -f/u cx -Monitor CBC/CMP, temperatures -wound care per surgical team -GI, Sx f/u -PEG/Trach care -aspiration precautions Thank you for this consultation. Will continue to follow along with you. Discussed with CESAR. Sadia Medeiros M.D. January 18, 2019 15:06
--- NOTE | 2019-01-18 15:26 | NUR ---
NURSE NOTES:WOUND CARE NOTES:Pt presented on admission with partial thickness pressure injury to L side of neck.Base of wound moist -viable with pink epithelial borders .Small amt sanguineous exudate noted. partial thickness pressure injury to R side of neck under trach collar .Base of wound pink with shearing skin. Moisture Barrier Paste applied to both sites.Covered with Optifoam. RT informed of Skin breakdown. Primary RN present and is aware of pressure injuries R and L side of neck. Hyperpigmentation with small dry scab R buttocks noted. Both heels are firm and blanchable. Tx.Plan: Apply Moisture Barrier paste to R and L sides of neck. May apply Gauze padding under trach collar Daily and prn. Apply Moisture Barrier Paste to Sacrum .Cover with Optifoam drsg. Change every 3 days and prn. Apply MOisture Barrier Paste to Abd folds and bilat groin areas with each incontinence care. Apply Cavilon Skin Barrier to both heels daily. Reposition at least every 2hours or as tolerated. Off-load heels with pillow.
[2019-01-18 16:00] VITALS: BP 121/62
--- NOTE | 2019-01-18 17:00 | History and Physical Report ---
DATE OF ADMISSION: 01/17/2019 DATE AND TIME SEEN: 01/18/2019 at 8 a.m. CONSULTANTS: 1. Savi Rodriguez M.D, 2. Wilmer Cardenas, 3. Delmer Madera M.D. CHIEF COMPLAINT: G-tube malfunction. History is obtained from chart since the patient on trach and vent, altered. BRIEF HISTORY: This is a 78-year-old female from [facility] presents with history of G-tube malfunction, sent to [facility], and the ER physician unable to replace therefore admitted for GI doctor. Currently, calm, on trach and vent, altered in bed nonverbal. PAST MEDICAL HISTORY: Respiratory failure, seizure, CHF, anoxic brain, hypertension, hypothyroid, paraplegia, and second-degree AV block. PAST SURGICAL HISTORY: Trach and G-tube. ALLERGIES: Denies. SOCIAL HISTORY: Unable to obtain secondary to the patient's condition. REVIEW OF SYSTEMS: Unobtainable. PHYSICAL EXAMINATION: GENERAL: On trach and vent, altered, lethargic in bed nonverbal VITAL SIGNS: Temperature is 97 degrees, pulse 83, respirations 18, and blood pressure 115/66. CARDIOVASCULAR: No murmur. LUNGS: Poor air exchange ABDOMEN: Bowel sounds distant. EXTREMITIES: No cyanosis, clubbing, or edema. NEUROLOGIC: The patient is flaccid in bed, nonverbal. LABORATORY DATA: CBC is normal. BMP shows potassium 3.0, otherwise normal. Albumin 2.5. Lipase 71. MEDICATIONS: Include vancomycin, letrozole, potassium, levothyroxine, heparin, temazepam, levetiracetam, cefepime, albuterol, Zofran, nitroglycerin, and promethazine. ASSESSMENT: 1. G-tube malfunction. 2. Respiratory failure. 3. Malnutrition. 4. History of seizure. 5. Congestive heart failure. 6. Anoxic encephalopathy. 7. Hypertension. 8. Hypothyroid. 9. Paraplegia. 10. Second-degree AV block. PLAN: 1. Vent per Pulmonary. 2. Antibiotics per Infectious Disease. 3. Blood pressure and seizure control. 4. Dietary followup. 5. G-tube evaluation per Dr. Cardenas. 6. PT and dietary evaluation. 7. CBC and BMP in morning. 8. We will continue to follow this patient. Juaquin Ramos D.O. DR: KAILEY JOB#: [id number] CC:
--- NOTE | 2019-01-18 17:00 | NUR ---
NURSE NOTES: Patient noted with episode of low heart rate of 40 bpm, heart rate returned to 62 bpm, asymptomatic. Contacted and informed Dr. Rodriguez. acknowledged, ordered Dr. Minor as cardiology consult. Dr. Minor at nurse station informed of situation and 12 Lead EKG result in chart, Dr. Minor acknowledged, no new orders given at this time. Will continue to monitor patient. Made charge nurse aware.
[2019-01-18] MEDS: Cefepime HCl 2 GM in D5W 55 ML IV SCH (17:50)
--- NOTE | 2019-01-18 18:30 | NUR ---
NURSE NOTES: Rectal tube inserted per PING Grossman order. Rectal tube noted secure and draining. Patient tolerated procedure.
--- NOTE | 2019-01-18 18:41 | Cardiology Progress Note ---
Assessment/Plan Assessment/Plan [id number] Objective Last 24 Hour Vital Signs Date Time Temp Pulse Resp B/P (MAP) Pulse Ox O2 Delivery O2 Flow Rate FiO2 01/18/19 16:52 60 18 40 01/18/19 16:00 97.5 68 17 121/62 (81) 95 01/18/19 16:00 Mechanical Ventilator 01/18/19 14:58 68 18 40 01/18/19 12:34 78 18 40 01/18/19 12:00 Mechanical Ventilator 01/18/19 12:00 98.2 72 17 102/54 (70) 97 01/18/19 10:37 80 18 40 01/18/19 08:37 81 19 40 01/18/19 08:00 97.9 83 17 131/74 (93) 97 01/18/19 08:00 Mechanical Ventilator 01/18/19 08:00 79 01/18/19 07:21 83 18 40 01/18/19 05:21 83 18 40 01/18/19 04:00 Mechanical Ventilator 01/18/19 04:00 97.7 76 17 115/66 (82) 99 01/18/19 03:52 78 01/18/19 03:30 79 19 40 01/18/19 01:14 69 18 40 01/18/19 00:00 Mechanical Ventilator 01/18/19 00:00 97.3 69 19 117/63 (81) 97 01/17/19 23:35 71 01/17/19 22:58 96 25 40 01/17/19 21:34 75 18 40 01/17/19 20:00 Mechanical Ventilator 01/17/19 20:00 40 01/17/19 20:00 98.4 67 19 109/61 (77) 99 01/17/19 19:54 71 18 40 01/17/19 19:28 Mechanical Ventilator 01/17/19 19:15 76 Intake and Output 01/17/19 01/18/19 19:00 07:00 Intake Total 192.5 ml Output Total 300 ml Balance 192.5 ml -300 ml Intake IV Total 192.5 ml Output Urine Total 300 ml # Voids 1 # Bowel Movements 2 4 Laboratory Tests Test 01/18/19 03:15 White Blood Count 6.7 K/UL (4.8-10.8) Red Blood Count 3.75 M/UL (4.20-5.40) L Hemoglobin 13.1 G/DL (12.0-16.0) Hematocrit 37.5 % (37.0-47.0) Mean Corpuscular Volume 100 FL (80-99) H Mean Corpuscular Hemoglobin 34.9 PG (27.0-31.0) H Mean Corpuscular Hemoglobin Concent 34.9 G/DL (32.0-36.0) Red Cell Distribution Width 14.1 % (11.6-14.8) Platelet Count 150 K/UL (150-450) Mean Platelet Volume 9.8 FL (6.5-10.1) Neutrophils (%) (Auto) 69.7 % (45.0-75.0) Lymphocytes (%) (Auto) 18.0 % (20.0-45.0) L Monocytes (%) (Auto) 8.7 % (1.0-10.0) Eosinophils (%) (Auto) 2.8 % (0.0-3.0) Basophils (%) (Auto) 0.8 % (0.0-2.0) Sodium Level 139 MMOL/L (136-145) Potassium Level 3.0 MMOL/L (3.5-5.1) L Chloride Level 103 MMOL/L (98-107) Carbon Dioxide Level 30 MMOL/L (21-32) Anion Gap 6 mmol/L (5-15) Blood Urea Nitrogen 14 mg/dL (7-18) Creatinine 0.6 MG/DL (0.55-1.30) Estimat Glomerular Filtration Rate mL/min (>60) Glucose Level 100 MG/DL (74-106) Hemoglobin A1c 5.0 % (4.3-6.0) Calcium Level 9.6 MG/DL (8.5-10.1) Phosphorus Level 3.1 MG/DL (2.5-4.9) Albumin 2.5 G/DL (3.4-5.0) Mathew Zamudio MD January 18, 2019 18:41
--- NOTE | 2019-01-18 19:00 | NUR ---
NURSE NOTES: Informed Chauncey IRRIGATING PUMP OPERATOR of dietitian tube feeding recommendation of Jevity 1.2. Chauncey acknowledged and ordered to change tube feeding to Jevity 1.2 at recommended rate. Orders entered, noted, and carried out. Will continue to monitor patient.
--- NOTE | 2019-01-18 19:05 | NUR ---
NURSE NOTES: Received report from Jocelin Valles RN. Patient is awake in bed, A/O x1, non-verbal. Sinus rhythm on teletypesetter monitor. Saturating well on trach-vent settings: Portex 8, AC 18, vT 600, FiO2 40%, PEEP 5. Rectal tube in place and draining. Purewick catheter in place and suctioning well. Left finger 22g IV TKO, intact and patent. Bed locked in lowest position with padded side rails up x3. Call light left within reach. Will continue to monitor.
--- NOTE | 2019-01-18 19:30 | NUR ---
HAND-OFF: Report given to CESAR Bose.
[2019-01-18 20:00] VITALS: BP 100/50
[2019-01-18] MEDS: Miralax 17gm pkt GT SCH (20:29)
[2019-01-19] VITALS: BP 101/50
[2019-01-19 04:00] VITALS: BP 110/70
[2019-01-19 05:32] LABS: EOSINOPHILS % (AUTO) 4.1 % (0.0-3.0); HEMATOCRIT 38.2 % (37.0-47.0); LYMPHOCYTES % (AUTO) 18.8 % (20.0-45.0); MEAN CORPUSCULAR VOLUME 101 FL (80-99); MONOCYTES % (AUTO) 8.9 % (1.0-10.0); NEUTROPHILS % (AUTO) 67.1 % (45.0-75.0); PLATELET COUNT 142 K/UL (150-450); RED BLOOD COUNT 3.79 M/UL (4.20-5.40); RED CELL DISTRIBUTION WIDTH 14.2 % (11.6-14.8); WHITE BLOOD COUNT 6.3 K/UL (4.8-10.8)
[2019-01-19 05:39] LABS: ANION GAP 7 mmol/L (5-15); BLOOD UREA NITROGEN 12 mg/dL (7-18); CALCIUM 9.4 MG/DL (8.5-10.1); CARBON DIOXIDE 30 MMOL/L (21-32); CHLORIDE 105 MMOL/L (98-107); CREATININE 0.5 MG/DL (0.55-1.30); POTASSIUM 2.9 MMOL/L (3.5-5.1); SODIUM 141 MMOL/L (136-145)
[2019-01-19] MEDS: NovoLOG Insulin Flexpen SUBQ SCH ×4 (05:54→17:25)
[2019-01-19] MEDS ORDERED: Cephalexin 500mg cap ORAL SCH (06:00)
--- NOTE | 2019-01-19 06:48 | NUR ---
NURSE NOTES: Dr. Richard MD made aware of potassium 2.9. New orders received. Noted and carried out.
--- NOTE | 2019-01-19 07:25 | NUR ---
HAND-OFF: Report given to Gogo Walker RN.
--- NOTE | 2019-01-19 07:35 | NUR ---
NURSE NOTES: received patient report from viky farrell. patient is on bed awake. not in acute distress. on tf running @ 30cc/hr. on vent. not in acute distress. comfortable. no arrythmias reported during the night. will follow plan of care.
[2019-01-19 08:00] VITALS: BP 112/47
[2019-01-19] MEDS: levETIRAcetam 500mg/5ml Liquid GT SCH ×2 (08:11→17:25)
[2019-01-19] MEDS: Heparin 5000 units/ml inj SUBQ SCH ×2 (08:12→20:46)
--- NOTE | 2019-01-19 08:20 | Pulmonology Progress Note ---
Assessment/Plan Assessment/Plan ASSESSMENT Chronic ventilator dependent respiratory failure with tracheostomy status G-tube malfunction with mild cellulitis Colon distention Dysphagia, feeding by G tube COPD Hypertension History of MT/STEMI Diabetes mellitus Anoxic encephalopathy History of CVA Seizure disorder Electrolyte abnormality Hypothyroidism Hypokalemia PLAN OF CARE DIANA Vent support, trach care Pulmonary toilet Baseline ABG and optimize setting as needed sputum cx + 3 dif species GNR, + Strep group G -possibly contamination, given no fevers, no resp distress, no leukocytosis follow-up with chest x-ray DVT prophylaxis G-tube site care antibiotics changed to oral as per ID recommendation CT of the abdomen pelvis noted. Moderate retention of feces within the colon with a liquefied stool, sign of diarrhea. Gastrostomy tube with the tip projected over the region of the pylorus. Basilar atelectasis GI follows Bowel regimen, PPI, rectal tube for decompression Strict aspiration precaution G-tube feeding 01/19-replace, K, check Mg -stable Blood sugar management with sliding scale insulin, HgA1c - 5.0 BP stable w/out any anti-HTN for now, monitor Continue Levothyroxine, check TSH in am Seizure precaution Monitor electrolytes and correct as needed, Supportive care case discussed and evaluated by supervising physician Subjective Allergies: Coded Allergies: PEANUT (Verified Allergy, Unknown, 09/22/16) Subjective no signs of resp distress on current settings, afebrile, no leukocytosis K-2.9 Objective Last 24 Hour Vital Signs Date Time Temp Pulse Resp B/P (MAP) Pulse Ox O2 Delivery O2 Flow Rate FiO2 01/19/19 06:44 67 18 40 01/19/19 05:01 71 18 40 01/19/19 04:00 Mechanical Ventilator 01/19/19 04:00 40 01/19/19 04:00 97.7 70 18 110/70 (83) 96 01/19/19 03:31 66 01/19/19 02:46 82 18 40 01/19/19 01:06 68 18 40 01/19/19 00:00 Mechanical Ventilator 01/19/19 00:00 98.1 70 18 101/50 (67) 100 01/18/19 23:26 70 01/18/19 22:40 70 18 40 01/18/19 20:43 69 18 40 01/18/19 20:00 Mechanical Ventilator 01/18/19 20:00 40 01/18/19 20:00 97.9 67 18 100/50 (67) 100 01/18/19 19:21 66 01/18/19 18:58 77 18 40 01/18/19 16:52 60 18 40 01/18/19 16:00 97.5 68 17 121/62 (81) 95 01/18/19 16:00 77 01/18/19 16:00 Mechanical Ventilator 01/18/19 14:58 68 18 40 01/18/19 12:34 78 18 40 01/18/19 12:00 Mechanical Ventilator 01/18/19 12:00 77 01/18/19 12:00 98.2 72 17 102/54 (70) 97 01/18/19 10:37 80 18 40 01/18/19 08:37 81 19 40 Intake and Output 01/18/19 01/19/19 19:00 07:00 Intake Total 60 ml 280 ml Output Total 250 ml Balance 60 ml 30 ml Intake Free Water 150 ml Tube Feeding 60 ml 130 ml Output Urine Total 250 ml # Voids 2 # Bowel Movements 5 100 General Appearance: no acute distress, other - bedridden, chronically ill looking , vent dependent AA female HEENT: normocephalic, status post trach - Portex#8, secretions small, white and thin Respiratory/Chest: normal breath sounds, no respiratory distress, other - Vent AC 600-18-40% Cardiovascular: normal rate Abdomen: normal bowel sounds, soft, non tender - distention , other - rectal tube Neurologic/Psychiatric: abnormal gait, other - awake, notresponsive Musculoskeletal: atrophy - BLE Microbiology Date/Time Source Procedure Growth Status 01/17/19 14:35 Sputum Gram Stain - Final Resulted 01/17/19 14:35 Sputum Culture - Preliminary Gram Negative Bacillus 1 Gram Negative Bacillus 2 Gram Negative Bacillus 3 Streptococcus Group G Resulted 01/17/19 14:05 Nasal Nares MRSA Culture - Final NO METHICILLIN RESISTANT STAPH AUREUS... Complete 01/17/19 14:05 Rectum VRE Culture - Final NO VANCOMYCIN RESISTANT ENTEROCOCCUS ... Complete 01/17/19 14:05 Rectum - Final NO CARBAPENEM-RESISTANT ENTEROBACTERI... Complete Laboratory Tests 01/19/19 04:00: White Blood Count 6.3, Red Blood Count 3.79L, Hemoglobin 13.0, Hematocrit 38.2, Mean Corpuscular Volume 101H, Mean Corpuscular Hemoglobin 34.3H, Mean Corpuscular Hemoglobin Concent 34.0, Red Cell Distribution Width 14.2, Platelet Count 142L, Mean Platelet Volume 10.4H, Neutrophils (%) (Auto) 67.1, Lymphocytes (%) (Auto) 18.8L, Monocytes (%) (Auto) 8.9, Eosinophils (%) (Auto) 4.1H, Basophils (%) (Auto) 1.0, Sodium Level 141, Potassium Level 2.9L, Chloride Level 105, Carbon Dioxide Level 30, Anion Gap 7, Blood Urea Nitrogen 12 , Creatinine 0.5L, Estimat Glomerular Filtration Rate , Glucose Level 99, Calcium Level 9.4 Current Medications Medications (Trade) Dose Ordered Sig/Boubacar Route PRN Reason Start Time Stop Time Status Last Admin Dose Admin Acetaminophen (Tylenol) 650 mg Q4H PRN ORAL fever 01/17/19 14:46 02/16/19 14:45 Albuterol/ Ipratropium (Albuterol/ Ipratropium) 3 ml Q4H PRN HHN Shortness of Breath 01/17/19 14:48 01/22/19 14:47 Cephalexin (Keflex) 500 mg Q6HR GT 01/19/19 12:00 01/26/19 05:59 Dextrose (Dextrose 50%) 25 ml Q30M PRN IV Hypoglycemia 01/18/19 11:00 02/17/19 10:59 Dextrose (Dextrose 50%) 50 ml Q30M PRN IV Hypoglycemia 01/18/19 11:00 02/17/19 10:59 Heparin Sodium (Porcine) (Heparin 5000 units/ml) 5,000 units EVERY 12 HOURS SUBQ 01/17/19 21:00 02/16/19 20:59 01/19/19 08:12 Insulin Aspart (NovoLOG) Q6HR SUBQ 01/18/19 12:00 02/17/19 11:59 Letrozole (Femara) 2.5 mg DAILY ORAL 01/19/19 09:00 01/23/19 08:59 01/19/19 08:10 Levetiracetam (Keppra) 1,500 mg BID GT 01/17/19 18:00 02/16/19 17:59 01/19/19 08:11 Levothyroxine Sodium (Synthroid) 75 mcg DAILY@0630 GT 01/18/19 06:30 02/17/19 06:29 01/19/19 05:54 Nitroglycerin (Ntg) 0.4 mg Q5M PRN SL Prn Chest Pain 01/17/19 14:47 02/16/19 14:46 Ondansetron HCl (Zofran) 4 mg Q6H PRN IVP Nausea & Vomiting 01/17/19 14:48 02/16/19 14:47 Polyethylene Glycol (Miralax) 17 gm BEDTIME GT 01/18/19 21:00 02/17/19 20:59 01/18/19 20:29 Polyethylene Glycol (Miralax) 17 gm DAILYPRN PRN ORAL Constipation 01/17/19 14:46 02/16/19 14:45 Potassium Chloride (K-Dur) 40 meq ONCE GT 01/19/19 09:00 01/19/19 10:00 01/19/19 08:10 Promethazine HCl/ Codeine (Phenergan with Codeine) 5 ml Q4H PRN ORAL For Cough 01/17/19 14:47 02/16/19 14:46 Temazepam (Restoril) 15 mg HSPRN PRN ORAL Insomnia 01/17/19 21:00 01/24/19 20:59 Libby Collins NP January 19, 2019 08:20
--- NOTE | 2019-01-19 08:21 | General Progress Note ---
Assessment/Plan Problem List: (1) Status post tracheostomy ICD Codes: Z93.0 - Tracheostomy status SNOMED: 13856366, 422589544 (2) G-tube site cellulitis ICD Codes: K94.22 - Gastrostomy infection; L03.319 - Cellulitis of trunk, unspecified SNOMED: 412759997, 228683005 (3) Malfunction of gastrostomy tube ICD Codes: K94.23 - Gastrostomy malfunction SNOMED: 623971579 (4) HTN (hypertension) ICD Codes: I10 - Essential (primary) hypertension SNOMED: 12729642 (5) Seizure disorder ICD Codes: G40.909 - Epilepsy, unspecified, not intractable, without status epilepticus SNOMED: 391989356 (6) Hypothyroidism ICD Codes: E03.9 - Hypothyroidism, unspecified SNOMED: 63581012 (7) Feeding by G-tube ICD Codes: Z93.1 - Gastrostomy status SNOMED: 958424503, 865269055 Assessment/Plan: GT has been fixed GTF running replace K dc planning Subjective ROS Limited/Unobtainable: No Allergies: Coded Allergies: PEANUT (Verified Allergy, Unknown, 09/22/16) Objective Last 24 Hour Vital Signs Date Time Temp Pulse Resp B/P (MAP) Pulse Ox O2 Delivery O2 Flow Rate FiO2 01/19/19 06:44 67 18 40 01/19/19 05:01 71 18 40 01/19/19 04:00 Mechanical Ventilator 01/19/19 04:00 40 01/19/19 04:00 97.7 70 18 110/70 (83) 96 01/19/19 03:31 66 01/19/19 02:46 82 18 40 01/19/19 01:06 68 18 40 01/19/19 00:00 Mechanical Ventilator 01/19/19 00:00 98.1 70 18 101/50 (67) 100 01/18/19 23:26 70 01/18/19 22:40 70 18 40 01/18/19 20:43 69 18 40 01/18/19 20:00 Mechanical Ventilator 01/18/19 20:00 40 01/18/19 20:00 97.9 67 18 100/50 (67) 100 01/18/19 19:21 66 01/18/19 18:58 77 18 40 01/18/19 16:52 60 18 40 01/18/19 16:00 97.5 68 17 121/62 (81) 95 01/18/19 16:00 77 01/18/19 16:00 Mechanical Ventilator 01/18/19 14:58 68 18 40 01/18/19 12:34 78 18 40 01/18/19 12:00 Mechanical Ventilator 01/18/19 12:00 77 01/18/19 12:00 98.2 72 17 102/54 (70) 97 01/18/19 10:37 80 18 40 01/18/19 08:37 81 19 40 Intake and Output 01/18/19 01/19/19 19:00 07:00 Intake Total 60 ml 280 ml Output Total 250 ml Balance 60 ml 30 ml Intake Free Water 150 ml Tube Feeding 60 ml 130 ml Output Urine Total 250 ml # Voids 2 # Bowel Movements 5 100 Laboratory Tests 01/19/19 04:00: White Blood Count 6.3, Red Blood Count 3.79L, Hemoglobin 13.0, Hematocrit 38.2, Mean Corpuscular Volume 101H, Mean Corpuscular Hemoglobin 34.3H, Mean Corpuscular Hemoglobin Concent 34.0, Red Cell Distribution Width 14.2, Platelet Count 142L, Mean Platelet Volume 10.4H, Neutrophils (%) (Auto) 67.1, Lymphocytes (%) (Auto) 18.8L, Monocytes (%) (Auto) 8.9, Eosinophils (%) (Auto) 4.1H, Basophils (%) (Auto) 1.0, Sodium Level 141, Potassium Level 2.9L, Chloride Level 105, Carbon Dioxide Level 30, Anion Gap 7, Blood Urea Nitrogen 12 , Creatinine 0.5L, Estimat Glomerular Filtration Rate , Glucose Level 99, Calcium Level 9.4 Height (Feet): 5 Height (Inches): 4.00 Weight (Pounds): 224 General Appearance: no apparent distress EENT: normal ENT inspection Neck: supple Cardiovascular: normal rate Respiratory/Chest: decreased breath sounds Abdomen: normal bowel sounds, non tender, soft Extremities: non-tender Wilmer Cardenas MD January 19, 2019 08:21
[2019-01-19] MEDS ORDERED: Tubing IV Secondary IV ONE (10:23)
[2019-01-19] MEDS ORDERED: 1/2 NS 1000ml IV ONE (10:23)
[2019-01-19] MEDS ORDERED: NS 275ml ONE (10:23)
--- NOTE | 2019-01-19 11:18 | Surgery Progress Note ---
Surgery Progress Note Subjective Additional Comments no acute events. comfortable. stable. g tube functional and feeds running well without leak Objective Last 24 Hour Vital Signs Date Time Temp Pulse Resp B/P (MAP) Pulse Ox O2 Delivery O2 Flow Rate FiO2 01/19/19 10:58 67 18 40 01/19/19 09:10 76 18 40 01/19/19 08:00 61 01/19/19 08:00 40 01/19/19 08:00 97.5 75 18 112/47 (68) 99 01/19/19 08:00 Mechanical Ventilator 01/19/19 06:44 67 18 40 01/19/19 05:01 71 18 40 01/19/19 04:00 Mechanical Ventilator 01/19/19 04:00 40 01/19/19 04:00 97.7 70 18 110/70 (83) 96 01/19/19 03:31 66 01/19/19 02:46 82 18 40 01/19/19 01:06 68 18 40 01/19/19 00:00 Mechanical Ventilator 01/19/19 00:00 98.1 70 18 101/50 (67) 100 01/18/19 23:26 70 01/18/19 22:40 70 18 40 01/18/19 20:43 69 18 40 01/18/19 20:00 Mechanical Ventilator 01/18/19 20:00 40 01/18/19 20:00 97.9 67 18 100/50 (67) 100 01/18/19 19:21 66 01/18/19 18:58 77 18 40 01/18/19 16:52 60 18 40 01/18/19 16:00 97.5 68 17 121/62 (81) 95 01/18/19 16:00 77 01/18/19 16:00 Mechanical Ventilator 01/18/19 14:58 68 18 40 01/18/19 12:34 78 18 40 01/18/19 12:00 Mechanical Ventilator 01/18/19 12:00 77 01/18/19 12:00 98.2 72 17 102/54 (70) 97 I&O Intake and Output 01/18/19 01/19/19 19:00 07:00 Intake Total 60 ml 280 ml Output Total 250 ml Balance 60 ml 30 ml Intake Free Water 150 ml Tube Feeding 60 ml 130 ml Output Urine Total 250 ml # Voids 2 # Bowel Movements 5 100 Dressing: dry Wound: clean Drains: other Cardiovascular: RSR Respiratory: decreased breath sounds Abdomen: soft, present bowel sounds, non-distended Extremities: no tenderness, no cyanosis Laboratory Tests Test 01/19/19 04:00 White Blood Count 6.3 K/UL (4.8-10.8) Red Blood Count 3.79 M/UL (4.20-5.40) L Hemoglobin 13.0 G/DL (12.0-16.0) Hematocrit 38.2 % (37.0-47.0) Mean Corpuscular Volume 101 FL (80-99) H Mean Corpuscular Hemoglobin 34.3 PG (27.0-31.0) H Mean Corpuscular Hemoglobin Concent 34.0 G/DL (32.0-36.0) Red Cell Distribution Width 14.2 % (11.6-14.8) Platelet Count 142 K/UL (150-450) L Mean Platelet Volume 10.4 FL (6.5-10.1) H Neutrophils (%) (Auto) 67.1 % (45.0-75.0) Lymphocytes (%) (Auto) 18.8 % (20.0-45.0) L Monocytes (%) (Auto) 8.9 % (1.0-10.0) Eosinophils (%) (Auto) 4.1 % (0.0-3.0) H Basophils (%) (Auto) 1.0 % (0.0-2.0) Sodium Level 141 MMOL/L (136-145) Potassium Level 2.9 MMOL/L (3.5-5.1) L Chloride Level 105 MMOL/L (98-107) Carbon Dioxide Level 30 MMOL/L (21-32) Anion Gap 7 mmol/L (5-15) Blood Urea Nitrogen 12 mg/dL (7-18) Creatinine 0.5 MG/DL (0.55-1.30) L Estimat Glomerular Filtration Rate mL/min (>60) Glucose Level 99 MG/DL (74-106) Calcium Level 9.4 MG/DL (8.5-10.1) Magnesium Level 2.1 MG/DL (1.8-2.4) Plan Problems: (1) Abdominal wall cellulitis Assessment & Plan: Patient has developed abdominal wall cellulitis around G tube site g tube evaluated and dislodged with balloon in abdominal wall soft tissue g tube removed at bedside. balloon deflated. tube has good track but wide given dislodged with balloon inflated keep balloon deflated and tube in place. tube taped in place plan to suture tube in place tomorrow if continues to go well okay to use tube for now appreciate GI input (2) G-tube site cellulitis Assessment & Plan: as above (3) Colon distention Assessment & Plan: KUB: Gastrostomy noted. The tip is not well seen but there is contrast in the fundus of the stomach. The position of the gastrostomy is not adequately elucidated on this exam. Patient has a chronically and massively distended sigmoid colon. Previous CT showed no evidence of volvulus. There is nonvisualization of the lower part of the abdomen and pelvis which was not imaged. There is contrast within the left hemicolon and transverse colon. unsure what contrast in colon is from and how long it has been there recommend follow up CT ordered will follow with recs (4) Malfunction of gastrostomy tube Heath Martell January 19, 2019 11:18
--- NOTE | 2019-01-19 11:31 | Infectious Diseases Prog Note ---
Assessment/Plan Assessment/Plan Abx: IV Vancomycin 01/17- Cefepime 01/17- Assessment: GT malfunction and surrounding mild cellulitis Afebrile No leukocytosis -CT abd/p: Moderate retention of feces within the colon with a liquefied stool , sign of diarrhea. Correlate clinically Gastrostomy tube with the tip projected over the region of the pylorus. Small umbilical hernia containing fat. Atherosclerotic disease. Hypodensity in the left kidney may be cystic but not adequately evaluated. Calcification in the cystic liver nonspecific. Basilar atelectasis -sp cx GGS, GNB #1,#2; ?colonziers- await CXR hx of recent sepsis 2ry to UTI 10/2018 UCx - Ecoli Chronic resp failure trach/vent dependant Dementia non-verbal COPD CAD/STEMI CHF Seizure disorder HTN CVA dysphagia s/p PEG [facility] resident Plan: -Cont PO Keflex #2 (abx d #11/06) -if evidence of PNA on CXR, switch Keflex to Cefepime -01/18 SP Cefepime and IV Vancomycin #2 -10/14 SP Cefepime #7 - 10/10/18 SP Vancomycin #2 -f/u cx -Monitor CBC/CMP, temperatures -wound care per surgical team -GI, Sx f/u -PEG/Trach care -aspiration precautions -CXR Thank you for this consultation. Will continue to follow along with you. Discussed with RN. Subjective Allergies: Coded Allergies: PEANUT (Verified Allergy, Unknown, 09/22/16) Subjective afebrile no leukocytosis Objective Vital Signs Last 24 Hour Vital Signs Date Time Temp Pulse Resp B/P (MAP) Pulse Ox O2 Delivery O2 Flow Rate FiO2 01/19/19 10:58 67 18 40 01/19/19 09:10 76 18 40 01/19/19 08:00 61 01/19/19 08:00 40 01/19/19 08:00 97.5 75 18 112/47 (68) 99 01/19/19 08:00 Mechanical Ventilator 01/19/19 06:44 67 18 40 01/19/19 05:01 71 18 40 01/19/19 04:00 Mechanical Ventilator 01/19/19 04:00 40 01/19/19 04:00 97.7 70 18 110/70 (83) 96 01/19/19 03:31 66 01/19/19 02:46 82 18 40 01/19/19 01:06 68 18 40 01/19/19 00:00 Mechanical Ventilator 01/19/19 00:00 98.1 70 18 101/50 (67) 100 01/18/19 23:26 70 01/18/19 22:40 70 18 40 01/18/19 20:43 69 18 40 01/18/19 20:00 Mechanical Ventilator 01/18/19 20:00 40 01/18/19 20:00 97.9 67 18 100/50 (67) 100 01/18/19 19:21 66 01/18/19 18:58 77 18 40 01/18/19 16:52 60 18 40 01/18/19 16:00 97.5 68 17 121/62 (81) 95 01/18/19 16:00 77 01/18/19 16:00 Mechanical Ventilator 01/18/19 14:58 68 18 40 01/18/19 12:34 78 18 40 01/18/19 12:00 Mechanical Ventilator 01/18/19 12:00 77 01/18/19 12:00 98.2 72 17 102/54 (70) 97 Height (Feet): 5 Height (Inches): 4.00 Weight (Pounds): 224 Objective General Appearance: no apparent distress Lines, tubes and drains: peripheral HEENT: mucous membranes moist Neck: normal inspection Respiratory/Chest: no respiratory distress, no accessory muscle use, decreased breath sounds Cardiovascular/Chest: normal rate Abdomen: soft, no organomegaly, no mass, distended, feeding tube - dislodged with balloon in abdominal wall tissue Extremities: other Skin Exam: other Neurologic: alert Microbiology Date/Time Source Procedure Growth Status 01/17/19 14:35 Sputum Gram Stain - Final Resulted 01/17/19 14:35 Sputum Culture - Preliminary Gram Negative Bacillus 1 Gram Negative Bacillus 2 Gram Negative Bacillus 3 Streptococcus Group G Resulted 01/17/19 14:05 Nasal Nares MRSA Culture - Final NO METHICILLIN RESISTANT STAPH AUREUS... Complete 01/17/19 14:05 Rectum VRE Culture - Final NO VANCOMYCIN RESISTANT ENTEROCOCCUS ... Complete 01/17/19 14:05 Rectum - Final NO CARBAPENEM-RESISTANT ENTEROBACTERI... Complete Laboratory Tests Test 01/19/19 04:00 White Blood Count 6.3 K/UL (4.8-10.8) Red Blood Count 3.79 M/UL (4.20-5.40) L Hemoglobin 13.0 G/DL (12.0-16.0) Hematocrit 38.2 % (37.0-47.0) Mean Corpuscular Volume 101 FL (80-99) H Mean Corpuscular Hemoglobin 34.3 PG (27.0-31.0) H Mean Corpuscular Hemoglobin Concent 34.0 G/DL (32.0-36.0) Red Cell Distribution Width 14.2 % (11.6-14.8) Platelet Count 142 K/UL (150-450) L Mean Platelet Volume 10.4 FL (6.5-10.1) H Neutrophils (%) (Auto) 67.1 % (45.0-75.0) Lymphocytes (%) (Auto) 18.8 % (20.0-45.0) L Monocytes (%) (Auto) 8.9 % (1.0-10.0) Eosinophils (%) (Auto) 4.1 % (0.0-3.0) H Basophils (%) (Auto) 1.0 % (0.0-2.0) Sodium Level 141 MMOL/L (136-145) Potassium Level 2.9 MMOL/L (3.5-5.1) L Chloride Level 105 MMOL/L (98-107) Carbon Dioxide Level 30 MMOL/L (21-32) Anion Gap 7 mmol/L (5-15) Blood Urea Nitrogen 12 mg/dL (7-18) Creatinine 0.5 MG/DL (0.55-1.30) L Estimat Glomerular Filtration Rate mL/min (>60) Glucose Level 99 MG/DL (74-106) Calcium Level 9.4 MG/DL (8.5-10.1) Magnesium Level 2.1 MG/DL (1.8-2.4) Current Medications Medications (Trade) Dose Ordered Sig/Boubacra Route PRN Reason Start Time Stop Time Status Last Admin Dose Admin Acetaminophen (Tylenol) 650 mg Q4H PRN ORAL fever 01/17/19 14:46 02/16/19 14:45 Albuterol/ Ipratropium (Albuterol/ Ipratropium) 3 ml Q4H PRN HHN Shortness of Breath 01/17/19 14:48 01/22/19 14:47 Cephalexin (Keflex) 500 mg Q6HR GT 01/19/19 12:00 01/26/19 05:59 Dextrose (Dextrose 50%) 25 ml Q30M PRN IV Hypoglycemia 01/18/19 11:00 02/17/19 10:59 Dextrose (Dextrose 50%) 50 ml Q30M PRN IV Hypoglycemia 01/18/19 11:00 02/17/19 10:59 Heparin Sodium (Porcine) (Heparin 5000 units/ml) 5,000 units EVERY 12 HOURS SUBQ 01/17/19 21:00 02/16/19 20:59 01/19/19 08:12 Insulin Aspart (NovoLOG) Q6HR SUBQ 01/18/19 12:00 02/17/19 11:59 Letrozole (Femara) 2.5 mg DAILY ORAL 01/19/19 09:00 01/23/19 08:59 01/19/19 08:10 Levetiracetam (Keppra) 1,500 mg BID GT 01/17/19 18:00 02/16/19 17:59 01/19/19 08:11 Levothyroxine Sodium (Synthroid) 75 mcg DAILY@0630 GT 01/18/19 06:30 02/17/19 06:29 01/19/19 05:54 Nitroglycerin (Ntg) 0.4 mg Q5M PRN SL Prn Chest Pain 01/17/19 14:47 02/16/19 14:46 Ondansetron HCl (Zofran) 4 mg Q6H PRN IVP Nausea & Vomiting 01/17/19 14:48 02/16/19 14:47 Polyethylene Glycol (Miralax) 17 gm BEDTIME GT 01/18/19 21:00 02/17/19 20:59 01/18/19 20:29 Polyethylene Glycol (Miralax) 17 gm DAILYPRN PRN ORAL Constipation 01/17/19 14:46 02/16/19 14:45 Promethazine HCl/ Codeine (Phenergan with Codeine) 5 ml Q4H PRN ORAL For Cough 01/17/19 14:47 02/16/19 14:46 Temazepam (Restoril) 15 mg HSPRN PRN ORAL Insomnia 01/17/19 21:00 01/24/19 20:59 Sadia Medeiros M.D. January 19, 2019 11:31
[2019-01-19 12:00] VITALS: BP 99/46
[2019-01-19] MEDS: Cephalexin 500mg cap GT SCH ×3 (13:00→23:59)
--- NOTE | 2019-01-19 13:38 | Cardiology Progress Note ---
Assessment/Plan Assessment/Plan avb mobitz 1 chronic respiratory faily hs of diastolic dysfunction rbbb conduction do telel ntoed lab noted woudl avodi neg chronotropic agents for now repeat ekg echo observe on tele Subjective ROS Limited/Unobtainable: Yes Objective Last 24 Hour Vital Signs Date Time Temp Pulse Resp B/P (MAP) Pulse Ox O2 Delivery O2 Flow Rate FiO2 01/19/19 10:58 67 18 40 01/19/19 09:10 76 18 40 01/19/19 08:00 61 01/19/19 08:00 40 01/19/19 08:00 97.5 75 18 112/47 (68) 99 01/19/19 08:00 Mechanical Ventilator 01/19/19 06:44 67 18 40 01/19/19 05:01 71 18 40 01/19/19 04:00 Mechanical Ventilator 01/19/19 04:00 40 01/19/19 04:00 97.7 70 18 110/70 (83) 96 01/19/19 03:31 66 01/19/19 02:46 82 18 40 01/19/19 01:06 68 18 40 01/19/19 00:00 Mechanical Ventilator 01/19/19 00:00 98.1 70 18 101/50 (67) 100 01/18/19 23:26 70 01/18/19 22:40 70 18 40 01/18/19 20:43 69 18 40 01/18/19 20:00 Mechanical Ventilator 01/18/19 20:00 40 01/18/19 20:00 97.9 67 18 100/50 (67) 100 01/18/19 19:21 66 01/18/19 18:58 77 18 40 01/18/19 16:52 60 18 40 01/18/19 16:00 97.5 68 17 121/62 (81) 95 01/18/19 16:00 77 01/18/19 16:00 Mechanical Ventilator 01/18/19 14:58 68 18 40 General Appearance: on vent, patient on isolation Cardiovascular: normal rate Respiratory/Chest: rhonchi - bilaterally Abdomen: normal bowel sounds, non tender, soft Extremities: no swelling Intake and Output 01/18/19 01/19/19 18:59 06:59 Intake Total 50 ml 290 ml Output Total 250 ml Balance 50 ml 40 ml Intake Free Water 150 ml Tube Feeding 50 ml 140 ml Output Urine Total 250 ml # Voids 2 # Bowel Movements 5 100 Laboratory Tests Test 01/19/19 04:00 White Blood Count 6.3 K/UL (4.8-10.8) Red Blood Count 3.79 M/UL (4.20-5.40) L Hemoglobin 13.0 G/DL (12.0-16.0) Hematocrit 38.2 % (37.0-47.0) Mean Corpuscular Volume 101 FL (80-99) H Mean Corpuscular Hemoglobin 34.3 PG (27.0-31.0) H Mean Corpuscular Hemoglobin Concent 34.0 G/DL (32.0-36.0) Red Cell Distribution Width 14.2 % (11.6-14.8) Platelet Count 142 K/UL (150-450) L Mean Platelet Volume 10.4 FL (6.5-10.1) H Neutrophils (%) (Auto) 67.1 % (45.0-75.0) Lymphocytes (%) (Auto) 18.8 % (20.0-45.0) L Monocytes (%) (Auto) 8.9 % (1.0-10.0) Eosinophils (%) (Auto) 4.1 % (0.0-3.0) H Basophils (%) (Auto) 1.0 % (0.0-2.0) Sodium Level 141 MMOL/L (136-145) Potassium Level 2.9 MMOL/L (3.5-5.1) L Chloride Level 105 MMOL/L (98-107) Carbon Dioxide Level 30 MMOL/L (21-32) Anion Gap 7 mmol/L (5-15) Blood Urea Nitrogen 12 mg/dL (7-18) Creatinine 0.5 MG/DL (0.55-1.30) L Estimat Glomerular Filtration Rate mL/min (>60) Glucose Level 99 MG/DL (74-106) Calcium Level 9.4 MG/DL (8.5-10.1) Magnesium Level 2.1 MG/DL (1.8-2.4) Microbiology Date/Time Source Procedure Growth Status 01/17/19 14:35 Sputum Gram Stain - Final Resulted 01/17/19 14:35 Sputum Culture - Preliminary Gram Negative Bacillus 1 Gram Negative Bacillus 2 Gram Negative Bacillus 3 Streptococcus Group G Resulted 01/17/19 14:05 Nasal Nares MRSA Culture - Final NO METHICILLIN RESISTANT STAPH AUREUS... Complete 01/17/19 14:05 Rectum VRE Culture - Final NO VANCOMYCIN RESISTANT ENTEROCOCCUS ... Complete 01/17/19 14:05 Rectum - Final NO CARBAPENEM-RESISTANT ENTEROBACTERI... Complete Mathew Minor MD January 19, 2019 13:38
--- NOTE | 2019-01-19 14:16 | NUR ---
PT Note PT eval completed. Patient is at baseline level of function. No F/U PT treatments recommended at this time.
[2019-01-19 16:00] VITALS: BP 100/52
--- NOTE | 2019-01-19 17:34 | NUR ---
CASE MANAGEMENT: REVIEW SI: G-TUBE MALFUNCTION . G-TUBE SITE CELLULITIS . ABD WALL CELLULITIS T 97.5 HR 54 RR 18 BP 99/46 SAT 98% MECH VENT FIO2 40 K+ 2.9 CR 0.5 IS: KEFLEX GT Q6HR LETROZOLE PO QD G-TUBE FEEDING RESUMED STEP DOWN UNIT STATUS DCP: PATIENT IS FROM [facility]
--- NOTE | 2019-01-19 18:27 | NUR ---
NURSE NOTES: post void residual was done, resulted to 241. will endorse accordingly.
--- NOTE | 2019-01-19 19:05 | NUR ---
NURSE NOTES: Received report from Gogo Walker RN. Patient is awake in bed, A/O x1, non-verbal. Sinus rhythm on soda maker. No s/s of acute distress noted at this time. Saturating well on trach-vent settings: Portex 8, AC 18, vT 600, FiO2 40%, PEEP 5. Rectal tube in place and draining. Purewick catheter in place and suctioning well. Left finger 22g IV TKO, intact and patent. Bed locked in lowest position with padded side rails up x3. Call light left within reach. Will continue to monitor.
--- NOTE | 2019-01-19 19:17 | NUR ---
HAND-OFF: Report given to viky farrell.
[2019-01-19 20:00] VITALS: BP 95/56
[2019-01-19] MEDS: Miralax 17gm pkt GT SCH (20:46)
--- NOTE | 2019-01-19 21:13 | General Progress Note ---
Assessment/Plan Problem List: (1) Hypothyroidism ICD Codes: E03.9 - Hypothyroidism, unspecified SNOMED: 19498587 (2) HTN (hypertension) ICD Codes: I10 - Essential (primary) hypertension SNOMED: 57675764 (3) Seizure disorder ICD Codes: G40.909 - Epilepsy, unspecified, not intractable, without status epilepticus SNOMED: 326889393 (4) Chronic respiratory failure ICD Codes: J96.10 - Chronic respiratory failure, unspecified whether with hypoxia or hypercapnia SNOMED: 04479501 (5) Functional paraplegia Status: unchanged Assessment/Plan: vitals stable resp insuff htn hypothroid reviewed chart and labs Subjective ROS Limited/Unobtainable: Yes Allergies: Coded Allergies: PEANUT (Verified Allergy, Unknown, 09/22/16) Objective Last 24 Hour Vital Signs Date Time Temp Pulse Resp B/P (MAP) Pulse Ox O2 Delivery O2 Flow Rate FiO2 01/19/19 19:04 71 18 40 01/19/19 17:25 76 18 40 01/19/19 16:00 40 01/19/19 16:00 69 01/19/19 16:00 Mechanical Ventilator 01/19/19 16:00 98.5 70 18 100/52 (68) 99 01/19/19 15:15 65 18 40 01/19/19 12:55 65 18 40 01/19/19 12:00 54 01/19/19 12:00 Mechanical Ventilator 01/19/19 12:00 97.5 56 18 99/46 (63) 98 01/19/19 12:00 40 01/19/19 10:58 67 18 40 01/19/19 09:10 76 18 40 01/19/19 08:00 61 01/19/19 08:00 40 01/19/19 08:00 97.5 75 18 112/47 (68) 99 01/19/19 08:00 Mechanical Ventilator 01/19/19 06:44 67 18 40 01/19/19 05:01 71 18 40 01/19/19 04:00 Mechanical Ventilator 01/19/19 04:00 40 01/19/19 04:00 97.7 70 18 110/70 (83) 96 01/19/19 03:31 66 01/19/19 02:46 82 18 40 01/19/19 01:06 68 18 40 01/19/19 00:00 Mechanical Ventilator 01/19/19 00:00 98.1 70 18 101/50 (67) 100 01/18/19 23:26 70 01/18/19 22:40 70 18 40 Intake and Output 01/18/19 01/19/19 19:00 07:00 Intake Total 60 ml 280 ml Output Total 250 ml Balance 60 ml 30 ml Intake Free Water 150 ml Tube Feeding 60 ml 130 ml Output Urine Total 250 ml # Voids 2 # Bowel Movements 5 100 Laboratory Tests 01/19/19 04:00: White Blood Count 6.3, Red Blood Count 3.79L, Hemoglobin 13.0, Hematocrit 38.2, Mean Corpuscular Volume 101H, Mean Corpuscular Hemoglobin 34.3H, Mean Corpuscular Hemoglobin Concent 34.0, Red Cell Distribution Width 14.2, Platelet Count 142L, Mean Platelet Volume 10.4H, Neutrophils (%) (Auto) 67.1, Lymphocytes (%) (Auto) 18.8L, Monocytes (%) (Auto) 8.9, Eosinophils (%) (Auto) 4.1H, Basophils (%) (Auto) 1.0, Sodium Level 141, Potassium Level 2.9L, Chloride Level 105, Carbon Dioxide Level 30, Anion Gap 7, Blood Urea Nitrogen 12 , Creatinine 0.5L, Estimat Glomerular Filtration Rate , Glucose Level 99, Calcium Level 9.4, Magnesium Level 2.1 Height (Feet): 5 Height (Inches): 4.00 Weight (Pounds): 224 Neck: supple Cardiovascular: normal rate Respiratory/Chest: lungs clear Abdomen: soft Wanda Murphy MD January 19, 2019 21:13
[2019-01-20] VITALS: BP 93/55
--- NOTE | 2019-01-20 00:15 | Consultation ---
DATE OF CONSULTATION: 01/18/2019 CARDIOLOGY CONSULTATION CONSULTING PHYSICIAN: Mathew Minor M.D. REFERRING PHYSICIAN: Juaquin Ramos D.O. REASON FOR REFERRAL: Arrhythmia. HISTORY OF PRESENT ILLNESS: This is a very elderly female, who is not able to provide any meaningful history whatsoever. The patient's information is obtained from review of the patient's chart. The patient was admitted to the hospital on 01/17/2019 basically with a concern about possibility of an infection due to erythema around the G-tube site and was admitted to the hospital as she was noted some bouts of AV block and bradycardia and this consultation has been requested. She is not able to provide any meaningful history whatsoever. She has a history of several medical problems that would be listed previously. She was discharged from this facility back in October of 2018. She carried the diagnosis of sepsis with acute on chronic respiratory failure, dysphagia requiring feeding tube, functional paraplegia, anoxic encephalopathy, seizures, hypertension, and congestive heart failure. She does have a history of hypertension, chronic obstructive pulmonary disease, previous CVA, and respiratory failure. ALLERGIES: She is not allergic to any medications. SOCIAL HISTORY: Not smoking or drinking at the present time. She is a resident of convalescent facility. On a ventilator therapy chronically. PHYSICAL EXAMINATION: GENERAL: Shows to be morbidly obese elderly female, in no respiratory distress. NECK: Supple. No jugular venous distention. LUNGS: Rhonchi noted anteriorly. CARDIAC: Regular rhythm. No heaves or thrills. ABDOMEN: Soft and obese. Positive bowel sounds. Nontender. EXTREMITIES: There is no significant edema. LABORATORY DATA: Laboratory values shows white count of 6.7, hemoglobin 13.1, and platelet count of 150,000. Her chemistry panel, sodium 139, potassium 3, chloride 103, bicarb 30, BUN of 14, creatinine 0.6, and glucose of 100. Calcium is 9.6. Albumin of 2.5. Her lipase is 71 previously. Her tests also showed that she had a CT scan of the abdomen and pelvis that showed moderate retention of feces in the colon, liquified stool, sign of diarrhea, gastrostomy tube, and small umbilical hernia containing fat, disease, hypertensive kidney maybe cyst, aspiration of the cystic liver, and nonspecific bibasilar atelectasis. Her electrocardiogram showed sinus rhythm with right bundle-branch conduction defect. It appears to be AV block being noted. ASSESSMENT: 1. Possible G-tube infection. 2. Diarrhea. 3. Fecal impaction. 4. Chronic ventilator therapy. 5. History of heart failure related to diastolic dysfunction. 6. History of CVA. PLAN: Dr. Ramos, this patient was seen in cardiac consultation. The patient appears to be doing relatively well at this time from a cardiac point of view. The patient's vital signs seems to be stable and her blood pressure had ranged between 100/50 to 121/60 with temperature 97.2 and heart rate in the 60s. I will repeat the EKG. An echocardiogram will be ordered and cardiac enzymes will be repeated. We will monitor the patient on telemetry for the time being. However, I doubt that she would require any therapy acutely at this point. Mathew Minor M.D. DR: EDWARD JOB#: [id number] CC:
[2019-01-20 04:00] VITALS: BP 108/54
[2019-01-20 04:33] LABS: BASOPHILS % (AUTO) 0.7 % (0.0-2.0); EOSINOPHILS % (AUTO) 3.6 % (0.0-3.0); HEMATOCRIT 37.8 % (37.0-47.0); HEMOGLOBIN 12.9 G/DL (12.0-16.0); LYMPHOCYTES % (AUTO) 19.2 % (20.0-45.0); MEAN CORPUSCULAR VOLUME 101 FL (80-99); NEUTROPHILS % (AUTO) 67.5 % (45.0-75.0); PLATELET COUNT 170 K/UL (150-450); RED BLOOD COUNT 3.73 M/UL (4.20-5.40); RED CELL DISTRIBUTION WIDTH 14.2 % (11.6-14.8); WHITE BLOOD COUNT 7.2 K/UL (4.8-10.8)
[2019-01-20 05:20] LABS: ANION GAP 6 mmol/L (5-15); BLOOD UREA NITROGEN 12 mg/dL (7-18); CALCIUM 9.7 MG/DL (8.5-10.1); CARBON DIOXIDE 28 MMOL/L (21-32); CHLORIDE 108 MMOL/L (98-107); CREATININE 0.6 MG/DL (0.55-1.30); POTASSIUM 3.5 MMOL/L (3.5-5.1); SODIUM 142 MMOL/L (136-145)
[2019-01-20] MEDS: NovoLOG Insulin Flexpen SUBQ SCH ×5 (06:00→23:54)
[2019-01-20] MEDS: Cephalexin 500mg cap GT SCH ×4 (06:00→23:54)
--- NOTE | 2019-01-20 06:00 | NUR ---
NURSE NOTES: Left message for PING Grossman, regarding patient found with GT out of site. Newman inserted into site to keep stoma patent. Awaiting response.
--- NOTE | 2019-01-20 07:15 | NUR ---
HAND-OFF: Report given to Jayne Ferrer RN.
--- NOTE | 2019-01-20 07:20 | NUR ---
RNNURSE NOTES: Report received from Nataliia Ballesteros RN Pt resting in bed awake,noted no resp distress with trach to vent ,on current settings ,tolerating well,no signs of pain or discomfort,SR on the monitor,GT pulled out,night RN inserted a Newman cath,with Pure wick draining minimal amount of dark tea colored urine,Rectal tube in placed,IV site to LT forefinger intact,skin warm and dry,SR up x2 HOB elevated,bed lock in lowest position will continue with plans of care.
[2019-01-20 08:00] VITALS: BP 100/55
[2019-01-20] MEDS: Heparin 5000 units/ml inj SUBQ SCH ×2 (08:25→21:10)
[2019-01-20] MEDS: levETIRAcetam 500mg/5ml Liquid GT SCH ×2 (08:25→18:00)
--- NOTE | 2019-01-20 08:46 | Pulmonology Progress Note ---
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- type1 RBBB conduction disorder PLAN OF CARE DIANA Vent support, trach care Pulmonary toilet baseline ABG noted this am, continue with current settings for now and optimize further as needed sputum cx + Pseudomonas, 2 dif species GNR, + Strep group G -possibly contamination, given no fevers, no resp distress, no leukocytosis follow-up with chest x-ray DVT prophylaxis cardio eval appreciated ECHO, ECG, repeat troponin avoid negative chronotropic G-tube site care antibiotics changed to oral as per ID recommendation CT of the abdomen pelvis noted: moderate retention of feces within the colon with a liquefied stool, sign of diarrhea. Gastrostomy tube with the tip projected over the region of the pylorus. Basilar atelectasis GI follows bowel regimen, PPI, rectal tube for decompression strict aspiration precaution G-tube feeding 01/20 K stable after replacement Mg -stable 01/19, monitor electrolytes further and correct as needed blood sugar management with sliding scale insulin, HgA1c - 5.0 BP stable w/out any anti-HTN for now, monitor TSH elevated, increase Synthroid dose seizure precaution supportive care case discussed and evaluated by supervising physician Subjective Allergies: Coded Allergies: PEANUT (Verified Allergy, Unknown, 09/22/16) Subjective no signs of resp distress on current settings, afebrile, no leukocytosis K stabilized after replacement Objective Last 24 Hour Vital Signs Date Time Temp Pulse Resp B/P (MAP) Pulse Ox O2 Delivery O2 Flow Rate FiO2 01/20/19 07:20 74 18 40 01/20/19 05:02 73 18 40 01/20/19 04:00 97.9 82 19 108/54 (72) 99 01/20/19 04:00 Mechanical Ventilator 01/20/19 04:00 85 01/20/19 04:00 40 01/20/19 02:45 80 18 40 01/20/19 01:15 89 18 40 01/20/19 00:00 Mechanical Ventilator 01/20/19 00:00 98.1 82 18 93/55 (68) 96 01/19/19 23:36 67 01/19/19 22:58 88 18 40 01/19/19 21:30 74 18 40 01/19/19 20:00 40 01/19/19 20:00 Mechanical Ventilator 01/19/19 20:00 98.2 69 18 95/56 (69) 98 01/19/19 19:25 48 01/19/19 19:04 71 18 40 01/19/19 17:25 76 18 40 01/19/19 16:00 40 01/19/19 16:00 69 01/19/19 16:00 Mechanical Ventilator 01/19/19 16:00 98.5 70 18 100/52 (68) 99 01/19/19 15:15 65 18 40 01/19/19 12:55 65 18 40 01/19/19 12:00 54 01/19/19 12:00 Mechanical Ventilator 01/19/19 12:00 97.5 56 18 99/46 (63) 98 01/19/19 12:00 40 01/19/19 10:58 67 18 40 01/19/19 09:10 76 18 40 Intake and Output 01/19/19 01/20/19 19:00 07:00 Intake Total 764 ml 618 ml Output Total 150 ml 180 ml Balance 614 ml 438 ml Intake Free Water 150 ml 60 ml Tube Feeding 614 ml 558 ml Output Urine Total 150 ml Stool Total 150 ml 30 ml # Voids 4 # Bowel Movements 1 Objective General Appearance: no acute distress, bedridden, chronically ill looking , ventilator dependent AA female HEENT: normocephalic, status post trach - Portex#8, secretions small, white and thin Respiratory/Chest: normal breath sounds, no respiratory distress, other - Vent AC 600-18-40% Cardiovascular: normal rate, RBBB, Mobitz type1 Abdomen: normal bowel sounds, soft, non tender , + distention , rectal tube Neurologic/Psychiatric: abnormal gait, awake, non-responsive Musculoskeletal: atrophy - BLE Microbiology Date/Time Source Procedure Growth Status 01/17/19 14:35 Sputum Gram Stain - Final Resulted 01/17/19 14:35 Sputum Culture - Preliminary Pseudomonas Aeruginosa Gram Negative Bacillus 2 Gram Negative Bacillus 3 Streptococcus Group G Resulted 01/17/19 14:05 Nasal Nares MRSA Culture - Final NO METHICILLIN RESISTANT STAPH AUREUS... Complete 01/17/19 14:05 Rectum VRE Culture - Final NO VANCOMYCIN RESISTANT ENTEROCOCCUS ... Complete 01/17/19 14:05 Rectum - Final NO CARBAPENEM-RESISTANT ENTEROBACTERI... Complete Laboratory Tests 01/20/19 03:50: White Blood Count 7.2, Red Blood Count 3.73L, Hemoglobin 12.9, Hematocrit 37.8, Mean Corpuscular Volume 101H, Mean Corpuscular Hemoglobin 34.4H, Mean Corpuscular Hemoglobin Concent 34.0, Red Cell Distribution Width 14.2, Platelet Count 170, Mean Platelet Volume 9.9, Neutrophils (%) (Auto) 67.5, Lymphocytes (% ) (Auto) 19.2L, Monocytes (%) (Auto) 9.0, Eosinophils (%) (Auto) 3.6H, Basophils (%) (Auto) 0.7, Sodium Level 142, Potassium Level 3.5, Chloride Level 108H, Carbon Dioxide Level 28, Anion Gap 6, Blood Urea Nitrogen 12, Creatinine 0.6, Estimat Glomerular Filtration Rate , Glucose Level 115H, Calcium Level 9.7 , Pro-B-Type Natriuretic Peptide 274H, Thyroid Stimulating Hormone (TSH) 7.573H 01/20/19 07:05: Arterial Blood pH 7.491H, Arterial Blood Partial Pressure CO2 34.5L, Arterial Blood Partial Pressure O2 108.8H, Arterial Blood HCO3 25.8, Arterial Blood Oxygen Saturation 97.9, Arterial Blood Base Excess 2.7H, Best Test Positive Current Medications Medications (Trade) Dose Ordered Sig/Boubacar Route PRN Reason Start Time Stop Time Status Last Admin Dose Admin Acetaminophen (Tylenol) 650 mg Q4H PRN ORAL fever 01/17/19 14:46 02/16/19 14:45 Albuterol/ Ipratropium (Albuterol/ Ipratropium) 3 ml Q4H PRN HHN Shortness of Breath 01/17/19 14:48 01/22/19 14:47 Cephalexin (Keflex) 500 mg Q6HR GT 01/19/19 12:00 01/26/19 05:59 01/19/19 23:59 Dextrose (Dextrose 50%) 25 ml Q30M PRN IV Hypoglycemia 01/18/19 11:00 02/17/19 10:59 Dextrose (Dextrose 50%) 50 ml Q30M PRN IV Hypoglycemia 01/18/19 11:00 02/17/19 10:59 Heparin Sodium (Porcine) (Heparin 5000 units/ml) 5,000 units EVERY 12 HOURS SUBQ 01/17/19 21:00 02/16/19 20:59 01/20/19 08:25 Insulin Aspart (NovoLOG) Q6HR SUBQ 01/18/19 12:00 02/17/19 11:59 01/20/19 00:00 Letrozole (Femara) 2.5 mg DAILY ORAL 01/19/19 09:00 01/23/19 08:59 01/19/19 08:10 Levetiracetam (Keppra) 1,500 mg BID GT 01/17/19 18:00 02/16/19 17:59 01/19/19 17:25 Levothyroxine Sodium (Synthroid) 75 mcg DAILY@0630 GT 01/18/19 06:30 02/17/19 06:29 01/19/19 05:54 Nitroglycerin (Ntg) 0.4 mg Q5M PRN SL Prn Chest Pain 01/17/19 14:47 02/16/19 14:46 Ondansetron HCl (Zofran) 4 mg Q6H PRN IVP Nausea & Vomiting 01/17/19 14:48 02/16/19 14:47 Polyethylene Glycol (Miralax) 17 gm BEDTIME GT 01/18/19 21:00 02/17/19 20:59 01/19/19 20:46 Polyethylene Glycol (Miralax) 17 gm DAILYPRN PRN ORAL Constipation 01/17/19 14:46 02/16/19 14:45 Promethazine HCl/ Codeine (Phenergan with Codeine) 5 ml Q4H PRN ORAL For Cough 01/17/19 14:47 02/16/19 14:46 Temazepam (Restoril) 15 mg HSPRN PRN ORAL Insomnia 01/17/19 21:00 01/24/19 20:59 Libby Collins NP January 20, 2019 08:46
--- NOTE | 2019-01-20 08:52 | General Progress Note ---
Assessment/Plan Problem List: (1) Status post tracheostomy ICD Codes: Z93.0 - Tracheostomy status SNOMED: 81253021, 352121312 (2) G-tube site cellulitis ICD Codes: K94.22 - Gastrostomy infection; L03.319 - Cellulitis of trunk, unspecified SNOMED: 986156369, 942564286 (3) Malfunction of gastrostomy tube ICD Codes: K94.23 - Gastrostomy malfunction SNOMED: 386237546 (4) HTN (hypertension) ICD Codes: I10 - Essential (primary) hypertension SNOMED: 80976740 (5) Seizure disorder ICD Codes: G40.909 - Epilepsy, unspecified, not intractable, without status epilepticus SNOMED: 945704812 (6) Hypothyroidism ICD Codes: E03.9 - Hypothyroidism, unspecified SNOMED: 95299052 (7) Feeding by G-tube ICD Codes: Z93.1 - Gastrostomy status SNOMED: 253631843, 109140234 Status: unchanged Assessment/Plan: GT has been fixed GTF running dc planning Subjective ROS Limited/Unobtainable: No Allergies: Coded Allergies: PEANUT (Verified Allergy, Unknown, 09/22/16) Objective Last 24 Hour Vital Signs Date Time Temp Pulse Resp B/P (MAP) Pulse Ox O2 Delivery O2 Flow Rate FiO2 01/20/19 07:20 74 18 40 01/20/19 05:02 73 18 40 01/20/19 04:00 97.9 82 19 108/54 (72) 99 01/20/19 04:00 Mechanical Ventilator 01/20/19 04:00 85 01/20/19 04:00 40 01/20/19 02:45 80 18 40 01/20/19 01:15 89 18 40 01/20/19 00:00 Mechanical Ventilator 01/20/19 00:00 98.1 82 18 93/55 (68) 96 01/19/19 23:36 67 01/19/19 22:58 88 18 40 01/19/19 21:30 74 18 40 01/19/19 20:00 40 01/19/19 20:00 Mechanical Ventilator 01/19/19 20:00 98.2 69 18 95/56 (69) 98 01/19/19 19:25 48 01/19/19 19:04 71 18 40 01/19/19 17:25 76 18 40 01/19/19 16:00 40 01/19/19 16:00 69 01/19/19 16:00 Mechanical Ventilator 01/19/19 16:00 98.5 70 18 100/52 (68) 99 01/19/19 15:15 65 18 40 01/19/19 12:55 65 18 40 01/19/19 12:00 54 01/19/19 12:00 Mechanical Ventilator 01/19/19 12:00 97.5 56 18 99/46 (63) 98 01/19/19 12:00 40 01/19/19 10:58 67 18 40 01/19/19 09:10 76 18 40 Intake and Output 01/19/19 01/20/19 19:00 07:00 Intake Total 764 ml 618 ml Output Total 150 ml 180 ml Balance 614 ml 438 ml Intake Free Water 150 ml 60 ml Tube Feeding 614 ml 558 ml Output Urine Total 150 ml Stool Total 150 ml 30 ml # Voids 4 # Bowel Movements 1 Laboratory Tests 01/20/19 03:50: White Blood Count 7.2, Red Blood Count 3.73L, Hemoglobin 12.9, Hematocrit 37.8, Mean Corpuscular Volume 101H, Mean Corpuscular Hemoglobin 34.4H, Mean Corpuscular Hemoglobin Concent 34.0, Red Cell Distribution Width 14.2, Platelet Count 170, Mean Platelet Volume 9.9, Neutrophils (%) (Auto) 67.5, Lymphocytes (% ) (Auto) 19.2L, Monocytes (%) (Auto) 9.0, Eosinophils (%) (Auto) 3.6H, Basophils (%) (Auto) 0.7, Sodium Level 142, Potassium Level 3.5, Chloride Level 108H, Carbon Dioxide Level 28, Anion Gap 6, Blood Urea Nitrogen 12, Creatinine 0.6, Estimat Glomerular Filtration Rate , Glucose Level 115H, Calcium Level 9.7 , Pro-B-Type Natriuretic Peptide 274H, Thyroid Stimulating Hormone (TSH) 7.573H 01/20/19 07:05: Arterial Blood pH 7.491H, Arterial Blood Partial Pressure CO2 34.5L, Arterial Blood Partial Pressure O2 108.8H, Arterial Blood HCO3 25.8, Arterial Blood Oxygen Saturation 97.9, Arterial Blood Base Excess 2.7H, Best Test Positive Height (Feet): 5 Height (Inches): 4.00 Weight (Pounds): 224 General Appearance: no apparent distress EENT: normal ENT inspection Neck: supple Cardiovascular: normal rate Respiratory/Chest: decreased breath sounds Abdomen: normal bowel sounds, non tender, soft Extremities: non-tender Wilmer Cardenas MD January 20, 2019 08:52
--- NOTE | 2019-01-20 10:00 | NUR ---
NURSE NOTES: Oral/tracheal secretions suctioned PRN.
--- NOTE | 2019-01-20 11:37 | Cardiology Progress Note ---
Assessment/Plan Assessment/Plan avb mobitz 1 chronic respiratory failure hs of diastolic dysfunction rbbb conduction do tele personally reviewed avodi neg chronotropic agents for now ekgf personally reviewed echo pending no sig pauses noted Subjective ROS Limited/Unobtainable: Yes Objective Last 24 Hour Vital Signs Date Time Temp Pulse Resp B/P (MAP) Pulse Ox O2 Delivery O2 Flow Rate FiO2 01/20/19 10:57 62 18 40 01/20/19 08:56 72 18 40 01/20/19 08:00 69 01/20/19 07:20 74 18 40 01/20/19 05:02 73 18 40 01/20/19 04:00 97.9 82 19 108/54 (72) 99 01/20/19 04:00 Mechanical Ventilator 01/20/19 04:00 85 01/20/19 04:00 40 01/20/19 02:45 80 18 40 01/20/19 01:15 89 18 40 01/20/19 00:00 Mechanical Ventilator 01/20/19 00:00 98.1 82 18 93/55 (68) 96 01/19/19 23:36 67 01/19/19 22:58 88 18 40 01/19/19 21:30 74 18 40 01/19/19 20:00 40 01/19/19 20:00 Mechanical Ventilator 01/19/19 20:00 98.2 69 18 95/56 (69) 98 01/19/19 19:25 48 01/19/19 19:04 71 18 40 01/19/19 17:25 76 18 40 01/19/19 16:00 40 01/19/19 16:00 69 01/19/19 16:00 Mechanical Ventilator 01/19/19 16:00 98.5 70 18 100/52 (68) 99 01/19/19 15:15 65 18 40 01/19/19 12:55 65 18 40 01/19/19 12:00 54 01/19/19 12:00 Mechanical Ventilator 01/19/19 12:00 97.5 56 18 99/46 (63) 98 01/19/19 12:00 40 General Appearance: on vent, patient on isolation Intake and Output 01/19/19 01/20/19 19:00 07:00 Intake Total 764 ml 618 ml Output Total 150 ml 180 ml Balance 614 ml 438 ml Intake Free Water 150 ml 60 ml Tube Feeding 614 ml 558 ml Output Urine Total 150 ml Stool Total 150 ml 30 ml # Voids 4 # Bowel Movements 1 Laboratory Tests Test 01/20/19 03:50 01/20/19 07:05 White Blood Count 7.2 K/UL (4.8-10.8) Red Blood Count 3.73 M/UL (4.20-5.40) L Hemoglobin 12.9 G/DL (12.0-16.0) Hematocrit 37.8 % (37.0-47.0) Mean Corpuscular Volume 101 FL (80-99) H Mean Corpuscular Hemoglobin 34.4 PG (27.0-31.0) H Mean Corpuscular Hemoglobin Concent 34.0 G/DL (32.0-36.0) Red Cell Distribution Width 14.2 % (11.6-14.8) Platelet Count 170 K/UL (150-450) Mean Platelet Volume 9.9 FL (6.5-10.1) Neutrophils (%) (Auto) 67.5 % (45.0-75.0) Lymphocytes (%) (Auto) 19.2 % (20.0-45.0) L Monocytes (%) (Auto) 9.0 % (1.0-10.0) Eosinophils (%) (Auto) 3.6 % (0.0-3.0) H Basophils (%) (Auto) 0.7 % (0.0-2.0) Sodium Level 142 MMOL/L (136-145) Potassium Level 3.5 MMOL/L (3.5-5.1) Chloride Level 108 MMOL/L (98-107) H Carbon Dioxide Level 28 MMOL/L (21-32) Anion Gap 6 mmol/L (5-15) Blood Urea Nitrogen 12 mg/dL (7-18) Creatinine 0.6 MG/DL (0.55-1.30) Estimat Glomerular Filtration Rate mL/min (>60) Glucose Level 115 MG/DL (74-106) H Calcium Level 9.7 MG/DL (8.5-10.1) Pro-B-Type Natriuretic Peptide 274 pg/mL (0-125) H Thyroid Stimulating Hormone (TSH) 7.573 uiU/mL (0.358-3.740) Arterial Blood pH 7.491 (7.350-7.450) Arterial Blood Partial Pressure CO2 34.5 mmHg (35.0-45.0) L Arterial Blood Partial Pressure O2 108.8 mmHg (75.0-100.0) H Arterial Blood HCO3 25.8 mmol/L (22.0-26.0) Arterial Blood Oxygen Saturation 97.9 % (95-100) Arterial Blood Base Excess 2.7 (-2-2) H Best Test Positive Microbiology Date/Time Source Procedure Growth Status 01/17/19 14:35 Sputum Gram Stain - Final Resulted 01/17/19 14:35 Sputum Culture - Preliminary Pseudomonas Aeruginosa Gram Negative Bacillus 2 Gram Negative Bacillus 3 Streptococcus Group G Resulted 01/17/19 14:05 Nasal Nares MRSA Culture - Final NO METHICILLIN RESISTANT STAPH AUREUS... Complete 01/17/19 14:05 Rectum VRE Culture - Final NO VANCOMYCIN RESISTANT ENTEROCOCCUS ... Complete 01/17/19 14:05 Rectum - Final NO CARBAPENEM-RESISTANT ENTEROBACTERI... Complete Mathew Minor MD January 20, 2019 11:37
[2019-01-20 12:00] VITALS: BP 119/55
--- NOTE | 2019-01-20 12:20 | Diagnostic Imaging Report ---
Indication: Dyspnea Comparison: 10/10/2018 A single view chest radiograph was obtained. Findings: Vascular congestion with prominent vascularity and interstitial opacities again demonstrated unchanged. Heart size is mildly enlarged but stable. Tracheostomy noted. IMPRESSION: Suspected pulmonary vascular congestion/interstitial edema. Correlate clinically. No change compared to the prior study
--- NOTE | 2019-01-20 13:00 | NUR ---
NURSE NOTES: Dr Hernandez at bedside,updated re Pt's low urine output during the night,he ordered to insert Newman cath, order done and carried out.Inserted a FR 16 Newman cath .
--- NOTE | 2019-01-20 13:11 | Consultation ---
Consult Note Consult Note asked to eval for Oliguria patient pulled out her GT on Exam; No gould GT out on Vent data reviewed non historian discussed with RN . Assessment/Plan Chronic ventilator dependent respiratory failure with tracheostomy status G-tube malfunction with mild cellulitis Colon distention Dysphagia, feeding by G tube COPD Hypertension History of [place]/STEMI Diabetes mellitus Anemic encephalopathy History of CVA Seizure disorder Electrolyte abnormality Hypothyroidism with elevated TSH Hypokalemia Hx of CHF with diastolic dysfunction 2nd degree AVB / Mobitz- type1 RBBB conduction disorder Plan monitor renal parameters start IV fluid until GT route is maintained for feeding Guero Hernandez MD January 20, 2019 13:11
[2019-01-20] MEDS: D5NS 1,000 ML IV SCH (13:14)
[2019-01-20] MEDS ORDERED: Acetaminophen 650mg/20.3ml GT PRN (14:00)
--- NOTE | 2019-01-20 15:47 | NUR ---
NURSE NOTES: Called Denisse Pearce [employer]FORE [employer] not answering calls,informed re pt's with no GT access and medic per GT not given,said will do it in am.
[2019-01-20 16:00] VITALS: BP 110/53
--- NOTE | 2019-01-20 16:33 | NUR ---
CASE MANAGEMENT: REVIEW SI: G-TUBE MALFUNCTION . G-TUBE SITE CELLULITIS . ABD WALL CELLULITIS T 98.1 HR 68 RR 18 BP 110/53 SAT 96% MECH VENT FIO2 40 BNP 274 IS: KEFLEX GT Q6HR LETROZOLE PO QD G-TUBE FEEDING RESUMED STEP DOWN UNIT STATUS DCP: PATIENT IS FROM [facility]
--- NOTE | 2019-01-20 17:00 | NUR ---
NURSE NOTES: Bed bath given,kept dry and clean,turned and repositioned.
--- NOTE | 2019-01-20 17:11 | Surgery Progress Note ---
Surgery Progress Note Subjective Additional Comments no acute events. labs noted g tube in place and functional Objective Last 24 Hour Vital Signs Date Time Temp Pulse Resp B/P (MAP) Pulse Ox O2 Delivery O2 Flow Rate FiO2 01/20/19 16:15 40 01/20/19 16:00 98.1 68 18 110/53 (72) 96 01/20/19 16:00 Mechanical Ventilator 01/20/19 15:10 80 18 40 01/20/19 13:19 68 20 40 01/20/19 12:00 98.1 63 21 119/55 (76) 97 01/20/19 12:00 Mechanical Ventilator 01/20/19 12:00 61 01/20/19 12:00 40 01/20/19 10:57 62 18 40 01/20/19 08:56 72 18 40 01/20/19 08:00 40 01/20/19 08:00 98.0 63 21 100/55 (70) 97 01/20/19 08:00 Mechanical Ventilator 01/20/19 08:00 69 01/20/19 07:20 74 18 40 01/20/19 05:02 73 18 40 01/20/19 04:00 97.9 82 19 108/54 (72) 99 01/20/19 04:00 Mechanical Ventilator 01/20/19 04:00 85 01/20/19 04:00 40 01/20/19 02:45 80 18 40 01/20/19 01:15 89 18 40 01/20/19 00:00 Mechanical Ventilator 01/20/19 00:00 98.1 82 18 93/55 (68) 96 01/19/19 23:36 67 01/19/19 22:58 88 18 40 01/19/19 21:30 74 18 40 01/19/19 20:00 40 01/19/19 20:00 Mechanical Ventilator 01/19/19 20:00 98.2 69 18 95/56 (69) 98 01/19/19 19:25 48 01/19/19 19:04 71 18 40 01/19/19 17:25 76 18 40 I&O Intake and Output 01/19/19 01/20/19 18:59 06:59 Intake Total 702 ml 680 ml Output Total 150 ml 180 ml Balance 552 ml 500 ml Intake Free Water 150 ml 60 ml Tube Feeding 552 ml 620 ml Output Urine Total 150 ml Stool Total 150 ml 30 ml # Voids 4 # Bowel Movements 1 Dressing: saturated Wound: clean Drains: other Cardiovascular: RSR Respiratory: decreased breath sounds Abdomen: soft, non-tender, present bowel sounds, non-distended Extremities: no cyanosis Laboratory Tests Test 01/20/19 03:50 01/20/19 07:05 White Blood Count 7.2 K/UL (4.8-10.8) Red Blood Count 3.73 M/UL (4.20-5.40) L Hemoglobin 12.9 G/DL (12.0-16.0) Hematocrit 37.8 % (37.0-47.0) Mean Corpuscular Volume 101 FL (80-99) H Mean Corpuscular Hemoglobin 34.4 PG (27.0-31.0) H Mean Corpuscular Hemoglobin Concent 34.0 G/DL (32.0-36.0) Red Cell Distribution Width 14.2 % (11.6-14.8) Platelet Count 170 K/UL (150-450) Mean Platelet Volume 9.9 FL (6.5-10.1) Neutrophils (%) (Auto) 67.5 % (45.0-75.0) Lymphocytes (%) (Auto) 19.2 % (20.0-45.0) L Monocytes (%) (Auto) 9.0 % (1.0-10.0) Eosinophils (%) (Auto) 3.6 % (0.0-3.0) H Basophils (%) (Auto) 0.7 % (0.0-2.0) Sodium Level 142 MMOL/L (136-145) Potassium Level 3.5 MMOL/L (3.5-5.1) Chloride Level 108 MMOL/L (98-107) H Carbon Dioxide Level 28 MMOL/L (21-32) Anion Gap 6 mmol/L (5-15) Blood Urea Nitrogen 12 mg/dL (7-18) Creatinine 0.6 MG/DL (0.55-1.30) Estimat Glomerular Filtration Rate mL/min (>60) Glucose Level 115 MG/DL (74-106) H Calcium Level 9.7 MG/DL (8.5-10.1) Pro-B-Type Natriuretic Peptide 274 pg/mL (0-125) H Thyroid Stimulating Hormone (TSH) 7.573 uiU/mL (0.358-3.740) Arterial Blood pH 7.491 (7.350-7.450) Arterial Blood Partial Pressure CO2 34.5 mmHg (35.0-45.0) L Arterial Blood Partial Pressure O2 108.8 mmHg (75.0-100.0) H Arterial Blood HCO3 25.8 mmol/L (22.0-26.0) Arterial Blood Oxygen Saturation 97.9 % (95-100) Arterial Blood Base Excess 2.7 (-2-2) H Best Test Positive Plan Problems: (1) Abdominal wall cellulitis Assessment & Plan: Patient has developed abdominal wall cellulitis around G tube site g tube evaluated and dislodged with balloon in abdominal wall soft tissue g tube removed at bedside. balloon deflated. tube has good track but wide given dislodged with balloon inflated keep balloon deflated and tube in place. tube taped in place plan to suture tube in place tomorrow if continues to go well okay to use tube for now appreciate GI input (2) G-tube site cellulitis Assessment & Plan: as above (3) Colon distention Assessment & Plan: KUB: Gastrostomy noted. The tip is not well seen but there is contrast in the fundus of the stomach. The position of the gastrostomy is not adequately elucidated on this exam. Patient has a chronically and massively distended sigmoid colon. Previous CT showed no evidence of volvulus. There is nonvisualization of the lower part of the abdomen and pelvis which was not imaged. There is contrast within the left hemicolon and transverse colon. unsure what contrast in colon is from and how long it has been there recommend follow up CT ordered will follow with recs (4) Malfunction of gastrostomy tube Heath Martell January 20, 2019 17:10
--- NOTE | 2019-01-20 19:10 | NUR ---
HAND-OFF: Report given to Sid Gunn RN
--- NOTE | 2019-01-20 19:15 | NUR ---
NURSE NOTES: Received patient from Dori Ferrer RN. Patient is awake and neuro x1. Receiving oxygen via Portex 8 with settings AC 18, TV 600, FiO2 40%, and PEEP 5. Previous nurse endorsed that patient pulled out G-tube and in place of it is a Newman Catheter that is intact. Rectal Tube is intact and draining. IV site is Left Finger 22g receiving D5NS @75cc/hr. Bed is locked, placed in lowest position, side rails up x3, bed alarm on, call light within reach. Will continue to monitor.
[2019-01-20 20:00] VITALS: BP 112/53
--- NOTE | 2019-01-20 20:05 | NUR ---
RESPIRATORY NOTE: Received pt. on 840 vent. Vent settings are: A/C 18, Vt 600, FI02 40%, PEEP +5. No respiratory distress noted, pt. sP02 @ 99%. Ambu bag @ BS. Vent plugged on red outlet. Will continue to monitor pt.
--- NOTE | 2019-01-20 20:48 | NUR ---
RESPIRATORY NOTE: Patient received mechanically ventilated on PB 840 with current ordered vent settings. Patient has trach size 8.0 Portex cuffed that is secured with trach tie and guard. Patient appears comfortable at this time with no signs/symptoms of respiratory distress noted at this time. There is an ambu bag available at the bedside and the vent is connected to a red outlet. Vent alarms are functional and audible. Will continue to monitor.
[2019-01-20] MEDS: Miralax 17gm pkt GT SCH (21:00)
--- NOTE | 2019-01-20 21:34 | General Progress Note ---
Assessment/Plan Problem List: (1) Hypothyroidism ICD Codes: E03.9 - Hypothyroidism, unspecified SNOMED: 97830778 (2) HTN (hypertension) ICD Codes: I10 - Essential (primary) hypertension SNOMED: 77581952 (3) Seizure disorder ICD Codes: G40.909 - Epilepsy, unspecified, not intractable, without status epilepticus SNOMED: 986460945 (4) Chronic respiratory failure ICD Codes: J96.10 - Chronic respiratory failure, unspecified whether with hypoxia or hypercapnia SNOMED: 82432465 (5) Functional paraplegia Status: progressing, unchanged Assessment/Plan: paraplegia vitals stable no seizure resp insuff htn hypothroid reviewed chart and labs Subjective ROS Limited/Unobtainable: Yes Allergies: Coded Allergies: PEANUT (Verified Allergy, Unknown, 09/22/16) Objective Last 24 Hour Vital Signs Date Time Temp Pulse Resp B/P (MAP) Pulse Ox O2 Delivery O2 Flow Rate FiO2 01/20/19 20:43 73 18 40 01/20/19 20:03 70 18 40 01/20/19 20:00 40 01/20/19 20:00 Mechanical Ventilator 01/20/19 20:00 97.7 66 18 112/53 (72) 98 01/20/19 17:23 63 18 40 01/20/19 16:15 40 01/20/19 16:01 Mechanical Ventilator 01/20/19 16:00 63 01/20/19 16:00 98.1 68 18 110/53 (72) 96 01/20/19 15:10 80 18 40 01/20/19 13:19 68 20 40 01/20/19 12:00 98.1 63 21 119/55 (76) 97 01/20/19 12:00 Mechanical Ventilator 01/20/19 12:00 61 01/20/19 12:00 40 01/20/19 10:57 62 18 40 01/20/19 08:56 72 18 40 01/20/19 08:00 40 01/20/19 08:00 98.0 63 21 100/55 (70) 97 01/20/19 08:00 Mechanical Ventilator 01/20/19 08:00 69 01/20/19 07:20 74 18 40 01/20/19 05:02 73 18 40 01/20/19 04:00 97.9 82 19 108/54 (72) 99 01/20/19 04:00 Mechanical Ventilator 01/20/19 04:00 85 01/20/19 04:00 40 01/20/19 02:45 80 18 40 01/20/19 01:15 89 18 40 01/20/19 00:00 Mechanical Ventilator 01/20/19 00:00 98.1 82 18 93/55 (68) 96 01/19/19 23:36 67 01/19/19 22:58 88 18 40 Intake and Output 01/19/19 01/20/19 18:59 06:59 Intake Total 702 ml 680 ml Output Total 150 ml 180 ml Balance 552 ml 500 ml Intake Free Water 150 ml 60 ml Tube Feeding 552 ml 620 ml Output Urine Total 150 ml Stool Total 150 ml 30 ml # Voids 4 # Bowel Movements 1 Laboratory Tests 01/20/19 03:50: White Blood Count 7.2, Red Blood Count 3.73L, Hemoglobin 12.9, Hematocrit 37.8, Mean Corpuscular Volume 101H, Mean Corpuscular Hemoglobin 34.4H, Mean Corpuscular Hemoglobin Concent 34.0, Red Cell Distribution Width 14.2, Platelet Count 170, Mean Platelet Volume 9.9, Neutrophils (%) (Auto) 67.5, Lymphocytes (% ) (Auto) 19.2L, Monocytes (%) (Auto) 9.0, Eosinophils (%) (Auto) 3.6H, Basophils (%) (Auto) 0.7, Sodium Level 142, Potassium Level 3.5, Chloride Level 108H, Carbon Dioxide Level 28, Anion Gap 6, Blood Urea Nitrogen 12, Creatinine 0.6, Estimat Glomerular Filtration Rate , Glucose Level 115H, Calcium Level 9.7 , Pro-B-Type Natriuretic Peptide 274H, Thyroid Stimulating Hormone (TSH) 7.573H 01/20/19 07:05: Arterial Blood pH 7.491H, Arterial Blood Partial Pressure CO2 34.5L, Arterial Blood Partial Pressure O2 108.8H, Arterial Blood HCO3 25.8, Arterial Blood Oxygen Saturation 97.9, Arterial Blood Base Excess 2.7H, Best Test Positive Height (Feet): 5 Height (Inches): 4.00 Weight (Pounds): 224 Cardiovascular: normal rate Respiratory/Chest: lungs clear Abdomen: soft Wanda Murphy MD January 20, 2019 21:34
[2019-01-21] VITALS: BP 116/51
--- NOTE | 2019-01-21 | NUR ---
NURSE NOTES: Unable to give patient medications prescribed via G-Tube due to patient previously pulling out G-tube and a catheter was put in place.
[2019-01-21] MEDS: D5NS 1,000 ML IV SCH ×3 (02:42→23:50)
[2019-01-21 04:00] VITALS: BP 146/80
[2019-01-21 05:21] LABS: BASOPHILS % (AUTO) 0.7 % (0.0-2.0); EOSINOPHILS % (AUTO) 3.4 % (0.0-3.0); HEMATOCRIT 35.6 % (37.0-47.0); HEMOGLOBIN 12.2 G/DL (12.0-16.0); LYMPHOCYTES % (AUTO) 15.9 % (20.0-45.0); MEAN CORPUSCULAR VOLUME 102 FL (80-99); MONOCYTES % (AUTO) 8.5 % (1.0-10.0); NEUTROPHILS % (AUTO) 71.5 % (45.0-75.0); PLATELET COUNT 169 K/UL (150-450); RED BLOOD COUNT 3.51 M/UL (4.20-5.40); RED CELL DISTRIBUTION WIDTH 14.1 % (11.6-14.8); WHITE BLOOD COUNT 6.2 K/UL (4.8-10.8)
[2019-01-21 05:47] LABS: ALANINE AMINOTRANSFERASE 23 U/L (12-78); ALBUMIN 2.5 G/DL (3.4-5.0); ALBUMIN/GLOBULIN RATIO 0.5 (1.0-2.7); ALKALINE PHOSPHATASE 185 U/L (46-116); ANION GAP 7 mmol/L (5-15); ASPARTATE AMINO TRANSFERASE 30 U/L (15-37); BILIRUBIN,TOTAL 0.4 MG/DL (0.2-1.0); BLOOD UREA NITROGEN 9 mg/dL (7-18); CALCIUM 9.3 MG/DL (8.5-10.1); CARBON DIOXIDE 27 MMOL/L (21-32); CHLORIDE 111 MMOL/L (98-107); CHOLESTEROL 153 MG/DL (< 200); CREATININE 0.5 MG/DL (0.55-1.30); FERRITIN 155 NG/ML (8-388); GAMMA GLUTAMYL TRANSPEPTIDASE 403 U/L (5-85); HDL CHOLESTEROL 59 MG/DL (40-60); POTASSIUM 3.1 MMOL/L (3.5-5.1); SODIUM 144 MMOL/L (136-145); TRIGLYCERIDES 106 MG/DL (30-150)
[2019-01-21] MEDS: NovoLOG Insulin Flexpen SUBQ SCH ×3 (05:47→17:50)
[2019-01-21] MEDS: Cephalexin 500mg cap GT SCH ×4 (05:47→23:50)
--- NOTE | 2019-01-21 06:43 | NUR ---
NURSE NOTES: Called Dr. Ramos's office to inform doctor about Potassium level of 3.1.
--- NOTE | 2019-01-21 07:18 | NUR ---
HAND-OFF: Report given to Tobias RN. Patient showing no signs of distress.
--- NOTE | 2019-01-21 07:19 | NUR ---
RESPIRATORY NOTE: Patient received mechanically ventilated on PB 840 with current ordered vent settings. Patient has trach size 8.0 Portex cuffed that is secured with trach tie and guard. Vent alarms are functional and audible. There is an ambu bag available at the bedside and the vent is connected to a red outlet. Will continue to monitor.
--- NOTE | 2019-01-21 07:20 | NUR ---
NURSE NOTES: RECEIVED BED SIDE REPORT FROM NOC SHIFT RESEARCH CONTRACTS SUPERVISOR. RECEIVED PT WITH HOB ELEVATED 45 DEGREE ,SEEMS RESTING COMFORTABLY,TRACH TO VENT.PT TRACH PATENT AND INTACT WELL SECURED.PT TOLERATING WELL CURRENTS VENT SETTING,RENDERED TRACH AND ORAL CARE ,SX,D MOD AMT OF WHITE THICK SECRETIONS.PT IS NPO ON SCHEDULE FOR INSERTION OF NEW GTF TODAY.ALL AM MED,S VIA GT HELD.PT WITH K+ 3.1 .M.D KAYARRABI ORDER TO GIVE KCL 40MEQ VIPB .NEW ORDERS NOTED AND CARRIED OUT.FULL BODY ASSESSMENT DONE.PT REPOSITIONED IN BED Q 2HRS TO PREVENT SKIN BREAK DOWN.NO ACUTE DISTRESS NOTED AT THIS TIME.WILL CONT TO MONITOR.
--- NOTE | 2019-01-21 07:31 | NUR ---
NURSE NOTES: Dr. Ramos's office was notified of patient's Bradycardia episode HR - 41, Tachycardia of 150, and two seizure episodes. Endorsed to oil expeller operator that Tobias RN will take over patient.
[2019-01-21 08:00] VITALS: BP 130/64
[2019-01-21] MEDS: Heparin 5000 units/ml inj SUBQ SCH ×2 (09:00→20:44)
--- NOTE | 2019-01-21 10:58 | Pulmonology Progress Note ---
Assessment/Plan Problems: (1) G-tube site cellulitis (2) Chronic respiratory failure (3) Status post tracheostomy (4) Electrolyte imbalance (5) Seizure disorder (6) Hypothyroidism (7) Anoxic brain damage syndrome (8) Vegetative state (9) HTN (hypertension) (10) Functional paraplegia (11) AV block, 2nd degree Respiratory: monitor respiratory rate, adjust FIO2 Cardiac: continue pressors, continue to monitor HR/BP Renal: F/U I&O, check electrolytes, other - supplement electrolytes Infectious Disease: check cultures Gastrointestinal: hold feedings Endocrine: check TSH, check HgA1C Hematologic: transfuse if hgb<8.5 Neurologic: keep patient comfortable Prophylaxis: Protonix Disposition: keep in ICU Time Spent (Minutes): 40 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: 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, 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 Subjective ROS Limited/Unobtainable: No Constitutional: Reports: no symptoms HEENT: Repors: no symptoms Allergies: Coded Allergies: PEANUT (Verified Allergy, Unknown, 09/22/16) Objective Last 24 Hour Vital Signs Date Time Temp Pulse Resp B/P (MAP) Pulse Ox O2 Delivery O2 Flow Rate FiO2 01/21/19 08:58 50 18 40 01/21/19 08:00 85 01/21/19 08:00 99.4 74 18 130/64 (86) 99 01/21/19 07:15 65 18 40 01/21/19 05:06 81 18 40 01/21/19 04:00 97.5 75 18 146/80 (102) 100 01/21/19 04:00 Mechanical Ventilator 01/21/19 04:00 40 01/21/19 03:33 55 01/21/19 03:07 69 18 40 01/21/19 01:13 80 18 40 01/21/19 00:00 98.9 72 18 116/51 (72) 94 01/21/19 00:00 Mechanical Ventilator 01/20/19 23:21 68 01/20/19 23:13 71 18 40 01/20/19 20:43 73 18 40 01/20/19 20:03 70 18 40 01/20/19 20:00 40 01/20/19 20:00 Mechanical Ventilator 01/20/19 20:00 97.7 66 18 112/53 (72) 98 01/20/19 19:03 54 01/20/19 17:23 63 18 40 01/20/19 16:15 40 01/20/19 16:01 Mechanical Ventilator 01/20/19 16:00 63 01/20/19 16:00 98.1 68 18 110/53 (72) 96 01/20/19 15:10 80 18 40 01/20/19 13:19 68 20 40 01/20/19 12:00 98.1 63 21 119/55 (76) 97 01/20/19 12:00 Mechanical Ventilator 01/20/19 12:00 61 01/20/19 12:00 40 01/20/19 10:57 62 18 40 Intake and Output 01/20/19 01/21/19 19:00 07:00 Intake Total 75 ml 847.5 ml Output Total 300 ml 200 ml Balance -225 ml 647.5 ml IV Total 75 ml 847.5 ml Tube Feeding 0 ml 0 ml Output Urine Total 250 ml 50 ml Stool Total 50 ml 50 ml Chest Tube Drainage Total 100 ml # Voids 1 General Appearance: WD/WN HEENT: normocephalic, atraumatic Respiratory/Chest: chest wall non-tender, normal breath sounds Breasts: no masses Cardiovascular: normal rate Abdomen: normal bowel sounds, no organomegaly Genitourinary: normal external genitalia Extremities: no clubbing Skin: no rash Neurologic/Psychiatric: brokerage manager II-XII grossly normal Laboratory Tests 01/21/19 04:10: White Blood Count 6.2, Red Blood Count 3.51L, Hemoglobin 12.2, Hematocrit 35.6L , Mean Corpuscular Volume 102H, Mean Corpuscular Hemoglobin 34.6H, Mean Corpuscular Hemoglobin Concent 34.1, Red Cell Distribution Width 14.1, Platelet Count 169, Mean Platelet Volume 10.2H, Neutrophils (%) (Auto) 71.5, Lymphocytes (%) (Auto) 15.9L, Monocytes (%) (Auto) 8.5, Eosinophils (%) (Auto) 3.4H, Basophils (%) (Auto) 0.7, Sodium Level 144, Potassium Level 3.1L, Chloride Level 111H, Carbon Dioxide Level 27, Anion Gap 7, Blood Urea Nitrogen 9, Creatinine 0.5L, Estimat Glomerular Filtration Rate , Glucose Level 114H, Hemoglobin A1c 4.8, Lactic Acid Level 1.00, Uric Acid 5.8, Calcium Level 9.3, Phosphorus Level 3.0, Magnesium Level 1.9, Ferritin 155, Total Bilirubin 0.4, Gamma Glutamyl Transpeptidase 403H, Aspartate Amino Transf (AST/SGOT) 30, Alanine Aminotransferase (ALT/SGPT) 23, Alkaline Phosphatase 185H, Troponin I 0.013, C-Reactive Protein, Quantitative 4.4H, Pro-B-Type Natriuretic Peptide 254H, Total Protein 7.9, Albumin 2.5L, Globulin 5.4, Albumin/Globulin Ratio 0.5L , Triglycerides Level 106, Cholesterol Level 153, LDL Cholesterol 77, HDL Cholesterol 59, Cholesterol/HDL Ratio 2.6L, Vitamin B12 Level 1578H, Folate 19.0 , Thyroid Stimulating Hormone (TSH) 5.490H Current Medications Medications (Trade) Dose Ordered Sig/Boubacar Route PRN Reason Start Time Stop Time Status Last Admin Dose Admin Acetaminophen (Tylenol) 650 mg Q4H PRN GT fever 01/20/19 14:00 02/16/19 14:45 Albuterol/ Ipratropium (Albuterol/ Ipratropium) 3 ml Q4H PRN HHN Shortness of Breath 01/17/19 14:48 01/22/19 14:47 Cephalexin (Keflex) 500 mg Q6HR GT 01/19/19 12:00 01/26/19 05:59 01/19/19 23:59 Dextrose (Dextrose 50%) 25 ml Q30M PRN IV Hypoglycemia 01/18/19 11:00 02/17/19 10:59 Dextrose (Dextrose 50%) 50 ml Q30M PRN IV Hypoglycemia 01/18/19 11:00 02/17/19 10:59 Dextrose/Sodium Chloride 1,000 ml @ 50 mls/hr Q20H IV 01/21/19 10:00 02/20/19 09:59 Heparin Sodium (Porcine) (Heparin 5000 units/ml) 5,000 units EVERY 12 HOURS SUBQ 01/17/19 21:00 02/16/19 20:59 01/20/19 21:10 Insulin Aspart (NovoLOG) Q6HR SUBQ 01/18/19 12:00 02/17/19 11:59 01/20/19 00:00 Letrozole (Femara) 2.5 mg DAILY ORAL 01/19/19 09:00 01/23/19 08:59 01/19/19 08:10 Levetiracetam 1500 mg/Dextrose 110 ml @ 440 mls/hr Q12HR IV 01/21/19 11:00 02/20/19 10:59 Levothyroxine Sodium (Synthroid) 100 mcg DAILY@0630 GT 01/21/19 06:30 02/17/19 06:29 Nitroglycerin (Ntg) 0.4 mg Q5M PRN SL Prn Chest Pain 01/17/19 14:47 02/16/19 14:46 Ondansetron HCl (Zofran) 4 mg Q6H PRN IVP Nausea & Vomiting 01/17/19 14:48 02/16/19 14:47 Polyethylene Glycol (Miralax) 17 gm BEDTIME GT 01/18/19 21:00 02/17/19 20:59 01/19/19 20:46 Polyethylene Glycol (Miralax) 17 gm DAILYPRN PRN ORAL Constipation 01/17/19 14:46 02/16/19 14:45 Potassium Chloride 100 ml @ 100 mls/hr Q1HR IVPB 01/21/19 08:00 01/21/19 11:59 01/21/19 09:53 Promethazine HCl/ Codeine (Phenergan with Codeine) 5 ml Q4H PRN ORAL For Cough 01/17/19 14:47 02/16/19 14:46 Temazepam (Restoril) 15 mg HSPRN PRN ORAL Insomnia 01/17/19 21:00 01/24/19 20:59 Savi Rodriguez MD January 21, 2019 10:58
[2019-01-21] MEDS ORDERED: levETIRAcetam 1,500 MG in D5W 95 ML IV SCH (11:00)
--- NOTE | 2019-01-21 11:11 | GI Progress Note ---
Assessment/Plan Problems: (1) G-tube site cellulitis ICD Codes: K94.22 - Gastrostomy infection; L03.319 - Cellulitis of trunk, unspecified SNOMED: 821857298, 739331980 (2) Malfunction of gastrostomy tube ICD Codes: K94.23 - Gastrostomy malfunction SNOMED: 860577388 (3) Colon distention ICD Codes: K63.89 - Other specified diseases of intestine SNOMED: 097010992 (4) Electrolyte imbalance ICD Codes: E87.8 - Other disorders of electrolyte and fluid balance, not elsewhere classified SNOMED: 624114106 (5) Anemia ICD Codes: D64.9 - Anemia, unspecified SNOMED: 990149399 (6) Abdominal wall cellulitis ICD Codes: L03.311 - Cellulitis of abdominal wall SNOMED: 97624888 Status: stable Status Narrative Discussed with Dr. Cardenas. Assessment/Plan GT site to be changed by surgery GTF running ppi electrolyte correction follow labs The patient was seen and examined at bedside and all new and available data was reviewed in the patients chart. I agree with the above findings, impression and plan. (Patient seen earlier today. Signature stamp does not reflect patient encounter time.). - Wilmer Cardenas MD Subjective Gastrointestinal/Abdominal: Reports: no symptoms Objective Last 24 Hour Vital Signs Date Time Temp Pulse Resp B/P (MAP) Pulse Ox O2 Delivery O2 Flow Rate FiO2 01/21/19 11:02 70 18 40 01/21/19 08:58 50 18 40 01/21/19 08:00 85 01/21/19 08:00 99.4 74 18 130/64 (86) 99 01/21/19 07:15 65 18 40 01/21/19 05:06 81 18 40 01/21/19 04:00 97.5 75 18 146/80 (102) 100 01/21/19 04:00 Mechanical Ventilator 01/21/19 04:00 40 01/21/19 03:33 55 01/21/19 03:07 69 18 40 01/21/19 01:13 80 18 40 01/21/19 00:00 98.9 72 18 116/51 (72) 94 01/21/19 00:00 Mechanical Ventilator 01/20/19 23:21 68 01/20/19 23:13 71 18 40 01/20/19 20:43 73 18 40 01/20/19 20:03 70 18 40 01/20/19 20:00 40 01/20/19 20:00 Mechanical Ventilator 01/20/19 20:00 97.7 66 18 112/53 (72) 98 01/20/19 19:03 54 01/20/19 17:23 63 18 40 01/20/19 16:15 40 01/20/19 16:01 Mechanical Ventilator 01/20/19 16:00 63 01/20/19 16:00 98.1 68 18 110/53 (72) 96 01/20/19 15:10 80 18 40 01/20/19 13:19 68 20 40 01/20/19 12:00 98.1 63 21 119/55 (76) 97 01/20/19 12:00 Mechanical Ventilator 01/20/19 12:00 61 01/20/19 12:00 40 Intake and Output 01/20/19 01/21/19 19:00 07:00 Intake Total 75 ml 847.5 ml Output Total 300 ml 200 ml Balance -225 ml 647.5 ml IV Total 75 ml 847.5 ml Tube Feeding 0 ml 0 ml Output Urine Total 250 ml 50 ml Stool Total 50 ml 50 ml Chest Tube Drainage Total 100 ml # Voids 1 Laboratory Tests Test 01/21/19 04:10 White Blood Count 6.2 K/UL (4.8-10.8) Red Blood Count 3.51 M/UL (4.20-5.40) L Hemoglobin 12.2 G/DL (12.0-16.0) Hematocrit 35.6 % (37.0-47.0) L Mean Corpuscular Volume 102 FL (80-99) H Mean Corpuscular Hemoglobin 34.6 PG (27.0-31.0) H Mean Corpuscular Hemoglobin Concent 34.1 G/DL (32.0-36.0) Red Cell Distribution Width 14.1 % (11.6-14.8) Platelet Count 169 K/UL (150-450) Mean Platelet Volume 10.2 FL (6.5-10.1) H Neutrophils (%) (Auto) 71.5 % (45.0-75.0) Lymphocytes (%) (Auto) 15.9 % (20.0-45.0) L Monocytes (%) (Auto) 8.5 % (1.0-10.0) Eosinophils (%) (Auto) 3.4 % (0.0-3.0) H Basophils (%) (Auto) 0.7 % (0.0-2.0) Sodium Level 144 MMOL/L (136-145) Potassium Level 3.1 MMOL/L (3.5-5.1) L Chloride Level 111 MMOL/L (98-107) H Carbon Dioxide Level 27 MMOL/L (21-32) Anion Gap 7 mmol/L (5-15) Blood Urea Nitrogen 9 mg/dL (7-18) Creatinine 0.5 MG/DL (0.55-1.30) L Estimat Glomerular Filtration Rate mL/min (>60) Glucose Level 114 MG/DL (74-106) H Hemoglobin A1c 4.8 % (4.3-6.0) Lactic Acid Level 1.00 mmol/L (0.4-2.0) Uric Acid 5.8 MG/DL (2.6-7.2) Calcium Level 9.3 MG/DL (8.5-10.1) Phosphorus Level 3.0 MG/DL (2.5-4.9) Magnesium Level 1.9 MG/DL (1.8-2.4) Ferritin 155 NG/ML (8-388) Total Bilirubin 0.4 MG/DL (0.2-1.0) Gamma Glutamyl Transpeptidase 403 U/L (5-85) H Aspartate Amino Transf (AST/SGOT) 30 U/L (15-37) Alanine Aminotransferase (ALT/SGPT) 23 U/L (12-78) Alkaline Phosphatase 185 U/L (46-116) H Troponin I 0.013 ng/mL (0.000-0.056) C-Reactive Protein, Quantitative 4.4 mg/dL (0.00-0.90) H Pro-B-Type Natriuretic Peptide 254 pg/mL (0-125) H Total Protein 7.9 G/DL (6.4-8.2) Albumin 2.5 G/DL (3.4-5.0) L Globulin 5.4 g/dL Albumin/Globulin Ratio 0.5 (1.0-2.7) L Triglycerides Level 106 MG/DL (30-150) Cholesterol Level 153 MG/DL (< 200) LDL Cholesterol 77 mg/dL (<100) HDL Cholesterol 59 MG/DL (40-60) Cholesterol/HDL Ratio 2.6 (3.3-4.4) L Vitamin B12 Level 1578 PG/ML (193-986) H Folate 19.0 NG/ML (8.6-58.9) Thyroid Stimulating Hormone (TSH) 5.490 uiU/mL (0.358-3.740) Height (Feet): 5 Height (Inches): 4.00 Weight (Pounds): 224 General Appearance: WD/WN, no apparent distress, alert Cardiovascular: normal rate Respiratory/Chest: normal breath sounds, no respiratory distress Abdominal Exam: normal bowel sounds, non tender, soft, GT site - leaking improved Extremities: non-tender Valerie Salcedo NP January 21, 2019 11:11
[2019-01-21 12:00] VITALS: BP 144/70
--- NOTE | 2019-01-21 13:13 | Diagnostic Imaging Report ---
Indication: Dyspnea Comparison: 01/20/2019 A single view chest radiograph was obtained. Findings: 'S mild pulmonary vascular congestion suspected. Tracheostomy again noted. Heart size is stable. IMPRESSION: No change from the previous examination. Suspected mild CHF
--- NOTE | 2019-01-21 13:14 | Infectious Diseases Prog Note ---
Assessment/Plan Assessment/Plan Abx: IV Vancomycin 01/17- Cefepime 01/17- Assessment: GT malfunction and surrounding mild cellulitis Afebrile No leukocytosis -01/19 CXR: Suspected pulmonary vascular congestion/interstitial edema. Correlate clinically. No change compared to the prior study -CT abd/p: Moderate retention of feces within the colon with a liquefied stool , sign of diarrhea. Correlate clinically Gastrostomy tube with the tip projected over the region of the pylorus. Small umbilical hernia containing fat. Atherosclerotic disease. Hypodensity in the left kidney may be cystic but not adequately evaluated. Calcification in the cystic liver nonspecific. Basilar atelectasis -sp cx GGS, PSA (patel S), ESBL K. pna (S Cipro/levo, Zosyn); colonizers hx of recent sepsis 2ry to UTI 10/2018 UCx - Ecoli Chronic resp failure trach/vent dependant Dementia non-verbal COPD CAD/STEMI CHF Seizure disorder HTN CVA dysphagia s/p PEG [facility] resident Plan: -Cont PO Keflex #4 (abx d #/) -01/18 SP Cefepime and IV Vancomycin #2 -10/14 SP Cefepime #7 - 10/10/18 SP Vancomycin #2 -f/u cx -Monitor CBC/CMP, temperatures -wound care per surgical team -GI, Sx f/u -PEG/Trach care -aspiration precautions Thank you for this consultation. Will continue to follow along with you. Discussed with RN. Subjective Allergies: Coded Allergies: PEANUT (Verified Allergy, Unknown, 09/22/16) Subjective afebrile no leukocytosis Objective Vital Signs Last 24 Hour Vital Signs Date Time Temp Pulse Resp B/P (MAP) Pulse Ox O2 Delivery O2 Flow Rate FiO2 01/21/19 13:08 75 18 40 01/21/19 12:00 98.9 76 18 144/70 (94) 100 01/21/19 11:02 70 18 40 01/21/19 08:58 50 18 40 01/21/19 08:00 85 01/21/19 08:00 99.4 74 18 130/64 (86) 99 01/21/19 07:15 65 18 40 01/21/19 05:06 81 18 40 01/21/19 04:00 97.5 75 18 146/80 (102) 100 01/21/19 04:00 Mechanical Ventilator 01/21/19 04:00 40 01/21/19 03:33 55 01/21/19 03:07 69 18 40 01/21/19 01:13 80 18 40 01/21/19 00:00 98.9 72 18 116/51 (72) 94 01/21/19 00:00 Mechanical Ventilator 01/20/19 23:21 68 01/20/19 23:13 71 18 40 01/20/19 20:43 73 18 40 01/20/19 20:03 70 18 40 01/20/19 20:00 40 01/20/19 20:00 Mechanical Ventilator 01/20/19 20:00 97.7 66 18 112/53 (72) 98 01/20/19 19:03 54 01/20/19 17:23 63 18 40 01/20/19 16:15 40 01/20/19 16:01 Mechanical Ventilator 01/20/19 16:00 63 01/20/19 16:00 98.1 68 18 110/53 (72) 96 01/20/19 15:10 80 18 40 01/20/19 13:19 68 20 40 Height (Feet): 5 Height (Inches): 4.00 Weight (Pounds): 224 Objective General Appearance: no apparent distress Lines, tubes and drains: peripheral HEENT: mucous membranes moist Neck: normal inspection Respiratory/Chest: no respiratory distress, no accessory muscle use, decreased breath sounds Cardiovascular/Chest: normal rate Abdomen: soft, no organomegaly, no mass, distended, feeding tube - dislodged with balloon in abdominal wall tissue Extremities: other Skin Exam: other Neurologic: alert Laboratory Tests Test 01/21/19 04:10 White Blood Count 6.2 K/UL (4.8-10.8) Red Blood Count 3.51 M/UL (4.20-5.40) L Hemoglobin 12.2 G/DL (12.0-16.0) Hematocrit 35.6 % (37.0-47.0) L Mean Corpuscular Volume 102 FL (80-99) H Mean Corpuscular Hemoglobin 34.6 PG (27.0-31.0) H Mean Corpuscular Hemoglobin Concent 34.1 G/DL (32.0-36.0) Red Cell Distribution Width 14.1 % (11.6-14.8) Platelet Count 169 K/UL (150-450) Mean Platelet Volume 10.2 FL (6.5-10.1) H Neutrophils (%) (Auto) 71.5 % (45.0-75.0) Lymphocytes (%) (Auto) 15.9 % (20.0-45.0) L Monocytes (%) (Auto) 8.5 % (1.0-10.0) Eosinophils (%) (Auto) 3.4 % (0.0-3.0) H Basophils (%) (Auto) 0.7 % (0.0-2.0) Sodium Level 144 MMOL/L (136-145) Potassium Level 3.1 MMOL/L (3.5-5.1) L Chloride Level 111 MMOL/L (98-107) H Carbon Dioxide Level 27 MMOL/L (21-32) Anion Gap 7 mmol/L (5-15) Blood Urea Nitrogen 9 mg/dL (7-18) Creatinine 0.5 MG/DL (0.55-1.30) L Estimat Glomerular Filtration Rate mL/min (>60) Glucose Level 114 MG/DL (74-106) H Hemoglobin A1c 4.8 % (4.3-6.0) Lactic Acid Level 1.00 mmol/L (0.4-2.0) Uric Acid 5.8 MG/DL (2.6-7.2) Calcium Level 9.3 MG/DL (8.5-10.1) Phosphorus Level 3.0 MG/DL (2.5-4.9) Magnesium Level 1.9 MG/DL (1.8-2.4) Ferritin 155 NG/ML (8-388) Total Bilirubin 0.4 MG/DL (0.2-1.0) Gamma Glutamyl Transpeptidase 403 U/L (5-85) H Aspartate Amino Transf (AST/SGOT) 30 U/L (15-37) Alanine Aminotransferase (ALT/SGPT) 23 U/L (12-78) Alkaline Phosphatase 185 U/L (46-116) H Troponin I 0.013 ng/mL (0.000-0.056) C-Reactive Protein, Quantitative 4.4 mg/dL (0.00-0.90) H Pro-B-Type Natriuretic Peptide 254 pg/mL (0-125) H Total Protein 7.9 G/DL (6.4-8.2) Albumin 2.5 G/DL (3.4-5.0) L Globulin 5.4 g/dL Albumin/Globulin Ratio 0.5 (1.0-2.7) L Triglycerides Level 106 MG/DL (30-150) Cholesterol Level 153 MG/DL (< 200) LDL Cholesterol 77 mg/dL (<100) HDL Cholesterol 59 MG/DL (40-60) Cholesterol/HDL Ratio 2.6 (3.3-4.4) L Vitamin B12 Level 1578 PG/ML (193-986) H Folate 19.0 NG/ML (8.6-58.9) Thyroid Stimulating Hormone (TSH) 5.490 uiU/mL (0.358-3.740) Current Medications Medications (Trade) Dose Ordered Sig/Boubacar Route PRN Reason Start Time Stop Time Status Last Admin Dose Admin Acetaminophen (Tylenol) 650 mg Q4H PRN GT fever 01/20/19 14:00 02/16/19 14:45 Albuterol/ Ipratropium (Albuterol/ Ipratropium) 3 ml Q4H PRN HHN Shortness of Breath 01/17/19 14:48 01/22/19 14:47 Cephalexin (Keflex) 500 mg Q6HR GT 01/19/19 12:00 01/26/19 05:59 01/19/19 23:59 Dextrose (Dextrose 50%) 25 ml Q30M PRN IV Hypoglycemia 01/18/19 11:00 02/17/19 10:59 Dextrose (Dextrose 50%) 50 ml Q30M PRN IV Hypoglycemia 01/18/19 11:00 02/17/19 10:59 Dextrose/Sodium Chloride 1,000 ml @ 50 mls/hr Q20H IV 01/21/19 10:00 02/20/19 09:59 01/21/19 10:00 Heparin Sodium (Porcine) (Heparin 5000 units/ml) 5,000 units EVERY 12 HOURS SUBQ 01/17/19 21:00 02/16/19 20:59 01/20/19 21:10 Insulin Aspart (NovoLOG) Q6HR SUBQ 01/18/19 12:00 02/17/19 11:59 01/20/19 00:00 Letrozole (Femara) 2.5 mg DAILY ORAL 01/19/19 09:00 01/23/19 08:59 01/19/19 08:10 Levetiracetam 1500 mg/Dextrose 110 ml @ 440 mls/hr Q12HR IV 01/21/19 11:00 02/20/19 10:59 01/21/19 11:58 Levothyroxine Sodium (Synthroid) 100 mcg DAILY@0630 GT 01/21/19 06:30 02/17/19 06:29 Nitroglycerin (Ntg) 0.4 mg Q5M PRN SL Prn Chest Pain 01/17/19 14:47 02/16/19 14:46 Ondansetron HCl (Zofran) 4 mg Q6H PRN IVP Nausea & Vomiting 01/17/19 14:48 02/16/19 14:47 Polyethylene Glycol (Miralax) 17 gm BEDTIME GT 01/18/19 21:00 02/17/19 20:59 01/19/19 20:46 Polyethylene Glycol (Miralax) 17 gm DAILYPRN PRN ORAL Constipation 01/17/19 14:46 02/16/19 14:45 Promethazine HCl/ Codeine (Phenergan with Codeine) 5 ml Q4H PRN ORAL For Cough 01/17/19 14:47 02/16/19 14:46 Temazepam (Restoril) 15 mg HSPRN PRN ORAL Insomnia 01/17/19 21:00 01/24/19 20:59 Sadia Medeiros M.D. January 21, 2019 13:14
--- NOTE | 2019-01-21 13:21 | Surgery Progress Note ---
Surgery Progress Note Subjective Additional Comments no acute events. comfortable. stable Objective Last 24 Hour Vital Signs Date Time Temp Pulse Resp B/P (MAP) Pulse Ox O2 Delivery O2 Flow Rate FiO2 01/21/19 13:08 75 18 40 01/21/19 12:00 98.9 76 18 144/70 (94) 100 01/21/19 11:02 70 18 40 01/21/19 08:58 50 18 40 01/21/19 08:00 85 01/21/19 08:00 99.4 74 18 130/64 (86) 99 01/21/19 07:15 65 18 40 01/21/19 05:06 81 18 40 01/21/19 04:00 97.5 75 18 146/80 (102) 100 01/21/19 04:00 Mechanical Ventilator 01/21/19 04:00 40 01/21/19 03:33 55 01/21/19 03:07 69 18 40 01/21/19 01:13 80 18 40 01/21/19 00:00 98.9 72 18 116/51 (72) 94 01/21/19 00:00 Mechanical Ventilator 01/20/19 23:21 68 01/20/19 23:13 71 18 40 01/20/19 20:43 73 18 40 01/20/19 20:03 70 18 40 01/20/19 20:00 40 01/20/19 20:00 Mechanical Ventilator 01/20/19 20:00 97.7 66 18 112/53 (72) 98 01/20/19 19:03 54 01/20/19 17:23 63 18 40 01/20/19 16:15 40 01/20/19 16:01 Mechanical Ventilator 01/20/19 16:00 63 01/20/19 16:00 98.1 68 18 110/53 (72) 96 01/20/19 15:10 80 18 40 I&O Intake and Output 01/20/19 01/21/19 19:00 07:00 Intake Total 75 ml 847.5 ml Output Total 300 ml 200 ml Balance -225 ml 647.5 ml IV Total 75 ml 847.5 ml Tube Feeding 0 ml 0 ml Output Urine Total 250 ml 50 ml Stool Total 50 ml 50 ml Chest Tube Drainage Total 100 ml # Voids 1 Dressing: saturated Wound: clean Drains: other Cardiovascular: RSR Respiratory: clear Abdomen: soft, present bowel sounds, non-distended Extremities: no tenderness, no cyanosis Laboratory Tests Test 01/21/19 04:10 White Blood Count 6.2 K/UL (4.8-10.8) Red Blood Count 3.51 M/UL (4.20-5.40) L Hemoglobin 12.2 G/DL (12.0-16.0) Hematocrit 35.6 % (37.0-47.0) L Mean Corpuscular Volume 102 FL (80-99) H Mean Corpuscular Hemoglobin 34.6 PG (27.0-31.0) H Mean Corpuscular Hemoglobin Concent 34.1 G/DL (32.0-36.0) Red Cell Distribution Width 14.1 % (11.6-14.8) Platelet Count 169 K/UL (150-450) Mean Platelet Volume 10.2 FL (6.5-10.1) H Neutrophils (%) (Auto) 71.5 % (45.0-75.0) Lymphocytes (%) (Auto) 15.9 % (20.0-45.0) L Monocytes (%) (Auto) 8.5 % (1.0-10.0) Eosinophils (%) (Auto) 3.4 % (0.0-3.0) H Basophils (%) (Auto) 0.7 % (0.0-2.0) Sodium Level 144 MMOL/L (136-145) Potassium Level 3.1 MMOL/L (3.5-5.1) L Chloride Level 111 MMOL/L (98-107) H Carbon Dioxide Level 27 MMOL/L (21-32) Anion Gap 7 mmol/L (5-15) Blood Urea Nitrogen 9 mg/dL (7-18) Creatinine 0.5 MG/DL (0.55-1.30) L Estimat Glomerular Filtration Rate mL/min (>60) Glucose Level 114 MG/DL (74-106) H Hemoglobin A1c 4.8 % (4.3-6.0) Lactic Acid Level 1.00 mmol/L (0.4-2.0) Uric Acid 5.8 MG/DL (2.6-7.2) Calcium Level 9.3 MG/DL (8.5-10.1) Phosphorus Level 3.0 MG/DL (2.5-4.9) Magnesium Level 1.9 MG/DL (1.8-2.4) Ferritin 155 NG/ML (8-388) Total Bilirubin 0.4 MG/DL (0.2-1.0) Gamma Glutamyl Transpeptidase 403 U/L (5-85) H Aspartate Amino Transf (AST/SGOT) 30 U/L (15-37) Alanine Aminotransferase (ALT/SGPT) 23 U/L (12-78) Alkaline Phosphatase 185 U/L (46-116) H Troponin I 0.013 ng/mL (0.000-0.056) C-Reactive Protein, Quantitative 4.4 mg/dL (0.00-0.90) H Pro-B-Type Natriuretic Peptide 254 pg/mL (0-125) H Total Protein 7.9 G/DL (6.4-8.2) Albumin 2.5 G/DL (3.4-5.0) L Globulin 5.4 g/dL Albumin/Globulin Ratio 0.5 (1.0-2.7) L Triglycerides Level 106 MG/DL (30-150) Cholesterol Level 153 MG/DL (< 200) LDL Cholesterol 77 mg/dL (<100) HDL Cholesterol 59 MG/DL (40-60) Cholesterol/HDL Ratio 2.6 (3.3-4.4) L Vitamin B12 Level 1578 PG/ML (193-986) H Folate 19.0 NG/ML (8.6-58.9) Thyroid Stimulating Hormone (TSH) 5.490 uiU/mL (0.358-3.740) Plan Problems: (1) Abdominal wall cellulitis Assessment & Plan: Patient has developed abdominal wall cellulitis around G tube site g tube evaluated and dislodged with balloon in abdominal wall soft tissue g tube removed at bedside. balloon deflated. tube has good track but wide given dislodged with balloon inflated keep balloon deflated and tube in place. tube taped in place plan to suture tube in place tomorrow if continues to go well okay to use tube for now appreciate GI input d/c planning (2) G-tube site cellulitis Assessment & Plan: as above (3) Colon distention Assessment & Plan: KUB: Gastrostomy noted. The tip is not well seen but there is contrast in the fundus of the stomach. The position of the gastrostomy is not adequately elucidated on this exam. Patient has a chronically and massively distended sigmoid colon. Previous CT showed no evidence of volvulus. There is nonvisualization of the lower part of the abdomen and pelvis which was not imaged. There is contrast within the left hemicolon and transverse colon. unsure what contrast in colon is from and how long it has been there recommend follow up CT ordered will follow with recs (4) Malfunction of gastrostomy tube Heath Martell January 21, 2019 13:21
--- NOTE | 2019-01-21 13:36 | General Progress Note ---
Assessment/Plan Problem List: (1) Malfunction of gastrostomy tube ICD Codes: K94.23 - Gastrostomy malfunction SNOMED: 287438636 (2) HTN (hypertension) ICD Codes: I10 - Essential (primary) hypertension SNOMED: 63920214 (3) Seizure disorder ICD Codes: G40.909 - Epilepsy, unspecified, not intractable, without status epilepticus SNOMED: 462142680 (4) Hypothyroidism ICD Codes: E03.9 - Hypothyroidism, unspecified SNOMED: 28150362 (5) Chronic respiratory failure ICD Codes: J96.10 - Chronic respiratory failure, unspecified whether with hypoxia or hypercapnia SNOMED: 90382072 Status: stable, progressing Assessment/Plan: vent abx prn sx id gi f/u cbc bmp am Subjective Constitutional: Reports: weakness Allergies: Coded Allergies: PEANUT (Verified Allergy, Unknown, 09/22/16) All Systems: reviewed and negative except above Subjective trach vent altered Objective Last 24 Hour Vital Signs Date Time Temp Pulse Resp B/P (MAP) Pulse Ox O2 Delivery O2 Flow Rate FiO2 01/21/19 13:08 75 18 40 01/21/19 12:00 98.9 76 18 144/70 (94) 100 01/21/19 11:02 70 18 40 01/21/19 08:58 50 18 40 01/21/19 08:00 85 01/21/19 08:00 99.4 74 18 130/64 (86) 99 01/21/19 07:15 65 18 40 01/21/19 05:06 81 18 40 01/21/19 04:00 97.5 75 18 146/80 (102) 100 01/21/19 04:00 Mechanical Ventilator 01/21/19 04:00 40 01/21/19 03:33 55 01/21/19 03:07 69 18 40 01/21/19 01:13 80 18 40 01/21/19 00:00 98.9 72 18 116/51 (72) 94 01/21/19 00:00 Mechanical Ventilator 01/20/19 23:21 68 01/20/19 23:13 71 18 40 01/20/19 20:43 73 18 40 01/20/19 20:03 70 18 40 01/20/19 20:00 40 01/20/19 20:00 Mechanical Ventilator 01/20/19 20:00 97.7 66 18 112/53 (72) 98 01/20/19 19:03 54 01/20/19 17:23 63 18 40 01/20/19 16:15 40 01/20/19 16:01 Mechanical Ventilator 01/20/19 16:00 63 01/20/19 16:00 98.1 68 18 110/53 (72) 96 01/20/19 15:10 80 18 40 Intake and Output 01/20/19 01/21/19 19:00 07:00 Intake Total 75 ml 847.5 ml Output Total 300 ml 200 ml Balance -225 ml 647.5 ml IV Total 75 ml 847.5 ml Tube Feeding 0 ml 0 ml Output Urine Total 250 ml 50 ml Stool Total 50 ml 50 ml Chest Tube Drainage Total 100 ml # Voids 1 Laboratory Tests 01/21/19 04:10: White Blood Count 6.2, Red Blood Count 3.51L, Hemoglobin 12.2, Hematocrit 35.6L , Mean Corpuscular Volume 102H, Mean Corpuscular Hemoglobin 34.6H, Mean Corpuscular Hemoglobin Concent 34.1, Red Cell Distribution Width 14.1, Platelet Count 169, Mean Platelet Volume 10.2H, Neutrophils (%) (Auto) 71.5, Lymphocytes (%) (Auto) 15.9L, Monocytes (%) (Auto) 8.5, Eosinophils (%) (Auto) 3.4H, Basophils (%) (Auto) 0.7, Sodium Level 144, Potassium Level 3.1L, Chloride Level 111H, Carbon Dioxide Level 27, Anion Gap 7, Blood Urea Nitrogen 9, Creatinine 0.5L, Estimat Glomerular Filtration Rate , Glucose Level 114H, Hemoglobin A1c 4.8, Lactic Acid Level 1.00, Uric Acid 5.8, Calcium Level 9.3, Phosphorus Level 3.0, Magnesium Level 1.9, Ferritin 155, Total Bilirubin 0.4, Gamma Glutamyl Transpeptidase 403H, Aspartate Amino Transf (AST/SGOT) 30, Alanine Aminotransferase (ALT/SGPT) 23, Alkaline Phosphatase 185H, Troponin I 0.013, C-Reactive Protein, Quantitative 4.4H, Pro-B-Type Natriuretic Peptide 254H, Total Protein 7.9, Albumin 2.5L, Globulin 5.4, Albumin/Globulin Ratio 0.5L , Triglycerides Level 106, Cholesterol Level 153, LDL Cholesterol 77, HDL Cholesterol 59, Cholesterol/HDL Ratio 2.6L, Vitamin B12 Level 1578H, Folate 19.0 , Thyroid Stimulating Hormone (TSH) 5.490H Height (Feet): 5 Height (Inches): 4.00 Weight (Pounds): 224 General Appearance: lethargic EENT: normal ENT inspection Neck: normal alignment Cardiovascular: normal peripheral pulses, normal rate, regular rhythm Respiratory/Chest: chest wall non-tender, lungs clear, normal breath sounds Abdomen: normal bowel sounds, non tender, soft Extremities: normal inspection Edema: no edema noted Arm (L), no edema noted Arm (R), no edema noted Leg (L), no edema noted Leg (R), no edema noted Pedal (L), no edema noted Pedal (R), no edema noted Generalized Neurologic: motor weakness Skin: normal pigmentation, warm/dry Juaquin Ramos DO January 21, 2019 13:36
--- NOTE | 2019-01-21 14:20 | NUR ---
NURSE NOTES: DR HAN INSERT GTF ,UGANDAN # 22.PT TOLERATED WELL PROCEDURE.NO ACUTE DISTRESS NOTED AT THIS TIME.WILL CONT TO MONITOR.
--- NOTE | 2019-01-21 15:25 | Nephrology Progress Note ---
Assessment/Plan Problem List: (1) Malfunction of gastrostomy tube (2) Oliguria (3) Seizure disorder (4) Hypokalemia Assessment Chronic ventilator dependent respiratory failure with tracheostomy status G-tube malfunction with mild cellulitis Colon distention Dysphagia, feeding by G tube COPD Hypertension History of SC/STEMI Diabetes mellitus Anemic encephalopathy History of CVA Seizure disorder Electrolyte abnormality Hypothyroidism with elevated TSH Hypokalemia Hx of CHF with diastolic dysfunction 2nd degree AVB / Mobitz- type1 RBBB conduction disorder Plan Plan monitor renal parameters start IV fluid until GT route is maintained for feeding correct abnormal electrolytes check UA and c/s Subjective ROS Limited/Unobtainable: Yes Objective Objective Last 24 Hour Vital Signs Date Time Temp Pulse Resp B/P (MAP) Pulse Ox O2 Delivery O2 Flow Rate FiO2 01/21/19 13:08 75 18 40 01/21/19 12:00 98.9 76 18 144/70 (94) 100 01/21/19 11:02 70 18 40 01/21/19 08:58 50 18 40 01/21/19 08:00 85 01/21/19 08:00 99.4 74 18 130/64 (86) 99 01/21/19 07:15 65 18 40 01/21/19 05:06 81 18 40 01/21/19 04:00 97.5 75 18 146/80 (102) 100 01/21/19 04:00 Mechanical Ventilator 01/21/19 04:00 40 01/21/19 03:33 55 01/21/19 03:07 69 18 40 01/21/19 01:13 80 18 40 01/21/19 00:00 98.9 72 18 116/51 (72) 94 01/21/19 00:00 Mechanical Ventilator 01/20/19 23:21 68 01/20/19 23:13 71 18 40 01/20/19 20:43 73 18 40 01/20/19 20:03 70 18 40 01/20/19 20:00 40 01/20/19 20:00 Mechanical Ventilator 01/20/19 20:00 97.7 66 18 112/53 (72) 98 01/20/19 19:03 54 01/20/19 17:23 63 18 40 01/20/19 16:15 40 01/20/19 16:01 Mechanical Ventilator 01/20/19 16:00 63 01/20/19 16:00 98.1 68 18 110/53 (72) 96 Intake and Output 01/20/19 01/21/19 19:00 07:00 Intake Total 75 ml 847.5 ml Output Total 300 ml 200 ml Balance -225 ml 647.5 ml IV Total 75 ml 847.5 ml Tube Feeding 0 ml 0 ml Output Urine Total 250 ml 50 ml Stool Total 50 ml 50 ml Chest Tube Drainage Total 100 ml # Voids 1 Laboratory Tests 01/21/19 04:10: White Blood Count 6.2, Red Blood Count 3.51L, Hemoglobin 12.2, Hematocrit 35.6L , Mean Corpuscular Volume 102H, Mean Corpuscular Hemoglobin 34.6H, Mean Corpuscular Hemoglobin Concent 34.1, Red Cell Distribution Width 14.1, Platelet Count 169, Mean Platelet Volume 10.2H, Neutrophils (%) (Auto) 71.5, Lymphocytes (%) (Auto) 15.9L, Monocytes (%) (Auto) 8.5, Eosinophils (%) (Auto) 3.4H, Basophils (%) (Auto) 0.7, Sodium Level 144, Potassium Level 3.1L, Chloride Level 111H, Carbon Dioxide Level 27, Anion Gap 7, Blood Urea Nitrogen 9, Creatinine 0.5L, Estimat Glomerular Filtration Rate , Glucose Level 114H, Hemoglobin A1c 4.8, Lactic Acid Level 1.00, Uric Acid 5.8, Calcium Level 9.3, Phosphorus Level 3.0, Magnesium Level 1.9, Ferritin 155, Total Bilirubin 0.4, Gamma Glutamyl Transpeptidase 403H, Aspartate Amino Transf (AST/SGOT) 30, Alanine Aminotransferase (ALT/SGPT) 23, Alkaline Phosphatase 185H, Troponin I 0.013, C-Reactive Protein, Quantitative 4.4H, Pro-B-Type Natriuretic Peptide 254H, Total Protein 7.9, Albumin 2.5L, Globulin 5.4, Albumin/Globulin Ratio 0.5L , Triglycerides Level 106, Cholesterol Level 153, LDL Cholesterol 77, HDL Cholesterol 59, Cholesterol/HDL Ratio 2.6L, Vitamin B12 Level 1578H, Folate 19.0 , Thyroid Stimulating Hormone (TSH) 5.490H Height (Feet): 5 Height (Inches): 4.00 Weight (Pounds): 224 EENT: other - vented Respiratory/Chest: decreased breath sounds Abdomen: distended Fouladian,Guero MD January 21, 2019 15:25
--- NOTE | 2019-01-21 15:39 | NUR ---
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 G-TUBE SITE CELLULITIS . ABD WALL CELLULITIS VS: BP 144/70, P 50, T 98.9, RR 18, SpO2 100 on VENT AC 18, TV 600, PEEP 5.0, FiO2 600 RBC 3.51, Hct 35.6, K 3.1, CR 0.5 CXR: Suspected mild CHF IS:POTASSIUM 100mlIVPB LEVETIRACETAM 110 ml IV DEXTROSE/NS x1L IV NOVOLOG SUBQ SDU STATUS
[2019-01-21 16:00] VITALS: BP 112/55
--- NOTE | 2019-01-21 18:53 | Cardiology Progress Note ---
Assessment/Plan Assessment/Plan avb mobitz 1 chronic respiratory failure hs of diastolic dysfunction rbbb conduction do tele personally reviewed avoid neg chronotropic agents for now ekg personally reviewed no sig pauses noted Subjective ROS Limited/Unobtainable: Yes Objective Last 24 Hour Vital Signs Date Time Temp Pulse Resp B/P (MAP) Pulse Ox O2 Delivery O2 Flow Rate FiO2 01/21/19 17:05 64 18 40 01/21/19 16:00 40 01/21/19 16:00 63 01/21/19 16:00 99.8 65 18 112/55 (74) 100 01/21/19 16:00 Mechanical Ventilator 01/21/19 15:26 63 18 40 01/21/19 13:08 75 18 40 01/21/19 12:00 98.9 76 18 144/70 (94) 100 01/21/19 12:00 40 01/21/19 12:00 54 01/21/19 12:00 Mechanical Ventilator 01/21/19 11:02 70 18 40 01/21/19 09:00 50 01/21/19 08:58 50 18 40 01/21/19 08:00 Mechanical Ventilator 01/21/19 08:00 40 01/21/19 08:00 85 01/21/19 08:00 54 01/21/19 08:00 99.4 74 18 130/64 (86) 99 01/21/19 07:15 65 18 40 01/21/19 05:06 81 18 40 01/21/19 04:00 97.5 75 18 146/80 (102) 100 01/21/19 04:00 Mechanical Ventilator 01/21/19 04:00 40 01/21/19 03:33 55 01/21/19 03:07 69 18 40 01/21/19 01:13 80 18 40 01/21/19 00:00 98.9 72 18 116/51 (72) 94 01/21/19 00:00 Mechanical Ventilator 01/20/19 23:21 68 01/20/19 23:13 71 18 40 01/20/19 20:43 73 18 40 01/20/19 20:03 70 18 40 01/20/19 20:00 40 01/20/19 20:00 Mechanical Ventilator 01/20/19 20:00 97.7 66 18 112/53 (72) 98 01/20/19 19:03 54 General Appearance: on vent, patient on isolation Neck: supple Cardiovascular: normal rate Respiratory/Chest: lungs clear Abdomen: normal bowel sounds, non tender, soft Extremities: no swelling Intake and Output 01/20/19 01/21/19 18:59 06:59 Intake Total 0 ml 847.5 ml Output Total 300 ml 200 ml Balance -300 ml 647.5 ml IV Total 847.5 ml Tube Feeding 0 ml 0 ml Output Urine Total 250 ml 50 ml Stool Total 50 ml 50 ml Chest Tube Drainage Total 100 ml # Voids 1 Laboratory Tests Test 01/21/19 04:10 White Blood Count 6.2 K/UL (4.8-10.8) Red Blood Count 3.51 M/UL (4.20-5.40) L Hemoglobin 12.2 G/DL (12.0-16.0) Hematocrit 35.6 % (37.0-47.0) L Mean Corpuscular Volume 102 FL (80-99) H Mean Corpuscular Hemoglobin 34.6 PG (27.0-31.0) H Mean Corpuscular Hemoglobin Concent 34.1 G/DL (32.0-36.0) Red Cell Distribution Width 14.1 % (11.6-14.8) Platelet Count 169 K/UL (150-450) Mean Platelet Volume 10.2 FL (6.5-10.1) H Neutrophils (%) (Auto) 71.5 % (45.0-75.0) Lymphocytes (%) (Auto) 15.9 % (20.0-45.0) L Monocytes (%) (Auto) 8.5 % (1.0-10.0) Eosinophils (%) (Auto) 3.4 % (0.0-3.0) H Basophils (%) (Auto) 0.7 % (0.0-2.0) Sodium Level 144 MMOL/L (136-145) Potassium Level 3.1 MMOL/L (3.5-5.1) L Chloride Level 111 MMOL/L (98-107) H Carbon Dioxide Level 27 MMOL/L (21-32) Anion Gap 7 mmol/L (5-15) Blood Urea Nitrogen 9 mg/dL (7-18) Creatinine 0.5 MG/DL (0.55-1.30) L Estimat Glomerular Filtration Rate mL/min (>60) Glucose Level 114 MG/DL (74-106) H Hemoglobin A1c 4.8 % (4.3-6.0) Lactic Acid Level 1.00 mmol/L (0.4-2.0) Uric Acid 5.8 MG/DL (2.6-7.2) Calcium Level 9.3 MG/DL (8.5-10.1) Phosphorus Level 3.0 MG/DL (2.5-4.9) Magnesium Level 1.9 MG/DL (1.8-2.4) Ferritin 155 NG/ML (8-388) Total Bilirubin 0.4 MG/DL (0.2-1.0) Gamma Glutamyl Transpeptidase 403 U/L (5-85) H Aspartate Amino Transf (AST/SGOT) 30 U/L (15-37) Alanine Aminotransferase (ALT/SGPT) 23 U/L (12-78) Alkaline Phosphatase 185 U/L (46-116) H Troponin I 0.013 ng/mL (0.000-0.056) C-Reactive Protein, Quantitative 4.4 mg/dL (0.00-0.90) H Pro-B-Type Natriuretic Peptide 254 pg/mL (0-125) H Total Protein 7.9 G/DL (6.4-8.2) Albumin 2.5 G/DL (3.4-5.0) L Globulin 5.4 g/dL Albumin/Globulin Ratio 0.5 (1.0-2.7) L Triglycerides Level 106 MG/DL (30-150) Cholesterol Level 153 MG/DL (< 200) LDL Cholesterol 77 mg/dL (<100) HDL Cholesterol 59 MG/DL (40-60) Cholesterol/HDL Ratio 2.6 (3.3-4.4) L Vitamin B12 Level 1578 PG/ML (193-986) H Folate 19.0 NG/ML (8.6-58.9) Thyroid Stimulating Hormone (TSH) 5.490 uiU/mL (0.358-3.740) Mathew Minor MD January 21, 2019 18:53
--- NOTE | 2019-01-21 18:58 | NUR ---
RESPIRATORY NOTE: Received pt on AC 18, 600VT, 40%, PEEP +5. Pt is trach dependent w/ a cuffed, Portex 8 tube. Pt obtunded, responds to stimuli. B/S torri. rhonchi, sxn small amounts of thin, frothy, pale-white secretions. Vent plugged into red outlet, ambubag & spare trach kit at bedside. Pt in no apparent distress at this time. Will continue plan of care.
--- NOTE | 2019-01-21 19:20 | NUR ---
HAND-OFF: Report given to .JOYCE GUERRERO.
--- NOTE | 2019-01-21 19:30 | NUR ---
NURSE NOTES: Received Pt is resting on the bed and able to open the eyes spontaneously. Trach to Vent dependent and setting with AC: 18, T: 600, P: 5, FiO2 40% ans SaO2 100%. Given oral and tracheal suction. Provided oral care. On G-tube feeding with Jevity 1.2 @40cc/hr running and no residual noted. G-tubed site dressing is clean and dry.on tele monitor with SR with 1st AVB and HR: 68's. On rectal tube and patent. On Newman cath and patent drainage well. IV site intact and no sign of infiltration noted. Changed position. No sign of seizure at this time. Placed fall and seizure precaution. Will continue to care plan.
--- NOTE | 2019-01-21 19:37 | Cardiology Report ---
APPROVED REPORT EKG Measurement Heart [id number] Sinus rhythm with 2nd degree AV block (Mobitz II) Right bundle branch block Abnormal ECG
[2019-01-21 20:00] VITALS: BP 112/58
[2019-01-21] MEDS: levETIRAcetam 500mg/5ml Liquid GT SCH (20:43)
[2019-01-21] MEDS ORDERED: levETIRAcetam 500mg/5ml Liquid NG SCH (21:00)
[2019-01-21] MEDS: Miralax 17gm pkt GT SCH (21:00)
[2019-01-22] VITALS: BP 118/55
[2019-01-22 04:00] VITALS: BP 105/60
[2019-01-22 05:36] LABS: EOSINOPHILS % (AUTO) 4.1 % (0.0-3.0); HEMATOCRIT 36.5 % (37.0-47.0); HEMOGLOBIN 12.2 G/DL (12.0-16.0); LYMPHOCYTES % (AUTO) 18.5 % (20.0-45.0); MEAN CORPUSCULAR VOLUME 102 FL (80-99); MONOCYTES % (AUTO) 8.8 % (1.0-10.0); NEUTROPHILS % (AUTO) 67.6 % (45.0-75.0); PLATELET COUNT 153 K/UL (150-450); RED CELL DISTRIBUTION WIDTH 13.8 % (11.6-14.8); WHITE BLOOD COUNT 6.7 K/UL (4.8-10.8)
[2019-01-22] MEDS: NovoLOG Insulin Flexpen SUBQ SCH ×3 (05:47→11:49)
[2019-01-22] MEDS: Cephalexin 500mg cap GT SCH ×2 (05:47→11:44)
[2019-01-22 06:06] LABS: ANION GAP 9 mmol/L (5-15); BLOOD UREA NITROGEN 9 mg/dL (7-18); CALCIUM 9.5 MG/DL (8.5-10.1); CARBON DIOXIDE 24 MMOL/L (21-32); CHLORIDE 110 MMOL/L (98-107); CREATININE 0.6 MG/DL (0.55-1.30); POTASSIUM 3.3 MMOL/L (3.5-5.1); SODIUM 143 MMOL/L (136-145)
--- NOTE | 2019-01-22 06:50 | NUR ---
RESPIRATORY NOTE: Received pt on AC 18-600ml, 40%, PEEP +5. Pt is trach-dependent with cuffed, Portex 8, secured with trach tie and trach guard. B/S torri. rhonchi, sxn small amounts of thin frothy white yellow secretions without incidents. Alarms are set and audible, vent plugged into red outlet, ambubag & spare trach kit at bedside, vent circuits and suction tube are secured and out of the way. Pt is resting comfortably in bed, in no apparent distress at this time. Will continue to monitor.
--- NOTE | 2019-01-22 07:27 | NUR ---
HAND-OFF: Report given to CESAR Silva. Pt is resting on the bed and no sign of acute distress noted. Addendum: 01/22/19 at 6958 by JOYCE LIN RN RN charting error
--- NOTE | 2019-01-22 07:27 | NUR ---
HAND-OFF: Report given to Trista Crawley. Pt is resting on the bed and no sgin of acute distrss noted. Tolerated well with current Vent setting.
--- NOTE | 2019-01-22 07:29 | NUR ---
NURSE NOTES: received patient from CESAR Falcon. patient is sleeping. no signs and symptoms of distress. Her vent settings are as follows: Portex: 8, AC: 18, TV: 600, FiO2: 40%, PEEP: 5. GTube is patent and intact, current feeding is at 50 ml/hr. rectal tube is connected to bag with output. Newman catheter is patent and intact, and draining. Skin alterations noted. IV site is on left hand 22 gauge and right hand 24 gauge, patent and asymptomatic of redness or tenderness. currently running D5NS at 50 ml/hr. bed in lowest position and locked, padded siderails up X3, call light within reach. will continue to monitor.
--- NOTE | 2019-01-22 07:48 | NUR ---
NURSE NOTES: informed MD of patient's potassium level of 3.3. awaiting callback.
[2019-01-22 08:00] VITALS: BP 110/60
[2019-01-22] MEDS: Heparin 5000 units/ml inj SUBQ SCH (08:59)
[2019-01-22] MEDS: levETIRAcetam 500mg/5ml Liquid GT SCH (08:59)
--- NOTE | 2019-01-22 09:41 | GI Progress Note ---
Assessment/Plan Problems: (1) G-tube site cellulitis ICD Codes: K94.22 - Gastrostomy infection; L03.319 - Cellulitis of trunk, unspecified SNOMED: 268326812, 233984396 (2) Malfunction of gastrostomy tube ICD Codes: K94.23 - Gastrostomy malfunction SNOMED: 298049126 (3) Colon distention ICD Codes: K63.89 - Other specified diseases of intestine SNOMED: 394644390 (4) Electrolyte imbalance ICD Codes: E87.8 - Other disorders of electrolyte and fluid balance, not elsewhere classified SNOMED: 324410472 (5) Anemia ICD Codes: D64.9 - Anemia, unspecified SNOMED: 506407372 (6) Abdominal wall cellulitis ICD Codes: L03.311 - Cellulitis of abdominal wall SNOMED: 32046421 Status: stable Status Narrative Discussed with Dr. Cardenas. Assessment/Plan New G-tube was sutured in by surgery GTF running GT site care per wound recs ppi electrolyte correction follow labs DC planning The patient was seen and examined at bedside and all new and available data was reviewed in the patients chart. I agree with the above findings, impression and plan. (Patient seen earlier today. Signature stamp does not reflect patient encounter time.). - Wilmer Cardenas MD Subjective Subjective Limited Objective Last 24 Hour Vital Signs Date Time Temp Pulse Resp B/P (MAP) Pulse Ox O2 Delivery O2 Flow Rate FiO2 01/22/19 08:32 68 20 40 01/22/19 08:00 40 01/22/19 08:00 61 01/22/19 08:00 98.4 61 18 110/60 (77) 98 01/22/19 08:00 Mechanical Ventilator 01/22/19 06:50 65 18 40 01/22/19 05:19 66 18 40 01/22/19 04:00 98.1 63 18 105/60 (75) 100 01/22/19 04:00 88 01/22/19 04:00 40 01/22/19 04:00 Mechanical Ventilator 01/22/19 03:03 64 18 40 01/22/19 00:49 66 17 40 01/22/19 00:00 Mechanical Ventilator 01/22/19 00:00 98.2 70 18 118/55 (76) 100 01/22/19 00:00 63 5/20/19 22:55 81 18 40 01/21/19 21:09 63 18 40 01/21/19 20:00 98.1 70 18 112/58 (76) 100 01/21/19 20:00 40 01/21/19 20:00 Mechanical Ventilator 01/21/19 20:00 69 01/21/19 18:56 71 18 40 01/21/19 17:05 64 18 40 01/21/19 16:00 40 01/21/19 16:00 63 01/21/19 16:00 99.8 65 18 112/55 (74) 100 01/21/19 16:00 Mechanical Ventilator 01/21/19 15:26 63 18 40 01/21/19 13:08 75 18 40 01/21/19 12:00 98.9 76 18 144/70 (94) 100 01/21/19 12:00 40 01/21/19 12:00 54 01/21/19 12:00 Mechanical Ventilator 01/21/19 11:02 70 18 40 Intake and Output 01/21/19 01/22/19 19:00 07:00 Intake Total 280 ml 958 ml Output Total 600 ml 800 ml Balance -320 ml 158 ml Intake Free Water 100 ml IV Total 50 ml 508 ml Tube Feeding 130 ml 450 ml Output Urine Total 450 ml 400 ml Stool Total 150 ml 400 ml Laboratory Tests Test 01/22/19 04:07 White Blood Count 6.7 K/UL (4.8-10.8) Red Blood Count 3.60 M/UL (4.20-5.40) L Hemoglobin 12.2 G/DL (12.0-16.0) Hematocrit 36.5 % (37.0-47.0) L Mean Corpuscular Volume 102 FL (80-99) H Mean Corpuscular Hemoglobin 33.8 PG (27.0-31.0) H Mean Corpuscular Hemoglobin Concent 33.3 G/DL (32.0-36.0) Red Cell Distribution Width 13.8 % (11.6-14.8) Platelet Count 153 K/UL (150-450) Mean Platelet Volume 9.3 FL (6.5-10.1) Neutrophils (%) (Auto) 67.6 % (45.0-75.0) Lymphocytes (%) (Auto) 18.5 % (20.0-45.0) L Monocytes (%) (Auto) 8.8 % (1.0-10.0) Eosinophils (%) (Auto) 4.1 % (0.0-3.0) H Basophils (%) (Auto) 1.0 % (0.0-2.0) Sodium Level 143 MMOL/L (136-145) Potassium Level 3.3 MMOL/L (3.5-5.1) L Chloride Level 110 MMOL/L (98-107) H Carbon Dioxide Level 24 MMOL/L (21-32) Anion Gap 9 mmol/L (5-15) Blood Urea Nitrogen 9 mg/dL (7-18) Creatinine 0.6 MG/DL (0.55-1.30) Estimat Glomerular Filtration Rate mL/min (>60) Glucose Level 109 MG/DL (74-106) H Calcium Level 9.5 MG/DL (8.5-10.1) Height (Feet): 5 Height (Inches): 4.00 Weight (Pounds): 224 General Appearance: no apparent distress Cardiovascular: normal rate Respiratory/Chest: normal breath sounds, no respiratory distress Abdominal Exam: normal bowel sounds, non tender, soft, GT site - Minimal amounts of drainage Extremities: normal range of motion, non-tender Valerie Salcedo NP January 22, 2019 09:41
[2019-01-22 10:30] LABS: PHOSPHORUS 3.1 MG/DL (2.5-4.9)
--- NOTE | 2019-01-22 10:56 | Pulmonolgy Critical Care Note ---
Critical Care - Asmt/Plan Problems: (1) Abdominal wall cellulitis (2) Chronic respiratory failure (3) Malfunction of gastrostomy tube (4) Colon distention (5) HTN (hypertension) (6) Seizure disorder (7) Hypothyroidism (8) Status post tracheostomy (9) Anoxic brain damage syndrome (10) Vegetative state Respiratory: monitor respiratory rate, adjust FIO2, CXR Cardiac: continue pressors, continue to monitor HR/BP Renal: F/U I&O, check electrolytes Infectious Disease: check cultures Gastrointestinal: continue feedings/current rate Endocrine: monitor blood sugar, check HgA1C Hematologic: monitor H/H, transfuse if hgb<8.5 Neurologic: keep patient comfortable Prophylaxis: Protonix 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: 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, 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 Discussed with: nurses, 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, 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 - Objective Last 24 Hour Vital Signs Date Time Temp Pulse Resp B/P (MAP) Pulse Ox O2 Delivery O2 Flow Rate FiO2 01/22/19 08:32 68 20 40 01/22/19 08:00 40 01/22/19 08:00 61 01/22/19 08:00 98.4 61 18 110/60 (77) 98 01/22/19 08:00 Mechanical Ventilator 01/22/19 06:50 65 18 40 01/22/19 05:19 66 18 40 01/22/19 04:00 98.1 63 18 105/60 (75) 100 01/22/19 04:00 88 01/22/19 04:00 40 01/22/19 04:00 Mechanical Ventilator 01/22/19 03:03 64 18 40 01/22/19 00:49 66 17 40 01/22/19 00:00 Mechanical Ventilator 01/22/19 00:00 98.2 70 18 118/55 (76) 100 01/22/19 00:00 63 01/21/19 22:55 81 18 40 01/21/19 21:09 63 18 40 01/21/19 20:00 98.1 70 18 112/58 (76) 100 01/21/19 20:00 40 01/21/19 20:00 Mechanical Ventilator 01/21/19 20:00 69 01/21/19 18:56 71 18 40 01/21/19 17:05 64 18 40 01/21/19 16:00 40 01/21/19 16:00 63 01/21/19 16:00 99.8 65 18 112/55 (74) 100 01/21/19 16:00 Mechanical Ventilator 01/21/19 15:26 63 18 40 01/21/19 13:08 75 18 40 01/21/19 12:00 98.9 76 18 144/70 (94) 100 01/21/19 12:00 40 01/21/19 12:00 54 01/21/19 12:00 Mechanical Ventilator 01/21/19 11:02 70 18 40 Status: awake Condition: improving HEENT: normocephalic Neck: full ROM Lungs: clear Heart: HR/BP stable, HR/BP unstable, regular Abdomen: soft, non-tender Decubiti: location Accucheck: 120 Critical Care - Subjective FI02: 40 Vent Support Breath Rate: 18 Vent Support Mode: AC Vent Tidal Volume: 600 Sputum Amount: Moderate PEEP: 5.0 PIP: 28 Tube Feeding Amount: 50 I&O: Intake and Output 01/21/19 01/22/19 19:00 07:00 Intake Total 280 ml 958 ml Output Total 600 ml 800 ml Balance -320 ml 158 ml Intake Free Water 100 ml IV Total 50 ml 508 ml Tube Feeding 130 ml 450 ml Output Urine Total 450 ml 400 ml Stool Total 150 ml 400 ml CXR: no change Labs: Laboratory Tests Test 01/22/19 04:04 01/22/19 04:07 Phosphorus Level 3.1 MG/DL (2.5-4.9) Magnesium Level 2.0 MG/DL (1.8-2.4) White Blood Count 6.7 K/UL (4.8-10.8) Red Blood Count 3.60 M/UL (4.20-5.40) L Hemoglobin 12.2 G/DL (12.0-16.0) Hematocrit 36.5 % (37.0-47.0) L Mean Corpuscular Volume 102 FL (80-99) H Mean Corpuscular Hemoglobin 33.8 PG (27.0-31.0) H Mean Corpuscular Hemoglobin Concent 33.3 G/DL (32.0-36.0) Red Cell Distribution Width 13.8 % (11.6-14.8) Platelet Count 153 K/UL (150-450) Mean Platelet Volume 9.3 FL (6.5-10.1) Neutrophils (%) (Auto) 67.6 % (45.0-75.0) Lymphocytes (%) (Auto) 18.5 % (20.0-45.0) L Monocytes (%) (Auto) 8.8 % (1.0-10.0) Eosinophils (%) (Auto) 4.1 % (0.0-3.0) H Basophils (%) (Auto) 1.0 % (0.0-2.0) Sodium Level 143 MMOL/L (136-145) Potassium Level 3.3 MMOL/L (3.5-5.1) L Chloride Level 110 MMOL/L (98-107) H Carbon Dioxide Level 24 MMOL/L (21-32) Anion Gap 9 mmol/L (5-15) Blood Urea Nitrogen 9 mg/dL (7-18) Creatinine 0.6 MG/DL (0.55-1.30) Estimat Glomerular Filtration Rate mL/min (>60) Glucose Level 109 MG/DL (74-106) H Calcium Level 9.5 MG/DL (8.5-10.1) Savi Rodriguez MD January 22, 2019 10:55
[2019-01-22 12:00] VITALS: BP 137/75
--- NOTE | 2019-01-22 12:31 | Nephrology Progress Note ---
Assessment/Plan Problem List: (1) Malfunction of gastrostomy tube (2) Oliguria (3) Seizure disorder (4) Hypokalemia Assessment Chronic ventilator dependent respiratory failure with tracheostomy status G-tube malfunction with mild cellulitis Colon distention Dysphagia, feeding by G tube COPD Hypertension History of DE/STEMI Diabetes mellitus Anemic encephalopathy History of CVA Seizure disorder Electrolyte abnormality Hypothyroidism with elevated TSH Hypokalemia Hx of CHF with diastolic dysfunction 2nd degree AVB / Mobitz- type1 RBBB conduction disorder Plan Plan monitor renal parameters DC IV fluids correct abnormal electrolytes check UA and c/s ? DC planning Subjective ROS Limited/Unobtainable: Yes Objective Objective Last 24 Hour Vital Signs Date Time Temp Pulse Resp B/P (MAP) Pulse Ox O2 Delivery O2 Flow Rate FiO2 01/22/19 11:09 72 18 40 01/22/19 08:32 68 20 40 01/22/19 08:00 40 01/22/19 08:00 61 01/22/19 08:00 98.4 61 18 110/60 (77) 98 01/22/19 08:00 Mechanical Ventilator 01/22/19 06:50 65 18 40 01/22/19 05:19 66 18 40 01/22/19 04:00 98.1 63 18 105/60 (75) 100 01/22/19 04:00 88 01/22/19 04:00 40 01/22/19 04:00 Mechanical Ventilator 01/22/19 03:03 64 18 40 01/22/19 00:49 66 17 40 01/22/19 00:00 Mechanical Ventilator 01/22/19 00:00 98.2 70 18 118/55 (76) 100 01/22/19 00:00 63 01/21/19 22:55 81 18 40 01/21/19 21:09 63 18 40 01/21/19 20:00 98.1 70 18 112/58 (76) 100 01/21/19 20:00 40 01/21/19 20:00 Mechanical Ventilator 01/21/19 20:00 69 01/21/19 18:56 71 18 40 01/21/19 17:05 64 18 40 01/21/19 16:00 40 01/21/19 16:00 63 01/21/19 16:00 99.8 65 18 112/55 (74) 100 01/21/19 16:00 Mechanical Ventilator 01/21/19 15:26 63 18 40 01/21/19 13:08 75 18 40 Intake and Output 01/21/19 01/22/19 19:00 07:00 Intake Total 280 ml 958 ml Output Total 600 ml 800 ml Balance -320 ml 158 ml Intake Free Water 100 ml IV Total 50 ml 508 ml Tube Feeding 130 ml 450 ml Output Urine Total 450 ml 400 ml Stool Total 150 ml 400 ml Laboratory Tests 01/22/19 04:04: Phosphorus Level 3.1, Magnesium Level 2.0 01/22/19 04:07: White Blood Count 6.7, Red Blood Count 3.60L, Hemoglobin 12.2, Hematocrit 36.5L , Mean Corpuscular Volume 102H, Mean Corpuscular Hemoglobin 33.8H, Mean Corpuscular Hemoglobin Concent 33.3, Red Cell Distribution Width 13.8, Platelet Count 153, Mean Platelet Volume 9.3, Neutrophils (%) (Auto) 67.6, Lymphocytes (% ) (Auto) 18.5L, Monocytes (%) (Auto) 8.8, Eosinophils (%) (Auto) 4.1H, Basophils (%) (Auto) 1.0, Sodium Level 143, Potassium Level 3.3L, Chloride Level 110H, Carbon Dioxide Level 24, Anion Gap 9, Blood Urea Nitrogen 9, Creatinine 0.6, Estimat Glomerular Filtration Rate , Glucose Level 109H, Calcium Level 9.5 Height (Feet): 5 Height (Inches): 4.00 Weight (Pounds): 224 EENT: other - trach Respiratory/Chest: decreased breath sounds Abdomen: other - PEG , functional Guero Hernandez MD January 22, 2019 12:31
--- NOTE | 2019-01-22 12:47 | General Progress Note ---
Assessment/Plan Problem List: (1) Malfunction of gastrostomy tube ICD Codes: K94.23 - Gastrostomy malfunction SNOMED: 407944343 (2) HTN (hypertension) ICD Codes: I10 - Essential (primary) hypertension SNOMED: 45983117 (3) Seizure disorder ICD Codes: G40.909 - Epilepsy, unspecified, not intractable, without status epilepticus SNOMED: 915955565 (4) Hypothyroidism ICD Codes: E03.9 - Hypothyroidism, unspecified SNOMED: 03607187 (5) Chronic respiratory failure ICD Codes: J96.10 - Chronic respiratory failure, unspecified whether with hypoxia or hypercapnia SNOMED: 48161540 Status: stable, progressing Assessment/Plan: vent abx prn sx id gi f/u dc if clear Subjective Constitutional: Reports: weakness Allergies: Coded Allergies: PEANUT (Verified Allergy, Unknown, 09/22/16) All Systems: reviewed and negative except above Subjective trach vent altered Objective Last 24 Hour Vital Signs Date Time Temp Pulse Resp B/P (MAP) Pulse Ox O2 Delivery O2 Flow Rate FiO2 01/22/19 12:00 98.9 84 16 137/75 (95) 98 01/22/19 12:00 Mechanical Ventilator 01/22/19 12:00 40 01/22/19 11:09 72 18 40 01/22/19 08:32 68 20 40 01/22/19 08:00 40 01/22/19 08:00 61 01/22/19 08:00 98.4 61 18 110/60 (77) 98 01/22/19 08:00 Mechanical Ventilator 01/22/19 06:50 65 18 40 01/22/19 05:19 66 18 40 01/22/19 04:00 98.1 63 18 105/60 (75) 100 01/22/19 04:00 88 01/22/19 04:00 40 01/22/19 04:00 Mechanical Ventilator 01/22/19 03:03 64 18 40 01/22/19 00:49 66 17 40 01/22/19 00:00 Mechanical Ventilator 01/22/19 00:00 98.2 70 18 118/55 (76) 100 01/22/19 00:00 63 01/21/19 22:55 81 18 40 01/21/19 21:09 63 18 40 01/21/19 20:00 98.1 70 18 112/58 (76) 100 01/21/19 20:00 40 01/21/19 20:00 Mechanical Ventilator 01/21/19 20:00 69 01/21/19 18:56 71 18 40 01/21/19 17:05 64 18 40 01/21/19 16:00 40 01/21/19 16:00 63 01/21/19 16:00 99.8 65 18 112/55 (74) 100 01/21/19 16:00 Mechanical Ventilator 01/21/19 15:26 63 18 40 01/21/19 13:08 75 18 40 Intake and Output 01/21/19 01/22/19 19:00 07:00 Intake Total 280 ml 958 ml Output Total 600 ml 800 ml Balance -320 ml 158 ml Intake Free Water 100 ml IV Total 50 ml 508 ml Tube Feeding 130 ml 450 ml Output Urine Total 450 ml 400 ml Stool Total 150 ml 400 ml Laboratory Tests 01/22/19 04:04: Phosphorus Level 3.1, Magnesium Level 2.0 01/22/19 04:07: White Blood Count 6.7, Red Blood Count 3.60L, Hemoglobin 12.2, Hematocrit 36.5L , Mean Corpuscular Volume 102H, Mean Corpuscular Hemoglobin 33.8H, Mean Corpuscular Hemoglobin Concent 33.3, Red Cell Distribution Width 13.8, Platelet Count 153, Mean Platelet Volume 9.3, Neutrophils (%) (Auto) 67.6, Lymphocytes (% ) (Auto) 18.5L, Monocytes (%) (Auto) 8.8, Eosinophils (%) (Auto) 4.1H, Basophils (%) (Auto) 1.0, Sodium Level 143, Potassium Level 3.3L, Chloride Level 110H, Carbon Dioxide Level 24, Anion Gap 9, Blood Urea Nitrogen 9, Creatinine 0.6, Estimat Glomerular Filtration Rate , Glucose Level 109H, Calcium Level 9.5 Height (Feet): 5 Height (Inches): 4.00 Weight (Pounds): 224 General Appearance: lethargic EENT: normal ENT inspection Neck: normal alignment Cardiovascular: normal peripheral pulses, normal rate, regular rhythm Respiratory/Chest: chest wall non-tender, lungs clear, normal breath sounds Abdomen: normal bowel sounds, non tender, soft Extremities: normal inspection Edema: no edema noted Arm (L), no edema noted Arm (R), no edema noted Leg (L), no edema noted Leg (R), no edema noted Pedal (L), no edema noted Pedal (R), no edema noted Generalized Neurologic: motor weakness Skin: normal pigmentation, warm/dry Juaquin Ramos DO January 22, 2019 12:47
--- NOTE | 2019-01-22 14:18 | NUR ---
RD ASSESSMENT & RECOMMENDATIONS SEE CARE ACTIVITY FOR COMPLETE ASSESSMENT DAILY ESTIMATED NEEDS: Needs based on Obese, wound, critical care 66.4kg adj 20-25 kcals/kg 1629-4227 total kcals 1.25-2 g protein/kg 83-133 g total protein 20-25 ml/kcal mL/kg 8305-5116 total fluid mLs NUTRITION DIAGNOSIS: 1) Increased protein needs r/t wound healing as evidenced by pt w/ sacral/ buttock partial thickness wound. 2) Swallowing difficulty R/T respiratory status as evidenced by pt trach-vent dep, GT dep. CURRENT TF:Jevity 1.2 @62ml/hr x22 hrs + Prosource x1 daily ENTERAL NUTRITION RECOMMENDATIONS: Jevity 1.2 @62ml/hr x22 hrs + Prosource x1 daily to provide 1364ml, 1637kcal, 76g +11g prot, 1101ml free water * Maintain current TF + Prosource 1pkt daily * Water flush per MD/ HOB over 30 degrees * HOLD 1 hr before and after synthroid meds ADDITIONAL RECOMMENDATIONS: * RE-calibrated bed scale weights for accurate CBW * Monitor lytes, replete as needed (low K) * Monitor BGs closely, need for carb controlled formula * CONSULT RD IF SEIZURE MEDS CHANGE TO DILANTIN -> TF RATE WILL NEED TO BE ADJUSTED TO MEET EST NEEDS * WOUND CARE: add PHOEBE BID + Vit C 250mg daily * Add probiotics- diarrhea
--- NOTE | 2019-01-22 14:43 | Surgery Progress Note ---
Surgery Progress Note Subjective Additional Comments new 24f g tube placed yesterday. no n/v/f/c. exam stable wound improving Objective Last 24 Hour Vital Signs Date Time Temp Pulse Resp B/P (MAP) Pulse Ox O2 Delivery O2 Flow Rate FiO2 01/22/19 14:14 66 18 99 Mechanical Ventilator 40 01/22/19 12:38 71 18 40 01/22/19 12:00 98.9 84 16 137/75 (95) 98 01/22/19 12:00 Mechanical Ventilator 01/22/19 12:00 40 01/22/19 11:09 72 18 40 01/22/19 08:32 68 20 40 01/22/19 08:00 40 01/22/19 08:00 61 01/22/19 08:00 98.4 61 18 110/60 (77) 98 01/22/19 08:00 Mechanical Ventilator 01/22/19 06:50 65 18 40 01/22/19 05:19 66 18 40 01/22/19 04:00 98.1 63 18 105/60 (75) 100 01/22/19 04:00 88 01/22/19 04:00 40 01/22/19 04:00 Mechanical Ventilator 01/22/19 03:03 64 18 40 01/22/19 00:49 66 17 40 01/22/19 00:00 Mechanical Ventilator 01/22/19 00:00 98.2 70 18 118/55 (76) 100 01/22/19 00:00 63 01/21/19 22:55 81 18 40 01/21/19 21:09 63 18 40 01/21/19 20:00 98.1 70 18 112/58 (76) 100 01/21/19 20:00 40 01/21/19 20:00 Mechanical Ventilator 01/21/19 20:00 69 01/21/19 18:56 71 18 40 01/21/19 17:05 64 18 40 01/21/19 16:00 40 01/21/19 16:00 63 01/21/19 16:00 99.8 65 18 112/55 (74) 100 01/21/19 16:00 Mechanical Ventilator 01/21/19 15:26 63 18 40 I&O Intake and Output 01/21/19 01/22/19 19:00 07:00 Intake Total 280 ml 958 ml Output Total 600 ml 800 ml Balance -320 ml 158 ml Intake Free Water 100 ml IV Total 50 ml 508 ml Tube Feeding 130 ml 450 ml Output Urine Total 450 ml 400 ml Stool Total 150 ml 400 ml Dressing: saturated Wound: clean Drains: other Cardiovascular: RSR Respiratory: decreased breath sounds Abdomen: soft, non-tender, present bowel sounds, other, non-distended Extremities: no tenderness, no cyanosis Laboratory Tests Test 01/22/19 04:04 01/22/19 04:07 Phosphorus Level 3.1 MG/DL (2.5-4.9) Magnesium Level 2.0 MG/DL (1.8-2.4) White Blood Count 6.7 K/UL (4.8-10.8) Red Blood Count 3.60 M/UL (4.20-5.40) L Hemoglobin 12.2 G/DL (12.0-16.0) Hematocrit 36.5 % (37.0-47.0) L Mean Corpuscular Volume 102 FL (80-99) H Mean Corpuscular Hemoglobin 33.8 PG (27.0-31.0) H Mean Corpuscular Hemoglobin Concent 33.3 G/DL (32.0-36.0) Red Cell Distribution Width 13.8 % (11.6-14.8) Platelet Count 153 K/UL (150-450) Mean Platelet Volume 9.3 FL (6.5-10.1) Neutrophils (%) (Auto) 67.6 % (45.0-75.0) Lymphocytes (%) (Auto) 18.5 % (20.0-45.0) L Monocytes (%) (Auto) 8.8 % (1.0-10.0) Eosinophils (%) (Auto) 4.1 % (0.0-3.0) H Basophils (%) (Auto) 1.0 % (0.0-2.0) Sodium Level 143 MMOL/L (136-145) Potassium Level 3.3 MMOL/L (3.5-5.1) L Chloride Level 110 MMOL/L (98-107) H Carbon Dioxide Level 24 MMOL/L (21-32) Anion Gap 9 mmol/L (5-15) Blood Urea Nitrogen 9 mg/dL (7-18) Creatinine 0.6 MG/DL (0.55-1.30) Estimat Glomerular Filtration Rate mL/min (>60) Glucose Level 109 MG/DL (74-106) H Calcium Level 9.5 MG/DL (8.5-10.1) Plan Problems: (1) Abdominal wall cellulitis Assessment & Plan: Patient has developed abdominal wall cellulitis around G tube site g tube evaluated and dislodged with balloon in abdominal wall soft tissue g tube removed at bedside. balloon deflated. tube has good track but wide given dislodged with balloon inflated tube changed to 24f new tube and functional now okay to use tube for now appreciate GI input d/c planning (2) G-tube site cellulitis Assessment & Plan: as above (3) Colon distention Assessment & Plan: KUB: Gastrostomy noted. The tip is not well seen but there is contrast in the fundus of the stomach. The position of the gastrostomy is not adequately elucidated on this exam. Patient has a chronically and massively distended sigmoid colon. Previous CT showed no evidence of volvulus. There is nonvisualization of the lower part of the abdomen and pelvis which was not imaged. There is contrast within the left hemicolon and transverse colon. unsure what contrast in colon is from and how long it has been there recommend follow up CT ordered will follow with recs (4) Malfunction of gastrostomy tube Heath Martell January 22, 2019 14:43
--- NOTE | 2019-01-22 14:56 | NUR ---
NURSE NOTES: report given to Amalia at [facility]. all questions answered. informed patient's daughter, Samir, that patient is for discharge.
--- NOTE | 2019-01-22 15:58 | NUR ---
*-* INSURANCE *-* CLINICALS AND REVIEWS HAVE BEEN FAXED TO: YESSI:MAXIMO P:[phone] F:[phone]
--- NOTE | 2019-01-22 17:13 | Infectious Diseases Prog Note ---
Assessment/Plan Assessment/Plan Abx: IV Vancomycin 01/17- Cefepime 01/17- Assessment: GT malfunction and surrounding mild cellulitis; cellulitis resolved Afebrile No leukocytosis -01/19 CXR: Suspected pulmonary vascular congestion/interstitial edema. Correlate clinically. No change compared to the prior study -CT abd/p: Moderate retention of feces within the colon with a liquefied stool , sign of diarrhea. Correlate clinically Gastrostomy tube with the tip projected over the region of the pylorus. Small umbilical hernia containing fat. Atherosclerotic disease. Hypodensity in the left kidney may be cystic but not adequately evaluated. Calcification in the cystic liver nonspecific. Basilar atelectasis -sp cx GGS, PSA (patel S), ESBL K. pna (S Cipro/levo, Zosyn); colonizers hx of recent sepsis 2ry to UTI 10/2018 UCx - Ecoli Chronic resp failure trach/vent dependant Dementia non-verbal COPD CAD/STEMI CHF Seizure disorder HTN CVA dysphagia s/p PEG [facility] resident Plan: -D/c PO Keflex #5 (abx d #6/) and monitor off abx -01/18 SP Cefepime and IV Vancomycin #2 -10/14 SP Cefepime #7 - 10/10/18 SP Vancomycin #2 -f/u cx -Monitor CBC/CMP, temperatures -wound care per surgical team -GI, Sx f/u -PEG/Trach care -aspiration precautions Thank you for this consultation. Will continue to follow along with you. Discussed with RN. Subjective Allergies: Coded Allergies: PEANUT (Verified Allergy, Unknown, 09/22/16) Subjective afebrile no leukocytosis Objective Vital Signs Last 24 Hour Vital Signs Date Time Temp Pulse Resp B/P (MAP) Pulse Ox O2 Delivery O2 Flow Rate FiO2 01/22/19 16:51 62 19 40 01/22/19 16:00 Mechanical Ventilator 01/22/19 16:00 40 01/22/19 15:28 66 18 40 01/22/19 14:14 66 18 99 Mechanical Ventilator 40 01/22/19 12:38 71 18 40 01/22/19 12:00 98.9 84 16 137/75 (95) 98 01/22/19 12:00 75 01/22/19 12:00 Mechanical Ventilator 01/22/19 12:00 40 01/22/19 11:09 72 18 40 01/22/19 08:32 68 20 40 01/22/19 08:00 40 01/22/19 08:00 61 01/22/19 08:00 98.4 61 18 110/60 (77) 98 01/22/19 08:00 Mechanical Ventilator 01/22/19 06:50 65 18 40 01/22/19 05:19 66 18 40 01/22/19 04:00 98.1 63 18 105/60 (75) 100 01/22/19 04:00 88 01/22/19 04:00 40 01/22/19 04:00 Mechanical Ventilator 01/22/19 03:03 64 18 40 01/22/19 00:49 66 17 40 01/22/19 00:00 Mechanical Ventilator 01/22/19 00:00 98.2 70 18 118/55 (76) 100 01/22/19 00:00 63 01/21/19 22:55 81 18 40 01/21/19 21:09 63 18 40 01/21/19 20:00 98.1 70 18 112/58 (76) 100 01/21/19 20:00 40 01/21/19 20:00 Mechanical Ventilator 01/21/19 20:00 69 01/21/19 18:56 71 18 40 Height (Feet): 5 Height (Inches): 4.00 Weight (Pounds): 224 Objective General Appearance: no apparent distress Lines, tubes and drains: peripheral HEENT: mucous membranes moist Neck: normal inspection Respiratory/Chest: no respiratory distress, no accessory muscle use, decreased breath sounds Cardiovascular/Chest: normal rate Abdomen: soft, no organomegaly, no mass, distended, feeding tube - dislodged with balloon in abdominal wall tissue Extremities: other Skin Exam: other Neurologic: alert Laboratory Tests Test 01/22/19 04:04 01/22/19 04:07 Phosphorus Level 3.1 MG/DL (2.5-4.9) Magnesium Level 2.0 MG/DL (1.8-2.4) White Blood Count 6.7 K/UL (4.8-10.8) Red Blood Count 3.60 M/UL (4.20-5.40) L Hemoglobin 12.2 G/DL (12.0-16.0) Hematocrit 36.5 % (37.0-47.0) L Mean Corpuscular Volume 102 FL (80-99) H Mean Corpuscular Hemoglobin 33.8 PG (27.0-31.0) H Mean Corpuscular Hemoglobin Concent 33.3 G/DL (32.0-36.0) Red Cell Distribution Width 13.8 % (11.6-14.8) Platelet Count 153 K/UL (150-450) Mean Platelet Volume 9.3 FL (6.5-10.1) Neutrophils (%) (Auto) 67.6 % (45.0-75.0) Lymphocytes (%) (Auto) 18.5 % (20.0-45.0) L Monocytes (%) (Auto) 8.8 % (1.0-10.0) Eosinophils (%) (Auto) 4.1 % (0.0-3.0) H Basophils (%) (Auto) 1.0 % (0.0-2.0) Sodium Level 143 MMOL/L (136-145) Potassium Level 3.3 MMOL/L (3.5-5.1) L Chloride Level 110 MMOL/L (98-107) H Carbon Dioxide Level 24 MMOL/L (21-32) Anion Gap 9 mmol/L (5-15) Blood Urea Nitrogen 9 mg/dL (7-18) Creatinine 0.6 MG/DL (0.55-1.30) Estimat Glomerular Filtration Rate mL/min (>60) Glucose Level 109 MG/DL (74-106) H Calcium Level 9.5 MG/DL (8.5-10.1) Current Medications Medications (Trade) Dose Ordered Sig/Boubacar Route PRN Reason Start Time Stop Time Status Last Admin Dose Admin Acetaminophen (Tylenol) 650 mg Q4H PRN GT fever 01/20/19 14:00 02/16/19 14:45 01/22/19 16:17 Cephalexin (Keflex) 500 mg Q6HR GT 01/19/19 12:00 01/26/19 05:59 01/22/19 11:44 Dextrose (Dextrose 50%) 25 ml Q30M PRN IV Hypoglycemia 01/18/19 11:00 02/17/19 10:59 Dextrose (Dextrose 50%) 50 ml Q30M PRN IV Hypoglycemia 01/18/19 11:00 02/17/19 10:59 Heparin Sodium (Porcine) (Heparin 5000 units/ml) 5,000 units EVERY 12 HOURS SUBQ 01/17/19 21:00 02/16/19 20:59 01/22/19 08:59 Insulin Aspart (NovoLOG) Q6HR SUBQ 01/18/19 12:00 02/17/19 11:59 01/22/19 11:49 Letrozole (Femara) 2.5 mg DAILY ORAL 01/19/19 09:00 01/23/19 08:59 01/22/19 08:58 Levetiracetam (Keppra) 1,500 mg Q12HR GT 01/21/19 21:00 02/20/19 20:59 01/22/19 08:59 Levothyroxine Sodium (Synthroid) 100 mcg DAILY@0630 GT 01/21/19 06:30 02/17/19 06:29 01/22/19 05:47 Nitroglycerin (Ntg) 0.4 mg Q5M PRN SL Prn Chest Pain 01/17/19 14:47 02/16/19 14:46 Ondansetron HCl (Zofran) 4 mg Q6H PRN IVP Nausea & Vomiting 01/17/19 14:48 02/16/19 14:47 Polyethylene Glycol (Miralax) 17 gm BEDTIME GT 01/18/19 21:00 02/17/19 20:59 01/19/19 20:46 Polyethylene Glycol (Miralax) 17 gm DAILYPRN PRN ORAL Constipation 01/17/19 14:46 02/16/19 14:45 Promethazine HCl/ Codeine (Phenergan with Codeine) 5 ml Q4H PRN ORAL For Cough 01/17/19 14:47 02/16/19 14:46 Temazepam (Restoril) 15 mg HSPRN PRN ORAL Insomnia 01/17/19 21:00 01/24/19 20:59 Sadia Medeiros M.D. January 22, 2019 17:13
--- NOTE | 2019-01-22 18:14 | NUR ---
INTER-FACILITY TRANSFER: Patient transferred [facility], per [facility]. Report given to Kimberly [facility] unit [id number]. No belongings. Family notified of transfer.
--- NOTE | 2019-01-25 11:59 | Discharge Summary ---
Discharge Summary Discharge Summary _ DATE OF ADMISSION: 01/17/2019 DATE OF DISCHARGE: 01/22/2019 DISCHARGED BY: Dr Ramos REASON FOR ADMISSION: 78 years old female, resident of long-term facility, with past medical history of ventilator dependent respiratory failure, tracheostomy status, dysphagia, feeding by G-tube, COPD, diabetes mellitus, history of [place], encephalopathy, seizure disorder, was sent for evaluation due to erythema around G-tube site with concern of infection. Patient by herself was unable to provide any information , but nodded her head when she was asked if it hurt . Laboratory work-up revealed no leukocytosis, stable hemoglobin and hematocrit. Stable electrolytes and renal parameters. Albumin 2.7. Abdominal x-ray demonstrated chronically and massively distended sigmoid colon. Previous CT showed no evidence of volvulus. Gastrostomy tube position could not be confirmed. No obvious leak . Patient subsequently was admitted for further management. CONSULTANTS: trailer steerer Dr. Minor pulmonary Dr. Rodriguez ID specialist Dr. Madera GI specialist Dr. Cardenas power superintendent Dr. Hernandez surgery Dr. Martell [facility]: Patient admitted to [facility]. Patient started on empiric antibiotics. Ventilator support and tracheostomy care provided. Pulmonary toilet provided as needed. Baseline ABG was stable. Patient was continue on current ventilator settings. DVT prophylaxis provided. Patient started on empiric antibiotic as per ID specialist recommendation. CT of the abdomen and pelvis revealed moderate retention of feces within the colon with likely liquified stool/ sign of diarrhea. Gastrostomy tube with the tip projecting over the region of the pylorus. Sputum culture revealed Pseudomonas , Klebsiella pneumoniae ESBL and Strep group G. Per ID specialist, patient had G-tube malfunction with surrounding mild cellulitis. Cellulitis resolved with antibiotics. Patient remained afebrile , no leukocytosis . Sputum culture likely likely colonized. Patient completed oral Keflex for 5 days and prior had cefepime and Vancomycin for 2 days. ID specialist recommended to observe patient off antibiotics and monitor closely. Chest x-ray was repeated and showed pulmonary vascular congestion/interstitial edema. No change from prior study. Follow-up chest x-ray still revealed no change from the prior study. Press Tender [employer] followed . Patient demonstrated evidence of arteriovenous block on telemetry. Per trailer steerer, patient had Type 2 arteriovenous block, Mobitz type I . Patient also had history of diastolic dysfunction and right bundle chuck conduction disorder. Press Tender [employer] personally reviewed telemetry and recommended to avoid negative chronotropic agents. No significant pauses were noted. Previous echo in 2018 revealed preserved ejection fraction of 60%, right ventricular systolic pressure of 29. Lipid panel was stable. Per power superintendent, initially started IV fluids, were stopped. Renal parameters and electrolytes were closely monitored. Electrolytes corrected as needed. Nephrotoxins were avoided. GI specialist followed. KUB revealed chronically massively distended sigmoid colon. Rectal tube was placed for decompression. Bowel regimen instituted. Patient had bowel movement. Patient started on GI prophylaxis with PPI. Surgeon seen and evaluated patient per surgeon patient for abdominal wall cellulitis around G-tube site along. G-tube site was evaluated and dislodged with the balloon in abdominal wall soft tissue. G-tube was removed on the bedside. Balloon was deflated New 24 [place] G tube was placed. Surgery recommended to keep balloon deflated and keep tube in place with tape. Surgeon cleared to start feeding via new tube. G-tube site care provided. Strict aspiration precautions were maintained. Patient was able to tolerate tube feeding. Hepatitis panel was negative. AST and ALT stable, GGT 403. Patient clinically stabilized and was ready for transfer back to long-term facility for continuation of care Blood sugar was managed with sliding scale of insulin. Hemoglobin A1c 5.0. Blood pressure was stable without any antihypertensive medication regimen. TSH was elevated, and dose of Synthroid increased. Seizure precaution maintained. Keppra continued. No evidence of seizure activity while in the hospital. Supportive care provided. Pain management was addressed as needed Patient clinically stabilized and was ready for transfer back to long-term facility for continuation of care. FINAL DIAGNOSES: G-tube malfunction , s/p new G tube placement at the bedside G-tube site cellulitis Abdominal wall cellulitis Chronic ventilator dependent respiratory failure, tracheostomy status Colon distention Dysphagia, feeding by G-tube COPD Hypertension History of [place]/STEMI Diabetes mellitus Anoxic encephalopathy History of CVA Seizure disorder Electrolyte abnormality Hypothyroidism with elevated TSH History of CHF with diastolic dysfunction Second-degree AV block/Mobitz type I Right bundle branch block conduction disorder DISCHARGE MEDICATIONS: See Medication Reconciliation list. DISCHARGE INSTRUCTIONS: Patient was discharged to the long-term facility. Follow up with medical doctor at the facility. Libby Collins NP January 25, 2019 11:59
== END 2019-01-22 18:17 | DRG 394 ==
LOC: EDBD 13:32 → EMR 14:15 → 2W 14:45 → EDBEDREQ 15:59
PROC: 5A1955Z Respiratory Ventilation, Greater than 96 Consecutive Hours (ICD-10-PCS; principal; 2019-01-17)
PROC: 0D20XUZ Change Feeding Device in Upper Intestinal Tract, External Approach (ICD-10-PCS; 2019-01-19)
DX: K94.23 Gastrostomy malfunction (principal); J96.10 Chronic respiratory failure, unspecified whether with hypoxia or hypercapnia; G93.1 Anoxic brain damage, not elsewhere classified; R40.3 Persistent vegetative state; Z99.11 Dependence on respirator [ventilator] status; L03.311 Cellulitis of abdominal wall; I50.32 Chronic diastolic (congestive) heart failure; G82.20 Paraplegia, unspecified; K94.22 Gastrostomy infection; Z43.0 Encounter for attention to tracheostomy; I69.398 Other sequelae of cerebral infarction; K63.89 Other specified diseases of intestine; G40.909 Epilepsy, unspecified, not intractable, without status epilepticus; I10 Essential (primary) hypertension; E03.9 Hypothyroidism, unspecified; R13.10 Dysphagia, unspecified; I25.2 Old myocardial infarction; E11.9 Type 2 diabetes mellitus without complications; E87.6 Hypokalemia; I11.0 Hypertensive heart disease with heart failure; I44.1 Atrioventricular block, second degree; I45.10 Unspecified right bundle-branch block; I25.10 Atherosclerotic heart disease of native coronary artery without angina pectoris; J44.9 Chronic obstructive pulmonary disease, unspecified
CPT/HCPCS: 36415; 36600; 71045; 74018; 74176; 80048; 80053; 80061; 80069; 82607; 82728; 82746; 82803; 82977; 83036; 83605; 83690; 83735; 83880; 84100; 84443; 84484; 84550; 85025; 86140; 87070; 87081; 87181; 87205; 93005; 94002; 94003; 94664; 96365; 99285; J1815; J8499

== ENCOUNTER 2019-02-04 13:43 | Inpatient (IN) | payer MEDICARE, MEDICAID ==
[~2019-02-04] VITALS: Ht 162.6 cm; Wt 94.8 kg
[~2019-02-04 13:43] MED LIST changes: +CRANBERRY500 M4 GT
[2019-02-04 13:44] VITALS: BP 117/49
--- NOTE | 2019-02-04 13:45 | NUR ---
ED Nurse Note: Pt BIBA from [facility] due to grand mal seizure episode x 1 this morning around 1030, witnessed by staffs, lasted about 40 secs. No trauma, incontinence. Pt is vent-dependent, setting: Set rate 18, Tidal volume 600, Fi02 40%, PEEP 5. Portex 8 trache. G-tube present upon arrival. Pt opens eyes spontaneously, comprehends sentences, non-verbal. Vital signs stable at this time. Will cont to monitor.
--- NOTE | 2019-02-04 13:50 | NUR ---
ED Nurse Note: SPOKE WITH STAFF FROM [facility], WHATEVER MEDICATIONS ON THE PACKET ARE ALL PT TAKING AT THIS TIME. ALL MEDS UPDATED.
--- NOTE | 2019-02-04 13:59 | NUR ---
ED Nurse Note: Blood and urine collected and sent to lab.
--- NOTE | 2019-02-04 14:12 | Emergency Room Report ---
History of Present Illness General Chief Complaint: Seizure Source: Medical Record, EMS Present Illness HPI Patient transported by EMS after having a witnessed seizure at the senior care facility. Patient is vent dependent with a tracheostomy. She supposed be taking Dilantin. Next her dose of Dilantin was administered after the seizure. The patient is alert but unable to answer questions due to either receptive or expressive aphasia. She status post stroke. Further history is unobtainable. The patient also has a gastrostomy tube. Patient discharged 01/22 for abdominal wall cellulitis. D/C dx: G-tube malfunction , s/p new G tube placement at the bedside G-tube site cellulitis Abdominal wall cellulitis Chronic ventilator dependent respiratory failure, tracheostomy status Colon distention Dysphagia, feeding by G-tube COPD Hypertension History of AL/STEMI Diabetes mellitus Anoxic encephalopathy History of CVA Seizure disorder Electrolyte abnormality Hypothyroidism with elevated TSH History of CHF with diastolic dysfunction Second-degree AV block/Mobitz type I Right bundle branch block conduction disorder Allergies: Coded Allergies: PEANUT (Verified Allergy, Unknown, 09/22/16) Uncoded Allergies: PEANUTS (Allergy, Unknown, 02/04/19) Patient History Limited by: medical condition Past Medical History: see triage record, old chart reviewed Past Surgical History: other - trach, G tube Social History Narrative [facility] Reviewed Nursing Documentation: PMH: Agreed; PSxH: Agreed Nursing Documentation-PM Past Medical History: No History, Except For Hx Hypertension: Yes Hx Pacemaker: No Hx Asthma: No Hx COPD: Yes - PNA, CHRONIC RESPIRATORY FAILURE, TRACHEOSTOMY Hx Diabetes: Yes - DM 1 Hx Cancer: Yes Hx Neurological Problems: Yes Hx Cerebrovascular Accident: Yes - Encephalpathy Hx Transient Ischemic Attacks: No Hx Dementia: Yes Hx Alzheimer's Disease: No Hx Parkinson's Disease: No Hx Meningitis: No Hx Seizures: Yes Hx Epilepsy: No Hx Multiple Sclerosis: No Hx Cerebral Palsy: No Hx Amyotrophic Lat Sclerosis: No Hx Guillian-Baggs Syndrome: No Hx Paralysis: Yes - CVA Hx Peripheral Neuropathy: No Hx Spinal Cord Injury: No Hx Head Trauma: No Hx Traumatic Brain Injury: No Hx Memory Loss: Yes Hx Concentration Difficulty: Yes Hx Speech Problem: Yes Hx Tremors: No Hx Vertigo: No Hx Dizziness: No Hx Syncope: No Hx Headaches: No Hx Aphasia: No Hx Dysphasia: No Hx Weakness: Yes Hx Fatigue: No Hx Neurologic Surgery: No Hx Brain Shunt: No Review of Systems All Other Systems: limited Physical Exam Vital Signs Date Time Temp Pulse Resp B/P (MAP) Pulse Ox O2 Delivery O2 Flow Rate FiO2 02/04/19 13:29 97.9 74 21 122/59 (80) 98 Mechanical Ventilator 02/04/19 13:41 40 Sp02 EP Interpretation: reviewed, normal General Appearance: no apparent distress, obese, Chronically Ill Head: normocephalic, atraumatic Eyes: bilateral eye PERRL ENT: moist mucus membranes Neck: tracheotomy Respiratory: lungs clear, decreased breath sounds Cardiovascular #1: regular rate, rhythm, no edema Cardiovascular #2: 2+ radial (R) Gastrointestinal: soft, other - G tube, overweight Musculoskeletal: other - L contractures Neurologic: alert, motor weakness - L hemiparesis Psychiatric: other - Unresponsive to verbal or painful stimuli Reflexes: 1+ knee (R), 1+ knee (L) Skin: warm/dry Procedures Additional Procedure Procedure Narrative Tracheostomy replacement X 2. Medical Decision Making Diagnostic Impression: Primary Impression: Uncontrolled seizures Qualified Codes: R56.9 - Unspecified convulsions Additional Impressions: UTI (urinary tract infection) Qualified Codes: N39.0 - Urinary tract infection, site not specified Ventilator dependence Vegetative state ER Course Patient presents after having a seizure that was witnessed at the senior care facility. Differential includes subtherapeutic Dilantin level, electrolyte imbalance, breakthrough seizure amongst others. Evaluation will be with EKG, chest x-ray and labs including Dilantin level. The patient will receive IV hydration. As an added Dilantin dose was given before coming in no further treatment is initiated. It appears that she has a leak in her tracheostomy tube balloon and this will be changed out. Tracheostomy exchanged by me without difficulty. Still with leak. Exchange again. Longer tube. Probable tracheal enlargement. Lidocaine for coughing. EKG no injury. CXR increased ocampo L. Pyuria. Dilantin 18.9 (they had given an extra dose?) WBC normal. Rocephin ordered for UTI. Admit telemetry observation Dr. Platt. Laboratory Tests Test 02/04/19 14:06 White Blood Count 8.1 K/UL (4.8-10.8) Red Blood Count 3.99 M/UL (4.20-5.40) L Hemoglobin 13.5 G/DL (12.0-16.0) Hematocrit 40.8 % (37.0-47.0) Mean Corpuscular Volume 102 FL (80-99) H Mean Corpuscular Hemoglobin 33.9 PG (27.0-31.0) H Mean Corpuscular Hemoglobin Concent 33.2 G/DL (32.0-36.0) Red Cell Distribution Width 14.7 % (11.6-14.8) Platelet Count 190 K/UL (150-450) Mean Platelet Volume 9.6 FL (6.5-10.1) Neutrophils (%) (Auto) 69.2 % (45.0-75.0) Lymphocytes (%) (Auto) 19.5 % (20.0-45.0) L Monocytes (%) (Auto) 6.9 % (1.0-10.0) Eosinophils (%) (Auto) 3.4 % (0.0-3.0) H Basophils (%) (Auto) 1.0 % (0.0-2.0) Urine Color Pale yellow Urine Appearance Slightly cloudy Urine pH 8 (4.5-8.0) Urine Specific Violet 1.010 (1.005-1.035) Urine Protein 1+ (NEGATIVE) H Urine Glucose (UA) Negative (NEGATIVE) Urine Ketones Negative (NEGATIVE) Urine Blood Negative (NEGATIVE) Urine Nitrite Positive (NEGATIVE) H Urine Bilirubin Negative (NEGATIVE) Urine Urobilinogen Normal MG/DL (0.0-1.0) Urine Leukocyte Esterase 3+ (NEGATIVE) H Urine RBC 0-2 /HPF (0 - 2) Urine WBC 15-20 /HPF (0 - 2) H Urine Squamous Epithelial Cells Few /LPF (NONE/OCC) Urine Bacteria Moderate /HPF (NONE) H Sodium Level 137 MMOL/L (136-145) Potassium Level 4.0 MMOL/L (3.5-5.1) Chloride Level 101 MMOL/L (98-107) Carbon Dioxide Level 31 MMOL/L (21-32) Anion Gap 5 mmol/L (5-15) Blood Urea Nitrogen 11 mg/dL (7-18) Creatinine 0.5 MG/DL (0.55-1.30) L Estimate Glomerular Filtration Rate mL/min (>60) Glucose Level 106 MG/DL (74-106) Calcium Level 10.1 MG/DL (8.5-10.1) Total Bilirubin 0.3 MG/DL (0.2-1.0) Aspartate Amino Transferase (AST) 43 U/L (15-37) H Alanine Aminotransferase (ALT) 28 U/L (12-78) Alkaline Phosphatase 193 U/L (46-116) H Total Creatine Kinase 50 U/L (26-308) Troponin I 0.000 ng/mL (0.000-0.056) Total Protein 8.7 G/DL (6.4-8.2) H Albumin 2.9 G/DL (3.4-5.0) L Globulin 5.8 g/dL Albumin/Globulin Ratio 0.5 (1.0-2.7) L Phenytoin (Dilantin) Level 18.9 ug/mL (10-20) EKG Diagnostic Results Rate: normal Rhythm: NSR ST Segments: no acute changes - RBBB 1st degree AV block Rhythm Strip Diag. Results EP Interpretation: yes Rhythm: NSR, no PVC's, no ectopy Chest X-Ray Diagnostic Results Chest X-Ray Diagnostic Results : Chest X-Ray Ordered: Yes # of Views/Limited/Complete: 1 View Indication: Other EP Interpretation: Yes Interpretation: no pneumothorax, other - L effusion and in vasculature Impression: Other Electronically Signed by: Electronically signed by Eder Goodwin MD Last Vital Signs Date Time Temp Pulse Resp B/P (MAP) Pulse Ox O2 Delivery O2 Flow Rate FiO2 02/05/19 03:06 70 18 40 02/05/19 00:00 Mechanical Ventilator 02/05/19 00:00 98.2 123/61 (81) 97 Status: improved Disposition: PLACE IN OBSERVATION Condition: Serious Eder Goodwin MD Feb 04, 2019 14:12
[2019-02-04 14:28] LABS: APPEARANCE,URINE SLIGHTLY CLOUDY; BILIRUBIN, URINE NEGATIVE (NEGATIVE); COLOR,URINE PALE YELLOW; EOSINOPHILS % (AUTO) 3.4 % (0.0-3.0); GLUCOSE, URINE (UA) NEGATIVE (NEGATIVE); HEMATOCRIT 40.8 % (37.0-47.0); HEMOGLOBIN 13.5 G/DL (12.0-16.0); KETONES,URINE NEGATIVE (NEGATIVE); LEUKOCYTE ESTERASE ,URINE 3+ (NEGATIVE); LYMPHOCYTES % (AUTO) 19.5 % (20.0-45.0); MEAN CORPUSCULAR VOLUME 102 FL (80-99); MONOCYTES % (AUTO) 6.9 % (1.0-10.0); NEUTROPHILS % (AUTO) 69.2 % (45.0-75.0); NITRITE,URINE POSITIVE (NEGATIVE); PH,URINE 8 (4.5-8.0); PLATELET COUNT 190 K/UL (150-450); PROTEIN,URINE 1+ (NEGATIVE); RED BLOOD COUNT 3.99 M/UL (4.20-5.40); RED CELL DISTRIBUTION WIDTH 14.7 % (11.6-14.8); UROBILINOGEN,URINE NORMAL MG/DL (0.0-1.0); WHITE BLOOD COUNT 8.1 K/UL (4.8-10.8)
--- NOTE | 2019-02-04 14:32 | NUR ---
ED Nurse Note: Nancy 8 XLT Trache replaced by ERMD and RT at this time at bedside.
[2019-02-04 14:37] LABS: ANION GAP 5 mmol/L (5-15); BLOOD UREA NITROGEN 11 mg/dL (7-18); CALCIUM 10.1 MG/DL (8.5-10.1); CARBON DIOXIDE 31 MMOL/L (21-32); CHLORIDE 101 MMOL/L (98-107); CREATININE 0.5 MG/DL (0.55-1.30); SODIUM 137 MMOL/L (136-145)
--- NOTE | 2019-02-04 14:40 | NUR ---
Portex 8 replaced with Shiley 8 XLT.
[2019-02-04 14:41] LABS: ALANINE AMINOTRANSFERASE 28 U/L (12-78); ALBUMIN 2.9 G/DL (3.4-5.0); ALBUMIN/GLOBULIN RATIO 0.5 (1.0-2.7); ALKALINE PHOSPHATASE 193 U/L (46-116); ASPARTATE AMINO TRANSFERASE 43 U/L (15-37); BILIRUBIN,TOTAL 0.3 MG/DL (0.2-1.0); CREATINE KINASE 50 U/L (26-308)
[2019-02-04] MEDS ORDERED: Lidocaine 1% MPF 10mg/ml 5ml HHN ONE (15:15)
--- NOTE | 2019-02-04 15:23 | Diagnostic Imaging Report ---
Indication: Dyspnea Comparison: 01/21/2019 A single view chest radiograph was obtained. Findings: Mild pulmonary vascular congestion is present with prominent pulmonary vessels. No consolidation identified. Cardiomegaly noted. Tracheostomy again noted. IMPRESSION: Suspected mild pulmonary vascular congestion
[2019-02-04 16:22] VITALS: BP 86/58
[2019-02-04 17:00] VITALS: BP 102/61
--- NOTE | 2019-02-04 17:06 | NUR ---
ED Nurse Note: Report given to CESAR Hu at ext [phone]. Pt to be transfered to [facility] per protocol.
[2019-02-04] MEDS ORDERED: Acetaminophen 650mg/20.3ml GT PRN (17:45)
[2019-02-04] MEDS ORDERED: Dextrose 50% 25ml Syringe IV PRN (17:45)
[2019-02-04] MEDS ORDERED: LORazepam Inj 2mg/ml 1ml IV PRN (17:45)
[2019-02-04] MEDS ORDERED: Zolpidem 5mg tab GT PRN (17:45)
[2019-02-04] MEDS ORDERED: Morphine Sulfate 2mg/ml Inj(IV/IM USE ONLY) IVP PRN (17:45)
[2019-02-04] MEDS ORDERED: Miralax 17gm pkt GT PRN (17:45)
--- NOTE | 2019-02-04 18:10 | NUR ---
NURSE NOTES: Received patient trach to vent. Siley 8 AC 18 VT 600 fio2 40% peep of 5. Opens eyes. Nods yes and no. G tube intact. dressing dry. NPO at the time. Nutirtion consult scheduled for tomorrow. Olyguric - no gould. NO skin issues. L wrist 20 patent flushing. Will continue plan of care.
--- NOTE | 2019-02-04 19:10 | NUR ---
HAND-OFF: Report given to Terrie GUERRERO using sbar. VSS. no distress noted.
--- NOTE | 2019-02-04 19:30 | NUR ---
NURSE NOTES: Received patient from CESAR Hu. patient was admitted from ED. patient is awake and nonverbal, but arousable to voice. no s/sx of pain or discomfort noted. vent to trach settings are as follows: portex: 8, AC: 18, TV: 600, FiO2: 40%, and PEEP: 5. no s/sx of respiratory distress noted. patient is currently NPO. G-tube is patent and clamped. IV site is patent and intact. healed sacral scars were observed, but no other/open wounds noted at this time. patient was cleaned and reposition. provided oral care. checked patient's belongings. left message with MD verifying admission orders. IV sites are patent and intact. bed in lowest position and locked, padded siderails up X2, call light within reach. will continue to monitor.
[2019-02-04 20:00] VITALS: BP 113/61
[2019-02-04] MEDS ORDERED: CRANBERRY425 MG GT (20:08)
[2019-02-04] MEDS ORDERED: PHENYTOIN100 MG/4 M GT (20:17)
[2019-02-04] MEDS ORDERED: levETIRAcetam 500mg/5ml Liquid GT SCH (21:00)
[2019-02-04] MEDS ORDERED: Phenytoin Susp 100mg/4ml GT SCH (21:00)
[2019-02-04] MEDS: Phenytoin Susp 100mg/4ml GT SCH (21:42)
[2019-02-04] MEDS: Heparin 5000 units/ml inj SUBQ SCH (21:43)
[2019-02-04] MEDS: D5 1/2NS 1,000 ML IV SCH (21:43)
[2019-02-04] MEDS ORDERED: VITAMIN C500 MG/11 GT (23:49)
[2019-02-05] VITALS: BP 123/61
[2019-02-05 04:00] VITALS: BP 95/60
[2019-02-05 05:13] LABS: BASOPHILS % (AUTO) 1.2 % (0.0-2.0); EOSINOPHILS % (AUTO) 5.1 % (0.0-3.0); HEMATOCRIT 36.7 % (37.0-47.0); HEMOGLOBIN 12.4 G/DL (12.0-16.0); LYMPHOCYTES % (AUTO) 24.2 % (20.0-45.0); MEAN CORPUSCULAR VOLUME 102 FL (80-99); MONOCYTES % (AUTO) 10.6 % (1.0-10.0); NEUTROPHILS % (AUTO) 58.9 % (45.0-75.0); PLATELET COUNT 178 K/UL (150-450); RED BLOOD COUNT 3.59 M/UL (4.20-5.40); RED CELL DISTRIBUTION WIDTH 14.8 % (11.6-14.8); WHITE BLOOD COUNT 5.4 K/UL (4.8-10.8)
[2019-02-05 05:42] LABS: ALANINE AMINOTRANSFERASE 26 U/L (12-78); ALBUMIN 2.7 G/DL (3.4-5.0); ALBUMIN/GLOBULIN RATIO 0.5 (1.0-2.7); ALKALINE PHOSPHATASE 170 U/L (46-116); ANION GAP 8 mmol/L (5-15); ASPARTATE AMINO TRANSFERASE 35 U/L (15-37); BILIRUBIN,TOTAL 0.4 MG/DL (0.2-1.0); BLOOD UREA NITROGEN 11 mg/dL (7-18); CALCIUM 9.7 MG/DL (8.5-10.1); CARBON DIOXIDE 27 MMOL/L (21-32); CHLORIDE 104 MMOL/L (98-107); CREATININE 0.5 MG/DL (0.55-1.30); POTASSIUM 3.5 MMOL/L (3.5-5.1); SODIUM 139 MMOL/L (136-145)
--- NOTE | 2019-02-05 07:05 | NUR ---
RESPIRATORY NOTE: Received pt on trach Shiley, cuffed 8.0 XLT with the vent settings: AC 18-600ml-40%- peep of 5. Pt is sleeping comfortably in the bed, no SOB or resp distress noted, non verbal but aroused with stimuli. Grant rhonchi B/s heard upon auscultation, suctioned minimal amount of thick/thin clear white secretions without incidents. Alarms are set and audible, vent is plugged into the red outlet, ambu bag and spare trach kit are at bedside. Will continue to monitor.
--- NOTE | 2019-02-05 07:18 | NUR ---
HAND-OFF: Report given to CESAR John. patient is in stable condition.
--- NOTE | 2019-02-05 07:19 | NUR ---
NURSE NOTES: Received report from CESAR [place]. Observed patient in bed, asleep. Trach-vent Portex 8 with settings AC 18, TV 600, FiO2 40% and PEEP 5. No acute respiratory distress noted. HOB elevated. Patient NPO, no n/v noted at this time. No s/sx pain or discomfort. Right wrist IV 20g intact and patent with IV fluids infusing at prescribed rate. Bed lockec, alarmed and in lowest position, side rails up x3, call light left within reach. Will continue to monitor.
[2019-02-05 08:00] VITALS: BP 98/51
[2019-02-05] MEDS: Phenytoin Susp 100mg/4ml GT SCH ×2 (09:19→21:10)
[2019-02-05] MEDS: Heparin 5000 units/ml inj SUBQ SCH ×2 (09:19→21:09)
[2019-02-05 11:54] VITALS: BP 103/63
--- NOTE | 2019-02-05 11:55 | Consultation ---
History of Present Illness General Date patient seen: Feb 05, 2019 Chief Complaint: Seizure Present Illness HPI 78 year old female with PMHx of vegetative state, chronic trach, vent dependent , Gtube feeding seizures, [facility] resident was brought into the emergency room by paramedics for reported seizure activity. She is admitted to telemetry for further treatment. Allergies: Coded Allergies: PEANUT (Verified Allergy, Unknown, 09/22/16) Uncoded Allergies: PEANUTS (Allergy, Unknown, 02/04/19) Medication History Scheduled Albuterol Sulfate* (Albuterol Sulfate Hhn*), 3 ML INH Q6H, (Reported) Cranberry Extract (Cranberry), 425 MG GT DAILY, (Reported) Docusate Sodium* (Docusate Sodium*), 100 MG GT DAILY, (Reported) Ferrous Sulfate (Ferrous Sulfate), 330 MG GT DAILY, (Reported) Heparin Sodium,Porcine/Pf (Heparin 1,000 Unit/10 (100/ml)), 5,000 UNIT SQ Q12HR, (Reported) Levothyroxine Sodium* (Levothyroxine Sodium*), 75 MCG GT DAILY, (Reported) Multivitamin With Minerals (Multivitamins With Minerals*), 15 ML GT DAILY, ( Reported) Phenytoin (Phenytoin*), 300 MG GT BID, (Reported) Vit C/Ascorbate Ca/Ascorb Sod (Vitamin C 500 Mg/15 Ml Liquid), 500 MG GT DAILY, (Reported) Scheduled PRN Acetaminophen (Acetaminophen), 650 MG GT Q6H PRN for Prn Headache/Temp > 101, ( Reported) Patient History Healthcare decision maker Samir Bowling (daughter) Resuscitation status Full Code Advanced Directive on File Yes Past Medical/Surgical History Past Medical/Surgical History: (1) Status post tracheostomy (2) Ventilator dependence (3) Anemia (4) Functional paraplegia (5) HTN (hypertension) (6) Seizure disorder (7) Hypothyroidism (8) Feeding by G-tube (9) Anoxic brain damage syndrome (10) Vegetative state (11) Chronic respiratory failure Review of Systems All Other Systems: negative except mentioned in HPI Physical Exam General Appearance: WD/WN Lines, tubes and drains: peripheral HEENT: normocephalic, atraumatic Neck: non-tender, normal alignment Respiratory/Chest: chest wall non-tender, normal breath sounds Breasts: no masses Cardiovascular/Chest: normal rate Abdomen: normal bowel sounds Genitourinary/Rectal: normal genital exam Extremities: normal range of motion Neurologic: stretcher and drier II-XII grossly normal Lymphatic: anterior cervical, posterior cervical (L) Musculoskeletal: normal muscle bulk Last 24 Hour Vital Signs Date Time Temp Pulse Resp B/P (MAP) Pulse Ox O2 Delivery O2 Flow Rate FiO2 02/05/19 09:01 76 18 40 02/05/19 08:00 Mechanical Ventilator 02/05/19 08:00 98.8 71 18 98/51 (67) 95 02/05/19 08:00 40 02/05/19 07:04 69 18 40 02/05/19 05:02 61 18 40 02/05/19 04:00 98.2 68 18 95/60 (72) 94 02/05/19 04:00 73 02/05/19 04:00 Mechanical Ventilator 02/05/19 04:00 40 02/05/19 03:06 70 18 40 02/05/19 01:30 66 18 40 02/05/19 00:00 Mechanical Ventilator 02/05/19 00:00 40 02/05/19 00:00 83 02/05/19 00:00 98.2 70 18 123/61 (81) 97 02/04/19 23:45 68 18 40 02/04/19 21:24 74 18 40 02/04/19 20:00 98.6 84 18 113/61 (78) 96 02/04/19 20:00 83 02/04/19 20:00 Mechanical Ventilator 02/04/19 20:00 40 02/04/19 18:58 77 22 40 02/04/19 17:06 97.9 76 18 102/61 98 Mechanical Ventilator 40 02/04/19 17:00 97.9 76 18 102/61 98 Mechanical Ventilator 40 02/04/19 16:22 97.9 76 20 86/58 98 Mechanical Ventilator 40 02/04/19 15:27 99 18 98 Mechanical Ventilator 40 02/04/19 15:10 95 18 97 Mechanical Ventilator 40 02/04/19 14:47 120 35 40 02/04/19 13:58 74 31 40 02/04/19 13:44 97.9 72 18 117/49 96 Mechanical Ventilator 40 02/04/19 13:43 72 18 Mechanical Ventilator 40 02/04/19 13:41 40 02/04/19 13:29 97.9 74 21 122/59 (80) 98 Mechanical Ventilator Intake and Output 02/04/19 02/05/19 19:00 07:00 Intake Total 300 ml 464 ml Balance 300 ml 464 ml Intake IV Total 300 ml 464 ml # Voids 1 2 Laboratory Tests Test 02/04/19 14:06 02/05/19 03:20 White Blood Count 8.1 K/UL (4.8-10.8) 5.4 K/UL (4.8-10.8) Red Blood Count 3.99 M/UL (4.20-5.40) L 3.59 M/UL (4.20-5.40) L Hemoglobin 13.5 G/DL (12.0-16.0) 12.4 G/DL (12.0-16.0) Hematocrit 40.8 % (37.0-47.0) 36.7 % (37.0-47.0) L Mean Corpuscular Volume 102 FL (80-99) H 102 FL (80-99) H Mean Corpuscular Hemoglobin 33.9 PG (27.0-31.0) H 34.4 PG (27.0-31.0) H Mean Corpuscular Hemoglobin Concent 33.2 G/DL (32.0-36.0) 33.7 G/DL (32.0-36.0) Red Cell Distribution Width 14.7 % (11.6-14.8) 14.8 % (11.6-14.8) Platelet Count 190 K/UL (150-450) 178 K/UL (150-450) Mean Platelet Volume 9.6 FL (6.5-10.1) 9.1 FL (6.5-10.1) Neutrophils (%) (Auto) 69.2 % (45.0-75.0) 58.9 % (45.0-75.0) Lymphocytes (%) (Auto) 19.5 % (20.0-45.0) L 24.2 % (20.0-45.0) Monocytes (%) (Auto) 6.9 % (1.0-10.0) 10.6 % (1.0-10.0) H Eosinophils (%) (Auto) 3.4 % (0.0-3.0) H 5.1 % (0.0-3.0) H Basophils (%) (Auto) 1.0 % (0.0-2.0) 1.2 % (0.0-2.0) Urine Color Pale yellow Urine Appearance Slightly cloudy Urine pH 8 (4.5-8.0) Urine Specific [place] 1.010 (1.005-1.035) Urine Protein 1+ (NEGATIVE) H Urine Glucose (UA) Negative (NEGATIVE) Urine Ketones Negative (NEGATIVE) Urine Blood Negative (NEGATIVE) Urine Nitrite Positive (NEGATIVE) H Urine Bilirubin Negative (NEGATIVE) Urine Urobilinogen Normal MG/DL (0.0-1.0) Urine Leukocyte Esterase 3+ (NEGATIVE) H Urine RBC 0-2 /HPF (0 - 2) Urine WBC 15-20 /HPF (0 - 2) H Urine Squamous Epithelial Cells Few /LPF (NONE/OCC) Urine Bacteria Moderate /HPF (NONE) H Sodium Level 137 MMOL/L (136-145) 139 MMOL/L (136-145) Potassium Level 4.0 MMOL/L (3.5-5.1) 3.5 MMOL/L (3.5-5.1) Chloride Level 101 MMOL/L (98-107) 104 MMOL/L (98-107) Carbon Dioxide Level 31 MMOL/L (21-32) 27 MMOL/L (21-32) Anion Gap 5 mmol/L (5-15) 8 mmol/L (5-15) Blood Urea Nitrogen 11 mg/dL (7-18) 11 mg/dL (7-18) Creatinine 0.5 MG/DL (0.55-1.30) L 0.5 MG/DL (0.55-1.30) L Estimat Glomerular Filtration Rate mL/min (>60) mL/min (>60) Glucose Level 106 MG/DL (74-106) 97 MG/DL (74-106) Calcium Level 10.1 MG/DL (8.5-10.1) 9.7 MG/DL (8.5-10.1) Total Bilirubin 0.3 MG/DL (0.2-1.0) 0.4 MG/DL (0.2-1.0) Aspartate Amino Transf (AST/SGOT) 43 U/L (15-37) H 35 U/L (15-37) Alanine Aminotransferase (ALT/SGPT) 28 U/L (12-78) 26 U/L (12-78) Alkaline Phosphatase 193 U/L (46-116) H 170 U/L (46-116) H Total Creatine Kinase 50 U/L (26-308) Troponin I 0.000 ng/mL (0.000-0.056) Total Protein 8.7 G/DL (6.4-8.2) H 8.0 G/DL (6.4-8.2) Albumin 2.9 G/DL (3.4-5.0) L 2.7 G/DL (3.4-5.0) L Globulin 5.8 g/dL 5.3 g/dL Albumin/Globulin Ratio 0.5 (1.0-2.7) L 0.5 (1.0-2.7) L Phenytoin (Dilantin) Level 18.9 ug/mL (10-20) Microbiology Date/Time Source Procedure Growth Status 02/04/19 14:06 Urine,Clean Catch Urine Culture - Preliminary Gram Negative Bacillus 1 Resulted 02/05/19 06:14 Rectum Received Height (Feet): 5 Height (Inches): 4.00 Weight (Pounds): 209 Medications Current Medications Medications (Trade) Dose Ordered Sig/Boubacar Route PRN Reason Start Time Stop Time Status Last Admin Dose Admin Acetaminophen (Tylenol) 650 mg Q4H PRN GT fever 02/04/19 17:45 03/06/19 17:44 Dextrose (Dextrose 50%) 25 ml Q30M PRN IV Hypoglycemia 02/04/19 17:45 03/06/19 17:43 Dextrose (Dextrose 50%) 50 ml Q30M PRN IV hypoglycemia 02/04/19 17:45 03/06/19 17:44 Dextrose/Sodium Chloride 1,000 ml @ 50 mls/hr Q20H IV 02/04/19 21:00 03/06/19 20:59 02/04/19 21:43 Heparin Sodium (Porcine) (Heparin 5000 units/ml) 5,000 units EVERY 12 HOURS SUBQ 02/04/19 21:00 03/06/19 20:59 02/05/19 09:19 Levothyroxine Sodium (Synthroid) 75 mcg Q24H GT 02/05/19 06:30 03/07/19 06:29 02/05/19 06:34 Lorazepam (Ativan 2mg/ml 1ml) 2 mg Q1H PRN IV seizures 02/04/19 17:45 02/11/19 17:44 Morphine Sulfate (Morphine Sulfate) 1 mg Q4H PRN IVP For Pain 02/04/19 17:45 02/11/19 17:44 Ondansetron HCl (Zofran) 4 mg Q6H PRN IVP Nausea & Vomiting 02/04/19 17:45 03/06/19 17:44 Phenytoin (Dilantin) 300 mg EVERY 12 HOURS GT 02/04/19 21:00 03/06/19 20:59 02/05/19 09:19 Polyethylene Glycol (Miralax) 17 gm HSPRN PRN GT Constipation 02/04/19 17:45 03/06/19 17:44 Zolpidem Tartrate (Ambien) 5 mg HSPRN PRN GT Insomnia 02/04/19 17:45 02/11/19 17:44 Assessment/Plan Problem List: (1) Seizure disorder ICD Codes: G40.909 - Epilepsy, unspecified, not intractable, without status epilepticus SNOMED: 939028827 (2) Uncontrolled seizures ICD Codes: R56.9 - Unspecified convulsions SNOMED: 07151915 Qualifiers: Qualified Codes: R56.9 - Unspecified convulsions (3) Anemia ICD Codes: D64.9 - Anemia, unspecified SNOMED: 326695602 (4) Ventilator dependence ICD Codes: Z99.11 - Dependence on respirator [ventilator] status SNOMED: 960273483 (5) Functional paraplegia (6) HTN (hypertension) ICD Codes: I10 - Essential (primary) hypertension SNOMED: 49817151 (7) Feeding by G-tube ICD Codes: Z93.1 - Gastrostomy status SNOMED: 429091269, 768901399 (8) Anoxic brain damage syndrome ICD Codes: G93.1 - Anoxic brain damage, not elsewhere classified SNOMED: 488487056 (9) Vegetative state ICD Codes: R40.3 - Persistent vegetative state SNOMED: 66968098, 626832531 (10) Status post tracheostomy ICD Codes: Z93.0 - Tracheostomy status SNOMED: 68243413, 778889174 Assessment/Plan: [facility] monitoring neuro evaluation dvt prophylaxis titrate vent setting titrate fio2 to sat of 92% f/u drug levels monitor BP diabetic gtube feeding sliding scale Savi Rodriguez MD Feb 05, 2019 11:55
--- NOTE | 2019-02-05 12:13 | NUR ---
RD ASSESSMENT & RECOMMENDATIONS SEE CARE ACTIVITY FOR COMPLETE ASSESSMENT DAILY ESTIMATED NEEDS: Needs based on Obese, critical care 66.4kg adj 20-25 kcals/kg 7635-3982 total kcals 1-2 g protein/kg 66-133 g total protein 25-30 mL/kg 0564-7026 total fluid mLs NUTRITION DIAGNOSIS: 1) Swallowing difficulty R/T respiratory status as evidenced by pt trach-vent dep, GT dep, NPO at this time. CURRENT TF:NPO ENTERAL NUTRITION RECOMMENDATIONS: Jevity 1.2 @ 75ml/hr x 16 hrs (PT ON DILANTIN BID) to provide 1200ml, 1440kcal, 67g prot, 968ml free water * As medically appropriate, initiate Jevity 1.2 @ 25ml/hr x 6hrs, advance 10ml q 4-6 hrs as tolerated to goal rate. 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
--- NOTE | 2019-02-05 14:30 | NUR ---
NURSE NOTES: Report given to CESAR Shafer. Patient in stable condition; personnel monitor removed prior to transfer. Belongings list updated, endorsed, and signed. Sepideh from [facility]. reported 3.6L output from paracentesis, endorsed to Soni. Addendum: 02/05/19 at 1450 by Dora Paige RN Wrong patient entry.
--- NOTE | 2019-02-05 15:44 | NUR ---
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 ETT DEPENDENT . UTI VS: BP 86/58, P 74, T 97.8, RR 21, SpO2 98 on VENT AC 18, TV 600, PEEP 5.0, FiO2 40 RBC 3.99, HCT 36.7, CR 0.5, AST 43 IS:NS x1L IV D5W x1L IV DILANTIN 300mg ADMITTED TO SDU DCP: RETURN HOME
--- NOTE | 2019-02-05 15:50 | NUR ---
*-* INSURANCE *-* ALL CLINICALS AND REVIEWS HAVE BEEN FAXED TO: [facility] NCM: KERON /ONEIL P- [phone] F- [phone]....REVIEW/ CLINICAL
[2019-02-05 16:00] VITALS: BP 98/57
--- NOTE | 2019-02-05 16:15 | History and Physical Report ---
DATE OF ADMISSION: 02/04/2019 DATE AND TIME SEEN: 02/05/2019 at 12 noon. CONSULTANTS: 1. Savi Rodriguez M.D. 2. Wilmer Cardenas M.D. CHIEF COMPLAINT: Seizure, lower GI bleed. BRIEF HISTORY: This is a 78-year-old female from [facility], presented with the above-mentioned diagnosis, seizure x40 seconds, possible lower GI bleed, admitted to [facility] for further care. Currently, trach, vent, altered, lethargic in bed, nonverbal. REVIEW OF SYSTEMS: Unavailable. PAST MEDICAL HISTORY: Chronic respiratory failure, seizure, CHF, hypertension, hypothyroid, and paraplegia. PAST SURGICAL HISTORY: Trach and G-tube. ALLERGIES: Denies. MEDICATIONS: Levothyroxine, heparin, Phenytoin, zolpidem, lorazepam, Zofran, and morphine. SOCIAL HISTORY: No smoking. No alcohol. No intravenous drug abuse. FAMILY HISTORY: Noncontributory. PHYSICAL EXAMINATION: GENERAL: Calm, trach vent, altered, lethargic in bed, nonverbal. VITAL SIGNS: Temperature 98 degrees, pulse 59, respirations 18, and blood pressure 90/51. CARDIOVASCULAR: No murmur. LUNGS: Distant, poor exchange. ABDOMEN: Bowel sounds distant. EXTREMITIES: No cyanosis, clubbing, or edema. NEUROLOGIC: The patient is flaccid in bed, not following directions. LABORATORY DATA: Labs at this time show CBC is normal. BMP shows creatinine 0.5. Alkaline phosphatase 170. Albumin 2.7. UA showed 3+ leukocyte esterase. ASSESSMENT: 1. Lower gastrointestinal bleed. 2. Malnutrition. 3. Urinary tract infection. 4. Seizure. 5. Respiratory failure. 6. Congestive heart failure. 7. Hypertension. 8. Hypothyroid. 9. Paraplegia. PLAN: 1. Vent per Pulmonary. 2. Antibiotic per Infectious Disease. 3. GI followup. 4. Neurology followup. 5. Resume home medications. 6. We will ascertain who is attending physician going forward. We will continue to follow the patient in the meantime. Juaquin Ramos D.O. DR: KAILEY JOB#: [id number] CC:
[2019-02-05] MEDS: D5 1/2NS 1,000 ML IV SCH (17:45)
--- NOTE | 2019-02-05 18:53 | NUR ---
RESPIRATORY NOTE: Received pt on AC 18, 600VT, 40%, PEEP +5. Pt is trach-dependent w/ a cuffed, Shiley 8 XLT tube. Pt awakem, responds to stimuli. B/S torri. rhonchi, sxn small to moderate amounts of thick, pale-yellow secretions. Vent plugged into red outlet, ambubag at bedside. pt resting comfortably, in no apparent distress at this time. Will continue plan of care.
--- NOTE | 2019-02-05 19:10 | NUR ---
NURSE NOTES: Received patient from Melody GUERRERO. Patient is awake and oriented x1-x2. She is receiving oxygen via Portex 8 with settings: AC 18, TV 600, FiO2 40%, and PEEP 5. Gtube is patent and receiving Jevity 1.2 at 40cc/hr, no residual, goal is 75cc/hr. Purewick is patent and draining. IV site is right wrist 20g receiving D5 1/2NS at 50cc/hr. Bed is locked, placed in lowest position, side rails up x3, side rails padded, call light within reach. Will continue to monitor.
--- NOTE | 2019-02-05 19:10 | NUR ---
HAND-OFF: Report given to Irvin Jernigan RN. Patient in stable condition.
[2019-02-05] MEDS ORDERED: PROMOD946 ML GT (19:32)
--- NOTE | 2019-02-05 19:55 | NUR ---
NURSE NOTES: Dr. Rodriguez made aware of patients new cardiac rhythm finding of 2nd degree heart block
[2019-02-05 20:00] VITALS: BP 107/53
--- NOTE | 2019-02-05 23:29 | Consultation ---
History of Present Illness General Date patient seen: Feb 05, 2019 Chief Complaint: Seizure Referring physician: Dr. Ramos Present Illness HPI Kate Donovan is a 78-year-old female with a PMH of hronic respiratory failure , seizure, CHF, hypertension, hypothyroid, and paraplegia from [facility]. She presented with a seizure lasting 40 seconds, possible lower GI bleed, admitted to [facility] for further care. Currently, trach, vent, but alert and mouthing words, following commands in UEs appropriately. Allergies: Coded Allergies: PEANUT (Verified Allergy, Unknown, 09/22/16) Uncoded Allergies: PEANUTS (Allergy, Unknown, 02/04/19) Medication History Scheduled Albuterol Sulfate* (Albuterol Sulfate Hhn*), 3 ML INH Q6H, (Reported) Cranberry Extract (Cranberry), 425 MG GT DAILY, (Reported) Docusate Sodium* (Docusate Sodium*), 100 MG GT DAILY, (Reported) Ferrous Sulfate (Ferrous Sulfate), 330 MG GT DAILY, (Reported) Heparin Sodium,Porcine/Pf (Heparin 1,000 Unit/10 (100/ml)), 5,000 UNIT SQ Q12HR, (Reported) Levothyroxine Sodium* (Levothyroxine Sodium*), 75 MCG GT DAILY, (Reported) Multivitamin With Minerals (Multivitamins With Minerals*), 15 ML GT DAILY, ( Reported) Phenytoin (Phenytoin*), 300 MG GT BID, (Reported) Protein Supplement (Promod), 30 ML GT TID, (Reported) Vit C/Ascorbate Ca/Ascorb Sod (Vitamin C 500 Mg/15 Ml Liquid), 500 MG GT DAILY, (Reported) Scheduled PRN Acetaminophen (Acetaminophen), 650 MG GT Q6H PRN for Prn Headache/Temp > 101, ( Reported) Patient History Limited by: medical condition History Provided By: Medical Record Healthcare decision maker Samir Bowling (daughter) Resuscitation status Full Code Advanced Directive on File Yes Past Medical/Surgical History Past Medical/Surgical History: (1) Hypothyroidism (2) Feeding by G-tube (3) Anoxic brain damage syndrome (4) Acute and chronic respiratory failure (5) HTN (hypertension) (6) Functional paraplegia (7) Seizure disorder Review of Systems Constitutional: Denies: no symptoms, see HPI, chills, sweats, fever, malaise, weakness, other Eye: Denies: no symptoms, see HPI, eye pain, blurred vision, tearing, double vision, nose pain, nose congestion, acuity changes, discharge, other ENT: Denies: no symptoms, see HPI, ear pain, ear discharge, nose pain, nose congestion, throat pain, throat swelling, mouth pain, hearing loss, nasal discharge, other Respiratory: Denies: no symptoms, see HPI, cough, orthopnea, shortness of breath, stridor, wheezing, ROBLES, sputum, other Cardiovascular: Denies: no symptoms, see HPI, chest pain, edema, palpitations, syncope, PND, other Gastrointestinal: Denies: no symptoms, see HPI, abdominal pain, constipation, diarrhea, nausea, vomiting, melena, hematemesis, other Genitourinary: Denies: no symptoms, see HPI, discharge, dysuria, frequency, hematuria, pain, retention, incontinence, urgency, vag bleed/dc, other Musculoskeletal: Denies: no symptoms, see HPI, back pain, gout, joint pain, joint swelling, muscle pain, muscle stiffness, other Skin: Denies: no symptoms, see HPI, rash, change in color, change in hair/nails , dryness, lesions, other Psychiatric: Denies: no symptoms, see HPI, prior hx, anxiety, depressed feelings, emotional problems, SI, HI, hallucinations, other Neurological: Denies: no symptoms, see HPI, headache, numbness, paresthesia, seizure, tingling, tremors, focal weakness, syncope, dizziness, other Endocrine: Denies: no symptoms, see HPI, excessive sweating, flushing, intolerance to temperature, increased thirst, increased urine, unexplained weight loss, other Hematologic/Lymphatic: Denies: no symptoms, see HPI, anemia, blood clots, easy bleeding, easy bruising, swollen glands, diathesis, other Physical Exam General Appearance: WD/WN - Patient is a chronically ill patient with tracheostomy, ventilatory support at baseline and g tube feeding. She is paraplegic in her lower extremities and bedbound. She is unable to speak secondary to her tracheostomy and chronic ventilation. , alert Lines, tubes and drains: trach, gtube HEENT: normocephalic, atraumatic, anicteric, mucous membranes moist, PERRL, EOMI, supple, no JVD, status post trach Neck: trach Respiratory/Chest: no respiratory distress, no accessory muscle use Cardiovascular/Chest: normal peripheral pulses Extremities: no edema, no cyanosis Skin Exam: normal pigmentation, warm/dry, no diaphoresis Neurologic: city manager II-XII grossly normal, alert, responsive, motor weakness, other - Weak upper extremities without focal deficits. Can follow some midline commands. Musculoskeletal: no effusion Last 24 Hour Vital Signs Date Time Temp Pulse Resp B/P (MAP) Pulse Ox O2 Delivery O2 Flow Rate FiO2 02/05/19 20:50 65 18 40 02/05/19 20:00 99.4 70 18 107/53 (71) 98 02/05/19 20:00 40 02/05/19 20:00 Mechanical Ventilator 02/05/19 19:03 67 02/05/19 18:50 79 21 40 02/05/19 16:32 67 21 40 02/05/19 16:00 99.4 73 16 98/57 (71) 95 02/05/19 16:00 40 02/05/19 16:00 Mechanical Ventilator 02/05/19 16:00 68 02/05/19 14:38 74 18 40 02/05/19 12:42 62 18 40 02/05/19 12:00 40 02/05/19 12:00 58 02/05/19 12:00 Mechanical Ventilator 02/05/19 11:58 60 18 40 02/05/19 11:54 99.4 68 16 103/63 (76) 95 02/05/19 09:01 76 18 40 02/05/19 08:11 59 02/05/19 08:00 Mechanical Ventilator 02/05/19 08:00 98.8 71 18 98/51 (67) 95 02/05/19 08:00 40 02/05/19 07:04 69 18 40 02/05/19 05:02 61 18 40 02/05/19 04:00 98.2 68 18 95/60 (72) 94 02/05/19 04:00 73 02/05/19 04:00 Mechanical Ventilator 02/05/19 04:00 40 02/05/19 03:06 70 18 40 02/05/19 01:30 66 18 40 02/05/19 00:00 Mechanical Ventilator 02/05/19 00:00 40 02/05/19 00:00 83 02/05/19 00:00 98.2 70 18 123/61 (81) 97 02/04/19 23:45 68 18 40 Intake and Output 02/04/19 02/05/19 19:00 07:00 Intake Total 300 ml 464 ml Balance 300 ml 464 ml IV Total 300 ml 464 ml # Voids 1 2 Laboratory Tests Test 02/05/19 03:20 White Blood Count 5.4 K/UL (4.8-10.8) Red Blood Count 3.59 M/UL (4.20-5.40) L Hemoglobin 12.4 G/DL (12.0-16.0) Hematocrit 36.7 % (37.0-47.0) L Mean Corpuscular Volume 102 FL (80-99) H Mean Corpuscular Hemoglobin 34.4 PG (27.0-31.0) H Mean Corpuscular Hemoglobin Concent 33.7 G/DL (32.0-36.0) Red Cell Distribution Width 14.8 % (11.6-14.8) Platelet Count 178 K/UL (150-450) Mean Platelet Volume 9.1 FL (6.5-10.1) Neutrophils (%) (Auto) 58.9 % (45.0-75.0) Lymphocytes (%) (Auto) 24.2 % (20.0-45.0) Monocytes (%) (Auto) 10.6 % (1.0-10.0) H Eosinophils (%) (Auto) 5.1 % (0.0-3.0) H Basophils (%) (Auto) 1.2 % (0.0-2.0) Sodium Level 139 MMOL/L (136-145) Potassium Level 3.5 MMOL/L (3.5-5.1) Chloride Level 104 MMOL/L (98-107) Carbon Dioxide Level 27 MMOL/L (21-32) Anion Gap 8 mmol/L (5-15) Blood Urea Nitrogen 11 mg/dL (7-18) Creatinine 0.5 MG/DL (0.55-1.30) L Estimat Glomerular Filtration Rate mL/min (>60) Glucose Level 97 MG/DL (74-106) Calcium Level 9.7 MG/DL (8.5-10.1) Total Bilirubin 0.4 MG/DL (0.2-1.0) Aspartate Amino Transf (AST/SGOT) 35 U/L (15-37) Alanine Aminotransferase (ALT/SGPT) 26 U/L (12-78) Alkaline Phosphatase 170 U/L (46-116) H Total Protein 8.0 G/DL (6.4-8.2) Albumin 2.7 G/DL (3.4-5.0) L Globulin 5.3 g/dL Albumin/Globulin Ratio 0.5 (1.0-2.7) L Microbiology Date/Time Source Procedure Growth Status 02/05/19 06:14 Rectum Received Height (Feet): 5 Height (Inches): 4.00 Weight (Pounds): 209 Medications Current Medications Medications (Trade) Dose Ordered Sig/Boubacar Route PRN Reason Start Time Stop Time Status Last Admin Dose Admin Acetaminophen (Tylenol) 650 mg Q4H PRN GT fever 02/04/19 17:45 03/06/19 17:44 Dextrose (Dextrose 50%) 25 ml Q30M PRN IV Hypoglycemia 02/04/19 17:45 03/06/19 17:43 Dextrose (Dextrose 50%) 50 ml Q30M PRN IV hypoglycemia 02/04/19 17:45 03/06/19 17:44 Dextrose/Sodium Chloride 1,000 ml @ 50 mls/hr Q20H IV 02/04/19 21:00 03/06/19 20:59 02/05/19 17:45 Heparin Sodium (Porcine) (Heparin 5000 units/ml) 5,000 units EVERY 12 HOURS SUBQ 02/04/19 21:00 03/06/19 20:59 02/05/19 21:09 Levothyroxine Sodium (Synthroid) 75 mcg Q24H GT 02/05/19 06:30 03/07/19 06:29 02/05/19 06:34 Lorazepam (Ativan 2mg/ml 1ml) 2 mg Q1H PRN IV seizures 02/04/19 17:45 02/11/19 17:44 Morphine Sulfate (Morphine Sulfate) 1 mg Q4H PRN IVP For Pain 02/04/19 17:45 02/11/19 17:44 Ondansetron HCl (Zofran) 4 mg Q6H PRN IVP Nausea & Vomiting 02/04/19 17:45 03/06/19 17:44 Phenytoin (Dilantin) 300 mg EVERY 12 HOURS GT 02/04/19 21:00 03/06/19 20:59 02/05/19 21:10 Polyethylene Glycol (Miralax) 17 gm HSPRN PRN GT Constipation 02/04/19 17:45 03/06/19 17:44 Zolpidem Tartrate (Ambien) 5 mg HSPRN PRN GT Insomnia 02/04/19 17:45 02/11/19 17:44 Assessment/Plan Problem List: (1) Aspiration pneumonia ICD Codes: J69.0 - Pneumonitis due to inhalation of food and vomit SNOMED: 971442086 (2) Bacteremia due to Gram-negative bacteria ICD Codes: R78.81 - Bacteremia SNOMED: 805025757714 (3) Septic shock ICD Codes: A41.9 - Sepsis, unspecified organism; R65.21 - Severe sepsis with septic shock SNOMED: 47180647 (4) Chronic respiratory failure ICD Codes: J96.10 - Chronic respiratory failure, unspecified whether with hypoxia or hypercapnia SNOMED: 24658356 (5) Acute and chronic respiratory failure ICD Codes: J96.20 - Acute and chronic respiratory failure, unspecified whether with hypoxia or hypercapnia SNOMED: 79152640, 13784155 (6) Anoxic brain damage syndrome ICD Codes: G93.1 - Anoxic brain damage, not elsewhere classified SNOMED: 625941423 (7) Feeding by G-tube ICD Codes: Z93.1 - Gastrostomy status SNOMED: 997486536, 267344093 (8) Hypothyroidism ICD Codes: E03.9 - Hypothyroidism, unspecified SNOMED: 19333847 (9) Seizure disorder ICD Codes: G40.909 - Epilepsy, unspecified, not intractable, without status epilepticus SNOMED: 074898973 (10) HTN (hypertension) ICD Codes: I10 - Essential (primary) hypertension SNOMED: 29408607 (11) Functional paraplegia (12) Anemia Assessment & Plan: Macrocytic, Folate and B12 deficiencies can affect mental status. ICD Codes: D64.9 - Anemia, unspecified SNOMED: 628505665 (13) LGI bleed ICD Codes: K92.2 - Gastrointestinal hemorrhage, unspecified SNOMED: 36182100 Status: stable Assessment/Plan: Continue Q 4 Neuro OBs Check Phenytoin level. W/H loading any additional AEDS Lorazepam 1mg IV PRN for seizure activity. No need for EEG at this time. No need for imaging Correct/ Replete Lytes Maintain normothermia Maintain normoglycemia with ISS Na 135-145 HgB>8Maintain SBP<140 Mayda Evangelista N.P. Feb 05, 2019 23:29
[2019-02-06] VITALS: BP 106/53
[2019-02-06 04:00] VITALS: BP 139/71
[2019-02-06 05:45] LABS: BASOPHILS % (AUTO) 1.3 % (0.0-2.0); HEMATOCRIT 35.3 % (37.0-47.0); LYMPHOCYTES % (AUTO) 21.9 % (20.0-45.0); MEAN CORPUSCULAR VOLUME 101 FL (80-99); MONOCYTES % (AUTO) 9.7 % (1.0-10.0); NEUTROPHILS % (AUTO) 62.1 % (45.0-75.0); PLATELET COUNT 167 K/UL (150-450); RED BLOOD COUNT 3.48 M/UL (4.20-5.40); RED CELL DISTRIBUTION WIDTH 14.5 % (11.6-14.8); WHITE BLOOD COUNT 5.9 K/UL (4.8-10.8)
[2019-02-06 05:50] LABS: ANION GAP 9 mmol/L (5-15); BLOOD UREA NITROGEN 11 mg/dL (7-18); CALCIUM 9.3 MG/DL (8.5-10.1); CARBON DIOXIDE 25 MMOL/L (21-32); CHLORIDE 105 MMOL/L (98-107); CREATININE 0.6 MG/DL (0.55-1.30); POTASSIUM 3.6 MMOL/L (3.5-5.1); SODIUM 139 MMOL/L (136-145)
--- NOTE | 2019-02-06 07:28 | NUR ---
RESPIRATORY NOTE: RECEIVED PT ON VENT SETTINGS: AC 18 600 +5 FIO2 40%. PT DMITRIY CURRENT VENT SETTINGS WELL. TRACH SECURE AND PATENT. VENT PLUGGED INTO RED OUTLET. ALARMS ON AND AUDIBLE. AMBU BAG AND SPARE TRACH AT BEDSIDE. WILL CONTINUE MONITORING PT.
--- NOTE | 2019-02-06 07:43 | NUR ---
HAND-OFF: Report given to Irlanda GUERRERO. Patient in stable condition.
--- NOTE | 2019-02-06 07:56 | NUR ---
NURSE NOTES: Report received from CESAR Julio. Observed patient in bed sleeping. Arousable by voice but non-verbal. On ventilator with previous setting. Pt. is tolerated well with ventilator and no acute distress noted. No s/s of pain at this time. GT site intact with tube feeding which is off at this time. HOB elevated. IVF running at prescribed rate. Bed in lowest position. Call light within reach. Will continue to monitor.
[2019-02-06 08:00] VITALS: BP 100/58
[2019-02-06] MEDS: Phenytoin Susp 100mg/4ml GT SCH ×2 (08:26→21:09)
[2019-02-06] MEDS: Heparin 5000 units/ml inj SUBQ SCH ×2 (08:28→21:11)
--- NOTE | 2019-02-06 08:41 | NUR ---
NURSE NOTES: Called and left message to Dr. Rodriguez regarding episode of decreased in HR to 30' and it is remaining in 40-50'. Patient is awake and asymptomatic at this time. Awaiting for call back.
--- NOTE | 2019-02-06 08:54 | NUR ---
NURSE NOTES: Dr. Rodriguez called back to inform Dr. Minor. Called and left message to Dr. Minor about episode of decreased in HR. Awaiting for call back.
--- NOTE | 2019-02-06 10:03 | NUR ---
*-* INSURANCE *-* UPDATED CLINICALS AND REVIEWS HAVE BEEN FAXED TO: [facility] NCM: KERON /ONEIL P- [phone] F- [phone]....REVIEW/ CLINICAL
--- NOTE | 2019-02-06 10:57 | Pulmonolgy Critical Care Note ---
Critical Care - Asmt/Plan Problems: (1) Uncontrolled seizures (2) AV block, 2nd degree (3) HTN (hypertension) (4) Hypothyroidism (5) Anoxic brain damage syndrome (6) Vegetative state (7) Status post tracheostomy (8) Ventilator dependence (9) Seizure disorder Respiratory: monitor respiratory rate, adjust FIO2, CXR Cardiac: continue to monitor HR/BP Renal: F/U I&O, keep IV fluid, check electrolytes Infectious Disease: check cultures Gastrointestinal: continue feedings/current rate Endocrine: monitor blood sugar Hematologic: transfuse if hgb<8.5 Neurologic: PRN Ativan, PRN Morphine, keep patient comfortable Affect: PRN ativan Prophylaxis: Heparin Disposition: keep in ICU 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: grease buffer, 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, consultants, director of casework departmentelectronics commodity manager - Objective Last 24 Hour Vital Signs Date Time Temp Pulse Resp B/P (MAP) Pulse Ox O2 Delivery O2 Flow Rate FiO2 02/06/19 09:06 57 18 40 02/06/19 08:00 98.1 65 20 100/58 (72) 100 02/06/19 08:00 Mechanical Ventilator 02/06/19 08:00 40 02/06/19 08:00 61 02/06/19 07:28 65 18 40 02/06/19 05:00 64 18 40 02/06/19 04:00 40 02/06/19 04:00 99.0 84 18 139/71 (93) 98 02/06/19 04:00 Mechanical Ventilator 02/06/19 03:58 62 02/06/19 03:25 63 18 40 02/06/19 00:43 77 20 40 02/06/19 00:00 Mechanical Ventilator 02/06/19 00:00 99.3 68 18 106/53 (70) 95 02/05/19 23:41 68 02/05/19 23:37 73 18 40 02/05/19 20:50 65 18 40 02/05/19 20:00 99.4 70 18 107/53 (71) 98 02/05/19 20:00 40 02/05/19 20:00 Mechanical Ventilator 02/05/19 19:03 67 02/05/19 18:50 79 21 40 02/05/19 16:32 67 21 40 02/05/19 16:00 99.4 73 16 98/57 (71) 95 02/05/19 16:00 40 02/05/19 16:00 Mechanical Ventilator 02/05/19 16:00 68 02/05/19 14:38 74 18 40 02/05/19 12:42 62 18 40 02/05/19 12:00 40 02/05/19 12:00 58 02/05/19 12:00 Mechanical Ventilator 02/05/19 11:58 60 18 40 02/05/19 11:54 99.4 68 16 103/63 (76) 95 Status: awake Condition: critical HEENT: atraumatic Lungs: clear Heart: HR/BP stable, regular Abdomen: non-tender Extremities: no C/C/E, edema Decubiti: stage Micro: Microbiology Date/Time Source Procedure Growth Status 02/04/19 14:40 Sputum Expectorated Gram Stain - Final Resulted 02/04/19 14:40 Sputum Culture - Preliminary Gram Negative Bacillus 1 Resulted 02/04/19 14:06 Urine,Clean Catch Urine Culture - Final Escherichia Coli - Esbl Complete 02/05/19 06:14 Rectum Received 02/04/19 14:40 Rectum - Final NO CARBAPENEM-RESISTANT ENTEROBACTERI... Complete Accucheck: 122 Critical Care - Subjective ROS Limited/Unobtainable: Yes Condition: critical EKG Rhythm: Sinus Rhythm FI02: 40 Vent Support Breath Rate: 18 Vent Support Mode: AC Vent Tidal Volume: 600 Sputum Amount: Small PEEP: 5.0 PIP: 33 Tube Feeding Amount: 50 I&O: Intake and Output 02/05/19 02/06/19 19:00 07:00 Intake Total 762.5 ml 620 ml Output Total 300 ml Balance 462.5 ml 620 ml Intake Free Water 60 ml IV Total 562.5 ml 350 ml Tube Feeding 140 ml 270 ml Output Urine Total 300 ml # Bowel Movements 2 CXR: JOSE ALBERTO Labs: Laboratory Tests Test 02/06/19 04:46 White Blood Count 5.9 K/UL (4.8-10.8) Red Blood Count 3.48 M/UL (4.20-5.40) L Hemoglobin 12.0 G/DL (12.0-16.0) Hematocrit 35.3 % (37.0-47.0) L Mean Corpuscular Volume 101 FL (80-99) H Mean Corpuscular Hemoglobin 34.6 PG (27.0-31.0) H Mean Corpuscular Hemoglobin Concent 34.1 G/DL (32.0-36.0) Red Cell Distribution Width 14.5 % (11.6-14.8) Platelet Count 167 K/UL (150-450) Mean Platelet Volume 10.3 FL (6.5-10.1) H Neutrophils (%) (Auto) 62.1 % (45.0-75.0) Lymphocytes (%) (Auto) 21.9 % (20.0-45.0) Monocytes (%) (Auto) 9.7 % (1.0-10.0) Eosinophils (%) (Auto) 5.0 % (0.0-3.0) H Basophils (%) (Auto) 1.3 % (0.0-2.0) Sodium Level 139 MMOL/L (136-145) Potassium Level 3.6 MMOL/L (3.5-5.1) Chloride Level 105 MMOL/L (98-107) Carbon Dioxide Level 25 MMOL/L (21-32) Anion Gap 9 mmol/L (5-15) Blood Urea Nitrogen 11 mg/dL (7-18) Creatinine 0.6 MG/DL (0.55-1.30) Estimat Glomerular Filtration Rate mL/min (>60) Glucose Level 117 MG/DL (74-106) H Calcium Level 9.3 MG/DL (8.5-10.1) Savi Rodriguez MD Feb 06, 2019 10:57
--- NOTE | 2019-02-06 11:21 | NUR ---
ENVIRONMENTAL SERVICES MANAGERINTERIOR DESIGN FACULTY MEMBER SI: UNCONTROLLED SEIZURE . ETT DEPENDENT . UTI VS: BP 100/58, P 57, T 99.0, RR 20, SpO2 98 on VENT AC 18, TV 600, PEEP 5.0, FiO2 40 RBC 3.48, Hct 35.3 IS:SYNTHROID 75mcg HEPARIN SUBQ DILANTIN 300mg D5/NS x1L IV SDU STATUS
[2019-02-06 12:00] VITALS: BP 121/65
--- NOTE | 2019-02-06 12:31 | Physician Query ---
Clarification is required for compliance, coding accuracy, and to reflect severity of illness for this patient Dear Dr. Savi Rodriguez Date: 02/06/2019 Picture Copyist/CDS Name: Julia Conde Clinical Documentation States: 02/05 note: 78 year old female with PMHx of vegetative state, chronic trach, vent dependent, Gtube feeding seizures, group home resident was brought into the emergency room by paramedics for reported seizure activity...functional paraplegia Care Trends (Nursing Documentation): Strength Assessment: 10/09 bilateral, Obtunded, 02/06/19 GCS 7 Please respond to the following question: Is there a diagnosis specific to these symptoms or values? If so please state below. PHYSICIAN RESPONSE: [] Quadriplegia [] Functional Quadriplegia [] Complete Immobility due severe disability or frailty [] Partial Immobility [] Other [] Unknown Present on Admission: [] Yes [] No [] Clinically Undetermined Physician signature Date Please also document in your Progress Notes and/or Discharge Summary and indicate if the condition was present on admission. MTDD
[2019-02-06] MEDS: D5 1/2NS 1,000 ML IV SCH (13:00)
--- NOTE | 2019-02-06 13:32 | General Progress Note ---
Assessment/Plan Problem List: (1) LGI bleed ICD Codes: K92.2 - Gastrointestinal hemorrhage, unspecified SNOMED: 21523605 (2) UTI (urinary tract infection) ICD Codes: N39.0 - Urinary tract infection, site not specified SNOMED: 75422530 Qualifiers: Qualified Codes: N39.0 - Urinary tract infection, site not specified (3) Ventilator dependence ICD Codes: Z99.11 - Dependence on respirator [ventilator] status SNOMED: 416830337 (4) HTN (hypertension) ICD Codes: I10 - Essential (primary) hypertension SNOMED: 62489790 (5) Seizure disorder ICD Codes: G40.909 - Epilepsy, unspecified, not intractable, without status epilepticus SNOMED: 964303634 Status: unchanged Assessment/Plan: vent abx gi f/u cbc bmp am Subjective Constitutional: Reports: weakness Allergies: Coded Allergies: PEANUT (Verified Allergy, Unknown, 09/22/16) Uncoded Allergies: PEANUTS (Allergy, Unknown, 02/04/19) All Systems: reviewed and negative except above Subjective trach vent altered calm Objective Last 24 Hour Vital Signs Date Time Temp Pulse Resp B/P (MAP) Pulse Ox O2 Delivery O2 Flow Rate FiO2 02/06/19 12:00 98.1 65 18 121/65 (83) 100 02/06/19 12:00 Mechanical Ventilator 02/06/19 12:00 40 02/06/19 11:11 58 18 40 02/06/19 09:06 57 18 40 02/06/19 08:00 98.1 65 20 100/58 (72) 100 02/06/19 08:00 Mechanical Ventilator 02/06/19 08:00 40 02/06/19 08:00 61 02/06/19 07:28 65 18 40 02/06/19 05:00 64 18 40 02/06/19 04:00 40 02/06/19 04:00 99.0 84 18 139/71 (93) 98 02/06/19 04:00 Mechanical Ventilator 02/06/19 03:58 62 02/06/19 03:25 63 18 40 02/06/19 00:43 77 20 40 02/06/19 00:00 Mechanical Ventilator 02/06/19 00:00 99.3 68 18 106/53 (70) 95 6/4/19 23:41 68 02/05/19 23:37 73 18 40 02/05/19 20:50 65 18 40 02/05/19 20:00 99.4 70 18 107/53 (71) 98 02/05/19 20:00 40 02/05/19 20:00 Mechanical Ventilator 02/05/19 19:03 67 02/05/19 18:50 79 21 40 02/05/19 16:32 67 21 40 02/05/19 16:00 99.4 73 16 98/57 (71) 95 02/05/19 16:00 40 02/05/19 16:00 Mechanical Ventilator 02/05/19 16:00 68 02/05/19 14:38 74 18 40 Intake and Output 02/05/19 02/06/19 19:00 07:00 Intake Total 762.5 ml 620 ml Output Total 300 ml Balance 462.5 ml 620 ml Intake Free Water 60 ml IV Total 562.5 ml 350 ml Tube Feeding 140 ml 270 ml Output Urine Total 300 ml # Bowel Movements 2 Laboratory Tests 02/06/19 04:46: White Blood Count 5.9, Red Blood Count 3.48L, Hemoglobin 12.0, Hematocrit 35.3L , Mean Corpuscular Volume 101H, Mean Corpuscular Hemoglobin 34.6H, Mean Corpuscular Hemoglobin Concent 34.1, Red Cell Distribution Width 14.5, Platelet Count 167, Mean Platelet Volume 10.3H, Neutrophils (%) (Auto) 62.1, Lymphocytes (%) (Auto) 21.9, Monocytes (%) (Auto) 9.7, Eosinophils (%) (Auto) 5.0H, Basophils (%) (Auto) 1.3, Sodium Level 139, Potassium Level 3.6, Chloride Level 105, Carbon Dioxide Level 25, Anion Gap 9, Blood Urea Nitrogen 11, Creatinine 0.6, Estimat Glomerular Filtration Rate , Glucose Level 117H, Calcium Level 9.3 Height (Feet): 5 Height (Inches): 4.00 Weight (Pounds): 209 General Appearance: lethargic EENT: normal ENT inspection Neck: normal alignment Cardiovascular: normal peripheral pulses, normal rate, regular rhythm Respiratory/Chest: chest wall non-tender, lungs clear, normal breath sounds Abdomen: normal bowel sounds, non tender, soft Extremities: normal inspection Edema: no edema noted Arm (L), no edema noted Arm (R), no edema noted Leg (L), no edema noted Leg (R), no edema noted Pedal (L), no edema noted Pedal (R), no edema noted Generalized Neurologic: motor weakness Skin: normal pigmentation, warm/dry Juaquin Ramos DO Feb 06, 2019 13:32
[2019-02-06 16:00] VITALS: BP 121/67
--- NOTE | 2019-02-06 19:25 | NUR ---
HAND-OFF: Report given to CESAR Julio. Stable condition.
--- NOTE | 2019-02-06 19:33 | NUR ---
NURSE NOTES: Received patient from Irlanda GUERRERO. Patient is awake and oriented x1-x2. She is receiving oxygen via Portex 8 with settings: AC 18, TV 600, FiO2 40%, and PEEP 5. Gtube is patent and will be receiving Jevity 1.2, currently off for Dilantin scheduled at 2100. Purewick is patent and draining. Rectal tube is intact and draining. IV site is right wrist 20g receiving D5 1/2NS at 50cc/hr. Bed is locked, placed in lowest position, side rails up x3, bed alarm on, side rails padded, call light within reach. Will continue to monitor.
[2019-02-06 20:00] VITALS: BP 111/76
--- NOTE | 2019-02-06 23:51 | Neurology Progress Note ---
Interim History Interim History ROS Limited/Unobtainable: Yes Complaints: Seizure Events: No seizures Interim History This visit was conducted on February 06, [address] Johnny Dudley. Review of Systems All Systems: reviewed and negative except above Objective Physical Exam Last Vital Signs Date Time Temp Pulse Resp B/P (MAP) Pulse Ox O2 Delivery O2 Flow Rate FiO2 02/06/19 21:19 56 18 40 02/06/19 20:00 Mechanical Ventilator 02/06/19 20:00 99.2 111/76 (88) 94 Laboratory Tests Test 02/06/19 04:46 White Blood Count 5.9 K/UL (4.8-10.8) Red Blood Count 3.48 M/UL (4.20-5.40) L Hemoglobin 12.0 G/DL (12.0-16.0) Hematocrit 35.3 % (37.0-47.0) L Mean Corpuscular Volume 101 FL (80-99) H Mean Corpuscular Hemoglobin 34.6 PG (27.0-31.0) H Mean Corpuscular Hemoglobin Concent 34.1 G/DL (32.0-36.0) Red Cell Distribution Width 14.5 % (11.6-14.8) Platelet Count 167 K/UL (150-450) Mean Platelet Volume 10.3 FL (6.5-10.1) H Neutrophils (%) (Auto) 62.1 % (45.0-75.0) Lymphocytes (%) (Auto) 21.9 % (20.0-45.0) Monocytes (%) (Auto) 9.7 % (1.0-10.0) Eosinophils (%) (Auto) 5.0 % (0.0-3.0) H Basophils (%) (Auto) 1.3 % (0.0-2.0) Sodium Level 139 MMOL/L (136-145) Potassium Level 3.6 MMOL/L (3.5-5.1) Chloride Level 105 MMOL/L (98-107) Carbon Dioxide Level 25 MMOL/L (21-32) Anion Gap 9 mmol/L (5-15) Blood Urea Nitrogen 11 mg/dL (7-18) Creatinine 0.6 MG/DL (0.55-1.30) Estimat Glomerular Filtration Rate mL/min (>60) Glucose Level 117 MG/DL (74-106) H Calcium Level 9.3 MG/DL (8.5-10.1) General: well developed, no acute distress Neck: other Neurologic Exam Mental Status: awake, alert, other Cranial Nerves III, IV, : PERRLA, EOMI, pupils Cranial Nerve VII: no facial asymmetry, normal facial expressions Cranial Nerve VIII: normal hearing, no nystagmus Cranial Nerve IX: other Cranial Nerve X: other Cranial Nerve XII: other Motor System: no involuntary movement, other Sensory: normal pinprick, normal light touch, normal position sense, normal graphesthesia Coordination: other Objective Patient has trach at baseline with PEG tube, on chronic ventilator support, with functional paraplegia of lower extremities. Can follow commands and mouth words appropriately. Impression/Recommendations Status: stable Recommendations Maintain normothermia with Tylenol Ensure patient has Respiratory therapy/chest physiotherapy Continue Seizure meds No need for eeg at this time, phenytoin levels therapeutic. Prevent Delirium: Frequently reorient patient Maintain good sleep hygiene by making room dark and quiet at night and minimizing non essential care during evening. Mayda Evangelista N.P. Feb 06, 2019 23:51
[2019-02-07] VITALS: BP 113/46
[2019-02-07 04:00] VITALS: BP 110/68
[2019-02-07 05:17] LABS: BASOPHILS % (AUTO) 0.7 % (0.0-2.0); EOSINOPHILS % (AUTO) 3.4 % (0.0-3.0); HEMATOCRIT 34.9 % (37.0-47.0); HEMOGLOBIN 11.8 G/DL (12.0-16.0); LYMPHOCYTES % (AUTO) 19.8 % (20.0-45.0); MEAN CORPUSCULAR VOLUME 101 FL (80-99); MONOCYTES % (AUTO) 10.1 % (1.0-10.0); PLATELET COUNT 155 K/UL (150-450); RED BLOOD COUNT 3.46 M/UL (4.20-5.40); RED CELL DISTRIBUTION WIDTH 14.2 % (11.6-14.8); WHITE BLOOD COUNT 6.3 K/UL (4.8-10.8)
[2019-02-07 05:47] LABS: ANION GAP 8 mmol/L (5-15); BLOOD UREA NITROGEN 10 mg/dL (7-18); CALCIUM 9.7 MG/DL (8.5-10.1); CARBON DIOXIDE 25 MMOL/L (21-32); CHLORIDE 104 MMOL/L (98-107); CREATININE 0.5 MG/DL (0.55-1.30); POTASSIUM 3.1 MMOL/L (3.5-5.1); SODIUM 137 MMOL/L (136-145)
--- NOTE | 2019-02-07 07:43 | NUR ---
HAND-OFF: Report given to Kanika GUERRERO. Patient in stable condition.
--- NOTE | 2019-02-07 07:44 | NUR ---
NURSE NOTES: Received patient in bed. Vent dependent. In no apparent distress. Newman catheter noted, rectal tube inplace. GT feeding off for dilantin administration. Contact isolation observed. Will continue plan of care.
[2019-02-07 08:00] VITALS: BP 108/53
[2019-02-07] MEDS: D5 1/2NS 1,000 ML IV SCH (08:00)
[2019-02-07] MEDS: Heparin 5000 units/ml inj SUBQ SCH (08:14)
[2019-02-07] MEDS: Phenytoin Susp 100mg/4ml GT SCH (08:42)
--- NOTE | 2019-02-07 11:10 | Pulmonolgy Critical Care Note ---
Critical Care - Asmt/Plan Problems: (1) Uncontrolled seizures (2) AV block, 2nd degree (3) HTN (hypertension) (4) Hypothyroidism (5) Anoxic brain damage syndrome (6) Vegetative state (7) Status post tracheostomy (8) Ventilator dependence (9) Seizure disorder Respiratory: monitor respiratory rate, adjust FIO2, CXR Cardiac: continue to monitor HR/BP Renal: F/U I&O Infectious Disease: check cultures Gastrointestinal: continue feedings/current rate Endocrine: monitor blood sugar, check TSH, continue sliding scale insulin Hematologic: monitor H/H, transfuse if hgb<8.5 Neurologic: PRN Ativan, PRN Morphine Prophylaxis: Protonix, Heparin 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: chin strap sewer, cardio, 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, 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 - Objective Last 24 Hour Vital Signs Date Time Temp Pulse Resp B/P (MAP) Pulse Ox O2 Delivery O2 Flow Rate FiO2 02/07/19 08:31 72 18 40 02/07/19 08:00 98.1 69 18 108/53 (71) 100 02/07/19 08:00 40 02/07/19 08:00 Mechanical Ventilator 02/07/19 07:49 91 02/07/19 06:33 69 18 40 02/07/19 05:30 70 18 40 02/07/19 04:00 98.3 70 18 110/68 (82) 100 02/07/19 04:00 40 02/07/19 04:00 Mechanical Ventilator 02/07/19 03:23 65 02/07/19 03:20 69 16 40 02/07/19 01:30 55 18 40 02/07/19 00:00 Mechanical Ventilator 02/07/19 00:00 72 02/07/19 00:00 99.0 67 18 113/46 (68) 95 02/06/19 23:11 69 18 40 02/06/19 21:19 56 18 40 02/06/19 20:00 40 02/06/19 20:00 Mechanical Ventilator 02/06/19 20:00 99.2 60 18 111/76 (88) 94 02/06/19 19:37 50 18 40 02/06/19 19:04 53 02/06/19 17:27 57 18 40 02/06/19 16:00 Mechanical Ventilator 02/06/19 16:00 98.4 67 18 121/67 (85) 99 02/06/19 16:00 50 02/06/19 16:00 40 02/06/19 15:43 61 18 40 02/06/19 13:09 64 18 40 02/06/19 12:00 98.1 65 18 121/65 (83) 100 02/06/19 12:00 Mechanical Ventilator 02/06/19 12:00 86 02/06/19 12:00 40 02/06/19 11:11 58 18 40 Status: obtunded Condition: critical HEENT: atraumatic Heart: regular Abdomen: non-tender, active bowel sounds Extremities: no C/C/E, edema Micro: Microbiology Date/Time Source Procedure Growth Status 02/04/19 14:40 Sputum Expectorated Gram Stain - Final Resulted 02/04/19 14:40 Sputum Culture - Preliminary Gram Negative Bacillus 1 Gram Negative Bacillus 2 Resulted 02/06/19 17:35 Stool Clostridium difficile Toxin Assay - Final Complete 02/04/19 14:06 Urine,Clean Catch Urine Culture - Final Escherichia Coli - Esbl Complete 02/05/19 06:14 Rectum VRE Culture - Final Enterococcus Faecalis - Vre Complete 02/05/19 06:14 Rectum - Final NO CARBAPENEM-RESISTANT ENTEROBACTERI... Complete 02/04/19 14:40 Rectum - Final NO CARBAPENEM-RESISTANT ENTEROBACTERI... Complete Accucheck: 122 Critical Care - Subjective ROS Limited/Unobtainable: Yes Condition: critical EKG Rhythm: Sinus Rhythm FI02: 40 Vent Support Breath Rate: 18 Vent Support Mode: AC Vent Tidal Volume: 600 Sputum Amount: Moderate PEEP: 5.0 PIP: 32 Tube Feeding Amount: 75 I&O: Intake and Output 02/06/19 02/07/19 19:00 07:00 Intake Total 1450 ml 905 ml Balance 1450 ml 905 ml Intake Free Water 360 ml IV Total 550 ml 500 ml Tube Feeding 540 ml 405 ml # Voids 4 # Bowel Movements 5 CXR: no new infiltrate Labs: Laboratory Tests Test 02/07/19 03:20 White Blood Count 6.3 K/UL (4.8-10.8) Red Blood Count 3.46 M/UL (4.20-5.40) L Hemoglobin 11.8 G/DL (12.0-16.0) L Hematocrit 34.9 % (37.0-47.0) L Mean Corpuscular Volume 101 FL (80-99) H Mean Corpuscular Hemoglobin 34.2 PG (27.0-31.0) H Mean Corpuscular Hemoglobin Concent 33.9 G/DL (32.0-36.0) Red Cell Distribution Width 14.2 % (11.6-14.8) Platelet Count 155 K/UL (150-450) Mean Platelet Volume 9.9 FL (6.5-10.1) Neutrophils (%) (Auto) 66.0 % (45.0-75.0) Lymphocytes (%) (Auto) 19.8 % (20.0-45.0) L Monocytes (%) (Auto) 10.1 % (1.0-10.0) H Eosinophils (%) (Auto) 3.4 % (0.0-3.0) H Basophils (%) (Auto) 0.7 % (0.0-2.0) Sodium Level 137 MMOL/L (136-145) Potassium Level 3.1 MMOL/L (3.5-5.1) L Chloride Level 104 MMOL/L (98-107) Carbon Dioxide Level 25 MMOL/L (21-32) Anion Gap 8 mmol/L (5-15) Blood Urea Nitrogen 10 mg/dL (7-18) Creatinine 0.5 MG/DL (0.55-1.30) L Estimat Glomerular Filtration Rate mL/min (>60) Glucose Level 119 MG/DL (74-106) H Calcium Level 9.7 MG/DL (8.5-10.1) Savi Rodriguez MD Feb 07, 2019 11:10
[2019-02-07 12:00] VITALS: BP 130/60
--- NOTE | 2019-02-07 13:47 | General Progress Note ---
Assessment/Plan Problem List: (1) LGI bleed ICD Codes: K92.2 - Gastrointestinal hemorrhage, unspecified SNOMED: 34661106 (2) UTI (urinary tract infection) ICD Codes: N39.0 - Urinary tract infection, site not specified SNOMED: 63638487 Qualifiers: Qualified Codes: N39.0 - Urinary tract infection, site not specified (3) Ventilator dependence ICD Codes: Z99.11 - Dependence on respirator [ventilator] status SNOMED: 780758924 (4) HTN (hypertension) ICD Codes: I10 - Essential (primary) hypertension SNOMED: 34478264 (5) Seizure disorder ICD Codes: G40.909 - Epilepsy, unspecified, not intractable, without status epilepticus SNOMED: 266606653 Status: stable, progressing Assessment/Plan: vent abx gi f/u dc if clear Subjective Constitutional: Reports: weakness Allergies: Coded Allergies: PEANUT (Verified Allergy, Unknown, 09/22/16) Uncoded Allergies: PEANUTS (Allergy, Unknown, 02/04/19) All Systems: reviewed and negative except above Subjective trach vent altered calm Objective Last 24 Hour Vital Signs Date Time Temp Pulse Resp B/P (MAP) Pulse Ox O2 Delivery O2 Flow Rate FiO2 02/07/19 13:00 72 18 40 02/07/19 12:00 Mechanical Ventilator 02/07/19 12:00 98.2 70 18 130/60 (83) 99 02/07/19 12:00 40 02/07/19 11:52 69 02/07/19 11:42 69 18 40 02/07/19 08:31 72 18 40 02/07/19 08:00 98.1 69 18 108/53 (71) 100 02/07/19 08:00 40 02/07/19 08:00 Mechanical Ventilator 02/07/19 07:49 91 02/07/19 06:33 69 18 40 02/07/19 05:30 70 18 40 02/07/19 04:00 98.3 70 18 110/68 (82) 100 02/07/19 04:00 40 02/07/19 04:00 Mechanical Ventilator 02/07/19 03:23 65 02/07/19 03:20 69 16 40 02/07/19 01:30 55 18 40 02/07/19 00:00 Mechanical Ventilator 02/07/19 00:00 72 02/07/19 00:00 99.0 67 18 113/46 (68) 95 02/06/19 23:11 69 18 40 02/06/19 21:19 56 18 40 02/06/19 20:00 40 02/06/19 20:00 Mechanical Ventilator 02/06/19 20:00 99.2 60 18 111/76 (88) 94 02/06/19 19:37 50 18 40 02/06/19 19:04 53 02/06/19 17:27 57 18 40 02/06/19 16:00 Mechanical Ventilator 02/06/19 16:00 98.4 67 18 121/67 (85) 99 02/06/19 16:00 50 02/06/19 16:00 40 02/06/19 15:43 61 18 40 Intake and Output 02/06/19 02/07/19 19:00 07:00 Intake Total 1450 ml 905 ml Balance 1450 ml 905 ml Intake Free Water 360 ml IV Total 550 ml 500 ml Tube Feeding 540 ml 405 ml # Voids 4 # Bowel Movements 5 Laboratory Tests 02/07/19 03:20: White Blood Count 6.3, Red Blood Count 3.46L, Hemoglobin 11.8L, Hematocrit 34.9L , Mean Corpuscular Volume 101H, Mean Corpuscular Hemoglobin 34.2H, Mean Corpuscular Hemoglobin Concent 33.9, Red Cell Distribution Width 14.2, Platelet Count 155, Mean Platelet Volume 9.9, Neutrophils (%) (Auto) 66.0, Lymphocytes (% ) (Auto) 19.8L, Monocytes (%) (Auto) 10.1H, Eosinophils (%) (Auto) 3.4H, Basophils (%) (Auto) 0.7, Sodium Level 137, Potassium Level 3.1L, Chloride Level 104, Carbon Dioxide Level 25, Anion Gap 8, Blood Urea Nitrogen 10, Creatinine 0.5L, Estimat Glomerular Filtration Rate , Glucose Level 119H, Calcium Level 9.7 Height (Feet): 5 Height (Inches): 4.00 Weight (Pounds): 209 General Appearance: lethargic EENT: normal ENT inspection Neck: normal alignment Cardiovascular: normal peripheral pulses, normal rate, regular rhythm Respiratory/Chest: chest wall non-tender, lungs clear, normal breath sounds Abdomen: normal bowel sounds, non tender, soft Extremities: normal inspection Edema: no edema noted Arm (L), no edema noted Arm (R), no edema noted Leg (L), no edema noted Leg (R), no edema noted Pedal (L), no edema noted Pedal (R), no edema noted Generalized Neurologic: motor weakness Skin: normal pigmentation, warm/dry Juaquin Ramos DO Feb 07, 2019 13:47
--- NOTE | 2019-02-07 14:05 | NUR ---
NURSE NOTES: Telephone report given to [facility] staff/RUDDY Ruvalcaba.
[2019-02-07 16:00] VITALS: BP 129/53
--- NOTE | 2019-02-07 16:00 | NUR ---
NURSE NOTES: No episode of seizure within the shift.
[2019-02-07] MEDS ORDERED: NS 275ml ONE (16:55)
[2019-02-07] MEDS ORDERED: D5 1/2NS 1000ml IV ONE (16:55)
--- NOTE | 2019-02-07 16:56 | NUR ---
INTER-FACILITY TRANSFER: Patient transferred to [facility], per Dr. Rodriguez. Report given to [facility] RT/Varun. Patient transferred with valuable/eyeglass and no medications. Belongings verified upon transfer and given to [facility] ambulance staff. Family/Laura Bowling notified of transfer. Patient remains vent dependent.
--- NOTE | 2019-02-08 02:15 | Consultation ---
DATE OF CONSULTATION: 02/07/2019 GASTROENTEROLOGY CONSULTATION CONSULTING PHYSICIAN: Wilmer Cardenas M.D. CHIEF COMPLAINT: Diarrhea. HISTORY OF PRESENT ILLNESS: This is a 78-year-old female with past medical history of chronic trach and vent patient and dysphagia. The patient with G-tube, comes from [facility], was having seizure activity. The patient also is having severe diarrhea, so GI consult was requested for evaluation. PAST MEDICAL HISTORY: 1. Chronic respiratory failure. 2. Dysphagia with G-tube. 3. Seizure disorder. 4. Constipation. 5. Hypothyroidism. ALLERGIES: Peanuts. MEDICATIONS: Please see medication reconciliation list. SOCIAL HISTORY: Currently lives in a [facility]. No history of tobacco, alcohol, or drug abuse. FAMILY HISTORY: Noncontributory. REVIEW OF SYSTEMS: Unable to obtain. PHYSICAL EXAMINATION: VITAL SIGNS: Temperature 98.2, pulse 70, respirations 18, and blood pressure is 130/60. HEENT: Normocephalic and atraumatic. Sclerae anicteric. NECK: Supple with tracheostomy in place. LUNGS: Decreased breath sounds bilaterally. CARDIOVASCULAR: Regular rate and rhythm. Plus S1 and S2. There is a soft murmur in the left sternal border. ABDOMEN: Soft and nontender. No rebound. No guarding. No peritoneal sign. G-tube in place. EXTREMITIES: No cyanosis, no clubbing. LABORATORY DATA: White count is 6.3, hemoglobin 11.8, hematocrit 34, MCV of 101, platelet count is 155. Chem, sodium 132, potassium 3.1, BUN is 10, creatinine 0.5. ASSESSMENT AND PLAN: The patient is a 78-year-old female with respiratory failure, on chronic vent, dysphagia with G-tube, and microcytic anemia. PLAN: The patient is apparently getting discharged. C. difficile came back negative. Diarrhea according to the nurses has improved. Given the C. difficile is negative, we will start the patient on Imodium p.r.n. Follow labs. Anemia workup as an outpatient, given the patient most probably going to get discharged tonight. To follow if the patient stays tomorrow and make further recommendation. I want to thank, Dr. Juaquin Ramos, for this kind referral. Wilmer Herbie Cardenas DR: LIDIA JOB#: [id number] CC: Juaquin Ramos D.O.
--- NOTE | 2019-02-08 10:29 | Discharge Summary ---
Discharge Summary Discharge Summary _ DATE OF ADMISSION: 02/04/2019 DATE OF DISCHARGE: 02/07/2019 DISCHARGED BY: Dr. Juaquin Ramos CONSULTANTS: Dr. Bob Dudley [facility] HOSPITAL COURSE: Patient is a 78-year-old female, from [facility], was transported by EMS after a witnessed seizure at the long-term facility. Patient is vent dependent with a tracheostomy. A dose of Dilantin was administered after decision her. She has medical history significant for CHF, hypothyroidism, seizure disorder, CVA, diabetes mellitus, hypertension, COPD, coronary artery disease with history of prior NH, and history of abdominal wall cellulitis. On evaluation at ED, vital signs were stable. She was given IV hydration. She was noted to have a leak in the tracheostomy tube. A new longer tube was inserted. At work did not show any leukocytosis. Hemoglobin and hematocrit were stable. Lites were normal. Dilantin level normal. Urinalyses was positive for nitrites, +3 leukocyte esterase, 0-2 RBC and 15-20 urine WBC. EKG shows sinus rhythm with first-degree AV block. Chest x-ray showed pulmonary vascular congestion. She was given Rocephin for UTI. She was then admitted for evaluation of seizures, and UTI. Polygraph Operator was consulted for vent management. She was placed on DVT prophylaxis. G-tube feeding was resumed. She was placed on seizure precautions. Neurologist was consulted. She was continued on Dilantin 300 mg every 12 hours via G-tube and Keppra 1500 mg every 12 hours. Patient had diarrhea. C. difficile was negative. She was given Imodium. Diarrhea improved. Rectal tube was discontinued. There was no further seizure episodes. She was discharged back to custodial. FINAL DIAGNOSES: Seizure disorder with acute exacerbation Diarrhea with negative C. difficile Hypothyroidism Chronic respiratory failure vent dependent G-tube status Anoxic brain injury Hypertension Quadriplegia/ functional quadriplegia DISPOSITION: Patient was discharged to a SNF. DISCHARGE MEDICATIONS: Refer to Discharge Medication List. I have been assigned to complete a discharge summary on this account, I was not involved with the patient's management. Jeana Larios NP Feb 08, 2019 10:29
--- NOTE | 2019-02-08 14:06 | NUR ---
*-* INSURANCE *-* DISCHARGE SUMMARY HAVE BEEN FAXED TO: [facility] NCM: KERON /ONEIL P- [phone] F- [phone]....REVIEW/ CLINICAL
== END 2019-02-07 16:56 | DRG 100 ==
LOC: EDBD 13:43 → EDBEDREQ 14:49 → EMR 15:52 → 2W 15:56 → EDBEDREQ 16:35 → OBSVTOIN 21:58 → 2W 02-05 02:38
PROC: 5A1945Z Respiratory Ventilation, 24-96 Consecutive Hours (ICD-10-PCS; principal; 2019-02-04)
DX: G40.919 Epilepsy, unspecified, intractable, without status epilepticus (principal); R53.2 Functional quadriplegia; J96.10 Chronic respiratory failure, unspecified whether with hypoxia or hypercapnia; I50.32 Chronic diastolic (congestive) heart failure; N39.0 Urinary tract infection, site not specified; G93.1 Anoxic brain damage, not elsewhere classified; E46 Unspecified protein-calorie malnutrition; Z43.1 Encounter for attention to gastrostomy; K92.2 Gastrointestinal hemorrhage, unspecified; Z99.11 Dependence on respirator [ventilator] status; R40.3 Persistent vegetative state; E03.9 Hypothyroidism, unspecified; I10 Essential (primary) hypertension; Z43.0 Encounter for attention to tracheostomy; R19.7 Diarrhea, unspecified; R13.10 Dysphagia, unspecified; I44.1 Atrioventricular block, second degree
CPT/HCPCS: 36415; 71045; 80048; 80053; 80185; 81003; 82550; 84484; 85025; 87070; 87081; 87086; 87181; 87205; 87324; 93005; 94002; 94003; 94640; 96360; 96361; 97803; 99285; J8499

== ENCOUNTER 2019-11-11 09:08 | Inpatient (IN) | payer MEDICARE, MEDICAID ==
[~2019-11-11] VITALS: Ht 160 cm; Wt 92.2 kg
[2019-11-11] VITALS (10 sets, daily range): BP systolic 88–106; BP diastolic 46–62
[~2019-11-11 09:08] MED LIST changes: +CRANBERRY425 MG GT; +PHENYTOIN100 MG/4 M GT
[2019-11-11 09:34] LABS: APPEARANCE,URINE SLIGHTLY CLOUDY; BILIRUBIN, URINE NEGATIVE (NEGATIVE); GLUCOSE, URINE (UA) NEGATIVE (NEGATIVE); KETONES,URINE NEGATIVE (NEGATIVE); LEUKOCYTE ESTERASE ,URINE 3+ (NEGATIVE); NITRITE,URINE POSITIVE (NEGATIVE); PH,URINE 7 (4.5-8.0); PROTEIN,URINE 1+ (NEGATIVE); UROBILINOGEN,URINE NORMAL MG/DL (0.0-1.0)
[2019-11-11 09:38] LABS: COLOR,URINE YELLOW
[2019-11-11 09:41] LABS: BASOPHILS % (AUTO) 0.6 % (0.0-2.0); HEMATOCRIT 36.9 % (37.0-47.0); HEMOGLOBIN 12.7 G/DL (12.0-16.0); LYMPHOCYTES % (AUTO) 16.1 % (20.0-45.0); MEAN CORPUSCULAR VOLUME 98 FL (80-99); MONOCYTES % (AUTO) 9.5 % (1.0-10.0); NEUTROPHILS % (AUTO) 69.8 % (45.0-75.0); PLATELET COUNT 211 K/UL (150-450); RED BLOOD COUNT 3.78 M/UL (4.20-5.40); RED CELL DISTRIBUTION WIDTH 13.9 % (11.6-14.8); WHITE BLOOD COUNT 8.6 K/UL (4.8-10.8)
--- NOTE | 2019-11-11 09:43 | Emergency Room Report ---
History of Present Illness General Chief Complaint: Fever Source: Medical Record Present Illness HPI 79-year-old female history of chronic respiratory failure, hypertension, seizure disorder presented after recurrent seizure. Patient reportedly had a 45 -second generalized tonic-clonic seizure yesterday. [facility] reported a fever last night but none today. No report of coughing change in ventilator settings or other abnormalities. Patient unable to provide any history due to her baseline mental status. She does follow commands. She does follow commands. Patient currently takes Dilantin for seizures. Allergies: Coded Allergies: PEANUT (Verified Allergy, Unknown, 09/22/16) Uncoded Allergies: PEANUTS (Allergy, Unknown, 02/04/19) Patient History Past Medical History: see triage record Now: No Reviewed Nursing Documentation: PMH: Agreed; PSxH: Agreed Nursing Documentation-PMH Hx Cardiac Problems: Yes - HF, SEPSIS, QUADRIPLEGIA, STEMI Hx Hypertension: Yes Hx Pacemaker: No Hx Asthma: No Hx COPD: Yes - PNA, CHRONIC RESPIRATORY FAILURE, TRACHEOSTOMY Hx Diabetes: Yes - DM 1 Hx Cancer: Yes Hx Gastrointestinal Problems: Yes - DIVERTICULOSIS Hx Neurological Problems: Yes - quadriplegia, anoxic brain damage Hx Cerebrovascular Accident: Yes - Encephalpathy Hx Transient Ischemic Attacks: No Hx Dementia: Yes Hx Alzheimer's Disease: No Hx Parkinson's Disease: No Hx Meningitis: No Hx Seizures: Yes Hx Epilepsy: No Hx Multiple Sclerosis: No Hx Cerebral Palsy: No Hx Amyotrophic Lat Sclerosis: No Hx Guillian-Hoyt Syndrome: No Hx Paralysis: Yes - CVA Hx Peripheral Neuropathy: No Hx Spinal Cord Injury: No Hx Head Trauma: No Hx Traumatic Brain Injury: No Hx Memory Loss: Yes Hx Concentration Difficulty: Yes Hx Speech Problem: Yes Hx Tremors: No Hx Vertigo: No Hx Dizziness: No Hx Syncope: No Hx Headaches: No Hx Aphasia: No Hx Dysphasia: No Hx Weakness: Yes Hx Fatigue: No Hx Neurologic Surgery: No Hx Brain Shunt: No Review of Systems All Other Systems: limited - Secondary to baseline mental status Physical Exam Vital Signs Date Time Temp Pulse Resp B/P (MAP) Pulse Ox O2 Delivery O2 Flow Rate FiO2 11/11/19 09:09 97.0 68 16 120/70 (87) 95 Mechanical Ventilator 5.0 11/11/19 09:22 40 Sp02 EP Interpretation: reviewed, normal General Appearance: no apparent distress, Chronically Ill Head: normocephalic, atraumatic Eyes: bilateral eye PERRL, bilateral eye EOMI ENT: hearing grossly normal, moist mucus membranes Neck: full range of motion, supple, tracheotomy Respiratory: lungs clear, normal breath sounds, no rhonchi, no respiratory distress, no retraction, no wheezing Cardiovascular #1: normal peripheral pulses, regular rate, rhythm, no murmur Gastrointestinal: non tender, soft, non-distended, no guarding Neurologic: alert, oriented x3, no focal defects Skin: normal color, warm/dry Medical Decision Making Diagnostic Impression: Primary Impression: Urinary tract infection Additional Impression: Recurrent seizures ER Course Differential diagnosis included but not limited to breakthrough seizure, subtherapeutic Dilantin level, infectious process to name a few. Vital signs stable on arrival. Patient in no acute distress. Laboratory studies and Dilantin level sent. Dilantin level was therapeutic. Patient's urinalysis consistent with infection so IV Rocephin was given. Due to patient's reported recurrent seizure with UTI will admit to the stepdown unit. Patient admitted to . Laboratory Tests Test 11/11/19 09:14 White Blood Count 8.6 K/UL (4.8-10.8) Red Blood Count 3.78 M/UL (4.20-5.40) L Hemoglobin 12.7 G/DL (12.0-16.0) Hematocrit 36.9 % (37.0-47.0) L Mean Corpuscular Volume 98 FL (80-99) Mean Corpuscular Hemoglobin 33.7 PG (27.0-31.0) H Mean Corpuscular Hemoglobin Concent 34.5 G/DL (32.0-36.0) Red Cell Distribution Width 13.9 % (11.6-14.8) Platelet Count 211 K/UL (150-450) Mean Platelet Volume 9.7 FL (6.5-10.1) Neutrophils (%) (Auto) 69.8 % (45.0-75.0) Lymphocytes (%) (Auto) 16.1 % (20.0-45.0) L Monocytes (%) (Auto) 9.5 % (1.0-10.0) Eosinophils (%) (Auto) 4.0 % (0.0-3.0) H Basophils (%) (Auto) 0.6 % (0.0-2.0) Urine Color Yellow Urine Appearance Slightly cloudy Urine pH 7 (4.5-8.0) Urine Specific [place] 1.010 (1.005-1.035) Urine Protein 1+ (NEGATIVE) H Urine Glucose (UA) Negative (NEGATIVE) Urine Ketones Negative (NEGATIVE) Urine Blood 2+ (NEGATIVE) H Urine Nitrite Positive (NEGATIVE) H Urine Bilirubin Negative (NEGATIVE) Urine Urobilinogen Normal MG/DL (0.0-1.0) Urine Leukocyte Esterase 3+ (NEGATIVE) H Urine RBC 15-20 /HPF (0 - 2) H Urine WBC 30-40 /HPF (0 - 2) H Urine Squamous Epithelial Cells Moderate /LPF (NONE/OCC) H Urine Bacteria Many /HPF (NONE) H Sodium Level 137 MMOL/L (136-145) Potassium Level 3.8 MMOL/L (3.5-5.1) Chloride Level 99 MMOL/L (98-107) Carbon Dioxide Level 29 MMOL/L (21-32) Anion Gap 9 mmol/L (5-15) Blood Urea Nitrogen 19 mg/dL (7-18) H Creatinine 0.6 MG/DL (0.55-1.30) Estimate Glomerular Filtration Rate > 60 mL/min (>60) Glucose Level 106 MG/DL (74-106) Lactic Acid Level 1.10 mmol/L (0.4-2.0) Calcium Level 9.6 MG/DL (8.5-10.1) Total Bilirubin 0.4 MG/DL (0.2-1.0) Aspartate Amino Transferase (AST) 33 U/L (15-37) Alanine Aminotransferase (ALT) 30 U/L (12-78) Alkaline Phosphatase 270 U/L (46-116) H Total Protein 8.6 G/DL (6.4-8.2) H Albumin 2.4 G/DL (3.4-5.0) L Globulin 6.2 g/dL Albumin/Globulin Ratio 0.4 (1.0-2.7) L Phenytoin (Dilantin) Level 18.9 ug/mL (10-20) Microbiology Date/Time Source Procedure Growth Status 11/11/19 00:00 Nasal Nares - Final Complete 11/11/19 00:00 Nasal Nares - Final Complete EKG Diagnostic Results Rate: normal Rhythm: NSR Other Impression RBBB, 1st degree AV block Chest X-Ray Diagnostic Results Chest X-Ray Diagnostic Results : Chest X-Ray Ordered: Yes # of Views/Limited/Complete: 1 View Indication: Other - Fever Interpretation: no consolidation Impression: Other - Poor inspiratory film, cardiomegaly noted Last Vital Signs Date Time Temp Pulse Resp B/P (MAP) Pulse Ox O2 Delivery O2 Flow Rate FiO2 11/11/19 09:22 80 20 40 11/11/19 09:09 97.0 120/70 (87) 95 Mechanical Ventilator 5.0 Status: unchanged Disposition: ADMITTED INPATIENT Condition: Serious Referrals: Juaquin Ramos DO (PCP) Samson Correa M.D. Nov 11, 2019 09:43
[2019-11-11 09:45] LABS: ANION GAP 9 mmol/L (5-15); BLOOD UREA NITROGEN 19 mg/dL (7-18); CALCIUM 9.6 MG/DL (8.5-10.1); CARBON DIOXIDE 29 MMOL/L (21-32); CHLORIDE 99 MMOL/L (98-107); CREATININE 0.6 MG/DL (0.55-1.30); POTASSIUM 3.8 MMOL/L (3.5-5.1); SODIUM 137 MMOL/L (136-145)
[2019-11-11 09:55] LABS: ALANINE AMINOTRANSFERASE 30 U/L (12-78); ALBUMIN 2.4 G/DL (3.4-5.0); ALBUMIN/GLOBULIN RATIO 0.4 (1.0-2.7); ALKALINE PHOSPHATASE 270 U/L (46-116); ASPARTATE AMINO TRANSFERASE 33 U/L (15-37); BILIRUBIN,TOTAL 0.4 MG/DL (0.2-1.0)
[2019-11-11] MEDS ORDERED: cefTRIAXone 1 GM in NS 55 ML IVPB ONE (10:30)
--- NOTE | 2019-11-11 12:07 | Diagnostic Imaging Report ---
Indication: Dyspnea Comparison: 02/03/2019 A single view chest radiograph was obtained. Findings: Tracheostomy again noted. There is evidence of pulmonary vascular congestion with cardiomegaly. The lung bases especially on the left are obscured by breast attenuation. IMPRESSION: Suspected CHF
[2019-11-11] MEDS ORDERED: Albuterol/Ipratropium 3ml neb HHN PRN (14:30)
[2019-11-11] MEDS ORDERED: Acetaminophen 650mg/20.3ml GT PRN (14:30)
--- NOTE | 2019-11-11 18:05 | Infectious Diseases Prog Note ---
Assessment/Plan Assessment/Plan Full consult dictated: A) 1) uti/pyelonephritis, fevers 2) pmh noted 3) allergies - nkda P) 1) zosyn 2) check urine culture 3) thanks Subjective Allergies: Coded Allergies: PEANUT (Verified Allergy, Unknown, 09/22/16) Uncoded Allergies: PEANUTS (Allergy, Unknown, 02/04/19) Objective Vital Signs Last 24 Hour Vital Signs Date Time Temp Pulse Resp B/P (MAP) Pulse Ox O2 Delivery O2 Flow Rate FiO2 11/11/19 17:29 77 18 45 11/11/19 16:29 Mechanical Ventilator 45.0 11/11/19 16:18 45 11/11/19 16:00 74 11/11/19 15:15 71 18 45 11/11/19 13:31 Mechanical Ventilator 45.0 11/11/19 12:28 81 22 45 11/11/19 12:15 98.2 87 18 105/56 95 Mechanical Ventilator 5.0 40 11/11/19 12:08 98.2 87 18 105/56 95 Mechanical Ventilator 5.0 40 11/11/19 09:22 80 20 40 11/11/19 09:20 68 16 Mechanical Ventilator 5.0 11/11/19 09:20 97.0 16 105/56 95 Mechanical Ventilator 5.0 11/11/19 09:09 97.0 68 16 120/70 (87) 95 Mechanical Ventilator 5.0 Height (Feet): 5 Height (Inches): 3.00 Weight (Pounds): 191 Microbiology Date/Time Source Procedure Growth Status 11/11/19 00:00 Nasal Nares - Final Complete 11/11/19 00:00 Nasal Nares - Final Complete Laboratory Tests Test 11/11/19 09:14 White Blood Count 8.6 K/UL (4.8-10.8) Red Blood Count 3.78 M/UL (4.20-5.40) L Hemoglobin 12.7 G/DL (12.0-16.0) Hematocrit 36.9 % (37.0-47.0) L Mean Corpuscular Volume 98 FL (80-99) Mean Corpuscular Hemoglobin 33.7 PG (27.0-31.0) H Mean Corpuscular Hemoglobin Concent 34.5 G/DL (32.0-36.0) Red Cell Distribution Width 13.9 % (11.6-14.8) Platelet Count 211 K/UL (150-450) Mean Platelet Volume 9.7 FL (6.5-10.1) Neutrophils (%) (Auto) 69.8 % (45.0-75.0) Lymphocytes (%) (Auto) 16.1 % (20.0-45.0) L Monocytes (%) (Auto) 9.5 % (1.0-10.0) Eosinophils (%) (Auto) 4.0 % (0.0-3.0) H Basophils (%) (Auto) 0.6 % (0.0-2.0) Urine Color Yellow Urine Appearance Slightly cloudy Urine pH 7 (4.5-8.0) Urine Specific [place] 1.010 (1.005-1.035) Urine Protein 1+ (NEGATIVE) H Urine Glucose (UA) Negative (NEGATIVE) Urine Ketones Negative (NEGATIVE) Urine Blood 2+ (NEGATIVE) H Urine Nitrite Positive (NEGATIVE) H Urine Bilirubin Negative (NEGATIVE) Urine Urobilinogen Normal MG/DL (0.0-1.0) Urine Leukocyte Esterase 3+ (NEGATIVE) H Urine RBC 15-20 /HPF (0 - 2) H Urine WBC 30-40 /HPF (0 - 2) H Urine Squamous Epithelial Cells Moderate /LPF (NONE/OCC) H Urine Bacteria Many /HPF (NONE) H Sodium Level 137 MMOL/L (136-145) Potassium Level 3.8 MMOL/L (3.5-5.1) Chloride Level 99 MMOL/L (98-107) Carbon Dioxide Level 29 MMOL/L (21-32) Anion Gap 9 mmol/L (5-15) Blood Urea Nitrogen 19 mg/dL (7-18) H Creatinine 0.6 MG/DL (0.55-1.30) Estimat Glomerular Filtration Rate > 60 mL/min (>60) Glucose Level 106 MG/DL (74-106) Lactic Acid Level 1.10 mmol/L (0.4-2.0) Calcium Level 9.6 MG/DL (8.5-10.1) Total Bilirubin 0.4 MG/DL (0.2-1.0) Aspartate Amino Transf (AST/SGOT) 33 U/L (15-37) Alanine Aminotransferase (ALT/SGPT) 30 U/L (12-78) Alkaline Phosphatase 270 U/L (46-116) H Total Protein 8.6 G/DL (6.4-8.2) H Albumin 2.4 G/DL (3.4-5.0) L Globulin 6.2 g/dL Albumin/Globulin Ratio 0.4 (1.0-2.7) L Phenytoin (Dilantin) Level 18.9 ug/mL (10-20) Current Medications Medications (Trade) Dose Ordered Sig/Boubacar Route PRN Reason Start Time Stop Time Status Last Admin Dose Admin Acetaminophen (Tylenol) 650 mg Q6H PRN GT Mild Pain/Temp > 100.5 11/11/19 14:30 12/11/19 14:29 Albuterol/ Ipratropium (Albuterol/ Ipratropium) 3 ml Q4H PRN HHN Shortness of Breath 11/11/19 14:30 11/16/19 14:29 Ascorbic Acid (Vitamin C) 500 mg DAILY NG 11/12/19 09:00 12/12/19 08:59 Docusate Sodium (Colace) 100 mg DAILY GT 11/12/19 09:00 12/12/19 08:59 Ferrous Sulfate (Feosol) 300 mg THREE TIMES A DAY GT 11/11/19 18:00 12/11/19 17:59 Levothyroxine Sodium (Synthroid) 150 mcg DAILY@0630 GT 11/12/19 06:30 12/12/19 06:29 Multivitamins (Multivitamins W/ Minerals 15ml Liquid) 15 ml DAILY GT 11/12/19 09:00 12/12/19 08:59 Phenytoin (Dilantin) 250 mg EVERY 12 HOURS GT 11/11/19 21:00 12/11/19 20:59 Piperacillin Sod/ Tazobactam Sod 3.375 gm/Dextrose 100 ml @ 25 mls/hr EVERY 8 HOURS IVPB 11/11/19 22:00 11/16/19 21:59 Leslie Corrales MD Nov 11, 2019 18:05
[2019-11-11] MEDS: Ferrous Sulfate 300 MG/5 ML UDC GT SCH (18:27)
--- NOTE | 2019-11-11 18:45 | History and Physical Report ---
DATE OF ADMISSION: 11/11/2019 HISTORY OF PRESENT ILLNESS: This is a 79-year-old female with history of chronic respiratory failure, chronic tracheostomy, and seizure disorder. She was sent in from longterm with a history of having recurrent seizures. The patient apparently was reported to have a 45-second tonic-clonic seizure at the facility. The patient recently also found to have fever at home, but there was no other symptoms noted. The patient unable to provide further information. She is nonverbal and encephalopathic. PAST MEDICAL HISTORY: Notable for previous cardiac issues/CAD, congestive heart failure, sepsis, quadriplegia, chronic respiratory failure, chronic tracheostomy, diverticulosis, anoxic brain injury, chronic encephalopathy, dementia. REVIEW OF SYSTEMS: Not obtainable. PAST SURGICAL HISTORY: No surgeries noted except for tracheostomy and G-tube placement. There is no pacemaker in place. MEDICATIONS: List of home medications reviewed and reconciled in the chart include Dilantin, DuoNeb, Synthroid, Colace. PHYSICAL EXAMINATION: GENERAL: Reveals an elderly female. Tracheostomy site is clean. VITAL SIGNS: Blood pressure is 105/50, heart rate is 74, respirations 20, she is afebrile, O2 saturation is 98% on 5 liters of oxygen. Vent is AC 18, tidal volume 450. CHEST: Clear breath sounds bilaterally. ABDOMEN: Soft. EXTREMITIES: There is no edema. NEUROLOGIC: Unable to elicit because of poor cooperation. She has bilateral early footdrop. No obvious decubiti are noted on my initial examination. LABORATORY DATA: Lab testing shows normal CBC and BMP. Glucose is 106. Alkaline phosphatase 270. Toxicology is negative. Dilantin level is 18. Urinalysis shows pyuria. Albumin is 2.4. IMPRESSION: 1. Borderline syncope with supratherapeutic Dilantin level. 2. Questionable seizure. 3. UTI. 4. Chronic respiratory failure. DISCUSSION: Admit to the hospital. We will consult ID. Continue vent. Continue present medications care. We will follow carefully. Grabiel Hogan M.D. DR: [place] JOB#: [id number] CC:
[2019-11-11] MEDS: Phenytoin Susp 100mg/4ml GT SCH (21:11)
--- NOTE | 2019-11-11 21:30 | Consultation ---
DATE OF CONSULTATION: 11/11/2019 INFECTIOUS DISEASE CONSULTATION CONSULTING PHYSICIAN: Leslie Corrales M.D. ATTENDING PHYSICIAN: Grabiel Hogan M.D. REFERRING PHYSICIAN: Grabiel Hogna M.D. REASON FOR CONSULTATION: Urinary tract infection. REASON FOR ADMISSION: Seizures. She also comes in for fevers. HISTORY OF PRESENT ILLNESS: This is a 79-year-old female with history of respiratory failure, trach and vent. She currently does not have a Newman. The patient presents to [facility] with looks like had a 45 second generalized tonic clonic seizure. The patient also had a fever. The patient's workup shows that she has a UA that had 30 to 40 white blood cells and many bacteria. Positive nitrite and 3+ leukocyte esterase. The patient likely has complicated urinary tract infection, possible pyelonephritis with fevers. Infectious Disease consultation was requested for antibiotic management. The patient the patient currently is on Rocephin, I am going to change the patient to Zosyn for complicated urinary tract infection, fevers, and pyelonephritis. Chest x-ray shows congestive heart failure per the report. We will continue Zosyn for now. REVIEW OF SYSTEMS: CONSTITUTIONAL: The patient cannot give review of significant review of systems because she has trach vent, but she is responsive. She has generalized fatigue. She came in with fever history. Currently, no fever or chills. HEAD AND NECK: She has trach. CARDIAC: No chest pain. GASTROINTESTINAL: No nausea, vomiting, or diarrhea. GENITOURINARY: She has no Newman. PULMONARY: On a vent. No significant secretions. SKIN: No rash. EXTREMITIES: No pain. NEUROLOGIC: No seizures. Wounds were reviewed. PAST MEDICAL HISTORY: Extensive. The patient has a past medical history of the following. The patient has a past medical history of quadriplegia, STEMI, CAD, sepsis, hypertension, chronic obstructive pulmonary disease, diabetes, cancer history per the records, encephalopathy, diverticulosis, anoxic brain damage, quadriplegia, seizure history, and dementia. ALLERGIES: Include peanuts. No antibiotic allergies. SOCIAL HISTORY: Negative for smoking, alcohol, and drug use. FAMILY HISTORY: Noncontributory. MEDICATIONS: Upon reviewing the MAR, she is on the following medications. She is on Rocephin, docusate, multivitamin, ascorbic acid, levothyroxine, phenytoin, ferrous sulfate, acetaminophen, and albuterol. Outside medications were noted and reconciliated. Rocephin will be changed to Zosyn. PHYSICAL EXAMINATION: VITAL SIGNS: Vital signs are as follows. The patient's temperature is 98.2, pulse rate is 74, respiratory rate 18, saturation FiO2 45%, saturation 95%, blood pressure 105/56. GENERAL: Alert and responsive. HEAD AND NECK: Eye exam, no icterus. Normocephalic. She has a trach, which is intact. HEART: Regular. No gallop or murmur. ABDOMEN: Soft. Positive bowel sounds. Nontender. LUNGS: Fairly clear bilaterally. Maybe occasional crackles. No obvious rales. SKIN: No rash. Wounds were reviewed, not acutely infected, mostly clean granulating base. MUSCULOSKELETAL: No effusion. Legs are without cellulitis. PERIPHERAL VASCULAR: No cyanosis. GENITOURINARY: No Newman. LINE SITES: Without phlebitis. NEUROLOGIC: Generalized weakness and responsive. Opens eyes. LABORATORY DATA: Laboratory data is as follows. Urinalysis is positive for nitrite, 3+ leukocyte esterase, 30 to 40 white blood cells, many bacteria. Creatinine is 0.6. White count 8.6 and hemoglobin 12.7. Cultures are pending. Influenza screen is negative. Blood and urine culture are pending. IMAGING STUDIES: Chest x-ray was suggestive of congestive heart failure. Report was noted and reviewed. ASSESSMENT AND PLAN: 1. The patient has complicated urinary tract infection/pyelonephritis with fever history. She also has history of seizures. Chest x-ray with congestive heart failure. At this time, we will change Rocephin to Zosyn for gram-negative coverage. Continue with Zosyn for complicated urinary tract infection/pyelonephritis and fevers. Check blood cultures and urine culture. Check followup laboratories and chest x-ray. Continue Zosyn for now for complicated urinary tract infection. 2. The patient has history of trach, vent, and respiratory failure. 3. History of sepsis. 4. Quadriplegia and weakness. 5. History of CAD and STEMI. 6. Hypertension. 7. Diabetes. 8. Blood sugar and blood pressure treatment per primary team for diabetes and hypertension. 9. Dementia. 10. Seizure history. 11. Chronic obstructive pulmonary disease. 12. History of diverticulosis. 13. Quadriplegia. 14. Encephalopathy. 15. Continue treatment per primary consultants. 16. Allergic to peanuts. 17. Social history is negative. 18. Family history is noncontributory. 19. MAR is noted. 20. Case was discussed with RN. Leslie Corrales M.D. DR: [place] JOB#: [id number] CC:
[2019-11-11] MEDS: NovoLOG Insulin Flexpen SUBQ SCH (22:00)
[2019-11-11] MEDS ORDERED: DOPamine 400mg/250ml 250 ML IV ONE (22:54)
[2019-11-11] MEDS: DOPamine 400mg/250ml 250 ML IV SCH (23:48)
[2019-11-12] VITALS (65 sets, daily range): BP systolic 76–157; BP diastolic 37–80
--- NOTE | 2019-11-12 04:03 | Emergency Room Report ---
History of Present Illness General Chief Complaint: Fever Source: Medical Record Present Illness HPI This patient was admitted to the ICU for respiratory failure. She was intubated. Her blood pressure continued to drop I was asked to place a central line. Central line was placed without any difficulty. Allergies: Coded Allergies: PEANUT (Verified Allergy, Unknown, 09/22/16) Uncoded Allergies: PEANUTS (Allergy, Unknown, 02/04/19) Patient History Now: No Nursing Documentation-PMH Past Medical History Deferred: Pt Cognitively Impaired Hx Cardiac Problems: Yes - HF, SEPSIS, QUADRIPLEGIA, STEMI Hx Hypertension: Yes Hx Pacemaker: No Hx Asthma: No Hx COPD: Yes Hx Diabetes: Yes Hx Cancer: Yes Hx Gastrointestinal Problems: Yes - DIVERTICULOSIS Hx Neurological Problems: Yes Hx Cerebrovascular Accident: Yes - Encephalpathy Hx Transient Ischemic Attacks: No Hx Dementia: No Hx Alzheimer's Disease: No Hx Parkinson's Disease: No Hx Meningitis: No Hx Seizures: Yes Hx Epilepsy: Yes Hx Multiple Sclerosis: No Hx Cerebral Palsy: No Hx Amyotrophic Lat Sclerosis: No Hx Guillian-[place] Syndrome: No Hx Paralysis: Yes - CVA Hx Peripheral Neuropathy: No Hx Spinal Cord Injury: No Hx Head Trauma: No Hx Traumatic Brain Injury: No Hx Memory Loss: Yes Hx Concentration Difficulty: Yes Hx Speech Problem: Yes Hx Tremors: No Hx Vertigo: No Hx Dizziness: No Hx Syncope: No Hx Headaches: No Hx Aphasia: No Hx Dysphasia: No Hx Weakness: Yes Hx Fatigue: No Hx Neurologic Surgery: No Hx Brain Shunt: No Physical Exam Vital Signs Date Time Temp Pulse Resp B/P (MAP) Pulse Ox O2 Delivery O2 Flow Rate FiO2 11/11/19 09:09 97.0 68 16 120/70 (87) 95 Mechanical Ventilator 5.0 11/11/19 09:22 40 Procedures Central Line Central Line : Consent: Other Central Line Lumen: triple Maximal Sterile Barrier Tech: yes cap, yes mask, yes sterile gown, yes sterile gloves, yes large sterile sheet, yes hand hygiene, yes chlorhexidine prep Central Line Postion: femoral (R) Anesthesia: local cc's of anesthesia: 10 Complications: none Central Line Post Position: sutured, good blood return Attempts: One Patient Tolerated: Well Complications: None Medical Decision Making Diagnostic Impression: Primary Impression: Urinary tract infection Additional Impression: Recurrent seizures Last Vital Signs Date Time Temp Pulse Resp B/P (MAP) Pulse Ox O2 Delivery O2 Flow Rate FiO2 11/12/19 03:13 61 18 45 11/12/19 00:00 Mechanical Ventilator 45.0 11/11/19 23:48 68/32 11/11/19 21:14 95 11/11/19 20:00 98.8 Disposition: ADMITTED INPATIENT Condition: Serious Referrals: Juaquin Ramos DO (PCP) Milton Salcedo MD Nov 12, 2019 04:03
[2019-11-12 05:19] LABS: HEMATOCRIT 36.4 % (37.0-47.0); HEMOGLOBIN 12.7 G/DL (12.0-16.0); MEAN CORPUSCULAR VOLUME 98 FL (80-99); PLATELET COUNT 195 K/UL (150-450); RED BLOOD COUNT 3.72 M/UL (4.20-5.40); RED CELL DISTRIBUTION WIDTH 13.6 % (11.6-14.8); WHITE BLOOD COUNT 15.4 K/UL (4.8-10.8)
[2019-11-12 06:07] LABS: ALANINE AMINOTRANSFERASE 25 U/L (12-78); ALBUMIN 2.4 G/DL (3.4-5.0); ALBUMIN/GLOBULIN RATIO 0.5 (1.0-2.7); ALKALINE PHOSPHATASE 249 U/L (46-116); ANION GAP 9 mmol/L (5-15); ASPARTATE AMINO TRANSFERASE 36 U/L (15-37); BILIRUBIN,TOTAL 1.2 MG/DL (0.2-1.0); BLOOD UREA NITROGEN 15 mg/dL (7-18); CALCIUM 8.6 MG/DL (8.5-10.1); CARBON DIOXIDE 26 MMOL/L (21-32); CHLORIDE 103 MMOL/L (98-107); CREATININE 0.5 MG/DL (0.55-1.30); POTASSIUM 3.6 MMOL/L (3.5-5.1); SODIUM 138 MMOL/L (136-145)
[2019-11-12 06:14] LABS: BILIRUBIN,DIRECT 0.8 MG/DL (0.0-0.3)
[2019-11-12] MEDS: NovoLOG Insulin Flexpen SUBQ SCH ×4 (06:26→21:00)
[2019-11-12] MEDS: DOPamine 400mg/250ml 250 ML IV SCH ×4 (06:29→23:29)
[2019-11-12] MEDS: Ferrous Sulfate 300 MG/5 ML UDC GT SCH ×3 (09:46→18:07)
[2019-11-12] MEDS: Docusate 100mg/10ml Liq GT SCH (09:46)
[2019-11-12] MEDS: Phenytoin Susp 100mg/4ml GT SCH ×2 (09:47→18:05)
[2019-11-12] MEDS: Ascorbic Acid 500mg tab NG SCH (09:48)
[2019-11-12] MEDS: Multivitamins W/Minerals 15 ML UDC GT SCH (09:48)
[2019-11-12] MEDS ORDERED: cefTRIAXone 1 GM in D5W 55 ML IVPB SCH (10:00)
[2019-11-12] MEDS: Zinc Oxide Oint 2oz TOPIC SCH ×2 (11:50→18:05)
--- NOTE | 2019-11-12 12:08 | Pulmonology Progress Note ---
Assessment/Plan Assessment/Plan IMPRESSION: 1. Supratherapeutic Dilantin level. 2. Questionable seizure. 3. UTI. 4. Chronic respiratory failure. 5. Septic shock. DISCUSSION: Seen by cardiology and ID. Continue vent. Continue present medications care. I will follow carefully. Grabiel Hogan M.D. Subjective Interval Events: Transferred to ICU; is on dopamine infusion Constitutional: Reports: no symptoms HEENT: Repors: no symptoms Respiratory: Reports: no symptoms Cardiovascular: Reports: no symptoms Gastrointestinal/Abdominal: Reports: no symptoms Allergies: Coded Allergies: PEANUT (Verified Allergy, Unknown, 09/22/16) Uncoded Allergies: PEANUTS (Allergy, Unknown, 02/04/19) Objective Last 24 Hour Vital Signs Date Time Temp Pulse Resp B/P (MAP) Pulse Ox O2 Delivery O2 Flow Rate FiO2 11/12/19 11:53 111/54 11/12/19 09:15 113 18 60 11/12/19 07:00 55 18 60 11/12/19 07:00 99/47 11/12/19 06:29 134/58 11/12/19 06:00 54 18 117/38 (64) 97 11/12/19 06:00 134/58 11/12/19 05:45 72 19 119/45 (69) 98 11/12/19 05:30 68 18 128/55 (79) 97 11/12/19 05:15 72 18 120/59 (79) 97 11/12/19 05:00 61 18 130/46 (74) 97 11/12/19 05:00 120/59 11/12/19 04:50 64 18 45 11/12/19 04:45 60 18 129/53 (78) 98 11/12/19 04:30 66 18 130/50 (76) 97 11/12/19 04:15 65 18 125/42 (69) 98 11/12/19 04:00 100.0 55 18 127/41 (69) 98 11/12/19 04:00 Mechanical Ventilator 60.0 11/12/19 04:00 127/41 11/12/19 04:00 60 11/12/19 04:00 64 11/12/19 03:30 62 18 111/43 (65) 99 11/12/19 03:15 98 18 122/44 (70) 98 11/12/19 03:13 61 18 45 11/12/19 03:00 77 18 122/51 (74) 99 11/12/19 03:00 122/44 11/12/19 02:15 95 18 118/52 (74) 97 11/12/19 02:00 127/44 11/12/19 02:00 60 18 127/44 (71) 98 11/12/19 01:45 61 18 130/46 (74) 99 11/12/19 01:30 55 18 131/37 (68) 99 11/12/19 01:15 56 18 93/40 (57) 100 11/12/19 01:00 61 18 91/47 (62) 100 11/12/19 01:00 93/40 11/12/19 00:54 81 23 45 11/12/19 00:45 69 18 95/48 (64) 100 11/12/19 00:30 83 18 108/47 (67) 100 11/12/19 00:15 93 18 127/55 (79) 100 11/12/19 00:00 Mechanical Ventilator 45.0 11/12/19 00:00 99.6 87 18 138/51 (80) 100 11/12/19 00:00 127/55 11/12/19 00:00 45 11/11/19 23:48 68/32 11/11/19 23:45 66 18 106/48 (67) 97 11/11/19 23:30 82 18 101/47 (65) 93 11/11/19 23:16 84 24 45 11/11/19 23:15 78 18 101/46 (64) 93 11/11/19 23:00 77 18 99/49 (66) 96 11/11/19 22:45 77 18 99/50 (66) 95 11/11/19 22:00 70 18 100/60 (73) 11/11/19 21:14 40 95 11/11/19 21:10 77 21 45 11/11/19 20:00 77 11/11/19 20:00 98.8 78 18 105/62 (76) 98 3/9/20 20:00 45 11/11/19 20:00 Mechanical Ventilator 45.0 11/11/19 19:16 74 19 45 11/11/19 17:29 77 18 45 11/11/19 16:29 Mechanical Ventilator 45.0 11/11/19 16:18 45 11/11/19 16:00 74 11/11/19 15:15 71 18 45 11/11/19 13:31 Mechanical Ventilator 45.0 11/11/19 12:28 81 22 45 11/11/19 12:15 98.2 87 18 105/56 95 Mechanical Ventilator 5.0 40 11/11/19 12:08 98.2 87 18 105/56 95 Mechanical Ventilator 5.0 40 Intake and Output 11/11/19 11/12/19 19:00 07:00 Intake Total 1017.673 ml Output Total 50 ml Balance 967.673 ml Intake IV Total 1017.673 ml Output Emesis 50 ml # Voids 2 341 General Appearance: no acute distress HEENT: normocephalic, status post trach Respiratory/Chest: chest wall non-tender, normal breath sounds Cardiovascular: normal peripheral pulses Abdomen: normal bowel sounds Microbiology Date/Time Source Procedure Growth Status 11/11/19 09:35 Sputum Gram Stain - Final Resulted 11/11/19 09:35 Sputum Sputum Culture Pending Resulted 11/11/19 00:00 Nasal Nares - Final Complete 11/11/19 00:00 Nasal Nares - Final Complete 11/11/19 09:14 Urine,Clean Catch Urine Culture - Preliminary Gram Negative Bacillus 1 Resulted 11/11/19 10:20 Rectum Received Laboratory Tests 11/11/19 21:37: Arterial Blood pH 7.440, Arterial Blood Partial Pressure CO2 41.6, Arterial Blood Partial Pressure O2 226.1H, Arterial Blood HCO3 27.6H, Arterial Blood Oxygen Saturation 99.0, Arterial Blood Base Excess 3.2H, Best Test Positive 11/12/19 04:30: White Blood Count 15.4#H, Red Blood Count 3.72L, Hemoglobin 12.7, Hematocrit 36.4L, Mean Corpuscular Volume 98, Mean Corpuscular Hemoglobin 34.2H, Mean Corpuscular Hemoglobin Concent 34.9, Red Cell Distribution Width 13.6, Platelet Count 195, Mean Platelet Volume 8.9, Neutrophils (%) (Auto) , Lymphocytes (%) ( Auto) , Monocytes (%) (Auto) , Eosinophils (%) (Auto) , Basophils (%) (Auto) , Differential Total Cells Counted 100, Neutrophils % (Manual) 90H, Lymphocytes % (Manual) 4L, Monocytes % (Manual) 6, Eosinophils % (Manual) 0, Basophils % ( Manual) 0, Band Neutrophils 0, Platelet Estimate Adequate, Platelet Morphology Normal, Red Blood Cell Morphology Normal, Sodium Level 138, Potassium Level 3.6 , Chloride Level 103, Carbon Dioxide Level 26, Anion Gap 9, Blood Urea Nitrogen 15, Creatinine 0.5L, Estimat Glomerular Filtration Rate > 60, Glucose Level 174H , Calcium Level 8.6, Total Bilirubin 1.2H, Direct Bilirubin 0.8H, Aspartate Amino Transf (AST/SGOT) 36, Alanine Aminotransferase (ALT/SGPT) 25, Alkaline Phosphatase 249H, Total Protein 7.5, Albumin 2.4L, Globulin 5.1, Albumin/ Globulin Ratio 0.5L 11/12/19 10:00: Troponin I 0.009, Thyroid Stimulating Hormone (TSH) 0.331L, Phenytoin (Dilantin ) Level 14.5 Current Medications Medications (Trade) Dose Ordered Sig/Boubacar Route PRN Reason Start Time Stop Time Status Last Admin Dose Admin Acetaminophen (Tylenol) 650 mg Q6H PRN GT Mild Pain/Temp > 100.5 11/11/19 14:30 12/11/19 14:29 Albuterol/ Ipratropium (Albuterol/ Ipratropium) 3 ml Q4H PRN HHN Shortness of Breath 11/11/19 14:30 11/16/19 14:29 Ascorbic Acid (Vitamin C) 500 mg DAILY NG 11/12/19 09:00 12/12/19 08:59 11/12/19 09:48 Dextrose (Dextrose 50%) 25 ml Q30M PRN IV Hypoglycemia 11/11/19 20:30 12/11/19 20:29 Dextrose (Dextrose 50%) 50 ml Q30M PRN IV Hypoglycemia 11/11/19 20:30 12/11/19 20:29 Docusate Sodium (Colace) 100 mg DAILY GT 11/12/19 09:00 12/12/19 08:59 11/12/19 09:46 Dopamine HCl/ Dextrose 250 ml @ 0 mls/hr Q24H IV 11/11/19 23:00 12/11/19 22:59 11/12/19 11:53 Ferrous Sulfate (Feosol) 300 mg THREE TIMES A DAY GT 11/11/19 18:00 12/11/19 17:59 11/12/19 09:46 Insulin Aspart (NovoLOG) BEFORE MEALS AND HS SUBQ 11/11/19 22:00 12/11/19 21:59 Levothyroxine Sodium (Synthroid) 150 mcg DAILY@0630 GT 11/12/19 06:30 12/12/19 06:29 Multivitamins (Multivitamins W/ Minerals 15ml Liquid) 15 ml DAILY GT 11/12/19 09:00 12/12/19 08:59 11/12/19 09:48 Ondansetron HCl (Zofran) 4 mg Q6H PRN IVP Nausea & Vomiting 11/12/19 03:00 12/12/19 02:59 11/12/19 03:48 Phenytoin (Dilantin) 250 mg Q12HR@0630,1830 GT 11/12/19 18:30 12/12/19 18:29 Piperacillin Sod/ Tazobactam Sod 3.375 gm/Dextrose 110 ml @ 27.5 mls/hr EVERY 8 HOURS IVPB 11/12/19 14:00 11/16/19 21:59 Sodium Chloride 1,000 ml @ 100 mls/hr Q10H IV 11/11/19 23:30 12/11/19 23:29 11/12/19 09:48 Zinc Oxide (Zinc Oxide) 1 applic BID TOPIC 11/12/19 10:00 12/12/19 09:59 11/12/19 11:50 Grabiel Hogan MD Nov 12, 2019 12:08
--- NOTE | 2019-11-12 12:09 | Consultation ---
Consult Note Consult Note EP consult Full note dictated. # [id number] Faith Mcfadden MD Nov 12, 2019 12:09
[2019-11-12] MEDS ORDERED: Amikacin Rx to dose MISC PRN (13:30)
--- NOTE | 2019-11-12 13:33 | Infectious Diseases Prog Note ---
Assessment/Plan Assessment/Plan A) 1) gram neg uti/pyelonephritis, fevers, ? pna, sepsis/shock 2) pmh noted 3) allergies - nkda P) 1) zosyn, add vancomycin and amikacin 2) f/u on cultures, labs and chest x-ray 3) d/w RN 4) icu care Subjective Constitutional: Reports: fever, other - in icu for low bp and bradycardia HEENT: Reports: congestion Respiratory: Reports: shortness of breath Cardiovascular: Reports: other - + dopamine; Denies: chest pain Gastrointestinal/Abdominal: Denies: nausea, vomiting Allergies: Coded Allergies: PEANUT (Verified Allergy, Unknown, 09/22/16) Uncoded Allergies: PEANUTS (Allergy, Unknown, 02/04/19) Objective Vital Signs Last 24 Hour Vital Signs Date Time Temp Pulse Resp B/P (MAP) Pulse Ox O2 Delivery O2 Flow Rate FiO2 11/12/19 12:00 Mechanical Ventilator 60.0 11/12/19 12:00 60 11/12/19 12:00 52 11/12/19 11:53 111/54 11/12/19 09:15 113 18 60 11/12/19 08:00 Mechanical Ventilator 60.0 11/12/19 08:00 61 11/12/19 08:00 60 11/12/19 07:00 55 18 60 11/12/19 07:00 99/47 11/12/19 06:29 134/58 11/12/19 06:00 54 18 117/38 (64) 97 11/12/19 06:00 134/58 11/12/19 05:45 72 19 119/45 (69) 98 11/12/19 05:30 68 18 128/55 (79) 97 11/12/19 05:15 72 18 120/59 (79) 97 11/12/19 05:00 61 18 130/46 (74) 97 11/12/19 05:00 120/59 11/12/19 04:50 64 18 45 11/12/19 04:45 60 18 129/53 (78) 98 11/12/19 04:30 66 18 130/50 (76) 97 11/12/19 04:15 65 18 125/42 (69) 98 11/12/19 04:00 100.0 55 18 127/41 (69) 98 11/12/19 04:00 Mechanical Ventilator 60.0 11/12/19 04:00 127/41 11/12/19 04:00 60 11/12/19 04:00 64 11/12/19 03:30 62 18 111/43 (65) 99 11/12/19 03:15 98 18 122/44 (70) 98 11/12/19 03:13 61 18 45 11/12/19 03:00 77 18 122/51 (74) 99 11/12/19 03:00 122/44 11/12/19 02:15 95 18 118/52 (74) 97 11/12/19 02:00 127/44 11/12/19 02:00 60 18 127/44 (71) 98 11/12/19 01:45 61 18 130/46 (74) 99 11/12/19 01:30 55 18 131/37 (68) 99 11/12/19 01:15 56 18 93/40 (57) 100 11/12/19 01:00 61 18 91/47 (62) 100 11/12/19 01:00 93/40 11/12/19 00:54 81 23 45 11/12/19 00:45 69 18 95/48 (64) 100 11/12/19 00:30 83 18 108/47 (67) 100 11/12/19 00:15 93 18 127/55 (79) 100 11/12/19 00:00 Mechanical Ventilator 45.0 11/12/19 00:00 99.6 87 18 138/51 (80) 100 11/12/19 00:00 127/55 11/12/19 00:00 45 11/11/19 23:48 68/32 11/11/19 23:45 66 18 106/48 (67) 97 11/11/19 23:30 82 18 101/47 (65) 93 11/11/19 23:16 84 24 45 11/11/19 23:15 78 18 101/46 (64) 93 11/11/19 23:00 77 18 99/49 (66) 96 11/11/19 22:45 77 18 99/50 (66) 95 11/11/19 22:00 70 18 100/60 (73) 11/11/19 21:14 40 95 11/11/19 21:10 77 21 45 11/11/19 20:00 77 11/11/19 20:00 98.8 78 18 105/62 (76) 98 11/11/19 20:00 45 11/11/19 20:00 Mechanical Ventilator 45.0 11/11/19 19:16 74 19 45 11/11/19 17:29 77 18 45 11/11/19 16:29 Mechanical Ventilator 45.0 11/11/19 16:18 45 11/11/19 16:00 74 11/11/19 15:15 71 18 45 11/11/19 13:31 Mechanical Ventilator 45.0 Height (Feet): 5 Height (Inches): 3.00 Weight (Pounds): 191 HEENT: normocephalic, atraumatic, anicteric, status post trach Respiratory/Chest: crackles/rales, rhonchi - bilaterally Cardiovascular: regular rhythm, no gallop/murmur, bradycardia Abdomen: normal bowel sounds, soft, non tender, non distended Microbiology Date/Time Source Procedure Growth Status 11/11/19 09:35 Sputum Gram Stain - Final Resulted 11/11/19 09:35 Sputum Sputum Culture Pending Resulted 11/11/19 00:00 Nasal Nares - Final Complete 11/11/19 00:00 Nasal Nares - Final Complete 11/11/19 09:14 Urine,Clean Catch Urine Culture - Preliminary Gram Negative Bacillus 1 Resulted 11/11/19 10:20 Rectum Received Laboratory Tests Test 11/11/19 21:37 11/12/19 04:30 11/12/19 10:00 Arterial Blood pH 7.440 (7.350-7.450) Arterial Blood Partial Pressure CO2 41.6 mmHg (35.0-45.0) Arterial Blood Partial Pressure O2 226.1 mmHg (75.0-100.0) H Arterial Blood HCO3 27.6 mmol/L (22.0-26.0) H Arterial Blood Oxygen Saturation 99.0 % (95-100) Arterial Blood Base Excess 3.2 (-2-2) H Best Test Positive White Blood Count 15.4 K/UL (4.8-10.8) #H Red Blood Count 3.72 M/UL (4.20-5.40) L Hemoglobin 12.7 G/DL (12.0-16.0) Hematocrit 36.4 % (37.0-47.0) L Mean Corpuscular Volume 98 FL (80-99) Mean Corpuscular Hemoglobin 34.2 PG (27.0-31.0) H Mean Corpuscular Hemoglobin Concent 34.9 G/DL (32.0-36.0) Red Cell Distribution Width 13.6 % (11.6-14.8) Platelet Count 195 K/UL (150-450) Mean Platelet Volume 8.9 FL (6.5-10.1) Neutrophils (%) (Auto) % (45.0-75.0) Lymphocytes (%) (Auto) % (20.0-45.0) Monocytes (%) (Auto) % (1.0-10.0) Eosinophils (%) (Auto) % (0.0-3.0) Basophils (%) (Auto) % (0.0-2.0) Differential Total Cells Counted 100 Neutrophils % (Manual) 90 % (45-75) H Lymphocytes % (Manual) 4 % (20-45) L Monocytes % (Manual) 6 % (1-10) Eosinophils % (Manual) 0 % (0-3) Basophils % (Manual) 0 % (0-2) Band Neutrophils 0 % (0-8) Platelet Estimate Adequate Platelet Morphology Normal Red Blood Cell Morphology Normal Sodium Level 138 MMOL/L (136-145) Potassium Level 3.6 MMOL/L (3.5-5.1) Chloride Level 103 MMOL/L (98-107) Carbon Dioxide Level 26 MMOL/L (21-32) Anion Gap 9 mmol/L (5-15) Blood Urea Nitrogen 15 mg/dL (7-18) Creatinine 0.5 MG/DL (0.55-1.30) L Estimat Glomerular Filtration Rate > 60 mL/min (>60) Glucose Level 174 MG/DL (74-106) H Calcium Level 8.6 MG/DL (8.5-10.1) Total Bilirubin 1.2 MG/DL (0.2-1.0) H Direct Bilirubin 0.8 MG/DL (0.0-0.3) H Aspartate Amino Transf (AST/SGOT) 36 U/L (15-37) Alanine Aminotransferase (ALT/SGPT) 25 U/L (12-78) Alkaline Phosphatase 249 U/L (46-116) H Total Protein 7.5 G/DL (6.4-8.2) Albumin 2.4 G/DL (3.4-5.0) L Globulin 5.1 g/dL Albumin/Globulin Ratio 0.5 (1.0-2.7) L Troponin I 0.009 ng/mL (0.000-0.056) Thyroid Stimulating Hormone (TSH) 0.331 uiU/mL (0.358-3.740) Phenytoin (Dilantin) Level 14.5 ug/mL (10-20) Current Medications Medications (Trade) Dose Ordered Sig/Boubacar Route PRN Reason Start Time Stop Time Status Last Admin Dose Admin Acetaminophen (Tylenol) 650 mg Q6H PRN GT Mild Pain/Temp > 100.5 11/11/19 14:30 12/11/19 14:29 Albuterol/ Ipratropium (Albuterol/ Ipratropium) 3 ml Q4H PRN HHN Shortness of Breath 11/11/19 14:30 11/16/19 14:29 Ascorbic Acid (Vitamin C) 500 mg DAILY NG 11/12/19 09:00 12/12/19 08:59 11/12/19 09:48 Dextrose (Dextrose 50%) 25 ml Q30M PRN IV Hypoglycemia 11/11/19 20:30 12/11/19 20:29 Dextrose (Dextrose 50%) 50 ml Q30M PRN IV Hypoglycemia 11/11/19 20:30 12/11/19 20:29 Docusate Sodium (Colace) 100 mg DAILY GT 11/12/19 09:00 12/12/19 08:59 11/12/19 09:46 Dopamine HCl/ Dextrose 250 ml @ 0 mls/hr Q24H IV 11/11/19 23:00 12/11/19 22:59 11/12/19 11:53 Ferrous Sulfate (Feosol) 300 mg THREE TIMES A DAY GT 11/11/19 18:00 12/11/19 17:59 11/12/19 09:46 Insulin Aspart (NovoLOG) BEFORE MEALS AND HS SUBQ 11/11/19 22:00 12/11/19 21:59 Levothyroxine Sodium (Synthroid) 150 mcg DAILY@0630 GT 11/12/19 06:30 12/12/19 06:29 Multivitamins (Multivitamins W/ Minerals 15ml Liquid) 15 ml DAILY GT 11/12/19 09:00 12/12/19 08:59 11/12/19 09:48 Ondansetron HCl (Zofran) 4 mg Q6H PRN IVP Nausea & Vomiting 11/12/19 03:00 12/12/19 02:59 11/12/19 03:48 Phenytoin (Dilantin) 250 mg Q12HR@0630,1830 GT 11/12/19 18:30 12/12/19 18:29 Piperacillin Sod/ Tazobactam Sod 3.375 gm/Dextrose 110 ml @ 27.5 mls/hr EVERY 8 HOURS IVPB 11/12/19 14:00 11/16/19 21:59 Sodium Chloride 1,000 ml @ 100 mls/hr Q10H IV 11/11/19 23:30 12/11/19 23:29 11/12/19 09:48 Zinc Oxide (Zinc Oxide) 1 applic BID TOPIC 11/12/19 10:00 12/12/19 09:59 11/12/19 11:50 Leslie Corrales MD Nov 12, 2019 13:33
--- NOTE | 2019-11-12 13:45 | Diagnostic Imaging Report ---
Indication: Shortness of breath Technique: One view of the chest Comparison: 11/11/2019 Findings: Again demonstrated is diffuse bilateral interstitial disease and some airspace disease. There there is evidence of slightly increased airspace opacity the right lung base. Tracheostomy again demonstrated. The heart is borderline enlarged. Impression: Slightly increased airspace disease at the right lung base, may reflect increase infiltrates versus edema. Background mostly interstitial disease is unchanged, over one day
[2019-11-12] MEDS: Piperacillin/Tazobactam 3.375 GM in D5W 110 ML IVPB SCH ×2 (14:12→21:47)
[2019-11-12] MEDS ORDERED: Vancomycin 1.25gm/NS Premix IVPB ONE (15:00)
[2019-11-12] MEDS ORDERED: Amikacin 1,000 MG in NS 110 ML IV SCH (16:00)
--- NOTE | 2019-11-12 16:47 | Consultation ---
History of Present Illness General Date patient seen: Nov 12, 2019 Chief Complaint: Fever Present Illness HPI This is a 79-year-old female multiple medical comorbidities who presented to [facility] after identified to have a seizure lasting almost a minute. Patient noted to have leukocytosis, abnormal LFTs, decubitus ulcers. Surgery called to evaluate and assist with care. Patient seen, patient evaluated, chart reviewed. Imaging reviewed. Labs noted. Allergies: Coded Allergies: PEANUT (Verified Allergy, Unknown, 09/22/16) Uncoded Allergies: PEANUTS (Allergy, Unknown, 02/04/19) Medication History Scheduled Albuterol Sulfate* (Albuterol Sulfate Hhn*), 3 ML INH Q6H, (Reported) Cranberry Extract (Cranberry), 425 MG GT DAILY, (Reported) Docusate Sodium* (Docusate Sodium*), 100 MG GT DAILY, (Reported) Ferrous Sulfate (Ferrous Sulfate), 330 MG GT DAILY, (Reported) Heparin Sodium,Porcine/Pf (Heparin 1,000 Unit/10 (100/ml)), 5,000 UNIT SQ Q12HR, (Reported) Levothyroxine Sodium* (Levothyroxine Sodium*), 75 MCG GT DAILY, (Reported) Multivitamin With Minerals (Multivitamins With Minerals*), 15 ML GT DAILY, ( Reported) Phenytoin (Phenytoin*), 300 MG GT BID, (Reported) Protein Supplement (Promod), 30 ML GT TID, (Reported) Vit C/Ascorbate Ca/Ascorb Sod (Vitamin C 500 Mg/15 Ml Liquid), 500 MG GT DAILY, (Reported) Scheduled PRN Acetaminophen (Acetaminophen), 650 MG GT Q6H PRN for Prn Headache/Temp > 101, ( Reported) Patient History Limited by: medical condition History Provided By: Medical Record, PMD Healthcare decision maker Resuscitation status Full Code Advanced Directive on File No Past Medical/Surgical History Past Medical/Surgical History: (1) Urinary tract infection (2) Recurrent seizures (3) Hypophosphatemia (4) Aspiration pneumonia (5) Bacteremia due to Gram-negative bacteria (6) Septic shock (7) Chronic respiratory failure (8) Vegetative state (9) Acute and chronic respiratory failure (10) Anoxic brain damage syndrome (11) Feeding by G-tube (12) Hypothyroidism (13) Seizure disorder (14) HTN (hypertension) (15) Functional paraplegia (16) Paroxysmal supraventricular tachycardia (17) AV block, 2nd degree (18) Bowel obstruction (19) Anemia (20) Malfunction of gastrostomy tube (21) G-tube site cellulitis (22) LGI bleed Review of Systems ROS Narrative Difficulty given patient's current medical condition Physical Exam General Appearance: mild distress Lines, tubes and drains: central line, other HEENT: mucous membranes moist Neck: normal inspection Respiratory/Chest: chest wall non-tender, decreased breath sounds, expiratory wheezing, other Cardiovascular/Chest: tachycardia, irregularly irregular Abdomen: soft, no organomegaly, hypoactive bowel sounds, other Extremities: non-tender, inflammation, slow capillary refill Skin Exam: warm/dry Neurologic: other Last 24 Hour Vital Signs Date Time Temp Pulse Resp B/P (MAP) Pulse Ox O2 Delivery O2 Flow Rate FiO2 11/12/19 15:24 97 21 40 11/12/19 15:00 125/69 11/12/19 14:00 125/45 11/12/19 13:19 101 20 40 11/12/19 13:00 142/63 11/12/19 12:00 Mechanical Ventilator 60.0 11/12/19 12:00 111/54 11/12/19 12:00 60 11/12/19 12:00 52 11/12/19 11:53 111/54 11/12/19 11:30 51 18 123/47 (72) 98 11/12/19 11:15 64 18 50 11/12/19 11:15 51 18 124/43 (70) 98 11/12/19 11:00 125/47 11/12/19 11:00 51 18 125/47 (73) 98 11/12/19 10:45 51 18 125/47 (73) 97 11/12/19 10:30 59 18 131/53 (79) 97 11/12/19 10:15 53 18 128/43 (71) 97 11/12/19 10:00 68 18 149/48 (81) 97 11/12/19 10:00 149/48 11/12/19 09:45 55 18 124/50 (74) 97 11/12/19 09:30 55 18 128/48 (74) 98 11/12/19 09:15 56 18 129/50 (76) 97 11/12/19 09:15 113 18 60 11/12/19 09:00 133/63 11/12/19 09:00 61 18 133/63 (86) 98 11/12/19 08:45 62 18 132/68 (89) 98 11/12/19 08:30 66 18 140/47 (78) 98 11/12/19 08:15 133/45 11/12/19 08:15 61 18 133/45 (74) 98 11/12/19 08:00 Mechanical Ventilator 60.0 11/12/19 08:00 98.6 68 18 157/67 (97) 99 11/12/19 08:00 61 11/12/19 08:00 157/67 11/12/19 08:00 60 11/12/19 07:45 53 18 139/47 (77) 98 11/12/19 07:30 75 18 123/54 (77) 98 11/12/19 07:30 123/54 11/12/19 07:15 108/41 11/12/19 07:15 56 18 108/41 (63) 98 11/12/19 07:00 55 18 60 11/12/19 07:00 99/47 11/12/19 07:00 54 18 99/47 (64) 98 11/12/19 06:29 134/58 11/12/19 06:00 54 18 117/38 (64) 97 11/12/19 06:00 134/58 11/12/19 05:45 72 19 119/45 (69) 98 11/12/19 05:30 68 18 128/55 (79) 97 11/12/19 05:15 72 18 120/59 (79) 97 11/12/19 05:00 61 18 130/46 (74) 97 11/12/19 05:00 120/59 11/12/19 04:50 64 18 45 11/12/19 04:45 60 18 129/53 (78) 98 11/12/19 04:30 66 18 130/50 (76) 97 11/12/19 04:15 65 18 125/42 (69) 98 11/12/19 04:00 100.0 55 18 127/41 (69) 98 11/12/19 04:00 Mechanical Ventilator 60.0 11/12/19 04:00 127/41 11/12/19 04:00 60 11/12/19 04:00 64 11/12/19 03:30 62 18 111/43 (65) 99 11/12/19 03:15 98 18 122/44 (70) 98 11/12/19 03:13 61 18 45 11/12/19 03:00 77 18 122/51 (74) 99 11/12/19 03:00 122/44 11/12/19 02:15 95 18 118/52 (74) 97 11/12/19 02:00 127/44 11/12/19 02:00 60 18 127/44 (71) 98 11/12/19 01:45 61 18 130/46 (74) 99 11/12/19 01:30 55 18 131/37 (68) 99 11/12/19 01:15 56 18 93/40 (57) 100 11/12/19 01:00 61 18 91/47 (62) 100 11/12/19 01:00 93/40 11/12/19 00:54 81 23 45 11/12/19 00:45 69 18 95/48 (64) 100 11/12/19 00:30 83 18 108/47 (67) 100 11/12/19 00:15 93 18 127/55 (79) 100 11/12/19 00:00 Mechanical Ventilator 45.0 11/12/19 00:00 99.6 87 18 138/51 (80) 100 11/12/19 00:00 127/55 11/12/19 00:00 45 11/11/19 23:48 68/32 11/11/19 23:45 66 18 106/48 (67) 97 11/11/19 23:30 82 18 101/47 (65) 93 11/11/19 23:16 84 24 45 11/11/19 23:15 78 18 101/46 (64) 93 11/11/19 23:00 77 18 99/49 (66) 96 11/11/19 22:45 77 18 99/50 (66) 95 11/11/19 22:00 70 18 100/60 (73) 11/11/19 21:14 40 95 11/11/19 21:10 77 21 45 11/11/19 20:00 77 11/11/19 20:00 98.8 78 18 105/62 (76) 98 3/9/20 20:00 45 11/11/19 20:00 Mechanical Ventilator 45.0 11/11/19 19:16 74 19 45 11/11/19 17:29 77 18 45 Intake and Output 11/11/19 11/12/19 19:00 07:00 Intake Total 1017.673 ml Output Total 50 ml Balance 967.673 ml Intake IV Total 1017.673 ml Output Emesis 50 ml # Voids 2 341 Laboratory Tests Test 11/11/19 21:37 11/12/19 04:30 11/12/19 10:00 Arterial Blood pH 7.440 (7.350-7.450) Arterial Blood Partial Pressure CO2 41.6 mmHg (35.0-45.0) Arterial Blood Partial Pressure O2 226.1 mmHg (75.0-100.0) H Arterial Blood HCO3 27.6 mmol/L (22.0-26.0) H Arterial Blood Oxygen Saturation 99.0 % (95-100) Arterial Blood Base Excess 3.2 (-2-2) H Best Test Positive White Blood Count 15.4 K/UL (4.8-10.8) #H Red Blood Count 3.72 M/UL (4.20-5.40) L Hemoglobin 12.7 G/DL (12.0-16.0) Hematocrit 36.4 % (37.0-47.0) L Mean Corpuscular Volume 98 FL (80-99) Mean Corpuscular Hemoglobin 34.2 PG (27.0-31.0) H Mean Corpuscular Hemoglobin Concent 34.9 G/DL (32.0-36.0) Red Cell Distribution Width 13.6 % (11.6-14.8) Platelet Count 195 K/UL (150-450) Mean Platelet Volume 8.9 FL (6.5-10.1) Neutrophils (%) (Auto) % (45.0-75.0) Lymphocytes (%) (Auto) % (20.0-45.0) Monocytes (%) (Auto) % (1.0-10.0) Eosinophils (%) (Auto) % (0.0-3.0) Basophils (%) (Auto) % (0.0-2.0) Differential Total Cells Counted 100 Neutrophils % (Manual) 90 % (45-75) H Lymphocytes % (Manual) 4 % (20-45) L Monocytes % (Manual) 6 % (1-10) Eosinophils % (Manual) 0 % (0-3) Basophils % (Manual) 0 % (0-2) Band Neutrophils 0 % (0-8) Platelet Estimate Adequate Platelet Morphology Normal Red Blood Cell Morphology Normal Sodium Level 138 MMOL/L (136-145) Potassium Level 3.6 MMOL/L (3.5-5.1) Chloride Level 103 MMOL/L (98-107) Carbon Dioxide Level 26 MMOL/L (21-32) Anion Gap 9 mmol/L (5-15) Blood Urea Nitrogen 15 mg/dL (7-18) Creatinine 0.5 MG/DL (0.55-1.30) L Estimat Glomerular Filtration Rate > 60 mL/min (>60) Glucose Level 174 MG/DL (74-106) H Calcium Level 8.6 MG/DL (8.5-10.1) Total Bilirubin 1.2 MG/DL (0.2-1.0) H Direct Bilirubin 0.8 MG/DL (0.0-0.3) H Aspartate Amino Transf (AST/SGOT) 36 U/L (15-37) Alanine Aminotransferase (ALT/SGPT) 25 U/L (12-78) Alkaline Phosphatase 249 U/L (46-116) H Total Protein 7.5 G/DL (6.4-8.2) Albumin 2.4 G/DL (3.4-5.0) L Globulin 5.1 g/dL Albumin/Globulin Ratio 0.5 (1.0-2.7) L Troponin I 0.009 ng/mL (0.000-0.056) Thyroid Stimulating Hormone (TSH) 0.331 uiU/mL (0.358-3.740) Phenytoin (Dilantin) Level 14.5 ug/mL (10-20) Height (Feet): 5 Height (Inches): 3.00 Weight (Pounds): 191 Medications Current Medications Medications (Trade) Dose Ordered Sig/Boubacar Route PRN Reason Start Time Stop Time Status Last Admin Dose Admin Acetaminophen (Tylenol) 650 mg Q6H PRN GT Mild Pain/Temp > 100.5 11/11/19 14:30 12/11/19 14:29 Albuterol/ Ipratropium (Albuterol/ Ipratropium) 3 ml Q4H PRN HHN Shortness of Breath 11/11/19 14:30 11/16/19 14:29 Amikacin Protocol (Amikacin pharmacy to dose) 1 ea DAILY PRN MISC Per rx protocol 11/12/19 13:30 12/12/19 13:29 Amikacin Sulfate 1000 mg/Sodium Chloride 114 ml @ 114 mls/hr Q48H IV 11/12/19 16:00 11/19/19 15:59 Ascorbic Acid (Vitamin C) 500 mg DAILY NG 11/12/19 09:00 12/12/19 08:59 11/12/19 09:48 Dextrose (Dextrose 50%) 25 ml Q30M PRN IV Hypoglycemia 11/11/19 20:30 12/11/19 20:29 Dextrose (Dextrose 50%) 50 ml Q30M PRN IV Hypoglycemia 11/11/19 20:30 12/11/19 20:29 Docusate Sodium (Colace) 100 mg DAILY GT 11/12/19 09:00 12/12/19 08:59 11/12/19 09:46 Dopamine HCl/ Dextrose 250 ml @ 0 mls/hr Q24H IV 11/11/19 23:00 12/11/19 22:59 11/12/19 11:53 Ferrous Sulfate (Feosol) 300 mg THREE TIMES A DAY GT 11/11/19 18:00 12/11/19 17:59 11/12/19 14:11 Insulin Aspart (NovoLOG) BEFORE MEALS AND HS SUBQ 11/11/19 22:00 12/11/19 21:59 Levothyroxine Sodium (Synthroid) 150 mcg DAILY@0630 GT 11/12/19 06:30 12/12/19 06:29 Multivitamins (Multivitamins W/ Minerals 15ml Liquid) 15 ml DAILY GT 11/12/19 09:00 12/12/19 08:59 11/12/19 09:48 Ondansetron HCl (Zofran) 4 mg Q6H PRN IVP Nausea & Vomiting 11/12/19 03:00 12/12/19 02:59 11/12/19 03:48 Phenytoin (Dilantin) 250 mg Q12HR@0630,1830 GT 11/12/19 18:30 12/12/19 18:29 Piperacillin Sod/ Tazobactam Sod 3.375 gm/Dextrose 110 ml @ 27.5 mls/hr EVERY 8 HOURS IVPB 11/12/19 14:00 11/16/19 21:59 11/12/19 14:12 Sodium Chloride 1,000 ml @ 100 mls/hr Q10H IV 11/11/19 23:30 12/11/19 23:29 11/12/19 09:48 Vancomycin HCl (Vanco rx to dose) 1 ea DAILY PRN MISC Per rx protocol 11/12/19 13:30 12/12/19 13:29 Vancomycin HCl 750 mg/Sodium Chloride 275 ml @ 183.333 mls/hr Q24H IVPB 11/13/19 15:00 11/18/19 14:59 Zinc Oxide (Zinc Oxide) 1 applic BID TOPIC 11/12/19 10:00 12/12/19 09:59 11/12/19 11:50 Assessment/Plan Problem List: (1) Decubitus skin ulcer Assessment & Plan: Pt presented on admission with resolving pressure injury R side to posterior aspect of neck. Base of wound is moist with pink epithelial. Mild odor noted (L)1.5cm x (W)6cm. Partial thickness stage 2 pressure injury in close proximity R side neck. Base of wound is moist and viable(L)0.7cm x (W) 0.8cm. Small amt serosanguineous exudate noted. Moist pink epithelial L side to posterior aspect of neck(L)5cm x (W)16.5cm. Within base of wound is a full thickness stage 3 pressure injury L side neck under tracheal collar. Base of wound is moist ,wan with macerated borders.(L)0.9cm x (W)2cm x (D)0.6cmSmall amt serous exudate noted. Mild odor noted. Erosion noted at GT site . Scattered areas of hyperpigmentation noted to R and L buttocks and both ischial tuberosities. Non-blanching erythema without induration noted to Sacrum. L heel Is boggy with an area of non-blanching erythema with delineated margins. R heel is soft but blanchable. Tx.Plan: Apply Zinc Oxide Paste 20% to Epithelial areas around neck Twice Daily.Place Abd pads under tracheal collar . Cleanse Wound L side of neck with Saline. Apply TheraHoney. Apply Zinc Oxide Paste periwound. Cover with Optifoam drsg Daily and prn. Apply Moisture Barrier Paste to sacrum. Cover with Optifoam drsg. Change every 3 days and prn. Apply Cavilon Skin Barrier to both heels. Cover each heel with Optifoam drsg. Change every 7 days and prn. APM/LUIGI Mattress overlay. Reposition at least every 2 hours or as tolerated. Off- Load heels with pillow. ICD Codes: L89.90 - Pressure ulcer of unspecified site, unspecified stage SNOMED: 498236184 (2) Recurrent seizures Assessment & Plan: As per neurology No injury identified Rx is written ICD Codes: G40.909 - Epilepsy, unspecified, not intractable, without status epilepticus SNOMED: 11340261, 97201386 (3) Feeding by G-tube Assessment & Plan: DAILY ESTIMATED NEEDS: Needs based on Obese, critical care, wound healing 65.8kg abw 22-28 kcals/kg 9084-5064 total kcals 1.25-2 g protein/kg 82-131 g total protein 25-30 mL/kg 6309-5922 total fluid mLs NUTRITION DIAGNOSIS: 1) Swallowing difficulty R/T respiratory status as evidenced by pt trach-vent dep, GT dep 2) Increased kcal/prot needs R/T wound healing as evidenced by pt admitted w/ multiple wounds including full thickness pressure injury at L side neck under tracheal collar and partial thickness pressure injurty in close proximity to R side neck CURRENT TF:TF HELD: Jevity 1.2 @ 75ml/hr x 18 hrs ENTERAL NUTRITION RECOMMENDATIONS: Glucerna 1.2 @ 70ml/hr x 20 hrs (TF HELD FOR DILANTIN AND SYNTHROID) to provide 1200ml, 1440kcal, 67g prot, 968ml free water * FEED W/ HEMODYNAMIC STABLITY -> rec TF change to Glucerna 1.2 (h/o DM) -> Initiate Glucerna 1.2 @ 20ml/hr x 6 hrs -> advance 10ml q 4-6 hrs as tolerated to goal rate -> HOLD TF 1 HR BEFORE AND AFTER DILANTIN BID AND SYNTHROID QD (AM Dilantin and Synthroid given at the same time) -> Water flush per MD/ HOB over 30 degrees ADDITIONAL RECOMMENDATIONS: * Calibrated bed scale weights for accurate CBW (w/ added P200 mattress) * Wound healing: Continue Vit C/ add Contreras 1pkt BID via PEG * Monitor HD stability: on Dopamine * TF to run max 20 hrs w/ Dilantin BID + Synthroid QD (See above TF rec) * Monitor lytes daily w/ TF, replete as needed . ICD Codes: Z93.1 - Gastrostomy status SNOMED: [id number], [id number] (4) G-tube site cellulitis Assessment & Plan: as above ICD Codes: K94.22 - Gastrostomy infection; L03.319 - Cellulitis of trunk, unspecified SNOMED: 629605521, [id number] (5) Abnormal LFTs Assessment & Plan: US ordered trend ICD Codes: R94.5 - Abnormal results of liver function studies SNOMED: [id number] Heath Martell Nov 12, 2019 16:47
[2019-11-12] MEDS ORDERED: MILK OF MA400 MG/51 ORAL (20:05)
[2019-11-12] MEDS ORDERED: SYNTHROID150 MCG GT (20:11)
--- NOTE | 2019-11-12 20:15 | Consultation ---
DATE OF CONSULTATION: 11/12/2019 CARDIAC ELECTROPHYSIOLOGY CONSULTATION CONSULTING PHYSICIAN: Faith Mcfadden M.D. REASON FOR CONSULT: Intermittent complete heart block. HISTORY OF PRESENT ILLNESS: History is obtained from the chart and treating providers as the patient is intubated and unable to give any history. The patient is a 79-year-old woman with previous CVA, right hemiplegia, chronic respiratory failure, status post tracheostomy and on chronic ventilator, fed via G-tube. She was transferred from the intermediate on 11/11/2019 after having a witnessed generalized seizure. She was also febrile. She has had lab studies including a white blood count of 15,000. Urine positive for bacteria and white blood cells with culture positive for gram-negative bacilli in the urine. She has been hypotensive requiring dopamine pressor support. On admission, she was bradycardic with strips showing Mobitz 1 second-degree AV block. She has a baseline right bundle-branch block. Today, she was noted to have intermittent complete AV block as well. Cardiac electrophysiology evaluation was requested. She is currently in sinus rhythm, rates in the 70s and on dopamine at 14 mcg/kg per minute. MEDICATIONS: Dilantin 250 mg q.12 hours, Zosyn 3.375 g IV q.8 hours, zinc topically b.i.d., Colace 100 mg daily per G-tube, multivitamin daily per G-tube, vitamin C 500 mg daily per G-tube, Synthroid 150 mcg daily per G-tube, Zofran 4 mg IV every 6 hours p.r.n., dopamine titrated to blood pressure, insulin sliding scale, iron sulfate 300 mg per G-tube 3 times daily, Tylenol p.r.n., Atrovent and albuterol inhaler and nebulizer p.r.n. ALLERGIES: No drug allergies. PAST MEDICAL HISTORY: As noted above. SOCIAL HISTORY: Not obtainable from the patient or chart. REVIEW OF SYSTEMS: Not obtainable from the patient or chart. PHYSICAL EXAMINATION: VITAL SIGNS: Blood pressure is 95/48, pulse 70 regular, respirations 18, afebrile, oxygen saturation 100% on 45% FiO2. GENERAL: Alert, obese, woman, in no respiratory distress. She opens eyes to voice, but does not respond to simple commands. HEENT: Normocephalic and atraumatic. Pupils are equal, round, and reactive to light. Sclerae anicteric. Oral mucosa moist. NECK: Tracheostomy site clean. LUNGS: Fairly clear anteriorly. Good air movement. HEART: Regular S1 and S2. No murmurs, S3, or S4. ABDOMEN: Soft. Positive bowel sounds. Positive G-tube. Nontender. EXTREMITIES: Trace peripheral lower extremity edema bilaterally. NEUROLOGIC: Opens eyes to voice. No response to commands. Moves only the left upper extremity spontaneously. LABORATORY DATA: Hemoglobin 12.7, hematocrit 36, white blood count 15,400, platelets 195,000. Sodium 138, potassium 3.6, chloride 103, bicarbonate 26, BUN 15, creatinine 0.5. Troponin 0.009. TSH 0.33. Arterial blood gas on admission pH 7.44, pCO2 41, pO2 226, oxygen saturation 99%. Urinalysis 15 to 20 red blood cells, 30 to 40 white blood cells, positive nitrites, many bacteria. Urine culture positive for gram-negative bacilli. Sputum culture is pending. Chest x-ray shows cardiomegaly and possible edema, but is a poor inspiratory effort. Telemetry strips from admission show sinus rhythm with Mobitz 1 Wenckebach second-degree AV block and right bundle-branch block. EKG today shows Mobitz 1 second-degree AV block, ventricular rate 59, right bundle-branch block. EKG from 11/11/2019 shows sinus rhythm with first-degree AV block, rate of 79 beats per minute, right bundle-branch block. EKG from 11/11/2019 at 19:53, later in the day shows sinus rhythm with AV dissociation, ventricular rate 44 beats per minute. ASSESSMENT AND RECOMMENDATIONS: The patient is a 79-year-old woman with history of multiple chronic medical issues as outlined above, who was admitted following possible seizure and with urosepsis possibly also pneumonia. In this setting, she is noted to have Mobitz 1 second-degree AV block and intermittent AV dissociation. I suspect she has underlying baseline conduction disease, but that her current hypotension is due to sepsis rather than a primary conduction abnormality. I would recommend continuing telemetry. I would place pacing pads in case temporary pacing is needed. I would not favor permanent pacemaker at this time given her sepsis. She is not a good candidate overall for pacing due to her significant comorbidities including chronic respiratory failure on chronic ventilator, previous CVA, baseline mental status, and poor functional status. I would recommend in addition to placement of temporary pacing pads continuation of intravenous dopamine for hypotension and bradyarrhythmia. Avoid all negative chronotropic and dromotropic agents. Thank you for allowing me to evaluate the patient. I will discuss these findings and recommendations further with you. Faith Mcfadden M.D. DR: REX JOB#: [id number] CC:
--- NOTE | 2019-11-12 22:45 | History and Physical Report ---
DATE OF ADMISSION: 11/11/2019 CHIEF COMPLAINT: Recurrent seizure. BRIEF HISTORY: This is a 79-year-old female from [facility], with history of respiratory failure, trach, vent, came in with recurrent seizure, admitted to intensive care unit initially by Dr. Hogan. Currently, the patient is trach, vent, altered, lethargic in bed, and nonverbal. REVIEW OF SYSTEMS: Unavailable. PAST MEDICAL HISTORY: Includes respiratory failure, anoxic brain damage syndrome, hypothyroid, functional paraplegia, AV block, anemia, and malnutrition. PAST SURGICAL HISTORY: G-tube and trach. MEDICATIONS: Include vancomycin, phenytoin, amikacin, Zosyn, zinc, levothyroxine, and Zofran. ALLERGIES: None. SOCIAL HISTORY: Unable to obtain secondary to the patient's condition. PHYSICAL EXAMINATION: GENERAL: Trach, vent, altered, lethargic in the intensive care unit, nonverbal. VITAL SIGNS: Show temperature is not given, pulse 52, respirations 18, and blood pressure 111/54. CARDIOVASCULAR: No murmurs. LUNGS: Poor air exchange. ABDOMEN: Bowel sounds distant. EXTREMITIES: No cyanosis or edema. NEUROLOGIC: The patient is flaccid in bed, not following directions. LABORATORY AND DIAGNOSTIC DATA: Labs at this time show white count 15, H and H is 12 and 36, and platelets is 195,000. BMP shows creatinine 0.5 and glucose 174. Urinalysis, positive nitrites, 3+ leukocyte esterase. ASSESSMENT: 1. Respiratory failure. 2. Seizure. 3. UTIs. 4. Hypothyroid. 5. Anoxic brain. 6. Functional paraplegia. 7. Anemia. 8. Malnutrition. PLAN: 1. PT and dietary evaluation. 2. CBC and BMP in the morning. 3. Seizure control. 4. Resume home medications. 5. Antibiotics per Infectious Disease. Juaquin Ramos D.O. DR: JERE JOB#: [id number] CC:
[2019-11-13] VITALS (44 sets, daily range): BP systolic 52–159; BP diastolic 39–115
--- NOTE | 2019-11-13 03:14 | Progress Note ---
DATE: 11/12/2019 CARDIOLOGY, CRITICAL CARE NOTE SUBJECTIVE: The patient remains orally intubated, mechanically ventilated. Hypotensive, on pressor support. She has episodes of bradycardia. Strips were reviewed with the nursing staff. Evidence of second-degree AV block type 1 noted. The patient's laboratories were reviewed. SUBJECTIVE: LUNGS: Bilateral breath sounds. CARDIAC: Regular rhythm and rate. Normal S1, S2. ABDOMEN: Soft. Trach site clean. G-tube intact. EXTREMITIES: No edema. LABORATORY DATA: White count 15, hemoglobin 12. Sodium 138, potassium 3.6, bicarb 26, BUN 15, creatinine 0.5. Troponin negative. TSH 0.3. Albumin 2.4. IMPRESSION: 1. Second-degree AV block. 2. Advanced conduction system disease. 3. Sepsis with shock. 4. Respiratory failure with tracheostomy. 5. Dilantin toxicity. 6. Possible seizure. PLAN: 1. Holding Dilantin. 2. Re-dose for low albumin levels. 3. Cardiac monitoring. 4. Ventilator support. 5. Atropine at bedside. 6. Dopamine with taper as able. 7. EP consultation. Eder Tenorio M.D. DR: MEGHAN JOB#: [id number] CC:
[2019-11-13] MEDS: DOPamine 400mg/250ml 250 ML IV SCH ×4 (05:34→23:37)
[2019-11-13] MEDS: Piperacillin/Tazobactam 3.375 GM in D5W 110 ML IVPB SCH ×2 (06:06→13:54)
[2019-11-13] MEDS: NovoLOG Insulin Flexpen SUBQ SCH ×4 (06:07→21:00)
[2019-11-13] MEDS: Phenytoin Susp 100mg/4ml GT SCH ×2 (06:07→18:17)
[2019-11-13 07:11] LABS: INR 1.1 (0.9-1.1)
[2019-11-13 07:13] LABS: BASOPHILS % (AUTO) 1.4 % (0.0-2.0); EOSINOPHILS % (AUTO) 5.2 % (0.0-3.0); HEMATOCRIT 36.1 % (37.0-47.0); HEMOGLOBIN 12.5 G/DL (12.0-16.0); LYMPHOCYTES % (AUTO) 10.7 % (20.0-45.0); MEAN CORPUSCULAR VOLUME 98 FL (80-99); MONOCYTES % (AUTO) 12.2 % (1.0-10.0); NEUTROPHILS % (AUTO) 70.6 % (45.0-75.0); PLATELET COUNT 206 K/UL (150-450); RED CELL DISTRIBUTION WIDTH 13.4 % (11.6-14.8); WHITE BLOOD COUNT 9.4 K/UL (4.8-10.8)
--- NOTE | 2019-11-13 07:15 | Pulmonology Progress Note ---
Assessment/Plan Assessment/Plan IMPRESSION: 1. Supratherapeutic Dilantin level. 2. Questionable seizure. 3. UTI. 4. Chronic respiratory failure. 5. Septic shock. DISCUSSION: Seen by cardiology and ID. Continue vent. Continue present medications care. I will follow carefully. Grabiel Hogan M.D. Subjective Interval Events: In ICU; overall better Constitutional: Reports: no symptoms HEENT: Repors: no symptoms Respiratory: Reports: no symptoms Cardiovascular: Reports: no symptoms Gastrointestinal/Abdominal: Reports: no symptoms Allergies: Coded Allergies: PEANUT (Verified Allergy, Unknown, 09/22/16) Uncoded Allergies: PEANUTS (Allergy, Unknown, 02/04/19) Objective Last 24 Hour Vital Signs Date Time Temp Pulse Resp B/P (MAP) Pulse Ox O2 Delivery O2 Flow Rate FiO2 11/13/19 06:00 149/52 11/13/19 06:00 53 18 149/52 (84) 95 11/13/19 05:54 62 11/13/19 05:34 129/63 11/13/19 05:30 60 18 129/63 (85) 96 11/13/19 05:17 86 20 40 11/13/19 05:00 58 19 130/49 (76) 11/13/19 05:00 129/63 11/13/19 04:30 70 17 139/60 (86) 11/13/19 04:00 61 11/13/19 04:00 Mechanical Ventilator 40.0 11/13/19 04:00 98.4 62 18 134/61 (85) 95 11/13/19 04:00 139/60 11/13/19 04:00 40 11/13/19 03:45 94 18 40 11/13/19 03:30 63 18 135/70 (91) 95 11/13/19 03:00 135/50 11/13/19 03:00 53 18 126/60 (82) 94 11/13/19 02:30 77 18 144/66 (92) 93 11/13/19 02:00 58 18 138/51 (80) 94 11/13/19 02:00 144/66 11/13/19 01:30 53 18 130/48 (75) 95 11/13/19 01:12 79 18 40 11/13/19 01:00 63 18 133/56 (81) 95 11/13/19 01:00 130/48 11/13/19 00:30 57 18 130/55 (80) 95 11/13/19 00:00 61 11/13/19 00:00 99.0 54 18 125/68 (87) 95 11/13/19 00:00 140/69 11/13/19 00:00 Mechanical Ventilator 60.0 11/13/19 00:00 60 11/12/19 23:47 72 18 40 11/12/19 23:30 53 18 121/49 (73) 94 11/12/19 23:29 147/68 11/12/19 23:00 69 18 139/41 (73) 94 11/12/19 23:00 132/49 11/12/19 22:30 59 18 136/45 (75) 94 11/12/19 22:00 115 17 154/70 (98) 92 11/12/19 22:00 154/70 11/12/19 21:30 62 18 138/51 (80) 95 11/12/19 21:17 74 18 40 11/12/19 21:00 136/57 11/12/19 21:00 60 18 136/57 (83) 95 11/12/19 20:30 92 19 132/59 (83) 97 11/12/19 20:00 Mechanical Ventilator 60.0 11/12/19 20:00 75 11/12/19 20:00 140/57 11/12/19 20:00 76 16 140/57 (84) 95 11/12/19 20:00 60 11/12/19 19:39 69 19 40 11/12/19 19:30 66 18 137/45 (75) 100 11/12/19 19:00 63 18 133/42 (72) 11/12/19 19:00 133/42 11/12/19 18:30 62 18 76/41 (53) 98 11/12/19 18:05 102/57 11/12/19 18:00 64 18 102/57 (72) 99 11/12/19 17:30 88 18 128/80 (96) 99 11/12/19 17:29 51 19 40 11/12/19 17:00 63 18 102/58 (73) 92 11/12/19 17:00 102/58 11/12/19 16:30 62 18 136/68 (90) 92 11/12/19 16:00 61 11/12/19 16:00 98.0 68 18 146/64 (91) 92 11/12/19 16:00 146/64 11/12/19 16:00 60 11/12/19 16:00 Mechanical Ventilator 60.0 11/12/19 15:30 71 18 142/69 (93) 93 11/12/19 15:24 97 21 40 11/12/19 15:00 57 18 143/45 (77) 97 11/12/19 15:00 125/69 11/12/19 14:30 51 18 128/43 (71) 99 11/12/19 14:00 125/45 11/12/19 14:00 62 18 143/62 (89) 99 11/12/19 13:30 55 18 134/44 (74) 98 11/12/19 13:19 101 20 40 11/12/19 13:00 142/63 11/12/19 13:00 53 18 126/43 (70) 97 11/12/19 12:30 53 18 117/56 (76) 98 11/12/19 12:00 98.6 52 18 138/51 (80) 98 11/12/19 12:00 Mechanical Ventilator 60.0 11/12/19 12:00 111/54 11/12/19 12:00 60 11/12/19 12:00 52 11/12/19 11:53 111/54 11/12/19 11:30 51 18 123/47 (72) 98 11/12/19 11:15 64 18 50 11/12/19 11:15 51 18 124/43 (70) 98 11/12/19 11:00 125/47 11/12/19 11:00 51 18 125/47 (73) 98 11/12/19 10:45 51 18 125/47 (73) 97 11/12/19 10:30 59 18 131/53 (79) 97 11/12/19 10:15 53 18 128/43 (71) 97 11/12/19 10:00 68 18 149/48 (81) 97 11/12/19 10:00 149/48 11/12/19 09:45 55 18 124/50 (74) 97 11/12/19 09:30 55 18 128/48 (74) 98 11/12/19 09:15 56 18 129/50 (76) 97 11/12/19 09:15 113 18 60 11/12/19 09:00 133/63 11/12/19 09:00 61 18 133/63 (86) 98 11/12/19 08:45 62 18 132/68 (89) 98 11/12/19 08:30 66 18 140/47 (78) 98 11/12/19 08:15 133/45 11/12/19 08:15 61 18 133/45 (74) 98 11/12/19 08:00 Mechanical Ventilator 60.0 11/12/19 08:00 98.6 68 18 157/67 (97) 99 11/12/19 08:00 61 11/12/19 08:00 157/67 11/12/19 08:00 60 11/12/19 07:45 53 18 139/47 (77) 98 11/12/19 07:30 75 18 123/54 (77) 98 11/12/19 07:30 123/54 11/12/19 07:15 108/41 11/12/19 07:15 56 18 108/41 (63) 98 Intake and Output 11/12/19 11/13/19 19:00 07:00 Intake Total 1922.758 ml 1600.324 ml Output Total 40 ml 1850 ml Balance 1882.758 ml -249.676 ml Intake Free Water 40 ml IV Total 1882.758 ml 1600.324 ml Output Urine Total 1850 ml Gastric Drainage Total 40 ml # Voids 820 # Bowel Movements 1 3 General Appearance: no acute distress HEENT: normocephalic, status post trach Respiratory/Chest: chest wall non-tender Cardiovascular: normal peripheral pulses Abdomen: normal bowel sounds Microbiology Date/Time Source Procedure Growth Status 11/11/19 09:14 Blood Blood Culture - Preliminary NO GROWTH AFTER 24 HOURS Resulted 11/11/19 09:00 Blood Blood Culture - Preliminary NO GROWTH AFTER 24 HOURS Resulted 11/11/19 09:35 Sputum Gram Stain - Final Resulted 11/11/19 09:35 Sputum Sputum Culture Pending Resulted 11/11/19 00:00 Nasal Nares - Final Complete 11/11/19 00:00 Nasal Nares - Final Complete 11/11/19 09:14 Urine,Clean Catch Urine Culture - Preliminary Gram Negative Bacillus 1 Resulted 11/11/19 10:20 Rectum Received Laboratory Tests 11/12/19 10:00: Troponin I 0.009, Thyroid Stimulating Hormone (TSH) 0.331L, Phenytoin (Dilantin ) Level 14.5 11/13/19 05:45: White Blood Count [Pending], Red Blood Count [Pending], Hemoglobin [Pending], Hematocrit [Pending], Mean Corpuscular Volume [Pending], Mean Corpuscular Hemoglobin [Pending], Mean Corpuscular Hemoglobin Concent [Pending], Red Cell Distribution Width [Pending], Platelet Count [Pending], Mean Platelet Volume [ Pending], Neutrophils (%) (Auto) [Pending], Lymphocytes (%) (Auto) [Pending], Monocytes (%) (Auto) [Pending], Eosinophils (%) (Auto) [Pending], Basophils (%) (Auto) [Pending], Erythrocyte Sedimentation Rate [Pending], Prothrombin Time [ Pending], Prothromb Time International Ratio [Pending], Activated Partial Thromboplast Time [Pending], Sodium Level [Pending], Potassium Level [Pending], Chloride Level [Pending], Carbon Dioxide Level [Pending], Blood Urea Nitrogen [ Pending], Creatinine [Pending], Estimat Glomerular Filtration Rate [Pending], Glucose Level [Pending], Calcium Level [Pending], Total Bilirubin [Pending], Aspartate Amino Transf (AST/SGOT) [Pending], Alanine Aminotransferase (ALT/SGPT ) [Pending], Alkaline Phosphatase [Pending], C-Reactive Protein, Quantitative [ Pending], Total Protein [Pending], Albumin [Pending], Globulin [Pending], Amylase Level [Pending], Lipase [Pending] Current Medications Medications (Trade) Dose Ordered Sig/Boubacar Route PRN Reason Start Time Stop Time Status Last Admin Dose Admin Acetaminophen (Tylenol) 650 mg Q6H PRN GT Mild Pain/Temp > 100.5 11/11/19 14:30 12/11/19 14:29 Albuterol/ Ipratropium (Albuterol/ Ipratropium) 3 ml Q4H PRN HHN Shortness of Breath 11/11/19 14:30 11/16/19 14:29 Amikacin Protocol (Amikacin pharmacy to dose) 1 ea DAILY PRN MISC Per rx protocol 11/12/19 13:30 12/12/19 13:29 Amikacin Sulfate 1000 mg/Sodium Chloride 114 ml @ 114 mls/hr Q48H IV 11/12/19 16:00 11/19/19 15:59 11/12/19 17:25 Ascorbic Acid (Vitamin C) 500 mg DAILY NG 11/12/19 09:00 12/12/19 08:59 11/12/19 09:48 Chlorhexidine Gluconate ([place]-Hex 2%) 1 applic DAILY@2000 TOPIC 11/13/19 20:00 12/13/19 19:59 Dextrose (Dextrose 50%) 25 ml Q30M PRN IV Hypoglycemia 11/11/19 20:30 12/11/19 20:29 Dextrose (Dextrose 50%) 50 ml Q30M PRN IV Hypoglycemia 11/11/19 20:30 12/11/19 20:29 Docusate Sodium (Colace) 100 mg DAILY GT 11/12/19 09:00 12/12/19 08:59 11/12/19 09:46 Dopamine HCl/ Dextrose 250 ml @ 0 mls/hr Q24H IV 11/11/19 23:00 12/11/19 22:59 11/13/19 05:34 Ferrous Sulfate (Feosol) 300 mg THREE TIMES A DAY GT 11/11/19 18:00 12/11/19 17:59 11/12/19 18:07 Insulin Aspart (NovoLOG) BEFORE MEALS AND HS SUBQ 11/11/19 22:00 12/11/19 21:59 Levothyroxine Sodium (Synthroid) 150 mcg DAILY@0630 GT 11/12/19 06:30 12/12/19 06:29 11/13/19 06:06 Multivitamins (Multivitamins W/ Minerals 15ml Liquid) 15 ml DAILY GT 11/12/19 09:00 12/12/19 08:59 11/12/19 09:48 Ondansetron HCl (Zofran) 4 mg Q6H PRN IVP Nausea & Vomiting 11/12/19 03:00 12/12/19 02:59 11/12/19 03:48 Phenytoin (Dilantin) 250 mg Q12HR@0630,1830 GT 11/12/19 18:30 12/12/19 18:29 11/13/19 06:07 Piperacillin Sod/ Tazobactam Sod 3.375 gm/Dextrose 110 ml @ 27.5 mls/hr EVERY 8 HOURS IVPB 11/12/19 14:00 11/16/19 21:59 11/13/19 06:06 Sodium Chloride 1,000 ml @ 100 mls/hr Q10H IV 11/11/19 23:30 12/11/19 23:29 11/13/19 05:34 Vancomycin HCl (Vanco rx to dose) 1 ea DAILY PRN MISC Per rx protocol 11/12/19 13:30 12/12/19 13:29 Vancomycin HCl 750 mg/Sodium Chloride 275 ml @ 183.333 mls/hr Q24H IVPB 11/13/19 15:00 11/18/19 14:59 Zinc Oxide (Zinc Oxide) 1 applic BID TOPIC 11/12/19 10:00 12/12/19 09:59 11/12/19 18:05 Grabiel Hogan MD Nov 13, 2019 07:15
[2019-11-13 07:19] LABS: ALANINE AMINOTRANSFERASE 15 U/L (12-78); ALBUMIN/GLOBULIN RATIO 0.4 (1.0-2.7); ALKALINE PHOSPHATASE 204 U/L (46-116); ANION GAP 8 mmol/L (5-15); ASPARTATE AMINO TRANSFERASE 27 U/L (15-37); BLOOD UREA NITROGEN 7 mg/dL (7-18); CALCIUM 8.7 MG/DL (8.5-10.1); CARBON DIOXIDE 26 MMOL/L (21-32); CHLORIDE 107 MMOL/L (98-107); CREATININE 0.4 MG/DL (0.55-1.30); POTASSIUM 2.8 MMOL/L (3.5-5.1); SODIUM 140 MMOL/L (136-145)
[2019-11-13] MEDS: Zinc Oxide Oint 2oz TOPIC SCH ×2 (08:50→18:17)
--- NOTE | 2019-11-13 09:22 | Diagnostic Imaging Report ---
Indication: Bilateral leg pain Technique: Grayscale and duplex images of the bilateral lower extremity veins Comparison: 10/08/2018 Findings: Exam is somewhat technically limited due to body habitus. Bilaterally, grayscale and duplex images demonstrate no evidence of intraluminal thrombus. Normal phasic Doppler waveforms, demonstrating normal augmentation response and no evidence of valvular insufficiency. Greater saphenous vein(s) and tibial veins are patent. Normal compressibility. Impression: Negative for evidence of lower extremity deep venous thrombosis bilaterally
[2019-11-13] MEDS: Multivitamins W/Minerals 15 ML UDC GT SCH (10:06)
[2019-11-13] MEDS: Docusate 100mg/10ml Liq GT SCH (10:07)
[2019-11-13] MEDS: Ascorbic Acid 500mg tab NG SCH (10:07)
[2019-11-13] MEDS: Ferrous Sulfate 300 MG/5 ML UDC GT SCH ×3 (10:09→18:17)
--- NOTE | 2019-11-13 12:47 | Consultation ---
History of Present Illness General Date patient seen: Nov 13, 2019 Time patient seen: 13:07 Chief Complaint: Fever Reason for Consultation: Severe hypokalemia Present Illness HPI Asad rodriguez is 79 year old female with past medical history of anoxic brain injury complicated by functional qusroplegai with chronic respiratory failure s /p trach on vent and PEGhypertension, seizure disorder presented after recurrent seizure. Patient reportedly had a 45-second generalized tonic-clonic seizure . Patient unable to provide any history due to her baseline mental status. She does follow commands. She does follow commands. She is currently in ICU- being treated for sepsis due to UTI. on antibiotics and dopamine drip. Her potassium today noted to be 2.8. Allergies: Coded Allergies: PEANUT (Verified Allergy, Unknown, 09/22/16) Uncoded Allergies: PEANUTS (Allergy, Unknown, 02/04/19) Medication History Scheduled Acetaminophen (Acetaminophen), 640 MG GT MORNING, (Reported) Cranberry Extract (Cranberry), 425 MG GT BID, (Reported) Docusate Sodium* (Docusate Sodium*), 100 MG GT DAILY, (Reported) Heparin Sodium,Porcine/Pf (Heparin 1,000 Unit/10 (100/ml)), 5,000 UNIT SQ Q12HR, (Reported) Levothyroxine Sodium* (Levothyroxine Sodium*), 75 MCG GT DAILY, (Reported) Levothyroxine Sodium* (Synthroid*), 150 MCG GT DAILY, (Reported) Magnesium Hydroxide* (Milk Of Magnesia*), 30 ML ORAL QHS, (Reported) Multivitamin With Minerals (Multivitamins With Minerals*), 15 ML GT DAILY, ( Reported) Phenytoin (Phenytoin*), 250 MG GT BID, (Reported) Protein Supplement (Promod), 30 ML GT BID, (Reported) Vit C/Ascorbate Ca/Ascorb Sod (Vitamin C 500 Mg/15 Ml Liquid), 500 MG GT DAILY, (Reported) Patient History Healthcare decision maker Resuscitation status Full Code Advanced Directive on File No Review of Systems ROS Narrative unable to obtain due to baseline mental status Physical Exam General Appearance: no apparent distress, other - on vent- trach and peg Lines, tubes and drains: peripheral HEENT: normocephalic, atraumatic Neck: supple Respiratory/Chest: lungs clear Cardiovascular/Chest: normal peripheral pulses, normal rate, regular rhythm Abdomen: soft Extremities: normal range of motion, normal inspection, non-pitting Neurologic: alert Last 24 Hour Vital Signs Date Time Temp Pulse Resp B/P (MAP) Pulse Ox O2 Delivery O2 Flow Rate FiO2 11/13/19 12:00 Mechanical Ventilator 40.0 11/13/19 12:00 40 11/13/19 12:00 98.6 56 18 96/52 (67) 96 11/13/19 11:54 92/54 11/13/19 11:30 54 18 97 11/13/19 11:25 42 17 40 11/13/19 11:00 70 18 132/57 (82) 96 11/13/19 10:30 57 18 127/62 (83) 96 11/13/19 10:15 52 17 128/50 (76) 96 11/13/19 10:00 128/50 11/13/19 09:01 67 18 40 11/13/19 09:00 66 18 142/75 (97) 95 11/13/19 09:00 142/75 11/13/19 08:30 54 18 141/46 (77) 95 11/13/19 08:00 40 11/13/19 08:00 66 11/13/19 08:00 98.5 54 18 139/62 (87) 95 11/13/19 08:00 139/62 11/13/19 08:00 Mechanical Ventilator 40.0 11/13/19 07:48 50 18 40 11/13/19 07:30 53 18 121/54 (76) 94 11/13/19 07:00 146/47 11/13/19 07:00 59 18 146/47 (80) 95 11/13/19 06:00 149/52 11/13/19 06:00 53 18 149/52 (84) 95 11/13/19 05:54 62 11/13/19 05:34 129/63 11/13/19 05:30 60 18 129/63 (85) 96 11/13/19 05:17 86 20 40 11/13/19 05:00 58 19 130/49 (76) 11/13/19 05:00 129/63 11/13/19 04:30 70 17 139/60 (86) 11/13/19 04:00 61 11/13/19 04:00 Mechanical Ventilator 40.0 11/13/19 04:00 98.4 62 18 134/61 (85) 95 11/13/19 04:00 139/60 11/13/19 04:00 40 11/13/19 03:45 94 18 40 11/13/19 03:30 63 18 135/70 (91) 95 11/13/19 03:00 135/50 11/13/19 03:00 53 18 126/60 (82) 94 11/13/19 02:30 77 18 144/66 (92) 93 11/13/19 02:00 58 18 138/51 (80) 94 11/13/19 02:00 144/66 11/13/19 01:30 53 18 130/48 (75) 95 11/13/19 01:12 79 18 40 11/13/19 01:00 63 18 133/56 (81) 95 11/13/19 01:00 130/48 11/13/19 00:30 57 18 130/55 (80) 95 11/13/19 00:00 61 11/13/19 00:00 99.0 54 18 125/68 (87) 95 11/13/19 00:00 140/69 11/13/19 00:00 Mechanical Ventilator 60.0 11/13/19 00:00 60 11/12/19 23:47 72 18 40 11/12/19 23:30 53 18 121/49 (73) 94 11/12/19 23:29 147/68 11/12/19 23:00 69 18 139/41 (73) 94 11/12/19 23:00 132/49 11/12/19 22:30 59 18 136/45 (75) 94 11/12/19 22:00 115 17 154/70 (98) 92 11/12/19 22:00 154/70 11/12/19 21:30 62 18 138/51 (80) 95 11/12/19 21:17 74 18 40 11/12/19 21:00 136/57 11/12/19 21:00 60 18 136/57 (83) 95 11/12/19 20:30 92 19 132/59 (83) 97 11/12/19 20:00 Mechanical Ventilator 60.0 11/12/19 20:00 75 11/12/19 20:00 140/57 11/12/19 20:00 76 16 140/57 (84) 95 11/12/19 20:00 60 11/12/19 19:39 69 19 40 11/12/19 19:30 66 18 137/45 (75) 100 11/12/19 19:00 63 18 133/42 (72) 11/12/19 19:00 133/42 11/12/19 18:30 62 18 76/41 (53) 98 11/12/19 18:05 102/57 11/12/19 18:00 64 18 102/57 (72) 99 11/12/19 17:30 88 18 128/80 (96) 99 11/12/19 17:29 51 19 40 11/12/19 17:00 63 18 102/58 (73) 92 11/12/19 17:00 102/58 11/12/19 16:30 62 18 136/68 (90) 92 11/12/19 16:00 61 11/12/19 16:00 98.0 68 18 146/64 (91) 92 11/12/19 16:00 146/64 11/12/19 16:00 60 11/12/19 16:00 Mechanical Ventilator 60.0 11/12/19 15:30 71 18 142/69 (93) 93 11/12/19 15:24 97 21 40 11/12/19 15:00 57 18 143/45 (77) 97 11/12/19 15:00 125/69 11/12/19 14:30 51 18 128/43 (71) 99 11/12/19 14:00 125/45 11/12/19 14:00 62 18 143/62 (89) 99 11/12/19 13:30 55 18 134/44 (74) 98 11/12/19 13:19 101 20 40 11/12/19 13:00 142/63 11/12/19 13:00 53 18 126/43 (70) 97 Intake and Output 11/12/19 11/13/19 19:00 07:00 Intake Total 1922.758 ml 1770.558 ml Output Total 40 ml 2040 ml Balance 1882.758 ml -269.442 ml Intake Free Water 40 ml IV Total 1882.758 ml 1770.558 ml Output Urine Total 1990 ml Stool Total 50 ml Gastric Drainage Total 40 ml # Voids 820 # Bowel Movements 1 3 Laboratory Tests Test 11/13/19 05:45 11/13/19 10:05 White Blood Count 9.4 K/UL (4.8-10.8) Red Blood Count 3.70 M/UL (4.20-5.40) L Hemoglobin 12.5 G/DL (12.0-16.0) Hematocrit 36.1 % (37.0-47.0) L Mean Corpuscular Volume 98 FL (80-99) Mean Corpuscular Hemoglobin 33.8 PG (27.0-31.0) H Mean Corpuscular Hemoglobin Concent 34.6 G/DL (32.0-36.0) Red Cell Distribution Width 13.4 % (11.6-14.8) Platelet Count 206 K/UL (150-450) Mean Platelet Volume 8.6 FL (6.5-10.1) Neutrophils (%) (Auto) 70.6 % (45.0-75.0) Lymphocytes (%) (Auto) 10.7 % (20.0-45.0) L Monocytes (%) (Auto) 12.2 % (1.0-10.0) H Eosinophils (%) (Auto) 5.2 % (0.0-3.0) H Basophils (%) (Auto) 1.4 % (0.0-2.0) Erythrocyte Sedimentation Rate 95 MM/HR (0-30) H Prothrombin Time 11.6 SEC (9.30-11.50) H Prothromb Time International Ratio 1.1 (0.9-1.1) Activated Partial Thromboplast Time 32 SEC (23-33) Sodium Level 140 MMOL/L (136-145) Potassium Level 2.8 MMOL/L (3.5-5.1) L Chloride Level 107 MMOL/L (98-107) Carbon Dioxide Level 26 MMOL/L (21-32) Anion Gap 8 mmol/L (5-15) Blood Urea Nitrogen 7 mg/dL (7-18) Creatinine 0.4 MG/DL (0.55-1.30) L Estimat Glomerular Filtration Rate > 60 mL/min (>60) Glucose Level 126 MG/DL (74-106) H Calcium Level 8.7 MG/DL (8.5-10.1) Total Bilirubin 1.0 MG/DL (0.2-1.0) Aspartate Amino Transf (AST/SGOT) 27 U/L (15-37) Alanine Aminotransferase (ALT/SGPT) 15 U/L (12-78) Alkaline Phosphatase 204 U/L (46-116) H C-Reactive Protein, Quantitative 18.7 mg/dL (0.00-0.90) H Total Protein 7.7 G/DL (6.4-8.2) Albumin 2.0 G/DL (3.4-5.0) L Globulin 5.7 g/dL Albumin/Globulin Ratio 0.4 (1.0-2.7) L Amylase Level 35 U/L (25-115) Lipase 40 U/L (73-393) L Random Amikacin Level Pending Microbiology Date/Time Source Procedure Growth Status 11/12/19 20:00 Stool Clostridium difficile Toxin Assay - Final Complete Height (Feet): 5 Height (Inches): 3.00 Weight (Pounds): 228 Medications Current Medications Medications (Trade) Dose Ordered Sig/Boubacar Route PRN Reason Start Time Stop Time Status Last Admin Dose Admin Acetaminophen (Tylenol) 650 mg Q6H PRN GT Mild Pain/Temp > 100.5 11/11/19 14:30 12/11/19 14:29 Albuterol/ Ipratropium (Albuterol/ Ipratropium) 3 ml Q4H PRN HHN Shortness of Breath 11/11/19 14:30 11/16/19 14:29 Amikacin Protocol (Amikacin pharmacy to dose) 1 ea DAILY PRN MISC Per rx protocol 11/12/19 13:30 12/12/19 13:29 Amikacin Sulfate 1000 mg/Sodium Chloride 114 ml @ 114 mls/hr Q48H IV 11/12/19 16:00 11/19/19 15:59 11/12/19 17:25 Ascorbic Acid (Vitamin C) 500 mg DAILY NG 11/12/19 09:00 12/12/19 08:59 11/13/19 10:07 Chlorhexidine Gluconate ([place]-Hex 2%) 1 applic DAILY@2000 TOPIC 11/13/19 20:00 12/13/19 19:59 Dextrose (Dextrose 50%) 25 ml Q30M PRN IV Hypoglycemia 11/11/19 20:30 12/11/19 20:29 Dextrose (Dextrose 50%) 50 ml Q30M PRN IV Hypoglycemia 11/11/19 20:30 12/11/19 20:29 Docusate Sodium (Colace) 100 mg DAILY GT 11/12/19 09:00 12/12/19 08:59 11/13/19 10:07 Dopamine HCl/ Dextrose 250 ml @ 0 mls/hr Q24H IV 11/11/19 23:00 12/11/19 22:59 11/13/19 11:54 Ferrous Sulfate (Feosol) 300 mg THREE TIMES A DAY GT 11/11/19 18:00 12/11/19 17:59 11/13/19 10:09 Insulin Aspart (NovoLOG) BEFORE MEALS AND HS SUBQ 11/11/19 22:00 12/11/19 21:59 Levothyroxine Sodium (Synthroid) 150 mcg DAILY@0630 GT 11/12/19 06:30 12/12/19 06:29 11/13/19 06:06 Multivitamins (Multivitamins W/ Minerals 15ml Liquid) 15 ml DAILY GT 11/12/19 09:00 12/12/19 08:59 11/13/19 10:06 Ondansetron HCl (Zofran) 4 mg Q6H PRN IVP Nausea & Vomiting 11/12/19 03:00 12/12/19 02:59 11/12/19 03:48 Phenytoin (Dilantin) 250 mg Q12HR@0630,1830 GT 11/12/19 18:30 12/12/19 18:29 11/13/19 06:07 Piperacillin Sod/ Tazobactam Sod 3.375 gm/Dextrose 110 ml @ 27.5 mls/hr EVERY 8 HOURS IVPB 11/12/19 14:00 11/16/19 21:59 11/13/19 06:06 Sodium Chloride 1,000 ml @ 100 mls/hr Q10H IV 11/11/19 23:30 12/11/19 23:29 11/13/19 05:34 Vancomycin HCl (Vanco rx to dose) 1 ea DAILY PRN MISC Per rx protocol 11/12/19 13:30 12/12/19 13:29 Vancomycin HCl 750 mg/Sodium Chloride 275 ml @ 183.333 mls/hr Q24H IVPB 11/13/19 15:00 11/18/19 14:59 Zinc Oxide (Zinc Oxide) 1 applic BID TOPIC 11/12/19 10:00 12/12/19 09:59 11/13/19 08:50 Assessment/Plan Diagnosis [facility] I: # Hypokalemia #Respiratory failure s/p trach # Seizure. # sepsis due to UTI #possible peneumonia #h/o anoxic brain injury #functional quadroplegia # Mobitz 1second-degree AV block and intermittent AV dissociation - s/p 40 meq of kcl PO - switch to 1/2NS + kcl 20 meq at 75cc/hr - Replete potassium - given addition 20 meq kcl IV - continue TF - continue abx per ID - on dopamine drip- maintain MAP > 65 - monitor lytes - daily BMP - check urine potassium Bear Nice M.D. Nov 13, 2019 12:47
--- NOTE | 2019-11-13 12:56 | Diagnostic Imaging Report ---
Indication: Abnormal liver function tests, history of cholecystitis Technique: Goss-scale and duplex images of the upper abdomen were obtained Comparison: 04/23/2017. Reference also made to abdomen pelvis CT of 01/18/2019 Findings: Gallbladder is nondistended. Gallstones are noted. There is apparent gallbladder wall thickening, may in part be an artifact of under distention. Patient unable to report sonographic Sky's sign. Common bile duct measures 5 mm in diameter. No intrahepatic biliary ductal dilatation. Liver demonstrates normal echogenicity. A calcification is seen in the right lobe, likely dystrophic, also evident on prior CT scan. Liver is somewhat enlarged. Portal vein and hepatic veins are patent. Pancreas is unremarkable. Spleen is unremarkable. Left kidney measures 11.4 cm in length. Right kidney measures 12 point cm length. Both kidneys demonstrate normal echogenicity. There is no hydronephrosis. Kidney demonstrates a lower pole cyst. Echogenic foci are seen in the left renal sinus. . Abdominal aorta is partially obscured by bowel gas, visualized portions are non-aneurysmal . Impression: Nondistended gallbladder with gallstones. Apparent gallbladder wall thickening, probably artifact of under distention but raises the possibility of acute cholecystitis. Consider nuclear medicine hepatobiliary scan if there is high clinical suspicion Negative for dilated bile ducts Echogenic foci in the left renal sinus, could represent nonobstructive calculi within the be artifactual given lack of evidence of such on prior CT scan Incidental findings left lower pole renal cyst, dystrophic right right lobe liver calcification Note incomplete visualization of portions of the abdominal aorta
[2019-11-13] MEDS: 1/2NS w/KCl 20mEq 1000ml 1,000 ML IV SCH (13:54)
--- NOTE | 2019-11-13 14:10 | General Progress Note ---
Assessment/Plan Problem List: (1) Urinary tract infection ICD Codes: N39.0 - Urinary tract infection, site not specified SNOMED: 69240231 (2) Recurrent seizures ICD Codes: G40.909 - Epilepsy, unspecified, not intractable, without status epilepticus SNOMED: 75946475, 41667197 (3) Chronic respiratory failure ICD Codes: J96.10 - Chronic respiratory failure, unspecified whether with hypoxia or hypercapnia SNOMED: 52195297 (4) Anoxic brain damage syndrome ICD Codes: G93.1 - Anoxic brain damage, not elsewhere classified SNOMED: 766693419 (5) Feeding by G-tube ICD Codes: Z93.1 - Gastrostomy status SNOMED: 558902885, 380845385 (6) Seizure disorder ICD Codes: G40.909 - Epilepsy, unspecified, not intractable, without status epilepticus SNOMED: 288638395 (7) Functional paraplegia (8) Anemia ICD Codes: D64.9 - Anemia, unspecified SNOMED: 584042760 Status: unchanged Assessment/Plan: vent abx cbc bmp am Subjective Constitutional: Reports: weakness Allergies: Coded Allergies: PEANUT (Verified Allergy, Unknown, 09/22/16) Uncoded Allergies: PEANUTS (Allergy, Unknown, 02/04/19) All Systems: reviewed and negative except above Subjective trach vent altered Objective Last 24 Hour Vital Signs Date Time Temp Pulse Resp B/P (MAP) Pulse Ox O2 Delivery O2 Flow Rate FiO2 11/13/19 13:00 63 18 159/48 (85) 97 11/13/19 12:37 55 18 40 11/13/19 12:30 57 18 152/69 (96) 97 11/13/19 12:00 Mechanical Ventilator 40.0 11/13/19 12:00 66 11/13/19 12:00 40 11/13/19 12:00 98.6 56 18 96/52 (67) 96 11/13/19 11:54 92/54 11/13/19 11:30 54 18 97 11/13/19 11:25 42 17 40 11/13/19 11:00 70 18 132/57 (82) 96 11/13/19 10:30 57 18 127/62 (83) 96 11/13/19 10:15 52 17 128/50 (76) 96 11/13/19 10:00 128/50 3/11/20 09:01 67 18 40 11/13/19 09:00 66 18 142/75 (97) 95 11/13/19 09:00 142/75 11/13/19 08:30 54 18 141/46 (77) 95 11/13/19 08:00 40 11/13/19 08:00 66 11/13/19 08:00 98.5 54 18 139/62 (87) 95 11/13/19 08:00 139/62 11/13/19 08:00 Mechanical Ventilator 40.0 11/13/19 07:48 50 18 40 11/13/19 07:30 53 18 121/54 (76) 94 11/13/19 07:00 146/47 11/13/19 07:00 59 18 146/47 (80) 95 11/13/19 06:00 149/52 11/13/19 06:00 53 18 149/52 (84) 95 11/13/19 05:54 62 11/13/19 05:34 129/63 11/13/19 05:30 60 18 129/63 (85) 96 11/13/19 05:17 86 20 40 11/13/19 05:00 58 19 130/49 (76) 11/13/19 05:00 129/63 11/13/19 04:30 70 17 139/60 (86) 11/13/19 04:00 61 11/13/19 04:00 Mechanical Ventilator 40.0 11/13/19 04:00 98.4 62 18 134/61 (85) 95 11/13/19 04:00 139/60 11/13/19 04:00 40 11/13/19 03:45 94 18 40 11/13/19 03:30 63 18 135/70 (91) 95 11/13/19 03:00 135/50 11/13/19 03:00 53 18 126/60 (82) 94 11/13/19 02:30 77 18 144/66 (92) 93 11/13/19 02:00 58 18 138/51 (80) 94 11/13/19 02:00 144/66 11/13/19 01:30 53 18 130/48 (75) 95 11/13/19 01:12 79 18 40 11/13/19 01:00 63 18 133/56 (81) 95 11/13/19 01:00 130/48 11/13/19 00:30 57 18 130/55 (80) 95 11/13/19 00:00 61 11/13/19 00:00 99.0 54 18 125/68 (87) 95 11/13/19 00:00 140/69 11/13/19 00:00 Mechanical Ventilator 60.0 11/13/19 00:00 60 11/12/19 23:47 72 18 40 11/12/19 23:30 53 18 121/49 (73) 94 11/12/19 23:29 147/68 11/12/19 23:00 69 18 139/41 (73) 94 11/12/19 23:00 132/49 11/12/19 22:30 59 18 136/45 (75) 94 11/12/19 22:00 115 17 154/70 (98) 92 11/12/19 22:00 154/70 11/12/19 21:30 62 18 138/51 (80) 95 11/12/19 21:17 74 18 40 11/12/19 21:00 136/57 11/12/19 21:00 60 18 136/57 (83) 95 11/12/19 20:30 92 19 132/59 (83) 97 11/12/19 20:00 Mechanical Ventilator 60.0 11/12/19 20:00 75 11/12/19 20:00 140/57 11/12/19 20:00 76 16 140/57 (84) 95 11/12/19 20:00 60 11/12/19 19:39 69 19 40 11/12/19 19:30 66 18 137/45 (75) 100 11/12/19 19:00 63 18 133/42 (72) 11/12/19 19:00 133/42 11/12/19 18:30 62 18 76/41 (53) 98 11/12/19 18:05 102/57 11/12/19 18:00 64 18 102/57 (72) 99 11/12/19 17:30 88 18 128/80 (96) 99 11/12/19 17:29 51 19 40 11/12/19 17:00 63 18 102/58 (73) 92 11/12/19 17:00 102/58 11/12/19 16:30 62 18 136/68 (90) 92 11/12/19 16:00 61 11/12/19 16:00 98.0 68 18 146/64 (91) 92 11/12/19 16:00 146/64 11/12/19 16:00 60 11/12/19 16:00 Mechanical Ventilator 60.0 11/12/19 15:30 71 18 142/69 (93) 93 11/12/19 15:24 97 21 40 11/12/19 15:00 57 18 143/45 (77) 97 11/12/19 15:00 125/69 11/12/19 14:30 51 18 128/43 (71) 99 Intake and Output 11/12/19 11/13/19 19:00 07:00 Intake Total 1922.758 ml 1770.558 ml Output Total 40 ml 2040 ml Balance 1882.758 ml -269.442 ml Intake Free Water 40 ml IV Total 1882.758 ml 1770.558 ml Output Urine Total 1990 ml Stool Total 50 ml Gastric Drainage Total 40 ml # Voids 820 # Bowel Movements 1 3 Laboratory Tests 11/13/19 05:45: White Blood Count 9.4, Red Blood Count 3.70L, Hemoglobin 12.5, Hematocrit 36.1L , Mean Corpuscular Volume 98, Mean Corpuscular Hemoglobin 33.8H, Mean Corpuscular Hemoglobin Concent 34.6, Red Cell Distribution Width 13.4, Platelet Count 206, Mean Platelet Volume 8.6, Neutrophils (%) (Auto) 70.6, Lymphocytes (% ) (Auto) 10.7L, Monocytes (%) (Auto) 12.2H, Eosinophils (%) (Auto) 5.2H, Basophils (%) (Auto) 1.4, Erythrocyte Sedimentation Rate 95H, Prothrombin Time 11.6H, Prothromb Time International Ratio 1.1, Activated Partial Thromboplast Time 32, Sodium Level 140, Potassium Level 2.8L, Chloride Level 107, Carbon Dioxide Level 26, Anion Gap 8, Blood Urea Nitrogen 7, Creatinine 0.4L, Estimat Glomerular Filtration Rate > 60, Glucose Level 126H, Calcium Level 8.7, Total Bilirubin 1.0, Aspartate Amino Transf (AST/SGOT) 27, Alanine Aminotransferase ( ALT/SGPT) 15, Alkaline Phosphatase 204H, C-Reactive Protein, Quantitative 18.7H , Total Protein 7.7, Albumin 2.0L, Globulin 5.7, Albumin/Globulin Ratio 0.4L, Amylase Level 35, Lipase 40L 11/13/19 10:05: Random Amikacin Level [Pending] Height (Feet): 5 Height (Inches): 3.00 Weight (Pounds): 228 General Appearance: lethargic EENT: normal ENT inspection Neck: normal alignment Cardiovascular: normal peripheral pulses, normal rate, regular rhythm Respiratory/Chest: chest wall non-tender, lungs clear, normal breath sounds Abdomen: normal bowel sounds, non tender, soft Edema: no edema noted Arm (L), no edema noted Arm (R), no edema noted Leg (L), no edema noted Leg (R), no edema noted Pedal (L), no edema noted Pedal (R), no edema noted Generalized Neurologic: motor weakness Skin: normal pigmentation, warm/dry Juaquin Ramos DO Nov 13, 2019 14:10
--- NOTE | 2019-11-13 14:32 | Surgery Progress Note ---
Surgery Progress Note Subjective Additional Comments neurology input appreciated labs noted wbc improved esr/crp noted Objective Last 24 Hour Vital Signs Date Time Temp Pulse Resp B/P (MAP) Pulse Ox O2 Delivery O2 Flow Rate FiO2 11/13/19 14:00 61 18 129/56 (80) 97 11/13/19 13:00 63 18 159/48 (85) 97 11/13/19 12:37 55 18 40 11/13/19 12:30 57 18 152/69 (96) 97 11/13/19 12:00 Mechanical Ventilator 40.0 11/13/19 12:00 66 11/13/19 12:00 40 11/13/19 12:00 98.6 56 18 96/52 (67) 96 11/13/19 11:54 92/54 11/13/19 11:30 54 18 97 11/13/19 11:25 42 17 40 11/13/19 11:00 70 18 132/57 (82) 96 11/13/19 10:30 57 18 127/62 (83) 96 11/13/19 10:15 52 17 128/50 (76) 96 11/13/19 10:00 128/50 11/13/19 09:01 67 18 40 11/13/19 09:00 66 18 142/75 (97) 95 11/13/19 09:00 142/75 11/13/19 08:30 54 18 141/46 (77) 95 11/13/19 08:00 40 11/13/19 08:00 66 11/13/19 08:00 98.5 54 18 139/62 (87) 95 11/13/19 08:00 139/62 11/13/19 08:00 Mechanical Ventilator 40.0 11/13/19 07:48 50 18 40 11/13/19 07:30 53 18 121/54 (76) 94 11/13/19 07:00 146/47 11/13/19 07:00 59 18 146/47 (80) 95 11/13/19 06:00 149/52 11/13/19 06:00 53 18 149/52 (84) 95 11/13/19 05:54 62 11/13/19 05:34 129/63 11/13/19 05:30 60 18 129/63 (85) 96 11/13/19 05:17 86 20 40 11/13/19 05:00 58 19 130/49 (76) 11/13/19 05:00 129/63 11/13/19 04:30 70 17 139/60 (86) 11/13/19 04:00 61 11/13/19 04:00 Mechanical Ventilator 40.0 11/13/19 04:00 98.4 62 18 134/61 (85) 95 11/13/19 04:00 139/60 11/13/19 04:00 40 11/13/19 03:45 94 18 40 11/13/19 03:30 63 18 135/70 (91) 95 11/13/19 03:00 135/50 11/13/19 03:00 53 18 126/60 (82) 94 11/13/19 02:30 77 18 144/66 (92) 93 11/13/19 02:00 58 18 138/51 (80) 94 11/13/19 02:00 144/66 11/13/19 01:30 53 18 130/48 (75) 95 11/13/19 01:12 79 18 40 11/13/19 01:00 63 18 133/56 (81) 95 11/13/19 01:00 130/48 11/13/19 00:30 57 18 130/55 (80) 95 11/13/19 00:00 61 11/13/19 00:00 99.0 54 18 125/68 (87) 95 11/13/19 00:00 140/69 11/13/19 00:00 Mechanical Ventilator 60.0 11/13/19 00:00 60 11/12/19 23:47 72 18 40 11/12/19 23:30 53 18 121/49 (73) 94 11/12/19 23:29 147/68 11/12/19 23:00 69 18 139/41 (73) 94 11/12/19 23:00 132/49 11/12/19 22:30 59 18 136/45 (75) 94 11/12/19 22:00 115 17 154/70 (98) 92 11/12/19 22:00 154/70 11/12/19 21:30 62 18 138/51 (80) 95 11/12/19 21:17 74 18 40 11/12/19 21:00 136/57 11/12/19 21:00 60 18 136/57 (83) 95 11/12/19 20:30 92 19 132/59 (83) 97 11/12/19 20:00 Mechanical Ventilator 60.0 11/12/19 20:00 75 11/12/19 20:00 140/57 11/12/19 20:00 76 16 140/57 (84) 95 11/12/19 20:00 60 11/12/19 19:39 69 19 40 11/12/19 19:30 66 18 137/45 (75) 100 11/12/19 19:00 63 18 133/42 (72) 11/12/19 19:00 133/42 11/12/19 18:30 62 18 76/41 (53) 98 11/12/19 18:05 102/57 11/12/19 18:00 64 18 102/57 (72) 99 11/12/19 17:30 88 18 128/80 (96) 99 11/12/19 17:29 51 19 40 11/12/19 17:00 63 18 102/58 (73) 92 11/12/19 17:00 102/58 11/12/19 16:30 62 18 136/68 (90) 92 11/12/19 16:00 61 11/12/19 16:00 98.0 68 18 146/64 (91) 92 11/12/19 16:00 146/64 11/12/19 16:00 60 11/12/19 16:00 Mechanical Ventilator 60.0 11/12/19 15:30 71 18 142/69 (93) 93 11/12/19 15:24 97 21 40 11/12/19 15:00 57 18 143/45 (77) 97 11/12/19 15:00 125/69 I&O Intake and Output 11/12/19 11/13/19 19:00 07:00 Intake Total 1922.758 ml 1770.558 ml Output Total 40 ml 2040 ml Balance 1882.758 ml -269.442 ml Intake Free Water 40 ml IV Total 1882.758 ml 1770.558 ml Output Urine Total 1990 ml Stool Total 50 ml Gastric Drainage Total 40 ml # Voids 820 # Bowel Movements 1 3 Dressing: other Wound: other Drains: other Cardiovascular: RSR Respiratory: decreased breath sounds Abdomen: soft, present bowel sounds Extremities: no cyanosis Laboratory Tests Test 11/13/19 05:45 11/13/19 10:05 White Blood Count 9.4 K/UL (4.8-10.8) Red Blood Count 3.70 M/UL (4.20-5.40) L Hemoglobin 12.5 G/DL (12.0-16.0) Hematocrit 36.1 % (37.0-47.0) L Mean Corpuscular Volume 98 FL (80-99) Mean Corpuscular Hemoglobin 33.8 PG (27.0-31.0) H Mean Corpuscular Hemoglobin Concent 34.6 G/DL (32.0-36.0) Red Cell Distribution Width 13.4 % (11.6-14.8) Platelet Count 206 K/UL (150-450) Mean Platelet Volume 8.6 FL (6.5-10.1) Neutrophils (%) (Auto) 70.6 % (45.0-75.0) Lymphocytes (%) (Auto) 10.7 % (20.0-45.0) L Monocytes (%) (Auto) 12.2 % (1.0-10.0) H Eosinophils (%) (Auto) 5.2 % (0.0-3.0) H Basophils (%) (Auto) 1.4 % (0.0-2.0) Erythrocyte Sedimentation Rate 95 MM/HR (0-30) H Prothrombin Time 11.6 SEC (9.30-11.50) H Prothromb Time International Ratio 1.1 (0.9-1.1) Activated Partial Thromboplast Time 32 SEC (23-33) Sodium Level 140 MMOL/L (136-145) Potassium Level 2.8 MMOL/L (3.5-5.1) L Chloride Level 107 MMOL/L (98-107) Carbon Dioxide Level 26 MMOL/L (21-32) Anion Gap 8 mmol/L (5-15) Blood Urea Nitrogen 7 mg/dL (7-18) Creatinine 0.4 MG/DL (0.55-1.30) L Estimat Glomerular Filtration Rate > 60 mL/min (>60) Glucose Level 126 MG/DL (74-106) H Calcium Level 8.7 MG/DL (8.5-10.1) Total Bilirubin 1.0 MG/DL (0.2-1.0) Aspartate Amino Transf (AST/SGOT) 27 U/L (15-37) Alanine Aminotransferase (ALT/SGPT) 15 U/L (12-78) Alkaline Phosphatase 204 U/L (46-116) H C-Reactive Protein, Quantitative 18.7 mg/dL (0.00-0.90) H Total Protein 7.7 G/DL (6.4-8.2) Albumin 2.0 G/DL (3.4-5.0) L Globulin 5.7 g/dL Albumin/Globulin Ratio 0.4 (1.0-2.7) L Amylase Level 35 U/L (25-115) Lipase 40 U/L (73-393) L Random Amikacin Level Pending Plan Problems: (1) Decubitus skin ulcer Assessment & Plan: Pt presented on admission with resolving pressure injury R side to posterior aspect of neck. Base of wound is moist with pink epithelial. Mild odor noted (L)1.5cm x (W)6cm. Partial thickness stage 2 pressure injury in close proximity R side neck. Base of wound is moist and viable(L)0.7cm x (W) 0.8cm. Small amt serosanguineous exudate noted. Moist pink epithelial L side to posterior aspect of neck(L)5cm x (W)16.5cm. Within base of wound is a full thickness stage 3 pressure injury L side neck under tracheal collar. Base of wound is moist ,wan with macerated borders.(L)0.9cm x (W)2cm x (D)0.6cmSmall amt serous exudate noted. Mild odor noted. Erosion noted at GT site . Scattered areas of hyperpigmentation noted to R and L buttocks and both ischial tuberosities. Non-blanching erythema without induration noted to Sacrum. L heel Is boggy with an area of non-blanching erythema with delineated margins. R heel is soft but blanchable. Tx.Plan: Apply Zinc Oxide Paste 20% to Epithelial areas around neck Twice Daily.Place Abd pads under tracheal collar . Cleanse Wound L side of neck with Saline. Apply TheraHoney. Apply Zinc Oxide Paste periwound. Cover with Optifoam drsg Daily and prn. Apply Moisture Barrier Paste to sacrum. Cover with Optifoam drsg. Change every 3 days and prn. Apply Cavilon Skin Barrier to both heels. Cover each heel with Optifoam drsg. Change every 7 days and prn. APM/LUIGI Mattress overlay. Reposition at least every 2 hours or as tolerated. Off- Load heels with pillow. (2) Recurrent seizures Assessment & Plan: As per neurology No injury identified Rx is written (3) Feeding by G-tube Assessment & Plan: DAILY ESTIMATED NEEDS: Needs based on Obese, critical care, wound healing 65.8kg abw 22-28 kcals/kg 4415-1205 total kcals 1.25-2 g protein/kg 82-131 g total protein 25-30 mL/kg 5621-3804 total fluid mLs NUTRITION DIAGNOSIS: 1) Swallowing difficulty R/T respiratory status as evidenced by pt trach-vent dep, GT dep 2) Increased kcal/prot needs R/T wound healing as evidenced by pt admitted w/ multiple wounds including full thickness pressure injury at L side neck under tracheal collar and partial thickness pressure injurty in close proximity to R side neck CURRENT TF:TF HELD: Jevity 1.2 @ 75ml/hr x 18 hrs ENTERAL NUTRITION RECOMMENDATIONS: Glucerna 1.2 @ 70ml/hr x 20 hrs (TF HELD FOR DILANTIN AND SYNTHROID) to provide 1200ml, 1440kcal, 67g prot, 968ml free water * FEED W/ HEMODYNAMIC STABLITY -> rec TF change to Glucerna 1.2 (h/o DM) -> Initiate Glucerna 1.2 @ 20ml/hr x 6 hrs -> advance 10ml q 4-6 hrs as tolerated to goal rate -> HOLD TF 1 HR BEFORE AND AFTER DILANTIN BID AND SYNTHROID QD (AM Dilantin and Synthroid given at the same time) -> Water flush per MD/ HOB over 30 degrees ADDITIONAL RECOMMENDATIONS: * Calibrated bed scale weights for accurate CBW (w/ added P200 mattress) * Wound healing: Continue Vit C/ add Contreras 1pkt BID via PEG * Monitor HD stability: on Dopamine * TF to run max 20 hrs w/ Dilantin BID + Synthroid QD (See above TF rec) * Monitor lytes daily w/ TF, replete as needed . (4) G-tube site cellulitis Assessment & Plan: as above (5) Abnormal LFTs Assessment & Plan: nondistended gallbladder with gallstones. Apparent gallbladder wall thickening, probably artifact of under distention but raises the possibility of acute cholecystitis. Consider nuclear medicine hepatobiliary scan if there is high clinical suspicion Negative for dilated bile ducts Echogenic foci in the left renal sinus, could represent nonobstructive calculi within the be artifactual given lack of evidence of such on prior CT scan Incidental findings left lower pole renal cyst, dystrophic right right lobe liver calcification Note incomplete visualization of portions of the abdominal aorta Heath Martell Nov 13, 2019 14:32
[2019-11-13] MEDS: Vancomycin 750mg/NS 275ml IVPB SCH ×2 (15:26)
[2019-11-13] MEDS ORDERED: Amikacin 1,000 MG in NS 110 ML IV SCH (17:00)
--- NOTE | 2019-11-13 18:06 | Infectious Diseases Prog Note ---
Assessment/Plan Assessment/Plan ASSESSMENT AND PLAN: 1. esbl e.coli uti, gram neg pna, ? gram + bacteremia, sepsis/shock, leukocytosis, fevers - vancomycin plus meropenem - f/u on cultures, labs and chest xr-ay - icu care - wound care per protocol - doubt sepsis source 2. The patient has history of trach, vent, and respiratory failure. 3. History of sepsis. 4. Quadriplegia and weakness. 5. History of CAD and STEMI, CHF 6. Hypertension. 7. Diabetes. 8. Blood sugar and blood pressure treatment per primary team for diabetes and hypertension. 9. Dementia. 10. Seizure history. 11. Chronic obstructive pulmonary disease. 12. History of diverticulosis. 13. Quadriplegia. 14. Encephalopathy. 15. Continue treatment per primary consultants. 16. Allergic to peanuts. 17. Social history is negative. 18. Family history is noncontributory. 19. MAR is noted. 20. Case was discussed with RN. Subjective Constitutional: Reports: other - + dopamine and trach/hansel; Denies: fever HEENT: Reports: congestion Respiratory: Reports: shortness of breath Cardiovascular: Denies: chest pain Gastrointestinal/Abdominal: Denies: nausea, vomiting, diarrhea Genitourinary: Reports: other - + gould Neurologic: Denies: headache Psychiatric: Denies: depression Skin: Denies: rash Hematologic: Denies: bleeding Musculoskeletal: Denies: pain Allergies: Coded Allergies: PEANUT (Verified Allergy, Unknown, 09/22/16) Uncoded Allergies: PEANUTS (Allergy, Unknown, 02/04/19) Objective Vital Signs Last 24 Hour Vital Signs Date Time Temp Pulse Resp B/P (MAP) Pulse Ox O2 Delivery O2 Flow Rate FiO2 11/13/19 17:41 95/56 11/13/19 17:18 76 19 40 11/13/19 17:00 76 21 134/110 (118) 99 11/13/19 16:00 40 11/13/19 16:00 74 20 146/66 (92) 96 11/13/19 16:00 Mechanical Ventilator 40.0 11/13/19 16:00 146/66 11/13/19 16:00 70 11/13/19 15:30 75 19 139/64 (89) 96 11/13/19 15:14 69 19 40 11/13/19 15:00 63 18 147/61 (89) 96 11/13/19 15:00 147/61 11/13/19 14:30 63 19 120/79 (93) 97 11/13/19 14:00 129/56 11/13/19 14:00 61 18 129/56 (80) 97 11/13/19 13:30 60 18 131/115 (120) 96 11/13/19 13:00 63 18 159/48 (85) 97 11/13/19 13:00 152/69 11/13/19 12:37 55 18 40 11/13/19 12:30 57 18 152/69 (96) 97 11/13/19 12:00 Mechanical Ventilator 40.0 11/13/19 12:00 66 11/13/19 12:00 40 11/13/19 12:00 96/52 11/13/19 12:00 98.6 56 18 96/52 (67) 96 11/13/19 11:54 92/54 11/13/19 11:30 54 18 97 11/13/19 11:25 42 17 40 11/13/19 11:00 70 18 132/57 (82) 96 11/13/19 10:30 57 18 127/62 (83) 96 11/13/19 10:15 52 17 128/50 (76) 96 11/13/19 10:00 128/50 11/13/19 09:01 67 18 40 11/13/19 09:00 66 18 142/75 (97) 95 11/13/19 09:00 142/75 11/13/19 08:30 54 18 141/46 (77) 95 11/13/19 08:00 40 11/13/19 08:00 66 11/13/19 08:00 98.5 54 18 139/62 (87) 95 11/13/19 08:00 139/62 11/13/19 08:00 Mechanical Ventilator 40.0 11/13/19 07:48 50 18 40 11/13/19 07:30 53 18 121/54 (76) 94 11/13/19 07:00 146/47 11/13/19 07:00 59 18 146/47 (80) 95 11/13/19 06:00 149/52 11/13/19 06:00 53 18 149/52 (84) 95 11/13/19 05:54 62 3/11/20 05:34 129/63 11/13/19 05:30 60 18 129/63 (85) 96 11/13/19 05:17 86 20 40 11/13/19 05:00 58 19 130/49 (76) 11/13/19 05:00 129/63 11/13/19 04:30 70 17 139/60 (86) 11/13/19 04:00 61 11/13/19 04:00 Mechanical Ventilator 40.0 11/13/19 04:00 98.4 62 18 134/61 (85) 95 11/13/19 04:00 139/60 11/13/19 04:00 40 11/13/19 03:45 94 18 40 11/13/19 03:30 63 18 135/70 (91) 95 11/13/19 03:00 135/50 11/13/19 03:00 53 18 126/60 (82) 94 11/13/19 02:30 77 18 144/66 (92) 93 11/13/19 02:00 58 18 138/51 (80) 94 11/13/19 02:00 144/66 11/13/19 01:30 53 18 130/48 (75) 95 11/13/19 01:12 79 18 40 11/13/19 01:00 63 18 133/56 (81) 95 11/13/19 01:00 130/48 11/13/19 00:30 57 18 130/55 (80) 95 11/13/19 00:00 61 11/13/19 00:00 99.0 54 18 125/68 (87) 95 11/13/19 00:00 140/69 11/13/19 00:00 Mechanical Ventilator 60.0 11/13/19 00:00 60 11/12/19 23:47 72 18 40 11/12/19 23:30 53 18 121/49 (73) 94 11/12/19 23:29 147/68 11/12/19 23:00 69 18 139/41 (73) 94 11/12/19 23:00 132/49 11/12/19 22:30 59 18 136/45 (75) 94 11/12/19 22:00 115 17 154/70 (98) 92 11/12/19 22:00 154/70 11/12/19 21:30 62 18 138/51 (80) 95 11/12/19 21:17 74 18 40 11/12/19 21:00 136/57 11/12/19 21:00 60 18 136/57 (83) 95 11/12/19 20:30 92 19 132/59 (83) 97 11/12/19 20:00 Mechanical Ventilator 60.0 11/12/19 20:00 75 11/12/19 20:00 140/57 11/12/19 20:00 76 16 140/57 (84) 95 11/12/19 20:00 60 11/12/19 19:39 69 19 40 11/12/19 19:30 66 18 137/45 (75) 100 11/12/19 19:00 63 18 133/42 (72) 11/12/19 19:00 133/42 11/12/19 18:30 62 18 76/41 (53) 98 11/12/19 18:05 102/57 11/12/19 18:00 64 18 102/57 (72) 99 Height (Feet): 5 Height (Inches): 3.00 Weight (Pounds): 228 General Appearance: other - + trach, vent and dopamine HEENT: normocephalic, atraumatic, anicteric, no JVD Respiratory/Chest: crackles/rales, rhonchi - bilaterally Cardiovascular: normal rate, regular rhythm, no gallop/murmur, no JVD Abdomen: normal bowel sounds, soft, non tender, no organomegaly, non distended Genitourinary: other - + gould - urine clear Extremities: no cyanosis Skin: no rash Neurologic/Psychiatric: diamond grader II-XII grossly normal, 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 Background mostly interstitial disease is unchanged, over one day Abdominal US: Impression: Nondistended gallbladder with gallstones. Apparent gallbladder wall thickening, probably artifact of under distention but raises the possibility of acute cholecystitis. Consider nuclear medicine hepatobiliary scan if there is high clinical suspicion Negative for dilated bile ducts Microbiology Date/Time Source Procedure Growth Status 11/11/19 09:14 Blood Blood Culture - Preliminary Resulted 11/11/19 09:00 Blood Blood Culture - Preliminary NO GROWTH AFTER 24 HOURS Resulted 11/11/19 09:35 Sputum Gram Stain - Final Resulted 11/11/19 09:35 Sputum Culture - Preliminary Gram Negative Bacillus 1 Resulted 11/11/19 00:00 Nasal Nares - Final Complete 11/11/19 00:00 Nasal Nares - Final Complete 11/12/19 20:00 Stool Clostridium difficile Toxin Assay - Final Complete 11/11/19 09:14 Urine,Clean Catch Urine Culture - Final Escherichia Coli - Esbl Complete 11/11/19 10:20 Rectum Received Laboratory Tests Test 11/13/19 05:45 11/13/19 10:05 White Blood Count 9.4 K/UL (4.8-10.8) Red Blood Count 3.70 M/UL (4.20-5.40) L Hemoglobin 12.5 G/DL (12.0-16.0) Hematocrit 36.1 % (37.0-47.0) L Mean Corpuscular Volume 98 FL (80-99) Mean Corpuscular Hemoglobin 33.8 PG (27.0-31.0) H Mean Corpuscular Hemoglobin Concent 34.6 G/DL (32.0-36.0) Red Cell Distribution Width 13.4 % (11.6-14.8) Platelet Count 206 K/UL (150-450) Mean Platelet Volume 8.6 FL (6.5-10.1) Neutrophils (%) (Auto) 70.6 % (45.0-75.0) Lymphocytes (%) (Auto) 10.7 % (20.0-45.0) L Monocytes (%) (Auto) 12.2 % (1.0-10.0) H Eosinophils (%) (Auto) 5.2 % (0.0-3.0) H Basophils (%) (Auto) 1.4 % (0.0-2.0) Erythrocyte Sedimentation Rate 95 MM/HR (0-30) H Prothrombin Time 11.6 SEC (9.30-11.50) H Prothromb Time International Ratio 1.1 (0.9-1.1) Activated Partial Thromboplast Time 32 SEC (23-33) Sodium Level 140 MMOL/L (136-145) Potassium Level 2.8 MMOL/L (3.5-5.1) L Chloride Level 107 MMOL/L (98-107) Carbon Dioxide Level 26 MMOL/L (21-32) Anion Gap 8 mmol/L (5-15) Blood Urea Nitrogen 7 mg/dL (7-18) Creatinine 0.4 MG/DL (0.55-1.30) L Estimat Glomerular Filtration Rate > 60 mL/min (>60) Glucose Level 126 MG/DL (74-106) H Calcium Level 8.7 MG/DL (8.5-10.1) Total Bilirubin 1.0 MG/DL (0.2-1.0) Aspartate Amino Transf (AST/SGOT) 27 U/L (15-37) Alanine Aminotransferase (ALT/SGPT) 15 U/L (12-78) Alkaline Phosphatase 204 U/L (46-116) H C-Reactive Protein, Quantitative 18.7 mg/dL (0.00-0.90) H Total Protein 7.7 G/DL (6.4-8.2) Albumin 2.0 G/DL (3.4-5.0) L Globulin 5.7 g/dL Albumin/Globulin Ratio 0.4 (1.0-2.7) L Amylase Level 35 U/L (25-115) Lipase 40 U/L (73-393) L Random Amikacin Level < 2.0 MG/L Current Medications Medications (Trade) Dose Ordered Sig/Boubacar Route PRN Reason Start Time Stop Time Status Last Admin Dose Admin Acetaminophen (Tylenol) 650 mg Q6H PRN GT Mild Pain/Temp > 100.5 11/11/19 14:30 12/11/19 14:29 Albuterol/ Ipratropium (Albuterol/ Ipratropium) 3 ml Q4H PRN HHN Shortness of Breath 11/11/19 14:30 11/16/19 14:29 Amikacin Protocol (Amikacin pharmacy to dose) 1 ea DAILY PRN MISC Per rx protocol 11/12/19 13:30 12/12/19 13:29 Amikacin Sulfate 1000 mg/Sodium Chloride 114 ml @ 114 mls/hr Q48H IV 11/13/19 17:00 11/20/19 16:59 11/13/19 17:00 Ascorbic Acid (Vitamin C) 500 mg DAILY NG 11/12/19 09:00 12/12/19 08:59 11/13/19 10:07 Chlorhexidine Gluconate ([place]-Hex 2%) 1 applic DAILY@2000 TOPIC 11/13/19 20:00 12/13/19 19:59 Dextrose (Dextrose 50%) 25 ml Q30M PRN IV Hypoglycemia 11/11/19 20:30 12/11/19 20:29 Dextrose (Dextrose 50%) 50 ml Q30M PRN IV Hypoglycemia 11/11/19 20:30 12/11/19 20:29 Docusate Sodium (Colace) 100 mg DAILY GT 11/12/19 09:00 12/12/19 08:59 11/13/19 10:07 Dopamine HCl/ Dextrose 250 ml @ 0 mls/hr Q24H IV 11/11/19 23:00 12/11/19 22:59 11/13/19 17:41 Ferrous Sulfate (Feosol) 300 mg THREE TIMES A DAY GT 11/11/19 18:00 12/11/19 17:59 11/13/19 13:24 Insulin Aspart (NovoLOG) BEFORE MEALS AND HS SUBQ 11/11/19 22:00 12/11/19 21:59 Levothyroxine Sodium (Synthroid) 150 mcg DAILY@0630 GT 11/12/19 06:30 12/12/19 06:29 11/13/19 06:06 Multivitamins (Multivitamins W/ Minerals 15ml Liquid) 15 ml DAILY GT 11/12/19 09:00 12/12/19 08:59 11/13/19 10:06 Ondansetron HCl (Zofran) 4 mg Q6H PRN IVP Nausea & Vomiting 11/12/19 03:00 12/12/19 02:59 11/12/19 03:48 Phenytoin (Dilantin) 250 mg Q12HR@0630,1830 GT 11/12/19 18:30 12/12/19 18:29 11/13/19 06:07 Piperacillin Sod/ Tazobactam Sod 3.375 gm/Dextrose 110 ml @ 27.5 mls/hr EVERY 8 HOURS IVPB 11/12/19 14:00 11/16/19 21:59 11/13/19 13:54 Sodium 1,000 ml @ 75 mls/hr [id number] IV 11/13/19 12:45 12/13/19 12:44 11/13/19 13:54 Vancomycin HCl (Vanco rx to dose) 1 ea DAILY PRN MISC Per rx protocol 11/12/19 13:30 12/12/19 13:29 Vancomycin HCl 750 mg/Sodium Chloride 275 ml @ 183.333 mls/hr Q24H IVPB 11/13/19 15:00 11/18/19 14:59 11/13/19 15:26 Zinc Oxide (Zinc Oxide) 1 applic BID TOPIC 11/12/19 10:00 12/12/19 09:59 11/13/19 08:50 Leslie Corrales MD Nov 13, 2019 18:06
[2019-11-13] MEDS: Dyna-Hex 2% Top Sol 2oz TOPIC SCH (20:57)
[2019-11-14] VITALS (58 sets, daily range): BP systolic 63–161; BP diastolic 35–94
[2019-11-14] MEDS: 1/2NS w/KCl 20mEq 1000ml 1,000 ML IV SCH ×2 (02:17→14:59)
[2019-11-14 04:17] LABS: BASOPHILS % (AUTO) 0.8 % (0.0-2.0); EOSINOPHILS % (AUTO) 4.7 % (0.0-3.0); HEMOGLOBIN 12.9 G/DL (12.0-16.0); LYMPHOCYTES % (AUTO) 11.9 % (20.0-45.0); MEAN CORPUSCULAR VOLUME 95 FL (80-99); MONOCYTES % (AUTO) 11.1 % (1.0-10.0); NEUTROPHILS % (AUTO) 71.6 % (45.0-75.0); PLATELET COUNT 214 K/UL (150-450); RED BLOOD COUNT 3.69 M/UL (4.20-5.40); RED CELL DISTRIBUTION WIDTH 13.1 % (11.6-14.8); WHITE BLOOD COUNT 10.3 K/UL (4.8-10.8)
--- NOTE | 2019-11-14 04:30 | Progress Note ---
DATE: 11/13/2019 SUBJECTIVE: The patient remains in the intensive care unit. No hemodynamically significant bradyarrhythmias noted. She remains on ventilator support. OBJECTIVE: VITAL SIGNS: Blood pressure 149/52, pulse 53, and respiratory rate 18. LUNGS: Bilateral breath sounds. Rhonchi. CARDIAC: Regular rhythm and rate. Normal S1 and S2. ABDOMEN: Soft. EXTREMITIES: Trace edema. LABORATORY DATA: White count 9.4 and hemoglobin 12.5. Sodium 140, potassium 2.8, bicarb 26, BUN 7, creatinine 0.4, and albumin 2. Dilantin 14.5. Urine culture with E coli ESBL. IMPRESSION: 1. Respiratory failure. 2. Sepsis with recovering shock. 3. ESBL Escherichia coli urinary tract infection. 4. Hypokalemia. 5. Conduction system disease of the heart with ____ episodes of second-degree AV block. 6. Dilantin toxicity, resolved. PLAN: 1. ICU care. 2. Cardiac monitoring. 3. Antimicrobials per Infectious Disease. 4. Potassium replacement. 5. Check magnesium. 6. No antiarrhythmics at this time. 7. No need for pacemaker. 8. Re-dose Dilantin level. Eder Tenorio M.D. DR: AWAIS JOB#: [id number] CC:
[2019-11-14 04:33] LABS: PHOSPHORUS 1.6 MG/DL (2.5-4.9)
[2019-11-14 04:36] LABS: ANION GAP 9 mmol/L (5-15); BLOOD UREA NITROGEN 7 mg/dL (7-18); CALCIUM 9.4 MG/DL (8.5-10.1); CARBON DIOXIDE 25 MMOL/L (21-32); CHLORIDE 104 MMOL/L (98-107); CREATININE 0.5 MG/DL (0.55-1.30); POTASSIUM 3.1 MMOL/L (3.5-5.1); SODIUM 138 MMOL/L (136-145)
[2019-11-14] MEDS: DOPamine 400mg/250ml 250 ML IV SCH ×3 (04:50→17:19)
[2019-11-14] MEDS: Phenytoin Susp 100mg/4ml GT SCH ×2 (06:27→17:11)
[2019-11-14] MEDS: NovoLOG Insulin Flexpen SUBQ SCH ×4 (06:30→20:58)
--- NOTE | 2019-11-14 08:45 | Consultation ---
DATE OF CONSULTATION: 11/11/2019 CARDIOLOGY CONSULTATION NOTE: POOR AUDIO QUALITY CONSULTING PHYSICIAN: Eder Tenorio M.D. REQUESTING PHYSICIAN: Grabiel Hogan M.D. REASON FOR CONSULTATION: Bradycardia and hypotension. 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 Tonic-clonic seizure activity was recorded antecedent . The patient was admitted to the . Subsequently, the patient developed hypotension and bradycardia. She was given a dose of atropine and fluid challenge with improvement. She was transferred to the intensive care unit. case with staff. PAST MEDICAL HISTORY: From records include seizure disorder, hypothyroidism, bronchospastic lung disease, cerebrovascular disease with dementia, dysphagia with G-tube, tracheostomy, , permanent pacemaker, quadriplegia, diverticulosis, coronary artery disease, and history of congestive heart failure. MEDICATIONS: Reviewed and reconciled. FAMILY HISTORY: Not known. SOCIAL HISTORY: Not known. REVIEW OF SYSTEMS: Not obtainable. PHYSICAL EXAMINATION: VITAL SIGNS: Blood pressure is now 85/50, heart rate 68, and respiratory rate 20. She is afebrile. GENERAL: Elderly, withdrawn, noncommunicative. HEENT: Tracheostomy site clean with thin secretions. LUNGS: Bilateral breath sounds with rhonchi. CARDIAC: Regular rhythm and rate. Normal S1 and S2 with no third heart sound. ABDOMEN: Soft. EXTREMITIES: There is no edema. There are contractures noted. LABORATORY DATA: Dilantin level is 18. Normal blood count and chemistry panel. Urinalysis with pyuria. IMPRESSION: 1. Seizure disorder with possible breakthrough seizure. 2. . 3. Shock. 4. Ventilator-dependent respiratory failure. PLAN: 1. ICU care. 2. Central venous access. 3. Volume resuscitation. 4. Pressor support with dopamine if volume support is inadequate with albumin and saline challenge. 5. Seizure precautions. 6. Antimicrobials per Infectious Disease business system consultant. 7. . 8. Cardiac monitoring. 9. Atropine at bedside. 10. . Eder Tenorio M.D. DR: ROSETTE JOB#: [id number] CC:
[2019-11-14] MEDS: Ascorbic Acid 500mg tab NG SCH (09:06)
[2019-11-14] MEDS: Docusate 100mg/10ml Liq GT SCH (09:06)
[2019-11-14] MEDS: Multivitamins W/Minerals 15 ML UDC GT SCH (09:06)
[2019-11-14] MEDS: Ferrous Sulfate 300 MG/5 ML UDC GT SCH ×3 (09:06→17:12)
[2019-11-14] MEDS: Zinc Oxide Oint 2oz TOPIC SCH ×2 (09:07→17:12)
--- NOTE | 2019-11-14 11:00 | Pulmonology Progress Note ---
Assessment/Plan Assessment/Plan IMPRESSION: 1. Supratherapeutic Dilantin level. 2. Questionable seizure. 3. UTI. 4. Chronic respiratory failure. 5. Septic shock. 6. Bradycardia DISCUSSION: Seen by cardiology and ID. Continue vent. Continue present medications care. I will follow carefully. May need PPM Will discuss with cardiology Grabiel Hogan M.D. Subjective Interval Events: Remains bradycardic; on dopamine Constitutional: Reports: no symptoms HEENT: Repors: no symptoms Respiratory: Reports: no symptoms Cardiovascular: Reports: no symptoms Gastrointestinal/Abdominal: Reports: no symptoms Allergies: Coded Allergies: PEANUT (Verified Allergy, Unknown, 09/22/16) Uncoded Allergies: PEANUTS (Allergy, Unknown, 02/04/19) Objective Last 24 Hour Vital Signs Date Time Temp Pulse Resp B/P (MAP) Pulse Ox O2 Delivery O2 Flow Rate FiO2 11/14/19 10:00 54 18 107/60 (76) 97 11/14/19 09:21 80 19 40 11/14/19 09:20 40 11/14/19 09:00 56 18 150/62 (91) 96 11/14/19 08:00 Mechanical Ventilator 11/14/19 08:00 58 11/14/19 08:00 99.1 54 18 138/55 (82) 94 11/14/19 07:08 66 18 40 11/14/19 07:00 132/58 11/14/19 07:00 70 18 125/57 (79) 96 11/14/19 06:30 75 19 143/66 (91) 96 11/14/19 06:00 71 21 146/60 (88) 98 11/14/19 06:00 146/60 11/14/19 05:30 84 21 142/50 (80) 97 11/14/19 05:14 77 19 40 11/14/19 05:00 64 18 136/47 (76) 95 11/14/19 04:50 131/46 11/14/19 04:30 61 20 131/46 (74) 97 11/14/19 04:00 40 11/14/19 04:00 70 11/14/19 04:00 Mechanical Ventilator 11/14/19 04:00 98.8 62 19 117/94 (102) 95 11/14/19 04:00 131/46 11/14/19 03:30 64 20 119/44 (69) 95 11/14/19 03:00 66 22 120/60 (80) 100 11/14/19 03:00 119/44 11/14/19 02:57 71 20 40 11/14/19 02:30 95 19 115/57 (76) 97 11/14/19 02:00 101 20 93/68 (76) 97 11/14/19 02:00 115/57 11/14/19 01:30 103 22 109/62 (78) 97 11/14/19 01:10 102 19 40 11/14/19 01:00 103 21 103/69 (80) 97 11/14/19 01:00 109/62 11/14/19 00:30 60 18 116/44 (68) 95 11/14/19 00:00 40 11/14/19 00:00 Mechanical Ventilator 11/14/19 00:00 116/44 11/14/19 00:00 83 11/14/19 00:00 99.0 68 18 135/68 (90) 99 11/13/19 23:37 120/82 11/13/19 23:30 52/39 11/13/19 23:30 76 23 52/39 (43) 96 11/13/19 23:15 100 21 40 11/13/19 23:00 74 18 96/76 (83) 97 11/13/19 23:00 52/39 11/13/19 22:30 73 18 87/59 (68) 97 11/13/19 22:00 82/49 11/13/19 22:00 86 21 87/59 (68) 96 11/13/19 21:30 75 19 144/60 (88) 97 11/13/19 21:02 74 18 40 11/13/19 21:00 74 18 136/66 (89) 97 11/13/19 20:58 136/66 11/13/19 20:30 70 18 141/55 (83) 97 11/13/19 20:00 40 11/13/19 20:00 142/69 11/13/19 20:00 98.6 64 18 142/69 (93) 96 11/13/19 20:00 Mechanical Ventilator 11/13/19 19:30 60 18 153/56 (88) 96 11/13/19 19:00 60 18 149/64 (92) 96 11/13/19 19:00 56 18 40 11/13/19 18:30 76 18 144/81 (102) 97 11/13/19 18:00 72 18 90/70 (77) 96 11/13/19 18:00 90/70 11/13/19 17:41 95/56 11/13/19 17:30 71 18 65/44 (51) 97 11/13/19 17:18 76 19 40 11/13/19 17:00 76 21 134/110 (118) 99 11/13/19 17:00 134/110 11/13/19 16:00 40 11/13/19 16:00 98.4 74 20 146/66 (92) 96 11/13/19 16:00 Mechanical Ventilator 40.0 11/13/19 16:00 146/66 11/13/19 16:00 70 11/13/19 15:30 75 19 139/64 (89) 96 11/13/19 15:14 69 19 40 11/13/19 15:00 63 18 147/61 (89) 96 11/13/19 15:00 147/61 11/13/19 14:30 63 19 120/79 (93) 97 11/13/19 14:00 129/56 11/13/19 14:00 61 18 129/56 (80) 97 11/13/19 13:30 60 18 131/115 (120) 96 11/13/19 13:00 63 18 159/48 (85) 97 11/13/19 13:00 152/69 11/13/19 12:37 55 18 40 11/13/19 12:30 57 18 152/69 (96) 97 11/13/19 12:00 Mechanical Ventilator 40.0 11/13/19 12:00 66 11/13/19 12:00 40 11/13/19 12:00 96/52 11/13/19 12:00 98.6 56 18 96/52 (67) 96 11/13/19 11:54 92/54 11/13/19 11:30 54 18 97 11/13/19 11:25 42 17 40 11/13/19 11:00 70 18 132/57 (82) 96 Intake and Output 11/13/19 11/14/19 19:00 07:00 Intake Total 1686.09327 ml 1608.20966 ml Output Total 2010 ml 1733 ml Balance -323.68605 ml -124.17349 ml Intake Free Water 100 ml 200 ml IV Total 1526.00693 ml 1098.64798 ml Tube Feeding 60 ml 310 ml Output Urine Total 2010 ml 1730 ml Stool Total 3 ml General Appearance: no acute distress HEENT: normocephalic Respiratory/Chest: chest wall non-tender Cardiovascular: normal peripheral pulses Abdomen: normal bowel sounds Microbiology Date/Time Source Procedure Growth Status 11/12/19 20:00 Stool Clostridium difficile Toxin Assay - Final Complete Laboratory Tests 11/13/19 18:05: Urine Creatinine 11.2L, Urine Potassium Timed 14 11/14/19 03:00: White Blood Count 10.3, Red Blood Count 3.69L, Hemoglobin 12.9, Hematocrit 35.0L , Mean Corpuscular Volume 95, Mean Corpuscular Hemoglobin 34.9H, Mean Corpuscular Hemoglobin Concent 36.7H, Red Cell Distribution Width 13.1, Platelet Count 214, Mean Platelet Volume 8.6, Neutrophils (%) (Auto) 71.6, Lymphocytes (%) (Auto) 11.9L, Monocytes (%) (Auto) 11.1H, Eosinophils (%) (Auto ) 4.7H, Basophils (%) (Auto) 0.8, Sodium Level 138, Potassium Level 3.1L, Chloride Level 104, Carbon Dioxide Level 25, Anion Gap 9, Blood Urea Nitrogen 7 , Creatinine 0.5L, Estimat Glomerular Filtration Rate > 60, Glucose Level 147H, Calcium Level 9.4, Phosphorus Level 1.6L, Magnesium Level 1.6L Current Medications Medications (Trade) Dose Ordered Sig/Boubacar Route PRN Reason Start Time Stop Time Status Last Admin Dose Admin Acetaminophen (Tylenol) 650 mg Q6H PRN GT Mild Pain/Temp > 100.5 11/11/19 14:30 12/11/19 14:29 Albuterol/ Ipratropium (Albuterol/ Ipratropium) 3 ml Q4H PRN HHN Shortness of Breath 11/11/19 14:30 11/16/19 14:29 Ascorbic Acid (Vitamin C) 500 mg DAILY NG 11/12/19 09:00 12/12/19 08:59 11/14/19 09:06 Chlorhexidine Gluconate ([place]-Hex 2%) 1 applic DAILY@2000 TOPIC 11/13/19 20:00 12/13/19 19:59 11/13/19 20:57 Dextrose (Dextrose 50%) 25 ml Q30M PRN IV Hypoglycemia 11/11/19 20:30 12/11/19 20:29 Dextrose (Dextrose 50%) 50 ml Q30M PRN IV Hypoglycemia 11/11/19 20:30 12/11/19 20:29 Docusate Sodium (Colace) 100 mg DAILY GT 11/12/19 09:00 12/12/19 08:59 11/14/19 09:06 Dopamine HCl/ Dextrose 250 ml @ 0 mls/hr Q24H IV 11/11/19 23:00 12/11/19 22:59 11/14/19 04:50 Ferrous Sulfate (Feosol) 300 mg THREE TIMES A DAY GT 11/11/19 18:00 12/11/19 17:59 11/14/19 09:06 Insulin Aspart (NovoLOG) BEFORE MEALS AND HS SUBQ 11/11/19 22:00 12/11/19 21:59 Levothyroxine Sodium (Synthroid) 150 mcg DAILY@0630 GT 11/12/19 06:30 12/12/19 06:29 11/14/19 06:27 Meropenem 1 gm/ Sodium Chloride 100 ml @ 200 mls/hr Q8HR IVPB 11/13/19 20:00 11/18/19 19:59 11/14/19 05:35 Multivitamins (Multivitamins W/ Minerals 15ml Liquid) 15 ml DAILY GT 11/12/19 09:00 12/12/19 08:59 11/14/19 09:06 Ondansetron HCl (Zofran) 4 mg Q6H PRN IVP Nausea & Vomiting 11/12/19 03:00 12/12/19 02:59 11/12/19 03:48 Phenytoin (Dilantin) 250 mg Q12HR@0630,1830 GT 11/12/19 18:30 12/12/19 18:29 11/14/19 06:27 Sodium 1,000 ml @ 75 mls/hr [id number] IV 11/13/19 12:45 12/13/19 12:44 11/14/19 02:17 Vancomycin HCl (Vanco rx to dose) 1 ea DAILY PRN MISC Per rx protocol 11/12/19 13:30 12/12/19 13:29 Vancomycin HCl 750 mg/Sodium Chloride 275 ml @ 183.333 mls/hr Q24H IVPB 11/13/19 15:00 11/18/19 14:59 11/13/19 15:26 Zinc Oxide (Zinc Oxide) 1 applic BID TOPIC 11/12/19 10:00 12/12/19 09:59 11/14/19 09:07 Grabiel Hogan MD Nov 14, 2019 11:00
--- NOTE | 2019-11-14 13:42 | General Progress Note ---
Assessment/Plan Problem List: (1) Urinary tract infection ICD Codes: N39.0 - Urinary tract infection, site not specified SNOMED: 99266880 (2) Recurrent seizures ICD Codes: G40.909 - Epilepsy, unspecified, not intractable, without status epilepticus SNOMED: 99063501, 53037410 (3) Chronic respiratory failure ICD Codes: J96.10 - Chronic respiratory failure, unspecified whether with hypoxia or hypercapnia SNOMED: 88117129 (4) Anoxic brain damage syndrome ICD Codes: G93.1 - Anoxic brain damage, not elsewhere classified SNOMED: 575394711 (5) Feeding by G-tube ICD Codes: Z93.1 - Gastrostomy status SNOMED: 243499994, 090489226 (6) Seizure disorder ICD Codes: G40.909 - Epilepsy, unspecified, not intractable, without status epilepticus SNOMED: 251703720 (7) Functional paraplegia (8) Anemia ICD Codes: D64.9 - Anemia, unspecified SNOMED: 285423808 Status: unchanged Assessment/Plan: vent abx cbc bmp am Subjective Constitutional: Reports: weakness Allergies: Coded Allergies: PEANUT (Verified Allergy, Unknown, 09/22/16) Uncoded Allergies: PEANUTS (Allergy, Unknown, 02/04/19) All Systems: reviewed and negative except above Subjective trach vent altered Objective Last 24 Hour Vital Signs Date Time Temp Pulse Resp B/P (MAP) Pulse Ox O2 Delivery O2 Flow Rate FiO2 11/14/19 13:00 71 18 145/49 (81) 95 11/14/19 12:45 76 18 40 11/14/19 12:00 69 18 124/53 (76) 98 11/14/19 12:00 66 11/14/19 12:00 Mechanical Ventilator 11/14/19 12:00 40 11/14/19 11:23 83/44 11/14/19 11:04 88 22 40 11/14/19 11:00 60 18 83/44 (57) 96 11/14/19 10:00 54 18 107/60 (76) 97 11/14/19 09:21 80 19 40 11/14/19 09:00 56 18 150/62 (91) 96 11/14/19 08:00 Mechanical Ventilator 11/14/19 08:00 58 11/14/19 08:00 99.1 54 18 138/55 (82) 94 11/14/19 08:00 40 11/14/19 07:08 66 18 40 11/14/19 07:00 132/58 11/14/19 07:00 70 18 125/57 (79) 96 11/14/19 06:30 75 19 143/66 (91) 96 11/14/19 06:00 71 21 146/60 (88) 98 11/14/19 06:00 146/60 11/14/19 05:30 84 21 142/50 (80) 97 11/14/19 05:14 77 19 40 11/14/19 05:00 64 18 136/47 (76) 95 11/14/19 04:50 131/46 11/14/19 04:30 61 20 131/46 (74) 97 11/14/19 04:00 40 11/14/19 04:00 70 11/14/19 04:00 Mechanical Ventilator 11/14/19 04:00 98.8 62 19 117/94 (102) 95 11/14/19 04:00 131/46 11/14/19 03:30 64 20 119/44 (69) 95 11/14/19 03:00 66 22 120/60 (80) 100 11/14/19 03:00 119/44 11/14/19 02:57 71 20 40 11/14/19 02:30 95 19 115/57 (76) 97 11/14/19 02:00 101 20 93/68 (76) 97 11/14/19 02:00 115/57 11/14/19 01:30 103 22 109/62 (78) 97 11/14/19 01:10 102 19 40 11/14/19 01:00 103 21 103/69 (80) 97 11/14/19 01:00 109/62 11/14/19 00:30 60 18 116/44 (68) 95 11/14/19 00:00 40 11/14/19 00:00 Mechanical Ventilator 11/14/19 00:00 116/44 11/14/19 00:00 83 11/14/19 00:00 99.0 68 18 135/68 (90) 99 11/13/19 23:37 120/82 11/13/19 23:30 52/39 11/13/19 23:30 76 23 52/39 (43) 96 11/13/19 23:15 100 21 40 11/13/19 23:00 74 18 96/76 (83) 97 11/13/19 23:00 52/39 11/13/19 22:30 73 18 87/59 (68) 97 11/13/19 22:00 82/49 11/13/19 22:00 86 21 87/59 (68) 96 11/13/19 21:30 75 19 144/60 (88) 97 11/13/19 21:02 74 18 40 11/13/19 21:00 74 18 136/66 (89) 97 11/13/19 20:58 136/66 11/13/19 20:30 70 18 141/55 (83) 97 11/13/19 20:00 40 11/13/19 20:00 142/69 11/13/19 20:00 98.6 64 18 142/69 (93) 96 11/13/19 20:00 Mechanical Ventilator 11/13/19 19:30 60 18 153/56 (88) 96 11/13/19 19:00 60 18 149/64 (92) 96 11/13/19 19:00 56 18 40 11/13/19 18:30 76 18 144/81 (102) 97 11/13/19 18:00 72 18 90/70 (77) 96 11/13/19 18:00 90/70 11/13/19 17:41 95/56 11/13/19 17:30 71 18 65/44 (51) 97 11/13/19 17:18 76 19 40 11/13/19 17:00 76 21 134/110 (118) 99 11/13/19 17:00 134/110 11/13/19 16:00 40 11/13/19 16:00 98.4 74 20 146/66 (92) 96 11/13/19 16:00 Mechanical Ventilator 40.0 11/13/19 16:00 146/66 11/13/19 16:00 70 11/13/19 15:30 75 19 139/64 (89) 96 11/13/19 15:14 69 19 40 11/13/19 15:00 63 18 147/61 (89) 96 11/13/19 15:00 147/61 11/13/19 14:30 63 19 120/79 (93) 97 11/13/19 14:00 129/56 11/13/19 14:00 61 18 129/56 (80) 97 Intake and Output 11/13/19 11/14/19 19:00 07:00 Intake Total 1686.46738 ml 1608.36000 ml Output Total 2009 ml 1733 ml Balance -323.66338 ml -124.49777 ml Intake Free Water 100 ml 200 ml IV Total 1526.67815 ml 1098.97142 ml Tube Feeding 60 ml 310 ml Output Urine Total 2009 ml 1730 ml Stool Total 3 ml Laboratory Tests 11/13/19 18:05: Urine Creatinine 11.2L, Urine Potassium Timed 14 11/14/19 03:00: White Blood Count 10.3, Red Blood Count 3.69L, Hemoglobin 12.9, Hematocrit 35.0L , Mean Corpuscular Volume 95, Mean Corpuscular Hemoglobin 34.9H, Mean Corpuscular Hemoglobin Concent 36.7H, Red Cell Distribution Width 13.1, Platelet Count 214, Mean Platelet Volume 8.6, Neutrophils (%) (Auto) 71.6, Lymphocytes (%) (Auto) 11.9L, Monocytes (%) (Auto) 11.1H, Eosinophils (%) (Auto ) 4.7H, Basophils (%) (Auto) 0.8, Sodium Level 138, Potassium Level 3.1L, Chloride Level 104, Carbon Dioxide Level 25, Anion Gap 9, Blood Urea Nitrogen 7 , Creatinine 0.5L, Estimat Glomerular Filtration Rate > 60, Glucose Level 147H, Calcium Level 9.4, Phosphorus Level 1.6L, Magnesium Level 1.6L Height (Feet): 5 Height (Inches): 3.00 Weight (Pounds): 114 General Appearance: lethargic EENT: normal ENT inspection Neck: normal alignment Cardiovascular: normal peripheral pulses, normal rate, regular rhythm Respiratory/Chest: chest wall non-tender, lungs clear, normal breath sounds Abdomen: normal bowel sounds, non tender, soft Extremities: normal inspection Edema: no edema noted Arm (L), no edema noted Arm (R), no edema noted Leg (L), no edema noted Leg (R), no edema noted Pedal (L), no edema noted Pedal (R), no edema noted Generalized Neurologic: motor weakness Skin: normal pigmentation, warm/dry RamosJuaquin Chi-Marie DO Nov 14, 2019 13:42
[2019-11-14] MEDS: Vancomycin 750mg/NS 275ml IVPB SCH ×2 (14:59)
[2019-11-14] MEDS ORDERED: NS 275ml ONE (15:42)
[2019-11-14] MEDS ORDERED: Tubing IV Secondary IV ONE (15:42)
[2019-11-14] MEDS: Phospha 250 Neutral tab GT SCH (17:11)
--- NOTE | 2019-11-14 18:03 | Nephrology Progress Note ---
Assessment/Plan Plan # Hypokalemia #Respiratory failure s/p trach # Seizure. # sepsis due to UTI #possible peneumonia #h/o anoxic brain injury #functional quadroplegia # Mobitz 1second-degree AV block and intermittent AV dissociation -20 meq of kcl IV - 40 meq of KCL PO - zulay nAK TID - replete mag sulfate IV - continue 1/2NS + kcl 20 meq at 75cc/hr - continue TF - continue abx per ID - on dopamine drip- maintain MAP > 65 - monitor lytes - daily BMP - check urine potassium Subjective ROS Limited/Unobtainable: Yes Subjective remains in ICU K, mag and phos low today repleted Objective Objective Last 24 Hour Vital Signs Date Time Temp Pulse Resp B/P (MAP) Pulse Ox O2 Delivery O2 Flow Rate FiO2 11/14/19 17:30 59 18 114/68 (83) 98 11/14/19 17:19 82/61 11/14/19 17:00 75 18 82/61 (68) 97 11/14/19 17:00 82/61 11/14/19 16:55 73 19 40 11/14/19 16:30 55 18 92/40 (57) 96 11/14/19 16:00 Mechanical Ventilator 11/14/19 16:00 111/46 11/14/19 16:00 53 11/14/19 16:00 98.9 66 18 114/56 (75) 99 11/14/19 15:30 74 19 123/51 (75) 98 11/14/19 15:00 73 18 140/53 (82) 98 11/14/19 15:00 140/53 11/14/19 14:50 79 18 40 11/14/19 14:30 82 18 148/52 (84) 98 11/14/19 14:00 143/57 11/14/19 14:00 63 18 143/57 (85) 97 11/14/19 13:30 78 18 148/70 (96) 96 11/14/19 13:00 71 18 145/49 (81) 95 11/14/19 13:00 124/53 11/14/19 12:45 76 18 40 11/14/19 12:30 99.2 85 18 124/53 (76) 97 11/14/19 12:00 69 18 124/53 (76) 98 11/14/19 12:00 66 11/14/19 12:00 134/46 11/14/19 12:00 Mechanical Ventilator 11/14/19 12:00 40 11/14/19 11:30 96 18 161/63 (95) 97 11/14/19 11:23 83/44 11/14/19 11:04 88 22 40 11/14/19 11:00 60 18 83/44 (57) 96 11/14/19 10:30 55 18 100/42 (61) 96 11/14/19 10:00 54 18 107/60 (76) 97 11/14/19 10:00 107/60 11/14/19 09:30 91 18 126/66 (86) 96 11/14/19 09:21 80 19 40 11/14/19 09:00 150/62 11/14/19 09:00 56 18 150/62 (91) 96 11/14/19 08:30 58 18 133/62 (85) 94 11/14/19 08:00 Mechanical Ventilator 11/14/19 08:00 58 11/14/19 08:00 138/55 11/14/19 08:00 99.1 54 18 138/55 (82) 94 11/14/19 08:00 40 11/14/19 07:30 55 18 132/58 (82) 94 11/14/19 07:08 66 18 40 11/14/19 07:00 132/58 11/14/19 07:00 70 18 125/57 (79) 96 11/14/19 06:30 75 19 143/66 (91) 96 11/14/19 06:00 71 21 146/60 (88) 98 11/14/19 06:00 146/60 11/14/19 05:30 84 21 142/50 (80) 97 11/14/19 05:14 77 19 40 11/14/19 05:00 64 18 136/47 (76) 95 11/14/19 04:50 131/46 11/14/19 04:30 61 20 131/46 (74) 97 11/14/19 04:00 40 11/14/19 04:00 70 11/14/19 04:00 Mechanical Ventilator 11/14/19 04:00 98.8 62 19 117/94 (102) 95 3/12/20 04:00 131/46 11/14/19 03:30 64 20 119/44 (69) 95 11/14/19 03:00 66 22 120/60 (80) 100 11/14/19 03:00 119/44 11/14/19 02:57 71 20 40 11/14/19 02:30 95 19 115/57 (76) 97 11/14/19 02:00 101 20 93/68 (76) 97 11/14/19 02:00 115/57 11/14/19 01:30 103 22 109/62 (78) 97 11/14/19 01:10 102 19 40 11/14/19 01:00 103 21 103/69 (80) 97 11/14/19 01:00 109/62 11/14/19 00:30 60 18 116/44 (68) 95 11/14/19 00:00 40 11/14/19 00:00 Mechanical Ventilator 11/14/19 00:00 116/44 11/14/19 00:00 83 11/14/19 00:00 99.0 68 18 135/68 (90) 99 11/13/19 23:37 120/82 11/13/19 23:30 52/39 11/13/19 23:30 76 23 52/39 (43) 96 11/13/19 23:15 100 21 40 11/13/19 23:00 74 18 96/76 (83) 97 11/13/19 23:00 52/39 11/13/19 22:30 73 18 87/59 (68) 97 11/13/19 22:00 82/49 11/13/19 22:00 86 21 87/59 (68) 96 11/13/19 21:30 75 19 144/60 (88) 97 11/13/19 21:02 74 18 40 11/13/19 21:00 74 18 136/66 (89) 97 11/13/19 20:58 136/66 11/13/19 20:30 70 18 141/55 (83) 97 11/13/19 20:00 40 11/13/19 20:00 142/69 11/13/19 20:00 98.6 64 18 142/69 (93) 96 11/13/19 20:00 Mechanical Ventilator 11/13/19 19:30 60 18 153/56 (88) 96 11/13/19 19:00 60 18 149/64 (92) 96 11/13/19 19:00 56 18 40 11/13/19 18:30 76 18 144/81 (102) 97 Intake and Output 11/13/19 11/14/19 19:00 07:00 Intake Total 1686.33469 ml 1608.45814 ml Output Total 2010 ml 1733 ml Balance -323.49166 ml -124.55728 ml Intake Free Water 100 ml 200 ml IV Total 1526.69880 ml 1098.32913 ml Tube Feeding 60 ml 310 ml Output Urine Total 2010 ml 1730 ml Stool Total 3 ml Laboratory Tests 11/13/19 18:05: Urine Creatinine 11.2L, Urine Potassium Timed 14 11/14/19 03:00: White Blood Count 10.3, Red Blood Count 3.69L, Hemoglobin 12.9, Hematocrit 35.0L , Mean Corpuscular Volume 95, Mean Corpuscular Hemoglobin 34.9H, Mean Corpuscular Hemoglobin Concent 36.7H, Red Cell Distribution Width 13.1, Platelet Count 214, Mean Platelet Volume 8.6, Neutrophils (%) (Auto) 71.6, Lymphocytes (%) (Auto) 11.9L, Monocytes (%) (Auto) 11.1H, Eosinophils (%) (Auto ) 4.7H, Basophils (%) (Auto) 0.8, Sodium Level 138, Potassium Level 3.1L, Chloride Level 104, Carbon Dioxide Level 25, Anion Gap 9, Blood Urea Nitrogen 7 , Creatinine 0.5L, Estimat Glomerular Filtration Rate > 60, Glucose Level 147H, Calcium Level 9.4, Phosphorus Level 1.6L, Magnesium Level 1.6L Height (Feet): 5 Height (Inches): 3.00 Weight (Pounds): 114 Objective General Appearance: no apparent distress, other - on vent- trach and peg Lines, tubes and drains: peripheral HEENT: normocephalic, atraumatic Neck: supple Respiratory/Chest: lungs clear Cardiovascular/Chest: normal peripheral pulses, normal rate, regular rhythm Abdomen: soft Extremities: normal range of motion, normal inspection, non-pitting Neurologic: alert Bear Nice M.D. Nov 14, 2019 18:02
--- NOTE | 2019-11-14 19:29 | Surgery Progress Note ---
Surgery Progress Note Subjective Additional Comments No acute events. Labs noted. Objective Last 24 Hour Vital Signs Date Time Temp Pulse Resp B/P (MAP) Pulse Ox O2 Delivery O2 Flow Rate FiO2 11/14/19 18:57 78 22 40 11/14/19 18:30 50 18 113/45 (67) 99 11/14/19 18:00 55 18 118/50 (72) 99 11/14/19 17:30 59 18 114/68 (83) 98 11/14/19 17:19 82/61 11/14/19 17:00 75 18 82/61 (68) 97 11/14/19 17:00 82/61 11/14/19 16:55 73 19 40 11/14/19 16:30 55 18 92/40 (57) 96 11/14/19 16:00 Mechanical Ventilator 11/14/19 16:00 111/46 11/14/19 16:00 53 11/14/19 16:00 98.9 66 18 114/56 (75) 99 11/14/19 15:30 74 19 123/51 (75) 98 11/14/19 15:00 73 18 140/53 (82) 98 11/14/19 15:00 140/53 11/14/19 14:50 79 18 40 11/14/19 14:30 82 18 148/52 (84) 98 11/14/19 14:00 143/57 11/14/19 14:00 63 18 143/57 (85) 97 11/14/19 13:30 78 18 148/70 (96) 96 11/14/19 13:00 71 18 145/49 (81) 95 11/14/19 13:00 124/53 11/14/19 12:45 76 18 40 11/14/19 12:30 99.2 85 18 124/53 (76) 97 11/14/19 12:00 69 18 124/53 (76) 98 11/14/19 12:00 66 11/14/19 12:00 134/46 11/14/19 12:00 Mechanical Ventilator 11/14/19 12:00 40 11/14/19 11:30 96 18 161/63 (95) 97 11/14/19 11:23 83/44 11/14/19 11:04 88 22 40 11/14/19 11:00 60 18 83/44 (57) 96 11/14/19 10:30 55 18 100/42 (61) 96 11/14/19 10:00 54 18 107/60 (76) 97 11/14/19 10:00 107/60 11/14/19 09:30 91 18 126/66 (86) 96 11/14/19 09:21 80 19 40 11/14/19 09:00 150/62 11/14/19 09:00 56 18 150/62 (91) 96 11/14/19 08:30 58 18 133/62 (85) 94 11/14/19 08:00 Mechanical Ventilator 11/14/19 08:00 58 11/14/19 08:00 138/55 11/14/19 08:00 99.1 54 18 138/55 (82) 94 11/14/19 08:00 40 11/14/19 07:30 55 18 132/58 (82) 94 11/14/19 07:08 66 18 40 11/14/19 07:00 132/58 11/14/19 07:00 70 18 125/57 (79) 96 11/14/19 06:30 75 19 143/66 (91) 96 11/14/19 06:00 71 21 146/60 (88) 98 11/14/19 06:00 146/60 11/14/19 05:30 84 21 142/50 (80) 97 11/14/19 05:14 77 19 40 11/14/19 05:00 64 18 136/47 (76) 95 11/14/19 04:50 131/46 11/14/19 04:30 61 20 131/46 (74) 97 11/14/19 04:00 40 11/14/19 04:00 70 11/14/19 04:00 Mechanical Ventilator 11/14/19 04:00 98.8 62 19 117/94 (102) 95 11/14/19 04:00 131/46 11/14/19 03:30 64 20 119/44 (69) 95 11/14/19 03:00 66 22 120/60 (80) 100 11/14/19 03:00 119/44 11/14/19 02:57 71 20 40 11/14/19 02:30 95 19 115/57 (76) 97 11/14/19 02:00 101 20 93/68 (76) 97 11/14/19 02:00 115/57 11/14/19 01:30 103 22 109/62 (78) 97 11/14/19 01:10 102 19 40 11/14/19 01:00 103 21 103/69 (80) 97 11/14/19 01:00 109/62 11/14/19 00:30 60 18 116/44 (68) 95 11/14/19 00:00 40 11/14/19 00:00 Mechanical Ventilator 11/14/19 00:00 116/44 11/14/19 00:00 83 11/14/19 00:00 99.0 68 18 135/68 (90) 99 11/13/19 23:37 120/82 11/13/19 23:30 52/39 11/13/19 23:30 76 23 52/39 (43) 96 11/13/19 23:15 100 21 40 11/13/19 23:00 74 18 96/76 (83) 97 11/13/19 23:00 52/39 11/13/19 22:30 73 18 87/59 (68) 97 11/13/19 22:00 82/49 11/13/19 22:00 86 21 87/59 (68) 96 11/13/19 21:30 75 19 144/60 (88) 97 11/13/19 21:02 74 18 40 11/13/19 21:00 74 18 136/66 (89) 97 11/13/19 20:58 136/66 11/13/19 20:30 70 18 141/55 (83) 97 11/13/19 20:00 40 11/13/19 20:00 142/69 11/13/19 20:00 98.6 64 18 142/69 (93) 96 11/13/19 20:00 Mechanical Ventilator 11/13/19 19:30 60 18 153/56 (88) 96 I&O Intake and Output 11/13/19 11/14/19 19:00 07:00 Intake Total 1686.82400 ml 1608.71502 ml Output Total 2010 ml 1733 ml Balance -323.20349 ml -124.60818 ml Intake Free Water 100 ml 200 ml IV Total 1526.84570 ml 1098.32324 ml Tube Feeding 60 ml 310 ml Output Urine Total 2010 ml 1730 ml Stool Total 3 ml Dressing: saturated Wound: other Drains: other Cardiovascular: RSR Respiratory: decreased breath sounds Abdomen: soft, present bowel sounds Extremities: no cyanosis Laboratory Tests Test 11/14/19 03:00 White Blood Count 10.3 K/UL (4.8-10.8) Red Blood Count 3.69 M/UL (4.20-5.40) L Hemoglobin 12.9 G/DL (12.0-16.0) Hematocrit 35.0 % (37.0-47.0) L Mean Corpuscular Volume 95 FL (80-99) Mean Corpuscular Hemoglobin 34.9 PG (27.0-31.0) H Mean Corpuscular Hemoglobin Concent 36.7 G/DL (32.0-36.0) H Red Cell Distribution Width 13.1 % (11.6-14.8) Platelet Count 214 K/UL (150-450) Mean Platelet Volume 8.6 FL (6.5-10.1) Neutrophils (%) (Auto) 71.6 % (45.0-75.0) Lymphocytes (%) (Auto) 11.9 % (20.0-45.0) L Monocytes (%) (Auto) 11.1 % (1.0-10.0) H Eosinophils (%) (Auto) 4.7 % (0.0-3.0) H Basophils (%) (Auto) 0.8 % (0.0-2.0) Sodium Level 138 MMOL/L (136-145) Potassium Level 3.1 MMOL/L (3.5-5.1) L Chloride Level 104 MMOL/L (98-107) Carbon Dioxide Level 25 MMOL/L (21-32) Anion Gap 9 mmol/L (5-15) Blood Urea Nitrogen 7 mg/dL (7-18) Creatinine 0.5 MG/DL (0.55-1.30) L Estimat Glomerular Filtration Rate > 60 mL/min (>60) Glucose Level 147 MG/DL (74-106) H Calcium Level 9.4 MG/DL (8.5-10.1) Phosphorus Level 1.6 MG/DL (2.5-4.9) L Magnesium Level 1.6 MG/DL (1.8-2.4) L Plan Problems: (1) Decubitus skin ulcer Assessment & Plan: Pt presented on admission with resolving pressure injury R side to posterior aspect of neck. Base of wound is moist with pink epithelial. Mild odor noted (L)1.5cm x (W)6cm. Partial thickness stage 2 pressure injury in close proximity R side neck. Base of wound is moist and viable(L)0.7cm x (W) 0.8cm. Small amt serosanguineous exudate noted. Moist pink epithelial L side to posterior aspect of neck(L)5cm x (W)16.5cm. Within base of wound is a full thickness stage 3 pressure injury L side neck under tracheal collar. Base of wound is moist ,wan with macerated borders.(L)0.9cm x (W)2cm x (D)0.6cmSmall amt serous exudate noted. Mild odor noted. Erosion noted at GT site . Scattered areas of hyperpigmentation noted to R and L buttocks and both ischial tuberosities. Non-blanching erythema without induration noted to Sacrum. L heel Is boggy with an area of non-blanching erythema with delineated margins. R heel is soft but blanchable. Tx.Plan: Apply Zinc Oxide Paste 20% to Epithelial areas around neck Twice Daily.Place Abd pads under tracheal collar . Cleanse Wound L side of neck with Saline. Apply TheraHoney. Apply Zinc Oxide Paste periwound. Cover with Optifoam drsg Daily and prn. Apply Moisture Barrier Paste to sacrum. Cover with Optifoam drsg. Change every 3 days and prn. Apply Cavilon Skin Barrier to both heels. Cover each heel with Optifoam drsg. Change every 7 days and prn. APM/LUIGI Mattress overlay. Reposition at least every 2 hours or as tolerated. Off- Load heels with pillow. (2) Recurrent seizures Assessment & Plan: As per neurology No injury identified Rx is written (3) Feeding by G-tube Assessment & Plan: DAILY ESTIMATED NEEDS: Needs based on Obese, critical care, wound healing 65.8kg abw 22-28 kcals/kg 7139-3640 total kcals 1.25-2 g protein/kg 82-131 g total protein 25-30 mL/kg 7741-4385 total fluid mLs NUTRITION DIAGNOSIS: 1) Swallowing difficulty R/T respiratory status as evidenced by pt trach-vent dep, GT dep 2) Increased kcal/prot needs R/T wound healing as evidenced by pt admitted w/ multiple wounds including full thickness pressure injury at L side neck under tracheal collar and partial thickness pressure injurty in close proximity to R side neck CURRENT TF:TF HELD: Jevity 1.2 @ 75ml/hr x 18 hrs ENTERAL NUTRITION RECOMMENDATIONS: Glucerna 1.2 @ 70ml/hr x 20 hrs (TF HELD FOR DILANTIN AND SYNTHROID) to provide 1200ml, 1440kcal, 67g prot, 968ml free water * FEED W/ HEMODYNAMIC STABLITY -> rec TF change to Glucerna 1.2 (h/o DM) -> Initiate Glucerna 1.2 @ 20ml/hr x 6 hrs -> advance 10ml q 4-6 hrs as tolerated to goal rate -> HOLD TF 1 HR BEFORE AND AFTER DILANTIN BID AND SYNTHROID QD (AM Dilantin and Synthroid given at the same time) -> Water flush per MD/ HOB over 30 degrees ADDITIONAL RECOMMENDATIONS: * Calibrated bed scale weights for accurate CBW (w/ added P200 mattress) * Wound healing: Continue Vit C/ add Contreras 1pkt BID via PEG * Monitor HD stability: on Dopamine * TF to run max 20 hrs w/ Dilantin BID + Synthroid QD (See above TF rec) * Monitor lytes daily w/ TF, replete as needed . (4) G-tube site cellulitis Assessment & Plan: as above (5) Abnormal LFTs Assessment & Plan: nondistended gallbladder with gallstones. Apparent gallbladder wall thickening, probably artifact of under distention but raises the possibility of acute cholecystitis. Consider nuclear medicine hepatobiliary scan if there is high clinical suspicion Negative for dilated bile ducts Echogenic foci in the left renal sinus, could represent nonobstructive calculi within the be artifactual given lack of evidence of such on prior CT scan Incidental findings left lower pole renal cyst, dystrophic right right lobe liver calcification Note incomplete visualization of portions of the abdominal aorta Heath Martell Nov 14, 2019 19:29
[2019-11-14] MEDS ORDERED: Lidocaine 1% Plain 30 ml INJ PRN (19:45)
[2019-11-14] MEDS ORDERED: Heparin1,000 units/500ml Premix(Conc:2 units/ml) IV PRN (19:45)
[2019-11-14] MEDS ORDERED: Dyna-Hex 2% Top Sol 2oz TOPIC SCH (20:00)
[2019-11-14] MEDS: Dyna-Hex 2% Top Sol 2oz TOPIC SCH (20:58)
--- NOTE | 2019-11-14 21:45 | Progress Note ---
DATE: 11/14/2019 SUBJECTIVE: The patient's condition remains critical. Prognosis guarded. She is in the intensive care unit. The patient is on dopamine support for low blood pressure with efforts to taper ongoing. The patient also has had cardiac monitoring. She continues to have episodes of second-degree AV block. PHYSICAL EXAMINATION: LUNGS: Bilateral breath sounds. HEART: Regular rhythm. Slow rate. Normal S1, S2. ABDOMEN: Soft. EXTREMITIES: No edema. LABORATORY DATA: White count 10 and hemoglobin 13. Magnesium 1.6. Phosphorus 1.6. Potassium 3.1, BUN 7, and creatinine 0.5. Dilantin level pending. IMPRESSION: 1. Resolved Dilantin toxicity. 2. Bradyarrhythmia. 3. Second-degree AV block. 4. Hypokalemia. 5. Hypophosphatemia. 6. Hypomagnesemia. 7. Shock due to sepsis. 8. Hypovolemia. 9. Euthyroid state. PLAN: 1. Recheck laboratory studies. 2. Replacement of all electrolytes. 3. Volume support. 4. Pressor taper. 5. Backup external pacemaker. 6. No current indication for permanent pacemaker. Eder Tenorio M.D. DR: GILDA JOB#: [id number] CC:
[2019-11-15] VITALS (78 sets, daily range): BP systolic 61–146; BP diastolic 34–99
[2019-11-15] MEDS: 1/2NS w/KCl 20mEq 1000ml 1,000 ML IV SCH ×3 (04:55→20:00)
[2019-11-15] MEDS: Phenytoin Susp 100mg/4ml GT SCH ×2 (05:51→18:14)
[2019-11-15] MEDS: NovoLOG Insulin Flexpen SUBQ SCH ×4 (06:14→21:00)
[2019-11-15] MEDS: DOPamine 400mg/250ml 250 ML IV SCH ×4 (06:24→21:10)
[2019-11-15 07:29] LABS: BASOPHILS % (AUTO) 1.1 % (0.0-2.0); EOSINOPHILS % (AUTO) 10.6 % (0.0-3.0); HEMATOCRIT 36.5 % (37.0-47.0); HEMOGLOBIN 12.8 G/DL (12.0-16.0); LYMPHOCYTES % (AUTO) 17.7 % (20.0-45.0); MEAN CORPUSCULAR VOLUME 98 FL (80-99); MONOCYTES % (AUTO) 11.4 % (1.0-10.0); NEUTROPHILS % (AUTO) 59.3 % (45.0-75.0); PLATELET COUNT 199 K/UL (150-450); RED BLOOD COUNT 3.73 M/UL (4.20-5.40); RED CELL DISTRIBUTION WIDTH 13.5 % (11.6-14.8); WHITE BLOOD COUNT 8.5 K/UL (4.8-10.8)
[2019-11-15 08:02] LABS: ANION GAP 8 mmol/L (5-15); BLOOD UREA NITROGEN 9 mg/dL (7-18); CALCIUM 9.3 MG/DL (8.5-10.1); CARBON DIOXIDE 25 MMOL/L (21-32); CHLORIDE 105 MMOL/L (98-107); CREATININE 0.5 MG/DL (0.55-1.30); POTASSIUM 4.3 MMOL/L (3.5-5.1); SODIUM 138 MMOL/L (136-145)
--- NOTE | 2019-11-15 08:59 | General Progress Note ---
Assessment/Plan Problem List: (1) Urinary tract infection ICD Codes: N39.0 - Urinary tract infection, site not specified SNOMED: 56601417 (2) Recurrent seizures ICD Codes: G40.909 - Epilepsy, unspecified, not intractable, without status epilepticus SNOMED: 17810558, 10929475 (3) Chronic respiratory failure ICD Codes: J96.10 - Chronic respiratory failure, unspecified whether with hypoxia or hypercapnia SNOMED: 41522599 (4) Anoxic brain damage syndrome ICD Codes: G93.1 - Anoxic brain damage, not elsewhere classified SNOMED: 874449400 (5) Feeding by G-tube ICD Codes: Z93.1 - Gastrostomy status SNOMED: 735056267, 077273060 (6) Seizure disorder ICD Codes: G40.909 - Epilepsy, unspecified, not intractable, without status epilepticus SNOMED: 082726883 (7) Functional paraplegia (8) Anemia ICD Codes: D64.9 - Anemia, unspecified SNOMED: 480287668 Status: unchanged Assessment/Plan: vent abx cbc bmp am Subjective Constitutional: Reports: weakness Allergies: Coded Allergies: PEANUT (Verified Allergy, Unknown, 09/22/16) Uncoded Allergies: PEANUTS (Allergy, Unknown, 02/04/19) All Systems: reviewed and negative except above Subjective trach vent altered Objective Last 24 Hour Vital Signs Date Time Temp Pulse Resp B/P (MAP) Pulse Ox O2 Delivery O2 Flow Rate FiO2 11/15/19 08:00 52 11/15/19 07:00 53 18 106/42 (63) 94 11/15/19 06:53 53 18 40 11/15/19 06:45 64 18 108/48 (68) 96 11/15/19 06:30 58 17 127/41 (69) 98 11/15/19 06:24 126/56 11/15/19 06:15 95 20 61/41 (48) 97 11/15/19 06:00 94 24 128/69 (88) 87 11/15/19 06:00 128/69 11/15/19 05:45 55 18 129/61 (83) 96 11/15/19 05:30 56 17 137/52 (80) 97 11/15/19 05:15 54 19 134/53 (80) 98 3/13/20 05:00 126/80 11/15/19 05:00 57 19 40 11/15/19 05:00 66 21 126/80 (95) 95 11/15/19 04:45 46 18 117/52 (73) 96 11/15/19 04:30 59 18 125/43 (70) 98 11/15/19 04:15 73 22 108/56 (73) 99 11/15/19 04:00 Mechanical Ventilator 11/15/19 04:00 51 11/15/19 04:00 99.0 68 18 109/60 (76) 95 11/15/19 04:00 117/52 11/15/19 04:00 40 11/15/19 03:45 55 17 102/49 (66) 94 11/15/19 03:30 53 18 88/67 (74) 95 11/15/19 03:15 49 17 119/43 (68) 95 11/15/19 03:10 65 18 40 11/15/19 03:00 54 17 119/42 (67) 96 11/15/19 03:00 119/42 11/15/19 02:45 59 19 104/46 (65) 97 11/15/19 02:30 59 17 114/44 (67) 97 11/15/19 02:15 68 21 112/67 (82) 97 11/15/19 02:00 139 17 115/56 (75) 95 11/15/19 02:00 115/56 11/15/19 01:45 141 14 118/61 (80) 96 11/15/19 01:30 64 21 119/58 (78) 96 11/15/19 01:15 56 18 120/75 (90) 97 11/15/19 01:00 55 12 114/85 (95) 94 11/15/19 01:00 114/85 11/15/19 00:51 59 18 40 11/15/19 00:45 47 17 101/40 (60) 97 11/15/19 00:30 60 14 107/40 (62) 96 11/15/19 00:15 55 17 118/44 (68) 97 11/15/19 00:00 98.2 45 18 128/60 (82) 98 11/15/19 00:00 Mechanical Ventilator 11/15/19 00:00 57 11/15/19 00:00 40 11/15/19 00:00 128/60 11/15/19 00:00 128/60 11/14/19 23:45 90 19 63/35 (44) 97 11/14/19 23:30 55 16 137/41 (73) 97 11/14/19 23:15 48 18 118/46 (70) 98 11/14/19 23:00 54 18 126/52 (76) 99 11/14/19 23:00 126/52 11/14/19 22:45 53 20 130/64 (86) 100 11/14/19 22:37 62 19 40 11/14/19 22:30 70 21 126/51 (76) 98 11/14/19 22:15 74 22 128/54 (78) 99 11/14/19 22:00 107/48 11/14/19 22:00 57 17 107/46 (66) 98 11/14/19 21:45 58 19 117/55 (75) 98 11/14/19 21:30 65 23 124/55 (78) 100 11/14/19 21:24 67 18 40 11/14/19 21:15 66 19 118/63 (81) 98 66 11/14/19 21:00 127/60 11/14/19 21:00 71 17 127/60 (82) 98 71 11/14/19 20:45 57 16 124/48 (73) 96 57 11/14/19 20:30 56 18 118/45 (69) 97 56 11/14/19 20:15 65 21 137/59 (85) 97 11/14/19 20:00 55 11/14/19 20:00 40 11/14/19 20:00 137/59 11/14/19 20:00 59 19 112/49 (70) 95 11/14/19 20:00 Mechanical Ventilator 11/14/19 19:45 54 16 115/51 (72) 97 11/14/19 19:30 98.2 50 18 120/49 (72) 98 11/14/19 19:00 73 18 128/56 (80) 99 11/14/19 18:57 78 22 40 11/14/19 18:30 50 18 113/45 (67) 99 11/14/19 18:00 55 18 118/50 (72) 99 11/14/19 17:30 59 18 114/68 (83) 98 11/14/19 17:19 82/61 11/14/19 17:00 75 18 82/61 (68) 97 11/14/19 17:00 82/61 11/14/19 16:55 73 19 40 11/14/19 16:30 55 18 92/40 (57) 96 11/14/19 16:00 Mechanical Ventilator 11/14/19 16:00 111/46 11/14/19 16:00 53 11/14/19 16:00 98.9 66 18 114/56 (75) 99 11/14/19 15:30 74 19 123/51 (75) 98 11/14/19 15:00 73 18 140/53 (82) 98 11/14/19 15:00 140/53 11/14/19 14:50 79 18 40 11/14/19 14:30 82 18 148/52 (84) 98 11/14/19 14:00 143/57 11/14/19 14:00 63 18 143/57 (85) 97 11/14/19 13:30 78 18 148/70 (96) 96 11/14/19 13:00 71 18 145/49 (81) 95 11/14/19 13:00 124/53 11/14/19 12:45 76 18 40 11/14/19 12:30 99.2 85 18 124/53 (76) 97 11/14/19 12:00 69 18 124/53 (76) 98 11/14/19 12:00 66 11/14/19 12:00 134/46 11/14/19 12:00 Mechanical Ventilator 11/14/19 12:00 40 11/14/19 11:30 96 18 161/63 (95) 97 11/14/19 11:23 83/44 11/14/19 11:04 88 22 40 11/14/19 11:00 60 18 83/44 (57) 96 11/14/19 10:30 55 18 100/42 (61) 96 11/14/19 10:00 54 18 107/60 (76) 97 11/14/19 10:00 107/60 11/14/19 09:30 91 18 126/66 (86) 96 11/14/19 09:21 80 19 40 11/14/19 09:00 150/62 11/14/19 09:00 56 18 150/62 (91) 96 Intake and Output 11/14/19 11/15/19 19:00 07:00 Intake Total 2596.724 ml 2113.846 ml Output Total 1365 ml 930 ml Balance 1231.724 ml 1183.846 ml Intake Free Water 50 ml IV Total 2076.724 ml 1453.846 ml Tube Feeding 440 ml 660 ml Other 30 ml Output Urine Total 1365 ml 930 ml # Bowel Movements 2 Laboratory Tests 11/15/19 05:17: White Blood Count 8.5, Red Blood Count 3.73L, Hemoglobin 12.8, Hematocrit 36.5L , Mean Corpuscular Volume 98, Mean Corpuscular Hemoglobin 34.2H, Mean Corpuscular Hemoglobin Concent 34.9, Red Cell Distribution Width 13.5, Platelet Count 199, Mean Platelet Volume 8.0, Neutrophils (%) (Auto) 59.3, Lymphocytes (% ) (Auto) 17.7L, Monocytes (%) (Auto) 11.4H, Eosinophils (%) (Auto) 10.6H, Basophils (%) (Auto) 1.1, Sodium Level 138, Potassium Level 4.3, Chloride Level 105, Carbon Dioxide Level 25, Anion Gap 8, Blood Urea Nitrogen 9, Creatinine 0.5L, Estimat Glomerular Filtration Rate > 60, Glucose Level 117H, Calcium Level 9.3, Phosphorus Level 2.6, Magnesium Level 1.9, Troponin I 0.000, Pro-B- Type Natriuretic Peptide 654H, Phenytoin (Dilantin) Level 13.6 Height (Feet): 5 Height (Inches): 3.00 Weight (Pounds): 190 General Appearance: lethargic EENT: normal ENT inspection Neck: normal alignment Cardiovascular: normal peripheral pulses, normal rate, regular rhythm Respiratory/Chest: chest wall non-tender, lungs clear, normal breath sounds Abdomen: normal bowel sounds, non tender, soft Extremities: normal inspection Edema: no edema noted Arm (L), no edema noted Arm (R), no edema noted Leg (L), no edema noted Leg (R), no edema noted Pedal (L), no edema noted Pedal (R), no edema noted Generalized Neurologic: motor weakness Skin: normal pigmentation, warm/dry Juaquin Ramos DO Nov 15, 2019 08:59
--- NOTE | 2019-11-15 09:39 | Pulmonology Progress Note ---
Assessment/Plan Assessment/Plan IMPRESSION: 1. Supratherapeutic Dilantin level. 2. Questionable seizure. 3. UTI. 4. Chronic respiratory failure. 5. Septic shock. 6. Bradycardia DISCUSSION: Seen by cardiology and ID. Continue vent. Continue present medications care. I will follow carefully. May need PPM Will discuss with cardiology Grabiel Hogan M.D. Subjective Interval Events: Remains bradycardic; cardiology following Constitutional: Reports: no symptoms HEENT: Repors: no symptoms Respiratory: Reports: no symptoms Cardiovascular: Reports: no symptoms Allergies: Coded Allergies: PEANUT (Verified Allergy, Unknown, 09/22/16) Uncoded Allergies: PEANUTS (Allergy, Unknown, 02/04/19) Objective Last 24 Hour Vital Signs Date Time Temp Pulse Resp B/P (MAP) Pulse Ox O2 Delivery O2 Flow Rate FiO2 11/15/19 09:00 60 18 40 11/15/19 08:00 52 11/15/19 07:00 53 18 106/42 (63) 94 11/15/19 06:53 53 18 40 11/15/19 06:45 64 18 108/48 (68) 96 11/15/19 06:30 58 17 127/41 (69) 98 11/15/19 06:24 126/56 11/15/19 06:15 95 20 61/41 (48) 97 11/15/19 06:00 94 24 128/69 (88) 87 11/15/19 06:00 128/69 11/15/19 05:45 55 18 129/61 (83) 96 11/15/19 05:30 56 17 137/52 (80) 97 11/15/19 05:15 54 19 134/53 (80) 98 11/15/19 05:00 126/80 11/15/19 05:00 57 19 40 11/15/19 05:00 66 21 126/80 (95) 95 11/15/19 04:45 46 18 117/52 (73) 96 11/15/19 04:30 59 18 125/43 (70) 98 11/15/19 04:15 73 22 108/56 (73) 99 11/15/19 04:00 Mechanical Ventilator 11/15/19 04:00 51 11/15/19 04:00 99.0 68 18 109/60 (76) 95 11/15/19 04:00 117/52 11/15/19 04:00 40 11/15/19 03:45 55 17 102/49 (66) 94 11/15/19 03:30 53 18 88/67 (74) 95 11/15/19 03:15 49 17 119/43 (68) 95 11/15/19 03:10 65 18 40 11/15/19 03:00 54 17 119/42 (67) 96 11/15/19 03:00 119/42 11/15/19 02:45 59 19 104/46 (65) 97 11/15/19 02:30 59 17 114/44 (67) 97 11/15/19 02:15 68 21 112/67 (82) 97 11/15/19 02:00 139 17 115/56 (75) 95 11/15/19 02:00 115/56 11/15/19 01:45 141 14 118/61 (80) 96 11/15/19 01:30 64 21 119/58 (78) 96 11/15/19 01:15 56 18 120/75 (90) 97 11/15/19 01:00 55 12 114/85 (95) 94 11/15/19 01:00 114/85 11/15/19 00:51 59 18 40 11/15/19 00:45 47 17 101/40 (60) 97 11/15/19 00:30 60 14 107/40 (62) 96 11/15/19 00:15 55 17 118/44 (68) 97 11/15/19 00:00 98.2 45 18 128/60 (82) 98 11/15/19 00:00 Mechanical Ventilator 11/15/19 00:00 57 11/15/19 00:00 40 11/15/19 00:00 128/60 11/15/19 00:00 128/60 11/14/19 23:45 90 19 63/35 (44) 97 11/14/19 23:30 55 16 137/41 (73) 97 11/14/19 23:15 48 18 118/46 (70) 98 3/12/20 23:00 54 18 126/52 (76) 99 11/14/19 23:00 126/52 11/14/19 22:45 53 20 130/64 (86) 100 11/14/19 22:37 62 19 40 11/14/19 22:30 70 21 126/51 (76) 98 11/14/19 22:15 74 22 128/54 (78) 99 11/14/19 22:00 107/48 11/14/19 22:00 57 17 107/46 (66) 98 11/14/19 21:45 58 19 117/55 (75) 98 11/14/19 21:30 65 23 124/55 (78) 100 11/14/19 21:24 67 18 40 11/14/19 21:15 66 19 118/63 (81) 98 66 11/14/19 21:00 127/60 11/14/19 21:00 71 17 127/60 (82) 98 71 11/14/19 20:45 57 16 124/48 (73) 96 57 11/14/19 20:30 56 18 118/45 (69) 97 56 11/14/19 20:15 65 21 137/59 (85) 97 11/14/19 20:00 55 11/14/19 20:00 40 11/14/19 20:00 137/59 11/14/19 20:00 59 19 112/49 (70) 95 11/14/19 20:00 Mechanical Ventilator 11/14/19 19:45 54 16 115/51 (72) 97 11/14/19 19:30 98.2 50 18 120/49 (72) 98 11/14/19 19:00 73 18 128/56 (80) 99 11/14/19 18:57 78 22 40 11/14/19 18:30 50 18 113/45 (67) 99 11/14/19 18:00 55 18 118/50 (72) 99 11/14/19 17:30 59 18 114/68 (83) 98 11/14/19 17:19 82/61 11/14/19 17:00 75 18 82/61 (68) 97 11/14/19 17:00 82/61 11/14/19 16:55 73 19 40 11/14/19 16:30 55 18 92/40 (57) 96 11/14/19 16:00 Mechanical Ventilator 11/14/19 16:00 111/46 11/14/19 16:00 53 11/14/19 16:00 98.9 66 18 114/56 (75) 99 11/14/19 15:30 74 19 123/51 (75) 98 11/14/19 15:00 73 18 140/53 (82) 98 11/14/19 15:00 140/53 11/14/19 14:50 79 18 40 11/14/19 14:30 82 18 148/52 (84) 98 11/14/19 14:00 143/57 11/14/19 14:00 63 18 143/57 (85) 97 11/14/19 13:30 78 18 148/70 (96) 96 11/14/19 13:00 71 18 145/49 (81) 95 11/14/19 13:00 124/53 11/14/19 12:45 76 18 40 11/14/19 12:30 99.2 85 18 124/53 (76) 97 11/14/19 12:00 69 18 124/53 (76) 98 11/14/19 12:00 66 11/14/19 12:00 134/46 11/14/19 12:00 Mechanical Ventilator 11/14/19 12:00 40 11/14/19 11:30 96 18 161/63 (95) 97 11/14/19 11:23 83/44 11/14/19 11:04 88 22 40 11/14/19 11:00 60 18 83/44 (57) 96 11/14/19 10:30 55 18 100/42 (61) 96 11/14/19 10:00 54 18 107/60 (76) 97 11/14/19 10:00 107/60 Intake and Output 11/14/19 11/15/19 19:00 07:00 Intake Total 2596.724 ml 2113.846 ml Output Total 1365 ml 930 ml Balance 1231.724 ml 1183.846 ml Intake Free Water 50 ml IV Total 2076.724 ml 1453.846 ml Tube Feeding 440 ml 660 ml Other 30 ml Output Urine Total 1365 ml 930 ml # Bowel Movements 2 General Appearance: no acute distress HEENT: normocephalic Respiratory/Chest: chest wall non-tender Cardiovascular: normal peripheral pulses Microbiology Date/Time Source Procedure Growth Status 11/13/19 19:35 Blood Blood Culture - Preliminary NO GROWTH AFTER 24 HOURS Resulted 11/13/19 19:20 Blood Blood Culture - Preliminary NO GROWTH AFTER 24 HOURS Resulted 11/12/19 20:00 Stool Clostridium difficile Toxin Assay - Final Complete Laboratory Tests 11/15/19 05:17: White Blood Count 8.5, Red Blood Count 3.73L, Hemoglobin 12.8, Hematocrit 36.5L , Mean Corpuscular Volume 98, Mean Corpuscular Hemoglobin 34.2H, Mean Corpuscular Hemoglobin Concent 34.9, Red Cell Distribution Width 13.5, Platelet Count 199, Mean Platelet Volume 8.0, Neutrophils (%) (Auto) 59.3, Lymphocytes (% ) (Auto) 17.7L, Monocytes (%) (Auto) 11.4H, Eosinophils (%) (Auto) 10.6H, Basophils (%) (Auto) 1.1, Sodium Level 138, Potassium Level 4.3, Chloride Level 105, Carbon Dioxide Level 25, Anion Gap 8, Blood Urea Nitrogen 9, Creatinine 0.5L, Estimat Glomerular Filtration Rate > 60, Glucose Level 117H, Calcium Level 9.3, Phosphorus Level 2.6, Magnesium Level 1.9, Troponin I 0.000, Pro-B- Type Natriuretic Peptide 654H, Phenytoin (Dilantin) Level 13.6 Current Medications Medications (Trade) Dose Ordered Sig/Boubacar Route PRN Reason Start Time Stop Time Status Last Admin Dose Admin Acetaminophen (Tylenol) 650 mg Q6H PRN GT Mild Pain/Temp > 100.5 11/11/19 14:30 12/11/19 14:29 Albuterol/ Ipratropium (Albuterol/ Ipratropium) 3 ml Q4H PRN HHN Shortness of Breath 11/11/19 14:30 11/16/19 14:29 Ascorbic Acid (Vitamin C) 500 mg DAILY NG 11/12/19 09:00 12/12/19 08:59 11/14/19 09:06 Chlorhexidine Gluconate ([place]-Hex 2%) 1 applic DAILY@1999 TOPIC 11/13/19 20:00 12/13/19 19:59 11/14/19 20:58 Dextrose (Dextrose 50%) 25 ml Q30M PRN IV Hypoglycemia 11/11/19 20:30 12/11/19 20:29 Dextrose (Dextrose 50%) 50 ml Q30M PRN IV Hypoglycemia 11/11/19 20:30 12/11/19 20:29 Docusate Sodium (Colace) 100 mg DAILY GT 11/12/19 09:00 12/12/19 08:59 11/14/19 09:06 Dopamine HCl/ Dextrose 250 ml @ 0 mls/hr Q24H IV 11/11/19 23:00 12/11/19 22:59 11/15/19 06:24 Ferrous Sulfate (Feosol) 300 mg THREE TIMES A DAY GT 11/11/19 18:00 12/11/19 17:59 11/14/19 17:12 Heparin Sodium/ Sodium Chloride (Heparin 1000 units/500ml Premix) 1,000 unit ONCE PRN IV PICC LINE 11/14/19 19:45 11/16/19 19:44 Insulin Aspart (NovoLOG) BEFORE MEALS AND HS SUBQ 11/11/19 22:00 12/11/19 21:59 Levothyroxine Sodium (Synthroid) 150 mcg DAILY@0630 GT 11/12/19 06:30 12/12/19 06:29 11/15/19 05:52 Lidocaine HCl (Xylocaine 1% 30ml) 30 ml ONCE PRN INJ PICC LINE 11/14/19 19:45 11/16/19 19:44 Meropenem 1 gm/ Sodium Chloride 100 ml @ 200 mls/hr Q8HR IVPB 11/13/19 20:00 11/18/19 19:59 11/15/19 05:51 Multivitamins (Multivitamins W/ Minerals 15ml Liquid) 15 ml DAILY GT 11/12/19 09:00 12/12/19 08:59 11/14/19 09:06 Ondansetron HCl (Zofran) 4 mg Q6H PRN IVP Nausea & Vomiting 11/12/19 03:00 12/12/19 02:59 11/12/19 03:48 Phenytoin (Dilantin) 250 mg Q12HR@0630,1830 GT 11/12/19 18:30 12/12/19 18:29 11/15/19 05:51 Phosphorus (Phospha 250 Neutral) 250 mg THREE TIMES A DAY GT 11/14/19 18:00 12/14/19 17:59 11/14/19 17:11 Sodium 1,000 ml @ 75 mls/hr [id number] IV 11/13/19 12:45 12/13/19 12:44 11/15/19 04:55 Vancomycin HCl (Vanco rx to dose) 1 ea DAILY PRN MISC Per rx protocol 11/12/19 13:30 12/12/19 13:29 Vancomycin HCl 750 mg/Sodium Chloride 275 ml @ 183.333 mls/hr Q24H IVPB 11/13/19 15:00 11/18/19 14:59 11/14/19 14:59 Zinc Oxide (Zinc Oxide) 1 applic BID TOPIC 11/12/19 10:00 12/12/19 09:59 11/14/19 17:12 Grabiel Hogan MD Nov 15, 2019 09:39
[2019-11-15] MEDS: Phospha 250 Neutral tab GT SCH ×3 (09:41→18:16)
[2019-11-15] MEDS: Ferrous Sulfate 300 MG/5 ML UDC GT SCH ×3 (09:41→18:15)
[2019-11-15] MEDS: Docusate 100mg/10ml Liq GT SCH (09:41)
[2019-11-15] MEDS: Ascorbic Acid 500mg tab NG SCH (09:42)
[2019-11-15] MEDS: Multivitamins W/Minerals 15 ML UDC GT SCH (09:42)
[2019-11-15] MEDS: Zinc Oxide Oint 2oz TOPIC SCH ×2 (09:42→18:15)
--- NOTE | 2019-11-15 11:07 | Nephrology Progress Note ---
Assessment/Plan Plan # Hypokalemia - improved #Respiratory failure s/p trach # Seizure. # sepsis due to UTI #possible peneumonia #h/o anoxic brain injury #functional quadroplegia # Mobitz 1second-degree AV block and intermittent AV dissociation - decrease 1/2NS + kcl 20 meq at 50cc/hr - zulay nAK TID for one more day - continue TF - continue abx per ID - on dopamine drip- maintain MAP > 65 - monitor lytes - daily BMP - check urine potassium Subjective Subjective remains in ICU labs reviewed On vent Objective Objective Last 24 Hour Vital Signs Date Time Temp Pulse Resp B/P (MAP) Pulse Ox O2 Delivery O2 Flow Rate FiO2 11/15/19 09:00 60 18 40 11/15/19 08:00 52 11/15/19 07:00 53 18 106/42 (63) 94 11/15/19 06:53 53 18 40 11/15/19 06:45 64 18 108/48 (68) 96 11/15/19 06:30 58 17 127/41 (69) 98 11/15/19 06:24 126/56 11/15/19 06:15 95 20 61/41 (48) 97 11/15/19 06:00 94 24 128/69 (88) 87 11/15/19 06:00 128/69 11/15/19 05:45 55 18 129/61 (83) 96 11/15/19 05:30 56 17 137/52 (80) 97 11/15/19 05:15 54 19 134/53 (80) 98 11/15/19 05:00 126/80 11/15/19 05:00 57 19 40 11/15/19 05:00 66 21 126/80 (95) 95 11/15/19 04:45 46 18 117/52 (73) 96 11/15/19 04:30 59 18 125/43 (70) 98 11/15/19 04:15 73 22 108/56 (73) 99 11/15/19 04:00 Mechanical Ventilator 11/15/19 04:00 51 11/15/19 04:00 99.0 68 18 109/60 (76) 95 11/15/19 04:00 117/52 11/15/19 04:00 40 11/15/19 03:45 55 17 102/49 (66) 94 11/15/19 03:30 53 18 88/67 (74) 95 11/15/19 03:15 49 17 119/43 (68) 95 11/15/19 03:10 65 18 40 11/15/19 03:00 54 17 119/42 (67) 96 11/15/19 03:00 119/42 11/15/19 02:45 59 19 104/46 (65) 97 11/15/19 02:30 59 17 114/44 (67) 97 11/15/19 02:15 68 21 112/67 (82) 97 11/15/19 02:00 139 17 115/56 (75) 95 11/15/19 02:00 115/56 11/15/19 01:45 141 14 118/61 (80) 96 11/15/19 01:30 64 21 119/58 (78) 96 11/15/19 01:15 56 18 120/75 (90) 97 11/15/19 01:00 55 12 114/85 (95) 94 11/15/19 01:00 114/85 11/15/19 00:51 59 18 40 11/15/19 00:45 47 17 101/40 (60) 97 11/15/19 00:30 60 14 107/40 (62) 96 11/15/19 00:15 55 17 118/44 (68) 97 11/15/19 00:00 98.2 45 18 128/60 (82) 98 11/15/19 00:00 Mechanical Ventilator 11/15/19 00:00 57 11/15/19 00:00 40 11/15/19 00:00 128/60 11/15/19 00:00 128/60 11/14/19 23:45 90 19 63/35 (44) 97 11/14/19 23:30 55 16 137/41 (73) 97 11/14/19 23:15 48 18 118/46 (70) 98 11/14/19 23:00 54 18 126/52 (76) 99 11/14/19 23:00 126/52 11/14/19 22:45 53 20 130/64 (86) 100 11/14/19 22:37 62 19 40 11/14/19 22:30 70 21 126/51 (76) 98 11/14/19 22:15 74 22 128/54 (78) 99 11/14/19 22:00 107/48 11/14/19 22:00 57 17 107/46 (66) 98 11/14/19 21:45 58 19 117/55 (75) 98 11/14/19 21:30 65 23 124/55 (78) 100 11/14/19 21:24 67 18 40 11/14/19 21:15 66 19 118/63 (81) 98 66 11/14/19 21:00 127/60 11/14/19 21:00 71 17 127/60 (82) 98 71 11/14/19 20:45 57 16 124/48 (73) 96 57 11/14/19 20:30 56 18 118/45 (69) 97 56 11/14/19 20:15 65 21 137/59 (85) 97 11/14/19 20:00 55 11/14/19 20:00 40 11/14/19 20:00 137/59 11/14/19 20:00 59 19 112/49 (70) 95 11/14/19 20:00 Mechanical Ventilator 11/14/19 19:45 54 16 115/51 (72) 97 11/14/19 19:30 98.2 50 18 120/49 (72) 98 11/14/19 19:00 73 18 128/56 (80) 99 11/14/19 18:57 78 22 40 11/14/19 18:30 50 18 113/45 (67) 99 11/14/19 18:00 55 18 118/50 (72) 99 11/14/19 17:30 59 18 114/68 (83) 98 11/14/19 17:19 82/61 11/14/19 17:00 75 18 82/61 (68) 97 11/14/19 17:00 82/61 11/14/19 16:55 73 19 40 11/14/19 16:30 55 18 92/40 (57) 96 11/14/19 16:00 Mechanical Ventilator 11/14/19 16:00 111/46 11/14/19 16:00 53 11/14/19 16:00 98.9 66 18 114/56 (75) 99 11/14/19 15:30 74 19 123/51 (75) 98 11/14/19 15:00 73 18 140/53 (82) 98 11/14/19 15:00 140/53 11/14/19 14:50 79 18 40 11/14/19 14:30 82 18 148/52 (84) 98 11/14/19 14:00 143/57 11/14/19 14:00 63 18 143/57 (85) 97 11/14/19 13:30 78 18 148/70 (96) 96 11/14/19 13:00 71 18 145/49 (81) 95 11/14/19 13:00 124/53 11/14/19 12:45 76 18 40 11/14/19 12:30 99.2 85 18 124/53 (76) 97 11/14/19 12:00 69 18 124/53 (76) 98 11/14/19 12:00 66 11/14/19 12:00 134/46 11/14/19 12:00 Mechanical Ventilator 11/14/19 12:00 40 11/14/19 11:30 96 18 161/63 (95) 97 11/14/19 11:23 83/44 Intake and Output 11/14/19 11/15/19 19:00 07:00 Intake Total 2596.724 ml 2113.846 ml Output Total 1365 ml 930 ml Balance 1231.724 ml 1183.846 ml Intake Free Water 50 ml IV Total 2076.724 ml 1453.846 ml Tube Feeding 440 ml 660 ml Other 30 ml Output Urine Total 1365 ml 930 ml # Bowel Movements 2 Laboratory Tests 11/15/19 05:17: White Blood Count 8.5, Red Blood Count 3.73L, Hemoglobin 12.8, Hematocrit 36.5L , Mean Corpuscular Volume 98, Mean Corpuscular Hemoglobin 34.2H, Mean Corpuscular Hemoglobin Concent 34.9, Red Cell Distribution Width 13.5, Platelet Count 199, Mean Platelet Volume 8.0, Neutrophils (%) (Auto) 59.3, Lymphocytes (% ) (Auto) 17.7L, Monocytes (%) (Auto) 11.4H, Eosinophils (%) (Auto) 10.6H, Basophils (%) (Auto) 1.1, Sodium Level 138, Potassium Level 4.3, Chloride Level 105, Carbon Dioxide Level 25, Anion Gap 8, Blood Urea Nitrogen 9, Creatinine 0.5L, Estimat Glomerular Filtration Rate > 60, Glucose Level 117H, Calcium Level 9.3, Phosphorus Level 2.6, Magnesium Level 1.9, Troponin I 0.000, Pro-B- Type Natriuretic Peptide 654H, Phenytoin (Dilantin) Level 13.6 Height (Feet): 5 Height (Inches): 3.00 Weight (Pounds): 190 Objective General Appearance: no apparent distress, other - on vent- trach and peg Lines, tubes and drains: peripheral HEENT: normocephalic, atraumatic Neck: supple Respiratory/Chest: lungs clear Cardiovascular/Chest: normal peripheral pulses, normal rate, regular rhythm Abdomen: soft Extremities: normal range of motion, normal inspection, non-pitting Neurologic: alert Bear Nice M.D. Nov 15, 2019 11:07
--- NOTE | 2019-11-15 12:27 | Diagnostic Imaging Report ---
Indication: Dyspnea Comparison: 11/12/2019 A single view chest radiograph was obtained. Findings: Interstitial and vascular prominence demonstrated with cardiomegaly. The left costophrenic angle is obscured but this is chronic. There is a tracheostomy again noted. IMPRESSION: No significant change. Suspected interstitial edema. Possible left pleural effusion
--- NOTE | 2019-11-15 12:39 | Surgery Progress Note ---
Surgery Progress Note Subjective Additional Comments ill appearing on support labs noted Objective Last 24 Hour Vital Signs Date Time Temp Pulse Resp B/P (MAP) Pulse Ox O2 Delivery O2 Flow Rate FiO2 11/15/19 12:00 99.0 60 19 111/50 (70) 98 11/15/19 11:45 53 18 106/46 (66) 96 11/15/19 11:30 71 18 120/50 (73) 99 11/15/19 11:15 55 18 98/41 (60) 98 11/15/19 11:15 56 19 40 11/15/19 11:00 83 19 114/49 (70) 97 11/15/19 10:45 61 18 119/61 (80) 97 11/15/19 10:30 51 18 134/49 (77) 96 11/15/19 10:15 49 19 126/48 (74) 11/15/19 10:00 54 19 112/81 (91) 96 11/15/19 09:45 80 21 120/70 (87) 92 11/15/19 09:30 63 18 124/43 (70) 93 11/15/19 09:15 49 18 117/46 (69) 93 11/15/19 09:00 60 18 40 11/15/19 09:00 55 18 128/40 (69) 95 11/15/19 08:45 61 18 126/99 (108) 90 11/15/19 08:30 50 17 120/49 (72) 92 11/15/19 08:15 45 17 122/52 (75) 92 11/15/19 08:00 52 11/15/19 08:00 Mechanical Ventilator 11/15/19 08:00 98.9 60 15 133/45 (74) 92 11/15/19 08:00 40 11/15/19 07:00 53 18 106/42 (63) 94 11/15/19 06:53 53 18 40 11/15/19 06:45 64 18 108/48 (68) 96 11/15/19 06:30 58 17 127/41 (69) 98 11/15/19 06:24 126/56 11/15/19 06:15 95 20 61/41 (48) 97 11/15/19 06:00 94 24 128/69 (88) 87 11/15/19 06:00 128/69 11/15/19 05:45 55 18 129/61 (83) 96 11/15/19 05:30 56 17 137/52 (80) 97 11/15/19 05:15 54 19 134/53 (80) 98 11/15/19 05:00 126/80 11/15/19 05:00 57 19 40 11/15/19 05:00 66 21 126/80 (95) 95 11/15/19 04:45 46 18 117/52 (73) 96 11/15/19 04:30 59 18 125/43 (70) 98 11/15/19 04:15 73 22 108/56 (73) 99 11/15/19 04:00 Mechanical Ventilator 11/15/19 04:00 51 11/15/19 04:00 99.0 68 18 109/60 (76) 95 11/15/19 04:00 117/52 11/15/19 04:00 40 11/15/19 03:45 55 17 102/49 (66) 94 11/15/19 03:30 53 18 88/67 (74) 95 11/15/19 03:15 49 17 119/43 (68) 95 11/15/19 03:10 65 18 40 11/15/19 03:00 54 17 119/42 (67) 96 11/15/19 03:00 119/42 11/15/19 02:45 59 19 104/46 (65) 97 11/15/19 02:30 59 17 114/44 (67) 97 11/15/19 02:15 68 21 112/67 (82) 97 11/15/19 02:00 139 17 115/56 (75) 95 11/15/19 02:00 115/56 11/15/19 01:45 141 14 118/61 (80) 96 11/15/19 01:30 64 21 119/58 (78) 96 11/15/19 01:15 56 18 120/75 (90) 97 11/15/19 01:00 55 12 114/85 (95) 94 11/15/19 01:00 114/85 11/15/19 00:51 59 18 40 11/15/19 00:45 47 17 101/40 (60) 97 11/15/19 00:30 60 14 107/40 (62) 96 11/15/19 00:15 55 17 118/44 (68) 97 11/15/19 00:00 98.2 45 18 128/60 (82) 98 11/15/19 00:00 Mechanical Ventilator 11/15/19 00:00 57 11/15/19 00:00 40 11/15/19 00:00 128/60 11/15/19 00:00 128/60 11/14/19 23:45 90 19 63/35 (44) 97 11/14/19 23:30 55 16 137/41 (73) 97 11/14/19 23:15 48 18 118/46 (70) 98 11/14/19 23:00 54 18 126/52 (76) 99 11/14/19 23:00 126/52 11/14/19 22:45 53 20 130/64 (86) 100 11/14/19 22:37 62 19 40 11/14/19 22:30 70 21 126/51 (76) 98 11/14/19 22:15 74 22 128/54 (78) 99 11/14/19 22:00 107/48 11/14/19 22:00 57 17 107/46 (66) 98 11/14/19 21:45 58 19 117/55 (75) 98 11/14/19 21:30 65 23 124/55 (78) 100 11/14/19 21:24 67 18 40 11/14/19 21:15 66 19 118/63 (81) 98 66 11/14/19 21:00 127/60 11/14/19 21:00 71 17 127/60 (82) 98 71 11/14/19 20:45 57 16 124/48 (73) 96 57 11/14/19 20:30 56 18 118/45 (69) 97 56 11/14/19 20:15 65 21 137/59 (85) 97 11/14/19 20:00 55 11/14/19 20:00 40 11/14/19 20:00 137/59 11/14/19 20:00 59 19 112/49 (70) 95 11/14/19 20:00 Mechanical Ventilator 11/14/19 19:45 54 16 115/51 (72) 97 11/14/19 19:30 98.2 50 18 120/49 (72) 98 11/14/19 19:00 73 18 128/56 (80) 99 11/14/19 18:57 78 22 40 11/14/19 18:30 50 18 113/45 (67) 99 11/14/19 18:00 55 18 118/50 (72) 99 11/14/19 17:30 59 18 114/68 (83) 98 11/14/19 17:19 82/61 11/14/19 17:00 75 18 82/61 (68) 97 11/14/19 17:00 82/61 11/14/19 16:55 73 19 40 11/14/19 16:30 55 18 92/40 (57) 96 11/14/19 16:00 Mechanical Ventilator 11/14/19 16:00 111/46 11/14/19 16:00 53 11/14/19 16:00 98.9 66 18 114/56 (75) 99 11/14/19 15:30 74 19 123/51 (75) 98 11/14/19 15:00 73 18 140/53 (82) 98 11/14/19 15:00 140/53 11/14/19 14:50 79 18 40 11/14/19 14:30 82 18 148/52 (84) 98 11/14/19 14:00 143/57 11/14/19 14:00 63 18 143/57 (85) 97 11/14/19 13:30 78 18 148/70 (96) 96 11/14/19 13:00 71 18 145/49 (81) 95 11/14/19 13:00 124/53 11/14/19 12:45 76 18 40 I&O Intake and Output 11/14/19 11/15/19 19:00 07:00 Intake Total 2596.724 ml 2203.846 ml Output Total 1365 ml 1035 ml Balance 1231.724 ml 1168.846 ml Intake Free Water 50 ml IV Total 2076.724 ml 1453.846 ml Tube Feeding 440 ml 720 ml Other 30 ml 30 ml Output Urine Total 1365 ml 1035 ml # Bowel Movements 2 Dressing: other Wound: other Drains: other Cardiovascular: RSR Respiratory: decreased breath sounds Abdomen: soft, present bowel sounds, non-distended, decreased bowel sounds Extremities: no tenderness, no cyanosis Laboratory Tests Test 11/15/19 05:17 White Blood Count 8.5 K/UL (4.8-10.8) Red Blood Count 3.73 M/UL (4.20-5.40) L Hemoglobin 12.8 G/DL (12.0-16.0) Hematocrit 36.5 % (37.0-47.0) L Mean Corpuscular Volume 98 FL (80-99) Mean Corpuscular Hemoglobin 34.2 PG (27.0-31.0) H Mean Corpuscular Hemoglobin Concent 34.9 G/DL (32.0-36.0) Red Cell Distribution Width 13.5 % (11.6-14.8) Platelet Count 199 K/UL (150-450) Mean Platelet Volume 8.0 FL (6.5-10.1) Neutrophils (%) (Auto) 59.3 % (45.0-75.0) Lymphocytes (%) (Auto) 17.7 % (20.0-45.0) L Monocytes (%) (Auto) 11.4 % (1.0-10.0) H Eosinophils (%) (Auto) 10.6 % (0.0-3.0) H Basophils (%) (Auto) 1.1 % (0.0-2.0) Sodium Level 138 MMOL/L (136-145) Potassium Level 4.3 MMOL/L (3.5-5.1) Chloride Level 105 MMOL/L (98-107) Carbon Dioxide Level 25 MMOL/L (21-32) Anion Gap 8 mmol/L (5-15) Blood Urea Nitrogen 9 mg/dL (7-18) Creatinine 0.5 MG/DL (0.55-1.30) L Estimat Glomerular Filtration Rate > 60 mL/min (>60) Glucose Level 117 MG/DL (74-106) H Calcium Level 9.3 MG/DL (8.5-10.1) Phosphorus Level 2.6 MG/DL (2.5-4.9) Magnesium Level 1.9 MG/DL (1.8-2.4) Troponin I 0.000 ng/mL (0.000-0.056) Pro-B-Type Natriuretic Peptide 654 pg/mL (0-125) H Phenytoin (Dilantin) Level 13.6 ug/mL (10-20) Plan Problems: (1) Decubitus skin ulcer Assessment & Plan: Pt presented on admission with resolving pressure injury R side to posterior aspect of neck. Base of wound is moist with pink epithelial. Mild odor noted (L)1.5cm x (W)6cm. Partial thickness stage 2 pressure injury in close proximity R side neck. Base of wound is moist and viable(L)0.7cm x (W) 0.8cm. Small amt serosanguineous exudate noted. Moist pink epithelial L side to posterior aspect of neck(L)5cm x (W)16.5cm. Within base of wound is a full thickness stage 3 pressure injury L side neck under tracheal collar. Base of wound is moist ,wan with macerated borders.(L)0.9cm x (W)2cm x (D)0.6cmSmall amt serous exudate noted. Mild odor noted. Erosion noted at GT site . Scattered areas of hyperpigmentation noted to R and L buttocks and both ischial tuberosities. Non-blanching erythema without induration noted to Sacrum. L heel Is boggy with an area of non-blanching erythema with delineated margins. R heel is soft but blanchable. Tx.Plan: Apply Zinc Oxide Paste 20% to Epithelial areas around neck Twice Daily.Place Abd pads under tracheal collar . Cleanse Wound L side of neck with Saline. Apply TheraHoney. Apply Zinc Oxide Paste periwound. Cover with Optifoam drsg Daily and prn. Apply Moisture Barrier Paste to sacrum. Cover with Optifoam drsg. Change every 3 days and prn. Apply Cavilon Skin Barrier to both heels. Cover each heel with Optifoam drsg. Change every 7 days and prn. APM/LUIGI Mattress overlay. Reposition at least every 2 hours or as tolerated. Off- Load heels with pillow. (2) Recurrent seizures Assessment & Plan: As per neurology No injury identified Rx is written (3) Feeding by G-tube Assessment & Plan: DAILY ESTIMATED NEEDS: Needs based on Obese, critical care, wound healing 65.8kg abw 22-28 kcals/kg 4503-6057 total kcals 1.25-2 g protein/kg 82-131 g total protein 25-30 mL/kg 8196-8340 total fluid mLs NUTRITION DIAGNOSIS: 1) Swallowing difficulty R/T respiratory status as evidenced by pt trach-vent dep, GT dep 2) Increased kcal/prot needs R/T wound healing as evidenced by pt admitted w/ multiple wounds including full thickness pressure injury at L side neck under tracheal collar and partial thickness pressure injurty in close proximity to R side neck CURRENT TF:TF HELD: Jevity 1.2 @ 75ml/hr x 18 hrs ENTERAL NUTRITION RECOMMENDATIONS: Glucerna 1.2 @ 70ml/hr x 20 hrs (TF HELD FOR DILANTIN AND SYNTHROID) to provide 1200ml, 1440kcal, 67g prot, 968ml free water * FEED W/ HEMODYNAMIC STABLITY -> rec TF change to Glucerna 1.2 (h/o DM) -> Initiate Glucerna 1.2 @ 20ml/hr x 6 hrs -> advance 10ml q 4-6 hrs as tolerated to goal rate -> HOLD TF 1 HR BEFORE AND AFTER DILANTIN BID AND SYNTHROID QD (AM Dilantin and Synthroid given at the same time) -> Water flush per MD/ HOB over 30 degrees ADDITIONAL RECOMMENDATIONS: * Calibrated bed scale weights for accurate CBW (w/ added P200 mattress) * Wound healing: Continue Vit C/ add Contreras 1pkt BID via PEG * Monitor HD stability: on Dopamine * TF to run max 20 hrs w/ Dilantin BID + Synthroid QD (See above TF rec) * Monitor lytes daily w/ TF, replete as needed . (4) G-tube site cellulitis Assessment & Plan: as above (5) Abnormal LFTs Assessment & Plan: nondistended gallbladder with gallstones. Apparent gallbladder wall thickening, probably artifact of under distention but raises the possibility of acute cholecystitis. Consider nuclear medicine hepatobiliary scan if there is high clinical suspicion Negative for dilated bile ducts Echogenic foci in the left renal sinus, could represent nonobstructive calculi within the be artifactual given lack of evidence of such on prior CT scan Incidental findings left lower pole renal cyst, dystrophic right right lobe liver calcification Note incomplete visualization of portions of the abdominal aorta Heath Martell Nov 15, 2019 12:39
[2019-11-15] MEDS: Vancomycin 750mg/NS 275ml IVPB SCH ×2 (16:20)
--- NOTE | 2019-11-15 18:56 | Infectious Diseases Prog Note ---
Assessment/Plan Assessment/Plan ASSESSMENT AND PLAN: 1. esbl e.coli uti, streptococcus/proteus/providencia pna, ? gram + bacteremia, sepsis/shock, leukocytosis, fevers - vancomycin plus meropenem for now - day # 4 total abx - f/u on cultures, labs and chest x-ray - icu care - wound care per protocol - doubt sepsis source 2. The patient has history of trach, vent, and respiratory failure. 3. History of sepsis. 4. Quadriplegia and weakness. 5. History of CAD and STEMI, CHF 6. Hypertension. 7. Diabetes. 8. Blood sugar and blood pressure treatment per primary team for diabetes and hypertension. 9. Dementia. 10. Seizure history. 11. Chronic obstructive pulmonary disease. 12. History of diverticulosis. 13. Quadriplegia. 14. Encephalopathy. 15. Continue treatment per primary consultants. 16. Allergic to peanuts. 17. Social history is negative. 18. Family history is noncontributory. 19. MAR is noted. 20. Case was discussed with RN. Subjective Constitutional: Denies: fever, fatigue HEENT: Denies: congestion Respiratory: Denies: shortness of breath Cardiovascular: Denies: chest pain Gastrointestinal/Abdominal: Denies: nausea, vomiting, diarrhea Genitourinary: Reports: other - + gould Neurologic: Denies: headache Psychiatric: Denies: depression Hematologic: Denies: bleeding Musculoskeletal: Denies: pain Allergies: Coded Allergies: PEANUT (Verified Allergy, Unknown, 09/22/16) Uncoded Allergies: PEANUTS (Allergy, Unknown, 02/04/19) Objective Vital Signs Last 24 Hour Vital Signs Date Time Temp Pulse Resp B/P (MAP) Pulse Ox O2 Delivery O2 Flow Rate FiO2 11/15/19 17:30 65 18 65/34 (44) 96 11/15/19 17:15 68 18 96/39 (58) 96 11/15/19 17:03 63 18 40 11/15/19 17:00 66 18 90/40 (57) 97 11/15/19 16:45 65 18 88/42 (57) 97 11/15/19 16:30 66 18 94/46 (62) 97 11/15/19 16:15 87 20 141/55 (83) 97 11/15/19 16:00 Mechanical Ventilator 11/15/19 16:00 40 11/15/19 16:00 52 11/15/19 16:00 98.8 51 18 138/49 (78) 98 11/15/19 15:45 50 18 138/51 (80) 95 11/15/19 15:30 65 18 145/79 (101) 96 11/15/19 15:15 68 20 130/97 (108) 95 11/15/19 15:00 67 18 144/83 (103) 96 11/15/19 14:52 69 19 40 11/15/19 14:45 68 19 145/56 (85) 97 11/15/19 14:30 58 18 137/52 (80) 97 11/15/19 14:15 53 18 146/64 (91) 97 11/15/19 14:00 65 19 143/53 (83) 97 11/15/19 13:45 63 19 110/86 (94) 98 11/15/19 13:39 60 21 119/77 (91) 99 11/15/19 13:20 66 18 111/44 (66) 96 11/15/19 13:16 97/49 11/15/19 13:15 84 18 81/42 (55) 97 11/15/19 13:13 72 20 40 11/15/19 13:00 77 20 97/49 (65) 99 11/15/19 12:00 40 11/15/19 12:00 55 11/15/19 12:00 99.0 60 19 111/50 (70) 98 11/15/19 12:00 Mechanical Ventilator 11/15/19 11:45 53 18 106/46 (66) 96 11/15/19 11:30 71 18 120/50 (73) 99 11/15/19 11:15 55 18 98/41 (60) 98 11/15/19 11:15 56 19 40 11/15/19 11:00 83 19 114/49 (70) 97 11/15/19 10:45 61 18 119/61 (80) 97 11/15/19 10:30 51 18 134/49 (77) 96 11/15/19 10:15 49 19 126/48 (74) 11/15/19 10:00 54 19 112/81 (91) 96 11/15/19 09:45 80 21 120/70 (87) 92 11/15/19 09:30 63 18 124/43 (70) 93 11/15/19 09:15 49 18 117/46 (69) 93 11/15/19 09:00 60 18 40 11/15/19 09:00 55 18 128/40 (69) 95 11/15/19 08:45 61 18 126/99 (108) 90 11/15/19 08:30 50 17 120/49 (72) 92 11/15/19 08:15 45 17 122/52 (75) 92 11/15/19 08:00 52 11/15/19 08:00 Mechanical Ventilator 11/15/19 08:00 98.9 60 15 133/45 (74) 92 11/15/19 08:00 40 11/15/19 07:00 53 18 106/42 (63) 94 11/15/19 06:53 53 18 40 11/15/19 06:45 64 18 108/48 (68) 96 11/15/19 06:30 58 17 127/41 (69) 98 11/15/19 06:24 126/56 11/15/19 06:15 95 20 61/41 (48) 97 11/15/19 06:00 94 24 128/69 (88) 87 11/15/19 06:00 128/69 11/15/19 05:45 55 18 129/61 (83) 96 11/15/19 05:30 56 17 137/52 (80) 97 11/15/19 05:15 54 19 134/53 (80) 98 11/15/19 05:00 126/80 11/15/19 05:00 57 19 40 11/15/19 05:00 66 21 126/80 (95) 95 11/15/19 04:45 46 18 117/52 (73) 96 11/15/19 04:30 59 18 125/43 (70) 98 11/15/19 04:15 73 22 108/56 (73) 99 11/15/19 04:00 Mechanical Ventilator 11/15/19 04:00 51 11/15/19 04:00 99.0 68 18 109/60 (76) 95 11/15/19 04:00 117/52 11/15/19 04:00 40 11/15/19 03:45 55 17 102/49 (66) 94 11/15/19 03:30 53 18 88/67 (74) 95 11/15/19 03:15 49 17 119/43 (68) 95 11/15/19 03:10 65 18 40 11/15/19 03:00 54 17 119/42 (67) 96 11/15/19 03:00 119/42 11/15/19 02:45 59 19 104/46 (65) 97 11/15/19 02:30 59 17 114/44 (67) 97 11/15/19 02:15 68 21 112/67 (82) 97 11/15/19 02:00 139 17 115/56 (75) 95 11/15/19 02:00 115/56 11/15/19 01:45 141 14 118/61 (80) 96 11/15/19 01:30 64 21 119/58 (78) 96 11/15/19 01:15 56 18 120/75 (90) 97 11/15/19 01:00 55 12 114/85 (95) 94 11/15/19 01:00 114/85 11/15/19 00:51 59 18 40 11/15/19 00:45 47 17 101/40 (60) 97 11/15/19 00:30 60 14 107/40 (62) 96 11/15/19 00:15 55 17 118/44 (68) 97 11/15/19 00:00 98.2 45 18 128/60 (82) 98 11/15/19 00:00 Mechanical Ventilator 11/15/19 00:00 57 11/15/19 00:00 40 11/15/19 00:00 128/60 11/15/19 00:00 128/60 11/14/19 23:45 90 19 63/35 (44) 97 11/14/19 23:30 55 16 137/41 (73) 97 11/14/19 23:15 48 18 118/46 (70) 98 11/14/19 23:00 54 18 126/52 (76) 99 11/14/19 23:00 126/52 11/14/19 22:45 53 20 130/64 (86) 100 11/14/19 22:37 62 19 40 11/14/19 22:30 70 21 126/51 (76) 98 11/14/19 22:15 74 22 128/54 (78) 99 11/14/19 22:00 107/48 3/12/20 22:00 57 17 107/46 (66) 98 11/14/19 21:45 58 19 117/55 (75) 98 11/14/19 21:30 65 23 124/55 (78) 100 11/14/19 21:24 67 18 40 11/14/19 21:15 66 19 118/63 (81) 98 66 11/14/19 21:00 127/60 11/14/19 21:00 71 17 127/60 (82) 98 71 11/14/19 20:45 57 16 124/48 (73) 96 57 11/14/19 20:30 56 18 118/45 (69) 97 56 11/14/19 20:15 65 21 137/59 (85) 97 11/14/19 20:00 55 11/14/19 20:00 40 11/14/19 20:00 137/59 11/14/19 20:00 59 19 112/49 (70) 95 11/14/19 20:00 Mechanical Ventilator 11/14/19 19:45 54 16 115/51 (72) 97 11/14/19 19:30 98.2 50 18 120/49 (72) 98 11/14/19 19:00 73 18 128/56 (80) 99 11/14/19 18:57 78 22 40 Height (Feet): 5 Height (Inches): 3.00 Weight (Pounds): 190 General Appearance: no acute distress, other - + trach, alert, + dopamine for pressors HEENT: normocephalic, atraumatic, anicteric, mucous membranes moist Respiratory/Chest: crackles/rales, rhonchi - bilaterally Cardiovascular: normal rate, regular rhythm, no gallop/murmur, no JVD Abdomen: normal bowel sounds, soft, non tender, no organomegaly, non distended Genitourinary: other - + gould - uirne slt cloudy Extremities: no cyanosis Skin: no rash 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 Background mostly interstitial disease is unchanged, over one day Abdominal US: Impression: Nondistended gallbladder with gallstones. Apparent gallbladder wall thickening, probably artifact of under distention but raises the possibility of acute cholecystitis. Consider nuclear medicine hepatobiliary scan if there is high clinical suspicion Negative for dilated bile ducts Chest x-ray - 11/15/19 - Procedure: XRAY Chest 1v Indication: Dyspnea Comparison: 11/12/2019 A single view chest radiograph was obtained. Findings: Interstitial and vascular prominence demonstrated with cardiomegaly. The left costophrenic angle is obscured but this is chronic. There is a tracheostomy again noted. IMPRESSION: No significant change. Suspected interstitial edema. Possible left pleural effusion Microbiology Date/Time Source Procedure Growth Status 11/13/19 19:35 Blood Blood Culture - Preliminary NO GROWTH AFTER 24 HOURS Resulted 11/13/19 19:20 Blood Blood Culture - Preliminary NO GROWTH AFTER 24 HOURS Resulted 11/12/19 20:00 Stool Clostridium difficile Toxin Assay - Final Complete Laboratory Tests Test 11/15/19 05:17 White Blood Count 8.5 K/UL (4.8-10.8) Red Blood Count 3.73 M/UL (4.20-5.40) L Hemoglobin 12.8 G/DL (12.0-16.0) Hematocrit 36.5 % (37.0-47.0) L Mean Corpuscular Volume 98 FL (80-99) Mean Corpuscular Hemoglobin 34.2 PG (27.0-31.0) H Mean Corpuscular Hemoglobin Concent 34.9 G/DL (32.0-36.0) Red Cell Distribution Width 13.5 % (11.6-14.8) Platelet Count 199 K/UL (150-450) Mean Platelet Volume 8.0 FL (6.5-10.1) Neutrophils (%) (Auto) 59.3 % (45.0-75.0) Lymphocytes (%) (Auto) 17.7 % (20.0-45.0) L Monocytes (%) (Auto) 11.4 % (1.0-10.0) H Eosinophils (%) (Auto) 10.6 % (0.0-3.0) H Basophils (%) (Auto) 1.1 % (0.0-2.0) Sodium Level 138 MMOL/L (136-145) Potassium Level 4.3 MMOL/L (3.5-5.1) Chloride Level 105 MMOL/L (98-107) Carbon Dioxide Level 25 MMOL/L (21-32) Anion Gap 8 mmol/L (5-15) Blood Urea Nitrogen 9 mg/dL (7-18) Creatinine 0.5 MG/DL (0.55-1.30) L Estimat Glomerular Filtration Rate > 60 mL/min (>60) Glucose Level 117 MG/DL (74-106) H Calcium Level 9.3 MG/DL (8.5-10.1) Phosphorus Level 2.6 MG/DL (2.5-4.9) Magnesium Level 1.9 MG/DL (1.8-2.4) Troponin I 0.000 ng/mL (0.000-0.056) Pro-B-Type Natriuretic Peptide 654 pg/mL (0-125) H Phenytoin (Dilantin) Level 13.6 ug/mL (10-20) Current Medications Medications (Trade) Dose Ordered Sig/Boubacar Route PRN Reason Start Time Stop Time Status Last Admin Dose Admin Acetaminophen (Tylenol) 650 mg Q6H PRN GT Mild Pain/Temp > 100.5 11/11/19 14:30 12/11/19 14:29 Albuterol/ Ipratropium (Albuterol/ Ipratropium) 3 ml Q4H PRN HHN Shortness of Breath 11/11/19 14:30 11/16/19 14:29 Ascorbic Acid (Vitamin C) 500 mg DAILY NG 11/12/19 09:00 12/12/19 08:59 11/15/19 09:42 Chlorhexidine Gluconate ([place]-Hex 2%) 1 applic DAILY@2000 TOPIC 11/13/19 20:00 12/13/19 19:59 11/14/19 20:58 Dextrose (Dextrose 50%) 25 ml Q30M PRN IV Hypoglycemia 11/11/19 20:30 12/11/19 20:29 Dextrose (Dextrose 50%) 50 ml Q30M PRN IV Hypoglycemia 11/11/19 20:30 12/11/19 20:29 Docusate Sodium (Colace) 100 mg DAILY GT 11/12/19 09:00 12/12/19 08:59 11/15/19 09:41 Dopamine HCl/ Dextrose 250 ml @ 0 mls/hr Q24H IV 11/11/19 23:00 12/11/19 22:59 11/15/19 13:16 Ferrous Sulfate (Feosol) 300 mg THREE TIMES A DAY GT 11/11/19 18:00 12/11/19 17:59 11/15/19 18:15 Heparin Sodium/ Sodium Chloride (Heparin 1000 units/500ml Premix) 1,000 unit ONCE PRN IV PICC LINE 11/14/19 19:45 11/16/19 19:44 Insulin Aspart (NovoLOG) BEFORE MEALS AND HS SUBQ 11/11/19 22:00 12/11/19 21:59 Levothyroxine Sodium (Synthroid) 150 mcg DAILY@0630 GT 11/12/19 06:30 12/12/19 06:29 11/15/19 05:52 Lidocaine HCl (Xylocaine 1% 30ml) 30 ml ONCE PRN INJ PICC LINE 11/14/19 19:45 11/16/19 19:44 Meropenem 1 gm/ Sodium Chloride 100 ml @ 200 mls/hr Q8HR IVPB 11/13/19 20:00 11/18/19 19:59 11/15/19 16:20 Multivitamins (Multivitamins W/ Minerals 15ml Liquid) 15 ml DAILY GT 11/12/19 09:00 12/12/19 08:59 11/15/19 09:42 Ondansetron HCl (Zofran) 4 mg Q6H PRN IVP Nausea & Vomiting 11/12/19 03:00 12/12/19 02:59 11/12/19 03:48 Phenytoin (Dilantin) 250 mg Q12HR@0630,1830 GT 11/12/19 18:30 12/12/19 18:29 11/15/19 18:14 Phosphorus (Phospha 250 Neutral) 250 mg THREE TIMES A DAY GT 11/14/19 18:00 12/14/19 17:59 11/15/19 18:16 Sodium 1,000 ml @ 50 mls/hr Q20H IV 11/15/19 12:45 11/16/19 12:44 Vancomycin HCl (Vanco rx to dose) 1 ea DAILY PRN MISC Per rx protocol 11/12/19 13:30 12/12/19 13:29 Vancomycin HCl 750 mg/Sodium Chloride 275 ml @ 183.333 mls/hr Q24H IVPB 11/13/19 15:00 11/18/19 14:59 11/15/19 16:20 Zinc Oxide (Zinc Oxide) 1 applic BID TOPIC 11/12/19 10:00 12/12/19 09:59 11/15/19 18:15 Leslie Corrales MD Nov 15, 2019 18:56
[2019-11-15] MEDS: Dyna-Hex 2% Top Sol 2oz TOPIC SCH (21:09)
[2019-11-16] VITALS (55 sets, daily range): BP systolic 62–142; BP diastolic 39–92
[2019-11-16] MEDS: NovoLOG Insulin Flexpen SUBQ SCH ×4 (05:43→21:00)
[2019-11-16] MEDS: Phenytoin Susp 100mg/4ml GT SCH ×2 (06:26→18:12)
[2019-11-16] MEDS: DOPamine 400mg/250ml 250 ML IV SCH ×2 (06:30→16:33)
[2019-11-16 06:43] LABS: BASOPHILS % (AUTO) 0.9 % (0.0-2.0); EOSINOPHILS % (AUTO) 9.9 % (0.0-3.0); HEMATOCRIT 34.5 % (37.0-47.0); HEMOGLOBIN 11.8 G/DL (12.0-16.0); LYMPHOCYTES % (AUTO) 17.9 % (20.0-45.0); MEAN CORPUSCULAR VOLUME 98 FL (80-99); NEUTROPHILS % (AUTO) 61.3 % (45.0-75.0); PLATELET COUNT 211 K/UL (150-450); RED BLOOD COUNT 3.51 M/UL (4.20-5.40); RED CELL DISTRIBUTION WIDTH 13.4 % (11.6-14.8); WHITE BLOOD COUNT 7.7 K/UL (4.8-10.8)
[2019-11-16 06:59] LABS: ANION GAP 7 mmol/L (5-15); BLOOD UREA NITROGEN 9 mg/dL (7-18); CALCIUM 9.5 MG/DL (8.5-10.1); CARBON DIOXIDE 27 MMOL/L (21-32); CHLORIDE 103 MMOL/L (98-107); CREATININE 0.4 MG/DL (0.55-1.30); POTASSIUM 4.3 MMOL/L (3.5-5.1); SODIUM 137 MMOL/L (136-145)
[2019-11-16] MEDS: Ferrous Sulfate 300 MG/5 ML UDC GT SCH ×3 (09:17→18:10)
[2019-11-16] MEDS: Phospha 250 Neutral tab GT SCH ×3 (09:17→18:12)
[2019-11-16] MEDS: Ascorbic Acid 500mg tab NG SCH (09:17)
[2019-11-16] MEDS: Multivitamins W/Minerals 15 ML UDC GT SCH (09:17)
[2019-11-16] MEDS: Docusate 100mg/10ml Liq GT SCH (09:17)
[2019-11-16] MEDS: Zinc Oxide Oint 2oz TOPIC SCH ×2 (09:18→18:13)
[2019-11-16] MEDS ORDERED: Tubing IV Secondary IV ONE (09:59)
[2019-11-16] MEDS ORDERED: D5W 275ml ONE (09:59)
[2019-11-16] MEDS ORDERED: D5 1/2NS 1000ml IV ONE (09:59)
--- NOTE | 2019-11-16 13:02 | Surgery Progress Note ---
Surgery Progress Note Subjective Additional Comments ill appearing on vents support labs reviewed exam stable Objective Last 24 Hour Vital Signs Date Time Temp Pulse Resp B/P (MAP) Pulse Ox O2 Delivery O2 Flow Rate FiO2 11/16/19 11:16 89 26 40 11/16/19 09:32 75 21 95/46 (62) 98 11/16/19 09:30 71 20 86/52 (63) 98 11/16/19 09:05 52 18 40 11/16/19 09:00 79 20 113/49 (70) 99 11/16/19 08:30 60 16 99/42 (61) 98 11/16/19 08:00 59 11/16/19 08:00 62 17 105/59 (74) 99 11/16/19 08:00 40 11/16/19 08:00 Mechanical Ventilator 11/16/19 07:44 55 18 40 11/16/19 07:30 64 15 105/48 (67) 98 11/16/19 07:00 98.4 66 16 109/44 (65) 99 11/16/19 06:30 88/59 11/16/19 06:00 124/51 11/16/19 06:00 79 20 124/51 (75) 98 11/16/19 05:57 62 18 40 11/16/19 05:00 88/59 11/16/19 05:00 83 26 99/43 (61) 98 11/16/19 04:57 86 23 109/53 (71) 99 11/16/19 04:30 68 11 85/47 (60) 99 11/16/19 04:00 68 11/16/19 04:00 98.0 76 14 103/39 (60) 98 11/16/19 04:00 Mechanical Ventilator 11/16/19 04:00 99/65 11/16/19 04:00 40 11/16/19 03:31 67 18 40 11/16/19 03:30 70 18 99/43 (61) 100 11/16/19 03:00 67 17 90/43 (59) 98 11/16/19 03:00 112/56 11/16/19 02:30 66 18 100/42 (61) 98 11/16/19 02:00 92/42 11/16/19 02:00 86 18 91/61 (71) 98 11/16/19 01:30 68 18 92/42 (59) 99 11/16/19 01:12 68 18 40 11/16/19 01:00 81 19 109/53 (71) 97 11/16/19 01:00 109/53 11/16/19 00:30 68 17 90/44 (59) 98 11/16/19 00:10 85 21 102/49 (66) 97 11/16/19 00:00 98.6 74 10 88/45 (59) 99 11/16/19 00:00 40 11/16/19 00:00 102/49 11/16/19 00:00 Mechanical Ventilator 11/15/19 23:30 73 9 101/40 (60) 100 11/15/19 23:00 70 7 102/48 (66) 99 11/15/19 23:00 102/48 11/15/19 22:47 74 18 40 11/15/19 22:30 75 16 99/47 (64) 98 11/15/19 22:00 75 16 99/47 (64) 98 11/15/19 22:00 99/47 11/15/19 21:42 86 18 40 11/15/19 21:30 81 19 116/60 (78) 100 11/15/19 21:10 118/77 11/15/19 21:00 64 16 87/70 (76) 94 11/15/19 20:30 61 18 110/44 (66) 96 11/15/19 20:00 97.5 66 18 104/50 (68) 95 11/15/19 20:00 100/40 11/15/19 20:00 55 11/15/19 20:00 Mechanical Ventilator 11/15/19 20:00 40 11/15/19 19:48 74 20 40 11/15/19 19:00 110/42 11/15/19 19:00 55 18 97 11/15/19 18:45 61 17 118/77 (91) 97 11/15/19 18:30 58 18 111/45 (67) 97 11/15/19 18:15 60 18 121/51 (74) 98 11/15/19 18:00 68 18 124/78 (93) 96 11/15/19 17:30 65 18 65/34 (44) 96 11/15/19 17:15 68 18 96/39 (58) 96 11/15/19 17:03 63 18 40 11/15/19 17:00 66 18 90/40 (57) 97 11/15/19 16:45 65 18 88/42 (57) 97 11/15/19 16:30 66 18 94/46 (62) 97 11/15/19 16:15 87 20 141/55 (83) 97 11/15/19 16:00 Mechanical Ventilator 11/15/19 16:00 40 11/15/19 16:00 52 11/15/19 16:00 98.8 51 18 138/49 (78) 98 11/15/19 15:45 50 18 138/51 (80) 95 11/15/19 15:30 65 18 145/79 (101) 96 11/15/19 15:15 68 20 130/97 (108) 95 11/15/19 15:00 67 18 144/83 (103) 96 11/15/19 14:52 69 19 40 11/15/19 14:45 68 19 145/56 (85) 97 11/15/19 14:30 58 18 137/52 (80) 97 11/15/19 14:15 53 18 146/64 (91) 97 11/15/19 14:00 65 19 143/53 (83) 97 11/15/19 13:45 63 19 110/86 (94) 98 11/15/19 13:39 60 21 119/77 (91) 99 11/15/19 13:20 66 18 111/44 (66) 96 11/15/19 13:16 97/49 11/15/19 13:15 84 18 81/42 (55) 97 11/15/19 13:13 72 20 40 I&O Intake and Output 11/15/19 11/16/19 19:00 07:00 Intake Total 1264.379 ml 1912.851 ml Output Total 1145 ml 1015 ml Balance 119.379 ml 897.851 ml Intake Free Water 120 ml IV Total 544.379 ml 922.851 ml Tube Feeding 720 ml 840 ml Other 30 ml Output Urine Total 1145 ml 1015 ml # Bowel Movements 1 Dressing: other Wound: other Drains: other Cardiovascular: RSR Respiratory: decreased breath sounds Abdomen: soft, non-tender, present bowel sounds Extremities: no cyanosis Laboratory Tests Test 11/16/19 05:36 White Blood Count 7.7 K/UL (4.8-10.8) Red Blood Count 3.51 M/UL (4.20-5.40) L Hemoglobin 11.8 G/DL (12.0-16.0) L Hematocrit 34.5 % (37.0-47.0) L Mean Corpuscular Volume 98 FL (80-99) Mean Corpuscular Hemoglobin 33.6 PG (27.0-31.0) H Mean Corpuscular Hemoglobin Concent 34.3 G/DL (32.0-36.0) Red Cell Distribution Width 13.4 % (11.6-14.8) Platelet Count 211 K/UL (150-450) Mean Platelet Volume 8.4 FL (6.5-10.1) Neutrophils (%) (Auto) 61.3 % (45.0-75.0) Lymphocytes (%) (Auto) 17.9 % (20.0-45.0) L Monocytes (%) (Auto) 10.0 % (1.0-10.0) Eosinophils (%) (Auto) 9.9 % (0.0-3.0) H Basophils (%) (Auto) 0.9 % (0.0-2.0) Sodium Level 137 MMOL/L (136-145) Potassium Level 4.3 MMOL/L (3.5-5.1) Chloride Level 103 MMOL/L (98-107) Carbon Dioxide Level 27 MMOL/L (21-32) Anion Gap 7 mmol/L (5-15) Blood Urea Nitrogen 9 mg/dL (7-18) Creatinine 0.4 MG/DL (0.55-1.30) L Estimat Glomerular Filtration Rate > 60 mL/min (>60) Glucose Level 121 MG/DL (74-106) H Calcium Level 9.5 MG/DL (8.5-10.1) Plan Problems: (1) Decubitus skin ulcer Assessment & Plan: Pt presented on admission with resolving pressure injury R side to posterior aspect of neck. Base of wound is moist with pink epithelial. Mild odor noted (L)1.5cm x (W)6cm. Partial thickness stage 2 pressure injury in close proximity R side neck. Base of wound is moist and viable(L)0.7cm x (W) 0.8cm. Small amt serosanguineous exudate noted. Moist pink epithelial L side to posterior aspect of neck(L)5cm x (W)16.5cm. Within base of wound is a full thickness stage 3 pressure injury L side neck under tracheal collar. Base of wound is moist ,wan with macerated borders.(L)0.9cm x (W)2cm x (D)0.6cmSmall amt serous exudate noted. Mild odor noted. Erosion noted at GT site . Scattered areas of hyperpigmentation noted to R and L buttocks and both ischial tuberosities. Non-blanching erythema without induration noted to Sacrum. L heel Is boggy with an area of non-blanching erythema with delineated margins. R heel is soft but blanchable. Tx.Plan: Apply Zinc Oxide Paste 20% to Epithelial areas around neck Twice Daily.Place Abd pads under tracheal collar . Cleanse Wound L side of neck with Saline. Apply TheraHoney. Apply Zinc Oxide Paste periwound. Cover with Optifoam drsg Daily and prn. Apply Moisture Barrier Paste to sacrum. Cover with Optifoam drsg. Change every 3 days and prn. Apply Cavilon Skin Barrier to both heels. Cover each heel with Optifoam drsg. Change every 7 days and prn. APM/LUIGI Mattress overlay. Reposition at least every 2 hours or as tolerated. Off- Load heels with pillow. (2) Recurrent seizures Assessment & Plan: As per neurology No injury identified Rx is written (3) Feeding by G-tube Assessment & Plan: DAILY ESTIMATED NEEDS: Needs based on Obese, critical care, wound healing 65.8kg abw 22-28 kcals/kg 7390-9395 total kcals 1.25-2 g protein/kg 82-131 g total protein 25-30 mL/kg 5584-4804 total fluid mLs NUTRITION DIAGNOSIS: 1) Swallowing difficulty R/T respiratory status as evidenced by pt trach-vent dep, GT dep 2) Increased kcal/prot needs R/T wound healing as evidenced by pt admitted w/ multiple wounds including full thickness pressure injury at L side neck under tracheal collar and partial thickness pressure injurty in close proximity to R side neck CURRENT TF:TF HELD: Jevity 1.2 @ 75ml/hr x 18 hrs ENTERAL NUTRITION RECOMMENDATIONS: Glucerna 1.2 @ 70ml/hr x 20 hrs (TF HELD FOR DILANTIN AND SYNTHROID) to provide 1200ml, 1440kcal, 67g prot, 968ml free water * FEED W/ HEMODYNAMIC STABLITY -> rec TF change to Glucerna 1.2 (h/o DM) -> Initiate Glucerna 1.2 @ 20ml/hr x 6 hrs -> advance 10ml q 4-6 hrs as tolerated to goal rate -> HOLD TF 1 HR BEFORE AND AFTER DILANTIN BID AND SYNTHROID QD (AM Dilantin and Synthroid given at the same time) -> Water flush per MD/ HOB over 30 degrees ADDITIONAL RECOMMENDATIONS: * Calibrated bed scale weights for accurate CBW (w/ added P200 mattress) * Wound healing: Continue Vit C/ add Contreras 1pkt BID via PEG * Monitor HD stability: on Dopamine * TF to run max 20 hrs w/ Dilantin BID + Synthroid QD (See above TF rec) * Monitor lytes daily w/ TF, replete as needed . (4) G-tube site cellulitis Assessment & Plan: as above (5) Abnormal LFTs Assessment & Plan: nondistended gallbladder with gallstones. Apparent gallbladder wall thickening, probably artifact of under distention but raises the possibility of acute cholecystitis. Consider nuclear medicine hepatobiliary scan if there is high clinical suspicion Negative for dilated bile ducts Echogenic foci in the left renal sinus, could represent nonobstructive calculi within the be artifactual given lack of evidence of such on prior CT scan Incidental findings left lower pole renal cyst, dystrophic right right lobe liver calcification Note incomplete visualization of portions of the abdominal aorta Heath Martell Nov 16, 2019 13:02
[2019-11-16] MEDS ORDERED: Vancomycin 1.25gm/NS Premix IVPB ONE (16:00)
[2019-11-16] MEDS: Dyna-Hex 2% Top Sol 2oz TOPIC SCH (20:03)
--- NOTE | 2019-11-16 20:43 | Nephrology Progress Note ---
Assessment/Plan Plan # Hypokalemia - improved #Respiratory failure s/p trach # Seizure. 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 Hogan nephrology progress note remains in ICU labs reviewed On vent Objective Objective Last 24 Hour Vital Signs Date Time Temp Pulse Resp B/P (MAP) Pulse Ox O2 Delivery O2 Flow Rate FiO2 11/16/19 18:55 77 22 40 11/16/19 18:00 88 20 127/45 (72) 97 11/16/19 17:29 84 23 40 11/16/19 17:00 98.7 53 18 96/40 (58) 97 11/16/19 16:33 99/43 11/16/19 16:00 40 11/16/19 16:00 87 11/16/19 16:00 Mechanical Ventilator 11/16/19 16:00 83 18 135/54 (81) 98 11/16/19 15:07 67 18 40 11/16/19 15:00 65 18 115/42 (66) 97 11/16/19 14:00 65 18 105/74 (84) 98 11/16/19 13:30 71 21 107/42 (63) 99 11/16/19 13:22 77 20 40 11/16/19 13:00 77 20 115/46 (69) 98 11/16/19 12:30 77 22 108/49 (68) 98 11/16/19 12:00 Mechanical Ventilator 11/16/19 12:00 98.3 77 19 92/71 (78) 96 11/16/19 12:00 40 11/16/19 12:00 58 11/16/19 11:30 63 15 101/68 (79) 98 11/16/19 11:16 89 26 40 11/16/19 11:00 78 17 99/64 (76) 99 11/16/19 10:30 69 20 110/76 (87) 98 11/16/19 10:00 68 18 101/48 (65) 98 11/16/19 09:32 75 21 95/46 (62) 98 11/16/19 09:30 71 20 86/52 (63) 98 11/16/19 09:05 52 18 40 11/16/19 09:00 79 20 113/49 (70) 99 11/16/19 08:30 60 16 99/42 (61) 98 11/16/19 08:00 59 11/16/19 08:00 62 17 105/59 (74) 99 11/16/19 08:00 40 11/16/19 08:00 Mechanical Ventilator 11/16/19 07:44 55 18 40 11/16/19 07:30 64 15 105/48 (67) 98 11/16/19 07:00 98.4 66 16 109/44 (65) 99 11/16/19 06:30 88/59 11/16/19 06:00 124/51 11/16/19 06:00 79 20 124/51 (75) 98 11/16/19 05:57 62 18 40 11/16/19 05:00 88/59 11/16/19 05:00 83 26 99/43 (61) 98 11/16/19 04:57 86 23 109/53 (71) 99 11/16/19 04:30 68 11 85/47 (60) 99 11/16/19 04:00 68 11/16/19 04:00 98.0 76 14 103/39 (60) 98 11/16/19 04:00 Mechanical Ventilator 11/16/19 04:00 99/65 11/16/19 04:00 40 11/16/19 03:31 67 18 40 11/16/19 03:30 70 18 99/43 (61) 100 11/16/19 03:00 67 17 90/43 (59) 98 11/16/19 03:00 112/56 11/16/19 02:30 66 18 100/42 (61) 98 11/16/19 02:00 92/42 11/16/19 02:00 86 18 91/61 (71) 98 11/16/19 01:30 68 18 92/42 (59) 99 11/16/19 01:12 68 18 40 11/16/19 01:00 81 19 109/53 (71) 97 11/16/19 01:00 109/53 11/16/19 00:30 68 17 90/44 (59) 98 11/16/19 00:10 85 21 102/49 (66) 97 11/16/19 00:00 98.6 74 10 88/45 (59) 99 11/16/19 00:00 40 11/16/19 00:00 102/49 11/16/19 00:00 Mechanical Ventilator 11/15/19 23:30 73 9 101/40 (60) 100 11/15/19 23:00 70 7 102/48 (66) 99 11/15/19 23:00 102/48 11/15/19 22:47 74 18 40 11/15/19 22:30 75 16 99/47 (64) 98 11/15/19 22:00 75 16 99/47 (64) 98 11/15/19 22:00 99/47 11/15/19 21:42 86 18 40 11/15/19 21:30 81 19 116/60 (78) 100 11/15/19 21:10 118/77 11/15/19 21:00 64 16 87/70 (76) 94 Intake and Output 11/15/19 11/16/19 19:00 07:00 Intake Total 1264.379 ml 1912.851 ml Output Total 1145 ml 1015 ml Balance 119.379 ml 897.851 ml Intake Free Water 120 ml IV Total 544.379 ml 922.851 ml Tube Feeding 720 ml 840 ml Other 30 ml Output Urine Total 1145 ml 1015 ml # Bowel Movements 1 Laboratory Tests 11/16/19 05:36: White Blood Count 7.7, Red Blood Count 3.51L, Hemoglobin 11.8L, Hematocrit 34.5L , Mean Corpuscular Volume 98, Mean Corpuscular Hemoglobin 33.6H, Mean Corpuscular Hemoglobin Concent 34.3, Red Cell Distribution Width 13.4, Platelet Count 211, Mean Platelet Volume 8.4, Neutrophils (%) (Auto) 61.3, Lymphocytes (% ) (Auto) 17.9L, Monocytes (%) (Auto) 10.0, Eosinophils (%) (Auto) 9.9H, Basophils (%) (Auto) 0.9, Sodium Level 137, Potassium Level 4.3, Chloride Level 103, Carbon Dioxide Level 27, Anion Gap 7, Blood Urea Nitrogen 9, Creatinine 0.4L, Estimat Glomerular Filtration Rate > 60, Glucose Level 121H, Calcium Level 9.5 11/16/19 14:10: Vancomycin Level Trough 5.0 Height (Feet): 5 Height (Inches): 3.00 Weight (Pounds): 190 Objective General Appearance: no apparent distress, other - on vent- trach and peg Lines, tubes and drains: peripheral HEENT: normocephalic, atraumatic Neck: supple Respiratory/Chest: lungs clear Cardiovascular/Chest: normal peripheral pulses, normal rate, regular rhythm Abdomen: soft Extremities: normal range of motion, normal inspection, non-pitting Neurologic: alert Bear Nice M.D. Nov 16, 2019 20:43
[2019-11-17] VITALS (50 sets, daily range): BP systolic 66–131; BP diastolic 34–98
--- NOTE | 2019-11-17 00:14 | Progress Note ---
DATE: 11/16/2019 CARDIOLOGY PROGRESS NOTE 11/15/2019 Late Entry. SUBJECTIVE: Sinus bradycardia, on monitor. No pauses. OBJECTIVE: VITAL SIGNS: Blood pressure 106/42, heart rate 53, and respiratory rate 18. Remains on pressor support. LUNGS: Bilateral breath sounds. HEART: Regular rhythm and rate. Normal S1 and S2. ABDOMEN: Soft. EXTREMITIES: No edema. LABORATORY AND IMAGING DATA: White count 8.5 and hemoglobin 12.8. Sodium 138, potassium 4.3, bicarb 25, BUN 9, and creatinine 0.5. Pro-natriuretic peptide 654. Phosphorus 2.6. Chest x-ray, interstitial edema with left effusion. IMPRESSION: 1. Respiratory failure. 2. Sepsis with shock. 3. Polymicrobial pneumonia. 4. Ischemic cardiomyopathy. 5. Acute diastolic congestive heart failure. 6. Quadriplegia. 7. Encephalopathy. 8. Critical and guarded. PLAN: 1. Wean pressors. 2. Continue antimicrobials. 3. Respiratory hygiene. 4. DVT and stress ulcer prophylaxis. 5. Cardiac monitoring. 6. No immediate indication for permanent pacemaker. Herbie Escobar JOB#: [id number] CC:
--- NOTE | 2019-11-17 01:45 | Progress Note ---
DATE: 11/16/2019 CARDIOLOGY PROGRESS NOTE SUBJECTIVE: ongoing respiratory hygiene, in progress and broad-spectrum antimicrobials. Sinus and sinus bradycardia with no pauses, on monitor. Episodes of type 2 first-degree AV block. PHYSICAL EXAMINATION: LUNGS: Scattered rhonchi. CARDIAC: Regular rhythm and rate. Normal S1 and S2. ABDOMEN: Soft. EXTREMITIES: Trace edema. LABORATORY DATA: Sodium 137, potassium 4.3, bicarb 27, BUN 9, and creatinine 0.4. White count is 7.7 and hemoglobin 11.8. IMPRESSION: 1. Remains critical and guarded. 2. Slight progress noted. PLAN: 1. Taper off pressors. 2. Diurese. 3. Antimicrobials. 4. Respiratory hygiene. 5. DVT and stress ulcer prophylaxis. 6. Replace electrolytes as needed. Eder Tenorio M.D. DR: ROSETTE JOB#: [id number] CC:
[2019-11-17] MEDS: DOPamine 400mg/250ml 250 ML IV SCH ×3 (03:40→23:40)
[2019-11-17] MEDS: Vancomycin 750mg/NS 275ml IVPB SCH ×4 (04:38→16:26)
[2019-11-17] MEDS: Phenytoin Susp 100mg/4ml GT SCH ×2 (06:08→18:18)
[2019-11-17] MEDS: NovoLOG Insulin Flexpen SUBQ SCH ×4 (06:08→20:43)
[2019-11-17 06:33] LABS: BASOPHILS % (AUTO) 0.7 % (0.0-2.0); EOSINOPHILS % (AUTO) 9.5 % (0.0-3.0); HEMATOCRIT 37.4 % (37.0-47.0); LYMPHOCYTES % (AUTO) 19.9 % (20.0-45.0); MEAN CORPUSCULAR VOLUME 98 FL (80-99); MONOCYTES % (AUTO) 8.7 % (1.0-10.0); NEUTROPHILS % (AUTO) 61.1 % (45.0-75.0); PLATELET COUNT 217 K/UL (150-450); RED BLOOD COUNT 3.81 M/UL (4.20-5.40); RED CELL DISTRIBUTION WIDTH 13.3 % (11.6-14.8); WHITE BLOOD COUNT 6.6 K/UL (4.8-10.8)
[2019-11-17 06:53] LABS: ALANINE AMINOTRANSFERASE 16 U/L (12-78); ALBUMIN 2.3 G/DL (3.4-5.0); ALBUMIN/GLOBULIN RATIO 0.4 (1.0-2.7); ALKALINE PHOSPHATASE 211 U/L (46-116); ANION GAP 7 mmol/L (5-15); ASPARTATE AMINO TRANSFERASE 22 U/L (15-37); BILIRUBIN,TOTAL 0.3 MG/DL (0.2-1.0); BLOOD UREA NITROGEN 10 mg/dL (7-18); CALCIUM 9.5 MG/DL (8.5-10.1); CARBON DIOXIDE 30 MMOL/L (21-32); CHLORIDE 103 MMOL/L (98-107); CREATININE 0.5 MG/DL (0.55-1.30); POTASSIUM 3.9 MMOL/L (3.5-5.1); SODIUM 140 MMOL/L (136-145)
[2019-11-17] MEDS: Multivitamins W/Minerals 15 ML UDC GT SCH (08:57)
[2019-11-17] MEDS: Ferrous Sulfate 300 MG/5 ML UDC GT SCH ×3 (08:57→18:15)
[2019-11-17] MEDS: Ascorbic Acid 500mg tab NG SCH (08:57)
[2019-11-17] MEDS: Zinc Oxide Oint 2oz TOPIC SCH ×2 (08:57→18:18)
[2019-11-17] MEDS: Docusate 100mg/10ml Liq GT SCH (08:57)
--- NOTE | 2019-11-17 12:00 | Nephrology Progress Note ---
Assessment/Plan Plan # Hypokalemia - improved #Respiratory failure s/p trach # Seizure. 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 Hogan nephrology progress note remains in ICU labs reviewed On vent mag repleted Objective Objective Last 24 Hour Vital Signs Date Time Temp Pulse Resp B/P (MAP) Pulse Ox O2 Delivery O2 Flow Rate FiO2 11/17/19 11:23 76 20 40 11/17/19 11:00 72 19 107/43 (64) 97 11/17/19 11:00 112/43 11/17/19 10:30 81 17 103/44 (63) 96 11/17/19 10:00 110/42 11/17/19 10:00 70 18 110/42 (64) 99 11/17/19 09:30 74 20 111/52 (71) 99 11/17/19 09:20 57 18 40 11/17/19 09:00 97.6 70 19 111/39 (63) 96 11/17/19 09:00 111/39 11/17/19 08:30 65 18 98/43 (61) 99 11/17/19 08:00 40 11/17/19 08:00 67 18 109/62 (78) 97 11/17/19 08:00 Mechanical Ventilator 11/17/19 08:00 109/62 11/17/19 07:30 67 18 111/40 (63) 98 11/17/19 07:08 70 18 40 11/17/19 07:00 74 18 104/43 (63) 100 11/17/19 07:00 111/40 11/17/19 06:30 76 21 115/44 (67) 98 11/17/19 06:00 63 18 101/53 (69) 97 11/17/19 06:00 101/53 11/17/19 05:30 63 18 126/44 (71) 87 11/17/19 05:00 94/45 11/17/19 05:00 65 18 94/45 (61) 98 11/17/19 04:48 55 18 40 11/17/19 04:30 69 18 93/73 (80) 99 11/17/19 04:00 68 11/17/19 04:00 98.5 73 19 110/47 (68) 97 11/17/19 04:00 40 11/17/19 04:00 Mechanical Ventilator 11/17/19 04:00 110/47 11/17/19 03:40 77/56 11/17/19 03:30 92 18 77/56 (63) 98 11/17/19 03:00 82 19 104/50 (68) 99 11/17/19 03:00 104/50 11/17/19 02:44 70 18 40 11/17/19 02:30 76 18 95/45 (62) 98 11/17/19 02:00 74 18 100/46 (64) 98 11/17/19 02:00 100/46 11/17/19 01:35 70 18 40 11/17/19 01:30 77 19 114/59 (77) 95 11/17/19 01:10 73 18 40 11/17/19 01:00 70 18 94/53 (67) 93 11/17/19 01:00 94/53 11/17/19 00:45 69 17 102/45 (64) 96 11/17/19 00:30 75 19 101/51 (68) 93 11/17/19 00:15 71 18 104/51 (68) 93 11/17/19 00:00 98.3 62 18 108/48 (68) 97 11/17/19 00:00 104/51 11/17/19 00:00 72 11/17/19 00:00 40 11/17/19 00:00 Mechanical Ventilator 11/16/19 23:45 60 18 112/71 (85) 97 11/16/19 23:30 77 20 107/45 (65) 98 11/16/19 23:15 83 17 116/47 (70) 98 11/16/19 23:08 81 18 40 11/16/19 23:00 116/47 11/16/19 23:00 80 19 94/39 (57) 97 11/16/19 22:48 92 19 114/92 (99) 93 11/16/19 22:30 92 19 114/92 (99) 93 11/16/19 22:15 76 21 113/59 (77) 97 11/16/19 22:00 55 18 117/56 (76) 96 11/16/19 22:00 117/56 11/16/19 21:45 57 18 142/52 (82) 96 11/16/19 21:30 63 20 126/47 (73) 97 11/16/19 21:23 64 19 106/54 (71) 97 11/16/19 21:15 65 17 62/46 (51) 97 11/16/19 21:00 62/46 11/16/19 21:00 74 18 87/57 (67) 97 11/16/19 20:55 79 18 40 11/16/19 20:45 81 19 94/49 (64) 97 11/16/19 20:30 79 17 98/63 (75) 99 11/16/19 20:15 61 18 96/39 (58) 97 11/16/19 20:00 40 11/16/19 20:00 98.5 72 16 105/60 (75) 97 11/16/19 20:00 Mechanical Ventilator 11/16/19 20:00 105/60 11/16/19 20:00 67 11/16/19 19:45 85 18 79/40 (53) 97 11/16/19 19:30 88 18 89/41 (57) 97 11/16/19 19:15 88 18 89/41 (57) 97 11/16/19 19:00 92 21 93/43 (60) 98 11/16/19 19:00 93/43 11/16/19 18:55 77 22 40 11/16/19 18:00 88 20 127/45 (72) 97 11/16/19 17:29 84 23 40 11/16/19 17:00 98.7 53 18 96/40 (58) 97 11/16/19 16:33 99/43 11/16/19 16:00 40 11/16/19 16:00 87 11/16/19 16:00 Mechanical Ventilator 11/16/19 16:00 83 18 135/54 (81) 98 11/16/19 15:07 67 18 40 11/16/19 15:00 65 18 115/42 (66) 97 11/16/19 14:00 65 18 105/74 (84) 98 11/16/19 13:30 71 21 107/42 (63) 99 11/16/19 13:22 77 20 40 11/16/19 13:00 77 20 115/46 (69) 98 11/16/19 12:30 77 22 108/49 (68) 98 11/16/19 12:00 Mechanical Ventilator 11/16/19 12:00 98.3 77 19 92/71 (78) 96 11/16/19 12:00 40 11/16/19 12:00 58 Intake and Output 11/16/19 11/17/19 19:00 07:00 Intake Total 1514.929 ml 1450.394 ml Output Total 1250 ml 1325 ml Balance 264.929 ml 125.394 ml IV Total 544.929 ml 680.394 ml Tube Feeding 910 ml 770 ml Other 60 ml Output Urine Total 1250 ml 1325 ml # Bowel Movements 2 1 Laboratory Tests 11/16/19 14:10: Vancomycin Level Trough 5.0 11/17/19 05:25: White Blood Count 6.6, Red Blood Count 3.81L, Hemoglobin 13.0, Hematocrit 37.4, Mean Corpuscular Volume 98, Mean Corpuscular Hemoglobin 34.0H, Mean Corpuscular Hemoglobin Concent 34.6, Red Cell Distribution Width 13.3, Platelet Count 217, Mean Platelet Volume 8.4, Neutrophils (%) (Auto) 61.1, Lymphocytes (%) (Auto) 19.9L, Monocytes (%) (Auto) 8.7, Eosinophils (%) (Auto) 9.5H, Basophils (%) ( Auto) 0.7, Sodium Level 140, Potassium Level 3.9, Chloride Level 103, Carbon Dioxide Level 30, Anion Gap 7, Blood Urea Nitrogen 10, Creatinine 0.5L, Estimat Glomerular Filtration Rate > 60, Glucose Level 124H, Calcium Level 9.5, Phosphorus Level 3.5, Magnesium Level 1.6L, Total Bilirubin 0.3, Aspartate Amino Transf (AST/SGOT) 22, Alanine Aminotransferase (ALT/SGPT) 16, Alkaline Phosphatase 211H, Pro-B-Type Natriuretic Peptide 155H, Total Protein 7.9, Albumin 2.3L, Globulin 5.6, Albumin/Globulin Ratio 0.4L Height (Feet): 5 Height (Inches): 3.00 Weight (Pounds): 190 Objective General Appearance: no apparent distress, other - on vent- trach and peg Lines, tubes and drains: peripheral HEENT: normocephalic, atraumatic Neck: supple Respiratory/Chest: lungs clear Cardiovascular/Chest: normal peripheral pulses, normal rate, regular rhythm Abdomen: soft Extremities: normal range of motion, normal inspection, non-pitting Neurologic: alert Bear Nice M.D. Nov 17, 2019 11:59
--- NOTE | 2019-11-17 12:57 | Surgery Progress Note ---
Surgery Progress Note Subjective Additional Comments no acute events ill appearing labs reviewed imaging reviewed Objective Last 24 Hour Vital Signs Date Time Temp Pulse Resp B/P (MAP) Pulse Ox O2 Delivery O2 Flow Rate FiO2 11/17/19 12:30 69 18 112/46 (68) 95 11/17/19 12:00 98.1 77 20 119/49 (72) 98 11/17/19 12:00 40 11/17/19 12:00 112/46 11/17/19 12:00 Mechanical Ventilator 11/17/19 11:30 74 19 120/45 (70) 97 11/17/19 11:23 76 20 40 11/17/19 11:00 72 19 107/43 (64) 97 11/17/19 11:00 112/43 11/17/19 10:30 81 17 103/44 (63) 96 11/17/19 10:00 110/42 11/17/19 10:00 70 18 110/42 (64) 99 11/17/19 09:30 74 20 111/52 (71) 99 11/17/19 09:20 57 18 40 11/17/19 09:00 97.6 70 19 111/39 (63) 96 11/17/19 09:00 111/39 11/17/19 08:30 65 18 98/43 (61) 99 11/17/19 08:00 40 11/17/19 08:00 67 18 109/62 (78) 97 11/17/19 08:00 Mechanical Ventilator 11/17/19 08:00 109/62 11/17/19 07:30 67 18 111/40 (63) 98 11/17/19 07:08 70 18 40 11/17/19 07:00 74 18 104/43 (63) 100 11/17/19 07:00 111/40 11/17/19 06:30 76 21 115/44 (67) 98 11/17/19 06:00 63 18 101/53 (69) 97 11/17/19 06:00 101/53 11/17/19 05:30 63 18 126/44 (71) 87 11/17/19 05:00 94/45 11/17/19 05:00 65 18 94/45 (61) 98 11/17/19 04:48 55 18 40 11/17/19 04:30 69 18 93/73 (80) 99 11/17/19 04:00 68 11/17/19 04:00 98.5 73 19 110/47 (68) 97 11/17/19 04:00 40 11/17/19 04:00 Mechanical Ventilator 11/17/19 04:00 110/47 11/17/19 03:40 77/56 11/17/19 03:30 92 18 77/56 (63) 98 11/17/19 03:00 82 19 104/50 (68) 99 11/17/19 03:00 104/50 11/17/19 02:44 70 18 40 11/17/19 02:30 76 18 95/45 (62) 98 11/17/19 02:00 74 18 100/46 (64) 98 11/17/19 02:00 100/46 11/17/19 01:35 70 18 40 11/17/19 01:30 77 19 114/59 (77) 95 11/17/19 01:10 73 18 40 11/17/19 01:00 70 18 94/53 (67) 93 11/17/19 01:00 94/53 11/17/19 00:45 69 17 102/45 (64) 96 11/17/19 00:30 75 19 101/51 (68) 93 11/17/19 00:15 71 18 104/51 (68) 93 11/17/19 00:00 98.3 62 18 108/48 (68) 97 11/17/19 00:00 104/51 11/17/19 00:00 72 11/17/19 00:00 40 11/17/19 00:00 Mechanical Ventilator 11/16/19 23:45 60 18 112/71 (85) 97 11/16/19 23:30 77 20 107/45 (65) 98 11/16/19 23:15 83 17 116/47 (70) 98 11/16/19 23:08 81 18 40 11/16/19 23:00 116/47 11/16/19 23:00 80 19 94/39 (57) 97 11/16/19 22:48 92 19 114/92 (99) 93 11/16/19 22:30 92 19 114/92 (99) 93 11/16/19 22:15 76 21 113/59 (77) 97 11/16/19 22:00 55 18 117/56 (76) 96 11/16/19 22:00 117/56 11/16/19 21:45 57 18 142/52 (82) 96 11/16/19 21:30 63 20 126/47 (73) 97 11/16/19 21:23 64 19 106/54 (71) 97 11/16/19 21:15 65 17 62/46 (51) 97 11/16/19 21:00 62/46 11/16/19 21:00 74 18 87/57 (67) 97 11/16/19 20:55 79 18 40 11/16/19 20:45 81 19 94/49 (64) 97 11/16/19 20:30 79 17 98/63 (75) 99 11/16/19 20:15 61 18 96/39 (58) 97 11/16/19 20:00 40 11/16/19 20:00 98.5 72 16 105/60 (75) 97 11/16/19 20:00 Mechanical Ventilator 11/16/19 20:00 105/60 11/16/19 20:00 67 11/16/19 19:45 85 18 79/40 (53) 97 11/16/19 19:30 88 18 89/41 (57) 97 11/16/19 19:15 88 18 89/41 (57) 97 11/16/19 19:00 92 21 93/43 (60) 98 11/16/19 19:00 93/43 11/16/19 18:55 77 22 40 11/16/19 18:00 88 20 127/45 (72) 97 11/16/19 17:29 84 23 40 11/16/19 17:00 98.7 53 18 96/40 (58) 97 11/16/19 16:33 99/43 11/16/19 16:00 40 11/16/19 16:00 87 11/16/19 16:00 Mechanical Ventilator 11/16/19 16:00 83 18 135/54 (81) 98 11/16/19 15:07 67 18 40 11/16/19 15:00 65 18 115/42 (66) 97 11/16/19 14:00 65 18 105/74 (84) 98 11/16/19 13:30 71 21 107/42 (63) 99 3/14/20 13:22 77 20 40 11/16/19 13:00 77 20 115/46 (69) 98 I&O Intake and Output 11/16/19 11/17/19 19:00 07:00 Intake Total 1514.929 ml 1450.394 ml Output Total 1250 ml 1325 ml Balance 264.929 ml 125.394 ml IV Total 544.929 ml 680.394 ml Tube Feeding 910 ml 770 ml Other 60 ml Output Urine Total 1250 ml 1325 ml # Bowel Movements 2 1 Dressing: saturated Wound: other Drains: other Cardiovascular: RSR Respiratory: decreased breath sounds Abdomen: soft, non-tender, non-distended, decreased bowel sounds Extremities: no cyanosis Laboratory Tests Test 11/16/19 14:10 11/17/19 05:25 Vancomycin Level Trough 5.0 ug/mL (5.0-12.0) White Blood Count 6.6 K/UL (4.8-10.8) Red Blood Count 3.81 M/UL (4.20-5.40) L Hemoglobin 13.0 G/DL (12.0-16.0) Hematocrit 37.4 % (37.0-47.0) Mean Corpuscular Volume 98 FL (80-99) Mean Corpuscular Hemoglobin 34.0 PG (27.0-31.0) H Mean Corpuscular Hemoglobin Concent 34.6 G/DL (32.0-36.0) Red Cell Distribution Width 13.3 % (11.6-14.8) Platelet Count 217 K/UL (150-450) Mean Platelet Volume 8.4 FL (6.5-10.1) Neutrophils (%) (Auto) 61.1 % (45.0-75.0) Lymphocytes (%) (Auto) 19.9 % (20.0-45.0) L Monocytes (%) (Auto) 8.7 % (1.0-10.0) Eosinophils (%) (Auto) 9.5 % (0.0-3.0) H Basophils (%) (Auto) 0.7 % (0.0-2.0) Sodium Level 140 MMOL/L (136-145) Potassium Level 3.9 MMOL/L (3.5-5.1) Chloride Level 103 MMOL/L (98-107) Carbon Dioxide Level 30 MMOL/L (21-32) Anion Gap 7 mmol/L (5-15) Blood Urea Nitrogen 10 mg/dL (7-18) Creatinine 0.5 MG/DL (0.55-1.30) L Estimat Glomerular Filtration Rate > 60 mL/min (>60) Glucose Level 124 MG/DL (74-106) H Calcium Level 9.5 MG/DL (8.5-10.1) Phosphorus Level 3.5 MG/DL (2.5-4.9) Magnesium Level 1.6 MG/DL (1.8-2.4) L Total Bilirubin 0.3 MG/DL (0.2-1.0) Aspartate Amino Transf (AST/SGOT) 22 U/L (15-37) Alanine Aminotransferase (ALT/SGPT) 16 U/L (12-78) Alkaline Phosphatase 211 U/L (46-116) H Pro-B-Type Natriuretic Peptide 155 pg/mL (0-125) H Total Protein 7.9 G/DL (6.4-8.2) Albumin 2.3 G/DL (3.4-5.0) L Globulin 5.6 g/dL Albumin/Globulin Ratio 0.4 (1.0-2.7) L Plan Problems: (1) Decubitus skin ulcer Assessment & Plan: Pt presented on admission with resolving pressure injury R side to posterior aspect of neck. Base of wound is moist with pink epithelial. Mild odor noted (L)1.5cm x (W)6cm. Partial thickness stage 2 pressure injury in close proximity R side neck. Base of wound is moist and viable(L)0.7cm x (W) 0.8cm. Small amt serosanguineous exudate noted. Moist pink epithelial L side to posterior aspect of neck(L)5cm x (W)16.5cm. Within base of wound is a full thickness stage 3 pressure injury L side neck under tracheal collar. Base of wound is moist ,wan with macerated borders.(L)0.9cm x (W)2cm x (D)0.6cmSmall amt serous exudate noted. Mild odor noted. Erosion noted at GT site . Scattered areas of hyperpigmentation noted to R and L buttocks and both ischial tuberosities. Non-blanching erythema without induration noted to Sacrum. L heel Is boggy with an area of non-blanching erythema with delineated margins. R heel is soft but blanchable. Tx.Plan: Apply Zinc Oxide Paste 20% to Epithelial areas around neck Twice Daily.Place Abd pads under tracheal collar . Cleanse Wound L side of neck with Saline. Apply TheraHoney. Apply Zinc Oxide Paste periwound. Cover with Optifoam drsg Daily and prn. Apply Moisture Barrier Paste to sacrum. Cover with Optifoam drsg. Change every 3 days and prn. Apply Cavilon Skin Barrier to both heels. Cover each heel with Optifoam drsg. Change every 7 days and prn. APM/LUIGI Mattress overlay. Reposition at least every 2 hours or as tolerated. Off- Load heels with pillow. (2) Recurrent seizures Assessment & Plan: As per neurology No injury identified Rx is written (3) Feeding by G-tube Assessment & Plan: DAILY ESTIMATED NEEDS: Needs based on Obese, critical care, wound healing 65.8kg abw 22-28 kcals/kg 9935-3434 total kcals 1.25-2 g protein/kg 82-131 g total protein 25-30 mL/kg 6330-6116 total fluid mLs NUTRITION DIAGNOSIS: 1) Swallowing difficulty R/T respiratory status as evidenced by pt trach-vent dep, GT dep 2) Increased kcal/prot needs R/T wound healing as evidenced by pt admitted w/ multiple wounds including full thickness pressure injury at L side neck under tracheal collar and partial thickness pressure injurty in close proximity to R side neck CURRENT TF:TF HELD: Jevity 1.2 @ 75ml/hr x 18 hrs ENTERAL NUTRITION RECOMMENDATIONS: Glucerna 1.2 @ 70ml/hr x 20 hrs (TF HELD FOR DILANTIN AND SYNTHROID) to provide 1200ml, 1440kcal, 67g prot, 968ml free water * FEED W/ HEMODYNAMIC STABLITY -> rec TF change to Glucerna 1.2 (h/o DM) -> Initiate Glucerna 1.2 @ 20ml/hr x 6 hrs -> advance 10ml q 4-6 hrs as tolerated to goal rate -> HOLD TF 1 HR BEFORE AND AFTER DILANTIN BID AND SYNTHROID QD (AM Dilantin and Synthroid given at the same time) -> Water flush per MD/ HOB over 30 degrees ADDITIONAL RECOMMENDATIONS: * Calibrated bed scale weights for accurate CBW (w/ added P200 mattress) * Wound healing: Continue Vit C/ add Contreras 1pkt BID via PEG * Monitor HD stability: on Dopamine * TF to run max 20 hrs w/ Dilantin BID + Synthroid QD (See above TF rec) * Monitor lytes daily w/ TF, replete as needed . (4) G-tube site cellulitis Assessment & Plan: as above (5) Abnormal LFTs Assessment & Plan: nondistended gallbladder with gallstones. Apparent gallbladder wall thickening, probably artifact of under distention but raises the possibility of acute cholecystitis. Consider nuclear medicine hepatobiliary scan if there is high clinical suspicion Negative for dilated bile ducts Echogenic foci in the left renal sinus, could represent nonobstructive calculi within the be artifactual given lack of evidence of such on prior CT scan Incidental findings left lower pole renal cyst, dystrophic right right lobe liver calcification Note incomplete visualization of portions of the abdominal aorta Heath Martell Nov 17, 2019 12:57
[2019-11-17] MEDS ORDERED: Tubing IV Secondary IV ONE (14:11)
[2019-11-17] MEDS ORDERED: NS 275ml ONE (14:11)
--- NOTE | 2019-11-17 18:10 | Infectious Diseases Prog Note ---
Assessment/Plan Assessment/Plan ASSESSMENT AND PLAN: 1. esbl e.coli uti, streptococcus/proteus/providencia pna, ? 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 The patient has history of trach, vent, and respiratory failure. 3. History of sepsis. 4. Quadriplegia and weakness. 5. History of CAD and STEMI, CHF 6. Hypertension. 7. Diabetes. 8. Blood sugar and blood pressure treatment per primary team for diabetes and hypertension. 9. Dementia. 10. Seizure history. 11. Chronic obstructive pulmonary disease. 12. History of diverticulosis. 13. Quadriplegia. 14. Encephalopathy. 15. Continue treatment per primary consultants. 16. Allergic to peanuts. 17. Social history is negative. 18. Family history is noncontributory. 19. MAR is noted. 20. Case was discussed with RN. Subjective Constitutional: Reports: fatigue, other; Denies: fever HEENT: Reports: congestion Respiratory: Reports: shortness of breath, other - + trach and vent Cardiovascular: Reports: other - + pressors Gastrointestinal/Abdominal: Reports: diarrhea, other - + rectal tube ; Denies: nausea, vomiting Genitourinary: Reports: other - + gould - urine clear Neurologic: Denies: headache Psychiatric: Denies: depression Skin: Denies: rash Hematologic: Denies: bleeding Musculoskeletal: Denies: pain Allergies: Coded Allergies: PEANUT (Verified Allergy, Unknown, 09/22/16) Uncoded Allergies: PEANUTS (Allergy, Unknown, 02/04/19) Objective Vital Signs Last 24 Hour Vital Signs Date Time Temp Pulse Resp B/P (MAP) Pulse Ox O2 Delivery O2 Flow Rate FiO2 11/17/19 17:00 109/53 11/17/19 17:00 77 21 109/53 (71) 98 11/17/19 16:30 75 17 107/52 (70) 93 11/17/19 16:00 Mechanical Ventilator 11/17/19 16:00 40 11/17/19 16:00 109/48 11/17/19 16:00 98.3 78 19 109/48 (68) 95 11/17/19 15:30 60 18 111/41 (64) 96 11/17/19 15:11 67 20 40 11/17/19 15:00 77 21 103/45 (64) 95 11/17/19 15:00 103/45 11/17/19 14:30 73 21 107/47 (67) 97 11/17/19 14:00 115/47 11/17/19 14:00 68 20 115/47 (69) 95 11/17/19 13:30 80/36 11/17/19 13:30 76 19 97/44 (61) 98 11/17/19 13:14 61 18 40 11/17/19 13:00 73 20 120/43 (68) 98 11/17/19 13:00 120/43 11/17/19 12:30 69 18 112/46 (68) 95 11/17/19 12:00 98.1 77 20 119/49 (72) 98 11/17/19 12:00 40 11/17/19 12:00 112/46 11/17/19 12:00 66 11/17/19 12:00 Mechanical Ventilator 11/17/19 11:30 74 19 120/45 (70) 97 11/17/19 11:23 76 20 40 11/17/19 11:00 72 19 107/43 (64) 97 11/17/19 11:00 112/43 11/17/19 10:30 81 17 103/44 (63) 96 11/17/19 10:00 110/42 11/17/19 10:00 70 18 110/42 (64) 99 11/17/19 09:30 74 20 111/52 (71) 99 11/17/19 09:20 57 18 40 11/17/19 09:00 97.6 70 19 111/39 (63) 96 11/17/19 09:00 111/39 11/17/19 08:30 65 18 98/43 (61) 99 11/17/19 08:00 40 11/17/19 08:00 67 18 109/62 (78) 97 11/17/19 08:00 Mechanical Ventilator 11/17/19 08:00 109/62 11/17/19 08:00 66 11/17/19 07:30 67 18 111/40 (63) 98 11/17/19 07:08 70 18 40 3/15/20 07:00 74 18 104/43 (63) 100 11/17/19 07:00 111/40 11/17/19 06:30 76 21 115/44 (67) 98 11/17/19 06:00 63 18 101/53 (69) 97 11/17/19 06:00 101/53 11/17/19 05:30 63 18 126/44 (71) 87 11/17/19 05:00 94/45 11/17/19 05:00 65 18 94/45 (61) 98 11/17/19 04:48 55 18 40 11/17/19 04:30 69 18 93/73 (80) 99 11/17/19 04:00 68 11/17/19 04:00 98.5 73 19 110/47 (68) 97 11/17/19 04:00 40 11/17/19 04:00 Mechanical Ventilator 11/17/19 04:00 110/47 11/17/19 03:40 77/56 11/17/19 03:30 92 18 77/56 (63) 98 11/17/19 03:00 82 19 104/50 (68) 99 11/17/19 03:00 104/50 11/17/19 02:44 70 18 40 11/17/19 02:30 76 18 95/45 (62) 98 11/17/19 02:00 74 18 100/46 (64) 98 11/17/19 02:00 100/46 11/17/19 01:35 70 18 40 11/17/19 01:30 77 19 114/59 (77) 95 11/17/19 01:10 73 18 40 11/17/19 01:00 70 18 94/53 (67) 93 11/17/19 01:00 94/53 11/17/19 00:45 69 17 102/45 (64) 96 11/17/19 00:30 75 19 101/51 (68) 93 11/17/19 00:15 71 18 104/51 (68) 93 11/17/19 00:00 98.3 62 18 108/48 (68) 97 11/17/19 00:00 104/51 11/17/19 00:00 72 11/17/19 00:00 40 11/17/19 00:00 Mechanical Ventilator 11/16/19 23:45 60 18 112/71 (85) 97 11/16/19 23:30 77 20 107/45 (65) 98 11/16/19 23:15 83 17 116/47 (70) 98 11/16/19 23:08 81 18 40 11/16/19 23:00 116/47 11/16/19 23:00 80 19 94/39 (57) 97 11/16/19 22:48 92 19 114/92 (99) 93 11/16/19 22:30 92 19 114/92 (99) 93 11/16/19 22:15 76 21 113/59 (77) 97 11/16/19 22:00 55 18 117/56 (76) 96 11/16/19 22:00 117/56 11/16/19 21:45 57 18 142/52 (82) 96 11/16/19 21:30 63 20 126/47 (73) 97 11/16/19 21:23 64 19 106/54 (71) 97 11/16/19 21:15 65 17 62/46 (51) 97 11/16/19 21:00 62/46 11/16/19 21:00 74 18 87/57 (67) 97 11/16/19 20:55 79 18 40 11/16/19 20:45 81 19 94/49 (64) 97 11/16/19 20:30 79 17 98/63 (75) 99 11/16/19 20:15 61 18 96/39 (58) 97 11/16/19 20:00 40 11/16/19 20:00 98.5 72 16 105/60 (75) 97 11/16/19 20:00 Mechanical Ventilator 11/16/19 20:00 105/60 11/16/19 20:00 67 11/16/19 19:45 85 18 79/40 (53) 97 11/16/19 19:30 88 18 89/41 (57) 97 11/16/19 19:15 88 18 89/41 (57) 97 11/16/19 19:00 92 21 93/43 (60) 98 11/16/19 19:00 93/43 11/16/19 18:55 77 22 40 11/16/19 18:00 88 20 127/45 (72) 97 Height (Feet): 5 Height (Inches): 3.00 Weight (Pounds): 190 General Appearance: no acute distress HEENT: normocephalic, atraumatic, anicteric, mucous membranes moist, no JVD Respiratory/Chest: crackles/rales, rhonchi - bilaterally Cardiovascular: normal rate, regular rhythm, no gallop/murmur, no JVD Abdomen: normal bowel sounds, soft, non tender, no organomegaly, non distended Genitourinary: other - + gould - urine clear Extremities: no cyanosis Skin: no rash Neurologic/Psychiatric: vp marketing II-XII grossly normal, responsive Lymphatic: no neck adenopathy Musculoskeletal: no effusion Objective Chest x-ray - 11/12/19 - Impression: Slightly increased airspace disease at the right lung base, may reflect increase infiltrates versus edema. Background mostly interstitial disease is unchanged, over one day Abdominal US: Impression: Nondistended gallbladder with gallstones. Apparent gallbladder wall thickening, probably artifact of under distention but raises the possibility of acute cholecystitis. Consider nuclear medicine hepatobiliary scan if there is high clinical suspicion Negative for dilated bile ducts Chest x-ray - 11/15/19 - Procedure: XRAY Chest 1v Indication: Dyspnea Comparison: 11/12/2019 A single view chest radiograph was obtained. Findings: Interstitial and vascular prominence demonstrated with cardiomegaly. The left costophrenic angle is obscured but this is chronic. There is a tracheostomy again noted. IMPRESSION: No significant change. Suspected interstitial edema. Possible left pleural effusion Microbiology Date/Time Source Procedure Growth Status 11/13/19 19:35 Blood Blood Culture - Preliminary NO GROWTH AFTER 72 HOURS Resulted 11/11/19 10:20 Nasal Nares MRSA Culture - Final NO METHICILLIN RESISTANT STAPH AUREUS... Complete 11/12/19 20:00 Stool Clostridium difficile Toxin Assay - Final Complete 11/11/19 09:14 Urine,Clean Catch Urine Culture - Final Escherichia Coli - Esbl Complete 11/11/19 10:20 Rectum - Final NO CARBAPENEM-RESISTANT ENTEROBACTERI... Complete Laboratory Tests Test 11/17/19 05:25 White Blood Count 6.6 K/UL (4.8-10.8) Red Blood Count 3.81 M/UL (4.20-5.40) L Hemoglobin 13.0 G/DL (12.0-16.0) Hematocrit 37.4 % (37.0-47.0) Mean Corpuscular Volume 98 FL (80-99) Mean Corpuscular Hemoglobin 34.0 PG (27.0-31.0) H Mean Corpuscular Hemoglobin Concent 34.6 G/DL (32.0-36.0) Red Cell Distribution Width 13.3 % (11.6-14.8) Platelet Count 217 K/UL (150-450) Mean Platelet Volume 8.4 FL (6.5-10.1) Neutrophils (%) (Auto) 61.1 % (45.0-75.0) Lymphocytes (%) (Auto) 19.9 % (20.0-45.0) L Monocytes (%) (Auto) 8.7 % (1.0-10.0) Eosinophils (%) (Auto) 9.5 % (0.0-3.0) H Basophils (%) (Auto) 0.7 % (0.0-2.0) Sodium Level 140 MMOL/L (136-145) Potassium Level 3.9 MMOL/L (3.5-5.1) Chloride Level 103 MMOL/L (98-107) Carbon Dioxide Level 30 MMOL/L (21-32) Anion Gap 7 mmol/L (5-15) Blood Urea Nitrogen 10 mg/dL (7-18) Creatinine 0.5 MG/DL (0.55-1.30) L Estimat Glomerular Filtration Rate > 60 mL/min (>60) Glucose Level 124 MG/DL (74-106) H Calcium Level 9.5 MG/DL (8.5-10.1) Phosphorus Level 3.5 MG/DL (2.5-4.9) Magnesium Level 1.6 MG/DL (1.8-2.4) L Total Bilirubin 0.3 MG/DL (0.2-1.0) Aspartate Amino Transf (AST/SGOT) 22 U/L (15-37) Alanine Aminotransferase (ALT/SGPT) 16 U/L (12-78) Alkaline Phosphatase 211 U/L (46-116) H Pro-B-Type Natriuretic Peptide 155 pg/mL (0-125) H Total Protein 7.9 G/DL (6.4-8.2) Albumin 2.3 G/DL (3.4-5.0) L Globulin 5.6 g/dL Albumin/Globulin Ratio 0.4 (1.0-2.7) L Current Medications Medications (Trade) Dose Ordered Sig/Boubacar Route PRN Reason Start Time Stop Time Status Last Admin Dose Admin Acetaminophen (Tylenol) 650 mg Q6H PRN GT Mild Pain/Temp > 100.5 11/11/19 14:30 12/11/19 14:29 Ascorbic Acid (Vitamin C) 500 mg DAILY NG 11/12/19 09:00 12/12/19 08:59 11/17/19 08:57 Chlorhexidine Gluconate ([place]-Hex 2%) 1 applic DAILY@2000 TOPIC 11/13/19 20:00 12/13/19 19:59 11/16/19 20:03 Dextrose (Dextrose 50%) 25 ml Q30M PRN IV Hypoglycemia 11/11/19 20:30 12/11/19 20:29 Dextrose (Dextrose 50%) 50 ml Q30M PRN IV Hypoglycemia 11/11/19 20:30 12/11/19 20:29 Docusate Sodium (Colace) 100 mg DAILY GT 11/12/19 09:00 12/12/19 08:59 11/16/19 09:17 Dopamine HCl/ Dextrose 250 ml @ 0 mls/hr Q24H IV 11/11/19 23:00 12/11/19 22:59 11/17/19 13:30 Ferrous Sulfate (Feosol) 300 mg THREE TIMES A DAY GT 11/11/19 18:00 12/11/19 17:59 11/17/19 12:22 Insulin Aspart (NovoLOG) BEFORE MEALS AND HS SUBQ 11/11/19 22:00 12/11/19 21:59 Levothyroxine Sodium (Synthroid) 150 mcg DAILY@0630 GT 11/12/19 06:30 12/12/19 06:29 11/17/19 06:08 Meropenem 1 gm/ Sodium Chloride 100 ml @ 200 mls/hr Q8HR IVPB 11/17/19 14:00 11/25/19 19:59 11/17/19 13:30 Multivitamins (Multivitamins W/ Minerals 15ml Liquid) 15 ml DAILY GT 11/12/19 09:00 12/12/19 08:59 11/17/19 08:57 Ondansetron HCl (Zofran) 4 mg Q6H PRN IVP Nausea & Vomiting 11/12/19 03:00 12/12/19 02:59 11/12/19 03:48 Phenytoin (Dilantin) 250 mg Q12HR@0630,1830 GT 11/12/19 18:30 12/12/19 18:29 11/17/19 06:08 Vancomycin HCl (Vanco rx to dose) 1 ea DAILY PRN MISC Per rx protocol 11/12/19 13:30 12/12/19 13:29 Vancomycin HCl 750 mg/Sodium Chloride 275 ml @ 183.333 mls/hr Q12H IVPB 11/17/19 04:00 11/22/19 03:59 11/17/19 16:26 Zinc Oxide (Zinc Oxide) 1 applic BID TOPIC 11/12/19 10:00 12/12/19 09:59 11/17/19 08:57 Leslie Corrales MD Nov 17, 2019 18:10
[2019-11-17] MEDS: Dyna-Hex 2% Top Sol 2oz TOPIC SCH (20:41)
[2019-11-18] VITALS (61 sets, daily range): BP systolic 89–155; BP diastolic 34–119
[2019-11-18] MEDS: Vancomycin 750mg/NS 275ml IVPB SCH ×4 (04:16→16:58)
[2019-11-18 05:19] LABS: BASOPHILS % (AUTO) 0.9 % (0.0-2.0); EOSINOPHILS % (AUTO) 5.8 % (0.0-3.0); HEMATOCRIT 36.2 % (37.0-47.0); HEMOGLOBIN 12.3 G/DL (12.0-16.0); LYMPHOCYTES % (AUTO) 20.8 % (20.0-45.0); MEAN CORPUSCULAR VOLUME 98 FL (80-99); MONOCYTES % (AUTO) 8.8 % (1.0-10.0); NEUTROPHILS % (AUTO) 63.8 % (45.0-75.0); PLATELET COUNT 221 K/UL (150-450); RED BLOOD COUNT 3.71 M/UL (4.20-5.40); RED CELL DISTRIBUTION WIDTH 13.3 % (11.6-14.8); WHITE BLOOD COUNT 6.4 K/UL (4.8-10.8)
[2019-11-18] MEDS: NovoLOG Insulin Flexpen SUBQ SCH ×4 (05:28→21:00)
--- NOTE | 2019-11-18 05:30 | Progress Note ---
DATE: 11/17/2019 CARDIOLOGY PROGRESS NOTE SUBJECTIVE: Monitored rhythm continues to have episodes of second-degree type 1 AV block. There have been rare episodes of AV dissociation versus 2 to 1 AV block. Blood pressures remained tenuous, but improving. The patient remains on pressors. OBJECTIVE: VITAL SIGNS: Blood pressure 107/43, pulse 72, respiratory rate 19. LUNGS: Clear. CARDIAC: Regular rhythm and rate. Normal S1 and S2. ABDOMEN: Soft. EXTREMITIES: No edema. LABORATORY DATA: White count 6.6 and hemoglobin 13. Sodium 140 and potassium 3.9. Natriuretic peptide 155. Bicarb 30, BUN 10, creatinine 0.5, magnesium 1.6, and albumin 2.3. IMPRESSION: 1. Healthcare-acquired pneumonia. 2. Sepsis with shock recovered. 3. Urinary tract infection with ESBL Escherichia coli. 4. Hypovolemia. 5. Hypomagnesemia. 6. Advanced conduction system disease. 7. Second-degree AV block. PLAN: 1. No emergent indication for permanent pacemaker. 2. Intravenous magnesium replacement. 3. Taper off dopamine. 4. Antimicrobials. 5. Thyroid replacement. 6. DVT prophylaxis. Eder Tenorio M.D. DR: AWAIS JOB#: [id number] CC:
[2019-11-18] MEDS: Phenytoin Susp 100mg/4ml GT SCH ×2 (05:32→17:30)
[2019-11-18 05:52] LABS: ALANINE AMINOTRANSFERASE 20 U/L (12-78); ALBUMIN/GLOBULIN RATIO 0.4 (1.0-2.7); ALKALINE PHOSPHATASE 194 U/L (46-116); ANION GAP 8 mmol/L (5-15); ASPARTATE AMINO TRANSFERASE 18 U/L (15-37); BILIRUBIN,TOTAL 0.2 MG/DL (0.2-1.0); BLOOD UREA NITROGEN 12 mg/dL (7-18); CALCIUM 9.3 MG/DL (8.5-10.1); CARBON DIOXIDE 27 MMOL/L (21-32); CHLORIDE 103 MMOL/L (98-107); CREATININE 0.5 MG/DL (0.55-1.30); PHOSPHORUS 3.3 MG/DL (2.5-4.9); POTASSIUM 4.2 MMOL/L (3.5-5.1); SODIUM 138 MMOL/L (136-145)
[2019-11-18] MEDS: Docusate 100mg/10ml Liq GT SCH (09:06)
[2019-11-18] MEDS: Multivitamins W/Minerals 15 ML UDC GT SCH (09:06)
[2019-11-18] MEDS: Ferrous Sulfate 300 MG/5 ML UDC GT SCH ×3 (09:06→17:02)
[2019-11-18] MEDS: Ascorbic Acid 500mg tab NG SCH (09:06)
[2019-11-18] MEDS: Zinc Oxide Oint 2oz TOPIC SCH ×2 (09:07→17:08)
[2019-11-18] MEDS: DOPamine 400mg/250ml 250 ML IV SCH ×2 (10:04→21:40)
--- NOTE | 2019-11-18 11:59 | Pulmonology Progress Note ---
Assessment/Plan Assessment/Plan IMPRESSION: 1. Supratherapeutic Dilantin level. 2. Questionable seizure. 3. UTI. 4. Chronic respiratory failure. 5. Septic shock. 6. Bradycardia DISCUSSION: Seen by cardiology and ID. Continue vent. Continue present medications care. I will follow carefully. May need PPM Will discuss with cardiology Grabiel Hogan M.D. Subjective Interval Events: No new events Constitutional: Reports: no symptoms HEENT: Repors: no symptoms Respiratory: Reports: no symptoms Cardiovascular: Reports: no symptoms Gastrointestinal/Abdominal: Reports: no symptoms Genitourinary: Reports: no symptoms Allergies: Coded Allergies: PEANUT (Verified Allergy, Unknown, 09/22/16) Uncoded Allergies: PEANUTS (Allergy, Unknown, 02/04/19) Objective Last 24 Hour Vital Signs Date Time Temp Pulse Resp B/P (MAP) Pulse Ox O2 Delivery O2 Flow Rate FiO2 11/18/19 11:00 65 18 101/47 (65) 99 11/18/19 10:52 70 16 40 11/18/19 10:30 83 19 143/48 (79) 95 11/18/19 10:04 116/45 11/18/19 10:00 62 18 116/45 (68) 97 11/18/19 09:27 67 14 40 11/18/19 09:00 69 18 105/47 (66) 96 11/18/19 08:00 68 11/18/19 08:00 Mechanical Ventilator Mechanical Ventilator 11/18/19 08:00 40 11/18/19 08:00 98.2 68 17 103/49 (67) 89 11/18/19 07:45 57 18 100/45 (63) 97 11/18/19 07:30 71 17 94/55 (68) 99 11/18/19 07:14 77 22 40 11/18/19 07:00 71 18 99/53 (68) 100 11/18/19 07:00 99/53 11/18/19 06:30 63 18 102/54 (70) 100 11/18/19 06:15 73 17 134/119 (124) 99 11/18/19 06:00 64 18 100/41 (60) 98 11/18/19 06:00 100/41 11/18/19 05:45 70 17 89/64 (72) 96 11/18/19 05:30 67 18 100/50 (67) 97 11/18/19 05:24 68 20 40 11/18/19 05:00 107/70 11/18/19 05:00 67 18 100/50 (67) 97 11/18/19 04:30 62 18 90/47 (61) 98 11/18/19 04:15 63 17 100/70 (80) 99 11/18/19 04:00 98.7 61 18 99/50 (66) 97 11/18/19 04:00 99/50 11/18/19 04:00 Mechanical Ventilator 11/18/19 04:00 40 11/18/19 04:00 80 11/18/19 03:30 70 16 92/42 (59) 96 11/18/19 03:05 61 19 40 11/18/19 03:00 45 18 123/43 (69) 97 11/18/19 03:00 123/43 11/18/19 02:30 45 18 129/45 (73) 98 11/18/19 02:00 128/44 11/18/19 02:00 46 18 128/44 (72) 98 11/18/19 01:30 45 18 139/71 (93) 98 11/18/19 01:13 60 19 40 11/18/19 01:00 53 20 146/55 (85) 99 11/18/19 01:00 146/55 11/18/19 00:30 42 18 155/45 (81) 98 11/18/19 00:15 47 18 127/39 (68) 99 11/18/19 00:00 40 11/18/19 00:00 98.6 50 19 123/46 (71) 98 11/18/19 00:00 Mechanical Ventilator 11/18/19 00:00 80 11/18/19 00:00 123/46 11/17/19 23:45 66 21 114/49 (70) 97 11/17/19 23:40 80/30 11/17/19 23:30 94 19 66/34 (45) 98 11/17/19 23:20 81 22 40 11/17/19 23:00 116/53 3/15/20 23:00 64 20 116/53 (74) 97 11/17/19 22:30 70 19 125/53 (77) 99 11/17/19 22:00 131/52 11/17/19 22:00 81 19 131/52 (78) 98 11/17/19 21:30 74 21 122/54 (76) 100 11/17/19 21:09 66 19 40 11/17/19 21:00 66 19 97/58 (71) 100 11/17/19 21:00 97/58 11/17/19 20:30 61 18 111/50 (70) 97 11/17/19 20:00 70 11/17/19 20:00 67 18 115/50 (71) 99 11/17/19 20:00 Mechanical Ventilator 11/17/19 20:00 115/50 11/17/19 20:00 40 11/17/19 19:30 70 18 99/46 (63) 97 11/17/19 19:11 70 20 40 11/17/19 19:00 65 19 120/98 (105) 97 11/17/19 19:00 111/48 11/17/19 18:00 128/50 11/17/19 18:00 62 18 128/50 (76) 99 11/17/19 17:30 70 18 109/46 (67) 99 11/17/19 17:00 67 20 40 11/17/19 17:00 109/53 11/17/19 17:00 77 21 109/53 (71) 98 11/17/19 16:30 75 17 107/52 (70) 93 11/17/19 16:00 Mechanical Ventilator 11/17/19 16:00 66 11/17/19 16:00 40 11/17/19 16:00 109/48 11/17/19 16:00 98.3 78 19 109/48 (68) 95 11/17/19 15:30 60 18 111/41 (64) 96 11/17/19 15:11 67 20 40 11/17/19 15:00 77 21 103/45 (64) 95 11/17/19 15:00 103/45 11/17/19 14:30 73 21 107/47 (67) 97 11/17/19 14:00 115/47 11/17/19 14:00 68 20 115/47 (69) 95 11/17/19 13:30 80/36 11/17/19 13:30 76 19 97/44 (61) 98 11/17/19 13:14 61 18 40 11/17/19 13:00 73 20 120/43 (68) 98 11/17/19 13:00 120/43 11/17/19 12:30 69 18 112/46 (68) 95 11/17/19 12:00 98.1 77 20 119/49 (72) 98 11/17/19 12:00 40 11/17/19 12:00 112/46 11/17/19 12:00 66 11/17/19 12:00 Mechanical Ventilator Intake and Output 11/17/19 11/18/19 19:00 07:00 Intake Total 1826.892 ml 1493.896 ml Output Total 1100 ml 875 ml Balance 726.892 ml 618.896 ml Intake Free Water 20 ml IV Total 986.892 ml 773.896 ml Tube Feeding 840 ml 700 ml Output Urine Total 950 ml 875 ml Stool Total 150 ml # Bowel Movements 100 General Appearance: no acute distress HEENT: normocephalic Respiratory/Chest: chest wall non-tender Cardiovascular: normal peripheral pulses Abdomen: normal bowel sounds Laboratory Tests 11/18/19 04:10: White Blood Count 6.4, Red Blood Count 3.71L, Hemoglobin 12.3, Hematocrit 36.2L , Mean Corpuscular Volume 98, Mean Corpuscular Hemoglobin 33.3H, Mean Corpuscular Hemoglobin Concent 34.1, Red Cell Distribution Width 13.3, Platelet Count 221, Mean Platelet Volume 8.4, Neutrophils (%) (Auto) 63.8, Lymphocytes (% ) (Auto) 20.8, Monocytes (%) (Auto) 8.8, Eosinophils (%) (Auto) 5.8H, Basophils (%) (Auto) 0.9, Sodium Level 138, Potassium Level 4.2, Chloride Level 103, Carbon Dioxide Level 27, Anion Gap 8, Blood Urea Nitrogen 12, Creatinine 0.5L, Estimat Glomerular Filtration Rate > 60, Glucose Level 128H, Calcium Level 9.3, Phosphorus Level 3.3, Magnesium Level 1.9, Total Bilirubin 0.2, Aspartate Amino Transf (AST/SGOT) 18, Alanine Aminotransferase (ALT/SGPT) 20, Alkaline Phosphatase 194H, Total Protein 7.3, Albumin 2.0L, Globulin 5.3, Albumin/ Globulin Ratio 0.4L Current Medications Medications (Trade) Dose Ordered Sig/Boubacar Route PRN Reason Start Time Stop Time Status Last Admin Dose Admin Acetaminophen (Tylenol) 650 mg Q6H PRN GT Mild Pain/Temp > 100.5 11/11/19 14:30 12/11/19 14:29 Ascorbic Acid (Vitamin C) 500 mg DAILY NG 11/12/19 09:00 12/12/19 08:59 11/18/19 09:06 Chlorhexidine Gluconate ([place]-Hex 2%) 1 applic DAILY@2000 TOPIC 11/13/19 20:00 12/13/19 19:59 11/17/19 20:41 Dextrose (Dextrose 50%) 25 ml Q30M PRN IV Hypoglycemia 11/11/19 20:30 12/11/19 20:29 Dextrose (Dextrose 50%) 50 ml Q30M PRN IV Hypoglycemia 11/11/19 20:30 12/11/19 20:29 Docusate Sodium (Colace) 100 mg DAILY GT 11/12/19 09:00 12/12/19 08:59 11/18/19 09:06 Dopamine HCl/ Dextrose 250 ml @ 0 mls/hr Q24H IV 11/11/19 23:00 12/11/19 22:59 11/18/19 10:04 Ferrous Sulfate (Feosol) 300 mg THREE TIMES A DAY GT 11/11/19 18:00 12/11/19 17:59 11/18/19 09:06 Insulin Aspart (NovoLOG) BEFORE MEALS AND HS SUBQ 11/11/19 22:00 12/11/19 21:59 Levothyroxine Sodium (Synthroid) 150 mcg DAILY@0630 GT 11/12/19 06:30 12/12/19 06:29 11/18/19 05:30 Meropenem 1 gm/ Sodium Chloride 100 ml @ 200 mls/hr Q8HR IVPB 11/17/19 14:00 11/25/19 19:59 11/18/19 05:30 Multivitamins (Multivitamins W/ Minerals 15ml Liquid) 15 ml DAILY GT 11/12/19 09:00 12/12/19 08:59 11/18/19 09:06 Ondansetron HCl (Zofran) 4 mg Q6H PRN IVP Nausea & Vomiting 11/12/19 03:00 12/12/19 02:59 11/12/19 03:48 Phenytoin (Dilantin) 250 mg Q12HR@0630,1830 GT 11/12/19 18:30 12/12/19 18:29 11/18/19 05:32 Vancomycin HCl (Vanco rx to dose) 1 ea DAILY PRN MISC Per rx protocol 11/12/19 13:30 12/12/19 13:29 Vancomycin HCl 750 mg/Sodium Chloride 275 ml @ 183.333 mls/hr Q12H IVPB 11/17/19 04:00 11/22/19 03:59 11/18/19 04:16 Zinc Oxide (Zinc Oxide) 1 applic BID TOPIC 11/12/19 10:00 12/12/19 09:59 11/18/19 09:07 Grabiel Hogan MD Nov 18, 2019 11:59
--- NOTE | 2019-11-18 12:53 | Nephrology Progress Note ---
Assessment/Plan Plan # Hypokalemia - improved #Respiratory failure s/p trach # Seizure. # sepsis due to UTI #possible peneumonia #h/o anoxic brain injury #functional quadroplegia # Mobitz 1second-degree AV block and intermittent AV dissociation - monitor off IVF - monitor BMP, mag and phos - replete lytes - continue TF - continue abx per ID - on dopamine drip- maintain MAP > 65 - monitor lytes - daily BMP Subjective Subjective nephrology progress note remains in ICU labs reviewed On vent Objective Objective Last 24 Hour Vital Signs Date Time Temp Pulse Resp B/P (MAP) Pulse Ox O2 Delivery O2 Flow Rate FiO2 11/18/19 12:00 Mechanical Ventilator Mechanical Ventilator 11/18/19 12:00 98.5 68 13 99/46 (63) 97 11/18/19 12:00 66 11/18/19 12:00 99/46 11/18/19 12:00 40 11/18/19 11:45 70 15 103/67 (79) 97 11/18/19 11:30 67 18 101/46 (64) 97 11/18/19 11:15 64 18 100/43 (62) 98 11/18/19 11:00 65 18 101/47 (65) 99 11/18/19 10:52 70 16 40 11/18/19 10:45 72 18 97/55 (69) 97 11/18/19 10:30 83 19 143/48 (79) 95 11/18/19 10:15 65 18 100/38 (58) 97 11/18/19 10:04 116/45 11/18/19 10:00 62 18 116/45 (68) 97 11/18/19 09:45 66 18 111/50 (70) 97 11/18/19 09:30 66 18 98/42 (60) 97 11/18/19 09:27 67 14 40 11/18/19 09:15 61 18 105/47 (66) 96 11/18/19 09:00 69 18 105/47 (66) 96 11/18/19 09:00 105/47 11/18/19 08:45 17 104/46 (65) 96 11/18/19 08:30 17 90/66 (74) 96 11/18/19 08:00 103/49 11/18/19 08:00 68 11/18/19 08:00 Mechanical Ventilator Mechanical Ventilator 11/18/19 08:00 40 11/18/19 08:00 98.2 68 17 103/49 (67) 89 11/18/19 07:45 57 18 100/45 (63) 97 11/18/19 07:30 71 17 94/55 (68) 99 11/18/19 07:14 77 22 40 11/18/19 07:00 71 18 99/53 (68) 100 11/18/19 07:00 99/53 11/18/19 06:30 63 18 102/54 (70) 100 11/18/19 06:15 73 17 134/119 (124) 99 11/18/19 06:00 64 18 100/41 (60) 98 11/18/19 06:00 100/41 11/18/19 05:45 70 17 89/64 (72) 96 11/18/19 05:30 67 18 100/50 (67) 97 11/18/19 05:24 68 20 40 11/18/19 05:00 107/70 11/18/19 05:00 67 18 100/50 (67) 97 11/18/19 04:30 62 18 90/47 (61) 98 11/18/19 04:15 63 17 100/70 (80) 99 11/18/19 04:00 98.7 61 18 99/50 (66) 97 11/18/19 04:00 99/50 11/18/19 04:00 Mechanical Ventilator 11/18/19 04:00 40 11/18/19 04:00 80 11/18/19 03:30 70 16 92/42 (59) 96 11/18/19 03:05 61 19 40 11/18/19 03:00 45 18 123/43 (69) 97 11/18/19 03:00 123/43 11/18/19 02:30 45 18 129/45 (73) 98 11/18/19 02:00 128/44 11/18/19 02:00 46 18 128/44 (72) 98 11/18/19 01:30 45 18 139/71 (93) 98 11/18/19 01:13 60 19 40 11/18/19 01:00 53 20 146/55 (85) 99 11/18/19 01:00 146/55 11/18/19 00:30 42 18 155/45 (81) 98 11/18/19 00:15 47 18 127/39 (68) 99 11/18/19 00:00 40 11/18/19 00:00 98.6 50 19 123/46 (71) 98 11/18/19 00:00 Mechanical Ventilator 11/18/19 00:00 80 11/18/19 00:00 123/46 11/17/19 23:45 66 21 114/49 (70) 97 11/17/19 23:40 80/30 11/17/19 23:30 94 19 66/34 (45) 98 11/17/19 23:20 81 22 40 11/17/19 23:00 116/53 11/17/19 23:00 64 20 116/53 (74) 97 11/17/19 22:30 70 19 125/53 (77) 99 11/17/19 22:00 131/52 11/17/19 22:00 81 19 131/52 (78) 98 11/17/19 21:30 74 21 122/54 (76) 100 11/17/19 21:09 66 19 40 11/17/19 21:00 66 19 97/58 (71) 100 11/17/19 21:00 97/58 11/17/19 20:30 61 18 111/50 (70) 97 11/17/19 20:00 70 11/17/19 20:00 67 18 115/50 (71) 99 11/17/19 20:00 Mechanical Ventilator 11/17/19 20:00 115/50 11/17/19 20:00 40 11/17/19 19:30 70 18 99/46 (63) 97 11/17/19 19:11 70 20 40 11/17/19 19:00 65 19 120/98 (105) 97 11/17/19 19:00 111/48 11/17/19 18:00 128/50 11/17/19 18:00 62 18 128/50 (76) 99 11/17/19 17:30 70 18 109/46 (67) 99 11/17/19 17:00 67 20 40 11/17/19 17:00 109/53 11/17/19 17:00 77 21 109/53 (71) 98 11/17/19 16:30 75 17 107/52 (70) 93 3/15/20 16:00 Mechanical Ventilator 11/17/19 16:00 66 11/17/19 16:00 40 11/17/19 16:00 109/48 11/17/19 16:00 98.3 78 19 109/48 (68) 95 11/17/19 15:30 60 18 111/41 (64) 96 11/17/19 15:11 67 20 40 11/17/19 15:00 77 21 103/45 (64) 95 11/17/19 15:00 103/45 11/17/19 14:30 73 21 107/47 (67) 97 11/17/19 14:00 115/47 11/17/19 14:00 68 20 115/47 (69) 95 11/17/19 13:30 80/36 11/17/19 13:30 76 19 97/44 (61) 98 11/17/19 13:14 61 18 40 11/17/19 13:00 73 20 120/43 (68) 98 11/17/19 13:00 120/43 Intake and Output 11/17/19 11/18/19 19:00 07:00 Intake Total 1826.892 ml 1493.896 ml Output Total 1100 ml 875 ml Balance 726.892 ml 618.896 ml Intake Free Water 20 ml IV Total 986.892 ml 773.896 ml Tube Feeding 840 ml 700 ml Output Urine Total 950 ml 875 ml Stool Total 150 ml # Bowel Movements 100 Laboratory Tests 11/18/19 04:10: White Blood Count 6.4, Red Blood Count 3.71L, Hemoglobin 12.3, Hematocrit 36.2L , Mean Corpuscular Volume 98, Mean Corpuscular Hemoglobin 33.3H, Mean Corpuscular Hemoglobin Concent 34.1, Red Cell Distribution Width 13.3, Platelet Count 221, Mean Platelet Volume 8.4, Neutrophils (%) (Auto) 63.8, Lymphocytes (% ) (Auto) 20.8, Monocytes (%) (Auto) 8.8, Eosinophils (%) (Auto) 5.8H, Basophils (%) (Auto) 0.9, Sodium Level 138, Potassium Level 4.2, Chloride Level 103, Carbon Dioxide Level 27, Anion Gap 8, Blood Urea Nitrogen 12, Creatinine 0.5L, Estimat Glomerular Filtration Rate > 60, Glucose Level 128H, Calcium Level 9.3, Phosphorus Level 3.3, Magnesium Level 1.9, Total Bilirubin 0.2, Aspartate Amino Transf (AST/SGOT) 18, Alanine Aminotransferase (ALT/SGPT) 20, Alkaline Phosphatase 194H, Total Protein 7.3, Albumin 2.0L, Globulin 5.3, Albumin/ Globulin Ratio 0.4L Height (Feet): 5 Height (Inches): 3.00 Weight (Pounds): 190 Objective General Appearance: no apparent distress, other - on vent- trach and peg Lines, tubes and drains: peripheral HEENT: normocephalic, atraumatic Neck: supple Respiratory/Chest: lungs clear Cardiovascular/Chest: normal peripheral pulses, normal rate, regular rhythm Abdomen: soft Extremities: normal range of motion, normal inspection, non-pitting Neurologic: alert Bear Nice M.D. Nov 18, 2019 12:53
--- NOTE | 2019-11-18 15:50 | Surgery Progress Note ---
Surgery Progress Note Subjective Symptoms: other Objective Last 24 Hour Vital Signs Date Time Temp Pulse Resp B/P (MAP) Pulse Ox O2 Delivery O2 Flow Rate FiO2 11/18/19 15:24 79 18 40 11/18/19 15:00 69 13 101/34 (56) 99 11/18/19 15:00 101/34 11/18/19 14:00 67 18 97/52 (67) 98 11/18/19 14:00 97/52 11/18/19 13:00 71 14 95/44 (61) 97 11/18/19 13:00 95/44 11/18/19 12:00 Mechanical Ventilator Mechanical Ventilator 11/18/19 12:00 98.5 68 13 99/46 (63) 97 11/18/19 12:00 66 11/18/19 12:00 99/46 11/18/19 12:00 40 11/18/19 11:45 70 15 103/67 (79) 97 11/18/19 11:30 67 18 101/46 (64) 97 11/18/19 11:15 64 18 100/43 (62) 98 11/18/19 11:00 65 18 101/47 (65) 99 11/18/19 10:52 70 16 40 11/18/19 10:45 72 18 97/55 (69) 97 11/18/19 10:30 83 19 143/48 (79) 95 11/18/19 10:15 65 18 100/38 (58) 97 11/18/19 10:04 116/45 11/18/19 10:00 62 18 116/45 (68) 97 11/18/19 09:45 66 18 111/50 (70) 97 11/18/19 09:30 66 18 98/42 (60) 97 11/18/19 09:27 67 14 40 11/18/19 09:15 61 18 105/47 (66) 96 11/18/19 09:00 69 18 105/47 (66) 96 11/18/19 09:00 105/47 11/18/19 08:45 17 104/46 (65) 96 11/18/19 08:30 17 90/66 (74) 96 11/18/19 08:00 103/49 11/18/19 08:00 68 11/18/19 08:00 Mechanical Ventilator Mechanical Ventilator 11/18/19 08:00 40 11/18/19 08:00 98.2 68 17 103/49 (67) 89 11/18/19 07:45 57 18 100/45 (63) 97 11/18/19 07:30 71 17 94/55 (68) 99 11/18/19 07:14 77 22 40 11/18/19 07:00 71 18 99/53 (68) 100 11/18/19 07:00 99/53 11/18/19 06:30 63 18 102/54 (70) 100 11/18/19 06:15 73 17 134/119 (124) 99 11/18/19 06:00 64 18 100/41 (60) 98 11/18/19 06:00 100/41 11/18/19 05:45 70 17 89/64 (72) 96 11/18/19 05:30 67 18 100/50 (67) 97 11/18/19 05:24 68 20 40 11/18/19 05:00 107/70 11/18/19 05:00 67 18 100/50 (67) 97 11/18/19 04:30 62 18 90/47 (61) 98 11/18/19 04:15 63 17 100/70 (80) 99 11/18/19 04:00 98.7 61 18 99/50 (66) 97 11/18/19 04:00 99/50 11/18/19 04:00 Mechanical Ventilator 11/18/19 04:00 40 11/18/19 04:00 80 11/18/19 03:30 70 16 92/42 (59) 96 11/18/19 03:05 61 19 40 11/18/19 03:00 45 18 123/43 (69) 97 11/18/19 03:00 123/43 11/18/19 02:30 45 18 129/45 (73) 98 11/18/19 02:00 128/44 11/18/19 02:00 46 18 128/44 (72) 98 11/18/19 01:30 45 18 139/71 (93) 98 11/18/19 01:13 60 19 40 11/18/19 01:00 53 20 146/55 (85) 99 11/18/19 01:00 146/55 11/18/19 00:30 42 18 155/45 (81) 98 11/18/19 00:15 47 18 127/39 (68) 99 11/18/19 00:00 40 11/18/19 00:00 98.6 50 19 123/46 (71) 98 11/18/19 00:00 Mechanical Ventilator 11/18/19 00:00 80 11/18/19 00:00 123/46 11/17/19 23:45 66 21 114/49 (70) 97 11/17/19 23:40 80/30 11/17/19 23:30 94 19 66/34 (45) 98 11/17/19 23:20 81 22 40 11/17/19 23:00 116/53 11/17/19 23:00 64 20 116/53 (74) 97 11/17/19 22:30 70 19 125/53 (77) 99 11/17/19 22:00 131/52 11/17/19 22:00 81 19 131/52 (78) 98 11/17/19 21:30 74 21 122/54 (76) 100 11/17/19 21:09 66 19 40 11/17/19 21:00 66 19 97/58 (71) 100 11/17/19 21:00 97/58 11/17/19 20:30 61 18 111/50 (70) 97 11/17/19 20:00 70 11/17/19 20:00 67 18 115/50 (71) 99 11/17/19 20:00 Mechanical Ventilator 11/17/19 20:00 115/50 11/17/19 20:00 40 11/17/19 19:30 70 18 99/46 (63) 97 11/17/19 19:11 70 20 40 11/17/19 19:00 65 19 120/98 (105) 97 11/17/19 19:00 111/48 11/17/19 18:00 128/50 11/17/19 18:00 62 18 128/50 (76) 99 11/17/19 17:30 70 18 109/46 (67) 99 11/17/19 17:00 67 20 40 11/17/19 17:00 109/53 11/17/19 17:00 77 21 109/53 (71) 98 11/17/19 16:30 75 17 107/52 (70) 93 3/15/20 16:00 Mechanical Ventilator 11/17/19 16:00 66 11/17/19 16:00 40 11/17/19 16:00 109/48 11/17/19 16:00 98.3 78 19 109/48 (68) 95 I&O Intake and Output 11/17/19 11/18/19 19:00 07:00 Intake Total 1826.892 ml 1493.896 ml Output Total 1100 ml 875 ml Balance 726.892 ml 618.896 ml Intake Free Water 20 ml IV Total 986.892 ml 773.896 ml Tube Feeding 840 ml 700 ml Output Urine Total 950 ml 875 ml Stool Total 150 ml # Bowel Movements 100 Dressing: dry Wound: clean Cardiovascular: RSR Respiratory: clear, decreased breath sounds Abdomen: soft, non-tender, present bowel sounds Extremities: no cyanosis Laboratory Tests Test 11/18/19 04:10 11/18/19 15:05 White Blood Count 6.4 K/UL (4.8-10.8) Red Blood Count 3.71 M/UL (4.20-5.40) L Hemoglobin 12.3 G/DL (12.0-16.0) Hematocrit 36.2 % (37.0-47.0) L Mean Corpuscular Volume 98 FL (80-99) Mean Corpuscular Hemoglobin 33.3 PG (27.0-31.0) H Mean Corpuscular Hemoglobin Concent 34.1 G/DL (32.0-36.0) Red Cell Distribution Width 13.3 % (11.6-14.8) Platelet Count 221 K/UL (150-450) Mean Platelet Volume 8.4 FL (6.5-10.1) Neutrophils (%) (Auto) 63.8 % (45.0-75.0) Lymphocytes (%) (Auto) 20.8 % (20.0-45.0) Monocytes (%) (Auto) 8.8 % (1.0-10.0) Eosinophils (%) (Auto) 5.8 % (0.0-3.0) H Basophils (%) (Auto) 0.9 % (0.0-2.0) Sodium Level 138 MMOL/L (136-145) Potassium Level 4.2 MMOL/L (3.5-5.1) Chloride Level 103 MMOL/L (98-107) Carbon Dioxide Level 27 MMOL/L (21-32) Anion Gap 8 mmol/L (5-15) Blood Urea Nitrogen 12 mg/dL (7-18) Creatinine 0.5 MG/DL (0.55-1.30) L Estimat Glomerular Filtration Rate > 60 mL/min (>60) Glucose Level 128 MG/DL (74-106) H Calcium Level 9.3 MG/DL (8.5-10.1) Phosphorus Level 3.3 MG/DL (2.5-4.9) Magnesium Level 1.9 MG/DL (1.8-2.4) Total Bilirubin 0.2 MG/DL (0.2-1.0) Aspartate Amino Transf (AST/SGOT) 18 U/L (15-37) Alanine Aminotransferase (ALT/SGPT) 20 U/L (12-78) Alkaline Phosphatase 194 U/L (46-116) H Total Protein 7.3 G/DL (6.4-8.2) Albumin 2.0 G/DL (3.4-5.0) L Globulin 5.3 g/dL Albumin/Globulin Ratio 0.4 (1.0-2.7) L Vancomycin Level Trough Pending Plan Problems: (1) Decubitus skin ulcer Assessment & Plan: Pt presented on admission with resolving pressure injury R side to posterior aspect of neck. Base of wound is moist with pink epithelial. Mild odor noted (L)1.5cm x (W)6cm. Partial thickness stage 2 pressure injury in close proximity R side neck. Base of wound is moist and viable(L)0.7cm x (W) 0.8cm. Small amt serosanguineous exudate noted. Moist pink epithelial L side to posterior aspect of neck(L)5cm x (W)16.5cm. Within base of wound is a full thickness stage 3 pressure injury L side neck under tracheal collar. Base of wound is moist ,wan with macerated borders.(L)0.9cm x (W)2cm x (D)0.6cmSmall amt serous exudate noted. Mild odor noted. Erosion noted at GT site . Scattered areas of hyperpigmentation noted to R and L buttocks and both ischial tuberosities. Non-blanching erythema without induration noted to Sacrum. L heel Is boggy with an area of non-blanching erythema with delineated margins. R heel is soft but blanchable. Tx.Plan: Apply Zinc Oxide Paste 20% to Epithelial areas around neck Twice Daily.Place Abd pads under tracheal collar . Cleanse Wound L side of neck with Saline. Apply TheraHoney. Apply Zinc Oxide Paste periwound. Cover with Optifoam drsg Daily and prn. Apply Moisture Barrier Paste to sacrum. Cover with Optifoam drsg. Change every 3 days and prn. Apply Cavilon Skin Barrier to both heels. Cover each heel with Optifoam drsg. Change every 7 days and prn. APM/LUIGI Mattress overlay. Reposition at least every 2 hours or as tolerated. Off- Load heels with pillow. (2) Recurrent seizures Assessment & Plan: As per neurology No injury identified Rx is written (3) Feeding by G-tube Assessment & Plan: DAILY ESTIMATED NEEDS: Needs based on Obese, critical care, wound healing 65.8kg abw 22-28 kcals/kg 3639-1926 total kcals 1.25-2 g protein/kg 82-131 g total protein 25-30 mL/kg [id number] total fluid mLs NUTRITION DIAGNOSIS: 1) Swallowing difficulty R/T respiratory status as evidenced by pt trach-vent dep, GT dep 2) Increased kcal/prot needs R/T wound healing as evidenced by pt admitted w/ multiple wounds including full thickness pressure injury at L side neck under tracheal collar and partial thickness pressure injurty in close proximity to R side neck CURRENT TF:TF HELD: Jevity 1.2 @ 75ml/hr x 18 hrs ENTERAL NUTRITION RECOMMENDATIONS: Glucerna 1.2 @ 70ml/hr x 20 hrs (TF HELD FOR DILANTIN AND SYNTHROID) to provide 1200ml, 1440kcal, 67g prot, 968ml free water * FEED W/ HEMODYNAMIC STABLITY -> rec TF change to Glucerna 1.2 (h/o DM) -> Initiate Glucerna 1.2 @ 20ml/hr x 6 hrs -> advance 10ml q 4-6 hrs as tolerated to goal rate -> HOLD TF 1 HR BEFORE AND AFTER DILANTIN BID AND SYNTHROID QD (AM Dilantin and Synthroid given at the same time) -> Water flush per MD/ HOB over 30 degrees ADDITIONAL RECOMMENDATIONS: * Calibrated bed scale weights for accurate CBW (w/ added P200 mattress) * Wound healing: Continue Vit C/ add Contreras 1pkt BID via PEG * Monitor HD stability: on Dopamine * TF to run max 20 hrs w/ Dilantin BID + Synthroid QD (See above TF rec) * Monitor lytes daily w/ TF, replete as needed . (4) G-tube site cellulitis Assessment & Plan: as above (5) Abnormal LFTs Assessment & Plan: nondistended gallbladder with gallstones. Apparent gallbladder wall thickening, probably artifact of under distention but raises the possibility of acute cholecystitis. Consider nuclear medicine hepatobiliary scan if there is high clinical suspicion Negative for dilated bile ducts Echogenic foci in the left renal sinus, could represent nonobstructive calculi within the be artifactual given lack of evidence of such on prior CT scan Incidental findings left lower pole renal cyst, dystrophic right right lobe liver calcification Note incomplete visualization of portions of the abdominal aorta Heath Martell Nov 18, 2019 15:50
[2019-11-18] MEDS: Dyna-Hex 2% Top Sol 2oz TOPIC SCH (19:46)
[2019-11-19] VITALS (48 sets, daily range): BP systolic 79–133; BP diastolic 42–105
--- NOTE | 2019-11-19 03:15 | Progress Note ---
DATE: 11/18/2019 CARDIOLOGY PROGRESS NOTE SUBJECTIVE: Remains on ventilator support. Heart rates improved. OBJECTIVE: VITAL SIGNS: Blood pressure 101/47, pulse 65, respiratory rate 18. Occasional episodes of second-degree AV block. LUNGS: Bilateral breath sounds. Thin secretions. CARDIAC: Regular rhythm and rate. Normal S1, S2. ABDOMEN: Soft. EXTREMITIES: No edema. LABORATORY DATA: White count 6.4 and hemoglobin 12.3. Dilantin level from November 15, 2019 was 13.6. Albumin 2. BUN 12. Creatinine 0.5. IMPRESSION: 1. Asymptomatic. 2. 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 3. Dilantin toxicity, recovering. 4. Ventilator-dependent respiratory failure. 5. Hypomagnesemia and hypovolemia, corrected. 6. Sepsis with shock, recovered. 7. Healthcare-acquired pneumonia, improving. PLAN: 1. Replace electrolytes as needed including magnesium. 2. Maintenance hydration. Taper off dopamine. 3. Protein supplement. 4. No current indication for permanent pacemaker. 5. Follow up Dilantin levels. Eder Tenorio M.D. DR: Yeyo JOB#: [id number] CC:
[2019-11-19] MEDS: Vancomycin 750mg/NS 275ml IVPB SCH ×2 (03:33)
[2019-11-19 05:32] LABS: BLOOD UREA NITROGEN 13 mg/dL (7-18); CALCIUM 9.2 MG/DL (8.5-10.1); CARBON DIOXIDE 30 MMOL/L (21-32); CHLORIDE 99 MMOL/L (98-107); CREATININE 0.5 MG/DL (0.55-1.30)
[2019-11-19] MEDS: Phenytoin Susp 100mg/4ml GT SCH ×2 (05:44→18:20)
[2019-11-19 05:50] LABS: POTASSIUM 4.2 MMOL/L (3.5-5.1); SODIUM 136 MMOL/L (136-145)
[2019-11-19] MEDS: NovoLOG Insulin Flexpen SUBQ SCH ×4 (06:04→20:39)
[2019-11-19] MEDS: Zinc Oxide Oint 2oz TOPIC SCH ×2 (08:40→18:20)
[2019-11-19] MEDS: Ascorbic Acid 500mg tab NG SCH (08:40)
[2019-11-19] MEDS: Docusate 100mg/10ml Liq GT SCH (08:40)
[2019-11-19] MEDS: Multivitamins W/Minerals 15 ML UDC GT SCH (08:40)
[2019-11-19] MEDS: Ferrous Sulfate 300 MG/5 ML UDC GT SCH ×3 (08:40→18:19)
--- NOTE | 2019-11-19 10:12 | Pulmonology Progress Note ---
Assessment/Plan Assessment/Plan IMPRESSION: 1. Supratherapeutic Dilantin level. Will recheck 2. Questionable seizure. 3. UTI. 4. Chronic respiratory failure. 5. Septic shock. 6. Bradycardia DISCUSSION: Seen by cardiology and ID. Continue vent. Continue present medications care. I will follow carefully. Heart rate better Begin dc planning Grabiel Hogan M.D. Subjective Interval Events: heart rate better Constitutional: Reports: no symptoms HEENT: Repors: no symptoms Respiratory: Reports: no symptoms Gastrointestinal/Abdominal: Reports: no symptoms Genitourinary: Reports: no symptoms Allergies: Coded Allergies: PEANUT (Verified Allergy, Unknown, 09/22/16) Uncoded Allergies: PEANUTS (Allergy, Unknown, 02/04/19) Objective Last 24 Hour Vital Signs Date Time Temp Pulse Resp B/P (MAP) Pulse Ox O2 Delivery O2 Flow Rate FiO2 11/19/19 09:30 83 18 106/49 (68) 99 11/19/19 09:05 83 18 40 11/19/19 09:00 83 18 103/45 (64) 99 11/19/19 09:00 103/45 11/19/19 08:30 78 18 101/51 (68) 96 11/19/19 08:00 84 11/19/19 08:00 40 11/19/19 08:00 Mechanical Ventilator Mechanical Ventilator 11/19/19 08:00 104/47 11/19/19 08:00 98.1 85 18 104/47 (66) 98 11/19/19 07:30 85 18 107/56 (73) 98 11/19/19 07:05 82 18 40 11/19/19 07:00 79 18 103/56 (72) 100 11/19/19 07:00 103/56 11/19/19 06:53 81 17 105/48 (67) 99 11/19/19 06:50 76/49 11/19/19 06:48 84 18 79/49 (59) 99 11/19/19 06:45 87 19 86/50 (62) 100 11/19/19 06:30 93/48 11/19/19 06:30 99 18 93/48 (63) 100 11/19/19 06:00 87 18 107/51 (69) 100 11/19/19 06:00 107/51 11/19/19 05:45 93 19 107/53 (71) 100 11/19/19 05:30 123/48 11/19/19 05:30 82 18 123/48 (73) 100 11/19/19 05:19 84 21 40 11/19/19 05:00 133/51 11/19/19 05:00 84 18 133/51 (78) 95 11/19/19 04:30 74 17 117/105 (109) 95 11/19/19 04:30 117/105 11/19/19 04:00 97.9 78 17 123/52 (75) 95 11/19/19 04:00 Mechanical Ventilator Mechanical Ventilator 11/19/19 04:00 123/52 11/19/19 04:00 40 11/19/19 03:30 69 18 130/54 (79) 98 11/19/19 03:30 130/54 11/19/19 03:12 68 11/19/19 03:00 69 18 118/56 (76) 99 11/19/19 03:00 118/56 11/19/19 03:00 68 18 40 11/19/19 02:30 108/50 11/19/19 02:30 72 19 108/50 (69) 96 11/19/19 02:15 80 20 100/52 (68) 98 11/19/19 02:00 59 18 96/42 (60) 99 11/19/19 02:00 103/43 11/19/19 01:45 62 13 103/43 (63) 93 11/19/19 01:30 60 18 97/47 (64) 98 11/19/19 01:00 71 14 120/45 (70) 98 11/19/19 01:00 98/27 11/19/19 01:00 67 19 40 11/19/19 00:30 60 11 99/43 (61) 98 11/19/19 00:00 Mechanical Ventilator Mechanical Ventilator 11/19/19 00:00 112/45 11/19/19 00:00 98.2 65 18 112/45 (67) 98 11/19/19 00:00 40 11/18/19 23:30 65 18 105/43 (63) 98 11/18/19 23:05 65 18 40 11/18/19 23:02 62 11/18/19 23:00 61 18 104/42 (62) 100 11/18/19 23:00 104/42 11/18/19 22:30 61 18 108/43 (64) 99 11/18/19 22:00 50 18 105/39 (61) 98 11/18/19 22:00 105/39 11/18/19 21:40 110/44 11/18/19 21:30 55 14 110/44 (66) 99 11/18/19 21:00 107/45 11/18/19 21:00 65 10 107/45 (65) 98 11/18/19 20:55 62 19 40 11/18/19 20:30 70 15 108/48 (68) 98 11/18/19 20:00 Mechanical Ventilator Mechanical Ventilator 11/18/19 20:00 99.1 68 18 104/45 (64) 96 11/18/19 20:00 40 11/18/19 20:00 104/45 11/18/19 19:47 67 11/18/19 19:30 75 18 120/45 (70) 99 11/18/19 19:24 65 18 40 11/18/19 19:00 106/49 11/18/19 19:00 67 17 106/49 (68) 98 11/18/19 18:30 64 17 103/44 (63) 98 11/18/19 18:00 58 17 113/45 (67) 98 11/18/19 18:00 113/45 11/18/19 17:30 86 19 124/54 (77) 100 11/18/19 17:05 80 18 40 11/18/19 17:00 95/45 11/18/19 17:00 62 19 95/45 (62) 97 11/18/19 16:30 68 14 97/46 (63) 99 11/18/19 16:00 40 11/18/19 16:00 65 20 124/54 (77) 99 11/18/19 16:00 100/46 11/18/19 16:00 98.3 67 13 100/46 (64) 96 11/18/19 16:00 Mechanical Ventilator Mechanical Ventilator 3/16/20 16:00 69 11/18/19 15:45 73 16 114/47 (69) 97 11/18/19 15:30 69 15 113/45 (67) 99 11/18/19 15:24 79 18 40 11/18/19 15:00 69 13 101/34 (56) 99 11/18/19 15:00 69 13 101/34 (56) 99 11/18/19 15:00 101/34 11/18/19 14:30 66 17 110/45 (66) 98 11/18/19 14:00 67 18 97/52 (67) 98 11/18/19 14:00 97/52 11/18/19 14:00 67 18 97/52 (67) 98 11/18/19 13:30 67 13 97/38 (57) 98 11/18/19 13:00 71 14 95/44 (61) 97 11/18/19 13:00 71 14 95/44 (61) 97 11/18/19 13:00 95/44 11/18/19 12:30 66 13 105/42 (63) 98 11/18/19 12:00 Mechanical Ventilator Mechanical Ventilator 11/18/19 12:00 98.5 68 13 99/46 (63) 97 11/18/19 12:00 66 11/18/19 12:00 99/46 11/18/19 12:00 40 11/18/19 11:45 70 15 103/67 (79) 97 11/18/19 11:30 67 18 101/46 (64) 97 11/18/19 11:15 64 18 100/43 (62) 98 11/18/19 11:00 65 18 101/47 (65) 99 11/18/19 10:52 70 16 40 11/18/19 10:45 72 18 97/55 (69) 97 11/18/19 10:30 83 19 143/48 (79) 95 11/18/19 10:15 65 18 100/38 (58) 97 Intake and Output 11/18/19 11/19/19 19:00 07:00 Intake Total 1459.83093 ml 1640.244 ml Output Total 1460 ml 1360 ml Balance -0.09670 ml 280.244 ml Intake Free Water 20 ml IV Total 739.33568 ml 700.244 ml Tube Feeding 700 ml 840 ml Other 100 ml Output Urine Total 1410 ml 1210 ml Stool Total 50 ml 150 ml General Appearance: no acute distress HEENT: status post trach Respiratory/Chest: chest wall non-tender, lungs clear Cardiovascular: normal peripheral pulses Abdomen: normal bowel sounds Laboratory Tests 11/18/19 15:05: Vancomycin Level Trough 13.1H 11/19/19 03:25: Sodium Level 136, Potassium Level 4.2, Chloride Level 99, Carbon Dioxide Level 30, Blood Urea Nitrogen 13, Creatinine 0.5L, Estimat Glomerular Filtration Rate > 60, Glucose Level 106, Calcium Level 9.2, Phosphorus Level 3.0, Magnesium Level 1.9 Current Medications Medications (Trade) Dose Ordered Sig/Boubacar Route PRN Reason Start Time Stop Time Status Last Admin Dose Admin Acetaminophen (Tylenol) 650 mg Q6H PRN GT Mild Pain/Temp > 100.5 11/11/19 14:30 12/11/19 14:29 Ascorbic Acid (Vitamin C) 500 mg DAILY NG 11/12/19 09:00 12/12/19 08:59 11/19/19 08:40 Chlorhexidine Gluconate ([place]-Hex 2%) 1 applic DAILY@1999 TOPIC 11/13/19 20:00 12/13/19 19:59 11/18/19 19:46 Dextrose (Dextrose 50%) 25 ml Q30M PRN IV Hypoglycemia 11/11/19 20:30 12/11/19 20:29 Dextrose (Dextrose 50%) 50 ml Q30M PRN IV Hypoglycemia 11/11/19 20:30 12/11/19 20:29 Docusate Sodium (Colace) 100 mg DAILY GT 11/12/19 09:00 12/12/19 08:59 11/19/19 08:40 Dopamine HCl/ Dextrose 250 ml @ 0 mls/hr Q24H IV 11/11/19 23:00 12/11/19 22:59 11/18/19 21:40 Ferrous Sulfate (Feosol) 300 mg THREE TIMES A DAY GT 11/11/19 18:00 12/11/19 17:59 11/19/19 08:40 Insulin Aspart (NovoLOG) BEFORE MEALS AND HS SUBQ 11/11/19 22:00 12/11/19 21:59 Levothyroxine Sodium (Synthroid) 150 mcg DAILY@0630 GT 11/12/19 06:30 12/12/19 06:29 11/19/19 05:43 Meropenem 1 gm/ Sodium Chloride 100 ml @ 200 mls/hr Q8HR IVPB 11/17/19 14:00 11/25/19 19:59 11/19/19 05:43 Multivitamins (Multivitamins W/ Minerals 15ml Liquid) 15 ml DAILY GT 11/12/19 09:00 12/12/19 08:59 11/19/19 08:40 Ondansetron HCl (Zofran) 4 mg Q6H PRN IVP Nausea & Vomiting 11/12/19 03:00 12/12/19 02:59 11/12/19 03:48 Phenytoin (Dilantin) 250 mg Q12HR@0630,1830 GT 11/12/19 18:30 12/12/19 18:29 11/19/19 05:44 Vancomycin HCl (Vanco rx to dose) 1 ea DAILY PRN MISC Per rx protocol 11/12/19 13:30 12/12/19 13:29 Vancomycin HCl 750 mg/Sodium Chloride 275 ml @ 183.333 mls/hr Q12H IVPB 11/17/19 04:00 11/22/19 03:59 11/19/19 03:33 Zinc Oxide (Zinc Oxide) 1 applic BID TOPIC 11/12/19 10:00 12/12/19 09:59 11/19/19 08:40 Grabiel Hogan MD Nov 19, 2019 10:12
--- NOTE | 2019-11-19 11:14 | Nephrology Progress Note ---
Assessment/Plan Plan # Hypokalemia - improved #Respiratory failure s/p trach # Seizure. # sepsis due to UTI #possible peneumonia #h/o anoxic brain injury #functional quadroplegia # Mobitz 1second-degree AV block and intermittent AV dissociation - monitor off IVF - monitor BMP, mag and phos - replete lytes - continue TF - continue abx per ID - on dopamine drip- maintain MAP > 65 - monitor lytes - daily BMP Subjective Subjective nephrology progress note remains in ICU labs reviewed On vent Objective Objective Last 24 Hour Vital Signs Date Time Temp Pulse Resp B/P (MAP) Pulse Ox O2 Delivery O2 Flow Rate FiO2 11/19/19 11:09 75 18 40 11/19/19 10:30 73 18 102/52 (69) 99 11/19/19 10:00 98/50 11/19/19 10:00 73 18 98/50 (66) 99 11/19/19 09:30 83 18 106/49 (68) 99 11/19/19 09:05 83 18 40 11/19/19 09:00 83 18 103/45 (64) 99 11/19/19 09:00 103/45 11/19/19 08:30 78 18 101/51 (68) 96 11/19/19 08:00 84 11/19/19 08:00 40 11/19/19 08:00 Mechanical Ventilator Mechanical Ventilator 11/19/19 08:00 104/47 11/19/19 08:00 98.1 85 18 104/47 (66) 98 11/19/19 07:30 85 18 107/56 (73) 98 11/19/19 07:05 82 18 40 11/19/19 07:00 79 18 103/56 (72) 100 11/19/19 07:00 103/56 11/19/19 06:53 81 17 105/48 (67) 99 11/19/19 06:50 76/49 11/19/19 06:48 84 18 79/49 (59) 99 11/19/19 06:45 87 19 86/50 (62) 100 11/19/19 06:30 93/48 11/19/19 06:30 99 18 93/48 (63) 100 11/19/19 06:00 87 18 107/51 (69) 100 11/19/19 06:00 107/51 11/19/19 05:45 93 19 107/53 (71) 100 11/19/19 05:30 123/48 11/19/19 05:30 82 18 123/48 (73) 100 11/19/19 05:19 84 21 40 11/19/19 05:00 133/51 11/19/19 05:00 84 18 133/51 (78) 95 11/19/19 04:30 74 17 117/105 (109) 95 11/19/19 04:30 117/105 11/19/19 04:00 97.9 78 17 123/52 (75) 95 11/19/19 04:00 Mechanical Ventilator Mechanical Ventilator 11/19/19 04:00 123/52 11/19/19 04:00 40 11/19/19 03:30 69 18 130/54 (79) 98 11/19/19 03:30 130/54 11/19/19 03:12 68 11/19/19 03:00 69 18 118/56 (76) 99 11/19/19 03:00 118/56 11/19/19 03:00 68 18 40 11/19/19 02:30 108/50 11/19/19 02:30 72 19 108/50 (69) 96 11/19/19 02:15 80 20 100/52 (68) 98 11/19/19 02:00 59 18 96/42 (60) 99 11/19/19 02:00 103/43 11/19/19 01:45 62 13 103/43 (63) 93 11/19/19 01:30 60 18 97/47 (64) 98 11/19/19 01:00 71 14 120/45 (70) 98 11/19/19 01:00 98/27 11/19/19 01:00 67 19 40 11/19/19 00:30 60 11 99/43 (61) 98 11/19/19 00:00 Mechanical Ventilator Mechanical Ventilator 11/19/19 00:00 112/45 11/19/19 00:00 98.2 65 18 112/45 (67) 98 11/19/19 00:00 40 11/18/19 23:30 65 18 105/43 (63) 98 11/18/19 23:05 65 18 40 11/18/19 23:02 62 3/16/20 23:00 61 18 104/42 (62) 100 11/18/19 23:00 104/42 11/18/19 22:30 61 18 108/43 (64) 99 11/18/19 22:00 50 18 105/39 (61) 98 11/18/19 22:00 105/39 11/18/19 21:40 110/44 11/18/19 21:30 55 14 110/44 (66) 99 11/18/19 21:00 107/45 11/18/19 21:00 65 10 107/45 (65) 98 11/18/19 20:55 62 19 40 11/18/19 20:30 70 15 108/48 (68) 98 11/18/19 20:00 Mechanical Ventilator Mechanical Ventilator 11/18/19 20:00 99.1 68 18 104/45 (64) 96 11/18/19 20:00 40 11/18/19 20:00 104/45 11/18/19 19:47 67 11/18/19 19:30 75 18 120/45 (70) 99 11/18/19 19:24 65 18 40 11/18/19 19:00 106/49 11/18/19 19:00 67 17 106/49 (68) 98 11/18/19 18:30 64 17 103/44 (63) 98 11/18/19 18:00 58 17 113/45 (67) 98 11/18/19 18:00 113/45 11/18/19 17:30 86 19 124/54 (77) 100 11/18/19 17:05 80 18 40 11/18/19 17:00 95/45 11/18/19 17:00 62 19 95/45 (62) 97 11/18/19 16:30 68 14 97/46 (63) 99 11/18/19 16:00 40 11/18/19 16:00 65 20 124/54 (77) 99 11/18/19 16:00 100/46 11/18/19 16:00 98.3 67 13 100/46 (64) 96 11/18/19 16:00 Mechanical Ventilator Mechanical Ventilator 11/18/19 16:00 69 11/18/19 15:45 73 16 114/47 (69) 97 11/18/19 15:30 69 15 113/45 (67) 99 11/18/19 15:24 79 18 40 11/18/19 15:00 69 13 101/34 (56) 99 11/18/19 15:00 69 13 101/34 (56) 99 11/18/19 15:00 101/34 11/18/19 14:30 66 17 110/45 (66) 98 11/18/19 14:00 67 18 97/52 (67) 98 11/18/19 14:00 97/52 11/18/19 14:00 67 18 97/52 (67) 98 11/18/19 13:30 67 13 97/38 (57) 98 11/18/19 13:00 71 14 95/44 (61) 97 11/18/19 13:00 71 14 95/44 (61) 97 11/18/19 13:00 95/44 11/18/19 12:30 66 13 105/42 (63) 98 11/18/19 12:00 Mechanical Ventilator Mechanical Ventilator 11/18/19 12:00 98.5 68 13 99/46 (63) 97 11/18/19 12:00 66 11/18/19 12:00 99/46 11/18/19 12:00 40 11/18/19 11:45 70 15 103/67 (79) 97 11/18/19 11:30 67 18 101/46 (64) 97 11/18/19 11:15 64 18 100/43 (62) 98 Intake and Output 11/18/19 11/19/19 19:00 07:00 Intake Total 1459.92728 ml 1640.244 ml Output Total 1460 ml 1360 ml Balance -0.78063 ml 280.244 ml Intake Free Water 20 ml IV Total 739.97614 ml 700.244 ml Tube Feeding 700 ml 840 ml Other 100 ml Output Urine Total 1410 ml 1210 ml Stool Total 50 ml 150 ml Laboratory Tests 11/18/19 15:05: Vancomycin Level Trough 13.1H 11/19/19 03:25: Sodium Level 136, Potassium Level 4.2, Chloride Level 99, Carbon Dioxide Level 30, Blood Urea Nitrogen 13, Creatinine 0.5L, Estimat Glomerular Filtration Rate > 60, Glucose Level 106, Calcium Level 9.2, Phosphorus Level 3.0, Magnesium Level 1.9 Height (Feet): 5 Height (Inches): 3.00 Weight (Pounds): 205 Objective General Appearance: no apparent distress, other - on vent- trach and peg Lines, tubes and drains: peripheral HEENT: normocephalic, atraumatic Neck: supple Respiratory/Chest: lungs clear Cardiovascular/Chest: normal peripheral pulses, normal rate, regular rhythm Abdomen: soft Extremities: normal range of motion, normal inspection, non-pitting Neurologic: alert Bear Nice M.D. Nov 19, 2019 11:14
--- NOTE | 2019-11-19 12:31 | Surgery Progress Note ---
Surgery Progress Note Subjective Additional Comments more awake and alert today on vent support labs improved exam stable tolerating tube feeds Objective Last 24 Hour Vital Signs Date Time Temp Pulse Resp B/P (MAP) Pulse Ox O2 Delivery O2 Flow Rate FiO2 11/19/19 12:26 93 22 40 11/19/19 11:30 80 19 98/49 (65) 98 11/19/19 11:09 75 18 40 11/19/19 11:00 76 18 101/52 (68) 97 11/19/19 11:00 94/53 11/19/19 10:30 73 18 102/52 (69) 99 11/19/19 10:00 98/50 11/19/19 10:00 73 18 98/50 (66) 99 11/19/19 09:30 83 18 106/49 (68) 99 11/19/19 09:05 83 18 40 11/19/19 09:00 83 18 103/45 (64) 99 11/19/19 09:00 103/45 11/19/19 08:30 78 18 101/51 (68) 96 11/19/19 08:00 84 11/19/19 08:00 40 11/19/19 08:00 Mechanical Ventilator Mechanical Ventilator 11/19/19 08:00 104/47 11/19/19 08:00 98.1 85 18 104/47 (66) 98 11/19/19 07:30 85 18 107/56 (73) 98 11/19/19 07:05 82 18 40 11/19/19 07:00 79 18 103/56 (72) 100 11/19/19 07:00 103/56 11/19/19 06:53 81 17 105/48 (67) 99 11/19/19 06:50 76/49 11/19/19 06:48 84 18 79/49 (59) 99 11/19/19 06:45 87 19 86/50 (62) 100 11/19/19 06:30 93/48 11/19/19 06:30 99 18 93/48 (63) 100 11/19/19 06:00 87 18 107/51 (69) 100 11/19/19 06:00 107/51 11/19/19 05:45 93 19 107/53 (71) 100 11/19/19 05:30 123/48 3/17/20 05:30 82 18 123/48 (73) 100 11/19/19 05:19 84 21 40 11/19/19 05:00 133/51 11/19/19 05:00 84 18 133/51 (78) 95 11/19/19 04:30 74 17 117/105 (109) 95 11/19/19 04:30 117/105 11/19/19 04:00 97.9 78 17 123/52 (75) 95 11/19/19 04:00 Mechanical Ventilator Mechanical Ventilator 11/19/19 04:00 123/52 11/19/19 04:00 40 11/19/19 03:30 69 18 130/54 (79) 98 11/19/19 03:30 130/54 11/19/19 03:12 68 11/19/19 03:00 69 18 118/56 (76) 99 11/19/19 03:00 118/56 11/19/19 03:00 68 18 40 11/19/19 02:30 108/50 11/19/19 02:30 72 19 108/50 (69) 96 11/19/19 02:15 80 20 100/52 (68) 98 11/19/19 02:00 59 18 96/42 (60) 99 11/19/19 02:00 103/43 11/19/19 01:45 62 13 103/43 (63) 93 11/19/19 01:30 60 18 97/47 (64) 98 11/19/19 01:00 71 14 120/45 (70) 98 11/19/19 01:00 98/27 11/19/19 01:00 67 19 40 11/19/19 00:30 60 11 99/43 (61) 98 11/19/19 00:00 Mechanical Ventilator Mechanical Ventilator 11/19/19 00:00 112/45 11/19/19 00:00 98.2 65 18 112/45 (67) 98 11/19/19 00:00 40 11/18/19 23:30 65 18 105/43 (63) 98 11/18/19 23:05 65 18 40 11/18/19 23:02 62 11/18/19 23:00 61 18 104/42 (62) 100 11/18/19 23:00 104/42 11/18/19 22:30 61 18 108/43 (64) 99 11/18/19 22:00 50 18 105/39 (61) 98 11/18/19 22:00 105/39 11/18/19 21:40 110/44 11/18/19 21:30 55 14 110/44 (66) 99 11/18/19 21:00 107/45 11/18/19 21:00 65 10 107/45 (65) 98 11/18/19 20:55 62 19 40 11/18/19 20:30 70 15 108/48 (68) 98 11/18/19 20:00 Mechanical Ventilator Mechanical Ventilator 11/18/19 20:00 99.1 68 18 104/45 (64) 96 11/18/19 20:00 40 11/18/19 20:00 104/45 11/18/19 19:47 67 11/18/19 19:30 75 18 120/45 (70) 99 11/18/19 19:24 65 18 40 11/18/19 19:00 106/49 11/18/19 19:00 67 17 106/49 (68) 98 11/18/19 18:30 64 17 103/44 (63) 98 11/18/19 18:00 58 17 113/45 (67) 98 11/18/19 18:00 113/45 11/18/19 17:30 86 19 124/54 (77) 100 11/18/19 17:05 80 18 40 11/18/19 17:00 95/45 11/18/19 17:00 62 19 95/45 (62) 97 11/18/19 16:30 68 14 97/46 (63) 99 11/18/19 16:00 40 11/18/19 16:00 65 20 124/54 (77) 99 11/18/19 16:00 100/46 11/18/19 16:00 98.3 67 13 100/46 (64) 96 11/18/19 16:00 Mechanical Ventilator Mechanical Ventilator 11/18/19 16:00 69 11/18/19 15:45 73 16 114/47 (69) 97 11/18/19 15:30 69 15 113/45 (67) 99 11/18/19 15:24 79 18 40 11/18/19 15:00 69 13 101/34 (56) 99 11/18/19 15:00 69 13 101/34 (56) 99 11/18/19 15:00 101/34 11/18/19 14:30 66 17 110/45 (66) 98 11/18/19 14:00 67 18 97/52 (67) 98 11/18/19 14:00 97/52 11/18/19 14:00 67 18 97/52 (67) 98 11/18/19 13:30 67 13 97/38 (57) 98 11/18/19 13:00 71 14 95/44 (61) 97 11/18/19 13:00 71 14 95/44 (61) 97 11/18/19 13:00 95/44 I&O Intake and Output 11/18/19 11/19/19 19:00 07:00 Intake Total 1459.63960 ml 1640.244 ml Output Total 1460 ml 1360 ml Balance -0.16163 ml 280.244 ml Intake Free Water 20 ml IV Total 739.28193 ml 700.244 ml Tube Feeding 700 ml 840 ml Other 100 ml Output Urine Total 1410 ml 1210 ml Stool Total 50 ml 150 ml Dressing: saturated Wound: other Cardiovascular: RSR Respiratory: decreased breath sounds Abdomen: soft, non-tender, present bowel sounds, non-distended Extremities: no cyanosis Laboratory Tests Test 11/18/19 15:05 11/19/19 03:25 Vancomycin Level Trough 13.1 ug/mL (5.0-12.0) H Sodium Level 136 MMOL/L (136-145) Potassium Level 4.2 MMOL/L (3.5-5.1) Chloride Level 99 MMOL/L (98-107) Carbon Dioxide Level 30 MMOL/L (21-32) Blood Urea Nitrogen 13 mg/dL (7-18) Creatinine 0.5 MG/DL (0.55-1.30) L Estimat Glomerular Filtration Rate > 60 mL/min (>60) Glucose Level 106 MG/DL (74-106) Calcium Level 9.2 MG/DL (8.5-10.1) Phosphorus Level 3.0 MG/DL (2.5-4.9) Magnesium Level 1.9 MG/DL (1.8-2.4) Plan Problems: (1) Decubitus skin ulcer Assessment & Plan: Pt presented on admission with resolving pressure injury R side to posterior aspect of neck. Base of wound is moist with pink epithelial. Mild odor noted (L)1.5cm x (W)6cm. Partial thickness stage 2 pressure injury in close proximity R side neck. Base of wound is moist and viable(L)0.7cm x (W) 0.8cm. Small amt serosanguineous exudate noted. Moist pink epithelial L side to posterior aspect of neck(L)5cm x (W)16.5cm. Within base of wound is a full thickness stage 3 pressure injury L side neck under tracheal collar. Base of wound is moist ,wan with macerated borders.(L)0.9cm x (W)2cm x (D)0.6cmSmall amt serous exudate noted. Mild odor noted. Erosion noted at GT site . Scattered areas of hyperpigmentation noted to R and L buttocks and both ischial tuberosities. Non-blanching erythema without induration noted to Sacrum. L heel Is boggy with an area of non-blanching erythema with delineated margins. R heel is soft but blanchable. Tx.Plan: Apply Zinc Oxide Paste 20% to Epithelial areas around neck Twice Daily.Place Abd pads under tracheal collar . Cleanse Wound L side of neck with Saline. Apply TheraHoney. Apply Zinc Oxide Paste periwound. Cover with Optifoam drsg Daily and prn. Apply Moisture Barrier Paste to sacrum. Cover with Optifoam drsg. Change every 3 days and prn. Apply Cavilon Skin Barrier to both heels. Cover each heel with Optifoam drsg. Change every 7 days and prn. APM/LUIGI Mattress overlay. Reposition at least every 2 hours or as tolerated. Off- Load heels with pillow. (2) Recurrent seizures Assessment & Plan: As per neurology No injury identified Rx is written (3) Feeding by G-tube Assessment & Plan: DAILY ESTIMATED NEEDS: Needs based on Obese, critical care, wound healing 65.8kg abw 22-28 kcals/kg 7492-2504 total kcals 1.25-2 g protein/kg 82-131 g total protein 25-30 mL/kg [phone] total fluid mLs NUTRITION DIAGNOSIS: 1) Swallowing difficulty R/T respiratory status as evidenced by pt trach-vent dep, GT dep 2) Increased kcal/prot needs R/T wound healing as evidenced by pt admitted w/ multiple wounds including full thickness pressure injury at L side neck under tracheal collar and partial thickness pressure injurty in close proximity to R side neck CURRENT TF:TF HELD: Jevity 1.2 @ 75ml/hr x 18 hrs ENTERAL NUTRITION RECOMMENDATIONS: Glucerna 1.2 @ 70ml/hr x 20 hrs (TF HELD FOR DILANTIN AND SYNTHROID) to provide 1200ml, 1440kcal, 67g prot, 968ml free water * FEED W/ HEMODYNAMIC STABLITY -> rec TF change to Glucerna 1.2 (h/o DM) -> Initiate Glucerna 1.2 @ 20ml/hr x 6 hrs -> advance 10ml q 4-6 hrs as tolerated to goal rate -> HOLD TF 1 HR BEFORE AND AFTER DILANTIN BID AND SYNTHROID QD (AM Dilantin and Synthroid given at the same time) -> Water flush per MD/ HOB over 30 degrees ADDITIONAL RECOMMENDATIONS: * Calibrated bed scale weights for accurate CBW (w/ added P200 mattress) * Wound healing: Continue Vit C/ add Contreras 1pkt BID via PEG * Monitor HD stability: on Dopamine * TF to run max 20 hrs w/ Dilantin BID + Synthroid QD (See above TF rec) * Monitor lytes daily w/ TF, replete as needed . (4) G-tube site cellulitis Assessment & Plan: as above (5) Abnormal LFTs Assessment & Plan: nondistended gallbladder with gallstones. Apparent gallbladder wall thickening, probably artifact of under distention but raises the possibility of acute cholecystitis. Consider nuclear medicine hepatobiliary scan if there is high clinical suspicion Negative for dilated bile ducts Echogenic foci in the left renal sinus, could represent nonobstructive calculi within the be artifactual given lack of evidence of such on prior CT scan Incidental findings left lower pole renal cyst, dystrophic right right lobe liver calcification Note incomplete visualization of portions of the abdominal aorta Additional Comments Interstitial and vascular prominence demonstrated with cardiomegaly. The left costophrenic angle is obscured but this is chronic. There is a tracheostomy again noted. IMPRESSION: No significant change. Suspected interstitial edema. Possible left pleural effusion [email or web address] Nov 19, 2019 12:30
--- NOTE | 2019-11-19 14:39 | Infectious Diseases Prog Note ---
Assessment/Plan Assessment/Plan ASSESSMENT AND PLAN: 1. esbl e.coli uti, streptococcus/proteus/providencia pna, ? 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 Hogan, stable from ID standpoint 2. The patient has history of trach, vent, and respiratory failure. 3. History of sepsis. 4. Quadriplegia and weakness. 5. History of CAD and STEMI, CHF 6. Hypertension. 7. Diabetes. 8. Blood sugar and blood pressure treatment per primary team for diabetes and hypertension. 9. Dementia. 10. Seizure history. 11. Chronic obstructive pulmonary disease. 12. History of diverticulosis. 13. Quadriplegia. 14. Encephalopathy. 15. Continue treatment per primary consultants. 16. Allergic to peanuts. 17. Social history is negative. 18. Family history is noncontributory. 19. MAR is noted. 20. Case was discussed with RN. Subjective Constitutional: Reports: other - no pressors, + vent ; Denies: fever HEENT: Reports: congestion Respiratory: Reports: shortness of breath Cardiovascular: Denies: chest pain Gastrointestinal/Abdominal: Denies: nausea, vomiting, diarrhea Genitourinary: Denies: dysuria, hematuria Neurologic: Denies: headache Psychiatric: Denies: depression Skin: Denies: rash Hematologic: Denies: bleeding Musculoskeletal: Denies: pain Allergies: Coded Allergies: PEANUT (Verified Allergy, Unknown, 09/22/16) Uncoded Allergies: PEANUTS (Allergy, Unknown, 02/04/19) Objective Vital Signs Last 24 Hour Vital Signs Date Time Temp Pulse Resp B/P (MAP) Pulse Ox O2 Delivery O2 Flow Rate FiO2 11/19/19 13:00 86 19 115/52 (73) 96 11/19/19 13:00 115/52 11/19/19 12:30 92 24 122/51 (74) 100 11/19/19 12:26 93 22 40 11/19/19 12:00 106/56 11/19/19 12:00 98.4 86 18 106/51 (69) 98 11/19/19 12:00 Mechanical Ventilator Mechanical Ventilator 11/19/19 11:30 80 19 98/49 (65) 98 11/19/19 11:09 75 18 40 11/19/19 11:00 76 18 101/52 (68) 97 11/19/19 11:00 94/53 11/19/19 10:30 73 18 102/52 (69) 99 11/19/19 10:00 98/50 11/19/19 10:00 73 18 98/50 (66) 99 11/19/19 09:30 83 18 106/49 (68) 99 11/19/19 09:05 83 18 40 11/19/19 09:00 83 18 103/45 (64) 99 11/19/19 09:00 103/45 11/19/19 08:30 78 18 101/51 (68) 96 11/19/19 08:00 84 11/19/19 08:00 40 11/19/19 08:00 Mechanical Ventilator Mechanical Ventilator 11/19/19 08:00 104/47 11/19/19 08:00 98.1 85 18 104/47 (66) 98 11/19/19 07:30 85 18 107/56 (73) 98 11/19/19 07:05 82 18 40 11/19/19 07:00 79 18 103/56 (72) 100 11/19/19 07:00 103/56 11/19/19 06:53 81 17 105/48 (67) 99 11/19/19 06:50 76/49 11/19/19 06:48 84 18 79/49 (59) 99 11/19/19 06:45 87 19 86/50 (62) 100 11/19/19 06:30 93/48 11/19/19 06:30 99 18 93/48 (63) 100 11/19/19 06:00 87 18 107/51 (69) 100 11/19/19 06:00 107/51 11/19/19 05:45 93 19 107/53 (71) 100 11/19/19 05:30 123/48 11/19/19 05:30 82 18 123/48 (73) 100 11/19/19 05:19 84 21 40 11/19/19 05:00 133/51 11/19/19 05:00 84 18 133/51 (78) 95 11/19/19 04:30 74 17 117/105 (109) 95 11/19/19 04:30 117/105 11/19/19 04:00 97.9 78 17 123/52 (75) 95 11/19/19 04:00 Mechanical Ventilator Mechanical Ventilator 11/19/19 04:00 123/52 11/19/19 04:00 40 11/19/19 03:30 69 18 130/54 (79) 98 11/19/19 03:30 130/54 11/19/19 03:12 68 11/19/19 03:00 69 18 118/56 (76) 99 11/19/19 03:00 118/56 11/19/19 03:00 68 18 40 11/19/19 02:30 108/50 11/19/19 02:30 72 19 108/50 (69) 96 11/19/19 02:15 80 20 100/52 (68) 98 11/19/19 02:00 59 18 96/42 (60) 99 11/19/19 02:00 103/43 11/19/19 01:45 62 13 103/43 (63) 93 11/19/19 01:30 60 18 97/47 (64) 98 11/19/19 01:00 71 14 120/45 (70) 98 11/19/19 01:00 98/27 11/19/19 01:00 67 19 40 11/19/19 00:30 60 11 99/43 (61) 98 11/19/19 00:00 Mechanical Ventilator Mechanical Ventilator 11/19/19 00:00 112/45 11/19/19 00:00 98.2 65 18 112/45 (67) 98 11/19/19 00:00 40 11/18/19 23:30 65 18 105/43 (63) 98 11/18/19 23:05 65 18 40 11/18/19 23:02 62 11/18/19 23:00 61 18 104/42 (62) 100 11/18/19 23:00 104/42 11/18/19 22:30 61 18 108/43 (64) 99 11/18/19 22:00 50 18 105/39 (61) 98 11/18/19 22:00 105/39 11/18/19 21:40 110/44 11/18/19 21:30 55 14 110/44 (66) 99 11/18/19 21:00 107/45 11/18/19 21:00 65 10 107/45 (65) 98 11/18/19 20:55 62 19 40 11/18/19 20:30 70 15 108/48 (68) 98 11/18/19 20:00 Mechanical Ventilator Mechanical Ventilator 11/18/19 20:00 99.1 68 18 104/45 (64) 96 11/18/19 20:00 40 11/18/19 20:00 104/45 11/18/19 19:47 67 11/18/19 19:30 75 18 120/45 (70) 99 11/18/19 19:24 65 18 40 11/18/19 19:00 106/49 11/18/19 19:00 67 17 106/49 (68) 98 11/18/19 18:30 64 17 103/44 (63) 98 11/18/19 18:00 58 17 113/45 (67) 98 11/18/19 18:00 113/45 11/18/19 17:30 86 19 124/54 (77) 100 11/18/19 17:05 80 18 40 11/18/19 17:00 95/45 11/18/19 17:00 62 19 95/45 (62) 97 11/18/19 16:30 68 14 97/46 (63) 99 11/18/19 16:00 40 11/18/19 16:00 65 20 124/54 (77) 99 11/18/19 16:00 100/46 11/18/19 16:00 98.3 67 13 100/46 (64) 96 11/18/19 16:00 Mechanical Ventilator Mechanical Ventilator 11/18/19 16:00 69 11/18/19 15:45 73 16 114/47 (69) 97 11/18/19 15:30 69 15 113/45 (67) 99 11/18/19 15:24 79 18 40 11/18/19 15:00 69 13 101/34 (56) 99 11/18/19 15:00 69 13 101/34 (56) 99 11/18/19 15:00 101/34 11/18/19 14:30 66 17 110/45 (66) 98 Height (Feet): 5 Height (Inches): 3.00 Weight (Pounds): 205 General Appearance: no acute distress HEENT: normocephalic, atraumatic, anicteric, no JVD, status post trach Respiratory/Chest: crackles/rales, rhonchi - bilaterally Cardiovascular: normal rate, regular rhythm, no gallop/murmur, no JVD Abdomen: normal bowel sounds, soft, non tender, no organomegaly, non distended Genitourinary: other - + gould - urine clearer Extremities: no cyanosis Skin: no rash Neurologic/Psychiatric: hold worker II-XII grossly normal, 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 Background mostly interstitial disease is unchanged, over one day Abdominal US: Impression: Nondistended gallbladder with gallstones. Apparent gallbladder wall thickening, probably artifact of under distention but raises the possibility of acute cholecystitis. Consider nuclear medicine hepatobiliary scan if there is high clinical suspicion Negative for dilated bile ducts Chest x-ray - 11/15/19 - Procedure: XRAY Chest 1v Indication: Dyspnea Comparison: 11/12/2019 A single view chest radiograph was obtained. Findings: Interstitial and vascular prominence demonstrated with cardiomegaly. The left costophrenic angle is obscured but this is chronic. There is a tracheostomy again noted. IMPRESSION: No significant change. Suspected interstitial edema. Possible left pleural effusion Microbiology Date/Time Source Procedure Growth Status 11/13/19 19:35 Blood Blood Culture - Final NO GROWTH AFTER 5 DAYS Complete 11/11/19 10:20 Nasal Nares MRSA Culture - Final NO METHICILLIN RESISTANT STAPH AUREUS... Complete 11/12/19 20:00 Stool Clostridium difficile Toxin Assay - Final Complete 11/11/19 09:14 Urine,Clean Catch Urine Culture - Final Escherichia Coli - Esbl Complete 11/11/19 10:20 Rectum - Final NO CARBAPENEM-RESISTANT ENTEROBACTERI... Complete Labs Test 11/17/19 05:25 11/18/19 04:10 11/18/19 15:05 11/19/19 03:25 White Blood Count 6.6 K/UL (4.8-10.8) 6.4 K/UL (4.8-10.8) Red Blood Count 3.81 M/UL (4.20-5.40) 3.71 M/UL (4.20-5.40) Hemoglobin 13.0 G/DL (12.0-16.0) 12.3 G/DL (12.0-16.0) Hematocrit 37.4 % (37.0-47.0) 36.2 % (37.0-47.0) Mean Corpuscular Volume 98 FL (80-99) 98 FL (80-99) Mean Corpuscular Hemoglobin 34.0 PG (27.0-31.0) 33.3 PG (27.0-31.0) Mean Corpuscular Hemoglobin Concent 34.6 G/DL (32.0-36.0) 34.1 G/DL (32.0-36.0) Red Cell Distribution Width 13.3 % (11.6-14.8) 13.3 % (11.6-14.8) Platelet Count 217 K/UL (150-450) 221 K/UL (150-450) Mean Platelet Volume 8.4 FL (6.5-10.1) 8.4 FL (6.5-10.1) Neutrophils (%) (Auto) 61.1 % (45.0-75.0) 63.8 % (45.0-75.0) Lymphocytes (%) (Auto) 19.9 % (20.0-45.0) 20.8 % (20.0-45.0) Monocytes (%) (Auto) 8.7 % (1.0-10.0) 8.8 % (1.0-10.0) Eosinophils (%) (Auto) 9.5 % (0.0-3.0) 5.8 % (0.0-3.0) Basophils (%) (Auto) 0.7 % (0.0-2.0) 0.9 % (0.0-2.0) Sodium Level 140 MMOL/L (136-145) 138 MMOL/L (136-145) 136 MMOL/L (136-145) Potassium Level 3.9 MMOL/L (3.5-5.1) 4.2 MMOL/L (3.5-5.1) 4.2 MMOL/L (3.5-5.1) Chloride Level 103 MMOL/L (98-107) 103 MMOL/L (98-107) 99 MMOL/L (98-107) Carbon Dioxide Level 30 MMOL/L (21-32) 27 MMOL/L (21-32) 30 MMOL/L (21-32) Anion Gap 7 mmol/L (5-15) 8 mmol/L (5-15) Blood Urea Nitrogen 10 mg/dL (7-18) 12 mg/dL (7-18) 13 mg/dL (7-18) Creatinine 0.5 MG/DL (0.55-1.30) 0.5 MG/DL (0.55-1.30) 0.5 MG/DL (0.55-1.30) Estimat Glomerular Filtration Rate > 60 mL/min (>60) > 60 mL/min (>60) > 60 mL/min (>60) Glucose Level 124 MG/DL (74-106) 128 MG/DL (74-106) 106 MG/DL (74-106) Calcium Level 9.5 MG/DL (8.5-10.1) 9.3 MG/DL (8.5-10.1) 9.2 MG/DL (8.5-10.1) Phosphorus Level 3.5 MG/DL (2.5-4.9) 3.3 MG/DL (2.5-4.9) 3.0 MG/DL (2.5-4.9) Magnesium Level 1.6 MG/DL (1.8-2.4) 1.9 MG/DL (1.8-2.4) 1.9 MG/DL (1.8-2.4) Total Bilirubin 0.3 MG/DL (0.2-1.0) 0.2 MG/DL (0.2-1.0) Aspartate Amino Transf (AST/SGOT) 22 U/L (15-37) 18 U/L (15-37) Alanine Aminotransferase (ALT/SGPT) 16 U/L (12-78) 20 U/L (12-78) Alkaline Phosphatase 211 U/L (46-116) 194 U/L (46-116) Pro-B-Type Natriuretic Peptide 155 pg/mL (0-125) Total Protein 7.9 G/DL (6.4-8.2) 7.3 G/DL (6.4-8.2) Albumin 2.3 G/DL (3.4-5.0) 2.0 G/DL (3.4-5.0) Globulin 5.6 g/dL 5.3 g/dL Albumin/Globulin Ratio 0.4 (1.0-2.7) 0.4 (1.0-2.7) Vancomycin Level Trough 13.1 ug/mL (5.0-12.0) Laboratory Tests Test 11/18/19 15:05 11/19/19 03:25 Vancomycin Level Trough 13.1 ug/mL (5.0-12.0) H Sodium Level 136 MMOL/L (136-145) Potassium Level 4.2 MMOL/L (3.5-5.1) Chloride Level 99 MMOL/L (98-107) Carbon Dioxide Level 30 MMOL/L (21-32) Blood Urea Nitrogen 13 mg/dL (7-18) Creatinine 0.5 MG/DL (0.55-1.30) L Estimat Glomerular Filtration Rate > 60 mL/min (>60) Glucose Level 106 MG/DL (74-106) Calcium Level 9.2 MG/DL (8.5-10.1) Phosphorus Level 3.0 MG/DL (2.5-4.9) Magnesium Level 1.9 MG/DL (1.8-2.4) Current Medications Medications (Trade) Dose Ordered Sig/Boubacar Route PRN Reason Start Time Stop Time Status Last Admin Dose Admin Acetaminophen (Tylenol) 650 mg Q6H PRN GT Mild Pain/Temp > 100.5 11/11/19 14:30 12/11/19 14:29 Ascorbic Acid (Vitamin C) 500 mg DAILY NG 11/12/19 09:00 12/12/19 08:59 11/19/19 08:40 Chlorhexidine Gluconate ([place]-Hex 2%) 1 applic DAILY@1999 TOPIC 11/13/19 20:00 12/13/19 19:59 11/18/19 19:46 Dextrose (Dextrose 50%) 25 ml Q30M PRN IV Hypoglycemia 11/11/19 20:30 12/11/19 20:29 Dextrose (Dextrose 50%) 50 ml Q30M PRN IV Hypoglycemia 11/11/19 20:30 12/11/19 20:29 Docusate Sodium (Colace) 100 mg DAILY GT 11/12/19 09:00 4/9/20 08:59 11/19/19 08:40 Dopamine HCl/ Dextrose 250 ml @ 0 mls/hr Q24H IV 11/11/19 23:00 12/11/19 22:59 11/18/19 21:40 Ferrous Sulfate (Feosol) 300 mg THREE TIMES A DAY GT 11/11/19 18:00 12/11/19 17:59 11/19/19 13:22 Insulin Aspart (NovoLOG) BEFORE MEALS AND HS SUBQ 11/11/19 22:00 12/11/19 21:59 Levothyroxine Sodium (Synthroid) 150 mcg DAILY@0630 GT 11/12/19 06:30 12/12/19 06:29 11/19/19 05:43 Meropenem 1 gm/ Sodium Chloride 100 ml @ 200 mls/hr Q8HR IVPB 11/17/19 14:00 11/25/19 19:59 11/19/19 13:22 Multivitamins (Multivitamins W/ Minerals 15ml Liquid) 15 ml DAILY GT 11/12/19 09:00 12/12/19 08:59 11/19/19 08:40 Ondansetron HCl (Zofran) 4 mg Q6H PRN IVP Nausea & Vomiting 11/12/19 03:00 12/12/19 02:59 11/12/19 03:48 Phenytoin (Dilantin) 250 mg Q12HR@0630,1830 GT 11/12/19 18:30 12/12/19 18:29 11/19/19 05:44 Vancomycin HCl (Vanco rx to dose) 1 ea DAILY PRN MISC Per rx protocol 11/12/19 13:30 12/12/19 13:29 Vancomycin HCl 750 mg/Sodium Chloride 275 ml @ 183.333 mls/hr Q12H IVPB 11/17/19 04:00 11/22/19 03:59 11/19/19 03:33 Zinc Oxide (Zinc Oxide) 1 applic BID TOPIC 11/12/19 10:00 12/12/19 09:59 11/19/19 08:40 Leslie Corrales MD Nov 19, 2019 14:39
[2019-11-19] MEDS: Dyna-Hex 2% Top Sol 2oz TOPIC SCH (20:39)
--- NOTE | 2019-11-19 22:30 | Progress Note ---
DATE: 11/19/2019 CARDIOLOGY PROGRESS NOTE SUBJECTIVE: Blood pressure parameters low normal range. The patient off IV fluids, but she remains on dopamine drip, on ventilator support. OBJECTIVE: VITAL SIGNS: Blood pressure 102/52, pulse rate 72, respiratory rate 18. Monitored rhythm, sinus with episodes of second-degree AV block, but no recurring junctional rhythm. conduction was noted type I. LUNGS: Rhonchi bilaterally. Thin secretions. CARDIAC: Regular rhythm and rate. Normal S1, S2. ABDOMEN: Soft. G-tube intact. EXTREMITIES: No edema. IMPRESSION: 1. Sepsis. 2. Seizure disorder. 3. Recovered shock. 4. 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 PLAN: 1. Continue efforts to wean off pressors completely. 2. Monitor cardiorenal parameters and volume status. 3. No role for permanent pacemaker at this time. 4. Replace electrolytes as needed. 5. Nutritional support. 6. Ventilatory support and respiratory hygiene. Eder Tenorio M.D. DR: GEETHA JOB#: [id number] CC:
[2019-11-19] MEDS: DOPamine 400mg/250ml 250 ML IV SCH (23:00)
[2019-11-20] VITALS (16 sets, daily range): BP systolic 94–126; BP diastolic 46–100
[2019-11-20 05:34] LABS: BASOPHILS % (AUTO) 1.3 % (0.0-2.0); EOSINOPHILS % (AUTO) 5.7 % (0.0-3.0); HEMATOCRIT 32.5 % (37.0-47.0); HEMOGLOBIN 11.5 G/DL (12.0-16.0); LYMPHOCYTES % (AUTO) 22.2 % (20.0-45.0); MEAN CORPUSCULAR VOLUME 97 FL (80-99); MONOCYTES % (AUTO) 8.3 % (1.0-10.0); NEUTROPHILS % (AUTO) 62.5 % (45.0-75.0); PLATELET COUNT 189 K/UL (150-450); RED BLOOD COUNT 3.34 M/UL (4.20-5.40); RED CELL DISTRIBUTION WIDTH 13.1 % (11.6-14.8); WHITE BLOOD COUNT 7.2 K/UL (4.8-10.8)
[2019-11-20 05:50] LABS: ALANINE AMINOTRANSFERASE 15 U/L (12-78); ALBUMIN 2.3 G/DL (3.4-5.0); ALBUMIN/GLOBULIN RATIO 0.4 (1.0-2.7); ALKALINE PHOSPHATASE 192 U/L (46-116); ANION GAP 6 mmol/L (5-15); ASPARTATE AMINO TRANSFERASE 25 U/L (15-37); BILIRUBIN,TOTAL 0.2 MG/DL (0.2-1.0); BLOOD UREA NITROGEN 15 mg/dL (7-18); CALCIUM 9.2 MG/DL (8.5-10.1); CARBON DIOXIDE 30 MMOL/L (21-32); CHLORIDE 103 MMOL/L (98-107); CREATININE 0.5 MG/DL (0.55-1.30); POTASSIUM 4.7 MMOL/L (3.5-5.1); SODIUM 139 MMOL/L (136-145)
[2019-11-20] MEDS: Phenytoin Susp 100mg/4ml GT SCH (06:00)
[2019-11-20] MEDS: NovoLOG Insulin Flexpen SUBQ SCH ×3 (06:01→16:10)
[2019-11-20] MEDS: Docusate 100mg/10ml Liq GT SCH (08:34)
[2019-11-20] MEDS: Ascorbic Acid 500mg tab NG SCH (08:34)
[2019-11-20] MEDS: Multivitamins W/Minerals 15 ML UDC GT SCH (08:35)
[2019-11-20] MEDS: Zinc Oxide Oint 2oz TOPIC SCH (08:35)
[2019-11-20] MEDS: Ferrous Sulfate 300 MG/5 ML UDC GT SCH ×2 (08:35→13:37)
[2019-11-20] MEDS ORDERED: Lidocaine 1% Plain 30 ml INJ PRN (09:30)
[2019-11-20] MEDS ORDERED: Lidocaine 1% Plain 30 ml INJ SCH (09:30)
[2019-11-20] MEDS ORDERED: Tubing IV Secondary IV ONE ×4 (09:36→16:29)
[2019-11-20] MEDS ORDERED: NS 275ml ONE ×5 (09:36→16:29)
--- NOTE | 2019-11-20 09:43 | Pulmonology Progress Note ---
Assessment/Plan Assessment/Plan IMPRESSION: 1. Supratherapeutic Dilantin level. Now normal 2. Questionable seizure. 3. UTI. 4. Chronic respiratory failure. 5. Septic shock. 6. Bradycardia 7. Polymicrobial pneumonia DISCUSSION: Seen by cardiology and ID. Continue vent. Continue present medications care. I will follow carefully. Heart rate better Insert midline vs PICC DC to SNF on 5 days of Meropenem Grabiel Hogan M.D. Subjective Interval Events: MNone new Constitutional: Reports: no symptoms HEENT: Repors: no symptoms Respiratory: Reports: no symptoms Cardiovascular: Reports: no symptoms Allergies: Coded Allergies: PEANUT (Verified Allergy, Unknown, 09/22/16) Uncoded Allergies: PEANUTS (Allergy, Unknown, 02/04/19) Objective Last 24 Hour Vital Signs Date Time Temp Pulse Resp B/P (MAP) Pulse Ox O2 Delivery O2 Flow Rate FiO2 11/20/19 09:00 89 18 122/100 (107) 97 11/20/19 08:00 Mechanical Ventilator Mechanical Ventilator 11/20/19 08:00 98.0 71 18 105/46 (65) 98 11/20/19 08:00 40 11/20/19 08:00 86 11/20/19 07:00 75 18 99/49 (66) 97 11/20/19 06:45 75 18 40 11/20/19 06:00 77 18 104/54 (71) 98 11/20/19 05:05 79 19 40 11/20/19 04:00 98.6 83 18 114/52 (72) 99 11/20/19 04:00 83 11/20/19 04:00 40 11/20/19 04:00 Mechanical Ventilator Mechanical Ventilator 11/20/19 03:02 85 18 40 11/20/19 03:00 85 18 124/56 (78) 96 11/20/19 02:00 82 18 94/66 (75) 96 11/20/19 01:04 80 18 40 11/20/19 01:00 83 18 126/55 (78) 97 11/20/19 00:00 83 3/18/20 00:00 98.5 81 18 111/51 (71) 96 11/20/19 00:00 Mechanical Ventilator Mechanical Ventilator 11/20/19 00:00 40 11/19/19 23:00 82 18 103/53 (70) 97 11/19/19 23:00 103/53 11/19/19 22:35 83 18 40 11/19/19 22:00 87 18 112/50 (70) 98 11/19/19 21:09 82 18 40 11/19/19 21:00 78 18 98/54 (69) 98 11/19/19 20:00 98.4 80 18 114/54 (74) 97 11/19/19 20:00 40 11/19/19 20:00 Mechanical Ventilator Mechanical Ventilator 11/19/19 20:00 71 11/19/19 19:10 93 23 40 11/19/19 19:00 94 19 107/66 (80) 97 11/19/19 18:30 92 19 130/63 (85) 95 11/19/19 18:00 90 18 113/54 (73) 97 11/19/19 17:20 91 18 40 11/19/19 17:00 120/53 11/19/19 17:00 88 18 120/53 (75) 93 11/19/19 16:30 88 18 106/74 (85) 97 11/19/19 16:00 98.5 89 18 116/66 (83) 96 11/19/19 16:00 40 11/19/19 16:00 91 11/19/19 16:00 108/52 11/19/19 16:00 Mechanical Ventilator Mechanical Ventilator 11/19/19 15:30 90 18 40 11/19/19 15:30 89 19 120/49 (72) 97 11/19/19 15:00 107/49 11/19/19 15:00 90 18 110/52 (71) 97 11/19/19 14:30 89 18 110/51 (70) 97 11/19/19 14:00 92 19 110/51 (70) 97 11/19/19 14:00 103/50 11/19/19 13:30 102 20 119/69 (86) 97 11/19/19 13:00 86 19 115/52 (73) 96 11/19/19 13:00 115/52 3/17/20 12:30 92 24 122/51 (74) 100 11/19/19 12:26 93 22 40 11/19/19 12:00 81 11/19/19 12:00 40 11/19/19 12:00 106/56 11/19/19 12:00 98.4 86 18 106/51 (69) 98 11/19/19 12:00 Mechanical Ventilator Mechanical Ventilator 11/19/19 11:30 80 19 98/49 (65) 98 11/19/19 11:09 75 18 40 11/19/19 11:00 76 18 101/52 (68) 97 11/19/19 11:00 94/53 11/19/19 10:30 73 18 102/52 (69) 99 11/19/19 10:00 98/50 11/19/19 10:00 73 18 98/50 (66) 99 Intake and Output 11/19/19 11/20/19 19:00 07:00 Intake Total 988.735 ml 940 ml Output Total 1040 ml 685 ml Balance -51.265 ml 255 ml IV Total 148.735 ml 100 ml Tube Feeding 840 ml 840 ml Output Urine Total 1040 ml 585 ml Stool Total 100 ml General Appearance: no acute distress HEENT: normocephalic Respiratory/Chest: chest wall non-tender Cardiovascular: normal peripheral pulses Abdomen: normal bowel sounds Laboratory Tests 11/20/19 03:50: White Blood Count 7.2, Red Blood Count 3.34L, Hemoglobin 11.5L, Hematocrit 32.5L , Mean Corpuscular Volume 97, Mean Corpuscular Hemoglobin 34.5H, Mean Corpuscular Hemoglobin Concent 35.5, Red Cell Distribution Width 13.1, Platelet Count 189, Mean Platelet Volume 8.6, Neutrophils (%) (Auto) 62.5, Lymphocytes (% ) (Auto) 22.2, Monocytes (%) (Auto) 8.3, Eosinophils (%) (Auto) 5.7H, Basophils (%) (Auto) 1.3, Sodium Level 139, Potassium Level 4.7, Chloride Level 103, Carbon Dioxide Level 30, Anion Gap 6, Blood Urea Nitrogen 15, Creatinine 0.5L, Estimat Glomerular Filtration Rate > 60, Glucose Level 100, Calcium Level 9.2, Total Bilirubin 0.2, Aspartate Amino Transf (AST/SGOT) 25, Alanine Aminotransferase (ALT/SGPT) 15, Alkaline Phosphatase 192H, Total Protein 7.9, Albumin 2.3L, Globulin 5.6, Albumin/Globulin Ratio 0.4L Current Medications Medications (Trade) Dose Ordered Sig/Boubacar Route PRN Reason Start Time Stop Time Status Last Admin Dose Admin Acetaminophen (Tylenol) 650 mg Q6H PRN GT Mild Pain/Temp > 100.5 11/11/19 14:30 12/11/19 14:29 Ascorbic Acid (Vitamin C) 500 mg DAILY NG 11/12/19 09:00 12/12/19 08:59 11/20/19 08:34 Chlorhexidine Gluconate ([place]-Hex 2%) 1 applic DAILY@2000 TOPIC 11/20/19 20:00 02/18/20 19:59 Dextrose (Dextrose 50%) 25 ml Q30M PRN IV Hypoglycemia 11/11/19 20:30 12/11/19 20:29 Dextrose (Dextrose 50%) 50 ml Q30M PRN IV Hypoglycemia 11/11/19 20:30 12/11/19 20:29 Docusate Sodium (Colace) 100 mg DAILY GT 11/12/19 09:00 12/12/19 08:59 11/20/19 08:34 Dopamine HCl/ Dextrose 250 ml @ 0 mls/hr Q24H IV 11/11/19 23:00 12/11/19 22:59 11/18/19 21:40 Ferrous Sulfate (Feosol) 300 mg THREE TIMES A DAY GT 11/11/19 18:00 12/11/19 17:59 11/20/19 08:35 Insulin Aspart (NovoLOG) BEFORE MEALS AND HS SUBQ 11/11/19 22:00 12/11/19 21:59 Levothyroxine Sodium (Synthroid) 150 mcg DAILY@0630 GT 11/12/19 06:30 12/12/19 06:29 11/20/19 06:00 Lidocaine HCl (Xylocaine 1% 30ml) 30 ml ONCE PRN INJ PICC 11/20/19 09:30 11/20/19 23:59 Meropenem 1 gm/ Sodium Chloride 100 ml @ 200 mls/hr Q8HR IVPB 11/17/19 14:00 11/25/19 19:59 11/20/19 05:59 Multivitamins (Multivitamins W/ Minerals 15ml Liquid) 15 ml DAILY GT 11/12/19 09:00 12/12/19 08:59 11/20/19 08:35 Ondansetron HCl (Zofran) 4 mg Q6H PRN IVP Nausea & Vomiting 11/12/19 03:00 12/12/19 02:59 11/12/19 03:48 Phenytoin (Dilantin) 250 mg Q12HR@0630,1830 GT 11/12/19 18:30 12/12/19 18:29 11/20/19 06:00 Zinc Oxide (Zinc Oxide) 1 applic BID TOPIC 11/12/19 10:00 12/12/19 09:59 11/20/19 08:35 Grabiel Hogan MD Nov 20, 2019 09:43
[2019-11-20] MEDS ORDERED: MEROPENEM1 GM IV (09:45)
[2019-11-20] MEDS ORDERED: Heparin1,000 units/500ml Premix(Conc:2 units/ml) IV PRN (11:30)
[2019-11-20] MEDS ORDERED: Heparin1,000 units/500ml Premix(Conc:2 units/ml) IV SCH (11:30)
--- NOTE | 2019-11-20 11:59 | Nephrology Progress Note ---
Assessment/Plan Plan # Hypokalemia - improved #Respiratory failure s/p trach # Seizure. # sepsis due to UTI #possible peneumonia #h/o anoxic brain injury #functional quadroplegia # Mobitz 1second-degree AV block and intermittent AV dissociation - monitor BMP, mag and phos - replete lytes - continue TF - continue abx per ID - on dopamine drip- maintain MAP > 65 - monitor lytes - daily BMP Subjective Subjective nephrology progress note remains in ICU labs reviewed On vent Objective Objective Last 24 Hour Vital Signs Date Time Temp Pulse Resp B/P (MAP) Pulse Ox O2 Delivery O2 Flow Rate FiO2 11/20/19 11:00 77 18 114/51 (72) 99 11/20/19 10:00 94 19 110/47 (68) 98 11/20/19 09:00 89 18 122/100 (107) 97 11/20/19 08:50 84 20 40 11/20/19 08:00 Mechanical Ventilator Mechanical Ventilator 11/20/19 08:00 98.0 71 18 105/46 (65) 98 11/20/19 08:00 40 11/20/19 08:00 86 11/20/19 07:00 75 18 99/49 (66) 97 11/20/19 06:45 75 18 40 11/20/19 06:00 77 18 104/54 (71) 98 11/20/19 05:05 79 19 40 11/20/19 04:00 98.6 83 18 114/52 (72) 99 11/20/19 04:00 83 11/20/19 04:00 40 11/20/19 04:00 Mechanical Ventilator Mechanical Ventilator 11/20/19 03:02 85 18 40 11/20/19 03:00 85 18 124/56 (78) 96 11/20/19 02:00 82 18 94/66 (75) 96 11/20/19 01:04 80 18 40 11/20/19 01:00 83 18 126/55 (78) 97 11/20/19 00:00 83 11/20/19 00:00 98.5 81 18 111/51 (71) 96 11/20/19 00:00 Mechanical Ventilator Mechanical Ventilator 11/20/19 00:00 40 11/19/19 23:00 82 18 103/53 (70) 97 11/19/19 23:00 103/53 11/19/19 22:35 83 18 40 11/19/19 22:00 87 18 112/50 (70) 98 11/19/19 21:09 82 18 40 11/19/19 21:00 78 18 98/54 (69) 98 11/19/19 20:00 98.4 80 18 114/54 (74) 97 11/19/19 20:00 40 11/19/19 20:00 Mechanical Ventilator Mechanical Ventilator 11/19/19 20:00 71 11/19/19 19:10 93 23 40 11/19/19 19:00 94 19 107/66 (80) 97 11/19/19 18:30 92 19 130/63 (85) 95 11/19/19 18:00 90 18 113/54 (73) 97 11/19/19 17:20 91 18 40 11/19/19 17:00 120/53 11/19/19 17:00 88 18 120/53 (75) 93 11/19/19 16:30 88 18 106/74 (85) 97 11/19/19 16:00 98.5 89 18 116/66 (83) 96 11/19/19 16:00 40 11/19/19 16:00 91 11/19/19 16:00 108/52 11/19/19 16:00 Mechanical Ventilator Mechanical Ventilator 11/19/19 15:30 90 18 40 11/19/19 15:30 89 19 120/49 (72) 97 11/19/19 15:00 107/49 11/19/19 15:00 90 18 110/52 (71) 97 11/19/19 14:30 89 18 110/51 (70) 97 11/19/19 14:00 92 19 110/51 (70) 97 11/19/19 14:00 103/50 11/19/19 13:30 102 20 119/69 (86) 97 11/19/19 13:00 86 19 115/52 (73) 96 11/19/19 13:00 115/52 11/19/19 12:30 92 24 122/51 (74) 100 11/19/19 12:26 93 22 40 11/19/19 12:00 81 11/19/19 12:00 40 11/19/19 12:00 106/56 11/19/19 12:00 98.4 86 18 106/51 (69) 98 11/19/19 12:00 Mechanical Ventilator Mechanical Ventilator Intake and Output 11/19/19 11/20/19 19:00 07:00 Intake Total 988.735 ml 940 ml Output Total 1040 ml 685 ml Balance -51.265 ml 255 ml IV Total 148.735 ml 100 ml Tube Feeding 840 ml 840 ml Output Urine Total 1040 ml 585 ml Stool Total 100 ml Laboratory Tests 11/20/19 03:50: White Blood Count 7.2, Red Blood Count 3.34L, Hemoglobin 11.5L, Hematocrit 32.5L , Mean Corpuscular Volume 97, Mean Corpuscular Hemoglobin 34.5H, Mean Corpuscular Hemoglobin Concent 35.5, Red Cell Distribution Width 13.1, Platelet Count 189, Mean Platelet Volume 8.6, Neutrophils (%) (Auto) 62.5, Lymphocytes (% ) (Auto) 22.2, Monocytes (%) (Auto) 8.3, Eosinophils (%) (Auto) 5.7H, Basophils (%) (Auto) 1.3, Sodium Level 139, Potassium Level 4.7, Chloride Level 103, Carbon Dioxide Level 30, Anion Gap 6, Blood Urea Nitrogen 15, Creatinine 0.5L, Estimat Glomerular Filtration Rate > 60, Glucose Level 100, Calcium Level 9.2, Total Bilirubin 0.2, Aspartate Amino Transf (AST/SGOT) 25, Alanine Aminotransferase (ALT/SGPT) 15, Alkaline Phosphatase 192H, Total Protein 7.9, Albumin 2.3L, Globulin 5.6, Albumin/Globulin Ratio 0.4L Height (Feet): 5 Height (Inches): 3.00 Weight (Pounds): 203 Objective General Appearance: no apparent distress, other - on vent- trach and peg Lines, tubes and drains: peripheral HEENT: normocephalic, atraumatic Neck: supple Respiratory/Chest: lungs clear Cardiovascular/Chest: normal peripheral pulses, normal rate, regular rhythm Abdomen: soft Extremities: normal range of motion, normal inspection, non-pitting Neurologic: alert eBar Nice M.D. Nov 20, 2019 11:59
--- NOTE | 2019-11-20 12:51 | Surgery Progress Note ---
Surgery Progress Note Subjective Additional Comments picc line placed ready for d/c stable otherwise exam performed and improving Objective Last 24 Hour Vital Signs Date Time Temp Pulse Resp B/P (MAP) Pulse Ox O2 Delivery O2 Flow Rate FiO2 11/20/19 12:00 97.6 92 18 122/55 (77) 100 11/20/19 12:00 Mechanical Ventilator Mechanical Ventilator 11/20/19 12:00 40 11/20/19 12:00 84 11/20/19 11:00 77 18 114/51 (72) 99 11/20/19 10:30 81 19 40 11/20/19 10:00 94 19 110/47 (68) 98 11/20/19 09:00 89 18 122/100 (107) 97 11/20/19 08:50 84 20 40 11/20/19 08:00 Mechanical Ventilator Mechanical Ventilator 11/20/19 08:00 98.0 71 18 105/46 (65) 98 11/20/19 08:00 40 11/20/19 08:00 86 11/20/19 07:00 75 18 99/49 (66) 97 11/20/19 06:45 75 18 40 11/20/19 06:00 77 18 104/54 (71) 98 11/20/19 05:05 79 19 40 11/20/19 04:00 98.6 83 18 114/52 (72) 99 11/20/19 04:00 83 11/20/19 04:00 40 11/20/19 04:00 Mechanical Ventilator Mechanical Ventilator 11/20/19 03:02 85 18 40 11/20/19 03:00 85 18 124/56 (78) 96 11/20/19 02:00 82 18 94/66 (75) 96 11/20/19 01:04 80 18 40 11/20/19 01:00 83 18 126/55 (78) 97 11/20/19 00:00 83 11/20/19 00:00 98.5 81 18 111/51 (71) 96 11/20/19 00:00 Mechanical Ventilator Mechanical Ventilator 11/20/19 00:00 40 11/19/19 23:00 82 18 103/53 (70) 97 11/19/19 23:00 103/53 11/19/19 22:35 83 18 40 11/19/19 22:00 87 18 112/50 (70) 98 11/19/19 21:09 82 18 40 11/19/19 21:00 78 18 98/54 (69) 98 11/19/19 20:00 98.4 80 18 114/54 (74) 97 11/19/19 20:00 40 11/19/19 20:00 Mechanical Ventilator Mechanical Ventilator 11/19/19 20:00 71 11/19/19 19:10 93 23 40 11/19/19 19:00 94 19 107/66 (80) 97 11/19/19 18:30 92 19 130/63 (85) 95 11/19/19 18:00 90 18 113/54 (73) 97 11/19/19 17:20 91 18 40 11/19/19 17:00 120/53 11/19/19 17:00 88 18 120/53 (75) 93 11/19/19 16:30 88 18 106/74 (85) 97 11/19/19 16:00 98.5 89 18 116/66 (83) 96 11/19/19 16:00 40 11/19/19 16:00 91 11/19/19 16:00 108/52 11/19/19 16:00 Mechanical Ventilator Mechanical Ventilator 11/19/19 15:30 90 18 40 11/19/19 15:30 89 19 120/49 (72) 97 11/19/19 15:00 107/49 11/19/19 15:00 90 18 110/52 (71) 97 11/19/19 14:30 89 18 110/51 (70) 97 11/19/19 14:00 92 19 110/51 (70) 97 11/19/19 14:00 103/50 11/19/19 13:30 102 20 119/69 (86) 97 11/19/19 13:00 86 19 115/52 (73) 96 11/19/19 13:00 115/52 I&O Intake and Output 11/19/19 11/20/19 19:00 07:00 Intake Total 988.735 ml 940 ml Output Total 1040 ml 685 ml Balance -51.265 ml 255 ml IV Total 148.735 ml 100 ml Tube Feeding 840 ml 840 ml Output Urine Total 1040 ml 585 ml Stool Total 100 ml Dressing: saturated Wound: clean Cardiovascular: RSR Respiratory: clear, decreased breath sounds Abdomen: soft, non-tender, present bowel sounds Extremities: no tenderness, no cyanosis Laboratory Tests Test 11/20/19 03:50 White Blood Count 7.2 K/UL (4.8-10.8) Red Blood Count 3.34 M/UL (4.20-5.40) L Hemoglobin 11.5 G/DL (12.0-16.0) L Hematocrit 32.5 % (37.0-47.0) L Mean Corpuscular Volume 97 FL (80-99) Mean Corpuscular Hemoglobin 34.5 PG (27.0-31.0) H Mean Corpuscular Hemoglobin Concent 35.5 G/DL (32.0-36.0) Red Cell Distribution Width 13.1 % (11.6-14.8) Platelet Count 189 K/UL (150-450) Mean Platelet Volume 8.6 FL (6.5-10.1) Neutrophils (%) (Auto) 62.5 % (45.0-75.0) Lymphocytes (%) (Auto) 22.2 % (20.0-45.0) Monocytes (%) (Auto) 8.3 % (1.0-10.0) Eosinophils (%) (Auto) 5.7 % (0.0-3.0) H Basophils (%) (Auto) 1.3 % (0.0-2.0) Sodium Level 139 MMOL/L (136-145) Potassium Level 4.7 MMOL/L (3.5-5.1) Chloride Level 103 MMOL/L (98-107) Carbon Dioxide Level 30 MMOL/L (21-32) Anion Gap 6 mmol/L (5-15) Blood Urea Nitrogen 15 mg/dL (7-18) Creatinine 0.5 MG/DL (0.55-1.30) L Estimat Glomerular Filtration Rate > 60 mL/min (>60) Glucose Level 100 MG/DL (74-106) Calcium Level 9.2 MG/DL (8.5-10.1) Total Bilirubin 0.2 MG/DL (0.2-1.0) Aspartate Amino Transf (AST/SGOT) 25 U/L (15-37) Alanine Aminotransferase (ALT/SGPT) 15 U/L (12-78) Alkaline Phosphatase 192 U/L (46-116) H Total Protein 7.9 G/DL (6.4-8.2) Albumin 2.3 G/DL (3.4-5.0) L Globulin 5.6 g/dL Albumin/Globulin Ratio 0.4 (1.0-2.7) L Plan Problems: (1) Decubitus skin ulcer Assessment & Plan: Pt presented on admission with resolving pressure injury R side to posterior aspect of neck. Base of wound is moist with pink epithelial. Mild odor noted (L)1.5cm x (W)6cm. Partial thickness stage 2 pressure injury in close proximity R side neck. Base of wound is moist and viable(L)0.7cm x (W) 0.8cm. Small amt serosanguineous exudate noted. Moist pink epithelial L side to posterior aspect of neck(L)5cm x (W)16.5cm. Within base of wound is a full thickness stage 3 pressure injury L side neck under tracheal collar. Base of wound is moist ,wan with macerated borders.(L)0.9cm x (W)2cm x (D)0.6cmSmall amt serous exudate noted. Mild odor noted. Erosion noted at GT site . Scattered areas of hyperpigmentation noted to R and L buttocks and both ischial tuberosities. Non-blanching erythema without induration noted to Sacrum. L heel Is boggy with an area of non-blanching erythema with delineated margins. R heel is soft but blanchable. Tx.Plan: Apply Zinc Oxide Paste 20% to Epithelial areas around neck Twice Daily.Place Abd pads under tracheal collar . Cleanse Wound L side of neck with Saline. Apply TheraHoney. Apply Zinc Oxide Paste periwound. Cover with Optifoam drsg Daily and prn. Apply Moisture Barrier Paste to sacrum. Cover with Optifoam drsg. Change every 3 days and prn. Apply Cavilon Skin Barrier to both heels. Cover each heel with Optifoam drsg. Change every 7 days and prn. APM/LUIGI Mattress overlay. Reposition at least every 2 hours or as tolerated. Off- Load heels with pillow. (2) Recurrent seizures Assessment & Plan: As per neurology No injury identified Rx is written (3) Feeding by G-tube Assessment & Plan: DAILY ESTIMATED NEEDS: Needs based on Obese, critical care, wound healing 65.8kg abw 22-28 kcals/kg 0685-7977 total kcals 1.25-2 g protein/kg 82-131 g total protein 25-30 mL/kg 9980-3183 total fluid mLs NUTRITION DIAGNOSIS: 1) Swallowing difficulty R/T respiratory status as evidenced by pt trach-vent dep, GT dep 2) Increased kcal/prot needs R/T wound healing as evidenced by pt admitted w/ multiple wounds including full thickness pressure injury at L side neck under tracheal collar and partial thickness pressure injurty in close proximity to R side neck CURRENT TF:TF HELD: Jevity 1.2 @ 75ml/hr x 18 hrs ENTERAL NUTRITION RECOMMENDATIONS: Glucerna 1.2 @ 70ml/hr x 20 hrs (TF HELD FOR DILANTIN AND SYNTHROID) to provide 1200ml, 1440kcal, 67g prot, 968ml free water * FEED W/ HEMODYNAMIC STABLITY -> rec TF change to Glucerna 1.2 (h/o DM) -> Initiate Glucerna 1.2 @ 20ml/hr x 6 hrs -> advance 10ml q 4-6 hrs as tolerated to goal rate -> HOLD TF 1 HR BEFORE AND AFTER DILANTIN BID AND SYNTHROID QD (AM Dilantin and Synthroid given at the same time) -> Water flush per MD/ HOB over 30 degrees ADDITIONAL RECOMMENDATIONS: * Calibrated bed scale weights for accurate CBW (w/ added P200 mattress) * Wound healing: Continue Vit C/ add Contreras 1pkt BID via PEG * Monitor HD stability: on Dopamine * TF to run max 20 hrs w/ Dilantin BID + Synthroid QD (See above TF rec) * Monitor lytes daily w/ TF, replete as needed . (4) G-tube site cellulitis Assessment & Plan: as above (5) Abnormal LFTs Assessment & Plan: nondistended gallbladder with gallstones. Apparent gallbladder wall thickening, probably artifact of under distention but raises the possibility of acute cholecystitis. Consider nuclear medicine hepatobiliary scan if there is high clinical suspicion Negative for dilated bile ducts Echogenic foci in the left renal sinus, could represent nonobstructive calculi within the be artifactual given lack of evidence of such on prior CT scan Incidental findings left lower pole renal cyst, dystrophic right right lobe liver calcification Note incomplete visualization of portions of the abdominal aorta labs stable exam benign d/c okay Additional Comments cont above wound care plan for d/c nutritional optimization Heath Martell Nov 20, 2019 12:51
[2019-11-20] MEDS ORDERED: D5W 275ml ONE (14:22)
--- NOTE | 2019-11-20 15:28 | Diagnostic Imaging Report ---
Indication: Dyspnea Comparison: 11/15/2019 A single view chest radiograph was obtained. Findings: Interstitial edema demonstrated with prominent vascularity. Heart is normal size. Tracheostomy noted. Bones are osteopenic. IMPRESSION: Slightly worsening CHF
--- NOTE | 2019-11-20 15:39 | Diagnostic Imaging Report ---
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 The left upper extremity was prepped with alcohol. All elements of maximal sterile barrier technique were followed including usage of a cap, mask, sterile gown, sterile gloves, hand hygiene and a large sterile sheet. Sonographic evaluation of the upper extremity was performed demonstrating a patent and compressible basilic vein. Access was obtained under real-time ultrasound guidance (with utilization of sterile gel and sterile probe cover) and digital image was saved and archived. An .018 wire was introduced. Needle exchanged for a 5 Uzbek peel-away sheath. Measurements were obtained. A 5 Uzbek dual-lumen Power PICC line catheter was cut to 40 cm and introduced over the wire. Peel-away sheath and wire were removed.Catheter was secured to the skin using 2-0 Prolene suture. Both ports aspirate and flush easily. Post procedure chest x-ray demonstrates good position of the PICC line catheter within the SVC. Impression: Successful placement of an upper extremity PICC line catheter
[2019-11-20] MEDS ORDERED: Dyna-Hex 2% Top Sol 2oz TOPIC SCH (20:00)
--- NOTE | 2019-11-21 01:45 | Progress Note ---
DATE: 11/20/2019 CARDIOLOGY PROGRESS NOTE SUBJECTIVE: The patient's condition has improved. Blood pressure parameters overall labile. Remains on ventilator support. PHYSICAL EXAMINATION: VITAL SIGNS: Blood pressure 105/46, heart rate 71, respiratory rate 18, and afebrile. LUNGS: Bilateral breath sounds with no wheezing. CARDIAC: Regular rhythm and rate. Normal S1 and S2. No recurring pauses or heart block. ABDOMEN: Soft. EXTREMITIES: Trace edema. IMPRESSION: 1. Sepsis with shock, recovered. 2. UTI. 3. Ventilator-dependent respiratory failure. 4. Corrected Dilantin level with prior Dilantin toxicity. 5. Resolved bradyarrhythmia. 6. 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 There is no indication for permanent pacemaker at this time. PLAN: 1. Maintain adequate hydration as outpatient. 2. Avoid beta-blockers. 3. Avoid Dilantin toxicity. 4. Outpatient followup from [facility] facility. 5. Discharge medication regimen reviewed. Eder Tenorio M.D. DR: ROSETTE JOB#: [id number] CC:
--- NOTE | 2019-11-21 14:36 | Discharge Summary ---
Discharge Summary Discharge Summary _ DATE OF ADMISSION: 11/11/2019 DATE OF DISCHARGE: 11/20/2019 DISCHARGED BY: Dr. Hogan REASON FOR ADMISSION: 79 years old female with past medical history of chronic respiratory failure, ventilator dependent, tracheostomy status, hypertension, seizure disorder, presented after recurrent seizure. Patient apparently had 45-second generalized tonic clonic seizure activity. prison also reported fever at that time. No cough . No change in ventilator settings. Upon evaluation vital signs were stable. Laboratory work-up revealed no leukocytosis , stable hemoglobin, hematocrit and platelet count. ABG was stable on current ventilator settings. Stable electrolytes . BUN 19 creatinine 0.6. Lactic acid 1.1. Stable LFT. Urinalysis revealed findings consistent with urinary tract infection. Dilantin level 18.9 . Chest x-ray revealed suspected CHF. Patient subsequently admitted to stepdown unit for further management. CONSULTANTS: survey questionnaire designer cardiac dry cleaning supervisor Dr. Mcfadden ID specialist Dr. Corrales big data admin Dr. Tex rosado [facility] Dr. Martell [facility] COURSE: Patient admitted to direct observational unit. Ventilator support and tracheostomy care provided. Pulmonary toilet with bronchodilator provided as needed . Patient suctioned as needed . patient followed-up with chest x-ray. Seizure precautions maintained. Dilantin levels were monitored and optimized. No further seizure activity. Venous duplex bilateral lower extremity revealed no evidence of acute DVT. While in ICU , blood pressure began to drop. Patient was provided with volume resuscitation , however it was inadequate. Subsequently emergency room physician placed central line , and patient started on pressors /dopamine -titrated to keep mean arterial blood pressure above 65. Strategic Sourcing Consultant followed. Patient demonstrated second-degree AV block type I. Atropine was kept on the bedside. Dopamine was tapered. Cardiac dry cleaning supervisor consult was requested to evaluate the need for permanent pacemaker placement. Patient had Mobitz 1 second-degree AV block and intermittent AV dissociation. Patient probably had underlying baseline conduction disease , but hypotension was mainly due to sepsis than a primary conduction abnormality. Sap Technical Architect did not favor permanent pacemaker at this time , given her sepsis. Patient was not a good candidate overall for pacing due to significant comorbidities , including chronic respiratory failure, previous CVA ,baseline mental status ,and poor functional status overall. Sap Technical Architect recommended to add temporary pacing pads if temporary pacing will be required. She also recommended avoid all negative chronotropic and dromotropic agents. Patient started on empiric antibiotics. Influenza A and B swab was negative. Blood culture revealed Staphylococcus epidermidis and Staphylococcus warneri. Urine culture revealed E. coli ESBL. Sputum culture revealed Providencia, Proteus and Strep group G. Antibiotic regimen further optimized as per ID specialist recommendation. Stool for C. difficile was negative. Repeated blood culture were negative. Abdominal ultrasound revealed nondistended gallbladder with gallstones. No evidence of dilated bile ducts. Echogenic foci in the left renal sinus could represent nonobstructive calculus and could be artificial. Renal parameters and electrolytes were closely monitored, electrolytes corrected as needed , and nephrotoxic's were avoided. Hyperkalemia resolved. IV fluids discontinued . Prior to discharge all electrolytes stable. Patient received spot diuresis as per survey questionnaire designer with close monitoring of volumes and cardiorenal parameters. Pro BNP from 664 down to 165. PICC line was placed placed prior to discharge by interventional radiologist. Patient will need to complete antibiotic at the facility as per ID specialist recommendation. SNF medication continued Strict aspiration precautions were maintained. Tube feeding continued. Patient was able to tolerate tube feeding. Blood sugar was managed with sliding scale of insulin. Bowel regimen instituted. Wound care for decubitus ulcer present on admission provided as per surgeon recommendation. Continue wound care at the facility. Supportive care provided. Hemodynamic status was closely monitored. Patient was able to be weaned off pressors. As patient clinically improved, heart rate stabilized and remained stable. Patient clinically stabilized and was ready for transfer back to half-way facility for continuation of care. FINAL DIAGNOSES: Sepsis with shock -resolved Possible Staph coagulase negative bacteremia ESBL E. 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 DISCHARGE INSTRUCTIONS: Patient was discharged to the half-way facility. Follow up with medical doctor at the facility. I have been assigned to dictate discharge summary for this account. I was not involved in the patient's management. Libby Collins NP Nov 21, 2019 14:36
== END 2019-11-20 16:30 | DRG 870 ==
LOC: EDUNIT# 09:08 → EDBD 09:08 → EMR 09:22 → EDBEDREQ 11:11 → 2W 11:49 → ICU 21:55
PROC: 5A1955Z Respiratory Ventilation, Greater than 96 Consecutive Hours (ICD-10-PCS; principal; 2019-11-11)
PROC: 06HM33Z Insertion of Infusion Device into Right Femoral Vein, Percutaneous Approach (ICD-10-PCS; 2019-11-12)
PROC: B548ZZA Ultrasonography of Superior Vena Cava, Guidance (ICD-10-PCS; 2019-11-20)
PROC: 02HV33Z Insertion of Infusion Device into Superior Vena Cava, Percutaneous Approach (ICD-10-PCS; 2019-11-20)
DX: A41.9 Sepsis, unspecified organism (principal); R65.21 Severe sepsis with septic shock; R53.2 Functional quadriplegia; J13 Pneumonia due to Streptococcus pneumoniae; N39.0 Urinary tract infection, site not specified; J96.10 Chronic respiratory failure, unspecified whether with hypoxia or hypercapnia; K94.22 Gastrostomy infection; G93.1 Anoxic brain damage, not elsewhere classified; L03.311 Cellulitis of abdominal wall; E46 Unspecified protein-calorie malnutrition; J44.0 Chronic obstructive pulmonary disease with (acute) lower respiratory infection; Z99.11 Dependence on respirator [ventilator] status; G40.909 Epilepsy, unspecified, not intractable, without status epilepticus; L89.892 Pressure ulcer of other site, stage 2; I11.0 Hypertensive heart disease with heart failure; I50.9 Heart failure, unspecified; Z93.0 Tracheostomy status; D64.9 Anemia, unspecified; Z68.36 Body mass index [BMI] 36.0-36.9, adult; I25.10 Atherosclerotic heart disease of native coronary artery without angina pectoris; E11.9 Type 2 diabetes mellitus without complications; F03.90 Unspecified dementia, unspecified severity, without behavioral disturbance, psychotic disturbance, mood disturbance, and anxiety; I44.1 Atrioventricular block, second degree; E87.6 Hypokalemia; R13.10 Dysphagia, unspecified; T42.0X5A Adverse effect of hydantoin derivatives, initial encounter; Y92.230 Patient room in hospital as the place of occurrence of the external cause; I49.8 Other specified cardiac arrhythmias
CPT/HCPCS: 36415; 36569; 36600; 71045; 76700; 76937; 80048; 80053; 80150; 80185; 80202; 81003; 82150; 82248; 82570; 82803; 82962; 83605; 83690; 83735; 83880; 84100; 84133; 84443; 84484; 85007; 85025; 85610; 85651; 85730; 86140; 86710; 87040; 87070; 87081; 87086; 87181; 87205; 87324; 93005; 93970; 94002; 94003; 96365; 99285; C9399; J1815; J2405; J7030; J8499

== ENCOUNTER 2020-08-10 16:48 | Inpatient (IN) | payer MEDICARE, MEDICAID ==
[~2020-08-10] VITALS: Ht 182.9 cm; Wt 90.7 kg
[~2020-08-10 16:48] MED LIST changes: +MILK OF MA400 MG/51 ORAL; +SYNTHROID150 MCG GT
[2020-08-10] MEDS ORDERED: NOVOLOG100 UNITS1 SUBQ (16:54)
[2020-08-10] MEDS ORDERED: FERROUS SULFAT500 G1 MC (16:54)
[2020-08-10] MEDS ORDERED: PROMOD946 ML GT (16:54)
[2020-08-10] MEDS ORDERED: LORazepam Inj 2mg/ml 1ml ONE (16:57)
[2020-08-10 17:00] VITALS: BP 155/60
[2020-08-10] MEDS ORDERED: LORazepam Inj 2mg/ml 1ml IV ONE (17:00)
--- NOTE | 2020-08-10 17:00 | NUR ---
ED Nurse Note: brought in by ambu;eusebio. bagging in process, 10L ambu bag. Placed on vent with RT SPO2 100%. Pt had two siezures at her faclity lasting about 30 seconds each. Pt is non verbal , trached and intermittently folows commands. this is her baseline per ems. Line places and labs sent. Urine sent. Vitals stable as documented.
--- NOTE | 2020-08-10 17:04 | NUR ---
ED Nurse Note: COVID swab, MRSA/VRE/CRE obtained and sent
--- NOTE | 2020-08-10 17:17 | NUR ---
ED Nurse Note: Pt has witnessed 30 second siezure in ER by RNs. MD placed ativan 2mg order. Pt is postictal. Pt is on Vent ac 18 TV 550 60% +5 SPO2 100%. She is sinus connie, lowest 47 bpm, ER MD aware. Close monitoring done.
[2020-08-10] MEDS ORDERED: Atropine Sulfate 0.4mg/ml inj ONE (17:25)
--- NOTE | 2020-08-10 17:26 | NUR ---
ED Nurse Note: Atropine order placed per verbal order by KRISTIE
[2020-08-10] MEDS ORDERED: Atropine Inj 1mg/10ml Syr IVP ONE (17:30)
[2020-08-10] MEDS ORDERED: Atropine Sulfate 0.4mg/ml inj IVP ONE (17:30)
[2020-08-10 17:31] LABS: APPEARANCE,URINE CLEAR; BASOPHILS % (AUTO) 1.2 % (0.0-2.0); BILIRUBIN, URINE NEGATIVE (NEGATIVE); COLOR,URINE PALE YELLOW; EOSINOPHILS % (AUTO) 0.9 % (0.0-3.0); GLUCOSE, URINE (UA) NEGATIVE (NEGATIVE); HEMATOCRIT 36.2 % (37.0-47.0); KETONES,URINE NEGATIVE (NEGATIVE); LEUKOCYTE ESTERASE ,URINE NEGATIVE (NEGATIVE); LYMPHOCYTES % (AUTO) 19.1 % (20.0-45.0); MEAN CORPUSCULAR VOLUME 98 FL (80-99); MONOCYTES % (AUTO) 10.1 % (1.0-10.0); NEUTROPHILS % (AUTO) 68.6 % (45.0-75.0); NITRITE,URINE NEGATIVE (NEGATIVE); PH,URINE 6.5 (4.5-8.0); PLATELET COUNT 152 K/UL (150-450); PROTEIN,URINE 1+ (NEGATIVE); RED BLOOD COUNT 3.71 M/UL (4.20-5.40); RED CELL DISTRIBUTION WIDTH 16.7 % (11.6-14.8); UROBILINOGEN,URINE NORMAL MG/DL (0.0-1.0); WHITE BLOOD COUNT 7.3 K/UL (4.8-10.8)
[2020-08-10 17:33] VITALS: BP 92/41
[2020-08-10 17:35] LABS: ANION GAP 7 mmol/L (5-15); BLOOD UREA NITROGEN 22 mg/dL (7-18); CALCIUM 8.9 MG/DL (8.5-10.1); CARBON DIOXIDE 26 MMOL/L (21-32); CHLORIDE 100 MMOL/L (98-107); CREATININE 0.6 MG/DL (0.55-1.30); POTASSIUM 4.1 MMOL/L (3.5-5.1); SODIUM 133 MMOL/L (136-145)
[2020-08-10 17:39] LABS: ALANINE AMINOTRANSFERASE 28 U/L (12-78); ALBUMIN 3.1 G/DL (3.4-5.0); ALBUMIN/GLOBULIN RATIO 0.6 (1.0-2.7); ALKALINE PHOSPHATASE 272 U/L (46-116); ASPARTATE AMINO TRANSFERASE 36 U/L (15-37); BILIRUBIN,TOTAL 0.2 MG/DL (0.2-1.0)
--- NOTE | 2020-08-10 18:21 | NUR ---
ED Nurse Note: Pt is connie 35-50 bpm. MD is aware. BP is 102/80. no new orders.
--- NOTE | 2020-08-10 18:26 | Emergency Room Report ---
History of Present Illness General Chief Complaint: Seizure Source: Patient Present Illness HPI 80-year-old female presents status post seizure. [facility] Witnessed seizure at facility. Had another seizure on arrival. Nonverbal at baseline. Trach/vent. History of seizures and takes Dilantin. Unable to find any additional history at this time. No reported fevers or chills. No other aggravating relieving factors. No other associated symptoms Allergies: Coded Allergies: PEANUT (Verified Allergy, Unknown, 09/22/16) Uncoded Allergies: PEANUTS (Allergy, Unknown, 02/04/19) COVID-19 Screening Contact w/high risk pt: No Experienced COVID-19 symptoms?: No COVID-19 Testing performed CARDIOPULMONARY TECHNOLOGIST: No Patient History Past Medical History: none, asthma, COPD, CVA/TIA Past Surgical History: other - trach Pertinent Family History: none Social History: Denies: smoking, alcohol use, drug use Now: No Immunizations: UTD Reviewed Nursing Documentation: PMH: Agreed; PSxH: Agreed Nursing Documentation-PMH Past Medical History: No History, Except For Hx Cardiac Problems: Yes - HF, SEPSIS, QUADRIPLEGIA, STEMI Hx Hypertension: Yes Hx Pacemaker: No Hx Asthma: No Hx COPD: Yes Hx Diabetes: Yes Hx Cancer: Yes Hx Gastrointestinal Problems: Yes - DIVERTICULOSIS Hx Neurological Problems: Yes Hx Cerebrovascular Accident: Yes - Encephalpathy Hx Transient Ischemic Attacks: No Hx Dementia: No Hx Alzheimer's Disease: No Hx Parkinson's Disease: No Hx Meningitis: No Hx Seizures: Yes Hx Epilepsy: Yes Hx Multiple Sclerosis: No Hx Cerebral Palsy: No Hx Amyotrophic Lat Sclerosis: No Hx [place] Syndrome: No Hx Paralysis: Yes - CVA Hx Peripheral Neuropathy: No Hx Spinal Cord Injury: No Hx Head Trauma: No Hx Traumatic Brain Injury: No Hx Memory Loss: Yes Hx Concentration Difficulty: Yes Hx Speech Problem: Yes Hx Tremors: No Hx Vertigo: No Hx Dizziness: No Hx Syncope: No Hx Headaches: No Hx Aphasia: No Hx Dysphasia: No Hx Weakness: Yes Hx Fatigue: No Hx Neurologic Surgery: No Hx Brain Shunt: No Review of Systems All Other Systems: limited Physical Exam Vital Signs Date Time Temp Pulse Resp B/P (MAP) Pulse Ox O2 Delivery O2 Flow Rate FiO2 08/10/20 16:41 76 20 158/88 (111) 100 Mechanical Ventilator 08/10/20 17:00 98.7 10.0 08/10/20 17:06 60 Sp02 EP Interpretation: reviewed, normal General Appearance: other - nonverbal Head: normocephalic Eyes: bilateral eye normal inspection, bilateral eye PERRL ENT: hearing grossly normal, normal pharynx, no angioedema, normal voice Neck: tracheotomy Respiratory: chest non-tender, lungs clear, normal breath sounds, speaking full sentences Cardiovascular #1: regular rate, rhythm, no edema Gastrointestinal: normal bowel sounds, non tender, soft, non-distended, no guar ding, no rebound Rectal: deferred Genitourinary: no CVA tenderness Musculoskeletal: normal inspection Neurologic: other - nonverbal Psychiatric: other - nonverbal Skin: other - see nursing notes Lymphatic: normal inspection Procedures Critical Care Time Critical Care Time i. I feel this is a highly complex case requiring extensive working including EKG/Rhythm strip, Xray/CT/US, Blood/urine lab work, repeat exams while in ED, and administration of strong opiates/narcotics for pain control, admission to hospital or close patient follow up. Total time: 60 min bedside evaluation and treatment excludes procedures (EKG). Reason for critical care: Bradycardia, hypotension, seizure Possible complications: hypotension, hypertension, OH, shock, arrhythmias, metabolic acidosis, end organ damage, respiratory failure. Interventions: Labs, IV fluids, EKG, Ativan, atropine, cardiac monitoring Course: Presenting status post seizure. Trach/vent. Given Ativan here. Became bradycardic. Hypotensive. Given atropine. Given IV fluid boluses. BP improved. Heart rate remained steady. consultations: nursing staff, EMS, family Performed by: Dr Mckenzie Tolerated well condition = critical j. because of unstable vital signs this patient had a condition that could potentially threaten life or limb. I feel this is a critical patient who required my full attention while patient was considered critical. Total Critical Care Time excluding procedures was greater than 60 minutes Medical Decision Making Diagnostic Impression: Primary Impression: Acute and chronic respiratory failure Additional Impressions: Seizure disorder Elevated Dilantin level Bradycardia ER Course Hospital Course 80-year-old F presents to ED status post seizure. Differential diagnosis includes- breakthrough seizure, alcohol abuse, noncompliance with medication Clinical course Patient placed on stretcher. Initial history and physical I ordered labs, IV fluids, EKG, ativan Labs-electrolytes okay, leukocytosis noted, hemoglobin/hematocrit stable. dilantin level elevated EKG - NSR no acute ischemic changes interpreted by me Patient became bradycardic after. Somewhat hypotensive. Given atropine. Given IV fluid boluses with BP improved. Heart rate fluctuates between the 40s to 60s. Case discussed with Dr. Hogan and he agreed to accept the patient to his service for further care and support. i. I feel this is a highly complex case requiring extensive working including EKG/Rhythm strip, Xray/CT/US, Blood/urine lab work, repeat exams while in ED, and administration of strong opiates/narcotics for pain control, admission to hospital or close patient follow up. Diagnosis - seizure, acute and chronic respiratory failure, elevated Dilantin level, bradycardia admitted to SDU in critical condition Laboratory Tests Test 08/10/20 16:54 White Blood Count 7.3 K/UL (4.8-10.8) Red Blood Count 3.71 M/UL (4.20-5.40) L Hemoglobin 12.0 G/DL (12.0-16.0) Hematocrit 36.2 % (37.0-47.0) L Mean Corpuscular Volume 98 FL (80-99) Mean Corpuscular Hemoglobin 32.4 PG (27.0-31.0) H Mean Corpuscular Hemoglobin Concent 33.2 G/DL (32.0-36.0) Red Cell Distribution Width 16.7 % (11.6-14.8) H Platelet Count 152 K/UL (150-450) Mean Platelet Volume 10.7 FL (6.5-10.1) H Neutrophils (%) (Auto) 68.6 % (45.0-75.0) Lymphocytes (%) (Auto) 19.1 % (20.0-45.0) L Monocytes (%) (Auto) 10.1 % (1.0-10.0) H Eosinophils (%) (Auto) 0.9 % (0.0-3.0) Basophils (%) (Auto) 1.2 % (0.0-2.0) Urine Color Pale yellow Urine Appearance Clear Urine pH 6.5 (4.5-8.0) Urine Specific [place] 1.015 (1.005-1.035) Urine Protein 1+ (NEGATIVE) H Urine Glucose (UA) Negative (NEGATIVE) Urine Ketones Negative (NEGATIVE) Urine Blood Negative (NEGATIVE) Urine Nitrite Negative (NEGATIVE) Urine Bilirubin Negative (NEGATIVE) Urine Urobilinogen Normal MG/DL (0.0-1.0) Urine Leukocyte Esterase Negative (NEGATIVE) Urine RBC 0 /HPF (0 - 2) Urine WBC 0-2 /HPF (0 - 2) Urine Squamous Epithelial Cells Few /LPF (NONE/OCC) Urine Amorphous Sediment Few /LPF (NONE) H Urine Bacteria Few /HPF (NONE) Sodium Level 133 MMOL/L (136-145) L Potassium Level 4.1 MMOL/L (3.5-5.1) Chloride Level 100 MMOL/L (98-107) Carbon Dioxide Level 26 MMOL/L (21-32) Anion Gap 7 mmol/L (5-15) Blood Urea Nitrogen 22 mg/dL (7-18) H Creatinine 0.6 MG/DL (0.55-1.30) Estimat Glomerular Filtration Rate > 60 mL/min (>60) Glucose Level 108 MG/DL (74-106) H Lactic Acid Level 1.20 mmol/L (0.4-2.0) Calcium Level 8.9 MG/DL (8.5-10.1) Total Bilirubin 0.2 MG/DL (0.2-1.0) Aspartate Amino Transf (AST/SGOT) 36 U/L (15-37) Alanine Aminotransferase (ALT/SGPT) 28 U/L (12-78) Alkaline Phosphatase 272 U/L (46-116) H Troponin I 0.015 ng/mL (0.000-0.056) Total Protein 8.5 G/DL (6.4-8.2) H Albumin 3.1 G/DL (3.4-5.0) L Globulin 5.4 g/dL Albumin/Globulin Ratio 0.6 (1.0-2.7) L Salicylates Level 1.1 ug/mL (2.8-20) L Acetaminophen Level < 2 MCG/ML (10-30) L Phenytoin (Dilantin) Level 21.0 ug/mL (10-20) H EKG Diagnostic Results Rate: normal Rhythm: NSR ST Segments: no acute changes ASA given to the pt in ED: No Rhythm Strip Diag. Results EP Interpretation: yes Rhythm: NSR, no PVC's, no ectopy Last Vital Signs Date Time Temp Pulse Resp B/P (MAP) Pulse Ox O2 Delivery O2 Flow Rate FiO2 08/10/20 17:39 42 18 92/41 100 08/10/20 17:33 Mechanical Ventilator 08/10/20 17:06 60 08/10/20 17:00 98.7 10.0 Status: improved Disposition: ADMITTED INPATIENT Condition: Critical Referrals: Juaquin Ramos DO (PCP) Mina Mckenzie MD Aug 10, 2020 18:26
[2020-08-10 18:40] VITALS: BP 105/44
[2020-08-10] MEDS ORDERED: Miralax 17gm pkt ORAL PRN (19:00)
--- NOTE | 2020-08-10 19:09 | NUR ---
HAND-OFF: Report given to Dhaval Razo.
[2020-08-10 19:30] VITALS: BP 109/54
--- NOTE | 2020-08-10 19:30 | NUR ---
ED Nurse Note: received patient from britney farrell. patient resting in bed with no acute distress. patient and vitals stable to baseline. will continue to monitor.
[2020-08-10] MEDS ORDERED: NovoLOG Insulin Flexpen SUBQ SCH (21:00)
[2020-08-10] MEDS ORDERED: Heparin 5000 units/ml inj SUBQ SCH (21:00)
[2020-08-10 21:45] VITALS: BP 111/61
--- NOTE | 2020-08-10 22:15 | NUR ---
TRANSFER TO FLOOR: Patient transferred to sdu 238-2 as ordered, per magy ross. Report given to dante farrell. patient stable for transport. transferred to er via gurney with sloane and rn. belongings and admission packet sent with patient.
--- NOTE | 2020-08-10 23:00 | NUR ---
NURSE NOTES: Report received from CESAR Moseley. Pt PRASANNA mishra direct to room 238-2 from ED with dx of seizures. Pt 5-lead EKG shows SB at 40 BPM. BP133/69, afebrile. Observed on vent saturating 100% on settings of AC 18, 550, 50% fiO2. Right forearm patent and intact. Made aware of alterations in skin integrity. Pictures uploaded. Will call MD for admission orders. Bed kept in lowest and locked position. Bed alarm on. Will continue monitoring.
[2020-08-10] MEDS ORDERED: Acetaminophen 650mg/20.3ml GT PRN (23:15)
[2020-08-11] VITALS: BP 133/69
[2020-08-11] MEDS ORDERED: D5NS 1,000 ML IV SCH (00:30)
--- NOTE | 2020-08-11 01:00 | NUR ---
NURSE NOTES: New orders from Dr. Hogan Read back and initiated. MD is aware of bradycardia and four episodes of seizure activity during admission. Seizure precautions initiated and safety measures implemented. MD also aware of G-tube site. Dr. Monte ordered for physician consult. Will continue monitoring.
[2020-08-11] MEDS ORDERED: levETIRAcetam 500mg/NS100ml IVPB SCH ×2 (02:00→09:00)
--- NOTE | 2020-08-11 03:30 | NUR ---
NURSE NOTES: Able to properly open purple kangaroo enfit port with help of staff members and began feeding as tolerated. 0 residual noted.
[2020-08-11 04:00] VITALS: BP 149/65
--- NOTE | 2020-08-11 05:00 | NUR ---
NURSE NOTES: Symptoms of seizures resolved after administration of Keppra IVPB. Close monitoring in progress - currently in stable condition.
[2020-08-11] MEDS: NovoLOG Insulin Flexpen SUBQ SCH ×4 (05:07→23:52)
[2020-08-11 05:08] LABS: BASOPHILS % (AUTO) 0.9 % (0.0-2.0); EOSINOPHILS % (AUTO) 0.7 % (0.0-3.0); HEMATOCRIT 33.3 % (37.0-47.0); HEMOGLOBIN 11.5 G/DL (12.0-16.0); LYMPHOCYTES % (AUTO) 13.6 % (20.0-45.0); MEAN CORPUSCULAR VOLUME 95 FL (80-99); MONOCYTES % (AUTO) 8.3 % (1.0-10.0); NEUTROPHILS % (AUTO) 76.5 % (45.0-75.0); PLATELET COUNT 154 K/UL (150-450); RED BLOOD COUNT 3.51 M/UL (4.20-5.40); RED CELL DISTRIBUTION WIDTH 16.7 % (11.6-14.8); WHITE BLOOD COUNT 8.1 K/UL (4.8-10.8)
[2020-08-11 05:23] LABS: ALANINE AMINOTRANSFERASE 28 U/L (12-78); ALBUMIN 2.7 G/DL (3.4-5.0); ALBUMIN/GLOBULIN RATIO 0.5 (1.0-2.7); ALKALINE PHOSPHATASE 232 U/L (46-116); ANION GAP 9 mmol/L (5-15); ASPARTATE AMINO TRANSFERASE 30 U/L (15-37); BILIRUBIN,TOTAL 0.2 MG/DL (0.2-1.0); BLOOD UREA NITROGEN 17 mg/dL (7-18); CALCIUM 8.2 MG/DL (8.5-10.1); CARBON DIOXIDE 23 MMOL/L (21-32); CHLORIDE 105 MMOL/L (98-107); CREATININE 0.5 MG/DL (0.55-1.30); POTASSIUM 3.5 MMOL/L (3.5-5.1); SODIUM 137 MMOL/L (136-145)
[2020-08-11] MEDS ORDERED: NovoLOG Insulin Flexpen SUBQ SCH (06:30)
--- NOTE | 2020-08-11 07:30 | NUR ---
NURSE NOTES: Received report from CESAR Berry. The patient is resting on the bed without acute distress or shortness fo breath. The patient is obtunded, opening eyes spontaneously, eyes are tracking but not following the command. Communication made by facial expression and body movement. SB w/ HR of 40s on the pre press proofer. Per CESAR Berry, the patient sustained SB w/ HR of 30-40s for past [address] Hogan was notified. Per Dr. Hogan, he will come and assess the patient. The patient is trach'ed on ventilator on following setting and oxygen saturation is 100%: Shiley 8 XLT, AC 18 TV 550 FiO2 50% and PEEP 5. The patient's GT intact and patent and running Glucerna 1.2 @ 70mL/hr for limited 18 hours. The patient is incontinent x2 and using purewig for urinary incontinence. Skin issue noted and dressing intact. The patient has R FA 20G that is intact and patent. New IV inserted on L wrist 22G that is intact and patent. Per CESAR Berry, episode of 4 seizures at the floor and Keppra and Dilantin were administered. The patient's bed in the lowest position, call light in reach, and fall, aspiration, and seizure precaution reinforced. IV site intact and patent. Will follow up the lab and order. Will closely monitor the patient. Will continue plan of care.
--- NOTE | 2020-08-11 07:35 | NUR ---
NURSE HAND-OFF: Important Events on Shift: Bradycardia, Seizure activity x4 Patient Status: Stable Diet: Glucerna 1.2 Pending Orders: Pending Results/Labs: Pending MD notification: Latest Vital Signs: Temperature 97.7 , Pulse 51 , B/P 149 /65 , Respiratory Rate 18 , O2 SAT 98 , Mechanical Ventilator, O2 Flow Rate 10.0 . Vital Sign Comment: Latest Davis Fall Score: 50 Fall Risk: Safety Measures: Call light Within Reach, Bed Alarm Zone 1, Side Rails Side Rails x3, Bed position Low and Locked. Fall Precautions: Yellow Socks Yellow Gown Door Sign Patient Fall Education Report given to CESAR Mattson.
[2020-08-11 08:00] VITALS: BP 113/74
--- NOTE | 2020-08-11 08:00 | NUR ---
NURSE NOTES: Morning nursing assessment done. Morning vital signs taken. SB on the monitor. Awaiting for response from Dr. Hogan regarding. Will closely monitor the patient. Will continue plan of care.
[2020-08-11] MEDS: PHENYTOIN IVPB SCH ×2 (09:00→09:26)
[2020-08-11] MEDS: NS IVPB SCH ×2 (09:00→09:26)
[2020-08-11] MEDS ORDERED: Phenytoin Susp 100mg/4ml GT SCH (09:00)
--- NOTE | 2020-08-11 09:00 | NUR ---
NURSE NOTES: Notified Dr. Hogan's PA regarding following conditions: episode of 4 times of seizure on the floor, sustained SB w/ HR of 40s, SBP 90s. No new order at this time. Will closely monitor the patient. Will continue plan of care.
[2020-08-11] MEDS: Docusate 100mg/10ml Liq GT SCH (09:25)
--- NOTE | 2020-08-11 10:00 | NUR ---
NURSE NOTES: Medications administered per order. The patient tolerated well. Phenytoin on hold until clarification made with Dr. Hogan due to elevated phenytoin level, SB, and hypotension. Will follow up with Dr. Hogan. Will closely monitor the patient. Will continue plan of care.
--- NOTE | 2020-08-11 10:30 | NUR ---
NURSE NOTES: Dr. Hogan ordered to discontinue Phenytoin. Informed Dr. Hogan that Phenytoin was on hold until clarification with Dr. Hogan. Per Dr. Hogan, okay not to administer from the morning dose. Will not administer as ordered. Will continue plan of care.
--- NOTE | 2020-08-11 10:37 | NUR ---
RD ASSESSMENT & RECOMMENDATIONS SEE CARE ACTIVITY FOR COMPLETE ASSESSMENT DAILY ESTIMATED NEEDS: Needs based on Obese, critical care, wound 63.3kg abw 22-28 kcals/kg 8832-3465 total kcals 1.25-2 g protein/kg 79-127 g total protein 4941-0787 mL/kg 6077-1082 total fluid mLs NUTRITION DIAGNOSIS: Swallowing difficulty R/T respiratory status as evidenced by pt trach-vent dep, GT dep. CURRENT TF:Glucerna 1.2 @ 70ml/hr x 18 hrs ENTERAL NUTRITION RECOMMENDATIONS: Glucerna 1.2 @ 70ml/hr x 20 hrs to provide 1400ml, 1680kcal, 84g prot, 1127ml free water - Increase run time to 20 hrs to better meet est pro needs - Flush per MD. HOB over 30 degrees - Monitor dilantin for change from IV to GT. ADDITIONAL RECOMMENDATIONS: * Calibrated bed scale weights for accurate CBW * Wound healing: f/up w/ eval; add PHOEBE BID via GT * Monitor lytes daily w/ TF, replete as needed * Check HgA1C, need for carb control formula
--- NOTE | 2020-08-11 11:00 | NUR ---
NURSE NOTES: Dr. Dudley at the bedside assessed patient. Notified the patient's condition. Per Dr. Dudley, discontinue Phenytoin as Dr. Hogan's order, Keppra 750mg IVPB BID, and EEG to be done on 08/12/20. Will carry out the order as soon as possible. Will closely monitor the patient. Will continue plan of care.
[2020-08-11] MEDS: D5NS 1,000 ML IV SCH (11:22)
--- NOTE | 2020-08-11 11:59 | Consultation ---
History of Present Illness General Chief Complaint: Seizure Referring physician: DR. Hogan Present Illness HPI 80 yo F [facility] resident admitted through the ER after acute seizure witnessed at SNF and again in ER. Pt is s/p trach, vent dependent, aphasic. Hx taken from EMR, which is limited. No documented hx of CAD or SC. Echo done 03/16/18 shows chronic diastolic HF with EF 60%. Allergies: Coded Allergies: PEANUT (Verified Allergy, Unknown, 09/22/16) Medication History Scheduled Acetaminophen (Acetaminophen), 640 MG GT MORNING, (Reported) Cranberry Extract (Cranberry), 425 MG GT BID, (Reported) Docusate Sodium* (Docusate Sodium*), 100 MG GT DAILY, (Reported) Insulin Aspart (Novolog Flexpen), 0 SUBQ AC+HS, (Reported) Levothyroxine Sodium* (Synthroid*), 150 MCG GT DAILY, (Reported) Magnesium Hydroxide* (Milk Of Magnesia*), 30 ML ORAL QHS, (Reported) Meropenem (Meropenem), 1 GM IV TID Multivitamin With Minerals (Multivitamins With Minerals*), 15 ML GT DAILY, (Reported) Phenytoin (Phenytoin*), 16 ML GT BID, (Reported) Protein Supplement (Promod), 30 ML GT BID, (Reported) Vit C/Ascorbate Ca/Ascorb Sod (Vitamin C 500 Mg/15 Ml Liquid), 500 MG GT DAILY, (Reported) Miscellaneous Medications Ferrous Sulfate, Dried (Ferrous Sulfate), Unknown Dose MC, (Reported) Protein Supplement (Promod), 30 ML PO, (Reported) Patient History Healthcare decision maker Resuscitation status Advanced Directive on File Physical Exam Last 24 Hour Vital Signs Date Time Temp Pulse Resp B/P (MAP) Pulse Ox O2 Delivery O2 Flow Rate FiO2 08/11/20 11:11 64 18 50 08/11/20 07:26 51 18 50 08/11/20 04:00 97.7 48 18 149/65 (93) 98 08/11/20 04:00 Mechanical Ventilator 08/11/20 04:00 50 08/11/20 03:30 45 08/11/20 03:30 47 18 50 08/11/20 00:00 50 08/11/20 00:00 Mechanical Ventilator 08/11/20 00:00 Mechanical Ventilator 08/11/20 00:00 97.9 46 18 133/69 (90) 98 08/10/20 23:30 35 08/10/20 22:59 48 18 50 08/10/20 22:15 98.7 51 17 111/61 99 Mechanical Ventilator 60 08/10/20 21:53 Mechanical Ventilator 10.0 08/10/20 21:45 98.7 51 17 111/61 99 Mechanical Ventilator 60 08/10/20 21:30 45 18 50 08/10/20 19:30 98.7 46 21 109/54 99 Mechanical Ventilator 60 08/10/20 18:40 42 22 105/44 100 Mechanical Ventilator 40 08/10/20 17:39 42 18 92/41 100 08/10/20 17:33 42 18 92/41 100 Mechanical Ventilator 08/10/20 17:09 54 22 155/60 100 08/10/20 17:06 83 19 60 08/10/20 17:00 98.7 54 22 155/60 100 Ambu-Bag 10.0 08/10/20 17:00 54 22 Mechanical Ventilator 08/10/20 16:41 76 20 158/88 (111) 100 Mechanical Ventilator Intake and Output 08/10/20 08/11/20 19:00 07:00 Intake Total 1000 ml 330 ml Balance 1000 ml 330 ml Intake Free Water 80 ml IV Total 1000 ml 100 ml Tube Feeding 150 ml # Voids 1 1 # Bowel Movements 3 Laboratory Tests Test 08/10/20 16:54 08/10/20 18:45 08/11/20 01:35 08/11/20 03:15 White Blood Count 7.3 K/UL (4.8-10.8) 8.1 K/UL (4.8-10.8) Red Blood Count 3.71 M/UL (4.20-5.40) L 3.51 M/UL (4.20-5.40) L Hemoglobin 12.0 G/DL (12.0-16.0) 11.5 G/DL (12.0-16.0) L Hematocrit 36.2 % (37.0-47.0) L 33.3 % (37.0-47.0) L Mean Corpuscular Volume 98 FL (80-99) 95 FL (80-99) Mean Corpuscular Hemoglobin 32.4 PG (27.0-31.0) H 32.6 PG (27.0-31.0) H Mean Corpuscular Hemoglobin Concent 33.2 G/DL (32.0-36.0) 34.4 G/DL (32.0-36.0) Red Cell Distribution Width 16.7 % (11.6-14.8) H 16.7 % (11.6-14.8) H Platelet Count 152 K/UL (150-450) 154 K/UL (150-450) Mean Platelet Volume 10.7 FL (6.5-10.1) H 10.3 FL (6.5-10.1) H Neutrophils (%) (Auto) 68.6 % (45.0-75.0) 76.5 % (45.0-75.0) H Lymphocytes (%) (Auto) 19.1 % (20.0-45.0) L 13.6 % (20.0-45.0) L Monocytes (%) (Auto) 10.1 % (1.0-10.0) H 8.3 % (1.0-10.0) Eosinophils (%) (Auto) 0.9 % (0.0-3.0) 0.7 % (0.0-3.0) Basophils (%) (Auto) 1.2 % (0.0-2.0) 0.9 % (0.0-2.0) Urine Color Pale yellow Urine Appearance Clear Urine pH 6.5 (4.5-8.0) Urine Specific [place] 1.015 (1.005-1.035) Urine Protein 1+ (NEGATIVE) H Urine Glucose (UA) Negative (NEGATIVE) Urine Ketones Negative (NEGATIVE) Urine Blood Negative (NEGATIVE) Urine Nitrite Negative (NEGATIVE) Urine Bilirubin Negative (NEGATIVE) Urine Urobilinogen Normal MG/DL (0.0-1.0) Urine Leukocyte Esterase Negative (NEGATIVE) Urine RBC 0 /HPF (0 - 2) Urine WBC 0-2 /HPF (0 - 2) Urine Squamous Epithelial Cells Few /LPF (NONE/OCC) Urine Amorphous Sediment Few /LPF (NONE) H Urine Bacteria Few /HPF (NONE) Sodium Level 133 MMOL/L (136-145) L 137 MMOL/L (136-145) Potassium Level 4.1 MMOL/L (3.5-5.1) 3.5 MMOL/L (3.5-5.1) Chloride Level 100 MMOL/L (98-107) 105 MMOL/L (98-107) Carbon Dioxide Level 26 MMOL/L (21-32) 23 MMOL/L (21-32) Anion Gap 7 mmol/L (5-15) 9 mmol/L (5-15) Blood Urea Nitrogen 22 mg/dL (7-18) H 17 mg/dL (7-18) Creatinine 0.6 MG/DL (0.55-1.30) 0.5 MG/DL (0.55-1.30) L Estimat Glomerular Filtration Rate > 60 mL/min (>60) > 60 mL/min (>60) Glucose Level 108 MG/DL (74-106) H 104 MG/DL (74-106) Lactic Acid Level 1.20 mmol/L (0.4-2.0) Calcium Level 8.9 MG/DL (8.5-10.1) 8.2 MG/DL (8.5-10.1) L Total Bilirubin 0.2 MG/DL (0.2-1.0) 0.2 MG/DL (0.2-1.0) Aspartate Amino Transf (AST/SGOT) 36 U/L (15-37) 30 U/L (15-37) Alanine Aminotransferase (ALT/SGPT) 28 U/L (12-78) 28 U/L (12-78) Alkaline Phosphatase 272 U/L (46-116) H 232 U/L (46-116) H Troponin I 0.015 ng/mL (0.000-0.056) Total Protein 8.5 G/DL (6.4-8.2) H 7.7 G/DL (6.4-8.2) Albumin 3.1 G/DL (3.4-5.0) L 2.7 G/DL (3.4-5.0) L Globulin 5.4 g/dL 5.0 g/dL Albumin/Globulin Ratio 0.6 (1.0-2.7) L 0.5 (1.0-2.7) L Salicylates Level 1.1 ug/mL (2.8-20) L Acetaminophen Level < 2 MCG/ML (10-30) L Phenytoin (Dilantin) Level 21.0 ug/mL (10-20) H POC Whole Blood Glucose 89 MG/DL (74-106) 101 MG/DL (74-106) Test 08/11/20 04:51 08/11/20 11:27 POC Whole Blood Glucose 88 MG/DL (74-106) 105 MG/DL (74-106) Arterial Blood pH 7.435 (7.350-7.450) Arterial Blood Partial Pressure CO2 35.6 mmHg (35.0-45.0) Arterial Blood Partial Pressure O2 138.4 mmHg (75.0-100.0) H Arterial Blood HCO3 23.4 mmol/L (22.0-26.0) Arterial Blood Oxygen Saturation 98.6 % (95-100) Arterial Blood Base Excess -0.5 (-2-2) Best Test Positive Microbiology Date/Time Source Procedure Growth Status 08/10/20 16:30 Rectum Received Height (Feet): 6 Height (Inches): 0.00 Weight (Pounds): 200 Medications Current Medications Medications (Trade) Dose Ordered Sig/Boubacar Route PRN Reason Start Time Stop Time Status Last Admin Dose Admin Acetaminophen (Tylenol) 640 mg Q6H PRN GT FEVER 08/10/20 23:15 09/09/20 23:14 Dextrose (Dextrose 50%) 25 ml Q30M PRN IV Hypoglycemia 08/10/20 23:15 11/08/20 23:14 Dextrose (Dextrose 50%) 50 ml Q30M PRN IV Hypoglycemia 08/10/20 23:15 11/08/20 23:14 Dextrose/Sodium Chloride 1,000 ml @ 50 mls/hr Q20H IV 08/11/20 11:00 09/10/20 10:59 08/11/20 11:22 Docusate Sodium (Colace) 100 mg DAILY GT 08/11/20 09:00 09/10/20 08:59 08/11/20 09:25 Heparin Sodium (Porcine) (Heparin 5000 units/ml) 5,000 units EVERY 12 HOURS SUBQ 08/11/20 21:00 09/25/20 20:59 UNV Insulin Aspart (NovoLOG) Q6HR SUBQ 08/11/20 06:00 11/09/20 06:29 Levetiracetam 100 ml @ 400 mls/hr Q12HR IVPB 08/11/20 09:00 11/09/20 08:59 12/8/20 09:26 Levothyroxine Sodium (Synthroid) 150 mcg DAILY@0630 GT 08/11/20 06:30 09/10/20 06:29 08/11/20 06:23 Magnesium Hydroxide (Mom) 30 ml QHS PRN GT Constipation 08/11/20 21:00 09/10/20 20:59 Assessment/Plan Assessment/Plan: 1. Acute seizure with h/o seizure disorder 2. Sinus bradycardia 3. Respiratory failure s/p trach 4. RBBB Echo pending, repeat EKG Not currently on pressors Vent dependent Penny Hatch PA-C Aug 11, 2020 11:59
[2020-08-11 12:00] VITALS: BP 103/51
--- NOTE | 2020-08-11 12:00 | NUR ---
NURSE NOTES: BS 105 noted. No coverage per order. Will closely monitor the patient. Will continue plan of care.
--- NOTE | 2020-08-11 12:01 | Neurology Progress Note ---
Interim History Interim History Interim History 80-year-old female presents status post seizure. Brought in by EMS from [facility] facility. Witnessed seizure at facility. Had another seizure on arrival. Nonverbal at baseline. Trach/vent. History of seizures and takes Dilantin. Dilantin levels therapeutic, seizures aborted after ER and ativan sp keppra 500 Objective Physical Exam Last Vital Signs Date Time Temp Pulse Resp B/P (MAP) Pulse Ox O2 Delivery O2 Flow Rate FiO2 08/11/20 11:11 64 18 50 08/11/20 04:00 97.7 149/65 (93) 98 08/11/20 04:00 Mechanical Ventilator 08/10/20 21:53 10.0 Laboratory Tests Test 08/10/20 16:54 08/10/20 18:45 08/11/20 01:35 08/11/20 03:15 White Blood Count 7.3 K/UL (4.8-10.8) 8.1 K/UL (4.8-10.8) Red Blood Count 3.71 M/UL (4.20-5.40) L 3.51 M/UL (4.20-5.40) L Hemoglobin 12.0 G/DL (12.0-16.0) 11.5 G/DL (12.0-16.0) L Hematocrit 36.2 % (37.0-47.0) L 33.3 % (37.0-47.0) L Mean Corpuscular Volume 98 FL (80-99) 95 FL (80-99) Mean Corpuscular Hemoglobin 32.4 PG (27.0-31.0) H 32.6 PG (27.0-31.0) H Mean Corpuscular Hemoglobin Concent 33.2 G/DL (32.0-36.0) 34.4 G/DL (32.0-36.0) Red Cell Distribution Width 16.7 % (11.6-14.8) H 16.7 % (11.6-14.8) H Platelet Count 152 K/UL (150-450) 154 K/UL (150-450) Mean Platelet Volume 10.7 FL (6.5-10.1) H 10.3 FL (6.5-10.1) H Neutrophils (%) (Auto) 68.6 % (45.0-75.0) 76.5 % (45.0-75.0) H Lymphocytes (%) (Auto) 19.1 % (20.0-45.0) L 13.6 % (20.0-45.0) L Monocytes (%) (Auto) 10.1 % (1.0-10.0) H 8.3 % (1.0-10.0) Eosinophils (%) (Auto) 0.9 % (0.0-3.0) 0.7 % (0.0-3.0) Basophils (%) (Auto) 1.2 % (0.0-2.0) 0.9 % (0.0-2.0) Urine Color Pale yellow Urine Appearance Clear Urine pH 6.5 (4.5-8.0) Urine Specific [place] 1.015 (1.005-1.035) Urine Protein 1+ (NEGATIVE) H Urine Glucose (UA) Negative (NEGATIVE) Urine Ketones Negative (NEGATIVE) Urine Blood Negative (NEGATIVE) Urine Nitrite Negative (NEGATIVE) Urine Bilirubin Negative (NEGATIVE) Urine Urobilinogen Normal MG/DL (0.0-1.0) Urine Leukocyte Esterase Negative (NEGATIVE) Urine RBC 0 /HPF (0 - 2) Urine WBC 0-2 /HPF (0 - 2) Urine Squamous Epithelial Cells Few /LPF (NONE/OCC) Urine Amorphous Sediment Few /LPF (NONE) H Urine Bacteria Few /HPF (NONE) Sodium Level 133 MMOL/L (136-145) L 137 MMOL/L (136-145) Potassium Level 4.1 MMOL/L (3.5-5.1) 3.5 MMOL/L (3.5-5.1) Chloride Level 100 MMOL/L (98-107) 105 MMOL/L (98-107) Carbon Dioxide Level 26 MMOL/L (21-32) 23 MMOL/L (21-32) Anion Gap 7 mmol/L (5-15) 9 mmol/L (5-15) Blood Urea Nitrogen 22 mg/dL (7-18) H 17 mg/dL (7-18) Creatinine 0.6 MG/DL (0.55-1.30) 0.5 MG/DL (0.55-1.30) L Estimat Glomerular Filtration Rate > 60 mL/min (>60) > 60 mL/min (>60) Glucose Level 108 MG/DL (74-106) H 104 MG/DL (74-106) Lactic Acid Level 1.20 mmol/L (0.4-2.0) Calcium Level 8.9 MG/DL (8.5-10.1) 8.2 MG/DL (8.5-10.1) L Total Bilirubin 0.2 MG/DL (0.2-1.0) 0.2 MG/DL (0.2-1.0) Aspartate Amino Transf (AST/SGOT) 36 U/L (15-37) 30 U/L (15-37) Alanine Aminotransferase (ALT/SGPT) 28 U/L (12-78) 28 U/L (12-78) Alkaline Phosphatase 272 U/L (46-116) H 232 U/L (46-116) H Troponin I 0.015 ng/mL (0.000-0.056) Total Protein 8.5 G/DL (6.4-8.2) H 7.7 G/DL (6.4-8.2) Albumin 3.1 G/DL (3.4-5.0) L 2.7 G/DL (3.4-5.0) L Globulin 5.4 g/dL 5.0 g/dL Albumin/Globulin Ratio 0.6 (1.0-2.7) L 0.5 (1.0-2.7) L Salicylates Level 1.1 ug/mL (2.8-20) L Acetaminophen Level < 2 MCG/ML (10-30) L Phenytoin (Dilantin) Level 21.0 ug/mL (10-20) H POC Whole Blood Glucose 89 MG/DL (74-106) 101 MG/DL (74-106) Test 08/11/20 04:51 08/11/20 11:27 POC Whole Blood Glucose 88 MG/DL (74-106) 105 MG/DL (74-106) Arterial Blood pH 7.435 (7.350-7.450) Arterial Blood Partial Pressure CO2 35.6 mmHg (35.0-45.0) Arterial Blood Partial Pressure O2 138.4 mmHg (75.0-100.0) H Arterial Blood HCO3 23.4 mmol/L (22.0-26.0) Arterial Blood Oxygen Saturation 98.6 % (95-100) Arterial Blood Base Excess -0.5 (-2-2) Best Test Positive Neurologic Exam Objective somnolent wakes up tracks weak in all 4, quadriparetic bebdbound cc 35 min Impression/Recommendations Problems: (1) Decubitus skin ulcer (2) Abnormal LFTs (3) Bradycardia (4) Elevated Dilantin level (5) Seizures (6) Hypophosphatemia (7) Aspiration pneumonia (8) Bacteremia due to Gram-negative bacteria (9) Septic shock (10) Chronic respiratory failure (11) Vegetative state (12) Acute and chronic respiratory failure (13) Anoxic brain damage syndrome (14) Feeding by G-tube (15) Hypothyroidism (16) Seizure disorder (17) HTN (hypertension) (18) Functional paraplegia (19) Paroxysmal supraventricular tachycardia (20) AV block, 2nd degree (21) Bowel obstruction (22) Anemia (23) Malfunction of gastrostomy tube (24) G-tube site cellulitis (25) LGI bleed Diagnostic Impression status epilepticus epilepsy, not controlled on Dilantin sepsis ro covid start keppra 750 mg bid dc dilantin covid supportive care eeg Johnny Dudley MD Aug 11, 2020 12:01
--- NOTE | 2020-08-11 12:52 | Diagnostic Imaging Report ---
Procedure: XRAY Chest 1v Reason for study: Redness of breath. Comparison films: 11/20/2019. FINDINGS: There is a tracheostomy in place. Vascularity is normal. Hazy basilar infiltrates noted. There are multiple overlying artifacts. Cardiac and mediastinal silhouette are within normal limits. CP angles are sharp. The bony thorax appear unremarkable. IMPRESSION: Hazy basilar infiltrates.
--- NOTE | 2020-08-11 14:00 | NUR ---
NURSE NOTES: The patient is resting comfortably without acute distress or shortness of breath. No seizure noted so far. Still SB on the monitor. Notified Dr. Ford again via phone call. Per Dr. Hogan, it is due to Phenytoin. Will closely monitor the patient. Will continue plan of care.
--- NOTE | 2020-08-11 14:17 | NUR ---
NURSE NOTES:WOUND CARE NOTES:Pt presented on admission with resolving Sacral Pressure Injury(L)5cm x (W)15cm.Base of wound is mixed pink epithelial with surrounding hyperpigmentation. No erythema noted. Both heels are callused and firm. Skin assessed under tracheal collar. Hypopigmented area noted along trachea. No evidence of skin breakdown noted. Tx.Plan: Apply Moisture Barrier Paste to Sacrum. Cover with Optifoam drsg. Change every 3 days and prn. Apply Cavilon Skin Barrier to both heels. Cover each heel with Optifoam drsg. Change every 7days and prn. Reposition at least every 2hours or as tolerated. Off-load heels with Pillow.
--- NOTE | 2020-08-11 14:26 | NUR ---
CASE MANAGEMENT:REVIEW BIBA FROM [facility] CC: SEIZURE PMH: TRACH/VENT SI:SEIZURE. BRADYCARDIA 98.7 54 22 92/41 100% ON VENT SUPPORT NA-133 BUN+22 GLUCOSE+108 DILANTIN LEVEL+21.0 IS: IV ATIVAN 1L NS BOLUS X3 IV ATROPINE BLOOD CX SEIZURE PRECAUTIONS : TO STEP DOWN UNIT
[2020-08-11 16:00] VITALS: BP 104/48
--- NOTE | 2020-08-11 16:00 | NUR ---
NURSE NOTES: Bed bath given to the patient. Wound care done. The patient tolerated well. Still SB on the monitor worker. No seizure activity during shift. Will closely monitor the patient. Will continue plan of care.
--- NOTE | 2020-08-11 18:00 | NUR ---
NURSE NOTES: BS 114 noted. No coverage per protocol. The patient seems calm and comfortable. Will continue plan of care.
--- NOTE | 2020-08-11 19:30 | NUR ---
NURSE HAND-OFF REPORT: Important Events on Shift: No seizure, SB w/ HR lowest of 30s_ Dr. Hogan and Dr. Dudley notified_ cardio consulted per Dr. Hogan, Increased dose for Keppra, Other than that stable thoughout the shift Patient Status: Stable, Full code Diet: GTF Glucerna 1.2 @ 30mL/hr w/ goal of 70mL/hr for 18hrs Pending Orders: EEG being done at the bedside now. Pending Results/Labs: N Pending MD notification: N Latest Vital Signs: Temperature 97.8 , Pulse 54 , B/P 114 /58 , Respiratory Rate 18 , O2 SAT 99 , Mechanical Ventilator, O2 Flow Rate 10.0 . Vital Sign Comment: Stable EKG Rhythm: Sinus Bradycardia Rhythm change?: N MD Notified?: Y -Dr. Samira BROWN Response: Due to Dilantin/ consult Latest Davis Fall Score: 50 Fall Risk: High Risk Safety Measures: Call light Within Reach, Bed Alarm Zone 2, Side Rails Side Rails x2, Bed position Low and Locked. Fall Precautions: Yellow Socks Yellow Gown Door Sign Patient Fall Education Report given to CESAR Garsia. The patient is stable at this time. Endorsed plan of care.
--- NOTE | 2020-08-11 19:54 | NUR ---
NURSE NOTES: Received report from CESAR Mattson, pt. in bed awake, obtunded, no signs or symptoms of acute cardiac or respiratory distress noted, pt. appears to be tolerating current vent settings well- AC 18, TV550, Fio2 at 40% and peep 5- no distress noted, G tube running Glucerna 1.2 at 30cc/hr- goal is 70cc/hr- no residual noted- will increase to 40cc/hr, pure wick intact and set to suction, side rails padded for seizure precautions- no seizure activity noted, aspiration and skin precautions observed, left wrist 22G running D5NS at 50cc/hr- iv intact and patent, safety measures continued, will continue with plan of care.
[2020-08-11 20:00] VITALS: BP 114/58
--- NOTE | 2020-08-11 20:30 | Electroencephalogram ---
DATE OF PROCEDURE: 08/11/2020 REQUESTING PHYSICIAN: Johnny Dudley MD. READING PHYSICIAN: Sidney Romeo MD. DATE OF TRACIN08/11/2020. HISTORY: This EEG was performed on an 80-year-old lady with a history of multiple medical problems including cerebrovascular disease with prior strokes, who was witnessed to have a seizure at her assisted. The purpose of this EEG was to better delineate the type of seizure disorder. TECHNICAL NOTE: This EEG was performed on a [employer] with electrodes placed on the scalp according to the international 10-20 system. [id number] and [id number] montages were used. The EEG was technically satisfactory and was performed while the patient was in an awake, but restless state. OBSERVATIONS: In the reportedly awake but restless state, the background activity consisted of 5 to 6 hertz theta and 2 to 2.5 hertz delta activity over the left hemisphere and 6 to 8 hertz activity over the right hemisphere. Throughout the tracing, left frontocentral temporal polymorphic delta activity was also seen. No epileptiform discharges were seen. IMPRESSION: This is an abnormal EEG characterized by, 1. Slowing of the background in the 5 to 6 hertz theta and 2 to 2.5 hertz delta range over the left hemisphere. 2. Mild slowing of the background in the 6 to 8 hertz range over the right hemisphere. 3. Left frontocentral temporal polymorphic delta activity. COMMENT: The study is consistent with: 1. An encephalopathy of a moderate degree. 2. Left hemispheric dysfunction. 3. Left frontocentral temporal focal dysfunction. Clinical correlation is recommended. Sidney oRmeo M.D. DR: JOAO JOB#: [id number] CC:
[2020-08-11] MEDS: Heparin 5000 units/ml inj SUBQ SCH (20:44)
--- NOTE | 2020-08-11 20:45 | NUR ---
NURSE NOTES: non- administered heparin- pt. having black tarry stool- per endorsement.
[2020-08-11] MEDS: levETIRAcetam 750 MG in NS 100 ML IV SCH (20:47)
[2020-08-11] MEDS ORDERED: Milk of Magnesia 30ml Ud GT PRN (21:00)
[2020-08-11] MEDS ORDERED: Milk of Magnesia 30ml Ud GT SCH (21:00)
[2020-08-11] MEDS ORDERED: levETIRAcetam 750 MG in NS 100 ML IV SCH (21:00)
[2020-08-12] VITALS: BP 116/43
[2020-08-12] MEDS: D5NS 1,000 ML IV SCH ×2 (02:19→23:14)
[2020-08-12 04:00] VITALS: BP 113/55
[2020-08-12] MEDS: NovoLOG Insulin Flexpen SUBQ SCH ×3 (05:24→18:00)
[2020-08-12 06:04] LABS: BASOPHILS % (AUTO) 1.2 % (0.0-2.0); EOSINOPHILS % (AUTO) 3.1 % (0.0-3.0); HEMATOCRIT 32.6 % (37.0-47.0); HEMOGLOBIN 10.8 G/DL (12.0-16.0); LYMPHOCYTES % (AUTO) 24.9 % (20.0-45.0); MEAN CORPUSCULAR VOLUME 98 FL (80-99); MONOCYTES % (AUTO) 9.5 % (1.0-10.0); NEUTROPHILS % (AUTO) 61.4 % (45.0-75.0); PLATELET COUNT 141 K/UL (150-450); RED BLOOD COUNT 3.32 M/UL (4.20-5.40); RED CELL DISTRIBUTION WIDTH 16.6 % (11.6-14.8); WHITE BLOOD COUNT 6.7 K/UL (4.8-10.8)
[2020-08-12 06:11] LABS: BLOOD UREA NITROGEN 14 mg/dL (7-18); CALCIUM 8.2 MG/DL (8.5-10.1); CARBON DIOXIDE 24 MMOL/L (21-32); CHLORIDE 108 MMOL/L (98-107); CREATININE 0.5 MG/DL (0.55-1.30); POTASSIUM 3.6 MMOL/L (3.5-5.1); SODIUM 139 MMOL/L (136-145)
--- NOTE | 2020-08-12 07:15 | NUR ---
NURSE HAND-OFF REPORT: Important Events on Shift:none Patient Status: fair Diet: Glucerna Pending Orders: Pending Results/Labs: Pending MD notification: Latest Vital Signs: Temperature 97.8 , Pulse 58 , B/P 113 /55 , Respiratory Rate 18 , O2 SAT 100 , Mechanical Ventilator, O2 Flow Rate 10.0 . Vital Sign Comment: EKG Rhythm: Sinus Bradycardia Rhythm change?: N MD Notified?: MD Response: Latest Davis Fall Score: 50 Fall Risk: High Risk Safety Measures: Call light Within Reach, Bed Alarm Zone 2, Side Rails Side Rails x2, Bed position Low and Locked. Fall Precautions: Yellow Socks Yellow Gown Door Sign Patient Fall Education Report given to Trista Padilla - aware to f/u on any abnormal am labs- black tarry stool - abdominal distention.
--- NOTE | 2020-08-12 07:20 | NUR ---
NURSE NOTES:Handoff received from CESAR Garsia. patient received awake and obtunded, opens eyes spontaneously but unable to follow commands. Patient is on isolation precautions for PUI Covid as well as fall and seizure precautions, side rails are padded and bed is in the low and locked position, with call light placed under patients right hand. Patient is on cardiac care nurse SB with the lowest HR in the low 30s paged MD twice as there is currently no cardiac doctor on the case, BP is 93/58 PM shift RN states that patient has been connie since admit. patient is on trach to vent with settings shiley 8, AC18,TV550, FI02 40% and PEEP5, tolerating well with 99% o2 sat. MD Cardenas rounded on patient, informed him that Nightshift RN stated patient had dark tarry stool and that abdomen is distended, patient now placed on NPO status, Dr also asked to carryout a 500ML lavage and to update him if blood returns. will follow plan of care.
[2020-08-12 08:00] VITALS: BP 119/61
--- NOTE | 2020-08-12 08:30 | History and Physical Report ---
DATE OF ADMISSION: 08/10/2020 NOTE: INCOMPLETE DICTATION HISTORY OF PRESENT ILLNESS: This is an 80-year-old, chronic trach, chronic vent, patient brought in from a nursing facility after having had seizures. The patient is on Dilantin at the facility, in fact has a supratherapeutic Dilantin level, however, still found to have seizures at the facility. She was again found to have seizures in the emergency room and again on the step-down unit at [facility]. The patient has been initiated on Keppra and Neurology has been consulted. Most recent ABG is adequate with pH 7.43, pCO2 35, pO2 138 on assist-control mechanical ventilation, FiO2 has been decreased. PAST MEDICAL HISTORY: Notable for chronic tracheostomy, chronic vent, COPD, history of CVA, history of seizures, history of previous sepsis, previous STEMI, history of diverticulosis, chronic encephalopathy. Past history as discussed as above. PAST SURGICAL HISTORY: Chronic G-tube and chronic tracheostomy. MEDICATIONS: List of home medications include Dilantin. She is currently also on Colace, Keppra, and Synthroid. ALLERGIES: Peanuts. REVIEW OF SYSTEMS: Not obtainable. PHYSICAL EXAMINATION: GENERAL: Reveals an 80-year-old female. VITAL SIGNS: Blood pressure is 140/60, heart rate is 48, respirations are 18, O2 saturation is 98% on 50% FiO2. HEENT: Unremarkable. CHEST: Clear breath sounds bilaterally with normal heart sounds. ABDOMEN: Soft. G-tube site is clean. NEUROLOGIC: The patient is nonverbal. LABORATORY DATA: Lab testing shows normal CBC and BMP. Urinalysis is negative. Toxicology showed Dilantin level 21. Grabiel Hogan M.D. DR: Moy JOB#: [id number] CC:
[2020-08-12] MEDS: Heparin 5000 units/ml inj SUBQ SCH (09:00)
--- NOTE | 2020-08-12 09:00 | Consultation ---
DATE OF CONSULTATION: 08/12/2020 CONSULTING PHYSICIAN: Wilmer Cardenas MD CHIEF COMPLAINT: Anemia, GI bleeding. HISTORY OF PRESENT ILLNESS: This is an 80-year-old patient admitted [facility] after having a seizure. Since admission, she has been having complications with bradycardia, which was followed by Cardiology. Also, she is having some black stools and drop in hemoglobin and hematocrit from 12 to 10, so GI consult requested for evaluation. PAST MEDICAL HISTORY: 1. History of asthma. 2. History of COPD. 3. History of CVA. 4. History of dysphagia with G-tube. 5. Respiratory failure with chronic trach. 6. History of seizure disorder. 7. Hypertension. 8. Diabetes. 9. Diverticulosis. 10. History of encephalopathy. ALLERGIES: To peanuts. MEDICATIONS: Please see medication reconciliation list. SOCIAL HISTORY: Currently lives in a [facility]. No history of tobacco, alcohol, or drug abuse. PAST SURGICAL HISTORY: Tracheostomy. REVIEW OF SYSTEMS: Unable to obtain. PHYSICAL EXAMINATION: VITAL SIGNS: Temperature is 97.8, pulse is 58, respirations 18, blood pressure is 113/55. HEENT: Normocephalic, atraumatic. Pale conjunctivae. NECK: Supple. No evidence of obvious lymphadenopathy. CARDIOVASCULAR: Bradycardia. Plus S1-S2. LUNGS: Decreased breath sounds bilaterally diffusely on the supine exam. ABDOMEN: Soft, nontender. G-tube in place. No rebound. No guarding. No peritoneal sign. EXTREMITIES: No cyanosis, no clubbing, no edema. LABORATORY DATA: White count 6.7, hemoglobin 10.6, hematocrit 32, platelet count 141. Sodium 139, potassium 3.6, BUN is 14, creatinine is 0.9. ASSESSMENT: This is an 80-year-old female admitted to the hospital with seizures and now was found to be bradycardic, anemic with some black tarry stools. PLAN: Hold the feeding for today. Repeat labs for tomorrow. Iron panel, B12, folic acid level. Stool for OB. Start the patient on Protonix 40 mg q.12. I instructed the nurses at the bedside to do a 500 mL G-tube lavage and report to me with the results and based on that we are going to decide to do endoscopy or not. Wilmer Herbie Cardenas DR: LIDIA JOB#: [id number] CC:
[2020-08-12] MEDS: levETIRAcetam 750 MG in NS 100 ML IV SCH ×2 (09:10→20:27)
[2020-08-12] MEDS: Docusate 100mg/10ml Liq GT SCH (09:10)
[2020-08-12] MEDS: Pantoprazole Inj IVP SCH ×2 (09:11→20:27)
[2020-08-12] MEDS ORDERED: Lidocaine 1% Plain 30 ml INJ PRN ×2 (11:15→11:53)
[2020-08-12] MEDS ORDERED: Heparin1,000 units/500ml Premix(Conc:2 units/ml) IV PRN ×2 (11:15→11:53)
--- NOTE | 2020-08-12 11:35 | NUR ---
NURSE NOTES:Dr Hogan rounded on patient and stated he received my message regarding patient low heart rate. MD stated that if BP drops to transfer to ICU. MD gave order for PICC line and then 5mcg dopamine drip.
--- NOTE | 2020-08-12 11:45 | Pulmonology Progress Note ---
Subjective Interval Events: Remains bradycardic; not hypotensive Constitutional: Reports: no symptoms HEENT: Repors: no symptoms Respiratory: Reports: no symptoms Cardiovascular: Reports: no symptoms Gastrointestinal/Abdominal: Reports: no symptoms Allergies: Coded Allergies: PEANUT (Verified Allergy, Unknown, 09/22/16) Objective Last 24 Hour Vital Signs Date Time Temp Pulse Resp B/P (MAP) Pulse Ox O2 Delivery O2 Flow Rate FiO2 08/12/20 08:00 97.9 40 18 119/61 (80) 99 08/12/20 08:00 40 08/12/20 08:00 Mechanical Ventilator 08/12/20 07:25 52 20 40 08/12/20 04:00 Mechanical Ventilator 08/12/20 04:00 40 08/12/20 04:00 97.8 58 18 113/55 (74) 100 08/12/20 03:36 51 18 40 08/12/20 03:32 41 08/12/20 00:00 97.5 51 18 116/43 (67) 99 08/12/20 00:00 Mechanical Ventilator 08/12/20 00:00 40 08/11/20 23:30 45 08/11/20 23:10 48 20 40 08/11/20 20:00 Mechanical Ventilator 08/11/20 20:00 40 08/11/20 20:00 97.8 54 18 114/58 (76) 99 08/11/20 19:56 51 08/11/20 19:10 41 18 40 08/11/20 16:00 40 08/11/20 16:00 97.8 51 18 104/48 (66) 100 51 08/11/20 16:00 Mechanical Ventilator 08/11/20 15:57 42 08/11/20 15:14 41 18 40 08/11/20 12:00 Mechanical Ventilator 08/11/20 12:00 40 08/11/20 12:00 97.5 53 18 103/51 (68) 100 53 08/11/20 12:00 73 l Intake and Output 08/11/20 08/12/20 18:59 06:59 Intake Total 310 ml 1513 ml Output Total 1000 ml 875 ml Balance -690 ml 638 ml Intake Free Water 100 ml 100 ml IV Total 963 ml Tube Feeding 210 ml 450 ml Output Urine Total 1000 ml 875 ml # Bowel Movements 1 General Appearance: no acute distress HEENT: normocephalic Respiratory: chest wall non-tender, lungs clear Cardiovascular: normal peripheral pulses Abdomen: normal bowel sounds Extremities: no cyanosis Microbiology Date/Time Source Procedure Growth Status 08/10/20 16:58 Blood Blood Culture - Preliminary NO GROWTH AFTER 24 HOURS Resulted 08/10/20 16:30 Rectum Received 08/10/20 16:30 Blood Blood Culture - Preliminary NO GROWTH AFTER 24 HOURS Resulted Laboratory Tests 08/11/20 17:08: POC Whole Blood Glucose 114H 08/11/20 23:46: POC Whole Blood Glucose [Pending] 08/12/20 03:45: White Blood Count 6.7, Red Blood Count 3.32L, Hemoglobin 10.8L, Hematocrit 32.6L , Mean Corpuscular Volume 98, Mean Corpuscular Hemoglobin 32.6H, Mean Corpuscular Hemoglobin Concent 33.1, Red Cell Distribution Width 16.6H, Platelet Count 141L, Mean Platelet Volume 11.6H, Neutrophils (%) (Auto) 61.4, Lymphocytes (%) (Auto) 24.9, Monocytes (%) (Auto) 9.5, Eosinophils (%) (Auto) 3.1H, Basophils (%) (Auto) 1.2, Sodium Level 139, Potassium Level 3.6, Chloride Level 108H, Carbon Dioxide Level 24, Blood Urea Nitrogen 14, Creatinine 0.5L, Estimat Glomerular Filtration Rate > 60, Glucose Level 88, Calcium Level 8.2L 08/12/20 05:20: POC Whole Blood Glucose [Pending] Current Medications Medications (Trade) Dose Ordered Sig/Boubacar Route PRN Reason Start Time Stop Time Status Last Admin Dose Admin Acetaminophen (Tylenol) 640 mg Q6H PRN GT FEVER 08/10/20 23:15 09/09/20 23:14 Chlorhexidine Gluconate ([place]-Hex 2%) 1 applic DAILY@2000 TOPIC 08/12/20 20:00 11/10/20 19:59 Dextrose (Dextrose 50%) 25 ml Q30M PRN IV Hypoglycemia 08/10/20 23:15 11/08/20 23:14 Dextrose (Dextrose 50%) 50 ml Q30M PRN IV Hypoglycemia 08/10/20 23:15 11/08/20 23:14 Dextrose/Sodium Chloride 1,000 ml @ 50 mls/hr Q20H IV 08/11/20 11:00 09/10/20 10:59 08/12/20 02:19 Docusate Sodium (Colace) 100 mg DAILY GT 08/11/20 09:00 09/10/20 08:59 08/12/20 09:10 Heparin Sodium (Porcine) (Heparin 5000 units/ml) 5,000 units EVERY 12 HOURS SUBQ 08/11/20 21:00 09/25/20 20:59 Heparin Sodium/ Sodium Chloride (Heparin 1000 units/500ml Premix) 1,000 unit ONCE PRN IV PICC 08/12/20 11:15 08/12/20 23:59 Insulin Aspart (NovoLOG) Q6HR SUBQ 08/11/20 06:00 11/09/20 06:29 Levetiracetam 750 mg/Sodium Chloride 107.5 ml @ 430 mls/hr Q12H IV 08/11/20 21:00 09/10/20 20:59 08/12/20 09:10 Levothyroxine Sodium (Synthroid) 150 mcg DAILY@0630 GT 08/11/20 06:30 09/10/20 06:29 08/12/20 06:30 Lidocaine HCl (Xylocaine 1% 30ml) 30 ml ONCE PRN INJ PICC 08/12/20 11:15 08/12/20 23:59 Magnesium Hydroxide (Mom) 30 ml QHS PRN GT Constipation 08/11/20 21:00 09/10/20 20:59 Pantoprazole (Protonix) 40 mg EVERY 12 HOURS IVP 08/12/20 09:00 09/11/20 08:59 08/12/20 09:11 Assessment/Plan Assessment/Plan 1. Supratherapeutic Dilantin level. 2. Recurrent seizures. 3. GI bleed 4. Chronic respiratory failure. 5. Bradycardia DISCUSSION: Seen by cardiology, neurology and GI. Continue vent. Continue present medications care. I will follow carefully. May need PPM Will start dopamine for bradycardia Will request PICC line Continue vent; AC mode ABG adequate Herbie Spaulding Omar Syed MD Aug 12, 2020 11:45
[2020-08-12 12:00] VITALS: BP 123/61
--- NOTE | 2020-08-12 12:27 | NUR ---
NURSE NOTES:Called Laura Bowling(daughter) and got telephone consent for PICC line, daughter stated Dr Hogan answered all of her questions regarding the procedure. Verified with second RN Solange.
[2020-08-12] MEDS: cefTRIAXone 1 GM in D5W 55 ML IVPB SCH (12:43)
--- NOTE | 2020-08-12 13:19 | Pre-Procedure Note/Attestation ---
Pre-Procedure Note/Attestation Complete Prior to Procedure Planned Procedure: not applicable Procedure Narrative: PICC PLACEMENT Indications for Procedure Pre-Operative Diagnosis: Requires terminal worker IV access Attestation I attest that I discussed the nature of the procedure; its benefits; risks and complications; and alternatives (and the risks and benefits of such alternatives), prior to the procedure, with the patient (or the patient's legal residential sales representative). I attest that, if there was a reasonable possibility of needing a blood transfusion, the patient (or the patient's legal residential sales representative) was given the [facility] standardized written summary, pursuant to the [place] Blood Safety Act ([place] Health and Safety Code # 1645, as amended). I attest that I re-evaluated the patient just prior to the surgery and that there has been no change in the patient's H&P, except as documented below: Demetrius Zhu MD Aug 12, 2020 13:19
--- NOTE | 2020-08-12 14:22 | Brief Operative Note ---
Immediate Post Operative Note Operative Note Chief Complaint: GI bleed Pre-op Diagnosis: Requires manager intermediate IV access Procedure: US guided bedside PICC placement (L) Post-op Diagnosis: GI bleed Post-op Diagnosis: same as pre-op Findings: consistent w/pre-op dx studies Surgeon: Demetrius Zhu MD, MA Specimen: none Complications: none Fluids: 0 Implant(s) used?: Yes - 4Fr DL PICC (L) Demetrius Zhu MD Aug 12, 2020 14:22
--- NOTE | 2020-08-12 15:29 | NUR ---
CASE MANAGEMENT:REVIEW 08/12/20 SI: RECURRENT SEIZURES. BRADYCARDIA SUPRA-THERAPEUTIC DILANTIN LEVEL. TRACH/VENT 97.9 40 18 119/61 99% ON VENT SUPPORT W/40% FIO2 CA-8.2 IS: DOPAMINE GTT 5MCG/KG/MIN IV ROCEPHIN Q24 IV KEPPRA Q12 IV PROTONIX Q12 IVF@50/HR : STEP DOWN UNIT DCP; FROM [facility] PLAN: START INOTROPE FOR BRADYCARDIA PICC LINE PLACEMENT
--- NOTE | 2020-08-12 15:35 | Diagnostic Imaging Report ---
Indication: Reason For Exam: LINE Technique: Single AP view of the chest. Comparison: Chest radiograph dated 08/11/2020 Findings: The cardiomediastinal silhouette is unchanged in appearance. Redemonstration of diffuse interstitial prominence and bibasilar patchy airspace opacities. No new airspace consolidation. No pneumothorax or pleural effusion. No acute osseous abnormality. Unchanged cannulated tracheostomy. Interval placement of left PICC, which terminates in the expected location of the cavoatrial junction. IMPRESSION: 1. No significant change in pulmonary findings when compared to most recent examination. 2. Interval placement of left PICC, which terminates in expected location of the cavoatrial junction.
--- NOTE | 2020-08-12 15:49 | Cardiology Progress Note ---
Assessment/Plan Status: not improved Assessment/Plan 1. Acute seizure with h/o seizure disorder 2. Sinus bradycardia - started on dopamine gtt 3. Respiratory failure s/p trach 4. RBBB Echo done, result pending. Pt is vent dependent, bradycardia supported by dopamine drip. SBP 118 at time of exam. Subjective ROS Limited/Unobtainable: Yes Objective Last 24 Hour Vital Signs Date Time Temp Pulse Resp B/P (MAP) Pulse Ox O2 Delivery O2 Flow Rate FiO2 08/12/20 12:00 Mechanical Ventilator 08/12/20 12:00 97.3 48 18 123/61 (81) 99 08/12/20 12:00 53 08/12/20 12:00 40 08/12/20 08:00 97.9 40 18 119/61 (80) 99 08/12/20 08:00 47 08/12/20 08:00 40 08/12/20 08:00 Mechanical Ventilator 08/12/20 07:25 52 20 40 08/12/20 04:00 Mechanical Ventilator 08/12/20 04:00 40 08/12/20 04:00 97.8 58 18 113/55 (74) 100 08/12/20 03:36 51 18 40 08/12/20 03:32 41 08/12/20 00:00 97.5 51 18 116/43 (67) 99 08/12/20 00:00 Mechanical Ventilator 08/12/20 00:00 40 08/11/20 23:30 45 08/11/20 23:10 48 20 40 08/11/20 20:00 Mechanical Ventilator 08/11/20 20:00 40 08/11/20 20:00 97.8 54 18 114/58 (76) 99 08/11/20 19:56 51 08/11/20 19:10 41 18 40 08/11/20 16:00 40 08/11/20 16:00 97.8 51 18 104/48 (66) 100 51 08/11/20 16:00 Mechanical Ventilator 08/11/20 15:57 42 General Appearance: on vent Neck: other Rhythm: NSR Cardiovascular: bradycardia Respiratory/Chest: no accessory muscle use Extremities: trace edema Neurologic: unresponsiveness, aphasia Intake and Output 08/11/20 08/12/20 19:00 07:00 Intake Total 390 ml 1483 ml Output Total 1000 ml 875 ml Balance -610 ml 608 ml Intake Free Water 100 ml 100 ml IV Total 50 ml 963 ml Tube Feeding 240 ml 420 ml Output Urine Total 1000 ml 875 ml # Bowel Movements 1 2D Echo: pending Laboratory Tests Test 08/11/20 17:08 08/11/20 23:46 08/12/20 03:45 08/12/20 05:20 POC Whole Blood Glucose 114 MG/DL (74-106) H Pending Pending White Blood Count 6.7 K/UL (4.8-10.8) Red Blood Count 3.32 M/UL (4.20-5.40) L Hemoglobin 10.8 G/DL (12.0-16.0) L Hematocrit 32.6 % (37.0-47.0) L Mean Corpuscular Volume 98 FL (80-99) Mean Corpuscular Hemoglobin 32.6 PG (27.0-31.0) H Mean Corpuscular Hemoglobin Concent 33.1 G/DL (32.0-36.0) Red Cell Distribution Width 16.6 % (11.6-14.8) H Platelet Count 141 K/UL (150-450) L Mean Platelet Volume 11.6 FL (6.5-10.1) H Neutrophils (%) (Auto) 61.4 % (45.0-75.0) Lymphocytes (%) (Auto) 24.9 % (20.0-45.0) Monocytes (%) (Auto) 9.5 % (1.0-10.0) Eosinophils (%) (Auto) 3.1 % (0.0-3.0) H Basophils (%) (Auto) 1.2 % (0.0-2.0) Sodium Level 139 MMOL/L (136-145) Potassium Level 3.6 MMOL/L (3.5-5.1) Chloride Level 108 MMOL/L (98-107) H Carbon Dioxide Level 24 MMOL/L (21-32) Blood Urea Nitrogen 14 mg/dL (7-18) Creatinine 0.5 MG/DL (0.55-1.30) L Estimat Glomerular Filtration Rate > 60 mL/min (>60) Glucose Level 88 MG/DL (74-106) Calcium Level 8.2 MG/DL (8.5-10.1) L Microbiology Date/Time Source Procedure Growth Status 08/10/20 16:58 Blood Blood Culture - Preliminary NO GROWTH AFTER 24 HOURS Resulted 08/10/20 16:30 Rectum Received 08/10/20 16:30 Blood Blood Culture - Preliminary NO GROWTH AFTER 24 HOURS Resulted Objective Bradycardic today down to 30's, started on dopamine. SBP 118 Penny Hatch PA-C Aug 12, 2020 15:49
[2020-08-12 16:00] VITALS: BP 122/50
[2020-08-12] MEDS: DOPamine 400mg/250ml 250 ML IV SCH ×2 (16:18→16:35)
--- NOTE | 2020-08-12 16:27 | NUR ---
RADIOLOGY NOTE: LEFT UPPER EXTREMITY PICC LINE PLACEMENT BY DR. TALAVERA AT 1400 HRS. FA
--- NOTE | 2020-08-12 16:49 | Diagnostic Imaging Report ---
Indication:Leg pain and swelling Technique: Grayscale and duplex Doppler imaging of the veins in both lower extremities performed in real time utilizing compression and augmentation. Comparison: Lower extremity venous Doppler study dated 11/12/2019 Findings: Duplex Doppler interrogation of the veins in both lower extremity is performed from the common femoral vein to the popliteal vein. Normal venous compressibility demonstrated throughout. No thrombus identified. Waveform analysis shows good respiratory phasicity and augmentation. IMPRESSION: No evidence of deep venous thrombosis involving the lower extremities.
[2020-08-12] MEDS ORDERED: APATATE FORTE237 ML GT (17:04)
[2020-08-12] MEDS ORDERED: HIBICLENS118 ML PO (17:04)
[2020-08-12] MEDS ORDERED: SIMETHICONE80 MG GT (17:04)
[2020-08-12] MEDS ORDERED: FERROUS SU220 MG/51 GT (17:04)
[2020-08-12] MEDS ORDERED: UTI-STAT L3875 MG/31 GT (17:04)
--- NOTE | 2020-08-12 18:55 | NUR ---
NURSE NOTES:Gastric Lavage performed with 500ML water flushed through G tube then aspirated out. No clots or blood noted. Informed Dr Cardenas of the findings.
--- NOTE | 2020-08-12 19:20 | NUR ---
NURSE NOTES: Received report from CESAR Padilla. Pt awake in bed, eyes tracking when name is called,afebrile, has no respiratory distress noted.SB at 33-38 on registered nurse cardiac telemetry.On Dopamine at 5 mcg/kg/min via PICC line. MD aware already. vent to trache Shiley 8, AC 18, Tidal volume 550, FiO2 40%, 40%, PEEP 5 saturating at 97-99%. With left upper arm PICC line and left Fore arm 18 g IV line intact, patent and asymptomatic. On GT patent,flushed and no sediments noted. With purewick in place draining erick yellow urine. Needs were attended. Bed wheels are locked and rails are up. Continue to monitor the patient.
[2020-08-12 20:00] VITALS: BP 111/22
[2020-08-12] MEDS ORDERED: Dyna-Hex 2% Top Sol 2oz TOPIC SCH (20:00)
[2020-08-12] MEDS: Dyna-Hex 2% Top Sol 2oz TOPIC SCH (20:27)
--- NOTE | 2020-08-12 21:39 | Neurology Progress Note ---
Interim History Interim History ROS Limited/Unobtainable: Yes Interim History no new seizures tolerating keppra Objective Physical Exam Last Vital Signs Date Time Temp Pulse Resp B/P (MAP) Pulse Ox O2 Delivery O2 Flow Rate FiO2 08/12/20 20:00 40 08/12/20 20:00 Mechanical Ventilator 08/12/20 20:00 97.7 42 18 111/22 (51) 100 08/10/20 21:53 10.0 Laboratory Tests Test 08/11/20 23:46 08/12/20 03:45 08/12/20 05:20 POC Whole Blood Glucose Pending Pending White Blood Count 6.7 K/UL (4.8-10.8) Red Blood Count 3.32 M/UL (4.20-5.40) L Hemoglobin 10.8 G/DL (12.0-16.0) L Hematocrit 32.6 % (37.0-47.0) L Mean Corpuscular Volume 98 FL (80-99) Mean Corpuscular Hemoglobin 32.6 PG (27.0-31.0) H Mean Corpuscular Hemoglobin Concent 33.1 G/DL (32.0-36.0) Red Cell Distribution Width 16.6 % (11.6-14.8) H Platelet Count 141 K/UL (150-450) L Mean Platelet Volume 11.6 FL (6.5-10.1) H Neutrophils (%) (Auto) 61.4 % (45.0-75.0) Lymphocytes (%) (Auto) 24.9 % (20.0-45.0) Monocytes (%) (Auto) 9.5 % (1.0-10.0) Eosinophils (%) (Auto) 3.1 % (0.0-3.0) H Basophils (%) (Auto) 1.2 % (0.0-2.0) Sodium Level 139 MMOL/L (136-145) Potassium Level 3.6 MMOL/L (3.5-5.1) Chloride Level 108 MMOL/L (98-107) H Carbon Dioxide Level 24 MMOL/L (21-32) Blood Urea Nitrogen 14 mg/dL (7-18) Creatinine 0.5 MG/DL (0.55-1.30) L Estimat Glomerular Filtration Rate > 60 mL/min (>60) Glucose Level 88 MG/DL (74-106) Calcium Level 8.2 MG/DL (8.5-10.1) L Neurologic Exam Objective somnolent wakes up tracks weak in all 4, quadriparetic bebdbound cc 35 min Impression/Recommendations Problems: (1) Decubitus skin ulcer (2) Abnormal LFTs (3) Bradycardia (4) Elevated Dilantin level (5) Seizures (6) Hypophosphatemia (7) Aspiration pneumonia (8) Bacteremia due to Gram-negative bacteria (9) Septic shock (10) Chronic respiratory failure (11) Vegetative state (12) Acute and chronic respiratory failure (13) Anoxic brain damage syndrome (14) Feeding by G-tube (15) Hypothyroidism (16) Seizure disorder (17) HTN (hypertension) (18) Functional paraplegia (19) Paroxysmal supraventricular tachycardia (20) AV block, 2nd degree (21) Bowel obstruction (22) Anemia (23) Malfunction of gastrostomy tube (24) G-tube site cellulitis (25) LGI bleed Status: not improved Diagnostic Impression status epilepticus epilepsy, not controlled on Dilantin sepsis ro covid start keppra 750 mg bid dc dilantin covid supportive care eeg Johnny Dudley MD Aug 12, 2020 21:39
[2020-08-13] VITALS: BP 132/46
--- NOTE | 2020-08-13 02:00 | NUR ---
NURSE NOTES: Pt awake in bed, afebrile, no respiratory distress noted. SB 37-41 bpm. Asymptomatic. Continue to monitor the patient.
[2020-08-13 04:00] VITALS: BP 133/39
[2020-08-13] MEDS: NovoLOG Insulin Flexpen SUBQ SCH ×5 (05:12→23:32)
[2020-08-13 05:54] LABS: BASOPHILS % (AUTO) 2.2 % (0.0-2.0); EOSINOPHILS % (AUTO) 2.9 % (0.0-3.0); HEMOGLOBIN 10.8 G/DL (12.0-16.0); LYMPHOCYTES % (AUTO) 24.4 % (20.0-45.0); MEAN CORPUSCULAR VOLUME 99 FL (80-99); MONOCYTES % (AUTO) 8.6 % (1.0-10.0); PLATELET COUNT 152 K/UL (150-450); RED BLOOD COUNT 3.33 M/UL (4.20-5.40); RED CELL DISTRIBUTION WIDTH 16.9 % (11.6-14.8); WHITE BLOOD COUNT 6.2 K/UL (4.8-10.8)
--- NOTE | 2020-08-13 06:10 | NUR ---
NURSE NOTES: Pt asleep in bed, no respiratory distress noted. SB 35-40 bpm. Asymptomatic. Continue to monitor
[2020-08-13 06:35] LABS: INR 1.1 (0.9-1.1)
--- NOTE | 2020-08-13 07:15 | NUR ---
NURSE NOTES:Handoff received from CESAR BENDER. patient received awake and obtunded, opens eyes spontaneously. Patient is on isolation precautions for PUI Covid as well as fall and seizure precautions, side rails are padded and bed is in the low and locked position, with call light placed under patients right hand. Patient is on pvc monitor SB with the lowest HR in the low 30s. MD aware and patient is on 5MCG/KG/MIN dopamine drip. patient is on trach to vent with settings shiley 8, AC18,TV550, FI02 40% and PEEP5, tolerating well with 100% o2 sat. G tube is patent and flushed but no feeding running as patient is NPO. IV site and picc line are clean dry and intact PICC running Dopamine drip and L wrist running D5NS@50ML/HR. will follow plan of care.
--- NOTE | 2020-08-13 07:15 | NUR ---
NURSE HAND-OFF REPORT: Important Events on Shift: none Patient Status: stable on SB Diet: npo Pending Orders: n Pending Results/Labs:n Pending MD notification:n Latest Vital Signs: Temperature 97.6 , Pulse 40 , B/P 133 /39 , Respiratory Rate 18 , O2 SAT 100 , Mechanical Ventilator, O2 Flow Rate 10.0 . Vital Sign Comment: n EKG Rhythm: Sinus Bradycardia Rhythm change?: N MD Notified?: Y -Dr Samira BROWN Response: Due to Dilantin/ consult Latest Davis Fall Score: 50 Fall Risk: High Risk Safety Measures: Call light Within Reach, Bed Alarm Zone 2, Side Rails Side Rails x2, Bed position Low and Locked. Fall Precautions: Yellow Socks Yellow Gown Door Sign Patient Fall Education Report given to CESAR Miles.
[2020-08-13 07:22] LABS: ALANINE AMINOTRANSFERASE 30 U/L (12-78); ALBUMIN 2.7 G/DL (3.4-5.0); ALBUMIN/GLOBULIN RATIO 0.6 (1.0-2.7); ALKALINE PHOSPHATASE 232 U/L (46-116); ANION GAP 8 mmol/L (5-15); ASPARTATE AMINO TRANSFERASE 28 U/L (15-37); BILIRUBIN,TOTAL 0.3 MG/DL (0.2-1.0); BLOOD UREA NITROGEN 11 mg/dL (7-18); CALCIUM 8.4 MG/DL (8.5-10.1); CARBON DIOXIDE 24 MMOL/L (21-32); CHLORIDE 108 MMOL/L (98-107); CREATININE 0.5 MG/DL (0.55-1.30); POTASSIUM 3.8 MMOL/L (3.5-5.1); SODIUM 139 MMOL/L (136-145)
[2020-08-13 07:43] LABS: % IRON SATURATION 18 % (15-50); IRON 45 ug/dL (50-175); TOTAL IRON BINDING CAPACITY 255 ug/dL (250-450)
[2020-08-13 08:00] VITALS: BP 109/37
--- NOTE | 2020-08-13 08:30 | General Progress Note ---
Subjective ROS Limited/Unobtainable: No Allergies: Coded Allergies: PEANUT (Verified Allergy, Unknown, 09/22/16) Objective Last 24 Hour Vital Signs Date Time Temp Pulse Resp B/P (MAP) Pulse Ox O2 Delivery O2 Flow Rate FiO2 08/13/20 04:00 40 08/13/20 04:00 Mechanical Ventilator 08/13/20 04:00 97.6 40 18 133/39 (70) 100 08/13/20 03:36 35 08/13/20 02:42 42 19 40 08/13/20 00:00 Mechanical Ventilator 08/13/20 00:00 97.3 42 18 132/46 (74) 100 08/12/20 23:31 36 08/12/20 22:33 45 22 40 08/12/20 20:00 40 08/12/20 20:00 Mechanical Ventilator 08/12/20 20:00 97.7 42 18 111/22 (51) 100 08/12/20 19:02 41 08/12/20 18:57 37 18 40 08/12/20 16:35 121/43 08/12/20 16:00 98.1 40 18 122/50 (74) 100 08/12/20 16:00 Mechanical Ventilator 08/12/20 16:00 41 08/12/20 16:00 40 08/12/20 15:30 49 18 40 08/12/20 12:00 Mechanical Ventilator 08/12/20 12:00 97.3 48 18 123/61 (81) 99 08/12/20 12:00 53 08/12/20 12:00 40 08/12/20 10:45 47 18 40 Intake and Output 08/12/20 08/13/20 19:00 07:00 Intake Total 670 ml 645.5 ml Balance 670 ml 645.5 ml Intake Free Water 120 ml IV Total 550 ml 645.5 ml Laboratory Tests 08/12/20 23:49: POC Whole Blood Glucose 137H 08/13/20 03:15: White Blood Count 6.2, Red Blood Count 3.33L, Hemoglobin 10.8L, Hematocrit 33.0L , Mean Corpuscular Volume 99, Mean Corpuscular Hemoglobin 32.4H, Mean Corpuscular Hemoglobin Concent 32.6, Red Cell Distribution Width 16.9H, Platelet Count 152, Mean Platelet Volume 9.8, Neutrophils (%) (Auto) 62.0, Lymphocytes (%) (Auto) 24.4, Monocytes (%) (Auto) 8.6, Eosinophils (%) (Auto) 2.9, Basophils (%) (Auto) 2.2H, Prothrombin Time 12.0H, Prothromb Time International Ratio 1.1, Activated Partial Thromboplast Time 30, Sodium Level 139, Potassium Level 3.8, Chloride Level 108H, Carbon Dioxide Level 24, Anion Gap 8, Blood Urea Nitrogen 11, Creatinine 0.5L, Estimat Glomerular Filtration Rate > 60, Glucose Level 112H , Calcium Level 8.4L, Phosphorus Level [Pending], Magnesium Level [Pending], Iron Level 45L, Total Iron Binding Capacity 255, Percent Iron Saturation 18, Unsaturated Iron Binding 210, Total Bilirubin 0.3, Aspartate Amino Transf (AST/SGOT) 28, Alanine Aminotransferase (ALT/SGPT) 30, Alkaline Phosphatase 232H , Total Protein 7.5, Albumin 2.7L, Globulin 4.8, Albumin/Globulin Ratio 0.6L, Vitamin B12 Level 1511H, Folate 14.9 08/13/20 05:11: POC Whole Blood Glucose 123H Height (Feet): 6 Height (Inches): 0.00 Weight (Pounds): 200 General Appearance: no apparent distress EENT: normal ENT inspection Neck: supple Cardiovascular: normal rate Respiratory/Chest: decreased breath sounds Abdomen: hypoactive bowel sounds Extremities: non-tender Assessment/Plan Status: not improved Assessment/Plan: 1. History of asthma. 2. History of COPD. 3. History of CVA. 4. History of dysphagia with G-tube. 5. Respiratory failure with chronic trach. 6. History of seizure disorder. 7. Hypertension. 8. Diabetes. 9. Diverticulosis. 10. History of encephalopathy. neg NGT lavage stable H&H resume GTF cont ppi labs in Wilmer Kiser MD Aug 13, 2020 08:30
[2020-08-13 08:45] LABS: PHOSPHORUS 2.2 MG/DL (2.5-4.9)
[2020-08-13] MEDS: Docusate 100mg/10ml Liq GT SCH (09:18)
[2020-08-13] MEDS: levETIRAcetam 750 MG in NS 100 ML IV SCH ×2 (09:18→20:11)
[2020-08-13] MEDS: Pantoprazole Inj IVP SCH ×2 (09:18→20:11)
[2020-08-13] MEDS: DOPamine 400mg/250ml 250 ML IV SCH (09:19)
--- NOTE | 2020-08-13 09:30 | NUR ---
NURSE NOTES:Patient started on G tube feeding Vital A.F @ 40Ml hour with goal of 70ML/Hour.
[2020-08-13 12:00] VITALS: BP 120/30
[2020-08-13] MEDS: cefTRIAXone 1 GM in D5W 55 ML IVPB SCH (12:40)
--- NOTE | 2020-08-13 12:55 | Pulmonology Progress Note ---
Subjective ROS Limited/Unobtainable: No Interval Events: Remains bradycardic; not hypotensive Constitutional: Reports: no symptoms HEENT: Repors: no symptoms Respiratory: Reports: no symptoms Cardiovascular: Reports: no symptoms Gastrointestinal/Abdominal: Reports: no symptoms Allergies: Coded Allergies: PEANUT (Verified Allergy, Unknown, 09/22/16) Objective Last 24 Hour Vital Signs Date Time Temp Pulse Resp B/P (MAP) Pulse Ox O2 Delivery O2 Flow Rate FiO2 08/13/20 12:00 97.2 35 18 120/30 (60) 100 08/13/20 11:56 40 08/13/20 11:55 Mechanical Ventilator 08/13/20 09:19 109/37 08/13/20 08:11 64 08/13/20 08:00 Mechanical Ventilator 08/13/20 08:00 97.2 43 18 109/37 (61) 100 08/13/20 08:00 40 08/13/20 04:00 40 08/13/20 04:00 Mechanical Ventilator 08/13/20 04:00 97.6 40 18 133/39 (70) 100 08/13/20 03:36 35 08/13/20 02:42 42 19 40 08/13/20 00:00 Mechanical Ventilator 08/13/20 00:00 97.3 42 18 132/46 (74) 100 08/12/20 23:31 36 08/12/20 22:33 45 22 40 08/12/20 20:00 40 08/12/20 20:00 Mechanical Ventilator 08/12/20 20:00 97.7 42 18 111/22 (51) 100 08/12/20 19:02 41 08/12/20 18:57 37 18 40 08/12/20 16:35 121/43 08/12/20 16:00 98.1 40 18 122/50 (74) 100 08/12/20 16:00 Mechanical Ventilator 08/12/20 16:00 41 08/12/20 16:00 40 08/12/20 15:30 49 18 40 Intake and Output 08/12/20 08/13/20 19:00 07:00 Intake Total 670 ml 645.5 ml Balance 670 ml 645.5 ml Intake Free Water 120 ml IV Total 550 ml 645.5 ml General Appearance: no acute distress HEENT: normocephalic Respiratory: chest wall non-tender, lungs clear Cardiovascular: normal peripheral pulses Abdomen: normal bowel sounds Extremities: no cyanosis Microbiology Date/Time Source Procedure Growth Status 08/10/20 16:58 Nasopharynx Coronavirus COVID-19 PCR ([facility]) - Final Complete 08/10/20 16:58 Blood Blood Culture - Preliminary NO GROWTH AFTER 48 HOURS Resulted 08/10/20 16:30 Rectum - Final NO CARBAPENEM-RESISTANT ENTEROBACTERI... Complete 08/10/20 16:30 Rectum VRE Culture - Final NO VANCOMYCIN RESISTANT ENTEROCOCCUS ... Complete 08/10/20 16:30 Nasal Nares MRSA Culture - Final NO METHICILLIN RESISTANT STAPH AUREUS... Complete 08/10/20 16:30 Blood Blood Culture - Preliminary NO GROWTH AFTER 48 HOURS Resulted Laboratory Tests 08/12/20 23:49: POC Whole Blood Glucose 137H 08/13/20 03:15: White Blood Count 6.2, Red Blood Count 3.33L, Hemoglobin 10.8L, Hematocrit 33.0L , Mean Corpuscular Volume 99, Mean Corpuscular Hemoglobin 32.4H, Mean Corpuscular Hemoglobin Concent 32.6, Red Cell Distribution Width 16.9H, Platelet Count 152, Mean Platelet Volume 9.8, Neutrophils (%) (Auto) 62.0, Lymphocytes (%) (Auto) 24.4, Monocytes (%) (Auto) 8.6, Eosinophils (%) (Auto) 2.9, Basophils (%) (Auto) 2.2H, Prothrombin Time 12.0H, Prothromb Time International Ratio 1.1, Activated Partial Thromboplast Time 30, Sodium Level 139, Potassium Level 3.8, Chloride Level 108H, Carbon Dioxide Level 24, Anion Gap 8, Blood Urea Nitrogen 11, Creatinine 0.5L, Estimat Glomerular Filtration Rate > 60, Glucose Level 112H , Calcium Level 8.4L, Phosphorus Level 2.2L, Magnesium Level 2.1, Iron Level 45L , Total Iron Binding Capacity 255, Percent Iron Saturation 18, Unsaturated Iron Binding 210, Total Bilirubin 0.3, Aspartate Amino Transf (AST/SGOT) 28, Alanine Aminotransferase (ALT/SGPT) 30, Alkaline Phosphatase 232H, Total Protein 7.5, Albumin 2.7L, Globulin 4.8, Albumin/Globulin Ratio 0.6L, Vitamin B12 Level 1511H , Folate 14.9 08/13/20 05:11: POC Whole Blood Glucose 123H 08/13/20 12:39: POC Whole Blood Glucose 113H Current Medications Medications (Trade) Dose Ordered Sig/Boubacar Route PRN Reason Start Time Stop Time Status Last Admin Dose Admin Acetaminophen (Tylenol) 640 mg Q6H PRN GT FEVER 08/10/20 23:15 09/09/20 23:14 Ceftriaxone Sodium 1 gm/ Dextrose 55 ml @ 110 mls/hr Q24H IVPB 08/12/20 13:00 08/19/20 12:59 08/13/20 12:40 Chlorhexidine Gluconate ([place]-Hex 2%) 1 applic DAILY@1999 TOPIC 08/12/20 20:00 11/10/20 19:59 08/12/20 20:27 Dextrose (Dextrose 50%) 25 ml Q30M PRN IV Hypoglycemia 08/10/20 23:15 11/08/20 23:14 Dextrose (Dextrose 50%) 50 ml Q30M PRN IV Hypoglycemia 08/10/20 23:15 11/08/20 23:14 Dextrose/Sodium Chloride 1,000 ml @ 50 mls/hr Q20H IV 08/11/20 11:00 09/10/20 10:59 08/12/20 23:14 Docusate Sodium (Colace) 100 mg DAILY GT 08/11/20 09:00 09/10/20 08:59 08/13/20 09:18 Dopamine HCl/ Dextrose 250 ml @ 17.01 mls/ hr Q24H IV 08/12/20 14:23 08/15/20 14:22 08/13/20 09:19 Insulin Aspart (NovoLOG) Q6HR SUBQ 08/11/20 06:00 11/09/20 06:29 Levetiracetam 750 mg/Sodium Chloride 107.5 ml @ 430 mls/hr Q12H IV 08/11/20 21:00 09/10/20 20:59 08/13/20 09:18 Levothyroxine Sodium (Synthroid) 150 mcg DAILY@0630 GT 08/11/20 06:30 09/10/20 06:29 08/13/20 06:35 Magnesium Hydroxide (Mom) 30 ml QHS PRN GT Constipation 08/11/20 21:00 09/10/20 20:59 Pantoprazole (Protonix) 40 mg EVERY 12 HOURS IVP 08/12/20 09:00 09/11/20 08:59 08/13/20 09:18 Assessment/Plan Assessment/Plan 1. Supratherapeutic Dilantin level. 2. Recurrent seizures. 3. GI bleed 4. Chronic respiratory failure. 5. Bradycardia DISCUSSION: Seen by cardiology, neurology and GI. Continue vent. Continue present medications care. I will follow carefully. May need PPM On dopamine for bradycardia S/p PICC line Continue vent; AC mode ABG adequate Herbie Spaulding Omar Syed MD Aug 13, 2020 12:55
--- NOTE | 2020-08-13 15:58 | NUR ---
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 97.2 HR 54 RR 18 B/P 120/80 AC 14 TV 500 FIO2 40% PEEP 5 IS: DOPAMINE GTT CEFTRIAXONE IV KEPPRA IV IVF D5NS @ 50ML/HR STEP DOWN STATUS
[2020-08-13 16:00] VITALS: BP 149/44
--- NOTE | 2020-08-13 16:00 | NUR ---
[facility] NOTES CLINICALS REVIEWED AND FAXED.
--- NOTE | 2020-08-13 17:02 | Cardiology Progress Note ---
Assessment/Plan Status: not improved Assessment/Plan 1. Acute seizure with h/o seizure disorder 2. Sinus bradycardia - started on dopamine gtt 3. Respiratory failure s/p trach 4. RBBB 5. HFpEF, acute on chronic diastolic HF troponin 0.015 negative BNP 155 Sinus connie to 40's on dopamine gtt max dose. Pt is vent dependent. SBP 108 at time of exam. Subjective ROS Limited/Unobtainable: Yes Objective Last 24 Hour Vital Signs Date Time Temp Pulse Resp B/P (MAP) Pulse Ox O2 Delivery O2 Flow Rate FiO2 08/13/20 15:09 35 08/13/20 12:00 72 08/13/20 12:00 97.2 35 18 120/30 (60) 100 08/13/20 11:56 40 08/13/20 11:55 Mechanical Ventilator 08/13/20 09:19 109/37 08/13/20 08:11 64 08/13/20 08:00 Mechanical Ventilator 08/13/20 08:00 97.2 43 18 109/37 (61) 100 08/13/20 08:00 40 08/13/20 04:00 40 08/13/20 04:00 Mechanical Ventilator 08/13/20 04:00 97.6 40 18 133/39 (70) 100 08/13/20 03:36 35 08/13/20 02:42 42 19 40 08/13/20 00:00 Mechanical Ventilator 08/13/20 00:00 97.3 42 18 132/46 (74) 100 08/12/20 23:31 36 08/12/20 22:33 45 22 40 08/12/20 20:00 40 08/12/20 20:00 Mechanical Ventilator 08/12/20 20:00 97.7 42 18 111/22 (51) 100 08/12/20 19:02 41 08/12/20 18:57 37 18 40 General Appearance: on vent Rhythm: NSR Cardiovascular: bradycardia Respiratory/Chest: decreased breath sounds Neurologic: unresponsiveness, aphasia Intake and Output0 08/12/20 08/13/20 19:00 07:00 Intake Total 670 ml 645.5 ml Balance 670 ml 645.5 ml Intake Free Water 120 ml IV Total 550 ml 645.5 ml Laboratory Tests Test 08/12/20 23:49 08/13/20 03:15 08/13/20 05:11 08/13/20 12:39 POC Whole Blood Glucose 137 MG/DL (74-106) H 123 MG/DL (74-106) H 113 MG/DL (74-106) H White Blood Count 6.2 K/UL (4.8-10.8) Red Blood Count 3.33 M/UL (4.20-5.40) L Hemoglobin 10.8 G/DL (12.0-16.0) L Hematocrit 33.0 % (37.0-47.0) L Mean Corpuscular Volume 99 FL (80-99) Mean Corpuscular Hemoglobin 32.4 PG (27.0-31.0) H Mean Corpuscular Hemoglobin Concent 32.6 G/DL (32.0-36.0) Red Cell Distribution Width 16.9 % (11.6-14.8) H Platelet Count 152 K/UL (150-450) Mean Platelet Volume 9.8 FL (6.5-10.1) Neutrophils (%) (Auto) 62.0 % (45.0-75.0) Lymphocytes (%) (Auto) 24.4 % (20.0-45.0) Monocytes (%) (Auto) 8.6 % (1.0-10.0) Eosinophils (%) (Auto) 2.9 % (0.0-3.0) Basophils (%) (Auto) 2.2 % (0.0-2.0) H Prothrombin Time 12.0 SEC (9.30-11.50) H Prothromb Time International Ratio 1.1 (0.9-1.1) Activated Partial Thromboplast Time 30 SEC (23-33) Sodium Level 139 MMOL/L (136-145) Potassium Level 3.8 MMOL/L (3.5-5.1) Chloride Level 108 MMOL/L (98-107) H Carbon Dioxide Level 24 MMOL/L (21-32) Anion Gap 8 mmol/L (5-15) Blood Urea Nitrogen 11 mg/dL (7-18) Creatinine 0.5 MG/DL (0.55-1.30) L Estimat Glomerular Filtration Rate > 60 mL/min (>60) Glucose Level 112 MG/DL (74-106) H Calcium Level 8.4 MG/DL (8.5-10.1) L Phosphorus Level 2.2 MG/DL (2.5-4.9) L Magnesium Level 2.1 MG/DL (1.8-2.4) Iron Level 45 ug/dL (50-175) L Total Iron Binding Capacity 255 ug/dL (250-450) Percent Iron Saturation 18 % (15-50) Unsaturated Iron Binding 210 ug/dL (112-346) Total Bilirubin 0.3 MG/DL (0.2-1.0) Aspartate Amino Transf (AST/SGOT) 28 U/L (15-37) Alanine Aminotransferase (ALT/SGPT) 30 U/L (12-78) Alkaline Phosphatase 232 U/L (46-116) H Total Protein 7.5 G/DL (6.4-8.2) Albumin 2.7 G/DL (3.4-5.0) L Globulin 4.8 g/dL Albumin/Globulin Ratio 0.6 (1.0-2.7) L Vitamin B12 Level 1511 PG/ML (193-986) H Folate 14.9 NG/ML (8.6-58.9) Microbiology Date/Time Source Procedure Growth Status 08/10/20 16:58 Nasopharynx Coronavirus COVID-19 PCR ([facility]) - Final Complete 08/10/20 16:58 Blood Blood Culture - Preliminary NO GROWTH AFTER 48 HOURS Resulted Objective Bradycardic today down to 30's, started on dopamine. SBP 118 Penny Hatch PA-C Aug 13, 2020 17:02
--- NOTE | 2020-08-13 19:20 | NUR ---
NURSE NOTES: Received report from CESAR Padilla. Pt awake in bed, eyes tracking, has no respiratory distress noted.SB at 38-40bpm monitoring tech. Asymptomatic. On Dopamine at 5 mcg/kg/min via PICC line. vent to trache Shiley 8, AC 18, Tidal volume 550, FiO2 40%, 40%, PEEP 5 saturating at 97-99%. On vital af 1.2 at 40cc/hr ( 70cc/hr goal) via GT infusing well, with residual of 4occ feeding formula, no sediments noted. With left upper arm PICC line intact, patent and asymptomatic. With purewick in place draining erick yellow urine. Needs were attended. Bed wheels are locked and rails are up. Continue to monitor the patient.
--- NOTE | 2020-08-13 19:24 | NUR ---
NURSE HAND-OFF: Important Events on Shift:Patient now on G tube feeding. Patient Status: stable Diet: Vital A.F at 40ML/HR with goal of 70ML/HR Pending Orders: Pending Results/Labs: Pending MD notification: Latest Vital Signs: Temperature 98.1 , Pulse 39 , B/P 149 /44 , Respiratory Rate 18 , O2 SAT 98 , Mechanical Ventilator, O2 Flow Rate 10.0 . Vital Sign Comment: Latest Davis Fall Score: 50 Fall Risk: High Risk Safety Measures: Call light Within Reach, Bed Alarm Zone 2, Side Rails Side Rails x2, Bed position Low and Locked. Fall Precautions: Yellow Socks Yellow Gown Door Sign Patient Fall Education Report given to CESAR Martinez.
[2020-08-13 20:00] VITALS: BP 110/32
[2020-08-13] MEDS: Dyna-Hex 2% Top Sol 2oz TOPIC SCH (20:11)
[2020-08-13] MEDS: D5NS 1,000 ML IV SCH (20:15)
--- NOTE | 2020-08-13 22:54 | Neurology Progress Note ---
Interim History Interim History ROS Limited/Unobtainable: Yes Interim History no further seizures Objective Physical Exam Last Vital Signs Date Time Temp Pulse Resp B/P (MAP) Pulse Ox O2 Delivery O2 Flow Rate FiO2 08/13/20 20:00 97.7 40 18 110/32 (58) 98 08/13/20 20:00 Mechanical Ventilator 08/13/20 20:00 40 08/10/20 21:53 10.0 Laboratory Tests Test 08/12/20 23:49 08/13/20 03:15 08/13/20 05:11 08/13/20 12:39 POC Whole Blood Glucose 137 MG/DL (74-106) H 123 MG/DL (74-106) H 113 MG/DL (74-106) H White Blood Count 6.2 K/UL (4.8-10.8) Red Blood Count 3.33 M/UL (4.20-5.40) L Hemoglobin 10.8 G/DL (12.0-16.0) L Hematocrit 33.0 % (37.0-47.0) L Mean Corpuscular Volume 99 FL (80-99) Mean Corpuscular Hemoglobin 32.4 PG (27.0-31.0) H Mean Corpuscular Hemoglobin Concent 32.6 G/DL (32.0-36.0) Red Cell Distribution Width 16.9 % (11.6-14.8) H Platelet Count 152 K/UL (150-450) Mean Platelet Volume 9.8 FL (6.5-10.1) Neutrophils (%) (Auto) 62.0 % (45.0-75.0) Lymphocytes (%) (Auto) 24.4 % (20.0-45.0) Monocytes (%) (Auto) 8.6 % (1.0-10.0) Eosinophils (%) (Auto) 2.9 % (0.0-3.0) Basophils (%) (Auto) 2.2 % (0.0-2.0) H Prothrombin Time 12.0 SEC (9.30-11.50) H Prothromb Time International Ratio 1.1 (0.9-1.1) Activated Partial Thromboplast Time 30 SEC (23-33) Sodium Level 139 MMOL/L (136-145) Potassium Level 3.8 MMOL/L (3.5-5.1) Chloride Level 108 MMOL/L (98-107) H Carbon Dioxide Level 24 MMOL/L (21-32) Anion Gap 8 mmol/L (5-15) Blood Urea Nitrogen 11 mg/dL (7-18) Creatinine 0.5 MG/DL (0.55-1.30) L Estimat Glomerular Filtration Rate > 60 mL/min (>60) Glucose Level 112 MG/DL (74-106) H Calcium Level 8.4 MG/DL (8.5-10.1) L Phosphorus Level 2.2 MG/DL (2.5-4.9) L Magnesium Level 2.1 MG/DL (1.8-2.4) Iron Level 45 ug/dL (50-175) L Total Iron Binding Capacity 255 ug/dL (250-450) Percent Iron Saturation 18 % (15-50) Unsaturated Iron Binding 210 ug/dL (112-346) Total Bilirubin 0.3 MG/DL (0.2-1.0) Aspartate Amino Transf (AST/SGOT) 28 U/L (15-37) Alanine Aminotransferase (ALT/SGPT) 30 U/L (12-78) Alkaline Phosphatase 232 U/L (46-116) H Total Protein 7.5 G/DL (6.4-8.2) Albumin 2.7 G/DL (3.4-5.0) L Globulin 4.8 g/dL Albumin/Globulin Ratio 0.6 (1.0-2.7) L Vitamin B12 Level 1511 PG/ML (193-986) H Folate 14.9 NG/ML (8.6-58.9) Test 08/13/20 17:08 POC Whole Blood Glucose 109 MG/DL (74-106) H Neurologic Exam Objective somnolent wakes up tracks weak in all 4, quadriparetic bebdbound cc 35 min Impression/Recommendations Problems: (1) Decubitus skin ulcer (2) Abnormal LFTs (3) Bradycardia (4) Elevated Dilantin level (5) Seizures (6) Hypophosphatemia (7) Aspiration pneumonia (8) Bacteremia due to Gram-negative bacteria (9) Septic shock (10) Chronic respiratory failure (11) Vegetative state (12) Acute and chronic respiratory failure (13) Anoxic brain damage syndrome (14) Feeding by G-tube (15) Hypothyroidism (16) Seizure disorder (17) HTN (hypertension) (18) Functional paraplegia (19) Paroxysmal supraventricular tachycardia (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
[2020-08-14] VITALS: BP 128/43
--- NOTE | 2020-08-14 01:30 | NUR ---
NURSE NOTES: Pt asleep in bed. SB at 36-37 bpm. Asymptomatic. Pt arosuable. No respiratory distress noted. Gown and linen were changed. [email or web address] to monitor the patient
[2020-08-14] MEDS: DOPamine 400mg/250ml 250 ML IV SCH (03:58)
[2020-08-14 04:00] VITALS: BP 128/43
[2020-08-14 05:50] LABS: ALANINE AMINOTRANSFERASE 31 U/L (12-78); ALBUMIN 2.4 G/DL (3.4-5.0); ALBUMIN/GLOBULIN RATIO 0.5 (1.0-2.7); ALKALINE PHOSPHATASE 239 U/L (46-116); ANION GAP 6 mmol/L (5-15); ASPARTATE AMINO TRANSFERASE 30 U/L (15-37); BILIRUBIN,TOTAL 0.3 MG/DL (0.2-1.0); BLOOD UREA NITROGEN 13 mg/dL (7-18); CALCIUM 8.2 MG/DL (8.5-10.1); CARBON DIOXIDE 24 MMOL/L (21-32); CHLORIDE 110 MMOL/L (98-107); CREATININE 0.5 MG/DL (0.55-1.30); POTASSIUM 3.3 MMOL/L (3.5-5.1); SODIUM 140 MMOL/L (136-145)
[2020-08-14] MEDS: NovoLOG Insulin Flexpen SUBQ SCH ×4 (06:00→23:54)
[2020-08-14 06:15] LABS: BASOPHILS % (AUTO) 0.6 % (0.0-2.0); HEMATOCRIT 32.4 % (37.0-47.0); LYMPHOCYTES % (AUTO) 14.2 % (20.0-45.0); MEAN CORPUSCULAR VOLUME 97 FL (80-99); MONOCYTES % (AUTO) 6.8 % (1.0-10.0); NEUTROPHILS % (AUTO) 73.4 % (45.0-75.0); PLATELET COUNT 164 K/UL (150-450); RED BLOOD COUNT 3.34 M/UL (4.20-5.40); RED CELL DISTRIBUTION WIDTH 16.4 % (11.6-14.8); WHITE BLOOD COUNT 7.9 K/UL (4.8-10.8)
--- NOTE | 2020-08-14 07:20 | NUR ---
NURSE HAND-OFF REPORT: Important Events on Shift: none Patient Status: stable on SB Diet:vital af 1.2 at 50cc/hr Pending Orders: n Pending Results/Labs:n Pending notification:n Latest Vital Signs: Temperature 97.6 , Pulse 40 , B/P 133 /39 , Respiratory Rate 18 , O2 SAT 100 , Mechanical Ventilator, O2 Flow Rate 10.0 . Vital Sign Comment: n EKG Rhythm: Sinus Bradycardia Rhythm change?: N MD Notified?: Y -Dr Samira BROWN Response: Due to Dilantin/ consult Latest Davis Fall Score: 50 Fall Risk: High Risk Safety Measures: Call light Within Reach, Bed Alarm Zone 2, Side Rails Side Rails x2, Bed position Low and Locked. Fall Precautions: Yellow Socks Yellow Gown Door Sign Patient Fall Education Report given to CESAR Miles. Addendum: 08/14/20 at 0732 by NAPOLEON Sanchez RN NURSE NOTES: Endorsed to AM nurse to ff up with DARNELL Jackson regarding patients SB w/ 2nd deg avb, type 1 Rhythmn, asymptomatic. AM nurse noted and will ff up.
[2020-08-14 08:00] VITALS: BP 123/30
[2020-08-14] MEDS ORDERED: Tubing IV Secondary IV ONE (08:37)
[2020-08-14] MEDS ORDERED: D5NS 1000ml IV ONE (08:37)
[2020-08-14] MEDS: Pantoprazole Inj IVP SCH ×2 (09:02→21:20)
[2020-08-14] MEDS: Docusate 100mg/10ml Liq GT SCH (09:02)
[2020-08-14] MEDS: levETIRAcetam 750 MG in NS 100 ML IV SCH ×2 (09:05→21:20)
--- NOTE | 2020-08-14 09:30 | NUR ---
RD ASSESSMENT & RECOMMENDATIONS SEE CARE ACTIVITY FOR COMPLETE ASSESSMENT DAILY ESTIMATED NEEDS: Needs based on Obese, critical care, wound 63.3kg abw 22-28 kcals/kg 5819-4711 total kcals 1.25-2 g protein/kg 79-127 g total protein 4737-9224 mL/kg 8743-8804 total fluid mLs NUTRITION DIAGNOSIS: Swallowing difficulty R/T respiratory status as evidenced by pt trach-vent dep, GT dep. (CURRENT TF:VITAL 1.2 @ 70ml/hr x 22 hrs) ENTERAL NUTRITION RECOMMENDATIONS: Glucerna 1.2 @ 70ml/hr x 20 hrs to provide 1400ml, 1680kcal, 84g prot, 1127ml free water - Increase run time to 20 hrs to better meet est pro needs - Flush per MD. HOB over 30 degrees - Monitor dilantin for change from IV to GT. ----- Currently on Vital 1.2 per MD orders. Rec to lower run time to 20hrs, will meet 100% est needs and provide 1400ml, 1680kcal, 105g pro, 1135ml free H2O ADDITIONAL RECOMMENDATIONS: * Calibrated bed scale weights for accurate CBW * Wound healing: add PHOEBE BID via GT * Monitor lytes daily w/ TF, replete as needed * Check HgA1C, need for carb control formula-> on niss * Monitor lytes daily w/ TF, replete as needed . .
--- NOTE | 2020-08-14 10:35 | General Progress Note ---
Subjective ROS Limited/Unobtainable: No Allergies: Coded Allergies: PEANUT (Verified Allergy, Unknown, 09/22/16) Objective Last 24 Hour Vital Signs Date Time Temp Pulse Resp B/P (MAP) Pulse Ox O2 Delivery O2 Flow Rate FiO2 08/14/20 08:02 40 08/14/20 08:00 Mechanical Ventilator 08/14/20 08:00 Mechanical Ventilator 08/14/20 08:00 97.7 34 18 123/30 (61) 98 08/14/20 08:00 30 08/14/20 04:00 40 08/14/20 04:00 97.6 64 18 128/43 (71) 98 08/14/20 04:00 Mechanical Ventilator 08/14/20 03:58 101/30 08/14/20 03:52 87 08/14/20 03:32 49 20 35 08/14/20 00:00 Mechanical Ventilator 08/14/20 00:00 97.3 64 18 128/43 (71) 98 08/13/20 23:39 41 08/13/20 23:11 49 22 35 08/13/20 20:00 97.7 40 18 110/32 (58) 98 08/13/20 20:00 Mechanical Ventilator 08/13/20 20:00 40 08/13/20 19:34 36 08/13/20 19:11 56 24 35 08/13/20 16:00 Mechanical Ventilator 08/13/20 16:00 98.1 39 18 149/44 (79) 98 08/13/20 15:28 46 08/13/20 15:10 68 20 35 08/13/20 15:09 35 08/13/20 12:00 72 08/13/20 12:00 97.2 35 18 120/30 (60) 100 08/13/20 11:56 40 08/13/20 11:55 Mechanical Ventilator 08/13/20 10:58 42 18 35 Intake and Output 08/13/20 08/14/20 19:00 07:00 Intake Total 1130 ml 1115.5 ml Balance 1130 ml 1115.5 ml Intake Free Water 180 ml 30 ml IV Total 550 ml 645.5 ml Tube Feeding 400 ml 440 ml # Voids 2 Laboratory Tests 08/13/20 12:39: POC Whole Blood Glucose 113H 08/13/20 17:08: POC Whole Blood Glucose 109H 08/13/20 23:20: POC Whole Blood Glucose 111H 08/14/20 03:25: White Blood Count 7.9, Red Blood Count 3.34L, Hemoglobin 11.0L, Hematocrit 32.4L , Mean Corpuscular Volume 97, Mean Corpuscular Hemoglobin 33.0H, Mean Corpuscular Hemoglobin Concent 34.0, Red Cell Distribution Width 16.4H, Platelet Count 164, Mean Platelet Volume 10.2H, Neutrophils (%) (Auto) 73.4, Lymphocytes (%) (Auto) 14.2L, Monocytes (%) (Auto) 6.8, Eosinophils (%) (Auto) 5.0H, Basophils (%) (Auto) 0.6, Sodium Level 140, Potassium Level 3.3L, Chloride Level 110H, Carbon Dioxide Level 24, Anion Gap 6, Blood Urea Nitrogen 13, Creatinine 0.5L, Estimat Glomerular Filtration Rate > 60, Glucose Level 127H, Calcium Level 8.2L, Total Bilirubin 0.3, Aspartate Amino Transf (AST/SGOT) 30, Alanine Aminotransferase (ALT/SGPT) 31, Alkaline Phosphatase 239H, Total Protein 7.0, Albumin 2.4L, Globulin 4.6, Albumin/Globulin Ratio 0.5L 08/14/20 04:00: Stool Occult Blood [Pending] 08/14/20 06:09: POC Whole Blood Glucose 95 Height (Feet): 6 Height (Inches): 0.00 Weight (Pounds): 200 General Appearance: no apparent distress EENT: normal ENT inspection Neck: supple Cardiovascular: normal rate Respiratory/Chest: decreased breath sounds Abdomen: normal bowel sounds, non tender, soft Extremities: non-tender Assessment/Plan Status: not improved Assessment/Plan: 1. History of asthma. 2. History of COPD. 3. History of CVA. 4. History of dysphagia with G-tube. 5. Respiratory failure with chronic trach. 6. History of seizure disorder. 7. Hypertension. 8. Diabetes. 9. Diverticulosis. 10. History of encephalopathy. neg NGT lavage stable H&H GTF cont ppi fu stool ob labs in Wilmer Kiser MD Aug 14, 2020 10:35
[2020-08-14 12:00] VITALS: BP 115/34
[2020-08-14] MEDS: cefTRIAXone 1 GM in D5W 55 ML IVPB SCH (12:42)
--- NOTE | 2020-08-14 12:58 | NUR ---
NURSE NOTES:contacted Dr Hogan to notify him that patient potassium level is 3.3 awaiting response.
--- NOTE | 2020-08-14 13:09 | Cardiology Progress Note ---
Assessment/Plan Status Narrative EKG overnight shows 2nd degree AV block Mobitz II, no change in pt's clinical presentation Assessment/Plan 1. Heart block 2. Sinus bradycardia - started on dopamine gtt 3. Respiratory failure s/p trach 4. RBBB 5. HFpEF, acute on chronic diastolic HF troponin 0.015 negative BNP 155 6.Acute seizure with h/o seizure disorder Heart block, 2nd degree AV block Mobitz II. Sinus connie to 40's on dopamine gtt max dose. Pt is vent dependent. SBP 100's at time of exam. Discussed with Dr. Hogan indication for PPM implantation vs medical therapy, which he will discuss with pt's daughter. Further recs to follow. Subjective ROS Limited/Unobtainable: Yes Objective Last 24 Hour Vital Signs Date Time Temp Pulse Resp B/P (MAP) Pulse Ox O2 Delivery O2 Flow Rate FiO2 08/14/20 12:00 Mechanical Ventilator 08/14/20 12:00 35 08/14/20 12:00 97.2 32 18 115/34 (61) 99 08/14/20 12:00 38 08/14/20 11:15 35 21 35 08/14/20 08:02 40 08/14/20 08:00 Mechanical Ventilator 08/14/20 08:00 Mechanical Ventilator 08/14/20 08:00 97.7 34 18 123/30 (61) 98 08/14/20 08:00 30 08/14/20 07:25 53 20 35 08/14/20 04:00 40 08/14/20 04:00 97.6 64 18 128/43 (71) 98 08/14/20 04:00 Mechanical Ventilator 08/14/20 03:58 101/30 08/14/20 03:52 87 08/14/20 03:32 49 20 35 08/14/20 00:00 Mechanical Ventilator 08/14/20 00:00 97.3 64 18 128/43 (71) 98 08/13/20 23:39 41 08/13/20 23:11 49 22 35 08/13/20 20:00 97.7 40 18 110/32 (58) 98 08/13/20 20:00 Mechanical Ventilator 08/13/20 20:00 40 08/13/20 19:34 36 08/13/20 19:11 56 24 35 08/13/20 16:00 Mechanical Ventilator 08/13/20 16:00 98.1 39 18 149/44 (79) 98 08/13/20 15:28 46 08/13/20 15:10 68 20 35 08/13/20 15:09 35 General Appearance: no apparent distress, cachetic, on vent Rhythm: NSR Cardiovascular: bradycardia Respiratory/Chest: decreased breath sounds Neurologic: unresponsiveness, aphasia Intake and Output 08/13/20 08/14/20 19:00 07:00 Intake Total 1130 ml 1115.5 ml Balance 1130 ml 1115.5 ml Intake Free Water 180 ml 30 ml IV Total 550 ml 645.5 ml Tube Feeding 400 ml 440 ml # Voids 2 Laboratory Tests Test 08/13/20 17:08 08/13/20 23:20 08/14/20 03:25 08/14/20 04:00 POC Whole Blood Glucose 109 MG/DL (74-106) H 111 MG/DL (74-106) H White Blood Count 7.9 K/UL (4.8-10.8) Red Blood Count 3.34 M/UL (4.20-5.40) L Hemoglobin 11.0 G/DL (12.0-16.0) L Hematocrit 32.4 % (37.0-47.0) L Mean Corpuscular Volume 97 FL (80-99) Mean Corpuscular Hemoglobin 33.0 PG (27.0-31.0) H Mean Corpuscular Hemoglobin Concent 34.0 G/DL (32.0-36.0) Red Cell Distribution Width 16.4 % (11.6-14.8) H Platelet Count 164 K/UL (150-450) Mean Platelet Volume 10.2 FL (6.5-10.1) H Neutrophils (%) (Auto) 73.4 % (45.0-75.0) Lymphocytes (%) (Auto) 14.2 % (20.0-45.0) L Monocytes (%) (Auto) 6.8 % (1.0-10.0) Eosinophils (%) (Auto) 5.0 % (0.0-3.0) H Basophils (%) (Auto) 0.6 % (0.0-2.0) Sodium Level 140 MMOL/L (136-145) Potassium Level 3.3 MMOL/L (3.5-5.1) L Chloride Level 110 MMOL/L (98-107) H Carbon Dioxide Level 24 MMOL/L (21-32) Anion Gap 6 mmol/L (5-15) Blood Urea Nitrogen 13 mg/dL (7-18) Creatinine 0.5 MG/DL (0.55-1.30) L Estimat Glomerular Filtration Rate > 60 mL/min (>60) Glucose Level 127 MG/DL (74-106) H Calcium Level 8.2 MG/DL (8.5-10.1) L Total Bilirubin 0.3 MG/DL (0.2-1.0) Aspartate Amino Transf (AST/SGOT) 30 U/L (15-37) Alanine Aminotransferase (ALT/SGPT) 31 U/L (12-78) Alkaline Phosphatase 239 U/L (46-116) H Total Protein 7.0 G/DL (6.4-8.2) Albumin 2.4 G/DL (3.4-5.0) L Globulin 4.6 g/dL Albumin/Globulin Ratio 0.5 (1.0-2.7) L Stool Occult Blood Negative (NEGATIVE) Test 08/14/20 06:09 POC Whole Blood Glucose 95 MG/DL (74-106) Objective Bradycardic today down to 30's, started on dopamine. SBP 118 Penny Hatch PA-C Aug 14, 2020 13:08
--- NOTE | 2020-08-14 13:26 | NUR ---
CASE MANAGEMENT:REVIEW 08/14/20 SI: RECURRENT SEIZURES. BRADYCARDIA SUPRA-THERAPEUTIC DILANTIN LEVEL. TRACH/VENT 97.2 32 18 115/34 99% ON VENT SUPPORT W/35% FIO2 K-3.3 IS: DOPAMINE GTT 5MCG/KG/MIN IV ROCEPHIN Q24 IV KEPPRA Q12 IV PROTONIX Q12 IVF@50/HR : STEP DOWN UNIT DCP; FROM [facility] PLAN: START INOTROPE FOR BRADYCARDIA PICC LINE PLACEMENT
[2020-08-14 16:00] VITALS: BP 139/36
--- NOTE | 2020-08-14 17:58 | Pulmonology Progress Note ---
Subjective ROS Limited/Unobtainable: Yes Interval Events: Remains bradycardic; not hypotensive Constitutional: Reports: no symptoms HEENT: Repors: no symptoms Respiratory: Reports: no symptoms Cardiovascular: Reports: no symptoms Gastrointestinal/Abdominal: Reports: no symptoms Allergies: Coded Allergies: PEANUT (Verified Allergy, Unknown, 09/22/16) Objective Last 24 Hour Vital Signs Date Time Temp Pulse Resp B/P (MAP) Pulse Ox O2 Delivery O2 Flow Rate FiO2 08/14/20 16:00 35 08/14/20 16:00 Mechanical Ventilator 08/14/20 16:00 34 08/14/20 16:00 97.1 33 18 139/36 (70) 100 08/14/20 15:15 42 24 35 08/14/20 12:00 Mechanical Ventilator 08/14/20 12:00 35 08/14/20 12:00 97.2 32 18 115/34 (61) 99 08/14/20 12:00 38 08/14/20 11:15 35 21 35 08/14/20 08:02 40 08/14/20 08:00 Mechanical Ventilator 08/14/20 08:00 Mechanical Ventilator 08/14/20 08:00 97.7 34 18 123/30 (61) 98 08/14/20 08:00 30 08/14/20 07:25 53 20 35 08/14/20 04:00 40 08/14/20 04:00 97.6 64 18 128/43 (71) 98 08/14/20 04:00 Mechanical Ventilator 08/14/20 03:58 101/30 08/14/20 03:52 87 08/14/20 03:32 49 20 35 08/14/20 00:00 Mechanical Ventilator 08/14/20 00:00 97.3 64 18 128/43 (71) 98 08/13/20 23:39 41 08/13/20 23:11 49 22 35 08/13/20 20:00 97.7 40 18 110/32 (58) 98 08/13/20 20:00 Mechanical Ventilator 08/13/20 20:00 40 08/13/20 19:34 36 08/13/20 19:11 56 24 35 Intake and Output 08/13/20 08/14/20 19:00 07:00 Intake Total 1130 ml 1115.5 ml Balance 1130 ml 1115.5 ml Intake Free Water 180 ml 30 ml IV Total 550 ml 645.5 ml Tube Feeding 400 ml 440 ml # Voids 2 General Appearance: no acute distress HEENT: normocephalic Respiratory: chest wall non-tender, lungs clear Cardiovascular: normal peripheral pulses Abdomen: normal bowel sounds Extremities: no cyanosis Laboratory Tests 08/13/20 23:20: POC Whole Blood Glucose 111H 08/14/20 03:25: White Blood Count 7.9, Red Blood Count 3.34L, Hemoglobin 11.0L, Hematocrit 32.4L , Mean Corpuscular Volume 97, Mean Corpuscular Hemoglobin 33.0H, Mean Corpuscular Hemoglobin Concent 34.0, Red Cell Distribution Width 16.4H, Platelet Count 164, Mean Platelet Volume 10.2H, Neutrophils (%) (Auto) 73.4, Lymphocytes (%) (Auto) 14.2L, Monocytes (%) (Auto) 6.8, Eosinophils (%) (Auto) 5.0H, Basophils (%) (Auto) 0.6, Sodium Level 140, Potassium Level 3.3L, Chloride Level 110H, Carbon Dioxide Level 24, Anion Gap 6, Blood Urea Nitrogen 13, Creatinine 0.5L, Estimat Glomerular Filtration Rate > 60, Glucose Level 127H, Calcium Level 8.2L, Total Bilirubin 0.3, Aspartate Amino Transf (AST/SGOT) 30, Alanine Aminotransferase (ALT/SGPT) 31, Alkaline Phosphatase 239H, Total Protein 7.0, Albumin 2.4L, Globulin 4.6, Albumin/Globulin Ratio 0.5L 08/14/20 04:00: Stool Occult Blood Negative 08/14/20 06:09: POC Whole Blood Glucose 95 Current Medications Medications (Trade) Dose Ordered Sig/Boubacar Route PRN Reason Start Time Stop Time Status Last Admin Dose Admin Acetaminophen (Tylenol) 640 mg Q6H PRN GT FEVER 08/10/20 23:15 09/09/20 23:14 Ceftriaxone Sodium 1 gm/ Dextrose 55 ml @ 110 mls/hr Q24H IVPB 08/12/20 13:00 08/19/20 12:59 08/14/20 12:42 Chlorhexidine Gluconate ([place]-Hex 2%) 1 applic DAILY@1999 TOPIC 08/12/20 20:00 11/10/20 19:59 08/13/20 20:11 Dextrose (Dextrose 50%) 25 ml Q30M PRN IV Hypoglycemia 08/10/20 23:15 11/08/20 23:14 Dextrose (Dextrose 50%) 50 ml Q30M PRN IV Hypoglycemia 08/10/20 23:15 11/08/20 23:14 Dextrose/Sodium Chloride 1,000 ml @ 50 mls/hr Q20H IV 08/11/20 11:00 09/10/20 10:59 08/13/20 20:15 Docusate Sodium (Colace) 100 mg DAILY GT 08/11/20 09:00 09/10/20 08:59 08/14/20 09:02 Dopamine HCl/ Dextrose 250 ml @ 17.01 mls/ hr Q24H IV 08/12/20 14:23 08/15/20 14:22 08/14/20 03:58 Insulin Aspart (NovoLOG) Q6HR SUBQ 08/11/20 06:00 11/09/20 06:29 Levetiracetam 750 mg/Sodium Chloride 107.5 ml @ 430 mls/hr Q12H IV 08/11/20 21:00 09/10/20 20:59 08/14/20 09:05 Levothyroxine Sodium (Synthroid) 150 mcg DAILY@0630 GT 08/11/20 06:30 09/10/20 06:29 08/14/20 06:32 Magnesium Hydroxide (Mom) 30 ml QHS PRN GT Constipation 08/11/20 21:00 09/10/20 20:59 Pantoprazole (Protonix) 40 mg EVERY 12 HOURS IVP 08/12/20 09:00 09/11/20 08:59 08/14/20 09:02 Assessment/Plan Assessment/Plan 1. Supratherapeutic Dilantin level. 2. Recurrent seizures. 3. GI bleed 4. Chronic respiratory failure. 5. Bradycardia DISCUSSION: Seen by cardiology, neurology and GI. Continue vent. Continue present medications care. I will follow carefully. May need PPM Discussed with pts daughter Laura She agrees with my assessment that a pacer woud not be appropriate give her current prognosis On dopamine for bradycardia; will dc S/p PICC line Continue vent; AC mode ABG adequate Herbie Spaulding Omar Syed MD Aug 14, 2020 17:58
[2020-08-14] MEDS: D5NS 1,000 ML IV SCH (19:05)
--- NOTE | 2020-08-14 19:51 | NUR ---
NURSE HAND-OFF REPORT: Important Events on Shift: Patient Status: stable Diet: Ava. A.F @60Ml/HR continuous hold for synthroid Pending Orders: Pending Results/Labs: Pending MD notification: Latest Vital Signs: Temperature 97.1 , Pulse 42 , B/P 139 /36 , Respiratory Rate 20 , O2 SAT 100 , Mechanical Ventilator, O2 Flow Rate 10.0 . Vital Sign Comment: EKG Rhythm: SR w/ BBB W/ 2 deg. AVB Type 1 Rhythm change?: N MD Notified?: MD Response: Latest Davis Fall Score: 50 Fall Risk: High Risk Safety Measures: Call light Within Reach, Bed Alarm Zone 2, Side Rails Side Rails x2, Bed position Low and Locked. Fall Precautions: Yellow Socks Yellow Gown Door Sign Patient Fall Education Report given to CESAR Segundo.
--- NOTE | 2020-08-14 19:52 | NUR ---
NURSE NOTES: Report received from CESAR Padilla. Pt alert, awake, responsive to verbal and tactile stimuli. 5-lead EKG shows SB at 38 BPM. BP stable, afebrile. Seizure precautions initiated. Saturating 100% on settings of AC 18, Vt 550, 35% fio2 Peep 5. Pt g-tube running Vital AF at 70mL with 0 residual. ABEL PICC patent and intact running D5 1/2 NS at 50 mL. Purewick noted. Bed kept in lowest and locked position. Bed alarm on. Side rails up x3. Will continue monitoring.
[2020-08-14 20:00] VITALS: BP 157/59
[2020-08-14] MEDS: Dyna-Hex 2% Top Sol 2oz TOPIC SCH (21:20)
--- NOTE | 2020-08-14 21:45 | Neurology Progress Note ---
Interim History Interim History ROS Limited/Unobtainable: Yes Interim History seen early am no further seizures Objective Physical Exam Last Vital Signs Date Time Temp Pulse Resp B/P (MAP) Pulse Ox O2 Delivery O2 Flow Rate FiO2 08/14/20 20:00 35 08/14/20 20:00 Mechanical Ventilator 08/14/20 20:00 73 08/14/20 18:54 20 08/14/20 16:00 97.1 139/36 (70) 100 08/10/20 21:53 10.0 Laboratory Tests Test 08/13/20 23:20 08/14/20 03:25 08/14/20 04:00 08/14/20 06:09 POC Whole Blood Glucose 111 MG/DL (74-106) H 95 MG/DL (74-106) White Blood Count 7.9 K/UL (4.8-10.8) Red Blood Count 3.34 M/UL (4.20-5.40) L Hemoglobin 11.0 G/DL (12.0-16.0) L Hematocrit 32.4 % (37.0-47.0) L Mean Corpuscular Volume 97 FL (80-99) Mean Corpuscular Hemoglobin 33.0 PG (27.0-31.0) H Mean Corpuscular Hemoglobin Concent 34.0 G/DL (32.0-36.0) Red Cell Distribution Width 16.4 % (11.6-14.8) H Platelet Count 164 K/UL (150-450) Mean Platelet Volume 10.2 FL (6.5-10.1) H Neutrophils (%) (Auto) 73.4 % (45.0-75.0) Lymphocytes (%) (Auto) 14.2 % (20.0-45.0) L Monocytes (%) (Auto) 6.8 % (1.0-10.0) Eosinophils (%) (Auto) 5.0 % (0.0-3.0) H Basophils (%) (Auto) 0.6 % (0.0-2.0) Sodium Level 140 MMOL/L (136-145) Potassium Level 3.3 MMOL/L (3.5-5.1) L Chloride Level 110 MMOL/L (98-107) H Carbon Dioxide Level 24 MMOL/L (21-32) Anion Gap 6 mmol/L (5-15) Blood Urea Nitrogen 13 mg/dL (7-18) Creatinine 0.5 MG/DL (0.55-1.30) L Estimat Glomerular Filtration Rate > 60 mL/min (>60) Glucose Level 127 MG/DL (74-106) H Calcium Level 8.2 MG/DL (8.5-10.1) L Total Bilirubin 0.3 MG/DL (0.2-1.0) Aspartate Amino Transf (AST/SGOT) 30 U/L (15-37) Alanine Aminotransferase (ALT/SGPT) 31 U/L (12-78) Alkaline Phosphatase 239 U/L (46-116) H Total Protein 7.0 G/DL (6.4-8.2) Albumin 2.4 G/DL (3.4-5.0) L Globulin 4.6 g/dL Albumin/Globulin Ratio 0.5 (1.0-2.7) L Stool Occult Blood Negative (NEGATIVE) Neurologic Exam Objective somnolent wakes up tracks weak in all 4, quadriparetic bebdbound cc 35 min Impression/Recommendations Problems: (1) Decubitus skin ulcer (2) Abnormal LFTs (3) Bradycardia (4) Elevated Dilantin level (5) Seizures (6) Hypophosphatemia (7) Aspiration pneumonia (8) Bacteremia due to Gram-negative bacteria (9) Septic shock (10) Chronic respiratory failure (11) Vegetative state (12) Acute and chronic respiratory failure (13) Anoxic brain damage syndrome (14) Feeding by G-tube (15) Hypothyroidism (16) Seizure disorder (17) HTN (hypertension) (18) Functional paraplegia (19) Paroxysmal supraventricular tachycardia (20) AV block, 2nd degree (21) Bowel obstruction (22) Anemia (23) Malfunction of gastrostomy tube (24) G-tube site cellulitis (25) LGI bleed Status: not improved Diagnostic Impression status epilepticus epilepsy, not controlled on Dilantin sepsis ro covid start keppra 750 mg bid dc dilantin covid supportive care eeg Johnny Dudley MD Aug 14, 2020 21:45
--- NOTE | 2020-08-14 23:00 | NUR ---
NURSE NOTES: Pt abdomen appears distended and copious amounts of feeding leaking from g-tube site despite 0 residual. Held feeding. Will continue to monitor.
[2020-08-15] VITALS: BP 166/50
[2020-08-15 04:00] VITALS: BP 170/54
--- NOTE | 2020-08-15 04:02 | NUR ---
NURSE NOTES: Bed bath and oral care provided. 40 mL residual noted. No BM. BP appears to be trending up to 170 systolic. Will leave message for .
[2020-08-15] MEDS: NovoLOG Insulin Flexpen SUBQ SCH ×3 (05:27→18:00)
--- NOTE | 2020-08-15 05:56 | Pulmonology Progress Note ---
Subjective ROS Limited/Unobtainable: Yes Interval Events: Remains bradycardic; not hypotensive Constitutional: Reports: no symptoms HEENT: Repors: no symptoms Respiratory: Reports: no symptoms Cardiovascular: Reports: no symptoms Gastrointestinal/Abdominal: Reports: no symptoms Allergies: Coded Allergies: PEANUT (Verified Allergy, Unknown, 09/22/16) Objective Last 24 Hour Vital Signs Date Time Temp Pulse Resp B/P (MAP) Pulse Ox O2 Delivery O2 Flow Rate FiO2 08/15/20 04:00 97.9 64 16 170/54 (92) 98 08/15/20 04:00 Mechanical Ventilator 08/15/20 04:00 86 08/15/20 04:00 35 08/15/20 03:49 48 20 35 08/15/20 00:00 98.1 64 18 166/50 (88) 98 08/15/20 00:00 68 08/15/20 00:00 Mechanical Ventilator 08/14/20 23:52 51 19 35 08/14/20 20:00 97.5 68 24 157/59 (91) 100 08/14/20 20:00 35 08/14/20 20:00 Mechanical Ventilator 08/14/20 20:00 73 08/14/20 18:54 42 20 35 08/14/20 16:00 35 08/14/20 16:00 Mechanical Ventilator 08/14/20 16:00 34 08/14/20 16:00 97.1 33 18 139/36 (70) 100 08/14/20 15:15 42 24 35 08/14/20 12:00 Mechanical Ventilator 08/14/20 12:00 35 08/14/20 12:00 97.2 32 18 115/34 (61) 99 08/14/20 12:00 38 08/14/20 11:15 35 21 35 08/14/20 08:02 40 08/14/20 08:00 Mechanical Ventilator 08/14/20 08:00 Mechanical Ventilator 08/14/20 08:00 97.7 34 18 123/30 (61) 98 08/14/20 08:00 30 08/14/20 07:25 53 20 35 Intake and Output 08/14/20 08/15/20 19:00 07:00 Intake Total 860 ml 1420 ml Balance 860 ml 1420 ml Intake Free Water 160 ml 40 ml IV Total 50 ml 980 ml Tube Feeding 650 ml 400 ml # Voids 2 General Appearance: no acute distress HEENT: normocephalic Respiratory: chest wall non-tender, lungs clear Cardiovascular: normal peripheral pulses Abdomen: normal bowel sounds Extremities: no cyanosis Laboratory Tests 08/14/20 06:09: POC Whole Blood Glucose 95 08/14/20 23:50: POC Whole Blood Glucose 76 08/15/20 05:07: POC Whole Blood Glucose 73L Current Medications Medications (Trade) Dose Ordered Sig/Boubacar Route PRN Reason Start Time Stop Time Status Last Admin Dose Admin Acetaminophen (Tylenol) 640 mg Q6H PRN GT FEVER 08/10/20 23:15 09/09/20 23:14 Ceftriaxone Sodium 1 gm/ Dextrose 55 ml @ 110 mls/hr Q24H IVPB 08/12/20 13:00 08/19/20 12:59 08/14/20 12:42 Chlorhexidine Gluconate ([place]-Hex 2%) 1 applic DAILY@2000 TOPIC 08/12/20 20:00 11/10/20 19:59 08/14/20 21:20 Dextrose (Dextrose 50%) 25 ml Q30M PRN IV Hypoglycemia 08/10/20 23:15 11/08/20 23:14 Dextrose (Dextrose 50%) 50 ml Q30M PRN IV Hypoglycemia 08/10/20 23:15 11/08/20 23:14 Dextrose/Sodium Chloride 1,000 ml @ 50 mls/hr Q20H IV 08/11/20 11:00 09/10/20 10:59 08/14/20 19:05 Docusate Sodium (Colace) 100 mg DAILY GT 08/11/20 09:00 09/10/20 08:59 08/14/20 09:02 Insulin Aspart (NovoLOG) Q6HR SUBQ 08/11/20 06:00 11/09/20 06:29 Levetiracetam 750 mg/Sodium Chloride 107.5 ml @ 430 mls/hr Q12H IV 08/11/20 21:00 09/10/20 20:59 08/14/20 21:20 Levothyroxine Sodium (Synthroid) 150 mcg DAILY@0630 GT 08/11/20 06:30 09/10/20 06:29 08/15/20 05:27 Magnesium Hydroxide (Mom) 30 ml QHS PRN GT Constipation 08/11/20 21:00 09/10/20 20:59 08/15/20 05:29 Pantoprazole (Protonix) 40 mg EVERY 12 HOURS IVP 08/12/20 09:00 09/11/20 08:59 08/14/20 21:20 Assessment/Plan Assessment/Plan 1. Supratherapeutic Dilantin level. 2. Recurrent seizures. 3. GI bleed 4. Chronic respiratory failure. 5. Bradycardia DISCUSSION: Seen by cardiology, neurology and GI. Continue vent. Continue present medications care. I will follow carefully. May need PPM Discussed with pts daughter Laura She agrees with my assessment that a pacer woud not be appropriate give her current prognosis On dopamine for bradycardia; will dc S/p PICC line Begin dc planning back to SNF Continue vent; AC mode ABG adequate Herbie Spaulding Omar Syed MD Aug 15, 2020 05:56
--- NOTE | 2020-08-15 06:20 | NUR ---
NURSE NOTES: Current BP 158/68 HR 59 BPM. No distress noted. Left messaged for Dr. Hogan in regards to vent settings order, and increasing trend in blood pressure. Also left message for Dr. Cardenas in regards to distended abdomen and GI site leaking. Awaiting further orders.
--- NOTE | 2020-08-15 06:50 | NUR ---
NURSE HAND-OFF REPORT: Important Events on Shift: Ab distention/leaking g-tube site/ BP in the 170 Systolic Patient Status: Stable Diet: Vital AF Pending Orders: Pending Results/Labs: Pending MD notification: Tirmizi (Resp Orders, SBP) Latest Vital Signs: Temperature 97.9 , Pulse 64 , B/P 170 /54 , Respiratory Rate 16 , O2 SAT 98 , Mechanical Ventilator, O2 Flow Rate 10.0 . Vital Sign Comment: EKG Rhythm: SR w/ BBB W/ 1 deg. AVB Type 1 Rhythm change?: N MD Notified?: ANN Majano MD Response: Message left await call Latest Davis Fall Score: 50 Fall Risk: High Risk Safety Measures: Call light Within Reach, Bed Alarm Zone 1, Side Rails Side Rails x3, Bed position Low and Locked. Fall Precautions: Yellow Socks Yellow Gown Door Sign Patient Fall Education Report given to CESAR Beaver.
--- NOTE | 2020-08-15 07:17 | NUR ---
DISCHARGE PLANNING PATIENT IS FROM [facility] PLAN IS FOR HIM TO RETURN TO [facility] ONCE READY FOR DISCHARGE
--- NOTE | 2020-08-15 07:30 | NUR ---
RECEIVED PT .ON VENT, NO RESP DISTRESS ,FEEDING ON HOLD
[2020-08-15 08:00] VITALS: BP 158/58
[2020-08-15] MEDS: Pantoprazole Inj IVP SCH ×2 (09:12→20:08)
[2020-08-15] MEDS: Docusate 100mg/10ml Liq GT SCH (09:12)
[2020-08-15] MEDS: levETIRAcetam 750 MG in NS 100 ML IV SCH ×2 (09:12→20:09)
--- NOTE | 2020-08-15 09:14 | General Progress Note ---
Subjective ROS Limited/Unobtainable: No Allergies: Coded Allergies: PEANUT (Verified Allergy, Unknown, 09/22/16) Objective Last 24 Hour Vital Signs Date Time Temp Pulse Resp B/P (MAP) Pulse Ox O2 Delivery O2 Flow Rate FiO2 08/15/20 07:23 45 19 35 08/15/20 04:00 97.9 64 16 170/54 (92) 98 08/15/20 04:00 Mechanical Ventilator 08/15/20 04:00 86 08/15/20 04:00 35 08/15/20 03:49 48 20 35 08/15/20 00:00 98.1 64 18 166/50 (88) 98 08/15/20 00:00 68 08/15/20 00:00 Mechanical Ventilator 08/14/20 23:52 51 19 35 08/14/20 20:00 97.5 68 24 157/59 (91) 100 08/14/20 20:00 35 08/14/20 20:00 Mechanical Ventilator 08/14/20 20:00 73 08/14/20 18:54 42 20 35 08/14/20 16:00 35 08/14/20 16:00 Mechanical Ventilator 08/14/20 16:00 34 08/14/20 16:00 97.1 33 18 139/36 (70) 100 08/14/20 15:15 42 24 35 08/14/20 12:00 Mechanical Ventilator 08/14/20 12:00 35 08/14/20 12:00 97.2 32 18 115/34 (61) 99 08/14/20 12:00 38 08/14/20 11:15 35 21 35 Intake and Output 08/14/20 08/15/20 19:00 07:00 Intake Total 860 ml 1470 ml Balance 860 ml 1470 ml Intake Free Water 160 ml 40 ml IV Total 50 ml 1030 ml Tube Feeding 650 ml 400 ml # Voids 2 Laboratory Tests 08/14/20 23:50: POC Whole Blood Glucose 76 08/15/20 05:07: POC Whole Blood Glucose 73L Height (Feet): 6 Height (Inches): 0.00 Weight (Pounds): 200 General Appearance: lethargic EENT: PERRL/EOMI Neck: supple Cardiovascular: normal rate Respiratory/Chest: decreased breath sounds Abdomen: normal bowel sounds, non tender, soft Extremities: non-tender Assessment/Plan Status: not improved Assessment/Plan: 1. History of asthma. 2. History of COPD. 3. History of CVA. 4. History of dysphagia with G-tube. 5. Respiratory failure with chronic trach. 6. History of seizure disorder. 7. Hypertension. 8. Diabetes. 9. Diverticulosis. 10. History of encephalopathy. e stable H&H GTF decrease to 20 cc add reglan cont ppi fu stool ob labs in am Wilmer Cardenas MD Aug 15, 2020 09:14
[2020-08-15] MEDS ORDERED: Zinc Oxide Oint 2oz TOPIC PRN (09:30)
[2020-08-15 10:06] LABS: ANION GAP 7 mmol/L (5-15); BLOOD UREA NITROGEN 9 mg/dL (7-18); CALCIUM 8.5 MG/DL (8.5-10.1); CARBON DIOXIDE 26 MMOL/L (21-32); CHLORIDE 110 MMOL/L (98-107); CREATININE 0.5 MG/DL (0.55-1.30); POTASSIUM 4.1 MMOL/L (3.5-5.1); SODIUM 142 MMOL/L (136-145)
[2020-08-15 10:44] LABS: BASOPHILS % (AUTO) 1.1 % (0.0-2.0); EOSINOPHILS % (AUTO) 8.3 % (0.0-3.0); HEMATOCRIT 33.9 % (37.0-47.0); HEMOGLOBIN 11.9 G/DL (12.0-16.0); LYMPHOCYTES % (AUTO) 20.1 % (20.0-45.0); MEAN CORPUSCULAR VOLUME 99 FL (80-99); NEUTROPHILS % (AUTO) 62.6 % (45.0-75.0); PLATELET COUNT 186 K/UL (150-450); RED BLOOD COUNT 3.44 M/UL (4.20-5.40); RED CELL DISTRIBUTION WIDTH 16.9 % (11.6-14.8); WHITE BLOOD COUNT 6.7 K/UL (4.8-10.8)
--- NOTE | 2020-08-15 11:23 | Cardiology Progress Note ---
Assessment/Plan Status: not improved Status Narrative EKG overnight shows 2nd degree AV block Mobitz II, no change in pt's clinical presentation Assessment/Plan 1. Heart block 2. Sinus bradycardia - started on dopamine gtt 3. Respiratory failure s/p trach 4. RBBB 5. HFpEF, acute on chronic diastolic HF troponin 0.015 negative BNP 155 6.Acute seizure with h/o seizure disorder Heart block, 2nd degree AV block Mobitz II. Sinus connie to 30's overnight on dopamine gtt. Pt is vent dependent. SBP 100's at time of exam. Discussed with Dr. Hogan indication for PPM implantation vs medical therapy. Yesterday, medical therapy chosen by pt's daughter who declined PPM. Further recs to marnie dubon. Subjective ROS Limited/Unobtainable: Yes Objective Last 24 Hour Vital Signs Date Time Temp Pulse Resp B/P (MAP) Pulse Ox O2 Delivery O2 Flow Rate FiO2 08/15/20 11:18 40 18 35 08/15/20 08:00 97.5 64 18 158/58 (91) 100 08/15/20 08:00 78 08/15/20 08:00 35 08/15/20 07:23 45 19 35 08/15/20 04:00 97.9 64 16 170/54 (92) 98 08/15/20 04:00 Mechanical Ventilator 08/15/20 04:00 86 08/15/20 04:00 35 08/15/20 03:49 48 20 35 08/15/20 00:00 98.1 64 18 166/50 (88) 98 08/15/20 00:00 68 08/15/20 00:00 Mechanical Ventilator 08/14/20 23:52 51 19 35 08/14/20 20:00 97.5 68 24 157/59 (91) 100 08/14/20 20:00 35 08/14/20 20:00 Mechanical Ventilator 08/14/20 20:00 73 08/14/20 18:54 42 20 35 08/14/20 16:00 35 08/14/20 16:00 Mechanical Ventilator 08/14/20 16:00 34 08/14/20 16:00 97.1 33 18 139/36 (70) 100 08/14/20 15:15 42 24 35 08/14/20 12:00 Mechanical Ventilator 08/14/20 12:00 35 08/14/20 12:00 97.2 32 18 115/34 (61) 99 08/14/20 12:00 38 General Appearance: on vent Rhythm: NSR Cardiovascular: bradycardia Respiratory/Chest: decreased breath sounds Neurologic: unresponsiveness Intake and Output 08/14/20 08/15/20 19:00 07:00 Intake Total 860 ml 1470 ml Balance 860 ml 1470 ml Intake Free Water 160 ml 40 ml IV Total 50 ml 1030 ml Tube Feeding 650 ml 400 ml # Voids 2 Laboratory Tests Test 08/14/20 23:50 08/15/20 05:07 08/15/20 09:45 08/15/20 10:33 POC Whole Blood Glucose 76 MG/DL (74-106) 73 MG/DL (74-106) L Sodium Level 142 MMOL/L (136-145) Potassium Level 4.1 MMOL/L (3.5-5.1) Chloride Level 110 MMOL/L (98-107) H Carbon Dioxide Level 26 MMOL/L (21-32) Anion Gap 7 mmol/L (5-15) Blood Urea Nitrogen 9 mg/dL (7-18) Creatinine 0.5 MG/DL (0.55-1.30) L Estimat Glomerular Filtration Rate > 60 mL/min (>60) Glucose Level 89 MG/DL (74-106) Calcium Level 8.5 MG/DL (8.5-10.1) White Blood Count 6.7 K/UL (4.8-10.8) Red Blood Count 3.44 M/UL (4.20-5.40) L Hemoglobin 11.9 G/DL (12.0-16.0) L Hematocrit 33.9 % (37.0-47.0) L Mean Corpuscular Volume 99 FL (80-99) Mean Corpuscular Hemoglobin 34.5 PG (27.0-31.0) H Mean Corpuscular Hemoglobin Concent 35.0 G/DL (32.0-36.0) Red Cell Distribution Width 16.9 % (11.6-14.8) H Platelet Count 186 K/UL (150-450) Mean Platelet Volume 10.2 FL (6.5-10.1) H Neutrophils (%) (Auto) 62.6 % (45.0-75.0) Lymphocytes (%) (Auto) 20.1 % (20.0-45.0) Monocytes (%) (Auto) 8.0 % (1.0-10.0) Eosinophils (%) (Auto) 8.3 % (0.0-3.0) H Basophils (%) (Auto) 1.1 % (0.0-2.0) Objective Bradycardic today down to 30's, started on dopamine. SBP 118 Penny Hatch PA-C Aug 15, 2020 11:23
[2020-08-15] MEDS: Metoclopramide 10mg/2ml Inj IVP SCH ×3 (11:43→20:08)
[2020-08-15 12:00] VITALS: BP 141/37
[2020-08-15] MEDS: cefTRIAXone 1 GM in D5W 55 ML IVPB SCH (12:30)
--- NOTE | 2020-08-15 13:00 | NUR ---
DR CANALES SAW THE PT. FEEDING TO E STARTED
[2020-08-15 16:00] VITALS: BP 149/40
[2020-08-15] MEDS: D5NS 1,000 ML IV SCH (16:40)
--- NOTE | 2020-08-15 19:01 | NUR ---
RESPIRATORY NOTE: Received pt on AC VC 18, 550VT, 35%, PEEP +5. Pt is trach-dependent w/ a cuffed, Shiley 8 XLT tube. Pt awake/disoriented. B/S torri. rhonchi, sxn small amounts of thick/thin, pale-yellow secretions. Vent plugged into red outlet, ambubag at bedside. pt in no apparent distress at this time. Will continue plan of care.
--- NOTE | 2020-08-15 19:09 | NUR ---
NURSE NOTES: Report received from CESAR Beaver Pt appears awake, responsive to verbal and tactile stimuli. 5-lead EKG shows SB at 48 BPM. Vitals WNL; afebrile. Seizure precautions initiated. Vent settings of AC 18, Vt 550, 35% fio2 Peep 5; saturating 100% New g-tube feeding of Glucerna 1.5 at 20 mL with 0 residual noted. ABEL PICC patent and intact running D5 1/2 NS at 50 mL. Purewick noted. Bed kept in lowest and locked position. Bed alarm on. Side rails up x3. Will continue monitoring.
--- NOTE | 2020-08-15 19:10 | NUR ---
REPORT GIVEN TO WARD GUERRERO
[2020-08-15 20:00] VITALS: BP 156/48
[2020-08-15] MEDS: Dyna-Hex 2% Top Sol 2oz TOPIC SCH (20:08)
--- NOTE | 2020-08-15 23:50 | Neurology Progress Note ---
Interim History Interim History ROS Limited/Unobtainable: Yes Interim History no further seizures Objective Physical Exam Last Vital Signs Date Time Temp Pulse Resp B/P (MAP) Pulse Ox O2 Delivery O2 Flow Rate FiO2 08/15/20 23:12 45 19 35 08/15/20 20:00 97.9 156/48 (84) 100 08/15/20 20:00 Mechanical Ventilator 08/10/20 21:53 10.0 Laboratory Tests Test 08/15/20 05:07 08/15/20 09:45 08/15/20 10:33 POC Whole Blood Glucose 73 MG/DL (74-106) L Sodium Level 142 MMOL/L (136-145) Potassium Level 4.1 MMOL/L (3.5-5.1) Chloride Level 110 MMOL/L (98-107) H Carbon Dioxide Level 26 MMOL/L (21-32) Anion Gap 7 mmol/L (5-15) Blood Urea Nitrogen 9 mg/dL (7-18) Creatinine 0.5 MG/DL (0.55-1.30) L Estimat Glomerular Filtration Rate > 60 mL/min (>60) Glucose Level 89 MG/DL (74-106) Calcium Level 8.5 MG/DL (8.5-10.1) White Blood Count 6.7 K/UL (4.8-10.8) Red Blood Count 3.44 M/UL (4.20-5.40) L Hemoglobin 11.9 G/DL (12.0-16.0) L Hematocrit 33.9 % (37.0-47.0) L Mean Corpuscular Volume 99 FL (80-99) Mean Corpuscular Hemoglobin 34.5 PG (27.0-31.0) H Mean Corpuscular Hemoglobin Concent 35.0 G/DL (32.0-36.0) Red Cell Distribution Width 16.9 % (11.6-14.8) H Platelet Count 186 K/UL (150-450) Mean Platelet Volume 10.2 FL (6.5-10.1) H Neutrophils (%) (Auto) 62.6 % (45.0-75.0) Lymphocytes (%) (Auto) 20.1 % (20.0-45.0) Monocytes (%) (Auto) 8.0 % (1.0-10.0) Eosinophils (%) (Auto) 8.3 % (0.0-3.0) H Basophils (%) (Auto) 1.1 % (0.0-2.0) Neurologic Exam Objective somnolent wakes up tracks weak in all 4, quadriparetic bebdbound cc 35 min Impression/Recommendations Problems: (1) Decubitus skin ulcer (2) Abnormal LFTs (3) Bradycardia (4) Elevated Dilantin level (5) Seizures (6) Hypophosphatemia (7) Aspiration pneumonia (8) Bacteremia due to Gram-negative bacteria (9) Septic shock (10) Chronic respiratory failure (11) Vegetative state (12) Acute and chronic respiratory failure (13) Anoxic brain damage syndrome (14) Feeding by G-tube (15) Hypothyroidism (16) Seizure disorder (17) HTN (hypertension) (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
[2020-08-16] VITALS: BP_SYST 138; BP_SYST 156; BP_DIAS 34; BP_DIAS 79
--- NOTE | 2020-08-16 00:20 | NUR ---
NURSE NOTES: Pt 5-lead EKG shows sinus bradycardia at 38 BPM. No cardiopulmonary distress noted. Will monitor.
[2020-08-16] MEDS: Metoclopramide 10mg/2ml Inj IVP SCH ×2 (03:55→09:16)
[2020-08-16 04:00] VITALS: BP 118/36
[2020-08-16] MEDS: NovoLOG Insulin Flexpen SUBQ SCH ×3 (05:59→12:00)
--- NOTE | 2020-08-16 06:23 | NUR ---
NURSE NOTES: Pt bradycaric 30 bpm at this moment. Observed no POLST is signed in the chart. Spoke to Fallon Dean RN Trailer Steerer in regards to POLST and per RN, "She is full code but no POLST is signed." Will leave message for .
--- NOTE | 2020-08-16 06:36 | NUR ---
NURSE NOTES: Left message for Penny Hatch in regards to bradycardi of 29 bpm. Awaiting further orders.
--- NOTE | 2020-08-16 06:45 | NUR ---
NURSE NOTES: Awaiting message from bryan in regards to sustained SB.
--- NOTE | 2020-08-16 07:19 | NUR ---
NURSE NOTES: Rapid Response initiated per protocol and x1 atropine IVP was given. Per Holden, transfer to ICU and start on titratable Dopamine Drip. DIANA and ICU CN aware.
[2020-08-16] MEDS ORDERED: DOPamine 400mg/250ml 250 ML IV SCH ×2 (07:30→08:00)
--- NOTE | 2020-08-16 07:42 | NUR ---
NURSE NOTES: Pt currently sustaining HR of 46 BPM. En route to ICU transfer Bed E as ordered by AKBAR, was notified by RN Video Rental Clerk that patient will stay in SDU. RT and CN at bedside. Immediately called ultrasound supervisor, ordered to "keep patient on a fixed dose of Dopamine and continue to monitor." Charge SDU/CLINICAL NURSING PROFESSOR made aware. Patient sent back to SDU bed 238-2 under orders of RN Video Rental Clerk. D/w Video Rental Clerk about plan of care. Report given to CESAR Mattson AM shift and will leave message to AKBAR.
--- NOTE | 2020-08-16 07:59 | NUR ---
NURSE HAND-OFF REPORT: Important Events on Shift: OUTSIDE INDUSTRIAL SALES REPRESENTATIVE for bradycardia of 28 BPM Patient Status: Diet: Glucerna Pending Orders: Pending Results/Labs: Pending MD notification: Latest Vital Signs: Temperature 98.0 , Pulse 42 , B/P 118 /36 , Respiratory Rate 16 , O2 SAT 100 , Mechanical Ventilator, O2 Flow Rate 10.0 . Vital Sign Comment: Bradycardia EKG Rhythm: SB; BBBs Rhythm change?: N MD Notified?: ANN Majano MD Response: Message left await call Latest Davis Fall Score: 50 Fall Risk: High Risk Safety Measures: Call light Within Reach, Bed Alarm Zone 1, Side Rails Side Rails x3, Bed position Low and Locked. Fall Precautions: Yellow Socks Yellow Gown Door Sign Patient Fall Education Report given to CESAR Mattson.
[2020-08-16 08:00] VITALS: BP 115/45
--- NOTE | 2020-08-16 08:00 | NUR ---
NURSE NOTES: Received report from CESAR Calderón. The patient is resting on the bed without acute distress or shortness of breath. The patient is still opening eyes and following the command. Communication made by facial expression and body movement. No seizure noted at this time. SB w/ HR of 40s on the engine repairer service. The patient has been having SB rhythm throughout the admission. Per Dr. Hogan, it is due to elevated Dilantin level. Per Cardiology note, the patient has SB w/ 1st degree AVB and 2nd degree AVB type II. The patient is trach'ed and on ventilator on following settings and oxygen saturation is 100%: Shiley 8 XLT, AC 18, TV 550, FiO2 35%, and PEEP 5. The patient's GT intact and patent and running Glucerna 1.5 @ 20mL/hr. The patient is incontinent x2 and is on purewig. Skin issue noted and dressing intact. The patient has ABEL double lumen PICC line that is intact and patent and running D5NS @ 50mL/hr. The patient's bed in the lowest position, call light in reach, and fall, aspiration, and seizure precaution reinforced. PICC line intact and patent. Will follow up the order and plan. Will closely monitor the patient. Will continue plan of care. Per CESAR Calderón, TILE SETTER called @ 0650 for SB w/ HR lowest of 28. Per Ms. Hatch, cardiology PA, transfer the patient to ICU for Dopamine drip. Awaiting for the bed. Will continue plan of care. Addendum: 08/16/20 at 1846 by Daniel Oliva RN During TILE SETTER, Atropine IVP given x1 per protocol by TILE SETTER nurse.
--- NOTE | 2020-08-16 08:00 | NUR ---
NURSE NOTES: Ms. Hatch, cardiology PA ordered the patient to stay @ SDU and start on Dopamine drip fixed dose of 2.5mcg/kg/min. Will carry out the order as soon as possible. The patient is asymptomatic and responding to verbal stimuli. No seizure noted. Will continue plan of care.
--- NOTE | 2020-08-16 08:30 | NUR ---
NURSE NOTES: Dr. Hogan ordered not to administer Dopamine drip at this time and keep the patient at SDU. Will not administer Dopamine per order. Will continue to monitor the patient. Will continue plan of care.
--- NOTE | 2020-08-16 09:00 | NUR ---
NURSE NOTES: Dr. Hogan at the bedside assessed the patient. Notified ADJUNCT ENGLISH INSTRUCTOR episode w/ HR of [address] Hogan clarified with primary RN not to administer Dopamine and ordered the patient to be discharged back to SNF today. Dr. Hogan spoke with the patient's daughter (Ms. Sanchez) regarding the patient's condition and discharge order. Will closely monitor the patient. Will continue plan of care until discharge.
--- NOTE | 2020-08-16 09:06 | Pulmonology Progress Note ---
Subjective ROS Limited/Unobtainable: Yes Interval Events: Remains bradycardic; not hypotensive Constitutional: Reports: no symptoms HEENT: Repors: no symptoms Respiratory: Reports: no symptoms Cardiovascular: Reports: no symptoms Gastrointestinal/Abdominal: Reports: no symptoms Allergies: Coded Allergies: PEANUT (Verified Allergy, Unknown, 09/22/16) Objective Last 24 Hour Vital Signs Date Time Temp Pulse Resp B/P (MAP) Pulse Ox O2 Delivery O2 Flow Rate FiO2 08/16/20 07:20 35 18 35 08/16/20 04:00 Mechanical Ventilator 08/16/20 04:00 98.0 42 16 118/36 (63) 100 08/16/20 04:00 35 08/16/20 03:50 42 08/16/20 03:20 47 18 35 08/16/20 00:00 Mechanical Ventilator 08/16/20 00:00 98.0 61 16 138/34 (68) 100 08/15/20 23:30 34 08/15/20 23:12 45 19 35 08/15/20 20:00 97.9 35 18 156/48 (84) 100 08/15/20 20:00 Mechanical Ventilator 08/15/20 20:00 35 08/15/20 19:55 48 08/15/20 18:58 46 19 35 08/15/20 16:00 35 08/15/20 16:00 35 08/15/20 16:00 Mechanical Ventilator 08/15/20 16:00 96.8 36 20 149/40 (76) 100 08/15/20 15:13 41 18 35 08/15/20 12:00 97.2 64 20 141/37 (71) 97 08/15/20 12:00 35 08/15/20 12:00 102 08/15/20 12:00 Mechanical Ventilator 08/15/20 11:18 40 18 35 Intake and Output 08/15/20 08/16/20 19:00 07:00 Intake Total 220 ml 1010 ml Output Total 550 ml Balance -330 ml 1010 ml Intake Free Water 90 ml 60 ml IV Total 50 ml 730 ml Tube Feeding 80 ml 220 ml Output Urine Total 550 ml # Voids 1 # Bowel Movements 1 4 General Appearance: no acute distress HEENT: normocephalic Respiratory: chest wall non-tender, lungs clear Cardiovascular: normal peripheral pulses Abdomen: normal bowel sounds Extremities: no cyanosis Laboratory Tests 08/15/20 09:45: Sodium Level 142, Potassium Level 4.1, Chloride Level 110H, Carbon Dioxide Level 26, Anion Gap 7, Blood Urea Nitrogen 9, Creatinine 0.5L, Estimat Glomerular Filtration Rate > 60, Glucose Level 89, Calcium Level 8.5 08/15/20 10:33: White Blood Count 6.7, Red Blood Count 3.44L, Hemoglobin 11.9L, Hematocrit 33.9L , Mean Corpuscular Volume 99, Mean Corpuscular Hemoglobin 34.5H, Mean Corpuscular Hemoglobin Concent 35.0, Red Cell Distribution Width 16.9H, Platelet Count 186, Mean Platelet Volume 10.2H, Neutrophils (%) (Auto) 62.6, Lymphocytes (%) (Auto) 20.1, Monocytes (%) (Auto) 8.0, Eosinophils (%) (Auto) 8.3H, Basophils (%) (Auto) 1.1 Current Medications Medications (Trade) Dose Ordered Sig/Boubacar Route PRN Reason Start Time Stop Time Status Last Admin Dose Admin Acetaminophen (Tylenol) 640 mg Q6H PRN GT FEVER 08/10/20 23:15 09/09/20 23:14 Ceftriaxone Sodium 1 gm/ Dextrose 55 ml @ 110 mls/hr Q24H IVPB 08/12/20 13:00 08/19/20 12:59 08/15/20 12:30 Chlorhexidine Gluconate ([place]-Hex 2%) 1 applic DAILY@2000 TOPIC 08/12/20 20:00 11/10/20 19:59 08/15/20 20:08 Dextrose (Dextrose 50%) 25 ml Q30M PRN IV Hypoglycemia 08/10/20 23:15 11/08/20 23:14 Dextrose (Dextrose 50%) 50 ml Q30M PRN IV Hypoglycemia 08/10/20 23:15 11/08/20 23:14 Dextrose/Sodium Chloride 1,000 ml @ 50 mls/hr Q20H IV 08/11/20 11:00 09/10/20 10:59 08/15/20 16:40 Docusate Sodium (Colace) 100 mg DAILY GT 08/11/20 09:00 09/10/20 08:59 08/15/20 09:12 Dopamine HCl/ Dextrose 250 ml @ 0.142 mls/ hr Q24H IV 08/16/20 08:00 08/19/20 08:00 Insulin Aspart (NovoLOG) Q6HR SUBQ 08/11/20 06:00 11/09/20 06:29 Levetiracetam 750 mg/Sodium Chloride 107.5 ml @ 430 mls/hr Q12H IV 08/11/20 21:00 09/10/20 20:59 08/15/20 20:09 Levothyroxine Sodium (Synthroid) 150 mcg DAILY@0630 GT 08/11/20 06:30 09/10/20 06:29 08/16/20 05:59 Magnesium Hydroxide (Mom) 30 ml QHS PRN GT Constipation 08/11/20 21:00 09/10/20 20:59 08/15/20 05:29 Metoclopramide HCl (Reglan) 10 mg Q6H IVP 08/15/20 09:30 09/14/20 09:29 08/16/20 03:55 Pantoprazole (Protonix) 40 mg EVERY 12 HOURS IVP 08/12/20 09:00 09/11/20 08:59 08/15/20 20:08 Zinc Oxide (Zinc Oxide) 1 applic Q8H PRN TOPIC GT site 08/15/20 09:30 11/13/20 09:29 Assessment/Plan Assessment/Plan 1. Supratherapeutic Dilantin level. 2. Recurrent seizures. 3. GI bleed 4. Chronic respiratory failure. 5. Bradycardia DISCUSSION: Seen by cardiology, neurology and GI. Continue vent. Continue present medications care. I will follow carefully. May need PPM Discussed with pts daughter Laura She agrees with my assessment that a pacer woud not be appropriate give her current prognosis On dopamine for bradycardia; will dc S/p PICC line Discussed code status with daughter; recommend DNR Begin dc planning back to SNF Continue vent; AC mode ABG adequate Herbie Spaulding Omar Syed MD Aug 16, 2020 09:06
[2020-08-16] MEDS ORDERED: KEPPRA750 MG ORAL (09:07)
[2020-08-16] MEDS: Docusate 100mg/10ml Liq GT SCH (09:15)
[2020-08-16] MEDS: Pantoprazole Inj IVP SCH (09:16)
[2020-08-16] MEDS: levETIRAcetam 750 MG in NS 100 ML IV SCH (09:16)
[2020-08-16] MEDS: D5NS 1,000 ML IV SCH (09:17)
--- NOTE | 2020-08-16 09:22 | NUR ---
DISCHARGE PLANNING DISCHARGE ORDER NOTED FAXED CLINICALS TO [facility] T; [phone] F: [phone] AWAIT ACCEPTANCE AND ASSIGNED ROOM NUMBER
--- NOTE | 2020-08-16 10:00 | NUR ---
NURSE NOTES: Medications administered per order. The patient tolerated well. Will closely monitor the patient. Will continue plan of care.
--- NOTE | 2020-08-16 10:13 | NUR ---
DISCHARGE PLANNED PATIENT HAS BEEN ACCEPTED BACK TO [facility] [address] SKILLED T: [phone] FOR REPORT [facility] HAS BEEN ARRANGED FOR [employer] MANAGER
--- NOTE | 2020-08-16 10:26 | NUR ---
CASE MANAGEMENT:REVIEW 08/15/20 SI: RECURRENT SEIZURES. BRADYCARDIA SUPRA-THERAPEUTIC DILANTIN LEVEL. TRACH/VENT T 97.5 HR~45->64->40->64 RR 20 BP 141/37 97% ON VENT SUPPORT W/35% FIO2 H/H-11.9/33.9 GLUCOSE-73 IS: DOPAMINE GTT 2.5MCG/KG/MIN IV ROCEPHIN Q24 IV KEPPRA Q12 IV PROTONIX Q12 IVF@50/HR : STEP DOWN UNIT DCP; FROM [facility] 08/16/20 DISCHARGE BACK TO [facility]
--- NOTE | 2020-08-16 10:45 | General Progress Note ---
Subjective ROS Limited/Unobtainable: No Allergies: Coded Allergies: PEANUT (Verified Allergy, Unknown, 09/22/16) Objective Last 24 Hour Vital Signs Date Time Temp Pulse Resp B/P (MAP) Pulse Ox O2 Delivery O2 Flow Rate FiO2 08/16/20 08:00 115/45 08/16/20 07:20 35 18 35 08/16/20 04:00 Mechanical Ventilator 08/16/20 04:00 98.0 42 16 118/36 (63) 100 08/16/20 04:00 35 08/16/20 03:50 42 08/16/20 03:20 47 18 35 08/16/20 00:00 Mechanical Ventilator 08/16/20 00:00 98.0 61 16 138/34 (68) 100 08/15/20 23:30 34 08/15/20 23:12 45 19 35 08/15/20 20:00 97.9 35 18 156/48 (84) 100 08/15/20 20:00 Mechanical Ventilator 08/15/20 20:00 35 08/15/20 19:55 48 08/15/20 18:58 46 19 35 08/15/20 16:00 35 08/15/20 16:00 35 08/15/20 16:00 Mechanical Ventilator 08/15/20 16:00 96.8 36 20 149/40 (76) 100 08/15/20 15:13 41 18 35 08/15/20 12:00 97.2 64 20 141/37 (71) 97 08/15/20 12:00 35 08/15/20 12:00 102 08/15/20 12:00 Mechanical Ventilator 08/15/20 11:18 40 18 35 Intake and Output 08/15/20 08/16/20 19:00 07:00 Intake Total 220 ml 1010 ml Output Total 550 ml Balance -330 ml 1010 ml Intake Free Water 90 ml 60 ml IV Total 50 ml 730 ml Tube Feeding 80 ml 220 ml Output Urine Total 550 ml # Voids 1 # Bowel Movements 1 4 Height (Feet): 6 Height (Inches): 0.00 Weight (Pounds): 200 General Appearance: no apparent distress EENT: normal ENT inspection Neck: supple Cardiovascular: normal rate Respiratory/Chest: decreased breath sounds Abdomen: normal bowel sounds, non tender, soft Extremities: non-tender Assessment/Plan Status: not improved Assessment/Plan: 1. History of asthma. 2. History of COPD. 3. History of CVA. 4. History of dysphagia with G-tube. 5. Respiratory failure with chronic trach. 6. History of seizure disorder. 7. Hypertension. 8. Diabetes. 9. Diverticulosis. 10. History of encephalopathy. stable H&H neg stool ob GTF reglan cont ppi labs in am hold GI procedures for now Wilmer Cardenas MD Aug 16, 2020 10:45
[2020-08-16 12:00] VITALS: BP 122/42
--- NOTE | 2020-08-16 12:00 | NUR ---
NURSE NOTES: BS 107 noted. No Novolog coverage per protocol. Will closely monitor the patient. Will continue plan of care.
--- NOTE | 2020-08-16 12:30 | NUR ---
NURSE NOTES: Clarification made with Dr. Ford regarding discharge order. Per Dr. Hogan, okay to discharge the patient with sustained bradycardia (Dr. Hogan was notified SB episode of sustained SB w/ HR of 30s and lowest of 28) but said okay to discharge back to SNF. Per Dr. Hogan, remove PICC line upon discharge. Per Dr. Hogan, medication reconciliation already completed by Dr. Ford. No antibiotics upon discharge. Will continue plan of care until discharge.
[2020-08-16] MEDS: cefTRIAXone 1 GM in D5W 55 ML IVPB SCH (12:31)
--- NOTE | 2020-08-16 13:00 | NUR ---
NURSE NOTES: Discharge paperwork completed. All orders clarified with Dr. Hogan. Ms. Sanchez (next of kin and daughter) was informed regarding the patient's discharge back to [facility]. Spoke with CESAR Fitzpatrick @ [facility] and gave full report and updated medication list. The patient will go to [facility]note 3[facility] @ [facility] per Dr. Hogan's discharge order. Will continue plan of care until discharge.
[2020-08-16] MEDS ORDERED: Tubing IV Secondary IV ONE ×2 (13:59)
[2020-08-16] MEDS ORDERED: D5NS 1000ml IV ONE ×2 (13:59)
--- NOTE | 2020-08-16 14:00 | NUR ---
NURSE NOTES: The patient got safely discharged back to [address] in a safe manner per Dr. Hogan's discharge order. Clarifications made with Dr. Ford regarding the discharge order. Okay to discharge the patient back to SNF with sustained SB (30-40s) and lowest HR of 28. Remove PICC line upon discharge. Medication reconciliation completed and no antibiotics upon discharge per order. PICC line, nameband, telebox moved from the patient. Laura (Daughter and next of kin) was notified regarding the patient's discharge order back to [facility] per Dr. Hogan's order. Gave full report to CESAR Fitzpatrick @ [facility] who is receiving nurse @ [facility]. Gave full report to MATEO Bond RN @ [facility]. In short, the patient got safely discharged back to [address] Ford's discharge order w/ transporters and MATEO RN's support.
--- NOTE | 2020-08-18 12:30 | Discharge Summary ---
Discharge Summary Discharge Summary _ DATE OF ADMISSION: 08/10/2020 DATE OF DISCHARGE: 08/16/2020 DISCHARGED BY: Dr. Hogan REASON FOR ADMISSION: 80 years old female with past medical history of chronic respiratory failure, ventilator dependent, tracheostomy status. COPD, CVA, asthma, was brought post weakness Patient had another episode of seizure on arrival. [facility]. Laboratory work-up revealed leukocytosis, stable hemoglobin hematocrit. Dilantin level elevated. EKG showed sinus rhythm no acute ischemic changes. Patient in violent emergency room patient became bradycardic and hypotensive and subsequently received atropine. Patient received IV fluid boluses and blood pressure stabilized. Heart rate fluctuates between 40s and 60s. Rapid COVID-19 in the emergency department was negative. Patient subsequently admitted to stepdown unit for further management CONSULTANTS: compensation coordinator Dr. Lopez neurologist Dr Dudley GI specialist Dr. Cardenas [facility] COURSE: Patient admitted to stepdown unit. Ventilator support and pulmonary toilet provided. Venous duplex bilateral lower extremity revealed no evidence of DVT. Diamond Picker closely followed. Patient exhibited second-degree AV block Mobitz 2 and overnight sinus bradycardia . Patient was on dopamine drip. Patient was a candidate for permanent pacemaker implantation versus conservative management with medical therapy. Daughter declined placement of permanent pacemaker. Echocardiogram revealed preserved ejection fraction. Initial troponin was negative. Volumes were closely monitored. DVT and GI prophylaxis provided Blood sugar was managed with sliding scale of insulin. Seizure precaution maintained . No further seizure activity. Since epilepsy was not controlled with Dilantin , patient started on Keppra, and Dilantin was discontinued. EEG revealed encephalopathy of moderate degree. Left hemispheric dysfunction. Left frontocentral temporal focal dysfunction. Further goals of care were discussed with the daughter and recommended DNR status. Dopamine drip discontinued . PICC line was discontinued . Patient was stable for [facility] to [facility] for [facility] of care. FINAL DIAGNOSES: Recurrent seizure Status epilepticus Subtherapeutic Dilantin level Second-degree AV block Mobitz Chronic respiratory failure, ventilator dependence with tracheostomy status Congestive heart failure, acute on chronic,diastolic Sinus bradycardia Encephalopathy Dysphagia, feeding by G-tube Diabetes mellitus History of CVA DISCHARGE MEDICATIONS: See Medication Reconciliation list. DISCHARGE INSTRUCTIONS: [facility] with [facility] services. I have been assigned to dictate discharge summary for this account. I was not involved in the patient's management. Libby Collins NP Aug 18, 2020 12:30
== END 2020-08-16 14:00 | DRG 100 ==
LOC: EDBD 16:48 → EMR 17:45 → 2W 20:57 → EDBEDREQ 21:21 → 2W 23:43
PROC: 5A1955Z Respiratory Ventilation, Greater than 96 Consecutive Hours (ICD-10-PCS; principal; 2020-08-10)
PROC: 02HV33Z Insertion of Infusion Device into Superior Vena Cava, Percutaneous Approach (ICD-10-PCS; 2020-08-12)
DX: G40.901 Epilepsy, unspecified, not intractable, with status epilepticus (principal); J96.20 Acute and chronic respiratory failure, unspecified whether with hypoxia or hypercapnia; G82.50 Quadriplegia, unspecified; I50.33 Acute on chronic diastolic (congestive) heart failure; Z99.11 Dependence on respirator [ventilator] status; G93.40 Encephalopathy, unspecified; Z43.1 Encounter for attention to gastrostomy; R40.3 Persistent vegetative state; G93.1 Anoxic brain damage, not elsewhere classified; K92.2 Gastrointestinal hemorrhage, unspecified; Z43.0 Encounter for attention to tracheostomy; Z86.73 Personal history of transient ischemic attack (TIA), and cerebral infarction without residual deficits; J44.9 Chronic obstructive pulmonary disease, unspecified; I44.1 Atrioventricular block, second degree; R00.1 Bradycardia, unspecified; I11.0 Hypertensive heart disease with heart failure; R13.10 Dysphagia, unspecified; E11.9 Type 2 diabetes mellitus without complications; K57.90 Diverticulosis of intestine, part unspecified, without perforation or abscess without bleeding; D64.9 Anemia, unspecified; I69.320 Aphasia following cerebral infarction; I45.10 Unspecified right bundle-branch block; E03.9 Hypothyroidism, unspecified
CPT/HCPCS: 36415; 36569; 71045; 76937; 80048; 80053; 80185; 81003; 82270; 82607; 82746; 82803; 82962; 83540; 83550; 83605; 83735; 84100; 84484; 85025; 85610; 85730; 87040; 87081; 93005; 93306; 93970; 94002; 94003; 95819; 96361; 96374; 96375; 96376; 99291; G0480; J1165; J1815; J2765; J7030; J8499

== ENCOUNTER 2020-10-06 20:06 | Inpatient (IN) | payer MEDICARE, MEDICAID ==
[~2020-10-06] VITALS: Ht 167.6 cm; Wt 97.1 kg
[~2020-10-06 20:06] MED LIST changes: +APATATE FORTE237 ML GT; +FERROUS SU220 MG/51 GT; +FERROUS SULFAT500 G1 MC; +HIBICLENS118 ML PO; +KEPPRA750 MG ORAL; +NOVOLOG100 UNITS1 SUBQ; +SIMETHICONE80 MG GT
[2020-10-06] MEDS ORDERED: Omnipaque-300 100ml vial INJ PRN (20:15)
--- NOTE | 2020-10-06 20:18 | Emergency Room Report ---
History of Present Illness General Chief Complaint: Vomiting Source: Medical Record, EMS (Johnny Cueto MD) Present Illness HPI 80-year-old female history of anoxic brain injury tracheostomy PEG, presents with coffee-ground emesis x1 episode no known aggravating alleviating factors severity is moderate, intermittent history is limited due to patient's condition (Johnny Cueto MD) Allergies: Coded Allergies: PEANUT (Verified Allergy, Unknown, 09/22/16) COVID-19 Screening Contact w/high risk pt: No Experienced COVID-19 symptoms?: No COVID-19 Testing performed SOIL BIOLOGY TEACHER: No COVID-19 Screening: Negative COVID-19 COVID-19 Testing Source: [facility] (Johnny Cueto MD) Patient History Limited by: medical condition - Anoxic brain injury Past Medical History: see triage record Reviewed Nursing Documentation: PMH: Agreed; PSxH: Agreed (Johnny Cueto MD) Nursing Documentation-PMH Hx Cardiac Problems: Yes Hx Hypertension: Yes Hx Pacemaker: No Hx Asthma: No Hx COPD: Yes Hx Diabetes: Yes Hx Cancer: Yes Hx Gastrointestinal Problems: Yes Hx Neurological Problems: Yes Hx Cerebrovascular Accident: Yes - Encephalpathy Hx Transient Ischemic Attacks: No Hx Dementia: No Hx Alzheimer's Disease: No Hx Parkinson's Disease: No Hx Meningitis: No Hx Seizures: Yes Hx Epilepsy: Yes Hx Multiple Sclerosis: No Hx Cerebral Palsy: No Hx Amyotrophic Lat Sclerosis: No Hx Guillian-[place] Syndrome: No Hx Paralysis: Yes - CVA Hx Peripheral Neuropathy: No Hx Spinal Cord Injury: No Hx Head Trauma: No Hx Traumatic Brain Injury: No Hx Memory Loss: Yes Hx Concentration Difficulty: Yes Hx Speech Problem: Yes Hx Tremors: No Hx Vertigo: No Hx Dizziness: No Hx Syncope: No Hx Headaches: No Hx Aphasia: No Hx Dysphasia: No Hx Weakness: Yes Hx Fatigue: No Hx Neurologic Surgery: No Hx Brain Shunt: No (Johnny Cueto MD) Review of Systems All Other Systems: limited - Anoxic brain injury (Johnny Cueto MD) Physical Exam Sp02 EP Interpretation: reviewed, normal General Appearance: no apparent distress, alert, obese Head: normocephalic, atraumatic Eyes: bilateral eye PERRL, bilateral eye EOMI ENT: uvula midline, moist mucus membranes Neck: supple, thyroid normal, supple/symm/no masses, tracheotomy Respiratory: lungs clear, no respiratory distress, no retraction, no accessory muscle use Cardiovascular #1: normal peripheral pulses, no edema, no gallop, no murmur, bradycardia Gastrointestinal: non tender, soft, no guarding, no rebound, other - PEG tube present Musculoskeletal: normal inspection Neurologic: alert, responsive, other - Moves all 4 extremities Psychiatric: mood/affect normal Skin: no rash, warm/dry (Johnny Cueto MD) Medical Decision Making Diagnostic Impression: Primary Impression: GI bleed Qualified Codes: K92.2 - Gastrointestinal hemorrhage, unspecified ER Course 80-year-old female presents with hematemesis. Differential includes GI bleed, gastritis. Plan for admission to Dr. Ramos. Given 40 mg of pantoprazole. Patient admitted to Dr. Ramos Laboratory Tests Test 10/06/20 20:25 10/06/20 21:35 White Blood Count 8.2 K/UL (4.8-10.8) Red Blood Count 3.87 M/UL (4.20-5.40) L Hemoglobin 11.9 G/DL (12.0-16.0) L Hematocrit 37.2 % (37.0-47.0) Mean Corpuscular Volume 96 FL (80-99) Mean Corpuscular Hemoglobin 30.9 PG (27.0-31.0) Mean Corpuscular Hemoglobin Concent 32.0 G/DL (32.0-36.0) Red Cell Distribution Width 14.8 % (11.6-14.8) Platelet Count 154 K/UL (150-450) Mean Platelet Volume 10.0 FL (6.5-10.1) Neutrophils (%) (Auto) 65.6 % (45.0-75.0) Lymphocytes (%) (Auto) 22.0 % (20.0-45.0) Monocytes (%) (Auto) 7.8 % (1.0-10.0) Eosinophils (%) (Auto) 3.5 % (0.0-3.0) H Basophils (%) (Auto) 1.1 % (0.0-2.0) Prothrombin Time 11.5 SEC (9.30-11.50) Prothrombin Time INR 1.0 (0.9-1.1) Activated Partial Thromboplast Time 23 SEC (23-33) Sodium Level 143 MMOL/L (136-145) Potassium Level 3.5 MMOL/L (3.5-5.1) Chloride Level 104 MMOL/L (98-107) Carbon Dioxide Level 31 MMOL/L (21-32) Anion Gap 8 mmol/L (5-15) Blood Urea Nitrogen 17 mg/dL (7-18) Creatinine 0.6 MG/DL (0.55-1.30) Estimated Glomerular Filtration Rate > 60 mL/min (>60) Glucose Level 89 MG/DL (74-106) Lactic Acid Level 1.00 mmol/L (0.4-2.0) Calcium Level 9.9 MG/DL (8.5-10.1) Phosphorus Level 3.1 MG/DL (2.5-4.9) Magnesium Level 2.3 MG/DL (1.8-2.4) Total Bilirubin 0.6 MG/DL (0.2-1.0) Aspartate Amino Transferase (AST) 23 U/L (15-37) Alanine Aminotransferase (ALT) 19 U/L (12-78) Alkaline Phosphatase 146 U/L (46-116) H Creatine Kinase MB < 0.5 NG/ML (0.0-3.6) Troponin I 0.002 ng/mL (0.000-0.056) Pro-B-Type Natriuretic Peptide 342 pg/mL (0-125) H Total Protein 9.0 G/DL (6.4-8.2) H Albumin 3.4 G/DL (3.4-5.0) Globulin 5.6 g/dL Albumin/Globulin Ratio 0.6 (1.0-2.7) L Lipase 84 U/L (73-393) Urine Color Yellow Urine Appearance Clear Urine pH 7 (4.5-8.0) Urine Specific Sesser 1.010 (1.005-1.035) Urine Protein Negative (NEGATIVE) Urine Glucose (UA) Negative (NEGATIVE) Urine Ketones Negative (NEGATIVE) Urine Blood Negative (NEGATIVE) Urine Nitrite Negative (NEGATIVE) Urine Bilirubin Negative (NEGATIVE) Urine Urobilinogen Normal MG/DL (0.0-1.0) Urine Leukocyte Esterase Negative (NEGATIVE) (Johnny Cueto MD) ER Course Patient signed out to me pending admission versus transfer. Initially PA wanted her to be transferred. I spoke with Dr. Ashton who had to be transferred to [facility]. They have no bed so should be admitted here. I discussed the case with Dr. Hogan who accepted her for admission. (Milton Salcedo MD) EKG Diagnostic Results Troponin ordered: Yes When was troponin ordered?: Oct 06, 2020 EKG Time: 20:13 EP Interpretation: Sinus bradycardia rate 39, no acute ST elevations, normal axis (Johnny Cueto MD) Rhythm Strip Diag. Results Rhythm Strip Time: 21:40 EP Interpretation: yes Rate: 54 Rhythm: other - Sinus bradycardia (Johnny Cueto MD) Chest X-Ray Diagnostic Results Chest X-Ray Diagnostic Results : Chest X-Ray Ordered: Yes # of Views/Limited/Complete: 1 View Indication: Chest Pain EP Interpretation: Yes Interpretation: other - Increased interstitial markings bilaterally Impression: Other - Increased interstitial markings bilaterally Electronically Signed by: Johnny Cueto MD (Johnny Cueto MD) CT/MRI/US Diagnostic Results CT/MRI/US Diagnostic Results : Imaging Test Ordered: CT abdomen pelvis Impression Read by radiologist. Bibasilar infiltrate/atelectasis. Marked gaseous distention of the sigmoid colon. No evidence of volvulus or obstructive process. (Milton Salcedo MD) Status: improved (Milton Salcedo MD) Disposition: ADMITTED INPATIENT Condition: Serious Johnny Cueto MD Oct 06, 2020 20:18 Milton Salcedo MD Oct 07, 2020 00:43
[2020-10-06] MEDS ORDERED: Pantoprazole Inj IVP ONE (20:30)
--- NOTE | 2020-10-06 20:30 | NUR ---
ED Nurse Note: pt comes in via ems from [facility]. pt is on a vent, c/o that she had one episode of coffee ground emesis around 1400 today. p Addendum: 10/06/20 at 2116 by ABALES ED Nurse Note: pt comes in via ems from [facility]. pt is on a vent, c/o that she had one episode of coffee ground emesis around 1400 today. IV lines est. 20g in LAC and 20g in RWrist. Labs drawn and sent to lab. Newman inserted with 150mL yellow urine in collection chamber. [facility] transport nurse states pt has a hx of bradycardia. Pt has a Gtube, firm abdomen and is restless. Reposition and distraction for comfort and pt shakes her head that she feels better. Will continue to monitor.
--- NOTE | 2020-10-06 20:45 | NUR ---
ED Nurse Note: pt has deep tissue injury/scar on sacrococcyx.
[2020-10-06 20:57] VITALS: BP 158/87
[2020-10-06 21:02] LABS: BILIRUBIN, URINE NEGATIVE (NEGATIVE); GLUCOSE, URINE (UA) NEGATIVE (NEGATIVE); KETONES,URINE NEGATIVE (NEGATIVE); LEUKOCYTE ESTERASE ,URINE NEGATIVE (NEGATIVE); NITRITE,URINE NEGATIVE (NEGATIVE); PH,URINE 7 (4.5-8.0); PROTEIN,URINE NEGATIVE (NEGATIVE); UROBILINOGEN,URINE NORMAL MG/DL (0.0-1.0)
[2020-10-06 21:05] LABS: APPEARANCE,URINE CLEAR; COLOR,URINE YELLOW
[2020-10-06 21:06] LABS: ANION GAP 8 mmol/L (5-15); BASOPHILS % (AUTO) 1.1 % (0.0-2.0); BLOOD UREA NITROGEN 17 mg/dL (7-18); CALCIUM 9.9 MG/DL (8.5-10.1); CARBON DIOXIDE 31 MMOL/L (21-32); CHLORIDE 104 MMOL/L (98-107); CREATININE 0.6 MG/DL (0.55-1.30); EOSINOPHILS % (AUTO) 3.5 % (0.0-3.0); HEMATOCRIT 37.2 % (37.0-47.0); HEMOGLOBIN 11.9 G/DL (12.0-16.0); MEAN CORPUSCULAR VOLUME 96 FL (80-99); MONOCYTES % (AUTO) 7.8 % (1.0-10.0); NEUTROPHILS % (AUTO) 65.6 % (45.0-75.0); PLATELET COUNT 154 K/UL (150-450); POTASSIUM 3.5 MMOL/L (3.5-5.1); RED BLOOD COUNT 3.87 M/UL (4.20-5.40); RED CELL DISTRIBUTION WIDTH 14.8 % (11.6-14.8); SODIUM 143 MMOL/L (136-145); WHITE BLOOD COUNT 8.2 K/UL (4.8-10.8)
[2020-10-06 21:20] LABS: ALANINE AMINOTRANSFERASE 19 U/L (12-78); ALBUMIN 3.4 G/DL (3.4-5.0); ALBUMIN/GLOBULIN RATIO 0.6 (1.0-2.7); ALKALINE PHOSPHATASE 146 U/L (46-116); ASPARTATE AMINO TRANSFERASE 23 U/L (15-37); BILIRUBIN,TOTAL 0.6 MG/DL (0.2-1.0); CKMB < 0.5 NG/ML (0.0-3.6); PHOSPHORUS 3.1 MG/DL (2.5-4.9)
[2020-10-06] MEDS ORDERED: fentaNYL 100 mcg/2 mL IV ONE ×2 (21:30→21:33)
--- NOTE | 2020-10-06 21:47 | NUR ---
ED Nurse Note: FS and clinicals faxed to CM
[2020-10-06 22:11] VITALS: BP 134/53
--- NOTE | 2020-10-06 22:13 | Diagnostic Imaging Report ---
EXAM: CT Abdomen and Pelvis With Intravenous Contrast CLINICAL HISTORY: VOMITING TECHNIQUE: Axial computed tomography images of the abdomen and pelvis with intravenous contrast. CTDI is 14.6 mGy and DLP is 768.1 mGy-cm. One or more of the following dose reduction techniques were used: automated exposure control, adjustment of the mA and/or kV according to patient size, use of iterative reconstruction technique. COMPARISON: No relevant prior studies available. FINDINGS: Lung bases: Basilar infiltrates. Heart: Cardiomegaly. ABDOMEN: Liver: Unremarkable. Gallbladder and bile ducts: No calcified stones. No ductal dilation. Pancreas: Unremarkable. Spleen: Unremarkable. Adrenals: Unremarkable. Kidneys and ureters: Left renal cyst and other small low-attenuation foci. Stomach and bowel: Marked gaseous distention of the sigmoid colon. No evidence of volvulus or obstructive process. PELVIS: Appendix: Appendix not identified. Bladder: Newman catheter. Reproductive: Hysterectomy. ABDOMEN and PELVIS: Intraperitoneal space: Unremarkable. Bones/joints: No acute fracture. Soft tissues: Nodular lesions in the left breast, largest measures roughly 2.5 cm. Fat-containing ventral hernia. Vasculature: Unremarkable. No abdominal aortic aneurysm. Lymph nodes: No enlarged lymph nodes. Tubes, lines and devices: Percutaneous G-tube. IMPRESSION: 1. Marked gaseous distention of the sigmoid colon. No evidence of volvulus or obstructive process. 2. Appendix not identified. 3. Basilar infiltrates.
--- NOTE | 2020-10-06 22:22 | NUR ---
ED Nurse Note: MD to MD call facilitated for Dr. Salcedo - Dr. Ashton Pt accepted for TFR
[2020-10-06 23:09] VITALS: BP 145/60
--- NOTE | 2020-10-06 23:10 | NUR ---
ED Nurse Note: pt resting comfortably on stretcher. VS within patients norms. Pt vent dependent. Pt seems to have relief from Fentanyl and is sleeping with ease to awake. will continue to monitor and await for transport.
[2020-10-07 00:18] VITALS: BP 130/68
--- NOTE | 2020-10-07 00:19 | NUR ---
ED Nurse Note: pt resting much more comfortably now. vs wnl. pt vent dependent PEEP 5, FIo2 35, Rate 18 and doing well after suction every hour or so. awaiting bed assignment. will continue to monitor
--- NOTE | 2020-10-07 00:43 | NUR ---
ED Nurse Note: Dr. Salcedo spoke to Dr. Hogan for md-md call
[2020-10-07] MEDS ORDERED: Acetaminophen 650 MG SUPP RECTAL PRN (00:45)
--- NOTE | 2020-10-07 00:47 | NUR ---
TRANSFER TO FLOOR: Patient transferred to as ordered, per ER MD. Report given to CESAR Thorne. No belongings for pt.
[2020-10-07] MEDS ORDERED: Simethicone 80mg tab GT PRN (02:00)
--- NOTE | 2020-10-07 02:30 | NUR ---
Assumed care of patient from ED
[2020-10-07 04:00] VITALS: BP 119/65
--- NOTE | 2020-10-07 04:00 | NUR ---
Patient stable and on vent. Q2 Hr repositions. Putting out clear yellow urine in Newman. VSS, will continue to monitor.
--- NOTE | 2020-10-07 06:00 | NUR ---
Pt stable, VSS, will continue to monitor.
--- NOTE | 2020-10-07 06:58 | NUR ---
CASE MANAGEMENT:REVIEW 80 YR OLD FEMALE BIBA FROM [facility] CC: VOMITING PMH: TRACH/VENT/ SI: GIB 98.5 78 20 158/87 98% ON VENT SUPPORT W/30% FIO2 HGB-11.9 IS: 1L NS BOLUS X1 IV PROTONIX X1 IV FENTANYL X1 CT ABD/PELVIS CXR BLOOD CX : TO STEP DOWN UNIT DCP: FROM [facility] PLAN: MONITOR H/H
[2020-10-07] MEDS ORDERED: Acetaminophen 650mg/20.3ml GT PRN ×2 (07:15)
--- NOTE | 2020-10-07 07:23 | NUR ---
Gave report to CESAR Narvaez. Handed off care of patient.
--- NOTE | 2020-10-07 07:30 | NUR ---
NURSE NOTES: Received report from tita Thorne RN. Pt is lying in bed, no facial grimacing noted. Trach to vent tolerating vent setting of VC 450, FiO2 35%, PEEP 5, saturating 99%. G-tube is intact and patent. NPO. Peripheral IV in L AC 20G, and R hand 20 G are intact and patent. Newman catheter is intact and patent. Skin issues noted and dressing intact. Recent Medication, labs, and MD orders reviewed. Bed is locked and in lowest position, bed alarm on, call light is with the pt. Will continue to monitor pt. Will continue with the plan of care.
--- NOTE | 2020-10-07 07:34 | NUR ---
RD ASSESSMENT & RECOMMENDATIONS SEE CARE ACTIVITY FOR COMPLETE ASSESSMENT DAILY ESTIMATED NEEDS: Needs based on Obese, critical care, wound 64.5kg abw 22-28 kcals/kg 0795-5047 total kcals 1.25-2 g protein/kg 81-129 g total protein 25-30 mL/kg 2962-1331 total fluid mLs NUTRITION DIAGNOSIS: Swallowing difficulty R/T respiratory status as evidenced by pt trach-vent dep, GT dep. CURRENT TF: NPO ENTERAL NUTRITION RECOMMENDATIONS: As medically able, rec Vital 1.2 @ 65ml/hr x 20 hrs to provide 1300ml, 1560kcal, 98g prot, 1054ml free water - As medically able, rec Vital 1.2, elemental (pt adm w/ coffee ground emesis). Start @35ml/hr for 6 hrs, advance as tolerated to goal. - Flush per MD. HOB over 30 degrees ADDITIONAL RECOMMENDATIONS: * Calibrated bed scale weights for accurate CBW * F/up w/ WC eval * Monitor lytes daily w/ TF, replete as needed * Check HgA1C, on niss * On keppra, monitor for dilantin . .
[2020-10-07 08:00] VITALS: BP 137/87
[2020-10-07] MEDS: Docusate 100mg/10ml Liq GT SCH (08:55)
[2020-10-07] MEDS: Ascorbic Acid 500mg tab GT SCH (08:56)
[2020-10-07] MEDS: levETIRAcetam 500mg/5ml Liquid GT SCH ×2 (08:56→20:41)
[2020-10-07] MEDS: Ferrous Sulfate 300 MG/5 ML UDC GT SCH ×2 (08:56→17:43)
[2020-10-07] MEDS: Zinc Sulfate 220mg GT SCH (08:56)
--- NOTE | 2020-10-07 10:00 | NUR ---
NURSE NOTES: Initial assessment done. Pt is wake, follows command, not in acute distress. Oral and trach suctioning done, oral care done. Tolerating vent setting with O2 sat remaining 98-99%. Vital signs are stable. PCR covid test done, and sent in the lab. Will continue to monitor pt. Will continue with the plan of care.
--- NOTE | 2020-10-07 11:00 | NUR ---
NURSE NOTES: Dr. Hogan ordered to resume G-tube feeding given in the mcc. Glucerna 1.5 started at 10cc/hr with goal of 50cc/hr. Venous Duplex for bilateral leg is ordered by Dr. Hogan. Will continue to monitor pt. Will continue with the plan of care.
--- NOTE | 2020-10-07 11:14 | History and Physical Report ---
DATE OF ADMISSION: 10/06/2020 HISTORY OF PRESENT ILLNESS: This is an 80-year-old chronic respiratory dependent, vent dependent patient with vegetative state. She was sent into the emergency room last night from the facility due to coffee-grounds emesis. The patient unable to provide any further history. Most of the history obtained from provided medical records. The patient has been admitted to this hospital in the past and during a previous hospitalization, she was noted to be markedly bradycardic. She also has a history of seizures on Keppra. She was candidate for permanent pacemaker; however, the family declined pacemaker implant. The patient, however, did remain Full Code. At this time, she is nonverbal, unable answer any questions. MEDICATIONS: Her list of home medications include ferrous sulfate, Keppra, Synthroid, zinc, Protonix. ALLERGIES: Peanuts. PAST SURGICAL HISTORY: Chronic tracheostomy, chronic G-tube. PAST MEDICAL HISTORY: She also has a history of previous CVA. REVIEW OF SYSTEMS: Not reliable. PHYSICAL EXAMINATION: GENERAL: Reveals an obese female. Tracheostomy is clean. VITAL SIGNS: Blood pressure is 130/80, heart rate is , respirations are 20, O2 saturation 97% on 35% FiO2. HEENT: Unremarkable. CHEST: Clear breath sounds bilaterally. ABDOMEN: Soft. G-tube is noted. EXTREMITIES: There is no appreciable edema. LABORATORY DATA: Lab testing shows normal CBC and BMP with hemoglobin 11.9. IMAGING STUDIES: Abdominal pelvis CT was obtained, which shows distention of the colon, otherwise no pathology noted. She has basilar infiltrates. IMPRESSION: 1. Chronic respiratory failure. 2. Chronic G-tube. 3. Seizure disorder. 4. Chronic bradycardia. 5. Mild anemia. 6. Full Code. DISCUSSION: 1. Continue Keppra. 2. Continue current vent settings, FiO2 is at 35%. 3. We will consult GI for history of coffee-grounds emesis. 4. Continue home medications. 5. We will again involve Cardiology given the bradycardia. 6. We will follow carefully. Grabiel Hogan M.D. DR: Moy JOB#: [id number] CC:
--- NOTE | 2020-10-07 11:39 | Diagnostic Imaging Report ---
Indication: Cough Technique: XRAY Chest 1v Comparison: 08/12/2020 Findings: Left arm PICC line is been removed. Surgical clips are noted in the right axillary region. Tracheostomy tube is again noted. Heart size is stable. Atherosclerotic calcifications of the aortic arch. There are patchy bibasilar opacities, left greater than right. No pleural effusion or pneumothorax. No acute osseous abnormality. Impression: Patchy bibasilar opacities which may be related to subsegmental atelectasis and/or pneumonia. Please correlate clinically. Indwelling tracheostomy tube.
[2020-10-07 12:00] VITALS: BP 131/64
[2020-10-07] MEDS: NovoLOG Insulin Flexpen SUBQ SCH ×2 (12:00→17:39)
[2020-10-07] MEDS ORDERED: COMBIVENT RESPIM4 GM IH (12:17)
[2020-10-07] MEDS ORDERED: LEVETIRACE500 MG/51 GT (12:17)
[2020-10-07] MEDS ORDERED: VITAMIN C GT (12:17)
--- NOTE | 2020-10-07 12:45 | NUR ---
NURSE NOTES: Contacted Dr. Hogan regarding the 2*AVB this morning, and regarding the 1*AVB currently. Awaiting reply. Will continue to closely monitor the pt.
--- NOTE | 2020-10-07 12:53 | General Progress Note ---
Subjective ROS Limited/Unobtainable: No Allergies: Coded Allergies: PEANUT (Verified Allergy, Unknown, 09/22/16) Objective Last 24 Hour Vital Signs Date Time Temp Pulse Resp B/P (MAP) Pulse Ox O2 Delivery O2 Flow Rate FiO2 10/07/20 12:00 35 10/07/20 12:00 Mechanical Ventilator 10/07/20 12:00 97.9 75 22 131/64 (86) 99 10/07/20 08:00 97.0 73 19 137/87 (104) 99 10/07/20 08:00 Mechanical Ventilator 10/07/20 08:00 35 10/07/20 08:00 38 10/07/20 04:00 Mechanical Ventilator 10/07/20 04:00 98.2 69 19 119/65 (83) 99 10/07/20 04:00 35 10/07/20 03:39 34 10/07/20 03:00 79 19 30 10/07/20 02:30 Mechanical Ventilator 10/07/20 01:50 71 23 98 35 10/07/20 01:37 78 23 30 10/07/20 01:32 55 10/07/20 00:18 98.4 65 18 130/68 100 Mechanical Ventilator 35 10/06/20 23:09 98.4 72 18 145/60 100 Mechanical Ventilator 35 10/06/20 22:11 98.4 77 19 134/53 100 Mechanical Ventilator 30 10/06/20 20:57 98.4 66 21 158/87 98 Mechanical Ventilator 30 10/06/20 20:57 66 18 Mechanical Ventilator 98 10/06/20 20:35 56 21 30 10/06/20 20:05 98.4 78 20 158/87 (110) 98 Intake and Output 10/06/20 10/07/20 19:00 07:00 Output Total 650 ml Balance -650 ml Output Urine Total 650 ml Laboratory Tests 10/06/20 20:25: White Blood Count 8.2, Red Blood Count 3.87L, Hemoglobin 11.9L, Hematocrit 37.2, Mean Corpuscular Volume 96, Mean Corpuscular Hemoglobin 30.9, Mean Corpuscular Hemoglobin Concent 32.0, Red Cell Distribution Width 14.8, Platelet Count 154, Mean Platelet Volume 10.0, Neutrophils (%) (Auto) 65.6, Lymphocytes (%) (Auto) 22.0, Monocytes (%) (Auto) 7.8, Eosinophils (%) (Auto) 3.5H, Basophils (%) (Auto) 1.1, Prothrombin Time 11.5, Prothromb Time International Ratio 1.0, Activated Partial Thromboplast Time 23, Sodium Level 143, Potassium Level 3.5, Chloride Level 104, Carbon Dioxide Level 31, Anion Gap 8, Blood Urea Nitrogen 17, Creatinine 0.6, Estimat Glomerular Filtration Rate > 60, Glucose Level 89, Lactic Acid Level 1.00, Calcium Level 9.9, Phosphorus Level 3.1, Magnesium Level 2.3, Total Bilirubin 0.6, Aspartate Amino Transf (AST/SGOT) 23, Alanine Aminotransferase (ALT/SGPT) 19, Alkaline Phosphatase 146H, Creatine Kinase MB < 0.5, Troponin I 0.002, Pro-B-Type Natriuretic Peptide 342H, Total Protein 9.0H, Albumin 3.4, Globulin 5.6, Albumin/Globulin Ratio 0.6L, Lipase 84 10/06/20 21:35: Urine Color Yellow, Urine Appearance Clear, Urine pH 7, Urine Specific [place] 1.010, Urine Protein Negative, Urine Glucose (UA) Negative, Urine Ketones Negative, Urine Blood Negative, Urine Nitrite Negative, Urine Bilirubin Negative, Urine Urobilinogen Normal, Urine Leukocyte Esterase Negative 10/07/20 04:33: POC Whole Blood Glucose [Pending] 10/07/20 11:43: POC Whole Blood Glucose [Pending] Height (Feet): 5 Height (Inches): 6.00 Weight (Pounds): 214 General Appearance: no apparent distress EENT: normal ENT inspection Neck: supple Cardiovascular: normal rate Respiratory/Chest: decreased breath sounds Abdomen: normal bowel sounds, non tender, soft Extremities: non-tender Assessment/Plan Assessment/Plan: Assessment/Plan: 1. History of asthma. 2. History of COPD. 3. History of CVA. 4. History of dysphagia with G-tube. 5. Respiratory failure with chronic trach. 6. History of seizure disorder. 7. Hypertension. 8. Diabetes. 9. Diverticulosis. 10. History of encephalopathy. 11. coffee ground emesis stable H&H since 08/2020 [facility] reglan ppi labs in am hold GI procedures for now Wilmer Cardenas MD Oct 07, 2020 12:53
--- NOTE | 2020-10-07 14:30 | NUR ---
NURSE NOTES: Bed sponge bath given, turned and repositioned, gown and linens changed, oral care done. Trach and oral suctioning done. Pt tolerated well. O2 saturation remain 98-99% No facial grimacing noted. Wound scars cleaned and dressed by wound care nurse. Optifoan place in high risk areas for prevention. Will continue to closely monitor pt.
[2020-10-07 16:00] VITALS: BP 129/53
--- NOTE | 2020-10-07 16:08 | NUR ---
NURSE NOTES:WOUND CARE NOTES:Pt presented on admission with areas of hyperpigmentation from previous wounds R side, Posterior, and L side of neckline. Insertion site of GT is macerated. Abdominal folds are moist with mild odor noted. Moisture Intertrigo noted to L abdominal folds. Scattered areas of Hyperpigmentation noted to Sacrum,R and L gluteal cheeks. No evidence of skin breakdown noted to buttocks. Bilat heels are soft but each heel easily blanches. Tx.Plan> Wash Gt site with soap and water. Pat dry. Apply Moisture Barrier Paste to Peristomal skin Daily and prn. Wash abdominal folds with soap and water.Pat dry. Apply Moisture Barrier Paste Twice Daily. Apply Moisture Barrier Paste to Buttocks. Cover Sacrum with Optifoam drsg. Change every 3 days and prn. Apply Cav[place] Skin Barrier to both heels. Cover each heel with Optifoam drsg. Change every 7days and prn. Reposition at least every 2hours or as tolerated. Off-load heels with pillow.
--- NOTE | 2020-10-07 17:10 | NUR ---
NURSE NOTES: Second unit of PRBC is being transfuse. Pt tolerating well. No adverse reaction. Will continue to closely monitor pt. Addendum: 10/07/20 at 1718 by Solange Varela RN RN Wrong pt.
--- NOTE | 2020-10-07 19:00 | NUR ---
NURSE NOTES: Received patient from CESAR Narvaez. patient is in bed, nonverbal. sinus rhythm on the monitor. trach to vent AC 18, TV 450, FiO2 30%, PEEP 5. Gtube and tube feeding running glucerna 1.5 rate currently at 15ml/hr. gould in place and draining well to gravity. bed to lowest position and locked. call light within easy reach. will continue plan of care.
--- NOTE | 2020-10-07 19:10 | NUR ---
NURSE HAND-OFF REPORT: Important Events on Shift:None Patient Status: Full code Diet: Glucerna 1.5 @ 15, Goal 50cc/hr Pending Orders: N Pending Results/Labs:N Pending MD notification:N Latest Vital Signs: Temperature 98.2 , Pulse 35 , B/P 129 /53 , Respiratory Rate 19 , O2 SAT 98 , Mechanical Ventilator, O2 Flow Rate . Vital Sign Comment: stable EKG Rhythm: 3rd degree hb, bbb, 1 PVC Rhythm change?: Fany BROWN Notified?: Fany FLORES MD Response: Message left await call Latest Davis Fall Score: 30 Fall Risk: Medium Risk Safety Measures: Call light Within Reach, Bed Alarm Zone 2, Side Rails Side Rails x2, Bed position Low and Locked. Fall Precautions: Yellow Socks Report given to CESAR Lucas.
[2020-10-07 20:00] VITALS: BP 137/88
--- NOTE | 2020-10-07 20:00 | NUR ---
NURSE NOTES: tube feeding held. gtube residual 120ml
[2020-10-08] VITALS: BP 120/77
--- NOTE | 2020-10-08 01:02 | NUR ---
NURSE NOTES: noted blood glucose 76. orange juice given.
--- NOTE | 2020-10-08 01:42 | NUR ---
NURSE NOTES: vital signs stable. noted patient connie down to 40's when sleeping. woke up patient, HR now 60's
[2020-10-08 04:00] VITALS: BP 128/56
[2020-10-08 05:11] LABS: BASOPHILS % (AUTO) 0.6 % (0.0-2.0); EOSINOPHILS % (AUTO) 4.5 % (0.0-3.0); HEMATOCRIT 31.6 % (37.0-47.0); HEMOGLOBIN 10.2 G/DL (12.0-16.0); MEAN CORPUSCULAR VOLUME 99 FL (80-99); NEUTROPHILS % (AUTO) 62.8 % (45.0-75.0); PLATELET COUNT 145 K/UL (150-450); RED CELL DISTRIBUTION WIDTH 15.1 % (11.6-14.8); WHITE BLOOD COUNT 6.4 K/UL (4.8-10.8)
[2020-10-08] MEDS: NovoLOG Insulin Flexpen SUBQ SCH ×4 (05:25→17:59)
[2020-10-08 05:42] LABS: ALANINE AMINOTRANSFERASE 16 U/L (12-78); ALBUMIN 2.8 G/DL (3.4-5.0); ALBUMIN/GLOBULIN RATIO 0.6 (1.0-2.7); ALKALINE PHOSPHATASE 110 U/L (46-116); ANION GAP 7 mmol/L (5-15); ASPARTATE AMINO TRANSFERASE 19 U/L (15-37); BILIRUBIN,TOTAL 0.5 MG/DL (0.2-1.0); BLOOD UREA NITROGEN 13 mg/dL (7-18); CALCIUM 9.1 MG/DL (8.5-10.1); CARBON DIOXIDE 29 MMOL/L (21-32); CHLORIDE 108 MMOL/L (98-107); CREATININE 0.5 MG/DL (0.55-1.30); POTASSIUM 2.9 MMOL/L (3.5-5.1); SODIUM 144 MMOL/L (136-145)
[2020-10-08 08:00] VITALS: BP 128/56
[2020-10-08] MEDS: Docusate 100mg/10ml Liq GT SCH (09:00)
[2020-10-08] MEDS: Pantoprazole Inj IVP SCH (09:00)
[2020-10-08] MEDS: Ascorbic Acid 500mg tab GT SCH (09:00)
[2020-10-08] MEDS: Ferrous Sulfate 300 MG/5 ML UDC GT SCH ×2 (09:00→17:53)
[2020-10-08] MEDS: levETIRAcetam 500mg/5ml Liquid GT SCH ×2 (09:00→21:34)
[2020-10-08] MEDS: Zinc Sulfate 220mg GT SCH (09:00)
--- NOTE | 2020-10-08 09:17 | Consultation ---
History of Present Illness General Chief Complaint: Vomiting Referring physician: Dr. Hogan Present Illness HPI This is an 80-year-old chronic respiratory dependent, vent dependent patient with vegetative state. She was sent into the emergency room last night from the facility due to coffee-grounds emesis. The patient unable to provide any further history. Most of the history obtained from provided medical records. The patient has been admitted to this hospital in the past and during a previous hospitalization, she was noted to be markedly bradycardic. She also has a history of seizures on Keppra. She was candidate for permanent pacemaker; however, the family declined pacemaker implant. The patient, however, did remain Full Code. At this time, she is nonverbal, unable answer any questions. BNP 342. Echo done 08/11/2020 normal EF, mild MR Allergies: Coded Allergies: PEANUT (Verified Allergy, Unknown, 09/22/16) Medication History Scheduled Acetaminophen (Acetaminophen), 640 MG GT MORNING, (Reported) Chlorhexidine Gluconate* (Hibiclens*), 15 ML PO TWICE A DAY, (Reported) Cran/Vitc/Mannose/Inulin/Brom (Uti-Stat Liquid), 30 ML GT BID, (Reported) Docusate Sodium* (Docusate Sodium*), 100 MG GT DAILY, (Reported) Ferrous Sulfate (Ferrous Sulfate), 7.5 ML GT BID, (Reported) Insulin Aspart (Novolog Flexpen), 0 SUBQ SLIDING SCALE, (Reported) Ipratropium/Albuterol Sulfate (Combivent Respimat Inhal [place]), 1 PUFF IH Q6HR, (Reported) Levetiracetam (Levetiracetam), 750 MG GT BID, (Reported) Levothyroxine Sodium* (Synthroid*), 150 MCG GT DAILY, (Reported) Multivitamin With Minerals (Apatate Forte), 15 ML GT DAILY, (Reported) Protein Supplement (Promod), 30 ML GT DAILY, (Reported) [vitamin c liquid], 500 MG GT DAILY, (Reported) Scheduled PRN Simethicone* (Simethicone*), 80 MG GT Q6HR PRN for GAS DISCOMFORT, (Reported) Discontinued Medications Levetiracetam (Keppra), 750 MG ORAL EVERY 12 HOURS Discontinued Reason: Therapy completed Patient History Limited by: medical condition History Provided By: Medical Record Healthcare decision maker Resuscitation status Advanced Directive on File Review of Systems All Other Systems: negative except mentioned in HPI ROS Narrative unable to obtain, pt is aphasic Physical Exam General Appearance: no apparent distress Lines, tubes and drains: trach HEENT: normocephalic Respiratory/Chest: no respiratory distress, no accessory muscle use Cardiovascular/Chest: regular rhythm, bradycardia Extremities: trace edema Neurologic: motor weakness, sensory deficit Last 24 Hour Vital Signs Date Time Temp Pulse Resp B/P (MAP) Pulse Ox O2 Delivery O2 Flow Rate FiO2 10/08/20 08:00 97.5 80 20 128/56 (80) 97 10/08/20 08:00 56 10/08/20 08:00 Mechanical Ventilator 10/08/20 08:00 30 10/08/20 04:00 97.5 80 20 128/56 (80) 97 10/08/20 04:00 30 10/08/20 04:00 56 10/08/20 04:00 Mechanical Ventilator 10/08/20 03:46 74 26 30 10/08/20 00:00 48 10/08/20 00:00 98.7 88 19 120/77 (91) 100 10/08/20 00:00 Mechanical Ventilator 10/07/20 20:00 30 10/07/20 20:00 97.7 82 19 137/88 (104) 95 10/07/20 20:00 Mechanical Ventilator 10/07/20 19:17 84 18 30 10/07/20 19:02 58 10/07/20 16:00 35 10/07/20 16:00 Mechanical Ventilator 10/07/20 16:00 35 10/07/20 16:00 35 10/07/20 16:00 98.2 77 19 129/53 (78) 98 10/07/20 16:00 Mechanical Ventilator 10/07/20 15:30 54 20 30 10/07/20 12:00 76 10/07/20 12:00 35 10/07/20 12:00 Mechanical Ventilator 10/07/20 12:00 97.9 75 22 131/64 (86) 99 10/07/20 11:26 73 20 30 Intake and Output 10/07/20 10/08/20 19:00 07:00 Intake Total 345 ml 670 ml Output Total 300 ml Balance 45 ml 670 ml Intake Free Water 170 ml 400 ml Tube Feeding 175 ml 270 ml Output Urine Total 300 ml # Bowel Movements 1 Laboratory Tests Test 10/07/20 11:43 10/07/20 17:36 10/07/20 22:00 10/08/20 00:27 POC Whole Blood Glucose Pending Pending 76 MG/DL (74-106) Stool Occult Blood Pending Test 10/08/20 03:40 10/08/20 05:23 White Blood Count 6.4 K/UL (4.8-10.8) Red Blood Count 3.20 M/UL (4.20-5.40) L Hemoglobin 10.2 G/DL (12.0-16.0) L Hematocrit 31.6 % (37.0-47.0) L Mean Corpuscular Volume 99 FL (80-99) Mean Corpuscular Hemoglobin 31.9 PG (27.0-31.0) H Mean Corpuscular Hemoglobin Concent 32.3 G/DL (32.0-36.0) Red Cell Distribution Width 15.1 % (11.6-14.8) H Platelet Count 145 K/UL (150-450) L Mean Platelet Volume 11.5 FL (6.5-10.1) H Neutrophils (%) (Auto) 62.8 % (45.0-75.0) Lymphocytes (%) (Auto) 21.0 % (20.0-45.0) Monocytes (%) (Auto) 11.0 % (1.0-10.0) H Eosinophils (%) (Auto) 4.5 % (0.0-3.0) H Basophils (%) (Auto) 0.6 % (0.0-2.0) Sodium Level 144 MMOL/L (136-145) Potassium Level 2.9 MMOL/L (3.5-5.1) L Chloride Level 108 MMOL/L (98-107) H Carbon Dioxide Level 29 MMOL/L (21-32) Anion Gap 7 mmol/L (5-15) Blood Urea Nitrogen 13 mg/dL (7-18) Creatinine 0.5 MG/DL (0.55-1.30) L Estimat Glomerular Filtration Rate > 60 mL/min (>60) Glucose Level 88 MG/DL (74-106) Calcium Level 9.1 MG/DL (8.5-10.1) Total Bilirubin 0.5 MG/DL (0.2-1.0) Aspartate Amino Transf (AST/SGOT) 19 U/L (15-37) Alanine Aminotransferase (ALT/SGPT) 16 U/L (12-78) Alkaline Phosphatase 110 U/L (46-116) Total Protein 7.7 G/DL (6.4-8.2) Albumin 2.8 G/DL (3.4-5.0) L Globulin 4.9 g/dL Albumin/Globulin Ratio 0.6 (1.0-2.7) L POC Whole Blood Glucose 85 MG/DL (74-106) Height (Feet): 5 Height (Inches): 6.00 Weight (Pounds): 214 Medications Current Medications Medications (Trade) Dose Ordered Sig/Boubacar Route PRN Reason Start Time Stop Time Status Last Admin Dose Admin Acetaminophen (Tylenol) 650 mg Q4H PRN GT Mild Pain (Pain Scale 1-3) 10/07/20 07:15 11/06/20 01:59 Acetaminophen (Tylenol) 650 mg Q4H PRN GT Temp >100.5 10/07/20 07:15 11/06/20 01:59 Albuterol/ Ipratropium (Combivent Respimat) 1 puff EVERY 3 HOURS PRN INH Shortness of Breath 10/07/20 02:00 11/06/20 01:59 Albuterol/ Ipratropium (Combivent Respimat) 1 puff Q6HRT INH 10/07/20 07:00 11/06/20 06:59 Ascorbic Acid (Vitamin C) 500 mg DAILY GT 10/07/20 09:00 11/06/20 08:59 10/07/20 08:56 Dextrose (Dextrose 50%) 25 ml Q30M PRN IV Hypoglycemia 10/07/20 19:30 01/05/21 19:29 Dextrose (Dextrose 50%) 50 ml Q30M PRN IV Hypoglycemia 10/07/20 19:30 01/05/21 19:29 Docusate Sodium (Colace) 100 mg DAILY GT 10/07/20 09:00 11/06/20 08:59 10/07/20 08:55 Ferrous Sulfate (Feosol) 300 mg BID GT 10/07/20 09:00 01/05/21 08:59 10/07/20 17:43 Insulin Aspart (NovoLOG) Inject as per sliding sca... Q6HR SUBQ 10/07/20 12:00 01/05/21 11:59 Levetiracetam (Keppra) 750 mg Q12HR GT 10/07/20 09:00 11/06/20 08:59 10/07/20 20:41 Levothyroxine Sodium (Synthroid) 150 mcg DAILY GT 10/07/20 09:00 11/06/20 08:59 10/07/20 08:56 Pantoprazole (Protonix) 40 mg DAILY IVP 10/08/20 09:00 11/07/20 08:59 Simethicone (Mylicon) 80 mg Q6H PRN GT GAS DISCOMFORT 10/07/20 02:00 01/05/21 01:59 Zinc Sulfate (Zinc Sulfate) 220 mg DAILY GT 10/07/20 09:00 10/12/20 09:00 10/07/20 08:56 Assessment/Plan Status: unchanged Assessment/Plan: 1. Coffee ground emesis 2. Sinus bradycardia 3. Respiratory failure s/p trach 4. s/p CVA, aphasic Not a candidate for PPM, will treat medically. In SR, rate at time of exam 40's. Remains full code. Penny Hatch PA-C Oct 08, 2020 09:17
--- NOTE | 2020-10-08 09:59 | NUR ---
CASE MANAGEMENT:REVIEW 10/08/20 SI: UGIB TRACH/VENT/GTUBE 97.5 56 20 128/56 97% ON VENT SUPPORT W/30% FIO2 H/H-10.2/31.6 PLT-145 NA-129 IS: 200CC NS BOLUS X2 HOURS IV KCL Q1HRS X2 BAGS KEPPRA GT Q12 SYNTHROID GT QD : STEP DOWN UNIT DCP: FROM [facility] PLAN: REGLAN HOLD GI PROCEDURES FOR NOW VENOUS DUPLEX CORRECT SODIUM
[2020-10-08] MEDS ORDERED: Sodium Chloride for KCL Premix x 2hrs IV SCH ×2 (10:00→11:15)
--- NOTE | 2020-10-08 10:20 | Consultation ---
Consult Note Consult Note NEUROLOGY CONSULTATION REQ MD: Dr. Hogan REASON FOR REFERRAL: Seizure Disorder DATE OF CONSULTATION: 10/08/2020 DATE OF : 1940 HISTORY OF PRESENT ILLNESS: This is an 80-year AA female patient with chronic trach placement who is respiratory dependent and vent dependent patient with vegetative state. She presented to ED for coffee-grounds emesis. The patient is non verbal and most of the information was obtained from the chart. She has a history of seizures and is on Keppra 750mg BID. No recent seizure reported. She also has history of cva is a quadriplegic and bed bound. I have reviewed retirement meds and diagnoses. We were consulted for seizure disorder, at this time patient is not able to partcipate with exam and not a good historian. MEDICATIONS:ferrous sulfate, Keppra, Synthroid, zinc, Protonix. ALLERGIES: Peanuts. PAST SURGICAL HISTORY: Chronic tracheostomy, chronic G-tube. PAST MEDICAL HISTORY: CVA, quadriplegia, anoxic brain injury, vent dependent, dysphagia REVIEW OF SYSTEMS: Unable to assess PHYSICAL EXAMINATION: GENERAL: Reveals an obese female, non communicative, lethargic VITAL SIGNS: Reviewed Neuro: The patient is lying in bed lethargic not able to participate in exam has left facial droop, pupils are round, equal, sluggish Motor: no involuntary movements bilateral upper and lower extremities unable to assess withdraws to pain bedbound patient. LABORATORY DATA: Reviewed IMAGING STUDIES: Abdominal pelvis CT was obtained, which shows distention of the colon, otherwise no pathology noted. She has basilar infiltrates. ASSESSMENT AND REC'S: 1. Seizure Disorder --> continue Keppra 750mg po BID she is getting 7.5ml via g tube --> no reported seizure recently --> reviewed meds from nursing facility --> seizure precautions 2. Chronic respiratory failure. --> she is on vent and dependent 3. Chronic G-tube for dysphagia 4. Quadraplegia 5.Chronic bradycardia. 6. Mild anemia. 7. Hx of CVA Thank you for allowing us to participate in patients care plan of care was reviewed with Dr. Pringle who agrees with plan of care Wanda Ramey NP Oct 08, 2020 10:20
--- NOTE | 2020-10-08 10:51 | Diagnostic Imaging Report ---
Indication:Leg pain and swelling Technique: Grayscale and duplex Doppler imaging of the veins in both lower extremities performed in real time utilizing compression and augmentation. Comparison: None Findings: Duplex Doppler interrogation of the veins in both lower extremity is performed from the common femoral vein to the popliteal vein. Normal venous compressibility demonstrated throughout. No thrombus identified. Waveform analysis shows good respiratory phasicity and augmentation. IMPRESSION: No evidence of deep venous thrombosis involving the visualized veins of the bilateral lower extremities.
--- NOTE | 2020-10-08 11:12 | Pulmonology Progress Note ---
Subjective ROS Limited/Unobtainable: No Constitutional: Reports: no symptoms HEENT: Repors: no symptoms Respiratory: Reports: no symptoms Cardiovascular: Reports: no symptoms Allergies: Coded Allergies: PEANUT (Verified Allergy, Unknown, 09/22/16) Objective Last 24 Hour Vital Signs Date Time Temp Pulse Resp B/P (MAP) Pulse Ox O2 Delivery O2 Flow Rate FiO2 10/08/20 08:00 97.5 80 20 128/56 (80) 97 10/08/20 08:00 56 10/08/20 08:00 Mechanical Ventilator 10/08/20 08:00 30 10/08/20 07:24 67 18 30 10/08/20 04:00 97.5 80 20 128/56 (80) 97 10/08/20 04:00 30 10/08/20 04:00 56 10/08/20 04:00 Mechanical Ventilator 10/08/20 03:46 74 26 30 10/08/20 00:00 48 10/08/20 00:00 98.7 88 19 120/77 (91) 100 10/08/20 00:00 Mechanical Ventilator 10/07/20 20:00 30 10/07/20 20:00 97.7 82 19 137/88 (104) 95 10/07/20 20:00 Mechanical Ventilator 10/07/20 19:17 84 18 30 10/07/20 19:02 58 10/07/20 16:00 35 10/07/20 16:00 Mechanical Ventilator 10/07/20 16:00 35 10/07/20 16:00 35 10/07/20 16:00 98.2 77 19 129/53 (78) 98 10/07/20 16:00 Mechanical Ventilator 10/07/20 15:30 54 20 30 10/07/20 12:00 76 10/07/20 12:00 35 10/07/20 12:00 Mechanical Ventilator 10/07/20 12:00 97.9 75 22 131/64 (86) 99 10/07/20 11:26 73 20 30 Intake and Output 10/07/20 10/08/20 19:00 07:00 Intake Total 345 ml 670 ml Output Total 300 ml Balance 45 ml 670 ml Intake Free Water 170 ml 400 ml Tube Feeding 175 ml 270 ml Output Urine Total 300 ml # Bowel Movements 1 General Appearance: no acute distress HEENT: atraumatic Respiratory: lungs clear Cardiovascular: normal rate Laboratory Tests 10/07/20 11:43: POC Whole Blood Glucose [Pending] 10/07/20 17:36: POC Whole Blood Glucose [Pending] 10/07/20 22:00: Stool Occult Blood [Pending] 10/08/20 00:27: POC Whole Blood Glucose 76 10/08/20 03:40: White Blood Count 6.4, Red Blood Count 3.20L, Hemoglobin 10.2L, Hematocrit 31.6L , Mean Corpuscular Volume 99, Mean Corpuscular Hemoglobin 31.9H, Mean Corpuscular Hemoglobin Concent 32.3, Red Cell Distribution Width 15.1H, Platelet Count 145L, Mean Platelet Volume 11.5H, Neutrophils (%) (Auto) 62.8, Lymphocytes (%) (Auto) 21.0, Monocytes (%) (Auto) 11.0H, Eosinophils (%) (Auto) 4.5H, Basophils (%) (Auto) 0.6, Sodium Level 144, Potassium Level 2.9L, Chloride Level 108H, Carbon Dioxide Level 29, Anion Gap 7, Blood Urea Nitrogen 13, Creatinine 0.5L, Estimat Glomerular Filtration Rate > 60, Glucose Level 88, Calcium Level 9.1, Total Bilirubin 0.5, Aspartate Amino Transf (AST/SGOT) 19, Alanine Aminotransferase (ALT/SGPT) 16, Alkaline Phosphatase 110, Total Protein 7.7, Albumin 2.8L, Globulin 4.9, Albumin/Globulin Ratio 0.6L 10/08/20 05:23: POC Whole Blood Glucose 85 Current Medications Medications (Trade) Dose Ordered Sig/Boubacar Route PRN Reason Start Time Stop Time Status Last Admin Dose Admin Acetaminophen (Tylenol) 650 mg Q4H PRN GT Mild Pain (Pain Scale 1-3) 10/07/20 07:15 11/06/20 01:59 Acetaminophen (Tylenol) 650 mg Q4H PRN GT Temp >100.5 10/07/20 07:15 11/06/20 01:59 Albuterol/ Ipratropium (Combivent Respimat) 1 puff EVERY 3 HOURS PRN INH Shortness of Breath 10/07/20 02:00 11/06/20 01:59 Albuterol/ Ipratropium (Combivent Respimat) 1 puff Q6HRT INH 10/07/20 07:00 11/06/20 06:59 Ascorbic Acid (Vitamin C) 500 mg DAILY GT 10/07/20 09:00 11/06/20 08:59 10/08/20 09:00 Dextrose (Dextrose 50%) 25 ml Q30M PRN IV Hypoglycemia 10/07/20 19:30 01/05/21 19:29 Dextrose (Dextrose 50%) 50 ml Q30M PRN IV Hypoglycemia 10/07/20 19:30 01/05/21 19:29 Docusate Sodium (Colace) 100 mg DAILY GT 10/07/20 09:00 11/06/20 08:59 10/08/20 09:00 Ferrous Sulfate (Feosol) 300 mg BID GT 10/07/20 09:00 01/05/21 08:59 10/08/20 09:00 Insulin Aspart (NovoLOG) Inject as per sliding sca... Q6HR SUBQ 10/07/20 12:00 01/05/21 11:59 Levetiracetam (Keppra) 750 mg Q12HR GT 10/07/20 09:00 11/06/20 08:59 10/08/20 09:00 Levothyroxine Sodium (Synthroid) 150 mcg DAILY GT 10/07/20 09:00 11/06/20 08:59 10/08/20 09:00 Pantoprazole (Protonix) 40 mg DAILY IVP 10/08/20 09:00 11/07/20 08:59 10/08/20 09:00 Potassium Chloride 100 ml @ 100 mls/hr Q1H IVPB 10/08/20 11:15 10/08/20 13:14 Simethicone (Mylicon) 80 mg Q6H PRN GT GAS DISCOMFORT 10/07/20 02:00 01/05/21 01:59 Sodium Chloride 200 ml @ 100 mls/hr Q2H IV 10/08/20 11:15 10/08/20 13:14 Zinc Sulfate (Zinc Sulfate) 220 mg DAILY GT 10/07/20 09:00 10/12/20 09:00 10/08/20 09:00 Assessment/Plan Assessment/Plan 1. Chronic respiratory failure. 2. Chronic G-tube. - G tube replacement today 3. Seizure disorder. 4. Chronic bradycardia. 5. Mild anemia. - stool OB pending 6. Full Code. 7. Hypokalemia DISCUSSION: 1. Continue Keppra. 2. Continue current vent settings, FiO2 is at 35%. 3. We will consult GI for history of coffee-grounds emesis. 4. Continue home medications. 5. We will again involve Cardiology given the bradycardia. 6. We will follow carefully. 7. Carlo Martinez Oct 08, 2020 11:12
[2020-10-08 12:00] VITALS: BP 128/56
--- NOTE | 2020-10-08 12:50 | General Progress Note ---
Subjective ROS Limited/Unobtainable: No Allergies: Coded Allergies: PEANUT (Verified Allergy, Unknown, 09/22/16) Objective Last 24 Hour Vital Signs Date Time Temp Pulse Resp B/P (MAP) Pulse Ox O2 Delivery O2 Flow Rate FiO2 10/08/20 12:00 56 10/08/20 12:00 Mechanical Ventilator 10/08/20 12:00 97.5 80 20 128/56 (80) 97 10/08/20 12:00 30 10/08/20 08:00 97.5 80 20 128/56 (80) 97 10/08/20 08:00 56 10/08/20 08:00 Mechanical Ventilator 10/08/20 08:00 30 10/08/20 07:24 67 18 30 10/08/20 04:00 97.5 80 20 128/56 (80) 97 10/08/20 04:00 30 10/08/20 04:00 56 10/08/20 04:00 Mechanical Ventilator 10/08/20 03:46 74 26 30 10/08/20 00:00 48 10/08/20 00:00 98.7 88 19 120/77 (91) 100 10/08/20 00:00 Mechanical Ventilator 10/07/20 20:00 30 10/07/20 20:00 97.7 82 19 137/88 (104) 95 10/07/20 20:00 Mechanical Ventilator 10/07/20 19:17 84 18 30 10/07/20 19:02 58 10/07/20 16:00 35 10/07/20 16:00 Mechanical Ventilator 10/07/20 16:00 35 10/07/20 16:00 35 10/07/20 16:00 98.2 77 19 129/53 (78) 98 10/07/20 16:00 Mechanical Ventilator 10/07/20 15:30 54 20 30 Intake and Output 10/07/20 10/08/20 19:00 07:00 Intake Total 345 ml 670 ml Output Total 300 ml Balance 45 ml 670 ml Intake Free Water 170 ml 400 ml Tube Feeding 175 ml 270 ml Output Urine Total 300 ml # Bowel Movements 1 Laboratory Tests 10/07/20 17:36: POC Whole Blood Glucose [Pending] 10/07/20 22:00: Stool Occult Blood Negative 10/08/20 00:27: POC Whole Blood Glucose 76 10/08/20 03:40: White Blood Count 6.4, Red Blood Count 3.20L, Hemoglobin 10.2L, Hematocrit 31.6L , Mean Corpuscular Volume 99, Mean Corpuscular Hemoglobin 31.9H, Mean Corpuscular Hemoglobin Concent 32.3, Red Cell Distribution Width 15.1H, Platelet Count 145L, Mean Platelet Volume 11.5H, Neutrophils (%) (Auto) 62.8, Lym phocytes (%) (Auto) 21.0, Monocytes (%) (Auto) 11.0H, Eosinophils (%) (Auto) 4.5H, Basophils (%) (Auto) 0.6, Sodium Level 144, Potassium Level 2.9L, Chloride Level 108H, Carbon Dioxide Level 29, Anion Gap 7, Blood Urea Nitrogen 13, Creatinine 0.5L, Estimat Glomerular Filtration Rate > 60, Glucose Level 88, Calcium Level 9.1, Total Bilirubin 0.5, Aspartate Amino Transf (AST/SGOT) 19, Alanine Aminotransferase (ALT/SGPT) 16, Alkaline Phosphatase 110, Total Protein 7.7, Albumin 2.8L, Globulin 4.9, Albumin/Globulin Ratio 0.6L 10/08/20 05:23: POC Whole Blood Glucose 85 10/08/20 12:35: POC Whole Blood Glucose 100 Height (Feet): 5 Height (Inches): 6.00 Weight (Pounds): 214 General Appearance: no apparent distress EENT: normal ENT inspection Neck: supple Cardiovascular: normal rate Respiratory/Chest: decreased breath sounds Abdomen: normal bowel sounds, non tender, soft Extremities: non-tender Assessment/Plan Assessment/Plan: Assessment/Plan: 1. History of asthma. 2. History of COPD. 3. History of CVA. 4. History of dysphagia with G-tube. 5. Respiratory failure with chronic trach. 6. History of seizure disorder. 7. Hypertension. 8. Diabetes. 9. Diverticulosis. 10. History of encephalopathy. 11. coffee ground emesis stable H&H since 08/2020 GTF reglan ppi labs in am neg stool ob hold GI procedures for now Wilmer Cardenas MD Oct 08, 2020 12:50
--- NOTE | 2020-10-08 14:26 | NUR ---
INSURANCE CLINICALS/REVIEW FAXED TO [facility] Fax clinicals: [phone] Scan (Dwight Oshea) Fax clinicals: [phone]
[2020-10-08 16:00] VITALS: BP 127/54
--- NOTE | 2020-10-08 19:15 | NUR ---
NURSE NOTES: Received patient from [facility] under the care of Dr. Hogan for the admitting dx opf coffee ground emesis and chronic respiratory failure. Noted allergy to peanuts and full code status. Patient is alert x1 but non verbal. Eyes are open and tracks, able to follow simple commands to best of ability. Patient tolerating vent settings well with no acute distress noted. Will continue to monitor.
[2020-10-08 20:00] VITALS: BP 124/60
--- NOTE | 2020-10-08 21:00 | NUR ---
NURSE NOTES: Patient is awake. TV is on for stimulation. No acute distress noted. Tolerating vent settings well. Will continue to monitor.
[2020-10-09] VITALS: BP 123/54
--- NOTE | 2020-10-09 | NUR ---
NURSE NOTES: Patient noted asleep and trending bradycardia on the bale sewer. Patient aroused and HR bounced up to SR. Will continue to monitor.
--- NOTE | 2020-10-09 03:00 | NUR ---
NURSE NOTES: Patient noted trending down to bradycardia (40's), Assessed patient noted her to be asleep. Woke her up and her HR went up to NSR. Will continue to monitor.
[2020-10-09 04:00] VITALS: BP 128/56
[2020-10-09] MEDS: NovoLOG Insulin Flexpen SUBQ SCH ×4 (06:00→17:12)
--- NOTE | 2020-10-09 06:00 | NUR ---
NURSE NOTES: Accucheck noted WNL. No coverage needed. Will continue to monitor.
--- NOTE | 2020-10-09 07:30 | NUR ---
NURSE NOTES: Received pt from [facility], pt is awake and confused, pt has trach to hansel AC 18 TV 450 FIO2 30% PEEP 5, Pt has g tube in place is working well. pt has Newman cath in place is working well. pt is on continues heart monitoring. pt has intact iv access LFA 20G SL and RH 20G SL. Dr Hatch visited pt and is aware HR 40, NNO. all needs attended, bed is locked and is in the lowest position, call light within easy reach. will continue to monitor.
--- NOTE | 2020-10-09 07:31 | NUR ---
NURSE HAND-OFF REPORT: Important Events on Shift: Patient Status: Stable Diet: GT Pending Orders: Pending Results/Labs: Pending MD notification: Latest Vital Signs: Temperature 97.5 , Pulse 83 , B/P 128 /56 , Respiratory Rate 20 , O2 SAT 97 , Mechanical Ventilator, O2 Flow Rate . Vital Sign Comment: Bradycardia when asleep EKG Rhythm: SBw/BBB, 1st degree Rhythm change?: N MD Notified?: Fany FLORES MD Response: Message left await call Latest Davis Fall Score: 30 Fall Risk: Medium Risk Safety Measures: Call light Within Reach, Bed Alarm Zone 2, Side Rails Side Rails x2, Bed position Low and Locked. Fall Precautions: Yellow Socks Report given to [facility].
[2020-10-09 08:00] VITALS: BP 132/54
[2020-10-09] MEDS: levETIRAcetam 500mg/5ml Liquid GT SCH ×2 (09:01→21:39)
[2020-10-09] MEDS: Docusate 100mg/10ml Liq GT SCH (09:01)
[2020-10-09] MEDS: Ascorbic Acid 500mg tab GT SCH (09:01)
[2020-10-09] MEDS: Ferrous Sulfate 300 MG/5 ML UDC GT SCH ×2 (09:01→17:21)
[2020-10-09] MEDS: Zinc Sulfate 220mg GT SCH (09:01)
[2020-10-09] MEDS: Pantoprazole Inj IVP SCH (09:01)
--- NOTE | 2020-10-09 10:58 | Neurology Progress Note ---
Interim History Interim History ROS Limited/Unobtainable: No Events: no acute events Objective Physical Exam Last Vital Signs Date Time Temp Pulse Resp B/P (MAP) Pulse Ox O2 Delivery O2 Flow Rate FiO2 10/09/20 08:41 33 10/09/20 08:00 30 10/09/20 08:00 Mechanical Ventilator 10/09/20 08:00 96.8 23 132/54 (80) 99 Laboratory Tests Test 10/08/20 12:35 10/08/20 17:59 10/08/20 23:57 10/09/20 05:51 POC Whole Blood Glucose 100 MG/DL (74-106) Pending 80 MG/DL (74-106) 87 MG/DL (74-106) Neurologic Exam Objective PHYSICAL EXAMINATION: GENERAL: Reveals an obese female, non communicative, lethargic VITAL SIGNS: Reviewed Neuro: The patient is lying in bed lethargic not able to participate in exam has left facial droop, pupils are round, equal, sluggish Motor: no involuntary movements bilateral upper and lower extremities unable to assess withdraws to pain bedbound patient. Impression/Recommendations Diagnostic Impression IMAGING STUDIES: Abdominal pelvis CT was obtained, which shows distention of the colon, otherwise no pathology noted. She has basilar infiltrates. ASSESSMENT AND REC'S: 1. Seizure Disorder --> continue Keppra 750mg po BID she is getting 7.5ml via g tube --> no reported seizure recently --> reviewed meds from nursing facility --> seizure precautions 2. Chronic respiratory failure. --> she is on vent and dependent 3. Chronic G-tube for dysphagia 4. Quadraplegia 5.Chronic bradycardia. 6. Mild anemia. 7. Hx of CVA Thank you for allowing us to participate in patients care plan of care was reviewed with Dr. Pringle who agrees with plan of care Wanda Ramey NP Oct 09, 2020 10:58
[2020-10-09 12:00] VITALS: BP 132/57
--- NOTE | 2020-10-09 12:09 | NUR ---
CASE MANAGEMENT:REVIEW 10/09/20 SI: UGIB. COFFEE GROUND EMESIS TRACH/VENT/GTUBE 96.8 55 23 132/54 99% ON VENT SUPPORT W/30% FIO2 IS: IV PROTONIX QD ZINC GT QD VIT C GT QD IRON GT BID KEPPRA GT Q12 SYNTHROID GT QD DUONEB INH Q6HRS RTC : STEP DOWN UNIT DCP: FROM [facility]
--- NOTE | 2020-10-09 12:41 | General Progress Note ---
Subjective ROS Limited/Unobtainable: No Allergies: Coded Allergies: PEANUT (Verified Allergy, Unknown, 09/22/16) Objective Last 24 Hour Vital Signs Date Time Temp Pulse Resp B/P (MAP) Pulse Ox O2 Delivery O2 Flow Rate FiO2 10/09/20 12:00 Mechanical Ventilator 10/09/20 12:00 30 10/09/20 12:00 97.5 78 25 132/57 (82) 98 10/09/20 11:44 81 10/09/20 08:41 33 10/09/20 08:07 55 10/09/20 08:00 30 10/09/20 08:00 Mechanical Ventilator 10/09/20 08:00 96.8 69 23 132/54 (80) 99 10/09/20 07:50 46 18 30 10/09/20 04:00 Mechanical Ventilator 10/09/20 04:00 97.5 80 20 128/56 (80) 97 10/09/20 04:00 83 10/09/20 04:00 30 10/09/20 03:57 75 20 30 10/09/20 00:00 98.0 58 20 123/54 (77) 97 10/09/20 00:00 Mechanical Ventilator 10/08/20 23:45 82 24 30 10/08/20 20:00 30 10/08/20 20:00 97.9 70 20 124/60 (81) 97 10/08/20 20:00 Mechanical Ventilator 10/08/20 20:00 52 10/08/20 19:17 61 20 30 10/08/20 16:00 56 10/08/20 16:00 30 10/08/20 16:00 Mechanical Ventilator 10/08/20 16:00 127/54 (78) 10/08/20 15:38 87 18 30 l Intake and Output 10/08/20 10/09/20 19:00 07:00 Intake Total 1000 ml 550 ml Output Total 435 ml 500 ml Balance 565 ml 50 ml IV Total 500 ml Tube Feeding 500 ml 550 ml Output Urine Total 235 ml 500 ml Stool Total 200 ml Laboratory Tests 10/08/20 17:59: POC Whole Blood Glucose [Pending] 10/08/20 23:57: POC Whole Blood Glucose 80 10/09/20 05:51: POC Whole Blood Glucose 87 10/09/20 11:59: POC Whole Blood Glucose [Pending] Height (Feet): 5 Height (Inches): 6.00 Weight (Pounds): 214 General Appearance: no apparent distress EENT: normal ENT inspection Neck: supple Cardiovascular: normal rate Respiratory/Chest: decreased breath sounds Abdomen: normal bowel sounds, non tender, soft Extremities: non-tender Assessment/Plan Assessment/Plan: Assessment/Plan: 1. History of asthma. 2. History of COPD. 3. History of CVA. 4. History of dysphagia with G-tube. 5. Respiratory failure with chronic trach. 6. History of seizure disorder. 7. Hypertension. 8. Diabetes. 9. Diverticulosis. 10. History of encephalopathy. 11. coffee ground emesis stable H&H since 08/2020 GTF reglan ppi labs in am neg stool ob hold GI procedures for now Wilmer Cardenas MD Oct 09, 2020 12:41
--- NOTE | 2020-10-09 13:11 | NUR ---
NURSE NOTES: SANDRA Park visited pt and is aware about MRSA, VRE, and pt is still in covid isolation, NNO, PA will F/U. Will continue to monitor.
--- NOTE | 2020-10-09 14:04 | Cardiology Progress Note ---
Assessment/Plan Status: stable Assessment/Plan 1. Coffee ground emesis Hgb has been stable 2. Sinus bradycardia 3. Respiratory failure s/p trach 4. HFpEF, acute on chronic diastolic HF with preserved EF 55%, mild MR BNP 388 Diuresis with IV Lasix spot dose 5. Seizure disorder 6. s/p CVA, aphasic Not a candidate for PPM, will treat medically. In SR, rate at time of exam 40's. Remains full code. Subjective ROS Limited/Unobtainable: Yes Subjective Resting comfortably, no acute events Objective Last 24 Hour Vital Signs Date Time Temp Pulse Resp B/P (MAP) Pulse Ox O2 Delivery O2 Flow Rate FiO2 10/09/20 12:00 Mechanical Ventilator 10/09/20 12:00 30 10/09/20 12:00 97.5 78 25 132/57 (82) 98 10/09/20 11:44 81 10/09/20 08:41 33 10/09/20 08:07 55 10/09/20 08:00 30 10/09/20 08:00 Mechanical Ventilator 10/09/20 08:00 96.8 69 23 132/54 (80) 99 10/09/20 07:50 46 18 30 10/09/20 04:00 Mechanical Ventilator 10/09/20 04:00 97.5 80 20 128/56 (80) 97 10/09/20 04:00 83 10/09/20 04:00 30 10/09/20 03:57 75 20 30 10/09/20 00:00 98.0 58 20 123/54 (77) 97 10/09/20 00:00 Mechanical Ventilator 10/08/20 23:45 82 24 30 10/08/20 20:00 30 10/08/20 20:00 97.9 70 20 124/60 (81) 97 10/08/20 20:00 Mechanical Ventilator 10/08/20 20:00 52 10/08/20 19:17 61 20 30 10/08/20 16:00 56 10/08/20 16:00 30 10/08/20 16:00 Mechanical Ventilator 10/08/20 16:00 127/54 (78) 10/08/20 15:38 87 18 30 General Appearance: no apparent distress Neck: no JVD Rhythm: NSR Cardiovascular: bradycardia Respiratory/Chest: no respiratory distress, no accessory muscle use Extremities: trace edema Neurologic: motor weakness, sensory deficit Intake and Output 10/08/20 10/09/20 19:00 07:00 Intake Total 1000 ml 550 ml Output Total 435 ml 500 ml Balance 565 ml 50 ml IV Total 500 ml Tube Feeding 500 ml 550 ml Output Urine Total 235 ml 500 ml Stool Total 200 ml Laboratory Tests Test 10/08/20 17:59 10/08/20 23:57 10/09/20 05:51 10/09/20 11:59 POC Whole Blood Glucose Pending 80 MG/DL (74-106) 87 MG/DL (74-106) Pending Microbiology Date/Time Source Procedure Growth Status 10/06/20 20:35 Rectum - Final NO CARBAPENEM-RESISTANT ENTEROBACTERI... Complete 10/06/20 20:35 Rectum VRE Culture - Final Enterococcus Faecium - Vre Complete 10/06/20 20:35 Nasal Nares MRSA Culture - Final Staphylococcus Aureus - Mrsa Complete 10/06/20 20:33 Nasopharynx Coronavirus COVID-19 PCR ([facility]) - Final Complete 10/06/20 20:25 Blood Blood Culture - Preliminary NO GROWTH AFTER 48 HOURS Resulted 10/06/20 20:05 Blood Blood Culture - Preliminary NO GROWTH AFTER 48 HOURS Resulted Penny Hatch PA-C Oct 09, 2020 14:04
--- NOTE | 2020-10-09 15:20 | Pulmonology Progress Note ---
Subjective ROS Limited/Unobtainable: Yes Constitutional: Reports: no symptoms HEENT: Repors: no symptoms Respiratory: Reports: no symptoms Cardiovascular: Reports: no symptoms Allergies: Coded Allergies: PEANUT (Verified Allergy, Unknown, 09/22/16) Objective Last 24 Hour Vital Signs Date Time Temp Pulse Resp B/P (MAP) Pulse Ox O2 Delivery O2 Flow Rate FiO2 10/09/20 12:00 Mechanical Ventilator 10/09/20 12:00 30 10/09/20 12:00 97.5 78 25 132/57 (82) 98 10/09/20 11:44 81 10/09/20 08:41 33 10/09/20 08:07 55 10/09/20 08:00 30 10/09/20 08:00 Mechanical Ventilator 10/09/20 08:00 96.8 69 23 132/54 (80) 99 10/09/20 07:50 46 18 30 10/09/20 04:00 Mechanical Ventilator 10/09/20 04:00 97.5 80 20 128/56 (80) 97 10/09/20 04:00 83 10/09/20 04:00 30 10/09/20 03:57 75 20 30 10/09/20 00:00 98.0 58 20 123/54 (77) 97 10/09/20 00:00 Mechanical Ventilator 10/08/20 23:45 82 24 30 10/08/20 20:00 30 10/08/20 20:00 97.9 70 20 124/60 (81) 97 10/08/20 20:00 Mechanical Ventilator 10/08/20 20:00 52 10/08/20 19:17 61 20 30 10/08/20 16:00 56 10/08/20 16:00 30 10/08/20 16:00 Mechanical Ventilator 10/08/20 16:00 127/54 (78) 10/08/20 15:38 87 18 30 Intake and Output 10/08/20 10/09/20 19:00 07:00 Intake Total 1000 ml 550 ml Output Total 435 ml 500 ml Balance 565 ml 50 ml IV Total 500 ml Tube Feeding 500 ml 550 ml Output Urine Total 235 ml 500 ml Stool Total 200 ml General Appearance: no acute distress HEENT: atraumatic Respiratory: lungs clear Cardiovascular: normal rate Microbiology Date/Time Source Procedure Growth Status 10/06/20 20:35 Rectum - Final NO CARBAPENEM-RESISTANT ENTEROBACTERI... Complete 10/06/20 20:35 Rectum VRE Culture - Final Enterococcus Faecium - Vre Complete 10/06/20 20:35 Nasal Nares MRSA Culture - Final Staphylococcus Aureus - Mrsa Complete 10/06/20 20:33 Nasopharynx Coronavirus COVID-19 PCR ([facility]) - Final Complete 10/06/20 20:25 Blood Blood Culture - Preliminary NO GROWTH AFTER 48 HOURS Resulted 10/06/20 20:05 Blood Blood Culture - Preliminary NO GROWTH AFTER 48 HOURS Resulted Laboratory Tests 10/08/20 17:59: POC Whole Blood Glucose [Pending] 10/08/20 23:57: POC Whole Blood Glucose 80 10/09/20 05:51: POC Whole Blood Glucose 87 10/09/20 11:59: POC Whole Blood Glucose [Pending] Current Medications Medications (Trade) Dose Ordered Sig/Boubacar Route PRN Reason Start Time Stop Time Status Last Admin Dose Admin Acetaminophen (Tylenol) 650 mg Q4H PRN GT Mild Pain (Pain Scale 1-3) 10/07/20 07:15 11/06/20 01:59 Acetaminophen (Tylenol) 650 mg Q4H PRN GT Temp >100.5 10/07/20 07:15 11/06/20 01:59 Albuterol/ Ipratropium (Combivent Respimat) 1 puff EVERY 3 HOURS PRN INH Shortness of Breath 10/07/20 02:00 11/06/20 01:59 Albuterol/ Ipratropium (Combivent Respimat) 1 puff Q6HRT INH 10/07/20 07:00 11/06/20 06:59 Ascorbic Acid (Vitamin C) 500 mg DAILY GT 10/07/20 09:00 11/06/20 08:59 10/09/20 09:01 Dextrose (Dextrose 50%) 25 ml Q30M PRN IV Hypoglycemia 10/07/20 19:30 01/05/21 19:29 Dextrose (Dextrose 50%) 50 ml Q30M PRN IV Hypoglycemia 10/07/20 19:30 01/05/21 19:29 Docusate Sodium (Colace) 100 mg DAILY GT 10/07/20 09:00 11/06/20 08:59 10/09/20 09:01 Ferrous Sulfate (Feosol) 300 mg BID GT 10/07/20 09:00 01/05/21 08:59 10/09/20 09:01 Insulin Aspart (NovoLOG) Inject as per sliding sca... Q6HR SUBQ 10/07/20 12:00 01/05/21 11:59 Levetiracetam (Keppra) 750 mg Q12HR GT 10/07/20 09:00 11/06/20 08:59 10/09/20 09:01 Levothyroxine Sodium (Synthroid) 150 mcg DAILY GT 10/07/20 09:00 11/06/20 08:59 10/09/20 09:01 Pantoprazole (Protonix) 40 mg DAILY IVP 10/08/20 09:00 11/07/20 08:59 10/09/20 09:01 Simethicone (Mylicon) 80 mg Q6H PRN GT GAS DISCOMFORT 10/07/20 02:00 01/05/21 01:59 Zinc Sulfate (Zinc Sulfate) 220 mg DAILY GT 10/07/20 09:00 10/12/20 09:00 10/09/20 09:01 Assessment/Plan Assessment/Plan 1. Chronic respiratory failure. 2. Chronic G-tube. - G tube replaced 3. Seizure disorder. 4. Chronic bradycardia. 5. Mild anemia. - stool OB negative 6. Full Code. 7. Hypokalemia 8. COVID-19 negative 9. Coffee ground emesis - Stable H&H - Further GI procedure on hold per GI DISCUSSION: 1. Continue Keppra. 2. Continue current vent settings, FiO2 is at 35%. 3. We will consult GI for history of coffee-grounds emesis. 4. Continue home medications. 5. We will again involve Cardiology given the bradycardia. 6. We will follow carefully. 7. Replaced K Dw daughter Laura Bowling. Pt to be discharged back to SNF once cleared by GI. No code status change. The care for this patient was discussed with my supervising physician Time spent for this case was approximately 31 minutes Carlo Park Oct 09, 2020 15:20
[2020-10-09 15:32] VITALS: BP 129/63
--- NOTE | 2020-10-09 17:10 | NUR ---
INSURANCE CLINICALS/REVIEW FAXED TO [facility] Fax clinicals: [phone] Scan (Dwight Oshea) Fax clinicals: [phone]
--- NOTE | 2020-10-09 17:12 | NUR ---
*-*DISCHARGE PLANNING*-* PATIENT HAS BEEN ACCEPTED BACK TO: [facility] P: [phone] ROOM# 217.A ~~~~~~~~~~~~~~~~~~~~~~DISCHARGE ORDER PENDING~~~~~~~~~~~~~~~~~
--- NOTE | 2020-10-09 19:22 | NUR ---
NURSE HAND-OFF REPORT: Important Events on Shift: Patient Status: Diet: Pending Orders: Pending Results/Labs: Pending MD notification: Latest Vital Signs: Temperature 99.5 , Pulse 79 , B/P 129 /63 , Respiratory Rate 20 , O2 SAT 97 , Mechanical Ventilator, O2 Flow Rate . Vital Sign Comment: EKG Rhythm: SR,BBB Rhythm change?: N MD Notified?: Y -Dr Holden BROWN Response: No New Orders Received Latest Davis Fall Score: 30 Fall Risk: Medium Risk Safety Measures: Call light Within Reach, Bed Alarm Zone 2, Side Rails Side Rails x2, Bed position Low and Locked. Fall Precautions: Yellow Socks Report given to . Pt is awake and stable, no stress noted, endorsed plan of care, endorsed to monitor spo2 and HR.
[2020-10-09 20:00] VITALS: BP 147/72
[2020-10-10] VITALS (7 sets, daily range): BP systolic 105–151; BP diastolic 47–83
[2020-10-10 05:47] LABS: BASOPHILS % (AUTO) 0.8 % (0.0-2.0); EOSINOPHILS % (AUTO) 5.1 % (0.0-3.0); HEMATOCRIT 37.1 % (37.0-47.0); HEMOGLOBIN 11.7 G/DL (12.0-16.0); LYMPHOCYTES % (AUTO) 23.1 % (20.0-45.0); MEAN CORPUSCULAR VOLUME 102 FL (80-99); PLATELET COUNT 146 K/UL (150-450); RED BLOOD COUNT 3.64 M/UL (4.20-5.40); WHITE BLOOD COUNT 6.5 K/UL (4.8-10.8)
[2020-10-10] MEDS: NovoLOG Insulin Flexpen SUBQ SCH ×5 (06:00→23:52)
[2020-10-10 06:12] LABS: ANION GAP 4 mmol/L (5-15); BLOOD UREA NITROGEN 21 mg/dL (7-18); CALCIUM 9.7 MG/DL (8.5-10.1); CARBON DIOXIDE 32 MMOL/L (21-32); CHLORIDE 109 MMOL/L (98-107); CREATININE 0.6 MG/DL (0.55-1.30); POTASSIUM 4.1 MMOL/L (3.5-5.1); SODIUM 145 MMOL/L (136-145)
--- NOTE | 2020-10-10 07:20 | NUR ---
NURSE NOTES: Received patient report from [facility]. Patient is AOx0 in bed, asleep at this time. Patient is trach to vent Shiley 7 AC 14 TV 500 FiO2 40% PEEP 5, breathing is even and unlabored with no signs of respiratory distress. No pain or discomfort noted at this time. Patient has RFA 22G Saline lock, Patent and intact. Bed in lowest position, locked with side rails x2 up. Call light within reach.
[2020-10-10] MEDS: Zinc Sulfate 220mg GT SCH (08:17)
[2020-10-10] MEDS: levETIRAcetam 500mg/5ml Liquid GT SCH ×2 (08:17→20:01)
[2020-10-10] MEDS: Ferrous Sulfate 300 MG/5 ML UDC GT SCH ×2 (08:17→17:35)
[2020-10-10] MEDS: Ascorbic Acid 500mg tab GT SCH (08:17)
[2020-10-10] MEDS: Pantoprazole Inj IVP SCH (08:18)
[2020-10-10] MEDS: Docusate 100mg/10ml Liq GT SCH (08:18)
--- NOTE | 2020-10-10 08:39 | General Progress Note ---
Subjective ROS Limited/Unobtainable: No Allergies: Coded Allergies: PEANUT (Verified Allergy, Unknown, 09/22/16) Objective Last 24 Hour Vital Signs Date Time Temp Pulse Resp B/P (MAP) Pulse Ox O2 Delivery O2 Flow Rate FiO2 10/10/20 05:18 73 18 30 10/10/20 04:35 79 10/10/20 04:35 30 10/10/20 04:00 Mechanical Ventilator 10/10/20 04:00 44 10/10/20 04:00 97.7 73 18 145/63 (90) 95 10/10/20 01:10 67 18 30 10/10/20 00:00 30 10/10/20 00:00 99.3 59 20 126/83 (97) 94 10/10/20 00:00 47 10/10/20 00:00 Mechanical Ventilator 10/09/20 23:10 60 18 30 10/09/20 20:06 56 20 30 10/09/20 20:00 62 10/09/20 20:00 99.5 94 20 147/72 (97) 93 10/09/20 20:00 Mechanical Ventilator 10/09/20 20:00 30 10/09/20 16:00 79 10/09/20 16:00 Mechanical Ventilator 10/09/20 16:00 30 10/09/20 15:32 99.5 95 20 129/63 (85) 97 10/09/20 15:22 71 21 30 10/09/20 12:00 Mechanical Ventilator 10/09/20 12:00 30 10/09/20 12:00 97.5 78 25 132/57 (82) 98 10/09/20 11:44 81 10/09/20 11:40 73 23 30 10/09/20 08:41 33 Intake and Output 10/09/20 10/10/20 19:00 07:00 Intake Total 800 ml 750 ml Output Total 400 ml 400 ml Balance 400 ml 350 ml Intake Oral 200 ml 200 ml Free Water 0 ml Tube Feeding 600 ml 550 ml Output Urine Total 400 ml 400 ml # Bowel Movements 1 Laboratory Tests 10/09/20 11:59: POC Whole Blood Glucose [Pending] 10/09/20 16:19: POC Whole Blood Glucose 95 10/09/20 19:51: POC Whole Blood Glucose 86 10/09/20 23:41: POC Whole Blood Glucose 94 10/10/20 04:40: White Blood Count 6.5, Red Blood Count 3.64L, Hemoglobin 11.7L, Hematocrit 37.1, Mean Corpuscular Volume 102H, Mean Corpuscular Hemoglobin 32.1H, Mean Corpuscular Hemoglobin Concent 31.4L, Red Cell Distribution Width 15.0H, Platelet Count 146L, Mean Platelet Volume 12.5H, Neutrophils (%) (Auto) 62.0, Lymphocytes (%) (Auto) 23.1, Monocytes (%) (Auto) 9.0, Eosinophils (%) (Auto) 5.1H, Basophils (%) (Auto) 0.8, Sodium Level 145, Potassium Level 4.1, Chloride Level 109H, Carbon Dioxide Level 32, Anion Gap 4L, Blood Urea Nitrogen 21H, Creatinine 0.6, Estimat Glomerular Filtration Rate > 60, Glucose Level 92, Calcium Level 9.7 10/10/20 05:27: POC Whole Blood Glucose 103 Height (Feet): 5 Height (Inches): 6.00 Weight (Pounds): 214 General Appearance: no apparent distress EENT: PERRL/EOMI Neck: supple Cardiovascular: normal rate Respiratory/Chest: decreased breath sounds Abdomen: normal bowel sounds, non tender, soft Extremities: non-tender Assessment/Plan Status: stable Assessment/Plan: Assessment/Plan: 1. History of asthma. 2. History of COPD. 3. History of CVA. 4. History of dysphagia with G-tube. 5. Respiratory failure with chronic trach. 6. History of seizure disorder. 7. Hypertension. 8. Diabetes. 9. Diverticulosis. 10. History of encephalopathy. 11. coffee ground emesis stable H&H since 08/2020 GTF reglan ppi labs in am neg stool ob hold GI procedures for now Wilmer Cardenas MD Oct 10, 2020 08:39
--- NOTE | 2020-10-10 09:14 | NUR ---
RD ASSESSMENT & RECOMMENDATIONS SEE CARE ACTIVITY FOR COMPLETE ASSESSMENT DAILY ESTIMATED NEEDS: Needs based on Obese, critical care, wound 64.5kg abw 22-28 kcals/kg 0457-0876 total kcals 1.25-2 g protein/kg 81-129 g total protein 25-30 mL/kg 2930-4218 total fluid mLs NUTRITION DIAGNOSIS: Swallowing difficulty R/T respiratory status as evidenced by pt trach-vent dep, GT dep. CURRENT TF:Glucerna 1.5 @ 50ml/hr x 22 hrs ENTERAL NUTRITION RECOMMENDATIONS: Vital AF 1.2 @ 60ml/hr x 22 hrs to provide 1320ml, 1584kcal, 99g prot, 1070ml free water - Consider Vital 1.2, elemental (pt adm w/ coffee ground emesis). Start @30ml/hr for 6 hrs, advance as tolerated to goal. - Flush per MD. HOB over 30 degrees - Hold 1 hr before and after Synthroid - W/ continued TF tolerance, okay to maintain current TF order of Glucerna 1.5 @ 50ml/hr x 22 hrs ADDITIONAL RECOMMENDATIONS: * Calibrated bed scale weights for accurate CBW * Skin integrity: TF @ goal provides 100% RDI * Monitor lytes daily w/ TF, replete as needed * Check HgA1C, need for carb control formula-> on niss * On keppra, monitor for dilantin . .
--- NOTE | 2020-10-10 15:16 | NUR ---
CASE MANAGEMENT:REVIEW 10/10/20 SI: UGIB. COFFEE GROUND EMESIS TRACH/VENT/GTUBE VS: T 97 HR 55 RR 22 B/P 106/69 SATS 98% ON MECH VENT FIO2 30 LABS: CL 109 BUN 21 IS: IV PROTONIX QD ZINC GT QD VIT C GT QD IRON GT BID KEPPRA GT Q12 SYNTHROID GT QD DUONEB INH Q6HRS RTC : STEP DOWN UNIT DCP: FROM [facility]
[2020-10-10] MEDS ORDERED: NS 275ml ONE (15:17)
[2020-10-10] MEDS ORDERED: Tubing IV Secondary IV ONE (15:17)
--- NOTE | 2020-10-10 15:29 | Pulmonology Progress Note ---
Subjective ROS Limited/Unobtainable: No Interval Events: Heart rate 46 Constitutional: Reports: no symptoms HEENT: Repors: no symptoms Respiratory: Reports: no symptoms Cardiovascular: Reports: no symptoms Allergies: Coded Allergies: PEANUT (Verified Allergy, Unknown, 09/22/16) Objective Last 24 Hour Vital Signs Date Time Temp Pulse Resp B/P (MAP) Pulse Ox O2 Delivery O2 Flow Rate FiO2 10/10/20 12:00 97.7 55 22 106/69 (81) 98 10/10/20 12:00 57 10/10/20 12:00 Mechanical Ventilator 10/10/20 12:00 30 10/10/20 10:33 71 18 30 10/10/20 09:08 74 20 30 10/10/20 08:00 97.0 71 21 134/64 (87) 99 10/10/20 08:00 50 10/10/20 08:00 Mechanical Ventilator 10/10/20 08:00 30 10/10/20 07:44 77 21 30 10/10/20 05:18 73 18 30 10/10/20 04:35 79 10/10/20 04:35 30 10/10/20 04:00 Mechanical Ventilator 10/10/20 04:00 44 10/10/20 04:00 97.7 73 18 145/63 (90) 95 10/10/20 01:10 67 18 30 10/10/20 00:00 30 10/10/20 00:00 99.3 59 20 126/83 (97) 94 10/10/20 00:00 47 10/10/20 00:00 Mechanical Ventilator 10/09/20 23:10 60 18 30 10/09/20 20:06 56 20 30 10/09/20 20:00 62 10/09/20 20:00 99.5 94 20 147/72 (97) 93 10/09/20 20:00 Mechanical Ventilator 10/09/20 20:00 30 10/09/20 16:00 79 10/09/20 16:00 Mechanical Ventilator 10/09/20 16:00 30 10/09/20 15:32 99.5 95 20 129/63 (85) 97 Intake and Output 10/09/20 10/10/20 19:00 07:00 Intake Total 800 ml 750 ml Output Total 400 ml 400 ml Balance 400 ml 350 ml Intake Oral 200 ml 200 ml Free Water 0 ml Tube Feeding 600 ml 550 ml Output Urine Total 400 ml 400 ml # Bowel Movements 1 General Appearance: no acute distress HEENT: atraumatic Respiratory: lungs clear Cardiovascular: normal rate Laboratory Tests 10/09/20 16:19: POC Whole Blood Glucose 95 10/09/20 19:51: POC Whole Blood Glucose 86 10/09/20 23:41: POC Whole Blood Glucose 94 10/10/20 04:40: White Blood Count 6.5, Red Blood Count 3.64L, Hemoglobin 11.7L, Hematocrit 37.1, Mean Corpuscular Volume 102H, Mean Corpuscular Hemoglobin 32.1H, Mean Corpuscular Hemoglobin Concent 31.4L, Red Cell Distribution Width 15.0H, Platelet Count 146L, Mean Platelet Volume 12.5H, Neutrophils (%) (Auto) 62.0, Lymphocytes (%) (Auto) 23.1, Monocytes (%) (Auto) 9.0, Eosinophils (%) (Auto) 5.1H, Basophils (%) (Auto) 0.8, Sodium Level 145, Potassium Level 4.1, Chloride Level 109H, Carbon Dioxide Level 32, Anion Gap 4L, Blood Urea Nitrogen 21H, C reatinine 0.6, Estimat Glomerular Filtration Rate > 60, Glucose Level 92, Calcium Level 9.7 10/10/20 05:27: POC Whole Blood Glucose 103 Current Medications Medications (Trade) Dose Ordered Sig/Boubacar Route PRN Reason Start Time Stop Time Status Last Admin Dose Admin Acetaminophen (Tylenol) 650 mg Q4H PRN GT Mild Pain (Pain Scale 1-3) 10/07/20 07:15 11/06/20 01:59 Acetaminophen (Tylenol) 650 mg Q4H PRN GT Temp >100.5 10/07/20 07:15 11/06/20 01:59 Albuterol/ Ipratropium (Combivent Respimat) 1 puff EVERY 3 HOURS PRN INH Shortness of Breath 10/07/20 02:00 11/06/20 01:59 Albuterol/ Ipratropium (Combivent Respimat) 1 puff Q6HRT INH 10/07/20 07:00 11/06/20 06:59 10/10/20 13:11 Ascorbic Acid (Vitamin C) 500 mg DAILY GT 10/07/20 09:00 3/5/21 08:59 10/10/20 08:17 Dextrose (Dextrose 50%) 25 ml Q30M PRN IV Hypoglycemia 10/07/20 19:30 01/05/21 19:29 Dextrose (Dextrose 50%) 50 ml Q30M PRN IV Hypoglycemia 10/07/20 19:30 01/05/21 19:29 Docusate Sodium (Colace) 100 mg DAILY GT 10/07/20 09:00 11/06/20 08:59 10/10/20 08:18 Ferrous Sulfate (Feosol) 300 mg BID GT 10/07/20 09:00 01/05/21 08:59 10/10/20 08:17 Insulin Aspart (NovoLOG) Inject as per sliding sca... Q6HR SUBQ 10/07/20 12:00 01/05/21 11:59 Levetiracetam (Keppra) 750 mg Q12HR GT 10/07/20 09:00 11/06/20 08:59 10/10/20 08:17 Levothyroxine Sodium (Synthroid) 150 mcg DAILY GT 10/07/20 09:00 11/06/20 08:59 10/10/20 08:18 Pantoprazole (Protonix) 40 mg DAILY IVP 10/08/20 09:00 11/07/20 08:59 10/10/20 08:18 Simethicone (Mylicon) 80 mg Q6H PRN GT GAS DISCOMFORT 10/07/20 02:00 01/05/21 01:59 Zinc Sulfate (Zinc Sulfate) 220 mg DAILY GT 10/07/20 09:00 10/12/20 09:00 10/10/20 08:17 Assessment/Plan Assessment/Plan 1. Chronic respiratory failure. 2. Chronic G-tube. - G tube replaced 3. Seizure disorder. 4. Chronic bradycardia. 5. Mild anemia. - stool OB negative 6. Full Code. 7. Hypokalemia 8. COVID-19 negative 9. Coffee ground emesis - Stable H&H - Further GI procedure on hold per GI DISCUSSION: 1. Continue Keppra. 2. Continue current vent settings, FiO2 is at 35%. 3. Consulted GI for history of coffee-grounds emesis. 4. Continue home medications. 5. Cardiology following. Dw daughter Laura Bowling. Pt to be discharged back to SNF once cleared by GI. No code status change. Grabiel Hogan MD Oct 10, 2020 15:29
--- NOTE | 2020-10-10 16:45 | NUR ---
DISCHARGE PLANNING: NOTE CALL PLACED TO [facility] CONFIRMING BED ASSIGNMENT. SHE WILL HAVE TO CONTACT [facility] TO CONFIRM THAT THEY CAN ACCEPT THIS PT. MESSAGE SENT TO [facility] TO CONFIRM BED ASSIGNMENT. [facility] WILL HAVE TO SEE IF HE IS ABLE TO ACCEPT THIS PATIENT TODAY D/T RECENT SURVEY Addendum: 10/10/20 at 1737 by Marlena Odom F/U CALL PLACED TO [facility] TO CONFIRM BED ASSIGNMENT. AWAITING CALL BACK
--- NOTE | 2020-10-10 19:20 | NUR ---
NURSE HAND-OFF REPORT: Important Events on Shift:D/C order to [facility] (waiting for bed) Patient Status: Stable/ full Code Diet: Gtube Glucerna 1.5 @ 50 Pending Orders: Na Pending Results/Labs:NA Pending notification:NA Latest Vital Signs: Temperature 97.9 , Pulse 61 , B/P 133 /60 , Respiratory Rate 21 , O2 SAT 98 , Mechanical Ventilator, O2 Flow Rate . Vital Sign Comment: Stable EKG Rhythm: SR with BBB Rhythm change?: N Notified?: Y -Dr Holden BROWN Response: No New Orders Received Latest Davis Fall Score: 30 Fall Risk: Medium Risk Safety Measures: Call light Within Reach, Bed Alarm Zone 2, Side Rails Side Rails x2, Bed position Low and Locked. Fall Precautions: Yellow Socks Report given to CESAR Moreno.
--- NOTE | 2020-10-10 19:28 | NUR ---
NURSE NOTES: Received pt from CESAR Edwards, pt is awake and confused, pt has trach to hansel AC 18 TV 450 FIO2 30% PEEP 5, Pt has g tube in place is working well. pt has Newman cath in place is working well. pt is on continues heart monitoring. pt has intact iv access LAC 20G SL and R Wrist 20G SL. all needs attended, bed is locked and is in the lowest position, call light within easy reach. will continue to monitor.
[2020-10-11 04:00] VITALS: BP 111/54
[2020-10-11] MEDS: NovoLOG Insulin Flexpen SUBQ SCH ×4 (05:53→23:19)
[2020-10-11 06:44] LABS: EOSINOPHILS % (AUTO) 4.6 % (0.0-3.0); HEMATOCRIT 36.9 % (37.0-47.0); HEMOGLOBIN 11.6 G/DL (12.0-16.0); LYMPHOCYTES % (AUTO) 20.5 % (20.0-45.0); MEAN CORPUSCULAR VOLUME 102 FL (80-99); MONOCYTES % (AUTO) 10.2 % (1.0-10.0); NEUTROPHILS % (AUTO) 63.7 % (45.0-75.0); PLATELET COUNT 145 K/UL (150-450); RED BLOOD COUNT 3.61 M/UL (4.20-5.40); RED CELL DISTRIBUTION WIDTH 15.2 % (11.6-14.8); WHITE BLOOD COUNT 7.7 K/UL (4.8-10.8)
--- NOTE | 2020-10-11 06:58 | NUR ---
NURSE HAND-OFF REPORT: Important Events on Shift:Plan to discharge . Patient Status: Diet: Pending Orders: Pending Results/Labs: Pending MD notification: Latest Vital Signs: Temperature 98.2 , Pulse 82 , B/P 111 /54 , Respiratory Rate 20 , O2 SAT 98 , Mechanical Ventilator, O2 Flow Rate . Vital Sign Comment: EKG Rhythm: 2nd Degree HB Type I Rhythm change?: N MD Notified?: Y -Dr Holden BROWN Response: No New Orders Received Latest Davis Fall Score: 30 Fall Risk: Medium Risk Safety Measures: Call light Within Reach, Bed Alarm Zone 2, Side Rails Side Rails x2, Bed position Low and Locked. Fall Precautions: Yellow Socks Report given to . pt is awake and stable, no stress noted. endorsed plan of care, endorsed to monitor HR and F/U D/C.
[2020-10-11 07:00] LABS: ANION GAP 5 mmol/L (5-15); BLOOD UREA NITROGEN 25 mg/dL (7-18); CALCIUM 9.4 MG/DL (8.5-10.1); CARBON DIOXIDE 32 MMOL/L (21-32); CHLORIDE 110 MMOL/L (98-107); CREATININE 0.6 MG/DL (0.55-1.30); POTASSIUM 4.2 MMOL/L (3.5-5.1); SODIUM 147 MMOL/L (136-145)
--- NOTE | 2020-10-11 07:11 | General Progress Note ---
Subjective ROS Limited/Unobtainable: No Allergies: Coded Allergies: PEANUT (Verified Allergy, Unknown, 09/22/16) Objective Last 24 Hour Vital Signs Date Time Temp Pulse Resp B/P (MAP) Pulse Ox O2 Delivery O2 Flow Rate FiO2 10/11/20 04:00 98.2 82 20 111/54 (73) 98 10/11/20 04:00 Mechanical Ventilator 10/11/20 04:00 30 10/11/20 03:31 51 10/11/20 01:21 56 18 30 10/11/20 00:00 30 10/10/20 23:50 Mechanical Ventilator 10/10/20 23:48 98.1 72 24 105/47 (66) 98 10/10/20 23:44 107 10/10/20 20:00 100 10/10/20 20:00 97.9 77 24 151/78 (102) 98 10/10/20 19:44 30 10/10/20 19:42 Mechanical Ventilator 10/10/20 18:42 61 21 30 10/10/20 16:57 55 19 30 10/10/20 16:00 Mechanical Ventilator 10/10/20 16:00 83 10/10/20 16:00 97.9 48 19 133/60 (84) 98 10/10/20 16:00 30 10/10/20 15:32 62 22 30 10/10/20 12:00 97.7 55 22 106/69 (81) 98 10/10/20 12:00 57 10/10/20 12:00 Mechanical Ventilator 10/10/20 12:00 30 10/10/20 10:33 71 18 30 10/10/20 09:08 74 20 30 10/10/20 08:00 97.0 71 21 134/64 (87) 99 10/10/20 08:00 50 10/10/20 08:00 Mechanical Ventilator 10/10/20 08:00 30 10/10/20 07:44 77 21 30 Intake and Output 10/10/20 10/11/20 19:00 07:00 Intake Total 900 ml 950 ml Output Total 300 ml 450 ml Balance 600 ml 500 ml Free Water 300 ml 400 ml Tube Feeding 600 ml 550 ml Output Urine Total 300 ml 450 ml # Bowel Movements 1 Laboratory Tests 10/10/20 23:30: POC Whole Blood Glucose [Pending] 10/11/20 05:25: POC Whole Blood Glucose [Pending] 10/11/20 06:00: White Blood Count 7.7, Red Blood Count 3.61L, Hemoglobin 11.6L, Hematocrit 36.9L , Mean Corpuscular Volume 102H, Mean Corpuscular Hemoglobin 32.0H, Mean Corpuscular Hemoglobin Concent 31.3L, Red Cell Distribution Width 15.2H, Platelet Count 145L, Mean Platelet Volume 11.7H, Neutrophils (%) (Auto) 63.7, Lymphocytes (%) (Auto) 20.5, Monocytes (%) (Auto) 10.2H, Eosinophils (%) (Auto) 4.6H, Basophils (%) (Auto) 1.0, Sodium Level 147H, Potassium Level 4.2, Chloride Level 110H, Carbon Dioxide Level 32, Anion Gap 5, Blood Urea Nitrogen 25H, Creatinine 0.6, Estimat Glomerular Filtration Rate > 60, Glucose Level 96, Calcium Level 9.4 Height (Feet): 5 Height (Inches): 6.00 Weight (Pounds): 214 General Appearance: no apparent distress EENT: normal ENT inspection Neck: supple Cardiovascular: normal rate Respiratory/Chest: decreased breath sounds Abdomen: normal bowel sounds, non tender, soft Extremities: non-tender Assessment/Plan Status: stable Assessment/Plan: Assessment/Plan: 1. History of asthma. 2. History of COPD. 3. History of CVA. 4. History of dysphagia with G-tube. 5. Respiratory failure with chronic trach. 6. History of seizure disorder. 7. Hypertension. 8. Diabetes. 9. Diverticulosis. 10. History of encephalopathy. 11. coffee ground emesis stable H&H since 08/2020 GTF reglan ppi labs in am neg stool ob hold GI procedures for now Wilmer Cardenas MD Oct 11, 2020 07:11
--- NOTE | 2020-10-11 07:42 | NUR ---
NURSE NOTES: Received report from CESAR Moreno. Patient in bed resting, no active s/s cardiac, respiratory distress noticed at this time. Patient AOx0-1, open eyes spontaneously, unable to follow command, SB to SR 35-60s. Patient trach to vent, Shiley 8 AC 18 TV 450 Fio2 30% PEEP 5 O2 sat 95% at this time. Patient on GT Glucerna 1.5 @ 50ml/h, patent, intact. IV on left AC 20G, right wrist 20G, asymptomatic, patent, intact. Endorsed awaiting for placement. Bed in lowest position, side rails upx3 and padded , call light within reach, bed alarm on, Will continue to monitor.
[2020-10-11 08:00] VITALS: BP 109/54
[2020-10-11] MEDS: levETIRAcetam 500mg/5ml Liquid GT SCH ×2 (08:29→20:18)
[2020-10-11] MEDS: Pantoprazole Inj IVP SCH (08:30)
[2020-10-11] MEDS: Docusate 100mg/10ml Liq GT SCH (08:30)
[2020-10-11] MEDS: Zinc Sulfate 220mg GT SCH (08:30)
[2020-10-11] MEDS: Ascorbic Acid 500mg tab GT SCH (08:30)
[2020-10-11] MEDS: Ferrous Sulfate 300 MG/5 ML UDC GT SCH ×2 (08:30→17:03)
--- NOTE | 2020-10-11 08:30 | NUR ---
called [facility] conv. to follow up with discharge pt. talk to [facility] ADMITTING CO-ORDENATOR IN [place] HIS TELPHONE NO [phone] STATE HE HAVE TO CALL [facility] TOMORROW TO GET APPROVAL TO ACCEPT THE PT.
--- NOTE | 2020-10-11 11:19 | Pulmonology Progress Note ---
Subjective ROS Limited/Unobtainable: No Interval Events: Heart rate 46 Constitutional: Reports: no symptoms HEENT: Repors: no symptoms Respiratory: Reports: no symptoms Cardiovascular: Reports: no symptoms Allergies: Coded Allergies: PEANUT (Verified Allergy, Unknown, 09/22/16) Objective Last 24 Hour Vital Signs Date Time Temp Pulse Resp B/P (MAP) Pulse Ox O2 Delivery O2 Flow Rate FiO2 10/11/20 08:00 Mechanical Ventilator 10/11/20 08:00 30 10/11/20 08:00 98.1 67 18 109/54 (72) 95 10/11/20 08:00 45 10/11/20 07:00 68 20 98 Mechanical Ventilator 30 64 20 30 10/11/20 04:00 98.2 82 20 111/54 (73) 98 10/11/20 04:00 Mechanical Ventilator 10/11/20 04:00 30 10/11/20 03:31 51 10/11/20 01:21 56 18 30 10/11/20 00:00 30 10/10/20 23:50 Mechanical Ventilator 10/10/20 23:48 98.1 72 24 105/47 (66) 98 10/10/20 23:44 107 10/10/20 20:00 100 10/10/20 20:00 97.9 77 24 151/78 (102) 98 10/10/20 19:44 30 10/10/20 19:42 Mechanical Ventilator 10/10/20 18:42 61 21 30 10/10/20 16:57 55 19 30 10/10/20 16:00 Mechanical Ventilator 10/10/20 16:00 83 10/10/20 16:00 97.9 48 19 133/60 (84) 98 10/10/20 16:00 30 10/10/20 15:32 62 22 30 10/10/20 12:00 97.7 55 22 106/69 (81) 98 10/10/20 12:00 57 10/10/20 12:00 Mechanical Ventilator 10/10/20 12:00 30 Intake and Output0 10/10/20 10/11/20 19:00 07:00 Intake Total 900 ml 950 ml Output Total 300 ml 450 ml Balance 600 ml 500 ml Free Water 300 ml 400 ml Tube Feeding 600 ml 550 ml Output Urine Total 300 ml 450 ml # Bowel Movements 1 General Appearance: no acute distress HEENT: atraumatic Respiratory: lungs clear Cardiovascular: normal rate Laboratory Tests 10/10/20 23:30: POC Whole Blood Glucose [Pending] 10/11/20 05:25: POC Whole Blood Glucose [Pending] 10/11/20 06:00: White Blood Count 7.7, Red Blood Count 3.61L, Hemoglobin 11.6L, Hematocrit 36.9L , Mean Corpuscular Volume 102H, Mean Corpuscular Hemoglobin 32.0H, Mean Corpuscular Hemoglobin Concent 31.3L, Red Cell Distribution Width 15.2H, Elma telet Count 145L, Mean Platelet Volume 11.7H, Neutrophils (%) (Auto) 63.7, Lymphocytes (%) (Auto) 20.5, Monocytes (%) (Auto) 10.2H, Eosinophils (%) (Auto) 4.6H, Basophils (%) (Auto) 1.0, Sodium Level 147H, Potassium Level 4.2, Chloride Level 110H, Carbon Dioxide Level 32, Anion Gap 5, Blood Urea Nitrogen 25H, Creatinine 0.6, Estimat Glomerular Filtration Rate > 60, Glucose Level 96, Calcium Level 9.4 Current Medications Medications (Trade) Dose Ordered Sig/Boubacar Route PRN Reason Start Time Stop Time Status Last Admin Dose Admin Acetaminophen (Tylenol) 650 mg Q4H PRN GT Mild Pain (Pain Scale 1-3) 10/07/20 07:15 11/06/20 01:59 Acetaminophen (Tylenol) 650 mg Q4H PRN GT Temp >100.5 10/07/20 07:15 11/06/20 01:59 Albuterol/ Ipratropium (Combivent Respimat) 1 puff EVERY 3 HOURS PRN INH Shortness of Breath 10/07/20 02:00 11/06/20 01:59 Albuterol/ Ipratropium (Combivent Respimat) 1 puff Q6HRT INH 10/07/20 07:00 11/06/20 06:59 10/11/20 07:00 Ascorbic Acid (Vitamin C) 500 mg DAILY GT 10/07/20 09:00 11/06/20 08:59 10/11/20 08:30 Dextrose (Dextrose 50%) 25 ml Q30M PRN IV Hypoglycemia 10/07/20 19:30 01/05/21 19:29 Dextrose (Dextrose 50%) 50 ml Q30M PRN IV Hypoglycemia 10/07/20 19:30 01/05/21 19:29 Docusate Sodium (Colace) 100 mg DAILY GT 10/07/20 09:00 11/06/20 08:59 10/10/20 08:18 Ferrous Sulfate (Feosol) 300 mg BID GT 10/07/20 09:00 01/05/21 08:59 10/11/20 08:30 Insulin Aspart (NovoLOG) Inject as per sliding sca... Q6HR SUBQ 10/07/20 12:00 01/05/21 11:59 Levetiracetam (Keppra) 750 mg Q12HR GT 10/07/20 09:00 11/06/20 08:59 10/11/20 08:29 Levothyroxine Sodium (Synthroid) 150 mcg DAILY GT 10/07/20 09:00 11/06/20 08:59 10/11/20 08:30 Pantoprazole (Protonix) 40 mg DAILY IVP 10/08/20 09:00 11/07/20 08:59 10/11/20 08:30 Simethicone (Mylicon) 80 mg Q6H PRN GT GAS DISCOMFORT 10/07/20 02:00 01/05/21 01:59 Zinc Sulfate (Zinc Sulfate) 220 mg DAILY GT 10/12/20 09:00 10/17/20 09:00 UNV Assessment/Plan Assessment/Plan 1. Chronic respiratory failure. 2. Chronic G-tube. - G tube replaced 3. Seizure disorder. 4. Chronic bradycardia. 5. Mild anemia. - stool OB negative 6. Full Code. 7. Hypokalemia 8. COVID-19 negative 9. Coffee ground emesis - Stable H&H - Further GI procedure on hold per GI DISCUSSION: 1. Continue Keppra. 2. Continue current vent settings, FiO2 is at 35%. 3. Consulted GI for history of coffee-grounds emesis. 4. Continue home medications. 5. Cardiology following. Will dc back to SNF Grabiel Hogan MD Oct 11, 2020 11:19
[2020-10-11 12:00] VITALS: BP 104/46
[2020-10-11 16:00] VITALS: BP 104/53
--- NOTE | 2020-10-11 19:05 | NUR ---
NURSE NOTES: Dr. Hatch aware of Sodium, 147 NNO.
--- NOTE | 2020-10-11 19:10 | NUR ---
NURSE NOTES: Received report from CESAR Najera. Pt is alert by name, oriented x 1. Non verbal. Trach to vent with settings as ordered. Fio2 30%. No facial grimace noted. With gould with yellow urine noted with sediments. SCD- on. Per Am nurse SB with with 2nd AVB family refusing to do pacemaker at this time. For Discharge tomorrow, for pending clearance per CM. No hypotension noted. Bed in lowest position, call light within reach. Continue to plan of care.
--- NOTE | 2020-10-11 19:18 | NUR ---
NURSE HAND-OFF REPORT: Important Events on Shift: awaiting to discharge Patient Status: stable Diet: Glucerna 1.5@50ml/h Pending Orders: na Pending Results/Labs:na Pending notification:na Latest Vital Signs: Temperature 97.4 , Pulse 79 , B/P 104 /53 , Respiratory Rate 20 , O2 SAT 98 , Mechanical Ventilator, O2 Flow Rate . 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 Fall Precautions: Yellow Socks Report given to CESAR Dennis.
--- NOTE | 2020-10-11 19:59 | NUR ---
NURSE NOTES: Combivent respimat per RT.
[2020-10-11 20:00] VITALS: BP 143/55
--- NOTE | 2020-10-11 21:17 | Cardiology Progress Note ---
Assessment/Plan Assessment/Plan 1. Coffee ground emesis Hgb has been stable 2. Sinus bradycardia 3. Respiratory failure s/p trach 4. HFpEF, acute on chronic diastolic HF with preserved EF 55%, mild MR BNP 388 Diuresis with IV Lasix spot dose 5. Seizure disorder 6. s/p CVA, aphasic Not a candidate for PPM, will treat medically. In SR, rate at time of exam 40's. Remains full code. Subjective ROS Limited/Unobtainable: Yes Subjective Resting comfortably, no acute events Objective Last 24 Hour Vital Signs Date Time Temp Pulse Resp B/P (MAP) Pulse Ox O2 Delivery O2 Flow Rate FiO2 10/11/20 20:00 88 10/11/20 20:00 Mechanical Ventilator 10/11/20 20:00 30 10/11/20 20:00 97.5 70 20 143/55 (84) 92 10/11/20 19:20 71 24 30 10/11/20 16:00 30 10/11/20 16:00 65 10/11/20 16:00 97.4 79 20 104/53 (70) 98 10/11/20 16:00 Mechanical Ventilator 10/11/20 15:00 69 18 30 10/11/20 12:00 97.2 79 20 104/46 (65) 96 10/11/20 12:00 30 10/11/20 12:00 Mechanical Ventilator 10/11/20 12:00 54 10/11/20 11:50 75 19 30 10/11/20 08:00 Mechanical Ventilator 10/11/20 08:00 30 10/11/20 08:00 98.1 67 18 109/54 (72) 95 10/11/20 08:00 45 10/11/20 07:00 68 20 30 10/11/20 04:00 98.2 82 20 111/54 (73) 98 10/11/20 04:00 Mechanical Ventilator 10/11/20 04:00 30 10/11/20 03:31 51 10/11/20 01:21 56 18 30 10/11/20 00:00 30 10/10/20 23:50 Mechanical Ventilator 10/10/20 23:48 98.1 72 24 105/47 (66) 98 10/10/20 23:44 107 Intake and Output 10/10/20 10/11/20 19:00 07:00 Intake Total 900 ml 1000 ml Output Total 300 ml 450 ml Balance 600 ml 550 ml Free Water 300 ml 400 ml Tube Feeding 600 ml 600 ml Output Urine Total 300 ml 450 ml # Bowel Movements 1 Laboratory Tests Test 10/10/20 23:30 10/11/20 05:25 10/11/20 06:00 10/11/20 11:25 POC Whole Blood Glucose Pending Pending 99 MG/DL (74-106) White Blood Count 7.7 K/UL (4.8-10.8) Red Blood Count 3.61 M/UL (4.20-5.40) L Hemoglobin 11.6 G/DL (12.0-16.0) L Hematocrit 36.9 % (37.0-47.0) L Mean Corpuscular Volume 102 FL (80-99) H Mean Corpuscular Hemoglobin 32.0 PG (27.0-31.0) H Mean Corpuscular Hemoglobin Concent 31.3 G/DL (32.0-36.0) L Red Cell Distribution Width 15.2 % (11.6-14.8) H Platelet Count 145 K/UL (150-450) L Mean Platelet Volume 11.7 FL (6.5-10.1) H Neutrophils (%) (Auto) 63.7 % (45.0-75.0) Lymphocytes (%) (Auto) 20.5 % (20.0-45.0) Monocytes (%) (Auto) 10.2 % (1.0-10.0) H Eosinophils (%) (Auto) 4.6 % (0.0-3.0) H Basophils (%) (Auto) 1.0 % (0.0-2.0) Sodium Level 147 MMOL/L (136-145) H Potassium Level 4.2 MMOL/L (3.5-5.1) Chloride Level 110 MMOL/L (98-107) H Carbon Dioxide Level 32 MMOL/L (21-32) Anion Gap 5 mmol/L (5-15) Blood Urea Nitrogen 25 mg/dL (7-18) H Creatinine 0.6 MG/DL (0.55-1.30) Estimat Glomerular Filtration Rate > 60 mL/min (>60) Glucose Level 96 MG/DL (74-106) Calcium Level 9.4 MG/DL (8.5-10.1) Test 10/11/20 17:08 POC Whole Blood Glucose 84 MG/DL (74-106) Penny Hatch PA-C Oct 11, 2020 21:17
--- NOTE | 2020-10-11 23:41 | NUR ---
NURSE NOTES: Suctioned secretions, o2 sat0 98%. No pain noted. Continue to plan of care.
[2020-10-12] VITALS: BP 110/70
--- NOTE | 2020-10-12 01:39 | NUR ---
NURSE NOTES: Combivent per RT.
[2020-10-12 04:00] VITALS: BP 126/55
[2020-10-12] MEDS: NovoLOG Insulin Flexpen SUBQ SCH ×3 (05:49→17:05)
--- NOTE | 2020-10-12 05:52 | NUR ---
NURSE NOTES: Cleaned pt, sponge bath given. Noted dark stool, pt is taking feso4. MD aware in AM. No pain noted. Not in distress. o2 sat- 100%,
--- NOTE | 2020-10-12 06:26 | General Progress Note ---
Subjective ROS Limited/Unobtainable: No Allergies: Coded Allergies: PEANUT (Verified Allergy, Unknown, 09/22/16) Objective Last 24 Hour Vital Signs Date Time Temp Pulse Resp B/P (MAP) Pulse Ox O2 Delivery O2 Flow Rate FiO2 10/12/20 04:00 Mechanical Ventilator 10/12/20 04:00 78 10/12/20 04:00 97.4 73 18 126/55 (78) 98 10/12/20 04:00 30 10/12/20 02:04 85 25 30 10/12/20 00:00 97.7 84 17 110/70 (83) 96 10/12/20 00:00 Mechanical Ventilator 10/12/20 00:00 77 10/11/20 20:00 88 10/11/20 20:00 Mechanical Ventilator 10/11/20 20:00 30 10/11/20 20:00 97.5 70 20 143/55 (84) 92 10/11/20 19:20 71 24 30 10/11/20 16:00 30 10/11/20 16:00 65 10/11/20 16:00 97.4 79 20 104/53 (70) 98 10/11/20 16:00 Mechanical Ventilator 10/11/20 15:00 69 18 30 10/11/20 12:00 97.2 79 20 104/46 (65) 96 10/11/20 12:00 30 10/11/20 12:00 Mechanical Ventilator 10/11/20 12:00 54 10/11/20 11:50 75 19 30 10/11/20 08:00 Mechanical Ventilator 10/11/20 08:00 30 10/11/20 08:00 98.1 67 18 109/54 (72) 95 10/11/20 08:00 45 10/11/20 07:00 68 20 30 Intake and Output 10/11/20 10/12/20 19:00 07:00 Intake Total 720 ml 650 ml Output Total 550 ml 450 ml Balance 170 ml 200 ml Free Water 120 ml 100 ml Tube Feeding 600 ml 550 ml Output Urine Total 550 ml 450 ml # Bowel Movements 1 2 Laboratory Tests 10/11/20 11:25: POC Whole Blood Glucose 99 10/11/20 17:08: POC Whole Blood Glucose 84 10/11/20 23:16: POC Whole Blood Glucose 103 10/12/20 05:29: POC Whole Blood Glucose 95 Height (Feet): 5 Height (Inches): 6.00 Weight (Pounds): 214 General Appearance: no apparent distress EENT: normal ENT inspection Neck: supple Cardiovascular: normal rate Respiratory/Chest: decreased breath sounds Abdomen: normal bowel sounds, non tender, soft Extremities: non-tender Assessment/Plan Status: stable Assessment/Plan: Assessment/Plan: 1. History of asthma. 2. History of COPD. 3. History of CVA. 4. History of dysphagia with G-tube. 5. Respiratory failure with chronic trach. 6. History of seizure disorder. 7. Hypertension. 8. Diabetes. 9. Diverticulosis. 10. History of encephalopathy. 11. coffee ground emesis stable H&H since 08/2020 GTF reglan ppi labs in am neg stool ob hold GI procedures for now Wilmer Cardenas MD Oct 12, 2020 06:26
--- NOTE | 2020-10-12 07:00 | NUR ---
NURSE NOTES: received patient report from princess farrell. patient is on bed awake. on vent at prescribed rate, no acute events last night, afebrile. tube feedings running, patent& tolerating. on gould, draining yellow urine. contact preacution. will follow plan of care.
--- NOTE | 2020-10-12 07:05 | NUR ---
NURSE HAND-OFF REPORT: Important Events on Shift: Pt Sodium- 147- MD aware, NNO. Pt with Discharge planning. SB- Fmaily refused of Pacemaker Patient Status: Guarded and stable Diet: GTF Pending Orders: None Pending Results/Labs: None Pending MD notification: None Latest Vital Signs: Temperature 97.4 , Pulse 78 , B/P 126 /55 , Respiratory Rate 18 , O2 SAT 98 , Mechanical Ventilator, O2 Flow Rate . Vital Sign Comment: WNL EKG Rhythm: SR with BBB Rhythm change?: Y Notified?: N -Dr Holden BROWN Response: No New Orders Received Latest Davis Fall Score: 40 Fall Risk: Medium Risk Safety Measures: Call light Within Reach, Bed Alarm Zone 2, Side Rails Side Rails x2, Bed position Low and Locked. Fall Precautions: Yellow Socks Report given to [CESAR Kunz].
[2020-10-12 08:00] VITALS: BP 126/49
--- NOTE | 2020-10-12 08:42 | Pulmonology Progress Note ---
Subjective ROS Limited/Unobtainable: No Interval Events: none major reported per nursing Constitutional: Reports: no symptoms HEENT: Repors: no symptoms Respiratory: Reports: no symptoms Cardiovascular: Reports: no symptoms Allergies: Coded Allergies: PEANUT (Verified Allergy, Unknown, 09/22/16) Objective Last 24 Hour Vital Signs Date Time Temp Pulse Resp B/P (MAP) Pulse Ox O2 Delivery O2 Flow Rate FiO2 10/12/20 07:51 30 10/12/20 07:24 77 21 30 10/12/20 04:00 Mechanical Ventilator 10/12/20 04:00 78 10/12/20 04:00 97.4 73 18 126/55 (78) 98 10/12/20 04:00 30 10/12/20 02:04 85 25 30 10/12/20 00:00 97.7 84 17 110/70 (83) 96 10/12/20 00:00 Mechanical Ventilator 10/12/20 00:00 77 10/11/20 20:00 88 10/11/20 20:00 Mechanical Ventilator 10/11/20 20:00 30 10/11/20 20:00 97.5 70 20 143/55 (84) 92 10/11/20 19:20 71 24 30 10/11/20 16:00 30 10/11/20 16:00 65 10/11/20 16:00 97.4 79 20 104/53 (70) 98 10/11/20 16:00 Mechanical Ventilator 10/11/20 15:00 69 18 30 10/11/20 12:00 97.2 79 20 104/46 (65) 96 10/11/20 12:00 30 10/11/20 12:00 Mechanical Ventilator 10/11/20 12:00 54 10/11/20 11:50 75 19 30 Intake and Output 10/11/20 10/12/20 19:00 07:00 Intake Total 720 ml 700 ml Output Total 550 ml 450 ml Balance 170 ml 250 ml Free Water 120 ml 100 ml Tube Feeding 600 ml 600 ml Output Urine Total 550 ml 450 ml # Bowel Movements 1 2 General Appearance: no acute distress HEENT: atraumatic Respiratory: lungs clear Cardiovascular: normal rate Laboratory Tests 10/11/20 11:25: POC Whole Blood Glucose 99 10/11/20 17:08: POC Whole Blood Glucose 84 10/11/20 23:16: POC Whole Blood Glucose 103 10/12/20 05:29: POC Whole Blood Glucose 95 Current Medications Medications (Trade) Dose Ordered Sig/Boubacar Route PRN Reason Start Time Stop Time Status Last Admin Dose Admin Acetaminophen (Tylenol) 650 mg Q4H PRN GT Mild Pain (Pain Scale 1-3) 10/07/20 07:15 11/06/20 01:59 Acetaminophen (Tylenol) 650 mg Q4H PRN GT Temp >100.5 10/07/20 07:15 11/06/20 01:59 Albuterol/ Ipratropium (Combivent Respimat) 1 puff EVERY 3 HOURS PRN INH Shortness of Breath 10/07/20 02:00 11/06/20 01:59 Albuterol/ Ipratropium (Combivent Respimat) 1 puff Q6HRT INH 10/07/20 07:00 11/06/20 06:59 10/10/20 19:14 Ascorbic Acid (Vitamin C) 500 mg DAILY GT 10/07/20 09:00 11/06/20 08:59 10/11/20 08:30 Dextrose (Dextrose 50%) 25 ml Q30M PRN IV Hypoglycemia 10/07/20 19:30 01/05/21 19:29 Dextrose (Dextrose 50%) 50 ml Q30M PRN IV Hypoglycemia 10/07/20 19:30 01/05/21 19:29 Docusate Sodium (Colace) 100 mg DAILY GT 10/07/20 09:00 11/06/20 08:59 10/10/20 08:18 Ferrous Sulfate (Feosol) 300 mg BID GT 10/07/20 09:00 01/05/21 08:59 10/11/20 17:03 Insulin Aspart (NovoLOG) Inject as per sliding sca... Q6HR SUBQ 10/07/20 12:00 01/05/21 11:59 Levetiracetam (Keppra) 750 mg Q12HR GT 10/07/20 09:00 11/06/20 08:59 10/11/20 20:18 Levothyroxine Sodium (Synthroid) 150 mcg DAILY GT 10/07/20 09:00 11/06/20 08:59 10/11/20 08:30 Pantoprazole (Protonix) 40 mg DAILY IVP 10/08/20 09:00 11/07/20 08:59 10/11/20 08:30 Simethicone (Mylicon) 80 mg Q6H PRN GT GAS DISCOMFORT 10/07/20 02:00 01/05/21 01:59 Zinc Sulfate (Zinc Sulfate) 220 mg DAILY GT 10/12/20 09:00 10/17/20 09:00 Assessment/Plan Assessment/Plan 1. Chronic respiratory failure. 2. Chronic G-tube. - G tube replaced 3. Seizure disorder. 4. Chronic bradycardia. 5. Mild anemia. - stool OB negative - stable H&H 6. Full Code. 7. Hypokalemia 8. COVID-19 negative 9. Coffee ground emesis - Stable H&H - Further GI procedure on hold per GI DISCUSSION: 1. Continue Keppra. 2. Continue current vent settings, FiO2 is at 35%. 3. Consulted GI for history of coffee-grounds emesis. 4. Continue home medications. 5. Cardiology following. Will dc back to SNF Dc pending placement The care for this patient was discussed with my supervising physician Time spent for this case was approximately 31 minutes Carlo Park Oct 12, 2020 08:42
[2020-10-12] MEDS: levETIRAcetam 500mg/5ml Liquid GT SCH ×2 (08:45→21:55)
[2020-10-12] MEDS: Docusate 100mg/10ml Liq GT SCH (08:45)
[2020-10-12] MEDS: Pantoprazole Inj IVP SCH (08:45)
[2020-10-12] MEDS: Ascorbic Acid 500mg tab GT SCH (08:45)
[2020-10-12] MEDS: Zinc Sulfate 220mg GT SCH (08:45)
[2020-10-12] MEDS: Ferrous Sulfate 300 MG/5 ML UDC GT SCH ×2 (08:45→17:08)
--- NOTE | 2020-10-12 10:44 | NUR ---
CASE MANAGEMENT:REVIEW 10/12/20 SI: UGIB. COFFEE GROUND EMESIS TRACH/VENT/GTUBE 97.7 92 17 126/49 96% ON VENT SUPPORT W/30% FIO2 IS: IV PROTONIX QD ZINC GT QD VIT C GT QD IRON GT BID KEPPRA GT Q12 SYNTHROID GT QD DUONEB INH Q6HRS : STEP DOWN UNIT DCP: FROM [facility]: [facility] BEEN ON LOCK DOWN BY THE HEALTH DEPARTMENT....WE ARE WAITING FOR ACCEPTANCE
--- NOTE | 2020-10-12 11:15 | Neurology Progress Note ---
Interim History Interim History ROS Limited/Unobtainable: No Events: pt awake Objective Physical Exam Last Vital Signs Date Time Temp Pulse Resp B/P (MAP) Pulse Ox O2 Delivery O2 Flow Rate FiO2 10/12/20 08:00 Mechanical Ventilator 10/12/20 08:00 79 10/12/20 08:00 97.7 17 126/49 (74) 96 10/12/20 07:51 30 Laboratory Tests Test 10/11/20 11:25 10/11/20 17:08 10/11/20 23:16 10/12/20 05:29 POC Whole Blood Glucose 99 MG/DL (74-106) 84 MG/DL (74-106) 103 MG/DL (74-106) 95 MG/DL (74-106) Neurologic Exam Objective PHYSICAL EXAMINATION: GENERAL: Reveals an obese female, non communicative, awake smiles and nods heads VITAL SIGNS: Reviewed Neuro: The patient is lying in bed, nods her head when spoken to has left facial droop, pupils are round, equal, sluggish Motor: no involuntary movements bilateral upper and lower extremities unable to assess, left hemiparesis withdraws to pain bedbound patient. Impression/Recommendations Status: stable Diagnostic Impression IMAGING STUDIES: Abdominal pelvis CT was obtained, which shows distention of the colon, otherwise no pathology noted. She has basilar infiltrates. ASSESSMENT AND REC'S: 1. Seizure Disorder --> continue Keppra 750mg po BID she is getting 7.5ml via g tube --> no reported seizure recently --> reviewed meds from nursing facility --> seizure precautions, no further rec's 2. Chronic respiratory failure. --> she is on vent and dependent 3. Chronic G-tube for dysphagia 4. Quadraplegia 5.Chronic bradycardia. 6. Mild anemia. 7. Hx of CVA Thank you for allowing us to participate in patients care plan of care was reviewed with Dr. Pringle who agrees with plan of care Wanda Ramey NP Oct 12, 2020 11:15
[2020-10-12 12:00] VITALS: BP 110/65
[2020-10-12 16:00] VITALS: BP 127/62
--- NOTE | 2020-10-12 19:27 | NUR ---
NURSE HAND-OFF REPORT: Important Events on Shift:stable, awaitign acceptance from facility Patient Status: full code Diet: tube feeds Pending Orders: [] Pending Results/Labs:[] Pending MD notification:[] Latest Vital Signs: Temperature 97.7 , Pulse 47 , B/P 127 /62 , Respiratory Rate 18 , O2 SAT 98 , Mechanical Ventilator, O2 Flow Rate . Vital Sign Comment: stable EKG Rhythm: 2nd Degree HB Type I Rhythm change?: Y Notified?: N -Dr Holden BROWN Response: No New Orders Received Latest Davis Fall Score: 40 Fall Risk: Medium Risk Safety Measures: Call light Within Reach, Bed Alarm Zone 2, Side Rails Side Rails x2, Bed position Low and Locked. Fall Precautions: Yellow Socks Report given to kalpesh farrell.
--- NOTE | 2020-10-12 19:40 | NUR ---
Received report from CESAR Kunz. Assumed care of patient.
[2020-10-12 20:00] VITALS: BP 148/73
--- NOTE | 2020-10-12 22:00 | NUR ---
Pt had large BM, Black (on iron), changed and repositioned. Patient VSS will continue to monitor.
[2020-10-13] VITALS: BP 148/70
[2020-10-13] MEDS: NovoLOG Insulin Flexpen SUBQ SCH ×4 (00:30→17:42)
--- NOTE | 2020-10-13 02:00 | NUR ---
Pt remains stable through night. Sleeping. VSS. Will continue to monitor. No BM, clean and dry
[2020-10-13 04:00] VITALS: BP 129/71
[2020-10-13 05:54] LABS: BASOPHILS % (AUTO) 2.9 % (0.0-2.0); EOSINOPHILS % (AUTO) 3.9 % (0.0-3.0); HEMATOCRIT 36.6 % (37.0-47.0); HEMOGLOBIN 11.6 G/DL (12.0-16.0); LYMPHOCYTES % (AUTO) 20.3 % (20.0-45.0); MEAN CORPUSCULAR VOLUME 104 FL (80-99); MONOCYTES % (AUTO) 7.2 % (1.0-10.0); NEUTROPHILS % (AUTO) 65.8 % (45.0-75.0); PLATELET COUNT 163 K/UL (150-450); RED BLOOD COUNT 3.53 M/UL (4.20-5.40); RED CELL DISTRIBUTION WIDTH 16.3 % (11.6-14.8)
--- NOTE | 2020-10-13 06:10 | NUR ---
Pt remains stable this am. No BM, clean and dry. Repositioned.
--- NOTE | 2020-10-13 07:23 | NUR ---
Report given to Day RN who assumed care of patient.
--- NOTE | 2020-10-13 07:27 | Cardiology Progress Note ---
Assessment/Plan Status: stable Assessment/Plan 1. Coffee ground emesis Hgb has been stable 2. Sinus bradycardia - improved 3. Respiratory failure s/p trach 4. HFpEF, acute on chronic diastolic HF with preserved EF 55%, mild MR BNP 388 Diuresis with IV Lasix spot dose 5. Seizure disorder 6. s/p CVA, aphasic Not a candidate for PPM, will treat medically. In SR, rate has been variable but improved. Remains full code. Subjective ROS Limited/Unobtainable: Yes Subjective Resting comfortably, no acute events Objective Last 24 Hour Vital Signs Date Time Temp Pulse Resp B/P (MAP) Pulse Ox O2 Delivery O2 Flow Rate FiO2 10/13/20 04:00 Mechanical Ventilator 10/13/20 04:00 30 10/13/20 04:00 99.0 90 22 129/71 (90) 99 10/13/20 03:45 96 21 30 10/13/20 03:24 93 10/13/20 00:00 Mechanical Ventilator 10/13/20 00:00 99.0 94 21 148/70 (96) 98 10/12/20 23:47 99 22 30 10/12/20 23:23 94 10/12/20 20:00 Mechanical Ventilator 10/12/20 20:00 98.6 90 20 148/73 (98) 98 10/12/20 20:00 30 10/12/20 19:34 85 24 30 10/12/20 19:11 88 10/12/20 16:00 Mechanical Ventilator 10/12/20 16:00 30 10/12/20 16:00 97.7 84 18 127/62 (83) 98 10/12/20 16:00 47 10/12/20 15:09 76 23 30 10/12/20 12:00 98.1 86 17 110/65 (80) 97 10/12/20 12:00 Mechanical Ventilator 10/12/20 12:00 30 10/12/20 12:00 57 10/12/20 11:17 79 22 30 10/12/20 08:00 Mechanical Ventilator 10/12/20 08:00 79 10/12/20 08:00 97.7 92 17 126/49 (74) 96 10/12/20 07:51 30 General Appearance: on vent Neck: no JVD Rhythm: NSR Cardiovascular: bradycardia Respiratory/Chest: no respiratory distress Extremities: trace edema Neurologic: aphasia Intake and Output 10/12/20 10/13/20 19:00 07:00 Intake Total 680 ml 550 ml Output Total 600 ml 625 ml Balance 80 ml -75 ml Free Water 80 ml Tube Feeding 600 ml 550 ml Output Urine Total 600 ml 625 ml # Bowel Movements 3 1 Laboratory Tests Test 10/12/20 11:34 10/12/20 17:04 10/13/20 00:30 10/13/20 03:30 POC Whole Blood Glucose 92 MG/DL (74-106) 77 MG/DL (74-106) 100 MG/DL (74-106) White Blood Count 6.0 K/UL (4.8-10.8) Red Blood Count 3.53 M/UL (4.20-5.40) L Hemoglobin 11.6 G/DL (12.0-16.0) L Hematocrit 36.6 % (37.0-47.0) L Mean Corpuscular Volume 104 FL (80-99) H Mean Corpuscular Hemoglobin 32.8 PG (27.0-31.0) H Mean Corpuscular Hemoglobin Concent 31.6 G/DL (32.0-36.0) L Red Cell Distribution Width 16.3 % (11.6-14.8) H Platelet Count 163 K/UL (150-450) Mean Platelet Volume 9.7 FL (6.5-10.1) Neutrophils (%) (Auto) 65.8 % (45.0-75.0) Lymphocytes (%) (Auto) 20.3 % (20.0-45.0) Monocytes (%) (Auto) 7.2 % (1.0-10.0) Eosinophils (%) (Auto) 3.9 % (0.0-3.0) H Basophils (%) (Auto) 2.9 % (0.0-2.0) H Penny Hatch PA-C Oct 13, 2020 07:27
[2020-10-13 08:00] VITALS: BP 122/59
--- NOTE | 2020-10-13 08:51 | General Progress Note ---
Subjective ROS Limited/Unobtainable: No Allergies: Coded Allergies: PEANUT (Verified Allergy, Unknown, 09/22/16) Objective Last 24 Hour Vital Signs Date Time Temp Pulse Resp B/P (MAP) Pulse Ox O2 Delivery O2 Flow Rate FiO2 10/13/20 08:00 30 10/13/20 08:00 Mechanical Ventilator 10/13/20 04:00 Mechanical Ventilator 10/13/20 04:00 30 10/13/20 04:00 99.0 90 22 129/71 (90) 99 10/13/20 03:45 96 21 30 10/13/20 03:24 93 10/13/20 00:00 Mechanical Ventilator 10/13/20 00:00 99.0 94 21 148/70 (96) 98 10/12/20 23:47 99 22 30 10/12/20 23:23 94 10/12/20 20:00 Mechanical Ventilator 10/12/20 20:00 98.6 90 20 148/73 (98) 98 10/12/20 20:00 30 10/12/20 19:34 85 24 30 10/12/20 19:11 88 10/12/20 16:00 Mechanical Ventilator 10/12/20 16:00 30 10/12/20 16:00 97.7 84 18 127/62 (83) 98 10/12/20 16:00 47 10/12/20 15:09 76 23 30 10/12/20 12:00 98.1 86 17 110/65 (80) 97 10/12/20 12:00 Mechanical Ventilator 10/12/20 12:00 30 10/12/20 12:00 57 10/12/20 11:17 79 22 30 Intake and Output 10/12/20 10/13/20 19:00 07:00 Intake Total 680 ml 550 ml Output Total 600 ml 625 ml Balance 80 ml -75 ml Free Water 80 ml Tube Feeding 600 ml 550 ml Output Urine Total 600 ml 625 ml # Bowel Movements 3 1 Laboratory Tests 10/12/20 11:34: POC Whole Blood Glucose 92 10/12/20 17:04: POC Whole Blood Glucose 77 10/13/20 00:30: POC Whole Blood Glucose 100 10/13/20 03:30: White Blood Count 6.0, Red Blood Count 3.53L, Hemoglobin 11.6L, Hematocrit 36.6L , Mean Corpuscular Volume 104H, Mean Corpuscular Hemoglobin 32.8H, Mean Corpuscular Hemoglobin Concent 31.6L, Red Cell Distribution Width 16.3H, Platelet Count 163, Mean Platelet Volume 9.7, Neutrophils (%) (Auto) 65.8, Lymphocytes (%) (Auto) 20.3, Monocytes (%) (Auto) 7.2, Eosinophils (%) (Auto) 3.9H, Basophils (%) (Auto) 2.9H Height (Feet): 5 Height (Inches): 6.00 Weight (Pounds): 214 General Appearance: no apparent distress EENT: normal ENT inspection Neck: supple Cardiovascular: normal rate Respiratory/Chest: decreased breath sounds Abdomen: normal bowel sounds, non tender, soft Extremities: non-tender Assessment/Plan Status: stable Assessment/Plan: Assessment/Plan: 1. History of asthma. 2. History of COPD. 3. History of CVA. 4. History of dysphagia with G-tube. 5. Respiratory failure with chronic trach. 6. History of seizure disorder. 7. Hypertension. 8. Diabetes. 9. Diverticulosis. 10. History of encephalopathy. 11. coffee ground emesis stable H&H since 08/2020 GTF reglan ppi labs in am neg stool ob hold GI procedures for now Wilmer Cardenas MD Oct 13, 2020 08:51
--- NOTE | 2020-10-13 09:10 | Pulmonology Progress Note ---
Subjective ROS Limited/Unobtainable: No Interval Events: none major reported per nursing Constitutional: Reports: no symptoms HEENT: Repors: no symptoms Respiratory: Reports: no symptoms Cardiovascular: Reports: no symptoms Allergies: Coded Allergies: PEANUT (Verified Allergy, Unknown, 09/22/16) Objective Last 24 Hour Vital Signs Date Time Temp Pulse Resp B/P (MAP) Pulse Ox O2 Delivery O2 Flow Rate FiO2 10/13/20 08:00 30 10/13/20 08:00 Mechanical Ventilator 10/13/20 04:00 Mechanical Ventilator 10/13/20 04:00 30 10/13/20 04:00 99.0 90 22 129/71 (90) 99 10/13/20 03:45 96 21 30 10/13/20 03:24 93 10/13/20 00:00 Mechanical Ventilator 10/13/20 00:00 99.0 94 21 148/70 (96) 98 10/12/20 23:47 99 22 30 10/12/20 23:23 94 10/12/20 20:00 Mechanical Ventilator 10/12/20 20:00 98.6 90 20 148/73 (98) 98 10/12/20 20:00 30 10/12/20 19:34 85 24 30 10/12/20 19:11 88 10/12/20 16:00 Mechanical Ventilator 10/12/20 16:00 30 10/12/20 16:00 97.7 84 18 127/62 (83) 98 10/12/20 16:00 47 10/12/20 15:09 76 23 30 10/12/20 12:00 98.1 86 17 110/65 (80) 97 10/12/20 12:00 Mechanical Ventilator 10/12/20 12:00 30 10/12/20 12:00 57 10/12/20 11:17 79 22 30 Intake and Output 10/12/20 10/13/20 19:00 07:00 Intake Total 680 ml 550 ml Output Total 600 ml 625 ml Balance 80 ml -75 ml Free Water 80 ml Tube Feeding 600 ml 550 ml Output Urine Total 600 ml 625 ml # Bowel Movements 3 1 General Appearance: no acute distress HEENT: atraumatic Respiratory: lungs clear Cardiovascular: normal rate Laboratory Tests 10/12/20 11:34: POC Whole Blood Glucose 92 10/12/20 17:04: POC Whole Blood Glucose 77 10/13/20 00:30: POC Whole Blood Glucose 100 10/13/20 03:30: White Blood Count 6.0, Red Blood Count 3.53L, Hemoglobin 11.6L, Hematocrit 36.6L , Mean Corpuscular Volume 104H, Mean Corpuscular Hemoglobin 32.8H, Mean Corpuscular Hemoglobin Concent 31.6L, Red Cell Distribution Width 16.3H, Platelet Count 163, Mean Platelet Volume 9.7, Neutrophils (%) (Auto) 65.8, Lymphocytes (%) (Auto) 20.3, Monocytes (%) (Auto) 7.2, Eosinophils (%) (Auto) 3.9H, Basophils (%) (Auto) 2.9H Current Medications Medications (Trade) Dose Ordered Sig/Boubacar Route PRN Reason Start Time Stop Time Status Last Admin Dose Admin Acetaminophen (Tylenol) 650 mg Q4H PRN GT Mild Pain (Pain Scale 1-3) 10/07/20 07:15 11/06/20 01:59 Acetaminophen (Tylenol) 650 mg Q4H PRN GT Temp >100.5 10/07/20 07:15 11/06/20 01:59 Albuterol/ Ipratropium (Combivent Respimat) 1 puff EVERY 3 HOURS PRN INH Shortness of Breath 10/07/20 02:00 11/06/20 01:59 Albuterol/ Ipratropium (Combivent Respimat) 1 puff Q6HRT INH 10/07/20 07:00 11/06/20 06:59 10/10/20 19:14 Ascorbic Acid (Vitamin C) 500 mg DAILY GT 10/07/20 09:00 11/06/20 08:59 10/12/20 08:45 Dextrose (Dextrose 50%) 25 ml Q30M PRN IV Hypoglycemia 10/07/20 19:30 01/05/21 19:29 Dextrose (Dextrose 50%) 50 ml Q30M PRN IV Hypoglycemia 10/07/20 19:30 01/05/21 19:29 Docusate Sodium (Colace) 100 mg DAILY GT 10/07/20 09:00 11/06/20 08:59 10/12/20 08:45 Ferrous Sulfate (Feosol) 300 mg BID GT 10/07/20 09:00 01/05/21 08:59 10/12/20 17:08 Insulin Aspart (NovoLOG) Inject as per sliding sca... Q6HR SUBQ 10/07/20 12:00 01/05/21 11:59 Levetiracetam (Keppra) 750 mg Q12HR GT 10/07/20 09:00 11/06/20 08:59 10/12/20 21:55 Levothyroxine Sodium (Synthroid) 150 mcg DAILY GT 10/07/20 09:00 11/06/20 08:59 10/12/20 08:45 Pantoprazole (Protonix) 40 mg DAILY IVP 10/08/20 09:00 11/07/20 08:59 10/12/20 08:45 Simethicone (Mylicon) 80 mg Q6H PRN GT GAS DISCOMFORT 10/07/20 02:00 01/05/21 01:59 Zinc Sulfate (Zinc Sulfate) 220 mg DAILY GT 10/12/20 09:00 10/17/20 09:00 10/12/20 08:45 Assessment/Plan Assessment/Plan 1. Chronic respiratory failure. 2. Chronic G-tube. - G tube replaced 3. Seizure disorder. 4. Chronic bradycardia. 5. Mild anemia. - stool OB negative - stable H&H 6. Full Code. 7. Hypokalemia 8. COVID-19 negative 9. Coffee ground emesis - Stable H&H - Further GI procedure on hold per GI DISCUSSION: 1. Continue Keppra. 2. Continue current vent settings, FiO2 is at 35%. 3. GI recs noted re coffee-grounds emesis. 4. Continue home medications. 5. Cardiology following. Will dc back to SNF Dc pending placement The care for this patient was discussed with my supervising physician Time spent for this case was approximately 31 minutes Carlo Park Oct 13, 2020 09:10
[2020-10-13] MEDS: Zinc Sulfate 220mg GT SCH (09:11)
[2020-10-13] MEDS: Docusate 100mg/10ml Liq GT SCH (09:11)
[2020-10-13] MEDS: Ascorbic Acid 500mg tab GT SCH (09:11)
[2020-10-13] MEDS: Pantoprazole Inj IVP SCH (09:11)
[2020-10-13] MEDS: Ferrous Sulfate 300 MG/5 ML UDC GT SCH ×2 (09:11→18:34)
[2020-10-13] MEDS: levETIRAcetam 500mg/5ml Liquid GT SCH (09:11)
--- NOTE | 2020-10-13 09:38 | NUR ---
NURSE NOTES: g tube is leaking, SANDRA Park is aware and ordered to endorse Dr Cardenas, Dr Cardenas is aware and will come at noon to change it, pt is NPO now. will continue to close monitoring.
[2020-10-13 12:00] VITALS: BP 133/60
--- NOTE | 2020-10-13 12:42 | NUR ---
NURSE NOTES: Dr Cardenas visited pt and change g tube F 20g and ordered KUB with g tube contrast noted and carried out. will continue to monitor.
--- NOTE | 2020-10-13 13:13 | NUR ---
RD ASSESSMENT & RECOMMENDATIONS SEE CARE ACTIVITY FOR COMPLETE ASSESSMENT DAILY ESTIMATED NEEDS: Needs based on Obese, critical care, wound 64.5kg abw 22-28 kcals/kg 8914-1456 total kcals 1.25-2 g protein/kg 81-129 g total protein 25-30 mL/kg 5018-2359 total fluid mLs NUTRITION DIAGNOSIS: Swallowing difficulty R/T respiratory status as evidenced by pt trach-vent dep, GT dep. CURRENT TF:Glucerna 1.5 @ 50ml/hr x 22 hrs ENTERAL NUTRITION RECOMMENDATIONS: Glucerna 1.5 @ 50ml/hr x 22 hrs to provide 1100ml, 1650kcal, 91g prot, 835ml free water - Resume TF when medically appropriate -> maintain current TF: meets 100% est kcalk/prot needs - Flush per MD. HOB over 30 degrees - Hold 1 hr before and after Synthroid ADDITIONAL RECOMMENDATIONS: * Calibrated bed scale weights for accurate CBW * Skin integrity: TF @ goal provides 100% RDI * Monitor lytes daily w/ TF, replete as needed * Check HgA1C, need for carb control formula-> on niss * On keppra, monitor for dilantin . .
--- NOTE | 2020-10-13 13:35 | NUR ---
CASE MANAGEMENT:REVIEW 10/13/20 SI: UGIB. COFFEE GROUND EMESIS TRACH/VENT/GTUBE 98.2 76 22 133/60 100% ON VENT SUPPORT W/30% FIO2 H/H-11.6/36.6 IS: IV PROTONIX QD ZINC GT QD VIT C GT QD IRON GT BID KEPPRA GT Q12 SYNTHROID GT QD DUONEB INH Q6HRS : STEP DOWN UNIT DCP: FROM [facility] PLAN: GTUBE LEAKING...GI AT BEDSIDE TO CHANGE TUBE....ABDOMINAL XRAY ORDERED ~ RESULTS PENDING POSSIBLE DISCHARGE AFTER XRAY RESULTS
--- NOTE | 2020-10-13 13:35 | NUR ---
INSURANCE CLINICALS/REVIEW FAXED TO [facility] (10/10-10/13) Fax clinicals: [phone] Scan (Dwight Oshea) Fax clinicals: [phone]
--- NOTE | 2020-10-13 14:05 | Neurology Progress Note ---
Interim History Interim History ROS Limited/Unobtainable: Yes Events: no acute events Objective Physical Exam Last Vital Signs Date Time Temp Pulse Resp B/P (MAP) Pulse Ox O2 Delivery O2 Flow Rate FiO2 10/13/20 12:37 63 10/13/20 12:00 Mechanical Ventilator 10/13/20 12:00 98.2 22 133/60 (84) 100 10/13/20 12:00 30 Laboratory Tests Test 10/12/20 17:04 10/13/20 00:30 10/13/20 03:30 10/13/20 11:15 POC Whole Blood Glucose 77 MG/DL (74-106) 100 MG/DL (74-106) White Blood Count 6.0 K/UL (4.8-10.8) Red Blood Count 3.53 M/UL (4.20-5.40) L Hemoglobin 11.6 G/DL (12.0-16.0) L Hematocrit 36.6 % (37.0-47.0) L Mean Corpuscular Volume 104 FL (80-99) H Mean Corpuscular Hemoglobin 32.8 PG (27.0-31.0) H Mean Corpuscular Hemoglobin Concent 31.6 G/DL (32.0-36.0) L Red Cell Distribution Width 16.3 % (11.6-14.8) H Platelet Count 163 K/UL (150-450) Mean Platelet Volume 9.7 FL (6.5-10.1) Neutrophils (%) (Auto) 65.8 % (45.0-75.0) Lymphocytes (%) (Auto) 20.3 % (20.0-45.0) Monocytes (%) (Auto) 7.2 % (1.0-10.0) Eosinophils (%) (Auto) 3.9 % (0.0-3.0) H Basophils (%) (Auto) 2.9 % (0.0-2.0) H Pro-B-Type Natriuretic Peptide 289 pg/mL (0-125) H Neurologic Exam Objective PHYSICAL EXAMINATION: GENERAL: Reveals an obese female, non communicative, awake smiles and nods heads VITAL SIGNS: Reviewed Neuro: The patient is lying in bed, nods her head when spoken to has left facial droop, pupils are round, equal, sluggish Motor: no involuntary movements bilateral upper and lower extremities unable to assess, left hemiparesis withdraws to pain bedbound patient. Impression/Recommendations Status: stable Diagnostic Impression IMAGING STUDIES: Abdominal pelvis CT was obtained, which shows distention of the colon, otherwise no pathology noted. She has basilar infiltrates. ASSESSMENT AND REC'S: 1. Seizure Disorder --> continue Keppra 750mg po BID she is getting 7.5ml via g tube --> no reported seizure recently --> reviewed meds from nursing facility --> seizure precautions, no further rec's 2. Chronic respiratory failure. --> she is on vent and dependent 3. Chronic G-tube for dysphagia 4. Quadraplegia 5.Chronic bradycardia. 6. Mild anemia. 7. Hx of CVA Thank you for allowing us to participate in patients care plan of care was re viewed with Dr. Pringle who agrees with plan of care Wanda Ramey NP Oct 13, 2020 14:05
--- NOTE | 2020-10-13 14:58 | NUR ---
RADIOLOGY DEPT., ABDOMEN FOR G-TUBE PLCMT COMPLETED.-P.DYE
--- NOTE | 2020-10-13 15:29 | Diagnostic Imaging Report ---
Indication: Reason For Exam: TUBE PLCMT Technique: Supine view of the abdomen after injection of water-soluble contrast into gastrostomy Comparison: Abdominal radiograph 01/17/2019. Also abdomen and pelvis CT scan dated 10/06/2020 Findings: Contrast opacifies the stomach. No contrast extravasation is demonstrated. A markedly dilated segment of sigmoid colon is demonstrated. This is also demonstrated on recent CT scan, is also noted although less dilated on prior radiograph. Impression: Satisfactory position of gastrostomy tube Dilated sigmoid colon, presumably chronic and functional in nature
[2020-10-13 16:00] VITALS: BP 150/76
--- NOTE | 2020-10-13 16:11 | NUR ---
NURSE NOTES: KUB result received now and Dr Cardenas is aware and g tube feeding started.
--- NOTE | 2020-10-13 16:23 | NUR ---
*-*DISCHARGE PLANNED*-* PATIENT HAS BEEN ACCEPTED AND WILL BE DISCHARGED TO: [facility] P: [phone] FOR NURSE TO NURSE REPORT ROOM# 217.A [facility] TRANSPORTATION SET FOR 5:45PM S/W [facility] [id number]. S/W PATIENTS DAUGHTER [facility], WHO IS IN AGREEMENT WITH DISCHARGE PLAN.
--- NOTE | 2020-10-13 18:51 | NUR ---
Finish Patcher: pt has D/C order, all discharge assessments and instructions done, pt is stable, V/S stable, no belongings, report given to SNF CESAR PASCUAL, pt's daughter is aware about D/C. iv access D/C. SANDRA Park ordered to D/C pt with [facility], g tube flushed and patent. waiting for ambulance.
--- NOTE | 2020-10-13 19:32 | NUR ---
NURSE NOTES: ambulance is here, pt is ready to go, no stress noted. report given to ambulance RN.
--- NOTE | 2020-10-15 15:54 | Discharge Summary ---
Discharge Summary Discharge Summary _ Date of admission: 10/06/2020 Date of discharge: 10/13/[address] Hogan History of Present Illness and Brief Hospital Course Ms. Donovan is an 80-year-old female with past medical history of anoxic brain injury, tracheostomy, ventilator dependence, and PEG, who presented to the ED for evaluation of coffee-ground emesis x1 episode. Patient's initial EKG showed sinus bradycardia at a rate of [address] elevation. Chest x-ray was notable for increased bilateral interstitial markings. CT of abdomen and pelvis showed bibasilar infiltrates/atelectasis without signs of volvulus or obstructive process. Given her history of seizure disorder, she was continued on Keppra. She was admitted to the hospital for work-up of her coffee-ground emesis. Of note, patient had been admitted to this hospital in the past and during the previous hospitalization, she was noted to be markedly bradycardic. She was a candidate for permanent pacemaker; however, the family declined pacemaker implant. Patient remained full code. She was again evaluated by a pathology collector who found her to be not a candidate for permanent pacemaker. Echocardiogram revealed ejection fraction of 55% with mild mitral regurgitation. She was continued to be diuresed. Despite initial presentation with coffee-ground emesis, patient's H&H remained stable. Stool occult blood test was negative. Further GI procedures were on hold. Patient was given Reglan and PPI. Her nutrition was continued with G- tube feeding. After the discussion of patient's medical condition with family, family requested the patient to be placed at the SNF. Patient was medically stable for discharge and was discharged back to SNF on 10/13/2020 in stable condition. Consultants: Cardiology SANDR[facility] Wanda Ramey, [facility] Dr. Cardenas Discharge Condition Stable Discharge Diet G-tube feeding Final diagnoses Coffee-ground emesis Sinus bradycardia Respiratory failure Chronic ventilator dependence Heart failure with preserved ejection fraction, EF 55% History of seizure History of CVA aphasia Quadriplegia Chronic bradycardia History of asthma History of COPD History of of dysphagia with G-tube Diverticulosis Diabetes mellitus Hypertension History of encephalopathy I have been assigned to dictate discharge summary for this account. Carlo Park Oct 15, 2020 15:54
== END 2020-10-13 19:42 | DRG 377 ==
LOC: EDBD 20:06 → EDBEDREQSVC 20:17 → EDBEDREQ 20:17 → EMR 20:30 → 2W 23:59 → EDBEDREQ 10-07 00:28
PROC: 5A1955Z Respiratory Ventilation, Greater than 96 Consecutive Hours (ICD-10-PCS; principal; 2020-10-06)
DX: K92.0 Hematemesis (principal); I50.33 Acute on chronic diastolic (congestive) heart failure; G82.50 Quadriplegia, unspecified; G93.1 Anoxic brain damage, not elsewhere classified; Z43.1 Encounter for attention to gastrostomy; J96.10 Chronic respiratory failure, unspecified whether with hypoxia or hypercapnia; Z99.11 Dependence on respirator [ventilator] status; R40.3 Persistent vegetative state; I69.320 Aphasia following cerebral infarction; E11.9 Type 2 diabetes mellitus without complications; I11.0 Hypertensive heart disease with heart failure; G40.909 Epilepsy, unspecified, not intractable, without status epilepticus; R00.1 Bradycardia, unspecified; Z43.0 Encounter for attention to tracheostomy; D64.9 Anemia, unspecified; K57.90 Diverticulosis of intestine, part unspecified, without perforation or abscess without bleeding; E87.6 Hypokalemia; J44.9 Chronic obstructive pulmonary disease, unspecified; I34.0 Nonrheumatic mitral (valve) insufficiency
CPT/HCPCS: 36415; 71045; 74018; 74177; 80048; 80053; 81003; 82270; 82553; 82962; 83605; 83690; 83735; 83880; 84100; 84484; 85025; 85610; 85730; 87040; 87081; 93005; 93970; 94002; 94003; 96361; 96374; 96375; 99285; J1815; J7030